=== PATIENT | male | born 1985 | race Caucasian/White ===

== ENCOUNTER → 2016-09-10 | Day surgery (SDC) | payer OTHER ==
[2016-09-06 10:55] VITALS: Ht 177.8 cm; Wt 72.5 kg
--- NOTE | 2016-09-06 11:32 | PAT Medication Instructions ---
Service Date Sep 06, 2016. Current Home Medication List Furosemide (Lasix), 20 MG PO DAILY PRN for EDEMA Insulin Lispro (Humalog), 0 SC AC PRN for SLIDING SCALE Insulin Nph (Humulin-N), 30 SC BID Lisinopril (Prinivil), 10 MG PO QAM Methadone Hcl (Dolophine), 55 MG PO DAILY Medication Instructions For Your Scheduled Surgery Methadone Hcl (Dolophine), 55 MG PO DAILY (check with prescribing physician for instructions) - Hold the following medications the morning of surgery: Furosemide (Lasix), 20 MG PO DAILY PRN for EDEMA Insulin Lispro (Humalog), 0 SC AC PRN for SLIDING SCALE Lisinopril (Prinivil), 10 MG PO QAM - Take the following medications as scheduled the night before surgery: Insulin Lispro (Humalog), 0 SC AC PRN for SLIDING SCALE - For Insulin Dependent Diabetic patients: Test blood sugar A.M. of surgery. - If Blood sugar greater than 150, take half of your regular dose of: Insulin Nph (Humulin-N), take 15 units - If Blood sugar less than 150, do not take any: Insulin Nph (Humulin-N) If you have any questions please call us at [phone] (Misa Grimm PA-C ) or [phone] or [phone]
[2016-09-06 12:12] LABS: MEAN CELL VOLUME 87.6 fL (80-100); MEAN CORPUSCULAR HEMOGLOBIN 29.7 pg (25-34); MEAN CORPUSCULAR HGB CONC 33.9 g/dl (32-36); MEAN PLATELET VOLUME 8.4 fL (7.4-10.4); PLATELET COUNT 236 K/uL (130-400); RED BLOOD COUNT 4.11 M/uL (4.7-6.1); WHITE BLOOD COUNT 6.77 K/uL (4.8-10.8)
[2016-09-06 12:35] LABS: ESTIMATED AVERAGE GLUCOSE 203 mg/dl; HA1C FLAG Normal (Normal)
[2016-09-06 12:42] LABS: BUN/CREATININE RATIO 12.5 (10-20); CALCIUM 9.2 mg/dl (8.5-10.1); CREATININE 1.9 mg/dl (0.60-1.40); POTASSIUM 4.7 mmol/L (3.5-5.1)
[~2016-09-10] VITALS: Ht 177.8 cm; Wt 72.5 kg
[~2016-09-10] MED LIST: 500ML BSSPLUS 0.5ML EPI1:1000 IRRIG ONE; ACET-1138 PO; ACETAMINOPHEN 325 MG TAB PO PRN; APR25 PO; ATROPINE SULFATE 0.1 MG/ML 5ML SYR IV PRN; ATROPINE SULFATE 1% OP OINT PER APPLICATION CHARGE ONE; BSS FLUSH ONE; BUPIVACAINE HCL 0.75% 10 ML AMP/VIAL ONE; CEFAZOLIN SOD 1 GM VIAL ONE; CRG625 PO; DEXAMETHASONE SOD INJ 4 MG/ML VIAL ONE; EpHEDrine SULFATE INJ 50 MG/ML AMP IV PRN; EpINEphrine INJ 1MG/ML AMP 1 MG/ML AMP ONE; FENTANYL CITRATE INJ 50 MCG/1 ML 2 ML VIAL IV PRN; FURO-85 PO; GLGKIT INJ; HMLI SC; HYALURONIDASE HUMAN 150 UNIT/ML INJ ONE; INDOCYANINE GREEN 25 MG/10 ML ONE; INSUINJ SC; LACTATED RINGER'S 1000ML 500 ML IV SCH; LIDOCAINE HCL 2% 2 ML VIAL (20MG/ML) ONE; LIDOCAINE MPF 4% INJ INJ ONE; LISI-461 PO; LISI5TAB PO; LSN40 PO; METH10TA2 PO; MIDAZOLAM HCL 1 MG/ML 2ML VIAL ONE; MRLP17 PO; NEOMYCIN/POLYMYX/DEXAMETH OP OINT PER APP CHARGE ONE; NRV/10 PO; OCUCOAT 1 ML SOLN IO ONE; ONDANSETRON INJ 2 MG/ML 2 ML VIAL IV PRN; ONDANSETRON INJ 2 MG/ML 2 ML VIAL ONE; PHENYLEPHRINE HCL INJ 10 MG/ML VIAL ONE; PROPARACAINE 0.5% OP SOLN PER DROP CHARGE OPL SCH; PROPARACAINE 0.5% OP SOLN PER DROP CHARGE OPR SCH; PROPOFOL IV EMULSION 10 MG/ML 20 ML VIAL IV ONE; TIMOLOL MALEATE 0.5% OP SOLN PER DROP CHARGE ONE; TRIAMCINOLONE ACETONIDE OPHTH 40 MG/ML VIAL STERILE IO ONE
[2016-09-10] MEDS: PHENYLEPHRINE HCL 2.5% OP SOLN PER DROP CHARGE OPL SCH ×2 (09:06→09:20)
[2016-09-10] MEDS: PHENYLEPHRINE HCL 2.5% OP SOLN PER DROP CHARGE OPR SCH ×2 (09:06→09:20)
[2016-09-10] MEDS: TROPICAMIDE 1% OP SOLN PER DROP CHARGE OPL SCH ×2 (09:09→09:22)
[2016-09-10] MEDS: TROPICAMIDE 1% OP SOLN PER DROP CHARGE OPR SCH ×2 (09:09→09:22)
--- NOTE | 2016-09-10 09:33 | History & Physical Bridge - SC ---
H&P Re-Evaluation Bridge Note: Pt has diabetic retinopathy in both eyes and is here for vitrectomy in left eye and laser in the right eye. I have examined the patient, reviewed the History & Physical and in the interval since the performance of the History & Physical I have noted the following changes of clinical significance: No changes noted
--- NOTE | 2016-09-10 11:32 | [facility] Operative Report ---
Operative Report Date of Service Sep 10, 2016. Operative Report PREOPERATIVE DIAGNOSIS: Diabetic retinopathy with vitreous hemorrhage, epiretinal membrane and diabetic macular edema, left eye. POSTOPERATIVE DIAGNOSIS: same. PROCEDURE: 1. Pars plana vitrectomy, 23 gauge. 2. Membrane peeling/ segmentation. 3. Endolaser. 4. Intravitreal Triescence. All to the left eye. CPT CODE: 00411 SURGEON: Burton Schroeder D.O. COMPLICATIONS: None. ESTIMATED BLOOD LOSS: None. SPECIMENS: None. ANESTHESIA: Retrobulbar block and LMA INDICATIONS FOR PROCEDURE: Surgery is indicated to decrease risk of vision loss and potentially improve vision. CONSENT: The risks, benefits and alternatives were discussed with the patient including but not limited to decreased visual acuity, failure to achieve desired results, loss of the eye, infection, pain, glaucoma, lens changes, retinal tears, retinal detachment, the need for more procedures, drooping of the eyelid, blindness, and double vision. The patient is aware of risks and consents to the surgery. Consent is signed and on the chart. OPERATION AND FINDINGS: The patient was brought to the operating room where the patient was identified by name, date, and medical record number. The surgical site was confirmed with the informed written consent. The patient was given general anesthesia by the anesthesiology team after which a 50:50 mixture of 4% lidocaine and 0.75% bupivacaine with hyaluronidase was administered in a standard retrobulbar fashion. A total of 4 ml was administered without difficulty.Attention was turned toward performing carr retinal photocoagulation to the right eye first with a laser indirect ophthalmoscope. See other dication for this. Next, attention was turned toward the left eye. The patient was then prepped and draped in the usual sterile manner for retinal surgery. A wire lid speculum was placed and an Stoney 23-gauge trocar cannula system was employed. The inferior temporal trocar cannula was first placed in an angled fashion 3.75mm posterior to the surgical limbus and the infusion cannula was inserted into this cannula after which the intravitreal position was verified prior to turning the infusion on. Two more trocar cannulas were then inserted in an angled fashion, one in the superior temporal, and one in the superior nasal quadrant both 3.75mm posterior to the surgical limbus. A light pipe and vitrector were then introduced into the eye and the BIOM wide angle viewing system was brought into place. Posterior inspection revealed severe proliferative diabetic retinopathy with fibrovascular membranes exerting traction on the macula. There was significant subhyaloid hemorrhage They were attached to the inferior temporal arcade and to the optic nerve. The vasculature was noted to be ischemic throughout most of the retina. Standard core vitrectomy was performed and all the vitreous attachments were peeled and segmented with the vitrector. The vitreous was insured to be totally detached from the posterior pole with the aid of the vitrector. Endocautery was used to stop bleeding on segmented fibrovascular stalks. Endolaser was used to perform fill-in carr retinal photocoagulation. At this point scleral depression was performed for 360 degrees and no retinal tears or detachments were noted. Intravitreal Triescence 2mg was injected into the eye and the trocar cannulas were then removed and a 8-0 vicryl suture was placed at the superior temporal site. All sclerotomy sites were noted to be watertight. The intraocular pressure was found to be within normal limits by palpation and subconjunctival injections of Kefzol and dexamethasone were administered inferiorly and superiorly. The wire lid speculum was removed. Maxitrol was applied to the surface of the eye. A light patch and shield were taped over the surface of the eye and the patient left the Operating Room in stable condition having tolerated the procedure well. DISPOSITION: The patient has an appointment the following morning in the Ophthalmology Clinic. The patient is to call immediately if there are any problems overnight. I attest to the content of the Intraoperative Record and any orders documented therein. Any exceptions are noted below.
--- NOTE | 2016-09-10 11:35 | [facility] Operative Report ---
Operative Report Date of Service Sep 10, 2016. Operative Report PREOPERATIVE DIAGNOSIS: Severe Diabetic retinopathy right eye. ICD10: E10.3411 POSTOPERATIVE DIAGNOSIS: same. PROCEDURE: 1. Carr retinal photocoagulation was performed with an indirect laser ophthalmoscope CPT 54663-32 SURGEON: Burton Schroeder D.O. COMPLICATIONS: None. ESTIMATED BLOOD LOSS: None. SPECIMENS: None. ANESTHESIA: Retrobulbar block and LMA INDICATIONS FOR PROCEDURE: Surgery is indicated to decrease risk of vision loss and potentially improve vision. CONSENT: The risks, benefits and alternatives were discussed with the patient including but not limited to decreased visual acuity, failure to achieve desired results, loss of the eye, infection, pain, glaucoma, lens changes, retinal tears, retinal detachment, the need for more procedures, drooping of the eyelid, blindness, and double vision. The patient is aware of risks and consents to the surgery. Consent is signed and on the chart. OPERATION AND FINDINGS: The patient was brought to the operating room where the patient was identified by name, date, and medical record number. The surgical site was confirmed with the informed written consent. The patient was given general anesthesia by the anesthesiology team. Attention was then turned toward performing carr retinal photocoagulation to the right eye with a laser indirect ophthalmoscope in the standard fashion. Next, attention was turned toward performing a vitrectomy on the left eye. See other dictation for details of this. The patient left the Operating Room in stable condition having tolerated the procedure well. DISPOSITION: The patient has an appointment the following morning in the Ophthalmology Clinic. The patient is to call immediately if there are any problems overnight. I attest to the content of the Intraoperative Record and any orders documented therein. Any exceptions are noted below.
--- NOTE | 2016-09-10 11:36 | Discharge Instructions-SurgCtr ---
Discharge Instructions Date of Service Sep 10, 2016. Visit Reason for Visit: Diabetic Retinopathy Discharge Discharge Diagnosis / Problem: diabetic retinopathy, both eyes Discharge Goals Goal(s): Improve function Activity Recommendations Activity Limitations: per Instructions/Follow-up section Anesthesia . Post Anesthesia Instructions: If you have had General Anesthesia or IV Sedation: * Do not drive today. * Resume driving when surgeon permits. * Do not make important decisions or sign legal documents today. * Call surgeon for: 1. Temperature elevations greater than 101 degrees F. 2. Uncontrollable pain. 3. Excessive bleeding. 4. Persistent nausea and vomiting. 5. Medication intolerance (nausea, vomiting or rash). * For nausea and vomiting use only clear liquids such as: tea, soda, bouillon until nausea subsides, then gradually increase diet as tolerated. * If you have any concerns or questions, call your surgeon's office. If physician is unavailable and it is an emergency, call 911 or go to the nearest emergency room. . Instructions / Follow-Up Instructions / Follow-Up * May take Tylenol if needed for discomfort. * Do NOT remove eye shield. * NO straining, heavy lifting (>15 pounds) or bending below waist. * Avoid getting water or soap directly into operative eye. * Do NOT rub eye. If you experience increasing eye pain not relieved by medication, please contact us immediately at [phone]. If you are unable to reach someone at the above number, call [phone] and ask to speak with the EYE DOCTOR TELEPHONE ENGINEER. Inform them that you are a Dr. Schroeder patient who had recent surgery. Diet Recommendations Home Diet: resume previous diet Procedures Procedures Performed: Left Eye Vitrectomy 23 Gauge; Right Eye Laser Pending Studies Studies pending at discharge: no Medical Emergencies . Who to Call and When: Medical Emergencies: If at any time you feel your situation is an emergency, please call 911 immediately. . Non-Emergent Contact Non-Emergency issues call your: Shaper Operator . . "Provider Documentation" section prepared by Burton Schroeder.
--- NOTE | 2016-09-10 12:18 | Anesthesia Progress Nt - [facility] ---
Anesthesia Post Op Note Date & Time Sep 10, 2016 at 12:17 Vital Signs Pain Intensity: 0 Vital Signs Past 12 Hours Date Time Temp Pulse Resp B/P Pulse Ox O2 Delivery O2 Flow Rate FiO2 09/10/16 11:37 36.3 84 20 156/107 100 Mask 6 09/10/16 08:51 36.8 93 20 163/108 98 Room Air Notes Mental Status: alert / awake / arousable, participated in evaluation Pt Amnestic to Procedure: Yes Nausea / Vomiting: adequately controlled Pain: adequately controlled Airway Patency, RR, SpO2: stable & adequate BP & HR: stable & adequate Hydration State: stable & adequate Anesthetic Complications: no major complications apparent please see attached anesthesia note
--- NOTE | 2016-09-10 12:26 | Anesthesiology Progress Note ---
Anesthesia Progress Note Date of Service Sep 10, 2016. Progress Notes Pt is s/p L eye vitrectomy and R eye laser. The pt had an uneventful rafaela- operative course. Upon emergence from anesthesia, the pt bit down on the LMA and soft bite block. This caused his tooth #9 to break. The tooth was saved. The pt had known poor dentition and a loose tooth. I spoke with the pt when he was more alert in PACU. He was aware of his poor dentition and stated that he had a dental consultation in a week to have his teeth pulled prior to receiving dentures. The pt was otherwise satisfied with his care today. Yoni Zhu was made aware of the situation and an event report was written up.
[2016-09-10 12:37] VITALS: TEMP 36.5
[2016-09-10 12:48] VITALS: BP 157/102; PULSE 74; O2SAT 100
== END | disposition home or self-care (01) ==
LOC: X.SURG 08:23
PROVIDERS: ATTEND Ophthalmology
DX: E10.3 Type 1 diabetes mellitus with ophthalmic complications (principal); I10 Essential (primary) hypertension; F17.210 Nicotine dependence, cigarettes, uncomplicated; Z82.49 Family history of ischemic heart disease and other diseases of the circulatory system; Z83.3 Family history of diabetes mellitus

== ENCOUNTER 2016-10-09 18:28 | Inpatient (IN) | payer OTHER ==
[~2016-10-09] VITALS: Ht 177.8 cm; Wt 70.6 kg
[~2016-10-09 18:28] MED LIST changes: -500ML BSSPLUS 0.5ML EPI1:1000 IRRIG ONE; -ACET-1138 PO; -ACETAMINOPHEN 325 MG TAB PO PRN; -APR25 PO; -ATROPINE SULFATE 0.1 MG/ML 5ML SYR IV PRN; -ATROPINE SULFATE 1% OP OINT PER APPLICATION CHARGE ONE; -BSS FLUSH ONE; -BUPIVACAINE HCL 0.75% 10 ML AMP/VIAL ONE; -CEFAZOLIN SOD 1 GM VIAL ONE; -CRG625 PO; -DEXAMETHASONE SOD INJ 4 MG/ML VIAL ONE; -EpHEDrine SULFATE INJ 50 MG/ML AMP IV PRN; -EpINEphrine INJ 1MG/ML AMP 1 MG/ML AMP ONE; -FENTANYL CITRATE INJ 50 MCG/1 ML 2 ML VIAL IV PRN; -GLGKIT INJ; -HYALURONIDASE HUMAN 150 UNIT/ML INJ ONE; -INDOCYANINE GREEN 25 MG/10 ML ONE; -LACTATED RINGER'S 1000ML 500 ML IV SCH; -LIDOCAINE HCL 2% 2 ML VIAL (20MG/ML) ONE; -LIDOCAINE MPF 4% INJ INJ ONE; -LISI-461 PO; -LSN40 PO; -MIDAZOLAM HCL 1 MG/ML 2ML VIAL ONE; -MRLP17 PO; -NEOMYCIN/POLYMYX/DEXAMETH OP OINT PER APP CHARGE ONE; -NRV/10 PO; -OCUCOAT 1 ML SOLN IO ONE; -ONDANSETRON INJ 2 MG/ML 2 ML VIAL IV PRN; -ONDANSETRON INJ 2 MG/ML 2 ML VIAL ONE; -PHENYLEPHRINE HCL INJ 10 MG/ML VIAL ONE; -PROPARACAINE 0.5% OP SOLN PER DROP CHARGE OPL SCH; -PROPARACAINE 0.5% OP SOLN PER DROP CHARGE OPR SCH; -PROPOFOL IV EMULSION 10 MG/ML 20 ML VIAL IV ONE; -TIMOLOL MALEATE 0.5% OP SOLN PER DROP CHARGE ONE; -TRIAMCINOLONE ACETONIDE OPHTH 40 MG/ML VIAL STERILE IO ONE
[2016-10-09] MEDS: DEXTROSE 50% 50 ML SYR ONE ×2 (18:50→19:00)
[2016-10-09] MEDS ORDERED: SODIUM CHLORIDE 0.9% 1000ML 1,000 ML IV STA ×2 (18:50)
[2016-10-09 19:00] LABS: HEMATOCRIT 34.8 % (42-52); MEAN CELL VOLUME 87.9 fL (80-100); MEAN CORPUSCULAR HEMOGLOBIN 30.6 pg (25-34); MEAN CORPUSCULAR HGB CONC 34.8 g/dl (32-36); MEAN PLATELET VOLUME 8.2 fL (7.4-10.4); PLATELET COUNT 264 K/uL (130-400); RED BLOOD COUNT 3.96 M/uL (4.7-6.1); WHITE BLOOD COUNT 11.88 K/uL (4.8-10.8)
--- NOTE | 2016-10-09 19:02 | EMERGENCY ROOM VISIT NOTE ---
History Report prepared by Judy: Ketan Brewer Under the Supervision of: Dr. Aspen Dillard M.D. First contact with patient: 18:45 Chief Complaint: URINARY SYMPTOMS Stated Complaint: FRONT/BACK PAIN, LEG BROWNING History of Present Illness The patient is a 31 year old male who presents to the Emergency Room with complaints of worsening urinary symptoms for the past month. The patient's girlfriend states that the patient has been complaining of back pain, abdominal pain, and urinary retention. She additionally states that the patient took his insulin prior to arrival, and he is diabetic. The patient states that he ate a sandwich for lunch earlier today. The girlfriend states that on arrival the patient became very sweaty, and he was not responding well. She states that the patient is not very good with his sugar medicine. The patient denies any recent sickness, urethral discharge, history of UTI, hematuria, and foot pain. The patient states that the skin over his stomach hurts to touch as well as the skin on his legs and shoulders. The patient states that he takes medication for opioid treatment. Source of History: patient, spouse/significant other Onset: past month Position: other (global) Quality: other (urinary symptoms) Timing: worsening Associated Symptoms: + abdominal pain, + back pain, + diaphoresis Review of Systems See HPI for pertinent positives & negatives. A total of 10 systems reviewed and were otherwise negative. Past Medical & Surgical Medical Problems: (1) ARF (acute renal failure) (2) Diabetes (3) HTN (hypertension) Family History Diabetes mellitus Hypertension Social History Smoking Status: Current Every Day Smoker Alcohol Use: none Drug Use: other Marital Status: in relationship Housing Status: lives with significant other Current/Historical Medications Scheduled Insulin Nph (Humulin-N), 30 SC BID Lisinopril (Prinivil), 10 MG PO QAM Methadone Hcl (Dolophine), 55 MG PO DAILY Scheduled PRN Furosemide (Lasix), 20 MG PO DAILY PRN for EDEMA Insulin Lispro (Humalog), 0 SC AC PRN for SLIDING SCALE Allergies Coded Allergies: No Known Allergies (Unverified , 10/09/16) Physical Exam Vital Signs Date Time Temp Pulse Resp B/P Pulse Ox O2 Delivery O2 Flow Rate FiO2 10/09/16 21:40 91 14 99 10/09/16 21:30 156/89 10/09/16 21:10 84 14 10/09/16 21:05 84 14 100 10/09/16 21:00 161/96 10/09/16 20:35 86 13 99 10/09/16 20:30 169/102 10/09/16 20:05 85 14 99 10/09/16 20:00 153/95 10/09/16 19:54 87 15 170/96 99 Room Air 10/09/16 19:52 170/96 10/09/16 19:07 86 10/09/16 19:05 85 13 100 10/09/16 19:00 170/99 10/09/16 18:58 86 15 100 10/09/16 18:57 84 20 153/98 99 Room Air 10/09/16 18:49 153/98 10/09/16 18:30 36.7 106 20 170/96 98 Room Air Physical Exam Vital signs reviewed. BG noted to be 21. General: Critically ill appearing, sweating, pale and altered. Noted to have a blood sugar of 23 on finger stick. HEENT: Moist mucous membranes. No scleral icterus, PERRLA, neck supple. Atraumatic. Cardiovascular: Regular rate and rhythm, no extra sounds. Pulmonary: Clear to auscultation bilaterally, normal work of breathing. Abdomen: Soft, nontender, nondistended, positive bowel sounds. Musculoskeletal: Atraumatic, no peripheral edema. Neurologic: Patient somnolent, minimally responsive. Answers some questions. Skin: Warm, dry, no rash Medical Decision & Procedures ER Provider Diagnostic Interpretation: Radiology results as stated below per my review and radiologist interpretation: CHEST ONE VIEW PORTABLE CLINICAL HISTORY: Back pain. Altered mental status. COMPARISON STUDY: Chest radiograph April 12, 2011. FINDINGS: Lung volumes are normal. Lungs are clear. There is no pneumothorax or pleural effusion. Cardiac size is normal. Mediastinal contours are normal. Pulmonary vascularity is normal. IMPRESSION: No acute cardiopulmonary findings. Electronically signed by: Yves Kilgore M.D. 10/09/2016 7:10 PM Dictated Date/Time: 10/09/2016 7:[address] OF THE ABDOMEN AND PELVIS WITHOUT CONTRAST CLINICAL HISTORY: Flank pain, urinary burning, IDDM. COMPARISON STUDY: No previous studies for comparison. TECHNIQUE: Axial images of the abdomen and pelvis were obtained without IV contrast. Images were reviewed in the axial, sagittal, and coronal planes. FINDINGS: Lung bases are clear. No renal, ureteral or bladder calculi are identified. There is no hydronephrosis or hydroureter. Evaluation the remainder of the abdomen and pelvis is suboptimal on this unenhanced exam. Unenhanced images of liver, spleen, adrenal glands and the pancreas are normal. There is no pneumatosis, free air or portal venous gas. There is a moderate amount of stool within the colon. There is no evidence for a bowel obstruction. The appendix is partially obscured but visualized portions are normal. There is no ascites. There is no lymphadenopathy or abscess. Skeletal structures are unremarkable. IMPRESSION: 1. No urinary calculi or hydronephrosis. 2. No acute process within the abdomen or pelvis although evaluation is suboptimal given the lack of contrast and paucity of intra-abdominal fat. 3. Moderate amount of stool within colon Electronically signed by: Yves Kilgore M.D. 10/09/2016 7:41 PM Laboratory Results Test 10/09/16 18:50 10/09/16 18:54 10/09/16 19:43 Magnesium Level 2.1 mg/dl (1.8-2.4) Total Bilirubin 0.2 mg/dl (0.2-1) Direct Bilirubin < 0.1 mg/dl (0-0.2) Aspartate Amino Transf (AST/SGOT) 28 U/L (15-37) Alanine Aminotransferase (ALT/SGPT) 43 U/L (12-78) Alkaline Phosphatase 90 U/L (45-117) Troponin I < 0.015 ng/ml (0-0.045) Total Protein 7.6 gm/dl (6.4-8.2) Albumin 3.8 gm/dl (3.4-5.0) Lipase 37 U/L (73-393) Bedside Hemoglobin 12.6 g/dl (14.0-18.0) Bedside Hematocrit 37 % (42-52) Bedside Sodium 143 mEq/L (135-144) Bedside Potassium 3.1 mEq/L (3.3-5.0) Bedside Chloride 105 mEq/L (101-112) Bedside Total CO2 25 mEq/l (24-31) Bedside Blood Urea Nitrogen 27 mg/dl (7-18) Bedside Creatinine 2.2 mg/dl (0.6-1.3) Bedside Glucose (other) < 20 mg/dl (70-99) Bedside Ionized Calcium (Liya) 1.20 mmol/l (1.12-1.32) Urine Color YELLOW Urine Appearance CLEAR (CLEAR) Urine pH 6.0 (4.5-7.5) Urine Specific [place] 1.014 (1.000-1.030) Urine Protein 3+ (NEG) Urine Glucose (UA) NEG (NEG) Urine Ketones NEG (NEG) Urine Occult Blood 1+ (NEG) Urine Nitrite NEG (NEG) Urine Bilirubin NEG (NEG) Urine Urobilinogen NEG (NEG) Urine Leukocyte Esterase NEG (NEG) Urine WBC (Auto) 0 /hpf (0-5) Urine RBC (Auto) 5-10 /hpf (0-4) Urine Hyaline Casts (Auto) 1-5 /lpf (0-5) Urine Epithelial Cells (Auto) 10-20 /lpf (0-5) Urine Bacteria (Auto) NEG (NEG) Laboratory results per my review. Medications Administered Medications (Trade) Dose Ordered Sig/Kody Route Start Time Stop Time Status Last Admin Dose Admin Dextrose 50 ml 50 ml STK-MED ONCE .ROUTE 10/09/16 18:46 10/09/16 18:47 DC 10/09/16 18:50 50 ML Sodium Chloride 1,000 ml @ 999 mls/hr Q1H1M STAT IV 10/09/16 18:50 10/09/16 19:50 DC 10/09/16 18:59 999 MLS/HR Sodium Chloride (Nss 1000ml) 1,000 ml @ 200 mls/hr Q5H STAT IV 10/09/16 18:50 10/09/16 21:16 DC 10/09/16 19:24 200 MLS/HR Potassium Chloride (Klor-Con M10) 40 meq STK-MED ONCE .ROUTE 10/09/16 21:30 10/09/16 21:31 DC 10/09/16 21:34 40 MEQ ECG Indication: other (urinary symptoms) Rate (beats per minute): 90 Findings: no acute ischemic change, no ectopy, other (Poor quality baseline for interpretation.) ED Course 1844: Past medical records reviewed. The patient was evaluated in room C2. A complete history and physical examination was performed. 1845: Dextrose 50% 50ml syringe IV 1850: Sodium Chloride 1000 ml @ 200 mls/hr IV, Sodium Chloride 1000 ml @ 999 mls /hr IV 2100: I reevaluated the patient, and he was resting. 2109: I discussed the patient's case with Dr. Holbrook. He is going to evaluate the patient for further treatment. Medical Decision Differential diagnosis: Etiologies such as metabolic, infection, hypoglycemia, electrolyte abnormalities , cardiac sources, intracerebral event, toxicologic, neurologic, UTI, pyelonephritis, appendicitis, as well as others were entertained. Pt was evaluated and appeared to be in no distress. IV access was obtained and lab work was drawn. Pt was given 1 amp of D50 with good results. He perked up and was able to respond appropriately. He is "good" at taking his insulin, but does not check his blood sugars. Pt is found to respond to IVF well. Pt creatinine is markedly elevated. CXR is clear. Abd pelvis CT is negative for acute inflammatory findings. He is noted to be slightly constipated, potentially accounting for his abd pain lately. Pt will be evaluated by the hospitalist service for admission and further management. Consults Time Called: 2107 Consulting Physician: Dr. Holbrook Returned Call: 2109 I discussed the patient's case with Dr. Holbrook. He is going to evaluate the patient for further treatment. Impression Primary Impression: Acute on chronic renal failure Additional Impressions: Poorly controlled diabetes mellitus Hypoglycemia Constipation Scribe Attestation The scribe's documentation has been prepared under my direction and personally reviewed by me in its entirety. I confirm that the note above accurately reflects all work, treatment, procedures, and medical decision making performed by me. Departure Information Dispostion Being Evaluated By Hospitalist Referrals No Doctor, Assigned (PCP) Patient Instructions My [facility] Problem Qualifiers
[2016-10-09 19:06] LABS: ISTAT CARBON DIOXIDE 25 mEq/l (24-31); ISTAT CHLORIDE 105 mEq/L (101-112); ISTAT CREATININE 2.2 mg/dl (0.6-1.3); ISTAT HEMATOCRIT 37 % (42-52); ISTAT HEMOGLOBIN 12.6 g/dl (14.0-18.0); ISTAT SODIUM 143 mEq/L (135-144)
--- NOTE | 2016-10-09 19:11 | DIAGNOSTIC IMAGING REPORT ---
CHEST ONE VIEW PORTABLE CLINICAL HISTORY: Back pain. Altered mental status. COMPARISON STUDY: Chest radiograph April 12, 2011. FINDINGS: Lung volumes are normal. Lungs are clear. There is no pneumothorax or pleural effusion. Cardiac size is normal. Mediastinal contours are normal. Pulmonary vascularity is normal. IMPRESSION: No acute cardiopulmonary findings. Electronically signed by: Yves Kilgore M.D. 10/09/2016 7:10 PM Dictated Date/Time: 10/09/2016 7:07 PM
[2016-10-09 19:21] LABS: BASO % 0.4 %; BASO ABS # 0.05 K/uL (0-0.2); COMPLETE YES; EOS % 3.1 %; IG% 0.2 %; LYMPH % 52.7 %; LYMPH ABS # 6.26 K/uL (1.2-3.4); MONO % 7.2 %; NEUT % 36.4 %
[2016-10-09 19:27] LABS: ALKALINE PHOSPHATASE 90 U/L (45-117); ALT/SGPT 43 U/L (12-78); AST/SGOT 28 U/L (15-37); BLOOD UREA NITROGEN 28 mg/dl (7-18); BUN/CREATININE RATIO 12.2 (10-20); CALCIUM 9.3 mg/dl (8.5-10.1); CARBON DIOXIDE 27 mmol/L (21-32); CHLORIDE 108 mmol/L (98-107); GLUCOSE 21 mg/dl (70-99); MAGNESIUM 2.1 mg/dl (1.8-2.4); POTASSIUM 3.2 mmol/L (3.5-5.1); SODIUM 144 mmol/L (136-145)
--- NOTE | 2016-10-09 19:42 | DIAGNOSTIC IMAGING REPORT ---
CT OF THE ABDOMEN AND PELVIS WITHOUT CONTRAST CLINICAL HISTORY: Flank pain, urinary burning, IDDM. COMPARISON STUDY: No previous studies for comparison. TECHNIQUE: Axial images of the abdomen and pelvis were obtained without IV contrast. Images were reviewed in the axial, sagittal, and coronal planes. FINDINGS: Lung bases are clear. No renal, ureteral or bladder calculi are identified. There is no hydronephrosis or hydroureter. Evaluation the remainder of the abdomen and pelvis is suboptimal on this unenhanced exam. Unenhanced images of liver, spleen, adrenal glands and the pancreas are normal. There is no pneumatosis, free air or portal venous gas. There is a moderate amount of stool within the colon. There is no evidence for a bowel obstruction. The appendix is partially obscured but visualized portions are normal. There is no ascites. There is no lymphadenopathy or abscess. Skeletal structures are unremarkable. IMPRESSION: 1. No urinary calculi or hydronephrosis. 2. No acute process within the abdomen or pelvis although evaluation is suboptimal given the lack of contrast and paucity of intra-abdominal fat. 3. Moderate amount of stool within colon Electronically signed by: Yves Kilgore M.D. 10/09/2016 7:41 PM Dictated Date/Time: 10/09/2016 7:35 PM
[2016-10-09 20:21] LABS: MANUAL MICROSCOPIC REQUIRED? NO; REVIEW REQ? NO; URINE APPEARANCE CLEAR (CLEAR); URINE BILIRUBIN NEG (NEG); URINE COLOR YELLOW; URINE NITRITE NEG (NEG); URINE SPECIFIC GRAVITY 1.014 (1.000-1.030); UROBILINOGEN NEG (NEG); ZZUR CULT IF INDIC CLEAN CATCH NO
[2016-10-09] MEDS ORDERED: POTASSIUM CHLORIDE 10 MEQ TABCR PO STA (21:14)
[2016-10-09] MEDS ORDERED: LACTATED RINGER'S 1000ML 1,000 ML IV SCH (21:15)
[2016-10-09] MEDS ORDERED: POTASSIUM CHLORIDE 10 MEQ TABCR ONE (21:30)
[2016-10-09] MEDS ORDERED: IV FLUIDS COMPLETED PRN (22:15)
[2016-10-09] MEDS ORDERED: GLUCOSE 40% GEL 15 GM TUBE PO PRN (22:30)
[2016-10-09] MEDS ORDERED: ACETAMINOPHEN 325 MG TAB PO PRN (22:30)
[2016-10-09] MEDS ORDERED: GLUCOSE 10 TABS/TUBE PO PRN (22:30)
[2016-10-09] MEDS ORDERED: LACTATED RINGER'S 1000ML 1,000 ML IV ONE (22:30)
[2016-10-09] MEDS ORDERED: ONDANSETRON INJ 2 MG/ML 2 ML VIAL IV PRN (22:30)
[2016-10-09] MEDS ORDERED: GLUCAGON FOR INJ 1 MG VIAL SQ PRN (22:30)
[2016-10-09] MEDS ORDERED: DEXTROSE 50% 50 ML SYR IV PRN (22:30)
[2016-10-09] MEDS ORDERED: AMLODIPINE BESYLATE 5 MG TAB PO STA (22:46)
[2016-10-09] MEDS ORDERED: DOCUSATE SODIUM 100 MG CAP PO STA (22:47)
[2016-10-09 23:23] VITALS: BP 198/112; PULSE 85
[2016-10-09 23:28] VITALS: BP 198/114; PULSE 88; TEMP 36.6; O2SAT 99; Ht 177.8 cm; Wt 70.6 kg
[2016-10-10] VITALS (7 sets, daily range): BP systolic 159–200; BP diastolic 89–118; PULSE 76–91; TEMP 36.5–36.8; O2SAT 96–99
[2016-10-10] MEDS: METHADONE HCL 10 MG TAB PO SCH (05:12)
[2016-10-10] MEDS ORDERED: AMLODIPINE BESYLATE 5 MG TAB PO ONE (05:20)
[2016-10-10 05:58] LABS: BASO % 0.6 %; BASO ABS # 0.04 K/uL (0-0.2); COMPLETE YES; EOS % 3.2 %; HEMATOCRIT 32.9 % (42-52); IG% 0.2 %; LYMPH ABS # 2.38 K/uL (1.2-3.4); MEAN CELL VOLUME 88.4 fL (80-100); MEAN CORPUSCULAR HEMOGLOBIN 30.1 pg (25-34); MEAN PLATELET VOLUME 8.4 fL (7.4-10.4); MONO % 10.2 %; NEUT % 47.8 %; PLATELET COUNT 202 K/uL (130-400); RED BLOOD COUNT 3.72 M/uL (4.7-6.1); WHITE BLOOD COUNT 6.27 K/uL (4.8-10.8)
[2016-10-10 06:48] LABS: BUN/CREATININE RATIO 12.6 (10-20); CALCIUM 8.7 mg/dl (8.5-10.1); CREATININE 1.9 mg/dl (0.60-1.40); FERRITIN 100.9 ng/ml (8.0-388.0); POTASSIUM 4.1 mmol/L (3.5-5.1)
--- NOTE | 2016-10-10 07:48 | HISTORY & PHYSICAL EXAMINATION ---
DATE OF ADMISSION: 10/09/2016 PRIMARY CARE DOCTOR: Dr. Dianelys Hu obtained from px and records. HISTORY OF PRESENT ILLNESS: Medical history is significant for DM type 1 , hypertension, ongoing tobacco abuse, chronic pain currently on methadone, chronic anemia (hemoglobin of 12 from August 2016). PX diagnosed to have DM1 at age 5. Home BSGs the last week 100-300s. Patient had retinal surgery in both eyes on same day surgery last month. Preop hemoglobin noted to be 12.2, hemoglobin A1c 8.7 and creatinine of 1.9. Patient claims he was never made aware of the abnormal results of testing. In last few days appetite has not been the best. In the last month, patient was complaining of vague generalized achy abdominal discomfort, irregular bowel movements, sometimes constipated and some low back pain. No radiation to the legs. Leg cramps noted. On the way to the Emergency Room, the patient noted he felt sweaty and weak, which he usually feels when his sugar is low. No cp, no sob. Compliant with home insulin. No recent changes with insulin regimen. Denies depression. At the Emergency Room, blood sugar was in 20s; the patient given glucose. MEDICAL HISTORY: As above. SURGERIES: Eye surgery. HOME MEDICATIONS: Include; furosemide, lisinopril, methadone, Humalog, insulin NPH. ALLERGIES: No known drug allergies. FAMILY HISTORY: Diabetes. PERSONAL AND SOCIAL HISTORY: half-pack daily. 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 REVIEW OF SYSTEMS: As per HPI, all other ROS negative. PHYSICAL EXAMINATION: VITAL SIGNS: Blood pressure was noted to be 169/102, pulse rate 86, RR 13, temperature 36.7 and sats 98 on room air. GENERAL: Slightly anxious, uncomfortable, in no respiratory distress, looks older for stated age. SKIN: Pallor. HEENT: Pale palpebral conjunctivae. Dry mucosa. NECK: No JVD. Supple. CHEST: Clear to auscultation. HEART: Regular rate and rhythm. ABDOMEN: Some distention, no overt tenderness. BACK : Some tenderness in low back. Negative straight leg raise test. EXTREMITIES : No edema, no tenderness NEUROLOGIC: No gross focality. LABORATORIES: Hemoglobin was noted to be 12.1, hematocrit 34.1, white cell count 11.88 and platelets 264. Sodium noted to be 140 potassium 3.2, chloride 108, CO2 was noted to be 27, BUN 20, creatinine 2.8, glucose 21 trop 0. N LFTs, low lipase Hemoglobin A1c from August [address] abdomen and pelvis; moderate amount of stool. Chest x-ray; no acute process UA; ketones negative, occult blood +1, WBC 0, hyaline casts 1-5. Protein +3 ASSESSMENT: 1. Acute renal failure on possible chronic renal insufficiency probable DM nephropathy. 2. DM1 suboptimal control as of recent HgA1c. Hypoglycemic upon arrival at the ER w/ px attributes to poor appetite the last few days 3. non-specific abdominal pain for one month possibly from opioid related hx chronic pain on methadone. 4. low back pain from strain 5. Hypertensive urgency 2 to pain, anxiety. 6. Anemia, possibly chronic from chronic kidney disease. 7. Ongoing tobacco abuse. 8. LE pain poss DM neuropathy ro DVT PLAN: Observation GMF Monitor creatinine response to IV fluids. Hold home BANDAR inhibitor and Lasix for until creatinine at baseline. Nephrology consult for ARF, possible CKD. initiate Norvasc for blood pressure control. Lower extremity venous Dopplers ro DVT Continue basal insulin at decreased dose until hypoglycemia is resolved. ISS BG goal 140-180 May need to recheck hemoglobin A1c if w/ persistent hypoglycemia. Nicotine patch. DVT prophylaxis, SCDs. Full code. PX interested in switching to a new PCP at [facility] upon discharge. TOBIND
[2016-10-10] MEDS ORDERED: INSULIN HUMAN NPH SC SCH ×4 (08:00→21:00)
[2016-10-10] MEDS: DOCUSATE SODIUM 100 MG CAP PO SCH (08:14)
[2016-10-10] MEDS: INSULIN ASPART 100 UNITS/ML 3 ML PEN SC SCH ×4 (08:14→21:15)
[2016-10-10] MEDS: NICOTINE 14 MG/24 HR TDSY TD SCH (08:14)
[2016-10-10] MEDS ORDERED: AMLODIPINE BESYLATE 5 MG TAB PO SCH (09:00)
[2016-10-10] MEDS ORDERED: METHADONE HCL 10 MG TAB PO SCH (09:00)
--- NOTE | 2016-10-10 12:14 | NEPHROLOGY CONSULTATION ---
DATE OF CONSULTATION: 10/10/2016 ATTENDING OF RECORD: Dr. Holbrook. REASON FOR CONSULTATION: Elevated creatinine. HISTORY OF PRESENT ILLNESS: This is a 31-year-old male with type 1 diabetes since age 5 with diabetic retinopathy as well as hypertension for the past year, which has not been well controlled and active tobacco use with a history of IV drug use in the past, currently on methadone, who has been dealing with back pain, radiating to the front, which he gets on a daily basis, intensity at dull ache that lasts for several hours. He has also been dealing with chronic constipation issues as well. The patient has not felt well for the past 6 weeks. He lives in [place] and comes in for pain management and found to have a hemoglobin level of 12.1. Creatinine 2.3, which has improved to 1.9 this morning. UA shows a pH of 6, protein of 3+, 1+ blood, and 5-[address] shows no hydronephrosis, no kidney stones, and moderate amount of stool within the colon. Blood pressures have been significantly elevated and it was 156/89 and went to 198/112, 200/118 and 164/100. Currently getting lactated Ringer's at 75 mL an hour and Norvasc 10 mg a day. REVIEW OF SYSTEMS: No fevers or chills. No headaches and no blurry vision. Did have some recent eye surgery though for diabetic retinopathy. No rash or itching. Chronic intermittent back pain, radiating to the front. No chest pain or shortness of breath. No swelling. Positive constipation. Good appetite. All other review of systems otherwise negative. CURRENT MEDICATIONS: Norvasc 10 mg a day, Colace 100 mg daily, Nicoderm patch daily, NPH 15 units subQ b.i.d., methadone 55 mg daily, and lactated Ringer's 75 mL an hour. PAST MEDICAL HISTORY: Hypertension, type 1 diabetes, active tobacco use, and chronic pain, on methadone. PAST SURGICAL HISTORY: Eye surgery. FAMILY HISTORY: Significant for diabetes. SOCIAL HISTORY: Half pack a day smoker. Social alcohol. No drugs. He did have a history of IV drug use in the past. Currently on methadone. 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 PHYSICAL EXAMINATION: VITAL SIGNS: Temperature 36.8, pulse 82, respiratory rate 16, blood pressure is 164/100, and satting 98% on room air. GENERAL: Awake, alert, and oriented x3. EYES: No scleral icterus. ENT: Moist mucous membranes. NECK: Supple. PULMONARY: Clear to auscultation. CARDIAC: Regular rate and rhythm. ABDOMEN: Bowel sounds positive. Soft, nontender, and nondistended. EXTREMITIES: No clubbing, cyanosis or edema. NEUROLOGICALLY: Nonfocal. BACK: Does complain of right-sided back pain, radiating to the front. LABORATORY DATA: Sodium level was 140, potassium 4.1, chloride is 107, bicarb is 29, BUN is 24, creatinine is 1.9, glucose 187, and calcium is 8.7. B12 is 379. White count 6, H\T\H 11 and 32, and platelet count is 202. UA with 5-10 RBCs with 1+ blood with a CT scan that shows no hydronephrosis or kidney stones. A chest x-ray that shows no acute cardiopulmonary findings. IMPRESSION AND PLAN: Elevated Creatinine with unclear baseline: Elevated creatinine of 2.3 that has improved to 1.9 with fluids with underlying diabetes and hypertension and active tobacco use. Question if the patient is having an element of chronic kidney disease or is this acute. There was a creatinine of 1.7 in August of this year prior to eye surgery and the patient states that his blood pressures have been elevated for the past two months. Hypertension: Lisinopril has been held. Currently working on trying to control blood pressures better on Norvasc 10 mg a day and we will add Coreg 6.25 mg p.o. b.i.d. and add lisinopril as an outpatient again once we have established baseline kidney function. Hematuria: The patient does have blood in the urine, so would like to check serologies, SPEP, SOCORRO, ANCA, C3, C4, and anti-double stranded DNA and will need a followup as an outpatient from this. May have a glomerulonephritis. Overall would recommend stopping tobacco use. We will work on trying to control blood pressure better and rule out other etiologies for elevated creatinine in the setting of high blood pressure, diabetes, and active tobacco use with blood in the urine. Appreciate consultation. HERNÁN
[2016-10-10 12:15] LABS: ESTIMATED AVERAGE GLUCOSE 163 mg/dl; HA1C FLAG Normal (Normal)
[2016-10-10] MEDS: CARVEDILOL 6.25 MG TAB PO SCH ×2 (12:43→21:08)
[2016-10-10 15:14] LABS: URINE PROTIEN/CREAT RATIO 6.9 (0-0.2); URINE TOTAL PROTEIN 249.3 mg/dl (0-11.9)
[2016-10-10] MEDS ORDERED: POLYETHYLENE (MIRALAX) 17 GM PACK PO ONE (18:45)
--- NOTE | 2016-10-10 19:53 | Progress Note ---
Medicine Progress Note Date & Time of Visit: October 10, 2016 at 13:30 . Subjective Admitted last night with abdominal pain, acute kidney injury, fluctuating blood sugars. Feels better today. No chest pain. No cough or SOB. No nausea or vomiting. No BM today. . Objective Last 8 Hrs Date Time Temp Pulse Resp B/P Pulse Ox O2 Delivery O2 Flow Rate FiO2 10/10/16 16:00 Room Air 10/10/16 15:33 36.5 76 16 162/102 99 Room Air Physical Exam: General- no distress Eyes- anicteric Lungs- clear Heart- RRR Abdomen- + BS, soft, nontender Extremities- no pretibial edema or calf tenderness Neuro- alert . Laboratory Results: Last 24 Hours Test 10/09/16 22:20 10/10/16 05:28 10/10/16 07:31 10/10/16 11:08 Bedside Glucose 73 mg/dl 193 mg/dl White Blood Count 6.27 K/uL Red Blood Count 3.72 M/uL Hemoglobin 11.2 g/dL Hematocrit 32.9 % Mean Corpuscular Volume 88.4 fL Mean Corpuscular Hemoglobin 30.1 pg Mean Corpuscular Hemoglobin Concent 34.0 g/dl Platelet Count 202 K/uL Mean Platelet Volume 8.4 fL Neutrophils (%) (Auto) 47.8 % Lymphocytes (%) (Auto) 38.0 % Monocytes (%) (Auto) 10.2 % Eosinophils (%) (Auto) 3.2 % Basophils (%) (Auto) 0.6 % Neutrophils # (Auto) 3.00 K/uL Lymphocytes # (Auto) 2.38 K/uL Monocytes # (Auto) 0.64 K/uL Eosinophils # (Auto) 0.20 K/uL Basophils # (Auto) 0.04 K/uL RDW Standard Deviation 39.8 fL RDW Coefficient of Variation 12.3 % Immature Granulocyte % (Auto) 0.2 % Immature Granulocyte # (Auto) 0.01 K/uL Absolute Reticulocyte Count 0.07 10^6/uL Percent Reticulocyte Count 1.8 % Sodium Level 140 mmol/L Potassium Level 4.1 mmol/L Chloride Level 107 mmol/L Carbon Dioxide Level 29 mmol/L Anion Gap 4.0 mmol/L Blood Urea Nitrogen 24 mg/dl Creatinine 1.90 mg/dl Est Creatinine Clear Calc Drug Dose 55.2 ml/min Estimated GFR () 52.5 Estimated GFR (Non- 45.3 BUN/Creatinine Ratio 12.6 Random Glucose 187 mg/dl Calcium Level 8.7 mg/dl Iron Level 61 mcg/dl Total Iron Binding Capacity 257 mcg/dl Transferrin 218 mg/dl Transferrin % Saturation 20 % Ferritin 100.9 ng/ml Vitamin B12 Level 379 pg/mL Folate 9.09 ng/mL Estimated Average Glucose 163 mg/dl Hemoglobin A1c 7.3 % 25-Hydroxy Vitamin D Total 10.0 ng/ml Parathyroid Hormone (Intact) 81.1 pg/mL Hepatitis B Surface Antigen NEG Hepatitis C Antibody PRELIM POS HIV (1&2) Ab and P24 Ag, 4th Gener NEG Test 10/10/16 11:34 10/10/16 14:17 10/10/16 16:30 Bedside Glucose 292 mg/dl 251 mg/dl Urine Random Creatinine 36.0 mg/dl Urine Random Total Protein 249.3 mg/dl Urine Protein/Creatinine Ratio 6.9 Assessment & Plan ACUTE KIDNEY INJURY Serum creatinine 2.3 at time of admission. Received IV fluids. Serum creatinine today = 1.9. No renal calculi or hydronephrosis per CT. DM and NSAID use may be contributing factors. Nephrology consulted. ABDOMINAL PAIN CT negative except for moderate amount of stool. Improved. DM TYPE 1 / HYPOGLYCEMIA Blood sugar in ED 21. Hgb A1C = 7.3. Titrate insulin. HYPOKALEMIA Serum K 3.2. Received replacement. K today = 4.1. Follow. CHRONIC PAIN Continue usual dose of methadone. VTE PROPHYLAXIS SCD's. Ambualate. DISPOSITION Expected discharge to home. . Current Inpatient Medications: Current Inpatient Medications Medications (Trade) Dose Ordered Sig/Kody Route Start Time Stop Time Status Last Admin Dose Admin Miscellaneous (Iv Fluids Completed) 1 ea PRN PRN N/A 10/09/16 22:15 10/09/17 22:14 10/10/16 13:22 1 EA Acetaminophen (Tylenol Tab) 650 mg Q6H PRN PO 10/09/16 22:30 11/08/16 22:29 Insulin Aspart (novoLOG ASPART) SLIDING SCALE If C... ACHS SC 10/10/16 06:30 11/09/16 06:59 10/10/16 18:13 2 UNITS Glucose (Glucose 40% Gel) 15-30 GRAMS 15 GRAMS... UD PRN PO 10/09/16 22:30 11/08/16 22:29 Glucose (Glucose Chew Tab) 4-8 Tablets 4 Tabl... UD PRN PO 10/09/16 22:30 11/08/16 22:29 Dextrose (Dextrose 50% 50ML Syringe) 25-50ML OF 50% DW IV FOR... UD PRN IV 10/09/16 22:30 11/08/16 22:29 Glucagon (Glucagon Inj) 1 mg UD PRN SQ 10/09/16 22:30 11/08/16 22:29 Docusate Sodium (coLACE CAP) 100 mg DAILY PO 10/10/16 09:00 11/09/16 08:59 10/10/16 08:14 100 MG Ondansetron HCl (Zofran Inj) 4 mg Q6H PRN IV 10/09/16 22:30 11/08/16 22:29 Nicotine (Nicoderm Cq 14MG Patch) 1 patch QAM TD 10/10/16 09:00 11/09/16 08:59 Miscellaneous (Remove Nicoderm Patch) 1 ea HS N/A 10/10/16 21:00 11/09/16 20:59 Methadone HCl (Dolophine Tab) 55 mg DAILY@0500 PO 10/10/16 05:00 10/24/16 04:59 10/10/16 05:12 55 MG Insulin Human NPH (novoLIN-N NPH) 15 units BID SC 10/10/16 09:00 11/09/16 08:59 10/10/16 08:12 15 UNITS Amlodipine Besylate (Norvasc Tab) 10 mg QAM PO 10/11/16 09:00 11/10/16 08:59 Carvedilol (Coreg Tab) 6.25 mg BID PO 10/10/16 11:30 11/09/16 11:29 10/10/16 12:43 6.25 MG Polyethylene (Miralax Powder Packet) 17 gm BID PRN PO 10/10/16 18:45 11/09/16 18:44
[2016-10-11] MEDS: METHADONE HCL 10 MG TAB PO SCH (04:47)
[2016-10-11 04:51] VITALS: BP 178/94; PULSE 79
--- NOTE | 2016-10-11 06:28 | DIAGNOSTIC IMAGING REPORT ---
ULTRASOUND VENOUS DOPPLER LWR EXT BILA CLINICAL HISTORY: Bilateral leg pain COMPARISON STUDY: No previous studies for comparison. FINDINGS: Real-time and color flow Doppler imaging were performed. Flow was seen within the femoral, popliteal and calf veins with no intraluminal thrombus demonstrated. The saphenous vein is patent. IMPRESSION: No evidence of lower extremity DVT. Electronically signed by: Vincenzo Israel M.D. 10/11/2016 6:27 AM Dictated Date/Time: 10/11/2016 6:27 AM
--- NOTE | 2016-10-11 06:48 | DIAGNOSTIC IMAGING REPORT ---
RENAL ARTERY DUPLEX ULTRASOUND CLINICAL HISTORY: Refractory hypertension COMPARISON STUDY: No previous studies for comparison. FINDINGS: The right kidney measures 9.6 cm in length. Left kidney measures 11 cm in length. The peak systolic velocity within the right renal artery is 76 cm/s. The peak systolic velocity within the aorta is 140 cm/s. Peak systolic velocity within the left renal artery is 55 cm/s. There are bilateral echogenic foci within the kidney suspicious for nephrolithiasis. There is a sludge-filled gallbladder. IMPRESSION: 1. No evidence of renal artery stenosis by velocity criteria 2. Suspected bilateral nephrolithiasis 3. Sludge-filled gallbladder Electronically signed by: Vincenzo Israel M.D. 10/11/2016 6:47 AM Dictated Date/Time: 10/11/2016 6:45 AM
[2016-10-11 07:07] VITALS: BP 160/102; PULSE 85; TEMP 36.7; O2SAT 99
[2016-10-11 07:44] LABS: BUN/CREATININE RATIO 13.7 (10-20); CALCIUM 9.3 mg/dl (8.5-10.1); CREATININE 1.8 mg/dl (0.60-1.40); POTASSIUM 4.5 mmol/L (3.5-5.1)
[2016-10-11] MEDS: NICOTINE 14 MG/24 HR TDSY TD SCH (09:00)
[2016-10-11] MEDS ORDERED: METHADONE HCL 10 MG TAB PO ONE (09:00)
[2016-10-11] MEDS: DOCUSATE SODIUM 100 MG CAP PO SCH (09:10)
[2016-10-11] MEDS: AMLODIPINE BESYLATE 5 MG TAB PO SCH (09:10)
[2016-10-11] MEDS: LISINOPRIL 40 MG TAB PO SCH (09:11)
[2016-10-11] MEDS: CARVEDILOL 6.25 MG TAB PO SCH ×2 (09:11→20:33)
[2016-10-11] MEDS: POLYETHYLENE (MIRALAX) 17 GM PACK PO PRN ×2 (09:15→18:44)
[2016-10-11] MEDS: INSULIN ASPART 100 UNITS/ML 3 ML PEN SC SCH ×4 (09:22→20:34)
[2016-10-11] MEDS: INSULIN HUMAN NPH SC SCH ×2 (09:23→17:31)
[2016-10-11 15:22] VITALS: BP 164/113; PULSE 78; TEMP 36.4; O2SAT 100
--- NOTE | 2016-10-11 15:34 | Nephrology Progress Note ---
Nephrology Progress Note Date of Service: October 11, 2016. Subjective 31 yo male with hypertensive urgency, TRESSA, hep c ab positive, nephrotic range proteinuria. pt feels good today. relatively asymptomatic. no headaches. pt has noticed bubbles in his urine for quite some time. erratic blood sugars. Objective Date Time Temp Pulse Resp B/P Pulse Ox O2 Delivery O2 Flow Rate FiO2 10/11/16 15:22 36.4 78 18 164/113 100 Room Air 10/11/16 10:14 Room Air 10/11/16 07:07 36.7 85 20 160/102 99 Room Air 10/11/16 04:51 79 178/94 10/11/16 00:00 Room Air 10/10/16 23:30 36.7 78 16 159/89 98 Room Air 10/10/16 21:26 80 185/113 184/113 10/10/16 16:00 Room Air 10/10/16 15:33 36.5 76 16 162/102 99 Room Air Physical Exam: General-aaox3 Eyes-no scleral icterus ENT-mmm Neck-supple Lungs-cta Heart-rrr Abdomen-bs+ s/nt/nd Extremities-no c/c/e Neuro-nonfocal Current Inpatient Medications Medications (Trade) Dose Ordered Sig/Kody Route Start Time Stop Time Status Last Admin Dose Admin Miscellaneous (Iv Fluids Completed) 1 ea PRN PRN N/A 10/09/16 22:15 10/09/17 22:14 10/10/16 13:22 1 EA Acetaminophen (Tylenol Tab) 650 mg Q6H PRN PO 10/09/16 22:30 11/08/16 22:29 10/10/16 21:21 650 MG Insulin Aspart (novoLOG ASPART) SLIDING SCALE If C... ACHS SC 10/10/16 06:30 11/10/16 06:29 10/11/16 12:49 4 UNITS Glucose (Glucose 40% Gel) 15-30 GRAMS 15 GRAMS... UD PRN PO 10/09/16 22:30 11/08/16 22:29 Glucose (Glucose Chew Tab) 4-8 Tablets 4 Tabl... UD PRN PO 10/09/16 22:30 11/08/16 22:29 Dextrose (Dextrose 50% 50ML Syringe) 25-50ML OF 50% DW IV FOR... UD PRN IV 10/09/16 22:30 11/08/16 22:29 Glucagon (Glucagon Inj) 1 mg UD PRN SQ 10/09/16 22:30 11/08/16 22:29 Docusate Sodium (coLACE CAP) 100 mg DAILY PO 10/10/16 09:00 11/09/16 08:59 10/11/16 09:10 100 MG Ondansetron HCl (Zofran Inj) 4 mg Q6H PRN IV 10/09/16 22:30 11/08/16 22:29 Nicotine (Nicoderm Cq 14MG Patch) 1 patch QAM TD 10/10/16 09:00 11/09/16 08:59 Miscellaneous (Remove Nicoderm Patch) 1 ea HS N/A 10/10/16 21:00 11/09/16 20:59 Methadone HCl (Dolophine Tab) 55 mg DAILY@0500 PO 10/10/16 05:00 10/24/16 04:59 10/11/16 04:47 55 MG Amlodipine Besylate (Norvasc Tab) 10 mg QAM PO 10/11/16 09:00 11/10/16 08:59 10/11/16 09:10 10 MG Carvedilol (Coreg Tab) 6.25 mg BID PO 10/10/16 11:30 11/09/16 11:29 10/11/16 09:11 6.25 MG Polyethylene (Miralax Powder Packet) 17 gm BID PRN PO 10/10/16 18:45 11/09/16 18:44 10/11/16 09:15 17 GM Lisinopril (Zestril Tab) 40 mg QAM PO 10/11/16 09:00 11/10/16 08:59 10/11/16 09:11 40 MG Insulin Human NPH (novoLIN-N NPH) 15 units BIDM SC 10/11/16 09:00 11/10/16 08:59 10/11/16 09:23 15 UNITS Last 24 Hours Test 10/10/16 16:30 10/10/16 19:59 10/11/16 06:44 10/11/16 07:26 Bedside Glucose 251 mg/dl 328 mg/dl 61 mg/dl Sodium Level 142 mmol/L Potassium Level 4.5 mmol/L Chloride Level 108 mmol/L Carbon Dioxide Level 28 mmol/L Anion Gap 6.0 mmol/L Blood Urea Nitrogen 25 mg/dl Creatinine 1.80 mg/dl Est Creatinine Clear Calc Drug Dose 58.3 ml/min Estimated GFR () 56.1 Estimated GFR (Non- 48.4 BUN/Creatinine Ratio 13.7 Random Glucose 43 mg/dl Calcium Level 9.3 mg/dl Test 10/11/16 07:35 10/11/16 08:24 10/11/16 11:23 Bedside Glucose 128 mg/dl 279 mg/dl Assessment & Plan TRESSA-nephrotic range proteinuria with underlying diabetes and hypertensive urgency. no renal artery stenosis. on iv fluids to millwright helper in renal recovery although likely with an element of ckd. does have rbcs in the urine which may be from the hypertensive urgency although checking serologies to be thorough. checking eddy, anca, complements, anti-ds dna. spep. hep c ab is positive, waiting for confirmatory testing. HTN: goal bp is under 130/80. pt is on lisinopril 40, norvasc 10, coreg 6.25mg po bid. will add hydralazine 25mg po bid. Would like to hold on renal biopsy for now till bp is under better control and then will see if he is still having blood in the urine and if nephrotic range proteinuria improves at all.
[2016-10-11] MEDS ORDERED: HydrALAZINE HCL 20 MG/ML VIAL IV. PRN (15:45)
[2016-10-11] MEDS ORDERED: NURSING VERBAL MED ORDER ONE (16:00)
[2016-10-11 18:13] VITALS: BP 133/81; PULSE 83
[2016-10-11 20:30] VITALS: BP 157/89; PULSE 81
--- NOTE | 2016-10-11 21:54 | Progress Note ---
Medicine Progress Note Date & Time of Visit: October 11, 2016 at ~ 18:50 . Subjective Hypoglycemic this morning. BP's as high as 164/113. No chest pain or SOB. No N/V. No BM. . Objective Last 8 Hrs Date Time Temp Pulse Resp B/P Pulse Ox O2 Delivery O2 Flow Rate FiO2 10/11/16 20:30 81 157/89 10/11/16 18:13 83 133/81 10/11/16 16:00 Room Air 10/11/16 15:22 36.4 78 18 164/113 100 Room Air Physical Exam: General- no distress Eyes- anicteric Lungs- clear Heart- RRR, S4 Abdomen- + BS, slightly distended, soft, nontender Extremities- no pretibial edema or calf tenderness Neuro- alert . Laboratory Results: Last 24 Hours Test 10/11/16 00:00 10/11/16 06:44 10/11/16 07:26 10/11/16 07:35 Stool Occult Blood NEGATIVE Sodium Level 142 mmol/L Potassium Level 4.5 mmol/L Chloride Level 108 mmol/L Carbon Dioxide Level 28 mmol/L Anion Gap 6.0 mmol/L Blood Urea Nitrogen 25 mg/dl Creatinine 1.80 mg/dl Est Creatinine Clear Calc Drug Dose 58.3 ml/min Estimated GFR () 56.1 Estimated GFR (Non- 48.4 BUN/Creatinine Ratio 13.7 Random Glucose 43 mg/dl Calcium Level 9.3 mg/dl Bedside Glucose 61 mg/dl Test 10/11/16 08:24 10/11/16 11:23 10/11/16 16:23 10/11/16 20:28 Bedside Glucose 128 mg/dl 279 mg/dl 92 mg/dl 151 mg/dl Assessment & Plan ACUTE KIDNEY INJURY Serum creatinine 2.3 at time of admission. Received IV fluids. Serum creatinine today = 1.8. No renal calculi or hydronephrosis per CT. DM and NSAID use may be contributing factors. Nephrology consulted. HYPERTENSIVE URGENCY BP as high as 164/113. Meds being adjusted. ABDOMINAL PAIN CT negative except for moderate amount of stool. Resolved. DM TYPE 1 / HYPOGLYCEMIA Blood sugar in ED 21. Hgb A1C = 7.3. Blood sugar 43 this morning. Titrate insulin. HYPOKALEMIA Serum K as low as 3.2. Received replacement. K today = 4.5. Follow. CHRONIC PAIN Continue usual dose of methadone (65 mg daily). VTE PROPHYLAXIS SCD's. Ambualate. DISPOSITION Expected discharge to home. Changed from OBS to inpatient status due to hypoglycemia and hypertensive urgency. . Current Inpatient Medications: Current Inpatient Medications Medications (Trade) Dose Ordered Sig/Kody Route Start Time Stop Time Status Last Admin Dose Admin Miscellaneous (Iv Fluids Completed) 1 ea PRN PRN N/A 10/09/16 22:15 10/09/17 22:14 10/10/16 13:22 1 EA Acetaminophen (Tylenol Tab) 650 mg Q6H PRN PO 10/09/16 22:30 11/08/16 22:29 10/10/16 21:21 650 MG Insulin Aspart (novoLOG ASPART) SLIDING SCALE If C... ACHS SC 10/10/16 06:30 11/10/16 06:29 10/11/16 17:29 1 UNITS Glucose (Glucose 40% Gel) 15-30 GRAMS 15 GRAMS... UD PRN PO 10/09/16 22:30 11/08/16 22:29 Glucose (Glucose Chew Tab) 4-8 Tablets 4 Tabl... UD PRN PO 10/09/16 22:30 11/08/16 22:29 Dextrose (Dextrose 50% 50ML Syringe) 25-50ML OF 50% DW IV FOR... UD PRN IV 10/09/16 22:30 11/08/16 22:29 Glucagon (Glucagon Inj) 1 mg UD PRN SQ 10/09/16 22:30 11/08/16 22:29 Docusate Sodium (coLACE CAP) 100 mg DAILY PO 10/10/16 09:00 11/09/16 08:59 10/11/16 09:10 100 MG Ondansetron HCl (Zofran Inj) 4 mg Q6H PRN IV 10/09/16 22:30 11/08/16 22:29 Nicotine (Nicoderm Cq 14MG Patch) 1 patch QAM TD 10/10/16 09:00 11/09/16 08:59 Miscellaneous (Remove Nicoderm Patch) 1 ea HS N/A 10/10/16 21:00 11/09/16 20:59 Methadone HCl (Dolophine Tab) 55 mg DAILY@0500 PO 10/10/16 05:00 10/24/16 04:59 10/11/16 04:47 55 MG Amlodipine Besylate (Norvasc Tab) 10 mg QAM PO 10/11/16 09:00 11/10/16 08:59 10/11/16 09:10 10 MG Carvedilol (Coreg Tab) 6.25 mg BID PO 10/10/16 11:30 11/09/16 11:29 10/11/16 20:33 6.25 MG Polyethylene (Miralax Powder Packet) 17 gm BID PRN PO 10/10/16 18:45 11/09/16 18:44 10/11/16 18:44 17 GM Lisinopril (Zestril Tab) 40 mg QAM PO 10/11/16 09:00 11/10/16 08:59 10/11/16 09:11 40 MG Insulin Human NPH (novoLIN-N NPH) 15 units BIDM SC 10/11/16 09:00 11/10/16 08:59 10/11/16 17:31 15 UNITS Hydralazine HCl (Apresoline Tab) 25 mg BID PO 10/11/16 21:00 11/10/16 20:59 10/11/16 20:33 25 MG Hydralazine HCl (HydrALAZINE INJ) 10 mg Q6 PRN IV. 10/11/16 15:45 11/10/16 15:44
[2016-10-11 23:19] VITALS: BP 125/79; PULSE 77; TEMP 36.7; O2SAT 99
[2016-10-12] MEDS: METHADONE HCL 10 MG TAB PO SCH (05:18)
[2016-10-12 06:29] LABS: BUN/CREATININE RATIO 15.3 (10-20); CALCIUM 9.4 mg/dl (8.5-10.1); CREATININE 2.1 mg/dl (0.60-1.40); POTASSIUM 4.6 mmol/L (3.5-5.1)
[2016-10-12 07:18] VITALS: BP_SYST 173; BP_SYST 179; BP_DIAS 112; BP_DIAS 77; PULSE 84; TEMP 36.6; O2SAT 99
[2016-10-12] MEDS ORDERED: METHADONE HCL 10 MG TAB PO ONE (07:30)
[2016-10-12] MEDS: LISINOPRIL 40 MG TAB PO SCH (07:49)
[2016-10-12] MEDS: DOCUSATE SODIUM 100 MG CAP PO SCH (07:49)
[2016-10-12] MEDS: CARVEDILOL 6.25 MG TAB PO SCH (07:49)
[2016-10-12] MEDS: AMLODIPINE BESYLATE 5 MG TAB PO SCH (07:49)
[2016-10-12] MEDS: NICOTINE 14 MG/24 HR TDSY TD SCH (07:50)
--- NOTE | 2016-10-12 07:53 | Nephrology Progress Note ---
Nephrology Progress Note Date of Service: October 12, 2016. Subjective 31 yo male with hypertensive urgency, ckd stage 3 with creatinine not improved with iv fluids, prelim hep c ab positive-confirmatory viral load pending, nephrotic range proteinuria/hematuria. has had low blood sugars in the hospital. pt says he only takes the nph at home. pt chews tobacco but is going to quit smoking altogether. Objective Date Time Temp Pulse Resp B/P Pulse Ox O2 Delivery O2 Flow Rate FiO2 10/12/16 07:18 36.6 84 18 179/112 99 Room Air 173/77 10/12/16 00:05 Room Air 10/11/16 23:19 36.7 77 20 125/79 99 Room Air 10/11/16 20:30 81 157/89 10/11/16 18:13 83 133/81 10/11/16 16:00 Room Air 10/11/16 15:22 36.4 78 18 164/113 100 Room Air 10/11/16 10:14 Room Air Physical Exam: General-aaox3 Eyes-no scleral icterus ENT-mmm Neck-supple Lungs-clear Heart-regular Abdomen-bs+ s/nt/nd Extremities-no c/c/e Neuro-nonfocal Current Inpatient Medications Medications (Trade) Dose Ordered Sig/Kody Route Start Time Stop Time Status Last Admin Dose Admin Miscellaneous (Iv Fluids Completed) 1 ea PRN PRN N/A 10/09/16 22:15 10/09/17 22:14 10/10/16 13:22 1 EA Acetaminophen (Tylenol Tab) 650 mg Q6H PRN PO 10/09/16 22:30 11/08/16 22:29 10/10/16 21:21 650 MG Insulin Aspart (novoLOG ASPART) SLIDING SCALE If C... ACHS SC 10/10/16 06:30 11/10/16 06:29 10/11/16 17:29 1 UNITS Glucose (Glucose 40% Gel) 15-30 GRAMS 15 GRAMS... UD PRN PO 10/09/16 22:30 11/08/16 22:29 Glucose (Glucose Chew Tab) 4-8 Tablets 4 Tabl... UD PRN PO 10/09/16 22:30 11/08/16 22:29 Dextrose (Dextrose 50% 50ML Syringe) 25-50ML OF 50% DW IV FOR... UD PRN IV 10/09/16 22:30 11/08/16 22:29 Glucagon (Glucagon Inj) 1 mg UD PRN SQ 10/09/16 22:30 11/08/16 22:29 Docusate Sodium (coLACE CAP) 100 mg DAILY PO 10/10/16 09:00 11/09/16 08:59 10/11/16 09:10 100 MG Ondansetron HCl (Zofran Inj) 4 mg Q6H PRN IV 10/09/16 22:30 11/08/16 22:29 Nicotine (Nicoderm Cq 14MG Patch) 1 patch QAM TD 10/10/16 09:00 11/09/16 08:59 Miscellaneous (Remove Nicoderm Patch) 1 ea HS N/A 10/10/16 21:00 11/09/16 20:59 Amlodipine Besylate (Norvasc Tab) 10 mg QAM PO 10/11/16 09:00 11/10/16 08:59 10/11/16 09:10 10 MG Carvedilol (Coreg Tab) 6.25 mg BID PO 10/10/16 11:30 11/09/16 11:29 10/11/16 20:33 6.25 MG Polyethylene (Miralax Powder Packet) 17 gm BID PRN PO 10/10/16 18:45 11/09/16 18:44 10/11/16 18:44 17 GM Lisinopril (Zestril Tab) 40 mg QAM PO 10/11/16 09:00 11/10/16 08:59 10/11/16 09:11 40 MG Insulin Human NPH (novoLIN-N NPH) 15 units BIDM SC 10/11/16 09:00 11/10/16 08:59 10/11/16 17:31 15 UNITS Hydralazine HCl (Apresoline Tab) 25 mg BID PO 10/11/16 21:00 11/10/16 20:59 10/11/16 20:33 25 MG Hydralazine HCl (HydrALAZINE INJ) 10 mg Q6 PRN IV. 10/11/16 15:45 11/10/16 15:44 Methadone HCl (Dolophine Tab) 65 mg DAILY@0500 PO 10/13/16 05:00 10/27/16 04:59 Last 24 Hours Test 10/11/16 08:24 10/11/16 11:23 10/11/16 16:23 10/11/16 20:28 Bedside Glucose 128 mg/dl 279 mg/dl 92 mg/dl 151 mg/dl Test 10/12/16 05:12 10/12/16 05:58 10/12/16 06:48 Sodium Level 140 mmol/L Potassium Level 4.6 mmol/L Chloride Level 104 mmol/L Carbon Dioxide Level 31 mmol/L Anion Gap 5.0 mmol/L Blood Urea Nitrogen 32 mg/dl Creatinine 2.10 mg/dl Est Creatinine Clear Calc Drug Dose 50.0 ml/min Estimated GFR () 46.5 Estimated GFR (Non- 40.1 BUN/Creatinine Ratio 15.3 Random Glucose 49 mg/dl Calcium Level 9.4 mg/dl Bedside Glucose 70 mg/dl 196 mg/dl Assessment & Plan TRESSA-nephrotic range proteinuria with underlying diabetes and hypertensive urgency. no renal artery stenosis. creatinine up to 2.1 today and likely has element of ckd now. focus in on diabetes and bp control. quit smoking. HTN: goal bp is under 130/80. pt is on lisinopril 40, norvasc 10, coreg 6.25mg po bid, hydralazine 25mg po bid. hesitant to increase bp meds further. would like to have the meds build up in his system and have close follow up with me in [place]. once bp is under better control, will see if proteinuria has improved. if still nephrotic, will discuss doing a renal biopsy to confirm this is from htn and diabetes and not fsgs. GI-hep c prelim is positive. awaiting confirmatory viral load testing and if positive, will need GI evaluation. lfts are normal. if positive, could have a GN from hep c. ok from renal perspective to go home today and pt to obtain home bp cuff and check it at home about two hours after morning meds while at rest. bring in home readings and bp cuff to the office.
[2016-10-12] MEDS: INSULIN ASPART 100 UNITS/ML 3 ML PEN SC SCH ×3 (08:22→17:33)
[2016-10-12] MEDS: INSULIN HUMAN NPH SC SCH ×2 (08:23→17:33)
[2016-10-12 11:42] VITALS: BP_SYST 149; BP_SYST 155; BP_DIAS 103; BP_DIAS 97; PULSE 65; TEMP 36.8; O2SAT 98
[2016-10-12] MEDS ORDERED: NURSING VERBAL MED ORDER ONE (13:45)
[2016-10-12] MEDS ORDERED: INSULIN ASPART 100 UNITS/ML 3 ML PEN SC ONE (13:45)
[2016-10-12 15:06] VITALS: BP 132/90; PULSE 85; TEMP 36.5; O2SAT 100
--- NOTE | 2016-10-12 17:55 | Progress Note ---
Medicine Progress Note Date & Time of Visit: October 12, 2016 at ~ 16;30 . Subjective Hypoglycemic early this morning, then hyperglycemic before lunch. Patient indicates that his routine is off schedule hear in the hospital; he is also much less active. Blood pressures under better control. He would like to go home. . Objective Last 8 Hrs Date Time Temp Pulse Resp B/P Pulse Ox O2 Delivery O2 Flow Rate FiO2 10/12/16 15:06 36.5 85 18 132/90 100 10/12/16 11:42 36.8 65 20 155/97 98 2.0 149/103 Physical Exam: General- no distress Neuro- alert . Laboratory Results: Last 24 Hours Test 10/11/16 20:28 10/12/16 05:12 10/12/16 05:20 10/12/16 05:58 Bedside Glucose 151 mg/dl 53 mg/dl 70 mg/dl Sodium Level 140 mmol/L Potassium Level 4.6 mmol/L Chloride Level 104 mmol/L Carbon Dioxide Level 31 mmol/L Anion Gap 5.0 mmol/L Blood Urea Nitrogen 32 mg/dl Creatinine 2.10 mg/dl Est Creatinine Clear Calc Drug Dose 50.0 ml/min Estimated GFR () 46.5 Estimated GFR (Non- 40.1 BUN/Creatinine Ratio 15.3 Random Glucose 49 mg/dl Calcium Level 9.4 mg/dl Test 10/12/16 06:48 10/12/16 11:11 10/12/16 12:56 10/12/16 15:39 Bedside Glucose 196 mg/dl 411 mg/dl 454 mg/dl 48 mg/dl Test 10/12/16 16:42 Bedside Glucose 111 mg/dl Assessment & Plan ACUTE KIDNEY INJURY Serum creatinine 2.3 at time of admission. Received IV fluids. No hydronephrosis per CT. Duplex renal arteries did not show any apparent renovascular disease. Serum creatinine today = 1.1. No renal calculi or hydronephrosis per CT. DM and NSAID use may be contributing factors. Nephrology consulted. HYPERTENSIVE URGENCY BP as high as 164/113. Meds adjusted. BP 132/90 day of discharge. Discharge on lisinopril 40 mg daily, amlodipine 10 mg daily, hydralazine 25 mg BID, carvedilol 6.25 mg BID. Patient to purchase BP cuff to monitor BP's at home. ABDOMINAL PAIN CT negative except for moderate amount of stool. Resolved. DM TYPE 1 / HYPOGLYCEMIA Blood sugar in ED 21. Hgb A1C = 7.3. Blood sugar fluctuating. Patient states that hypoglycemia in ED was unusual for him- he missed a meal and took his NovoLog. He feels that he will be able to control his blood sugars better at home with his usual routine. Given Rx for glucagon kit. HYPOKALEMIA Serum K as low as 3.2. Received replacement. K today = 4.6. Follow. CHRONIC PAIN [place] Prescription Drug Monitoring Program database queried- no concerns. Advised to avoid NSAID's. Continue usual dose of methadone (65 mg daily). HEPATITIS C SCREENING Hepatitis C screen positive. LFT's normal. PCR pending. Will need GI referral if PCR +. VTE PROPHYLAXIS SCD's. Ambulating. DISPOSITION Discharge to home. Medical follow-up with Dr. Ivory. Nephrology follow-up with Dr. Zamora. Endocrinology follow-up with Dr. Yarbrough. Pain management follow-up with [facility]. . Consultants: Nephrology with Dr. Zamora. . Procedures: IV fluids US kidneys CT abdomen + pelvis venous duplex lower extremities . Current Inpatient Medications: Current Inpatient Medications Medications (Trade) Dose Ordered Sig/Kody Route Start Time Stop Time Status Last Admin Dose Admin Miscellaneous (Iv Fluids Completed) 1 ea PRN PRN N/A 10/09/16 22:15 10/09/17 22:14 10/10/16 13:22 1 EA Acetaminophen (Tylenol Tab) 650 mg Q6H PRN PO 10/09/16 22:30 11/08/16 22:29 10/10/16 21:21 650 MG Insulin Aspart (novoLOG ASPART) SLIDING SCALE If C... ACHS SC 10/10/16 06:30 11/10/16 06:29 10/12/16 17:33 1 UNITS Glucose (Glucose 40% Gel) 15-30 GRAMS 15 GRAMS... UD PRN PO 10/09/16 22:30 11/08/16 22:29 Glucose (Glucose Chew Tab) 4-8 Tablets 4 Tabl... UD PRN PO 10/09/16 22:30 11/08/16 22:29 Dextrose (Dextrose 50% 50ML Syringe) 25-50ML OF 50% DW IV FOR... UD PRN IV 10/09/16 22:30 11/08/16 22:29 Glucagon (Glucagon Inj) 1 mg UD PRN SQ 10/09/16 22:30 11/08/16 22:29 Docusate Sodium (coLACE CAP) 100 mg DAILY PO 10/10/16 09:00 11/09/16 08:59 10/12/16 07:49 100 MG Ondansetron HCl (Zofran Inj) 4 mg Q6H PRN IV 10/09/16 22:30 11/08/16 22:29 Nicotine (Nicoderm Cq 14MG Patch) 1 patch QAM TD 10/10/16 09:00 11/09/16 08:59 Miscellaneous (Remove Nicoderm Patch) 1 ea HS N/A 10/10/16 21:00 11/09/16 20:59 Amlodipine Besylate (Norvasc Tab) 10 mg QAM PO 10/11/16 09:00 11/10/16 08:59 10/12/16 07:49 10 MG Carvedilol (Coreg Tab) 6.25 mg BID PO 10/10/16 11:30 11/09/16 11:29 10/12/16 07:49 6.25 MG Polyethylene (Miralax Powder Packet) 17 gm BID PRN PO 10/10/16 18:45 11/09/16 18:44 10/11/16 18:44 17 GM Lisinopril (Zestril Tab) 40 mg QAM PO 10/11/16 09:00 11/10/16 08:59 10/12/16 07:49 40 MG Insulin Human NPH (novoLIN-N NPH) 15 units BIDM SC 10/11/16 09:00 11/10/16 08:59 10/12/16 17:33 15 UNITS Hydralazine HCl (Apresoline Tab) 25 mg BID PO 10/11/16 21:00 11/10/16 20:59 10/12/16 07:50 25 MG Hydralazine HCl (HydrALAZINE INJ) 10 mg Q6 PRN IV. 10/11/16 15:45 11/10/16 15:44 Methadone HCl (Dolophine Tab) 65 mg DAILY@0500 PO 10/13/16 05:00 10/27/16 04:59
[2016-10-12] MEDS ORDERED: LISI-461 PO (17:58)
[2016-10-12] MEDS ORDERED: MRLP17 PO (18:06)
[2016-10-12] MEDS ORDERED: APR25 PO (18:06)
[2016-10-12] MEDS ORDERED: CRG625 PO (18:06)
[2016-10-12] MEDS ORDERED: LSN40 PO (18:06)
[2016-10-12] MEDS ORDERED: NRV/10 PO (18:06)
[2016-10-12] MEDS ORDERED: ACET-1138 PO (18:18)
[2016-10-12] MEDS ORDERED: GLGKIT INJ (18:18)
--- NOTE | 2016-10-12 18:18 | Discharge Instructions ---
Discharge Instructions Date of Service October 12, 2016. Admission Reason for Admission: abdominal pain, low blood sugar, worsening kidney function Discharge Discharge Diagnosis / Problem: abdominal pain, low blood sugar, worsening kidney function Discharge Goals Goal(s): Improve function, Improve disease control Activity Recommendations Activity Limitations: resume your previous activity . Instructions / Follow-Up Instructions / Follow-Up APPOINTMENTS NEPHROLOGY Dr. Noah Mitchell [place] Office 10/16/16 at 11:[address] Yarbrough PAIN MANAGEMENT [facility] PRIMARY CARE Dr. Ivory INSTRUCTIONS Anti-inflammatory medications like ibuprofen (Advil, Motrin) and naproxen (Aleve ) can be rough on the kidneys. Best to avoid them. Take Extra Strength Tylenol instead for pain- 1 or 2 pills, 3 times a day as needed, no more than 6 pills a day. Your blood pressure was running high. Please get a blood pressure cuff so that you can check you blood pressures at home. Check them every morning about 2 hours after you take your morning meds and keep a record for Dr. Zamora to review. New blood pressure medications: lisinopril (Prinivil) 40 mg daily amlodipine (Norvasc) 10 mg daily hydralazine (Apresoline) 25 mg twice a day carvedilol (Coreg) 6.25 mg twice a day. You are having problems with constipation. Try MiraLax twice a day to keep your bowels moving. Taper methadone as able. Seek medical attention if you have: * temperature above 101 * chest pain or trouble breathing * abdominal pain, nausea, vomiting * diarrhea, dark stools or bloody stools * any unanswered questions or concerns Call 911 if symptoms are severe. Call if you have any questions or problems. My cell # is [phone]. You can also reach a [facility] hospitalist on duty at [facility] 24 hours a day by calling [phone]. Please take good care of yourself. Beto Marcial . . Current Hospital Diet Patient's current hospital diet: Diabetes Type 1 Diet Discharge Diet Recommended Diet: AHA Diet (Heart Healthy), Diabetes Type 1 Diet Pending Studies Studies pending at discharge: yes List of pending studies: hepatitis C test call if you haven't been notified by 10/16 Laboratory Results Hemoglobin A1c Test 10/10/16 11:08 Range/Units Estimated Average Glucose 163 mg/dl Hemoglobin A1c 7.3 H 4.5-5.6 % Medical Emergencies . Who to Call and When: Medical Emergencies: If at any time you feel your situation is an emergency, please call 911 immediately. . Non-Emergent Contact Non-Emergency issues call your: Primary Care Provider, Child Development Consultant, Specialist (Marshmallow Runner) . . "Provider Documentation" section prepared by Beto Marcial. . VTE Core Measure Inpt VTE Proph given/why not?: SCD's
[2016-10-12 18:45] VITALS: BP 132/90; PULSE 85; TEMP 36.5; O2SAT 100
--- NOTE | 2016-10-12 20:45 | Discharge Summary ---
Discharge Summary Date of Service October 12, 2016. Discharge Summary Admission Date: October 11, 2016 at 15:40 Discharge Date: October 12, 2016 Discharge Disposition: Home Principal Diagnosis: acute kidney injury Other Acute Medical Problems: DM type 1 with severe hypoglycemia abdominal pain hypertensive urgency . Secondary Diagnoses/Problems: Chronic Medical Problems: (1) Chronic pain syndrome Status: Chronic (2) Diabetes mellitus type I Status: Chronic (3) Hypertension Status: Chronic . Procedures: IV fluids US kidneys CT abdomen + pelvis venous duplex lower extremities . Consultations: Nephrology with Dr. Carrero . Pending Studies/Follow-Up: hepatitis C PCR . Medication Reconciliation New Medications: Acetaminophen (Tylenol Extra Strength) 500 Mg Tab 1-2 TAB PO TID PRN for Pain, #60 TAB No prescription necessary. Do not take more than 6 pills as day. Amlodipine Besylate (Amlodipine Besylate) 10 Mg Tab 10 MG PO DAILY, #30 TAB 5 Refills Carvedilol (Carvedilol) 6.25 Mg Tab 6.25 MG PO BID, #60 TAB 5 Refills Glucagon (Glucagon Emergency Kit) 1 Mg Kit 1 DOSE INJ UD, #1 KIT 1 Refill Give as needed if blood sugars are very low and unable to take glucose or other carbs by mouth. Hydralazine Hcl (Apresoline) 25 Mg Tab 25 MG PO BID, #60 TAB 5 Refills Lisinopril (Lisinopril) 40 Mg Tab 40 MG PO DAILY, #30 TAB 5 Refills Polyethylene (Miralax) 17 Gm Pow 1 DOSE PO BID, #1 CAN For constipation. No prescription necessary. Follow instructions on container. Continued Medications: Furosemide (Lasix) 20 Mg Tab 20 MG PO DAILY PRN for EDEMA, TAB Insulin Lispro (Humalog) Inj 0 SC AC PRN for SLIDING SCALE, VIAL Insulin Nph (Humulin-N) Susp 30 SC BID, VIAL Methadone Hcl (Dolophine) 10 Mg Tab 65 MG PO DAILY, TAB Discontinued Medications: Lisinopril (Lisinopril) 10 Mg Tab 10 MG PO DAILY Admission Information HPI (per Admitting provider): Medical history is significant for DM type 1 , hypertension, ongoing tobacco abuse, chronic pain currently on methadone, chronic anemia (hemoglobin of 12 from August 2016). PX diagnosed to have DM1 at age 5. Home BSGs the last week 100-300s. Patient had retinal surgery in both eyes on same day surgery last month. Preop hemoglobin noted to be 12.2, hemoglobin A1c 8.7 and creatinine of 1.9. Patient claims he was never made aware of the abnormal results of testing. In last few days appetite has not been the best. In the last month, patient was complaining of vague generalized achy abdominal discomfort, irregular bowel movements, sometimes constipated and some low back pain. No radiation to the legs. Leg cramps noted. On the way to the Emergency Room, the patient noted he felt sweaty and weak, which he usually feels when his sugar is low. No cp, no sob. Compliant with home insulin. No recent changes with insulin regimen. Denies depression. At the Emergency Room, blood sugar was in 20s; the patient given glucose. . Physical Exam (per Admitting): VITAL SIGNS: Blood pressure was noted to be 169/102, pulse rate 86, RR 13, temperature 36.7 and sats 98 on room air. GENERAL: Slightly anxious, uncomfortable, in no respiratory distress, looks older for stated age. SKIN: Pallor. HEENT: Pale palpebral conjunctivae. Dry mucosa. NECK: No JVD. Supple. CHEST: Clear to auscultation. HEART: Regular rate and rhythm. ABDOMEN: Some distention, no overt tenderness. BACK : Some tenderness in low back. Negative straight leg raise test. EXTREMITIES : No edema, no tenderness NEUROLOGIC: No gross focality. . Hospital Course ACUTE KIDNEY INJURY Serum creatinine 2.3 at time of admission. Received IV fluids. No hydronephrosis per CT. Duplex renal arteries did not show any apparent renovascular disease. Serum creatinine today = 1.1. No renal calculi or hydronephrosis per CT. DM and NSAID use may be contributing factors. Nephrology consulted. HYPERTENSIVE URGENCY BP as high as 164/113. Meds adjusted. BP 132/90 day of discharge. Discharge on lisinopril 40 mg daily, amlodipine 10 mg daily, hydralazine 25 mg BID, carvedilol 6.25 mg BID. Patient to purchase BP cuff to monitor BP's at home. ABDOMINAL PAIN CT negative except for moderate amount of stool. Resolved. DM TYPE 1 / HYPOGLYCEMIA Blood sugar in ED 21. Hgb A1C = 7.3. Blood sugar fluctuating. Patient states that hypoglycemia in ED was unusual for him- he missed a meal and took his NovoLog. He feels that he will be able to control his blood sugars better at home with his usual routine. Given Rx for glucagon kit. HYPOKALEMIA Serum K as low as 3.2. Received replacement. K today = 4.6. Follow. CHRONIC PAIN [place] Prescription Drug Monitoring Program database queried- no concerns. Advised to avoid NSAID's. Continue usual dose of methadone (65 mg daily). HEPATITIS C SCREENING Hepatitis C screen positive. LFT's normal. PCR pending. Will need GI referral if PCR +. VTE PROPHYLAXIS SCD's. Ambulating. DISPOSITION Discharge to home. Medical follow-up with Dr. Ivory. Nephrology follow-up with Dr. Zamora. Endocrinology follow-up with Dr. Yarbrough. Pain management follow-up with [facility]. . Total time spent on discharge = 25 min. This includes examination of the patient, discharge planning, medication reconciliation, and communication with other providers. . Discharge Instructions Date of Service October 12, 2016. Admission Reason for Admission: abdominal pain, low blood sugar, worsening kidney function Discharge Discharge Diagnosis / Problem: abdominal pain, low blood sugar, worsening kidney function Discharge Goals Goal(s): Improve function, Improve disease control Activity Recommendations Activity Limitations: resume your previous activity . Instructions / Follow-Up Instructions / Follow-Up APPOINTMENTS NEPHROLOGY Dr. Zamora [facility] Office 10/16/16 at 11:[address] Yarbrough PAIN MANAGEMENT [facility] PRIMARY CARE Dr. Ivory INSTRUCTIONS Anti-inflammatory medications like ibuprofen (Advil, Motrin) and naproxen (Aleve ) can be rough on the kidneys. Best to avoid them. Take Extra Strength Tylenol instead for pain- 1 or 2 pills, 3 times a day as needed, no more than 6 pills a day. Your blood pressure was running high. Please get a blood pressure cuff so that you can check you blood pressures at home. Check them every morning about 2 hours after you take your morning meds and keep a record for Dr. Zamora to review. New blood pressure medications: lisinopril (Prinivil) 40 mg daily amlodipine (Norvasc) 10 mg daily hydralazine (Apresoline) 25 mg twice a day carvedilol (Coreg) 6.25 mg twice a day. You are having problems with constipation. Try MiraLax twice a day to keep your bowels moving. Taper methadone as able. Seek medical attention if you have: * temperature above 101 * chest pain or trouble breathing * abdominal pain, nausea, vomiting * diarrhea, dark stools or bloody stools * any unanswered questions or concerns Call 911 if symptoms are severe. Call if you have any questions or problems. My cell # is [phone]. You can also reach a [facility] hospitalist on duty at [facility] 24 hours a day by calling [phone]. Please take good care of yourself. Beto Marcial . . Current Hospital Diet Patient's current hospital diet: Diabetes Type 1 Diet Discharge Diet Recommended Diet: AHA Diet (Heart Healthy), Diabetes Type 1 Diet Pending Studies Studies pending at discharge: yes List of pending studies: hepatitis C test call if you haven't been notified by 10/16 Laboratory Results Hemoglobin A1c Test 10/10/16 11:08 Range/Units Estimated Average Glucose 163 mg/dl Hemoglobin A1c 7.3 H 4.5-5.6 % Medical Emergencies . Who to Call and When: Medical Emergencies: If at any time you feel your situation is an emergency, please call 911 immediately. . Non-Emergent Contact Non-Emergency issues call your: Primary Care Provider, Oncology Coordinator, Specialist (Right Of Way Agent) . . "Provider Documentation" section prepared by Beto Marcial. . VTE Core Measure Inpt VTE Proph given/why not?: SCD's . Additional Copies To Daly Ivory M.D.; Brandon Zamora I., DO; Eric Yarbrough M.D.
[2016-10-12 22:29] LABS: TOTAL PROTEIN 7.2 G/DL (6.2-8.3)
[2016-10-13] MEDS ORDERED: METHADONE HCL 10 MG TAB PO SCH (05:00)
[2016-10-14 08:33] LABS: HEPATITIS C RNA TMA QUAL Detected
[2016-10-15 19:30] LABS: CATECH EPINEPHRINE 62 pg/mL; CATECH NOREPINEPRHINE 616 pg/mL
--- NOTE | 2016-10-15 19:52 | Progress Note ---
Progress Note Date of Service October 15, 2016. Progress Note Hep C screen 10/10 was positive. PCR confirmation positive as well. Patient notified by phone. Arrangements will be made for outpatient GI follow-up. .
== END 2016-10-12 19:28 | disposition home or self-care (01) | DRG 684 ==
LOC: ENRESERVTM → ENRESERVDT → C.EDB 18:28 → C.MED 21:53 → OBSVTOIN 10-11 15:40
PROVIDERS: ADMIT Hospitalist; ATTEND Hospitalist
DX: N17.9 Acute kidney failure, unspecified (principal); E10.649 Type 1 diabetes mellitus with hypoglycemia without coma; I16.0 Hypertensive urgency; E10.22 Type 1 diabetes mellitus with diabetic chronic kidney disease; E10.40 Type 1 diabetes mellitus with diabetic neuropathy, unspecified; G89.29 Other chronic pain; R10.9 Unspecified abdominal pain; E87.6 Hypokalemia; R31.9 Hematuria, unspecified; R76.8 Other specified abnormal immunological findings in serum; F17.210 Nicotine dependence, cigarettes, uncomplicated; K59.00 Constipation, unspecified; N18.9 Chronic kidney disease, unspecified; E10.21 Type 1 diabetes mellitus with diabetic nephropathy; I10 Essential (primary) hypertension; M54.9 Dorsalgia, unspecified; T39.395A Adverse effect of other nonsteroidal anti-inflammatory drugs [NSAID], initial encounter; S39.012A Strain of muscle, fascia and tendon of lower back, initial encounter; X58.XXXA Exposure to other specified factors, initial encounter; D63.1 Anemia in chronic kidney disease; Z79.899 Other long term (current) drug therapy; Z79.891 Long term (current) use of opiate analgesic

== ENCOUNTER 2018-11-03 18:18 | Inpatient (IN) ==
--- OUTSIDE RECORDS SUMMARY | 2018-11-03 20:16 | External Medical Summary | Continuity of Care Document ---
:1985 Author Name Chang Cabrera, Provider Address Unavailable Unavailable , Care Team Providers Name Role Phone MarkG Rick, Provider Unavailable [email or web address] Zoe Joyce DO Unavailable [email or web address] Dion Vo Unavailable [email or web address] ZOE SANDERS M.D. 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) Essential hypertension (401.9) (I10) Type 1 diabetes mellitus with diabetic retinopathy (250.51) (E10.319) Current every day smoker (305.1) (F17.200) Nausea (787.02) (R11.0) Type 1 diabetes mellitus with hypoglycemia (250.81) (E10.649 ) End stage renal disease (585.6) (N18.6) Erectile dysfunction (607.84) (N52.9) Diabetes mellitus type 1, controlled, insulin dependent (250 .01) (E10.9) Diabetic nephropathy associated with type 1 diabetes m ellitus (250.41) (E10.21) Foot abscess, right (682.7) (L02.611) Allergies and Adverse Reactions No Known Drug Allergies (Allergy) Medications HumaLOG 100 UNIT/ML Subcutaneous Solutio n; 15 mins before meal below 150= no coverage, 150-199 1 unit, 200-249 2 units, 250-299 3 units, 300-349 5 units, 350-399 6 units,>399 8 units Start: 12-Aug-2018 Refills: 0 3 ML Vial Basaglar KwikPen 100 UNIT/ML Subcutaneou s Solution Pen-injector; INJECT SUBCUTANEOUSLY 36 UNITS ONCE DAILY Start: 12-Aug-2018 Refills: 0 3 ML Pen Metoprolol Succinate ER 50 MG Oral Table t Extended Release 24 Hour; TAKE 1 TABLET ONCE DAILY. Start: 12-Aug-2018 Refills: 0 100 Tablet Bottle Gentamicin Sulfate 0.1 % External Ointme nt; APPLY SPARINGLY TO AFFECTED AREA(S) 3 TIMES A DAY Start: 12-Aug-2018 Refills: 0 15 GM Tube Auryxia 1 GM 210 MG(Fe) Oral Tablet; TAKE 1 TABLET 3 TIMES A DAY WITH MEALS Start: 12-Aug-2018 Refills: 0 Lyrica 25 MG Oral Capsule; TAKE 1 CAPSULE 3 times daily Quantity: 90 Refills: 5 OneTouch Delica Lancets Fine; tests 4x daily DO Cortez Sanders Start: 12-Dec-2017 Quantity: 2 100 Unit Box Refills: 5 Tresiba FlexTouch 200 UNIT/ML Subcutaneo us Solution Pen-injector; Inject 36 units daily DO Zoe Sanders Start: 27-May-2018 Quantity: 3 3 x 3 ML Pen Refills: 1 Methadone HCl - 10 MG Oral Tablet; 80 mg per day Start: 30-Oct-2016 Refills: 0 amLODIPine Besylate 10 MG Oral Tablet; TAKE 1 TABLET D AILY DIRECTED. DO Zoe Sanders Start: 30-Oct-2016 Quantity: 30 Refills: 5 Glucagon Emergency 1 MG Injection Kit; USE DIRECTED . PIPER Shannon Start: 30-Oct-2016 Quantity: 1 Refills: 2 MiraLax Oral Powder; MIX 17 GRAMS IN 8 O UNCES OF LIQUID AND DRINK TWICE DAILY NEEDED. Start: 30-Oct-2016 Refills: 0 UltiCare Mini Pen [place] 31G X 6 MM; use with insulins DO Zoe Swanson Start: 19-Dec-2016 Quantity: 4 100 Unit Box Refills: 3 Tresiba FlexTouch 100 UNIT/ML Subcutaneo us Solution Pen-injector; Inject 36 units daily NisreenDO jose Zoe Start: 12-Feb-2018 Quantity: 1 5 x 3 ML Pen Refills: 3 BD Eclipse Syringe 30G X 1/2" 1 ML; USE DIRECTED. DO Marilyn Zoe Start: 26-Jun-2018 Quantity: 2 50 Unit Box Refills: 2 Tadalafil 20 MG Oral Tablet; Take 1/2-1 tab PO 1 hr pr ior to sexual activity Nisreenjose DO Viramontes Start: 26-Jun-2018 Quantity: 10 Refills: 0 Procedures History of eye surgery Status: Completed History of tonsillectomy Status: Complet ed Immunizations Tetanus IG On: 05-Dec-2011 Influenza On: May-2018 Family History Father Family history of hypertension (V17.49) (Z82.49) Status: Act chun Brother Family history of hypertension (V17.49) (Z82.49) Status: Act chun Grandmother Family history of diabetes mellitus (V18.0) (Z83.3) Status: Active Grandmother Family history of diabetes mellitus (V18.0) (Z83.3) Status: Active Grandfather Family history of diabetes mellitus (V18.0) (Z83.3) Status: Active Grandfather Family history of diabetes mellitus (V18.0) (Z83.3) Status: Active Social History - Smoking Status Current every day smoker Plan of Treatment Planned Observations Planned Goals not documented Results No Known Results Results not documented Encounters Appointment; Zoe Sanders DO 06-Aug-2018 10:20 Encounter Diagnosis: Problem not documented Appointment; Eric Yarbrough M.D. 04-Jul-2018 12:30 Encounter Diagnosis: Problem not documented Appointment; Zoe Sanders DO 26-Jun-2018 11:40 Encounter Diagnosis: Problem not documented Appointment; Nurse Mara 27-May-2018 9:45 Encounter Diagnosis: Problem not documented Appointment; Dion Shannon CRNP 24-Mar-2018 9:00 Encounter Diagnosis: Problem not documented Appointment; Dion Shannon CRNP 21-Feb-2018 8:00 Encounter Diagnosis: Problem not documented Appointment; Zoe Sanders DO 07-Feb-2018 7:00 Encounter Diagnosis: Problem not documented Appointment; Charisse Hancock PA-C 31-Dec-2017 16:00 Encounter Diagnosis: Problem not documented Appointment; Zoe Sanders DO 25-Dec-2017 9:20 Encounter Diagnosis: Problem not documented Appointment; Gerri Richards CRNP 13-Dec-2017 8:15 Encounter Diagnosis: Problem not documented Appointment; Zoe Sanders DO 05-Dec-2017 9:20 Encounter Diagnosis: Problem not documented Appointment; Charisse Hancock PA-C 26-Jun-2017 15:30 Encounter Diagnosis: Problem not documented Appointment; Charisse Hancock PA-C 29-May-2017 17:30 Encounter Diagnosis: Problem not documented Appointment; Ana Rizzo M.D. 19-Apr-2017 15:15 Encounter Diagnosis: Problem not documented Appointment; Ana Rizzo M.D. 10-Apr-2017 13:15 Encounter Diagnosis: Problem not documented Appointment; Charisse Hancock PA-C 02-Apr-2017 16:30 Encounter Diagnosis: Problem not documented Appointment; Charisse Hancock PA-C 18-Mar-2017 18:00 Encounter Diagnosis: Problem not documented Appointment; Charisse Hancock PA-C 06-Mar-2017 9:00 Encounter Diagnosis: Problem not documented Appointment; Gerri Richards CRNP 25-Dec-2016 15:30 Encounter Diagnosis: Problem not documented Appointment; Charisse Hancock PA-C 04-Dec-2016 9:00 Encounter Diagnosis: Problem not documented Appointment; Nurse Mara 04-Dec-2016 8:45 Encounter Diagnosis: Problem not documented Appointment; Gerri Richards CRNP 20-Nov-2016 11:30 Encounter Diagnosis: Problem not documented Appointment; Gerri Richards CRNP 06-Nov-2016 9:30 Encounter Diagnosis: Problem not documented Appointment; Shana Kathleen R.D. 06-Nov-2016 8:30 Encounter Diagnosis: Problem not documented
[2018-11-03] MEDS ORDERED: PHARMACY GLYCEMIC MGMT CONSULT STA (20:48)
[2018-11-03] MEDS ORDERED: PHARMACY GLYCEMIC MGMT CONSULT PRN (20:54)
[2018-11-03 21:11] LABS: Basophils # (auto) 0.05 K/uL (0-0.2); Basophils % (auto) 0.6 %; Eosinophils # (auto) 0.08 K/uL (0-0.5); Hematocrit (blood only) 36.4 % (42-52); Hemoglobin 12.8 g/dL (14.0-18.0); Immature Granulocytes # (auto) 0.02 K/uL (0.00-0.02); Immature Granulocytes % (auto) 0.2 %; Lymphocytes % (auto) 31.7 %; Mean Corpuscular Hgb Conc 35.2 g/dL (32-36); Mean Corpuscular Volume 84.3 fL (80-100); Mean Platelet Volume 8.3 fL (7.4-10.4); Monocytes # (auto) 0.78 K/uL (0.11-0.59); Monocytes % (auto) 9.5 %; Neutrophils # (auto) 4.66 K/uL (1.4-6.5); Platelet Count 202 K/uL (130-400); RDW Coefficient of Variation 14.1 % (11.5-14.5); RDW Standard Deviation 43.6 fL (36.4-46.3); Red Blood Count 4.32 M/uL (4.7-6.1); White Blood Count 8.19 K/uL (4.8-10.8)
[2018-11-03] MEDS ORDERED: ICU PROTOCOL FOR HYPERGLYCEMIA PRN (21:11)
[2018-11-03] MEDS ORDERED: DEXTROSE 50% 50 ML SYRINGE IV PRN (21:15)
[2018-11-03] MEDS ORDERED: GLUCOSE 40% GEL 15 GM TUBE PO PRN (21:15)
[2018-11-03] MEDS ORDERED: INSULIN REGULAR 250 UNITS in SODIUM CHLORIDE 0.9% 247.5 ML IV SCH (21:15)
[2018-11-03] MEDS ORDERED: CARBOHYDRATES FOR HYPOGLYCEMIA PO PRN (21:15)
[2018-11-03] MEDS ORDERED: GLUCAGON FOR INJ 1 MG VIAL IM PRN (21:15)
[2018-11-03] MEDS ORDERED: GLUCOSE 10 TABS/TUBE PO PRN (21:15)
[2018-11-03] MEDS ORDERED: NovoLIN-R BOLUS FROM BAG IV ONE ×2 (21:15→22:15)
[2018-11-03] MEDS ORDERED: NSS + 20MEQ KCL 20 MEQ/1,000 ML BAG IV SCH (21:30)
[2018-11-03 21:31] LABS: Partial Thromboplastin Time 25.8 Seconds (21.0-31.0); Prothrombin Time 10.1 Seconds (9.0-12.0)
[2018-11-03] MEDS ORDERED: METOPROLOL TARTRATE 1 MG/ML VIAL IV PRN (21:45)
[2018-11-03] MEDS ORDERED: METHADONE ORAL SOLN 2 MG/ML PO STA (21:51)
[2018-11-03 22:03] LABS: Albumin Globulin Ratio 0.6 (0.9-2); Albumin Level 2.2 gm/dl (3.4-5.0); BUN Creatinine Ratio 5.1 (10-20); Bilirubin,Total 0.3 mg/dl (0.2-1); Calcium 8.1 mg/dl (8.5-10.1); Creatinine Clr Calc Pharmacy 12.3 ml/min; Est GFR (African American) 8.6; Est GFR (Non-African American) 7.5; Globulin 3.9 gm/dl (2.5-4.0); Magnesium 1.9 mg/dl (1.8-2.4); Phosphorus 5.4 mg/dl (2.5-4.9); Potassium 4.1 mmol/L (3.5-5.1); Total Protein 6.1 gm/dl (6.4-8.2)
--- NOTE | 2018-11-03 22:14 | History & Physical Report ---
Date of Service November 03, 2018 Assessment & Plan (1) Withdrawal from opioids: 33-year-old male with past medical history of end-stage renal disease, type 1 diabetes, opioid abuse, hep C presents with acute opioid withdrawal. Acute opioid withdrawal Missed methadone appointment, holiday hours Giving methadone 25 mg tonight Methadone 85 mg daily Clonazepam 0.5 mg twice daily End-stage renal disease, on peritoneal dialysis Nephrology consult appreciate recommendations We will start PD tomorrow Hypertensive urgency Received IV labetalol [place], resolved Restart home medicines, PRN Lopressor for pressures greater than 170 Hyperglycemia in the setting of type 1 diabetes Likely secondary to withdrawal, electrolytes improving, glucose improving Glycemic consult Abdominal pain/gastroparesis? Patient endorses abdominal pain, vomiting over the past couple weeks Worked up for peritonitisnegative blood cultures and peritoneal fluid in the outpatient Follow CBC, fever curve, blood cultures History of hepatitis C Discovered on chart review, did not discuss treatment with the patient Recommend using standard precautions DVT prophylaxis SCDs CODE STATUS Full (2) Hypertensive urgency: (3) Hypertension: (4) ESRD (end stage renal disease): (5) Hyperglycemia due to type 1 diabetes mellitus: (6) Gastroparesis: History of Present Illness Primary Care Provider: Ana M Sanders DO 33-year-old male with past medical history of type 1 diabetes, end-stage renal disease on PD, opioid abuse on methadone, hepatitis C presents from [facility] in acute opioid withdrawal. Patient states that he receives his methadone daily and was unable to meet the holiday hours today. He stated that he had typical symptoms that he has had in the past with withdrawalpain in bilateral legs, nausea, diarrhea, shortness of breath and elevated blood pressure. He was found at [facility] to have hypertensive urgency and was started a labetalol drip. In addition, patient was found to have blood sugars greater than 700 and was subsequently started on the insulin drip. He did not show any signs of diabetic ketoacidosis. On admission to [facility], the patient denies any acute symptoms at this time. He states that he is been having abdominal pain with nausea, vomiting for the past couple weeks. He is been worked up for peritonitis at his outpatient dialysis clinic. He states that the peritoneal fluid and his blood cultures have been negative. His doctors are relating the abdominal pain and vomiting is secondary to gastroparesis. Allergies Allergy/AdvReac Type Severity Reaction Status Date / Time No Known Allergies Allergy Verified 05/26/18 08:28 Home Medications Home Medications Medication Instructions Recorded Confirmed Type Basaglluis KwikPen U-100 Insulin 36 unit SUBCUT QPM 05/23/18 11/03/18 History insulin lispro [Humalog U-100 1 sliding scale dose SUBCUT UD PRN 05/23/18 05/26/18 History Insulin] methadone 85 mg PO QAM 05/23/18 05/23/18 History bumetanide 1 mg PO QAM 11/03/18 11/03/18 History clonazepam 0.5 mg PO BID 11/03/18 11/03/18 History irbesartan 150 mg PO QPM 11/03/18 11/03/18 History metoprolol succinate 50 mg PO QPM 11/03/18 11/03/18 History Past Med/Surg History Medical History Diabetes Diabetic retinopathy of both eyes History of acute renal failure Hx of tooth extraction Hypertension Peritoneal dialysis catheter in place Peritoneal dialysis status does nightly - takes 8 hours Surgical History Hx of vitrectomy left Family History Grandfather (Maternal) Family history of diabetes mellitus Grandfather (Paternal) Family history of diabetes mellitus Grandmother (Paternal) Family history of diabetes mellitus Grandmother (Maternal) Family history of diabetes mellitus Aunt Family history of diabetes mellitus Uncle Family history of diabetes mellitus Social History Preferred Language: Swedish Communication Ability: Effective Beliefs That Will Affect Care: None Current Living Situation: Family Current Living Situation Comment: brother and Feels Safe at Home: Yes Safety Concerns: Feels Safe At This Time Smoking Status: Former smoker Tobacco Type: cigarettes Cigarettes Per Day: 5 Hx Alcohol Use: No Hx Substance Use: No Review of Systems Review of Systems: All systems reviewed & are unremarkable except as noted in HPI & below Physical Exam Constitutional: WD/WN, vitals as above Eyes: PERRL, conjunctivae normal, anicteric sclerae ENMT: external ear and nose normal, oropharynx normal Neck: trachea midline, no thyromegaly Respiratory: normal respiratory effort, lungs clear to auscultation Cardiovascular: RRR, no murmur, no edema Gastrointestinal (Abdomen): normal bowel sounds, soft, nontender, no hepatosplenomegaly Nondistended, clean, intact, dry bandage on left lower quadrant site of peritoneal dialysis catheter Musculoskeletal: no cyanosis or clubbing, extremities motor strength 5/5 Skin: no rashes, warm and dry Neurologic: PERRL, EOMI, accommodation nl, no face palsy, no dysarthria Psychiatric: A+Ox3, euthymic affect Results & Data Vital Signs (Past 12 Hours) Vital Signs Temp Pulse Resp BP Pulse Ox 11/03/18 20:37 36.6 C 82 18 135/88 98 Critical Care Time Critical Care Time: Yes Total Critical Care Time: 40 Prolonged Care Time Total Time: Total critical care time was 40 minutes Supervising Physician Co-Signing Physician Notes Attending addendum: I have physically seen this patient, have supervised the medical residents activities, and agree with the H&P unless as otherwise noted. Assessment and Plan: Patient was admitted to the intensive care unit with multiple active medical problems. Acute opioid withdrawal- Missed his methadone ER 85 mg dose this a.m. due to being on peritoneal dialysis at home. Likely had uncontrolled hypertension and tachycardia secondary to withdrawal. He will get a partial dose of 25 mg tonight, and monitor closely for seizure activity. Hypertensive urgency- Has been on labetalol drip from [facility]. Blood pressure significantly improved at this time. As noted above, uncontrolled blood pressure and heart rate were likely related to acute methadone withdrawal. Lopressor 5 mg IV every 4 hours as needed systolic blood pressure greater than 160. Hyperglycemia with diabetes mellitus type 1- Likely aggravated by acute opioid withdrawal. Will place on insulin drip overnight, and then convert to his usual dosings in the a.m. End-stage renal disease on peritoneal dialysis- Consulting nephrology. Stock Saw Operator has been notified and consulted. Remainder of orders notations as noted
[2018-11-03] MEDS: SODIUM CHLORIDE 0.9% 1000ML 1,000 ML IV SCH (22:16)
[2018-11-03] MEDS: clonazePAM 0.5 MG TAB PO SCH (22:21)
[2018-11-04] MEDS ORDERED: ACETAMINOPHEN 325 MG TAB PO PRN (04:17)
[2018-11-04 04:25] LABS: Appearance Urine Clear (Clear); Bacteria Urine Automated Negative (Negative); Bilirubin Urine Negative (Negative); Color Urine Yellow; Glucose Urine UA 3+ (Negative); Ketones Urine Negative (Negative); Leukocyte Esterase Urine Negative (Negative); Nitrite Urine Negative (Negative); Protein Urine 2+ (Negative); Specific Gravity Urine 1.014 (1.000-1.030); Urobilinogen Urine Negative (Negative); pH Urine 6.5 (4.5-7.5)
[2018-11-04 04:47] LABS: Amphetamines+Metham, Urine Neg (Neg); Barbiturates, Urine Neg (Neg); Benzodiazepine, Urine Pos (Neg); Cocaine, Urine Neg (Neg); MDMA (Ecstacy), Urine Neg (Neg); Methadone, Urine Pos (Neg); Opiate, Urine Neg (Neg); Phencyclidine, Urine Neg (Neg)
[2018-11-04 05:08] LABS: Basophils # (auto) 0.03 K/uL (0-0.2); Basophils % (auto) 0.4 %; Eosinophils # (auto) 0.11 K/uL (0-0.5); Eosinophils % (auto) 1.5 %; Hematocrit (blood only) 36.5 % (42-52); Hemoglobin 12.4 g/dL (14.0-18.0); Immature Granulocytes # (auto) 0.02 K/uL (0.00-0.02); Immature Granulocytes % (auto) 0.3 %; Lymphocytes # (auto) 2.25 K/uL (1.2-3.4); Lymphocytes % (auto) 29.7 %; Mean Corpuscular Volume 85.1 fL (80-100); Mean Platelet Volume 8.5 fL (7.4-10.4); Monocytes # (auto) 0.55 K/uL (0.11-0.59); Monocytes % (auto) 7.3 %; Neutrophils # (auto) 4.62 K/uL (1.4-6.5); Neutrophils % (auto) 60.8 %; Platelet Count 208 K/uL (130-400); RDW Coefficient of Variation 14.3 % (11.5-14.5); RDW Standard Deviation 44.3 fL (36.4-46.3); Red Blood Count 4.29 M/uL (4.7-6.1); White Blood Count 7.58 K/uL (4.8-10.8)
[2018-11-04 05:57] LABS: Albumin Globulin Ratio 0.6 (0.9-2); Albumin Level 2.1 gm/dl (3.4-5.0); BUN Creatinine Ratio 5.2 (10-20); Bilirubin,Total 0.2 mg/dl (0.2-1); Calcium 7.7 mg/dl (8.5-10.1); Creatinine Clr Calc Pharmacy 12.3 ml/min; Est GFR (African American) 8.7; Est GFR (Non-African American) 7.5; Globulin 3.6 gm/dl (2.5-4.0); Phosphorus 6.2 mg/dl (2.5-4.9); Potassium 4.1 mmol/L (3.5-5.1); Total Protein 5.7 gm/dl (6.4-8.2)
[2018-11-04] MEDS: SODIUM CHLORIDE 0.9% 1000ML 1,000 ML IV SCH (06:31)
--- NOTE | 2018-11-04 07:41 | Hospitalist Progress Note ---
Date of Service November 04, 2018 Assessment & Plan (1) Withdrawal from opioids: 33-year-old male with past medical history of end-stage renal disease, type 1 diabetes, opioid abuse, hep C presents with acute opioid withdrawal. Acute opioid withdrawal Missed methadone appointment, holiday hours Giving methadone 25 mg tonight Methadone 85 mg daily Clonazepam 0.5 mg twice daily DVT prophylaxis SCDs CODE STATUS Full (2) Hypertensive urgency: Hypertensive urgency Received IV labetalol [place], resolved Restart home medicines, PRN Lopressor for pressures greater than 170 (3) Hypertension: (4) ESRD (end stage renal disease): End-stage renal disease, on peritoneal dialysis Nephrology consult appreciate recommendations We will start PD tomorrow (5) Hyperglycemia due to type 1 diabetes mellitus: Hyperglycemia in the setting of type 1 diabetes Likely secondary to withdrawal, electrolytes improving, glucose improving Glycemic consult (6) Gastroparesis: Abdominal pain/gastroparesis? Patient endorses abdominal pain, vomiting over the past couple weeks Worked up for peritonitisnegative blood cultures and peritoneal fluid in the outpatient Follow CBC, fever curve, blood cultures (7) Hepatitis C: History of hepatitis C Discovered on chart review, did not discuss treatment with the patient Recommend using standard precautions Results & Data Vital Signs (Past 12 Hours) Vital Signs Temp Pulse Pulse Resp BP BP Pulse Ox 11/04/18 06:01 78 0 L 153/98 H 98 11/04/18 05:01 77 7 L 141/82 H 98 11/04/18 04:31 77 8 L 142/88 H 97 11/04/18 04:01 36.6 C 136/79 98 11/04/18 03:31 76 156/89 H 98 11/04/18 03:01 75 11 L 144/90 H 98 11/04/18 02:31 75 12 144/89 H 98 11/04/18 02:01 74 11 L 138/83 98 11/04/18 01:31 74 8 L 153/89 H 98 11/04/18 01:01 76 13 172/103 H 99 11/04/18 01:00 76 16 11/04/18 00:51 77 15 99 11/04/18 00:35 78 21 210/110 H 11/04/18 00:00 36.7 C 83 9 L 138/78 98 11/03/18 23:31 82 10 L 131/75 98 11/03/18 23:01 82 9 L 137/78 98 11/03/18 22:01 81 18 142/80 H 98 11/03/18 21:01 79 26 H 153/97 H 99 11/03/18 20:48 80 23 135/79 98 11/03/18 20:37 36.6 C 82 18 135/88 98 11/03/18 20:32 82 20 144/88 H 98 11/03/18 20:25 82 18 135/88 98 11/03/18 20:19 36.6 C 83 19 134/85
[2018-11-04] MEDS: clonazePAM 0.5 MG TAB PO SCH (08:27)
[2018-11-04] MEDS ORDERED: [UNRECOGNIZED DRUG - REMARK] PO SCH (09:00)
[2018-11-04] MEDS ORDERED: METHADONE ORAL SOLN 2 MG/ML PO SCH (09:00)
[2018-11-04] MEDS ORDERED: INSULIN ASPART 100 UNITS/ML 3 ML PEN SC SCH ×2 (09:00→11:30)
[2018-11-04] MEDS ORDERED: BUMETANIDE 1 MG TAB PO SCH (09:00)
--- NOTE | 2018-11-04 09:40 | Nephrology Consultation ---
Date of Consultation November 04, 2018 Assessment & Plan (1) ESRD (end stage renal disease): Patient with ESRD on cycler PD. He is now admitted with hypertensive urgency and hyperglycemia. He missed PD last night. We will do cycled PD tonight for 10 hours using 1.5% and 2.5% dwelling 2l. (2) Hypertensive urgency: Blood pressure is better this morning but still above target. Recommend amlodipine 10 mg daily. (3) Hyperglycemia due to type 1 diabetes mellitus: Patient is currently on insulin drip per ICU team. Will use 1.5% alternating with 2.5% dextrose to minimize hypoglycemia from PD. History of Present Illness Reason for Consultation: ESRD on peritoneal dialysis Requesting Physician: Melquiades Lee MD Attending Physician: Melquiades Lee MD History of Present Illness This is a 33-year-old male with type 1 diabetes and end-stage renal disease on cycled peritoneal dialysis for the past 1 year. He was on hemodialysis for 1 month prior to that. He is dialyzed at [facility] under the care of Dr. Perla. He uses 2 liter fills, 6 cycles using 2.5% dextrose over 10-hour. He has a dry abdomen during the day. No previous history of peritonitis. Other past medical history include drug abuse on methadone maintenance, hepatitis C, gastroparesis and hypertension. He was admitted on 11/03/2018 with hypertensive urgency, hyperglycemia and opiate withdrawal. He is now back on methadone maintenance. Blood pressure has improved with systolic between 150 at 170. He denies any shortness of breath or lower extremity swelling. He reports one episode of vomiting last night which he attributes to gastroparesis. No diarrhea. No urinary symptoms. Allergies Allergy/AdvReac Type Severity Reaction Status Date / Time No Known Allergies Allergy Verified 05/26/18 08:28 Home Medications Home Medications Medication Instructions Recorded Confirmed Type insulin glargine [Basaglar KwikPen 36 unit SUBCUT QPM 05/23/18 11/03/18 History U-100 Insulin] insulin lispro [Humalog U-100 1 sliding scale dose SUBCUT UD PRN 05/23/18 History Insulin] methadone 85 mg PO QAM 05/23/18 05/23/18 History bumetanide 1 mg PO QAM 11/03/18 11/03/18 History clonazepam 0.5 mg PO BID 11/03/18 11/03/18 History irbesartan 150 mg PO QPM 11/03/18 11/03/18 History metoprolol succinate 50 mg PO QPM 11/03/18 11/03/18 History Patient History Medical History Diabetes Diabetic retinopathy of both eyes History of acute renal failure Hx of tooth extraction Hypertension Peritoneal dialysis catheter in place Peritoneal dialysis status does nightly - takes 8 hours Surgical History Hx of vitrectomy left Family History Grandfather (Maternal) Family history of diabetes mellitus Grandfather (Paternal) Family history of diabetes mellitus Grandmother (Paternal) Family history of diabetes mellitus Grandmother (Maternal) Family history of diabetes mellitus Aunt Family history of diabetes mellitus Uncle Family history of diabetes mellitus Social History Preferred Language: Niuean Communication Ability: Effective Beliefs That Will Affect Care: None Current Living Situation: Family Current Living Situation Comment: brother and Feels Safe at Home: Yes Safety Concerns: Feels Safe At This Time Smoking Status: Former smoker Tobacco Type: cigarettes Cigarettes Per Day: 5 Hx Alcohol Use: No Hx Substance Use: No Review of Systems Review of Systems: All systems reviewed & are unremarkable except as noted in HPI & below Physical Exam Physical Exam: General exam: Appears comfortable, no acute distress HEENT: Pupils are equal and reactive to light Neck: No JVD, neck is supple trachea is midline Respiratory system: Clear breath sounds bilaterally. Gastrointestinal: Abdomen is soft, non distended, non tender, bowel sounds are present. PD catheter in good position. Exit site is clean CVS: Regular rate and rhythm. No murmurs, rubs or gallops Musculoskeletal: No joint or muscle tenderness Extremities: Non tender, no edema, peripheral pulses are present Neuro: Oriented, no tremors, no focal neurological deficits Skin: No rashes Results & Data Vital Signs (Past 12 Hours) Vital Signs Temp Pulse Resp BP Pulse Ox 11/04/18 09:00 81 16 174/89 H 98 11/04/18 08:00 36.7 C 81 12 157/87 H 98 11/04/18 07:00 81 15 155/95 H 97 11/04/18 06:01 78 0 L 153/98 H 98 11/04/18 05:01 77 7 L 141/82 H 98 11/04/18 04:31 77 8 L 142/88 H 97 11/04/18 04:01 36.6 C 136/79 98 11/04/18 03:31 76 156/89 H 98 11/04/18 03:01 75 11 L 144/90 H 98 11/04/18 02:31 75 12 144/89 H 98 11/04/18 02:01 74 11 L 138/83 98 11/04/18 01:31 74 8 L 153/89 H 98 11/04/18 01:01 76 13 172/103 H 99 11/04/18 01:00 76 16 11/04/18 00:51 77 15 99 11/04/18 00:35 78 21 210/110 H 11/04/18 00:00 36.7 C 83 9 L 138/78 98 11/03/18 23:31 82 10 L 131/75 98 11/03/18 23:01 82 9 L 137/78 98 11/03/18 22:01 81 18 142/80 H 98 Laboratory Results Laboratory Results - last 24 hr 11/03/18 11/03/18 11/03/18 20:20 20:28 20:56 WBC 8.19 RBC 4.32 L Hgb 12.8 L Hct 36.4 L MCV 84.3 MCH 29.6 MCHC 35.2 RDW Std Deviation 43.6 RDW Coeff of Rebecca 14.1 Plt Count 202 MPV 8.3 Immature Gran % (Auto) 0.2 Neut % (Auto) 57.0 Lymph % (Auto) 31.7 [place] % (Auto) 9.5 Eos % (Auto) 1.0 Baso % (Auto) 0.6 Immature Gran # (Auto) 0.02 Neut # (Auto) 4.66 Lymph # (Auto) 2.60 [place] # (Auto) 0.78 H Eos # (Auto) 0.08 Baso # (Auto) 0.05 PT INR APTT PTT Ratio Sodium Potassium Chloride Carbon Dioxide Anion Gap BUN Creatinine Est Cr Clr Drug Dosing Est GFR ( Amer) Est GFR (Non-Af Amer) BUN/Creatinine Ratio Glucose POC Glucose 464 H* Lactate Calcium Phosphorus Magnesium Total Bilirubin AST ALT Alkaline Phosphatase Total Protein Albumin Globulin Albumin/Globulin Ratio Beta-Hydroxybutyric Acd Procalcitonin Urine Color Urine Appearance Urine pH Ur Specific [place] Urine Protein Urine Glucose (UA) Urine Ketones Urine Blood Urine Nitrite Urine Bilirubin Urine Urobilinogen Ur Leukocyte Esterase Urine WBC (Auto) Urine RBC (Auto) U Hyaline Cast (Auto) U Epithel Cells (Auto) Urine Bacteria (Auto) Nasal Screen MRSA (PCR) Negative Urine Opiates Screen Ur Methadone, Qual U Methadone Metabolites Ur Methadone Confirm Urine Barbiturates Ur Phencyclidine (PCP) U Amphetamin/Meth Scrn MDMA (Ecstasy) Screen U OH-Alprazolam Confrm U Benzodiazepines Scrn 7-Amino Clonazepam Ur Nordiazepam Confirm U OH-ethylflurazepam U Lorazepam Cnf GC/MS U Oxazepam Confm GC/MS Ur Temazepam Confirm U OH-Triazolam Confirm U OH-Midazolam Confirm Ur Cocaine Metabolite U Marijuana (THC) Screen 11/03/18 11/03/18 11/03/18 20:56 20:56 20:56 WBC RBC Hgb Hct MCV MCH MCHC RDW Std Deviation RDW Coeff of Rebecca Plt Count MPV Immature Gran % (Auto) Neut % (Auto) Lymph % (Auto) [place] % (Auto) Eos % (Auto) Baso % (Auto) Immature Gran # (Auto) Neut # (Auto) Lymph # (Auto) [place] # (Auto) Eos # (Auto) Baso # (Auto) PT 10.1 INR 1.0 APTT 25.8 PTT Ratio 1.0 Sodium 130 L Potassium 4.1 Chloride 96 L Carbon Dioxide 20 L Anion Gap 14.0 H BUN 42 H Creatinine 8.35 H* Est Cr Clr Drug Dosing 12.3 Est GFR ( Amer) 8.6 Est GFR (Non-Af Amer) 7.5 BUN/Creatinine Ratio 5.1 L Glucose 428 H* POC Glucose Lactate Calcium 8.1 L Phosphorus 5.4 H Magnesium 1.9 Total Bilirubin 0.3 AST 21 ALT 28 Alkaline Phosphatase 115 Total Protein 6.1 L Albumin 2.2 L Globulin 3.9 Albumin/Globulin Ratio 0.6 L Beta-Hydroxybutyric Acd 0.65 Procalcitonin 0.29 Urine Color Urine Appearance Urine pH Ur Specific [place] Urine Protein Urine Glucose (UA) Urine Ketones Urine Blood Urine Nitrite Urine Bilirubin Urine Urobilinogen Ur Leukocyte Esterase Urine WBC (Auto) Urine RBC (Auto) U Hyaline Cast (Auto) U Epithel Cells (Auto) Urine Bacteria (Auto) Nasal Screen MRSA (PCR) Urine Opiates Screen Ur Methadone, Qual U Methadone Metabolites Ur Methadone Confirm Urine Barbiturates Ur Phencyclidine (PCP) U Amphetamin/Meth Scrn MDMA (Ecstasy) Screen U OH-Alprazolam Confrm U Benzodiazepines Scrn 7-Amino Clonazepam Ur Nordiazepam Confirm U OH-ethylflurazepam U Lorazepam Cnf GC/MS U Oxazepam Confm GC/MS Ur Temazepam Confirm U OH-Triazolam Confirm U OH-Midazolam Confirm Ur Cocaine Metabolite U Marijuana (THC) Screen 11/03/18 11/03/18 11/04/18 21:24 22:59 00:01 WBC RBC Hgb Hct MCV MCH MCHC RDW Std Deviation RDW Coeff of Rebecca Plt Count MPV Immature Gran % (Auto) Neut % (Auto) Lymph % (Auto) [place] % (Auto) Eos % (Auto) Baso % (Auto) Immature Gran # (Auto) Neut # (Auto) Lymph # (Auto) [place] # (Auto) Eos # (Auto) Baso # (Auto) PT INR APTT PTT Ratio Sodium Potassium Chloride Carbon Dioxide Anion Gap BUN Creatinine Est Cr Clr Drug Dosing Est GFR ( Amer) Est GFR (Non-Af Amer) BUN/Creatinine Ratio Glucose POC Glucose 282 H 215 H Lactate 2.4 H* Calcium Phosphorus Magnesium Total Bilirubin AST ALT Alkaline Phosphatase Total Protein Albumin Globulin Albumin/Globulin Ratio Beta-Hydroxybutyric Acd Procalcitonin Urine Color Urine Appearance Urine pH Ur Specific [place] Urine Protein Urine Glucose (UA) Urine Ketones Urine Blood Urine Nitrite Urine Bilirubin Urine Urobilinogen Ur Leukocyte Esterase Urine WBC (Auto) Urine RBC (Auto) U Hyaline Cast (Auto) U Epithel Cells (Auto) Urine Bacteria (Auto) Nasal Screen MRSA (PCR) Urine Opiates Screen Ur Methadone, Qual U Methadone Metabolites Ur Methadone Confirm Urine Barbiturates Ur Phencyclidine (PCP) U Amphetamin/Meth Scrn MDMA (Ecstasy) Screen U OH-Alprazolam Confrm U Benzodiazepines Scrn 7-Amino Clonazepam Ur Nordiazepam Confirm U OH-ethylflurazepam U Lorazepam Cnf GC/MS U Oxazepam Confm GC/MS Ur Temazepam Confirm U OH-Triazolam Confirm U OH-Midazolam Confirm Ur Cocaine Metabolite U Marijuana (THC) Screen 11/04/18 11/04/18 11/04/18 00:59 01:59 03:01 WBC RBC Hgb Hct MCV MCH MCHC RDW Std Deviation RDW Coeff of Rebecca Plt Count MPV Immature Gran % (Auto) Neut % (Auto) Lymph % (Auto) [place] % (Auto) Eos % (Auto) Baso % (Auto) Immature Gran # (Auto) Neut # (Auto) Lymph # (Auto) [place] # (Auto) Eos # (Auto) Baso # (Auto) PT INR APTT PTT Ratio Sodium Potassium Chloride Carbon Dioxide Anion Gap BUN Creatinine Est Cr Clr Drug Dosing Est GFR ( Amer) Est GFR (Non-Af Amer) BUN/Creatinine Ratio Glucose POC Glucose 166 H 127 H 118 H Lactate Calcium Phosphorus Magnesium Total Bilirubin AST ALT Alkaline Phosphatase Total Protein Albumin Globulin Albumin/Globulin Ratio Beta-Hydroxybutyric Acd Procalcitonin Urine Color Urine Appearance Urine pH Ur Specific [place] Urine Protein Urine Glucose (UA) Urine Ketones Urine Blood Urine Nitrite Urine Bilirubin Urine Urobilinogen Ur Leukocyte Esterase Urine WBC (Auto) Urine RBC (Auto) U Hyaline Cast (Auto) U Epithel Cells (Auto) Urine Bacteria (Auto) Nasal Screen MRSA (PCR) Urine Opiates Screen Ur Methadone, Qual U Methadone Metabolites Ur Methadone Confirm Urine Barbiturates Ur Phencyclidine (PCP) U Amphetamin/Meth Scrn MDMA (Ecstasy) Screen U OH-Alprazolam Confrm U Benzodiazepines Scrn 7-Amino Clonazepam Ur Nordiazepam Confirm U OH-ethylflurazepam U Lorazepam Cnf GC/MS U Oxazepam Confm GC/MS Ur Temazepam Confirm U OH-Triazolam Confirm U OH-Midazolam Confirm Ur Cocaine Metabolite U Marijuana (THC) Screen 11/04/18 11/04/18 11/04/18 04:05 04:09 04:09 WBC RBC Hgb Hct MCV MCH MCHC RDW Std Deviation RDW Coeff of Rebecca Plt Count MPV Immature Gran % (Auto) Neut % (Auto) Lymph % (Auto) [place] % (Auto) Eos % (Auto) Baso % (Auto) Immature Gran # (Auto) Neut # (Auto) Lymph # (Auto) [place] # (Auto) Eos # (Auto) Baso # (Auto) PT INR APTT PTT Ratio Sodium Potassium Chloride Carbon Dioxide Anion Gap BUN Creatinine Est Cr Clr Drug Dosing Est GFR ( Amer) Est GFR (Non-Af Amer) BUN/Creatinine Ratio Glucose POC Glucose 95 Lactate Calcium Phosphorus Magnesium Total Bilirubin AST ALT Alkaline Phosphatase Total Protein Albumin Globulin Albumin/Globulin Ratio Beta-Hydroxybutyric Acd Procalcitonin Urine Color Yellow Urine Appearance Clear Urine pH 6.5 Ur Specific [place] 1.014 Urine Protein 2+ H Urine Glucose (UA) 3+ H Urine Ketones Negative Urine Blood Trace H Urine Nitrite Negative Urine Bilirubin Negative Urine Urobilinogen Negative Ur Leukocyte Esterase Negative Urine WBC (Auto) 1-5 Urine RBC (Auto) 0-4 U Hyaline Cast (Auto) 1-5 U Epithel Cells (Auto) 5-10 H Urine Bacteria (Auto) Negative Nasal Screen MRSA (PCR) Urine Opiates Screen Neg Ur Methadone, Qual Pos H U Methadone Metabolites Ur Methadone Confirm Urine Barbiturates Neg Ur Phencyclidine (PCP) Neg U Amphetamin/Meth Scrn Neg MDMA (Ecstasy) Screen Neg U OH-Alprazolam Confrm U Benzodiazepines Scrn Pos H 7-Amino Clonazepam Ur Nordiazepam Confirm U OH-ethylflurazepam U Lorazepam Cnf GC/MS U Oxazepam Confm GC/MS Ur Temazepam Confirm U OH-Triazolam Confirm U OH-Midazolam Confirm Ur Cocaine Metabolite Neg U Marijuana (THC) Screen Neg 11/04/18 11/04/18 11/04/18 04:09 04:46 04:46 WBC 7.58 RBC 4.29 L Hgb 12.4 L Hct 36.5 L MCV 85.1 MCH 28.9 MCHC 34.0 RDW Std Deviation 44.3 RDW Coeff of Rebecca 14.3 Plt Count 208 MPV 8.5 Immature Gran % (Auto) 0.3 Neut % (Auto) 60.8 Lymph % (Auto) 29.7 [place] % (Auto) 7.3 Eos % (Auto) 1.5 Baso % (Auto) 0.4 Immature Gran # (Auto) 0.02 Neut # (Auto) 4.62 Lymph # (Auto) 2.25 [place] # (Auto) 0.55 Eos # (Auto) 0.11 Baso # (Auto) 0.03 PT INR APTT PTT Ratio Sodium 134 L Potassium 4.1 Chloride 101 Carbon Dioxide 24 Anion Gap 9.0 BUN 43 H Creatinine 8.33 H* Est Cr Clr Drug Dosing 12.3 Est GFR ( Amer) 8.7 Est GFR (Non-Af Amer) 7.5 BUN/Creatinine Ratio 5.2 L Glucose 90 POC Glucose Lactate Calcium 7.7 L Phosphorus 6.2 H Magnesium 2.0 Total Bilirubin 0.2 AST 18 ALT 25 Alkaline Phosphatase 112 Total Protein 5.7 L Albumin 2.1 L Globulin 3.6 Albumin/Globulin Ratio 0.6 L Beta-Hydroxybutyric Acd Procalcitonin Urine Color Urine Appearance Urine pH Ur Specific [place] Urine Protein Urine Glucose (UA) Urine Ketones Urine Blood Urine Nitrite Urine Bilirubin Urine Urobilinogen Ur Leukocyte Esterase Urine WBC (Auto) Urine RBC (Auto) U Hyaline Cast (Auto) U Epithel Cells (Auto) Urine Bacteria (Auto) Nasal Screen MRSA (PCR) Urine Opiates Screen Ur Methadone, Qual U Methadone Metabolites Pending Ur Methadone Confirm Pending Urine Barbiturates Ur Phencyclidine (PCP) U Amphetamin/Meth Scrn MDMA (Ecstasy) Screen U OH-Alprazolam Confrm Pending U Benzodiazepines Scrn 7-Amino Clonazepam Pending Ur Nordiazepam Confirm Pending U OH-ethylflurazepam Pending U Lorazepam Cnf GC/MS Pending U Oxazepam Confm GC/MS Pending Ur Temazepam Confirm Pending U OH-Triazolam Confirm Pending U OH-Midazolam Confirm Pending Ur Cocaine Metabolite U Marijuana (THC) Screen 11/04/18 11/04/18 11/04/18 04:49 05:59 07:07 WBC RBC Hgb Hct MCV MCH MCHC RDW Std Deviation RDW Coeff of Rebecca Plt Count MPV Immature Gran % (Auto) Neut % (Auto) Lymph % (Auto) [place] % (Auto) Eos % (Auto) Baso % (Auto) Immature Gran # (Auto) Neut # (Auto) Lymph # (Auto) [place] # (Auto) Eos # (Auto) Baso # (Auto) PT INR APTT PTT Ratio Sodium Potassium Chloride Carbon Dioxide Anion Gap BUN Creatinine Est Cr Clr Drug Dosing Est GFR ( Amer) Est GFR (Non-Af Amer) BUN/Creatinine Ratio Glucose POC Glucose 87 85 100 H Lactate Calcium Phosphorus Magnesium Total Bilirubin AST ALT Alkaline Phosphatase Total Protein Albumin Globulin Albumin/Globulin Ratio Beta-Hydroxybutyric Acd Procalcitonin Urine Color Urine Appearance Urine pH Ur Specific [place] Urine Protein Urine Glucose (UA) Urine Ketones Urine Blood Urine Nitrite Urine Bilirubin Urine Urobilinogen Ur Leukocyte Esterase Urine WBC (Auto) Urine RBC (Auto) U Hyaline Cast (Auto) U Epithel Cells (Auto) Urine Bacteria (Auto) Nasal Screen MRSA (PCR) Urine Opiates Screen Ur Methadone, Qual U Methadone Metabolites Ur Methadone Confirm Urine Barbiturates Ur Phencyclidine (PCP) U Amphetamin/Meth Scrn MDMA (Ecstasy) Screen U OH-Alprazolam Confrm U Benzodiazepines Scrn 7-Amino Clonazepam Ur Nordiazepam Confirm U OH-ethylflurazepam U Lorazepam Cnf GC/MS U Oxazepam Confm GC/MS Ur Temazepam Confirm U OH-Triazolam Confirm U OH-Midazolam Confirm Ur Cocaine Metabolite U Marijuana (THC) Screen
[2018-11-04] MEDS ORDERED: ONDANSETRON INJ 2 MG/ML 2 ML VIAL ONE (09:52)
[2018-11-04] MEDS ORDERED: AMLODIPINE BESYLATE 5 MG TAB PO SCH (10:00)
[2018-11-04] MEDS ORDERED: INSULIN GLARGINE SOLOSTAR 100 UNITS/ML 3 ML PEN SC ONE ×2 (10:00→10:15)
[2018-11-04] MEDS ORDERED: IRBESARTAN 150 MG TAB PO ONE (10:30)
[2018-11-04] MEDS ORDERED: METOPROLOL SUCC 50MG EXT REL TAB PO STA (10:31)
--- NOTE | 2018-11-04 10:47 | Pharmacy Report ---
Pharmacy Glycemic Short Note 2 - Date of Service November 04, 2018 - Glycemic Short BSG Results (Last 24 hours): 11/03/18 11/03/18 11/03/18 20:28 20:56 22:59 Glucose 428 H* POC Glucose 464 H* 282 H 11/04/18 11/04/18 11/04/18 00:01 00:59 01:59 Glucose POC Glucose 215 H 166 H 127 H 11/04/18 11/04/18 11/04/18 03:01 04:05 04:46 Glucose 90 POC Glucose 118 H 95 11/04/18 11/04/18 11/04/18 04:49 05:59 07:07 Glucose POC Glucose 87 85 100 H OUTPATIENT ANTIDIABETIC REGIMEN: * Basaglar 36 units Q PM * Humalog 10 units w/ meals * A1c = ? ASSESSMENT: * Type 1 diabetic admitted yesterday due to NVD, hypertensive urgency, probable acute opiate withdrawal * Patient was initially hyperglycemic, yet no ketoacidosis present. He has been controlled well with IV insulin drip. Rates down to 0.5-0.9 units/hr this morning * Patient continues to have NV this AM, however pt reports that he typically vomits once daily and this is not new for him * Will convert to basal/bolus SQ regimen at this time as he does not have ketoacidosis and he did receive his prescribed dose of methadone this AM. There is a question of how well he will tolerate the ordered diet. * Glycemic Control Service has followed this patient on multiple occasions in the past. He is quite "brittle" with BSGs dropping into the severe hypoglycemia range multiple times in the past. * Based upon prior admission data, I suspect his reported outpt dosage will be excessive if resumed at this time. There could be an element of non- compliance involved. Discussed past doses w/ Chief Investigator and agreed to place him on a reduced basal dose based upon prior admission data in light of NV. Novolog doses will be based upon prior admission data as well PLAN FOR INPATIENT GLYCEMIC CONTROL: * Basal insulin * Lantus 20 units SQ daily in the AM * Bolus insulin * NovoLog per scale ACHS and also at 0000 + 0400 tonight to screen for hyper- / hypo- glycemia * Goal Range: Low 110 mg/dL - High 150 mg/dL * Correction Factor: 35 mg/dL/unit * Nutritional / Prandial insulin per carb ratio of 1 unit per 12 grams CHO consumed PLAN FOR DISCHARGE: * to be determined
--- NOTE | 2018-11-04 10:56 | Critical Care Consultation ---
Date of Consultation November 04, 2018 Assessment & Plan (1) Hypertensive urgency: Resolved and we started his home meds clonidine metoprolol and losartan (2) Hyperglycemia due to type 1 diabetes mellitus: currently received 20 U lantus insulin. In the past he become hypoglycemic with his home dose when he was in the hospital (Likely diet related) Insulin drip will stop in 2 hours and will get FS at that point and proceed accordingly with coverage. [facility] (3) ESRD (end stage renal disease): To get PD today either by himself or from us if he stays here (4) Admitted to intensive care unit: 34 yo admitted with hypertensive urgency and hyperglycemic non ketotic hyperosmolar state now both controlled in the setting of type 1 DM complicated by ESRD on PD and retinopathy on Rx neuro Continue his methadone dose 85 mg daily Respiratory no complaints CV HTN start home doses of clonidine metoprolol and losartan GI diet clear liquids and advance as tolerated COmpasine for nasusea renal PD lytes acceptable normal ID no foci of infection DVT prophylaxis with SC heparin stable to transfer to [facility] after stopping drip or DC to [facility] Spent total CC time 40 minutes History of Present Illness Reason for Consultation: Hypertensive urgency and hyperglycemia Attending Physician: Melquiades Lee MD History of Present Illness 34 yo male who is known to be Type 1 DM takes 36 U lantus and 10 unites regular as needed who also is on methadone detox and ESRD on PD. The patient slept through his appointment at [facility] where he gets his methadone (slept past 8 am yesterday) and missed his dose. The then became jittery and BP was high. He was started on labetalol drip at an outside facility and transferred him here. The patient was having BS of 400+ on arrival but had no anion gap and he said he missed his fast acting insulin because of the BP and methadone issue. Overnight he required 0.9 U insulin and BP increased so his home BP meds were started and we tried oral diet today but he vomited. Compasine was given. Patient says he vomits regulary! He wants to go to eye clinic in [facility] as he gets treatment for his retina. Allergies Allergy/AdvReac Type Severity Reaction Status Date / Time No Known Allergies Allergy Verified 05/26/18 08:28 Home Medications Home Medications Medication Instructions Recorded Confirmed Type insulin glargine [Basaglar LeonelaikPen 36 unit SUBCUT QPM 05/23/18 11/03/18 History U-100 Insulin] insulin lispro [Humalog U-100 1 sliding scale dose SUBCUT UD PRN 05/23/18 05/26/18 History Insulin] methadone 85 mg PO QAM 05/23/18 05/23/18 History bumetanide 1 mg PO QAM 11/03/18 11/03/18 History clonazepam 0.5 mg PO BID 11/03/18 11/03/18 History irbesartan 150 mg PO QPM 11/03/18 11/03/18 History metoprolol succinate 50 mg PO QPM 11/03/18 11/03/18 History Patient History Medical History Diabetes Diabetic retinopathy of both eyes History of acute renal failure Hx of tooth extraction Hypertension Peritoneal dialysis catheter in place Peritoneal dialysis status does nightly - takes 8 hours Surgical History Hx of vitrectomy left Family History Grandfather (Maternal) Family history of diabetes mellitus Grandfather (Paternal) Family history of diabetes mellitus Grandmother (Paternal) Family history of diabetes mellitus Grandmother (Maternal) Family history of diabetes mellitus Aunt Family history of diabetes mellitus Uncle Family history of diabetes mellitus Social History Preferred Language: Latvian Communication Ability: Effective Beliefs That Will Affect Care: None Current Living Situation: Family Current Living Situation Comment: brother and Feels Safe at Home: Yes Safety Concerns: Feels Safe At This Time Smoking Status: Former smoker Tobacco Type: cigarettes Cigarettes Per Day: 5 Hx Alcohol Use: No Hx Substance Use: No Review of Systems Review of Systems: All systems reviewed & are unremarkable except as noted in HPI & below Physical Exam Constitutional: WD/WN, vitals as above Eyes: PERRL, conjunctivae normal, anicteric sclerae ENMT: external ear and nose normal, oropharynx normal Neck: supple Respiratory: normal respiratory effort, lungs clear to auscultation Cardiovascular: RRR, no murmur, no edema Gastrointestinal (Abdomen): normal bowel sounds, soft, nontender, no hepatosplenomegaly PD catheter in place and clean Musculoskeletal: no cyanosis or clubbing, extremities motor strength 5/5 some skin erosions on the chins of both LE Neurologic: no gross focal motor deficits Results & Data Vital Signs (Past 12 Hours) Vital Signs Temp Pulse Resp BP Pulse Ox 11/04/18 09:00 81 16 174/89 H 98 11/04/18 08:00 36.7 C 81 12 157/87 H 98 11/04/18 07:00 81 15 155/95 H 97 11/04/18 06:01 78 0 L 153/98 H 98 11/04/18 05:01 77 7 L 141/82 H 98 11/04/18 04:31 77 8 L 142/88 H 97 11/04/18 04:01 36.6 C 136/79 98 11/04/18 03:31 76 156/89 H 98 11/04/18 03:01 75 11 L 144/90 H 98 11/04/18 02:31 75 12 144/89 H 98 11/04/18 02:01 74 11 L 138/83 98 11/04/18 01:31 74 8 L 153/89 H 98 11/04/18 01:01 76 13 172/103 H 99 11/04/18 01:00 76 16 11/04/18 00:51 77 15 99 11/04/18 00:35 78 21 210/110 H 11/04/18 00:00 36.7 C 83 9 L 138/78 98 11/03/18 23:31 82 10 L 131/75 98 11/03/18 23:01 82 9 L 137/78 98
[2018-11-04] MEDS ORDERED: [UNRECOGNIZED DRUG - REMARK] ONE (12:00)
[2018-11-04] MEDS ORDERED: PROCHLORPERAZINE MALEATE 5 MG TAB PO PRN (12:16)
[2018-11-04] MEDS ORDERED: ONDANSETRON INJ 2 MG/ML 2 ML VIAL IV STA (13:00)
--- NOTE | 2018-11-04 15:50 | Discharge Summary ---
Date of Service November 04, 2018 Admission HPI Per Admitting Provider 33-year-old male with past medical history of type 1 diabetes, end-stage renal disease on PD, opioid abuse on methadone, hepatitis C presents from [facility] in acute opioid withdrawal. Patient states that he receives his methadone daily and was unable to meet the holiday hours today. He stated that he had typical symptoms that he has had in the past with withdrawalpain in bilateral legs, nausea, diarrhea, shortness of breath and elevated blood pressure. He was found at [facility] to have hypertensive urgency and was started a labetalol drip. In addition, patient was found to have blood sug ars greater than 700 and was subsequently started on the insulin drip. He did not show any signs of diabetic ketoacidosis. On admission to [facility], the patient denies any acute symptoms at this time. He states that he is been having abdominal pain with nausea, vomiting for the past couple weeks. He is been worked up for peritonitis at his outpatient dialysis clinic. He states that the peritoneal fluid and his blood cultures have been negative. His doctors are relating the abdominal pain and vomiting is secondary to gastroparesis. Principal Diagnosis hypertensive urgency esrd on peritoneal dialysis insulin requiring diabetes Discharge Exam Constitutional well developed and average body habitus Eyes no conjunctival abnormality and no scleral abnormality Neck normal visual inspection and trachea midline Respiratory normal respiratory effort; no respiratory distress Auscultation: lungs clear to auscultation bilaterally Cardiovascular RRR, no murmur, no edema Gastrointestinal (Abdomen) this pt has a PD catheder with site clean and dry, abdomen is non tender Musculoskeletal no cyanosis or clubbing, extremities motor strength 5/5 Discharge Data Allergies Allergy/AdvReac Type Severity Reaction Status Date / Time No Known Allergies Allergy Verified 05/26/18 08:28 Consultations 11/03/18 20:48 Consult Steel Division Supervisor Stat 11/03/18 21:11 Consult Case Management - Discharge Planning Routine 11/03/18 22:25 Consult Nephrology Routine Hospital Course (1) Withdrawal from opioids: 33-year-old male with past medical history of end-stage renal disease, type 1 diabetes, opioid abuse, hep C presents with acute opioid withdrawal. Acute opioid withdrawal Missed methadone appointment, holiday hours after additional methadone, the pt feels back to baseline Methadone 85 mg daily Clonazepam 0.5 mg twice daily DVT prophylaxis SCDs CODE STATUS Full (2) Hypertensive urgency: Hypertensive urgency Received IV labetalol Burke, resolved Restart home medicines, given pm doses on am of admission (3) Hypertension: (4) ESRD (end stage renal disease): End-stage renal disease, on peritoneal dialysis Nephrology consult recommendations start PD tonight (5) Hyperglycemia due to type 1 diabetes mellitus: Hyperglycemia in the setting of type 1 diabetes Likely secondary to withdrawal, electrolytes improved, glucose improved, did not have DKA, Glycemic consult has started lantus and stopped gtt, pt requested to leave early to have opthomology appt (6) Gastroparesis: Abdominal pain/gastroparesis? Patient endorses abdominal pain, vomiting over the past couple weeks Worked up for peritonitisnegative blood cultures and peritoneal fluid in the outpatient pt states he is followed for gastroparesis with his doctor chiropractic (7) Hepatitis C: History of hepatitis C Discovered on chart review, did not discuss treatment with the patient Recommend using standard precautions, pt was informed of this finding, recommend follow up with pcp for referral in his area Total Time Total Time Spent Total Time Spent (In Minutes): greater than 30 minutes were required to prepare discharge Discharge Plan Discharge Items Patient Disposition: Home - Self-Care Reason For Visit: UNCONTROLLED HYPERTENSION,DIABETES,END STAGE RENAL Discharge Diagnosis: hypertensive urgency medication withdrawal Discharge Goals: Decrease discomfort Activity: Resume your previous activity Non-emergency contact: Primary Care Provider and Urologist Call non-emergency contact if: you have any medication questions Follow-up/Referrals: Ana M Sanders DO [Physician] - Diet: Carb Consistent or DM2 and Dialysis Renal Addtl Provider Instructions: please follow up with the doctors caring for your blood pressure and your diabetes as early as you are able to please resume you usual home medication schedule this evening Prescriptions: Continued methadone 10 mg Tablet 85 mg PO QAM RF: 0 insulin lispro [Humalog U-100 Insulin] 100 unit/mL Cartridge 1 sliding scale dose SUBCUT UD PRN (Reason: blood sugar) RF: 0 Basaglar KwikPen U-100 Insulin 100 unit/mL (3 mL) Insulin Pen 36 unit subcut QPM RF: 0 metoprolol succinate 50 mg tablet extended release 24 hr 50 mg PO QPM RF: 0 clonazepam 0.5 mg tablet 0.5 mg PO BID RF: 0 bumetanide 1 mg tablet 1 mg PO QAM RF: 0 irbesartan 150 mg tablet 150 mg PO QPM RF: 0 Stand-Alone Forms: [facility] Discharge Orders: Discharge Order (Routine); Ordered 11/04/18 Ordered By: Melquiades Lee Admission Data Admit Date/Time: 11/03/18 20:13 Attending Provider: Melquiades Lee Admit Provider: Craig Ames Primary Care Provider: Douglas Dennison Other Providers: Marielena Escalante ; Masood Berry Rick D Service: Intensive Care Unit Other Interventions: Discharge Summary Assessment (RN) Last Done: 11/04/18 12:54 DC Date/Time DO NOT enter until pt leaves facility: 11/04/18 14:08
[2018-11-04] MEDS ORDERED: CHECK CLONIDINE PATCH PLACEMENT SCH (16:00)
[2018-11-04] MEDS ORDERED: METOPROLOL SUCC 50MG EXT REL TAB PO SCH (21:00)
[2018-11-04] MEDS ORDERED: IRBESARTAN 150 MG TAB PO SCH (21:00)
[2018-11-05] MEDS ORDERED: INSULIN ASPART 100 UNITS/ML 3 ML PEN SC SCH
[2018-11-05] MEDS ORDERED: INSULIN GLARGINE SOLOSTAR 100 UNITS/ML 3 ML PEN SC SCH (09:00)
[2018-11-06 12:03] LABS: 7-Aminoclonaz, Confirm 148 NG/ML (CUTOFF=25); Hydro-Alp Ur, GC/MS 79 NG/ML (CUTOFF=25); Hydroxyethylflurazepam, Conf NEGATIVE NG/ML (CUTOFF=50); Hydroxytriazolam NEGATIVE NG/ML (CUTOFF=50); Lorazepam, Ur GC/MS NEGATIVE NG/ML (CUTOFF=50); Methadone, Ur Metabolite 2370 NG/ML (CUTOFF=100); Nordiazepam, Confirm NEGATIVE NG/ML (CUTOFF=50); Oxazepam Ur, GC/MS NEGATIVE NG/ML (CUTOFF=50); Temazepam, Confirm NEGATIVE NG/ML (CUTOFF=50)
== END 2018-11-04 14:08 | disposition home or self-care (01) | DRG 896 ==
LOC: SUATTDRO 20:13 → 1E 20:13
DX: E11.65 Type 2 diabetes mellitus with hyperglycemia; E10.22 Type 1 diabetes mellitus with diabetic chronic kidney disease; F11.23 Opioid dependence with withdrawal; I16.0 Hypertensive urgency; E10.43 Type 1 diabetes mellitus with diabetic autonomic (poly)neuropathy; N18.6 End stage renal disease; Z99.2 Dependence on renal dialysis; R10.9 Unspecified abdominal pain

== ENCOUNTER 2019-05-20 16:59 | Inpatient (IN) ==
[2019-05-20] MEDS ORDERED: FUROSEMIDE 40 MG/4 ML VIAL IV STA (17:26)
[2019-05-20] MEDS ORDERED: ONDANSETRON INJ 2 MG/ML 2 ML VIAL IV STA (17:26)
[2019-05-20] MEDS ORDERED: METOPROLOL TARTRATE 1 MG/ML VIAL IV STA (17:26)
--- NOTE | 2019-05-20 17:49 | XRay Report ---
XR chest 1V portable HISTORY: weakness COMPARISON: Chest 03/25/2019. FINDINGS: The lungs are clear. Cardiac silhouette is normal in size. No pleural effusions. No pneumot horax. IMPRESSION: No acute process. Electronically signed by: Mookie Velazquez M.D. 05/20/2019 5:48 PM
[2019-05-20 17:59] LABS: Basophils # (auto) 0.03 K/uL (0-0.2); Basophils % (auto) 0.3 %; Eosinophils # (auto) 0.07 K/uL (0-0.5); Eosinophils % (auto) 0.7 %; Hematocrit (blood only) 39.8 % (42-52); Hemoglobin 13.6 g/dL (14.0-18.0); Immature Granulocytes # (auto) 0.02 K/uL (0.00-0.02); Immature Granulocytes % (auto) 0.2 %; Lymphocytes # (auto) 2.22 K/uL (1.2-3.4); Lymphocytes % (auto) 23.2 %; Mean Corpuscular Hemoglobin 29.5 pg (25-34); Mean Corpuscular Hgb Conc 34.2 g/dL (32-36); Mean Corpuscular Volume 86.3 fL (80-100); Mean Platelet Volume 8.8 fL (7.4-10.4); Monocytes # (auto) 0.65 K/uL (0.11-0.59); Monocytes % (auto) 6.8 %; Neutrophils # (auto) 6.57 K/uL (1.4-6.5); Neutrophils % (auto) 68.8 %; Platelet Count 150 K/uL (130-400); RDW Coefficient of Variation 14.8 % (11.5-14.5); RDW Standard Deviation 47.2 fL (36.4-46.3); Red Blood Count 4.61 M/uL (4.7-6.1); White Blood Count 9.56 K/uL (4.8-10.8)
[2019-05-20 18:09] LABS: Partial Thromboplastin Ratio 0.9; Partial Thromboplastin Time 23.3 Seconds (21.0-31.0); Prothrombin Time 9.8 Seconds (9.0-12.0)
--- NOTE | 2019-05-20 18:20 | CT Scan Report ---
CT head/brain wo con CT DOSE: 537.48 mGy.cm HISTORY: Headache PAYNE TECHNIQUE: Multiaxial CT images of the head were performed without the use of intravenous contrast. A dose lowering technique was utilized adhering to the principles of ALARA. Comparison: 04/10/2011 Findings: The paranasal sinuses and mastoid air cells are clear. The calvarium and skull base are int act. The ventricles and sulci are within normal limits. There is no mass, hematoma, midline shift, or acute infarct. Impression: No acute intracranial abnormality. The above report was generated using voice recognition software. It may contain grammatical, syntax or spelling errors. Electronically signed by: Zi Agarwal M.D. 05/20/2019 6:19 PM
[2019-05-20] MEDS ORDERED: LABETALOL HCL IV 5 MG/ML 20ML IV STA (18:28)
[2019-05-20 18:38] LABS: Albumin Globulin Ratio 0.6 (0.9-2); Albumin Level 2.5 gm/dl (3.4-5.0); BUN Creatinine Ratio 5.1 (10-20); Bilirubin,Total 0.4 mg/dl (0.2-1); C Reactive Protein 0.41 mg/dl (0-0.29); Calcium 7.8 mg/dl (8.5-10.1); Creatinine Clr Calc Pharmacy 12.4 ml/min; Est GFR (African American) 8.9; Est GFR (Non-African American) 7.7; Globulin 3.9 gm/dl (2.5-4.0); Potassium 3.8 mmol/L (3.5-5.1); Total Protein 6.4 gm/dl (6.4-8.2); Troponin I 0.034 ng/ml (0-0.045)
[2019-05-20 18:52] LABS: Beta-Hydroxybutyrate 2.23 mg/dl (0.2-2.81)
[2019-05-20] MEDS ORDERED: ACETAMINOPHEN 500 MG TAB ONE (19:16)
[2019-05-20] MEDS ORDERED: HydrALAZINE HCL 20 MG/ML VIAL IV STA (19:17)
[2019-05-20 20:04] LABS: Appearance Urine Clear (Clear); Bacteria Urine Automated Negative (Negative); Bilirubin Urine Negative (Negative); Blood Urine 2+ (Negative); Color Urine Yellow; Glucose Urine UA 3+ (Negative); Ketones Urine Negative (Negative); Leukocyte Esterase Urine Negative (Negative); Nitrite Urine Negative (Negative); Specific Gravity Urine 1.016 (1.000-1.030); Urobilinogen Urine Negative (Negative); pH Urine 7.5 (4.5-7.5)
[2019-05-20 20:06] LABS: Protein Urine 3+ (Negative)
[2019-05-20 20:08] LABS: Sulfosalicylic Acid Urine Positive (Negative)
[2019-05-20] MEDS ORDERED: LABETALOL HCL 300 MG in DEXTROSE 5% 240 ML IV SCH (20:15)
[2019-05-20] MEDS ORDERED: FAMOTIDINE 20MG IV PUSH 20 MG/5 ML SYR IV STA (20:20)
[2019-05-20] MEDS ORDERED: NovoLIN-R INSULIN PER UNIT CHARGE IV STA (20:21)
[2019-05-20 20:22] LABS: Sperm Urine Present (None Prsent)
[2019-05-20] MEDS ORDERED: cloNIDine HCL 0.1 MG TAB PO STA (21:01)
[2019-05-20] MEDS ORDERED: MoRPHine SULFATE 2 MG/ML CARP IV STA (21:14)
[2019-05-20] MEDS ORDERED: cloNIDine HCL 0.1 MG/24 HR TRANSDERM SYS TD SCH (21:15)
[2019-05-20] MEDS ORDERED: MAGNESIUM HYDROXIDE SUSP 30 ML UDC PO PRN (21:24)
[2019-05-20] MEDS ORDERED: ZOLPIDEM TARTRATE 5 MG TAB PO PRN (21:24)
[2019-05-20] MEDS ORDERED: ALUMINUM/MAGNESIUM SUSP 30 ML UDC PO PRN (21:24)
[2019-05-20] MEDS ORDERED: ONDANSETRON INJ 2 MG/ML 2 ML VIAL IV PRN (21:24)
[2019-05-20] MEDS ORDERED: ACETAMINOPHEN 325 MG TAB PO PRN (21:24)
[2019-05-20] MEDS ORDERED: POLYETHYLENE (MIRALAX) 17 GM PACK PO PRN (21:24)
[2019-05-20] MEDS ORDERED: MoRPHine SULFATE 2 MG/ML CARP IV PRN (21:24)
--- NOTE | 2019-05-20 21:43 | History & Physical Report ---
Date of Service May 20, 2019 Assessment & Plan (1) Hypertensive crisis: Likely secondary to clonidine rebound He was giving Zofran for nausea/vomiting, currently can tolerate 1 dose of clonidine p.o. Attach clonidine patch on him Hydralazine IV as needed systolic blood pressure more than 190 Restart blood pressure medications from tomorrow except Bumex due to underlying dehydration Pured diet Heparin subcu for DVT prophylaxis (2) Nausea & vomiting: Differential diagnoses include gastritis/diabetic gastropathy Currently received GI cocktail, Pepcid IV, Protonix p.o. Appears to be improved If relapsed will consider second level work-up, imaging gallbladder, gastric emptying study, etc. (3) Hyperglycemia: Anion gap is only 90 Received insulin IV/subcu Restart his Lantus 30 units daily Monitor blood sugar level Sliding scale insulin (4) End stage renal disease on dialysis due to type 1 diabetes mellitus: Consult dividing machine operator helper, for dialysis Obtain peritoneal fluid for culture, cell count to rule out peritonitis Empiric ceftriaxone Order procalcitonin (5) Peritoneal dialysis catheter in place: As above History of Present Illness Chief Complaint: Significant abdominal pain/vomiting Primary Care Provider: Douglas Dennison, 33 years old man with past medical history of type 1 diabetes mellitus, end- stage renal disease on peritoneal dialysis, opioid abuse currently on methadone, hepatitis C, essential hypertension among others who developed today acute onset abdominal pain and vomiting. Due to that he vomited his methadone, and was not able to take anything by mouth. Yesterday he was due to change his clonidine patch and he removed it but he never placed anyone. He said that he took his insulin yesterday but he did not take it today as he is supposed to take it at night. In the ED his systolic blood pressure was more than 230, he had significant abdominal pain and vomiting and body aches. Allergies Allergy/AdvReac Type Severity Reaction Status Date / Time No Known Allergies Allergy Verified 05/20/19 19:40 Home Medications Home Medications Medication Instructions Recorded Confirmed Type Humalog U-100 Insulin 1 sliding scale dose SUBCUT UD PRN 05/23/18 05/20/19 History methadone 85 mg PO QAM 05/23/18 05/20/19 History bumetanide 1 mg PO QAM 11/03/18 05/20/19 History clonazepam 0.5 mg PO BID 11/03/18 05/20/19 History irbesartan 150 mg PO QAM 11/03/18 05/20/19 History insulin glargine [Lantus U-100 30 unit SUBCUT HS 03/24/19 05/20/19 History Insulin] sucroferric oxyhydroxide [Velphoro] 1,000 mg PO TIDM 03/24/19 05/20/19 History B complex-vitamin C-folic acid 0.8 mg PO DAILY 05/20/19 05/20/19 History [Fransisca-Jj] calcium acetate 1,334 mg PO TIDM 05/20/19 05/20/19 History clonidine 1 patch TRANSDERMAL WK 05/20/19 05/20/19 History metoprolol tartrate 25 mg PO HS 05/20/19 05/20/19 History Past Med/Surg History Medical History Anxiety Diabetes mellitus type 1 Diabetic retinopathy of both eyes ESRD (end stage renal disease) on peritoneal dialysis HS (10 hour treatments) Gastroparesis Hepatitis C History of seizure seizure-like activity 02/14/2019 in setting of severe hyperglycemia (patient states he missed dialysis/insulin dose), DKA, confusion- lifeflighted to [place]/intubated/placed on ventilator. DKA managed with insulin drip on admission. EEG with no seizure activity noted. Neurology consulted and initially started patient on prophylactic Keppra but suspected seizure was complication of hyperglycemia and recommended weaning off anticonvulsants/advised no further neurology workup needed. Per patient, medication/dialysis compliance since discharge with glucoses in the range on 100's-200's on self-checks. Hypertension Peritonitis currently on intraperitoneal abx Surgical History Hx of tooth extraction Hx of vitrectomy B/L; right vitrectomy: 05/26/18[place] [facility] [place]itoneal dialysis catheter in place Family History Grandfather (Maternal) Family history of diabetes mellitus Grandfather (Paternal) Family history of diabetes mellitus Grandmother (Paternal) Family history of diabetes mellitus Grandmother (Maternal) Family history of diabetes mellitus Aunt Family history of diabetes mellitus Uncle Family history of diabetes mellitus Social History Preferred Language: Italian Communication Ability: Effective Visual C Developer Required: No Beliefs That Will Affect Care: None Current Living Situation: Family Current Living Situation Comment: brother and Feels Safe at Home: Yes Smoking Status: Never smoker Tobacco Type: cigarettes ; Second Hand Exposure: No ; Hx Alcohol Use: No Hx Substance Use: Yes substance use type: former substance user and painkillers Substance Use Type Other:: CURRENTLY ON METHADONE - HX OPIOID DEPENDENCE (10 YEARS AGO) Review of Systems Review of Systems: Review of system Constitutional: Generalized weakness and fatigue Eyes: no blurring of vision / no eye pain / no discharge / no redness ENT: no hearing loss / no epistaxis /no swallowing problems Respiratory: no cough / no wheezing / no SOB / no hemoptysis Cardiovascular: no Chest pain / no lower extremity edema / no palpitation Abdomen: Abdominal pain, especially around peritoneal catheter, nausea/vomiting no hematemesis Musculoskeletal: Generalized body ache and abdominal ache, joint ache muscle ache Genitourinary: no dysuria / no incontinence / no urinary retention Neurologic: no focal weakness / no numbness/tingling / no ataxia Psychiatric: no depression symptoms / no anxiety / no insomnia Endocrine: no excessive thirst / no excessive urination Hematologic: no abnormal bleeding / no bruising / no LN swelling Skin: No rash / no pallor Physical Exam Physical Exam: Physical examination General average built appears to be in moderate distress HEENT: Atraumatic , normocephalic /no jaundice /no pallor /anicteric /no dry mucous membrane /normal external ear inspection Neck: Supple /no swelling /central trach Heart: S1/S2 slight tachycardia/regular rhythm/no gallop /no rub /no murmur Lungs: Clear to auscultation bilaterally/normal chest with expansion/no rhonchi/no rales/no wheezing/no use of accessory muscles of respiration Abdomen: Soft but has generalized tenderness especially around peritoneal dialysis, peritoneal dialysis exit appears to be noninfected Musculoskeletal: No swelling/no edema/no tenderness/normal range of motion Neuro exam: Awake alert oriented 3/cranial nerves II through XII appear to be intact/sensation intact/moves all extremities/no abnormal movements Psychiatric evaluation: No depressed mood/normal affect Skin: No rash on exposed skin area/no erythema Extremity: Normal pulse/no pitting edema/no clubbing or cyanosis Endocrine/lymphatic: No obvious lymphadenopathy /no lymphedema Results & Data Vital Signs (Past 12 Hours) Vital Signs Temp Pulse Resp BP Pulse Ox 05/20/19 20:50 90 8 L 99 05/20/19 20:45 89 15 236/129 H 99 05/20/19 20:40 88 13 99 05/20/19 20:31 89 15 99 05/20/19 20:30 89 12 211/114 H 99 05/20/19 20:20 89 14 99 05/20/19 20:15 90 19 229/128 H 98 05/20/19 20:10 91 H 19 100 05/20/19 20:01 90 17 100 05/20/19 20:00 89 12 215/122 H 100 05/20/19 19:56 89 11 L 224/133 H 100 05/20/19 19:50 95 H 15 100 05/20/19 19:40 88 10 L 100 05/20/19 19:30 87 1 L 99 05/20/19 19:26 87 13 98 05/20/19 19:25 88 16 252/151 H 99 05/20/19 19:20 87 7 L 100 05/20/19 19:10 88 20 253/154 H 99 05/20/19 18:45 84 11 L 100 05/20/19 18:44 83 12 260/153 H 100 05/20/19 18:40 82 13 99 05/20/19 18:30 85 21 100 05/20/19 18:26 100 05/20/19 18:22 85 11 L 100 05/20/19 18:21 85 14 258/155 H 100 05/20/19 18:20 86 8 L 100 05/20/19 18:07 284/162 H 05/20/19 18:03 82 12 277/156 H 100 05/20/19 18:02 83 21 100 05/20/19 18:00 85 16 99 05/20/19 17:59 87 6 L 100 05/20/19 17:56 94 H 17 276/164 H 100 05/20/19 17:45 94 H 12 100 05/20/19 17:30 95 H 13 100 05/20/19 17:24 98 H 19 100 05/20/19 17:21 93 H 8 L 100 05/20/19 17:15 94 H 9 L 281/161 H 05/20/19 17:01 36.6 C 98 H 18 260/157 H 98 Code Status & VTE Plan VTE Prophylaxis Plan VTE Prophylaxis will be ordered: Yes PG Care Time/CCT Total # of Minutes Spent Total Time Spent with Patient: 35 minutes total time spent is greater than 50% in coordination of care (as documented) at patient's floor/unit and/or counseling patient/family discussion of care with nursing staff (1) Nausea & vomiting Vomiting Intractability: non-intractable Vomiting type: unspecified Qualified Code(s): R11.2 - Nausea with vomiting, unspecified
[2019-05-20 21:45] LABS: iSTAT Creatinine 8.3 mg/dl (0.6-1.3); iSTAT Hemoglobin 14.3 g/dl (14.0-18.0); iSTAT Ionized Calcium 1.01 mmol/l (1.12-1.32); iSTAT Potassium 3.9 mEq/L (3.3-5.0)
--- NOTE | 2019-05-20 22:09 | Emergency Department Note ---
Entered by Kristin Preciado acting as a scribe for Haseeb Ribeiro DO History of Present Illness General Chief complaint: Illness Stated complaint: FLU, CAN'T HOLD ANYTHING DOWN Time Seen by Provider: 05/20/19 17:18 Source: patient History of Present Illness Onset (ago): day(s) 1 Location: head (nausea) Severity: mild Pain Consistency: + other (persistent) Maximum Pain Intensity: 5 Quality: + other (nausea) Associated symptoms: + headaches and + nausea/vomiting; no other (lower extremity swelling, cloudy urine) Treatments prior to arrival: none The patient is a 33 year old male presenting to the Emergency Department complaining of persistent nausea starting 1 day ago. The patient reports that he is nauseous and has been vomiting for the past day. He explains that he has a mild headache. He states that he took his medications including methadone this morning but that he puked them up. He notes that he hasnt been able to take any medications [employer] [facility] for his symptoms. The patient reports that he was at dialysis [facility] and that he gets dialysis daily. He states that his dialysis nurse recommended that he come to ED. He notes that he produces his own urine. He adds that he chews tobacco. The patient denies lower extremity swelling, cloudy urine, alcohol use and drug use. Home Medications Home Medications Medication Instructions Recorded Confirmed Type Humalog U-100 Insulin 1 sliding scale dose SUBCUT UD PRN 05/23/18 05/20/19 History methadone 85 mg PO QAM 05/23/18 05/20/19 History bumetanide 1 mg PO QAM 11/03/18 05/20/19 History clonazepam 0.5 mg PO BID 11/03/18 05/20/19 History irbesartan 150 mg PO QAM 11/03/18 05/20/19 History insulin glargine [Lantus U-100 30 unit SUBCUT HS 03/24/19 05/20/19 History Insulin] sucroferric oxyhydroxide [Velphoro] 1,000 mg PO TIDM 03/24/19 05/20/19 History B complex-vitamin C-folic acid 0.8 mg PO DAILY 05/20/19 05/20/19 History [Fransisca-Jj] calcium acetate 1,334 mg PO TIDM 05/20/19 05/20/19 History clonidine 1 patch TRANSDERMAL WK 05/20/19 05/20/19 History metoprolol tartrate 25 mg PO HS 05/20/19 05/20/19 History Allergies Allergy/AdvReac Type Severity Reaction Status Date / Time No Known Allergies Allergy Verified 05/20/19 19:40 Past Med/Surg History Medical History Anxiety Diabetes mellitus type 1 Diabetic retinopathy of both eyes ESRD (end stage renal disease) on peritoneal dialysis HS (10 hour treatments) Gastroparesis Hepatitis C History of seizure seizure-like activity 02/14/2019 in setting of severe hyperglycemia (patient states he missed dialysis/insulin dose), DKA, confusion- lifeflighted to [place]/intubated/placed on ventilator. DKA managed with insulin drip on admission. EEG with no seizure activity noted. Neurology consulted and initially started patient on prophylactic Keppra but suspected seizure was complication of hyperglycemia and recommended weaning off anticonvulsants/advised no further neurology workup needed. Per patient, medication/dialysis compliance since discharge with glucoses in the range on 100's-200's on self-checks. Hypertension Peritonitis currently on intraperitoneal abx Surgical History Hx of tooth extraction Hx of vitrectomy B/L; right vitrectomy: 05/26/18: LMA#5 at [facility] [place] Peritoneal dialysis catheter in place Family History Grandfather (Maternal) Family history of diabetes mellitus Grandfather (Paternal) Family history of diabetes mellitus Grandmother (Paternal) Family history of diabetes mellitus Grandmother (Maternal) Family history of diabetes mellitus Aunt Family history of diabetes mellitus Uncle Family history of diabetes mellitus Social History Preferred Language: Pashto Communication Ability: Effective 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 and A total of 10 systems reviewed and were otherwise negative Physical Exam Vital Signs Vital Signs - 24 hr 05/20/19 17:01 05/20/19 17:15 05/20/19 17:21 Temperature 36.6 C Temperature Source Oral Pulse Rate 98 H 94 H 93 H Pulse Rate from SpO2 Sensor 94 H Respiratory Rate 18 9 L 8 L Blood Pressure 260/157 H 281/161 H Blood Pressure Mean 191 196 216 Pulse Oximetry 98 100 Oxygen Delivery Method Room Air Sepsis Recent Fever Within 48 Hours No Sepsis New/Unexplained Change in Mental Status No Sepsis Action Taken by Nursing No Action Required 05/20/19 17:24 05/20/19 17:30 05/20/19 17:45 Temperature Temperature Source Pulse Rate 98 H 95 H 94 H Pulse Rate from SpO2 Sensor 97 H 95 H 95 H Respiratory Rate 19 13 12 Blood Pressure Blood Pressure Mean 227 236 224 Pulse Oximetry 100 100 100 Oxygen Delivery Method Sepsis Recent Fever Within 48 Hours Sepsis New/Unexplained Change in Mental Status Sepsis Action Taken by Nursing 05/20/19 17:56 05/20/19 17:59 05/20/19 18:00 Temperature Temperature Source Pulse Rate 94 H 87 85 Pulse Rate from SpO2 Sensor 94 H 87 86 Respiratory Rate 17 6 L 16 Blood Pressure 276/164 H Blood Pressure Mean 216 206 206 Pulse Oximetry 100 100 99 Oxygen Delivery Method Sepsis Recent Fever Within 48 Hours Sepsis New/Unexplained Change in Mental Status Sepsis Action Taken by Nursing 05/20/19 18:02 05/20/19 18:03 05/20/19 18:07 Temperature Temperature Source Pulse Rate 83 82 Pulse Rate from SpO2 Sensor 83 82 Respiratory Rate 21 12 Blood Pressure 277/156 H 284/162 H Blood Pressure Mean 197 215 Pulse Oximetry 100 100 Oxygen Delivery Method Sepsis Recent Fever Within 48 Hours Sepsis New/Unexplained Change in Mental Status Sepsis Action Taken by Nursing 05/20/19 18:20 05/20/19 18:21 05/20/19 18:22 Temperature Temperature Source Pulse Rate 86 85 85 Pulse Rate from SpO2 Sensor 86 85 85 Respiratory Rate 8 L 14 11 L Blood Pressure 258/155 H Blood Pressure Mean 201 Pulse Oximetry 100 100 100 Oxygen Delivery Method Room Air Sepsis Recent Fever Within 48 Hours Sepsis New/Unexplained Change in Mental Status Sepsis Action Taken by Nursing 05/20/19 18:26 05/20/19 18:30 05/20/19 18:40 Temperature Temperature Source Pulse Rate 85 82 Pulse Rate from SpO2 Sensor 85 82 Respiratory Rate 21 13 Blood Pressure Blood Pressure Mean Pulse Oximetry 100 100 99 Oxygen Delivery Method Room Air Room Air Room Air Sepsis Recent Fever Within 48 Hours Sepsis New/Unexplained Change in Mental Status Sepsis Action Taken by Nursing 05/20/19 18:44 05/20/19 18:45 05/20/19 19:10 Temperature Temperature Source Pulse Rate 83 84 88 Pulse Rate from SpO2 Sensor 83 84 88 Respiratory Rate 12 11 L 20 Blood Pressure 260/153 H 253/154 H Blood Pressure Mean 199 181 Pulse Oximetry 100 100 99 Oxygen Delivery Method Room Air Room Air Room Air Sepsis Recent Fever Within 48 Hours Sepsis New/Unexplained Change in Mental Status Sepsis Action Taken by Nursing 05/20/19 19:20 05/20/19 19:25 05/20/19 19:26 Temperature Temperature Source Pulse Rate 87 88 87 Pulse Rate from SpO2 Sensor 87 88 87 Respiratory Rate 7 L 16 13 Blood Pressure 252/151 H Blood Pressure Mean 188 Pulse Oximetry 100 99 98 Oxygen Delivery Method Room Air Room Air Room Air Sepsis Recent Fever Within 48 Hours Sepsis New/Unexplained Change in Mental Status Sepsis Action Taken by Nursing 05/20/19 19:30 05/20/19 19:40 05/20/19 19:50 Temperature Temperature Source Pulse Rate 87 88 95 H Pulse Rate from SpO2 Sensor 87 88 95 H Respiratory Rate 1 L 10 L 15 Blood Pressure Blood Pressure Mean Pulse Oximetry 99 100 100 Oxygen Delivery Method Room Air Room Air Room Air Sepsis Recent Fever Within 48 Hours Sepsis New/Unexplained Change in Mental Status Sepsis Action Taken by Nursing 05/20/19 19:56 05/20/19 20:00 05/20/19 20:01 Temperature Temperature Source Pulse Rate 89 89 90 Pulse Rate from SpO2 Sensor 89 89 92 H Respiratory Rate 11 L 12 17 Blood Pressure 224/133 H 215/122 H Blood Pressure Mean 177 154 Pulse Oximetry 100 100 100 Oxygen Delivery Method Room Air Room Air Room Air Sepsis Recent Fever Within 48 Hours Sepsis New/Unexplained Change in Mental Status Sepsis Action Taken by Nursing 05/20/19 20:10 05/20/19 20:15 05/20/19 20:20 Temperature Temperature Source Pulse Rate 91 H 90 89 Pulse Rate from SpO2 Sensor 91 H 90 89 Respiratory Rate 19 19 14 Blood Pressure 229/128 H Blood Pressure Mean 170 Pulse Oximetry 100 98 99 Oxygen Delivery Method Room Air Room Air Room Air Sepsis Recent Fever Within 48 Hours Sepsis New/Unexplained Change in Mental Status Sepsis Action Taken by Nursing 05/20/19 20:30 05/20/19 20:31 05/20/19 20:40 Temperature Temperature Source Pulse Rate 89 89 88 Pulse Rate from SpO2 Sensor 89 89 88 Respiratory Rate 12 15 13 Blood Pressure 211/114 H Blood Pressure Mean 150 Pulse Oximetry 99 99 99 Oxygen Delivery Method Room Air Room Air Room Air Sepsis Recent Fever Within 48 Hours Sepsis New/Unexplained Change in Mental Status Sepsis Action Taken by Nursing 05/20/19 20:45 05/20/19 20:50 Temperature Temperature Source Pulse Rate 89 90 Pulse Rate from SpO2 Sensor 89 90 Respiratory Rate 15 8 L Blood Pressure 236/129 H Blood Pressure Mean 176 Pulse Oximetry 99 99 Oxygen Delivery Method Room Air Room Air Sepsis Recent Fever Within 48 Hours Sepsis New/Unexplained Change in Mental Status Sepsis Action Taken by Nursing GENERAL: Patient is awake, alert, and in no acute distress.Patient is resting comfortably and showing no signs of anxiety EYES: The conjunctivae are clear. The pupils are round and reactive. EARS, NOSE, MOUTH AND THROAT: The nose is without any evidence of any deformity. Mucous membranes are moist.Tongue is midline NECK: The neck is nontender and supple. RESPIRATORY: Normal respiratory effort is noted. There is no evidence of wheezing rhonchi or rales to auscultation. CARDIOVASCULAR: Regular rate and rhythm noted. There no murmurs rubs or gallops normal S1 normal S2 GASTROINTESTINAL: The abdomen is soft. Bowel sounds are present in all quadrants. Abdomen is nontender. MUSCULOSKELETAL/EXTREMITIES: There is no evidence of gross deformity. Full range of motion is noted in the hips and shoulders. SKIN: There is no obvious evidence of any rash. There are no petechiae, pallor or cyanosis noted. NEUROLOGIC: Patient is awake alert and oriented x3. Strength is symmetric. Course Course 1720: The patient was evaluated in room B1, and a complete history and physical examination were performed. 1855: I checked on the patient at this time. 2003: I reevaluated the patient at this time. 2019: I discussed the patient's case with [place] [facility] [place]. He will evaluate the patient for further management. Administered Medications Clonidine HCl ([id number] 0.2mg/24hr) 1 patch TD CQWK AYESHA Stop: 06/19/19 20:29 Last Admin: 05/20/19 20:53 Dose: 1 patch Documented by: [id number] Discontinued Medications Acetaminophen (Tylenol) Confirm Administered Dose 1,000 mg .ROUTE .STK-MED ONE Stop: 05/20/19 19:17 Last Admin: 05/20/19 19:22 Dose: 1,000 mg Documented by: [id number] Clonidine HCl (Catapres) 0.1 mg PO NOW STA Stop: 05/20/19 21:02 Last Admin: 05/20/19 21:12 Dose: 0.1 mg Documented by: [id number] Furosemide (Lasix) 40 mg IV NOW STA Stop: 05/20/19 17:27 Last Admin: 05/20/19 17:54 Dose: 40 mg Documented by: [id number] Hydralazine HCl (Hydralazine Hcl) 5 mg IV NOW STA Stop: 05/20/19 19:18 Last Admin: 05/20/19 19:25 Dose: 5 mg Documented by: [id number] Famotidine (Pepcid 20mg Iv Push) 20 mg in 5 mls @ 2.5 mls/min IV NOW STA Stop: 05/20/19 20:21 Last Admin: 05/20/19 20:39 Dose: 2.5 mls/min Documented by: [id number] Insulin Human Regular (Novolin R U-100 Per Unit) 4 units IV NOW STA Stop: 05/20/19 20:22 Last Admin: 05/20/19 20:39 Dose: 4 units Documented by: [id number] Cosigned by: [id number] Labetalol HCl (Normodyne) 10 mg IV NOW STA Stop: 05/20/19 18:29 Last Admin: 05/20/19 18:44 Dose: 10 mg Documented by: [id number] Cosigned by: [id number] Metoprolol Tartrate (Lopressor) 5 mg IV NOW STA Stop: 05/20/19 17:27 Last Admin: 05/20/19 17:54 Dose: 5 mg Documented by: [id number] Morphine Sulfate (Morphine Sulfate) 2 mg IV NOW STA Stop: 05/20/19 21:15 Last Admin: 05/20/19 21:28 Dose: 2 mg Documented by: [id number] Ondansetron HCl (Zofran) 4 mg IV NOW STA Stop: 05/20/19 17:27 Last Admin: 05/20/19 17:54 Dose: 4 mg Documented by: [id number] Critical Care Time Critical Care Time: Yes Total Critical Care Time: 60 I have personally spent 60 minutes of critical care time in the direct management of this patient. This includes bedside care, interpretation of diagnostic studies, and testing, discussion with consultants, patient, and family members, and other required patient management activities. This 60 minutes is in excess of all separately billable procedures. Medical Decision Making Differential Diagnosis Differential Diagnosis includes but is not limited to dehydration, stroke, anemia, hypoglycemia, hyponatremia, hypernatremia, urinary tract infection, pneumonia, bronchitis, sepsis, gastroenteritis, additional abdominal pathology, metabolic abnormalities and infections. Medical Records Attestation: I reviewed the patient's medical records. Home Medications Current Medication List: was personally reviewed by me Laboratory Data Attestation: I reviewed the patient's lab results. Result diagrams: 05/20/19 17:38 05/20/19 17:38 Lab Results 05/20/19 05/20/19 05/20/19 Range/Units 17:38 17:38 17:38 WBC 9.56 (4.8-10.8) K/uL RBC 4.61 L (4.7-6.1) M/uL Hgb 13.6 L (14.0-18.0) g/dL POC Hgb (14.0-18.0) g/dl Hct 39.8 L (42-52) % POC Hct (42-52) % MCV 86.3 (80-100) fL MCH 29.5 (25-34) pg MCHC 34.2 (32-36) g/dL RDW Std Deviation 47.2 H (36.4-46.3) fL RDW Coeff of Rebecca 14.8 H (11.5-14.5) % Plt Count 150 (130-400) K/uL MPV 8.8 (7.4-10.4) fL Immature Gran % (Auto) 0.2 % Neut % (Auto) 68.8 % Lymph % (Auto) 23.2 % Ross % (Auto) 6.8 % Eos % (Auto) 0.7 % Baso % (Auto) 0.3 % Immature Gran # (Auto) 0.02 (0.00-0.02) K/uL Neut # (Auto) 6.57 H (1.4-6.5) K/uL Lymph # (Auto) 2.22 (1.2-3.4) K/uL Ross # (Auto) 0.65 H (0.11-0.59) K/uL Eos # (Auto) 0.07 (0-0.5) K/uL Baso # (Auto) 0.03 (0-0.2) K/uL ESR 28 H (0-14) mm/hr PT 9.8 (9.0-12.0) Seconds INR 1.0 (0.9-1.1) APTT 23.3 (21.0-31.0) Seconds PTT Ratio 0.9 POC Sodium (135-144) mEq/L Sodium (136-145) mmol/L POC Potassium (3.3-5.0) mEq/L Potassium (3.5-5.1) mmol/L POC Chloride (101-112) mEq/L Chloride (98-107) mmol/L Carbon Dioxide (21-32) mmol/L POC Total CO2 (24-31) mEq/l Anion Gap (3-11) POC Anion Gap (16-25) mmol/L POC BUN (7-18) mg/dl BUN (7-18) mg/dl Creatinine (0.6-1.4) mg/dl POC Creatinine (0.6-1.3) mg/dl Est Cr Clr Drug Dosing ml/min Est GFR ( Amer) Est GFR (Non-Af Amer) BUN/Creatinine Ratio (10-20) Glucose (70-99) mg/dl POC Glucose (other) (70-99) mg/dl Calcium (8.5-10.1) mg/dl POC Ioniz Calcium Liya (1.12-1.32) mmol/l Total Bilirubin (0.2-1) mg/dl AST (15-37) U/L ALT (12-78) U/L Alkaline Phosphatase (45-117) U/L Troponin I (0-0.045) ng/ml C-Reactive Protein (0-0.29) mg/dl Total Protein (6.4-8.2) gm/dl Albumin (3.4-5.0) gm/dl Globulin (2.5-4.0) gm/dl Albumin/Globulin Ratio (0.9-2) Lipase (73-393) U/L Beta-Hydroxybutyric Acd (0.2-2.81) mg/dl Urine Color Urine Appearance (Clear) Urine pH (4.5-7.5) Ur Specific [place] (1.000-1.030) Urine Protein (Negative) Urine Glucose (UA) (Negative) Urine Ketones (Negative) Urine Blood (Negative) Urine Nitrite (Negative) Urine Bilirubin (Negative) Urine Urobilinogen (Negative) Ur Leukocyte Esterase (Negative) Urine WBC (Auto) (0-5) /hpf Urine RBC (Auto) (0-4) /hpf U Hyaline Cast (Auto) (0-5) /lpf U Epithel Cells (Auto) (0-5) /lpf Urine Bacteria (Auto) (Negative) Urine Sperm (None Prsent) 05/20/19 05/20/19 05/20/19 Range/Units 17:38 17:40 19:29 WBC (4.8-10.8) K/uL RBC (4.7-6.1) M/uL Hgb (14.0-18.0) g/dL POC Hgb 14.3 (14.0-18.0) g/dl Hct (42-52) % POC Hct 42 (42-52) % MCV (80-100) fL MCH (25-34) pg MCHC (32-36) g/dL RDW Std Deviation (36.4-46.3) fL RDW Coeff of Rebecca (11.5-14.5) % Plt Count (130-400) K/uL MPV (7.4-10.4) fL Immature Gran % (Auto) % Neut % (Auto) % Lymph % (Auto) % Ross % (Auto) % Eos % (Auto) % Baso % (Auto) % Immature Gran # (Auto) (0.00-0.02) K/uL Neut # (Auto) (1.4-6.5) K/uL Lymph # (Auto) (1.2-3.4) K/uL Ross # (Auto) (0.11-0.59) K/uL Eos # (Auto) (0-0.5) K/uL Baso # (Auto) (0-0.2) K/uL ESR (0-14) mm/hr PT (9.0-12.0) Seconds INR (0.9-1.1) APTT (21.0-31.0) Seconds PTT Ratio POC Sodium 133 L (135-144) mEq/L Sodium 132 L (136-145) mmol/L POC Potassium 3.9 (3.3-5.0) mEq/L Potassium 3.8 (3.5-5.1) mmol/L POC Chloride 96 L (101-112) mEq/L Chloride 97 L (98-107) mmol/L Carbon Dioxide 26 (21-32) mmol/L POC Total CO2 25 (24-31) mEq/l Anion Gap 9.0 (3-11) POC Anion Gap 16.0 (16-25) mmol/L POC BUN 38 H (7-18) mg/dl BUN 41 H (7-18) mg/dl Creatinine 8.12 H* (0.6-1.4) mg/dl POC Creatinine 8.3 H* (0.6-1.3) mg/dl Est Cr Clr Drug Dosing 12.4 ml/min Est GFR ( Amer) 8.9 Est GFR (Non-Af Amer) 7.7 BUN/Creatinine Ratio 5.1 L (10-20) Glucose 404 H* (70-99) mg/dl POC Glucose (other) 412 H* (70-99) mg/dl Calcium 7.8 L (8.5-10.1) mg/dl POC Ioniz Calcium Liya 1.01 L (1.12-1.32) mmol/l Total Bilirubin 0.4 (0.2-1) mg/dl AST 23 (15-37) U/L ALT 33 (12-78) U/L Alkaline Phosphatase 122 H (45-117) U/L Troponin I 0.034 (0-0.045) ng/ml C-Reactive Protein 0.41 H (0-0.29) mg/dl Total Protein 6.4 (6.4-8.2) gm/dl Albumin 2.5 L (3.4-5.0) gm/dl Globulin 3.9 (2.5-4.0) gm/dl Albumin/Globulin Ratio 0.6 L (0.9-2) Lipase 26 L (73-393) U/L Beta-Hydroxybutyric Acd 2.23 (0.2-2.81) mg/dl Urine Color Yellow Urine Appearance Clear (Clear) Urine pH 7.5 (4.5-7.5) Ur Specific [place] 1.016 (1.000-1.030) Urine Protein 3+ H (Negative) Urine Glucose (UA) 3+ H (Negative) Urine Ketones Negative (Negative) Urine Blood 2+ H (Negative) Urine Nitrite Negative (Negative) Urine Bilirubin Negative (Negative) Urine Urobilinogen Negative (Negative) Ur Leukocyte Esterase Negative (Negative) Urine WBC (Auto) 1-5 (0-5) /hpf Urine RBC (Auto) 5-10 H (0-4) /hpf U Hyaline Cast (Auto) 1-5 (0-5) /lpf U Epithel Cells (Auto) 10-20 H (0-5) /lpf Urine Bacteria (Auto) Negative (Negative) Urine Sperm Present A (None Prsent) Imaging Data Radiologist's Impression: Radiology results as stated below per my review and the radiologist's interpretation: CT head/brain wo con CT DOSE: 537.48 mGy.cm HISTORY: Headache PAYNE TECHNIQUE: Multiaxial CT images of the head were performed without the use of intravenous contrast. A dose lowering technique was utilized adhering to the principles of ALARA. Comparison: 04/10/2011 Findings: The paranasal sinuses and mastoid air cells are clear. The calvarium and skull base are intact. The ventricles and sulci are within normal limits. There is no mass, hematoma, midline shift, or acute infarct. Impression: No acute intracranial abnormality. The above report was generated using voice recognition software. It may contain grammatical, syntax or spelling errors. Electronically signed by: Zi Agarwal M.D. 05/20/2019 6:19 PM XR chest 1V portable HISTORY: weakness COMPARISON: Chest 03/25/2019. FINDINGS: The lungs are clear. Cardiac silhouette is normal in size. No pleural effusions. No pneumothorax. IMPRESSION: No acute process. Electronically signed by: Mookie Velazquez M.D. 05/20/2019 5:48 PM ECG Data Attestation: I personally reviewed and interpreted this ECG as follows: Indication: + nausea Rate (beats per minute): 94 Rhythm: + normal sinus ECG ST segments: no ST depression and no ST elevation ECG Findings: no PACs and no PVCs Comparison ECG Date: from (11/04/18) Change: no significant change Blood Pressure Blood Pressure Findings: Elevated blood pressure Blood Pressure Disposition: further management by hospitalist [facility] Narrative The patient is a 33-year-old male who presented to the emergency department for multiple complaints. The patient was found to have very elevated blood pressure. He states that he missed his methadone treatment today. He has been having nausea and vomiting. He also has not been compliant with his hy pertension medications including his clonidine. The patient was treated with multiple doses of IV antihypertensive. He was treated with IV antiemetics as well. I discussed the patient's laboratory and radiographic studies with him. Because of his symptoms he was treated with IV insulin. I also discussed his case with the on-call amount at [facility] hospitalist as well. I discussed his findings with the emergency department pharmacist. Further antihypertensive choices were made and the patient was still found to have very elevated blood pressure. This reason I do feel the patient may require further inpatient management and a slow management of his hypertension. He states that his dialysis fluid on his peritoneal dialysis has been clear. He did not have a physical exam consistent with an acute surgical abdomen. White blood cell count and inflammatory markers do not appear to be consistent with infection. Impression & Plan Hypertensive crisis, Nausea & vomiting, Hyperglycemia, Renal failure Discharge Plan Visit Data Chief Complaint: Illness Stated Complaint: FLU, CAN'T HOLD ANYTHING DOWN ED Provider: Haseeb Ribeiro Discharge Problem: Hypertensive crisis, Nausea & vomiting, Hyperglycemia, Renal failure Patient Disposition: Being Evaluated by Hospitalist Forms Stand Alone Forms: My [facility] Prescriptions Prescriptions: No Action methadone 10 mg Tablet 85 mg PO QAM RF: 0 Humalog U-100 Insulin 100 unit/mL Cartridge 1 sliding scale dose SUBCUT UD PRN (Reason: Blood sugar) RF: 0 clonazepam 0.5 mg tablet 0.5 mg PO BID RF: 0 bumetanide 1 mg tablet 1 mg PO QAM RF: 0 irbesartan 150 mg tablet 150 mg PO QAM RF: 0 Lantus U-100 Insulin 100 unit/mL Solution 30 unit SUBCUT HS RF: 0 Velphoro 500 mg Tablet,Chewable 1,000 mg PO TIDM RF: 0 clonidine 0.1 mg/24 hr patch weekly 1 patch transdermal WK RF: 0 Fransisca-Jj 0.8 mg tablet 0.8 mg PO DAILY RF: 0 metoprolol tartrate 25 mg tablet 25 mg PO HS RF: 0 calcium acetate 667 mg capsule 1,334 mg PO TIDM RF: 0 Referrals Referrals: Douglas Dennison DO [Primary Care Provider] - Discharge Problem: Nausea & vomiting Qualifiers: Vomiting type: unspecified Vomiting Intractability: non-intractable Qualified Code(s): R11.2 - Nausea with vomiting, unspecified Renal failure Qualifiers: Renal failure chronicity: unspecified chronicity Qualified Code(s): N19 - Unspecified kidney failure The scribe's documentation has been prepared under my direction and personally reviewed by me in its entirety. I confirm that the note above accurately reflects all work, treatment, procedures, and medical decision making performed by me.
[2019-05-20] MEDS ORDERED: GLUCAGON FOR INJ 1 MG VIAL SQ PRN (22:46)
[2019-05-20] MEDS ORDERED: GLUCOSE 10 TABS/TUBE PO PRN (22:46)
[2019-05-20] MEDS ORDERED: GLUCOSE 40% GEL 15 GM TUBE PO PRN (22:46)
[2019-05-20] MEDS ORDERED: DEXTROSE 50% 50 ML SYRINGE IV PRN (22:46)
[2019-05-20] MEDS ORDERED: PHARMACY GLYCEMIC MGMT CONSULT PRN (23:04)
[2019-05-20] MEDS ORDERED: INSULIN GLARGINE SOLOSTAR 100 UNITS/ML 3 ML PEN SC SCH (23:30)
[2019-05-20] MEDS: clonazePAM 0.5 MG TAB PO SCH (23:31)
[2019-05-20] MEDS: CHECK CLONIDINE PATCH PLACEMENT SCH (23:33)
[2019-05-20] MEDS ORDERED: INSULIN ASPART 100 UNITS/ML 3 ML PEN SC STA (23:53)
[2019-05-21] MEDS ORDERED: cefTRIAXone SODIUM 1,000 MG/50 ML BAG IV SCH
[2019-05-21] MEDS ORDERED: CHECK CLONIDINE PATCH PLACEMENT SCH
[2019-05-21] MEDS: VELPHORO~ORDER AWAITING ACTION SCH ×3 (00:23→17:05)
[2019-05-21] MEDS ORDERED: PREGABALIN 25 MG CAP PO ONE (00:35)
[2019-05-21] MEDS ORDERED: INSULIN ASPART 100 UNITS/ML 3 ML PEN SC SCH ×3 (04:00→20:58)
[2019-05-21] MEDS: CARBOHYDRATES FOR HYPOGLYCEMIA PO PRN ×2 (07:00→07:20)
[2019-05-21 07:10] LABS: Hematocrit (blood only) 36.9 % (42-52); Hemoglobin 12.6 g/dL (14.0-18.0); Mean Corpuscular Hemoglobin 29.5 pg (25-34); Mean Corpuscular Hgb Conc 34.1 g/dL (32-36); Mean Corpuscular Volume 86.4 fL (80-100); Mean Platelet Volume 8.3 fL (7.4-10.4); Platelet Count 159 K/uL (130-400); RDW Coefficient of Variation 14.7 % (11.5-14.5); RDW Standard Deviation 46.6 fL (36.4-46.3); Red Blood Count 4.27 M/uL (4.7-6.1); White Blood Count 13.59 K/uL (4.8-10.8)
[2019-05-21 07:34] LABS: Basophils # (auto) 0.02 K/uL (0-0.2); Basophils % (auto) 0.1 %; Eosinophils # (auto) 0.22 K/uL (0-0.5); Eosinophils % (auto) 1.6 %; Immature Granulocytes # (auto) 0.02 K/uL (0.00-0.02); Immature Granulocytes % (auto) 0.1 %; Lymphocytes # (auto) 5.53 K/uL (1.2-3.4); Lymphocytes % (auto) 40.7 %; Monocytes # (auto) 1.09 K/uL (0.11-0.59); Neutrophils # (auto) 6.71 K/uL (1.4-6.5); Neutrophils % (auto) 49.5 %
[2019-05-21] MEDS ORDERED: NON-FORMULARY MEDICATION (Sucroferric Oxyhydroxide [Velphoro] 1,000 MG) PO SCH (08:00)
[2019-05-21 08:12] LABS: BUN Creatinine Ratio 6.1 (10-20); Calcium 8.8 mg/dl (8.5-10.1); Creatinine Clr Calc Pharmacy 11.7 ml/min; Est GFR (African American) 8.6; Est GFR (Non-African American) 7.4; Magnesium 1.8 mg/dl (1.8-2.4); Potassium 3.1 mmol/L (3.5-5.1)
[2019-05-21] MEDS ORDERED: HydrALAZINE HCL 20 MG/ML VIAL IV PRN (08:25)
[2019-05-21] MEDS ORDERED: PATIENT'S OWN CONTROLLED MED PO SCH (09:00)
[2019-05-21] MEDS ORDERED: BUMETANIDE 1 MG TAB PO SCH (09:00)
[2019-05-21] MEDS ORDERED: METOPROLOL TARTRATE 25 MG TAB PO SCH ×2 (09:00→21:00)
[2019-05-21] MEDS: clonazePAM 0.5 MG TAB PO SCH ×2 (09:07→21:50)
[2019-05-21] MEDS: METHADONE HCL 10 MG TAB PO SCH (09:07)
[2019-05-21] MEDS: METHADONE HCL 5 MG TAB PO SCH (09:07)
[2019-05-21] MEDS: IRBESARTAN 150 MG TAB PO SCH (09:08)
[2019-05-21] MEDS: LACTOBACILLUS ACIDOPHILUS 1 GM PACK PO SCH ×3 (09:08→18:34)
[2019-05-21] MEDS: CALCIUM ACETATE 667 MG CAP PO SCH ×3 (09:08→18:33)
[2019-05-21] MEDS: HEPARIN SOD 5,000 UNIT/0.5 ML VIAL SQ SCH ×2 (09:15→21:51)
[2019-05-21] MEDS: CHECK CLONIDINE PATCH PLACEMENT SCH ×2 (09:15→17:04)
[2019-05-21] MEDS: INSULIN ASPART 100 UNITS/ML 3 ML PEN SC SCH ×3 (09:16→18:35)
[2019-05-21] MEDS: AMLODIPINE BESYLATE 5 MG TAB PO SCH (09:20)
[2019-05-21] MEDS ORDERED: ACETAMINOPHEN 500 MG TAB PO STA (09:50)
[2019-05-21] MEDS ORDERED: ACETAMINOPHEN 500 MG TAB ONE (09:53)
[2019-05-21] MEDS: HydrALAZINE HCL 20 MG/ML VIAL IV PRN ×2 (09:55→16:53)
[2019-05-21] MEDS ORDERED: KETOROLAC TROMETHAMINE 15 MG/ML VIAL IV ONE (11:45)
--- NOTE | 2019-05-21 13:56 | Pharmacy Report ---
Pharmacy Glycemic Short Note 2 - Date of Service May 21, 2019 - Glycemic Short BSG Results (Last 24 hours): 05/20/19 05/20/19 05/20/19 17:38 17:40 22:07 Glucose 404 H* POC Glucose 221 H POC Glucose (other) 412 H* 05/20/19 05/21/19 05/21/19 23:29 04:09 06:53 Glucose 46 L* POC Glucose 247 H 156 H POC Glucose (other) 05/21/19 05/21/19 05/21/19 06:58 07:16 07:17 Glucose POC Glucose 45 L* 50 L* 52 L* POC Glucose (other) 05/21/19 05/21/19 07:39 11:28 Glucose POC Glucose 71 172 H POC Glucose (other) OUTPATIENT ANTIDIABETIC REGIMEN: * Lantus 30 units HS * Humalog SSI ASSESSMENT: * Patient presenting with significant hyperglycemia likely due to stress of hypertensive crisis and nausea/vomiting with hypoglycemia this morning. * Patient is known to the glycemic service and past data indicates BSGs have been historically labile. * I will decrease tonight lantus dose by ~17% * I will also loosen novolog scale * Prior to hypoglycemic episode, patient received: * 30 units SQ of lantus ~2330 last evening * 4 unit IV bolus ~2100 last evening * Total of 5 units SQ of novolog overnight PLAN FOR INPATIENT GLYCEMIC CONTROL: * Hold outpatient oral diabetes medications * Basal insulin * Lantus 25 units SQ HS * Bolus insulin * NovoLog per scale ACHS or Q6hrs while NPO * Goal Range: Low 110 mg/dL - High 150 mg/dL * Correction Factor: 35 mg/dL/unit * Nutritional / Prandial insulin per carb ratio of 1 unit per 12 grams CHO consumed
--- NOTE | 2019-05-21 15:07 | Hospitalist Progress Note ---
Date of Service May 21, 2019 Assessment & Plan (1) Hypertensive crisis: Likely secondary to clonidine rebound vs. due to CKD. - Clonidine patch at 0.2mg / 24h - Continue irbesartan 150mg daily - Increased metoprolol to 25mg PO BID - Restarted amlodipine; he was on this previously, stopped for unknown reason, and reports he is willing to restart it. - Hydralazine PRN - Nicardipine gtt as a last resort. (2) Hyperglycemia: Blood sugar was 412 on admission. A1c was 11.6% in 03/2019. - Restarted his Lantus 30 units daily - Sliding scale insulin - Glycemic pharmacist covering (3) End stage renal disease on dialysis due to type 1 diabetes mellitus: Does peritoneal dialysis. Is working with Dr. Briones to have a left AVF as a backup. Procalcitonin was 0.4 on admission. - Consult executive relations specialist, Dr. Rose for dialysis - Obtain peritoneal fluid for culture, cell count to rule out peritonitis - Not collected yet. - Empiric ceftriaxone (4) Peritoneal dialysis catheter in place: As above (5) Substance abuse: On methadone. - Continue (6) DVT prophylaxis: Heparin BID Subjective Headache today. He was not really interested in talking much. Review of Systems Review of Systems: Other (Declined to answer) Physical Exam Constitutional: WD/WN, vitals as above Eyes: EOM intact bilaterally; no conjunctival abnormality ENMT: external ear and nose normal, oropharynx normal Neck: trachea midline, no thyromegaly normal visual inspection Respiratory: normal respiratory effort, lungs clear to auscultation no respiratory distress Cardiovascular: RRR, no murmur, no edema Gastrointestinal (Abdomen): Inspection/Auscultation: abdomen normal to inspection; abdomen not distended Musculoskeletal: no cyanosis or clubbing, extremities motor strength 5/5 Skin: no rashes, warm and dry Neurologic: moves all extremities and awake Psychiatric: Orientation: alert, oriented to person and cooperative Results & Data Vital Signs (Past 12 Hours) Vital Signs Temp Pulse Resp BP Pulse Ox 05/21/19 11:14 36.9 C 88 10 L 181/105 H 98 05/21/19 07:48 36.5 C 80 18 198/125 H 100 05/21/19 04:00 36.7 C 76 16 154/89 H 97 PG Care Time/CCT Total # of Minutes Spent Total Time Spent with Patient: Total time spent is greater than 50% in coordination of care (as documented) at patient's floor/unit and/or counseling patient:
--- NOTE | 2019-05-21 17:48 | Nephrology Consultation ---
Date of Consultation May 21, 2019 Assessment & Plan (1) Hypertensive urgency: bp trending up again this evening; goal sbp is in 160-170s consistently tomorrow. given normal head CT would not call this HTN crisis but urgency as no evidence of end organ damage, no acute sx attributable to HTN -currently getting clonidine patch 0.2, irbesartan 150 mg daily, amlodipine 5 mg daily, metoprolol 25 mg bid tartrate -I increased BB to 37.5 mg bid -room to titrate upward on CCB, on ARB; -cont prn BB -cont prn hydralazine -added standing enalaprilat 1.25 mg IV q6h w/ hold parameters for sbp <180 >>defer to primary service to control pain >> tricky w/ his hx of substance use; avoid nsaids in this patient d/t HTN/ renal disease Present on Admission?: Yes (2) Peritoneal dialysis catheter in place: presented w/ abd pain; for numerous reasons, cxs obtained 18 hrs after abtx and may well be negative. no abd pain on exam currently >KUB if abd pain recurs to check catheter placement -- if can't be portable would have to be in AM off of PD >>>>>will get cultures, cell count w/ diff, GS>>>> if abdominal pain recurs, if cell count more than 100, or if >50% neutrophils, generally needs IV abtx; here will give empiric abtx since we are getting cxs well after abtx >>>>ideally would give abtx in pd fluid but best timing of needed tx, will give 1 gm ceftazidime IV and 1250 mg IV vancomycin x 1 dose each this evening Present on Admission?: Yes (3) End stage renal disease on dialysis due to type 1 diabetes mellitus: PD rx: 10 hrs w/ 6 x 2L exchs all 2.5% -will extend tx overnight to 12 h and alternate 2.5%/4.5% for better uf / clearance -continue binders ac -pls start daily renal vitamin qAM Present on Admission?: Yes (4) Hypokalemia: challenging w/ his labile BG, ESRD >> recheck bmp now >>>ordered repeat bmp >> would replete tonight w/ 20 mEq po or IV ONLY if K 3.3 or less Present on Admission?: Yes History of Present Illness Reason for Consultation: ESRD on PD Requesting Physician: Dr Beltran Attending Physician: Wilbert Beltran MD History of Present Illness 33 y/o M whom I'm asked to see for dialysis care after he was admitted here yesterday w/ HTN emergency after presenting w/ N/V. PMH includes DM1, ESRD on PD, past opioid abuse on methadone, HCV, HTN. Pt reports he had emesis near daily this week, similar to gastroparesis type sx has had in past. THen 48 hrs ago had flu like sx w/ chills, body aches, and more/different emesis. Just prior to admission, he had removed his clonidine patch but not replaced it b/c could not find replacement. He had some epigastric pain, was worried and opted to come to ER eval. He presented w/ SBP > 230 in ER last evening. On presentation, clonidine patch restarted, prn hydralazine ordered as were other routine bp meds. N/V managed symptomatically. His SBP has been quite labile all day but still as high as 190-210s; on average 170-180s. Pt did endorse abd pain around PD catheter site on presentation, supported on PE. He had a dose of empiric ceftriaxone last evening to cover GI sx. His last PD was night of 05/19. He denies cloudy fluid, other abd pain apart from epigastric, issues w/ exchanges. He voids daily, moves bowels near daily. has had peritonitis in past > denies any sx resembling abd pain like peritonitis. Today he has had PAYNE all day but it just improved prior to my interview w/ him late this afternoon. Has had no acute MS changes, no chest pain, no sob, no sustained abdominal pain w/ elevated BP. Allergies Allergy/AdvReac Type Severity Reaction Status Date / Time No Known Allergies Allergy Verified 05/20/19 19:40 Home Medications Home Medications Medication Instructions Recorded Confirmed Type Humalog U-100 Insulin 1 sliding scale dose SUBCUT UD PRN 05/23/18 05/20/19 History methadone 85 mg PO QAM 05/23/18 05/20/19 History bumetanide 1 mg PO QAM 11/03/18 05/20/19 History clonazepam 0.5 mg PO BID 11/03/18 05/20/19 History irbesartan 150 mg PO QAM 11/03/18 05/20/19 History insulin glargine [Lantus U-100 30 unit SUBCUT HS 03/24/19 05/20/19 History Insulin] sucroferric oxyhydroxide [Velphoro] 1,000 mg PO TIDM 03/24/19 05/20/19 History B complex-vitamin C-folic acid 0.8 mg PO DAILY 05/20/19 05/20/19 History [Fransisca-Jj] calcium acetate 1,334 mg PO TIDM 05/20/19 05/20/19 History clonidine 1 patch TRANSDERMAL WK 05/20/19 05/20/19 History metoprolol tartrate 25 mg PO HS 05/20/19 05/20/19 History Patient History Medical History Anxiety Diabetes mellitus type 1 Diabetic retinopathy of both eyes ESRD (end stage renal disease) on peritoneal dialysis HS (10 hour treatments) Gastroparesis Hepatitis C History of seizure seizure-like activity 02/14/2019 in setting of severe hyperglycemia (patient states he missed dialysis/insulin dose), DKA, confusion- lifeflighted to [place]/intubated/placed on ventilator. DKA managed with insulin drip on admission. EEG with no seizure activity noted. Neurology consulted and initially started patient on prophylactic Keppra but suspected seizure was complication of hyperglycemia and recommended weaning off an ticonvulsants/advised no further neurology workup needed. Per patient, medication/dialysis compliance since discharge with glucoses in the range on 100's-200's on self-checks. Hypertension Peritonitis currently on intraperitoneal abx Surgical History Hx of tooth extraction Hx of vitrectomy B/L; right vitrectomy: 05/26/18: LMA#5 at [facility] [place] Peritoneal dialysis catheter in place Family History Grandfather (Maternal) Family history of diabetes mellitus Grandfather (Paternal) Family history of diabetes mellitus Grandmother (Paternal) Family history of diabetes mellitus Grandmother (Maternal) Family history of diabetes mellitus Aunt Family history of diabetes mellitus Uncle Family history of diabetes mellitus Social History Preferred Language: Ghanaian Communication Ability: Effective Email Marketing Intern Required: No Beliefs That Will Affect Care: None Current Living Situation: Alone Current Living Situation Comment: brother and Other Information That Helps Us Care for You: No Feels Safe at Home: Yes Safety Concerns: Feels Safe At This Time Smoking Status: Former smoker Tobacco Type: cigarettes ; Do You Dip or Chew Tobacco: Yes (SNUFF) ; Second Hand Exposure: No ; Tobacco Cessation Education Requested by Patient: No Hx Alcohol Use: No Hx Substance Use: No (PT DENIES) Review of Systems Review of Systems: All systems reviewed & are unremarkable except as noted in HPI & below Constitutional: as per Subjective / HPI, + chills (IN [employer]), + body aches (previous to admission) and + anorexia; no fever Eyes: blurry vision L eye w/ heaving/emesis else no acute vision changes Respiratory: as per Subjective / HPI Cardiovascular: as per Subjective / HPI Gastrointestinal: as per Subjective / HPI, + abdominal pain (epigastric present yesterday; none currently) and + vomiting; no change in bowel habits Genitourinary: + decreased urination (voids daily; no change in chronic voiding habits) Integumentary: no rash and no non-healing lesions Physical Exam Constitutional: well developed and well nourished; no acute distress and no altered mental status on RA, good historian Eyes: EOM intact bilaterally ENMT: Ears: no external ear abnormality Nose: no external nose abnormality Mouth: + dry oral mucous membranes Neck: no nuchal rigidity Respiratory: normal respiratory effort Auscultation: lungs clear to auscultation bilaterally Cardiovascular: RRR, no murmur, no edema Extremities: no AV fistula Gastrointestinal (Abdomen): Inspection/Auscultation: normal bowel sounds Percussion/Palpation: + guarding (hyperesthesia) and abdomen soft; abdomen nontender PD catheter present; exit site pristine; Musculoskeletal: no cyanosis or clubbing, extremities motor strength 5/5 Extremities: strength 5/5 throughout Skin: no rashes, warm and dry + lesion (0.5 cm ulcers on R hand) Neurologic: fitch, fluent speech, no tremor Psychiatric: A+Ox3, euthymic affect Speech: normal rate/rhythm/volume of speech Genitourinary: no brown Results & Data Vital Signs (Past 12 Hours) Vital Signs Temp Pulse Resp BP BP Pulse Ox 05/21/19 15:47 36.6 C 80 13 209/126 H 222/125 H 99 05/21/19 11:14 36.9 C 88 10 L 181/105 H 98 05/21/19 07:48 36.5 C 80 18 198/125 H 100 Laboratory Results 05/21/19 06:53 05/21/19 06:[address] > no acute i-c path cxr> no acute process ECG > prolonged QT, NSR, no change from 10/2018
[2019-05-21 18:38] LABS: BUN Creatinine Ratio 6.6 (10-20); Creatinine Clr Calc Pharmacy 11.3 ml/min; Est GFR (African American) 8.2; Est GFR (Non-African American) 7.1
[2019-05-21] MEDS ORDERED: VANCOMYCIN CONSULT ACTIVE PRN (19:18)
[2019-05-21 19:48] LABS: Potassium 5.2 mmol/L (3.5-5.1)
[2019-05-21] MEDS: ENALAPRILAT 1.25 MG in DEXTROSE 5% 25 ML IV SCH (19:51)
[2019-05-21] MEDS ORDERED: VANCOMYCIN HCL 1,250 MG in SODIUM CHLORIDE 0.9% 500 ML IV SCH (20:00)
[2019-05-21 20:29] LABS: Appearance Peritoneal Fluid CLEAR; Basophils, Fluid 1 %; Color Peritoneal Fluid COLORLESS; Eosinophils, Fluid 3 %; Lymphocytes, Fluid 4 %; Mono,Macrophage,Mesothelial 89 %; Neutrophils, Fluid 3 %; RBC Peritoneal Fluid (A) < 3000 /uL; WBC Peritoneal Fluid (A) 45 /ul (0-300)
[2019-05-21] MEDS ORDERED: INSULIN GLARGINE SOLOSTAR 100 UNITS/ML 3 ML PEN SC SCH (21:00)
[2019-05-21] MEDS: METOPROLOL TARTRATE 25 MG TAB PO SCH (21:52)
[2019-05-22] MEDS: CHECK CLONIDINE PATCH PLACEMENT SCH ×3 (00:12→15:29)
[2019-05-22] MEDS: VELPHORO~ORDER AWAITING ACTION SCH ×3 (00:13→14:30)
[2019-05-22] MEDS: ENALAPRILAT 1.25 MG in DEXTROSE 5% 25 ML IV SCH ×3 (01:29→12:14)
[2019-05-22] MEDS: CARBOHYDRATES FOR HYPOGLYCEMIA PO PRN (02:26)
[2019-05-22 07:14] LABS: Hematocrit (blood only) 32.5 % (42-52); Hemoglobin 11.1 g/dL (14.0-18.0); Mean Corpuscular Hemoglobin 29.9 pg (25-34); Mean Corpuscular Hgb Conc 34.2 g/dL (32-36); Mean Corpuscular Volume 87.6 fL (80-100); Platelet Count 144 K/uL (130-400); RDW Coefficient of Variation 15.4 % (11.5-14.5); RDW Standard Deviation 49.3 fL (36.4-46.3); Red Blood Count 3.71 M/uL (4.7-6.1); White Blood Count 7.65 K/uL (4.8-10.8)
[2019-05-22 07:51] LABS: BUN Creatinine Ratio 6.9 (10-20); Calcium 8.1 mg/dl (8.5-10.1); Creatinine Clr Calc Pharmacy 11.8 ml/min; Est GFR (African American) 8.5; Est GFR (Non-African American) 7.4; Magnesium 1.9 mg/dl (1.8-2.4); Phosphorus 6.1 mg/dl (2.5-4.9)
[2019-05-22] MEDS: HEPARIN SOD 5,000 UNIT/0.5 ML VIAL SQ SCH (07:58)
[2019-05-22] MEDS: CALCIUM ACETATE 667 MG CAP PO SCH ×3 (07:58→16:31)
[2019-05-22] MEDS: METHADONE HCL 10 MG TAB PO SCH (07:59)
[2019-05-22] MEDS: LACTOBACILLUS ACIDOPHILUS 1 GM PACK PO SCH ×3 (07:59→16:30)
[2019-05-22] MEDS: METHADONE HCL 5 MG TAB PO SCH (07:59)
[2019-05-22] MEDS: clonazePAM 0.5 MG TAB PO SCH (07:59)
[2019-05-22] MEDS: IRBESARTAN 150 MG TAB PO SCH (08:01)
[2019-05-22] MEDS: METOPROLOL TARTRATE 25 MG TAB PO SCH (08:02)
[2019-05-22] MEDS: AMLODIPINE BESYLATE 5 MG TAB PO SCH (08:03)
[2019-05-22] MEDS: INSULIN ASPART 100 UNITS/ML 3 ML PEN SC SCH ×2 (08:05→12:13)
[2019-05-22] MEDS ORDERED: DIALYSIS IP SCH (09:00)
[2019-05-22] MEDS ORDERED: CEFTAZIDIME IP SCH (09:00)
[2019-05-22] MEDS ORDERED: PERITONEAL 2.5% IP SCH (09:00)
--- NOTE | 2019-05-22 10:38 | Pharmacy Report ---
Pharmacy Glycemic Short Note 2 - Date of Service May 22, 2019 - Glycemic Short BSG Results (Last 24 hours): 05/21/19 05/21/19 05/21/19 11:28 16:28 18:00 Glucose 292 H POC Glucose 172 H 178 H 05/21/19 05/21/19 05/22/19 20:48 23:36 00:58 Glucose POC Glucose 408 H* 353 H* 188 H 05/22/19 05/22/19 05/22/19 02:23 02:41 02:59 Glucose POC Glucose 66 L* 59 L* 49 L* 05/22/19 05/22/19 05/22/19 03:23 04:22 06:30 Glucose 222 H POC Glucose 162 H 165 H 05/22/19 07:19 Glucose POC Glucose 220 H OUTPATIENT ANTIDIABETIC REGIMEN: * Lantus 30 units HS * Humalog SSI ASSESSMENT: 05/22 * Pt again experienced a hypoglycemic episode last night, likely due to Novolog correction * I did interview the patient today and he states that he does not correct BSGs at bedtime when elevated, rather he eats a meals at that time and usually gives himself no more than 5 units rapid acting insulin for HS meal. He then gives his Lantus 30 unit dose and begins his peritoneal dialysis treatment. He states he typically does not have lows by doing so. Will trial a similar regimen today (ie, very minimal correctional insulin at bedtime and modest carb coverage for HS meal). I suspect the dextrose content of his PD is leading to hyperglycemia HS, for which Novolog correction in addition to Lantus has led to lows. PLAN FOR INPATIENT GLYCEMIC CONTROL: * Basal insulin (small dose reduction) * Lantus 23 units SQ daily at 1900 as this his PD regimen runs 6119-4619 * Bolus insulin * NovoLog per scale ACHS or Q6hrs while NPO * Goal Range: Low 110 mg/dL - High 150 mg/dL * Correction Factor: 35 mg/dL/unit at all times of day except HS, at HS use CF of 150mg/dL/unit * Nutritional / Prandial insulin per carb ratio of 1 unit per 15 grams CHO consumed with all meals except 1 unit per 20 grams CHO at HS
[2019-05-22] MEDS ORDERED: METOPROLOL SUCC 50MG EXT REL TAB PO ONE (16:15)
--- NOTE | 2019-05-22 16:32 | Discharge Summary ---
Date of Service May 22, 2019 Admission HPI Per Admitting Provider 33 years old man with past medical history of type 1 diabetes mellitus, end- stage renal disease on peritoneal dialysis, opioid abuse currently on methadone, hepatitis C, essential hypertension among others who developed today acute onset abdominal pain and vomiting. Due to that he vomited his methadone, and was not able to take anything by mouth. Yesterday he was due to change his clonidine patch and he removed it but he never placed anyone. He said that he took his insulin yesterday but he did not take it today as he is supposed to take it at night. In the ED his systolic blood pressure was more than 230, he had significant abdominal pain and vomiting and body aches. Principal Diagnosis Hypertensive urgency Discharge Exam Constitutional WD/WN, vitals as above Eyes EOM intact bilaterally; no conjunctival abnormality ENMT external ear and nose normal, oropharynx normal Neck trachea midline, no thyromegaly normal visual inspection Respiratory normal respiratory effort, lungs clear to auscultation no respiratory distress Cardiovascular RRR, no murmur, no edema Gastrointestinal (Abdomen) Inspection/Auscultation: abdomen normal to inspection; abdomen not distended Musculoskeletal no cyanosis or clubbing, extremities motor strength 5/5 Skin no rashes, warm and dry Neurologic moves all extremities and awake Psychiatric Orientation: alert, oriented to person and cooperative Discharge Data Allergies Allergy/AdvReac Type Severity Reaction Status Date / Time No Known Allergies Allergy Verified 05/20/19 19:40 Consultations 05/20/19 20:21 ED Decision to Admit Stat 05/20/19 21:24 Consult Nephrology Routine Ordered Studies 05/20/19 17:26 CT head/brain wo con Stat Hospital Course (1) Hypertensive crisis: Likely secondary to clonidine rebound vs. due to CKD. Did well with this regimen: - Clonidine patch at 0.2mg / 24h - Irbesartan 150mg daily - Metoprolol XL 50 QHS - Using this regimen, his BP was 130/85 - 155/100. We discussed adding amlodipine; however, he has had leg swelling in the past with it and preferred not using it. Refills were sent to his pharmacy in [place] for all of the se. (2) Hyperglycemia: Blood sugar was 412 on admission. A1c was 11.6% in 03/2019. - Restarted his Lantus 30 units HS - Sliding scale insulin - He needed a lower dose of insulin on sliding scale. On discharge, we lowered his long-acting a bit and will need to follow up outpatient. (3) End stage renal disease on dialysis due to type 1 diabetes mellitus: Does peritoneal dialysis. Is working with Dr. Briones to have a left AVF as a backup. Procalcitonin was 0.4 on admission. - Consult electronic induction hardener, Dr. Rose for dialysis - Obtained peritoneal fluid for culture, cell count to rule out peritonitis on 05/21 - Was negative; however, Dr. Rose gave him one final dose of ceftazidime instilled in his peritoneal dialysis fluid on 05/22 and felt this was adequate to treat. (4) Peritoneal dialysis catheter in place: As above (5) Substance abuse: On methadone. - Continued daily 85mg dosing while admitted. He will follow up tomorrow (05/23/2019) with his [facility] which we confirmed is open from 6am - 8am. (6) DVT prophylaxis: Heparin BID Total Time Total Time Spent Total Time Spent (In Minutes): 35 Discharge Plan Discharge Items Patient Disposition: Home - Self-Care Reason For Visit: HTN CRISIS Discharge Diagnosis: Hypertensive crisis Activity: Resume your previous activity Non-emergency contact: Primary Care Provider and Manager Research And Development Call non-emergency contact if: your pain is not controlled and your temperature is above 101 Follow-up/Referrals: Ana M Sanders DO [Physician] - 05/26/19 5:45 pm (Please, follow up at [facility] [place] [facility] with Dr. Sanders's associate, Serenity Sanchez PA-C, on SaturdayMay 26 at 5:45 pm. *If you need to change this appointment, call their office at [phone].) Diet: Carb Count or DM1 and Dialysis Renal Addtl Attending Provider Instructions: You were admitted for high blood pressure. We also had to adjust your blood sugar regimen. Finally, Dr. Rose gave you a dose of antibiotics into your peritoneal catheter to help prevent/stop any infection. For your blood pressure, please take: 1) Irbesartan 150mg daily 2) Metoprolol succinate 50 mg every night 3) Clonidine patch - This was increased to 0.2 mg/Q24h from a 0.1 mg patch because it helped your blood pressure better. Pending Studies at Discharge: No Stand-Alone Forms: My [facility], Smoking Cessation Medications and DC Order Prescriptions: New clonidine 0.2 mg/24 hr Patch Weekly 1 patch transdermal CQWK Qty: 5 RF: 0 metoprolol succinate 50 mg tablet extended release 24 hr 50 mg PO HS Qty: 30 RF: 0 irbesartan 150 mg tablet 150 mg PO QAM Qty: 30 RF: 0 Continued methadone 10 mg Tablet 85 mg PO QAM RF: 0 clonazepam 0.5 mg tablet 0.5 mg PO BID RF: 0 bumetanide 1 mg tablet 1 mg PO QAM RF: 0 Velphoro 500 mg Tablet,Chewable 1,000 mg PO TIDM RF: 0 Fransisca-Jj 0.8 mg tablet 0.8 mg PO DAILY RF: 0 calcium acetate 667 mg capsule 1,334 mg PO TIDM RF: 0 Humalog U-100 Insulin 100 unit/mL Cartridge 1 sliding scale dose SUBCUT UD PRN (Reason: Blood sugar) Qty: 15 RF: 0 Changed Lantus U-100 Insulin 100 unit/mL Solution 25 unit SUBCUT HS Qty: 0 RF: 0 Discontinued clonidine 0.1 mg/24 hr patch weekly 1 patch transdermal WK RF: 0 metoprolol tartrate 25 mg tablet 25 mg PO HS RF: 0 Discharge Orders: Discharge Order (Routine); Ordered 05/22/19 Ordered By: Wilbert Beltran Admission Data Admit Date/Time: 05/20/19 22:42 Attending Provider: Wilbert Beltran Admit Provider: Reggie Goodson Primary Care Provider: Douglas Dennison Other Providers: Wilbert Beltran ; Eusebia Rose Other Interventions: Discharge Summary Assessment (RN) Last Done: 05/22/19 16:22
--- NOTE | 2019-05-22 17:39 | Nephrology Progress Note ---
Date of Service May 22, 2019 Assessment & Plan (1) Hypertensive urgency: bp trending up again this evening; goal sbp is in 150-160s; some lability given normal head CT would not call this HTN crisis but urgency as no evidence of end organ damage, no acute sx attributable to HTN -admitted on clonidine patch 0.2, irbesartan 150 mg daily, amlodipine 5 mg daily, metoprolol 25 mg bid tartrate -agree w/ changing to long acting metoprolol and taking 50 mg hs; also clonidine increased to 0.3 mg atch >>defer to primary service to control pain >> tricky w/ his hx of substance use; avoid nsaids in this patient d/t HTN/ renal disease (2) Peritoneal dialysis catheter in place: presented w/ abd pain; for numerous reasons, cxs obtained 18 hrs after abtx and may well be negative. no abd pain on exam since admission fluid studies negative for WBC or pmn peritonitis criteria; GS and cxs negative; he had ceftriaxone first night; vanco/ceftaz IV second night; ceftazidime IP today for 6h; no further antibiotics needed -no peritonitis (did have empiric coverage while fluid studies evaluated); no exit site or tunnel infection (3) End stage renal disease on dialysis due to type 1 diabetes mellitus: PD rx: 10 hrs w/ 6 x 2L exchs all 2.5%; resume OP regimen -explained to him I am happy to have him transfer to my PD clinic but have concerns about his transportation; he will work on that -continue binders ac -pls start daily renal vitamin qAM (4) Hypokalemia: resolved today Subjective seen on rounds this afternoon just prior to hospital d/c; care followed through day. bp improved for most of day; fluid studies w/ no evidence of peritonitis, cxs NGTD; he has had 3 doses/days of empiric abtx; no abdominal pain, no rec urrence of emesis; states he wishes to transfer to my clinic for PD after D/c Review of Systems Review of Systems: All systems reviewed & are unremarkable except as noted in HPI & below Constitutional: campos improved Respiratory: no cough and no dyspnea Cardiovascular: no chest pain, no orthopnea and no edema Gastrointestinal: no abdominal pain, no nausea, no vomiting, no change in bowel habits and no diarrhea/loose stools Physical Exam Constitutional: well developed and well nourished; no acute distress (sitting in bed eating supper on RA) and no altered mental status Eyes: EOM intact bilaterally ENMT: Ears: no external ear abnormality Nose: no external nose abnormality Mouth: + dry oral mucous membranes Neck: no nuchal rigidity Respiratory: normal respiratory effort Auscultation: lungs clear to a uscultation bilaterally Cardiovascular: RRR, no murmur, no edema Extremities: no AV fistula Gastrointestinal (Abdomen): Inspection/Auscultation: normal bowel sounds Percussion/Palpation: + guarding (hyperesthesia) and abdomen soft; abdomen nontender PD catheter in place; exit site pristine Musculoskeletal: no cyanosis or clubbing, extremities motor strength 5/5 Extremities: strength 5/5 throughout Skin: no rashes, warm and dry + lesion (0.5 cm ulcers on R hand) Psychiatric: A+Ox3, euthymic affect Speech: normal rate/rhythm/volume of speech Results & Data Vital Signs (Past 12 Hours) Vital Signs Temp Pulse Resp BP BP Pulse Ox 05/22/19 16:22 36.7 C 68 18 179/117 H 131/85 97 05/22/19 11:47 36.7 C 68 18 131/85 97 05/22/19 08:00 37.1 C 69 16 179/117 H 99 05/22/19 07:46 37.1 C 70 22 Laboratory Results 05/22/19 06:30 05/22/19 06:30
[2019-05-22] MEDS ORDERED: INSULIN GLARGINE SOLOSTAR 100 UNITS/ML 3 ML PEN SC SCH (19:00)
[2019-05-22] MEDS ORDERED: INSULIN ASPART 100 UNITS/ML 3 ML PEN SC SCH ×2 (21:00)
== END 2019-05-22 17:17 | disposition home health service (06) | DRG 304 ==
LOC: ED 16:59 → 2S 22:25 → SUATTDRO 22:42 → 2S 22:42 → 2E 23:17

== ENCOUNTER 2019-05-27 04:43 | Inpatient (IN) ==
[2019-05-27] MEDS ORDERED: HydrALAZINE HCL 20 MG/ML VIAL IV STA ×2 (04:53→05:12)
[2019-05-27 05:08] LABS: Basophils # (auto) 0.01 K/uL (0-0.2); Basophils % (auto) 0.1 %; Eosinophils # (auto) 0.21 K/uL (0-0.5); Eosinophils % (auto) 2.8 %; Hematocrit (blood only) 38.3 % (42-52); Hemoglobin 12.9 g/dL (14.0-18.0); Immature Granulocytes # (auto) 0.01 K/uL (0.00-0.02); Immature Granulocytes % (auto) 0.1 %; Lymphocytes # (auto) 2.45 K/uL (1.2-3.4); Lymphocytes % (auto) 32.2 %; Mean Corpuscular Hemoglobin 30.1 pg (25-34); Mean Corpuscular Hgb Conc 33.7 g/dL (32-36); Mean Corpuscular Volume 89.5 fL (80-100); Mean Platelet Volume 9.6 fL (7.4-10.4); Monocytes # (auto) 0.81 K/uL (0.11-0.59); Monocytes % (auto) 10.6 %; Neutrophils # (auto) 4.12 K/uL (1.4-6.5); Neutrophils % (auto) 54.2 %; Platelet Count 216 K/uL (130-400); RDW Coefficient of Variation 14.6 % (11.5-14.5); Red Blood Count 4.28 M/uL (4.7-6.1); White Blood Count 7.61 K/uL (4.8-10.8)
--- NOTE | 2019-05-27 05:21 | Emergency Department Note ---
History of Present Illness General Chief complaint: Seizure Stated complaint: SEIZURE Time Seen by Provider: 05/27/19 04:48 Source: family and EMS Mode of arrival: EMS Limitations: altered mental status History of Present Illness Provider complaint: Seizure and high blood sugar Onset (ago): unknown Maximum Pain Intensity: 0 Associated symptoms: + confusion and + weakness Treatments prior to arrival: other (5 mg IM midazolam by EMS) This is a 33-year-old male with a history of diabetes mellitus, dialysis, and recent hospitalization who presents after he was witnessed to be having a seizure at home by his 9-year-old son. The 9-year-old son states he was sleeping in the same bedroom and woke up and noticed the patient was shaking and would not answer him. He called his mother who works block making machine operator and the child's mother called 911. EMS states when they arrived the patient was able to answer questions. They checked his blood sugar which on the glucometer read high. Patient was still hooked up to dialysis and this was disconnected. Patient states this is happened before with dialysis. During transportation, patient had a recurrent seizure described by the service center technician as a grand mall lasting 45 seconds. Patient was given 5 IM midazolam as this happened prior to the establishment of IV access. Patient here still confused, will answer some yes/no questions. Patient denies any current pain. Patient denies feeling sick yesterday. Patient states he is taking his medications as prescribed. On review of EMR briefly, patient was noted to have just been admitted last week due to high blood pressure. Risk Management Analyst also noted the patient's blood pressure both on scene and in route remain persistently high as well. Family arrived and I discussed with the patient's significant other's condition and she states this has happened previously including seizures. She states he has had seizures before with both very high as well as very low blood sugar. She does not know if it is happened with elevated blood pressure before. She states that she works block making machine operator and does not know if he took his nighttime insulin prior to falling asleep. Home Medications Home Medications Medication Instructions Recorded Confirmed Type methadone 85 mg PO QAM 05/23/18 05/27/19 History bumetanide 1 mg PO QAM 11/03/18 05/27/19 History clonazepam 0.5 mg PO BID 11/03/18 05/27/19 History Velphoro 1,000 mg PO TIDM 03/24/19 05/27/19 History Fransisca-Jj 0.8 mg PO DAILY 05/20/19 05/27/19 History calcium acetate 1,334 mg PO TIDM 05/20/19 05/27/19 History Humalog U-100 Insulin 1 sliding scale dose SUBCUT UD PRN 05/22/19 05/27/19 Rx #15 ml Lantus U-100 Insulin 25 unit SUBCUT HS #0 ml 05/22/19 05/27/19 Rx clonidine 1 patch TRANSDERMAL CQWK #5 ea 05/22/19 05/27/19 Rx irbesartan 150 mg PO QAM #30 tab 05/22/19 05/27/19 Rx metoprolol succinate 50 mg PO HS #30 tab 05/22/19 05/27/19 Rx Allergies Allergy/AdvReac Type Severity Reaction Status Date / Time No Known Allergies Allergy Verified 05/27/19 04:52 Past Med/Surg History Medical History Anxiety Diabetes mellitus type 1 Diabetic retinopathy of both eyes ESRD (end stage renal disease) on peritoneal dialysis HS (10 hour treatments) Gastroparesis Hepatitis C History of seizure seizure-like activity 02/14/2019 in setting of severe hyperglycemia (patient states he missed dialysis/insulin dose), DKA, confusion- lifeflighted to [facility]/intubated/placed on ventilator. DKA managed with insulin drip on admission. EEG with no seizure activity noted. Neurology consulted and initially started patient on prophylactic Keppra but suspected seizure was complication of hyperglycemia and recommended weaning off anticonvulsants/advised no further neurology workup needed. Per patient, medication/dialysis compliance since discharge with glucoses in the range on 100's-200's on self-checks. Hypertension Peritonitis currently on intraperitoneal abx Seizure Surgical History Hx of tooth extraction Hx of vitrectomy B/L; [place] [facility] [place] catheter in place Family History Grandfather (Maternal) Family history of diabetes mellitus Grandfather (Paternal) Family history of diabetes mellitus Grandmother (Paternal) Family history of diabetes mellitus Grandmother (Maternal) Family history of diabetes mellitus Aunt Family history of diabetes mellitus Uncle Family history of diabetes mellitus Social History Preferred Language: Greenlandic Communication Ability: Effective First Front Ventilator Required: No Beliefs That Will Affect Care: None Current Living Situation: Alone and Family Current Living Situation Comment: son with patient Feels Safe at Home: Yes Smoking Status: Former smoker Tobacco Type: smokeless tobacco ; Second Hand Exposure: No ; Hx Alcohol Use: No Hx Substance Use: No Review of Systems Unobtainable due to cognitive status Physical Exam Vital Signs Vital Signs - 24 hr 05/27/19 05:00 05/27/19 05:07 05/27/19 05:33 Temperature 36.6 C Temperature Source Oral Pulse Rate 72 Pulse Rate [Bilateral Apical] 72 75 Respiratory Rate 20 20 16 Respiratory Effort / Characteristics Non-Labored Non-Labored Respiratory Depth Normal Normal Blood Pressure 238/132 H Blood Pressure [Left Arm] 221/126 H 215/111 H Blood Pressure Mean 167 Blood Pressure Mean [Left Arm] 157 145 Blood Pressure Position Lying Pulse Oximetry 97 100 99 Oxygen Delivery Method Room Air Nasal Cannula Room Air Oxygen Flow Rate 2 Sepsis Recent Fever Within 48 Hours No Sepsis Action Taken by Nursing No Action Required 05/27/19 05:36 05/27/19 05:42 05/27/19 05:57 Temperature Temperature Source Pulse Rate Pulse Rate [Bilateral Apical] 75 76 76 Respiratory Rate 16 16 16 Respiratory Effort / Characteristics Respiratory Depth Blood Pressure Blood Pressure [Left Arm] 203/113 H 203/113 H 187/102 H Blood Pressure Mean Blood Pressure Mean [Left Arm] 143 143 130 Blood Pressure Position Pulse Oximetry 99 98 98 Oxygen Delivery Method Room Air Room Air Room Air Oxygen Flow Rate Sepsis Recent Fever Within 48 Hours Sepsis Action Taken by Nursing GENERAL: Somnolent but arousable, ill appearing, well nourished, no distress, non-toxic EYE EXAM: normal conjunctiva, PERRL and EOM's grossly intact OROPHARYNX: no exudate, no erythema, lips, buccal mucosa, and tongue normal and mucous membranes are dry NECK: supple, no nuchal rigidity, no adenopathy, non-tender LUNGS: Clear to auscultation. Normal chest wall mechanics, no w/r/r HEART: no murmurs, S1 normal and S2 normal ABDOMEN: abdomen soft, non-tender, normo-active bowel sounds, no masses, no rebound or guarding. BACK: Back is symmetrical on inspection and there is no deformity, no midline tenderness, no CVA tenderness. SKIN: no rashes and no bruising UPPER EXTREMITIES: upper extremities are grossly normal. FROM, nml pulses b/l. LOWER EXTREMITIES: No pitting edema. FROM, nml pulses b/l. NEURO EXAM: Normal sensorium, cranial nerves II-XII grossly intact, normal speech, no gross weakness of arms, no gross weakness of legs. Gross sensation intact.] Course Course 0511: Patient still somnolent. Blood pressure mildly improved however still elevated. 0525: Patient is just returned from CT. Blood pressure still elevated but improved. 0545: Additional labs returning. Case discussed with Dr. Aiyana Multani, [facility] hospitalist for additional evaluation and management. Pharmacy notified of need for insulin drip. 0615: Dr. Multani is at bedside evaluating the patient. 0630: Patient now admits to not taking his insulin last night. Also states he did not check his blood sugar last night. Administered Medications Acetaminophen (Tylenol) 650 mg PO Q4H PRN PRN Reason: Pain or Fever Stop: 06/26/19 07:31 Last Admin: 05/27/19 16:52 Dose: 650 mg Documented by: [id number] Calcium Acetate (Phoslo) 1,334 mg PO TIDM [facility] Stop: 06/26/19 07:59 Last Admin: 05/27/19 16:55 Dose: Not Given Documented by: [id number] Admin: 05/27/19 14:32 Dose: Not Given Documented by: [id number] Admin: 05/27/19 10:07 Dose: Not Given Documented by: [id number] Clonazepam (Klonopin) 0.5 mg PO BID [facility] Stop: 06/26/19 08:59 Last Admin: 05/27/19 20:39 Dose: 0.5 mg Documented by: [id number] Admin: 05/27/19 10:13 Dose: Not Given Documented by: [id number] Clonidine HCl (Pvbxkjlp-Pjt-0 0.2mg/24hr) 1 patch TD We@0900 [facility] Stop: 06/26/19 08:59 Last Admin: 05/27/19 10:23 Dose: 1 patch Documented by: [id number] Hydralazine HCl (Hydralazine Hcl) 10 mg IV Q4H PRN PRN Reason: Hypertension Stop: 06/26/19 07:31 Last Admin: 05/27/19 17:25 Dose: 10 mg Documented by: [id number] Lorazepam (Ativan) 1 mg in 2 mls @ 0.5 mls/min IV Q30M PRN PRN Reason: seizure Stop: 06/26/19 07:31 Last Admin: 05/27/19 09:11 Dose: 0.5 mls/min Documented by: [id number] Lorazepam (Ativan) 0.5 mg in 1 mls @ 0.5 mls/min IV Q4 PRN PRN Reason: Nausea Stop: 06/26/19 09:05 Last Admin: 05/27/19 18:15 Dose: 0.5 mls/min Documented by: [id number] Parenteral Electrolytes (Normosol-R) 1,000 mls @ 50 mls/hr IV .Q20H [facility] Stop: 06/26/19 09:29 Last Admin: 05/27/19 10:12 Dose: 50 mls/hr Documented by: [id number] Nicardipine HCl 25 mg/ Sodium (Chloride) 250 mls @ 0 mls/hr IV .Q0M [facility]; Protocol Stop: 06/26/19 09:44 Last Titration: 05/27/19 11:17 Dose: 0 mg/hr, 0 mls/hr Documented by: [id number] Titration: 05/27/19 11:08 Dose: 2.5 mg/hr, 25 mls/hr Documented by: [id number] Admin: 05/27/19 10:51 Dose: 5 mg/hr, 50 mls/hr Documented by: [id number] Cosigned by: [id number] Insulin Aspart (Novolog Flexpen) 0 units SC ACHS [facility]; Protocol Stop: 06/26/19 16:29 Last Admin: 05/27/19 20:36 Dose: 4 units Documented by: [id number] Cosigned by: [id number] Admin: 05/27/19 16:54 Dose: 5 units Documented by: [id number] Cosigned by: [id number] Irbesartan (Avapro) 150 mg PO QAM [facility] Stop: 06/26/19 08:59 Last Admin: 05/27/19 10:14 Dose: Not Given Documented by: [id number] [facility]) [facility] [place] Stop: 06/10/19 08:59 Last Admin: 05/27/19 16:10 Dose: 80 mg Documented by: [id number] Admin: 05/27/19 10:14 Dose: Not Given Documented by: [id number] Methadone HCl (Dolophine) [facility] [place] Stop: 06/10/19 08:59 Last Admin: 05/27/19 16:00 Dose: 5 mg Documented by: [id number] Admin: 05/27/19 10:13 Dose: Not Given Documented by: [id number] Metoprolol Succinate (Toprol Xl) 50 mg PO [facility] Stop: 06/26/19 20:59 Last Admin: 05/27/19 20:32 Dose: 50 mg Documented by: [id number] Miscellaneous (Remove Clonidine Patch) 1 ea N/A We@0859 [facility] Stop: 06/26/19 08:58 Last Admin: 05/27/19 10:23 Dose: 1 ea Documented by: [id number] Brissacellaneous (Check Clonidine Patch) 1 ea N/A [facility] Stop: 06/26/19 15:59 Last Admin: 05/27/19 15:30 Dose: 1 ea Documented by: [id number] Miscellaneous (Order Awaiting Action) 1 ea N/A [facility] Stop: 06/26/19 08:59 Last Admin: 05/27/19 16:12 Dose: Not Given Documented by: [id number] Admin: 05/27/19 11:13 Dose: Not Given Documented by: [id number] Vitamin B Complex/Folic Acid (Nephrocaps) 1 cap PO DAILY [facility]; Protocol Stop: 06/26/19 08:59 Last Admin: 05/27/19 10:13 Dose: Not Given Documented by: [id number] Discontinued Medications Hydralazine HCl (Hydralazine Hcl) 10 mg IV NOW STA Stop: 05/27/19 04:54 Last Admin: 05/27/19 04:59 Dose: 10 mg Documented by: [id number] Hydralazine HCl (Hydralazine Hcl) 10 mg IV NOW STA Stop: 05/27/19 05:13 Last Admin: 05/27/19 05:27 Dose: 10 mg Documented by: [id number] Hydromorphone HCl (Dilaudid) Confirm Administered Dose 1 mg .ROUTE .STK-MED ONE Stop: 05/27/19 09:03 Last Increment: 05/27/19 09:09 Dose: 0.5 mg Documented by: [id number] Hydromorphone HCl (Dilaudid) 0.5 mg IV NOW STA Stop: 05/27/19 09:03 Last Admin: 05/27/19 10:13 Dose: Not Given Documented by: [id number] Hydromorphone HCl (Dilaudid) 0.2 mg IV NOW STA Stop: 05/27/19 18:13 Last Admin: 05/27/19 18:26 Dose: 0.2 mg Documented by: [id number] Insulin Human Regular 250 (units/ Sodium Chloride) 250 mls @ 3 mls/hr IV .Q24H [facility]; Protocol Stop: 06/26/19 05:59 Last Titration: 05/27/19 14:41 Dose: 0 units/hr, 0 mls/hr Documented by: [id number] Cosigned by: [id number] Titration: 05/27/19 12:45 Dose: 0 units/hr, 0 mls/hr Documented by: [id number] Cosigned by: [id number] Titration: 05/27/19 10:46 Dose: 3 units/hr, 3 mls/hr Documented by: [id number] Cosigned by: [id number] Titration: 05/27/19 09:37 Dose: 7.6 units/hr, 7.6 mls/hr Documented by: [id number] Cosigned by: [id number] Titration: 05/27/19 08:51 Dose: 6.3 units/hr, 6.3 mls/hr Documented by: [id number] Cosigned by: [id number] Titration: 05/27/19 08:50 Dose: 4.5 units/hr, 4.5 mls/hr Documented by: [id number] Cosigned by: [id number] Titration: 05/27/19 07:37 Dose: 0 units/hr, 0 mls/hr Documented by: [id number] Cosigned by: [id number] Admin: 05/27/19 06:27 Dose: 7.5 units/hr, 7.5 mls/hr Documented by: [id number] Cosigned by: [id number] Sodium Chloride (Nss) 500 mls @ 80 mls/hr IV .Q6H15M [facility] Stop: 06/26/19 05:59 Last Infusion: 05/27/19 08:26 Dose: 0 mls/hr Documented by: [id number] Admin: 05/27/19 06:16 Dose: 80 mls/hr Documented by: [id number] Sodium Chloride (Nss 1000ml) 1,000 mls @ 100 mls/hr IV .Q10H [facility] Stop: 05/28/19 03:31 Last Admin: 05/27/19 08:25 Dose: Not Given Documented by: [id number] Sodium Chloride (Nss 1000ml) 1,000 mls @ 50 mls/hr IV .Q20H [facility] Stop: 05/29/19 00:14 Last Infusion: 05/27/19 11:16 Dose: 0 mls/hr Documented by: [id number] Admin: 05/27/19 08:24 Dose: 100 mls/hr Documented by: [id number] Enalaprilat 2.5 mg/ Dextrose 27 mls @ 100 mls/hr IV ONE ONE Stop: 05/27/19 09:01 Last Admin: 05/27/19 11:13 Dose: Not Given Documented by: [id number] Insulin Human Regular 5 units/ (Syringe) 5 mls @ 30 mls/min IV NOW ONE Stop: 05/27/19 15:31 Last Admin: 05/27/19 15:30 Dose: 30 mls/min Documented by: [id number] Cosigned by: [id number] Insulin Human Regular 5 units/ (Syringe) 5 mls @ 30 mls/min IV NOW ONE Stop: 05/27/19 17:16 Last Admin: 05/27/19 17:37 Dose: 30 mls/min Documented by: [id number] Cosigned by: [id number] Insulin Aspart (Novolog Flexpen) 0 units SC ACHS [facility] Stop: 06/26/19 07:29 Last Admin: 05/27/19 08:25 Dose: Not Given Documented by: [id number] Cosigned by: [id number] Insulin Aspart (Novolog Flexpen) 0 units SC ACHS [facility] Stop: 06/26/19 07:59 Last Admin: 05/27/19 12:00 Dose: Not Given Documented by: [id number] Cosigned by: [id number] Admin: 05/27/19 08:23 Dose: Not Given Documented by: [id number] Cosigned by: [id number] Insulin Aspart (Novolog Flexpen) 5 units SC NOW ONE; Protocol Stop: 05/27/19 12:46 Last Admin: 05/27/19 12:44 Dose: 5 units Documented by: [id number] Cosigned by: [id number] Insulin Glargine (Lantus Solostar Pen) 15 units SC NOW ONE Stop: 05/27/19 10:46 Last Admin: 05/27/19 11:06 Dose: 15 units Documented by: [id number] Cosigned by: [id number] Insulin Glargine (Lantus Solostar Pen) 4 units SC NOW ONE; Protocol Stop: 05/27/19 12:46 Last Admin: 05/27/19 12:43 Dose: 4 units Documented by: [id number] Cosigned by: [id number] Insulin Human Regular (Novolin R Bolus From Bag) 7.5 units IV ONE ONE Stop: 05/27/19 06:16 Last Admin: 05/27/19 06:26 Dose: 7.5 units Documented by: [id number] Cosigned by: [id number] Labetalol HCl (Normodyne) 10 mg IV ONE ONE Stop: 05/27/19 08:46 Last Admin: 05/27/19 08:48 Dose: 10 mg Documented by: [id number] Cosigned by: [id number] Miscellaneous (Insulin Protocol Goal Range) 1 ea N/A ONE ONE Stop: 05/27/19 07:33 Last Admin: 05/27/19 08:23 Dose: Not Given Documented by: [id number] Ondansetron HCl (Zofran) 4 mg IV Q6H PRN PRN Reason: Nausea Stop: 06/26/19 07:31 Last Admin: 05/27/19 08:37 Dose: 4 mg Documented by: [id number] Critical Care Time Critical Care Time: Yes Total Critical Care Time: 45 Critical care of 45 min performed to assess and manage high likelihood of life- threatening seizures, hypertension, and hyperglycemia, involving labs and imaging performed with assessment to evaluation hypertensive emergency and DKA diagnosis with frequent reassessment. This time includes bedside time, treatment discussions with patient/family/consultants, documentation time and excludes procedure time. Medical Decision Making Medical Records Attestation: I reviewed the patient's medical records. Home Medications Current Medication List: was personally reviewed by me Laboratory Data Attestation: I reviewed the patient's lab results. Result diagrams: 05/27/19 04:23 05/27/19 20:22 Lab Results 05/27/19 05/27/19 05/27/19 Range/Units 04:23 04:23 04:23 WBC 7.61 (4.8-10.8) K/uL RBC 4.28 L (4.7-6.1) M/uL Hgb 12.9 L (14.0-18.0) g/dL Hct 38.3 L (42-52) % MCV 89.5 (80-100) fL MCH 30.1 (25-34) pg MCHC 33.7 (32-36) g/dL RDW Std Deviation 48.0 H (36.4-46.3) fL RDW Coeff of Rebecca 14.6 H (11.5-14.5) % Plt Count 216 (130-400) K/uL MPV 9.6 (7.4-10.4) fL Immature Gran % (Auto) 0.1 % Neut % (Auto) 54.2 % Lymph % (Auto) 32.2 % Gilliam % (Auto) 10.6 % Eos % (Auto) 2.8 % Baso % (Auto) 0.1 % Immature Gran # (Auto) 0.01 (0.00-0.02) K/uL Neut # (Auto) 4.12 (1.4-6.5) K/uL Lymph # (Auto) 2.45 (1.2-3.4) K/uL Gilliam # (Auto) 0.81 H (0.11-0.59) K/uL Eos # (Auto) 0.21 (0-0.5) K/uL Baso # (Auto) 0.01 (0-0.2) K/uL ABG pH (7.35-7.45) ABG pCO2 (35-46) mmHg ABG pO2 (80-95) mm/Hg ABG HCO3 (19-24) mmol/L ABG O2 Saturation (90-95) % ABG Base Excess (-9-1.8) mEq/L Nestor Test (Pos) Barometric Pressure mm/Hg Oxygen Given Sodium 123 L (136-145) mmol/L Potassium 3.7 (3.5-5.1) mmol/L Chloride 88 L (98-107) mmol/L Carbon Dioxide 16 L (21-32) mmol/L Anion Gap 19.0 H (3-11) BUN 59 H (7-18) mg/dl Creatinine 8.09 H* (0.6-1.4) mg/dl Est Cr Clr Drug Dosing 12.0 ml/min Est GFR ( Amer) 9.0 Est GFR (Non-Af Amer) 7.8 BUN/Creatinine Ratio 7.3 L (10-20) Glucose 901 H* (70-99) mg/dl POC Glucose (70-99) Estimat Average Glucose 260 mg/dl Hemoglobin A1c 10.7 H (4.5-5.6) % Calcium 8.2 L (8.5-10.1) mg/dl Phosphorus 5.2 H (2.5-4.9) mg/dl Magnesium 2.1 (1.8-2.4) mg/dl Total Bilirubin 0.4 (0.2-1) mg/dl AST 24 (15-37) U/L ALT 37 (12-78) U/L Alkaline Phosphatase 131 H (45-117) U/L Total Protein 7.2 (6.4-8.2) gm/dl Albumin 2.8 L (3.4-5.0) gm/dl Globulin 4.4 H (2.5-4.0) gm/dl Albumin/Globulin Ratio 0.6 L (0.9-2) Lipase 48 L (73-393) U/L Beta-Hydroxybutyric Acd 0.72 (0.2-2.81) mg/dl TSH 6.500 H (0.300-4.500) uIu/ml 05/27/19 05/27/19 Range/Units 04:52 05:09 WBC (4.8-10.8) K/uL RBC (4.7-6.1) M/uL Hgb (14.0-18.0) g/dL Hct (42-52) % MCV (80-100) fL MCH (25-34) pg MCHC (32-36) g/dL RDW Std Deviation (36.4-46.3) fL RDW Coeff of Rebecca (11.5-14.5) % Plt Count (130-400) K/uL MPV (7.4-10.4) fL Immature Gran % (Auto) % Neut % (Auto) % Lymph % (Auto) % Gilliam % (Auto) % Eos % (Auto) % Baso % (Auto) % Immature Gran # (Auto) (0.00-0.02) K/uL Neut # (Auto) (1.4-6.5) K/uL Lymph # (Auto) (1.2-3.4) K/uL Gilliam # (Auto) (0.11-0.59) K/uL Eos # (Auto) (0-0.5) K/uL Baso # (Auto) (0-0.2) K/uL ABG pH 7.32 L (7.35-7.45) ABG pCO2 32 L (35-46) mmHg ABG pO2 109 H (80-95) mm/Hg ABG HCO3 16 L (19-24) mmol/L ABG O2 Saturation 98.0 H (90-95) % ABG Base Excess -8.8 (-9-1.8) mEq/L Nestor Test Pos (Pos) Barometric Pressure 728.8 mm/Hg Oxygen Given 2L Sodium (136-145) mmol/L Potassium (3.5-5.1) mmol/L Chloride (98-107) mmol/L Carbon Dioxide (21-32) mmol/L Anion Gap (3-11) BUN (7-18) mg/dl Creatinine (0.6-1.4) mg/dl Est Cr Clr Drug Dosing ml/min Est GFR ( Amer) Est GFR (Non-Af Amer) BUN/Creatinine Ratio (10-20) Glucose (70-99) mg/dl POC Glucose > 600 H* (70-99) Estimat Average Glucose mg/dl Hemoglobin A1c (4.5-5.6) % Calcium (8.5-10.1) mg/dl Phosphorus (2.5-4.9) mg/dl Magnesium (1.8-2.4) mg/dl Total Bilirubin (0.2-1) mg/dl AST (15-37) U/L ALT (12-78) U/L Alkaline Phosphatase (45-117) U/L Total Protein (6.4-8.2) gm/dl Albumin (3.4-5.0) gm/dl Globulin (2.5-4.0) gm/dl Albumin/Globulin Ratio (0.9-2) Lipase (73-393) U/L Beta-Hydroxybutyric Acd (0.2-2.81) mg/dl TSH (0.300-4.500) uIu/ml Imaging Data Radiologist's Impression: CT head: Comparison: CT head 05/20/2019 Impression: No CT evidence of acute intracranial process. No depressed calvarial fracture. Incidental findings: Stable examination compared to prior CT. Radiologist: Sukhi Coe MD ECG Data Attestation: I personally reviewed and interpreted this ECG as follows: Indication: + altered mental status Rate (beats per minute): 72 Rhythm: + normal sinus ECG Intervals/blocks: + Normal QRS and + Normal QT ECG [place]: + Normal ECG ST segments: + Normal ST segments Blood Pressure Blood Pressure Findings: Elevated blood pressure Blood Pressure Disposition: further management by hospitalist MDM Narrative Pt here ill appearing after 2 seizures tonight likely due to uncontrolled hypertension and hyperglycemia. Pt with CKD on PD. Family states pt with a history of noncompliance. Pt given midazolam en route. No additional meds given in the ER. Pt slowly more and more alert and able to answer questions. BP slowly improving with IV hydralazine. Once labs resulted, insulin drip started for DKA. No evidence of ICH or CVA. Family reports prior hx of seizures due to similar findings. I do not suspect meningitis/encephalitis. Once pt more arousable, he admitted to nursing staff he didn't take his evening insulin or check his blood sugar yesterday. Case discussed with hospitalist and due to nature of symptoms, pt will likely be placed in ICU as a precaution. Impression & Plan DKA (diabetic ketoacidoses), Seizure, Hypertensive emergency, CKD (chronic kidney disease), Non-compliance Discharge Plan Visit Data *Final* Discharge Date/Time: 05/27/19 06:54 Chief Complaint: Seizure Stated Complaint: SEIZURE ED Provider: Rere Juares Discharge Problem: DKA (diabetic ketoacidoses), Seizure, Hypertensive emergency, CKD (chronic kidney disease), Non-compliance Patient Disposition: Admitted As Inpatient Discharge Instructions Interventions: ED Discharge Assessment Last Done: 05/27/19 06:54
[2019-05-27 05:31] LABS: Base Excess ABG -8.8 mEq/L (-9-1.8); HCO3 ABG 16 mmol/L (19-24); PCO2 ABG 32 mmHg (35-46); PO2 ABG 109 mm/Hg (80-95); pH ABG 7.32 (7.35-7.45)
[2019-05-27 05:35] LABS: Allen Test Pos (Pos)
[2019-05-27 05:48] LABS: Albumin Globulin Ratio 0.6 (0.9-2); Albumin Level 2.8 gm/dl (3.4-5.0); BUN Creatinine Ratio 7.3 (10-20); Bilirubin,Total 0.4 mg/dl (0.2-1); Calcium 8.2 mg/dl (8.5-10.1); Est GFR (Non-African American) 7.8; Globulin 4.4 gm/dl (2.5-4.0); Magnesium 2.1 mg/dl (1.8-2.4); Phosphorus 5.2 mg/dl (2.5-4.9); Potassium 3.7 mmol/L (3.5-5.1); Thyroid Stimulating Hormone 6.5 uIu/ml (0.300-4.500); Total Protein 7.2 gm/dl (6.4-8.2)
[2019-05-27 05:58] LABS: Beta-Hydroxybutyrate 0.72 mg/dl (0.2-2.81)
[2019-05-27] MEDS ORDERED: DKA GOAL RANGE 150-250 mg/dl ONE (05:59)
[2019-05-27] MEDS ORDERED: GLUCOSE 10 TABS/TUBE PO PRN (05:59)
[2019-05-27] MEDS ORDERED: DEXTROSE 50% 50 ML SYRINGE IV PRN (05:59)
[2019-05-27] MEDS ORDERED: GLUCAGON FOR INJ 1 MG VIAL SQ PRN (05:59)
[2019-05-27] MEDS ORDERED: ED DKA INSULIN DRIP ONE (05:59)
[2019-05-27] MEDS ORDERED: GLUCOSE 40% GEL 15 GM TUBE PO PRN (05:59)
[2019-05-27] MEDS ORDERED: CARBOHYDRATES FOR HYPOGLYCEMIA PO PRN (05:59)
[2019-05-27] MEDS ORDERED: SODIUM CHLORIDE 0.9% 500 ML IV SCH (06:00)
[2019-05-27] MEDS ORDERED: INSULIN REGULAR 250 UNITS in SODIUM CHLORIDE 0.9% 247.5 ML IV SCH ×2 (06:00→07:32)
[2019-05-27] MEDS ORDERED: NovoLIN-R BOLUS FROM BAG IV ONE (06:15)
--- NOTE | 2019-05-27 06:23 | History & Physical Report ---
Date of Service May 27, 2019 Assessment & Plan (1) Seizure: Patient with 2 witnessed seizures prior to arrival. Has history of seizures, currently not on any antiepileptic drugs. Suspect that seizures this evening were precipitated by markedly elevated blood pressure is brought was me tabolic derangements in setting of elevated glucose and mild acidemia. No focal deficits on neurological exam. CT head negative for acute intracranial pathology. Admit to PCU Seizure precautions Ativan 1 mg every 30 minutes as needed for seizure activity We will hold off on additional seizure medication at this time Consider neurology consult Present on Admission?: Yes (2) Hyperglycemia: Blood sugar over 900, patient with anion gap at metabolic acidosis. Beta hydroxybutyric acid level normal at 0.72. Possible HHS Admit to PCU Continue insulin drip per protocol -Normal saline at 100 mL/h x 2 L BMP and VBG every 4 hours Check serum osmolarity Present on Admission?: Yes (3) Hypertension: History of hypertension. Has become markedly elevated in the past thought to be secondary to medication nonadherence and clonidine rebound. Blood pressure arrival 238/132 which is improved now after receiving IV hydralazine. Continue home medication regimen Metoprolol 50 mg p.o. nightly Irbesartan 150 mg p.o. every morning Clonazepam 0.5 mg p.o. twice daily with a transdermal patch Hydralazine 10 mg IV every 4 hours as needed for blood pressure over 180 or symptomatic hypertension Continue to closely monitor BP Present on Admission?: Yes (4) End stage renal disease on dialysis due to type 1 diabetes mellitus: Patient receives peritoneal dialysis at home. Received a partial treatment this evening. Chemistry panel and acid-base tolerable this time Admit to PCU Consult nephrology for dialysis needs. Patient was seen by Dr. Rose in the past -Continue Sim Gooden Chemistry panel every 4 hours as above Present on Admission?: Yes (5) Diabetes mellitus type I: As above, patient with type 1 diabetes and hyperglycemia. Possible HHS. Overall poorly controlled with last hemoglobin A1c = 11.6 in March 2019 Insulin drip for now -Labs every 4 hours Continue to monitor blood sugars every hourly Present on Admission?: Yes (6) Anemia: Patient was stable normochromic/normocytic anemia. Most likely secondary to chronic disease as well as iron deficiency Continue Velphoro iron supplement Continue to monitor CBC Present on Admission?: Yes (7) Substance abuse: Remote history of substance abuse. Continue methadone 85 mg p.o. daily F/E/Nnormal saline at 100 mL/h x 2 L, monitor electrolytes replete as needed, type 1 diabetes/ESRD diet as tolerated ProphylaxisSCDs [place] Admit to PCU History of Present Illness Chief Complaint: Seizure, hypertension, hyperglycemia Primary Care Provider: Douglas Dennison, History predominantly obtained through chart review, discussion with patient's significant other at bedside and discussion with the ER attending. Bernard Jones is an unfortunate 33-year-old male with multiple medical problems to include type 1 diabetes, end-stage renal disease on peritoneal dialysis, seizure disorder, hypertension. Patient was at home this evening giving himself dialysis when he had a witnessed seizure. His son was at home with him at the time. He called his mother who then called 911. EMS reports that upon their arrival he was awake alert and oriented. He had a second witnessed seizure in route for which she was administered midazolam 5 mg IM. Patient hypertensive on arrival to the ER at 238/132, he was awake, alert and fo llowing some commands. He was administered 2 doses of hydralazine for hypertensive emergency and an insulin drip was initiated for blood sugar over 900. Patient does not provide much history. States that he "does not feel well". Denies chest pain, palpitations, shortness of breath. Denies abdominal pain, nausea, vomiting, diarrhea, constipation. Does report a slight headache. No additional complaints at this time ER course: Hydralazine 10 mg IV x2, regular insulin 7.5 units followed by insulin drip per protocol, normal saline 500 mL Allergies Allergy/AdvReac Type Severity Reaction Status Date / Time No Known Allergies Allergy Verified 05/27/19 04:52 Home Medications Home Medications Medication Instructions Recorded Confirmed Type methadone 85 mg PO QAM 05/23/18 05/27/19 History bumetanide 1 mg PO QAM 11/03/18 05/27/19 History clonazepam 0.5 mg PO BID 11/03/18 05/27/19 History Velphoro 1,000 mg PO TIDM 03/24/19 05/27/19 History Fransisca-Jj 0.8 mg PO DAILY 05/20/19 05/27/19 History calcium acetate 1,334 mg PO TIDM 05/20/19 05/27/19 History Humalog U-100 Insulin 1 sliding scale dose SUBCUT UD PRN 05/22/19 05/27/19 Rx #15 ml Lantus U-100 Insulin 25 unit SUBCUT HS #0 ml 05/22/19 05/27/19 Rx clonidine 1 patch TRANSDERMAL CQWK #5 ea 05/22/19 05/27/19 Rx irbesartan 150 mg PO QAM #30 tab 05/22/19 05/27/19 Rx metoprolol succinate 50 mg PO HS #30 tab 05/22/19 05/27/19 Rx Past Med/Surg History Social History Preferred Language: Slovak Communication Ability: Effective Dot Net Developer Required: No Beliefs That Will Affect Care: None Current Living Situation: Alone Current Living Situation Comment: brother and Feels Safe at Home: Yes Smoking Status: Never smoker Tobacco Type: cigarettes ; Second Hand Exposure: No ; Hx Alcohol Use: No Hx Substance Use: No (PT DENIES) Review of Systems Review of Systems: All systems reviewed & are unremarkable except as noted in HPI & below Physical Exam Physical Exam: General: patient resting comfortably, somnolent but arousable, answering questions and following commands, NAD, non-toxic in appearance Skin: warm, dry, intact, no rashes or lesions HEENT: NC/AT, PERRL, EOMI, anicteric sclera, conjunctiva without injection, external ear normal to inspection and nontender, nares patent, moist mucus membranes, edentulous, no oropharyngeal lesions, neck supple, trachea midline, no LAD, no thyromegaly, no JVD Heart: +S1/S2, regular, no m/r/g Lungs: equal air entry bilaterally, no rales/rhonchi/wheezes Abd: +BS, soft, NT/ND, no masses/organomegaly/ascites, peritoneal dialysis access site in place with no bleeding/drainage/erythema Ext: warm, 2+ pulses in UE/LE bilaterally, no clubbing/cyanosis, trace pitting edema bilaterally Neuro: nonfocal, patient AA&O x 4, speech intact, no facial droop, moving all extremities on command with equal strength 5/5 Results & Data Vital Signs (Past 12 Hours) Vital Signs Temp Pulse Pulse Resp BP BP Pulse Ox 05/27/19 05:57 76 16 187/102 H 98 05/27/19 05:42 76 16 203/113 H 98 05/27/19 05:36 75 16 203/113 H 99 05/27/19 05:33 75 16 215/111 H 99 05/27/19 05:07 72 20 221/126 H 100 05/27/19 05:00 36.6 C 72 20 238/132 H 97 Laboratory Results Lab Results 05/27/19 05/27/19 05/27/19 Range/Units 04:23 04:23 05:09 WBC 7.61 (4.8-10.8) K/uL RBC 4.28 L (4.7-6.1) M/uL Hgb 12.9 L (14.0-18.0) g/dL Hct 38.3 L (42-52) % MCV 89.5 (80-100) fL MCH 30.1 (25-34) pg MCHC 33.7 (32-36) g/dL RDW Std Deviation 48.0 H (36.4-46.3) fL RDW Coeff of Rebecca 14.6 H (11.5-14.5) % Plt Count 216 (130-400) K/uL MPV 9.6 (7.4-10.4) fL Immature Gran % (Auto) 0.1 % Neut % (Auto) 54.2 % Lymph % (Auto) 32.2 % Will % (Auto) 10.6 % Eos % (Auto) 2.8 % Baso % (Auto) 0.1 % Immature Gran # (Auto) 0.01 (0.00-0.02) K/uL Neut # (Auto) 4.12 (1.4-6.5) K/uL Lymph # (Auto) 2.45 (1.2-3.4) K/uL Will # (Auto) 0.81 H (0.11-0.59) K/uL Eos # (Auto) 0.21 (0-0.5) K/uL Baso # (Auto) 0.01 (0-0.2) K/uL ABG pH 7.32 L (7.35-7.45) ABG pCO2 32 L (35-46) mmHg ABG pO2 109 H (80-95) mm/Hg ABG HCO3 16 L (19-24) mmol/L ABG O2 Saturation 98.0 H (90-95) % ABG Base Excess -8.8 (-9-1.8) mEq/L Nestor Test Pos (Pos) Barometric Pressure 728.8 mm/Hg Oxygen Given 2L Sodium 123 L (136-145) mmol/L Potassium 3.7 (3.5-5.1) mmol/L Chloride 88 L (98-107) mmol/L Carbon Dioxide 16 L (21-32) mmol/L Anion Gap 19.0 H (3-11) BUN 59 H (7-18) mg/dl Creatinine 8.09 H* (0.6-1.4) mg/dl Est Cr Clr Drug Dosing 12.0 ml/min Est GFR ( Amer) 9.0 Est GFR (Non-Af Amer) 7.8 BUN/Creatinine Ratio 7.3 L (10-20) Glucose 901 H* (70-99) mg/dl Calcium 8.2 L (8.5-10.1) mg/dl Phosphorus 5.2 H (2.5-4.9) mg/dl Magnesium 2.1 (1.8-2.4) mg/dl Total Bilirubin 0.4 (0.2-1) mg/dl AST 24 (15-37) U/L ALT 37 (12-78) U/L Alkaline Phosphatase 131 H (45-117) U/L Total Protein 7.2 (6.4-8.2) gm/dl Albumin 2.8 L (3.4-5.0) gm/dl Globulin 4.4 H (2.5-4.0) gm/dl Albumin/Globulin Ratio 0.6 L (0.9-2) Lipase 48 L (73-393) U/L Beta-Hydroxybutyric Acd 0.72 (0.2-2.81) mg/dl TSH 6.500 H (0.300-4.500) uIu/ml Diagnostic Findings CT headPer stat rad: No evidence of acute intracranial process. No depressed calvarial fracture. Stable compared to prior CT from 05/20/2019 ECG Additional Comments: Study shows normal sinus rhythm at 72 bpm, normal axis, AL = 146, QRS = 98, QTc is prolonged at 499, no acute ischemic changes, no change from prior study Code Status & VTE Plan Code Status Full VTE Prophylaxis Plan VTE Prophylaxis will be ordered: Yes PG Care Time/CCT Total # of Minutes Spent Total Time Spent with Patient: Total time spent is greater than 50% in coordination of care (as documented) at patient's floor/unit and/or counseling patient: (1) Anemia Anemia type: iron deficiency (2) Diabetes mellitus type I Diabetes mellitus complication status: with kidney complications Diabetes mellitus complication detail: with chronic kidney disease Chronic kidney disease stage: on chronic dialysis Qualified Code(s): E10.22 - Type 1 diabetes mellitus with diabetic chronic kidney disease; N18.6 - End stage renal disease; Z99.2 - Dependence on renal dialysis (3) Hypertension Hypertension type: essential hypertension Qualified Code(s): I10 - Essential (primary) hypertension
--- NOTE | 2019-05-27 06:34 | CT Scan Report ---
CT head/brain wo con CLINICAL HISTORY: 33 years-old Male with seizure. Acute seizure TECHNIQUE: Multiple axial CT images of the head were obtained without contrast. A dose lowering tech nique was utilized adhering to the principles of ALARA. CT DOSE: 537.48 mGy.cm COMPARISON: Head CT 05/20/2019 FINDINGS: Mildly motion degraded exam. Unchanged ill-defined subcentimeter hypodensity of the coronal radiata l eft frontal lobe on image 13 series 2. No acute intracranial hemorrhage, midline shift, intracranial mass, hydrocephalus, territorial ischemia or abnormal extra-axial collection. The calvarium is intact. The paranasal sinuses, mastoid air cells, and middle ear cavities are clear . IMPRESSION: No acute intracranial abnormality. ACT 112: Negative or not required by law. The above report was generated using voice recognition software. It may contain grammatical, syntax o r spelling errors. Electronically signed by: Rambo Daniels M.D. 05/27/2019 6:32 AM
--- NOTE | 2019-05-27 06:58 | XRay Report ---
KUB HISTORY: Acutely altered mental status with seizure catheter COMPARISON: Chest radiograph of same day and also 05/20/2019 FINDINGS: The bowel gas pattern is non-obstructive. A catheter is noted, distal tip coiled projecting over the right midabdomen. Moderate fecal retention of the right hemicolon and distal sigmoid. There is no organomegaly. No renal calculi. No ureteral calculi. No pneumoperitoneum or pneumatosis. No f racture. IMPRESSION: 1. Nonobstructive bowel gas pattern. 2. Distal tip of a catheter is coiled over the right midabdomen. ACT 112: Negative or not required by law. The above report was generated using voice recognition software. It may contain grammatical, syntax o r spelling errors. Electronically signed by: Rambo Daniels M.D. 05/27/2019 6:56 AM
--- NOTE | 2019-05-27 07:01 | XRay Report ---
XR chest 1V portable HISTORY: 33 years-old Male ams acutely altered mental status with seizure COMPARISON: Chest radiograph 05/20/2019 TECHNIQUE: Portable AP view of the chest FINDINGS: Cardiomediastinal and hilar silhouettes are within normal limits. The patient is rotated towards the right and slightly side bent. No pneumothorax, pleural effusion, focal airspace consolidation or over t pulmonary edema. Mild right hemidiaphragmatic elevation. Bones of the chest are grossly intact. Con vex left curvature of the upper to mid thoracic spine is likely positional. IMPRESSION: No acute process. ACT 112: Negative or not required by law. The above report was generated using voice recognition software. It may contain grammatical, syntax o r spelling errors. Electronically signed by: Rambo Daniels M.D. 05/27/2019 7:00 AM
[2019-05-27 07:29] LABS: Estimated Average Glucose 260 mg/dl; Hemoglobin A1C 10.7 % (4.5-5.6)
[2019-05-27] MEDS ORDERED: INSULIN ASPART 100 UNITS/ML 3 ML PEN SC SCH (07:30)
[2019-05-27] MEDS ORDERED: LORazepam 1 MG/2 ML VIAL IV PRN (07:32)
[2019-05-27] MEDS ORDERED: ONDANSETRON INJ 2 MG/ML 2 ML VIAL IV PRN (07:32)
[2019-05-27] MEDS ORDERED: HydrALAZINE HCL 20 MG/ML VIAL IV PRN (07:32)
[2019-05-27] MEDS ORDERED: SODIUM CHLORIDE 0.9% 1000ML 1,000 ML IV SCH ×2 (07:32→08:15)
[2019-05-27] MEDS ORDERED: INSULIN PROTOCOL GOAL RANGE ONE (07:32)
[2019-05-27] MEDS ORDERED: MODERATE STRESS LEVEL SCH (07:45)
--- NOTE | 2019-05-27 08:08 | Nephrology Consultation ---
Date of Consultation May 27, 2019 Assessment & Plan (1) Hypertensive crisis: concern for this d/t seizures, N/V >> may be hypertensive encephalopathy. Head CT wnl; ECG unchanged from prior, CXR clear >>>goal lower SBP to 180-190s first hour or two and 150-160s subsequently -urgent dialysis -enalaprilat 2.5 mg now IV -got labetalol 10 mg IV x 1 also in addition to ER hydralazine -started labetalol gtt w/ hold parameters for HR; may need to transition to nicardipine gtt; avoid nitroprusside d/t ESRD -could also if needed use enalaprilat 1.25 mg IV prn SBP > 160 q4h Present on Admission?: Yes (2) End stage renal disease on dialysis due to type 1 diabetes mellitus: get on PD today on daylight >> start w/ drain then 8 hrs x 3 exchanges 2.5% -plan routine PD this evening -no indication for PD fluid cultures at this time Present on Admission?: Yes (3) Hyperglycemia: -d/w Dr Verde >> on HHS protocol w/ NS at 100 >> will lower rate of protocol fluids by 50 % Present on Admission?: Yes History of Present Illness Reason for Consultation: dialysis needs Requesting Physician: Dr Multani Attending Physician: Charisse Multani, DO History of Present Illness 33 y/o M whom I'm asked to see for dialysis needs after he was admitted for 2 witnessed seizures and concern for hyperosmolar hyperglycemic state as well as uncontrolled HTN. PMH includes DM 1, ESRD on PD, past opioid abuse on methadone, HCV, HTN. He had 2 witnessed seizures prior to presentation, the first one occurring while on PD overnight. EMS witnessed second seizure en route and pt received ativan for this. Presenting BP was 238/132. In ER he received IV hydralazine and was started on insulin gtt and NS. Of note, pt was recently admitted here 05/20-05/22 for uncontrolled vomiting and HTN urgency w/ inability to take his meds. His OP PD rx is 10 hrs w/ 6 x 2L exchs all 2.5%. he is having severe PAYNE and vomiting on evaluation. participation in ROS limited by these sx. Allergies Allergy/AdvReac Type Severity Reaction Status Date / Time No Known Allergies Allergy Verified 05/27/19 04:52 Home Medications Home Medications Medication Instructions Recorded Confirmed Type methadone 85 mg PO QAM 05/23/18 05/27/19 History bumetanide 1 mg PO QAM 11/03/18 05/27/19 History clonazepam 0.5 mg PO BID 11/03/18 05/27/19 History Velphoro 1,000 mg PO TIDM 03/24/19 05/27/19 History Fransisca-Jj 0.8 mg PO DAILY 05/20/19 05/27/19 History calcium acetate 1,334 mg PO TIDM 05/20/19 05/27/19 History Humalog U-100 Insulin 1 sliding scale dose SUBCUT UD PRN 05/22/19 05/27/19 Rx #15 ml Lantus U-100 Insulin 25 unit SUBCUT HS #0 ml 05/22/19 05/27/19 Rx clonidine 1 patch TRANSDERMAL CQWK #5 ea 05/22/19 05/27/19 Rx irbesartan 150 mg PO QAM #30 tab 05/22/19 05/27/19 Rx metoprolol succinate 50 mg PO HS #30 tab 05/22/19 05/27/19 Rx Patient History Medical History (Updated 05/27/19 @ 06:42 by Charisse Multani DO) Anxiety Diabetes mellitus type 1 Diabetic retinopathy of both eyes ESRD (end stage renal disease) on peritoneal dialysis HS (10 hour treatments) Gastroparesis Hepatitis C History of seizure seizure-like activity 02/14/2019 in setting of severe hyperglycemia (patient states he missed dialysis/insulin dose), DKA, confusion- lifeflighted to [place]/intubated/placed on ventilator. DKA managed with insulin drip on admission. EEG with no seizure activity noted. Neurology consulted and initially started patient on prophylactic Keppra but suspected seizure was complication of hyperglycemia and recommended weaning off anticonvulsants/advised no further neurology workup needed. Per patient, medication/dialysis compliance since discharge with glucoses in the range on 100's-200's on self-checks. Hypertension Peritonitis currently on intraperitoneal abx Seizure Surgical History Hx of tooth extraction Hx of vitrectomy B/L; right vitrectomy: 05/26/18: LMA#5 at [facility] [place] Peritoneal dialysis catheter in place Social History Preferred Language: Greek Communication Ability: Effective Unit Receptionist Required: No Beliefs That Will Affect Care: None Current Living Situation: Alone and Family Current Living Situation Comment: son with patient Feels Safe at Home: Yes Smoking Status: Former smoker Tobacco Type: smokeless tobacco ; Second Hand Exposure: No ; Hx Alcohol Use: No Hx Substance Use: No Review of Systems Review of Systems: All systems reviewed & are unremarkable except as noted in HPI & below Respiratory: no dyspnea Cardiovascular: no chest pain, no palpitations and no edema Physical Exam Constitutional: well developed, well nourished and + acute distress (in position c/o PAYNE, N; on RA) Eyes: EOM intact bilaterally ENMT: Ears: no external ear abnormality Nose: no external nose abnormality Mouth: + dry oral mucous membranes Neck: no nuchal rigidity Respiratory: normal respiratory effort Auscultation: lungs clear to auscultation bilaterally and + diminished lung sounds Cardiovascular: RRR, no murmur, no edema Gastrointestinal (Abdomen): Inspection/Auscultation: normal bowel sounds Percussion/Palpation: abdomen soft; abdomen nontender PD catheter present Musculoskeletal: Extremities: strength 5/5 throughout Skin: no rashes, warm and dry Neurologic: moves all extremities and awake; not confused and not obtunded Speech / Cognition: normal speech fitch, fluent speech, no tremor Psychiatric: Orientation: oriented x 3 (preoccupied) Results & Data Vital Signs (Past 12 Hours) Vital Signs Temp Pulse Pulse Resp BP BP Pulse Ox 05/27/19 06:29 77 16 203/109 H 98 05/27/19 05:57 76 16 187/102 H 98 05/27/19 05:42 76 16 203/113 H 98 05/27/19 05:36 75 16 203/113 H 99 05/27/19 05:33 75 16 215/111 H 99 05/27/19 05:07 72 20 221/126 H 100 05/27/19 05:00 36.6 C 72 20 238/132 H 97 Laboratory Results 05/27/19 04:23 05/27/19 04:23 ABG reviewed Diagnostic Findings KUB, CXR, head CT all w/o acute process
[2019-05-27 08:14] LABS: Base Excess VBG -2.4 mEq/L; Oxygen Saturation VBG 88.4 %; pH VBG 7.39 (7.36-7.41)
[2019-05-27] MEDS: INSULIN ASPART 100 UNITS/ML 3 ML PEN SC SCH ×4 (08:23→20:36)
[2019-05-27 08:42] LABS: BUN Creatinine Ratio 7.6 (10-20); Calcium 8.3 mg/dl (8.5-10.1); Creatinine Clr Calc Pharmacy 12.4 ml/min; Est GFR (African American) 9.3; Potassium 3.7 mmol/L (3.5-5.1)
[2019-05-27] MEDS ORDERED: LABETALOL HCL IV 5 MG/ML 20ML IV ONE (08:45)
[2019-05-27] MEDS ORDERED: ENALAPRILAT 2.5 MG in DEXTROSE 5% 25 ML IV ONE (08:45)
[2019-05-27 08:54] LABS: Beta-Hydroxybutyrate 0.7 mg/dl (0.2-2.81)
[2019-05-27] MEDS ORDERED: BUMETANIDE 1 MG TAB PO SCH (09:00)
[2019-05-27] MEDS ORDERED: HYDROmorphone INJ 1 MG/ML SYRINGE ONE (09:02)
[2019-05-27] MEDS ORDERED: HYDROmorphone INJ 0.5 MG/0.5 ML SYR IV STA ×2 (09:02→18:12)
[2019-05-27] MEDS ORDERED: LABETALOL HCL 300 MG in DEXTROSE 5% 240 ML IV SCH (09:15)
[2019-05-27] MEDS: CALCIUM ACETATE 667 MG CAP PO SCH ×3 (10:07→16:55)
[2019-05-27] MEDS: NORMOSOL-R 1,000 ML IV SCH (10:12)
[2019-05-27] MEDS: METHADONE HCL 5 MG TAB PO SCH ×2 (10:13→16:00)
[2019-05-27] MEDS: NEPHROCAPS PO SCH (10:13)
[2019-05-27] MEDS: clonazePAM 0.5 MG TAB PO SCH ×2 (10:13→20:39)
[2019-05-27] MEDS: METHADONE HCL 10 MG TAB PO SCH ×2 (10:14→16:10)
[2019-05-27] MEDS: IRBESARTAN 150 MG TAB PO SCH (10:14)
--- NOTE | 2019-05-27 10:40 | Critical Care Consultation ---
Date of Consultation May 27, 2019 Assessment & Plan (1) Admitted to intensive care unit: Reason Critically Ill: 33-year-old male here for siezure in the setting of chronic peritoneal dialysis secondary to poorly controlled diabetes type 1 with blood sugars greater than 900 concerning for DKA versus HHS. Past medical history significant for poorly controlled diabetes type 1, ESRD on peritoneal dialysis, seizure disorder, hypertension, hep C, history of substance abuse, chronic pain syndrome Neuro: -[facility] ICU: NEGATIVE -No acute concerns at present, continue to monitor mental status. Seizure 2 witnessed seizures prior to arrival, history of seizures not on medication. On arrival patient had markedly elevated blood pressures to the 230s systolic concern seizures are secondary to this. CT head obtained in the ED is negative for intracranial pathology. Has not had any seizures since admission to the ICU. -Seizure precautions -Lorazepam 1 mg every 30 minutes as needed for seizures -We will hold off on neuro consult for now, however to consider should patient experience any mental status changes Cardiac: Hypertensive crisis Concerned that this is the etiology of his seizures, nausea and vomiting may be secondary to hypertensive encephalopathy. Head CT was within normal limits, ECG unchanged from prior, chest x-ray was clear. Goal is to lower the systolic blood pressure to the 180s and 190s initially and then to the 150s -160 subsequently. Concerned that his hypertension may be secondary to opiate withdrawal -Started on nicardipine drip with goal blood pressure of 180-190 -Avoid needlesticks or anything else that would cause the patient pain or stimulate his sympathetic system -Continue home antihypertensives -Continue methadone and clonazepam to prevent withdrawal Respiratory: -No concerns at present GI: -DM1/ESRD diet RENAL/LYTES: Diabetes type 1 requiring frequent peritoneal dialysis -Nephrology consulted following the recommendations -Urgent dialysis -Received enalaprilat 2.5 mg -On nicardipine gtt. for goal systolic of 1 80-200 -Blood sugars on admission greater than 900 -Started on insulin drip -Glycemic consult placed pharmacy managing -BMP every 4 hours -BSG every 4 hours to limit the need for needle sticks -Replace lytes as needed. ESRD On presentation was 8.09 most recent 7.67 continue to trend : - No concerns at this time. ENDO: -See diabetes type 1 HEME: - Stable H&H. -Will monitor for any drops in the setting of Heparin gtt ID: - No concerns for infection at this point. -Monitor fever curve. INTEGUMENTARY: -No concerns at present LINES/IV ACCESS: -PIVs intact. DVT PROPHYLAXIS: -SCDs Dispo:ICU Thank you for allowing us to be part of this patient's care. Please refer to Dr. Barlow's documentation for any further recommendations. Supervising Physician Co-Signing Physician Notes Dr. Multani was resident physician during care of patient. I separately evaluated patient for adams portions of the history and the exam. I was present during the critical portion of medical decision making, and I discussed the case with the resident. I generally agree with the findings and plan. I suspect the patient had seizure-like activity secondary to hypertensive emergency. He was initially started on nicardipine which lowered his pressures by approximately 20%, I also administered narcotic medication for his severe h eadache which I believe is freight representative of his hypertensive emergency. This seems to have helped his pain cycle which I do believe was contributing to the hypertension in the setting of not being able to hold down his methadone. Of note he does have a prolonged QTC which I believe is secondary to medication effect most likely being the methadone. At this time the patient has completed his peritoneal dialysis. We have transitioned off the insulin infusion as he is not the most appropriate candidate for the hyperglycemic protocol, he does not warrant significant fluid administration and his bicarb is relatively high therefore I believe this is reflective more of hyperglycemia then significant DKA. We will continue to bridge with subcu Lantus and subcu insulin and allow the patient to eat if we are able to get his nausea under control. That appears to have been accomplished and I feel the nausea was also indicative of the pain response/possible early opiate withdrawal. I am concerned the severe headache could be freight representative of PRES, the patient's significant other does report that he is somewhat off however the neuro exam appears to be nonfocal. If this is indicative of PRES I would proceed with a rapid reduction in his systolic blood pressure, if this is not press I would continue with a slow gradual reduction in his blood pressure, current blood pressure goals is 180-200 systolic. Certainly the patient may have a rightward shift of his cerebral autoregulation and any altered mental status may be secondary to the reduction in his blood pressure. Patient is critically ill requiring IV antihypertensives. I have personally spent 40 minutes of critical care time in the direct management of this patient. This is a life/limb threatening event. This includes time spent evaluating patient, direct bedside care, chart review, placing orders, interpretation of diagnostic studies, discussion with consultants, patient, and/or family members regarding treatment decisions, as well as other required patient management activities. This time is exclusive of all separately billable procedures, and teaching time and separate from and in addition to any other critical care service time. History of Present Illness Attending Physician: Marisol Verde MD History of Present Illness Patient is not a great historian, minimally participate in the interview, states "he does not feel well ", majority of HPI obtained from chart review. Patient is 33-year-old male with a past medical history of poorly controlled diabetes type 1, ESRD on peritoneal dialysis, seizure disorder, hypertension, hep C, history of substance abuse, chronic pain syndrome, who presented to the emergency department after sustaining a seizure while giving himself peritoneal dialysis. His son was with him at the time and called his mother who then called 911. EMS reported that on arrival he was awake and alert when he had a second seizure in route to the hospital he was administered Versed 5 mg. On presentation to the ER his blood pressure was 238/132 he was given 2 doses of hydralazine for hypertension emergency and insulin drip was initiated for blood sugars greater than 900. The patient was admitted to the PCU for further evaluation and management. Shortly after arriving to the PCU due to his multiple medical problems the ICU team was called for further evaluation and management. On arrival to the ICU this morning the patient was sleeping. Acute concerns at present relates to his ultimate prognosis and disposition, all questions answered. Allergies Allergy/AdvReac Type Severity Reaction Status Date / Time No Known Allergies Allergy Verified 05/27/19 04:52 Home Medications Home Medications Medication Instructions Recorded Confirmed Type methadone 85 mg PO QAM 05/23/18 05/27/19 History bumetanide 1 mg PO QAM 11/03/18 05/27/19 History clonazepam 0.5 mg PO BID 11/03/18 05/27/19 History Velphoro 1,000 mg PO TIDM 03/24/19 05/27/19 History Fransisca-Jj 0.8 mg PO DAILY 05/20/19 05/27/19 History calcium acetate 1,334 mg PO TIDM 05/20/19 05/27/19 History Humalog U-100 Insulin 1 sliding scale dose SUBCUT UD PRN 05/22/19 05/27/19 Rx #15 ml Lantus U-100 Insulin 25 unit SUBCUT HS #0 ml 05/22/19 05/27/19 Rx clonidine 1 patch TRANSDERMAL CQWK #5 ea 05/22/19 05/27/19 Rx irbesartan 150 mg PO QAM #30 tab 05/22/19 05/27/19 Rx metoprolol succinate 50 mg PO HS #30 tab 05/22/19 05/27/19 Rx Patient History Medical History Anxiety Diabetes mellitus type 1 Diabetic retinopathy of both eyes ESRD (end stage renal disease) on peritoneal dialysis HS (10 hour treatments) Gastroparesis Hepatitis C History of seizure seizure-like activity 02/14/2019 in setting of severe hyperglycemia (patient states he missed dialysis/insulin dose), DKA, confusion- lifeflighted to [place]/intubated/placed on ventilator. DKA managed with insulin drip on admission. EEG with no seizure activity noted. Neurology consulted and initially started patient on prophylactic Keppra but suspected seizure was complication of hyperglycemia and recommended weaning off anticonvulsants/advised no further neurology workup needed. Per patient, medication/dialysis compliance since discharge with glucoses in the range on 100's-200's on self-checks. Hypertension Peritonitis currently on intraperitoneal abx Seizure Surgical History Hx of tooth extraction Hx of vitrectomy B/L; [place]18[place] [facility] [facility] [place] dialysis catheter in place Family History Grandfather (Maternal) Family history of diabetes mellitus Grandfather (Paternal) Family history of diabetes mellitus Grandmother (Paternal) Family history of diabetes mellitus Grandmother (Maternal) Family history of diabetes mellitus Aunt Family history of diabetes mellitus Uncle Family history of diabetes mellitus Social History Preferred Language: Tongan Communication Ability: Effective Alarm Technician Required: No Beliefs That Will Affect Care: None Current Living Situation: Alone and Family Current Living Situation Comment: son with patient Feels Safe at Home: Yes Smoking Status: Former smoker Tobacco Type: smokeless tobacco ; Second Hand Exposure: No ; Hx Alcohol Use: No Hx Substance Use: No Physical Exam Physical Exam: General: In no acute distress, resting comfortably in bed, responsive. HEENT: Normocephalic atraumatic Neck: Normal to visual inspection Cardiac: Regular rate and rhythm, I did not appreciate any significant murmurs, rubs, gallops, normal S1, normal S2. Respiratory: Clear to auscultation bilaterally with symmetrical chest rise, I did not appreciate significant wheezes, rales, rhonchi GI: Bowel sounds present, soft, nontender, nondistended, peritoneal dialysis access site in place MSK: Moves all extremities Skin: No acute concerns at present Neuro: Alert and oriented x4 Psych: Calm, cooperative, minimally engaging with healthcare providers Results & Data Vital Signs (Past 12 Hours) Vital Signs Temp Pulse Pulse Resp BP BP Pulse Ox 05/27/19 06:29 77 16 203/109 H 98 05/27/19 05:57 76 16 187/102 H 98 05/27/19 05:42 76 16 203/113 H 98 05/27/19 05:36 75 16 203/113 H 99 05/27/19 05:33 75 16 215/111 H 99 05/27/19 05:07 72 20 221/126 H 100 05/27/19 05:00 36.6 C 72 20 238/132 H 97 Laboratory Results 05/27/19 05/27/19 05/27/19 Range/Units 09:35 09:02 08:43 WBC (4.8-10.8) K/uL RBC (4.7-6.1) M/uL Hgb (14.0-18.0) g/dL Hct (42-52) % MCV (80-100) fL MCH (25-34) pg MCHC (32-36) g/dL RDW Std Deviation (36.4-46.3) fL RDW Coeff of Rebecca (11.5-14.5) % Plt Count (130-400) K/uL MPV (7.4-10.4) fL Immature Gran % (Auto) % Neut % (Auto) % Lymph % (Auto) % [place] % (Auto) % Eos % (Auto) % Baso % (Auto) % Immature Gran # (Auto) (0.00-0.02) K/uL Neut # (Auto) (1.4-6.5) K/uL Lymph # (Auto) (1.2-3.4) K/uL [place] # (Auto) (0.11-0.59) K/uL Eos # (Auto) (0-0.5) K/uL Baso # (Auto) (0-0.2) K/uL ABG pH (7.35-7.45) ABG pCO2 (35-46) mmHg ABG pO2 (80-95) mm/Hg ABG HCO3 (19-24) mmol/L ABG O2 Saturation (90-95) % ABG Base Excess (-9-1.8) mEq/L Nestor Test (Pos) VBG pH (7.36-7.41) VBG pCO2 (38-50) mmHg VBG pO2 mmHg VBG HCO3 mmol/L VBG O2 Saturation % VBG Base Excess mEq/L Barometric Pressure mm/Hg Oxygen Given Sodium (136-145) mmol/L Potassium (3.5-5.1) mmol/L Chloride (98-107) mmol/L Carbon Dioxide (21-32) mmol/L Anion Gap (3-11) BUN (7-18) mg/dl Creatinine (0.6-1.4) mg/dl Est Cr Clr Drug Dosing ml/min Est GFR ( Amer) Est GFR (Non-Af Amer) BUN/Creatinine Ratio (10-20) Glucose (70-99) mg/dl POC Glucose 460 H* 496 H* 510 H* (70-99) Estimat Average Glucose mg/dl Hemoglobin A1c (4.5-5.6) % Osmolality (280-300) mOsm/kg Calcium (8.5-10.1) mg/dl Phosphorus (2.5-4.9) mg/dl Magnesium (1.8-2.4) mg/dl Total Bilirubin (0.2-1) mg/dl AST (15-37) U/L ALT (12-78) U/L Alkaline Phosphatase (45-117) U/L Total Protein (6.4-8.2) gm/dl Albumin (3.4-5.0) gm/dl Globulin (2.5-4.0) gm/dl Albumin/Globulin Ratio (0.9-2) Lipase (73-393) U/L Beta-Hydroxybutyric Acd (0.2-2.81) mg/dl TSH (0.300-4.500) uIu/ml Free T4 (0.8-1.6) ng/dl 05/27/19 05/27/19 05/27/19 Range/Units 07:51 07:51 07:51 WBC (4.8-10.8) K/uL RBC (4.7-6.1) M/uL Hgb (14.0-18.0) g/dL Hct (42-52) % MCV (80-100) fL MCH (25-34) pg MCHC (32-36) g/dL RDW Std Deviation (36.4-46.3) fL RDW Coeff of Rebecca (11.5-14.5) % Plt Count (130-400) K/uL MPV (7.4-10.4) fL Immature Gran % (Auto) % Neut % (Auto) % Lymph % (Auto) % [place] % (Auto) % Eos % (Auto) % Baso % (Auto) % Immature Gran # (Auto) (0.00-0.02) K/uL Neut # (Auto) (1.4-6.5) K/uL Lymph # (Auto) (1.2-3.4) K/uL [place] # (Auto) (0.11-0.59) K/uL Eos # (Auto) (0-0.5) K/uL Baso # (Auto) (0-0.2) K/uL ABG pH (7.35-7.45) ABG pCO2 (35-46) mmHg ABG pO2 (80-95) mm/Hg ABG HCO3 (19-24) mmol/L ABG O2 Saturation (90-95) % ABG Base Excess (-9-1.8) mEq/L Nestor Test (Pos) VBG pH 7.39 (7.36-7.41) VBG pCO2 38 (38-50) mmHg VBG pO2 56 mmHg VBG HCO3 22 mmol/L VBG O2 Saturation 88.4 % VBG Base Excess -2.4 mEq/L Barometric Pressure 728.8 mm/Hg Oxygen Given Sodium (136-145) mmol/L Potassium (3.5-5.1) mmol/L Chloride (98-107) mmol/L Carbon Dioxide (21-32) mmol/L Anion Gap (3-11) BUN (7-18) mg/dl Creatinine (0.6-1.4) mg/dl Est Cr Clr Drug Dosing ml/min Est GFR ( Amer) Est GFR (Non-Af Amer) BUN/Creatinine Ratio (10-20) Glucose (70-99) mg/dl POC Glucose (70-99) Estimat Average Glucose mg/dl Hemoglobin A1c (4.5-5.6) % Osmolality 312 H (280-300) mOsm/kg Calcium (8.5-10.1) mg/dl Phosphorus (2.5-4.9) mg/dl Magnesium (1.8-2.4) mg/dl Total Bilirubin (0.2-1) mg/dl AST (15-37) U/L ALT (12-78) U/L Alkaline Phosphatase (45-117) U/L Total Protein (6.4-8.2) gm/dl Albumin (3.4-5.0) gm/dl Globulin (2.5-4.0) gm/dl Albumin/Globulin Ratio (0.9-2) Lipase (73-393) U/L Beta-Hydroxybutyric Acd (0.2-2.81) mg/dl TSH (0.300-4.500) uIu/ml Free T4 0.91 (0.8-1.6) ng/dl 05/27/19 05/27/19 05/27/19 Range/Units 07:51 07:36 06:25 WBC (4.8-10.8) K/uL RBC (4.7-6.1) M/uL Hgb (14.0-18.0) g/dL Hct (42-52) % MCV (80-100) fL MCH (25-34) pg MCHC (32-36) g/dL RDW Std Deviation (36.4-46.3) fL RDW Coeff of Rebecca (11.5-14.5) % Plt Count (130-400) K/uL MPV (7.4-10.4) fL Immature Gran % (Auto) % Neut % (Auto) % Lymph % (Auto) % [place] % (Auto) % Eos % (Auto) % Baso % (Auto) % Immature Gran # (Auto) (0.00-0.02) K/uL Neut # (Auto) (1.4-6.5) K/uL Lymph # (Auto) (1.2-3.4) K/uL [place] # (Auto) (0.11-0.59) K/uL Eos # (Auto) (0-0.5) K/uL Baso # (Auto) (0-0.2) K/uL ABG pH (7.35-7.45) ABG pCO2 (35-46) mmHg ABG pO2 (80-95) mm/Hg ABG HCO3 (19-24) mmol/L ABG O2 Saturation (90-95) % ABG Base Excess (-9-1.8) mEq/L Nestor Test (Pos) VBG pH (7.36-7.41) VBG pCO2 (38-50) mmHg VBG pO2 mmHg VBG HCO3 mmol/L VBG O2 Saturation % VBG Base Excess mEq/L Barometric Pressure mm/Hg Oxygen Given Sodium 128 L (136-145) mmol/L Potassium 3.7 (3.5-5.1) mmol/L Chloride 93 L (98-107) mmol/L Carbon Dioxide 22 (21-32) mmol/L Anion Gap 13.0 H (3-11) BUN 60 H (7-18) mg/dl Creatinine 7.86 H* (0.6-1.4) mg/dl Est Cr Clr Drug Dosing 12.4 ml/min Est GFR ( Amer) 9.3 Est GFR (Non-Af Amer) 8.0 BUN/Creatinine Ratio 7.6 L (10-20) Glucose 569 H* (70-99) mg/dl POC Glucose 509 H* (70-99) Estimat Average Glucose mg/dl Hemoglobin A1c (4.5-5.6) % Osmolality (280-300) mOsm/kg Calcium 8.3 L (8.5-10.1) mg/dl Phosphorus (2.5-4.9) mg/dl Magnesium (1.8-2.4) mg/dl Total Bilirubin (0.2-1) mg/dl AST (15-37) U/L ALT (12-78) U/L Alkaline Phosphatase (45-117) U/L Total Protein (6.4-8.2) gm/dl Albumin (3.4-5.0) gm/dl Globulin (2.5-4.0) gm/dl Albumin/Globulin Ratio (0.9-2) Lipase (73-393) U/L Beta-Hydroxybutyric Acd 0.70 3.64 H (0.2-2.81) mg/dl TSH (0.300-4.500) uIu/ml Free T4 (0.8-1.6) ng/dl 05/27/19 05/27/19 05/27/19 Range/Units 05:09 04:52 04:23 WBC (4.8-10.8) K/uL RBC (4.7-6.1) M/uL Hgb (14.0-18.0) g/dL Hct (42-52) % MCV (80-100) fL MCH (25-34) pg MCHC (32-36) g/dL RDW Std Deviation (36.4-46.3) fL RDW Coeff of Rebecca (11.5-14.5) % Plt Count (130-400) K/uL MPV (7.4-10.4) fL Immature Gran % (Auto) % Neut % (Auto) % Lymph % (Auto) % [place] % (Auto) % Eos % (Auto) % Baso % (Auto) % Immature Gran # (Auto) (0.00-0.02) K/uL Neut # (Auto) (1.4-6.5) K/uL Lymph # (Auto) (1.2-3.4) K/uL [place] # (Auto) (0.11-0.59) K/uL Eos # (Auto) (0-0.5) K/uL Baso # (Auto) (0-0.2) K/uL ABG pH 7.32 L (7.35-7.45) ABG pCO2 32 L (35-46) mmHg ABG pO2 109 H (80-95) mm/Hg ABG HCO3 16 L (19-24) mmol/L ABG O2 Saturation 98.0 H (90-95) % ABG Base Excess -8.8 (-9-1.8) mEq/L Nestor Test Pos (Pos) VBG pH (7.36-7.41) VBG pCO2 (38-50) mmHg VBG pO2 mmHg VBG HCO3 mmol/L VBG O2 Saturation % VBG Base Excess mEq/L Barometric Pressure 728.8 mm/Hg Oxygen Given 2L Sodium (136-145) mmol/L Potassium (3.5-5.1) mmol/L Chloride (98-107) mmol/L Carbon Dioxide (21-32) mmol/L Anion Gap (3-11) BUN (7-18) mg/dl Creatinine (0.6-1.4) mg/dl Est Cr Clr Drug Dosing ml/min Est GFR ( Amer) Est GFR (Non-Af Amer) BUN/Creatinine Ratio (10-20) Glucose (70-99) mg/dl POC Glucose > 600 H* (70-99) Estimat Average Glucose 260 mg/dl Hemoglobin A1c 10.7 H (4.5-5.6) % Osmolality (280-300) mOsm/kg Calcium (8.5-10.1) mg/dl Phosphorus (2.5-4.9) mg/dl Magnesium (1.8-2.4) mg/dl Total Bilirubin (0.2-1) mg/dl AST (15-37) U/L ALT (12-78) U/L Alkaline Phosphatase (45-117) U/L Total Protein (6.4-8.2) gm/dl Albumin (3.4-5.0) gm/dl Globulin (2.5-4.0) gm/dl Albumin/Globulin Ratio (0.9-2) Lipase (73-393) U/L Beta-Hydroxybutyric Acd (0.2-2.81) mg/dl TSH (0.300-4.500) uIu/ml Free T4 (0.8-1.6) ng/dl 05/27/19 05/27/19 Range/Units 04:23 04:23 WBC 7.61 (4.8-10.8) K/uL RBC 4.28 L (4.7-6.1) M/uL Hgb 12.9 L (14.0-18.0) g/dL Hct 38.3 L (42-52) % MCV 89.5 (80-100) fL MCH 30.1 (25-34) pg MCHC 33.7 (32-36) g/dL RDW Std Deviation 48.0 H (36.4-46.3) fL RDW Coeff of Rebecca 14.6 H (11.5-14.5) % Plt Count 216 (130-400) K/uL MPV 9.6 (7.4-10.4) fL Immature Gran % (Auto) 0.1 % Neut % (Auto) 54.2 % Lymph % (Auto) 32.2 % [place] % (Auto) 10.6 % Eos % (Auto) 2.8 % Baso % (Auto) 0.1 % Immature Gran # (Auto) 0.01 (0.00-0.02) K/uL Neut # (Auto) 4.12 (1.4-6.5) K/uL Lymph # (Auto) 2.45 (1.2-3.4) K/uL [place] # (Auto) 0.81 H (0.11-0.59) K/uL Eos # (Auto) 0.21 (0-0.5) K/uL Baso # (Auto) 0.01 (0-0.2) K/uL ABG pH (7.35-7.45) ABG pCO2 (35-46) mmHg ABG pO2 (80-95) mm/Hg ABG HCO3 (19-24) mmol/L ABG O2 Saturation (90-95) % ABG Base Excess (-9-1.8) mEq/L Nestor Test (Pos) VBG pH (7.36-7.41) VBG pCO2 (38-50) mmHg VBG pO2 mmHg VBG HCO3 mmol/L VBG O2 Saturation % VBG Base Excess mEq/L Barometric Pressure mm/Hg Oxygen Given Sodium 123 L (136-145) mmol/L Potassium 3.7 (3.5-5.1) mmol/L Chloride 88 L (98-107) mmol/L Carbon Dioxide 16 L (21-32) mmol/L Anion Gap 19.0 H (3-11) BUN 59 H (7-18) mg/dl Creatinine 8.09 H* (0.6-1.4) mg/dl Est Cr Clr Drug Dosing 12.0 ml/min Est GFR ( Amer) 9.0 Est GFR (Non-Af Amer) 7.8 BUN/Creatinine Ratio 7.3 L (10-20) Glucose 901 H* (70-99) mg/dl POC Glucose (70-99) Estimat Average Glucose mg/dl Hemoglobin A1c (4.5-5.6) % Osmolality (280-300) mOsm/kg Calcium 8.2 L (8.5-10.1) mg/dl Phosphorus 5.2 H (2.5-4.9) mg/dl Magnesium 2.1 (1.8-2.4) mg/dl Total Bilirubin 0.4 (0.2-1) mg/dl AST 24 (15-37) U/L ALT 37 (12-78) U/L Alkaline Phosphatase 131 H (45-117) U/L Total Protein 7.2 (6.4-8.2) gm/dl Albumin 2.8 L (3.4-5.0) gm/dl Globulin 4.4 H (2.5-4.0) gm/dl Albumin/Globulin Ratio 0.6 L (0.9-2) Lipase 48 L (73-393) U/L Beta-Hydroxybutyric Acd 0.72 (0.2-2.81) mg/dl TSH 6.500 H (0.300-4.500) uIu/ml Free T4 (0.8-1.6) ng/dl Medications Administered Current Inpatient Medications Acetaminophen (Tylenol) 650 mg PO Q4H PRN PRN Reason: Pain or Fever Stop: 06/26/19 07:31 Calcium Acetate (Phoslo) 1,334 mg PO TIDM [facility] Stop: 06/26/19 07:59 Last Admin: 05/27/19 10:07 Dose: Not Given Documented by: Clonazepam (Klonopin) 0.5 mg PO BID [facility] Stop: 06/26/19 08:59 Last Admin: 05/27/19 10:13 Dose: Not Given Documented by: Clonidine HCl ([id number] 0.2mg/24hr) 1 patch TD We@0900 [facility] Stop: 06/26/19 08:59 Last Admin: 05/27/19 10:23 Dose: 1 patch Documented by: Hydralazine HCl (Hydralazine Hcl) 10 mg IV Q4H PRN PRN Reason: Hypertension Stop: 06/26/19 07:31 Insulin Human Regular 250 (units/ Sodium Chloride) 250 mls @ 6.3 mls/hr IV .Q24H [facility]; Protocol Stop: 06/26/19 05:59 Last Titration: 05/27/19 09:37 Dose: 7.6 units/hr, 7.6 mls/hr Documented by: Lorazepam (Ativan) 1 mg in 2 mls @ 0.5 mls/min IV Q30M PRN PRN Reason: seizure Stop: 06/26/19 07:31 Last Admin: 05/27/19 09:11 Dose: 0.5 mls/min Documented by: Lorazepam (Ativan) 0.5 mg in 1 mls @ 0.5 mls/min IV Q4 PRN PRN Reason: Nausea Stop: 06/26/19 09:05 Parenteral Electrolytes (Normosol-R) 1,000 mls @ 50 mls/hr IV .Q20H [facility] Stop: 06/26/19 09:29 Last Admin: 05/27/19 10:12 Dose: 50 mls/hr Documented by: Nicardipine HCl 25 mg/ Sodium (Chloride) 250 mls @ 50 mls/hr IV .Q5H [facility]; Protocol Stop: 06/26/19 09:44 Insulin Aspart (Novolog Flexpen) 0 units SC ACHS [facility] Stop: 06/26/19 07:59 Last Admin: 05/27/19 08:23 Dose: Not Given Documented by: [facility] (Avapro) [facility] 06/26/19 08:59 Last Admin: 05/27/19 10:14 Dose: Not Given Documented by: Methadone HCl (Dolophine) 80 [facility] [place] Stop: 06/10/19 08:59 Last Admin: 05/27/19 10:14 Dose: Not Given Documented by: Methadone HCl (Dolophine) 5 mg PO QAM [facility] Stop: 06/10/19 08:59 Last Admin: 05/27/19 10:13 Dose: Not Given Documented by: Metoprolol Succinate (Toprol Xl) 50 mg PO HS [facility] Stop: 06/26/19 20:59 Miscellaneous (Remove Clonidine Patch) 1 ea N/A We@0859 [facility] Stop: 06/26/19 08:58 Last Admin: 05/27/19 10:23 Dose: 1 ea Documented by: Miscellaneous (Check Clonidine Patch) 1 ea N/A QS [facility] Stop: 06/26/19 15:59 Miscellaneous (Order Awaiting Action) 1 ea N/A QS [facility] Stop: 06/26/19 08:59 Vitamin B Complex/Folic Acid (Nephrocaps) 1 cap PO DAILY [facility]; Protocol Stop: 06/26/19 08:59 Last Admin: 05/27/19 10:13 Dose: Not Given Documented by: Resident Activity Tracking Resident Involvement: Resident Care Provided Care Provided: Adult Hospital Medicine (ICU)
[2019-05-27] MEDS ORDERED: PHARMACY GLYCEMIC MGMT CONSULT STA (10:44)
[2019-05-27] MEDS ORDERED: INSULIN GLARGINE SOLOSTAR 100 UNITS/ML 3 ML PEN SC ONE ×2 (10:45→12:45)
[2019-05-27] MEDS ORDERED: PHARMACY GLYCEMIC MGMT CONSULT PRN (10:48)
[2019-05-27 11:39] LABS: Base Excess VBG -1.4 mEq/L; Oxygen Saturation VBG 92.8 %; pH VBG 7.41 (7.36-7.41)
[2019-05-27 12:18] LABS: BUN Creatinine Ratio 7.8 (10-20); Creatinine Clr Calc Pharmacy 12.7 ml/min; Est GFR (African American) 9.6; Est GFR (Non-African American) 8.3; Potassium 3.5 mmol/L (3.5-5.1)
[2019-05-27 12:37] LABS: Beta-Hydroxybutyrate 0.57 mg/dl (0.2-2.81)
[2019-05-27] MEDS ORDERED: INSULIN ASPART 100 UNITS/ML 3 ML PEN SC ONE (12:45)
--- NOTE | 2019-05-27 15:21 | Pharmacy Report ---
Glycemic Control Consultation - Date of Service May 27, 2019 - Scope Scope: Glycemic Pharmacist consulted for glycemic control and to write orders per [facility] inpatient glycemic control protocol - Objective Weight: 74.7 kg Accuchecks BSG (last 24hrs): 05/27/19 05/27/19 05/27/19 04:23 04:52 07:36 Glucose 901 H* POC Glucose > 600 H* 509 H* 05/27/19 05/27/19 05/27/19 07:51 08:43 09:02 Glucose 569 H* POC Glucose 510 H* 496 H* 05/27/19 05/27/19 05/27/19 09:35 10:41 11:30 Glucose POC Glucose 460 H* 385 H* 405 H* 05/27/19 05/27/19 05/27/19 11:31 12:33 14:36 Glucose 380 H* POC Glucose 361 H* 370 H* Laboratory Data (last 24hrs): 05/27/19 05/27/19 05/27/19 04:23 06:25 07:51 Potassium 3.7 3.7 Carbon Dioxide 16 L 22 Anion Gap 19.0 H 13.0 H Creatinine 8.09 H* 7.86 H* Est Cr Clr Drug Dosing 12.0 12.4 Osmolality Beta-Hydroxybutyric Acd 0.72 3.64 H 0.70 05/27/19 05/27/19 07:51 11:31 Potassium 3.5 Carbon Dioxide 22 Anion Gap 10.0 Creatinine 7.67 H* Est Cr Clr Drug Dosing 12.7 Osmolality 312 H Beta-Hydroxybutyric Acd 0.57 HbA1c: Hemoglobin A1c 10.7 % (4.5-5.6) H 05/27/19 04:23 - Recent Pertinent Medications Outpatient Anti-diabetic Regimen: * Lantus 25 units SC HS * Humalog * A1c = % [date] The patient is currently receiving: * Insulin drip Risk Factors for Insulin Resistance: * Diet: T1DM - Assessment & Plan Assessment & Plan: ASSESSMENT: * 33 yo M with T1DM known to our glycemic service admitted with seizure associated with hyperglycemia and/or HTN. Unclear if PM dose of home Lantus was administered last night * Insulin drip was initiated in ED. Per ICU rounds discussion - expedite transition to basal/bolus * Not DKA (no acidosis) and not HHS (effective osmolality 296) * Will utilize regimen similar to previous admission PLAN FOR INPATIENT GLYCEMIC CONTROL: * Stop insulin drip. May require occasional IV bolus * Basal insulin * Lantus 19 units (15+4 units) SQ x1 * Bolus insulin * NovoLog per scale ACHS with two overnight checks * Goal Range: Low 120 mg/dL - High 160 mg/dL * Correction Factor: 35 mg/dL/unit * Nutritional / Prandial insulin per carb ratio of 1 unit per 15 grams CHO consumed * Please note that the plan above was derived based on current level of insulin resistance and hospital stress. These recommendations are appropriate for inpatient admission only. Plan of care upon discharge will need to be reassessed to avoid potential outpatient hypo/hyperglycemia. Thank you.
[2019-05-27] MEDS ORDERED: INSULIN HUMAN REGULAR PER UNIT 5 UNITS in SYRINGE 4.95 ML IV ONE ×2 (15:30→17:15)
[2019-05-27] MEDS: CHECK CLONIDINE PATCH PLACEMENT SCH ×2 (15:30→23:49)
[2019-05-27 15:33] LABS: Base Excess VBG 0.8 mEq/L; Oxygen Saturation VBG 92.8 %; pH VBG 7.46 (7.36-7.41)
[2019-05-27 16:06] LABS: BUN Creatinine Ratio 7.5 (10-20); Est GFR (African American) 9.9; Est GFR (Non-African American) 8.5; Potassium 3.9 mmol/L (3.5-5.1)
[2019-05-27 16:19] LABS: Beta-Hydroxybutyrate 1.77 mg/dl (0.2-2.81)
[2019-05-27] MEDS ORDERED: LORazepam 1 MG TAB PO PRN (16:23)
[2019-05-27] MEDS: ACETAMINOPHEN 325 MG TAB PO PRN (16:52)
--- NOTE | 2019-05-27 17:41 | Billing Data ---
Date of Service May 27, 2019 Coding Level of Care Code Critical Care 1st - mins
[2019-05-27 17:56] LABS: Appearance Urine Clear (Clear); Bacteria Urine Automated Negative (Negative); Bilirubin Urine Negative (Negative); Blood Urine Trace (Negative); Color Urine Yellow; Glucose Urine UA 3+ (Negative); Ketones Urine Negative (Negative); Leukocyte Esterase Urine Negative (Negative); Nitrite Urine Negative (Negative); Protein Urine 3+ (Negative); RBC Urine Automated 0-4 /hpf (0-4); Urobilinogen Urine Negative (Negative); pH Urine 6.5 (4.5-7.5)
[2019-05-27 18:13] LABS: Amphetamines+Metham, Urine Neg (Neg); Barbiturates, Urine Neg (Neg); Benzodiazepine, Urine Pos (Neg); Cocaine, Urine Neg (Neg); MDMA (Ecstacy), Urine Neg (Neg); Methadone, Urine Pos (Neg); Opiate, Urine Neg (Neg); Phencyclidine, Urine Neg (Neg)
[2019-05-27] MEDS: LORazepam 0.5 MG/1 ML VIAL IV PRN (18:15)
--- NOTE | 2019-05-27 19:35 | History & Physical Bridge Note ---
Date of Service May 27, 2019 History & Physical Bridge Note I have examined the patient, reviewed the History & Physical and in the interval since the performance of the History & Physical I have noted the following changes of clinical significance: Shortly after the patient arrived to the PCU, I was paged by the nurse as he was having severe headache and significantly elevated blood pressures, with an Accu- Chek in the 500s. I came to assess the patient and he was profusely vomiting onto the floor and complaining of a severe headache all over and felt like his head was going to pop off. Blood pressure at that time was approximately 226/110. I discussed the case with the gun barrel finisher and the agricultural produce sorter and decision was made to transfer him to the intensive care unit for nicardipine drip and intensive management of hypertensive emergency, need for urgent dialysis Vitals reviewed Gen: Alert, awake, agitated, actively vomiting, in mild distress HEENT: Anicteric sclerae, EOMI, PERRL CV: RRR no mgr nl S1S2 Pulm: CTAB no wcr Abd: +BS soft NT ND no masses or hernias Ext: No edema, 2+ DP pulses Skin: No rashes, warm/dry Neuro: Full strength throughout 33-year-old male with history of ESRD on peritoneal dialysis, type 1 diabetes, hypertension, hepatitis C, and methadone dependence, here with hypertensive emergency, severe headache with nausea and vomiting, HHS. -Transfer to ICU -Continue insulin drip for now and continue frequent BMPs every 4 hours with CBGs-gap is closed and beta hydroxybutyric acid is now normal, not so much a DKA picture -IV labetalol x1 was given prior to transfer and he will be placed on a nicardipine drip -With stable noted hypodensity in the left dixon radiata on head CT, significant other reports they have not heard this before-consider MRI of the brain when he is more stable -While not able to take home opioids or benzos, will treat with IV Dilaudid and IV Ativan -For the seizure, likely related to hypertensive emergency-treating blood pressure as above, consider MRI of the brain and neurology consultation -Appreciate nephrology consultation-we will have a urgent dialysis now
[2019-05-27] MEDS: METOPROLOL SUCC 50MG EXT REL TAB PO SCH (20:32)
[2019-05-27 20:36] LABS: Base Excess VBG 1.2 mEq/L; Oxygen Saturation VBG 94.7 %; pH VBG 7.46 (7.36-7.41)
[2019-05-27 21:05] LABS: BUN Creatinine Ratio 7.6 (10-20); Calcium 8.5 mg/dl (8.5-10.1); Creatinine Clr Calc Pharmacy 13.1 ml/min; Est GFR (African American) 9.9; Est GFR (Non-African American) 8.6; Potassium 3.8 mmol/L (3.5-5.1)
--- NOTE | 2019-05-27 21:26 | Magnetic Resonance Report ---
MRI OF THE BRAIN WITHOUT IV CONTRAST CLINICAL HISTORY: Seizure. COMPARISON STUDY: CT of the brain performed the same day 05/27/2019. TECHNIQUE: MRI of the brain was performed utilizing various T1 and T2-weighted sequences in the axial , sagittal, and coronal planes. IV contrast was not administered for this examination. The examinatio n is performed using the seizure protocol. FINDINGS: Brain parenchyma: The brain parenchyma is normal in appearance. There is no hemorrhage or mass effect . There is no restricted diffusion to suggest acute ischemia. Brannon-white matter differentiation is pr eserved. No extra-axial fluid collection is seen. The cerebellar tonsils are normal in configuration. The hippocampi are normal and symmetric. Ventricles, sulci, and cisterns: Normal in configuration. Pituitary and sella: Unremarkable. Intracranial vasculature: Normal flow voids are maintained at the skull base. Orbits: The bony orbits are grossly intact. Orbital contents are normal in appearance. Sinuses and mastoids: Clear. Calvarium: Unremarkable. Cervical cord: Partially visualized cervical spinal cord is normal in morphology and signal intensity . IMPRESSION: No acute intracranial abnormality. ACT 112: Negative or not required by law. Electronically signed by: Jorge Simms M.D. 05/27/2019 9:24 PM
[2019-05-28 00:01] LABS: Base Excess VBG 0.7 mEq/L; Oxygen Saturation VBG 88.3 %; pH VBG 7.43 (7.36-7.41)
[2019-05-28 00:21] LABS: Est GFR (African American) 9.8; Est GFR (Non-African American) 8.5; Potassium 3.6 mmol/L (3.5-5.1)
[2019-05-28 00:22] LABS: BUN Creatinine Ratio 6.8 (10-20); Creatinine Clr Calc Pharmacy 12.9 ml/min
[2019-05-28] MEDS: INSULIN ASPART 100 UNITS/ML 3 ML PEN SC SCH ×6 (00:27→20:55)
[2019-05-28 00:32] LABS: Beta-Hydroxybutyrate 0.85 mg/dl (0.2-2.81)
[2019-05-28 03:53] LABS: Basophils # (auto) 0.02 K/uL (0-0.2); Basophils % (auto) 0.2 %; Eosinophils # (auto) 0.03 K/uL (0-0.5); Eosinophils % (auto) 0.3 %; Hematocrit (blood only) 29.8 % (42-52); Hemoglobin 10.5 g/dL (14.0-18.0); Immature Granulocytes # (auto) 0.02 K/uL (0.00-0.02); Immature Granulocytes % (auto) 0.2 %; Lymphocytes # (auto) 2.75 K/uL (1.2-3.4); Lymphocytes % (auto) 26.6 %; Mean Corpuscular Hemoglobin 30.6 pg (25-34); Mean Corpuscular Hgb Conc 35.2 g/dL (32-36); Mean Corpuscular Volume 86.9 fL (80-100); Mean Platelet Volume 8.2 fL (7.4-10.4); Monocytes # (auto) 1.07 K/uL (0.11-0.59); Monocytes % (auto) 10.4 %; Neutrophils # (auto) 6.44 K/uL (1.4-6.5); Neutrophils % (auto) 62.3 %; Platelet Count 187 K/uL (130-400); RDW Coefficient of Variation 14.7 % (11.5-14.5); RDW Standard Deviation 46.3 fL (36.4-46.3); Red Blood Count 3.43 M/uL (4.7-6.1); White Blood Count 10.33 K/uL (4.8-10.8)
[2019-05-28 04:26] LABS: Alanine Aminotransferase 24 U/L (12-78); Alkaline Phosphatase 89 U/L (45-117); Aspartate Aminotransferase 13 U/L (15-37); BUN Creatinine Ratio 6.7 (10-20); Bilirubin Direct < 0.1 mg/dl (0-0.2); Bilirubin,Total 0.3 mg/dl (0.2-1); Blood Urea Nitrogen 49 mg/dl (7-18); Calcium 8.1 mg/dl (8.5-10.1); Carbon Dioxide 26 mmol/L (21-32); Chloride 97 mmol/L (98-107); Creatinine Clr Calc Pharmacy 13.1 ml/min; Est GFR (Non-African American) 8.6; Glucose 309 mg/dl (70-99); Magnesium 1.9 mg/dl (1.8-2.4); Phosphorus 5.4 mg/dl (2.5-4.9); Potassium 3.3 mmol/L (3.5-5.1); Sodium 132 mmol/L (136-145); Total Protein 5.4 gm/dl (6.4-8.2)
[2019-05-28 04:40] LABS: Beta-Hydroxybutyrate 0.55 mg/dl (0.2-2.81)
[2019-05-28] MEDS: NORMOSOL-R 1,000 ML IV SCH (06:22)
[2019-05-28] MEDS ORDERED: INSULIN GLARGINE SOLOSTAR 100 UNITS/ML 3 ML PEN SC ONE ×2 (07:15→08:45)
--- NOTE | 2019-05-28 07:28 | Critical Care Progress Note ---
Date of Service May 28, 2019 Assessment & Plan (1) Admitted to intensive care unit: Reason Critically Ill: 33-year-old male here for siezure in the setting of chronic peritoneal dialysis secondary to poorly controlled diabetes type 1 with blood sugars greater than 900 concerning for DKA versus HHS. Past medical history significant for poorly controlled diabetes type 1, ESRD on peritoneal dialysis, seizure disorder, hypertension, hep C, history of substance abuse, chronic pain syndrome Neuro: -[facility] ICU: NEGATIVE -No acute concerns at present, continue to monitor mental status. Seizure 2 witnessed seizures prior to arrival, history of seizures not on medication. On arrival patient had markedly elevated blood pressures to the 230s systolic concern seizures are secondary to this. CT head obtained in the ED is negative for intracranial pathology. Has not had any seizures since admission to the ICU. -Seizure precautions -Lorazepam 1 mg prn seizures -MRI last night was negative for paralysis or any other acute intracranial abnormalities Cardiac: Hypertensive crisis Concerned that this is the etiology of his seizures, nausea and vomiting may be secondary to hypertensive encephalopathy. Head CT was within normal limits, ECG unchanged from prior, chest x-ray was clear. Goal is to lower the systolic blood pressure to the 180s and 190s initially and then to the 150s -160 subsequently. Concerned that his hypertension may be secondary to opiate withdrawal. Initially pressures were maintained in the 180s to 190s with nicardipine. -Continue home antihypertensives -Continue methadone and clonazepam to prevent withdrawal -new blood pressure goal 150s to 160s -Holding ARB -prn hydralizine 10 mg q12h Respiratory: -No concerns at present GI: -DM1/ESRD diet RENAL/LYTES: Diabetes type 1 requiring frequent peritoneal dialysis -Nephrology consulted following the recommendations -Electrolytes per nephro -BP goal 150-160 -hold parameters on bp meds -Blood sugars on admission greater than 900 -Glycemic consult placed pharmacy managing ESRD On presentation was CR 8.09 most recent 7.67 continue to trend -CR:7.43 : - No concerns at this time. ENDO: -See diabetes type 1 HEME: - Stable H&H. -Will monitor for any drops in the setting of Heparin gtt ID: - No concerns for infection at this point. -Monitor fever curve. INTEGUMENTARY: -No concerns at present LINES/IV ACCESS: -PIVs intact. DVT PROPHYLAXIS: -SCDs Dispo:stable for downgrade Thank you for allowing us to be part of this patient's care. Please refer to Dr. Barlow's documentation for any further recommendations. Supervising Physician Co-Signing Physician Notes Dr. Multani was resident physician during care of patient. I separately evaluated patient for adams portions of the history and the exam. I was present during the critical portion of medical decision making, and I discussed the case with the resident. I generally agree with the findings and plan. No evidence of press on MRI, will proceed with gradual blood pressure reduction goal BP will be 1 60-1 80. If discontinued his Ativan, we will institute Reglan for nausea control which will be difficult in the setting of known g astroparesis. Patient related that some of the constellation of symptoms are similar to when he has had previous peritoneal infections, in discussion with the dialysis nurse we were able to obtain a specimen from his last peritoneal infusion, this is been sent for culture Gram stain cell count, the visual appearance though was clear. He was recently on antibiotics via the peritoneal fluid, this is not the case at this time. Patient is stable for downgrade out of the ICU Subjective Patient sitting upright in bed this morning in no acute distress. Had a bout of MS this morning. Had MRI last evening that was negative for process. Overall acute patient is clinically and hemodynamically stable. All questions answered, acute concerns related to disposition, blood sugar, and lowering blood pressure appropriately. Physical Exam Physical Exam: General: In no acute distress, resting comfortably in bed, responsive. HEENT: Normocephalic atraumatic Neck: Normal to visual inspection Cardiac: Regular rate and rhythm, I did not appreciate any significant murmurs, rubs, gallops, normal S1, normal S2. Respiratory: Clear to auscultation bilaterally with symmetrical chest rise, I did not appreciate significant wheezes, rales, rhonchi GI: Bowel sounds present, soft, nontender, nondistended, peritoneal dialysis access site in place MSK: Moves all extremities Skin: No acute concerns at present Neuro: Alert and oriented x4 Psych: Calm, cooperative, minimally engaging with healthcare providers Results & Data Vital Signs (Past 12 Hours) Vital Signs Temp Pulse Pulse Resp BP BP Pulse Ox 05/28/19 06:19 71 11 L 128/71 97 05/28/19 05:19 73 18 133/61 97 05/28/19 04:19 37.1 C 75 15 142/70 H 98 05/28/19 03:19 76 18 138/75 05/28/19 02:19 78 18 145/68 H 05/28/19 01:19 77 14 131/63 99 05/28/19 00:19 37 C 82 18 154/80 H 96 05/28/19 00:00 84 05/27/19 23:19 83 13 147/70 H 97 05/27/19 22:19 82 18 138/65 96 05/27/19 21:19 84 14 139/68 96 05/27/19 20:36 37.2 C 85 20 170/82 H 05/27/19 20:19 37.2 C 85 17 170/82 H 96 Laboratory Results 05/28/19 05/28/19 05/28/19 Range/Units 10:05 10:05 10:05 WBC (4.8-10.8) K/uL RBC (4.7-6.1) M/uL Hgb (14.0-18.0) g/dL Hct (42-52) % MCV (80-100) fL MCH (25-34) pg MCHC (32-36) g/dL RDW Std Deviation (36.4-46.3) fL RDW Coeff of Rebecca (11.5-14.5) % Plt Count (130-400) K/uL MPV (7.4-10.4) fL Immature Gran % (Auto) % Neut % (Auto) % Lymph % (Auto) % [place] % (Auto) % Eos % (Auto) % Baso % (Auto) % Immature Gran # (Auto) (0.00-0.02) K/uL Neut # (Auto) (1.4-6.5) K/uL Lymph # (Auto) (1.2-3.4) K/uL [place] # (Auto) (0.11-0.59) K/uL Eos # (Auto) (0-0.5) K/uL Baso # (Auto) (0-0.2) K/uL VBG pH (7.36-7.41) VBG pCO2 (38-50) mmHg VBG pO2 mmHg VBG HCO3 mmol/L VBG O2 Saturation % VBG Base Excess mEq/L Barometric Pressure mm/Hg Sodium (136-145) mmol/L Potassium (3.5-5.1) mmol/L Chloride (98-107) mmol/L Carbon Dioxide (21-32) mmol/L Anion Gap (3-11) BUN (7-18) mg/dl Creatinine (0.6-1.4) mg/dl Est Cr Clr Drug Dosing ml/min Est GFR ( Amer) Est GFR (Non-Af Amer) BUN/Creatinine Ratio (10-20) Glucose (70-99) mg/dl POC Glucose (70-99) Calcium (8.5-10.1) mg/dl Phosphorus (2.5-4.9) mg/dl Magnesium (1.8-2.4) mg/dl Total Bilirubin (0.2-1) mg/dl Direct Bilirubin (0-0.2) mg/dl AST (15-37) U/L ALT (12-78) U/L Alkaline Phosphatase (45-117) U/L Total Protein (6.4-8.2) gm/dl Albumin (3.4-5.0) gm/dl Beta-Hydroxybutyric Acd (0.2-2.81) mg/dl Urine Color Urine Appearance (Clear) Urine pH (4.5-7.5) Ur Specific Benld (1.000-1.030) Urine Protein (Negative) Urine Glucose (UA) (Negative) Urine Ketones (Negative) Urine Blood (Negative) Urine Nitrite (Negative) Urine Bilirubin (Negative) Urine Urobilinogen (Negative) Ur Leukocyte Esterase (Negative) Urine WBC (Auto) (0-5) /hpf Urine RBC (Auto) (0-4) /hpf U Hyaline Cast (Auto) (0-5) /lpf U Epithel Cells (Auto) (0-5) /lpf Urine Bacteria (Auto) (Negative) Fluid Neutrophils % Pending Fluid Lymphocytes % Pending Fluid Eosinophils % Pending Fluid Meso/Macro/[place] % Pending Peritoneal Color Pending Peritoneal Appearance Pending Peritoneal WBC Pending Peritoneal RBC Pending Peritoneal Tot Protein Pending Peritoneal Albumin Pending Nasal Screen MRSA (PCR) (Negative) Urine Opiates Screen (Neg) Ur Methadone, Qual (Neg) U Methadone Metabolites Ur Methadone Confirm Urine Barbiturates (Neg) Ur Phencyclidine (PCP) (Neg) U Amphetamin/Meth Scrn (Neg) MDMA (Ecstasy) Screen (Neg) U OH-Alprazolam Confrm U Benzodiazepines Scrn (Neg) 7-Amino Clonazepam Ur Nordiazepam Confirm U OH-ethylflurazepam U Lorazepam Cnf GC/MS U Oxazepam Confm GC/MS Ur Temazepam Confirm U OH-Triazolam Confirm U OH-Midazolam Confirm Ur Cocaine Metabolite (Neg) U Marijuana (THC) Screen (Neg) Drug Screen Comment Hep Bs Antigen (Neg) Hep Bs Antibody Hep Bs Antibody, Quant (>or=10mIU/mL Immune) mIU/mL 05/28/19 05/28/19 05/28/19 Range/Units 08:18 03:32 03:29 WBC (4.8-10.8) K/uL RBC (4.7-6.1) M/uL Hgb (14.0-18.0) g/dL Hct (42-52) % MCV (80-100) fL MCH (25-34) pg MCHC (32-36) g/dL RDW Std Deviation (36.4-46.3) fL RDW Coeff of Rebecca (11.5-14.5) % Plt Count (130-400) K/uL MPV (7.4-10.4) fL Immature Gran % (Auto) % Neut % (Auto) % Lymph % (Auto) % [place] % (Auto) % Eos % (Auto) % Baso % (Auto) % Immature Gran # (Auto) (0.00-0.02) K/uL Neut # (Auto) (1.4-6.5) K/uL Lymph # (Auto) (1.2-3.4) K/uL [place] # (Auto) (0.11-0.59) K/uL Eos # (Auto) (0-0.5) K/uL Baso # (Auto) (0-0.2) K/uL VBG pH (7.36-7.41) VBG pCO2 (38-50) mmHg VBG pO2 mmHg VBG HCO3 mmol/L VBG O2 Saturation % VBG Base Excess mEq/L Barometric Pressure mm/Hg Sodium (136-145) mmol/L Potassium (3.5-5.1) mmol/L Chloride (98-107) mmol/L Carbon Dioxide (21-32) mmol/L Anion Gap (3-11) BUN (7-18) mg/dl Creatinine (0.6-1.4) mg/dl Est Cr Clr Drug Dosing ml/min Est GFR ( Amer) Est GFR (Non-Af Amer) BUN/Creatinine Ratio (10-20) Glucose (70-99) mg/dl POC Glucose 156 H 307 H* (70-99) Calcium (8.5-10.1) mg/dl Phosphorus (2.5-4.9) mg/dl Magnesium (1.8-2.4) mg/dl Total Bilirubin (0.2-1) mg/dl Direct Bilirubin (0-0.2) mg/dl AST (15-37) U/L ALT (12-78) U/L Alkaline Phosphatase (45-117) U/L Total Protein (6.4-8.2) gm/dl Albumin (3.4-5.0) gm/dl Beta-Hydroxybutyric Acd (0.2-2.81) mg/dl Urine Color Urine Appearance (Clear) Urine pH (4.5-7.5) Ur Specific Ben[place] (1.000-1.030) Urine Protein (Negative) Urine Glucose (UA) (Negative) Urine Ketones (Negative) Urine Blood (Negative) Urine Nitrite (Negative) Urine Bilirubin (Negative) Urine Urobilinogen (Negative) Ur Leukocyte Esterase (Negative) Urine WBC (Auto) (0-5) /hpf Urine RBC (Auto) (0-4) /hpf U Hyaline Cast (Auto) (0-5) /lpf U Epithel Cells (Auto) (0-5) /lpf Urine Bacteria (Auto) (Negative) Fluid Neutrophils % Fluid Lymphocytes % Fluid Eosinophils % Fluid Meso/Macro/[place] % Peritoneal Color Peritoneal Appearance Peritoneal WBC Peritoneal RBC Peritoneal Tot Protein Peritoneal Albumin Nasal Screen MRSA (PCR) (Negative) Urine Opiates Screen (Neg) Ur Methadone, Qual (Neg) U Methadone Metabolites Ur Methadone Confirm Urine Barbiturates (Neg) Ur Phencyclidine (PCP) (Neg) U Amphetamin/Meth Scrn (Neg) MDMA (Ecstasy) Screen (Neg) U OH-Alprazolam Confrm U Benzodiazepines Scrn (Neg) 7-Amino Clonazepam Ur Nordiazepam Confirm U OH-ethylflurazepam U Lorazepam Cnf GC/MS U Oxazepam Confm GC/MS Ur Temazepam Confirm U OH-Triazolam Confirm U OH-Midazolam Confirm Ur Cocaine Metabolite (Neg) U Marijuana (THC) Screen (Neg) Drug Screen Comment Hep Bs Antigen Neg (Neg) Hep Bs Antibody Immune Hep Bs Antibody, Quant 18.27 (>or=10mIU/mL Immune) mIU/mL 05/28/19 05/28/19 05/27/19 Range/Units 03:29 03:29 23:43 WBC 10.33 (4.8-10.8) K/uL RBC 3.43 L (4.7-6.1) M/uL Hgb 10.5 L (14.0-18.0) g/dL Hct 29.8 L (42-52) % MCV 86.9 (80-100) fL MCH 30.6 (25-34) pg MCHC 35.2 (32-36) g/dL RDW Std Deviation 46.3 (36.4-46.3) fL RDW Coeff of Rebecca 14.7 H (11.5-14.5) % Plt Count 187 (130-400) K/uL MPV 8.2 (7.4-10.4) fL Immature Gran % (Auto) 0.2 % Neut % (Auto) 62.3 % Lymph % (Auto) 26.6 % [place] % (Auto) 10.4 % Eos % (Auto) 0.3 % Baso % (Auto) 0.2 % Immature Gran # (Auto) 0.02 (0.00-0.02) K/uL Neut # (Auto) 6.44 (1.4-6.5) K/uL Lymph # (Auto) 2.75 (1.2-3.4) K/uL [place] # (Auto) 1.07 H (0.11-0.59) K/uL Eos # (Auto) 0.03 (0-0.5) K/uL Baso # (Auto) 0.02 (0-0.2) K/uL VBG pH 7.43 H (7.36-7.41) VBG pCO2 39 (38-50) mmHg VBG pO2 55 mmHg VBG HCO3 25 mmol/L VBG O2 Saturation 88.3 % VBG Base Excess 0.7 mEq/L Barometric Pressure 737.1 mm/Hg Sodium 132 L (136-145) mmol/L Potassium 3.3 L (3.5-5.1) mmol/L Chloride 97 L (98-107) mmol/L Carbon Dioxide 26 (21-32) mmol/L Anion Gap 9.0 (3-11) BUN 49 H (7-18) mg/dl Creatinine 7.43 H* (0.6-1.4) mg/dl Est Cr Clr Drug Dosing 13.1 ml/min Est GFR ( Amer) 10.0 Est GFR (Non-Af Amer) 8.6 BUN/Creatinine Ratio 6.7 L (10-20) Glucose 309 H* (70-99) mg/dl POC Glucose (70-99) Calcium 8.1 L (8.5-10.1) mg/dl Phosphorus 5.4 H (2.5-4.9) mg/dl Magnesium 1.9 (1.8-2.4) mg/dl Total Bilirubin 0.3 (0.2-1) mg/dl Direct Bilirubin < 0.1 (0-0.2) mg/dl AST 13 L (15-37) U/L ALT 24 (12-78) U/L Alkaline Phosphatase 89 (45-117) U/L Total Protein 5.4 L D (6.4-8.2) gm/dl Albumin 2.0 L (3.4-5.0) gm/dl Beta-Hydroxybutyric Acd 0.55 (0.2-2.81) mg/dl Urine Color Urine Appearance (Clear) Urine pH (4.5-7.5) Ur Specific Ben[place] (1.000-1.030) Urine Protein (Negative) Urine Glucose (UA) (Negative) Urine Ketones (Negative) Urine Blood (Negative) Urine Nitrite (Negative) Urine Bilirubin (Negative) Urine Urobilinogen (Negative) Ur Leukocyte Esterase (Negative) Urine WBC (Auto) (0-5) /hpf Urine RBC (Auto) (0-4) /hpf U Hyaline Cast (Auto) (0-5) /lpf U Epithel Cells (Auto) (0-5) /lpf Urine Bacteria (Auto) (Negative) Fluid Neutrophils % Fluid Lymphocytes % Fluid Eosinophils % Fluid Meso/Macro/[place] % Peritoneal Color Peritoneal Appearance Peritoneal WBC Peritoneal RBC Peritoneal Tot Protein Peritoneal Albumin Nasal Screen MRSA (PCR) (Negative) Urine Opiates Screen (Neg) Ur Methadone, Qual (Neg) U Methadone Metabolites Ur Methadone Confirm Urine Barbiturates (Neg) Ur Phencyclidine (PCP) (Neg) U Amphetamin/Meth Scrn (Neg) MDMA (Ecstasy) Screen (Neg) U OH-Alprazolam Confrm U Benzodiazepines Scrn (Neg) 7-Amino Clonazepam Ur Nordiazepam Confirm U OH-ethylflurazepam U Lorazepam Cnf GC/MS U Oxazepam Confm GC/MS Ur Temazepam Confirm U OH-Triazolam Confirm U OH-Midazolam Confirm Ur Cocaine Metabolite (Neg) U Marijuana (THC) Screen (Neg) Drug Screen Comment Hep Bs Antigen (Neg) Hep Bs Antibody Hep Bs Antibody, Quant (>or=10mIU/mL Immune) mIU/mL 05/27/19 05/27/19 05/27/19 Range/Units 23:43 20:30 20:22 WBC (4.8-10.8) K/uL RBC (4.7-6.1) M/uL Hgb (14.0-18.0) g/dL Hct (42-52) % MCV (80-100) fL MCH (25-34) pg MCHC (32-36) g/dL RDW Std Deviation (36.4-46.3) fL RDW Coeff of Rebecca (11.5-14.5) % Plt Count (130-400) K/uL MPV (7.4-10.4) fL Immature Gran % (Auto) % Neut % (Auto) % Lymph % (Auto) % [place] % (Auto) % Eos % (Auto) % Baso % (Auto) % Immature Gran # (Auto) (0.00-0.02) K/uL Neut # (Auto) (1.4-6.5) K/uL Lymph # (Auto) (1.2-3.4) K/uL [place] # (Auto) (0.11-0.59) K/uL Eos # (Auto) (0-0.5) K/uL Baso # (Auto) (0-0.2) K/uL VBG pH 7.46 H (7.36-7.41) VBG pCO2 35 L (38-50) mmHg VBG pO2 71 mmHg VBG HCO3 25 mmol/L VBG O2 Saturation 94.7 % VBG Base Excess 1.2 mEq/L Barometric Pressure 735.1 mm/Hg Sodium 132 L (136-145) mmol/L Potassium 3.6 (3.5-5.1) mmol/L Chloride 96 L (98-107) mmol/L Carbon Dioxide 25 (21-32) mmol/L Anion Gap 11.0 (3-11) BUN 51 H (7-18) mg/dl Creatinine 7.53 H* (0.6-1.4) mg/dl Est Cr Clr Drug Dosing 12.9 ml/min Est GFR ( Amer) 9.8 Est GFR (Non-Af Amer) 8.5 BUN/Creatinine Ratio 6.8 L (10-20) Glucose 368 H* (70-99) mg/dl POC Glucose 280 H (70-99) Calcium 8.0 L (8.5-10.1) mg/dl Phosphorus (2.5-4.9) mg/dl Magnesium (1.8-2.4) mg/dl Total Bilirubin (0.2-1) mg/dl Direct Bilirubin (0-0.2) mg/dl AST (15-37) U/L ALT (12-78) U/L Alkaline Phosphatase (45-117) U/L Total Protein (6.4-8.2) gm/dl Albumin (3.4-5.0) gm/dl Beta-Hydroxybutyric Acd 0.85 (0.2-2.81) mg/dl Urine Color Urine Appearance (Clear) Urine pH (4.5-7.5) Ur Specific Ben[place] (1.000-1.030) Urine Protein (Negative) Urine Glucose (UA) (Negative) Urine Ketones (Negative) Urine Blood (Negative) Urine Nitrite (Negative) Urine Bilirubin (Negative) Urine Urobilinogen (Negative) Ur Leukocyte Esterase (Negative) Urine WBC (Auto) (0-5) /hpf Urine RBC (Auto) (0-4) /hpf U Hyaline Cast (Auto) (0-5) /lpf U Epithel Cells (Auto) (0-5) /lpf Urine Bacteria (Auto) (Negative) Fluid Neutrophils % Fluid Lymphocytes % Fluid Eosinophils % Fluid Meso/Macro/[place] % Peritoneal Color Peritoneal Appearance Peritoneal WBC Peritoneal RBC Peritoneal Tot Protein Peritoneal Albumin Nasal Screen MRSA (PCR) (Negative) Urine Opiates Screen (Neg) Ur Methadone, Qual (Neg) U Methadone Metabolites Ur Methadone Confirm Urine Barbiturates (Neg) Ur Phencyclidine (PCP) (Neg) U Amphetamin/Meth Scrn (Neg) MDMA (Ecstasy) Screen (Neg) U OH-Alprazolam Confrm U Benzodiazepines Scrn (Neg) 7-Amino Clonazepam Ur Nordiazepam Confirm U OH-ethylflurazepam U Lorazepam Cnf GC/MS U Oxazepam Confm GC/MS Ur Temazepam Confirm U OH-Triazolam Confirm U OH-Midazolam Confirm Ur Cocaine Metabolite (Neg) U Marijuana (THC) Screen (Neg) Drug Screen Comment Hep Bs Antigen (Neg) Hep Bs Antibody Hep Bs Antibody, Quant (>or=10mIU/mL Immune) mIU/mL 05/27/19 05/27/19 05/27/19 Range/Units 20:22 17:31 17:30 WBC (4.8-10.8) K/uL RBC (4.7-6.1) M/uL Hgb (14.0-18.0) g/dL Hct (42-52) % MCV (80-100) fL MCH (25-34) pg MCHC (32-36) g/dL RDW Std Deviation (36.4-46.3) fL RDW Coeff of Rebecca (11.5-14.5) % Plt Count (130-400) K/uL MPV (7.4-10.4) fL Immature Gran % (Auto) % Neut % (Auto) % Lymph % (Auto) % [place] % (Auto) % Eos % (Auto) % Baso % (Auto) % Immature Gran # (Auto) (0.00-0.02) K/uL Neut # (Auto) (1.4-6.5) K/uL Lymph # (Auto) (1.2-3.4) K/uL [place] # (Auto) (0.11-0.59) K/uL Eos # (Auto) (0-0.5) K/uL Baso # (Auto) (0-0.2) K/uL VBG pH (7.36-7.41) VBG pCO2 (38-50) mmHg VBG pO2 mmHg VBG HCO3 mmol/L VBG O2 Saturation % VBG Base Excess mEq/L Barometric Pressure mm/Hg Sodium 131 L (136-145) mmol/L Potassium 3.8 (3.5-5.1) mmol/L Chloride 96 L (98-107) mmol/L Carbon Dioxide 24 (21-32) mmol/L Anion Gap 11.0 (3-11) BUN 57 H (7-18) mg/dl Creatinine 7.44 H* (0.6-1.4) mg/dl Est Cr Clr Drug Dosing 13.1 ml/min Est GFR ( Amer) 9.9 Est GFR (Non-Af Amer) 8.6 BUN/Creatinine Ratio 7.6 L (10-20) Glucose 289 H (70-99) mg/dl POC Glucose 349 H* (70-99) Calcium 8.5 (8.5-10.1) mg/dl Phosphorus (2.5-4.9) mg/dl Magnesium (1.8-2.4) mg/dl Total Bilirubin (0.2-1) mg/dl Direct Bilirubin (0-0.2) mg/dl AST (15-37) U/L ALT (12-78) U/L Alkaline Phosphatase (45-117) U/L Total Protein (6.4-8.2) gm/dl Albumin (3.4-5.0) gm/dl Beta-Hydroxybutyric Acd (0.2-2.81) mg/dl Urine Color Urine Appearance (Clear) Urine pH (4.5-7.5) Ur Specific [place] (1.000-1.030) Urine Protein (Negative) Urine Glucose (UA) (Negative) Urine Ketones (Negative) Urine Blood (Negative) Urine Nitrite (Negative) Urine Bilirubin (Negative) Urine Urobilinogen (Negative) Ur Leukocyte Esterase (Negative) Urine WBC (Auto) (0-5) /hpf Urine RBC (Auto) (0-4) /hpf U Hyaline Cast (Auto) (0-5) /lpf U Epithel Cells (Auto) (0-5) /lpf Urine Bacteria (Auto) (Negative) Fluid Neutrophils % Fluid Lymphocytes % Fluid Eosinophils % Fluid Meso/Macro/[place] % Peritoneal Color Peritoneal Appearance Peritoneal WBC Peritoneal RBC Peritoneal Tot Protein Peritoneal Albumin Nasal Screen MRSA (PCR) (Negative) Urine Opiates Screen (Neg) Ur Methadone, Qual (Neg) U Methadone Metabolites Pending Ur Methadone Confirm Pending Urine Barbiturates (Neg) Ur Phencyclidine (PCP) (Neg) U Amphetamin/Meth Scrn (Neg) MDMA (Ecstasy) Screen (Neg) U OH-Alprazolam Confrm Pending U Benzodiazepines Scrn (Neg) 7-Amino Clonazepam Pending Ur Nordiazepam Confirm Pending U OH-ethylflurazepam Pending U Lorazepam Cnf GC/MS Pending U Oxazepam Confm GC/MS Pending Ur Temazepam Confirm Pending U OH-Triazolam Confirm Pending U OH-Midazolam Confirm Pending Ur Cocaine Metabolite (Neg) U Marijuana (THC) Screen (Neg) Drug Screen Comment Pending Hep Bs Antigen (Neg) Hep Bs Antibody Hep Bs Antibody, Quant (>or=10mIU/mL Immune) mIU/mL 05/27/19 05/27/19 05/27/19 Range/Units 17:30 17:30 16:26 WBC (4.8-10.8) K/uL RBC (4.7-6.1) M/uL Hgb (14.0-18.0) g/dL Hct (42-52) % MCV (80-100) fL MCH (25-34) pg MCHC (32-36) g/dL RDW Std Deviation (36.4-46.3) fL RDW Coeff of Rebecca (11.5-14.5) % Plt Count (130-400) K/uL MPV (7.4-10.4) fL Immature Gran % (Auto) % Neut % (Auto) % Lymph % (Auto) % [place] % (Auto) % Eos % (Auto) % Baso % (Auto) % Immature Gran # (Auto) (0.00-0.02) K/uL Neut # (Auto) (1.4-6.5) K/uL Lymph # (Auto) (1.2-3.4) K/uL [place] # (Auto) (0.11-0.59) K/uL Eos # (Auto) (0-0.5) K/uL Baso # (Auto) (0-0.2) K/uL VBG pH (7.36-7.41) VBG pCO2 (38-50) mmHg VBG pO2 mmHg VBG HCO3 mmol/L VBG O2 Saturation % VBG Base Excess mEq/L Barometric Pressure mm/Hg Sodium (136-145) mmol/L Potassium (3.5-5.1) mmol/L Chloride (98-107) mmol/L Carbon Dioxide (21-32) mmol/L Anion Gap (3-11) BUN (7-18) mg/dl Creatinine (0.6-1.4) mg/dl Est Cr Clr Drug Dosing ml/min Est GFR ( Amer) Est GFR (Non-Af Amer) BUN/Creatinine Ratio (10-20) Glucose (70-99) mg/dl POC Glucose 335 H* (70-99) Calcium (8.5-10.1) mg/dl Phosphorus (2.5-4.9) mg/dl Magnesium (1.8-2.4) mg/dl Total Bilirubin (0.2-1) mg/dl Direct Bilirubin (0-0.2) mg/dl AST (15-37) U/L ALT (12-78) U/L Alkaline Phosphatase (45-117) U/L Total Protein (6.4-8.2) gm/dl Albumin (3.4-5.0) gm/dl Beta-Hydroxybutyric Acd (0.2-2.81) mg/dl Urine Color Yellow Urine Appearance Clear (Clear) Urine pH 6.5 (4.5-7.5) Ur Specific Ben[place] 1.020 (1.000-1.030) Urine Protein 3+ H (Negative) Urine Glucose (UA) 3+ H (Negative) Urine Ketones Negative (Negative) Urine Blood Trace H (Negative) Urine Nitrite Negative (Negative) Urine Bilirubin Negative (Negative) Urine Urobilinogen Negative (Negative) Ur Leukocyte Esterase Negative (Negative) Urine WBC (Auto) 1-5 (0-5) /hpf Urine RBC (Auto) 0-4 (0-4) /hpf U Hyaline Cast (Auto) 1-5 (0-5) /lpf U Epithel Cells (Auto) 5-10 H (0-5) /lpf Urine Bacteria (Auto) Negative (Negative) Fluid Neutrophils % Fluid Lymphocytes % Fluid Eosinophils % Fluid Meso/Macro/[place] % Peritoneal Color Peritoneal Appearance Peritoneal WBC Peritoneal RBC Peritoneal Tot Protein Peritoneal Albumin Nasal Screen MRSA (PCR) (Negative) Urine Opiates Screen Neg (Neg) Ur Methadone, Qual Pos H (Neg) U Methadone Metabolites Ur Methadone Confirm Urine Barbiturates Neg (Neg) Ur Phencyclidine (PCP) Neg (Neg) U Amphetamin/Meth Scrn Neg (Neg) MDMA (Ecstasy) Screen Neg (Neg) U OH-Alprazolam Confrm U Benzodiazepines Scrn Pos H (Neg) 7-Amino Clonazepam Ur Nordiazepam Confirm U OH-ethylflurazepam U Lorazepam Cnf GC/MS U Oxazepam Confm GC/MS Ur Temazepam Confirm U OH-Triazolam Confirm U OH-Midazolam Confirm Ur Cocaine Metabolite Neg (Neg) U Marijuana (THC) Screen Neg (Neg) Drug Screen Comment Hep Bs Antigen (Neg) Hep Bs Antibody Hep Bs Antibody, Quant (>or=10mIU/mL Immune) mIU/mL 05/27/19 05/27/19 05/27/19 Range/Units 15:17 15:17 14:36 WBC (4.8-10.8) K/uL RBC (4.7-6.1) M/uL Hgb (14.0-18.0) g/dL Hct (42-52) % MCV (80-100) fL MCH (25-34) pg MCHC (32-36) g/dL RDW Std Deviation (36.4-46.3) fL RDW Coeff of Rebecca (11.5-14.5) % Plt Count (130-400) K/uL MPV (7.4-10.4) fL Immature Gran % (Auto) % Neut % (Auto) % Lymph % (Auto) % [place] % (Auto) % Eos % (Auto) % Baso % (Auto) % Immature Gran # (Auto) (0.00-0.02) K/uL Neut # (Auto) (1.4-6.5) K/uL Lymph # (Auto) (1.2-3.4) K/uL [place] # (Auto) (0.11-0.59) K/uL Eos # (Auto) (0-0.5) K/uL Baso # (Auto) (0-0.2) K/uL VBG pH 7.46 H (7.36-7.41) VBG pCO2 35 L (38-50) mmHg VBG pO2 65 mmHg VBG HCO3 24 mmol/L VBG O2 Saturation 92.8 % VBG Base Excess 0.8 mEq/L Barometric Pressure 730.1 mm/Hg Sodium 128 L (136-145) mmol/L Potassium 3.9 (3.5-5.1) mmol/L Chloride 95 L (98-107) mmol/L Carbon Dioxide 23 (21-32) mmol/L Anion Gap 10.0 (3-11) BUN 57 H (7-18) mg/dl Creatinine 7.49 H* (0.6-1.4) mg/dl Est Cr Clr Drug Dosing 13.0 ml/min Est GFR ( Amer) 9.9 Est GFR (Non-Af Amer) 8.5 BUN/Creatinine Ratio 7.5 L (10-20) Glucose 369 H* (70-99) mg/dl POC Glucose 370 H* (70-99) Calcium 8.0 L (8.5-10.1) mg/dl Phosphorus (2.5-4.9) mg/dl Magnesium (1.8-2.4) mg/dl Total Bilirubin (0.2-1) mg/dl Direct Bilirubin (0-0.2) mg/dl AST (15-37) U/L ALT (12-78) U/L Alkaline Phosphatase (45-117) U/L Total Protein (6.4-8.2) gm/dl Albumin (3.4-5.0) gm/dl Beta-Hydroxybutyric Acd 1.77 (0.2-2.81) mg/dl Urine Color Urine Appearance (Clear) Urine pH (4.5-7.5) Ur Specific [place] (1.000-1.030) Urine Protein (Negative) Urine Glucose (UA) (Negative) Urine Ketones (Negative) Urine Blood (Negative) Urine Nitrite (Negative) Urine Bilirubin (Negative) Urine Urobilinogen (Negative) Ur Leukocyte Esterase (Negative) Urine WBC (Auto) (0-5) /hpf Urine RBC (Auto) (0-4) /hpf U Hyaline Cast (Auto) (0-5) /lpf U Epithel Cells (Auto) (0-5) /lpf Urine Bacteria (Auto) (Negative) Fluid Neutrophils % Fluid Lymphocytes % Fluid Eosinophils % Fluid [place] % Peritoneal Color Peritoneal Appearance Peritoneal WBC Peritoneal RBC Peritoneal Tot Protein Peritoneal Albumin Nasal Screen MRSA (PCR) (Negative) Urine Opiates Screen (Neg) Ur Methadone, Qual (Neg) U Methadone Metabolites Ur Methadone Confirm Urine Barbiturates (Neg) Ur Phencyclidine (PCP) (Neg) U Amphetamin/Meth Scrn (Neg) MDMA (Ecstasy) Screen (Neg) U OH-Alprazolam Confrm U Benzodiazepines Scrn (Neg) 7-Amino Clonazepam Ur Nordiazepam Confirm U OH-ethylflurazepam U Lorazepam Cnf GC/MS U Oxazepam Confm GC/MS Ur Temazepam Confirm U OH-Triazolam Confirm U OH-Midazolam Confirm Ur Cocaine Metabolite (Neg) U Marijuana (THC) Screen (Neg) Drug Screen Comment Hep Bs Antigen (Neg) Hep Bs Antibody Hep Bs Antibody, Quant (>or=10mIU/mL Immune) mIU/mL 05/27/19 05/27/19 05/27/19 Range/Units 12:33 11:31 11:31 WBC (4.8-10.8) K/uL RBC (4.7-6.1) M/uL Hgb (14.0-18.0) g/dL Hct (42-52) % MCV (80-100) fL MCH (25-34) pg MCHC (32-36) g/dL RDW Std Deviation (36.4-46.3) fL RDW Coeff of Rebecca (11.5-14.5) % Plt Count (130-400) K/uL MPV (7.4-10.4) fL Immature Gran % (Auto) % Neut % (Auto) % Lymph % (Auto) % [place] % (Auto) % Eos % (Auto) % Baso % (Auto) % Immature Gran # (Auto) (0.00-0.02) K/uL Neut # (Auto) (1.4-6.5) K/uL Lymph # (Auto) (1.2-3.4) K/uL [place] # (Auto) (0.11-0.59) K/uL Eos # (Auto) (0-0.5) K/uL Baso # (Auto) (0-0.2) K/uL VBG pH 7.41 (7.36-7.41) VBG pCO2 37 L (38-50) mmHg VBG pO2 79 mmHg VBG HCO3 23 mmol/L VBG O2 Saturation 92.8 % VBG Base Excess -1.4 mEq/L Barometric Pressure 729.4 mm/Hg Sodium 127 L (136-145) mmol/L Potassium 3.5 (3.5-5.1) mmol/L Chloride 95 L (98-107) mmol/L Carbon Dioxide 22 (21-32) mmol/L Anion Gap 10.0 (3-11) BUN 60 H (7-18) mg/dl Creatinine 7.67 H* (0.6-1.4) mg/dl Est Cr Clr Drug Dosing 12.7 ml/min Est GFR ( Amer) 9.6 Est GFR (Non-Af Amer) 8.3 BUN/Creatinine Ratio 7.8 L (10-20) Glucose 380 H* (70-99) mg/dl POC Glucose 361 H* (70-99) Calcium 8.0 L (8.5-10.1) mg/dl Phosphorus (2.5-4.9) mg/dl Magnesium (1.8-2.4) mg/dl Total Bilirubin (0.2-1) mg/dl Direct Bilirubin (0-0.2) mg/dl AST (15-37) U/L ALT (12-78) U/L Alkaline Phosphatase (45-117) U/L Total Protein (6.4-8.2) gm/dl Albumin (3.4-5.0) gm/dl Beta-Hydroxybutyric Acd 0.57 (0.2-2.81) mg/dl Urine Color Urine Appearance (Clear) Urine pH (4.5-7.5) Ur Specific Benld (1.000-1.030) Urine Protein (Negative) Urine Glucose (UA) (Negative) Urine Ketones (Negative) Urine Blood (Negative) Urine Nitrite (Negative) Urine Bilirubin (Negative) Urine Urobilinogen (Negative) Ur Leukocyte Esterase (Negative) Urine WBC (Auto) (0-5) /hpf Urine RBC (Auto) (0-4) /hpf U Hyaline Cast (Auto) (0-5) /lpf U Epithel Cells (Auto) (0-5) /lpf Urine Bacteria (Auto) (Negative) Fluid Neutrophils % Fluid Lymphocytes % Fluid Eosinophils % Fluid [place] % Peritoneal Color Peritoneal Appearance Peritoneal WBC Peritoneal RBC Peritoneal Tot Protein Peritoneal Albumin Nasal Screen MRSA (PCR) (Negative) Urine Opiates Screen (Neg) Ur Methadone, Qual (Neg) U Methadone Metabolites Ur Methadone Confirm Urine Barbiturates (Neg) Ur Phencyclidine (PCP) (Neg) U Amphetamin/Meth Scrn (Neg) MDMA (Ecstasy) Screen (Neg) U OH-Alprazolam Confrm U Benzodiazepines Scrn (Neg) 7-Amino Clonazepam Ur Nordiazepam Confirm U OH-ethylflurazepam U Lorazepam Cnf GC/MS U Oxazepam Confm GC/MS Ur Temazepam Confirm U OH-Triazolam Confirm U OH-Midazolam Confirm Ur Cocaine Metabolite (Neg) U Marijuana (THC) Screen (Neg) Drug Screen Comment Hep Bs Antigen (Neg) Hep Bs Antibody Hep Bs Antibody, Quant (>or=10mIU/mL Immune) mIU/mL 05/27/19 05/27/19 05/27/19 Range/Units 11:30 10:41 10:05 WBC (4.8-10.8) K/uL RBC (4.7-6.1) M/uL Hgb (14.0-18.0) g/dL Hct (42-52) % MCV (80-100) fL MCH (25-34) pg MCHC (32-36) g/dL RDW Std Deviation (36.4-46.3) fL RDW Coeff of Rebecca (11.5-14.5) % Plt Count (130-400) K/uL MPV (7.4-10.4) fL Immature Gran % (Auto) % Neut % (Auto) % Lymph % (Auto) % [place] % (Auto) % Eos % (Auto) % Baso % (Auto) % Immature Gran # (Auto) (0.00-0.02) K/uL Neut # (Auto) (1.4-6.5) K/uL Lymph # (Auto) (1.2-3.4) K/uL [place] # (Auto) (0.11-0.59) K/uL Eos # (Auto) (0-0.5) K/uL Baso # (Auto) (0-0.2) K/uL VBG pH (7.36-7.41) VBG pCO2 (38-50) mmHg VBG pO2 mmHg VBG HCO3 mmol/L VBG O2 Saturation % VBG Base Excess mEq/L Barometric Pressure mm/Hg Sodium (136-145) mmol/L Potassium (3.5-5.1) mmol/L Chloride (98-107) mmol/L Carbon Dioxide (21-32) mmol/L Anion Gap (3-11) BUN (7-18) mg/dl Creatinine (0.6-1.4) mg/dl Est Cr Clr Drug Dosing ml/min Est GFR ( Amer) Est GFR (Non-Af Amer) BUN/Creatinine Ratio (10-20) Glucose (70-99) mg/dl POC Glucose 405 H* 385 H* (70-99) Calcium (8.5-10.1) mg/dl Phosphorus (2.5-4.9) mg/dl Magnesium (1.8-2.4) mg/dl Total Bilirubin (0.2-1) mg/dl Direct Bilirubin (0-0.2) mg/dl AST (15-37) U/L ALT (12-78) U/L Alkaline Phosphatase (45-117) U/L Total Protein (6.4-8.2) gm/dl Albumin (3.4-5.0) gm/dl Beta-Hydroxybutyric Acd (0.2-2.81) mg/dl Urine Color Urine Appearance (Clear) Urine pH (4.5-7.5) Ur Specific Ben[place] (1.000-1.030) Urine Protein (Negative) Urine Glucose (UA) (Negative) Urine Ketones (Negative) Urine Blood (Negative) Urine Nitrite (Negative) Urine Bilirubin (Negative) Urine Urobilinogen (Negative) Ur Leukocyte Esterase (Negative) Urine WBC (Auto) (0-5) /hpf Urine RBC (Auto) (0-4) /hpf U Hyaline Cast (Auto) (0-5) /lpf U Epithel Cells (Auto) (0-5) /lpf Urine Bacteria (Auto) (Negative) Fluid Neutrophils % Fluid Lymphocytes % Fluid Eosinophils % Fluid [place] % Peritoneal Color Peritoneal Appearance Peritoneal WBC Peritoneal RBC Peritoneal Tot Protein Peritoneal Albumin Nasal Screen MRSA (PCR) Negative (Negative) Urine Opiates Screen (Neg) Ur Methadone, Qual (Neg) U Methadone Metabolites Ur Methadone Confirm Urine Barbiturates (Neg) Ur Phencyclidine (PCP) (Neg) U Amphetamin/Meth Scrn (Neg) MDMA (Ecstasy) Screen (Neg) U OH-Alprazolam Confrm U Benzodiazepines Scrn (Neg) 7-Amino Clonazepam Ur Nordiazepam Confirm U OH-ethylflurazepam U Lorazepam Cnf GC/MS U Oxazepam Confm GC/MS Ur Temazepam Confirm U OH-Triazolam Confirm U OH-Midazolam Confirm Ur Cocaine Metabolite (Neg) U Marijuana (THC) Screen (Neg) Drug Screen Comment Hep Bs Antigen (Neg) Hep Bs Antibody Hep Bs Antibody, Quant (>or=10mIU/mL Immune) mIU/mL Medications Administered Current Inpatient Medications Acetaminophen (Tylenol) 650 mg PO Q4H PRN PRN Reason: Pain or Fever Stop: 06/26/19 07:31 Last Admin: 05/27/19 16:52 Dose: 650 mg Documented by: Calcium Acetate (Phoslo) 1,334 mg PO TIDM [facility] Stop: 06/26/19 07:59 Last Admin: 05/28/19 08:50 Dose: Not Given Documented by: Clonazepam (Klonopin) 0.5 mg PO BID [facility] Stop: 06/26/19 08:59 Last Admin: 05/27/19 20:39 Dose: 0.5 mg Documented by: Clonidine HCl ([id number] 0.2mg/24hr) 1 patch TD We@0900 [facility] Stop: 06/26/19 08:59 Last Admin: 05/27/19 10:23 Dose: 1 patch Documented by: Hydralazine HCl (Hydralazine Hcl) 10 mg IV Q4H PRN PRN Reason: Hypertension Stop: 06/26/19 07:31 Last Admin: 05/27/19 17:25 Dose: 10 mg Documented by: Insulin Aspart (Novolog Flexpen) 0 units SC [facility]; Protocol Stop: 06/26/19 16:29 Last Admin: 05/28/19 08:54 Dose: Not Given Documented by: Irbesartan (Avapro) 150 mg PO [facility] Stop: 06/26/19 08:59 Last Admin: 05/28/19 08:54 Dose: Not Given Documented by: Lorazepam (Ativan) 1 mg PO ONE PRN PRN Reason: Anxiety Stop: 06/26/19 16:22 Methadone HCl (Dolophine) 80 mg PO QAGREAT [facility] [place] [facility] Stop: 06/10/19 08:59 Last Admin: 05/28/19 08:44 Dose: 80 mg Documented by: Methadone HCl (Dolophine) 5 mg PO QAM [facility] Stop: 06/10/19 08:59 Last Admin: 05/28/19 08:44 Dose: 5 mg Documented by: Metoclopramide HCl (Reglan) 5 mg IV Q8H PRN PRN Reason: Nausea And Vomiting Stop: 06/27/19 09:47 Metoprolol Succinate (Toprol Xl) 50 mg PO HS [facility] Stop: 06/26/19 20:59 Last Admin: 05/27/19 20:32 Dose: 50 mg Documented by: Miscellaneous (Remove Clonidine Patch) 1 ea N/A We@0859 [facility] Stop: 06/26/19 08:58 Last Admin: 05/27/19 10:23 Dose: 1 ea Documented by: Miscellaneous (Check Clonidine Patch) 1 ea N/A QS [facility] Stop: 06/26/19 15:59 Last Admin: 05/28/19 08:53 Dose: 1 ea Documented by: Miscellaneous (Order Awaiting Action) 1 ea N/A QS [facility] Stop: 06/26/19 08:59 Last Admin: 05/28/19 08:50 Dose: Not Given Documented by: Miscellaneous Information (Consult Glycemic Management Pharmacy) 1 ea N/A UD PRN PRN Reason: Consult Stop: 06/26/19 10:47 Vitamin B Complex/Folic Acid (Nephrocaps) 1 cap PO DAILY [facility]; Protocol Stop: 06/26/19 08:59 Last Admin: 05/28/19 08:50 Dose: 1 cap Documented by: Resident Activity Tracking Resident Involvement: Resident Care Provided Care Provided: Adult Hospital Medicine (ICU)
[2019-05-28 08:09] LABS: Hepatitis B Surface Ab Quant 18.27 mIU/mL (>or=10mIU/mL Immune); Hepatitis B Surface Antibody Immune
[2019-05-28 08:20] LABS: Hepatitis B Surface Antigen Neg (Neg)
[2019-05-28] MEDS: LORazepam 0.5 MG/1 ML VIAL IV PRN (08:27)
[2019-05-28] MEDS: METHADONE HCL 5 MG TAB PO SCH (08:44)
[2019-05-28] MEDS: METHADONE HCL 10 MG TAB PO SCH (08:44)
[2019-05-28] MEDS: NEPHROCAPS PO SCH (08:50)
[2019-05-28] MEDS: CALCIUM ACETATE 667 MG CAP PO SCH ×3 (08:50→17:45)
[2019-05-28] MEDS: CHECK CLONIDINE PATCH PLACEMENT SCH ×2 (08:53→16:00)
[2019-05-28] MEDS: IRBESARTAN 150 MG TAB PO SCH (08:54)
[2019-05-28] MEDS ORDERED: METOCLOPRAMIDE HCL INJ 5 MG/ML 2 ML VIAL IV PRN (09:48)
[2019-05-28] MEDS: POTASSIUM CHLORIDE / WTR 10 MEQ/100 ML PLCT IV SCH ×2 (10:44→12:38)
[2019-05-28] MEDS: clonazePAM 0.5 MG TAB PO SCH ×2 (10:45→20:58)
--- NOTE | 2019-05-28 10:55 | Hospitalist Progress Note ---
Date of Service May 28, 2019 Assessment & Plan (1) Hypertensive crisis: Patient presented with hypertensive emergency and seizure, blood pressures were 238/122 on admission Required IV hydralazine, IV labetalol, Cardene drip, and home doses of metoprolol and continued clonidine patch Was in ICU and now transferred out today MRI of the brain without evidence of PRES -Continue clonidine patch, Toprol-XL 50 mg at bedtime -Continue holding irbesartan as per nephrology recommendation, can use Vasotec as needed for SBP greater than 160 -Do not want to bring blood pressure down too low today -We will give IV labetalol and IV hydralazine as needed (2) Seizure: Patient with 2 witnessed seizures prior to arrival-his 9-year-old son was lying next to him in bed and felt him shaking. Has history of seizures, currently not on any antiepileptic drugs. Suspect that seizures this admission and on a previous admission were precipitated by markedly elevated blood pressure and metabolic derangements in setting of elevated glucose and mild acid emia. No focal deficits on neurological exam. CT head negative for acute intracranial pathology. MRI of the brain negative for PRES or tumor or stroke -He had an EEG and was seen by neurology at [facility] on his recent admission there-patient thinks it was a similar episode in which he was not placed on antiepileptic drugs Seizure precautions Ativan 1 mg every 30 minutes as needed for seizure activity We will hold off on additional seizure medication at this time -No need for neurology consult at this point -No need for EEG (3) Hyperglycemia: With HHS, serum osmolality 312 on admission May have been precipitated by high dextrose content in diasylate fluid Blood sugar over 900 upon admission, patient with anion gap metabolic acidosis that closed quite quickly. Beta hydroxybutyric acid level normal at 0.72. pH only mildly acidotic on admission Treated initially with insulin drip and then transition to Lantus and NovoLog Sugars now much improved Pharmacy is managing glycemic control Continue insulin drip per protocol -DC IV fluids -Follow BMP -Follow Accu-Cheks Hemoglobin A1c uncontrolled at 10.7% (4) Hypertension: As above -Continue home metoprolol -Holding home Avapro -Continue home clonidine patch (5) End stage renal disease on dialysis due to type 1 diabetes mellitus: Patient receives peritoneal dialysis at home. -Appreciate nephrology management -will have daily peritoneal dialysis here -Continue PhosLo -Follow BMP daily (6) Diabetes mellitus type I: As above, patient with type 1 diabetes and hyperglycemia/HHS. Overall poorly controlled with ESRD, diabetic retinopathy, gastroparesis Lantus and NovoLog as per pharmacy (7) Anemia: Patient was stable normochromic/normocytic anemia. Most likely secondary to chronic disease as well as iron deficiency Continue Velphoro iron supplement Continue to monitor CBC (8) Substance abuse: Remote history of substance abuse. Continue methadone 85 mg p.o. daily (9) Prolonged Q-T interval on ECG: QTc 499 on admission -Avoid QT prolonging agents (10) Hypokalemia: Replaced with K riders today (11) Peritoneal dialysis catheter in place: Noted as above (12) Gastroparesis: -Reglan as needed (13) Hepatitis C: Has not been treated in the past (14) Headache: Now resolved, was secondary to hypertensive emergency (15) Anxiety: Continue clonazepam home dose twice daily (16) DVT prophylaxis: SCDs Disposition-stable for transfer out of the ICU to PCU Subjective Patient feeling much better today. No headache at all. He did throw up one time this morning when he sat up but he reports a long history of gastroparesis and throws up frequently in the morning. Blood pressures were much better controlled but then did become elevated again when I first came to see him. He denies any chest pain or shortness of breath. No abdominal pain. He makes some urine daily. He is moving his bowels regularly. I discussed the case with the construction management assistant Patient reports that he did have an EEG and was seen by neurologist just a few months ago during his admission at [facility] in [place]. He was not diagnosed with a seizure disorder Review of Systems Review of Systems: All systems reviewed & are unremarkable except as noted in HPI & below Physical Exam Constitutional: average body habitus (Appears older than given age); no acute distress Eyes: + anicteric sclerae ENMT: external ear and nose normal, oropharynx normal Neck: trachea midline, no thyromegaly Respiratory: normal respiratory effort, lungs clear to auscultation Cardiovascular: RRR, no murmur, no edema Chest (Breasts): Chest: normal inspection of chest Gastrointestinal (Abdomen): normal bowel sounds, soft, nontender, no hepatosplenomegaly Musculoskeletal: Extremities: extremities normal to inspection; no cyanosis and no clubbing Skin: no rashes, warm and dry Neurologic: moves all extremities and awake; no focal motor deficits Psychiatric: A+Ox3, euthymic affect Lymphatic: no lymphedema Results & Data Vital Signs (Past 12 Hours) Vital Signs Temp Pulse Pulse Resp BP Pulse Ox 05/28/19 09:50 37.1 C 72 14 05/28/19 06:19 71 11 L 128/71 97 05/28/19 05:19 73 18 133/61 97 05/28/19 04:19 37.1 C 75 15 142/70 H 98 05/28/19 03:19 76 18 138/75 05/28/19 02:19 78 18 145/68 H 05/28/19 01:19 77 14 131/63 99 05/28/19 00:19 37 C 82 18 154/80 H 96 05/28/19 00:00 84 05/27/19 23:19 83 13 147/70 H 97 Laboratory Results 05/28/19 05/28/19 05/28/19 Range/Units 16:22 11:48 11:23 WBC (4.8-10.8) K/uL RBC (4.7-6.1) M/uL Hgb (14.0-18.0) g/dL Hct (42-52) % MCV (80-100) fL MCH (25-34) pg MCHC (32-36) g/dL RDW Std Deviation (36.4-46.3) fL RDW Coeff of Rebecca (11.5-14.5) % Plt Count (130-400) K/uL MPV (7.4-10.4) fL Immature Gran % (Auto) % Neut % (Auto) % Lymph % (Auto) % [place] % (Auto) % Eos % (Auto) % Baso % (Auto) % Immature Gran # (Auto) (0.00-0.02) K/uL Neut # (Auto) (1.4-6.5) K/uL Lymph # (Auto) (1.2-3.4) K/uL [place] # (Auto) (0.11-0.59) K/uL Eos # (Auto) (0-0.5) K/uL Baso # (Auto) (0-0.2) K/uL VBG pH (7.36-7.41) VBG pCO2 (38-50) mmHg VBG pO2 mmHg VBG HCO3 mmol/L VBG O2 Saturation % VBG Base Excess mEq/L Barometric Pressure mm/Hg Sodium 135 L (136-145) mmol/L Potassium 3.6 (3.5-5.1) mmol/L Chloride 98 (98-107) mmol/L Carbon Dioxide 27 (21-32) mmol/L Anion Gap 10.0 (3-11) BUN 48 H (7-18) mg/dl Creatinine 7.52 H* (0.6-1.4) mg/dl Est Cr Clr Drug Dosing 11.9 ml/min Est GFR ( Amer) 9.8 Est GFR (Non-Af Amer) 8.5 BUN/Creatinine Ratio 6.4 L (10-20) Glucose 188 H (70-99) mg/dl POC Glucose 290 H 188 H (70-99) Calcium 8.6 (8.5-10.1) mg/dl Phosphorus (2.5-4.9) mg/dl Magnesium (1.8-2.4) mg/dl Total Bilirubin (0.2-1) mg/dl Direct Bilirubin (0-0.2) mg/dl AST (15-37) U/L ALT (12-78) U/L Alkaline Phosphatase (45-117) U/L Total Protein (6.4-8.2) gm/dl Albumin (3.4-5.0) gm/dl Beta-Hydroxybutyric Acd (0.2-2.81) mg/dl Fluid Neutrophils % % Fluid Lymphocytes % % Fluid Eosinophils % % Fluid Basophils % % Fluid Meso/Macro/[place] % % Peritoneal Color Peritoneal Appearance Peritoneal WBC (0-300) /ul Peritoneal RBC /uL Peritoneal Tot Protein g/dl Peritoneal Albumin g/dl Nasal Screen MRSA (PCR) (Negative) Hep Bs Antigen (Neg) Hep Bs Antibody Hep Bs Antibody, Quant (>or=10mIU/mL Immune) mIU/mL 05/28/19 05/28/19 05/28/19 Range/Units 10:05 10:05 10:05 WBC (4.8-10.8) K/uL RBC (4.7-6.1) M/uL Hgb (14.0-18.0) g/dL Hct (42-52) % MCV (80-100) fL MCH (25-34) pg MCHC (32-36) g/dL RDW Std Deviation (36.4-46.3) fL RDW Coeff of Rebecca (11.5-14.5) % Plt Count (130-400) K/uL MPV (7.4-10.4) fL Immature Gran % (Auto) % Neut % (Auto) % Lymph % (Auto) % [place] % (Auto) % Eos % (Auto) % Baso % (Auto) % Immature Gran # (Auto) (0.00-0.02) K/uL Neut # (Auto) (1.4-6.5) K/uL Lymph # (Auto) (1.2-3.4) K/uL [place] # (Auto) (0.11-0.59) K/uL Eos # (Auto) (0-0.5) K/uL Baso # (Auto) (0-0.2) K/uL VBG pH (7.36-7.41) VBG pCO2 (38-50) mmHg VBG pO2 mmHg VBG HCO3 mmol/L VBG O2 Saturation % VBG Base Excess mEq/L Barometric Pressure mm/Hg Sodium (136-145) mmol/L Potassium (3.5-5.1) mmol/L Chloride (98-107) mmol/L Carbon Dioxide (21-32) mmol/L Anion Gap (3-11) BUN (7-18) mg/dl Creatinine (0.6-1.4) mg/dl Est Cr Clr Drug Dosing ml/min Est GFR ( Amer) Est GFR (Non-Af Amer) BUN/Creatinine Ratio (10-20) Glucose (70-99) mg/dl POC Glucose (70-99) Calcium (8.5-10.1) mg/dl Phosphorus (2.5-4.9) mg/dl Magnesium (1.8-2.4) mg/dl Total Bilirubin (0.2-1) mg/dl Direct Bilirubin (0-0.2) mg/dl AST (15-37) U/L ALT (12-78) U/L Alkaline Phosphatase (45-117) U/L Total Protein (6.4-8.2) gm/dl Albumin (3.4-5.0) gm/dl Beta-Hydroxybutyric Acd (0.2-2.81) mg/dl Fluid Neutrophils % 4 % Fluid Lymphocytes % 16 % Fluid Eosinophils % 0 % Fluid Basophils % 0 % Fluid Meso/Macro/[place] % 80 % Peritoneal Color COLORLESS Peritoneal Appearance CLEAR Peritoneal WBC 13 (0-300) /ul Peritoneal RBC < 3000 /uL Peritoneal Tot Protein Cancelled 0.2 g/dl Peritoneal Albumin < 0.6 g/dl Nasal Screen MRSA (PCR) (Negative) Hep Bs Antigen (Neg) Hep Bs Antibody Hep Bs Antibody, Quant (>or=10mIU/mL Immune) mIU/mL 05/28/19 05/28/19 05/28/19 Range/Units 08:18 03:32 03:29 WBC (4.8-10.8) K/uL RBC (4.7-6.1) M/uL Hgb (14.0-18.0) g/dL Hct (42-52) % MCV (80-100) fL MCH (25-34) pg MCHC (32-36) g/dL RDW Std Deviation (36.4-46.3) fL RDW Coeff of Rebecca (11.5-14.5) % Plt Count (130-400) K/uL MPV (7.4-10.4) fL Immature Gran % (Auto) % Neut % (Auto) % Lymph % (Auto) % [place] % (Auto) % Eos % (Auto) % Baso % (Auto) % Immature Gran # (Auto) (0.00-0.02) K/uL Neut # (Auto) (1.4-6.5) K/uL Lymph # (Auto) (1.2-3.4) K/uL [place] # (Auto) (0.11-0.59) K/uL Eos # (Auto) (0-0.5) K/uL Baso # (Auto) (0-0.2) K/uL VBG pH (7.36-7.41) VBG pCO2 (38-50) mmHg VBG pO2 mmHg VBG HCO3 mmol/L VBG O2 Saturation % VBG Base Excess mEq/L Barometric Pressure mm/Hg Sodium (136-145) mmol/L Potassium (3.5-5.1) mmol/L Chloride (98-107) mmol/L Carbon Dioxide (21-32) mmol/L Anion Gap (3-11) BUN (7-18) mg/dl Creatinine (0.6-1.4) mg/dl Est Cr Clr Drug Dosing ml/min Est GFR ( Amer) Est GFR (Non-Af Amer) BUN/Creatinine Ratio (10-20) Glucose (70-99) mg/dl POC Glucose 156 H 307 H* (70-99) Calcium (8.5-10.1) mg/dl Phosphorus (2.5-4.9) mg/dl Magnesium (1.8-2.4) mg/dl Total Bilirubin (0.2-1) mg/dl Direct Bilirubin (0-0.2) mg/dl AST (15-37) U/L ALT (12-78) U/L Alkaline Phosphatase (45-117) U/L Total Protein (6.4-8.2) gm/dl Albumin (3.4-5.0) gm/dl Beta-Hydroxybutyric Acd (0.2-2.81) mg/dl Fluid Neutrophils % % Fluid Lymphocytes % % Fluid Eosinophils % % Fluid Basophils % % Fluid Meso/Macro/[place] % % Peritoneal Color Peritoneal Appearance Peritoneal WBC (0-300) /ul Peritoneal RBC /uL Peritoneal Tot Protein g/dl Peritoneal Albumin g/dl Nasal Screen MRSA (PCR) (Negative) Hep Bs Antigen Neg (Neg) Hep Bs Antibody Immune Hep Bs Antibody, Quant 18.27 (>or=10mIU/mL Immune) mIU/mL 05/28/19 05/28/19 05/27/19 Range/Units 03:29 03:29 23:43 WBC 10.33 (4.8-10.8) K/uL RBC 3.43 L (4.7-6.1) M/uL Hgb 10.5 L (14.0-18.0) g/dL Hct 29.8 L (42-52) % MCV 86.9 (80-100) fL MCH 30.6 (25-34) pg MCHC 35.2 (32-36) g/dL RDW Std Deviation 46.3 (36.4-46.3) fL RDW Coeff of Rebecca 14.7 H (11.5-14.5) % Plt Count 187 (130-400) K/uL MPV 8.2 (7.4-10.4) fL Immature Gran % (Auto) 0.2 % Neut % (Auto) 62.3 % Lymph % (Auto) 26.6 % [place] % (Auto) 10.4 % Eos % (Auto) 0.3 % Baso % (Auto) 0.2 % Immature Gran # (Auto) 0.02 (0.00-0.02) K/uL Neut # (Auto) 6.44 (1.4-6.5) K/uL Lymph # (Auto) 2.75 (1.2-3.4) K/uL [place] # (Auto) 1.07 H (0.11-0.59) K/uL Eos # (Auto) 0.03 (0-0.5) K/uL Baso # (Auto) 0.02 (0-0.2) K/uL VBG pH 7.43 H (7.36-7.41) VBG pCO2 39 (38-50) mmHg VBG pO2 55 mmHg VBG HCO3 25 mmol/L VBG O2 Saturation 88.3 % VBG Base Excess 0.7 mEq/L Barometric Pressure 737.1 mm/Hg Sodium 132 L (136-145) mmol/L Potassium 3.3 L (3.5-5.1) mmol/L Chloride 97 L (98-107) mmol/L Carbon Dioxide 26 (21-32) mmol/L Anion Gap 9.0 (3-11) BUN 49 H (7-18) mg/dl Creatinine 7.43 H* (0.6-1.4) mg/dl Est Cr Clr Drug Dosing 13.1 ml/min Est GFR ( Amer) 10.0 Est GFR (Non-Af Amer) 8.6 BUN/Creatinine Ratio 6.7 L (10-20) Glucose 309 H* (70-99) mg/dl POC Glucose (70-99) Calcium 8.1 L (8.5-10.1) mg/dl Phosphorus 5.4 H (2.5-4.9) mg/dl Magnesium 1.9 (1.8-2.4) mg/dl Total Bilirubin 0.3 (0.2-1) mg/dl Direct Bilirubin < 0.1 (0-0.2) mg/dl AST 13 L (15-37) U/L ALT 24 (12-78) U/L Alkaline Phosphatase 89 (45-117) U/L Total Protein 5.4 L D (6.4-8.2) gm/dl Albumin 2.0 L (3.4-5.0) gm/dl Beta-Hydroxybutyric Acd 0.55 (0.2-2.81) mg/dl Fluid Neutrophils % % Fluid Lymphocytes % % Fluid Eosinophils % % Fluid Basophils % % Fluid Meso/Macro/Lafayette % % Peritoneal Color Peritoneal Appearance Peritoneal WBC (0-300) /ul Peritoneal RBC /uL Peritoneal Tot Protein g/dl Peritoneal Albumin g/dl Nasal Screen MRSA (PCR) (Negative) Hep Bs Antigen (Neg) Hep Bs Antibody Hep Bs Antibody, Quant (>or=10mIU/mL Immune) mIU/mL 05/27/19 05/27/19 05/27/19 Range/Units 23:43 20:30 20:22 WBC (4.8-10.8) K/uL RBC (4.7-6.1) M/uL Hgb (14.0-18.0) g/dL Hct (42-52) % MCV (80-100) fL MCH (25-34) pg MCHC (32-36) g/dL RDW Std Deviation (36.4-46.3) fL RDW Coeff of Rebecca (11.5-14.5) % Plt Count (130-400) K/uL MPV (7.4-10.4) fL Immature Gran % (Auto) % Neut % (Auto) % Lymph % (Auto) % [place] % (Auto) % Eos % (Auto) % Baso % (Auto) % Immature Gran # (Auto) (0.00-0.02) K/uL Neut # (Auto) (1.4-6.5) K/uL Lymph # (Auto) (1.2-3.4) K/uL [place] # (Auto) (0.11-0.59) K/uL Eos # (Auto) (0-0.5) K/uL Baso # (Auto) (0-0.2) K/uL VBG pH 7.46 H (7.36-7.41) VBG pCO2 35 L (38-50) mmHg VBG pO2 71 mmHg VBG HCO3 25 mmol/L VBG O2 Saturation 94.7 % VBG Base Excess 1.2 mEq/L Barometric Pressure 735.1 mm/Hg Sodium 132 L (136-145) mmol/L Potassium 3.6 (3.5-5.1) mmol/L Chloride 96 L (98-107) mmol/L Carbon Dioxide 25 (21-32) mmol/L Anion Gap 11.0 (3-11) BUN 51 H (7-18) mg/dl Creatinine 7.53 H* (0.6-1.4) mg/dl Est Cr Clr Drug Dosing 12.9 ml/min Est GFR ( Amer) 9.8 Est GFR (Non-Af Amer) 8.5 BUN/Creatinine Ratio 6.8 L (10-20) Glucose 368 H* (70-99) mg/dl POC Glucose 280 H (70-99) Calcium 8.0 L (8.5-10.1) mg/dl Phosphorus (2.5-4.9) mg/dl Magnesium (1.8-2.4) mg/dl Total Bilirubin (0.2-1) mg/dl Direct Bilirubin (0-0.2) mg/dl AST (15-37) U/L ALT (12-78) U/L Alkaline Phosphatase (45-117) U/L Total Protein (6.4-8.2) gm/dl Albumin (3.4-5.0) gm/dl Beta-Hydroxybutyric Acd 0.85 (0.2-2.81) mg/dl Fluid Neutrophils % % Fluid Lymphocytes % % Fluid Eosinophils % % Fluid Basophils % % Fluid Meso/Macro/Lafayette % % Peritoneal Color Peritoneal Appearance Peritoneal WBC (0-300) /ul Peritoneal RBC /uL Peritoneal Tot Protein g/dl Peritoneal Albumin g/dl Nasal Screen MRSA (PCR) (Negative) Hep Bs Antigen (Neg) Hep Bs Antibody Hep Bs Antibody, Quant (>or=10mIU/mL Immune) mIU/mL 05/27/19 05/27/19 Range/Units 20:22 10:05 WBC (4.8-10.8) K/uL RBC (4.7-6.1) M/uL Hgb (14.0-18.0) g/dL Hct (42-52) % MCV (80-100) fL MCH (25-34) pg MCHC (32-36) g/dL RDW Std Deviation (36.4-46.3) fL RDW Coeff of Rebecca (11.5-14.5) % Plt Count (130-400) K/uL MPV (7.4-10.4) fL Immature Gran % (Auto) % Neut % (Auto) % Lymph % (Auto) % [place] % (Auto) % Eos % (Auto) % Baso % (Auto) % Immature Gran # (Auto) (0.00-0.02) K/uL Neut # (Auto) (1.4-6.5) K/uL Lymph # (Auto) (1.2-3.4) K/uL [place] # (Auto) (0.11-0.59) K/uL Eos # (Auto) (0-0.5) K/uL Baso # (Auto) (0-0.2) K/uL VBG pH (7.36-7.41) VBG pCO2 (38-50) mmHg VBG pO2 mmHg VBG HCO3 mmol/L VBG O2 Saturation % VBG Base Excess mEq/L Barometric Pressure mm/Hg Sodium 131 L (136-145) mmol/L Potassium 3.8 (3.5-5.1) mmol/L Chloride 96 L (98-107) mmol/L Carbon Dioxide 24 (21-32) mmol/L Anion Gap 11.0 (3-11) BUN 57 H (7-18) mg/dl Creatinine 7.44 H* (0.6-1.4) mg/dl Est Cr Clr Drug Dosing 13.1 ml/min Est GFR ( Amer) 9.9 Est GFR (Non-Af Amer) 8.6 BUN/Creatinine Ratio 7.6 L (10-20) Glucose 289 H (70-99) mg/dl POC Glucose (70-99) Calcium 8.5 (8.5-10.1) mg/dl Phosphorus (2.5-4.9) mg/dl Magnesium (1.8-2.4) mg/dl Total Bilirubin (0.2-1) mg/dl Direct Bilirubin (0-0.2) mg/dl AST (15-37) U/L ALT (12-78) U/L Alkaline Phosphatase (45-117) U/L Total Protein (6.4-8.2) gm/dl Albumin (3.4-5.0) gm/dl Beta-Hydroxybutyric Acd (0.2-2.81) mg/dl Fluid Neutrophils % % Fluid Lymphocytes % % Fluid Eosinophils % % Fluid Basophils % % Fluid Meso/Macro/[place] % % Peritoneal Color Peritoneal Appearance Peritoneal WBC (0-300) /ul Peritoneal RBC /uL Peritoneal Tot Protein g/dl Peritoneal Albumin g/dl Nasal Screen MRSA (PCR) Negative (Negative) Hep Bs Antigen (Neg) Hep Bs Antibody Hep Bs Antibody, Quant (>or=10mIU/mL Immune) mIU/mL Diagnostic Findings MRI brain: MRI OF THE BRAIN WITHOUT IV CONTRAST CLINICAL HISTORY: Seizure. COMPARISON STUDY: CT of the brain performed the same day 05/27/2019. TECHNIQUE: MRI of the brain was performed utilizing various T1 and T2-weighted sequences in the axial, sagittal, and coronal planes. IV contrast was not administered for this examination. The examination is performed using the seizure protocol. FINDINGS: Brain parenchyma: The brain parenchyma is normal in appearance. There is no hemorrhage or mass effect. There is no restricted diffusion to suggest acute ischemia. Brannon-white matter differentiation is preserved. No extra-axial fluid collection is seen. The cerebellar tonsils are normal in configuration. The hippocampi are normal and symmetric. Ventricles, sulci, and cisterns: Normal in configuration. Pituitary and sella: Unremarkable. Intracranial vasculature: Normal flow voids are maintained at the skull base. Orbits: The bony orbits are grossly intact. Orbital contents are normal in appearance. Sinuses and mastoids: Clear. Calvarium: Unremarkable. Cervical cord: Partially visualized cervical spinal cord is normal in morphology and signal intensity. IMPRESSION: No acute intracranial abnormality. PG Care Time/CCT Total # of Minutes Spent Total Time Spent with Patient: Total time spent is greater than 50% in coordination of care (as documented) at patient's floor/unit and/or counseling patient: (1) Diabetes mellitus type I Chronic kidney disease stage: on chronic dialysis Diabetes mellitus complication detail: with chronic kidney disease Diabetes mellitus complication status: with kidney complications Qualified Code(s): E10.22 - Type 1 diabetes mellitus with diabetic chronic kidney disease; N18.6 - End stage renal disease; Z99.2 - Dependence on renal dialysis (2) Anemia Anemia type: iron deficiency (3) Hypertension Hypertension type: essential hypertension Qualified Code(s): I10 - Essential (primary) hypertension
[2019-05-28] MEDS ORDERED: LABETALOL HCL IV 5 MG/ML 20ML IV STA (11:10)
[2019-05-28 11:21] LABS: Albumin Peritoneal Fluid < 0.6 g/dl; Total Protein Peritoneal Fluid 0.2 g/dl
[2019-05-28 11:42] LABS: Appearance Peritoneal Fluid CLEAR; Basophils, Fluid 0 %; Color Peritoneal Fluid COLORLESS; Eosinophils, Fluid 0 %; Lymphocytes, Fluid 16 %; Mono,Macrophage,Mesothelial 80 %; Neutrophils, Fluid 4 %; RBC Peritoneal Fluid (A) < 3000 /uL; WBC Peritoneal Fluid (A) 13 /ul (0-300)
[2019-05-28 12:15] LABS: BUN Creatinine Ratio 6.4 (10-20); Calcium 8.6 mg/dl (8.5-10.1); Creatinine Clr Calc Pharmacy 11.9 ml/min; Est GFR (African American) 9.8; Est GFR (Non-African American) 8.5; Potassium 3.6 mmol/L (3.5-5.1)
--- NOTE | 2019-05-28 13:05 | Billing Data ---
Date of Service May 28, 2019 Coding Level of Care Code 43134 Subseq Hosp Care Lvl 3
[2019-05-28] MEDS: HydrALAZINE HCL 20 MG/ML VIAL IV PRN (13:32)
--- NOTE | 2019-05-28 13:56 | Pharmacy Report ---
Pharmacy Glycemic Short Note 2 - Date of Service May 28, 2019 - Glycemic Short BSG Results (Last 24 hours): 05/27/19 05/27/19 05/27/19 14:36 15:17 16:26 Glucose 369 H* POC Glucose 370 H* 335 H* 05/27/19 05/27/19 05/27/19 17:31 20:22 20:30 Glucose 289 H POC Glucose 349 H* 280 H 05/27/19 05/28/19 05/28/19 23:43 03:29 03:32 Glucose 368 H* 309 H* POC Glucose 307 H* 05/28/19 05/28/19 05/28/19 08:18 11:23 11:48 Glucose 188 H POC Glucose 156 H 188 H Outpatient Anti-diabetic Regimen: * Lantus 25 units SC HS * Humalog * A1c = 10.7 % on 05/27/19 The patient is currently receiving: * Lantus 19 units yesterday * Bolus insulin * NovoLog per scale ACHS with two overnight checks * Goal Range: Low 120 mg/dL - High 160 mg/dL * Correction Factor: 35 mg/dL/unit * Nutritional / Prandial insulin per carb ratio of 1 unit per 15 grams CHO consumed Risk Factors for Insulin Resistance: * Diet: T1DM ASSESSMENT: * 33 yo M with T1DM known to our glycemic service admitted with seizure associated with hyperglycemia and/or HTN. Unclear if PM dose of home Lantus was administered prior to arrival * Persistently elevated BSG's yesterday, likely 2nd basal deficiency which has now likely been corrected * Will order Lantus at slightly lower dose for 0900 today and plan for admin at 0200 tomorrow to help facilitate transition back to HS dosing as an outpatient PLAN FOR INPATIENT GLYCEMIC CONTROL: * Basal insulin * Lantus 18 units SQ @ 0900 today. 15-22 units tomorrow @ 0200 depending on BSG. Anticipate HS dosing starting tomorrow night. * Bolus insulin * NovoLog per scale ACHS with one overnight check * Goal Range: Low 120 mg/dL - High 160 mg/dL * Correction Factor: 35 mg/dL/unit * Nutritional / Prandial insulin per carb ratio of 1 unit per 15 grams CHO consumed
--- NOTE | 2019-05-28 16:24 | Nephrology Progress Note ---
Date of Service May 28, 2019 Assessment & Plan (1) Hypertensive crisis: improving/resolved. d/t seizures, N/V may be hypertensive encephalopathy. Head CT wnl; ECG unchanged from prior, CXR clear; brain MRI ON wnl; on cardene gtt only about 1h >>>goal SBP 150-160s currently -put hold parameter on bp meds >> irbesartan on hold -could also if needed use enalaprilat 1.25 mg IV prn SBP > 160 q4h (2) End stage renal disease on dialysis due to type 1 diabetes mellitus: -plan routine PD this evening>13 hrs w/ 2L x 6 exchs all 2.5% -given ongoing n/v, obtained PD fluid studies >> these are negative for infection (3) Hyperglycemia: -better controlled today in 150-300s Subjective seen on rounds this am 0745; bp much better controlled; PD uneventful ON; when I saw him campos and n/v had resolved; latter resumed later in AM Review of Systems Review of Systems: All systems reviewed & are unremarkable except as noted in HPI & below Gastrointestinal: + early satiety, + nausea and + vomiting; no abdominal pain, no change in bowel habits and no diarrhea/loose stools Physical Exam 2 Constitutional: well developed and well nourished; no acute distress (resting comfortably flat on RA) Eyes: EOM intact bilaterally ENMT: Ears: no external ear abnormality Nose: no external nose abnormality Mouth: + dry oral mucous membranes Neck: no nuchal rigidity Respiratory: normal respiratory effort Auscultation: lungs clear to auscultation bilaterally and + diminished lung sounds Cardiovascular: RRR, no murmur, no edema Gastrointestinal (Abdomen): Inspection/Auscultation: normal bowel sounds Percussion/Palpation: abdomen soft; abdomen nontender Musculoskeletal: Extremities: strength 5/5 throughout Skin: no rashes, warm and dry Neurologic: moves all extremities and awake; not confused and not obtunded Speech / Cognition: normal speech Psychiatric: Orientation: oriented x 3 (tired but appropriate) Results & Data Vital Signs (Past 12 Hours) Vital Signs Temp Pulse Pulse Pulse Pulse Resp BP 05/28/19 15:42 36.8 C 79 20 05/28/19 13:31 102 H 05/28/19 11:50 36.9 C 77 18 05/28/19 11:24 75 14 182/111 H 05/28/19 11:09 76 5 L 206/126 H 05/28/19 10:54 76 18 177/115 H 05/28/19 10:34 77 9 L 204/113 H 05/28/19 10:26 76 14 205/117 H 05/28/19 10:23 77 16 204/125 H 05/28/19 10:19 76 9 L 191/115 H 05/28/19 09:50 37.1 C 72 14 05/28/19 09:19 71 16 160/98 H 05/28/19 08:19 36.8 C 68 14 145/89 H 05/28/19 07:19 67 12 129/75 05/28/19 06:19 71 11 L 128/71 05/28/19 05:19 73 18 133/61 05/28/19 04:19 37.1 C 75 15 142/70 H BP Pulse Ox 05/28/19 15:42 135/85 96 05/28/19 13:31 160/102 H 05/28/19 11:50 197/106 H 97 05/28/19 11:24 98 05/28/19 11:09 99 05/28/19 10:54 100 05/28/19 10:34 100 05/28/19 10:26 98 05/28/19 10:23 99 05/28/19 10:19 99 05/28/19 09:50 05/28/19 09:19 98 05/28/19 08:19 100 05/28/19 07:19 98 05/28/19 06:19 97 05/28/19 05:19 97 05/28/19 04:19 98 Laboratory Results 05/28/19 03:29 05/28/19 11:23
[2019-05-28] MEDS: METOPROLOL SUCC 50MG EXT REL TAB PO SCH (20:59)
[2019-05-29] MEDS ORDERED: INSULIN GLARGINE SOLOSTAR 100 UNITS/ML 3 ML PEN SC ONE ×4 (02:00→21:00)
[2019-05-29] MEDS ORDERED: INSULIN ASPART 100 UNITS/ML 3 ML PEN SC ONE (02:00)
[2019-05-29] MEDS: CHECK CLONIDINE PATCH PLACEMENT SCH ×3 (02:18→15:58)
[2019-05-29 07:46] LABS: Basophils # (auto) 0.02 K/uL (0-0.2); Basophils % (auto) 0.3 %; Eosinophils # (auto) 0.22 K/uL (0-0.5); Eosinophils % (auto) 3.3 %; Hematocrit (blood only) 30.2 % (42-52); Hemoglobin 10.2 g/dL (14.0-18.0); Immature Granulocytes # (auto) 0.02 K/uL (0.00-0.02); Immature Granulocytes % (auto) 0.3 %; Lymphocytes % (auto) 49.7 %; Mean Corpuscular Hgb Conc 33.8 g/dL (32-36); Mean Corpuscular Volume 88.8 fL (80-100); Mean Platelet Volume 9.3 fL (7.4-10.4); Monocytes # (auto) 0.63 K/uL (0.11-0.59); Monocytes % (auto) 9.5 %; Neutrophils # (auto) 2.45 K/uL (1.4-6.5); Neutrophils % (auto) 36.9 %; Platelet Count 212 K/uL (130-400); RDW Coefficient of Variation 15.1 % (11.5-14.5); RDW Standard Deviation 49.3 fL (36.4-46.3); White Blood Count 6.64 K/uL (4.8-10.8)
[2019-05-29] MEDS: CALCIUM ACETATE 667 MG CAP PO SCH ×3 (07:53→16:42)
[2019-05-29] MEDS: INSULIN ASPART 100 UNITS/ML 3 ML PEN SC SCH ×3 (07:55→17:23)
[2019-05-29] MEDS: LABETALOL HCL IV 5 MG/ML 20ML IV PRN (08:00)
[2019-05-29 08:41] LABS: Calcium 8.5 mg/dl (8.5-10.1); Creatinine Clr Calc Pharmacy 11.5 ml/min; Est GFR (African American) 9.3; Est GFR (Non-African American) 8.1; Potassium 3.7 mmol/L (3.5-5.1)
[2019-05-29 08:56] LABS: Beta-Hydroxybutyrate 0.54 mg/dl (0.2-2.81)
[2019-05-29] MEDS: METHADONE HCL 10 MG TAB PO SCH (09:06)
[2019-05-29] MEDS: clonazePAM 0.5 MG TAB PO SCH ×2 (09:06→21:55)
[2019-05-29] MEDS: METHADONE HCL 5 MG TAB PO SCH (09:06)
[2019-05-29] MEDS: NEPHROCAPS PO SCH (09:07)
[2019-05-29] MEDS: HydrALAZINE HCL 20 MG/ML VIAL IV PRN (09:07)
[2019-05-29] MEDS ORDERED: IRBESARTAN 150 MG TAB PO SCH (09:15)
[2019-05-29] MEDS ORDERED: METOPROLOL SUCC 25MG EXT REL TAB PO SCH (09:30)
--- NOTE | 2019-05-29 12:15 | Pharmacy Report ---
Pharmacy Glycemic Short Note 2 - Date of Service May 29, 2019 - Glycemic Short BSG Results (Last 24 hours): 05/28/19 05/28/19 05/28/19 11:23 16:22 20:36 Glucose 188 H POC Glucose 290 H 135 H 05/29/19 05/29/19 05/29/19 02:07 07:17 07:20 Glucose 367 H* POC Glucose 242 H 401 H* 05/29/19 05/29/19 07:21 11:33 Glucose POC Glucose 358 H* 173 H Outpatient Anti-diabetic Regimen: * Lantus 25 units SC HS * Humalog * A1c = 10.7 % on 05/27/19 The patient is currently receiving: * Lantus 19 units yesterday * Bolus insulin * NovoLog per scale ACHS with two overnight checks * Goal Range: Low 120 mg/dL - High 160 mg/dL * Correction Factor: 35 mg/dL/unit * Nutritional / Prandial insulin per carb ratio of 1 unit per 15 grams CHO consumed Risk Factors for Insulin Resistance: * Diet: T1DM ASSESSMENT: 05/29 * Patient received 38 units of insulin yesterday; 18 of basal, 20 of prandial/correctional * BSGs ranged 235-305 * Fasting this morning 358- gave an additional 3 units this AM in addition to 0200 lantus dose of 22 units. Working on moving lantus from AM to 1900 with start of PD cycle how patient would take at home. Patient has had hypoglycemic events overnight on previous admissions, therefore as we are moving lantus to HS, will loosen correctional/carb coverage at HS and add overnight check * Lunch BSG improved 173 today- will continue current correction/carb ratio with meals as this seems appropriate for now 05/28 * 33 yo M with T1DM known to our glycemic service admitted with seizure associated with hyperglycemia and/or HTN. Unclear if PM dose of home Lantus was administered prior to arrival * Persistently elevated BSG's yesterday, likely 2nd basal deficiency which has now likely been corrected * Will order Lantus at slightly lower dose for 0900 today and plan for admin at 0200 tomorrow to help facilitate transition back to HS dosing as an outpatient PLAN FOR INPATIENT GLYCEMIC CONTROL: * Basal insulin * Lantus 23 units tonight * Bolus insulin * NovoLog per scale ACHS with one overnight check * Goal Range: Low 120 mg/dL - High 160 mg/dL * Correction Factor: 35 mg/dL/unit AC; 70 mg/dL/unit HS * Nutritional / Prandial insulin per carb ratio of 1 unit per 15 grams CHO consumed AC; 1 unit per 20 grams CHO consumed HS
[2019-05-29] MEDS ORDERED: GLUCAGON FOR INJ 1 MG VIAL IM PRN (16:00)
[2019-05-29] MEDS ORDERED: GLUCOSE 10 TABS/TUBE PO PRN (16:00)
[2019-05-29] MEDS ORDERED: GLUCOSE 40% GEL 15 GM TUBE PO PRN (16:00)
[2019-05-29] MEDS ORDERED: DEXTROSE 50% 50 ML SYRINGE IV PRN (16:00)
[2019-05-29] MEDS ORDERED: CARBOHYDRATES FOR HYPOGLYCEMIA PO PRN (16:00)
--- NOTE | 2019-05-29 16:14 | Nephrology Progress Note ---
Date of Service May 29, 2019 Assessment & Plan (1) Hypertensive urgency: improved yesterday, worse today. at hospital presentation w/ seizures, N/V concerning for hypertensive encephalopathy. Head CT wnl; ECG unchanged from prior, CXR clear; brain MRI ON wnl; on cardene gtt only about 1h >>>goal SBP 140-150s -resume irbesartan but at higher dose 300 mg daily -increased metoprolol frequency (LA) to 50 mg hs, 25 mg AM -d/w Dr Verde > agree w/ her plan possibly to increase clonidine patch -could also if needed use enalaprilat 1.25 mg IV prn SBP > 160 q4h -did also place him on FR 1.5L/day and on dialysis diet in addition to diabetic one Present on Admission?: Yes (2) End stage renal disease on dialysis due to type 1 diabetes mellitus: spoke w/ pt's OP dialysis nurse Sandy High; pt has not been to PD clinic since March, has not been returning phone calls. clinic preparing second formal letter listing their concerns w/ his nonadherence. PD nurse will be in clinic on >> 8A-2PM >> he could be seen then; otherwise would need to report to PD clinic on 06/11/19 and would need to be in touch w/ covering social work at clinic about arrnaging transportation -had peritonitis tx'd as OP 03/17. -OP rx is 5 fills 2L w/ 90 min dwell and LBF 2 L -plan routine PD this evening>13 hrs w/ 2L x 6 exchs all 2.5% -given ongoing n/v, obtained PD fluid studies >> these are negative for infecti on Present on Admission?: Yes (3) Hyperglycemia: -per primary service; running today in 300s Present on Admission?: Yes (4) Anemia: as OP to get 200 mg venofer monthly and 16K units epo q 2wks; anemia stable -will give epo today -will check t stn in am to determine need if any for venofer Present on Admission?: Yes Subjective sbp up again this am to 180s; no sx. ate full breakfast when I saw him this am 0800; no sob, no PAYNE, no confusion, no n/v (though often has this in am) Review of Systems Review of Systems: All systems reviewed & are unremarkable except as noted in HPI & below Physical Exam Constitutional: well developed and well nourished; no acute distress (resting on RA) Eyes: EOM intact bilaterally ENMT: Ears: no external ear abnormality Nose: no external nose abnormality Mouth: + dry oral mucous membranes Neck: no nuchal rigidity Respiratory: normal respiratory effort Auscultation: lungs clear to auscultation bilaterally and + diminished lung sounds Cardiovascular: RRR, no murmur, no edema Gastrointestinal (Abdomen): Inspection/Auscultation: normal bowel sounds Percussion/Palpation: abdomen soft; abdomen nontender Musculoskeletal: Extremities: strength 5/5 throughout Skin: no rashes, warm and dry Neurologic: moves all extremities and awake; not confused and not obtunded Speech / Cognition: normal speech Psychiatric: Orientation: oriented x 3 (tired but appropriate) Results & Data Vital Signs (Past 12 Hours) Vital Signs Temp Pulse Pulse Resp BP BP Pulse Ox 05/29/19 15:35 37.0 C 74 20 160/89 H 99 05/29/19 13:03 134/68 05/29/19 12:00 37.0 C 75 18 166/105 H 98 05/29/19 09:35 177/103 H 05/29/19 09:10 36.7 C 79 18 174/101 H 05/29/19 08:22 178/100 H 05/29/19 08:00 70 05/29/19 07:49 36.7 C 69 18 187/116 H 98 05/29/19 04:46 36.9 C 72 18 141/108 H 92 Laboratory Results 05/29/19 07:17 05/29/19 07:17
[2019-05-29] MEDS ORDERED: IRBESARTAN 150 MG TAB PO ONE (16:15)
--- NOTE | 2019-05-29 18:25 | Hospitalist Progress Note ---
Date of Service May 29, 2019 Assessment & Plan (1) Hypertensive crisis: Patient presented with hypertensive emergency and seizure, blood pressures were 238/122 on admission Required IV hydralazine, IV labetalol, Cardene drip, and home doses of metoprolol and continued clonidine patch to bring blood pressure under better control Was in ICU and then transferred out after 1 day MRI of the brain without evidence of PRES Blood pressures continue to be elevated requiring IV labetalol and IV hydralazine today -Add on Toprol-XL 25 mg in the morning and continue 50 mg at bedtime -Continue clonidine patch 0.2 mg -Restart irbesartan and increase to 300 mg once daily --Can give Vasotec as needed for SBP greater than 160 -Will restart home Bumex in the morning -Continue IV labetalol and IV hydralazine as needed -Continued stay for blood pressure management (2) Seizure: Patient with 2 witnessed seizures prior to arrival-his 9-year-old son was lying next to him in bed and felt him shaking. Has history of a couple of seizures always related to hypertensive emergency and hyperglycemia, currently not on any antiepileptic drugs. Suspect that seizures this admission and on a previous admission were precipitated by markedly elevated blood pressure and metabolic derangements in setting of elevated glucose and mild acidemia. No focal deficits on neurological exam. CT head negative for acute intracranial pathology. MRI of the brain negative for PRES or tumor or stroke -He had an EEG and was seen by neurology at [facility] on his recent admission there-patient thinks it was a similar episode in which he was not placed on antiepileptic drugs Seizure precautions Ativan 1 mg every 30 minutes as needed for seizure activity We will hold off on additional seizure medication at this time -No need for neurology consult at this point -No need for EEG (3) Hyperglycemia: With [facility], serum osmolality 312 on admission May have been precipitated by high dextrose content in diasylate fluid Blood sugar over 900 upon admission, patient with anion gap metabolic acidosis that closed quite quickly. Beta hydroxybutyric acid level normal at 0.72. pH only mildly acidotic on admission Treated initially with insulin drip and then transition to Lantus and NovoLog Glucose was 400 this morning and then 47 this afternoon-very labile Pharmacy is managing glycemic control-discussed with them-he received 25 units last night of Lantus, unclear why he dropped so low-correction factor lowered for at nighttime given previous nocturnal hypoglycemia Hemoglobin A1c uncontrolled at 10.7% but may be misinterpreted in the setting of dialysis -Continue frequent Accu-Cheks (4) Hypertension: As above (5) End stage renal disease on dialysis due to type 1 diabetes mellitus: Patient receives peritoneal dialysis at home. -Appreciate nephrology management -will have daily peritoneal dialysis here -Continue PhosLo -Follow BMP daily -Nephrology has reached out to the patient's home dialysis clinic and they reported that patient has not shown up for PD clinic in the last 2 months. They advised that he come on Thursday 05/31 between the hours of 8 AM and 2 PM to see the PD nurse and get labs. Otherwise, he could come on June 11 but would need to call to schedule a time. Apparently transportation is not an issue for the patient and getting to PD clinic. (6) Diabetes mellitus type I: As above, patient with type 1 diabetes and hyperglycemia/HHS. Overall poorly controlled with ESRD, diabetic retinopathy, gastroparesis Lantus and NovoLog as per pharmacy -We have arranged an appointment with [facility] endocrinology for him for after discharge (7) Anemia: Patient was stable normochromic/normocytic anemia. Most likely secondary to chronic disease as well as iron deficiency Continue Velphoro iron supplement Continue to monitor CBC -Checking iron studies in the morning -Epogen given today and may need Venofer tomorrow based on iron studies (8) Substance abuse: Remote history of substance abuse. Continue methadone 85 mg p.o. daily (9) Prolonged Q-T interval on ECG: QTc 499 on admission, likely secondary to methadone use -Avoid QT prolonging agents (10) Hypokalemia: Replaced with K riders and now resolved -Follow BMP in the morning (11) Peritoneal dialysis catheter in place: Noted as above (12) Gastroparesis: -Reglan as needed (13) Hepatitis C: Has not been treated in the past. Patient reports he was advised by kidney transplant team to not treat his hepatitis C so that he could potentially receive an infected donor kidney with hep C as a way to get a faster transplant. He would then receive treatment for hep C afterwards. (14) Headache: Now resolved, was secondary to hypertensive emergency (15) Anxiety: Continue clonazepam home dose twice daily (16) DVT prophylaxis: SCDs Disposition-continued stay on PCU for improved blood pressure control and glucose control Hopeful for discharge to home tomorrow Subjective Patient feeling fairly well today but has not been out of bed and walked around. Denies headache, no nausea or vomiting or abdominal pain. No chest pain or shortness of breath. I discussed the case with nephrology as well as pharmacy for glycemic management Blood pressures were significantly elevated again this morning requiring IV labetalol and IV hydralazine, they were slightly improved throughout the day, however his blood sugar dropped quite low in the afternoon. He is agreeable to staying overnight again for improved blood pressure and glucose control. Telemetry with normal sinus rhythm with rates in the 70s to 80s Review of Systems Review of Systems: All systems reviewed & are unremarkable except as noted in HPI & below Physical Exam Constitutional: average body habitus (Appears older than given age); no acute distress Eyes: + anicteric sclerae Neck: trachea midline, no thyromegaly Respiratory: normal respiratory effort, lungs clear to auscultation Cardiovascular: RRR, no murmur, no edema Chest (Breasts): Chest: normal inspection of chest Gastrointestinal (Abdomen): normal bowel sounds, soft, nontender, no hepatosplenomegaly Musculoskeletal: Extremities: extremities normal to inspection; no cyanosis and no clubbing Skin: no rashes, warm and dry Neurologic: moves all extremities and awake; no focal motor deficits Psychiatric: A+Ox3, euthymic affect Lymphatic: no lymphedema Results & Data Vital Signs (Past 12 Hours) Vital Signs Temp Pulse Pulse Resp BP BP Pulse Ox 05/29/19 15:35 37.0 C 74 20 160/89 H 99 05/29/19 13:03 134/68 05/29/19 12:00 37.0 C 75 18 166/105 H 98 05/29/19 09:35 177/103 H 05/29/19 09:10 36.7 C 79 18 174/101 H 05/29/19 08:22 178/100 H 05/29/19 08:00 70 05/29/19 07:49 36.7 C 69 18 187/116 H 98 Laboratory Results 05/29/19 05/29/19 05/29/19 Range/Units 16:39 16:16 16:14 WBC (4.8-10.8) K/uL RBC (4.7-6.1) M/uL Hgb (14.0-18.0) g/dL Hct (42-52) % MCV (80-100) fL MCH (25-34) pg MCHC (32-36) g/dL RDW Std Deviation (36.4-46.3) fL RDW Coeff of Rebecca (11.5-14.5) % Plt Count (130-400) K/uL MPV (7.4-10.4) fL Immature Gran % (Auto) % Neut % (Auto) % Lymph % (Auto) % [place] % (Auto) % Eos % (Auto) % Baso % (Auto) % Immature Gran # (Auto) (0.00-0.02) K/uL Neut # (Auto) (1.4-6.5) K/uL Lymph # (Auto) (1.2-3.4) K/uL [place] # (Auto) (0.11-0.59) K/uL Eos # (Auto) (0-0.5) K/uL Baso # (Auto) (0-0.2) K/uL Sodium (136-145) mmol/L Potassium (3.5-5.1) mmol/L Chloride (98-107) mmol/L Carbon Dioxide (21-32) mmol/L Anion Gap (3-11) BUN (7-18) mg/dl Creatinine (0.6-1.4) mg/dl Est Cr Clr Drug Dosing ml/min Est GFR ( Amer) Est GFR (Non-Af Amer) BUN/Creatinine Ratio (10-20) Glucose (70-99) mg/dl POC Glucose 132 H 55 L* 55 L* (70-99) Calcium (8.5-10.1) mg/dl Magnesium (1.8-2.4) mg/dl Beta-Hydroxybutyric Acd (0.2-2.81) mg/dl 05/29/19 05/29/19 05/29/19 Range/Units 15:52 15:50 15:33 WBC (4.8-10.8) K/uL RBC (4.7-6.1) M/uL Hgb (14.0-18.0) g/dL Hct (42-52) % MCV (80-100) fL MCH (25-34) pg MCHC (32-36) g/dL RDW Std Deviation (36.4-46.3) fL RDW Coeff of Rebecca (11.5-14.5) % Plt Count (130-400) K/uL MPV (7.4-10.4) fL Immature Gran % (Auto) % Neut % (Auto) % Lymph % (Auto) % [place] % (Auto) % Eos % (Auto) % Baso % (Auto) % Immature Gran # (Auto) (0.00-0.02) K/uL Neut # (Auto) (1.4-6.5) K/uL Lymph # (Auto) (1.2-3.4) K/uL [place] # (Auto) (0.11-0.59) K/uL Eos # (Auto) (0-0.5) K/uL Baso # (Auto) (0-0.2) K/uL Sodium (136-145) mmol/L Potassium (3.5-5.1) mmol/L Chloride (98-107) mmol/L Carbon Dioxide (21-32) mmol/L Anion Gap (3-11) BUN (7-18) mg/dl Creatinine (0.6-1.4) mg/dl Est Cr Clr Drug Dosing ml/min Est GFR ( Amer) Est GFR (Non-Af Amer) BUN/Creatinine Ratio (10-20) Glucose (70-99) mg/dl POC Glucose 47 L* 49 L* 63 L* (70-99) Calcium (8.5-10.1) mg/dl Magnesium (1.8-2.4) mg/dl Beta-Hydroxybutyric Acd (0.2-2.81) mg/dl 05/29/19 05/29/19 05/29/19 Range/Units 15:32 12:55 11:33 WBC (4.8-10.8) K/uL RBC (4.7-6.1) M/uL Hgb (14.0-18.0) g/dL Hct (42-52) % MCV (80-100) fL MCH (25-34) pg MCHC (32-36) g/dL RDW Std Deviation (36.4-46.3) fL RDW Coeff of Rebecca (11.5-14.5) % Plt Count (130-400) K/uL MPV (7.4-10.4) fL Immature Gran % (Auto) % Neut % (Auto) % Lymph % (Auto) % [place] % (Auto) % Eos % (Auto) % Baso % (Auto) % Immature Gran # (Auto) (0.00-0.02) K/uL Neut # (Auto) (1.4-6.5) K/uL Lymph # (Auto) (1.2-3.4) K/uL [place] # (Auto) (0.11-0.59) K/uL Eos # (Auto) (0-0.5) K/uL Baso # (Auto) (0-0.2) K/uL Sodium (136-145) mmol/L Potassium (3.5-5.1) mmol/L Chloride (98-107) mmol/L Carbon Dioxide (21-32) mmol/L Anion Gap (3-11) BUN (7-18) mg/dl Creatinine (0.6-1.4) mg/dl Est Cr Clr Drug Dosing ml/min Est GFR ( Amer) Est GFR (Non-Af Amer) BUN/Creatinine Ratio (10-20) Glucose (70-99) mg/dl POC Glucose 68 L* 153 H 173 H (70-99) Calcium (8.5-10.1) mg/dl Magnesium (1.8-2.4) mg/dl Beta-Hydroxybutyric Acd (0.2-2.81) mg/dl 05/29/19 05/29/19 05/29/19 Range/Units 07:21 07:20 07:17 WBC (4.8-10.8) K/uL RBC (4.7-6.1) M/uL Hgb (14.0-18.0) g/dL Hct (42-52) % MCV (80-100) fL MCH (25-34) pg MCHC (32-36) g/dL RDW Std Deviation (36.4-46.3) fL RDW Coeff of Rebecca (11.5-14.5) % Plt Count (130-400) K/uL MPV (7.4-10.4) fL Immature Gran % (Auto) % Neut % (Auto) % Lymph % (Auto) % [place] % (Auto) % Eos % (Auto) % Baso % (Auto) % Immature Gran # (Auto) (0.00-0.02) K/uL Neut # (Auto) (1.4-6.5) K/uL Lymph # (Auto) (1.2-3.4) K/uL [place] # (Auto) (0.11-0.59) K/uL Eos # (Auto) (0-0.5) K/uL Baso # (Auto) (0-0.2) K/uL Sodium 134 L (136-145) mmol/L Potassium 3.7 (3.5-5.1) mmol/L Chloride 98 (98-107) mmol/L Carbon Dioxide 27 (21-32) mmol/L Anion Gap 9.0 (3-11) BUN 47 H (7-18) mg/dl Creatinine 7.83 H* D (0.6-1.4) mg/dl Est Cr Clr Drug Dosing 11.5 ml/min Est GFR ( Amer) 9.3 Est GFR (Non-Af Amer) 8.1 BUN/Creatinine Ratio 6.0 L (10-20) Glucose 367 H* (70-99) mg/dl POC Glucose 358 H* 401 H* (70-99) Calcium 8.5 (8.5-10.1) mg/dl Magnesium 2.0 (1.8-2.4) mg/dl Beta-Hydroxybutyric Acd 0.54 (0.2-2.81) mg/dl 05/29/19 05/29/19 05/28/19 Range/Units 07:17 02:07 20:36 WBC 6.64 (4.8-10.8) K/uL RBC 3.40 L (4.7-6.1) M/uL Hgb 10.2 L (14.0-18.0) g/dL Hct 30.2 L (42-52) % MCV 88.8 (80-100) fL MCH 30.0 (25-34) pg MCHC 33.8 (32-36) g/dL RDW Std Deviation 49.3 H (36.4-46.3) fL RDW Coeff of Rebecca 15.1 H (11.5-14.5) % Plt Count 212 (130-400) K/uL MPV 9.3 (7.4-10.4) fL Immature Gran % (Auto) 0.3 % Neut % (Auto) 36.9 % Lymph % (Auto) 49.7 % [place] % (Auto) 9.5 % Eos % (Auto) 3.3 % Baso % (Auto) 0.3 % Immature Gran # (Auto) 0.02 (0.00-0.02) K/uL Neut # (Auto) 2.45 (1.4-6.5) K/uL Lymph # (Auto) 3.30 (1.2-3.4) K/uL [place] # (Auto) 0.63 H (0.11-0.59) K/uL Eos # (Auto) 0.22 (0-0.5) K/uL Baso # (Auto) 0.02 (0-0.2) K/uL Sodium (136-145) mmol/L Potassium (3.5-5.1) mmol/L Chloride (98-107) mmol/L Carbon Dioxide (21-32) mmol/L Anion Gap (3-11) BUN (7-18) mg/dl Creatinine (0.6-1.4) mg/dl Est Cr Clr Drug Dosing ml/min Est GFR ( Amer) Est GFR (Non-Af Amer) BUN/Creatinine Ratio (10-20) Glucose (70-99) mg/dl POC Glucose 242 H 135 H (70-99) Calcium (8.5-10.1) mg/dl Magnesium (1.8-2.4) mg/dl Beta-Hydroxybutyric Acd (0.2-2.81) mg/dl PG Care Time/CCT Total # of Minutes Spent Total Time Spent with Patient: Total time spent is greater than 50% in coordination of care (as documented) at patient's floor/unit and/or counseling patient: (1) Hypertension Hypertension type: essential hypertension Qualified Code(s): I10 - Essential (primary) hypertension (2) Diabetes mellitus type I Diabetes mellitus complication status: with kidney complications Diabetes mellitus complication detail: with chronic kidney disease Chronic kidney disease stage: on chronic dialysis Qualified Code(s): E10.22 - Type 1 diabetes mellitus with diabetic chronic kidney disease; N18.6 - End stage renal disease; Z99.2 - Dependence on renal dialysis (3) Anemia Anemia type: iron deficiency
[2019-05-29] MEDS ORDERED: EPOETIN ALFA 20,000 UNITS/ML VIAL SQ ONE (20:00)
[2019-05-29] MEDS ORDERED: INSULIN ASPART 100 UNITS/ML 3 ML PEN SC SCH (21:00)
[2019-05-29] MEDS: METOPROLOL SUCC 50MG EXT REL TAB PO SCH (21:56)
[2019-05-30] MEDS ORDERED: INSULIN ASPART 100 UNITS/ML 3 ML PEN SC SCH (02:00)
[2019-05-30] MEDS: LABETALOL HCL IV 5 MG/ML 20ML IV PRN ×2 (03:13→20:42)
[2019-05-30 07:25] LABS: Basophils # (auto) 0.01 K/uL (0-0.2); Basophils % (auto) 0.1 %; Eosinophils # (auto) 0.25 K/uL (0-0.5); Eosinophils % (auto) 3.4 %; Hematocrit (blood only) 31.3 % (42-52); Hemoglobin 10.3 g/dL (14.0-18.0); Immature Granulocytes # (auto) 0.02 K/uL (0.00-0.02); Immature Granulocytes % (auto) 0.3 %; Lymphocytes # (auto) 3.39 K/uL (1.2-3.4); Lymphocytes % (auto) 45.5 %; Mean Corpuscular Hemoglobin 29.3 pg (25-34); Mean Corpuscular Hgb Conc 32.9 g/dL (32-36); Mean Corpuscular Volume 89.2 fL (80-100); Mean Platelet Volume 9.1 fL (7.4-10.4); Monocytes # (auto) 0.79 K/uL (0.11-0.59); Monocytes % (auto) 10.6 %; Neutrophils # (auto) 2.99 K/uL (1.4-6.5); Neutrophils % (auto) 40.1 %; Platelet Count 228 K/uL (130-400); RDW Coefficient of Variation 14.9 % (11.5-14.5); RDW Standard Deviation 48.5 fL (36.4-46.3); Red Blood Count 3.51 M/uL (4.7-6.1); White Blood Count 7.45 K/uL (4.8-10.8)
[2019-05-30 08:03] LABS: BUN Creatinine Ratio 6.4 (10-20); Calcium 8.1 mg/dl (8.5-10.1); Creatinine Clr Calc Pharmacy 12.3 ml/min; Est GFR (African American) 9.2; Potassium 3.6 mmol/L (3.5-5.1)
[2019-05-30] MEDS: NEPHROCAPS PO SCH (08:40)
[2019-05-30] MEDS: IRBESARTAN 150 MG TAB PO SCH (08:40)
[2019-05-30] MEDS: BUMETANIDE 1 MG TAB PO SCH (08:40)
[2019-05-30] MEDS: CALCIUM ACETATE 667 MG CAP PO SCH ×3 (08:41→17:18)
[2019-05-30] MEDS: CHECK CLONIDINE PATCH PLACEMENT SCH ×3 (08:43→15:28)
[2019-05-30] MEDS: METOPROLOL SUCC 50MG EXT REL TAB PO SCH ×2 (08:43→20:31)
[2019-05-30 08:46] LABS: Beta-Hydroxybutyrate 0.67 mg/dl (0.2-2.81)
[2019-05-30] MEDS: INSULIN ASPART 100 UNITS/ML 3 ML PEN SC SCH ×4 (08:47→21:00)
[2019-05-30] MEDS: METHADONE HCL 10 MG TAB PO SCH (09:02)
[2019-05-30] MEDS: METHADONE HCL 5 MG TAB PO SCH (09:02)
[2019-05-30] MEDS: clonazePAM 0.5 MG TAB PO SCH ×2 (09:02→20:31)
[2019-05-30] MEDS: HydrALAZINE HCL 20 MG/ML VIAL IV PRN (10:41)
[2019-05-30] MEDS: ACETAMINOPHEN 325 MG TAB PO PRN (11:43)
[2019-05-30] MEDS: HydrALAZINE TAB 50 MG TAB PO SCH ×2 (11:43→20:31)
--- NOTE | 2019-05-30 12:14 | Nephrology Progress Note ---
Date of Service May 30, 2019 Assessment & Plan (1) Hypertensive urgency: improved yesterday, worse today. at hospital presentation w/ seizures, N/V concerning for hypertensive encephalopathy. Head CT wnl; ECG unchanged from prior, CXR clear; brain MRI ON wnl; on cardene gtt only about 1h >>>goal SBP 150-170s today -resume irbesartan higher dose 300 mg daily -increased metoprolol frequency (LA) to 50 mg bid -d/w Dr Verde > agree w/ her plan possibly to increase clonidine patch -could also if needed use enalaprilat 1.25 mg IV prn SBP > 160 q4h -started hydralazine po -continue iv hydralazine as well prn >>>>will try PD 2 exchanges w/ 4.25% which should remove more fluid and help bp; monitor BG and bp q1hr on these exchs -cont FR 1.5L/day and on dialysis diet in addition to diabetic one Present on Admission?: Yes (2) End stage renal disease on dialysis due to type 1 diabetes mellitus: spoke w/ pt's OP dialysis nurse Sandy High; pt has not been to PD clinic since March, has not been returning phone calls. clinic preparing second formal letter listing their concerns w/ his nonadherence. PD nurse will be in clinic on >> 8A-2PM >> he could be seen then; otherwise would need to report to PD clinic on 06/11/19 and would need to be in touch w/ covering social work at clinic about arrnaging transportation -had peritonitis tx'd as OP 03/17. -OP rx is 5 fills 2L w/ 90 min dwell and LBF 2 L -plan routine PD this evening>13 hrs w/ 2L x 6 exchs all 2.5% but may include 4.25% dwells if tolerates ones today -averages 1.5-2L UF w/ PD; got 1.1 off ON -given ongoing n/v, obtained PD fluid studies >> these are negative for infection (3) Hyperglycemia: -per primary service; running today in 300s<>50s (4) Anemia: as OP to get 200 mg venofer monthly and 16K units epo q 2wks; anemia stable -on 05/30 had 23378 units epo - t stn = 41%; no venofer needed Subjective bp rebounded to 200s systolic again and bg w/ ongoing lability; over 2L negative on admission so far; has PAYNE today; no N/V so far; no chest pain, sob, confusion Review of Systems Review of Systems: All systems reviewed & are unremarkable except as noted in HPI & below Physical Exam Constitutional: well developed, well nourished and + acute distress (moderate distress; on RA, worried) Eyes: EOM intact bilaterally ENMT: Ears: no external ear abnormality Nose: no external nose abnormality Mouth: + dry oral mucous membranes Neck: no nuchal rigidity Respiratory: normal respiratory effort Auscultation: lungs clear to auscultation bilaterally and + diminished lung sounds Cardiovascular: RRR, no murmur, no edema Gastrointestinal (Abdomen): Inspection/Auscultation: normal bowel sounds Percussion/Palpation: abdomen soft; abdomen nontender PD cath in place Musculoskeletal: Extremities: strength 5/5 throughout Skin: no rashes, warm and dry Neurologic: moves all extremities and awake; not confused and not obtunded Speech / Cognition: normal speech Psychiatric: Orientation: oriented x 3 (tired but appropriate) Results & Data Vital Signs (Past 12 Hours) Vital Signs Temp Pulse Resp BP BP Pulse Ox 05/30/19 11:31 36.9 C 75 18 163/97 H 98 05/30/19 11:00 218/105 H 205/119 H 05/30/19 07:28 36.9 C 76 18 175/102 H 97 05/30/19 03:52 164/92 H 05/30/19 03:05 36.9 C 72 17 180/105 H 97 05/30/19 03:00 192/108 H 05/30/19 00:19 37.0 C 71 17 143/77 H 96 Laboratory Results 05/30/19 06:35 05/30/19 06:35
[2019-05-30 13:36] LABS: 7-Aminoclonaz, Confirm 77 ng/mL (<25); Hydro-Alp Ur, GC/MS NEGATIVE ng/mL (<25); Hydroxyethylflurazepam, Conf NEGATIVE ng/mL (<50); Hydroxytriazolam NEGATIVE ng/mL (<50); Lorazepam, Ur GC/MS NEGATIVE ng/mL (<50); Methadone, Ur Metabolite 2810 ng/mL (<100); Nordiazepam, Confirm NEGATIVE ng/mL (<50); Oxazepam Ur, GC/MS NEGATIVE ng/mL (<50); Temazepam, Confirm NEGATIVE ng/mL (<50)
--- NOTE | 2019-05-30 14:34 | Pharmacy Report ---
Glycemic Control Progress Note - Date of Service May 30, 2019 - Scope Glycemic Pharmacist consulted for glycemic control to write orders per [facility] inpatient glycemic control protocol. - Objective Accuchecks BSG(last 24 hours):: 05/29/19 05/29/19 05/29/19 15:32 15:33 15:50 Glucose POC Glucose 68 L* 63 L* 49 L* 05/29/19 05/29/19 05/29/19 15:52 16:14 16:16 Glucose POC Glucose 47 L* 55 L* 55 L* 05/29/19 05/29/19 05/30/19 16:39 19:58 02:04 Glucose POC Glucose 132 H 249 H 369 H* 05/30/19 05/30/19 05/30/19 06:35 07:25 07:27 Glucose 307 H* POC Glucose 320 H* 306 H* 05/30/19 05/30/19 05/30/19 11:29 11:30 11:48 Glucose POC Glucose 52 L* 56 L* 57 L* 05/30/19 05/30/19 05/30/19 12:05 13:04 13:28 Glucose POC Glucose 86 115 H 129 H 05/30/19 14:03 Glucose POC Glucose 178 H HbA1c:: Hemoglobin A1c 10.7 % (4.5-5.6) H 05/27/19 04:23 - Recent Pertinent Medications The patient is currently receiving: * Basal insulin: Lantus 22 UNITS AT 0200 THEN 3 UNITS AT 0900 THEN 27 UNITS AT 2100 (all on 05/29/19) * Correctional Insulin: Novolog Correction per scale ACHS Goal Range: Low 120 mg/dL - High 160 mg/dL Correction Factor: 35 mg/dL/unit * Prandial insulin: Per carb ratio of 1 unit per 15 grams CHO consumed - Outpatient Anti-Diabetic Meds Lantus 25 units HS plus Humalog - Assessment & Plan ASSESSMENT: * See progress note from 05/27/19 for more background info, in short: * Pt receiving SQ basal bolus insulin regimen for hyperglycemia secondary to baseline DM (outpatient regimen on hold). * Patient is currently receiving an average of 70 units of insulin per day * 52 units of basal insulin * 18 units of prandial/correctional insulin * BSGs ranging 49 - 358 mg/dl over the past 24hrs * Changes needed to insulin regimen: * AM Fasting BSG = 306 mg/dl. This is above goal range for patient based on inpatient targets and co-morbidities. The patient receives PD overnight. This explains the high fasting blood sugars. The patient's subsequent low blood sugars most likely result from combination of correction factor and carbohydrate ratio. Patient has fluctuating blood sugars. Originally, plan was to raise goal range to try to prevent "over" correcting hyperglycemia. This did not work as expected. Patient's lunch blood sugar was 52 mg/dL. * Pharmacy was notified that patient would receive additional PD session today with 4.25% dextrose. With fluctuating blood sugars and use of dextrose in PD fluids, it was thought that scheduled regular insulin, which would mimic an insulin pump, would be an appropriate option. With this option only CR would be provided. It appears that with basal and carbohydrate coverage correction factor may be too aggressive. This plan was discussed with the patient and he is in agreement. He was concerned about hyperglycemia with the extra dextrose in the dialysate, but I informed him that hourly blood checks would be done to catch this. PLAN FOR INPATIENT GLYCEMIC CONTROL: * Basal insulin * Regular insulin 4 units SQ [id number] (6 units if blood sugar over 180 mg/dL) * Bolus insulin * NovoLog per scale ACHS or Q6hrs while NPO * Goal Range: Low 140 mg/dL - High 180 mg/dL * Correction Factor: -- mg/dL/unit * Nutritional / Prandial insulin per carb ratio of 1 unit per 12 grams CHO consumed * Please note that the plan above was derived based on current level of insulin resistance and hospital stress. These recommendations are appropriate for inpatient admission only. Plan of care upon discharge will need to be reassessed to avoid potential outpatient hypo/hyperglycemia. Thank you.
[2019-05-30] MEDS: INSULIN HUMAN REGULAR SC SCH (17:23)
--- NOTE | 2019-05-30 19:16 | Hospitalist Progress Note ---
Date of Service May 30, 2019 Assessment & Plan (1) Hypertensive crisis: Patient presented with hypertensive emergency and seizure, blood pressures were 238/122 on admission Required IV hydralazine, IV labetalol, Cardene drip, and home doses of metoprolol and continued clonidine patch to bring blood pressure under better control Was in ICU and then transferred out after 1 day MRI of the brain without evidence of PRES Blood pressures continue to be elevated requiring IV hydralazine again today, although more of his pressures are under control been out of control -Increased Toprol-XL to 50 mg p.o. twice daily -Continue clonidine patch 0.2 mg -Continue increased dose of irbesartan 300 mg once daily -Nephrology added on hydralazine 50 mg p.o. twice daily --Can give Vasotec as needed for SBP greater than 160 -Continue Bumex 1 mg p.o. daily -Continue IV labetalol and IV hydralazine as needed -Continued stay for blood pressure management -Plan for extra daytime peritoneal dialysis today to remove more volume for better blood pressure control (2) Seizure: Patient with witnessed seizure prior to arrival-his 9-year-old son was lying next to him in bed and felt him shaking. Has history of a couple of seizures always related to hypertensive emergency and hyperglycemia, currently not on any antiepileptic drugs. Suspect that seizures this admission and on a previous admission were precipitated by markedly elevated blood pressure and metabolic derangements in setting of elevated glucose and mild acidemia. No focal deficits on neurological exam. CT head negative for acute intracranial pathology. MRI of the brain negative for PRES or tumor or stroke -He had an EEG and was seen by neurology at [facility] on his recent admission there-patient thinks it was a similar episode in which he was not placed on antiepileptic drugs Seizure precautions Ativan 1 mg every 30 minutes as needed for seizure activity We will hold off on additional seizure medication at this time -No need for neurology consult at this point -No need for EEG (3) Hyperglycemia: With HHS, serum osmolality 312 on admission May have been precipitated by high dextrose content in diasylate fluid Blood sugar over 900 upon admission, patient with anion gap metabolic acidosis that closed quite quickly. Beta hydroxybutyric acid level normal at 0.72. pH only mildly acidotic on admission Treated initially with insulin drip and then transition to Lantus and NovoLog Glucose readings continue to be quite labile-with hypoglycemia again today and hyperglycemia in the 300s Pharmacy is managing glycemic control-appreciate this complex management-now taking into consideration higher concentrate of dextrose and PD fluid during the daytime Hemoglobin A1c uncontrolled at 10.7% but may be misinterpreted in the setting of dialysis -Continue frequent Accu-Cheks (4) Hypertension: As above (5) End stage renal disease on dialysis due to type 1 diabetes mellitus: Patient receives peritoneal dialysis at home. -Appreciate nephrology management -will have daily peritoneal dialysis here -Continue PhosLo, Nephrocaps -Follow BMP daily -Nephrology has reached out to the patient's home dialysis clinic and they reported that patient has not shown up for PD clinic in the last 2 months. They advised that he come on Thursday 05/31 between the hours of 8 AM and 2 PM to see the PD nurse and get labs. Otherwise, he could come on June 11 but would need to call to schedule a time. Apparently transportation is not an issue for the patient and getting to PD clinic. (6) Diabetes mellitus type I: As above, patient with type 1 diabetes and hyperglycemia/HHS. Overall poorly controlled with ESRD, diabetic retinopathy, gastroparesis Lantus and NovoLog as per pharmacy -We have arranged an appointment with [facility] endocrinology for him for after discharge (7) Anemia: Patient was stable normochromic/normocytic anemia. Most likely secondary to chronic disease as well as iron deficiency Continue Velphoro iron supplement Continue to monitor CBC -Transferrin saturation here is high at 41%-no IV Venofer needed -Epogen given on 05/30 (8) Substance abuse: Remote history of substance abuse. Continue methadone 85 mg p.o. daily (9) Prolonged Q-T interval on ECG: QTc 499 on admission, likely secondary to methadone use -Avoid QT prolonging agents (10) Hypokalemia: Replaced with K riders and now resolved -Follow BMP in the morning (11) Peritoneal dialysis catheter in place: Noted as above (12) Gastroparesis: -Reglan as needed (13) Hepatitis C: Has not been treated in the past. Patient reports he was advised by kidney transplant team to not treat his hepatitis C so that he could potentially receive an infected donor kidney with hep C as a way to get a faster transplant. He would then receive treatment for hep C afterwards. (14) Headache: Was severe upon admission secondary to hypertensive emergency, then resolved Now with mild headache again likely due to continued elevated blood pressures -Tylenol as needed for pain -Controlling blood pressures as above (15) Anxiety: Continue clonazepam home dose twice daily (16) DVT prophylaxis: SCDs, add SQ heparin today given prolonged stay Disposition-continued stay on PCU for improved blood pressure control and glucose control Hopeful for discharge to home tomorrow if blood pressures and blood sugar under better control Subjective Patient had a mild headache this morning, no nausea or vomiting. Blood pressures remained quite elevated when I saw him at 205/115 checked both manually and with the machine in bilateral upper extremities. Discussed the case with nephrology today who is recommending extra daytime peritoneal dialysis to remove more volume. He also was hypoglycemic in the mid day and then hyperglycemic later in the day, thought to be related to higher dextrose solution dialysis fluid. He denies chest pain or shortness of breath, no abdominal pains. Telemetry with normal sinus rhythm with rates in 60s to 70s Review of Systems Review of Systems: All systems reviewed & are unremarkable except as noted in HPI & below Physical Exam Constitutional: average body habitus (Appears older than given age); no acute distress Eyes: + anicteric sclerae ENMT: external ear and nose normal, oropharynx normal (Edentulous) Neck: trachea midline, no thyromegaly Respiratory: normal respiratory effort, lungs clear to auscultation Cardiovascular: RRR, no murmur, no edema Chest (Breasts): Chest: normal inspection of chest Gastrointestinal (Abdomen): normal bowel sounds, soft, nontender, no hepat osplenomegaly Musculoskeletal: Extremities: extremities normal to inspection; no cyanosis and no clubbing Skin: no rashes, warm and dry Neurologic: moves all extremities and awake; no focal motor deficits Psychiatric: A+Ox3, euthymic affect Lymphatic: no lymphedema Results & Data Vital Signs (Past 12 Hours) Vital Signs Temp Pulse Pulse Pulse Resp BP BP 05/30/19 18:00 72 6 L 145/90 H 05/30/19 17:00 72 4 L 183/104 H 05/30/19 16:30 70 18 154/88 H 05/30/19 16:00 36.9 C 66 86 13 159/100 H 05/30/19 15:30 65 11 L 149/91 H 05/30/19 15:00 67 6 L 127/73 05/30/19 14:30 64 4 L 127/73 05/30/19 14:00 65 6 L 140/81 05/30/19 13:30 65 10 L 123/86 05/30/19 13:17 36.7 C 69 20 153/92 H 05/30/19 13:00 69 133/74 05/30/19 12:30 73 9 L 153/92 H 05/30/19 12:23 74 7 L 142/79 H 05/30/19 11:52 05/30/19 11:31 36.9 C 75 18 05/30/19 11:30 74 163/97 H 05/30/19 11:00 218/105 H 05/30/19 07:28 36.9 C 76 18 175/102 H BP Pulse Ox 05/30/19 18:00 05/30/19 17:00 05/30/19 16:30 05/30/19 16:00 149/61 H 96 05/30/19 15:30 05/30/19 15:00 05/30/19 14:30 05/30/19 14:00 05/30/19 13:30 05/30/19 13:17 05/30/19 13:00 05/30/19 12:30 05/30/19 12:23 05/30/19 11:52 187/112 H 05/30/19 11:31 163/97 H 98 05/30/19 11:30 05/30/19 11:00 205/119 H 05/30/19 07:28 97 Laboratory Results 05/30/19 05/30/19 05/30/19 Range/Units 18:38 18:37 17:07 WBC (4.8-10.8) K/uL RBC (4.7-6.1) M/uL Hgb (14.0-18.0) g/dL Hct (42-52) % MCV (80-100) fL MCH (25-34) pg MCHC (32-36) g/dL RDW Std Deviation (36.4-46.3) fL RDW Coeff of Rebecca (11.5-14.5) % Plt Count (130-400) K/uL MPV (7.4-10.4) fL Immature Gran % (Auto) % Neut % (Auto) % Lymph % (Auto) % Hodgeman % (Auto) % Eos % (Auto) % Baso % (Auto) % Immature Gran # (Auto) (0.00-0.02) K/uL Neut # (Auto) (1.4-6.5) K/uL Lymph # (Auto) (1.2-3.4) K/uL Hodgeman # (Auto) (0.11-0.59) K/uL Eos # (Auto) (0-0.5) K/uL Baso # (Auto) (0-0.2) K/uL Sodium (136-145) mmol/L Potassium (3.5-5.1) mmol/L Chloride (98-107) mmol/L Carbon Dioxide (21-32) mmol/L Anion Gap (3-11) BUN (7-18) mg/dl Creatinine (0.6-1.4) mg/dl Est Cr Clr Drug Dosing ml/min Est GFR ( Amer) Est GFR (Non-Af Amer) BUN/Creatinine Ratio (10-20) Glucose (70-99) mg/dl POC Glucose 363 H* 356 H* 339 H* (70-99) Calcium (8.5-10.1) mg/dl Magnesium (1.8-2.4) mg/dl Iron (35-175) mcg/dl Transferrin (200-360) mg/dl Transferrin % Sat (20-50) % Beta-Hydroxybutyric Acd (0.2-2.81) mg/dl U Methadone Metabolites (<100) ng/mL Ur Methadone Confirm (<100) ng/mL U OH-Alprazolam Confrm (<25) ng/mL 7-Amino Clonazepam (<25) ng/mL Ur Nordiazepam Confirm (<50) ng/mL U OH-ethylflurazepam (<50) ng/mL U Lorazepam Cnf GC/MS (<50) ng/mL U Oxazepam Confm GC/MS (<50) ng/mL Ur Temazepam Confirm (<50) ng/mL U OH-Triazolam Confirm (<50) ng/mL U OH-Midazolam Confirm (<50) ng/mL Drug Screen Comment 05/30/19 05/30/19 05/30/19 Range/Units 17:06 15:02 14:03 WBC (4.8-10.8) K/uL RBC (4.7-6.1) M/uL Hgb (14.0-18.0) g/dL Hct (42-52) % MCV (80-100) fL MCH (25-34) pg MCHC (32-36) g/dL RDW Std Deviation (36.4-46.3) fL RDW Coeff of Rebecca (11.5-14.5) % Plt Count (130-400) K/uL MPV (7.4-10.4) fL Immature Gran % (Auto) % Neut % (Auto) % Lymph % (Auto) % Hodgeman % (Auto) % Eos % (Auto) % Baso % (Auto) % Immature Gran # (Auto) (0.00-0.02) K/uL Neut # (Auto) (1.4-6.5) K/uL Lymph # (Auto) (1.2-3.4) K/uL Hodgeman # (Auto) (0.11-0.59) K/uL Eos # (Auto) (0-0.5) K/uL Baso # (Auto) (0-0.2) K/uL Sodium (136-145) mmol/L Potassium (3.5-5.1) mmol/L Chloride (98-107) mmol/L Carbon Dioxide (21-32) mmol/L Anion Gap (3-11) BUN (7-18) mg/dl Creatinine (0.6-1.4) mg/dl Est Cr Clr Drug Dosing ml/min Est GFR ( Amer) Est GFR (Non-Af Amer) BUN/Creatinine Ratio (10-20) Glucose (70-99) mg/dl POC Glucose 326 H* 223 H 178 H (70-99) Calcium (8.5-10.1) mg/dl Magnesium (1.8-2.4) mg/dl Iron (35-175) mcg/dl Transferrin (200-360) mg/dl Transferrin % Sat (20-50) % Beta-Hydroxybutyric Acd (0.2-2.81) mg/dl U Methadone Metabolites (<100) ng/mL Ur Methadone Confirm (<100) ng/mL U OH-Alprazolam Confrm (<25) ng/mL 7-Amino Clonazepam (<25) ng/mL Ur Nordiazepam Confirm (<50) ng/mL U OH-ethylflurazepam (<50) ng/mL U Lorazepam Cnf GC/MS (<50) ng/mL U Oxazepam Confm GC/MS (<50) ng/mL Ur Temazepam Confirm (<50) ng/mL U OH-Triazolam Confirm (<50) ng/mL U OH-Midazolam Confirm (<50) ng/mL Drug Screen Comment 05/30/19 05/30/19 05/30/19 Range/Units 13:28 13:04 12:05 WBC (4.8-10.8) K/uL RBC (4.7-6.1) M/uL Hgb (14.0-18.0) g/dL Hct (42-52) % MCV (80-100) fL MCH (25-34) pg MCHC (32-36) g/dL RDW Std Deviation (36.4-46.3) fL RDW Coeff of Rebecca (11.5-14.5) % Plt Count (130-400) K/uL MPV (7.4-10.4) fL Immature Gran % (Auto) % Neut % (Auto) % Lymph % (Auto) % Hodgeman % (Auto) % Eos % (Auto) % Baso % (Auto) % Immature Gran # (Auto) (0.00-0.02) K/uL Neut # (Auto) (1.4-6.5) K/uL Lymph # (Auto) (1.2-3.4) K/uL Hodgeman # (Auto) (0.11-0.59) K/uL Eos # (Auto) (0-0.5) K/uL Baso # (Auto) (0-0.2) K/uL Sodium (136-145) mmol/L Potassium (3.5-5.1) mmol/L Chloride (98-107) mmol/L Carbon Dioxide (21-32) mmol/L Anion Gap (3-11) BUN (7-18) mg/dl Creatinine (0.6-1.4) mg/dl Est Cr Clr Drug Dosing ml/min Est GFR ( Amer) Est GFR (Non-Af Amer) BUN/Creatinine Ratio (10-20) Glucose (70-99) mg/dl POC Glucose 129 H 115 H 86 (70-99) Calcium (8.5-10.1) mg/dl Magnesium (1.8-2.4) mg/dl Iron (35-175) mcg/dl Transferrin (200-360) mg/dl Transferrin % Sat (20-50) % Beta-Hydroxybutyric Acd (0.2-2.81) mg/dl U Methadone Metabolites (<100) ng/mL Ur Methadone Confirm (<100) ng/mL U OH-Alprazolam Confrm (<25) ng/mL 7-Amino Clonazepam (<25) ng/mL Ur Nordiazepam Confirm (<50) ng/mL U OH-ethylflurazepam (<50) ng/mL U Lorazepam Cnf GC/MS (<50) ng/mL U Oxazepam Confm GC/MS (<50) ng/mL Ur Temazepam Confirm (<50) ng/mL U OH-Triazolam Confirm (<50) ng/mL U OH-Midazolam Confirm (<50) ng/mL Drug Screen Comment 05/30/19 05/30/19 05/30/19 Range/Units 11:48 11:30 11:29 WBC (4.8-10.8) K/uL RBC (4.7-6.1) M/uL Hgb (14.0-18.0) g/dL Hct (42-52) % MCV (80-100) fL MCH (25-34) pg MCHC (32-36) g/dL RDW Std Deviation (36.4-46.3) fL RDW Coeff of Rebecca (11.5-14.5) % Plt Count (130-400) K/uL MPV (7.4-10.4) fL Immature Gran % (Auto) % Neut % (Auto) % Lymph % (Auto) % Hodgeman % (Auto) % Eos % (Auto) % Baso % (Auto) % Immature Gran # (Auto) (0.00-0.02) K/uL Neut # (Auto) (1.4-6.5) K/uL Lymph # (Auto) (1.2-3.4) K/uL Hodgeman # (Auto) (0.11-0.59) K/uL Eos # (Auto) (0-0.5) K/uL Baso # (Auto) (0-0.2) K/uL Sodium (136-145) mmol/L Potassium (3.5-5.1) mmol/L Chloride (98-107) mmol/L Carbon Dioxide (21-32) mmol/L Anion Gap (3-11) BUN (7-18) mg/dl Creatinine (0.6-1.4) mg/dl Est Cr Clr Drug Dosing ml/min Est GFR ( Amer) Est GFR (Non-Af Amer) BUN/Creatinine Ratio (10-20) Glucose (70-99) mg/dl POC Glucose 57 L* 56 L* 52 L* (70-99) Calcium (8.5-10.1) mg/dl Magnesium (1.8-2.4) mg/dl Iron (35-175) mcg/dl Transferrin (200-360) mg/dl Transferrin % Sat (20-50) % Beta-Hydroxybutyric Acd (0.2-2.81) mg/dl U Methadone Metabolites (<100) ng/mL Ur Methadone Confirm (<100) ng/mL U OH-Alprazolam Confrm (<25) ng/mL 7-Amino Clonazepam (<25) ng/mL Ur Nordiazepam Confirm (<50) ng/mL U OH-ethylflurazepam (<50) ng/mL U Lorazepam Cnf GC/MS (<50) ng/mL U Oxazepam Confm GC/MS (<50) ng/mL Ur Temazepam Confirm (<50) ng/mL U OH-Triazolam Confirm (<50) ng/mL U OH-Midazolam Confirm (<50) ng/mL Drug Screen Comment 05/30/19 05/30/19 05/30/19 Range/Units 07:27 07:25 06:35 WBC 7.45 (4.8-10.8) K/uL RBC 3.51 L (4.7-6.1) M/uL Hgb 10.3 L (14.0-18.0) g/dL Hct 31.3 L (42-52) % MCV 89.2 (80-100) fL MCH 29.3 (25-34) pg MCHC 32.9 (32-36) g/dL RDW Std Deviation 48.5 H (36.4-46.3) fL RDW Coeff of Rebecca 14.9 H (11.5-14.5) % Plt Count 228 (130-400) K/uL MPV 9.1 (7.4-10.4) fL Immature Gran % (Auto) 0.3 % Neut % (Auto) 40.1 % Lymph % (Auto) 45.5 % Hodgeman % (Auto) 10.6 % Eos % (Auto) 3.4 % Baso % (Auto) 0.1 % Immature Gran # (Auto) 0.02 (0.00-0.02) K/uL Neut # (Auto) 2.99 (1.4-6.5) K/uL Lymph # (Auto) 3.39 (1.2-3.4) K/uL Hodgeman # (Auto) 0.79 H (0.11-0.59) K/uL Eos # (Auto) 0.25 (0-0.5) K/uL Baso # (Auto) 0.01 (0-0.2) K/uL Sodium (136-145) mmol/L Potassium (3.5-5.1) mmol/L Chloride (98-107) mmol/L Carbon Dioxide (21-32) mmol/L Anion Gap (3-11) BUN (7-18) mg/dl Creatinine (0.6-1.4) mg/dl Est Cr Clr Drug Dosing ml/min Est GFR ( Amer) Est GFR (Non-Af Amer) BUN/Creatinine Ratio (10-20) Glucose (70-99) mg/dl POC Glucose 306 H* 320 H* (70-99) Calcium (8.5-10.1) mg/dl Magnesium (1.8-2.4) mg/dl Iron (35-175) mcg/dl Transferrin (200-360) mg/dl Transferrin % Sat (20-50) % Beta-Hydroxybutyric Acd (0.2-2.81) mg/dl U Methadone Metabolites (<100) ng/mL Ur Methadone Confirm (<100) ng/mL U OH-Alprazolam Confrm (<25) ng/mL 7-Amino Clonazepam (<25) ng/mL Ur Nordiazepam Confirm (<50) ng/mL U OH-ethylflurazepam (<50) ng/mL U Lorazepam Cnf GC/MS (<50) ng/mL U Oxazepam Confm GC/MS (<50) ng/mL Ur Temazepam Confirm (<50) ng/mL U OH-Triazolam Confirm (<50) ng/mL U OH-Midazolam Confirm (<50) ng/mL Drug Screen Comment 05/30/19 05/30/19 05/29/19 Range/Units 06:35 02:04 19:58 WBC (4.8-10.8) K/uL RBC (4.7-6.1) M/uL Hgb (14.0-18.0) g/dL Hct (42-52) % MCV (80-100) fL MCH (25-34) pg MCHC (32-36) g/dL RDW Std Deviation (36.4-46.3) fL RDW Coeff of Rebecca (11.5-14.5) % Plt Count (130-400) K/uL MPV (7.4-10.4) fL Immature Gran % (Auto) % Neut % (Auto) % Lymph % (Auto) % Hodgeman % (Auto) % Eos % (Auto) % Baso % (Auto) % Immature Gran # (Auto) (0.00-0.02) K/uL Neut # (Auto) (1.4-6.5) K/uL Lymph # (Auto) (1.2-3.4) K/uL Hodgeman # (Auto) (0.11-0.59) K/uL Eos # (Auto) (0-0.5) K/uL Baso # (Auto) (0-0.2) K/uL Sodium 132 L (136-145) mmol/L Potassium 3.6 (3.5-5.1) mmol/L Chloride 96 L (98-107) mmol/L Carbon Dioxide 28 (21-32) mmol/L Anion Gap 8.0 (3-11) BUN 51 H (7-18) mg/dl Creatinine 7.92 H* (0.6-1.4) mg/dl Est Cr Clr Drug Dosing 12.3 ml/min Est GFR ( Amer) 9.2 Est GFR (Non-Af Amer) 8.0 BUN/Creatinine Ratio 6.4 L (10-20) Glucose 307 H* (70-99) mg/dl POC Glucose 369 H* 249 H (70-99) Calcium 8.1 L (8.5-10.1) mg/dl Magnesium 2.0 (1.8-2.4) mg/dl Iron 96 (35-175) mcg/dl Transferrin 166 L (200-360) mg/dl Transferrin % Sat 41 (20-50) % Beta-Hydroxybutyric Acd 0.67 (0.2-2.81) mg/dl U Methadone Metabolites (<100) ng/mL Ur Methadone Confirm (<100) ng/mL U OH-Alprazolam Confrm (<25) ng/mL 7-Amino Clonazepam (<25) ng/mL Ur Nordiazepam Confirm (<50) ng/mL U OH-ethylflurazepam (<50) ng/mL U Lorazepam Cnf GC/MS (<50) ng/mL U Oxazepam Confm GC/MS (<50) ng/mL Ur Temazepam Confirm (<50) ng/mL U OH-Triazolam Confirm (<50) ng/mL U OH-Midazolam Confirm (<50) ng/mL Drug Screen Comment 05/27/19 Range/Units 17:30 WBC (4.8-10.8) K/uL RBC (4.7-6.1) M/uL Hgb (14.0-18.0) g/dL Hct (42-52) % MCV (80-100) fL MCH (25-34) pg MCHC (32-36) g/dL RDW Std Deviation (36.4-46.3) fL RDW Coeff of Rebecca (11.5-14.5) % Plt Count (130-400) K/uL MPV (7.4-10.4) fL Immature Gran % (Auto) % Neut % (Auto) % Lymph % (Auto) % Hodgeman % (Auto) % Eos % (Auto) % Baso % (Auto) % Immature Gran # (Auto) (0.00-0.02) K/uL Neut # (Auto) (1.4-6.5) K/uL Lymph # (Auto) (1.2-3.4) K/uL Hodgeman # (Auto) (0.11-0.59) K/uL Eos # (Auto) (0-0.5) K/uL Baso # (Auto) (0-0.2) K/uL Sodium (136-145) mmol/L Potassium (3.5-5.1) mmol/L Chloride (98-107) mmol/L Carbon Dioxide (21-32) mmol/L Anion Gap (3-11) BUN (7-18) mg/dl Creatinine (0.6-1.4) mg/dl Est Cr Clr Drug Dosing ml/min Est GFR ( Amer) Est GFR (Non-Af Amer) BUN/Creatinine Ratio (10-20) Glucose (70-99) mg/dl POC Glucose (70-99) Calcium (8.5-10.1) mg/dl Magnesium (1.8-2.4) mg/dl Iron (35-175) mcg/dl Transferrin (200-360) mg/dl Transferrin % Sat (20-50) % Beta-Hydroxybutyric Acd (0.2-2.81) mg/dl U Methadone Metabolites 2810 H (<100) ng/mL Ur Methadone Confirm 1650 H (<100) ng/mL U OH-Alprazolam Confrm NEGATIVE (<25) ng/mL 7-Amino Clonazepam 77 H (<25) ng/mL Ur Nordiazepam Confirm NEGATIVE (<50) ng/mL U OH-ethylflurazepam NEGATIVE (<50) ng/mL U Lorazepam Cnf GC/MS NEGATIVE (<50) ng/mL U Oxazepam Confm GC/MS NEGATIVE (<50) ng/mL Ur Temazepam Confirm NEGATIVE (<50) ng/mL U OH-Triazolam Confirm NEGATIVE (<50) ng/mL U OH-Midazolam Confirm 254 H (<50) ng/mL Drug Screen Comment SEE NOTE PG Care Time/CCT Total # of Minutes Spent Total Time Spent with Patient: Total time spent is greater than 50% in coordination of care (as documented) at patient's floor/unit and/or counseling patient: (1) Hypertension Hypertension type: essential hypertension Qualified Code(s): I10 - Essential (primary) hypertension (2) Diabetes mellitus type I Diabetes mellitus complication status: with kidney complications Diabetes mellitus complication detail: with chronic kidney disease Chronic kidney disease stage: on chronic dialysis Qualified Code(s): E10.22 - Type 1 diabetes mellitus with diabetic chronic kidney disease; N18.6 - End stage renal disease; Z99.2 - Dependence on renal dialysis (3) Anemia Anemia type: iron deficiency
[2019-05-30] MEDS: HEPARIN SOD 5,000 UNIT/0.5 ML VIAL SQ SCH (22:00)
[2019-05-31] MEDS: CHECK CLONIDINE PATCH PLACEMENT SCH ×3 (00:39→17:02)
[2019-05-31] MEDS: INSULIN HUMAN REGULAR SC SCH ×2 (00:40→06:15)
[2019-05-31 06:15] LABS: BUN Creatinine Ratio 6.2 (10-20); Calcium 8.3 mg/dl (8.5-10.1); Creatinine Clr Calc Pharmacy 11.4 ml/min; Est GFR (African American) 9.3; Est GFR (Non-African American) 8.1
[2019-05-31] MEDS: HEPARIN SOD 5,000 UNIT/0.5 ML VIAL SQ SCH ×3 (06:15→21:16)
[2019-05-31] MEDS: LABETALOL HCL IV 5 MG/ML 20ML IV PRN (06:16)
[2019-05-31 06:33] LABS: Beta-Hydroxybutyrate 0.34 mg/dl (0.2-2.81)
[2019-05-31] MEDS ORDERED: INSULIN ASPART 100 UNITS/ML 3 ML PEN SC ONE ×2 (07:30→12:15)
[2019-05-31] MEDS: INSULIN ASPART 100 UNITS/ML 3 ML PEN SC SCH ×3 (08:26→17:00)
[2019-05-31] MEDS: METOPROLOL SUCC 50MG EXT REL TAB PO SCH (08:29)
[2019-05-31] MEDS: CALCIUM ACETATE 667 MG CAP PO SCH ×3 (08:29→17:02)
[2019-05-31] MEDS: HydrALAZINE TAB 50 MG TAB PO SCH (08:29)
[2019-05-31] MEDS: BUMETANIDE 1 MG TAB PO SCH (08:30)
[2019-05-31] MEDS: IRBESARTAN 150 MG TAB PO SCH (08:30)
[2019-05-31] MEDS: NEPHROCAPS PO SCH (08:30)
[2019-05-31] MEDS: METHADONE HCL 10 MG TAB PO SCH (08:34)
[2019-05-31] MEDS: METHADONE HCL 5 MG TAB PO SCH (08:34)
[2019-05-31] MEDS: clonazePAM 0.5 MG TAB PO SCH ×2 (08:34→21:14)
[2019-05-31] MEDS ORDERED: METOPROLOL SUCC 25MG EXT REL TAB PO ONE (09:00)
--- NOTE | 2019-05-31 11:50 | Nephrology Progress Note ---
Date of Service May 31, 2019 Assessment & Plan (1) Hypertensive urgency: improved yesterday, worse today. at hospital presentation w/ seizures, N/V concerning for hypertensive encephalopathy. Head CT wnl; ECG unchanged from prior, CXR clear; brain MRI ON wnl; on cardene gtt only about 1h >>>goal SBP 150-170s today -resume irbesartan higher dose 300 mg daily -increased metoprolol frequency (LA) to 75 mg bid -could also if needed use enalaprilat 1.25 mg IV prn SBP > 160 q4h -cont hydralazine po and upped to 75 mg bid -continue iv hydralazine as well prn >>>>will do PD this evening 12 hrs all greens -cont FR 1.5L/day and on dialysis diet in addition to diabetic one (2) End stage renal disease on dialysis due to type 1 diabetes mellitus: spoke w/ pt's OP dialysis nurse Sandy High 05/29 ; pt has not been to PD clinic since March, has not been returning phone calls. clinic preparing second formal letter listing their concerns w/ his nonadherence. spoke to covering OP dredge master Forrest Self 05/31 >> he agrees pt not good PD candidate; agrees w/ my recommendation for chgne to HD >consult placed for TDC for 06/01 >Dr Del Valle aware to work w/ case mgt on in center HD at [facility] under care of Dr Mireles (transfer from Dr Mireles PD at [facility]) -after TDC will do 3.5 hr HD tx; depending on chair time that will determine when his next HD would be (3) Hyperglycemia: -per primary service; running today in 300s<>50s (4) Anemia: as OP to get 200 mg venofer monthly and 16K units epo q 2wks; anemia stable -on 05/30 had 69288 units epo - t stn = 41%; no venofer needed Subjective really frustrated about still being here - no sob, no campos, no pain; had uneventful PD ON >> 4L off; BG elevated again this am as is BP Review of Systems Review of Systems: All systems reviewed & are unremarkable except as noted in HPI & below Physical Exam Constitutional: well developed, well nourished and + acute distress (mild distress; on RA, frustrated) Eyes: EOM intact bilaterally ENMT: Ears: no external ear abnormality Nose: no external nose abnormality Mouth: + dry oral mucous membranes Neck: no nuchal rigidity Respiratory: normal respiratory effort Auscultation: lungs clear to auscultation bilaterally and + diminished lung sounds Cardiovascular: RRR, no murmur, no edema Gastrointestinal (Abdomen): Inspection/Auscultation: normal bowel sounds Percussion/Palpation: abdomen soft; abdomen nontender pd cath in abdomen Musculoskeletal: Extremities: strength 5/5 throughout Skin: no rashes, warm and dry Neurologic: moves all extremities and awake; not confused and not obtunded Speech / Cognition: normal speech Psychiatric: Orientation: oriented x 3 (tired but appropriate) Results & Data Vital Signs (Past 12 Hours) Vital Signs Temp Pulse Pulse Resp BP BP Pulse Ox 05/31/19 11:04 36.8 C 74 18 160/96 H 95 05/31/19 10:17 194/111 H 05/31/19 08:00 37.0 C 75 15 199/116 H 98 05/31/19 06:30 166/89 H 05/31/19 06:03 184/108 H 05/31/19 04:07 36.9 C 72 18 131/84 93 05/31/19 02:13 142/84 H 05/31/19 00:05 36.9 C 72 18 152/94 H 97 Laboratory Results 05/30/19 06:35 05/31/19 05:17
[2019-05-31] MEDS ORDERED: INSULIN GLARGINE SOLOSTAR 100 UNITS/ML 3 ML PEN SC SCH (12:00)
[2019-05-31] MEDS ORDERED: INSULIN HUMAN REGULAR PER UNIT 3 UNITS in SYRINGE 2.97 ML IV ONE (12:15)
--- NOTE | 2019-05-31 12:34 | Hospitalist Progress Note ---
Date of Service May 31, 2019 Assessment & Plan (1) Hypertensive crisis: Patient presented with hypertensive emergency and seizure, blood pressures were 238/122 on admission Required IV hydralazine, IV labetalol, Cardene drip, and home doses of metoprolol and continued clonidine patch to bring blood pressure under better control Was in ICU and then transferred out after 1 day MRI of the brain without evidence of PRES Blood pressures continued to be significantly elevated requiring frequent doses of IV hydralazine and labetalol Blood pressures are finally now somewhat improved with multiple changes of medications as below as well as extra volume removed with an extra session of p eritoneal dialysis with 4 L taken off in the last 24 hours However in discussion with nephrology, he has essentially failed peritoneal dialysis at this point and needs conversion to hemodialysis for improved blood pressure and volume management. -Increased Toprol-XL to 75 mg p.o. twice daily -Continue clonidine patch 0.2 mg -Continue increased dose of irbesartan 300 mg once daily -Nephrology added on hydralazine and now increased today to 75 mg p.o. twice daily --Can give Vasotec as needed for SBP greater than 160 -Continue Bumex 1 mg p.o. daily -Continue IV labetalol and IV hydralazine as needed -Continued stay for blood pressure management -Plan for tunneled hemodialysis catheter placement on Saturday with hemodialysis to follow (2) Seizure: Patient with witnessed seizure prior to arrival-his 9-year-old son was lying next to him in bed and felt him shaking. Has history of a couple of seizures always related to hypertensive emergency and hyperglycemia in the last 4 months. He is currently not on any antiepileptic drugs. Suspect that seizures this admission and on a previous admission were precipitated by markedly elevated blood pressure and metabolic derangements in setting of elevated glucose and mild acidemia. No focal deficits on neurological exam. CT head negative for acute intracranial pathology. MRI of the brain negative for PRES or tumor or stroke -He had an EEG and was seen by neurology at [facility] on his recent admission there-patient thinks it was a similar episode in which he was not placed on antiepileptic drugs Continued seizure precautions Ativan 1 mg every 30 minutes as needed for seizure activity We will hold off on additional seizure medication at this time -No need for neurology consult at this point -No need for EEG (3) Hyperglycemia: With [facility], serum osmolality 312 on admission May have been precipitated by high dextrose content in diasylate fluid Blood sugar over 900 upon admission, patient with anion gap metabolic acidosis that closed quite quickly. Beta hydroxybutyric acid level normal at 0.72. pH only mildly acidotic on admission Treated initially with insulin drip and then transitioned to Lantus and NovoLog He did not receive any Lantus on 05/30 and instead was attempted to be treated with regular insulin every 6 hours as he was on a high glucose level type of PD fluid for almost 24 hours straight. Since then, he has rebounded and had significant hyperglycemia He has a very brittle diabetic with readings sometimes in the 40s and others at 500 in the same 24-hour period. Hopefully, once he starts hemodialysis, his blood glucose will be easier to manage once off PD Had long discussion with pharmacy today-plan is to restart Lantus 25 units at noon today. He remained hyperglycemic and insulin drip was started again. Continue mealtime coverage as well. Pharmacy is managing glycemic control-appreciate this complex management Hemoglobin A1c uncontrolled at 10.7% but may be misinterpreted in the setting of dialysis -Continue frequent Accu-Cheks as per protocol with insulin drip (4) Hypertension: As above (5) End stage renal disease on dialysis due to type 1 diabetes mellitus: Patient receives peritoneal dialysis at home. Now decision has been made to transition to hemodialysis as per nephrology-Dr. English discussed this with the patient's primary line crew supervisor partner today on the phone -Appreciate nephrology management -N.p.o. after midnight for tunneled hemodialysis catheter tomorrow followed by hemodialysis on Saturday -Case management consulted to make referral to switch his dialysis unit to the [facility] in [place] to hopefully start on Saturday -Continue PhosLo, Nephrocaps -Follow BMP daily -Nephrology previously reached out to the patient's home dialysis clinic and they reported that patient has not shown up for PD clinic in the last 2 months. Patient adamant about leaving the hospital after dialysis on Saturday-hopeful case management can have a chair for him at the new dialysis unit for soon after discharge (6) Diabetes mellitus type I: As above, patient with type 1 diabetes and hyperglycemia/HHS. Overall poorly controlled with ESRD, diabetic retinopathy, gastroparesis Lantus and NovoLog as per pharmacy along with insulin drip -We have reached out for an appointment with [facility] endocrinology for him for after discharge-their office will be calling him (7) Anemia: Patient was stable normochromic/normocytic anemia. Most likely secondary to chronic disease as well as iron deficiency Continue Velphoro iron supplement Continue to monitor CBC -Transferrin saturation here is high at 41%-no IV Venofer needed -Epogen given on 05/30 (8) Substance abuse: Remote history of substance abuse. Continue methadone 85 mg p.o. daily (9) Prolonged Q-T interval on ECG: QTc 499 on admission, likely secondary to methadone use -Avoid QT prolonging agents (10) Hypokalemia: Replaced with K riders and now resolved -Follow BMP in the morning (11) Peritoneal dialysis catheter in place: Noted as above (12) Gastroparesis: -Reglan as needed -Not having much of an issue here anymore (13) Hepatitis C: Has not been treated in the past. Patient reports he was advised by kidney transplant team to not treat his hepatitis C so that he could potentially receive an infected donor kidney with hep C as a way to get a faster transplant. He would then receive treatment for hep C afterwards. (14) Headache: Was severe upon admission secondary to hypertensive emergency, then resolved -Tylenol as needed for pain -Controlling blood pressures as above (15) Anxiety: Continue clonazepam home dose twice daily (16) Blurry vision, bilateral: With worsening blurry vision left greater than right since his episode of profuse vomiting upon admission With history of bilateral vitrectomy and hemorrhage Currently receiving Avastin injections in both eyes with Dr. Schroeder who is a retinal specialist He missed his appointment this past Saturday because he was hospitalized Definitely has decreased visual acuity here, no diplopia, unclear how far off his baseline he is -I discussed his case with the on-call plate roller on the phone who did recommend calling the primary plate roller answering service, but did say that even if the patient is having an acute hemorrhage, there is nothing to be done in the hospital setting. We will have the patient follow-up with Dr. Schroeder soon as possible after discharge. I did leave a message with the [employer] answering service/Dr. Schroeder's service and still have not heard back by the end of the day. (17) DVT prophylaxis: SCDs, SQ heparin Disposition-continued stay on PCU for improved blood pressure control and glucose control Hopeful for discharge to home tomorrow if blood pressures and blood sugar under better control and after tunneled hemodialysis catheter placed and hemodialysis performed Subjective Patient very anxious for discharge, but understands that controlling his blood pressure, blood sugar, and now as per discussion with nephrology-converting peritoneal dialysis to hemodialysis. He is willing to stay overnight and get a tunneled hemodialysis catheter placed tomorrow with likely hemodialysis to follow that. I discussed his case in depth today with nephrology and glycemic management pharmacist. Patient denies headache, but is having blurry vision that he thinks is worse than prior to admission especially in the left eye. He is having floaters and black squiggly lines, but no flashes of light. He has a history of bilateral vitrectomy and hemorrhages. He has been receiving injections of a Avastin in each eye over the last year. No pain in the eye Denies chest pain or shortness of breath, no abdominal pain or nausea or vomiting. Not lightheaded. Review of Systems Review of Systems: All systems reviewed & are unremarkable except as noted in HPI & below Physical Exam Constitutional: average body habitus (Appears older than given age); no acute distress Eyes: PERRL, conjunctivae normal, anicteric sclerae EOM intact bilaterally and reactive pupils (But minimally reactive, 2 mm); + abnormal visual field confrontation (All healy of vision are diminished and he can see movement of the fingers but cannot always differentiate how many fingers I am holding OU), no eyelid abnormality, no anisocoria and no nystagmus ENMT: external ear and nose normal, oropharynx normal (Edentulous) Neck: trachea midline, no thyromegaly Respiratory: normal respiratory effort, lungs clear to auscultation Cardiovascular: RRR, no murmur, no edema Chest (Breasts): Chest: normal inspection of chest Gastrointestinal (Abdomen): normal bowel sounds, soft, nontender, no hepatosplenomegaly Inspection/Auscultation: + abdomen abnormal to inspection (Peritoneal dialysis catheter in place) Musculoskeletal: Extremities: extremities normal to inspection; no cyanosis and no clubbing Skin: no rashes, warm and dry Neurologic: moves all extremities and awake; no focal motor deficits Psychiatric: A+Ox3, euthymic affect Lymphatic: no lymphedema Results & Data Vital Signs (Past 12 Hours) Vital Signs Temp Pulse Pulse Resp BP BP Pulse Ox 05/31/19 11:04 36.8 C 74 18 160/96 H 95 05/31/19 10:17 194/111 H 05/31/19 08:00 37.0 C 75 15 199/116 H 98 05/31/19 06:30 166/89 H 05/31/19 06:03 184/108 H 05/31/19 04:07 36.9 C 72 18 131/84 93 05/31/19 02:13 142/84 H Laboratory Results 05/31/19 05/31/19 05/31/19 Range/Units 17:15 16:15 14:08 Sodium (136-145) mmol/L Potassium (3.5-5.1) mmol/L Chloride (98-107) mmol/L Carbon Dioxide (21-32) mmol/L Anion Gap (3-11) BUN (7-18) mg/dl Creatinine (0.6-1.4) mg/dl Est Cr Clr Drug Dosing ml/min Est GFR ( Amer) Est GFR (Non-Af Amer) BUN/Creatinine Ratio (10-20) Glucose (70-99) mg/dl POC Glucose 207 H 299 H 419 H* (70-99) Calcium (8.5-10.1) mg/dl Beta-Hydroxybutyric Acd (0.2-2.81) mg/dl 05/31/19 05/31/19 05/31/19 Range/Units 13:07 11:37 08:03 Sodium (136-145) mmol/L Potassium (3.5-5.1) mmol/L Chloride (98-107) mmol/L Carbon Dioxide (21-32) mmol/L Anion Gap (3-11) BUN (7-18) mg/dl Creatinine (0.6-1.4) mg/dl Est Cr Clr Drug Dosing ml/min Est GFR ( Amer) Est GFR (Non-Af Amer) BUN/Creatinine Ratio (10-20) Glucose (70-99) mg/dl POC Glucose 459 H* 442 H* 473 H* (70-99) Calcium (8.5-10.1) mg/dl Beta-Hydroxybutyric Acd (0.2-2.81) mg/dl 05/31/19 05/31/19 05/31/19 Range/Units 06:01 05:17 04:07 Sodium 129 L (136-145) mmol/L Potassium 4.0 (3.5-5.1) mmol/L Chloride 94 L (98-107) mmol/L Carbon Dioxide 28 (21-32) mmol/L Anion Gap 7.0 (3-11) BUN 47 H (7-18) mg/dl Creatinine 7.84 H* (0.6-1.4) mg/dl Est Cr Clr Drug Dosing 11.4 ml/min Est GFR ( Amer) 9.3 Est GFR (Non-Af Amer) 8.1 BUN/Creatinine Ratio 6.2 L (10-20) Glucose 481 H* (70-99) mg/dl POC Glucose 470 H* 467 H* (70-99) Calcium 8.3 L (8.5-10.1) mg/dl Beta-Hydroxybutyric Acd 0.34 (0.2-2.81) mg/dl 05/31/19 05/31/19 05/30/19 Range/Units 02:02 00:13 22:10 Sodium (136-145) mmol/L Potassium (3.5-5.1) mmol/L Chloride (98-107) mmol/L Carbon Dioxide (21-32) mmol/L Anion Gap (3-11) BUN (7-18) mg/dl Creatinine (0.6-1.4) mg/dl Est Cr Clr Drug Dosing ml/min Est GFR ( Amer) Est GFR (Non-Af Amer) BUN/Creatinine Ratio (10-20) Glucose (70-99) mg/dl POC Glucose 509 H* 430 H* 351 H* (70-99) Calcium (8.5-10.1) mg/dl Beta-Hydroxybutyric Acd (0.2-2.81) mg/dl 05/30/19 05/30/19 05/30/19 Range/Units 22:09 20:06 18:38 Sodium (136-145) mmol/L Potassium (3.5-5.1) mmol/L Chloride (98-107) mmol/L Carbon Dioxide (21-32) mmol/L Anion Gap (3-11) BUN (7-18) mg/dl Creatinine (0.6-1.4) mg/dl Est Cr Clr Drug Dosing ml/min Est GFR ( Amer) Est GFR (Non-Af Amer) BUN/Creatinine Ratio (10-20) Glucose (70-99) mg/dl POC Glucose 393 H* 300 H 363 H* (70-99) Calcium (8.5-10.1) mg/dl Beta-Hydroxybutyric Acd (0.2-2.81) mg/dl 05/30/19 Range/Units 18:37 Sodium (136-145) mmol/L Potassium (3.5-5.1) mmol/L Chloride (98-107) mmol/L Carbon Dioxide (21-32) mmol/L Anion Gap (3-11) BUN (7-18) mg/dl Creatinine (0.6-1.4) mg/dl Est Cr Clr Drug Dosing ml/min Est GFR ( Amer) Est GFR (Non-Af Amer) BUN/Creatinine Ratio (10-20) Glucose (70-99) mg/dl POC Glucose 356 H* (70-99) Calcium (8.5-10.1) mg/dl Beta-Hydroxybutyric Acd (0.2-2.81) mg/dl PG Care Time/CCT Total # of Minutes Spent Total Time Spent with Patient: Total time spent is greater than 50% in coordination of care (as documented) at patient's floor/unit and/or counseling patient: (1) Diabetes mellitus type I Chronic kidney disease stage: on chronic dialysis Diabetes mellitus complication detail: with chronic kidney disease Diabetes mellitus complication status: with kidney complications Qualified Code(s): E10.22 - Type 1 diabetes mellitus with diabetic chronic kidney disease; N18.6 - End stage renal disease; Z99.2 - Dependence on renal dialysis (2) Anemia Anemia type: iron deficiency (3) Hypertension Hypertension type: essential hypertension Qualified Code(s): I10 - Essential (primary) hypertension
--- NOTE | 2019-05-31 13:14 | Pharmacy Report ---
Glycemic Control Progress Note - Date of Service May 31, 2019 - Scope Glycemic Pharmacist consulted for glycemic control to write orders per [facility] inpatient glycemic control protocol. - Objective Accuchecks BSG(last 24 hours):: 05/30/19 05/30/19 05/30/19 13:04 13:28 14:03 Glucose POC Glucose 115 H 129 H 178 H 05/30/19 05/30/19 05/30/19 15:02 17:06 17:07 Glucose POC Glucose 223 H 326 H* 339 H* 05/30/19 05/30/19 05/30/19 18:37 18:38 20:06 Glucose POC Glucose 356 H* 363 H* 300 H 05/30/19 05/30/19 05/31/19 22:09 22:10 00:13 Glucose POC Glucose 393 H* 351 H* 430 H* 05/31/19 05/31/19 05/31/19 02:02 04:07 05:17 Glucose 481 H* POC Glucose 509 H* 467 H* 05/31/19 05/31/19 05/31/19 06:01 08:03 11:37 Glucose POC Glucose 470 H* 473 H* 442 H* HbA1c:: Hemoglobin A1c 10.7 % (4.5-5.6) H 05/27/19 04:23 - Recent Pertinent Medications The patient is currently receiving: * Basal insulin: Regular insulin 6 units every 6 hours * Correctional Insulin: Novolog Correction per scale ACHS Goal Range: Low 140 mg/dL - High 180 mg/dL Correction Factor: -- mg/dL/unit * Prandial insulin: Per carb ratio of 1 unit per 12 grams CHO consumed * Oral Agents: - Outpatient Anti-Diabetic Meds Lantus 25 units daily + Novolog - Assessment & Plan ASSESSMENT: * See progress note from 05/27/19 for more background info, in short: * Pt receiving SQ basal bolus insulin regimen for hyperglycemia secondary to baseline DM (outpatient regimen on hold). Patient received a different PD treatment last night (alternating high concentration dextrose with low concentration dextrose bags). Blood sugar was extremely elevated yesterday evening and throughout the night. Currently, blood sugar is still elevated. * Yesterday, the patient was transitioned to regular insulin scheduled q6 (to mimic insulin pump) PLUS Novolog carbohydrate ratio only * 12 units of basal insulin * 11 units of prandial/correctional insulin * BSGs ranging 56 - 393 mg/dl over the past 24hrs * Changes needed to insulin regimen: * AM Fasting BSG = 481 mg/dl. This was unexpected as the patient was receiving regular insulin at scheduled intervals in an attempt to minimize oscillating blood sugars. After discussion with patient, it appears that Lantus 25-30 units daily encompasses both basal needs, correction factor, and some carbohydrate intake. He takes basal insulin at 1800... some Novolog at breakfast and most of it in the evening prior to HD. He uses 7 units with "green bag" and 10 units with "red bag." I had an extensive conversation with patient about how this could be managed. He requested to return to Lantus which I agreed with. Will provide Lantus 25 units today at lunch and stop regular insulin. Will need redosed tomorrow. * Post-prandial BSGs are elevated. As discussed above, the patient appears to graze throughout the day and eat one solid meal at bedtime (~1800) prior to peritoneal dialysis session. Per discussion with Dr Verde patient will be changed to hemodialysis tomorrow. He is NPO for catheter placement tomorrow. Will check overnight with very loose correction factor to make sure patient's blood sugars do not remain in 300-400s. * Total daily dose = ? units. Will change dramatically with change from PD to HD. PLAN FOR INPATIENT GLYCEMIC CONTROL: * Lantus 25 units x 1 * Continuing correction factor of 50 mg/dl/unit overnight * Continuing carb ratio of 1 unit per 12 grams CHO consumed * Continuing / changing goal range to Low 140 mg/dL - High 180 mg/dL * Please note that the plan above was derived based on current level of insulin resistance and hospital stress. These recommendations are appropriate for in patient admission only. Plan of care upon discharge will need to be reassessed to avoid potential outpatient hypo/hyperglycemia. Thank you.
[2019-05-31] MEDS ORDERED: INSULIN PROTOCOL GOAL RANGE ONE (14:30)
[2019-05-31] MEDS ORDERED: INSULIN REGULAR 250 UNITS in SODIUM CHLORIDE 0.9% 247.5 ML IV SCH (15:00)
[2019-05-31] MEDS ORDERED: METOPROLOL SUCC 25MG EXT REL TAB PO SCH (21:00)
[2019-06-01] MEDS: INSULIN ASPART 100 UNITS/ML 3 ML PEN SC SCH ×5 (00:29→12:26)
[2019-06-01] MEDS: HEPARIN SOD 5,000 UNIT/0.5 ML VIAL SQ SCH ×2 (05:20→14:11)
[2019-06-01 06:26] LABS: BUN Creatinine Ratio 6.1 (10-20); Calcium 8.2 mg/dl (8.5-10.1); Creatinine Clr Calc Pharmacy 11.3 ml/min; Est GFR (African American) 9.2; Potassium 3.7 mmol/L (3.5-5.1)
[2019-06-01 06:36] LABS: Beta-Hydroxybutyrate 0.49 mg/dl (0.2-2.81)
[2019-06-01] MEDS ORDERED: SODIUM CHLORIDE 0.9% 1000ML 1,000 ML IV PRN (07:00)
[2019-06-01] MEDS ORDERED: CEFAZOLIN 1000MG 1,000 MG/7.5 ML SYR IV ONE (08:00)
--- NOTE | 2019-06-01 08:02 | Consultation ---
Date of Consultation June 01, 2019 Assessment & Plan (1) End stage renal disease on dialysis due to type 1 diabetes mellitus: Patient for insertion of a permcath today. I have discussed the risks options and benefits of the procedure with the patient. The patient understands the risks options and benefits and agrees to the procedure. Thank you very much for letting us participate in the care of this patient. History of Present Illness Reason for Consultation: Need for hemodialysis Attending Physician: Wilbert Beltran MD History of Present Illness Patient is a 33 year old male with a peritoneal dialysis catheter. He is not being adequately dialyzed via this route. Recommended to undergo hemodialysis. Would need permcath placement for this. Allergies Allergy/AdvReac Type Severity Reaction Status Date / Time No Known Allergies Allergy Verified 05/27/19 04:52 Home Medications Home Medications Medication Instructions Recorded Confirmed Type methadone 85 mg PO QAM 05/23/18 05/27/19 History bumetanide 1 mg PO QAM 11/03/18 05/27/19 History clonazepam 0.5 mg PO BID 11/03/18 05/27/19 History Velphoro 1,000 mg PO TIDM 03/24/19 05/27/19 History Fransisca-Jj 0.8 mg PO DAILY 05/20/19 05/27/19 History calcium acetate 1,334 mg PO TIDM 05/20/19 05/27/19 History Humalog U-100 Insulin 1 sliding scale dose SUBCUT UD PRN 05/22/19 05/27/19 Rx #15 ml Lantus U-100 Insulin 25 unit SUBCUT HS #0 ml 05/22/19 05/27/19 Rx clonidine 1 patch TRANSDERMAL CQWK #5 ea 05/22/19 05/27/19 Rx irbesartan 150 mg PO QAM #30 tab 05/22/19 05/27/19 Rx metoprolol succinate 50 mg PO HS #30 tab 05/22/19 05/27/19 Rx Patient History Medical History Anemia Anxiety Anxiety Diabetes mellitus type 1 Diabetic retinopathy of both eyes ESRD (end stage renal disease) on peritoneal dialysis HS (10 hour treatments) Gastroparesis Hepatitis C History of seizure seizure-like activity 02/14/2019 in setting of severe hyperglycemia (patient states he missed dialysis/insulin dose), DKA, confusion- lifeflighted to [facility]/intubated/placed on ventilator. DKA managed with insulin drip on admission. EEG with no seizure activity noted. Neurology consulted and initially started patient on prophylactic Keppra but suspected seizure was complication of hyperglycemia and recommended weaning off anticonvulsants/advised no further neurology workup needed. Per patient, medication/dialysis compliance since discharge with glucoses in the range on 100's-200's on self-checks. Hypertension Peritonitis currently on intraperitoneal abx Seizure Surgical History H/O eye surgery Hx of tonsillectomy Hx of tooth extraction Hx of vitrectomy B/L; right vitrectomy: 05/26/18: LMA#5 at [facility] Peritoneal dialysis catheter in place Family History Grandfather (Maternal) Diabetes Grandfather (Paternal) Diabetes Grandmother (Paternal) Diabetes Grandmother (Maternal) Diabetes Aunt Diabetes Uncle Diabetes Father Hypertension Brother Hypertension Social History Preferred Language: Irish Communication Ability: Effective Leverman Required: No Beliefs That Will Affect Care: None Current Living Situation: Alone and Family Current Living Situation Comment: son with patient Feels Safe at Home: Yes Smoking Status: Former smoker Tobacco Type: smokeless tobacco ; Second Hand Exposure: No ; Hx Alcohol Use: No Hx Substance Use: No Review of Systems Review of Systems: All systems reviewed & are unremarkable except as noted in HPI & below Physical Exam Constitutional: WD/WN, vitals as above Respiratory: normal respiratory effort, lungs clear to auscultation normal respiratory effort; no respiratory distress Cardiovascular: Rate/Rhythm: regular rate and regular rhythm Gastrointestinal (Abdomen): Percussion/Palpation: abdomen nontender Neurologic: CN's II-XI intact bilaterally Motor/Sensory: normal movement Psychiatric: Orientation: alert and oriented x 3 Results & Data Vital Signs (Past 12 Hours) Vital Signs Temp Pulse Resp BP BP Pulse Ox 06/01/19 07:47 36.8 C 71 16 184/103 H 99 06/01/19 03:49 37 C 75 16 142/89 H 97 06/01/19 00:02 36.7 C 70 18 132/80 97
[2019-06-01] MEDS ORDERED: HEPARIN SOD (PORCINE) 5,000 UNITS/ML VIAL ONE (08:15)
[2019-06-01] MEDS ORDERED: LIDOCAINE HCL 1% 20 ML VIAL ONE (08:15)
--- NOTE | 2019-06-01 08:25 | Pre Anesthesia Assessment ---
Date of Service June 01, 2019 Pre Sedation Assessment Vital Signs Temp Pulse Pulse Resp BP BP Pulse Ox 06/01/19 07:47 36.8 C 71 16 184/103 H 99 06/01/19 03:49 37 C 75 16 142/89 H 97 06/01/19 00:02 36.7 C 70 18 132/80 97 05/31/19 19:27 36.9 C 68 20 150/98 H 99 05/31/19 19:09 36.9 C 70 16 137/81 05/31/19 15:36 36.9 C 73 20 122/79 98 05/31/19 11:04 36.8 C 74 18 160/96 H 95 05/31/19 10:17 194/111 H Cardiovascular RRR, no murmur, no edema Respiratory + respiratory effort normal; no respiratory distress Pre-Sedation Airway Assessment Smoking Status: Former smoker Hx Sleep Apnea: No Short, Thick Neck: No Thyromental Distance: > or= 3.5 Finger Breadths Oral Cavity: + Loose Teeth Mallampati Class: II ASA: ASA3 NPO Status Date of Last Intake of Fluids: 05/31/19 Last Oral Intake of Fluids Comment: 2099 Date of Last Intake of Solid Food: 05/31/19 Time of Last Intake of Solid Foods: 21:00 Procedure Planning Contraindications for Sedation: none Current Medications Reviewed: Yes Notes The planned sedation has been discussed with the patient. Informed Consent was obtained. I have identified the patient, determined the appropriateness of sedation and have assessed the patient immediately prior to the procedure. All medicine(s) and interventions are by my order.
[2019-06-01] MEDS ORDERED: fentaNYL citrate 100 MCG/2 ML VIAL ONE ×2 (08:39→09:00)
[2019-06-01] MEDS ORDERED: MIDAZOLAM HCL 1 MG/ML 2ML VIAL ONE ×2 (08:39→08:46)
[2019-06-01] MEDS ORDERED: METOPROLOL SUCC 25MG EXT REL TAB PO SCH (09:00)
--- NOTE | 2019-06-01 09:12 | Operative Report ---
Post Operative Report Pre & Post Diagnosis Operation Date: 06/01/19 08:35 Pre-Op Diagnosis: End Stage Renal Disease Post-Op Diagnosis: End Stage Renal Disease I identified the patient and participated in the time-out.: Yes Procedure Operation Date: 06/01/19 08:35 Actual Procedures p Perm Catheter Insertion, Right Internal Jugular Approach, Ultrasound Localization of Right Jugular Vein, Fluorosocpy for Positioning, Moderate Sedation [id number](Right) - Laith Briones MD Surgeon Laith Briones MD Supervisor Of Research None Estimated Blood Loss 5 Findings Consistent with Post-Op Diagnosis Specimens None Anesthesia Type RN Sedation Complications none Disposition Accompanied Patient To Recovery: No Disposition: Recovery Room Indications This is a 33-year-old male who has peritoneal dialysis catheter in place. He is not able to get successful dialysis through his PD catheter. Hemodialysis was recommended and he needs a PermCath placement. I have discussed the risks options and benefits of the procedure with the patient. The patient understands the risks options and benefits and agrees to the procedure. Description of Procedure Patient was taken to the angio suite and placed in the supine position. The right side of the neck and chest wall were prepped and draped in a sterile manner. The patient was identified and a timeout performed. Local anesthesia was then administered to the appropriate areas of the neck and chest wall. Ultrasound was then used to locate the right internal jugular vein. The vein compressed easily, had no filing defects, and was patent. The vein was then punctured under direct ultrasound imaging. A guidewire was then passed centrally under fluoroscopic imaging. A stab wound was then made in the anterior chest wall and a 19 cm permcath was passed from the stab wound on the chest wall to the puncture site on the neck. The puncture site was then dilated till the 14Fr peel away sheath was inserted. The permcath was then inserted through the sheath to a central position in the distal superior vena cava. The peel away sheath was then removed. The catheter was then sutured in place using nylon sutures. The puncture was then closed using a 4-0 Vicryl subcuticular suture. Dermabond was used for a dressing on the puncture site. Both ports aspirated and flushed easily and were then packed with heparin. A sterile dressing was applied to the catheter. The patient left the operation room in satisfactory condition and tolerated the procedure well. All needle and sponge counts were correct at the end of the procedure. I attest to the content of the Intraoperative Record and any orders documented therein. Any exceptions are noted below.
--- NOTE | 2019-06-01 09:20 | Post Anesthesia Assessment ---
Date of Service June 01, 2019 Post Sedation Assessment Vital Signs Temp Pulse Pulse Pulse Resp BP BP 06/01/19 09:15 71 16 168/108 H 06/01/19 09:10 70 14 168/102 H 06/01/19 09:07 72 16 180/119 H 06/01/19 09:02 75 16 133/100 06/01/19 08:57 71 16 175/106 H 06/01/19 08:52 72 19 198/115 H 06/01/19 08:47 74 19 200/118 H 06/01/19 08:44 74 20 211/119 H 06/01/19 07:47 36.8 C 71 16 184/103 H 06/01/19 03:49 37 C 75 16 142/89 H 06/01/19 00:02 36.7 C 70 18 132/80 05/31/19 19:27 36.9 C 68 20 150/98 H 05/31/19 19:09 36.9 C 70 16 137/81 05/31/19 15:36 36.9 C 73 20 122/79 05/31/19 11:04 36.8 C 74 18 160/96 H 05/31/19 10:17 194/111 H Pulse Ox 06/01/19 09:15 98 06/01/19 09:10 100 06/01/19 09:07 99 06/01/19 09:02 100 06/01/19 08:57 100 06/01/19 08:52 100 06/01/19 08:47 100 06/01/19 08:44 100 06/01/19 07:47 99 06/01/19 03:49 97 06/01/19 00:02 97 05/31/19 19:27 99 05/31/19 19:09 05/31/19 15:36 98 05/31/19 11:04 95 05/31/19 10:17 Recovery Score Activity: Moves 4 extremities Respiration: Deep Breath/Cough Circulation: +/-20% PreAnes Value Consciousness: Fully Awake Oxygen Saturation: > 92% On Room Air Post Anesthesia Score: 10 Discharge Sedation Level of Care: Fast Track Phase II Post Sedation Plan On clinical assessment, the patient appears to have tolerated the sedation without complications. Patient is recovering as anticipated. Patient will continue to be monitored by nursing and may be discharged when sedation discharge criteria are met per below protocol. Upon Completions of procedure up to 15 minutes continue every 5 minute vital signs and the P.A.R. score; then discharge to a Phase I or Fast Track to Phase II per the following guidelines: * Discharge Patient to appropriate Phase II area if PAR is 8 or greater or return to pre- procedure baseline. The post - procedure orders will be as directed. * If PAR score is less than 8 or not return to pre-procedure baseline then patient will follow Phase I monitoring till PAR is reached for Phase II. The Phase I may be done in procedure room or may call to secure a Phase I area. * If naloxone or flumazenil are used for reversal, hold in Phase I for continued monitoring from when last reversal dose was given for a minimum of 60 minutes or longer pending the nurse and/or physician discretion of patient condition before discharge to Phase II. Please call the Sedation Physician to re-evaluate and complete post-note for discharge to Phase II area. Do NOT discharge from procedure sedation or Phase 1 until post- sedation evaluation note is complete by procedure /sedation MD Sedation Discharge Instructions to be given to the patient at discharge to home.
[2019-06-01] MEDS: clonazePAM 0.5 MG TAB PO SCH (10:09)
[2019-06-01] MEDS: METHADONE HCL 5 MG TAB PO SCH (10:09)
--- NOTE | 2019-06-01 10:09 | Nephrology Progress Note ---
Date of Service June 01, 2019 Assessment & Plan (1) Hypertensive urgency: labile BP continue. at hospital presentation w/ seizures, N/V concerning for hypertensive encephalopathy. Head CT wnl; ECG unchanged from prior, CXR clear; brain MRI ON wnl; on cardene gtt only about 1h >>>goal SBP 140-160s today -recommend at d/c >> irbesartan (higher dose than admission) 300 mg daily; metoprolol long acting (higher dose than admission) 75 mg bid; clonidine patch 0.2; increase hydralazine to 100 mg bid -would ideally avoid IV bp meds on day of possible d/c; if needed use enalaprilat 1.25 mg IV prn SBP > 160 q4h; also have orders fo yayo hydralazine as well prn -cont FR 1.5L/day and dialysis diet in addition to diabetic one (2) End stage renal disease on dialysis due to type 1 diabetes mellitus: spoke w/ pt's OP dialysis nurse Sandy High 05/29 ; pt has not been to PD clinic since March, has not been returning phone calls. clinic preparing second formal letter listing their concerns w/ his nonadherence. spoke to covering OP boilerhouse mechanic Dr Villa 05/31 >> he agrees pt not good PD candidate; agrees w/ my recommendation for change to HD >vascular assistance appreciated; got TDC 06/01 >f/u w/ case mgt on chair time -after TDC will do 3.5 hr HD tx; depending on chair time that will determine when his next HD would be; may need to lengthen today's tx (3) Hyperglycemia: -per primary service; running today in 400s; on ins gtt (4) Anemia: as OP to get 200 mg venofer monthly and 16K units epo q 2wks; anemia stable -on 05/30 had 63264 units epo - t stn = 41%; no venofer needed Subjective seen in preop holding before TDC today. nervous. no PAYNE, emesis, uncontrolled pain. no swelling. 1.8L off overnight w/ PD. on insulin gtt for BG 400+ Review of Systems Review of Systems: All systems reviewed & are unremarkable except as noted in HPI & below Physical Exam Constitutional: well developed and well nourished; no acute distress (lying flat on RA) Eyes: EOM intact bilaterally ENMT: Ears: no external ear abnormality Nose: no external nose abnormality Mouth: + dry oral mucous membranes Neck: no nuchal rigidity Respiratory: normal respiratory effort Auscultation: lungs clear to auscultation bilaterally and + diminished lung sounds Cardiovascular: RRR, no murmur, no edema Gastrointestinal (Abdomen): Inspection/Auscultation: normal bowel sounds Percussion/Palpation: abdomen soft; abdomen nontender PD cath in abdomen Musculoskeletal: Extremities: strength 5/5 throughout Skin: no rashes, warm and dry Neurologic: moves all extremities and awake; not confused and not obtunded Speech / Cognition: normal speech Psychiatric: Orientation: oriented x 3 (tired but appropriate) Results & Data Vital Signs (Past 12 Hours) Vital Signs Temp Pulse Pulse Pulse Resp BP BP 06/01/19 09:39 37.0 C 71 18 06/01/19 09:15 71 16 168/108 H 06/01/19 09:10 70 14 168/102 H 06/01/19 09:07 72 16 180/119 H 06/01/19 09:02 75 16 133/100 06/01/19 08:57 71 16 175/106 H 06/01/19 08:52 72 19 198/115 H 06/01/19 08:47 74 19 200/118 H 06/01/19 08:44 74 20 211/119 H 06/01/19 07:47 36.8 C 71 16 184/103 H 06/01/19 03:49 37 C 75 16 142/89 H 06/01/19 00:02 36.7 C 70 18 132/80 Pulse Ox 06/01/19 09:39 06/01/19 09:15 98 06/01/19 09:10 100 06/01/19 09:07 99 06/01/19 09:02 100 06/01/19 08:57 100 06/01/19 08:52 100 06/01/19 08:47 100 06/01/19 08:44 100 06/01/19 07:47 99 06/01/19 03:49 97 06/01/19 00:02 97 Laboratory Results 05/30/19 06:35 06/01/19 05:34
[2019-06-01] MEDS: METHADONE HCL 10 MG TAB PO SCH (10:10)
[2019-06-01] MEDS: ACETAMINOPHEN 325 MG TAB PO PRN (10:13)
[2019-06-01] MEDS: CALCIUM ACETATE 667 MG CAP PO SCH ×3 (10:13→16:42)
[2019-06-01] MEDS: NEPHROCAPS PO SCH (10:14)
[2019-06-01] MEDS: BUMETANIDE 1 MG TAB PO SCH (10:14)
[2019-06-01] MEDS: CHECK CLONIDINE PATCH PLACEMENT SCH ×3 (10:14→16:11)
--- NOTE | 2019-06-01 12:42 | Pharmacy Report ---
Glycemic Control Progress Note - Date of Service June 01, 2019 - Scope Glycemic Pharmacist consulted for glycemic control to write orders per [facility] inpatient glycemic control protocol. - Objective Accuchecks BSG(last 24 hours):: 05/31/19 05/31/19 05/31/19 13:07 14:08 16:15 Glucose POC Glucose 459 H* 419 H* 299 H 05/31/19 05/31/19 05/31/19 17:15 18:14 19:19 Glucose POC Glucose 207 H 161 H 92 05/31/19 05/31/19 05/31/19 19:50 20:27 22:00 Glucose POC Glucose 137 H 178 H 329 H* 05/31/19 06/01/19 06/01/19 23:59 03:46 03:47 Glucose POC Glucose 387 H* 527 H* 540 H* 06/01/19 06/01/19 06/01/19 05:04 05:08 05:34 Glucose 461 H* POC Glucose 460 H* 468 H* 06/01/19 06/01/19 06/01/19 06:24 07:16 08:43 Glucose POC Glucose 370 H* 348 H* 251 H 06/01/19 06/01/19 06/01/19 09:13 10:28 11:28 Glucose POC Glucose 203 H 137 H 143 H HbA1c:: Hemoglobin A1c 10.7 % (4.5-5.6) H 05/27/19 04:23 - Recent Pertinent Medications The patient is currently receiving: * Basal insulin: Lantus 25 units every 24 hours * Correctional Insulin: Novolog Correction per scale ACHS Goal Range: Low 140 mg/dL - High 180 mg/dL Correction Factor: -- mg/dL/unit * Prandial insulin: Per carb ratio of 1 unit per 12 grams CHO consumed * Insulin infusion: started around 1400 yesterday 05/31/19 and ran until 1830 on 05/31/19. Restarted in the morning of 06/01/19 around 0500 and ran until middle of the morning around 1000 on 06/01/19 - Outpatient Anti-Diabetic Meds Lantus 25 units plus Novolog - Assessment & Plan ASSESSMENT: * See progress note from 05/27/19 for more background info, in short: * Pt receiving SQ basal bolus insulin regimen for hyperglycemia secondary to DM regimen at home on hold. Patient received last dose of PD yesterday and is NPO this morning for catheter placement. * Patient is currently receiving an average of 35 units of insulin per day * 25 units of basal insulin * 15 units of prandial/correctional insulin * BSGs ranging 99 - 470 mg/dl over the past 24hrs * Changes needed to insulin regimen: * AM Fasting BSG = 461 mg/dl. This is above goal range for patient based on inpatient targets and co-morbidities. This was during peritoneal dialysis. This is ending today. Per note yesterday, the patient's Lantus covers a great deal more than simply basal needs. Had discussion with Dr Yarbrough due to the complex nature of the patient's case. Together decided on about 17 units of Lantus per day. Had discussion with Dr Beltran that patient will require close follow-up and titration with molding utility worker. * Post-prandial BSGs are not controlled. Will settle with loose correction factor of 50 and carbohydrate ratio of 12. * Total daily dose = ? units. This has and will change vastly with hemodialysis. PLAN FOR INPATIENT GLYCEMIC CONTROL: * Basal insulin * Lantus 17 units SQ daily * Bolus insulin * NovoLog per scale ACHS or Q6hrs while NPO * Goal Range: Low 140 mg/dL - High 180 mg/dL * Correction Factor: 50 mg/dL/unit * Nutritional / Prandial insulin per carb ratio of 1 unit per 12 grams CHO consumed RECOMMENDATIONS FOR DISCHARGE: * Lantus 17 units once daily * Novolog goal range 140-180 * CF of 1 units per 50 points above 180 mg/dL * CR of 1 unit per 12 grams of carbohydrates consumed * This has been discussed with discharging physician. Patient will require follow-up and close titration with molding utility worker. This dose has NOT been titrated inhouse and is an estimation of what patient will require on disch arge. Thank you.
[2019-06-01] MEDS ORDERED: INSULIN GLARGINE SOLOSTAR 100 UNITS/ML 3 ML PEN SC ONE (12:45)
[2019-06-01] MEDS: IRBESARTAN 150 MG TAB PO SCH (14:32)
--- NOTE | 2019-06-01 15:24 | Discharge Summary ---
Date of Service June 01, 2019 Admission HPI Per Admitting Provider History predominantly obtained through chart review, discussion with patient's significant other at bedside and discussion with the ER attending. Bernard Jones is an unfortunate 33-year-old male with multiple medical problems to include type 1 diabetes, end-stage renal disease on peritoneal dialysis, seizure disorder, hypertension. Patient was at home this evening giving himself dialysis when he had a witnessed seizure. His son was at home with him at the time. He called his mother who then called 911. EMS reports that upon their arrival he was awake alert and oriented. He had a second witnessed seizure in route for which she was administered midazolam 5 mg IM. Patient hypertensive on arrival to the ER at 238/132, he was awake, alert and following some commands. He was administered 2 doses of hydralazine for hypertensive emergency and an insulin drip was initiated for blood sugar over 900. Patient does not provide much history. States that he "does not feel well". Denies chest pain, palpitations, shortness of breath. Denies abdominal pain, nausea, vomiting, diarrhea, constipation. Does report a slight headache. No additional complaints at this time ER course: Hydralazine 10 mg IV x2, regular insulin 7.5 units followed by insulin drip per protocol, normal saline 500 mL Principal Diagnosis Seizure from high blood pressure and high blood sugars Discharge Exam Constitutional WD/WN, vitals as above Eyes EOM intact bilaterally; no conjunctival abnormality ENMT external ear and nose normal, oropharynx normal Neck trachea midline, no thyromegaly normal visual inspection Respiratory normal respiratory effort, lungs clear to auscultation no respiratory distress Cardiovascular RRR, no murmur, no edema Gastrointestinal (Abdomen) Inspection/Auscultation: abdomen normal to inspection; abdomen not distended Musculoskeletal no cyanosis or clubbing, extremities motor strength 5/5 Skin no rashes, warm and dry Neurologic moves all extremities and awake Psychiatric Orientation: alert, oriented to person and cooperative Discharge Data Allergies Allergy/AdvReac Type Severity Reaction Status Date / Time No Known Allergies Allergy Verified 05/27/19 04:52 Consultations 05/27/19 06:03 ED Decision to Admit Stat 05/27/19 07:32 Consult Nephrology Routine 05/27/19 08:55 Consult Warehouse Delivery Driver Stat 05/31/19 11:45 Consult Vascular Surgery Routine Procedures Performed Operation Date: 06/01/19 08:35 Actual Procedures p Perm Catheter Insertion, Right Internal Jugular Approach, Ultrasound Localization of Right Jugular Vein, Fluorosocpy for Positioning, Moderate Sedation [id number] [id number](Right) - Laith Briones MD Ordered Studies 05/27/19 04:49 CT head/brain wo con Stat 05/27/19 16:22 MR brain seizure wo con Urgent 06/01/19 07:18 EV cvc insrt tunnel wo prt/wind energy engineer Routine Hospital Course (1) Hypertensive crisis: Patient presented with hypertensive emergency and seizure, blood pressures were 238/122 on admission. Required IV hydralazine, IV labetalol, Cardene drip, and home doses of metoprolol and continued clonidine patch to bring blood pressure under better control. Discharge regimen confirmed with nephrology on the day of discharge. - Continue clonidine patch 0.2 mg per 24h - Increased dose of irbesartan 300 mg once daily - Increased Toprol-XL to 75 mg p.o. twice daily - Added Hydralazine 100mg PO BID - Continue Bumex 1 mg p.o. daily These were all sent to his pharmacy and discussed in-person with the patient. (2) Seizure: Patient with witnessed seizure prior to arrival - his 9-year-old son was lying next to him in bed and felt him shaking. Has history of a couple of seizures always related to hypertensive emergency and hyperglycemia in the last 4 months. - He is currently not on any antiepileptic drugs. Suspect that seizures this admission and on a previous admission were precipitated by markedly elevated blood pressure and metabolic derangements in setting of elevated glucose and mild acidemia. - MRI of the brain negative for PRES or tumor or stroke - He had an EEG and was seen by neurology at [facility] on his recent admission there - patient thinks it was a similar episode in which he was not placed on antiepileptic drugs. - No further seizure activity in the hospital. (3) Hyperglycemia: With HHS, serum osmolality 312 on admission. May have been precipitated by high dextrose content in diasylate fluid. - Was on/off insulin gtt while here. - Now that he is undergoing HD, hopefully his glucose levels will be better managed. Discharge recs were planned by the pharmacist and an formal service waiter. RECOMMENDATIONS FOR DISCHARGE: Lantus 17 units once daily Novolog goal range 140-180 CF of 1 units per 50 points above 180 mg/dL CR of 1 unit per 12 grams of carbohydrates consumed This has been discussed with discharging physician. Patient will require follow- up and close titration with formal service waiter. This dose has NOT been titrated inhouse and is an estimation of what patient will require on discharge. (4) Hypertension: As above (5) End stage renal disease on dialysis due to type 1 diabetes mellitus: Patient received peritoneal dialysis at home. Now decision has been made to transition to hemodialysis as per nephrology - Dr. English discussed this with the patient's primary metal model builder partner today on the phone. - Received tunneled line with Dr. Briones on 06/01 with successful HD run afterward. - Will need to go to [facility] on at 11AM. Case management arranged his ride. - Discussed with the patient and written in discharge instructions. (6) Diabetes mellitus type I: As above, patient with type 1 diabetes and hyperglycemia/HHS. Overall poorly controlled with ESRD, diabetic retinopathy, gastroparesis. - As above - We have reached out for an appointment with [facility] endocrinology for him for after discharge-their office will be calling him (7) Anemia: Patient was stable normochromic/normocytic anemia. Most likely secondary to chronic disease as well as iron deficiency. Continue Velphoro iron supplement - Transferrin saturation here is high at 41%-no IV Venofer needed - Epogen given on 05/30 (8) Substance abuse: Remote history of substance abuse. Continue methadone 85 mg p.o. daily - Attempted to call his outpatient methadone clinic, but no return to [facility]. Will need to follow up tomorrow. (9) Prolonged Q-T interval on ECG: QTc 499 on admission, likely secondary to methadone use. - Avoid QT prolonging agents (10) Peritoneal dialysis catheter in place: Noted as above - Will need follow up with Dr. Briones for removal. (11) Gastroparesis: -Reglan as needed -Not having much of an issue here anymore (12) Hepatitis C: Has not been treated in the past. Patient reports he was advised by kidney transplant team to not treat his hepatitis C so that he could potentially receive an infected donor kidney with hep C as a way to get a faster transplant. He would then receive treatment for hep C afterwards. (13) Anxiety: Continue clonazepam home dose twice daily (14) Blurry vision, bilateral: With worsening blurry vision left greater than right since his episode of profuse vomiting upon admission. With history of bilateral vitrectomy and hemorrhage. Currently receiving Avastin injections in both eyes with Dr. Schroeder who is a retinal specialist. He missed his appointment this past Saturday because he was hospitalized. - Prior provider discussed his case with the on-call adjunct mathematics instructor on the phone who did recommend calling the primary adjunct mathematics instructor answering service, but did say that even if the patient is having an acute hemorrhage, there is nothing to be done in the hospital setting. We will have the patient follow-up with Dr. Schroeder soon as possible after discharge. - Sulma Bella is getting an appointment as soon as able after discharge. (15) DVT prophylaxis: Heparin in the hospital Total Time Total Time Spent Total Time Spent (In Minutes): 45 Discharge Plan Discharge Items Patient Disposition: Home - Self-Care Reason For Visit: HYPERGLYCEMIA, HTN, SEIZURE Discharge Diagnosis: Seizures from high blood sugar and/or high blood pressure Activity: Resume your previous activity Non-emergency contact: Primary Care Provider, Specialist and Returned Telephone Equipment Appraiser Call non-emergency contact if: you have any medication questions, your symptoms worsen and your temperature is above 101 Follow-up/Referrals: [facility] [Provider Group] (Please, follow up at [facility]. *A nurse from this office will contact you regarding appointment information. If you have any questions, call the office at [phone].) Ana M Sanders DO [Primary Care Provider] - 06/05/19 1:45 pm (Please, follow up at Dr. Sanders's office with his associate, Serenity Sanchez PA-C, on SaturdayJune 05 at 1:45 pm. *If you need to change this appointment, call their office at [phone].) Palma Hurley PA-C [Physician Manager French] - 06/17/19 1:00 pm (Please, follow up at [facility] Endocrin[facility] Office with Palma Hurley PA-C, on SaturdayJune 17 at 1:00 pm. *If you need to change this appointment, call the office at [phone].) Diet: Carb Count or DM1 and Dialysis Renal Addtl Attending Provider Instructions: You were admitted for seizures that we believe were from your high blood p ressure and high blood sugars. We started you on hemodialysis, and you need to go to [facility] on at 11AM for your next hemodialysis. For your blood sugars, this is tricky because you are not going to have the high sugar loads from your peritoneal dialysis. The pharmacist discussed this with our formal service waiter and came up with these recommendations: RECOMMENDATIONS FOR DISCHARGE: Lantus 17 units once daily (This was given at 2pm on 06/01/2019.) Novolog goal range 140-180 CF of 1 units per 50 points above 180 mg/dL CR of 1 unit per 12 grams of carbohydrates consumed For your blood pressure, Dr. Rose made some changes to help keep it under control: 1) Increase irbesartan (Avapro) to 300 mg every morning 2) Increase metoprolol XL to 75 mg two times per day (morning and night) 3) Added hydralazine 100 mg two times per day (morning and night) 4) Continue, unchanged the clonidine patch These have all been sent to your pharmacy. Pending Studies at Discharge: No Stand-Alone Forms: My [facility], Smoking Cessation Medications and DC Order Prescriptions: New hydralazine 100 mg tablet 100 mg PO BID Qty: 60 RF: 0 metoprolol succinate 50 mg tablet extended release 24 hr 75 mg PO BID Qty: 90 RF: 0 irbesartan 300 mg tablet 300 mg PO DAILY Qty: 30 RF: 0 Continued methadone 10 mg Tablet 85 mg PO QAM RF: 0 clonazepam 0.5 mg tablet 0.5 mg PO BID RF: 0 bumetanide 1 mg tablet 1 mg PO QAM RF: 0 Velphoro 500 mg Tablet,Chewable 1,000 mg PO TIDM RF: 0 Fransisca-Jj 0.8 mg tablet 0.8 mg PO DAILY RF: 0 calcium acetate 667 mg capsule 1,334 mg PO TIDM RF: 0 clonidine 0.2 mg/24 hr Patch Weekly 1 patch transdermal CQWK Qty: 5 RF: 0 Humalog U-100 Insulin 100 unit/mL Cartridge 1 sliding scale dose SUBCUT UD PRN (Reason: Blood sugar) Qty: 15 RF: 0 Changed Lantus U-100 Insulin 100 unit/mL Solution 17 unit SUBCUT DAILY Qty: 0 RF: 0 Discharge Orders: Discharge Order (Routine); Ordered 06/01/19 Ordered By: Wilbert Beltran Admission Data Admit Date/Time: 05/27/19 06:23 Attending Provider: Wilbert Beltran Admit Provider: Charisse Multani Primary Care Provider: Ana M Sanders Other Providers: Wilbert Beltran ; Charisse Multani ; Eusebia Rose ; Hugo Barlow ; Laith Briones
[2019-06-01] MEDS ORDERED: INSULIN ASPART 100 UNITS/ML 3 ML PEN SC SCH (16:30)
== END 2019-06-01 17:56 | disposition home health service (06) | DRG 981 ==
LOC: ED 04:43 → 2E 06:23 → SUATTDRO 06:23 → 2E 06:54 → 1E 10:01 → 2E 05-28 12:12

== ENCOUNTER 2019-10-09 02:51 | Inpatient (IN) ==
[2019-10-09] MEDS ORDERED: ONDANSETRON 4 MG OD TAB ONE (03:16)
[2019-10-09] MEDS ORDERED: ONDANSETRON INJ 2 MG/ML 2 ML VIAL IV STA (03:26)
[2019-10-09 03:33] LABS: Basophils # (auto) 0.01 K/uL (0-0.2); Basophils % (auto) 0.1 %; Eosinophils # (auto) 0.01 K/uL (0-0.5); Eosinophils % (auto) 0.1 %; Hemoglobin 11.7 g/dL (14.0-18.0); Immature Granulocytes # (auto) 0.05 K/uL (0.00-0.02); Immature Granulocytes % (auto) 0.3 %; Lymphocytes # (auto) 1.08 K/uL (1.2-3.4); Lymphocytes % (auto) 7.1 %; Mean Corpuscular Hemoglobin 31.3 pg (25-34); Mean Corpuscular Hgb Conc 33.4 g/dL (32-36); Mean Corpuscular Volume 93.6 fL (80-100); Mean Platelet Volume 9.1 fL (7.4-10.4); Monocytes # (auto) 1.49 K/uL (0.11-0.59); Monocytes % (auto) 9.8 %; Neutrophils # (auto) 12.63 K/uL (1.4-6.5); Neutrophils % (auto) 82.6 %; Platelet Count 285 K/uL (130-400); RDW Coefficient of Variation 15.2 % (11.5-14.5); Red Blood Count 3.74 M/uL (4.7-6.1); White Blood Count 15.27 K/uL (4.8-10.8)
[2019-10-09 03:43] LABS: Partial Thromboplastin Time 26.8 Seconds (21.0-31.0); Prothrombin Time 10.4 Seconds (9.0-12.0)
[2019-10-09] MEDS ORDERED: SODIUM CHLORIDE 0.9% 500 ML IV ONE (03:44)
[2019-10-09 04:08] LABS: Alanine Aminotransferase 16 U/L (12-78); Albumin Globulin Ratio 0.8 (0.9-2); Albumin Level 3.8 gm/dl (3.4-5.0); Alkaline Phosphatase 98 U/L (45-117); Aspartate Aminotransferase 14 U/L (15-37); BUN Creatinine Ratio 6.4 (10-20); Bilirubin,Total 0.6 mg/dl (0.2-1); Blood Urea Nitrogen 57 mg/dl (7-18); Carbon Dioxide 20 mmol/L (21-32); Chloride 90 mmol/L (98-107); Est GFR (Non-African American) 6.9; Globulin 4.5 gm/dl (2.5-4.0); Glucose 453 mg/dl (70-99); Lipase 20 U/L (73-393); Sodium 127 mmol/L (136-145); Total Protein 8.3 gm/dl (6.4-8.2); Troponin I < 0.015 ng/ml (0-0.045)
[2019-10-09] MEDS ORDERED: OPTIRAY 320 125ml IV PRN (04:15)
[2019-10-09] MEDS ORDERED: CALCIUM GLUCONATE 10% 1,000 MG in SODIUM CHLORIDE 0.9% 50 ML IV STA (04:17)
[2019-10-09] MEDS ORDERED: NovoLIN-R INSULIN PER UNIT CHARGE IV STA (04:17)
[2019-10-09] MEDS ORDERED: ALBUTEROL 0.083% NEBU SOLN 3 ML VIAL NEB STA (04:17)
[2019-10-09] MEDS ORDERED: CALCIUM GLUCONATE 10% 10 ML VIAL IV ONE (04:35)
--- NOTE | 2019-10-09 04:50 | Emergency Department Note ---
Impression & Plan Acute hyperkalemia, Hyponatremia, Acute hyperglycemia, Substernal chest pain ED Provider Note NAME: PETR BULLARD AGE: 34 SEX: M ARRIVES VIA: Walk-In INFORMANT: Patient ED PROVIDER(S): Delmy Vallejo DO CHIEF COMPLAINT: Chest pain PLAN: [facility] for emergent dialysis Condition: Critical condition with hyperkalemia MEDICAL DECISION MAKING: This is a 34-year-old male patient who presents to the emergency department after awakening from sleep with diffuse burning chest pain. Patient explains that he was at [facility] throughout the day yesterday having a fistula in his left arm transposed. He states that he felt fine after being discharged from the hospital and was in his usual state of health last night. He went to sleep but then awoke with this burning sensation in his chest and abdomen. He presents to the emergency department here noted to have significant hyperglycemia, hyperkalemia, and hyponatremia. The patient has a potassium of 7 with some peaked T waves on EKG and will require emergent dialysis. He was treated with IV calcium gluconate, IV insulin, nebulized albuterol, IV normal saline solution. The case was discussed with the [facility] hospitalist group and will be admitted to the ICU for emergent dialysis. Triage Nursing notes reviewed and agree them. Prior medical records reviewed Vital Signs: reviewed and were unremarkable Differential diagnosis: GERD, aortic dissection, cardiac ischemia, PE, DKA, hyperkalemia ER treatment provided: IV normal saline hydration, IV insulin, IV IV calcium gluconate, nebulized albuterol IV Zofran Diagnostics interpreted by me: ECG: Normal sinus rhythm at 73. The patient has peaked T waves concerning for hyperkalemia. Cardiac Monitoring: Normal sinus rhythm at 72 with no obvious ectopy Imaging studies: As per stat rad CTA chest: No pulmonary embolism or acute aortic syndrome. Small groundglass opacity in the right upper lobe, likely infectious or inflammatory. Atelectasis within the lower lobes. No pleural effusion or pneumothorax. Subcutaneous emphysema and fat stranding adjacent to the left axillary or brachial artery in the proximal left upper extremity incompletely visualized correlate clinically Laboratory studies: See below HPI: 34/M arrives for evaluation of burning chest and abdomen pain. This is a 34-year-old male patient with a history of diabetes and end-stage renal disease who presents to the emergency department after awakening with severe burning chest and abdominal pain. He had his fistula transposed in his left arm today at [facility]. He felt fine after the procedure today but awoke from sle ep tonight with a burning sensation in his chest and abdomen. He presents here this morning for evaluation of this. The patient states that his blood sugar was a little bit elevated before bed last night and he took insulin. The patient had dialysis 2 days ago and was scheduled to have dialysis this morning at 11 AM. He has been receiving dialysis through the catheters in his chest since Matthew time. The patient denies ever having chest pain like this in the past. He denies any shortness of breath, cough, fevers or chills. ROS: See above HPI for pertinent positives & negatives. A total of 10 systems reviewed and were otherwise negative. PAST MEDICAL HISTORY:See Below PAST SURGICAL HISTORY:See Below FAMILY HISTORY:See Below SOCIAL HISTORY:See Below HOME MEDICATIONS:See list ALLERGIES:None VITALS:Stable PHYSICAL EXAMINATION: HEENT: Head - normocephalic and atraumatic Pupils are equal, round, and reactive to light. Extraocular eye muscles are intact, and sclera are anicteric. Nose - moist nasal mucosa without discharge. Mouth - moist buccal mucosa. Oropharynx is nonerythematous and there is no tonsillar exudate or edema noted. Neck: Supple; no JVD, nuchal rigidity, cervical lymphadenopathy. Heart: Regular rate and rhythm. There is a normal S1 and S2 with no murmurs, clicks, or gallops appreciated. Lungs: Clear to auscultation bilaterally with no wheezes, rales, or rhonchi. Abdomen: Soft, completely nontender, nondistended, with good bowel sounds. There are no palpable pulsatile masses or hepatosplenomegaly. There is no guarding, rigidity, or rebound noted. Extremities: Left upper extremity: Sutures in place and appear intact with no discharge and no erythema or signs of infection Skin: warm and dry with good turgor and no rashes. ED COURSE: Times/Reassessments: 0315: The patient was evaluated in room C 11. A complete history and physical was performed. An order was placed for continuous cardiac monitoring. The patient was in a normal sinus rhythm at a rate of 76. The patient was nauseated and dry heaving. The patient was given 4 mg of Zofran ODT. Unfortunately, the patient vomited. An IV lock was initiated and labs were drawn as above. A twelve-lead EKG was obtained as described above. The patient will go for CT scan of the chest to rule out PE. 0405: Vital signs are stable at this time. IV fluids have been ordered. The patient will be given IV calcium gluconate, IV insulin, nebulized albuterol. 0500: The patient was resting comfortably at this time. I reviewed the results of the CT scan with the patient as well as from the laboratory studies. He is feeling much better at this time. I have personally spent greater than 75 minutes of critical care time in the direct management of this patient. This includes bedside care, interpretation of diagnostic studies, and testing, discussion with consultants, patient, and family members, and other required patient management activities. This 75 minutes is in excess of all separately billable procedures. Delmy Vallejo, Past Med/Surg History Medical History Anemia Anxiety Anxiety Diabetes mellitus type 1 Diabetic retinopathy of both eyes ESRD (end stage renal disease) on peritoneal dialysis HS (10 hour treatments) Gastroparesis Hepatitis C History of seizure seizure-like activity 02/14/2019 in setting of severe hyperglycemia (patient states he missed dialysis/insulin dose), DKA, confusion- lifeflighted to [place]/intubated/placed on ventilator. DKA managed with insulin drip on admission. EEG with no seizure activity noted. Neurology consulted and initially started patient on prophylactic Keppra but suspected seizure was complication of hyperglycemia and recommended weaning off anticonvulsants/advised no further neurology workup needed. Per patient, medication/dialysis compliance since discharge with glucoses in the range on 100's-200's on self-checks. Hypertension Peritonitis currently on intraperitoneal abx Seizure Surgical History H/O eye surgery Hx of tonsillectomy Hx of tooth extraction Hx of vitrectomy B/L; right vitrectomy: 05/26/18: LMA#5 at [facility] [place] Peritoneal dialysis catheter in place Family History Grandfather (Maternal) Diabetes Grandfather (Paternal) Diabetes Grandmother (Paternal) Diabetes Grandmother (Maternal) Diabetes Aunt Diabetes Uncle Diabetes Father Hypertension Brother Hypertension Social History Preferred Language: Italian Communication Ability: Effective Visual Impairment: Severely Limited Hearing Ability: Normal [employer] Required: No Beliefs That Will Affect Care: None Current Living Situation: Alone Current Living Situation Comment: son with patient Feels Safe at Home: Yes Smoking Status: Former smoker Tobacco Type: smokeless tobacco ; Second Hand Exposure: No ; Hx Alcohol Use: No Hx Substance Use: No Childhood Exposure to Second-Hand Smoke: No Diet Comment: diabetic caffeine: Yes Dental Care, Regularly: Yes Seatbelt Use: always Sunscreen Use: Yes Allergies Allergies Allergy/AdvReac Type Severity Reaction Status Date / Time No Known Drug Allergies Allergy Verified 09/29/19 16:00 Home Meds Home Medications Medication Instructions Recorded Confirmed bumetanide 1 mg PO QAM 11/03/18 10/09/19 clonazepam 0.5 mg PO BID 11/03/18 10/09/19 Velphoro 1,000 mg PO TIDM 03/24/19 10/09/19 Fransisca-Jj 0.8 mg PO DAILY 05/20/19 10/09/19 methadone 10 mg tablet 90 mg PO QAM tab 06/05/19 10/09/19 amlodipine 10 mg PO DAILY 10/09/19 10/09/19 sofosbuvir-velpatasvir [Epclusa] 1 tab PO DAILY 10/09/19 10/09/19 tramadol 50 mg PO TID PRN 10/09/19 10/09/19 Previous Rx's Medication Instructions Recorded Humalog U-100 Insulin 1 sliding scale dose SUBCUT UD PRN 05/22/19 #15 ml clonidine 1 patch TRANSDERMAL CQWK #5 ea 05/22/19 hydralazine 100 mg PO BID #60 tab 06/01/19 irbesartan 300 mg PO DAILY #30 tab 06/01/19 metoprolol succinate 75 mg PO BID #90 tab 06/01/19 blood sugar diagnostic #100 ea 06/08/19 blood-glucose meter #1 ea 06/08/19 lancets 30 gauge #100 ea 06/08/19 pen needle, diabetic 31 gauge x #100 ea 07/03/1906/13" Results & Data (ED) Vital Signs Vital Signs - 24 hr 10/09/19 02:53 10/09/19 03:07 10/09/19 03:29 Temperature 36.4 C L Temperature Source Oral Pulse Rate 76 77 76 Pulse Rate [Right Finger] Pulse Rate from SpO2 Sensor 77 Respiratory Rate 20 12 Respiratory Effort / Characteristics Non-Labored Respiratory Depth Normal Blood Pressure 131/70 127/69 Blood Pressure Mean 90 85 Pulse Oximetry 99 100 100 Oxygen Delivery Method Room Air Room Air Room Air Sepsis Recent Fever Within 48 Hours No Sepsis New/Unexplained Change in Mental Status No Sepsis Action Taken by Nursing No Action Required 10/09/19 03:38 10/09/19 04:00 10/09/19 04:50 Temperature Temperature Source Pulse Rate 75 75 Pulse Rate [Right Finger] 74 Pulse Rate from SpO2 Sensor 76 75 Respiratory Rate 12 17 12 Respiratory Effort / Characteristics Spontaneous SOB on Exertion Respiratory Depth Blood Pressure 132/68 132/67 Blood Pressure Mean 89 92 Pulse Oximetry 100 97 97 Oxygen Delivery Method Room Air Room Air Room Air Sepsis Recent Fever Within 48 Hours Sepsis New/Unexplained Change in Mental Status Sepsis Action Taken by Nursing 10/09/19 05:00 10/09/19 05:30 Temperature Temperature Source Pulse Rate 76 78 Pulse Rate [Right Finger] Pulse Rate from SpO2 Sensor 77 Respiratory Rate 17 16 Respiratory Effort / Characteristics Respiratory Depth Blood Pressure 127/74 131/67 Blood Pressure Mean 88 79 Pulse Oximetry 96 96 Oxygen Delivery Method Room Air Room Air Sepsis Recent Fever Within 48 Hours Sepsis New/Unexplained Change in Mental Status Sepsis Action Taken by Nursing Laboratory Data Result diagrams: 10/09/19 03:24 10/09/19 10:07 Lab Results 10/09/19 10/09/19 10/09/19 Range/Units 03:24 03:24 03:24 WBC 15.27 H (4.8-10.8) K/uL RBC 3.74 L (4.7-6.1) M/uL Hgb 11.7 L (14.0-18.0) g/dL Hct 35.0 L (42-52) % MCV 93.6 (80-100) fL MCH 31.3 (25-34) pg MCHC 33.4 (32-36) g/dL RDW Std Deviation 52.0 H (36.4-46.3) fL RDW Coeff of Rebecca 15.2 H (11.5-14.5) % Plt Count 285 (130-400) K/uL MPV 9.1 (7.4-10.4) fL Immature Gran % (Auto) 0.3 % Neut % (Auto) 82.6 % Lymph % (Auto) 7.1 % Castro % (Auto) 9.8 % Eos % (Auto) 0.1 % Baso % (Auto) 0.1 % Immature Gran # (Auto) 0.05 H (0.00-0.02) K/uL Neut # (Auto) 12.63 H (1.4-6.5) K/uL Lymph # (Auto) 1.08 L (1.2-3.4) K/uL Castro # (Auto) 1.49 H (0.11-0.59) K/uL Eos # (Auto) 0.01 (0-0.5) K/uL Baso # (Auto) 0.01 (0-0.2) K/uL PT 10.4 (9.0-12.0) Seconds INR 1.0 (0.9-1.1) APTT 26.8 (21.0-31.0) Seconds PTT Ratio 1.0 Sodium 127 L (136-145) mmol/L Potassium 7.0 H* (3.5-5.1) mmol/L Chloride 90 L (98-107) mmol/L Carbon Dioxide 20 L (21-32) mmol/L Anion Gap 17.0 H (3-11) BUN 57 H (7-18) mg/dl Creatinine 8.87 H* (0.6-1.4) mg/dl Est Cr Clr Drug Dosing Not Reportable Est GFR ( Amer) 8.0 Est GFR (Non-Af Amer) 6.9 BUN/Creatinine Ratio 6.4 L (10-20) Glucose 453 H* (70-99) mg/dl POC Glucose (70-99) mg/dl Calcium 10.0 (8.5-10.1) mg/dl Total Bilirubin 0.6 (0.2-1) mg/dl AST 14 L (15-37) U/L ALT 16 (12-78) U/L Alkaline Phosphatase 98 (45-117) U/L Troponin I < 0.015 (0-0.045) ng/ml Total Protein 8.3 H (6.4-8.2) gm/dl Albumin 3.8 (3.4-5.0) gm/dl Globulin 4.5 H (2.5-4.0) gm/dl Albumin/Globulin Ratio 0.8 L (0.9-2) Lipase 20 L (73-393) U/L Beta-Hydroxybutyric Acd 32.60 H (0.2-2.81) mg/dl Procalcitonin (0-0.5) ng/ml 10/09/19 10/09/19 10/09/19 Range/Units 03:24 03:54 03:55 WBC (4.8-10.8) K/uL RBC (4.7-6.1) M/uL Hgb (14.0-18.0) g/dL Hct (42-52) % MCV (80-100) fL MCH (25-34) pg MCHC (32-36) g/dL RDW Std Deviation (36.4-46.3) fL RDW Coeff of Rebecca (11.5-14.5) % Plt Count (130-400) K/uL MPV (7.4-10.4) fL Immature Gran % (Auto) % Neut % (Auto) % Lymph % (Auto) % Castro % (Auto) % Eos % (Auto) % Baso % (Auto) % Immature Gran # (Auto) (0.00-0.02) K/uL Neut # (Auto) (1.4-6.5) K/uL Lymph # (Auto) (1.2-3.4) K/uL Castro # (Auto) (0.11-0.59) K/uL Eos # (Auto) (0-0.5) K/uL Baso # (Auto) (0-0.2) K/uL PT (9.0-12.0) Seconds INR (0.9-1.1) APTT (21.0-31.0) Seconds PTT Ratio Sodium (136-145) mmol/L Potassium (3.5-5.1) mmol/L Chloride (98-107) mmol/L Carbon Dioxide (21-32) mmol/L Anion Gap (3-11) BUN (7-18) mg/dl Creatinine (0.6-1.4) mg/dl Est Cr Clr Drug Dosing Est GFR ( Amer) Est GFR (Non-Af Amer) BUN/Creatinine Ratio (10-20) Glucose (70-99) mg/dl POC Glucose 479 H* 474 H* (70-99) mg/dl Calcium (8.5-10.1) mg/dl Total Bilirubin (0.2-1) mg/dl AST (15-37) U/L ALT (12-78) U/L Alkaline Phosphatase (45-117) U/L Troponin I (0-0.045) ng/ml Total Protein (6.4-8.2) gm/dl Albumin (3.4-5.0) gm/dl Globulin (2.5-4.0) gm/dl Albumin/Globulin Ratio (0.9-2) Lipase (73-393) U/L Beta-Hydroxybutyric Acd (0.2-2.81) mg/dl Procalcitonin 2.50 H (0-0.5) ng/ml 10/09/19 10/09/19 Range/Units 05:23 05:24 WBC (4.8-10.8) K/uL RBC (4.7-6.1) M/uL Hgb (14.0-18.0) g/dL Hct (42-52) % MCV (80-100) fL MCH (25-34) pg MCHC (32-36) g/dL RDW Std Deviation (36.4-46.3) fL RDW Coeff of Rebecca (11.5-14.5) % Plt Count (130-400) K/uL MPV (7.4-10.4) fL Immature Gran % (Auto) % Neut % (Auto) % Lymph % (Auto) % Castro % (Auto) % Eos % (Auto) % Baso % (Auto) % Immature Gran # (Auto) (0.00-0.02) K/uL Neut # (Auto) (1.4-6.5) K/uL Lymph # (Auto) (1.2-3.4) K/uL Castro # (Auto) (0.11-0.59) K/uL Eos # (Auto) (0-0.5) K/uL Baso # (Auto) (0-0.2) K/uL PT (9.0-12.0) Seconds INR (0.9-1.1) APTT (21.0-31.0) Seconds PTT Ratio Sodium (136-145) mmol/L Potassium (3.5-5.1) mmol/L Chloride (98-107) mmol/L Carbon Dioxide (21-32) mmol/L Anion Gap (3-11) BUN (7-18) mg/dl Creatinine (0.6-1.4) mg/dl Est Cr Clr Drug Dosing Est GFR ( Amer) Est GFR (Non-Af Amer) BUN/Creatinine Ratio (10-20) Glucose (70-99) mg/dl POC Glucose 431 H* 479 H* (70-99) mg/dl Calcium (8.5-10.1) mg/dl Total Bilirubin (0.2-1) mg/dl AST (15-37) U/L ALT (12-78) U/L Alkaline Phosphatase (45-117) U/L Troponin I (0-0.045) ng/ml Total Protein (6.4-8.2) gm/dl Albumin (3.4-5.0) gm/dl Globulin (2.5-4.0) gm/dl Albumin/Globulin Ratio (0.9-2) Lipase (73-393) U/L Beta-Hydroxybutyric Acd (0.2-2.81) mg/dl Procalcitonin (0-0.5) ng/ml Administered Medications Discontinued Medications Albuterol (Ventolin 0.083% 2.5mg/3ml) 2.5 mg NEB NOW STA Stop: 10/09/19 04:18 Last Admin: 10/09/19 04:49 Dose: 2.5 mg Documented by: [id number] Amlodipine Besylate (Norvasc) 10 mg PO DAILY AYESHA Stop: 11/08/19 08:59 Last Admin: 10/09/19 08:59 Dose: 10 mg Documented by: [id number] Bumetanide (Bumex) 1 mg PO QAM AYESHA Stop: 11/08/19 08:59 Last Admin: 10/09/19 08:59 Dose: 1 mg Documented by: [id number] Calcium Gluconate (Calcium Gluconate 10%) Confirm Administered Dose 1,000 mg IV .Sandbox-MED ONE Stop: 10/09/19 04:36 Last Admin: 10/09/19 04:42 Dose: Not Given Documented by: [id number] Clonazepam (Klonopin) 0.5 mg PO BID AYESHA Stop: 11/08/19 08:59 Last Admin: 10/09/19 08:59 Dose: 0.5 mg Documented by: [id number] Heparin Sodium (Porcine) (Heparin Iv Bolus) 1,000 units IV ONE ONE Stop: 10/09/19 07:34 Last Admin: 10/09/19 09:06 Dose: Not Given Documented by: [id number] Heparin Sodium (Porcine) (Heparin Iv Bolus) 400 units IV Q1H AYESHA Stop: 10/09/19 09:46 Last Admin: 10/09/19 13:00 Dose: Not Given Documented by: [id number] Admin: 10/09/19 12:05 Dose: Not Given Documented by: [id number] Admin: 10/09/19 10:05 Dose: Not Given Documented by: [id number] Sodium Chloride (Nss) 500 mls @ 999 mls/hr IV .Q31M ONE Stop: 10/09/19 04:14 Last Infusion: 10/09/19 05:12 Dose: 0 mls/hr Documented by: [id number] Admin: 10/09/19 04:40 Dose: 999 mls/hr Documented by: [id number] Calcium Gluconate 1,000 mg/ (Sodium Chloride) 60 mls @ 240 mls/hr IV NOW STA Stop: 10/09/19 04:31 Last Infusion: 10/09/19 05:12 Dose: 0 mls/hr Documented by: [id number] Admin: 10/09/19 04:42 Dose: 240 mls/hr Documented by: [id number] Insulin Human Regular 250 (units/ Sodium Chloride) 250 mls @ 0 mls/hr IV .Q0M AYESHA; Protocol Stop: 11/08/19 05:35 Last Titration: 10/09/19 11:54 Dose: 0 units/hr, 0 mls/hr Documented by: [id number] Cosigned by: [id number] Titration: 10/09/19 11:00 Dose: 3.5 units/hr, 3.5 mls/hr Documented by: [id number] Cosigned by: [id number] Titration: 10/09/19 10:09 Dose: 5.9 units/hr, 5.9 mls/hr Documented by: [id number] Cosigned by: [id number] Titration: 10/09/19 09:14 Dose: 5.9 units/hr, 5.9 mls/hr Documented by: [id number] Cosigned by: [id number] Titration: 10/09/19 08:07 Dose: 4.9 units/hr, 4.9 mls/hr Documented by: [id number] Cosigned by: [id number] Titration: 10/09/19 07:00 Dose: 4.1 units/hr, 4.1 mls/hr Documented by: [id number] Cosigned by: [id number] Admin: 10/09/19 06:04 Dose: 3.4 units/hr, 3.4 mls/hr Documented by: [id number] Cosigned by: [id number] Sodium Chloride (1/2 Nss) 1,000 mls @ 100 mls/hr IV .Q10H AYESHA Stop: 11/08/19 05:35 Last Infusion: 10/09/19 10:35 Dose: 0 mls/hr Documented by: [id number] Admin: 10/09/19 06:03 Dose: 100 mls/hr Documented by: [id number] Vancomycin HCl 1,250 mg/ (Sodium Chloride) 275 mls @ 125 mls/hr IV NOW ONE Stop: 10/09/19 09:26 Last Infusion: 10/09/19 10:36 Dose: 0 mls/hr Documented by: [id number] Infusion: 10/09/19 10:08 Dose: 0 mls/hr Documented by: [id number] Admin: 10/09/19 07:58 Dose: 125 mls/hr Documented by: [id number] Piperacillin Sod/Tazobactam (Sod 3.375 gm/ Dextrose) 100 ml in 115 mls @ 230 mls/hr IV TODAY@0700 AYESHA Stop: 10/09/19 07:29 Last Infusion: 10/09/19 10:36 Dose: 0 mls/hr Documented by: [id number] Admin: 10/09/19 09:11 Dose: 230 mls/hr Documented by: [id number] Insulin Aspart (Novolog Flexpen) 0 units SC ACHS AYESHA Stop: 11/08/19 07:29 Last Admin: 10/09/19 14:27 Dose: 3 units Documented by: [id number] Cosigned by: [id number] Admin: 10/09/19 12:00 Dose: Not Given Documented by: [id number] Cosigned by: [id number] Admin: 10/09/19 08:01 Dose: Not Given Documented by: [id number] Cosigned by: [id number] Insulin Glargine (Lantus Solostar Pen) 18 units SC NOW ONE Stop: 10/09/19 10:16 Last Admin: 10/09/19 10:38 Dose: 18 units Documented by: [id number] Cosigned by: [id number] Insulin Human Regular (Novolin R U-100 Per Unit) 10 units IV NOW STA Stop: 10/09/19 04:18 Last Admin: 10/09/19 04:40 Dose: 10 units Documented by: [id number] Cosigned by: [id number] Ioversol (Optiray 320 125ml) 118 ml IV ONCE PRN PRN Reason: Interaction Checking Stop: 10/13/19 04:14 Last Admin: 10/09/19 04:16 Dose: 1 ml Documented by: [id number] Methadone HCl (Dolophine) 90 mg PO QAM [facility] Stop: 10/23/19 08:59 Last Admin: 10/09/19 08:59 Dose: 90 mg Documented by: [id number] Metoprolol Succinate (Toprol Xl) 75 mg PO BID [facility] Stop: 11/08/19 08:59 Last Admin: 10/09/19 08:59 Dose: 75 mg Documented by: [id number] Miscellaneous (Insulin Protocol Dka Goal Range) 1 ea N/A ONE ONE Stop: 10/09/19 05:37 Last Admin: 10/09/19 05:39 Dose: 1 ea Documented by: [id number] Miscellaneous (Order Awaiting Action) 1 ea N/A QS [facility] Stop: 11/08/19 07:59 Last Admin: 10/09/19 09:01 Dose: 1 ea Documented by: [id number] Miscellaneous (Order Awaiting Action) 1 ea N/A QS [facility] Stop: 11/08/19 07:59 Last Admin: 10/09/19 09:01 Dose: 1 ea Documented by: [id number] Miscellaneous Information (Dc All Previously Ordered Diabetes Meds) 1 ea N/A ONE ONE Stop: 10/09/19 05:37 Last Admin: 10/09/19 05:39 Dose: 1 ea Documented by: [id number] Ondansetron HCl (Zofran Odt) Confirm Administered Dose 4 mg .ROUTE .STK-MED ONE Stop: 10/09/19 03:17 Last Admin: 10/09/19 03:33 Dose: Not Given Documented by: [id number] Ondansetron HCl (Zofran) 4 mg IV NOW STA Stop: 10/09/19 03:27 Last Admin: 10/09/19 03:33 Dose: 4 mg Documented by: [id number] Sevelamer HCl (Renagel) 1,600 mg PO TIDM AYESHA Stop: 11/08/19 11:59 Last Admin: 10/09/19 14:22 Dose: 1,600 mg Documented by: [id number] Vitamin B Complex/Folic Acid (Nephrocaps) 1 cap PO DAILY AYESHA Stop: 11/08/19 08:59 Last Admin: 10/09/19 09:00 Dose: Not Given Documented by: [id number] Discharge Plan Visit Data *Final* Discharge Date/Time: 10/09/19 06:10 Chief Complaint: Chest Pain Stated Complaint: CHEST PAIN,BURNING FEELING ED Provider: Delmy Vallejo Discharge Problem: Acute hyperkalemia, Hyponatremia, Acute hyperglycemia, Substernal chest pain Patient Disposition: Admitted As Inpatient Condition: Good Discharge Instructions Interventions: ED Discharge Assessment Last Done: 10/09/19 06:10
[2019-10-09] MEDS ORDERED: INSULIN REGULAR 250 UNITS in SODIUM CHLORIDE 0.9% 247.5 ML IV SCH (05:36)
[2019-10-09] MEDS ORDERED: SODIUM CHLORIDE 0.45 % 1,000 ML IV SCH (05:36)
[2019-10-09] MEDS ORDERED: ICU PROTOCOL FOR HYPERGLYCEMIA PRN (05:36)
[2019-10-09] MEDS ORDERED: DKA GOAL RANGE 150-250 mg/dl ONE (05:36)
[2019-10-09] MEDS ORDERED: DC ALL PREVIOUSLY ORDERED DIABETES MEDS ONE (05:36)
--- NOTE | 2019-10-09 05:44 | History & Physical Report ---
Date of Service October 09, 2019 Assessment & Plan (1) Anemia: Bernard Jones is a 34 year old man with a past medical history significant for DMI ESRD on hemodialysis TThSa, History of opiate abuse on methadone, Hepatitis C, HTN chronic pain and seizures who is here today with chest pain, DKA, and hyperkalemia with ECG changes Hyperkalemia with ECG changes Patient with potassium of 7 on admission with clear ECG changes of a widened QRS complex and peaked T waves This is likely secondary to combination of DKA plus being overdue for his dialysis Treated with 2 g of calcium gluconate in the emergency department as well as 1 albuterol nebulizer, Patient currently on insulin drip which should decrease potassium, patient also to have dialysis scheduled for this morning Dr. English consulted DKA Patient with sugars as high as 479, elevated anion gap of 17, and ketones present Given 10 units of IV insulin initially did not improve sugar now placed on insulin drip per protocol, BMPs electrolytes and VBG's every 4 hours Currently running half-normal saline at 100 mils per hour Based on past admissions for similar issues expect to correct quickly and can be transitioned back to his insulin pump May have been triggered by his surgery or current infection with elevated white count and signs of possible pneumonia on CT chest End-stage renal disease Patient due for dialysis, contacted clinical health care specialist to help schedule dialysis early this morning will call 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 Patient hyponatremic at 127, hyperkalemic at 7.0 bicarb 20, hyper uremic with a BUN 57 creatinine of 8.87 Continuing his renal vitamins and PHOS binder BMP every 4 hours Currently getting half normal saline at 100 mils per hour, may need to stop fluid if patient begins to look overloaded currently does not appear to be overloaded Chest pain Initial troponin negative, will continue to trend every 6 hours Pain is nonreproducible, could be secondary to his long procedure yesterday, his possible current pneumonia, or his chronic pain syndrome Possible infectious process Patient with elevated white count and evidence of consolidation in right upper lobe on CT as well as subcutaneous air and fat streaking near surgical site Unsure if infectious processes currently happening but will cover with Vanco and Zosyn while patient is currently ill will check procalcitonin and lactate Hypertension Currently well controlled at 137/75 Continuing home amlodipine, Bumex, irbesartan, hydralazine, metoprolol Hepatitis C Continuing current treatment with Epclusa History of Opiate Abuse Continuing home methadone 10 mg daily DVT PPx: Lovenox F/E/N: 1/2 NSS at 100 mls/hour Dispo: ICU for control of his DKA and urgent dialysis Full Code (2) Anxiety: (3) End stage renal disease on dialysis due to type 1 diabetes mellitus: (4) Renal failure: (5) Hypertension: (6) Chronic pain syndrome: (7) Hepatitis C: (8) DKA (diabetic ketoacidoses): (9) Hyperkalemia: (10) Prolongation of QRS complex on electrocardiography: History of Present Illness Chief Complaint: Chest Pain Primary Care Provider: PIPER Caldera Bernard Jones is a 34 year old man with a past medical history significant for DMI ESRD on hemodialysis TThSa, History of opiate abuse on methadone, Hepatitis C, HTN chronic pain and seizures who presents today with chest pain. Mr. Jones had an 8 hour procedure yesterday to place a fistula in his left upper extremity at outside facility. He skipped his usual dialysis day that to have it done. The procedure went well, he was feeling very weak after the procedure and went to bed. His blood sugar was slightly high but in the 100's when he went to sleep. When he woke up spontaneously at around 1:30 this morning he noticed a severe chest pain across his entire chest. This was followed by a second burning sensation that is present from his belly button to the top of his head. He also is feeling short of breath, has had nausea and vomiting and has felt chills. on admission to emergency department patient's vital signs were all wnl other than a slight tachypnea of 20 breaths per minute. Lab work was significant for an elevated white count of 15.27, Anemia of 11.7 which is about his baseline, hyponatremia of 127, a market hypokalemia of 7.0 bicarb 20, anion gap 17, BUN 57, creatinine of 8.87 a glucose of 453 which is since gone up to 479 after 10 units of IV insulin. Beta hydroxybutyric acid of 32.6. CT of the chest negative for PE, however does show a area of groundglass opacity in the right upper lobe and fat stranding and subcutaneous air in the left axilla near his surgery site. Patient was given 2 g of calcium gluconate 2.5 mg nebulizer of albuterol and 10 units of IV insulin in emergency department. Patient also received 500 mL of normal saline bolus. ECG obtained showing widened QRS complex and peaked T waves. Allergies Allergy/AdvReac Type Severity Reaction Status Date / Time No Known Drug Allergies Allergy Verified 09/29/19 16:00 Home Medications Home Medications Medication Instructions Recorded Confirmed Type bumetanide 1 mg PO QAM 11/03/18 10/09/19 History clonazepam 0.5 mg PO BID 11/03/18 10/09/19 History Velphoro 1,000 mg PO TIDM 03/24/19 10/09/19 History Fransisca-Jj 0.8 mg PO DAILY 05/20/19 10/09/19 History Humalog U-100 Insulin 1 sliding scale dose SUBCUT UD PRN 05/22/19 10/09/19 Rx #15 ml clonidine 1 patch TRANSDERMAL CQWK #5 ea 05/22/19 10/09/19 Rx hydralazine 100 mg PO BID #60 tab 06/01/19 10/09/19 Rx irbesartan 300 mg PO DAILY #30 tab 06/01/19 10/09/19 Rx metoprolol succinate 75 mg PO BID #90 tab 06/01/19 10/09/19 Rx methadone 10 mg tablet 90 mg PO QAM tab 06/05/19 10/09/19 History blood sugar diagnostic #100 ea 06/08/19 09/29/19 Rx blood-glucose meter #1 ea 06/08/19 09/29/19 Rx lancets 30 gauge #100 ea 06/08/19 09/29/19 Rx pen needle, diabetic 31 gauge x #100 ea 07/03/19 09/29/19 Rx 1/4" amlodipine 10 mg PO DAILY 10/09/19 10/09/19 History sofosbuvir-velpatasvir [Epclusa] 1 tab PO DAILY 10/09/19 10/09/19 History tramadol 50 mg PO TID PRN 10/09/19 10/09/19 History Past Med/Surg History Medical History Anemia Anxiety Anxiety Diabetes mellitus type 1 Diabetic retinopathy of both eyes ESRD (end stage renal disease) on peritoneal dialysis HS (10 hour treatments) Gastroparesis Hepatitis C History of seizure seizure-like activity 02/14/2019 in setting of severe hyperglycemia (patient states he missed dialysis/insulin dose), DKA, confusion- lifeflighted to [facility]/intubated/placed on ventilator. DKA managed with insulin drip on admission. EEG with no seizure activity noted. Neurology consulted and initially started patient on prophylactic Keppra but suspected seizure was complication of hyperglycemia and recommended weaning off anticonvulsant s/advised no further neurology workup needed. Per patient, medication/dialysis compliance since discharge with glucoses in the range on 100's-200's on self-checks. Hypertension Peritonitis currently on intraperitoneal abx Seizure Surgical History H/O eye surgery Hx of tonsillectomy Hx of tooth extraction Hx of vitrectomy B/L; right vitrectomy: 05/26/18: LMA#5 at [facility] [place] Peritoneal dialysis catheter in place Family History Grandfather (Maternal) Diabetes Grandfather (Paternal) Diabetes Grandmother (Paternal) Diabetes Grandmother (Maternal) Diabetes Aunt Diabetes Uncle Diabetes Father Hypertension Brother Hypertension Social History Preferred Language: Lithuanian Communication Ability: Effective Visual Impairment: Severely Limited Hearing Ability: Normal Broommaking Supervisor Required: No Beliefs That Will Affect Care: None Current Living Situation: Alone Current Living Situation Comment: son with patient Feels Safe at Home: Yes Smoking Status: Former smoker Tobacco Type: smokeless tobacco ; Second Hand Exposure: No ; Hx Alcohol Use: No Hx Substance Use: No Childhood Exposure to Second-Hand Smoke: No Diet Comment: diabetic caffeine: Yes Dental Care, Regularly: Yes Seatbelt Use: always Sunscreen Use: Yes Review of Systems Review of Systems: Review of systems somewhat limited due to patient's leth argic state Constitutional: Patient endorses chills, sweats, and general unwell feeling Eyes: No complaints ENMT: No complaints Respiratory: Patient feels short of breath difficulty breathing difficulty catching breath, and pain affecting inspiration Cardio: Patient with chest pain across entirety of chest as well as burning sensation from bellybutton to top of head, patient also feeling short of breath, very weak, not able to exert himself, not able to tell whether chest pain is linked to physical activity but it is present at rest, patient denies syncope patient denies any swelling or edema of the lower limbs patient denies orthopnea GI: Patient versus vomiting and nausea, going to the bathroom okay Physical Exam Constitutional: Constitutional: Weak appearing lethargic mildly obtunded gentleman lying in bed in moderate distress Eyes: Pupils equal round reactive to light accommodation extraocular muscle movements intact ENMT: No abnormality detected Respiratory: Lung sounds vesicular across all lung healy, mildly increased work of breathing noted, regular rate no tachypnea Cardiovascular: Heart sounds dual, regular rate regular rhythm, no murmurs rubs skips or gallops, no lower extremity edema Skin: Warm dry and well-perfused extremities Neurologic: Patient is slightly obtunded, very slow to answer questions, though he is oriented to person place time and situation Results & Data Results & Data ([facility]) Vital Signs (Past 12 Hours) Vital Signs Temp Pulse Pulse Resp BP Pulse Ox 10/09/19 05:00 76 17 127/74 96 10/09/19 04:50 74 12 97 10/09/19 04:00 75 17 132/67 97 10/09/19 03:38 75 12 132/68 100 10/09/19 03:29 76 100 10/09/19 03:07 77 12 127/69 100 10/09/19 02:53 36.4 C L 76 20 131/70 99 Critical Care Time Critical Care Time: Yes Total Critical Care Time: 45 Total critical care time was 45 minutes Supervising Physician Co-Signing Physician Notes Attending addendum: I have physically seen this patient, have supervised the medical residents activities, and agree with the H&P unless as otherwise noted. Assessment and Plan: Hyperkalemia/ESRD on HD/status post fistula repair left upper extremity- Admission to ICU. Usual dialysis days are Saturday, and Saturday, however, patient missed dialysis on due to being in surgery for 7 hours. Arrangements were made for dialysis first thing on Saturday morning. Management of elevated potassium with calcium gluconate, D50 with 10 of regular insulin IV, albuterol nebulizer, and frequent laboratory follow-up. DKA- Glucose 479 upon admission, given 10 units regular insulin IV, and place on insulin infusion, until improved, with plans to return to insulin pump. Gentle rehydration with IV fluids, as will be able to have fluid removed via dialysis in the a.m. Recent left upper extremity fistula surgery- Incision looks clean, but will need to be followed for potential secondary infection. Pneumonia- Treat as healthcare associated. Empiric vancomycin IV and Zosyn IV. Remaining orders and notations as noted. Consult [employer] professional sports team. Resident Activity Tracking Resident Involvement: Resident Care Provided Care Provided: Adult Hospital Medicine (1) Renal failure Renal failure chronicity: unspecified chronicity Qualified Code(s): N19 - Unspecified kidney failure (2) Hypertension Hypertension type: essential hypertension Qualified Code(s): I10 - Essential (primary) hypertension
[2019-10-09] MEDS ORDERED: DEXTROSE 50% 50 ML SYRINGE IV PRN ×2 (06:15→12:23)
[2019-10-09] MEDS ORDERED: CARBOHYDRATES FOR HYPOGLYCEMIA PO PRN (06:15)
[2019-10-09] MEDS ORDERED: GLUCOSE 10 TABS/TUBE PO PRN (06:15)
[2019-10-09] MEDS ORDERED: GLUCOSE 40% GEL 15 GM TUBE PO PRN (06:15)
[2019-10-09] MEDS ORDERED: GLUCAGON FOR INJ 1 MG VIAL SQ PRN (06:15)
--- NOTE | 2019-10-09 06:18 | Critical Care Consultation ---
Date of Consultation October 09, 2019 Assessment & Plan (1) Admitted to intensive care unit: Reason Critically Ill: 34-year-old male presenting with hyperkalemia in the setting of missed hemodialysis as well as hyperglycemia with concerns of DKA. NEURO - * CAM ICU: NEGATIVE * Chronic pain: Continue home medications. CARDIAC/VASCULAR - * EKG changes in the setting of hyperkalemia - Peaked T waves with widening QRS complex. * Patient would ultimately benefit from urgent hemodialysis as he did miss his scheduled dialysis yesterday. * Initially treated with calcium gluconate, insulin, dextrose, and albuterol nebulizer. * Repeat EKG upon arrival in the ICU. * Please see renal. * EKG: Wide QRS complex with peak T waves. * Monitor on telemetry. RESPIRATORY - * No acute respiratory symptoms. * Saturating well on room air. GI/NUTRITION - * Diabetic diet. RENAL/LYTES - * Hyperkalemia: * In the setting of skipped hemodialysis. * With concerning EKG changes including peaked T waves and widened QRS complex, patient will benefit from urgent/emergent hemodialysis. * Resident to reach out to nephrology to help facilitate early hemodialysis today. * Initially treated potassium with appropriate medications. * Consider addition of increasing doses of calcium gluconate and/or calcium chloride, particular in the setting of EKG changes. * Consider addition of bicarbonate pushes if patient with persistent concerning EKG changes. * Will add CPK in the setting of recent surgical intervention and abrupt elevation of potassium. * Appreciate nephrology guidance. * End-stage renal disease on hemodialysis: * Per nephrology recommendations. - * Uncertain if able to make urine. Monitor closely. ENDO - * High anion gap metabolic acidosis: * Likely 2/2 Hyperglycemia and elevated BUN. * No significant DKA per labs and symptoms. * Agree with initial bolus of insulin. Would be cautious with continued doses as the patient is likely to become hypoglycemic rapidly in the setting of kidney disease. * Received fluid bolus as well as appropriate dose of initial bolus of insulin. * Patient will likely not require persistent insulin drip. * Will reassess BSGs frequently. * BSGs per unit protocol. ISS --> gtt per unit policy. HEME - * Chronic anemia in the setting of renal dz. ID - * No concern of infectious sources or s/s at this time. LINES/IV ACCESS - * PIVs x1 * RIGHT sided chest Permcath. DVT PROPHYLAXIS - * Heparin * SCDs I have personally spent 35 minutes of critical care time in the direct management of this patient. This is a life/limb threatening event. This includes time spent evaluating patient, direct bedside care, chart review, placing orders, interpretation of diagnostic studies, discussion with consultants, patient, and family members, as well as other required patient management activities. This time is exclusive of all separately billable procedures, and teaching time and separate from and in addition to any other critical care service time. Thank you for allowing us to participate in the care of this patient. Please refer to my attending physician's documentation for any further recommendations. (2) Hyperkalemia: (3) End stage renal disease on dialysis due to type 1 diabetes mellitus: (4) Prolonged Q-T interval on ECG: (5) DKA (diabetic ketoacidoses): (6) Acute electrocardiogram changes: Supervising Physician Co-Signing Physician Notes I have seen and evaluated the patient. He is already on the dialysis circuit and tolerating it well, he feels back to his baseline. Patient underwent a surgical procedure to his fistula yesterday, he had 2 remove his insulin pump and reports he was unable to replace it after receiving sedation yesterday. He had a typical prodrome he experiences with elevated potassium levels, that immediately improved upon receiving treatment in the emergency department. He came for evaluation very late last night because of this prodrome; however, he did have dialysis arranged for today and tomorrow. Patient was advised his potassium may elevate after the surgical procedure, we are sending a records release to [facility]AY[facility] Bae/Duglas Roann for the op report and anesthesia record. Patient reports he did receive a breathing tube during the procedure, I anticipate he was given a depolarizing muscular blockade for intubation and procedure which may have elevated his potassium. This information should not preclude his treatment and/or discharge. He is knowledgeable in his disease process as well as management, his hyperglycemia is improving and I feel he would be able to manage this at home as well. The patient prefers to be discharged today if possible. We discussed his medications, he receives routine EKGs for management of his QTC while on methadone, the methadone dose has remained the same. He is receiving active treatment for hepatitis C. There is a remote (years) history of substance abuse however he reports that he was negative for hepatitis C and HIV after his last use for an extended period, in the interim he had received a blood transfusion prior to being informed of his sero-positivity for hepatitis C. We discussed goals of treatment in event of cardiac arrest, I agree with decision to remain full code however he does not want long-term life-sustaining intervention should he be significantly brain-damaged, he has not filled a formal healthcare power of estate planning attorney; he has no adult children, is not , his parents have both , he would like information regarding healthcare power of estate planning attorney designation as he has 2 stepbrothers and 1 biological brother and prefers to have that clearly designated. Not withstanding the patient is stable for downgrade out of the ICU after dialysis if not discharged home. History of Present Illness History of Present Illness Patient is a 34-year-old male with a significant past medical history of end- stage renal disease secondary to poorly controlled insulin-dependent diabetes who presented to the emergency department with complaints of pain extending from his suprapubic area to his chest. This awoke him from sleep. The patient previously was utilizing peritoneal dialysis which was discontinued in May. Permacath was placed in May and has been utilized for his hemodialysis on Tuesdays, , and Saturdays. The patient underwent transposition of his fistula to the LEFT upper extremity yesterday on 10/07 at [facility]. He was subsequently discharged home. Patient reports that he did provide himself with insulin last evening as his numbers were elevated, however he reports elevated blood glucose this evening as well. Other than the abdomen chest discomfort he denies any complaints of headaches, dizziness, lightheadedness, palpitations, shortness of breath, cough, nausea, or vomiting. Patient has been taking Ultram as of last week secondary to complaints of LEFT-sided leg pain. He had an outpatient ultrasound did not demonstrate DVT. CTA of the chest did not demonstrate PE. Patient was noted to be hyperkalemic in the emergency department. He was treated with calcium gluconate, insulin, and albuterol nebulizer as he did have peaked T waves and widening of the QRS complex. Upon evaluation in the emergency department, the patient is awake, alert, and oriented. He reports that the pain that brought him in has completely resolved at this point. He has not felt this pain previously. He denies any changes in diet recently. He did miss his hemodialysis yesterday for his surgery. Patient reports that with a PSG of greater than 400 he would have treated himself with the 10 units insulin provided in the emergency department. Patient offers no new complaints at this time. Specifically, the patient denies any recent upper respiratory infections, fevers, chills, cough, sore throat, or exposure to COVID individuals. Allergies Allergy/AdvReac Type Severity Reaction Status Date / Time No Known Drug Allergies Allergy Verified 09/29/19 16:00 Home Medications Home Medications Medication Instructions Recorded Confirmed Type bumetanide 1 mg PO QAM 11/03/18 10/09/19 History clonazepam 0.5 mg PO BID 11/03/18 10/09/19 History Velphoro 1,000 mg PO TIDM 03/24/19 10/09/19 History Fransisca-Jj 0.8 mg PO DAILY 05/20/19 10/09/19 History Humalog U-100 Insulin 1 sliding scale dose SUBCUT UD PRN 05/22/19 10/09/19 Rx #15 ml clonidine 1 patch TRANSDERMAL CQWK #5 ea 05/22/19 10/09/19 Rx hydralazine 100 mg PO BID #60 tab 06/01/19 10/09/19 Rx irbesartan 300 mg PO DAILY #30 tab 06/01/19 10/09/19 Rx metoprolol succinate 75 mg PO BID #90 tab 06/01/19 10/09/19 Rx methadone 10 mg tablet 90 mg PO QAM tab 06/05/19 10/09/19 History blood sugar diagnostic #100 ea 06/08/19 09/29/19 Rx blood-glucose meter #1 ea 06/08/19 09/29/19 Rx lancets 30 gauge #100 ea 06/08/19 09/29/19 Rx pen needle, diabetic 31 gauge x #100 ea 07/03/19 09/29/19 Rx 1/4" amlodipine 10 mg PO DAILY 10/09/19 10/09/19 History sofosbuvir-velpatasvir [Epclusa] 1 tab PO DAILY 10/09/19 10/09/19 History tramadol 50 mg PO TID PRN 10/09/19 10/09/19 History Patient History Medical History Anemia Anxiety Anxiety Diabetes mellitus type 1 Diabetic retinopathy of both eyes ESRD (end stage renal disease) on peritoneal dialysis HS (10 hour treatments) Gastroparesis Hepatitis C History of seizure seizure-like activity 02/14/2019 in setting of severe hyperglycemia (patient states he missed dialysis/insulin dose), DKA, confusion- lifeflighted to [place]/intubated/placed on ventilator. DKA managed with insulin drip on admission. EEG with no seizure activity noted. Neurology consulted and initially started patient on prophylactic Keppra but suspected seizure was complication of hyperglycemia and recommended weaning off anticonvulsants/advised no further neurology workup needed. Per patient, medication/dialysis compliance since discharge with glucoses in the range on 100's-200's on self-checks. Hypertension Peritonitis currently on intraperitoneal abx Seizure Surgical History H/O eye surgery Hx of tonsillectomy Hx of tooth extraction Hx of vitrectomy B/L; right vitrectomy: 05/26/18: LMA#5 at [facility] Peritoneal dialysis catheter in place Family History Grandfather (Maternal) Diabetes Grandfather (Paternal) Diabetes Grandmother (Paternal) Diabetes Grandmother (Maternal) Diabetes Aunt Diabetes Uncle Diabetes Father Hypertension Brother Hypertension Social History Preferred Language: Estonian Communication Ability: Effective Visual Impairment: Severely Limited Hearing Ability: Normal Fingernail Former Required: No Beliefs That Will Affect Care: None Current Living Situation: Alone Current Living Situation Comment: son with patient Feels Safe at Home: Yes Safety Concerns: Feels Safe At This Time Smoking Status: Former smoker Tobacco Type: smokeless tobacco ; Second Hand Exposure: No ; Hx Alcohol Use: No Hx Substance Use: No Childhood Exposure to Second-Hand Smoke: No Diet Comment: diabetic caffeine: Yes Dental Care, Regularly: Yes Seatbelt Use: always Sunscreen Use: Yes Review of Systems Review of Systems: A complete 10 point review of systems was reviewed with the patient with pertinent positives and negatives as per history of present illness. All else were negative. Physical Exam Physical Exam: VITAL SIGNS - Vital signs and nursing notes were reviewed. GENERAL - 34-year-old male appearing older than his stated age who is in no acute distress. Communicates well with provider and answers questions appropriately. SKIN - Without rashes. Dressing to the LEFT upper extremity clean, dry, and intact. HEAD - NC/AT. EYES - PERRL with EOMI bilaterally. Sclera anicteric. EARS - No deformities of external structures noted on gross examination bilaterally. NOSE - Midline and without cyanosis. No epistaxis or purulent drainage noted. MOUTH/OROPHARYNX - Without perioral cyanosis. NECK - Neck with FROM. No nuchal rigidity. LUNGS - Chest wall symmetric without accessory muscle use, intercostals retractions, or central cyanosis. Normal vesicular breath sounds CTA B/L. No wheezes, rales, or rhonchi appreciated. Permcath present in the LEFT sided chest. CARDIAC - RRR with S1/S2. No murmur, rubs, or gallops appreciated. ABDOMEN - Abdominal contour flat without pulsations or visible masses. BS normoactive all four quadrants. No tenderness, palpable masses, hepatospl enomegaly, or ascites noted. EXTREMITIES - No clubbing or peripheral cyanosis. No pretibial edema present. +3/5 radial and dorsalis pedis pulses palpated throughout. NEUROLOGIC - Cranial nerves II through XII grossly intact. No focal neurological deficits. PSYCH - A&Ox3 and cooperates fully with examiner. Pt is very pleasant and interacts well with examiner. Results & Data Results & Data ([facility]) Vital Signs (Past 12 Hours) Vital Signs Temp Pulse Pulse Resp BP Pulse Ox 10/09/19 06:00 76 18 137/75 98 10/09/19 05:30 78 16 131/67 96 10/09/19 05:00 76 17 127/74 96 10/09/19 04:50 74 12 97 10/09/19 04:00 75 17 132/67 97 10/09/19 03:38 75 12 132/68 100 10/09/19 03:29 76 100 10/09/19 03:07 77 12 127/69 100 10/09/19 02:53 36.4 C L 76 20 131/70 99 Coding Level of Care Code Critical Care 1st 30-74 mins Diagnoses Admitted to intensive care unit Z78.9 Hyperkalemia E87.5 End stage renal disease on dialysis due to type 1 diabetes mellitus E10.22; N18.6; Z99.2 Prolonged Q-T interval on ECG R94.31 DKA (diabetic ketoacidoses) E11.10 Acute electrocardiogram changes R94.31 Time Spent (min) 35
[2019-10-09] MEDS ORDERED: TRAMADOL HCL 50 MG TABLET PO PRN (06:32)
[2019-10-09] MEDS ORDERED: PENDING D5 1/2NS+20mEq KCL IVF SCH (06:32)
[2019-10-09] MEDS ORDERED: VANCOMYCIN CONSULT ACTIVE PRN ×2 (06:32)
[2019-10-09] MEDS ORDERED: PIPERACILL/TAZOBAC CONSULT ACTIVE PRN (06:32)
[2019-10-09] MEDS ORDERED: PENDING 1/2NSS+20mEq KCL IVF SCH (06:32)
[2019-10-09] MEDS ORDERED: PIPERACILLIN/TAZOBACTAM 3.375 GM in DEXTROSE 5% 100 ML/100 ML BAG IV SCH ×2 (07:00→16:00)
[2019-10-09] MEDS ORDERED: VANCOMYCIN HCL 1,250 MG in SODIUM CHLORIDE 0.9% 250 ML IV ONE (07:15)
[2019-10-09] MEDS ORDERED: HEPARIN SOD (PORCINE) 1000 UNIT/ML 10 ML VIAL IV ONE (07:33)
[2019-10-09] MEDS ORDERED: SODIUM CHLORIDE 0.9% 1000ML 1,000 ML IV PRN (07:33)
--- NOTE | 2019-10-09 07:55 | XRay Report ---
XR chest 1V portable HISTORY: Atypical Chest Pain COMPARISON: Chest 05/27/2019. FINDINGS: The heart is borderline enlarged. The lungs are clear. No pleural effusions. No pneumothora x. No evidence for pulmonary edema. Right jugular dual-lumen catheter terminates at the expected loca tion of the SVC. Distal resorption/resection of the left clavicle. IMPRESSION: No acute process. ACT 112: Negative or not required by law. Electronically signed by: Mookie Velazquez M.D. 10/09/2019 7:54 AM
[2019-10-09] MEDS: INSULIN ASPART 100 UNITS/ML 3 ML PEN SC SCH ×3 (08:01→14:27)
--- NOTE | 2019-10-09 08:01 | CT Scan Report ---
CT angio chest PE protocol CT DOSE: 466.40 mGy.cm HISTORY: 34 years-old Male with PE. Acute shortness of breath with chest pain TECHNIQUE: Multiple CTA images of the chest were obtained after the intravenous administration of 118 ml Optiray 320. Coronal and sagittal MIPS were obtained from the axial data set and were submitted for review. All measurements were obtained according to NASCET criteria. A dose lowering technique w as utilized adhering to the principles of ALARA. COMPARISON: Chest radiograph of same day FINDINGS: CTA: The heart is mildly enlarged. No pericardial effusion. Mild to moderate coronary artery calcification s. No thoracic aortic aneurysm or dissection. Patency of the imaged great vessels. The pulmonary hipolito rial tree is opacified to the level of the proximal subsegmental branches and demonstrates no filling defects to suggest pulmonary thromboembolic disease. Mild respiratory motion of the lung bases. CT CHEST: No thyroid nodule or adenopathy. Likely physiologic mildly prominent bilateral hilar lymph nodes. No pneumothorax, pleural effusion or overt pulmonary edema. Mild subsegmental bibasilar atelectasis. Pat juan jose groundglass and consolidative opacities of the posterior segment right upper lobe abutting the fi ssure. No suspicious pulmonary nodules or masses. Central airways appear patent. Mild nonspecific distal esophageal wall thickening. Nonspecific perinephric stranding adjacent to the superior pole right kidney. Hepatic steatosis. Subcutaneous stranding with subcutaneous emphysema in volves the left axilla and left upper arm, partially imaged. The bones appear intact. IMPRESSION: 1. Cardiomegaly. No evidence of pulmonary thromboembolic disease. 2. Subsegmental opacities of the right upper lobe are suggestive of an infectious or inflammatory pne umonitis. 3. Partially imaged subcutaneous edema and subcutaneous emphysema of the left axilla and left upper a rm may be on a postsurgical or infectious basis. Correlate with clinical history. ACT 112: Negative or not required by law. The above report was generated using voice recognition software. It may contain grammatical, syntax o r spelling errors. Electronically signed by: Rambo Daniels M.D. 10/09/2019 7:59 AM
[2019-10-09] MEDS ORDERED: IRBESARTAN 150 MG TAB PO SCH (09:00)
[2019-10-09] MEDS ORDERED: clonazePAM 0.5 MG TAB PO SCH (09:00)
[2019-10-09] MEDS ORDERED: NEPHROCAPS PO SCH (09:00)
[2019-10-09] MEDS ORDERED: AMLODIPINE BESYLATE 5 MG TAB PO SCH (09:00)
[2019-10-09] MEDS ORDERED: METHADONE HCL 10 MG TAB PO SCH (09:00)
[2019-10-09] MEDS ORDERED: METOPROLOL SUCC 25MG EXT REL TAB PO SCH (09:00)
[2019-10-09] MEDS ORDERED: BUMETANIDE 1 MG TAB PO SCH (09:00)
--- NOTE | 2019-10-09 09:17 | Nephrology Consultation ---
Date of Consultation October 09, 2019 Assessment & Plan (1) Hyperkalemia: With ECG changes in the setting of DKA and missed hemodialysis. Dialysis first treatment this morning on a 2K bath Stat repeat chemistry panel prior to start of treatment Present on Admission?: Yes (2) DKA (diabetic ketoacidoses): On an insulin drip; priMary service Present on Admission?: Yes (3) Acute electrocardiogram changes: Should improve with dialysis; serial ECGs; continue PRN calcium and ICU monitoring -Follow-up repeat heart tracings Present on Admission?: Yes (4) End stage renal disease on dialysis due to type 1 diabetes mellitus: Dialyzes under the care of Dr. Villa in [place] at [facility]. Formerly my clinic patient -Dialysis today Reassess for next treatment as clinically indicated daily but plan treatment tomorrow Daily basic metabolic panel -This hospital does not carry his outpatient phosphorus binder: We will arrange substitute Present on Admission?: Yes History of Present Illness Reason for Consultation: hyperkalemia, ESRD on dialysis Requesting Physician: Dr. Arnett Attending Physician: Greg Arnett, History of Present Illness 34-year-old male whom I am asked to evaluate for dialysis needs after he was admitted overnight for evaluation of chest pain and management of DKA. His medical history includes type 1 diabetes, ESRD on Saturday h emodialysis, past opioid abuse on methadone, hepatitis C, hypertension. Yesterday at [facility], he underwent revision of AV fistula. Was a complicated procedure and longer than expected and he ended up missing dialysis yesterday. He also removed his insulin pump he normally replaces every 3 days. He felt okay when he got home and blood sugars were then target last evening. However felt poorly and was unable to the dexterity to replace the insulin pump on his own. He woke up middle of the night feeling pain from his low anterior abdomen through his anterior chest and through the top of his head. on presentation, his potassium was 7 the blood sugar of 453, anion gap of 17, beta hydroxybutyrate 33. ECG remarkable for widening QRS complexes and peaked T waves. No blood gases or urinanalyses this admission so far. He received calcium, insulin, dextrose, albuterol. He was also started on an insulin drip and admitted to the ICU. I arranged for urgent dialysis. Once the treatment w as started, his temps immediately resolved. He currently denies shortness of breath, chest pain, altered mental status confusion concerns. Generalized weakness and lack of dexterity have resolved. No new or worrisome voiding symptoms: Voids small amount most days. Allergies Allergy/AdvReac Type Severity Reaction Status Date / Time No Known Drug Allergies Allergy Verified 09/29/19 16:00 Home Medications Home Medications Medication Instructions Recorded Confirmed Type bumetanide 1 mg PO QAM 11/03/18 10/09/19 History clonazepam 0.5 mg PO BID 11/03/18 10/09/19 History Velphoro 1,000 mg PO TIDM 03/24/19 10/09/19 History Franssica-Jj 0.8 mg PO DAILY 05/20/19 10/09/19 History Humalog U-100 Insulin 1 sliding scale dose SUBCUT UD PRN 05/22/19 10/09/19 Rx #15 ml clonidine 1 patch TRANSDERMAL CQWK #5 ea 05/22/19 10/09/19 Rx hydralazine 100 mg PO BID #60 tab 06/01/19 10/09/19 Rx irbesartan 300 mg PO DAILY #30 tab 06/01/19 10/09/19 Rx metoprolol succinate 75 mg PO BID #90 tab 06/01/19 10/09/19 Rx methadone 10 mg tablet 90 mg PO QAM tab 06/05/19 10/09/19 History blood sugar diagnostic #100 ea 06/08/19 09/29/19 Rx blood-glucose meter #1 ea 06/08/19 09/29/19 Rx lancets 30 gauge #100 ea 06/08/19 09/29/19 Rx pen needle, diabetic 31 gauge x #100 ea 07/03/19 09/29/19 Rx 1/4" amlodipine 10 mg PO DAILY 10/09/19 10/09/19 History sofosbuvir-velpatasvir [Epclusa] 1 tab PO DAILY 10/09/19 10/09/19 History tramadol 50 mg PO TID PRN 10/09/19 10/09/19 History Patient History Medical History Anemia Anxiety Anxiety Diabetes mellitus type 1 Diabetic retinopathy of both eyes ESRD (end stage renal disease) on peritoneal dialysis HS (10 hour treatments) Gastroparesis Hepatitis C History of seizure seizure-like activity 02/14/2019 in setting of severe hyperglycemia (patient states he missed dialysis/insulin dose), DKA, confusion- lifeflighted to [place]/intubated/placed on ventilator. DKA managed with insulin drip on admission. EEG with no seizure activity noted. Neurology consulted and initially started patient on prophylactic Keppra but suspected seizure was complication of hyperglycemia and recommended weaning off anticonvulsants/advised no further neurology workup needed. Per patient, medication/dialysis compliance since discharge with glucoses in the range on 100's-200's on self-checks. Hypertension Peritonitis currently on intraperitoneal abx Seizure Surgical History H/O eye surgery Hx of tonsillectomy Hx of tooth extraction Hx of vitrectomy B/L; right vitrectomy: 05/26/18: [place] [facility] [place] dialysis catheter in place Family History Grandfather (Maternal) Diabetes Grandfather (Paternal) Diabetes Grandmother (Paternal) Diabetes Grandmother (Maternal) Diabetes Aunt Diabetes Uncle Diabetes Father Hypertension Brother Hypertension Social History Preferred Language: Paraguayan Communication Ability: Effective Visual Impairment: Severely Limited Hearing Ability: Normal Wedding Planning Internship Required: No Beliefs That Will Affect Care: None Current Living Situation: Alone Current Living Situation Comment: son with patient Feels Safe at Home: Yes Safety Concerns: Feels Safe At This Time Smoking Status: Former smoker Tobacco Type: smokeless tobacco ; Second Hand Exposure: No ; Hx Alcohol Use: No Hx Substance Use: No Childhood Exposure to Second-Hand Smoke: No Diet Comment: diabetic caffeine: Yes Dental Care, Regularly: Yes Seatbelt Use: always Sunscreen Use: Yes Review of Systems Review of Systems: All systems reviewed & are unremarkable except as noted in HPI & below Physical Exam Constitutional: well developed, well nourished and cooperative Eyes: EOM intact bilaterally ENMT: Ears: no external ear abnormality Nose: no external nose abnormality Mouth: + dry oral mucous membranes Neck: no nuchal rigidity Respiratory: normal respiratory effort Auscultation: lungs clear to auscultation bilaterally and + diminished lung sounds Cardiovascular: RRR, no murmur, no edema Extremities: + AV fistula (Left proximal upper extremity) Gastrointestinal (Abdomen): Inspection/Auscultation: normal bowel sounds; abdomen not distended Percussion/Palpation: abdomen soft; abdomen nontender Musculoskeletal: Extremities: strength 5/5 throughout Skin: no rashes, warm and dry Neurologic: fitch, fluent speech, no tremor Psychiatric: A+Ox3, euthymic affect Results & Data Vital Signs (Past 12 Hours) Vital Signs Temp Pulse Pulse Pulse Resp BP BP 10/09/19 08:00 36.7 C 73 20 148/81 H 10/09/19 07:00 36.7 C 74 20 L 20 148/81 H 10/09/19 06:33 36.6 C 76 20 160/85 H 10/09/19 06:00 76 18 137/75 10/09/19 05:30 78 16 131/67 10/09/19 05:00 76 17 127/74 10/09/19 04:50 74 12 10/09/19 04:00 75 17 132/67 10/09/19 03:38 75 12 132/68 10/09/19 03:29 76 10/09/19 03:07 77 12 127/69 10/09/19 02:53 36.4 C L 76 20 131/70 Pulse Ox 10/09/19 08:00 93 10/09/19 07:00 93 10/09/19 06:33 99 10/09/19 06:00 98 10/09/19 05:30 96 10/09/19 05:00 96 10/09/19 04:50 97 10/09/19 04:00 97 10/09/19 03:38 100 10/09/19 03:29 100 10/09/19 03:07 100 10/09/19 02:53 99 (1) DKA (diabetic ketoacidoses) Diabetes mellitus complication detail: without coma Diabetes mellitus type: type 1 Qualified Code(s): E10.10 - Type 1 diabetes mellitus with ketoacidosis without coma
[2019-10-09] MEDS: HEPARIN SOD (PORCINE) 1000 UNIT/ML 10 ML VIAL IV SCH ×3 (10:05→13:00)
[2019-10-09] MEDS ORDERED: INSULIN GLARGINE SOLOSTAR 100 UNITS/ML 3 ML PEN SC ONE (10:15)
[2019-10-09 10:26] LABS: Estimated Average Glucose 186 mg/dl; Hemoglobin A1C 8.1 % (4.5-5.6)
[2019-10-09 10:49] LABS: BUN Creatinine Ratio 7.2 (10-20); Creatinine Clr Calc Pharmacy 11.3 ml/min; Est GFR (African American) 7.7; Est GFR (Non-African American) 6.6; Magnesium 2.9 mg/dl (1.8-2.4); Phosphorus 4.1 mg/dl (2.5-4.9); Potassium 5.8 mmol/L (3.5-5.1)
[2019-10-09 11:39] LABS: Hepatitis B Surface Ab Quant 24.42 mIU/mL (>or=10mIU/mL Immune); Hepatitis B Surface Antibody Immune
[2019-10-09] MEDS ORDERED: PHARMACY GLYCEMIC MGMT CONSULT PRN (11:48)
[2019-10-09 11:50] LABS: Hepatitis B Surface Antigen Neg (Neg)
[2019-10-09] MEDS ORDERED: SEVELAMER HCL 800 MG TABLET PO SCH (12:00)
--- NOTE | 2019-10-09 12:00 | Dialysis Progress Note ---
Date of Service October 09, 2019 Assessment & Plan (1) Hyperkalemia: With ECG changes in the setting of DKA and missed hemodialysis. Dialysis first treatment this morning on a 2K bath going well Stat repeat chemistry panel prior to start of treatment>> reviewed and potassium down to 5.8 Anticipate some lability in potassium levels given prior medical therapy earlier this morning was absolutely indicated as well as dialysis and DKA therapy (2) DKA (diabetic ketoacidoses): On an insulin drip; priMary service -Serum sodium/total body sodium is actually higher than it appears on above labs; serum potassium is actually lower than above labs: Typical with DKA -Recommend recheck basic metabolic panel least 2 hours or more after treatment today (3) Acute electrocardiogram changes: Should improve with dialysis; serial ECGs; continue PRN calcium and ICU monitoring -Follow-up repeat heart tracings (4) End stage renal disease on dialysis due to type 1 diabetes mellitus: Dialyzes under the care of Dr. Villa in [place] at [facility]. Formerly my clinic patient -Dialysis today Reassess for next treatment as clinically indicated daily but plan treatment tomorrow Daily basic metabolic panel -This hospital does not carry his outpatient phosphorus binder: We will arrange substitute with Is[facility] Ewing Seen on dialysis. Tolerating treatment well. Goal UF 3 L; patient reports he generally has 1 to 1.2 L UF most treatments. Weakness, abdominal pain, chest discomfort, headache all resolved Review of Systems Review of Systems: All systems reviewed & are unremarkable except as noted in HPI & below Physical Exam Constitutional: well developed, well nourished and cooperative Eyes: EOM intact bilaterally ENMT: Ears: no external ear abnormality Nose: no external nose abnormality Mouth: + dry oral mucous membranes Neck: no nuchal rigidity Respiratory: normal respiratory effort Auscultation: lungs clear to auscultation bilaterally and + diminished lung sounds Cardiovascular: RRR, no murmur, no edema Extremities: + AV fistula (Left proximal upper extremity) Gastrointestinal (Abdomen): Inspection/Auscultation: normal bowel sounds; abdomen not distended Percussion/Palpation: abdomen soft; abdomen nontender Musculoskeletal: Extremities: strength 5/5 throughout Skin: no rashes, warm and dry Psychiatric: A+Ox3, euthymic affect Results & Data Vital Signs (Past 12 Hours) Vital Signs Temp Pulse Pulse Pulse Pulse Resp BP 10/09/19 11:30 63 135/83 10/09/19 11:15 70 138/80 10/09/19 11:00 70 145/87 H 10/09/19 10:45 71 158/86 H 10/09/19 10:30 71 145/83 H 10/09/19 10:15 72 148/84 H 10/09/19 09:42 36.8 C 71 10/09/19 08:00 36.7 C 73 20 10/09/19 07:00 36.7 C 74 20 L 20 10/09/19 06:33 36.6 C 76 20 10/09/19 06:00 76 18 137/75 10/09/19 05:30 78 16 131/67 10/09/19 05:00 76 17 127/74 10/09/19 04:50 74 12 10/09/19 04:00 75 17 132/67 10/09/19 03:38 75 12 132/68 10/09/19 03:29 76 10/09/19 03:07 77 12 127/69 10/09/19 02:53 36.4 C L 76 20 131/70 BP Pulse Ox 10/09/19 11:30 10/09/19 11:15 10/09/19 11:00 10/09/19 10:45 10/09/19 10:30 10/09/19 10:15 10/09/19 09:42 10/09/19 08:00 148/81 H 93 10/09/19 07:00 148/81 H 93 10/09/19 06:33 160/85 H 99 10/09/19 06:00 98 10/09/19 05:30 96 10/09/19 05:00 96 10/09/19 04:50 97 10/09/19 04:00 97 10/09/19 03:38 100 10/09/19 03:29 100 10/09/19 03:07 100 10/09/19 02:53 99 Laboratory Results 10/09/19 03:24 10/09/19 10:07 Diagnostic Findings ECGs reviewed Chest x-ray no acute process Chest CT pulmonary embolus protocol: No PE; ? RUL pneumonitis or infection; some L axillary edema (1) DKA (diabetic ketoacidoses) Diabetes mellitus type: type 1 Diabetes mellitus complication detail: without coma Qualified Code(s): E10.10 - Type 1 diabetes mellitus with ketoacidosis without coma
--- NOTE | 2019-10-09 12:05 | Pharmacy Report ---
Pharmacy Glycemic Short Note 2 - Date of Service October 09, 2019 - Glycemic Short BSG Results (Last 24 hours): 10/09/19 10/09/19 10/09/19 03:24 03:54 03:55 Glucose 453 H* POC Glucose 479 H* 474 H* 10/09/19 10/09/19 10/09/19 05:23 05:24 07:16 Glucose POC Glucose 431 H* 479 H* 401 H* 10/09/19 10/09/19 10/09/19 08:04 09:08 10:04 Glucose POC Glucose 366 H* 313 H* 291 H 10/09/19 10/09/19 10:07 10:57 Glucose 295 H POC Glucose 179 H OUTPATIENT ANTIDIABETIC REGIMEN: * Novolog per pump, setting uncertain. Patient does not have pump or supplies with him * A1c = 8.1% 10/09/19 (but interpret with caution due to shortened RBC lifespan in ESRD) ASSESSMENT: * Type 1 diabetic admitted for suprapubic abdominal pain and chest pain, found to be hyperkalemic after missing HD. * AG acidosis present, ESRD likely contributing but does have elevated serum ketones. Bicarb slightly reduced (Bicarb 20), venous pH only slightly acidotic (vpH 4.35). Patient has been alert for RN. Mild DKA per these clinical and lab findings. * IV insulin infusing this AM. BSGs trending down nicely. * Patient expressing desires to go home today following HD session, providers m ay also be agreeable to his discharge. Will give a STAT dose of Lantus this AM, based upon doses that have performed well for him during prior hospitalizations. IV insulin drip will continue at this time, may be able to DC insulin drip soon if AG improved following HD session. Should he leave AMA, basal insulin will be on board to lessen risk of worsening DKA. PLAN FOR INPATIENT GLYCEMIC CONTROL: * Basal insulin * Lantus 18 units SQ QAM * Continue insulin drip at this time. * If pt not permitted to eat, would start IVF with dextrose to prevent hyp oglycemia while providing ongoing insulin therapy. * Discontinue insulin drip if AG acidosis improved following HD, Bicarb remains > 15, * Bolus insulin * NovoLog per scale * Goal Range: Low [] mg/dL - High [] mg/dL * Correction Factor: [] mg/dL/unit * Nutritional / Prandial insulin per carb ratio of 1 unit per [] grams CHO consumed PLAN FOR DISCHARGE: *
--- NOTE | 2019-10-09 12:11 | Pharmacy Report ---
Pharmacy Glycemic Short Note 2 - Date of Service October 09, 2019 - Glycemic Short BSG Results (Last 24 hours): 10/09/19 10/09/19 10/09/19 03:24 03:54 03:55 Glucose 453 H* POC Glucose 479 H* 474 H* 10/09/19 10/09/19 10/09/19 05:23 05:24 07:16 Glucose POC Glucose 431 H* 479 H* 401 H* 10/09/19 10/09/19 10/09/19 08:04 09:08 10:04 Glucose POC Glucose 366 H* 313 H* 291 H 10/09/19 10/09/19 10/09/19 10:07 10:57 11:52 Glucose 295 H POC Glucose 179 H 134 H OUTPATIENT ANTIDIABETIC REGIMEN: * Novolog per pump, setting uncertain. Patient does not have pump or supplies with him * A1c = 8.1% 10/09/19 (but interpret with caution due to shortened RBC lifespan in ESRD) ASSESSMENT: * Type 1 diabetic admitted for suprapubic abdominal pain and chest pain, found to be hyperkalemic after missing HD. * AG acidosis present, ESRD likely contributing but does have elevated serum ketones. Bicarb slightly reduced (Bicarb 20), venous pH only slightly acidotic (vpH 4.35). Patient has been alert for RN. Mild DKA per these clinical and lab findings. * IV insulin infusing this AM. BSGs trending down nicely. * Patient expressing desires to go home today following HD session, providers may also be agreeable to his discharge. Will give a STAT dose of Lantus this AM, based upon doses that have performed well for him during prior hospitalizations. IV insulin drip will continue at this time, may be able to DC insulin drip soon if AG improved following HD session. Should he leave AMA, basal insulin will be on board to lessen risk of worsening DKA. PLAN FOR INPATIENT GLYCEMIC CONTROL: * Basal insulin * Lantus 18 units SQ QAM * Continue insulin drip at this time, ideally would continue until AG 12 or less * If pt not permitted to eat, would start IVF with dextrose to prevent hypoglycemia while providing ongoing insulin therapy. * Bolus insulin: * Nutritional / Prandial insulin per carb ratio of 1 unit per 14 grams CHO consumed * IF INSULIN DRIP DISCONTINUED: GOAL RANGE: 110-160mg/dL; CORRECTION FACTOR: 35MG/DL/UNIT; CARB RATIO: 1 UNIT PER 14GM CHO PLAN FOR DISCHARGE: * Patient should resume his insulin pump, however decrease his basal insulin rate by 50% or more for the 1st 12-24 hrs due to administration of basal insulin this AM. He should monitor BSGs more frequently over the next 24 hrs. Would recommend he continue to cover his meals and elevated BSGs per his usual sensitivity factor and carb ratio. Tomorrow AM he should increase his basal rates back to his usual baseline if he has not already done so.
--- NOTE | 2019-10-09 15:28 | Electrocardiogram Report ---
Test Reason : Blood Pressure : / mmHG Vent. Rate : 076 BPM Atrial Rate : 076 BPM P-R Int : 238 ms QRS Dur : 140 ms QT Int : 470 ms P-R-T Axes : 045 202 043 degrees QTc Int : 528 ms Sinus rhythm with 1st degree A-V block Right superior axis deviation Non-specific intra-ventricular conduction block Septal infarct (cited on or before 09-OCT-2019) Abnormal ECG When compared with ECG of 09-OCT-2019 03:02, (unconfirmed) [place] interval has increased Questionable change in QRS axis Confirmed by Haseeb Torres ([id number]) on 10/09/2019 3:28:31 PM Referred By: REFERRED SELF Confirmed By:Haseeb Torres
--- NOTE | 2019-10-09 15:28 | Electrocardiogram Report ---
Test Reason : Blood Pressure : / mmHG Vent. Rate : 073 BPM Atrial Rate : 073 BPM P-R Int : 198 ms QRS Dur : 130 ms QT Int : 458 ms P-R-T Axes : 043 050 035 degrees QTc Int : 504 ms Normal sinus rhythm Non-specific intra-ventricular conduction block Cannot rule out Septal infarct , age undetermined Abnormal ECG When compared with ECG of 28-MAY-2019 10:22, QRS duration has increased Minimal criteria for Septal infarct are now Present Confirmed by Haseeb Torres ([id number]) on 10/09/2019 3:27:56 PM Referred By: REFERRED SELF Confirmed By:Haseeb Torres
--- NOTE | 2019-10-09 16:11 | Discharge Summary ---
Date of Service October 09, 2019 Admission HPI Per Admitting Provider Bernard Jones is a 34 year old man with a past medical history significant for DMI ESRD on hemodialysis TThSa, History of opiate abuse on methadone, Hepatitis C, HTN chronic pain and seizures who presents today with chest pain. Mr. Jones had an 8 hour procedure yesterday to place a fistula in his left upper extremity at outside facility. He skipped his usual dialysis day that to have it done. The procedure went well, he was feeling very weak after the procedure and went to bed. His blood sugar was slightly high but in the 100's when he went to sleep. When he woke up spontaneously at around 1:30 this morning he noticed a severe chest pain across his entire chest. This was followed by a second burning sensation that is present from his belly button to the top of his head. He also is feeling short of breath, has had nausea and vomiting and has felt chills. on admission to emergency department patient's vital signs were all wnl other than a slight tachypnea of 20 breaths per minute. Lab work was significant for an elevated white count of 15.27, Anemia of 11.7 which is about his baseline, hyponatremia of 127, a market hypokalemia of 7.0 bicarb 20, anion gap 17, BUN 57, creatinine of 8.87 a glucose of 453 which is since gone up to 479 after 10 units of IV insulin. Beta hydroxybutyric acid of 32.6. CT of the chest negative for PE, however does show a area of groundglass opacity in the right upper lobe and fat stranding and subcutaneous air in the left axilla near his surgery site. Patient was given 2 g of calcium gluconate 2.5 mg nebulizer of albuterol and 10 units of IV insulin in emergency department. Patient also received 500 mL of normal saline bolus. ECG obtained showing widened QRS complex and peaked T waves. Principal Diagnosis Hyperkalemia in setting of ESRD, missing HD session Discharge Exam Constitutional WD/WN, vitals as above Eyes PERRL, conjunctivae normal, anicteric sclerae ENMT external ear and nose normal, oropharynx normal Neck trachea midline, no thyromegaly Respiratory normal respiratory effort, lungs clear to auscultation Cardiovascular RRR, no murmur, no edema Gastrointestinal (Abdomen) normal bowel sounds, soft, nontender, no hepatosplenomegaly Musculoskeletal no cyanosis or clubbing, extremities motor strength 5/5 Skin no rashes, warm and dry Neurologic patellar DTR's 2+ bilat, sensation intact and PERRL, EOMI, accommodation nl, no face palsy, no dysarthria Psychiatric A+Ox3, euthymic affect Lymphatic no cervical or axillary lymphadenopathy Discharge Data Allergies Allergy/AdvReac Type Severity Reaction Status Date / Time No Known Drug Allergies Allergy Verified 09/29/19 16:00 Consultations 10/09/19 05:43 ED Decision to Admit Stat 10/09/19 06:32 Consult Case Management - Discharge Planning Routine Consult Streetcar Repairer Routine Consult Nephrology Routine 10/09/19 10:31 Consult Patient Services Routine Ordered Studies 10/09/19 03:26 CT angio chest PE protocol Urgent Hospital Course (1) Acute hyperkalemia: K was 7.0 on admission treated appropriately with insulin, Calcium gluconate down to 5.8 prior to emergent HD received full HD session on 10/08 he felt normal afterwards, no pain, no dyspnea he ate lunch d/c to home with plans for regularly scheduled outpatient HD on 10/09 appreciate assistance of ICU team and Dr. Rose with nephrology (2) Hyponatremia: due to renal failure and missed HD session improved/resolved after HD (3) Acute hyperglycemia: in setting of DM type I, pump malfunction very mild DKA treated with insulin infusion, managed by pharmacy team Lantus given this morning sugars down to 106 prior to discharge will resume pump on discharge (4) Acute electrocardiogram changes: peaked T waves and QRS widening on initial EKG treated hyperkalemia with Calcium gluconate and insulin EKG improved (5) DKA (diabetic ketoacidoses): very mild, anion gap closed due to insulin pump malfunction, now resolved treated with insulin infusion while here transitioned to Lantus in the morning and Novolog resume insulin pump on discharge instructions given to reduce basal rate to 25-50% for the first 12-24 hours keep close eye on sugars and give bolus insulin as needed (6) End stage renal disease on dialysis due to type 1 diabetes mellitus: follows with [facility] emergent HD done here in ICU, tolerated well plan for typical HD session tomorrow in [facility] (7) Hypertension: continue home regimen BP stable Total Time Total Time Spent Total Time Spent (In Minutes): 31 minutes Total Time Includes: Examination of the Patient, Discharge Planning, Medication Reconciliation and Communication With Other Providers (Dr. Barlow, Dr. Rose) Discharge Plan Discharge Items Patient Disposition: Home - Self-Care Reason For Visit: DKA AND RENAL FAILURE REQUIRING EMERGENT DIALYSIS Discharge Diagnosis: Hyperkalemia requiring emergent dialysis Hyperglycemia, type I Diabetes mellitus Hyponatremia ESRD Condition on Discharge: Good Goals: follow up tomorrow for scheduled outpatient HD resume insulin pump Activity: Resume your previous activity Non-emergency contact: Primary Care Provider and Surgical Aides Teacher Call non-emergency contact if: you have any medication questions and your symptoms worsen Follow-up/Referrals: Dion Shannon CRNP [Primary Care Provider] - Diet: Carb Count or DM1 and Dialysis Renal Addtl Attending Provider Instructions: Medications: no changes Insulin pump, pharmacy directions Patient should resume his insulin pump, however decrease his basal insulin rate by 50% or more for the 1st 12-24 hrs due to administration of basal insulin this AM. He should monitor BSGs more frequently over the next 24 hrs. Would recommend he continue to cover his meals and elevated BSGs per his usual sensitivity factor and carb ratio. Tomorrow AM he should increase his basal rates back to his usual baseline if he has not already done so. Please report to outpatient HD clinic for HD tomorrow elevated potassium and EKG changes resolved with emergent hemodialysis today continue all prior medications for renal failure, hypertension Pending Studies at Discharge: No Stand-Alone Forms: My [facility] [employer], Smoking Cessation Medications and DC Order Prescriptions: Continued (DME) OneTouch Ultra Blue Test Strip strip See Rx Instructions .ROUTE .MEDSUPPLY Qty: 100 RF: 3 (DME) blood-glucose meter [OneTouch Ultra2 Meter] misc See Rx Instructions .ROUTE .MEDSUPPLY Qty: 1 RF: 0 (DME) lancets [OneTouch Delica Lancets] 30 gauge misc See Rx Instructions .ROUTE .MEDSUPPLY Qty: 100 RF: 3 (DME) pen needle, diabetic [UltiCare Pen Needle] 31 gauge x 1/4" needle See Rx Instructions .ROUTE .MEDSUPPLY Qty: 100 RF: 3 methadone 10 mg tablet 90 mg PO QAM RF: 0 clonazepam 0.5 mg tablet 0.5 mg PO BID RF: 0 bumetanide 1 mg tablet 1 mg PO QAM RF: 0 Velphoro 500 mg Tablet,Chewable 1,000 mg PO TIDM RF: 0 tramadol 50 mg tablet 50 mg PO TID PRN (Reason: Pain) RF: 0 amlodipine 10 mg Tablet 10 mg PO DAILY RF: 0 sofosbuvir-velpatasvir [Epclusa] 400-100 mg Tablet 1 tab PO DAILY RF: 0 Fransisca-Jj 0.8 mg tablet 0.8 mg PO DAILY RF: 0 clonidine 0.2 mg/24 hr Patch Weekly 1 patch transdermal CQWK Qty: 5 RF: 0 Humalog U-100 Insulin 100 unit/mL Cartridge 1 sliding scale dose SUBCUT UD PRN (Reason: Blood sugar) Qty: 15 RF: 0 hydralazine 100 mg tablet 100 mg PO BID Qty: 60 RF: 0 metoprolol succinate 50 mg tablet extended release 24 hr 75 mg PO BID Qty: 90 RF: 0 irbesartan 300 mg tablet 300 mg PO DAILY Qty: 30 RF: 0 Discharge Orders: Discharge Order (Routine); Ordered 10/09/19 Ordered By: Greg Pandya/Other Patient Handouts: Hypoglycemia, Diabetic Ketoacidosis Admission Data Admit Date/Time: 10/09/19 05:45 Attending Provider: Greg Arnett Admit Provider: Sampson Grant Primary Care Provider: Dion Shannon Other Providers: Aris Howell ; Hugo Barlow ; Eusebia Rose Other Interventions: Discharge Summary Assessment (RN) Last Done: 10/09/19 14:55 DC Date/Time DO NOT enter until pt leaves facility: 10/09/19 16:02 Coding Level of Care Code D/C Day Management >30 mins Diagnoses Acute hyperkalemia E87.5 Hyponatremia E87.1 Acute hyperglycemia R73.9 Acute electrocardiogram changes R94.31 DKA (diabetic ketoacidoses) E10.10 Diabetes mellitus type: type 1 Diabetes mellitus complication detail: without coma End stage renal disease on dialysis due to type 1 diabetes mellitus E10.22; N18.6; Z99.2 Hypertension I10 Hypertension type: essential hypertension
[2019-10-10] MEDS ORDERED: INSULIN ASPART 100 UNITS/ML 3 ML PEN SC SCH (02:00)
[2019-10-10] MEDS ORDERED: INSULIN GLARGINE SOLOSTAR 100 UNITS/ML 3 ML PEN SC SCH (09:00)
--- NOTE | 2019-10-11 03:31 | Billing Data ---
Date of Service October 11, 2019 Coding Level of Care Code Critical Care 1st - mins
== END 2019-10-09 16:02 | disposition home or self-care (01) | DRG 682 ==
LOC: ED 02:51 → SUATTDRO 05:45 → 1E 05:45

== ENCOUNTER 2019-11-03 02:28 | Inpatient (IN) ==
[2019-11-03] MEDS ORDERED: HydrALAZINE HCL 20 MG/ML VIAL IV STA (02:52)
[2019-11-03 02:56] LABS: Basophils # (auto) 0.05 K/uL (0-0.2); Basophils % (auto) 0.6 %; Eosinophils # (auto) 0.02 K/uL (0-0.5); Eosinophils % (auto) 0.2 %; Hematocrit (blood only) 37.5 % (42-52); Hemoglobin 12.6 g/dL (14.0-18.0); Immature Granulocytes # (auto) 0.01 K/uL (0.00-0.02); Immature Granulocytes % (auto) 0.1 %; Lymphocytes # (auto) 1.33 K/uL (1.2-3.4); Lymphocytes % (auto) 16.2 %; Mean Corpuscular Hemoglobin 32.3 pg (25-34); Mean Corpuscular Hgb Conc 33.6 g/dL (32-36); Mean Corpuscular Volume 96.2 fL (80-100); Mean Platelet Volume 9.5 fL (7.4-10.4); Monocytes # (auto) 0.82 K/uL (0.11-0.59); Neutrophils # (auto) 5.98 K/uL (1.4-6.5); Neutrophils % (auto) 72.9 %; Platelet Count 173 K/uL (130-400); RDW Coefficient of Variation 16.7 % (11.5-14.5); RDW Standard Deviation 57.8 fL (36.4-46.3); White Blood Count 8.21 K/uL (4.8-10.8)
[2019-11-03 02:57] LABS: iSTAT Creatinine 9.2 mg/dl (0.6-1.3); iSTAT Hemoglobin 13.9 g/dl (14.0-18.0); iSTAT Ionized Calcium 1.16 mmol/l (1.12-1.32); iSTAT Potassium 3.9 mmol/L (3.3-5.0)
--- NOTE | 2019-11-03 02:57 | Emergency Department Note ---
History of Present Illness General Chief complaint: Shortness of Breath/Dyspnea Stated complaint: Breathing difficulty Time Seen by Provider: 11/03/19 02:32 History of Present Illness This is a 34-year-old male that presents to the emergency department via ambulance with complaints of "breathing difficulty". The patient has a complex and extensive past medical history. He is currently on dialysis last of which was Saturday. He states that he developed a fever yesterday T-max 102 F. He went to bed tonight and awoke with severe dyspnea. He states that he has severe trouble breathing which is new for him. He did have Tylenol this evening for the fever. Per EMS patient was 82% on room air when they arrived. He was placed on 4 L nasal cannula which that in addition to duo nebs and Solu-Medrol raised his oxygen to 92%. No alleviating or aggravating factors identified. Review of his previous visit indicate that he was admitted to the ICU here earlier this month for acute hyperkalemia. Home Medications Home Medications Medication Instructions Recorded Confirmed Type clonazepam 0.5 mg PO BID 11/03/18 11/03/19 History Velphoro 1,000 mg PO TIDM 03/24/19 11/03/19 History Fransisca-Jj 0.8 mg PO DAILY 05/20/19 11/03/19 History Humalog U-100 Insulin 1 sliding scale dose SUBCUT UD PRN 05/22/19 11/03/19 Rx #15 ml clonidine 1 patch TRANSDERMAL CQWK #5 ea 05/22/19 11/03/19 Rx metoprolol succinate 75 mg PO BID #90 tab 06/01/19 11/03/19 Rx blood sugar diagnostic #100 ea 06/08/19 10/12/19 Rx blood-glucose meter #1 ea 06/08/19 10/12/19 Rx lancets 30 gauge #100 ea 06/08/19 10/12/19 Rx pen needle, diabetic 31 gauge x #100 ea 07/03/19 10/12/19 Rx 1/4" sofosbuvir-velpatasvir [Epclusa] 1 tab PO DAILY 10/09/19 11/03/19 History tramadol 50 mg PO TID PRN 10/09/19 11/03/19 History amlodipine 10 mg tablet 10 mg PO DAILY #30 tab 10/12/19 11/03/19 Rx irbesartan 300 mg tablet 300 mg PO DAILY #30 tab 10/12/19 11/03/19 Rx gabapentin 100 mg capsule 100 mg PO HS #30 cap 10/14/19 11/03/19 Rx bumetanide 1 mg PO QAM 11/03/19 11/03/19 History ferric citrate [Auryxia] 210 mg PO TIDM 11/03/19 11/03/19 History hydralazine 50 mg PO TID 11/03/19 11/03/19 History insulin pump cartridge [Omnipod 11/03/19 11/03/19 History Dash 5 Pack Pod] methadone 90 mg PO DAILY 11/03/19 11/03/19 History sevelamer carbonate 800 mg PO TID 11/03/19 11/03/19 History Allergies Allergy/AdvReac Type Severity Reaction Status Date / Time No Known Drug Allergies Allergy Unknown Verified 11/03/19 03:43 Past Med/Surg History Medical History Anemia Anxiety Diabetes mellitus type I Diabetic retinopathy of both eyes End stage renal disease on dialysis due to type 1 diabetes mellitus Gastroparesis Hepatitis C History of seizure seizure-like activity 02/14/2019 in setting of severe hyperglycemia (patient states he missed dialysis/insulin dose), DKA, confusion- lifeflighted to [facility]/intubated/placed on ventilator. DKA managed with insulin drip on admission. EEG with no seizure activity noted. Neurology consulted and initially started patient on prophylactic Keppra but suspected seizure was complication of hyperglycemia and recommended weaning off anticonvulsants/advised no further neurology workup needed. Per patient, med ication/dialysis compliance since discharge with glucoses in the range on 100's-200's on self-checks. Hypertension Nephrotic syndrome Peritonitis currently on intraperitoneal abx Substance abuse Withdrawal from opioids Surgical History H/O eye surgery Hx of tonsillectomy Hx of tooth extraction Hx of vitrectomy B/L; [place]26[place] [facility] [place] catheter in place Family History Grandfather (Maternal) Diabetes Grandfather (Paternal) Diabetes Grandmother (Paternal) Diabetes Grandmother (Maternal) Diabetes Aunt Diabetes Uncle Diabetes Father Hypertension Brother Hypertension Social History Preferred Language: Malawian Communication Ability: Effective Visual Impairment: Severely Limited Hearing Ability: Normal 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 Beliefs That Will Affect Care: None Current Living Situation: Alone Current Living Situation Comment: son with patient Other Information That Helps Us Care for You: No Feels Safe at Home: Yes Safety Concerns: Feels Safe At This Time Smoking Status: Former smoker Tobacco Type: smokeless tobacco ; Do You Dip or Chew Tobacco: Yes ; Second Hand Exposure: No ; Tobacco Cessation Education Re quested by Patient: No Hx Alcohol Use: No Hx Substance Use: No Childhood Exposure to Second-Hand Smoke: No Diet Comment: diabetic caffeine: Yes Dental Care, Regularly: Yes Seatbelt Use: always Sunscreen Use: Yes Review of Systems A total of 10 systems reviewed and were otherwise negative Physical Exam Vital Signs Vital Signs - 24 hr 11/03/19 02:44 11/03/19 02:45 11/03/19 03:00 Temperature 38.4 C H Temperature Source Oral Pulse Rate 109 H 109 H 107 H Pulse Rate from SpO2 Sensor 109 H Respiratory Rate 30 H 29 H 29 H Respiratory Effort / Characteristics Spontaneous Grunting Labored Short of Breath Respiratory Depth Deep Respiratory Pattern Grunting Blood Pressure 225/107 H 230/111 H 225/107 H Blood Pressure Mean 146 127 151 Blood Pressure Position Lying Pulse Oximetry 82 L 93 Oxygen Delivery Method Nasal Cannula Oxygen Flow Rate 4 Fraction of Inspired Oxygen Sepsis Recent Fever Within 48 Hours Yes Sepsis New/Unexplained Change in Mental Status No Sepsis Action Taken by Nursing Physician Notified Oxygen Flow Rate - Titration 15 Pulse Oximetry Post Tiitration 94 11/03/19 03:30 11/03/19 03:32 11/03/19 04:00 Temperature Temperature Source Pulse Rate 106 H 110 H 101 H Pulse Rate from SpO2 Sensor 106 H Respiratory Rate 34 H 24 26 H Respiratory Effort / Characteristics Respiratory Depth Respiratory Pattern Blood Pressure 217/100 H 196/89 H Blood Pressure Mean 139 130 Blood Pressure Position Pulse Oximetry 90 94 91 Oxygen Delivery Method Non-rebreather Oxygen Flow Rate 15 Fraction of Inspired Oxygen Sepsis Recent Fever Within 48 Hours Sepsis New/Unexplained Change in Mental Status Sepsis Action Taken by Nursing Oxygen Flow Rate - Titration Pulse Oximetry Post Tiitration 11/03/19 04:30 11/03/19 05:09 11/03/19 05:30 Temperature 39.6 C H Temperature Source Pulse Rate 96 H 93 H 90 Pulse Rate from SpO2 Sensor Respiratory Rate 32 H 19 20 Respiratory Effort / Characteristics Non-Labored Spontaneous Respiratory Depth Normal Respiratory Pattern Regular Blood Pressure 190/85 H 178/89 H Blood Pressure Mean 109 118 Blood Pressure Position Pulse Oximetry 92 95 97 Oxygen Delivery Method BiPAP Oxygen Flow Rate Fraction of Inspired Oxygen 60 Sepsis Recent Fever Within 48 Hours Sepsis New/Unexplained Change in Mental Status Sepsis Action Taken by Nursing Oxygen Flow Rate - Titration Pulse Oximetry Post Tiitration 11/03/19 06:00 Temperature Temperature Source Pulse Rate 89 Pulse Rate from SpO2 Sensor Respiratory Rate 24 Respiratory Effort / Characteristics Respiratory Depth Respiratory Pattern Blood Pressure 141/82 H Blood Pressure Mean 98 Blood Pressure Position Pulse Oximetry 99 Oxygen Delivery Method Oxygen Flow Rate Fraction of Inspired Oxygen Sepsis Recent Fever Within 48 Hours Sepsis New/Unexplained Change in Mental Status Sepsis Action Taken by Nursing Oxygen Flow Rate - Titration Pulse Oximetry Post Tiitration VITAL SIGNS - Vital signs and nursing notes were reviewed. Febrile, tachycardi c, hypoxia, hypertensive, increased respiratory rate noted. GENERAL - 34-year-old male appearing his stated age who has an increased work of breathing on examination and is speaking in partial sentences. Communicates well with provider and answers questions appropriately. SKIN - Without rashes. HEAD - NC/AT. EYES - PERRL with EOMI bilaterally. Sclera anicteric. EARS - No deformities of external structures noted on gross examination bilaterally. NOSE - Midline and without cyanosis. No epistaxis or purulent drainage noted. MOUTH/OROPHARYNX - Without perioral cyanosis. NECK - Neck with FROM. No nuchal rigidity. LUNGS -chest wall rises symmetric with decreased breath sounds noted bilaterall y. No wheezing. CARDIAC -tachycardic without murmur. ABDOMEN - Abdominal contour normal without pulsations or visible masses. BS normoactive all four quadrants. No tenderness, palpable masses, hepato splenomegaly, or ascites noted. EXTREMITIES - No clubbing or peripheral cyanosis. +5/5 strength noted in UE/LE bilaterally. NEUROLOGIC - Cranial nerves II through XII grossly intact. Sensory intact to light touch throughout. PSYCH - A&Ox3 and cooperates fully with examiner. Pt is very pleasant and interacts well with examiner. Course Administered Medications Amlodipine Besylate (Norvasc) 10 mg PO DAILY AYESHA Stop: 12/03/19 08:59 Last Admin: 11/03/19 09:33 Dose: 10 mg Documented by: [id number] Clonazepam (Klonopin) 0.5 mg PO BID AYESHA Stop: 12/03/19 08:59 Last Admin: 11/03/19 09:37 Dose: 0.5 mg Documented by: [id number] Heparin Sodium (Porcine) (Heparin Sodium (Porcine)) 5,000 units SQ Q12 AYESHA Stop: 12/03/19 08:59 Last Admin: 11/03/19 09:38 Dose: Not Given Documented by: [id number] Insulin Aspart (Novolog Flexpen) 0 units SC ACHS AYESHA Stop: 12/03/19 07:32 Last Admin: 11/03/19 09:35 Dose: 2 units Documented by: [id number] Cosigned by: [id number] Insulin Glargine (Lantus Solostar Pen) 9 units SC BID AYESHA Stop: 12/03/19 08:59 Last Admin: 11/03/19 09:34 Dose: 9 units Documented by: [id number] Cosigned by: [id number] Irbesartan (Avapro) 300 mg PO DAILY AYESHA Stop: 12/03/19 08:59 Last Admin: 11/03/19 09:32 Dose: 300 mg Documented by: [id number] Methadone HCl (Dolophine) 90 mg PO DAILY AYESHA Stop: 11/17/19 08:59 Last Admin: 11/03/19 09:37 Dose: 90 mg Documented by: [id number] Metoprolol Succinate (Toprol Xl) 75 mg PO BID AYESHA Stop: 12/03/19 08:59 Last Admin: 11/03/19 09:33 Dose: 75 mg Documented by: [id number] Miscellaneous (Check Clonidine Patch) 1 ea N/A QS AYESHA Stop: 12/03/19 07:59 Last Admin: 11/03/19 08:52 Dose: 1 ea Documented by: [id number] Sevelamer HCl (Renagel) 800 mg PO TIDM AYESHA Stop: 12/03/19 07:59 Last Admin: 11/03/19 09:32 Dose: 800 mg Documented by: [id number] Vitamin B Complex/Folic Acid (Nephrocaps) 1 cap PO DAILY AYESHA Stop: 12/03/19 08:59 Last Admin: 11/03/19 09:33 Dose: 1 cap Documented by: [id number] Discontinued Medications Hydralazine HCl (Hydralazine Hcl) 10 mg IV NOW STA Stop: 11/03/19 02:53 Last Admin: 11/03/19 02:58 Dose: 10 mg Documented by: [id number] Vancomycin HCl 1,500 mg/ (Sodium Chloride) 530 mls @ 200 mls/hr IV NOW ONE Stop: 11/03/19 06:18 Last Infusion: 11/03/19 07:09 Dose: 0 mls/hr Documented by: [id number] Admin: 11/03/19 04:29 Dose: 200 mls/hr Documented by: [id number] Piperacillin Sod/Tazobactam Sod (Zosyn) 4.5 gm in 120 mls @ 240 mls/hr IV NOW ONE Stop: 11/03/19 04:09 Last Infusion: 11/03/19 04:57 Dose: 0 mls/hr Documented by: [id number] Admin: 11/03/19 04:27 Dose: 240 mls/hr Documented by: [id number] Sodium Chloride (Nss 1000ml) 1,000 mls @ 200 mls/hr IV .Q5H AYESHA Stop: 11/03/19 09:44 Last Infusion: 11/03/19 08:03 Dose: 0 mls/hr Documented by: [id number] Admin: 11/03/19 05:36 Dose: 200 mls/hr Documented by: [id number] Critical Care Time I have personally spent 40 minutes of critical care time in the direct management of this patient. Indication is febrile state, increased respiratory rate, hypertension, hypoxia. Requiring BiPAP. This includes bedside care, interpretation of diagnostic studies, and testing, discussion with consultants, patient, and family members, and other required patient management activities. This 40 minutes is in excess of all separately billable procedures. Medical Decision Making Laboratory Data Result diagrams: 11/03/19 02:15 11/03/19 02:15 Lab Results 11/03/19 11/03/19 11/03/19 Range/Units 02:15 02:15 02:15 WBC 8.21 (4.8-10.8) K/uL RBC 3.90 L (4.7-6.1) M/uL Hgb 12.6 L (14.0-18.0) g/dL POC Hgb (14.0-18.0) g/dl Hct 37.5 L (42-52) % POC Hct (42-52) % MCV 96.2 (80-100) fL MCH 32.3 (25-34) pg MCHC 33.6 (32-36) g/dL RDW Std Deviation 57.8 H (36.4-46.3) fL RDW Coeff of Rebecca 16.7 H (11.5-14.5) % Plt Count 173 (130-400) K/uL MPV 9.5 (7.4-10.4) fL Immature Gran % (Auto) 0.1 % Neut % (Auto) 72.9 % Lymph % (Auto) 16.2 % Lipscomb % (Auto) 10.0 % Eos % (Auto) 0.2 % Baso % (Auto) 0.6 % Immature Gran # (Auto) 0.01 (0.00-0.02) K/uL Neut # (Auto) 5.98 (1.4-6.5) K/uL Lymph # (Auto) 1.33 (1.2-3.4) K/uL Lipscomb # (Auto) 0.82 H (0.11-0.59) K/uL Eos # (Auto) 0.02 (0-0.5) K/uL Baso # (Auto) 0.05 (0-0.2) K/uL PT (9.0-12.0) Seconds INR (0.9-1.1) APTT (21.0-31.0) Seconds PTT Ratio POC D-Dimer (0-450) ng/mlFEU ABG pH ABG pCO2 ABG pO2 ABG HCO3 ABG O2 Saturation ABG Base Excess Nestor Test Barometric Pressure Oxygen Given POC Sodium (135-144) mmol/L Sodium 130 L (136-145) mmol/L POC Potassium (3.3-5.0) mmol/L Potassium 3.9 (3.5-5.1) mmol/L POC Chloride (101-112) mmol/L Chloride 95 L (98-107) mmol/L Carbon Dioxide 25 (21-32) mmol/L POC Total CO2 (24-31) mmol/L Anion Gap 10.0 (3-11) POC Anion Gap (16-25) mmol/L POC BUN (7-18) mg/dl BUN 32 H (7-18) mg/dl Creatinine 8.36 H* (0.6-1.4) mg/dl POC Creatinine (0.6-1.3) mg/dl Est Cr Clr Drug Dosing 12.6 ml/min Est GFR ( Amer) 8.6 Est GFR (Non-Af Amer) 7.4 BUN/Creatinine Ratio 3.8 L (10-20) Glucose 144 H (70-99) mg/dl POC Glucose (other) (70-99) mg/dl Calcium 9.3 (8.5-10.1) mg/dl POC Ioniz Calcium Liya (1.12-1.32) mmol/l Magnesium 2.4 (1.8-2.4) mg/dl Total Bilirubin 0.8 (0.2-1) mg/dl AST 57 H (15-37) U/L ALT 38 (12-78) U/L Alkaline Phosphatase 176 H (45-117) U/L POC Troponin I (0-0.045) ng/ml Troponin I < 0.015 (0-0.045) ng/ml Total Protein 8.2 (6.4-8.2) gm/dl Albumin 3.7 (3.4-5.0) gm/dl Globulin 4.5 H (2.5-4.0) gm/dl Albumin/Globulin Ratio 0.8 L (0.9-2) Lipase 19 L (73-393) U/L Procalcitonin 3.15 H (0-0.5) ng/ml TSH 1.280 (0.300-4.500) uIu/ml Adenovirus (PCR) (NotDetected) B. pertussis DNA (PCR) (NotDetected) B.parapertussis DNA PCR (NotDetected) C. pneumoniae DNA (PCR) (NotDetected) Coronavirus OC43 (PCR) (NotDetected) Coronavirus HKU1 (PCR) (NotDetected) Coronavirus 229E (PCR) (NotDetected) COVID-19 PCR (Negative) Coronavirus NL63 (PCR) (NotDetected) Human Metapneumovir PCR (NotDetected) Influenza Type A (PCR) (NotDetected) Influenza Type B (PCR) (NotDetected) M. pneumoniae (PCR) (NotDetected) Parainfluenza 1 (PCR) (NotDetected) Parainfluenza 2 (PCR) (NotDetected) Parainfluenza 3 (PCR) (NotDetected) Parainfluenza 4 (PCR) (NotDetected) RSV (PCR) (NotDetected) Entero/Rhino (PCR) (NotDetected) 11/03/19 11/03/19 11/03/19 Range/Units 02:15 02:44 02:44 WBC (4.8-10.8) K/uL RBC (4.7-6.1) M/uL Hgb (14.0-18.0) g/dL POC Hgb 13.9 L (14.0-18.0) g/dl Hct (42-52) % POC Hct 41 L (42-52) % MCV (80-100) fL MCH (25-34) pg MCHC (32-36) g/dL RDW Std Deviation (36.4-46.3) fL RDW Coeff of Rebecca (11.5-14.5) % Plt Count (130-400) K/uL MPV (7.4-10.4) fL Immature Gran % (Auto) % Neut % (Auto) % Lymph % (Auto) % Lipscomb % (Auto) % Eos % (Auto) % Baso % (Auto) % Immature Gran # (Auto) (0.00-0.02) K/uL Neut # (Auto) (1.4-6.5) K/uL Lymph # (Auto) (1.2-3.4) K/uL Lipscomb # (Auto) (0.11-0.59) K/uL Eos # (Auto) (0-0.5) K/uL Baso # (Auto) (0-0.2) K/uL PT 11.4 (9.0-12.0) Seconds INR 1.1 (0.9-1.1) APTT 29.3 (21.0-31.0) Seconds PTT Ratio 1.1 POC D-Dimer > 450 H* (0-450) ng/mlFEU ABG pH ABG pCO2 ABG pO2 ABG HCO3 ABG O2 Saturation ABG Base Excess Nestor Test Barometric Pressure Oxygen Given POC Sodium 130 L (135-144) mmol/L Sodium (136-145) mmol/L POC Potassium 3.9 (3.3-5.0) mmol/L Potassium (3.5-5.1) mmol/L POC Chloride 93 L (101-112) mmol/L Chloride (98-107) mmol/L Carbon Dioxide (21-32) mmol/L POC Total CO2 26 (24-31) mmol/L Anion Gap (3-11) POC Anion Gap 16.0 (16-25) mmol/L POC BUN 32 H (7-18) mg/dl BUN (7-18) mg/dl Creatinine (0.6-1.4) mg/dl POC Creatinine 9.2 H* (0.6-1.3) mg/dl Est Cr Clr Drug Dosing ml/min Est GFR ( Amer) Est GFR (Non-Af Amer) BUN/Creatinine Ratio (10-20) Glucose (70-99) mg/dl POC Glucose (other) 144 H (70-99) mg/dl Calcium (8.5-10.1) mg/dl POC Ioniz Calcium Liya 1.16 (1.12-1.32) mmol/l Magnesium (1.8-2.4) mg/dl Total Bilirubin (0.2-1) mg/dl AST (15-37) U/L ALT (12-78) U/L Alkaline Phosphatase (45-117) U/L POC Troponin I 0.04 (0-0.045) ng/ml Troponin I (0-0.045) ng/ml Total Protein (6.4-8.2) gm/dl Albumin (3.4-5.0) gm/dl Globulin (2.5-4.0) gm/dl Albumin/Globulin Ratio (0.9-2) Lipase (73-393) U/L Procalcitonin (0-0.5) ng/ml TSH (0.300-4.500) uIu/ml Adenovirus (PCR) (NotDetected) B. pertussis DNA (PCR) (NotDetected) B.parapertussis DNA PCR (NotDetected) C. pneumoniae DNA (PCR) (NotDetected) Coronavirus OC43 (PCR) (NotDetected) Coronavirus HKU1 (PCR) (NotDetected) Coronavirus 229E (PCR) (NotDetected) COVID-19 PCR (Negative) Coronavirus NL63 (PCR) (NotDetected) Human Metapneumovir PCR (NotDetected) Influenza Type A (PCR) (NotDetected) Influenza Type B (PCR) (NotDetected) M. pneumoniae (PCR) (NotDetected) Parainfluenza 1 (PCR) (NotDetected) Parainfluenza 2 (PCR) (NotDetected) Parainfluenza 3 (PCR) (NotDetected) Parainfluenza 4 (PCR) (NotDetected) RSV (PCR) (NotDetected) Entero/Rhino (PCR) (NotDetected) 11/03/19 11/03/19 11/03/19 Range/Units 03:00 03:00 03:52 WBC (4.8-10.8) K/uL RBC (4.7-6.1) M/uL Hgb (14.0-18.0) g/dL POC Hgb (14.0-18.0) g/dl Hct (42-52) % POC Hct (42-52) % MCV (80-100) fL MCH (25-34) pg MCHC (32-36) g/dL RDW Std Deviation (36.4-46.3) fL RDW Coeff of Rebecca (11.5-14.5) % Plt Count (130-400) K/uL MPV (7.4-10.4) fL Immature Gran % (Auto) % Neut % (Auto) % Lymph % (Auto) % Lipscomb % (Auto) % Eos % (Auto) % Baso % (Auto) % Immature Gran # (Auto) (0.00-0.02) K/uL Neut # (Auto) (1.4-6.5) K/uL Lymph # (Auto) (1.2-3.4) K/uL Lipscomb # (Auto) (0.11-0.59) K/uL Eos # (Auto) (0-0.5) K/uL Baso # (Auto) (0-0.2) K/uL PT (9.0-12.0) Seconds INR (0.9-1.1) APTT (21.0-31.0) Seconds PTT Ratio POC D-Dimer (0-450) ng/mlFEU ABG pH Cancelled ABG pCO2 Cancelled ABG pO2 Cancelled ABG HCO3 Cancelled ABG O2 Saturation Cancelled ABG Base Excess Cancelled Nestor Test Cancelled Barometric Pressure Cancelled Oxygen Given Cancelled POC Sodium (135-144) mmol/L Sodium (136-145) mmol/L POC Potassium (3.3-5.0) mmol/L Potassium (3.5-5.1) mmol/L POC Chloride (101-112) mmol/L Chloride (98-107) mmol/L Carbon Dioxide (21-32) mmol/L POC Total CO2 (24-31) mmol/L Anion Gap (3-11) POC Anion Gap (16-25) mmol/L POC BUN (7-18) mg/dl BUN (7-18) mg/dl Creatinine (0.6-1.4) mg/dl POC Creatinine (0.6-1.3) mg/dl Est Cr Clr Drug Dosing ml/min Est GFR ( Amer) Est GFR (Non-Af Amer) BUN/Creatinine Ratio (10-20) Glucose (70-99) mg/dl POC Glucose (other) (70-99) mg/dl Calcium (8.5-10.1) mg/dl POC Ioniz Calcium Liya (1.12-1.32) mmol/l Magnesium (1.8-2.4) mg/dl Total Bilirubin (0.2-1) mg/dl AST (15-37) U/L ALT (12-78) U/L Alkaline Phosphatase (45-117) U/L POC Troponin I (0-0.045) ng/ml Troponin I (0-0.045) ng/ml Total Protein (6.4-8.2) gm/dl Albumin (3.4-5.0) gm/dl Globulin (2.5-4.0) gm/dl Albumin/Globulin Ratio (0.9-2) Lipase (73-393) U/L Procalcitonin (0-0.5) ng/ml TSH (0.300-4.500) uIu/ml Adenovirus (PCR) Not Detected (NotDetected) B. pertussis DNA (PCR) Not Detected (NotDetected) B.parapertussis DNA PCR Not Detected (NotDetected) C. pneumoniae DNA (PCR) Not Detected (NotDetected) Coronavirus OC43 (PCR) Not Detected (NotDetected) Coronavirus HKU1 (PCR) Not Detected (NotDetected) Coronavirus 229E (PCR) Not Detected (NotDetected) COVID-19 PCR NEGATIVE (Negative) Coronavirus NL63 (PCR) Not Detected (NotDetected) Human Metapneumovir PCR Not Detected (NotDetected) Influenza Type A (PCR) Not Detected (NotDetected) Influenza Type B (PCR) Not Detected (NotDetected) M. pneumoniae (PCR) Not Detected (NotDetected) Parainfluenza 1 (PCR) Not Detected (NotDetected) Parainfluenza 2 (PCR) Not Detected (NotDetected) Parainfluenza 3 (PCR) Not Detected (NotDetected) Parainfluenza 4 (PCR) Not Detected (NotDetected) RSV (PCR) Not Detected (NotDetected) Entero/Rhino (PCR) Not Detected (NotDetected) 11/03/19 Range/Units 05:50 WBC (4.8-10.8) K/uL RBC (4.7-6.1) M/uL Hgb (14.0-18.0) g/dL POC Hgb (14.0-18.0) g/dl Hct (42-52) % POC Hct (42-52) % MCV (80-100) fL MCH (25-34) pg MCHC (32-36) g/dL RDW Std Deviation (36.4-46.3) fL RDW Coeff of Rebecca (11.5-14.5) % Plt Count (130-400) K/uL MPV (7.4-10.4) fL Immature Gran % (Auto) % Neut % (Auto) % Lymph % (Auto) % Lipscomb % (Auto) % Eos % (Auto) % Baso % (Auto) % Immature Gran # (Auto) (0.00-0.02) K/uL Neut # (Auto) (1.4-6.5) K/uL Lymph # (Auto) (1.2-3.4) K/uL Lipscomb # (Auto) (0.11-0.59) K/uL Eos # (Auto) (0-0.5) K/uL Baso # (Auto) (0-0.2) K/uL PT (9.0-12.0) Seconds INR (0.9-1.1) APTT (21.0-31.0) Seconds PTT Ratio POC D-Dimer (0-450) ng/mlFEU ABG pH 7.45 ABG pCO2 33 L ABG pO2 79 L ABG HCO3 23 ABG O2 Saturation 96.0 H ABG Base Excess -1.0 Nestor Test Pos Barometric Pressure 736.7 Oxygen Given 60% FiO2 POC Sodium (135-144) mmol/L Sodium (136-145) mmol/L POC Potassium (3.3-5.0) mmol/L Potassium (3.5-5.1) mmol/L POC Chloride (101-112) mmol/L Chloride (98-107) mmol/L Carbon Dioxide (21-32) mmol/L POC Total CO2 (24-31) mmol/L Anion Gap (3-11) POC Anion Gap (16-25) mmol/L POC BUN (7-18) mg/dl BUN (7-18) mg/dl Creatinine (0.6-1.4) mg/dl POC Creatinine (0.6-1.3) mg/dl Est Cr Clr Drug Dosing ml/min Est GFR ( Amer) Est GFR (Non-Af Amer) BUN/Creatinine Ratio (10-20) Glucose (70-99) mg/dl POC Glucose (other) (70-99) mg/dl Calcium (8.5-10.1) mg/dl POC Ioniz Calcium Liya (1.12-1.32) mmol/l Magnesium (1.8-2.4) mg/dl Total Bilirubin (0.2-1) mg/dl AST (15-37) U/L ALT (12-78) U/L Alkaline Phosphatase (45-117) U/L POC Troponin I (0-0.045) ng/ml Troponin I (0-0.045) ng/ml Total Protein (6.4-8.2) gm/dl Albumin (3.4-5.0) gm/dl Globulin (2.5-4.0) gm/dl Albumin/Globulin Ratio (0.9-2) Lipase (73-393) U/L Procalcitonin (0-0.5) ng/ml TSH (0.300-4.500) uIu/ml Adenovirus (PCR) (NotDetected) B. pertussis DNA (PCR) (NotDetected) B.parapertussis DNA PCR (NotDetected) C. pneumoniae DNA (PCR) (NotDetected) Coronavirus OC43 (PCR) (NotDetected) Coronavirus HKU1 (PCR) (NotDetected) Coronavirus 229E (PCR) (NotDetected) COVID-19 PCR (Negative) Coronavirus NL63 (PCR) (NotDetected) Human Metapneumovir PCR (NotDetected) Influenza Type A (PCR) (NotDetected) Influenza Type B (PCR) (NotDetected) M. pneumoniae (PCR) (NotDetected) Parainfluenza 1 (PCR) (NotDetected) Parainfluenza 2 (PCR) (NotDetected) Parainfluenza 3 (PCR) (NotDetected) Parainfluenza 4 (PCR) (NotDetected) RSV (PCR) (NotDetected) Entero/Rhino (PCR) (NotDetected) Imaging Data My Impression: Probable right lower lobe infiltrate, edema. MDM Narrative Patient was seen and evaluated as above in room C 10. Review was performed of nursing notes and vital signs. I did review pertinent previous visits and patient history. After obtaining a thorough history and physical examination the above work up was performed. The patient has a very complex past medical history. He presents to us today and is quite ill. He is febrile with an inc reased respiratory rate, hypoxia, hypertensive. He was started on 15 L nonrebreather of oxygen. EKG was obtained. This revealed sinus tachycardia rate of [address] elevation. QTc 452. Chest x-ray is concerning for right lower lobe infiltrate/edema. White blood cell count within normal limits. Hemoglobin 12.6. On arrival POC blood work was obtained and included with that was a d-dimer but I will note that in the setting believe that PE is less likely and will also note that he had a CTA of the chest that was negative for PE less than 1 month ago. Although the patient initially seemed to be improving with the nonrebreather he then began to desat to the high 80s and is felt the BiPAP at this point was warranted. COVID testing was negative. Broad-spectrum antibiotics were ordered. I started gentle fluid hydration as he was febrile but will note with the chest x-ray and his past medical history do not believe that he requires a bolus as I believe this would worsen his condition. He certainly will require inpatient management for further treatment. Case discussed with the hospitalist. Please refer to further documentation regarding his stay. Case was discussed with the attending physician. In the evaluation and treatment of this patient, the following differential diagnoses were considered: MA, ASC, Dysrhythmia, Angina, Mediastinitis, GERD, Esophagitis, PE, Pneumonia, Bronchitis, Costochondritis, Rib Fracture, Zoster, sepsis, fluid overload, among others. Impression & Plan Fever, Hypertension, Acute dyspnea, Pneumonia Discharge Plan Visit Data *Final* Discharge Date/Time: 11/03/19 07:10 Chief Complaint: Shortness of Breath/Dyspnea Stated Complaint: Breathing difficulty ED Provider: Rere Juares ED Midlevel Provider: Sarath Valverde Discharge Problem: Fever, Hypertension, Acute dyspnea, Pneumonia Patient Disposition: Admitted As Inpatient Condition: Fair Discharge Instructions Interventions: ED Discharge Assessment Last Done: 11/03/19 07:10
[2019-11-03 03:13] LABS: INR 1.1 (0.9-1.1); Partial Thromboplastin Ratio 1.1; Partial Thromboplastin Time 29.3 Seconds (21.0-31.0); Prothrombin Time 11.4 Seconds (9.0-12.0)
[2019-11-03 03:32] LABS: Alanine Aminotransferase 38 U/L (12-78); Albumin Globulin Ratio 0.8 (0.9-2); Albumin Level 3.7 gm/dl (3.4-5.0); Alkaline Phosphatase 176 U/L (45-117); Aspartate Aminotransferase 57 U/L (15-37); BUN Creatinine Ratio 3.8 (10-20); Bilirubin,Total 0.8 mg/dl (0.2-1); Blood Urea Nitrogen 32 mg/dl (7-18); Calcium 9.3 mg/dl (8.5-10.1); Carbon Dioxide 25 mmol/L (21-32); Chloride 95 mmol/L (98-107); Creatinine Clr Calc Pharmacy 12.6 ml/min; Est GFR (African American) 8.6; Est GFR (Non-African American) 7.4; Globulin 4.5 gm/dl (2.5-4.0); Glucose 144 mg/dl (70-99); Lipase 19 U/L (73-393); Magnesium 2.4 mg/dl (1.8-2.4); Potassium 3.9 mmol/L (3.5-5.1); Sodium 130 mmol/L (136-145); Total Protein 8.2 gm/dl (6.4-8.2); Troponin I < 0.015 ng/ml (0-0.045)
[2019-11-03] MEDS ORDERED: VANCOMYCIN CONSULT ACTIVE PRN (03:40)
[2019-11-03] MEDS ORDERED: VANCOMYCIN HCL 1,500 MG in SODIUM CHLORIDE 0.9% 500 ML IV ONE (03:40)
[2019-11-03] MEDS ORDERED: PIPERACILLIN/TAZOBACTAM 4.5 GM/120 ML BAG IV ONE (03:40)
[2019-11-03] MEDS ORDERED: PIPERACILL/TAZOBAC CONSULT ACTIVE PRN (03:40)
[2019-11-03] MEDS ORDERED: SODIUM CHLORIDE 0.9% 1000ML 1,000 ML IV SCH (04:45)
[2019-11-03 05:31] LABS: Adenovirus PCR Not Detected (NotDetected); Bordetella parapertussis PCR Not Detected (NotDetected); Bordetella pertussis PCR Not Detected (NotDetected); Chlamydia pneumoniae PCR Not Detected (NotDetected); Coronavirus 229E PCR Not Detected (NotDetected); Coronavirus HKU1 PCR Not Detected (NotDetected); Coronavirus NL63 PCR Not Detected (NotDetected); Coronavirus OC43PCR Not Detected (NotDetected); Human Metapneumovirus PCR Not Detected (NotDetected); Influenza A PCR Not Detected (NotDetected); Influenza B PCR Not Detected (NotDetected); Mycoplasma pneumoniae PCR Not Detected (NotDetected); Parainfluenza Virus 1 PCR Not Detected (NotDetected); Parainfluenza Virus 2 PCR Not Detected (NotDetected); Parainfluenza Virus 3 PCR Not Detected (NotDetected); Parainfluenza Virus 4 PCR Not Detected (NotDetected); Respiratory Syncytial VirusPCR Not Detected (NotDetected); Rhinovirus/Enterovirus PCR Not Detected (NotDetected)
[2019-11-03 06:01] LABS: HCO3 ABG 23 mmol/L (19-24); PCO2 ABG 33 mmHg (35-46); PO2 ABG 79 mmHg (80-95); pH ABG 7.45 (7.35-7.45)
[2019-11-03 06:03] LABS: Allen Test Pos (Pos)
--- NOTE | 2019-11-03 06:20 | History & Physical Report ---
Date of Service November 03, 2019 Assessment & Plan (1) Hypertension: Bernard Jones is a 34 year old man with a past medical history significant for DMI ESRD on hemodialysis TThSa, History of opiate abuse on methadone, Hepatitis C, HTN chronic pain and seizures who is here today for bialteral bact erial pneumonia Bacterial pneumonia CXR showing what appears to be bilateral basilar consolidation elevated white With recent admission and severity of illness we will cover broadly with vanc and Pip Tazo Patient on Bipap at 10-5 on 40% FiO2 and tolerating well Admitting to PCU for close monitoring End-stage renal disease Patient due for dialysis tomorrow Consulted Dr. English his grinder operator Continuing his renal vitamins and PHOS binder Hypertension Initially hypertensive to the 220's Continuing home amlodipine, Bumex, irbesartan, hydralazine, metoprolol Hepatitis C Continuing current treatment with Epclusa History of Opiate Abuse Continuing home methadone 10 mg daily DVT PPx: heparin F/E/N: Dialysis diet received 1 L NSS in ED Dispo: PCU for continued close monitoring IV vanc and zosyn. Hope to wean off bipap and patient should be due for dialysis today. Full Code (2) Hepatitis C: (3) Gastroparesis: (4) End stage renal disease on dialysis due to type 1 diabetes mellitus: (5) Diabetic retinopathy of both eyes: (6) Diabetes mellitus type I: (7) Anxiety: (8) Anemia: (9) Bacterial pneumonia: History of Present Illness Chief Complaint: Shortness of Breath Primary Care Provider: PIPER Caldera Bernard Jones is a 34 year old man with a past medical history significant for DMI ESRD on hemodialysis TThSa, History of opiate abuse on methadone, Hepatitis C, HTN chronic pain and seizures who presents today with fever chills and shortness of breath. He last felt well on Saturday and yesterday noticed some fevers as high as 101 associated with chills and sweating and slight shortness of breath. This morning at 1 am he awoke and felt like he couldn't breathe. ON presentation to ED he was found to be laboring quite a lot to breathe. His BP has remained elevated throughout. tachycardic to about 110, tachypneic to 32 respirations per minute, febrile at 39.6. Labwork was signficant for hemoglobin of 12.6, Elevated D dimer to >450, hyponatremia to 130, creatinine of 9.2 BUN of 32. Elevated Procalcitonin of 3.15 Patient placed on Bipap which improved his vital signs, given zosyn vancomycin 1 L of NSS and admitted to hospitalist service. ABG checked after patient on bipap showing no respiratory acidosis and adequate oxygenation. Patient is a former tobacco abuser former alcohol abuser and former IV drug abuser currently receiving treatment for hepatitis C. He denies any recent substance or alcohol use history. Patient is full code. Allergies Allergy/AdvReac Type Severity Reaction Status Date / Time No Known Drug Allergies Allergy Unknown Verified 11/03/19 03:43 Home Medications Home Medications Medication Instructions Recorded Confirmed Type clonazepam 0.5 mg PO BID 11/03/18 11/03/19 History Velphoro 1,000 mg PO TIDM 03/24/19 11/03/19 History Fransisca-Jj 0.8 mg PO DAILY 05/20/19 11/03/19 History Humalog U-100 Insulin 1 sliding scale dose SUBCUT UD PRN 05/22/19 11/03/19 Rx #15 ml clonidine 1 patch TRANSDERMAL CQWK #5 ea 05/22/19 11/03/19 Rx metoprolol succinate 75 mg PO BID #90 tab 06/01/19 11/03/19 Rx blood sugar diagnostic #100 ea 06/08/19 10/12/19 Rx blood-glucose meter #1 ea 06/08/19 10/12/19 Rx lancets 30 gauge #100 ea 06/08/19 10/12/19 Rx pen needle, diabetic 31 gauge x #100 ea 07/03/19 10/12/19 Rx 1/4" sofosbuvir-velpatasvir [Epclusa] 1 tab PO DAILY 10/09/19 11/03/19 History tramadol 50 mg PO TID PRN 10/09/19 11/03/19 History amlodipine 10 mg tablet 10 mg PO DAILY #30 tab 10/12/19 11/03/19 Rx irbesartan 300 mg tablet 300 mg PO DAILY #30 tab 10/12/19 11/03/19 Rx gabapentin 100 mg capsule 100 mg PO HS #30 cap 10/14/19 11/03/19 Rx bumetanide 1 mg PO QAM 11/03/19 11/03/19 History ferric citrate [Auryxia] 210 mg PO TIDM 11/03/19 11/03/19 History hydralazine 50 mg PO TID 11/03/19 11/03/19 History insulin pump cartridge [Omnipod 11/03/19 11/03/19 History Dash 5 Pack Pod] methadone 90 mg PO DAILY 11/03/19 11/03/19 History sevelamer carbonate 800 mg PO TID 11/03/19 11/03/19 History Past Med/Surg History Medical History Anemia Anxiety Diabetes mellitus type I Diabetic retinopathy of both eyes End stage renal disease on dialysis due to type 1 diabetes mellitus Gastroparesis Hepatitis C History of seizure seizure-like activity 02/14/2019 in setting of severe hyperglycemia (patient states he missed dialysis/insulin dose), DKA, confusion- lifeflighted to [place]/intubated/placed on ventilator. DKA managed with insulin drip on admission. EEG with no seizure activity noted. Neurology consulted and initially started patient on prophylactic Keppra but suspected seizure was complication of hyperglycemia and recommended weaning off anticonvulsants/advised no further neurology workup needed. Per patient, medication/dialysis compliance since discharge with glucoses in the range on 100's-200's on self-checks. Hypertension Nephrotic syndrome Peritonitis currently on intraperitoneal abx Substance abuse Withdrawal from opioids Surgical History H/O eye surgery Hx of tonsillectomy Hx of tooth extraction Hx of vitrectomy B/L; right vitrectomy: 05/26/18: LMA#5 at [facility] Peritoneal dialysis catheter in place Family History Grandfather (Maternal) Diabetes Grandfather (Paternal) Diabetes Grandmother (Paternal) Diabetes Grandmother (Maternal) Diabetes Aunt Diabetes Uncle Diabetes Father Hypertension Brother Hypertension Social History Preferred Language: Wolof Communication Ability: Effective Visual Impairment: Severely Limited Hearing Ability: Normal Lathe Set Up Person Required: No Beliefs That Will Affect Care: None Current Living Situation: Alone Current Living Situation Comment: son with patient Other Information That Helps Us Care for You: No Feels Safe at Home: Yes Safety Concerns: Feels Safe At This Time Smoking Status: Former smoker Tobacco Type: smokeless tobacco ; Do You Dip or Chew Tobacco: Yes ; Second Hand Exposure: No ; Tobacco Cessation Education Requested by Patient: No Hx Alcohol Use: No Hx Substance Use: No Childhood Exposure to Second-Hand Smoke: No Diet Comment: diabetic caffeine: Yes Dental Care, Regularly: Yes Seatbelt Use: always Sunscreen Use: Yes Review of Systems Constitutional: + fever, + chills, + fatigue and + weakness; no increased appetite Eyes: no problem reported Ear, Nose, Mouth, Throat: no problem reported Respiratory: + cough, + dyspnea and + dyspnea on exertion; no wheezing Cardiovascular: + dyspnea, + dyspnea at rest and + dyspnea on exertion; no chest pain, no palpitations, no lightheadedness, no syncope and no calf pain Gastrointestinal: no abdominal pain, no nausea and no vomiting Neurologic: no headache(s) and no confusion Physical Exam Constitutional: well developed, well nourished and + acute distress; no altered mental status Patient with dialysis line in place subclavian has been there for some time. Eyes: PERRL, conjunctivae normal, anicteric sclerae ENMT: external ear and nose normal, oropharynx normal Respiratory: + respiratory distress, + labored breathing and + uses accessory muscles; + abnormal respiratory effort Auscultation: + diminished lung sounds (bilateral bases) and + crackles Cardiovascular: Rate/Rhythm: regular rhythm and + tachycardic Heart Sounds: normal S1 and normal S2 Vessels: normal peripheral pulses Gastrointestinal (Abdomen): normal bowel sounds, soft, nontender, no hepatosplenomegaly Results & Data Results & Data ([facility]) Vital Signs (Past 12 Hours) Vital Signs Temp Pulse Resp BP Pulse Ox 11/03/19 05:30 39.6 C H 90 20 178/89 H 97 11/03/19 05:09 93 H 19 95 11/03/19 04:30 96 H 32 H 190/85 H 92 11/03/19 04:00 101 H 26 H 196/89 H 91 11/03/19 03:32 110 H 24 94 11/03/19 03:30 106 H 34 H 217/100 H 90 11/03/19 03:00 107 H 29 H 225/107 H 11/03/19 02:45 109 H 29 H 230/111 H 93 11/03/19 02:44 38.4 C H 109 H 30 H 225/107 H 82 L Code Status & VTE Plan VTE Prophylaxis Plan VTE Prophylaxis will be ordered: Yes Supervising Physician Co-Signing Physician Notes Attending addendum: I have physically seen this patient, have supervised the medical residents activities, and agree with the H&P unless as otherwise noted. Assessment and Plan: Acute respiratory failure with hypoxia and hypercapnia/severe bacterial pneumonia, right greater than left- Continue BiPAP with current settings, and check ABG in 30 minutes. Vancomycin IV and Zosyn IV with renal dosing. Duonebs every 4 hours while awake and every 2 hours when necessary.. COVID-19 negative while in the ED. ESRD on HD/hypertension- Consult his grinder operator Dr. English. Continue repeat routine support medications. Continue amlodipine, Bumex, irbesartan, hydralazine and metoprolol. Hepatitis C- Continue Epclusa. Remainder of orders and notations as noted. (1) Diabetes mellitus type I Chronic kidney disease stage: on chronic dialysis Diabetes mellitus complication detail: with chronic kidney disease Diabetes mellitus complication status: with kidney complications Qualified Code(s): E10.22 - Type 1 diabetes mellitus with diabetic chronic kidney disease; N18.6 - End stage renal disease; Z99.2 - Dependence on renal dialysis (2) Hypertension Hypertension type: essential hypertension Qualified Code(s): I10 - Essential (primary) hypertension
[2019-11-03] MEDS ORDERED: GLUCAGON FOR INJ 1 MG VIAL SQ PRN (07:33)
[2019-11-03] MEDS ORDERED: GLUCOSE 40% GEL 15 GM TUBE PO PRN (07:33)
[2019-11-03] MEDS ORDERED: ONDANSETRON INJ 2 MG/ML 2 ML VIAL IV PRN (07:33)
[2019-11-03] MEDS ORDERED: ACETAMINOPHEN 325 MG TAB PO PRN (07:33)
[2019-11-03] MEDS ORDERED: GLUCOSE 10 TABS/TUBE PO PRN (07:33)
[2019-11-03] MEDS ORDERED: DEXTROSE 50% 50 ML SYRINGE IV PRN (07:33)
--- NOTE | 2019-11-03 07:55 | XRay Report ---
XR chest 1V portable CLINICAL HISTORY: fever, dyspnea COMPARISON STUDY: 10/09/2019 FINDINGS: Moderate increase in cardiac size. Permacath remains in superior vena cava. Interval development of pulmonary edema. Diaphragms are smooth. IMPRESSION: Pulmonary edema ACT 112: Negative or not required by law. The above report was generated using voice recognition software. It may contain grammatical, syntax or spelling errors. Electronically signed by: Zi Agarwal M.D. 11/03/2019 7:54 AM
[2019-11-03] MEDS: CHECK CLONIDINE PATCH PLACEMENT SCH ×2 (08:52→16:17)
[2019-11-03] MEDS ORDERED: INSULIN GLARGINE SOLOSTAR 100 UNITS/ML 3 ML PEN SC SCH (09:00)
[2019-11-03] MEDS: IRBESARTAN 150 MG TAB PO SCH (09:32)
[2019-11-03] MEDS: SEVELAMER HCL 800 MG TABLET PO SCH ×3 (09:32→16:36)
[2019-11-03] MEDS: AMLODIPINE BESYLATE 5 MG TAB PO SCH (09:33)
[2019-11-03] MEDS: METOPROLOL SUCC 25MG EXT REL TAB PO SCH ×2 (09:33→20:41)
[2019-11-03] MEDS: NEPHROCAPS PO SCH (09:33)
[2019-11-03] MEDS: INSULIN ASPART 100 UNITS/ML 3 ML PEN SC SCH ×4 (09:35→20:39)
[2019-11-03] MEDS: clonazePAM 0.5 MG TAB PO SCH ×2 (09:37→20:41)
[2019-11-03] MEDS: METHADONE HCL 10 MG TAB PO SCH (09:37)
[2019-11-03] MEDS: HEPARIN SOD 5,000 UNIT/0.5 ML VIAL SQ SCH ×2 (09:38→20:38)
[2019-11-03] MEDS ORDERED: PHARMACY GLYCEMIC MGMT CONSULT SCH (10:38)
--- NOTE | 2019-11-03 10:51 | Pharmacy Report ---
Pharmacy Glycemic Short Note 2 - Date of Service November 03, 2019 - Glycemic Short BSG Results (Last 24 hours): 11/03/19 11/03/19 11/03/19 02:15 02:44 07:30 Glucose 144 H POC Glucose 244 H POC Glucose (other) 144 H OUTPATIENT ANTIDIABETIC REGIMEN: * Novolog per pump * A1c = 8.1% 10/09/19 (but interpret with caution due to shortened RBC lifespan in ESRD) ASSESSMENT: * Type 1 diabetic known to the Glycemic Control Service from prior admissions, admitted to [facility] overnight for pneumonia * Patient has his insulin pump in place this AM, delivering his basal rate however he does not have the remote with him to use the bolus feature. Will convert patient to basal/bolus regimen based upon experience from prior admissions. His insulin pump will be discontinued this AM. PLAN FOR INPATIENT GLYCEMIC CONTROL: * Hold outpatient oral diabetes medications * Basal insulin * Lantus 18 units SQ QAM * Bolus insulin * NovoLog per scale ACHS or Q6hrs while NPO * Goal Range: Low 110 mg/dL - High 140 mg/dL * Correction Factor: 35 mg/dL/unit * Nutritional / Prandial insulin per carb ratio of 1 unit per 14 grams CHO consumed PLAN FOR DISCHARGE: * To be determined. Would plan to transition patient back to his insulin pump prior to discharge if he can provide supplies and remote for operation. He may need to suspend his basal rates on the pump upon discharge depending upon the timing of his last Lantus dose.
--- NOTE | 2019-11-03 11:03 | Pharmacy Report ---
Pharmacy Abx Dose Short Note - Date of Service November 03, 2019 - Assessment & Plan Assessment * 34 year old M receiving VANCOMYCIN + ZOSYN for treatment of CAP * + risk factors for MRSA colonization (ESRD on HD); MRSA nasal swab pending * Was admitted to [facility] once in last 90 days however was hospitalized for less than 48 hrs but did receive both Vancomycin + Zosyn * CXR read as: Interval development of pulmonary edema * Biofire testing negative (influenza, c pneumoniae, m. pneumoniae, etc...) * Negative COVID19 testing * BLCX's pending * Procal 3.15 (however ESRD can lead to elevations) Plan Vancomycin * 1500mg x 1 (~19mg/kg) x 1 given this AM * No HD planned today * Will check random level w/ AM labs tomorrow * Plan to redose when level b/w 15-20mcg/mL or anticipated to be so following HD session * Goal trough level for pulm infxn : 15 to 20 mcg/mL Zosyn * 4.5gm x 1 given in ED, will begin 3.375gm ext-infusion (over 4 hrs) Q 12 hrs for eCrCl < 20 and BMI < 35 Pharmacy will continue to follow and will adjust dose/frequency as necessary. Eligio clements.
[2019-11-03] MEDS ORDERED: INSULIN GLARGINE SOLOSTAR 100 UNITS/ML 3 ML PEN SC ONE (11:30)
[2019-11-03] MEDS: PIPERACILLIN/TAZOBACTAM 3.375 GM in DEXTROSE 5% 100 ML IV SCH (11:43)
--- NOTE | 2019-11-03 16:02 | Electrocardiogram Report ---
Test Reason : Blood Pressure : / mmHG Vent. Rate : 110 BPM Atrial Rate : 110 BPM P-R Int : 146 ms QRS Dur : 090 ms QT Int : 334 ms P-R-T Axes : 045 012 065 degrees QTc Int : 452 ms Poor data quality, interpretation may be adversely affected Sinus tachycardia Otherwise normal ECG When compared with ECG of 09-OCT-2019 04:07, DE interval has decreased QRS duration has decreased Criteria for Septal infarct are no longer Present T wave amplitude has decreased in Lateral leads Confirmed by Haseeb Torres ([id number]) on 11/03/2019 4:01:46 PM Referred By: REFERRED SELF Confirmed By:Haseeb Torres
--- NOTE | 2019-11-03 16:49 | Consultation Report ---
DATE OF CONSULTATION: 11/03/2019 NEPHROLOGY CONSULTATION REASON FOR CONSULT: Dialysis patient admitted with pneumonia/sepsis. HISTORY OF PRESENT ILLNESS: The patient is a 34-year-old male with type 1 diabetes with ESRD, on hemodialysis [id number], history of opiate abuse, hepatitis C, hypertension, chronic pain as well as history of seizure, presented to the hospital earlier today with fever, chills and shortness of breath, which started very abruptly. Workup so far has revealed pneumonia with sepsis. He is starting to get better as his most recent vital signs are normal. His last dialysis was on Saturday. Earlier today, he was felt to be in septic and was in lot sicker condition, but seemed to have recovered fairly fast. ALLERGIES: No known drug allergies. HOME MEDICATIONS: Extensive and was reviewed in detail. PAST MEDICAL AND SURGICAL HISTORY: Type 1 diabetes, ESRD, on chronic hemodialysis TTS, history of seizure, hepatitis C, gastroparesis, anemia, anxiety, substance abuse, hypertension, history of peritonitis, eye surgery, tonsillectomy, tooth extraction, PD catheter still in place. REVIEW OF SYSTEMS: Detailed in HPI; unless stated otherwise, 12-point system reviewed and negative. PHYSICAL EXAMINATION: GENERAL: Well developed, well nourished, in no respiratory distress at this time. Normal mental status. HEENT: Mucous membranes moist. NECK: Supple. No jugular venous distention. CHEST: Bilaterally clear to auscultation. CARDIOVASCULAR: S1, S2 regular. ABDOMEN: Soft, nontender. EXTREMITIES: Show no edema. CHEST X-RAY: Shows pulmonary edema. LABORATORY TEST: This morning shows hemoglobin 12.6, WBC count 8.21, platelet count 173. ASSESSMENT AND PLAN: A 34-year-old male with type 1 diabetes with end-stage renal disease, on hemodialysis [id number], admitted with fever and shortness of breath. Shortness of breath: Given that this was related with fever of 101 degree Fahrenheit, he was felt to be in sepsis related with pneumonia, for which he is being treated. However, given the chest x-ray finding, there is obviously some component of fluid, but I do not think this is the predominant cause. Because of the limited dialysis schedule, we will not be able to do him today, but we will do him tomorrow. Earlier today, he was also much sicker with sepsis. He does not have any major electrolyte imbalance; slight hyponatremia is related with end-stage renal disease and not dangerously low. It is encouraging to see that the patient is significantly better than at the time of admission. MTDD
[2019-11-03 17:14] LABS: Appearance Urine Clear (Clear); Bacteria Urine Automated Negative (Negative); Bilirubin Urine Negative (Negative); Blood Urine Negative (Negative); Cast Urine Automated 0 /lpf (0-5); Color Urine Yellow; Glucose Urine UA 2+ (Negative); Ketones Urine Negative (Negative); Leukocyte Esterase Urine Negative (Negative); Nitrite Urine Negative (Negative); RBC Urine Automated 0-4 /hpf (0-4); Specific Gravity Urine 1.014 (1.000-1.030); Urobilinogen Urine Negative (Negative); pH Urine 7.5 (4.5-7.5)
[2019-11-03 17:18] LABS: Protein Urine 2+ (Negative); Sulfosalicylic Acid Urine Positive (Negative)
[2019-11-03 17:41] LABS: Amphetamines+Metham, Urine Neg (Neg); Barbiturates, Urine Neg (Neg); Benzodiazepine, Urine Neg (Neg); Cocaine, Urine Neg (Neg); MDMA (Ecstacy), Urine Neg (Neg); Methadone, Urine Pos (Neg); Opiate, Urine Neg (Neg); Phencyclidine, Urine Neg (Neg)
[2019-11-03] MEDS: GABAPENTIN 100 MG CAP PO SCH (20:39)
[2019-11-04] MEDS: CHECK CLONIDINE PATCH PLACEMENT SCH ×4 (00:42→23:43)
[2019-11-04] MEDS: PIPERACILLIN/TAZOBACTAM 3.375 GM in DEXTROSE 5% 100 ML IV SCH ×3 (01:29→23:44)
[2019-11-04] MEDS: INSULIN ASPART 100 UNITS/ML 3 ML PEN SC SCH ×5 (01:30→22:16)
--- NOTE | 2019-11-04 06:06 | Billing Data ---
Date of Service November 04, 2019 Coding Level of Care Code 63216 Initial Inpt Care Lvl 3
[2019-11-04] MEDS: METHADONE HCL 10 MG TAB PO SCH ×2 (07:50→14:20)
[2019-11-04] MEDS: clonazePAM 0.5 MG TAB PO SCH ×3 (07:50→22:02)
[2019-11-04] MEDS: NEPHROCAPS PO SCH ×2 (07:50→14:21)
[2019-11-04] MEDS: AMLODIPINE BESYLATE 5 MG TAB PO SCH ×2 (07:51→14:21)
[2019-11-04] MEDS: METOPROLOL SUCC 25MG EXT REL TAB PO SCH ×3 (07:51→21:57)
[2019-11-04] MEDS: VELPATASVIR PO SCH ×2 (07:51→14:22)
[2019-11-04] MEDS: SOFOSBUVIR PO SCH ×2 (07:51→14:22)
[2019-11-04] MEDS: IRBESARTAN 150 MG TAB PO SCH ×2 (07:52→14:21)
[2019-11-04] MEDS: SEVELAMER HCL 800 MG TABLET PO SCH ×3 (07:52→16:34)
[2019-11-04] MEDS ORDERED: LORazepam 0.5 MG/1 ML VIAL IV STA (08:49)
[2019-11-04] MEDS ORDERED: HydrALAZINE HCL 20 MG/ML VIAL IV STA (08:49)
[2019-11-04] MEDS ORDERED: LORazepam 2 MG/4 ML VIAL ONE (08:57)
[2019-11-04] MEDS ORDERED: BUMETANIDE 1 MG in SYRINGE 0 ML IV ONE (09:00)
[2019-11-04] MEDS ORDERED: INSULIN GLARGINE SOLOSTAR 100 UNITS/ML 3 ML PEN SC SCH (09:00)
--- NOTE | 2019-11-04 09:10 | XRay Report ---
XR chest 1V portable CLINICAL HISTORY: hypoxia COMPARISON STUDY: 11/03/2019 FINDINGS: The cardiac and mediastinal contours remain stable. There is a right-sided double lumen joseline tral venous catheter. Superimposed on the previously identified pulmonary edema, the patient has deve loped multifocal nodular opacities. A superimposed infectious process must be considered. There are n o significant pleural effusions.[ IMPRESSION: 1. Interval development of multifocal nodular airspace opacities superimposed on the previously descr ibed pulmonary edema. A superimposed infectious process must be considered. ACT 112: Negative or not required by law. Electronically signed by: Vincenzo Israel M.D. 11/04/2019 9:09 AM
--- NOTE | 2019-11-04 11:47 | Pharmacy Report ---
Pharmacy Glycemic Short Note 2 - Date of Service November 04, 2019 - Glycemic Short BSG Results (Last 24 hours): 11/03/19 11/03/19 11/04/19 16:07 20:33 01:21 POC Glucose 245 H 226 H 167 H 11/04/19 11/04/19 07:23 10:59 POC Glucose 185 H 127 H OUTPATIENT ANTIDIABETIC REGIMEN: * Novolog per pump * A1c = 8.1% 10/09/19 (but interpret with caution due to shortened RBC lifespan in ESRD) ASSESSMENT: 11/03 * BSGs did trend up initially following transition from insulin pump to SQ basal/bolus regimen, however BSGs now near goal today * Fasting BSG 167-185 this AM with 18 units basal on board and after receiving 1 unit Novolog correction overnight - will continue same * Post-prandial BSGs elevated yesterday however pt did start the day with what appeared to be basal insulin deficiency and BSGs did not climb following meals. Will continue same Novolog doses at this time as they have performed well in the past. 11/02 * Type 1 diabetic known to the Glycemic Control Service from prior admissions, admitted to [facility] overnight for pneumonia * Patient has his insulin pump in place this AM, delivering his basal rate however he does not have the remote with him to use the bolus feature. Will convert patient to basal/bolus regimen based upon experience from prior admissions. His insulin pump will be discontinued this AM. PLAN FOR INPATIENT GLYCEMIC CONTROL: * Hold insulin pump * Basal insulin * Lantus 18 units SQ QAM * Bolus insulin * NovoLog per scale ACHS or Q6hrs while NPO * Goal Range: Low 110 mg/dL - High 140 mg/dL * Correction Factor: 35 mg/dL/unit * Nutritional / Prandial insulin per carb ratio of 1 unit per 14 grams CHO consumed PLAN FOR DISCHARGE: * To be determined. Would plan to transition patient back to his insulin pump prior to discharge if he can provide supplies and remote for operation. He may need to suspend his basal rates on the pump upon discharge depending upon the timing of his last Lantus dose.
--- NOTE | 2019-11-04 11:57 | Pharmacy Report ---
Pharmacy Abx Dose Short Note - Date of Service November 04, 2019 - Assessment & Plan Assessment * 34 year old M receiving VANCOMYCIN + ZOSYN for treatment of CAP * + risk factors for MRSA colonization (ESRD on HD); MRSA nasal swab negative decreasing likelihood of MRSA pneumonia * Was admitted to [facility] once in last 90 days however was hospitalized for less than 48 hrs but did receive both Vancomycin + Zosyn * CXR read as: "Interval development of multifocal nodular airspace opacities beck perimposed on the previously described pulmonary edema. A superimposed infectious process must be considered" * Biofire testing negative (influenza, c pneumoniae, m. pneumoniae, etc...) * Negative COVID19 testing * BLCX's: prelim report showing GPC in clusters in both aerobic and anaerobic bottle of 1 set. PCR testing negative for staph aureus. Likely CoN Staph. * Procal 3.15 (however ESRD can lead to elevations) Plan Vancomycin * Random vanco level this AM = 20.4 * HD planned today * Will give 500mg x 1 after HD complete today * Will check random level w/ AM labs tomorrow * Plan to redose when level b/w 15-20mcg/mL or anticipated to be so following HD session * Goal trough level for bacteremia, possible pulm infxn : 15 to 20 mcg/mL Zosyn * cont 3.375gm ext-infusion (over 4 hrs) Q 12 hrs for eCrCl < 20 / HD and BMI < 35 Pharmacy will continue to follow and will adjust dose/frequency as necessary. Thank you.
[2019-11-04] MEDS ORDERED: VANCOMYCIN HCL 500 MG in 0.9 % SODIUM CHLORIDE 100 ML IV ONE (14:00)
--- NOTE | 2019-11-04 14:20 | Hospitalist Progress Note ---
Date of Service November 04, 2019 Assessment & Plan (1) End stage renal disease on dialysis due to type 1 diabetes mellitus: tolerated HD today with 3L UF plan for another session tomorrow missed two sessions due to feeling ill, he understands that he cannot miss (2) Bacterial pneumonia: continue Vanco and Zosyn no fever, less cough dyspnea today more related to volume overload (3) Acute dyspnea: acute hypoxic respiratory failure, due to volume overload this morning treated with BIPAP, Ativan, Bumex 1mg IV emergent HD performed with 3L removed titrated off of BIPAP to nasal canula, breathing much better (4) Gram-positive cocci bacteremia: continue Vanco follow up final cultures no fever today (5) Hypertension: BP quite elevated this morning, refused to take medications BP improved with HD and mild sedation with Ativan continue home regimen with Clonidine, Norvasc, Irbesartan (6) Hepatitis C: continue home medications Sofosbuvir and Vepatasvir (7) Gastroparesis: (8) Diabetic retinopathy of both eyes: (9) Diabetes mellitus type I: (10) Anxiety: Klonopin PRN Ativan PRN (11) Anemia: Admission and Anticipated Discharge Date Admission Date: November 03, 2019 Subjective patient seen early this morning, RN paged me for respiratory distress, desaturations with sats in the 80's on NRB patient screaming, saying he could not breathe, very anxious lungs with rales bilaterally, clearly volume overloaded asked respiratory care to place him on BIPAP, gave him Bumex 1mg IV, Hydralazine, Zofran and Ativan he calmed down significantly, saturations up to 95% on BIPAP tolerated several hours of HD, UF goal was 3 liters revisited after HD, resting comfortably, BIPAP down to 10/5 on 50% FiO2 with plans to wean off this evening reviewed micro, one set of cultures with gram positive cocci in clusters, suggesting staph infection discussed with nephrology, plan for HD again tomorrow Review of Systems Review of Systems: All systems reviewed & are unremarkable except as noted in HPI & below Constitutional: + fatigue and + weakness; no fever Respiratory: + cough and + dyspnea; no wheezing Cardiovascular: + edema; no chest pain Gastrointestinal: + nausea; no abdominal pain, no vomiting, no constipation and no diarrhea/loose stools Psychiatric: + anxiety Physical Exam Constitutional: well developed, well nourished and + acute distress (extreme, respiratory) Eyes: PERRL, conjunctivae normal, anicteric sclerae ENMT: external ear and nose normal, oropharynx normal Neck: trachea midline, no thyromegaly Respiratory: + respiratory distress, + labored breathing, + retractions, + uses accessory muscles and + cough Auscultation: + rales (bilaterally, all lung healy); no rhonchi and no wheezes Cardiovascular: Rate/Rhythm: regular rhythm and + tachycardic Heart Sounds: normal S1 and normal S2; no murmur Vessels: + JVD Extremities: normal capillary refill and + edema Gastrointestinal (Abdomen): normal bowel sounds, soft, nontender, no hepatosplenomegaly Musculoskeletal: no cyanosis or clubbing, extremities motor strength 5/5 Skin: no rashes, warm and dry Neurologic: patellar DTR's 2+ bilat, sensation intact and PERRL, EOMI, accommodation nl, no face palsy, no dysarthria Psychiatric: Orientation: alert and oriented x 3 Affect: + anxious affect Mood: + anxious mood Lymphatic: no cervical or axillary lymphadenopathy Results & Data Results & Data ([facility]) Vital Signs (Past 12 Hours) Vital Signs Temp Pulse Pulse Resp BP BP Pulse Ox 11/04/19 14:00 77 21 96 11/04/19 13:49 77 19 170/93 H 93 11/04/19 13:46 76 21 166/93 H 89 L 11/04/19 13:45 75 19 90 11/04/19 13:41 74 17 93 11/04/19 13:40 75 19 163/89 H 91 11/04/19 13:30 74 12 162/90 H 97 11/04/19 13:25 73 16 162/90 H 99 11/04/19 13:15 72 13 158/86 H 98 11/04/19 13:10 72 14 158/86 H 99 11/04/19 13:00 72 3 L 150/85 H 98 11/04/19 12:55 71 15 150/85 H 99 11/04/19 12:45 71 15 154/81 H 99 11/04/19 12:40 36.8 C 71 16 154/81 H 99 11/04/19 12:30 71 16 145/81 H 98 11/04/19 12:25 71 13 145/81 H 98 11/04/19 12:15 71 21 148/78 H 98 11/04/19 12:10 71 19 148/78 H 98 11/04/19 12:00 36.6 C 72 19 147/82 H 97 11/04/19 11:57 95 11/04/19 11:55 72 22 147/82 H 96 11/04/19 11:45 71 32 H 151/80 H 96 11/04/19 11:40 71 22 151/80 H 91 11/04/19 11:30 72 22 143/85 H 88 L 11/04/19 11:25 72 25 H 143/85 H 91 11/04/19 11:15 72 22 140/81 89 L 11/04/19 11:10 36.6 C 72 14 140/81 92 11/04/19 11:00 73 13 138/78 90 11/04/19 10:56 72 18 90 11/04/19 10:55 72 18 138/78 90 11/04/19 10:45 73 141/86 H 11/04/19 10:40 74 13 141/86 H 89 L 11/04/19 10:30 74 28 H 145/85 H 91 11/04/19 10:25 75 25 H 145/85 H 94 11/04/19 10:15 76 31 H 161/80 H 96 11/04/19 10:10 76 27 H 161/86 H 11/04/19 10:08 37.1 C 76 11/04/19 10:00 77 24 97 11/04/19 09:55 78 30 H 169/95 H 94 11/04/19 09:40 82 28 H 193/93 H 93 11/04/19 09:30 84 31 H 93 11/04/19 09:25 85 31 H 194/100 H 95 11/04/19 09:10 84 32 H 201/107 H 94 11/04/19 09:06 85 34 H 203/103 H 95 11/04/19 09:00 95 H 34 H 93 11/04/19 08:31 81 35 H 90 11/04/19 08:30 81 29 H 200/108 H 90 11/04/19 08:19 80 18 196/104 H 87 L 11/04/19 08:00 36.8 C 78 74 22 184/123 H 87 L 05/27/20 07:31 75 20 90 11/04/19 07:30 75 19 195/136 H 90 11/04/19 07:22 73 22 184/123 H 11/04/19 07:00 71 20 82 L 11/04/19 04:00 36.9 C 66 20 190/95 H 94 Laboratory Results Laboratory Results - last 24 hr 11/03/19 11/03/19 11/03/19 03:00 16:07 16:27 POC Glucose 245 H Urine Color Urine Appearance Urine pH Ur Specific [place] Urine Protein Urine Glucose (UA) Urine Ketones Urine Blood Urine Nitrite Urine Bilirubin Urine Urobilinogen Ur Leukocyte Esterase Urine WBC (Auto) Urine RBC (Auto) U Hyaline Cast (Auto) U Epithel Cells (Auto) Urine Bacteria (Auto) Nasal Screen MRSA (PCR) Negative Random Vancomycin Urine Opiates Screen Ur Methadone, Qual U Methadone Metabolites Ur Methadone Confirm Urine Barbiturates Ur Phencyclidine (PCP) U Amphetamin/Meth Scrn MDMA (Ecstasy) Screen U Benzodiazepines Scrn Ur Cocaine Metabolite U Marijuana (THC) Screen Drug Screen Comment Bld Cult Staph aureus PCR Negative Blood Culture MRSA PCR Negative 11/03/19 11/03/19 11/03/19 17:00 17:00 17:00 POC Glucose Urine Color Yellow Urine Appearance Clear Urine pH 7.5 Ur Specific [place] 1.014 Urine Protein 2+ H Urine Glucose (UA) 2+ H Urine Ketones Negative Urine Blood Negative Urine Nitrite Negative Urine Bilirubin Negative Urine Urobilinogen Negative Ur Leukocyte Esterase Negative Urine WBC (Auto) 1-5 Urine RBC (Auto) 0-4 U Hyaline Cast (Auto) 0 U Epithel Cells (Auto) 5-10 H Urine Bacteria (Auto) Negative Nasal Screen MRSA (PCR) Random Vancomycin Urine Opiates Screen Neg Ur Methadone, Qual Pos H U Methadone Metabolites Pending Ur Methadone Confirm Pending Urine Barbiturates Neg Ur Phencyclidine (PCP) Neg U Amphetamin/Meth Scrn Neg MDMA (Ecstasy) Screen Neg U Benzodiazepines Scrn Neg Ur Cocaine Metabolite Neg U Marijuana (THC) Screen Neg Drug Screen Comment Pending Bld Cult Staph aureus PCR Blood Culture MRSA PCR 11/03/19 11/04/19 11/04/19 20:33 01:21 04:12 POC Glucose 226 H 167 H Urine Color Urine Appearance Urine pH Ur Specific [place] Urine Protein Urine Glucose (UA) Urine Ketones Urine Blood Urine Nitrite Urine Bilirubin Urine Urobilinogen Ur Leukocyte Esterase Urine WBC (Auto) Urine RBC (Auto) U Hyaline Cast (Auto) U Epithel Cells (Auto) Urine Bacteria (Auto) Nasal Screen MRSA (PCR) Random Vancomycin 20.4 Urine Opiates Screen Ur Methadone, Qual U Methadone Metabolites Ur Methadone Confirm Urine Barbiturates Ur Phencyclidine (PCP) U Amphetamin/Meth Scrn MDMA (Ecstasy) Screen U Benzodiazepines Scrn Ur Cocaine Metabolite U Marijuana (THC) Screen Drug Screen Comment Bld Cult Staph aureus PCR Blood Culture MRSA PCR 11/04/19 11/04/19 07:23 10:59 POC Glucose 185 H 127 H Urine Color Urine Appearance Urine pH Ur Specific [place] Urine Protein Urine Glucose (UA) Urine Ketones Urine Blood Urine Nitrite Urine Bilirubin Urine Urobilinogen Ur Leukocyte Esterase Urine WBC (Auto) Urine RBC (Auto) U Hyaline Cast (Auto) U Epithel Cells (Auto) Urine Bacteria (Auto) Nasal Screen MRSA (PCR) Random Vancomycin Urine Opiates Screen Ur Methadone, Qual U Methadone Metabolites Ur Methadone Confirm Urine Barbiturates Ur Phencyclidine (PCP) U Amphetamin/Meth Scrn MDMA (Ecstasy) Screen U Benzodiazepines Scrn Ur Cocaine Metabolite U Marijuana (THC) Screen Drug Screen Comment Bld Cult Staph aureus PCR Blood Culture MRSA PCR Medications Administered Current Inpatient Medications Acetaminophen (Tylenol) 650 mg PO Q4H PRN PRN Reason: Pain or Fever Stop: 12/03/19 07:32 Amlodipine Besylate (Norvasc) 10 mg PO DAILY AYESHA Stop: 12/03/19 08:59 Last Admin: 11/04/19 07:51 Dose: 10 mg Documented by: Clonazepam (Klonopin) 0.5 mg PO BID AYESHA Stop: 12/03/19 08:59 Last Admin: 11/04/19 09:56 Dose: 0.5 mg Documented by: Clonidine HCl ([id number] 0.2mg/24hr) 1 patch TD Sanches@0900 [facility] Stop: 12/08/19 08:59 Dextrose (Dextrose 50%) 25 - 50 ml IV UD PRN; Protocol PRN Reason: Hypoglycemia Protocol Stop: 12/03/19 07:32 Gabapentin (Neurontin) 100 mg PO HS AYESHA Stop: 12/03/19 20:59 Last Admin: 11/03/19 20:39 Dose: 100 mg Documented by: Glucagon (Glucagen) 1 mg SQ UD PRN; Protocol PRN Reason: Hypoglycemia Protocol Stop: 12/03/19 07:32 Glucose (Dex4 Glucose) 4 - 8 tabs PO UD PRN; Protocol PRN Reason: Hypoglycemia Protocol Stop: 12/03/19 07:32 Glucose (Glucose 40%) 15 - 30 gm PO UD PRN; Protocol PRN Reason: Hypoglycemia Protocol Stop: 12/03/19 07:32 Heparin Sodium (Porcine) (Heparin Sodium (Porcine)) 5,000 units SQ Q12 AYESHA Stop: 12/03/19 08:59 Last Admin: 11/03/19 20:38 Dose: 5,000 units Documented by: Piperacillin Sod/Tazobactam (Sod 3.375 gm/ Dextrose) 115 mls @ 28.75 mls/hr IV Q12H [facility]; Protocol Stop: 11/10/19 11:59 Last Infusion: 11/04/19 05:29 Dose: Infused Documented by: Vancomycin HCl 500 mg/ Sodium (Chloride) 110 mls @ 55 mls/hr IV .AFTER DIALYSIS ONE; Protocol Stop: 11/04/19 15:59 Insulin Aspart (Novolog Flexpen) 0 units SC ACHS [facility] Stop: 12/03/19 07:32 Last Admin: 11/04/19 11:47 Dose: Not Given Documented by: Insulin Aspart (Novolog Flexpen) 0 units SC TODAY@0200 [facility] Stop: 12/04/19 01:59 Last Admin: 11/04/19 01:30 Dose: 1 units Documented by: Insulin Glargine (Lantus Solostar Pen) 18 units SC QAM [facility]; Protocol Stop: 12/04/19 08:59 Last Admin: 11/04/19 07:54 Dose: 18 units Documented by: Irbesartan (Avapro) 300 mg PO DAILY [facility] Stop: 12/03/19 08:59 Last Admin: 11/03/19 09:32 Dose: 300 mg Documented by: Methadone HCl (Dolophine) 90 mg PO DAILY [facility] Stop: 11/17/19 08:59 Last Admin: 11/03/19 09:37 Dose: 90 mg Documented by: Metoprolol Succinate (Toprol Xl) 75 mg PO BID [facility] Stop: 12/03/19 08:59 Last Admin: 11/03/19 20:41 Dose: 75 mg Documented by: Miscellaneous (Check Clonidine Patch) 1 ea N/A QS [facility] Stop: 12/03/19 07:59 Last Admin: 11/04/19 07:55 Dose: 1 ea Documented by: Miscellaneous (Carbohydrates For Hypoglycemia) 15 - 30 gm PO UD PRN PRN Reason: Hypoglycemia Protocol Stop: 12/03/19 07:32 Miscellaneous (Order Awaiting Action) 1 ea N/A QS [facility] Stop: 12/03/19 15:59 Last Admin: 11/04/19 01:31 Dose: Not Given Documented by: Miscellaneous (Order Awaiting Action) 1 ea N/A QS [facility] Stop: 12/03/19 15:59 Last Admin: 11/04/19 01:31 Dose: Not Given Documented by: Miscellaneous (Remove Clonidine Patch) 1 ea N/A Sanches@0859 [facility] Stop: 12/08/19 08:58 Miscellaneous Information (Consult) 1 ea N/A UD PRN PRN Reason: Consult Stop: 12/03/19 03:39 Miscellaneous Information (Consult) 1 ea N/A UD PRN PRN Reason: Consult Stop: 12/03/19 03:39 Miscellaneous Information (Consult Glycemic Management Pharmacy) 1 ea N/A UD [facility] Stop: 12/03/19 10:37 Sofosbuvir & Velpatasvir Patients Own Med 1 ea PO DAILY [facility] Stop: 12/04/19 08:59 Ondansetron HCl (Zofran) 4 mg IV Q6H PRN PRN Reason: Nausea Stop: 12/03/19 07:32 Last Admin: 11/04/19 09:01 Dose: 4 mg Documented by: Sevelamer HCl (Renagel) 800 mg PO TIDM [facility] Stop: 12/03/19 07:59 Last Admin: 11/04/19 07:52 Dose: Not Given Documented by: Vitamin B Complex/Folic Acid (Nephrocaps) 1 cap PO DAILY [facility]YES[facility] Stop: 12/03/19 08:59 Last Admin: 11/03/19 09:33 Dose: 1 cap Documented by: PG Care Time/CCT Total # of Minutes Spent Total Time Spent: 45 Total Time Spent with Patient: Total time spent is greater than 50% in coordination of care (as documented) at patient's floor/unit and/or counseling patient: Coding Level of Care Code 21578 Subseq Hosp Care Lvl 3 Diagnoses End stage renal disease on dialysis due to type 1 diabetes mellitus E10.22; N18.6; Z99.2 Bacterial pneumonia J15.9 Acute dyspnea R06.00 Gram-positive cocci bacteremia R78.81 Hypertension I10 Hypertension type: essential hypertension Hepatitis C B19.20 Gastroparesis K31.84 Diabetic retinopathy of both eyes E11.319 Diabetes mellitus type I E10.22; N18.6; Z99.2 Chronic kidney disease stage: on chronic dialysis Diabetes mellitus complication detail: with chronic kidney disease Diabetes mellitus complication status: with kidney complications Anxiety F41.9 Anemia D64.9 (1) Diabetes mellitus type I Chronic kidney disease stage: on chronic dialysis Diabetes mellitus complication detail: with chronic kidney disease Diabetes mellitus complication status: with kidney complications Qualified Code(s): E10.22 - Type 1 diabetes mellitus with diabetic chronic kidney disease; N18.6 - End stage renal disease; Z99.2 - Dependence on renal dialysis (2) Hypertension Hypertension type: essential hypertension Qualified Code(s): I10 - Essential (primary) hypertension
[2019-11-04] MEDS: HEPARIN SOD 5,000 UNIT/0.5 ML VIAL SQ SCH ×2 (14:23→21:59)
--- NOTE | 2019-11-04 14:40 | Progress Notes ---
DATE: 11/04/2019 NEPHROLOGY PROGRESS NOTE SUBJECTIVE: The patient just finished dialysis and 3 kilos of fluid was removed. The patient actually went into respiratory distress related with pulmonary edema prior to doing dialysis and is somewhat better after dialysis. Blood pressure continues to be high. No other symptoms as such. OBJECTIVE: HEENT: Mucous membranes moist. NECK: Supple. No jugular venous distention. CHEST: Decreased breath sounds. CARDIOVASCULAR: S1, S2 regular. ABDOMEN: Soft, nontender. EXTREMITIES: Show trace edema. LABORATORY TEST: From this morning was reviewed. ASSESSMENT AND PLAN: A 34-year-old male with type 1 diabetes with end-stage renal disease, on hemodialysis [id number], admitted with fever and shortness of breath. Shortness of breath was attributed mostly to pneumonia, but I think there is some component of fluid also. We will do dialysis again tomorrow for 3 hours 30 minutes and try to take 3-4 kilos of fluid off as tolerated. In any case, tomorrow is his regular schedule. MTDD
[2019-11-04] MEDS: GABAPENTIN 100 MG CAP PO SCH (21:59)
[2019-11-04] MEDS: CARBOHYDRATES FOR HYPOGLYCEMIA PO PRN (22:15)
[2019-11-05] MEDS: INSULIN ASPART 100 UNITS/ML 3 ML PEN SC SCH ×6 (01:47→23:56)
[2019-11-05] MEDS: SOFOSBUVIR PO SCH ×2 (07:10→07:41)
[2019-11-05] MEDS: VELPATASVIR PO SCH ×2 (07:10→07:41)
[2019-11-05] MEDS: CARBOHYDRATES FOR HYPOGLYCEMIA PO PRN ×2 (07:26→07:37)
[2019-11-05] MEDS: CHECK CLONIDINE PATCH PLACEMENT SCH ×3 (07:27→23:53)
[2019-11-05] MEDS: METOPROLOL SUCC 25MG EXT REL TAB PO SCH ×2 (07:42→21:57)
[2019-11-05] MEDS: AMLODIPINE BESYLATE 5 MG TAB PO SCH (07:43)
[2019-11-05] MEDS: SEVELAMER HCL 800 MG TABLET PO SCH ×3 (07:43→18:53)
[2019-11-05] MEDS: IRBESARTAN 150 MG TAB PO SCH (07:43)
[2019-11-05] MEDS: NEPHROCAPS PO SCH (07:44)
[2019-11-05] MEDS: HEPARIN SOD 5,000 UNIT/0.5 ML VIAL SQ SCH ×2 (07:44→23:52)
[2019-11-05] MEDS: METHADONE HCL 10 MG TAB PO SCH (07:46)
[2019-11-05] MEDS: clonazePAM 0.5 MG TAB PO SCH ×2 (07:47→21:57)
[2019-11-05 08:01] LABS: Basophils # (auto) 0.02 K/uL (0-0.2); Basophils % (auto) 0.2 %; Eosinophils # (auto) 0.05 K/uL (0-0.5); Eosinophils % (auto) 0.6 %; Hematocrit (blood only) 36.9 % (42-52); Hemoglobin 12.1 g/dL (14.0-18.0); Immature Granulocytes # (auto) 0.01 K/uL (0.00-0.02); Immature Granulocytes % (auto) 0.1 %; Lymphocytes # (auto) 1.82 K/uL (1.2-3.4); Lymphocytes % (auto) 22.4 %; Mean Corpuscular Hemoglobin 31.7 pg (25-34); Mean Corpuscular Hgb Conc 32.8 g/dL (32-36); Mean Corpuscular Volume 96.6 fL (80-100); Mean Platelet Volume 9.8 fL (7.4-10.4); Monocytes # (auto) 1.14 K/uL (0.11-0.59); Neutrophils # (auto) 5.08 K/uL (1.4-6.5); Neutrophils % (auto) 62.7 %; Platelet Count 151 K/uL (130-400); RDW Coefficient of Variation 17.4 % (11.5-14.5); RDW Standard Deviation 61.3 fL (36.4-46.3); Red Blood Count 3.82 M/uL (4.7-6.1); White Blood Count 8.12 K/uL (4.8-10.8)
[2019-11-05 08:45] LABS: Albumin Globulin Ratio 0.6 (0.9-2); Albumin Level 2.8 gm/dl (3.4-5.0); BUN Creatinine Ratio 5.7 (10-20); Bilirubin,Total 0.8 mg/dl (0.2-1); Calcium 9.1 mg/dl (8.5-10.1); Creatinine Clr Calc Pharmacy 14.1 ml/min; Est GFR (African American) 9.8; Est GFR (Non-African American) 8.5; Globulin 4.5 gm/dl (2.5-4.0); Potassium 4.2 mmol/L (3.5-5.1); Total Protein 7.3 gm/dl (6.4-8.2)
[2019-11-05] MEDS ORDERED: INSULIN GLARGINE SOLOSTAR 100 UNITS/ML 3 ML PEN SC SCH (09:00)
--- NOTE | 2019-11-05 09:19 | Pharmacy Report ---
Pharmacy Abx Dose Short Note - Date of Service November 05, 2019 - Assessment & Plan Assessment * 34 year old M receiving VANCOMYCIN + ZOSYN for treatment of CAP * + risk factors for MRSA colonization (ESRD on HD); MRSA nasal swab negative decreasing likelihood of MRSA pneumonia * Was admitted to [facility] once in last 90 days however was hospitalized for less than 48 hrs but did receive both Vancomycin + Zosyn * CXR read as: "Interval development of multifocal nodular airspace opacities superimposed on the previously described pulmonary edema. A superimposed infectious process must be considered" * Biofire testing negative (influenza, c pneumoniae, m. pneumoniae, etc...) * BLCX's: prelim report showing GPC in clusters in both aerobic and anaerobic bottle of 1 set. PCR testing negative for staph aureus. Likely CoN Staph. Plan Vancomycin * Random vanco level this AM = 20.5. Did receive 500mg IV x 1 following completion of HD yesterday * HD planned again today * Will give 250mg x 1 after HD complete today * Will check random level w/ AM labs tomorrow * Plan to redose when level b/w 15-20mcg/mL or anticipated to be so following HD session * Goal trough level for bacteremia, possible pulm infxn : 15 to 20 mcg/mL Zosyn * cont 3.375gm ext-infusion (over 4 hrs) Q 12 hrs for eCrCl < 20 / HD and BMI < 35 Pharmacy will continue to follow and will adjust dose/frequency as necessary. Thank you.
--- NOTE | 2019-11-05 09:25 | Pharmacy Report ---
Pharmacy Glycemic Short Note 2 - Date of Service November 05, 2019 - Glycemic Short BSG Results (Last 24 hours): 11/04/19 11/04/19 11/04/19 10:59 16:02 22:07 Glucose POC Glucose 127 H 76 44 L* 11/04/19 11/04/19 11/04/19 22:09 22:30 22:45 Glucose POC Glucose 45 L* 51 L* 54 L* 11/04/19 11/05/19 11/05/19 23:14 01:44 07:21 Glucose POC Glucose 145 H 130 H 69 L* 11/05/19 11/05/19 11/05/19 07:34 07:49 07:53 Glucose 77 POC Glucose 65 L* 70 OUTPATIENT ANTIDIABETIC REGIMEN: * Novolog per pump * A1c = 8.1% 10/09/19 (but interpret with caution due to shortened RBC lifespan in ESRD) ASSESSMENT: 11/04 * Patient did become hypoglycemic at bedtime last evening with BSGs dropping into the 40's. This was due to inadequate PO intake throughout the day while having usual basal needs on board. Pt was treated for hypoglycemia last evening with BSG recovery. This AM mild hypoglycemia also present (FBS 65- 69). Will hold basal insulin this AM, with intention to resume at lunchtime following repeat BSG check. Pt did eat all of his breakfast this AM (~45gm CHO). * Will scale back basal insulin dose 20% today. * If patient's appetite poor today, would recommend addition of dextrose containing maint IVFs (D10W). He will need CHO provision in PO or IV form in order to receive adequate basal insulin to suppress ketosis. 11/03 * BSGs did trend up initially following transition from insulin pump to SQ basal/bolus regimen, however BSGs now near goal today * Fasting BSG 167-185 this AM with 18 units basal on board and after receiving 1 unit Novolog correction overnight - will continue same * Post-prandial BSGs elevated yesterday however pt did start the day with what appeared to be basal insulin deficiency and BSGs did not climb following meals. Will continue same Novolog doses at this time as they have performed well in the past. 11/02 * Type 1 diabetic known to the Glycemic Control Service from prior admissions, admitted to [facility] overnight for pneumonia * Patient has his insulin pump in place this AM, delivering his basal rate however he does not have the remote with him to use the bolus feature. Will convert patient to basal/bolus regimen based upon experience from prior admissions. His insulin pump will be discontinued this AM. PLAN FOR INPATIENT GLYCEMIC CONTROL: * Hold insulin pump * Basal insulin - decrease * Lantus 15 units SQ QAM * Bolus insulin - no change * NovoLog per scale ACHS or Q6hrs while NPO * Goal Range: Low 110 mg/dL - High 140 mg/dL * Correction Factor: 35 mg/dL/unit * Nutritional / Prandial insulin per carb ratio of 1 unit per 14 grams CHO consumed * If eating poorly, consider addition of D10W maint IVFs at low rates 15-30cc/hr to prophylax again hypoglycemia but permit continued insulin admin. PLAN FOR DISCHARGE: * To be determined. Would plan to transition patient back to his insulin pump prior to discharge if he can provide supplies and remote for operation. He may need to suspend his basal rates on the pump upon discharge depending upon the timing of his last Lantus dose.
--- NOTE | 2019-11-05 12:38 | Progress Notes ---
DATE: 11/05/2019 DIALYSIS NOTE SUBJECTIVE: The patient is requiring a lot of oxygen and was even on BiPAP overnight. Blood pressure remains high. The patient was seen during dialysis and so far, he has not had any issues with hypotension or cramp. Dialysis catheter is working fine. OBJECTIVE: VITAL SIGNS: Blood pressure is 167/84, pulse rate 70 per minute, 88% on oxygen mask 15 liters per minute. HEENT: Mucous membranes moist. NECK: Supple. CHEST: Decreased breath sounds. CARDIOVASCULAR: S1 and S2, regular. ABDOMEN: Soft, nontender. EXTREMITIES: Show no edema. LABORATORY TESTS: Reviewed in detail. ASSESSMENT AND PLAN: A 34-year-old male with type 1 diabetes with end-stage renal disease, on chronic hemodialysis [id number], admitted with shortness of breath related with pneumonia as well as pulmonary edema. End-stage renal disease: We will increase the time of dialysis by 1 hour to 4 hours 30 minutes and take 4 kilo off. We will do on a 2K bath. At this point, we are tentatively planning to do dialysis on , but that may change depending on his status of pulmonary edema. I would like to do another chest x-ray after dialysis today. HERNÁN
[2019-11-05] MEDS: INSULIN GLARGINE SOLOSTAR 100 UNITS/ML 3 ML PEN SC SCH (13:45)
[2019-11-05] MEDS: PIPERACILLIN/TAZOBACTAM 3.375 GM in DEXTROSE 5% 100 ML IV SCH ×2 (13:48→23:54)
--- NOTE | 2019-11-05 13:59 | XRay Report ---
XR chest 1V portable CLINICAL HISTORY: f/u Pulm edema. Do after dialysis so after 2 PM. COMPARISON STUDY: 11/04/2019 FINDINGS: Findings of diffuse pulmonary edema is again noted. Its appearance overall is similar. Perh aps slight improvement in perihilar aeration. Permacath remains in superior vena cava. IMPRESSION: Pulmonary edema essentially unchanged to perhaps slightly improved from the prior exam. ACT 112: Negative or not required by law. The above report was generated using voice recognition software. It may contain grammatical, syntax or spelling errors. Electronically signed by: Zi Agarwal M.D. 11/05/2019 1:58 PM
[2019-11-05] MEDS ORDERED: VANCOMYCIN HCL 250 MG in 0.9 % SODIUM CHLORIDE 100 ML IV ONE (14:00)
--- NOTE | 2019-11-05 14:39 | Pulmonary Consultation ---
Date of Consultation November 05, 2019 Assessment & Plan (1) Acute hypoxemic respiratory failure: 34-year-old male with a past medical history of IV drug abuse, hepatitis C, ESRD on dialysis and insulin-dependent diabetes mellitus currently presented to the hospital with hypoxemic respiratory failure and fever. Differential for the patient's presenting illness is quite broad. Patient has a history of significant parrot exposure in his home and vaping tobacco. He denies any marijuana vaping. He is certainly at risk for e-cigarette/vaping associated lung injury (EVALI) and hypersensitivity pneumonitis. He is also at risk for chlamydia pneumonia and psittacosis. I will send off sputum PCR for chlamydia. I am also going to check labs for autoimmune disorders to evaluate for potential idiopathic interstitial pneumonias. Sending HSP panel as well. I will switch his antibiotics from vancomycin/Zosyn to ceftriaxone and doxycycline. His MRSA screen was negative. His procalcitonin is elevated, but unreliable given his end-stage renal disease. The doxycycline will cover for chlamydia pneumonias. We will have to monitor his QTC closely as he is on methadone. He has received dialysis and does appear fairly euvolemic. He is undergoing an echocardiogram currently. Recommend obtaining a CT of his chest. I am going to start him on 40 mg of IV Solu-Medrol twice daily as this can help hypersensitivity pneumonitis and EVALI. He is at risk for hyperglycemia given his underlying insulin-dependent diabetes. Other differential diagnoses include acute eosinophilic pneumonia, acute interstitial pneumonia, noncardiogenic pulmonary edema related to opiate abuse and other less likely diagnoses. I will hold off on bronchoscopy at this time given the degree of his hypoxemic respiratory failure. I would prefer avoiding intubation unless absolutely necessary. We will try him on high flow nasal cannula at this point. If he does not improve in the next day or so, we will likely proceed with b ronchoscopy. I did communicate this with the patient's hospitalist Dr. Arnett. I did claims counsel the patient regarding his diagnosis and treatment plan and he expressed understanding. Greater than 50% of the time was spent [id number] with the patient counseling them on their diagnosis and treatment plan. This note was dictated using voice recognition software and may include gramma tical errors, extra words, word substitutions and other inaccuracies due to errors in the voice recognition software and differences in speech patterns. (2) Current vaping on some days: (3) Long-term exposure involving bird droppings: (4) Gram-positive cocci bacteremia: (5) Fever: History of Present Illness Reason for Consultation: Acute hypoxemic respiratory failure with patchy infiltrates on chest x-ray Requesting Physician: Dr. Greg Arnett Attending Physician: Greg Arnett DO History of Present Illness 34-year-old male with a past medical history of insulin-dependent diabetes mellitus, ESRD on dialysis, hypertension, anemia chronic disease and continuous opiate dependence who presented to the hospital due to fever and shortness of breath. Patient notes that prior to hospitalization he had subjective fever for 2 days with minimal cough. He noted worsening shortness of breath. He denies any significant chest pain. He had a fever of 103 on the while in the hospital. He has been on Vanco Zosyn during this hospitalization. He has received 2 days of dialysis with approximately 7 L of fluid removed. He continues to require BiPAP with 50% FiO2. He notices some improvement in his breathing, but still feels quite short of breath. He describes that he has been vaping for the past 2 months and he vapes tobacco in the past week. He moved in with his family approximately 6 months ago for them to "keep an eye on him". There are 5 parents that live upstairs with his family and he lives mostly downstairs. There is carpeting throughout the house. He denies smoking cigarettes but did smoke cigarettes several years ago. He denies any current IV drug use, snorting of drugs or significant alcohol use. He says that he gets "tested weekly". He denies any sick contacts. He notes that no one in his home has been sick. He was tested for COVID 19 during his hospitalization and that test was negative. Bio fire panel was also negative. Procalcitonin is elevated. No significant peripheral eosinophilia seen. Urine drug screen is positive for methadone which he is currently taking. Of note, he was hospitalized earlier in October when shortness of breath and was found to have subsegmental opacities in the right upper lobe suggestive of an infection or inflammatory pneumonitis on 10/09/2019 based on the CTA of his chest. Allergies Allergy/AdvReac Type Severity Reaction Status Date / Time No Known Drug Allergies Allergy Unknown Verified 11/03/19 03:43 Home Medications Home Medications Medication Instructions Recorded Confirmed Type clonazepam 0.5 mg PO BID 11/03/18 11/03/19 History Velphoro 1,000 mg PO TIDM 03/24/19 11/03/19 History Fransisca-Jj 0.8 mg PO DAILY 05/20/19 11/03/19 History Humalog U-100 Insulin 1 sliding scale dose SUBCUT UD PRN 05/22/19 11/03/19 Rx #15 ml clonidine 1 patch TRANSDERMAL CQWK #5 ea 05/22/19 11/03/19 Rx metoprolol succinate 75 mg PO BID #90 tab 06/01/19 11/03/19 Rx blood sugar diagnostic #100 ea 06/08/19 10/12/19 Rx blood-glucose meter #1 ea 06/08/19 10/12/19 Rx lancets 30 gauge #100 ea 06/08/19 10/12/19 Rx pen needle, diabetic 31 gauge x #100 ea 07/03/19 10/12/19 Rx 1/" sofosbuvir-velpatasvir [Epclusa] 1 tab PO DAILY 10/09/19 11/03/19 History tramadol 50 mg PO TID PRN 10/09/19 11/03/19 History amlodipine 10 mg tablet 10 mg PO DAILY #30 tab 10/12/19 11/03/19 Rx irbesartan 300 mg tablet 300 mg PO DAILY #30 tab 10/12/19 11/03/19 Rx gabapentin 100 mg capsule 100 mg PO HS #30 cap 10/14/19 11/03/19 Rx bumetanide 1 mg PO QAM 11/03/19 11/03/19 History ferric citrate [Auryxia] 210 mg PO TIDM 11/03/19 11/03/19 History hydralazine 50 mg PO TID 11/03/19 11/03/19 History insulin pump cartridge [Omnipod 11/03/19 11/03/19 History Dash 5 Pack Pod] methadone 90 mg PO DAILY 11/03/19 11/03/19 History sevelamer carbonate 800 mg PO TID 11/03/19 11/03/19 History Patient History Medical History Anemia Anxiety Current vaping on some days Diabetes mellitus type I Diabetic retinopathy of both eyes End stage renal disease on dialysis due to type 1 diabetes mellitus Gastroparesis Hepatitis C History of seizure seizure-like activity 02/14/2019 in setting of severe hyperglycemia (patient states he missed dialysis/insulin dose), DKA, confusion- lifeflighted to [place]/intubated/placed on ventilator. DKA managed with insulin drip on admission. EEG with no seizure activity noted. Neurology consulted and initially started patient on prophylactic Keppra but suspected seizure was complication of hyperglycemia and recommended weaning off anticonvulsants/advised no further neurology workup needed. Per patient, medication/dialysis compliance since discharge with glucoses in the range on 100's-200's on self-checks. Hypertension Nephrotic syndrome Peritonitis currently on intraperitoneal abx Substance abuse Withdrawal from opioids Surgical History H/O eye surgery Hx of tonsillectomy Hx of tooth extraction Hx of vitrectomy B/L; right [place] 05/26/18[place] [facility] [place] catheter in place Family History Grandfather (Maternal) Diabetes Grandfather (Paternal) Diabetes Grandmother (Paternal) Diabetes Grandmother (Maternal) Diabetes Aunt Diabetes Uncle Diabetes Father Hypertension Brother Hypertension Social History Preferred Language: [place] Communication Ability: Effective Visual Impairment: Severely Limited Hearing Ability: Normal Tallow Pumper Required: No Beliefs That Will Affect Care: None Current Living Situation: Alone Current Living Situation Comment: son with patient Other Information That Helps Us Care for You: No Feels Safe at Home: Yes Safety Concerns: Feels Safe At This Time Smoking Status: Former smoker Tobacco Type: smokeless tobacco ; Do You Dip or Chew Tobacco: Yes ; Second Hand Exposure: No ; Tobacco Cessation Education Requested by Patient: No Hx Alcohol Use: No Hx Substance Use: No Childhood Exposure to Second-Hand Smoke: No Diet Comment: diabetic caffeine: Yes Dental Care, Regularly: Yes Seatbelt Use: always Sunscreen Use: Yes Review of Systems Review of Systems: All systems reviewed & are unremarkable except as noted in HPI & below Physical Exam Constitutional: WD/WN, vitals as above Patient is on BiPAP. Mildly ta chypneic. Eyes: PERRL, conjunctivae normal, anicteric sclerae ENMT: external ear and nose normal, oropharynx normal Neck: trachea midline, no thyromegaly Respiratory: Bilateral rhonchi noted predominantly at the bases. Cardiovascular: RRR, no murmur, no edema Gastrointestinal (Abdomen): normal bowel sounds, soft, nontender, no hepatosplenomegaly Musculoskeletal: no cyanosis or clubbing, extremities motor strength 5/5 Skin: no rashes, warm and dry Neurologic: PERRL, EOMI, accommodation nl, no face palsy, no dysarthria Psychiatric: A+Ox3, euthymic affect Results & Data Results & Data ([facility]) Vital Signs (Past 12 Hours) Vital Signs Temp Pulse Pulse Resp BP BP Pulse Ox 11/05/19 13:21 98.4 F 71 71 160/84 H 160/84 H 11/05/19 13:00 71 172/91 H 11/05/19 12:40 70 158/82 H 11/05/19 12:29 72 18 172/91 H 92 11/05/19 12:23 98.6 F 70 14 167/84 H 88 L 11/05/19 12:20 70 167/84 H 11/05/19 12:00 69 135/94 11/05/19 11:40 68 157/94 H 11/05/19 11:20 68 143/72 H 11/05/19 11:00 67 138/73 11/05/19 10:40 68 130/71 11/05/19 10:20 68 134/68 11/05/19 10:00 67 133/72 11/05/19 09:40 67 131/73 11/05/19 09:20 68 135/72 11/05/19 09:00 69 152/86 H 11/05/19 08:58 69 18 152/86 H 87 L 11/05/19 08:49 98.6 F 68 68 145/82 H 11/05/19 08:43 68 25 H 145/75 H 86 L 11/05/19 08:00 65 11/05/19 07:48 99.0 F 67 17 145/82 H 87 L 11/05/19 07:16 65 18 91 11/05/19 05:05 97.9 F 66 15 149/79 H 91 11/05/19 03:25 72 15 90 I personally reviewed prior laboratory data, chest imaging and previous notes. PG Care Time/CCT Total # of Minutes Spent Total Time Spent with Patient: Total time spent is greater than 50% in coordination of care (as documented) at patient's floor/unit and/or counseling patient: Coding Level of Care Code 02495 Inpt Consult Level 5 Diagnoses Acute hypoxemic respiratory failure J96.01 Current vaping on some days Z72.89 Long-term exposure involving bird droppings Z77.29 Gram-positive cocci bacteremia R78.81 Fever R50.9 Time Spent (min) 70
[2019-11-05] MEDS ORDERED: DEXTROSE 10% 1,000 ML IV SCH (15:00)
[2019-11-05] MEDS: cefTRIAXone SODIUM 1,000 MG in DEXTROSE 5% 50 ML IV SCH (15:49)
[2019-11-05] MEDS: DOXYCYCLINE HYCLATE 100 MG in DEXTROSE 5% 100 ML IV SCH (15:50)
[2019-11-05 15:52] LABS: C Reactive Protein 18.4 mg/dl (0-0.29)
[2019-11-05] MEDS ORDERED: methylPREDNISolone 40 MG in SYRINGE 0 ML IV SCH (16:00)
--- NOTE | 2019-11-05 16:31 | XCELERA ---
[id number]
--- NOTE | 2019-11-05 16:49 | Hospitalist Progress Note ---
Date of Service November 05, 2019 Assessment & Plan (1) Bacterial pneumonia: multifocal pneumonia, suspected to be bacterial as COVID and other viral tests negative change antibiotics to Rocephin, Doxycycline to cover for Chlamydia, atypical infections plan for bronchoscopy tomorrow for diagnostic purposes reports getting fever and dyspnea after cleaning bird cage, parrots (2) Acute dyspnea: acute hypoxic respiratory failure initially thought to be volume overload superimposed on pneumonia however, still requiring BIPAP despite 7 liters removed the past 48 hours likely bilateral pneumonia, possible ALI from vaping hold on further steroids until bronchoscopy tomorrow continue Rocephin, Doxycycline full code, would want intubated if he deteriorates further no distress at all, just hypoxia (3) End stage renal disease on dialysis due to type 1 diabetes mellitus: tolerated HD on 11/03 with 3L of UF tolerated HD on 11/04 with 4L of UF plan for HD again when nephrology feels it is necessary, check BMP tomorrow (4) Gram-positive cocci bacteremia: one of two sets with coag negative staph likely contaminant do not feel he has gram positive pneumonia repeat blood cultures in the AM (5) Long-term exposure involving bird droppings: lives around 5 parrots, now with new parrotSena just cleaned the new cage out Saturday, fevers started Saturday plan for bronchoscopy tomorrow (6) Hypertension: BP quite elevated this morning, refused to take medications BP improved with HD and mild sedation with Ativan continue home regimen with Clonidine, Norvasc, Irbesartan (7) Hepatitis C: continue home medications Sofosbuvir and Vepatasvir (8) Gastroparesis: (9) Diabetic retinopathy of both eyes: (10) Diabetes mellitus type I: some hypoglycemia due to not eating well lower Lantus dosing, place on D10W at 30cc/hr (11) Anxiety: Klonopin PRN Ativan PRN (12) Anemia: Hb stable (13) Acute hypoxemic respiratory failure: see above (14) Current vaping on some days: will hold on Solu Medrol until after bronchoscopy could have vaping acute lung injury Admission and Anticipated Discharge Date Admission Date: November 03, 2019 Subjective patient feeling better today but still requiring a lot of oxygen, had to be placed back on BIPAP UF of 4 liters with HD today to try to improve oxygenation, follow up CXR better but still with bilateral infiltrates discussed with Dr. Cardona, requested pulmonary consultation upon further questioning, the patient admits to vaping and also having close contact with parrots called his friend, medical contact, and she told me that she recently got a new Brannon parrot and the patient cleaned out the cage on Saturday, then developed fevers/dyspnea on Saturday d/w Dr. Cardona, considering ALI from vaping, possible Chlamydia pneumonia from parrots, HIV, etc plan to make NPO after midnight for bronchoscopy tomorrow reviewed cultures, one set of blood cultures with coag negative staph, likely contaminant, do not suspect bacteremia at this point WBC normal, Hb 12 Review of Systems Review of Systems: All systems reviewed & are unremarkable except as noted in HPI & below Constitutional: + fatigue and + weakness; no fever, no chills and no sweats Respiratory: + cough, + dyspnea and + dyspnea on exertion; no wheezing Cardiovascular: no chest pain, no palpitations and no edema Gastrointestinal: no abdominal pain, no nausea, no vomiting, no constipation and no diarrhea/loose stools Physical Exam Constitutional: well developed and well nourished; no acute distress Eyes: PERRL, conjunctivae normal, anicteric sclerae ENMT: external ear and nose normal, oropharynx normal Neck: trachea midline, no thyromegaly Respiratory: + cough; no respiratory distress and no labored breathing Auscultation: + crackles Cardiovascular: Rate/Rhythm: regular rate and regular rhythm Heart Sounds: normal S1 and normal S2; no murmur Vessels: no JVD Extremities: normal capillary refill; no edema Gastrointestinal (Abdomen): normal bowel sounds, soft, nontender, no hepatosplenomegaly Musculoskeletal: no cyanosis or clubbing, extremities motor strength 5/5 Skin: no rashes, warm and dry Neurologic: patellar DTR's 2+ bilat, sensation intact and PERRL, EOMI, accommodation nl, no face palsy, no dysarthria Psychiatric: Orientation: alert and oriented x 3 Affect: + anxious affect Mood: + anxious mood Lymphatic: no cervical or axillary lymphadenopathy Results & Data Results & Data ([facility]) Vital Signs (Past 12 Hours) Vital Signs Temp Pulse Pulse Resp BP BP Pulse Ox 11/05/19 14:46 73 19 94 11/05/19 13:21 36.9 C 71 71 160/84 H 160/84 H 11/05/19 13:00 71 172/91 H 11/05/19 12:40 70 158/82 H 11/05/19 12:29 72 18 172/91 H 92 11/05/19 12:23 37.0 C 70 14 167/84 H 88 L 11/05/19 12:20 70 167/84 H 11/05/19 12:00 69 135/94 11/05/19 11:40 68 157/94 H 11/05/19 11:20 68 143/72 H 11/05/19 11:00 67 138/73 11/05/19 10:40 68 130/71 11/05/19 10:20 68 134/68 11/05/19 10:00 67 133/72 11/05/19 09:40 67 131/73 11/05/19 09:20 68 135/72 11/05/19 09:00 69 152/86 H 11/05/19 08:58 69 18 152/86 H 87 L 11/05/19 08:49 37.0 C 68 68 145/82 H 11/05/19 08:43 68 25 H 145/75 H 86 L 11/05/19 08:00 65 11/05/19 07:48 37.2 C 67 17 145/82 H 87 L 11/05/19 07:16 65 18 91 11/05/19 05:05 36.6 C 66 15 149/79 H 91 Laboratory Results Laboratory Results - last 24 hr 11/04/19 11/04/19 11/04/19 22:07 22:09 22:30 WBC RBC Hgb Hct MCV MCH MCHC RDW Std Deviation RDW Coeff of Rebecca Plt Count MPV Immature Gran % (Auto) Neut % (Auto) Lymph % (Auto) [place] % (Auto) Eos % (Auto) Baso % (Auto) Immature Gran # (Auto) Neut # (Auto) Lymph # (Auto) [place] # (Auto) Eos # (Auto) Baso # (Auto) ESR Sodium Potassium Chloride Carbon Dioxide Anion Gap BUN Creatinine Est Cr Clr Drug Dosing Est GFR ( Amer) Est GFR (Non-Af Amer) BUN/Creatinine Ratio Glucose POC Glucose 44 L* 45 L* 51 L* Calcium Total Bilirubin AST ALT Alkaline Phosphatase Total Creatine Kinase C-Reactive Protein Total Protein Albumin Globulin Albumin/Globulin Ratio Random Vancomycin Rheumatoid Factor Cycl Citrul Peptide IgG Proteinase 3 (PR3) Anti-Neutrophil (Flow) CAREN-1 Antibody SS-A/Ro Antibody SS-B/La Antibody Sm ([place]) Antibody VIROLOGY TEACHER Antibody Scl-70 Scleroderma Ab Double Strand DNA Ab Anti-Centromere Ab Glomerular Base Memb Ab C. psittaci IgG Titer C. psittaci IgA Titer C. psittaci IgM Titer C. psittaci Ab Interp Saccharo. viridis Ab T. candidus Antibody T. sacchari Antibody T. vulgaris Antibody A. alternata IgG Ab Aspergill fumigatus Ab Aureobasidium pullulans Cladosporium herbar IgG Penicillium notatum IgG Micropolyspora faeni Ab Phoma species IgG Ab Trichoderma viride IgG [place] Serum Precipitin S. rectivirgula 11/04/19 11/04/19 11/05/19 22:45 23:14 01:44 WBC RBC Hgb Hct MCV MCH MCHC RDW Std Deviation RDW Coeff of Rebecca Plt Count MPV Immature Gran % (Auto) Neut % (Auto) Lymph % (Auto) [place] % (Auto) Eos % (Auto) Baso % (Auto) Immature Gran # (Auto) Neut # (Auto) Lymph # (Auto) [place] # (Auto) Eos # (Auto) Baso # (Auto) ESR Sodium Potassium Chloride Carbon Dioxide Anion Gap BUN Creatinine Est Cr Clr Drug Dosing Est GFR ( Amer) Est GFR (Non-Af Amer) BUN/Creatinine Ratio Glucose POC Glucose 54 L* 145 H 130 H Calcium Total Bilirubin AST ALT Alkaline Phosphatase Total Creatine Kinase C-Reactive Protein Total Protein Albumin Globulin Albumin/Globulin Ratio Random Vancomycin Rheumatoid Factor Cycl Citrul Peptide IgG Proteinase 3 (PR3) Anti-Neutrophil (Flow) CAREN-1 Antibody SS-A/Ro Antibody SS-B/La Antibody Sm ([place]) Antibody VIROLOGY TEACHER Antibody Scl-70 Scleroderma Ab Double Strand DNA Ab Anti-Centromere Ab Glomerular Base Memb Ab C. psittaci IgG Titer C. psittaci IgA Titer C. psittaci IgM Titer C. psittaci Ab Interp Saccharo. viridis Ab T. candidus Antibody T. sacchari Antibody T. vulgaris Antibody A. alternata IgG Ab Aspergill fumigatus Ab Aureobasidium pullulans Cladosporium herbar IgG Penicillium notatum IgG Micropolyspora faeni Ab Phoma species IgG Ab Trichoderma viride IgG [place] Serum Precipitin S. mendoza 11/05/19 11/05/19 11/05/19 04:08 07:21 07:34 WBC RBC Hgb Hct MCV MCH MCHC RDW Std Deviation RDW Coeff of Rebecca Plt Count MPV Immature Gran % (Auto) Neut % (Auto) Lymph % (Auto) [place] % (Auto) Eos % (Auto) Baso % (Auto) Immature Gran # (Auto) Neut # (Auto) Lymph # (Auto) [place] # (Auto) Eos # (Auto) Baso # (Auto) ESR Sodium Potassium Chloride Carbon Dioxide Anion Gap BUN Creatinine Est Cr Clr Drug Dosing Est GFR ( Amer) Est GFR (Non-Af Amer) BUN/Creatinine Ratio Glucose POC Glucose 69 L* 65 L* Calcium Total Bilirubin AST ALT Alkaline Phosphatase Total Creatine Kinase C-Reactive Protein Total Protein Albumin Globulin Albumin/Globulin Ratio Random Vancomycin 20.5 Rheumatoid Factor Cycl Citrul Peptide IgG Proteinase 3 (PR3) Anti-Neutrophil (Flow) CAREN-1 Antibody SS-A/Ro Antibody SS-B/La Antibody Sm ([place]) Antibody VIROLOGY TEACHER Antibody Scl-70 Scleroderma Ab Double Strand DNA Ab Anti-Centromere Ab Glomerular Base Memb Ab C. psittaci IgG Titer C. psittaci IgA Titer C. psittaci IgM Titer C. psittaci Ab Interp Saccharo. viridis Ab T. candidus Antibody T. sacchari Antibody T. vulgaris Antibody A. alternata IgG Ab Aspergill fumigatus Ab Aureobasidium pullulans Cladosporium herbar IgG Penicillium notatum IgG Micropolyspora faeni Ab Phoma species IgG Ab Trichoderma viride IgG [place] Serum Precipitin S. mendoza 11/05/19 11/05/19 11/05/19 07:49 07:49 07:53 WBC 8.12 RBC 3.82 L Hgb 12.1 L Hct 36.9 L MCV 96.6 MCH 31.7 MCHC 32.8 RDW Std Deviation 61.3 H RDW Coeff of Rebecca 17.4 H Plt Count 151 MPV 9.8 Immature Gran % (Auto) 0.1 Neut % (Auto) 62.7 Lymph % (Auto) 22.4 [place] % (Auto) 14.0 Eos % (Auto) 0.6 Baso % (Auto) 0.2 Immature Gran # (Auto) 0.01 Neut # (Auto) 5.08 Lymph # (Auto) 1.82 [place] # (Auto) 1.14 H Eos # (Auto) 0.05 Baso # (Auto) 0.02 ESR Sodium 132 L Potassium 4.2 Chloride 97 L Carbon Dioxide 26 Anion Gap 9.0 BUN 43 H Creatinine 7.46 H* Est Cr Clr Drug Dosing 14.1 Est GFR ( Amer) 9.8 Est GFR (Non-Af Amer) 8.5 BUN/Creatinine Ratio 5.7 L Glucose 77 POC Glucose 70 Calcium 9.1 Total Bilirubin 0.8 AST 31 ALT 29 Alkaline Phosphatase 116 Total Creatine Kinase C-Reactive Protein Total Protein 7.3 Albumin 2.8 L Globulin 4.5 H Albumin/Globulin Ratio 0.6 L Random Vancomycin Rheumatoid Factor Cycl Citrul Peptide IgG Proteinase 3 (PR3) Anti-Neutrophil (Flow) CAREN-1 Antibody SS-A/Ro Antibody SS-B/La Antibody Sm ([place]) Antibody VIROLOGY TEACHER Antibody Scl-70 Scleroderma Ab Double Strand DNA Ab Anti-Centromere Ab Glomerular Base Memb Ab C. psittaci IgG Titer C. psittaci IgA Titer C. psittaci IgM Titer C. psittaci Ab Interp Saccharo. viridis Ab T. candidus Antibody T. sacchari Antibody T. vulgaris Antibody A. alternata IgG Ab Aspergill fumigatus Ab Aureobasidium pullulans Cladosporium herbar IgG Penicillium notatum IgG Micropolyspora faeni Ab Phoma species IgG Ab Trichoderma viride IgG [place] Serum Precipitin S. rectivirgula 11/05/19 11/05/19 11/05/19 12:11 15:22 15:22 WBC RBC Hgb Hct MCV MCH MCHC RDW Std Deviation RDW Coeff of Rebecca Plt Count MPV Immature Gran % (Auto) Neut % (Auto) Lymph % (Auto) [place] % (Auto) Eos % (Auto) Baso % (Auto) Immature Gran # (Auto) Neut # (Auto) Lymph # (Auto) [place] # (Auto) Eos # (Auto) Baso # (Auto) ESR 53 H Sodium Potassium Chloride Carbon Dioxide Anion Gap BUN Creatinine Est Cr Clr Drug Dosing Est GFR ( Amer) Est GFR (Non-Af Amer) BUN/Creatinine Ratio Glucose POC Glucose 126 H Calcium Total Bilirubin AST ALT Alkaline Phosphatase Total Creatine Kinase 47 C-Reactive Protein 18.40 H Total Protein Albumin Globulin Albumin/Globulin Ratio Random Vancomycin Rheumatoid Factor Cycl Citrul Peptide IgG Proteinase 3 (PR3) Anti-Neutrophil (Flow) CAREN-1 Antibody SS-A/Ro Antibody SS-B/La Antibody Sm ([place]) Antibody VIROLOGY TEACHER Antibody Scl-70 Scleroderma Ab Double Strand DNA Ab Anti-Centromere Ab Glomerular Base Memb Ab C. psittaci IgG Titer C. psittaci IgA Titer C. psittaci IgM Titer C. psittaci Ab Interp Saccharo. viridis Ab T. candidus Antibody T. sacchari Antibody T. vulgaris Antibody A. alternata IgG Ab Aspergill fumigatus Ab Aureobasidium pullulans Cladosporium herbar IgG Penicillium notatum IgG Micropolyspora faeni Ab Phoma species IgG Ab Trichoderma viride IgG [place] Serum Precipitin S. rectivirgula 11/05/19 11/05/19 11/05/19 15:22 15:22 15:22 WBC RBC Hgb Hct MCV MCH MCHC RDW Std Deviation RDW Coeff of Rebecca Plt Count MPV Immature Gran % (Auto) Neut % (Auto) Lymph % (Auto) [place] % (Auto) Eos % (Auto) Baso % (Auto) Immature Gran # (Auto) Neut # (Auto) Lymph # (Auto) [place] # (Auto) Eos # (Auto) Baso # (Auto) ESR Sodium Potassium Chloride Carbon Dioxide Anion Gap BUN Creatinine Est Cr Clr Drug Dosing Est GFR ( Amer) Est GFR (Non-Af Amer) BUN/Creatinine Ratio Glucose POC Glucose Calcium Total Bilirubin AST ALT Alkaline Phosphatase Total Creatine Kinase C-Reactive Protein Total Protein Albumin Globulin Albumin/Globulin Ratio Random Vancomycin Rheumatoid Factor Pending Cycl Citrul Peptide IgG < 0.40 Proteinase 3 (PR3) Pending Anti-Neutrophil (Flow) Pending CAREN-1 Antibody Pending SS-A/Ro Antibody Pending SS-B/La Antibody Pending Sm ([place]) Antibody Pending VIROLOGY TEACHER Antibody Pending Scl-70 Scleroderma Ab Pending Double Strand DNA Ab Anti-Centromere Ab Pending Glomerular Base Memb Ab Pending C. psittaci IgG Titer Pending C. psittaci IgA Titer Pending C. psittaci IgM Titer Pending C. psittaci Ab Interp Pending Saccharo. viridis Ab Pending Pending T. candidus Antibody Pending Pending T. sacchari Antibody Pending T. vulgaris Antibody Pending Pending A. alternata IgG Ab Pending Aspergill fumigatus Ab Pending Pending Aureobasidium pullulans Pending Cladosporium herbar IgG Pending Penicillium notatum IgG Pending Micropolyspora faeni Ab Pending Phoma species IgG Ab Pending Trichoderma viride IgG Pending [place] Serum Precipitin Pending S. rectivirgula Pending 11/05/19 11/05/19 15:22 15:48 WBC RBC Hgb Hct MCV MCH MCHC RDW Std Deviation RDW Coeff of Rebecca Plt Count MPV Immature Gran % (Auto) Neut % (Auto) Lymph % (Auto) [place] % (Auto) Eos % (Auto) Baso % (Auto) Immature Gran # (Auto) Neut # (Auto) Lymph # (Auto) [place] # (Auto) Eos # (Auto) Baso # (Auto) ESR Sodium Potassium Chloride Carbon Dioxide Anion Gap BUN Creatinine Est Cr Clr Drug Dosing Est GFR ( Amer) Est GFR (Non-Af Amer) BUN/Creatinine Ratio Glucose POC Glucose 138 H Calcium Total Bilirubin AST ALT Alkaline Phosphatase Total Creatine Kinase C-Reactive Protein Total Protein Albumin Globulin Albumin/Globulin Ratio Random Vancomycin Rheumatoid Factor Cycl Citrul Peptide IgG Proteinase 3 (PR3) Anti-Neutrophil (Flow) CAREN-1 Antibody SS-A/Ro Antibody SS-B/La Antibody Sm ([place]) Antibody VIROLOGY TEACHER Antibody Scl-70 Scleroderma Ab Double Strand DNA Ab Pending Anti-Centromere Ab Glomerular Base Memb Ab C. psittaci IgG Titer C. psittaci IgA Titer C. psittaci IgM Titer C. psittaci Ab Interp Saccharo. viridis Ab T. candidus Antibody T. sacchari Antibody T. vulgaris Antibody A. alternata IgG Ab Aspergill fumigatus Ab Aureobasidium pullulans Cladosporium herbar IgG Penicillium notatum IgG Micropolyspora faeni Ab Phoma species IgG Ab Trichoderma viride IgG [place] Serum Precipitin S. rectivirgula Microbiology 11/03/19 03:00 Blood Aerobic Blood Culture - Final Coag neg staph not lugdunensis 11/03/19 03:00 Blood Anaerobic Blood Culture - Final Coag neg staph not lugdunensis 11/03/19 03:52 Blood Aerobic Blood Culture - Preliminary No growth in Aerobic bottle after 48 hours. 11/03/19 03:52 Blood Anaerobic Blood Culture - Preliminary No growth in Anaerobic bottle after 48 hours. Diagnostic Findings XR chest 1V portable CLINICAL HISTORY: f/u Pulm edema. Do after dialysis so after 2 PM. COMPARISON STUDY: 11/04/2019 FINDINGS: Findings of diffuse pulmonary edema is again noted. Its appearance overall is similar. Perhaps slight improvement in perihilar aeration. Permacath remains in superior vena cava. IMPRESSION: Pulmonary edema essentially unchanged to perhaps slightly improved from the prior exam. Medications Administered Current Inpatient Medications Acetaminophen (Tylenol) 650 mg PO Q4H PRN PRN Reason: Pain or Fever Stop: 12/03/19 07:32 Amlodipine Besylate (Norvasc) 10 mg PO DAILY [facility] Stop: 12/03/19 08:59 Last Admin: 11/05/19 07:43 Dose: 10 mg Documented by: Clonazepam (Klonopin) 0.5 mg PO BID AYESHA Stop: 12/03/19 08:59 Last Admin: 11/05/19 07:47 Dose: 0.5 mg Documented by: Clonidine HCl (Hejllhdy-Oju-9 0.2mg/24hr) 1 patch TD Sanches@0900 [facility] Stop: 12/08/19 08:59 Dextrose (Dextrose 50%) 25 - 50 ml IV UD PRN; Protocol PRN Reason: Hypoglycemia Protocol Stop: 12/03/19 07:32 Last Admin: 11/04/19 22:48 Dose: 25 ml Documented by: Gabapentin (Neurontin) 100 mg PO HS AYESHA Stop: 12/03/19 20:59 Last Admin: 11/04/19 21:59 Dose: 100 mg Documented by: Glucagon (Glucagen) 1 mg SQ UD PRN; Protocol PRN Reason: Hypoglycemia Protocol Stop: 12/03/19 07:32 Glucose (Dex4 Glucose) 4 - 8 tabs PO UD PRN; Protocol PRN Reason: Hypoglycemia Protocol Stop: 12/03/19 07:32 Glucose (Glucose 40%) 15 - 30 gm PO UD PRN; Protocol PRN Reason: Hypoglycemia Protocol Stop: 12/03/19 07:32 Heparin Sodium (Porcine) (Heparin Sodium (Porcine)) 5,000 units SQ Q12 [facility] Stop: 12/03/19 08:59 Last Admin: 11/05/19 07:44 Dose: 5,000 units Documented by: Piperacillin Sod/Tazobactam (Sod 3.375 gm/ Dextrose) 115 mls @ 28.75 mls/hr IV Q12H [facility]; Protocol Stop: 11/10/19 11:59 Last Infusion: 11/05/19 15:34 Dose: Infused Documented by: Doxycycline Hyclate 100 mg/ (Dextrose) 110 mls @ 50 mls/hr IV Q12H [facility] Stop: 11/12/19 15:59 Last Admin: 11/05/19 15:50 Dose: 50 mls/hr Documented by: Ceftriaxone Sodium 1,000 mg/ (Dextrose) 50 mls @ 100 mls/hr IV Q24H [facility]; Protocol Stop: 11/12/19 14:59 Last Admin: 11/05/19 15:49 Dose: 100 mls/hr Documented by: Dextrose (D10w) 1,000 mls @ 30 mls/hr IV .Q24H [facility] Stop: 12/05/19 14:59 Insulin Aspart (Novolog Flexpen) 0 units SC ACHS [facility] Stop: 12/03/19 07:32 Last Admin: 11/05/19 15:50 Dose: Not Given Documented by: Insulin Aspart (Novolog Flexpen) 0 units SC TODAY@0200 [facility] Stop: 12/04/19 01:59 Last Admin: 11/05/19 01:47 Dose: Not Given Documented by: Insulin Glargine (Lantus Solostar Pen) [facility] [place] Protocol Stop: 12/05/19 11:29 Last Admin: 11/05/19 13:45 Dose: 15 units Documented by: Irbesartan (Avapro) 300 mg PO DAILY [facility] Stop: 12/03/19 08:59 Last Admin: 11/05/19 07:43 Dose: 300 mg Documented by: Methadone HCl (Dolophine) 90 mg PO DAILY [facility] Stop: 11/17/19 08:59 Last Admin: 11/05/19 07:46 Dose: 90 mg Documented by: Metoprolol Succinate (Toprol Xl) 75 mg PO BID [facility] Stop: 12/03/19 08:59 Last Admin: 11/05/19 07:42 Dose: 75 mg Documented by: Miscellaneous (Check Clonidine Patch) 1 ea N/A QS [facility] Stop: 12/03/19 07:59 Last Admin: 11/05/19 15:50 Dose: 1 ea Documented by: Miscellaneous (Carbohydrates For Hypoglycemia) 15 - 30 gm PO UD PRN PRN Reason: Hypoglycemia Protocol Stop: 12/03/19 07:32 Last Admin: 11/05/19 07:37 Dose: 15 gm Documented by: Tameka (Order Awaiting Action) 1 ea N/A QS [facility] Stop: 12/03/19 15:59 Last Admin: 11/05/19 16:35 Dose: Not Given Documented by: Amaliaaneous (Order Awaiting Action) 1 ea N/A QS [facility] Stop: 12/03/19 15:59 Last Admin: 11/05/19 16:35 Dose: Not Given Documented by: Brissacellaneous (Remove Clonidine Patch) 1 ea N/A Sanches@[id number] [facility] Stop: 12/08/19 08:58 Miscellaneous Information (Consult Glycemic Management Pharmacy) 1 ea N/A UD [facility] Stop: 12/03/19 10:37 Sofosbuvir & Velpatasvir Patients Own Med 1 ea PO DAILY [facility]YES[facility] Stop: 12/04/19 08:59 Last Admin: 11/05/19 07:41 Dose: 1 tabs Documented by: Ondansetron HCl (Zofran) 4 mg IV Q6H PRN PRN Reason: Nausea Stop: 12/03/19 07:32 Last Admin: 11/04/19 09:01 Dose: 4 mg Documented by: Sevelamer HCl (Renagel) 800 mg PO TIDM [facility] Stop: 12/03/19 07:59 Last Admin: 11/05/19 13:47 Dose: Not Given Documented by: Vitamin B Complex/Folic Acid (Nephrocaps) 1 cap PO DAILY [facility] Stop: 12/03/19 08:59 Last Admin: 11/05/19 07:44 Dose: 1 cap Documented by: PG Care Time/CCT Total # of Minutes Spent Total Time Spent with Patient: Total time spent is greater than 50% in coordination of care (as documented) at patient's floor/unit and/or counseling patient: Coding Level of Care Code 52793 Subseq Hosp Care Lvl 3 Diagnoses Bacterial pneumonia J15.9 Acute dyspnea R06.00 End stage renal disease on dialysis due to type 1 diabetes mellitus E10.22; N18.6; Z99.2 Gram-positive cocci bacteremia R78.81 Long-term exposure involving bird droppings Z77.29 Hypertension I10 Hypertension type: essential hypertension Hepatitis C B19.20 Gastroparesis K31.84 Diabetic retinopathy of both eyes E11.319 Diabetes mellitus type I E10.22; N18.6; Z99.2 Diabetes mellitus complication status: with kidney complications Diabetes mellitus complication detail: with chronic kidney disease Chronic kidney disease stage: on chronic dialysis Anxiety F41.9 Anemia D64.9 Acute hypoxemic respiratory failure J96.01 Current vaping on some days Z72.89 (1) Hypertension Hypertension type: essential hypertension Qualified Code(s): I10 - Essential (primary) hypertension (2) Diabetes mellitus type I Diabetes mellitus complication status: with kidney complications Diabetes mellitus complication detail: with chronic kidney disease Chronic kidney disease stage: on chronic dialysis Qualified Code(s): E10.22 - Type 1 diabetes mellitus with diabetic chronic kidney disease; N18.6 - End stage renal disease; Z99.2 - Dependence on renal dialysis
--- NOTE | 2019-11-05 17:10 | CT Scan Report ---
CT chest wo con CLINICAL HISTORY: Hypoxia, bilateral infiltrates COMPARISON STUDY: 10/09/2019 CT DOSE: 220.58 mGy.cm TECHNIQUE: CT of the thorax was performed from the thoracic inlet to the lung bases. Images are revi ewed in the axial, sagittal, and coronal planes. IV contrast was not administered for this examinatio n. A dose lowering technique was utilized adhering to the principles of ALARA. FINDINGS: Thyroid: There is a stable exophytic right lobe thyroid nodule versus lobulation. Thoracic aorta: The thoracic aorta is normal in course and caliber, noting standard 3 vessel arch eddy yeyo. Heart: The heart is normal in size. There is no significant pericardial effusion. There are mild coleen nary artery calcifications. Lungs and pleural spaces: There are small bilateral pleural effusions. There are extensive bilateral areas of groundglass and parenchymal consolidation. This involves all lobes. The densest consolidatio n is within the left lower lobe. Correlate clinically in regards to an atypical or viral infectious p rocess. Mediastinum: There are borderline enlarged mediastinal lymph node statistically reactive. Milly: There is no evidence for significant hilar adenopathy given the limitations of a noncontrast st udy Axilla: There is no evidence of pathologic axillary lymphadenopathy Upper abdomen: Partially visualized upper abdominal viscera is within normal limits. Skeletal structures: There are no lytic or blastic osseous lesions. IMPRESSION: 1. Extensive bilateral areas of groundglass and parenchymal consolidation involving all lobes. 2. Small bilateral pleural effusions ACT 112: Negative or not required by law. Electronically signed by: Vincenzo Israel M.D. 11/05/2019 5:09 PM
[2019-11-05] MEDS: GABAPENTIN 100 MG CAP PO SCH (21:57)
[2019-11-05 23:55] LABS: Methadone, Ur Metabolite 3830 ng/mL (<100)
[2019-11-06] MEDS: DOXYCYCLINE HYCLATE 100 MG in DEXTROSE 5% 100 ML IV SCH ×2 (04:05→17:08)
[2019-11-06] MEDS: INSULIN ASPART 100 UNITS/ML 3 ML PEN SC SCH ×5 (04:06→21:31)
[2019-11-06] MEDS: CHECK CLONIDINE PATCH PLACEMENT SCH ×2 (07:25→15:28)
[2019-11-06] MEDS: SEVELAMER HCL 800 MG TABLET PO SCH ×3 (07:26→17:08)
[2019-11-06] MEDS: VELPATASVIR PO SCH (07:27)
[2019-11-06] MEDS: SOFOSBUVIR PO SCH (07:27)
[2019-11-06] MEDS: INSULIN GLARGINE SOLOSTAR 100 UNITS/ML 3 ML PEN SC SCH (07:30)
[2019-11-06 07:49] LABS: Hematocrit (blood only) 34.1 % (42-52); Hemoglobin 11.2 g/dL (14.0-18.0); Immature Granulocytes # (auto) 0.02 K/uL (0.00-0.02); Immature Granulocytes % (auto) 0.3 %; Lymphocytes # (auto) 1.01 K/uL (1.2-3.4); Lymphocytes % (auto) 15.8 %; Mean Corpuscular Hemoglobin 31.5 pg (25-34); Mean Corpuscular Hgb Conc 32.8 g/dL (32-36); Mean Corpuscular Volume 95.8 fL (80-100); Mean Platelet Volume 9.1 fL (7.4-10.4); Monocytes # (auto) 0.74 K/uL (0.11-0.59); Monocytes % (auto) 11.6 %; Neutrophils # (auto) 4.63 K/uL (1.4-6.5); Neutrophils % (auto) 72.3 %; Platelet Count 170 K/uL (130-400); RDW Coefficient of Variation 16.7 % (11.5-14.5); Red Blood Count 3.56 M/uL (4.7-6.1)
[2019-11-06 08:42] LABS: BUN Creatinine Ratio 7.2 (10-20); Calcium 8.9 mg/dl (8.5-10.1); Creatinine Clr Calc Pharmacy 17.9 ml/min; Est GFR (African American) 13.4; Est GFR (Non-African American) 11.5; Potassium 4.2 mmol/L (3.5-5.1)
[2019-11-06] MEDS ORDERED: INSULIN GLARGINE SOLOSTAR 100 UNITS/ML 3 ML PEN SC SCH (09:00)
--- NOTE | 2019-11-06 09:17 | History & Physical Bridge Note ---
Date of Service November 06, 2019 History & Physical Bridge Note I have examined the patient, reviewed the History & Physical and in the interval since the performance of the History & Physical I have noted the following changes of clinical significance: no changes noted
--- NOTE | 2019-11-06 09:54 | Pre Anesthesia Assessment ---
Date of Service November 06, 2019 Pre Sedation Assessment Vital Signs Temp Pulse Pulse Pulse Resp BP BP 11/06/19 08:00 98.1 F 64 64 18 148/83 H 11/06/19 07:39 65 18 11/06/19 05:08 67 15 11/06/19 03:41 98.2 F 65 16 156/87 H 11/06/19 02:06 65 13 11/06/19 00:00 69 11/05/19 23:41 98.2 F 67 15 161/94 H 11/05/19 22:26 68 19 11/05/19 22:00 72 2 L 11/05/19 21:44 71 23 11/05/19 21:41 72 12 158/90 H 11/05/19 20:51 73 15 149/86 H 11/05/19 20:00 73 8 L 11/05/19 19:34 73 18 11/05/19 18:00 74 21 11/05/19 17:19 73 16 11/05/19 16:00 72 16 11/05/19 15:41 71 16 158/96 H 11/05/19 14:46 73 19 11/05/19 14:00 72 18 11/05/19 13:28 71 18 162/84 H 11/05/19 13:21 98.4 F 71 71 160/84 H 160/84 H 11/05/19 13:13 71 12 160/84 H 11/05/19 13:00 71 172/91 H 11/05/19 12:58 71 19 169/91 H 11/05/19 12:43 70 19 172/91 H 11/05/19 12:40 70 158/82 H 11/05/19 12:29 72 18 172/91 H 11/05/19 12:28 70 13 158/82 H 11/05/19 12:23 98.6 F 70 14 167/84 H 11/05/19 12:20 70 167/84 H 11/05/19 12:13 69 17 167/84 H 11/05/19 12:00 69 13 135/94 11/05/19 11:58 68 18 135/94 11/05/19 11:43 68 25 H 152/80 H 11/05/19 11:40 68 157/94 H 11/05/19 11:28 68 18 157/94 H 11/05/19 11:20 68 143/72 H 11/05/19 11:13 67 15 143/72 H 11/05/19 11:00 67 138/73 11/05/19 10:58 67 15 138/73 11/05/19 10:43 68 19 140/90 11/05/19 10:40 68 130/71 11/05/19 10:28 68 16 130/71 11/05/19 10:20 68 134/68 11/05/19 10:13 68 18 134/68 11/05/19 10:00 67 12 133/72 11/05/19 09:58 67 21 133/71 Pulse Ox 11/06/19 08:00 97 11/06/19 07:39 96 11/06/19 05:08 96 11/06/19 03:41 100 11/06/19 02:06 95 11/06/19 00:00 11/05/19 23:41 96 11/05/19 22:26 100 11/05/19 22:00 100 11/05/19 21:44 98 11/05/19 21:41 95 11/05/19 20:51 91 11/05/19 20:00 94 11/05/19 19:34 92 11/05/19 18:00 11/05/19 17:19 93 11/05/19 16:00 94 11/05/19 15:41 95 11/05/19 14:46 94 11/05/19 14:00 90 11/05/19 13:28 91 11/05/19 13:21 11/05/19 13:13 93 11/05/19 13:00 11/05/19 12:58 89 L 11/05/19 12:43 95 11/05/19 12:40 11/05/19 12:29 92 11/05/19 12:28 84 L 11/05/19 12:23 88 L 11/05/19 12:20 11/05/19 12:13 90 11/05/19 12:00 85 L 11/05/19 11:58 86 L 11/05/19 11:43 85 L 11/05/19 11:40 11/05/19 11:28 86 L 11/05/19 11:20 11/05/19 11:13 87 L 11/05/19 11:00 11/05/19 10:58 85 L 11/05/19 10:43 83 L 11/05/19 10:40 11/05/19 10:28 87 L 11/05/19 10:20 11/05/19 10:13 85 L 11/05/19 10:00 87 L 11/05/19 09:58 86 L Pre-Sedation Airway Assessment Smoking Status: Former smoker Hx Sleep Apnea: No Short, Thick Neck: No Thyromental Distance: > or= 3.5 Finger Breadths Oral Cavity: + WNL Mallampati Class: II ASA: ASA3 NPO Status Date of Last Intake of Fluids: 11/05/19 Time of Last Intake of Fluids: 19:30 Date of Last Intake of Solid Food: 11/05/19 Time of Last Intake of Solid Foods: 12:00 Notes The planned sedation has been discussed with the patient. Informed Consent was obtained. I have identified the patient, determined the appropriateness of sedation and have assessed the patient immediately prior to the procedure. All medicine(s) and interventions are by my order.
[2019-11-06] MEDS ORDERED: LIDOCAINE 4% INH SOLN 4 ML BTL NAE ONE (10:54)
[2019-11-06] MEDS ORDERED: fentaNYL citrate 100 MCG/2 ML VIAL IV ONE (10:54)
[2019-11-06] MEDS ORDERED: HydrALAZINE HCL 20 MG/ML VIAL IV STA (10:54)
[2019-11-06] MEDS ORDERED: MIDAZOLAM HCL 1 MG/ML 2ML VIAL IV STA (10:54)
[2019-11-06] MEDS ORDERED: LIDOCAINE HCL 2% (LOCAL) INJ 50 ML VIAL INFIL STA (10:54)
[2019-11-06] MEDS ORDERED: LIDOCAINE HCL VISCOUS SOLN 2% 15 ML UDC TOP ONE (10:54)
--- NOTE | 2019-11-06 10:59 | Procedure Note ---
Procedure Note Date of Service November 06, 2019 Note The procedure began at 10:16 AM and ended at 10:51 AM. Patient was given 6 mg of Versed and 225 mcg of fentanyl. Patient was also found to be hypertensive with systolics in the high 190s. He was given 10 mg of hydralazine with improvement of his systolic blood pressure to the 160s. PREOPERATIVE DIAGNOSIS: Acute hypoxemic respiratory failure with bilateral groundglass opacities POSTOPERATIVE DIAGNOSIS: Same as above PROCEDURE PERFORMED: Flexible fiberoptic bronchoscopy with bronchial alveolar lavage from the left upper lobe anterior segment COMPLICATIONS: None. INDICATION: Rule out infectious etiology and acute eosinophilic pneumonia PROCEDURE: After obtaining an informed consent, the patient was brought to the Bronchoscopy Suite. The patient had appropriate oxygen, blood pressure, heart rate, and respiratory rate monitoring applied and monitored continuously throughout the procedure. Supplemental oxygen via nasal cannula as per nursing records was applied to the nasopharynx with adequate saturations achieved. Topic al anesthesia with nebulized 1% lidocaine was achieved. Subsequent to this, the patient was premedicated with 6 mg mg of midazolam and 225 Mcg of fentanyl. The oropharynx and larynx were well visualized and showed no significant findings. Vocal cords moving normally.. There was normal vocal cord motion without masses or lesions. Additional topical anesthesia with 1% lidocaine was applied to the trachea and maddy. The trachea appeared sharp.The bronchoscope was then advanced through the maddy, which was sharp. The scope was then advanced into the right main stem and each segment, subsegement in the right upper lobe, right middle lobe and right lower lobe was visualized. There was scant amounts of thin/clear secretions noted. There were no other findings. The bronchoscope was subsequently withdrawn and advanced into the left mainstem. Again, each segment and subsegment was well visualized. No specific masses or other lesions were identified throughout the tracheobronchial tree on the left. There was scant amounts of thin secretions noted. The bronchoscope was then wedged in the left upper lobe anterior segment and bronchoalveolar lavage samples were obtained. Bronchial alveolar lavage was performed in sequential aliquots. 180 ml of saline was instilled and 110 ml of fluid was aspirated back.The bronchoscope was withdrawn and the area was suctioned clear. The bronchoscope was then withdrawn. The patient tolerated the procedure well without evidence of desaturation or complications. Bronchoalveolar lavage samples were sent for cell count, Gram stain and bacterial culture, AFB culture and smear, fungal culture and smear, PCP PCR, chlamydia PCR and cytology. Recommendations: Follow cultures and testing. Will likely initiate IV Solu-Medrol 40 mg twice daily. Possible vaping associated lung injury versus hypersensitivity pneumonitis versus psittacosis. Continue doxycycline and ceftriaxone. Follow- up cell counts to evaluate for eosinophilic pneumonia. Coding CPT Codes Pulmonary/Thoracic - Pulmonary and Thoracic: 17305 Dx bronchoscopy/BAL ([id number]) Sedation/Anesthesia - Sedation/Anesthesia: 26686 Mod Sedation by the same physician; Ea [id number] Minutes ([id number]) [facility] [place] [facility] [place] Procedure Codes (Charges) Pulmonary/Thoracic Procedure 1: Pulmonary and Thoracic: 71662 Dx bronchoscopy/BAL Sedation/Anesthesia Procedure 1: Sedation/Anesthesia: 96522 Mod Sedation by the same physician; Ea [id number] Minutes Total Sedation Time (minutes): 35
[2019-11-06] MEDS ORDERED: INSULIN GLARGINE SOLOSTAR 100 UNITS/ML 3 ML PEN SC ONE (11:30)
--- NOTE | 2019-11-06 11:34 | Pharmacy Report ---
Pharmacy Glycemic Short Note 2 - Date of Service November 06, 2019 - Glycemic Short BSG Results (Last 24 hours): 11/05/19 11/05/19 11/05/19 12:11 15:48 18:47 Glucose POC Glucose 126 H 138 H 180 H 11/05/19 11/05/19 11/06/19 20:49 23:46 01:54 Glucose POC Glucose 221 H 216 H 213 H 11/06/19 11/06/19 11/06/19 04:00 07:22 07:35 Glucose 280 H POC Glucose 262 H 265 H 11/06/19 11:19 Glucose POC Glucose 238 H OUTPATIENT ANTIDIABETIC REGIMEN: * Novolog per pump * A1c = 8.1% 10/09/19 (but interpret with caution due to shortened RBC lifespan in ESRD) ASSESSMENT: 11/05 * BSGs have ranged 126-265 over last 24 hrs. BSGs did trend upwards yesterday following solu-medrol 40mg IV x 1. Uncertain if pt will restart steroid therapy for possible EVALI or not. * Of note, pt again had poor PO intake most of the day yesterday. Other than consuming 45gm for breakfast yesterday, he had nil intake the remainder of the day. Plans were made to begin D10W @30cc/hr to provide low level of CHO provision to allow for ongoing basal insulin provision to suppress ketosis in type 1 diabetic. However D10W was not started as pt received steroids and hyperglycemia developed. * BSGs are running in the mid-200s this AM, will cautiously increase his basal insulin dose at this time. * Will again plan to add D10W @30cc/hr if PO intake nil today (intake of 1 more or less) 11/04 * Patient did become hypoglycemic at bedtime last evening with BSGs dropping into the 40's. This was due to inadequate PO intake throughout the day while having usual basal needs on board. Pt was treated for hypoglycemia last evening with BSG recovery. This AM mild hypoglycemia also present (FBS 65- 69). Will hold basal insulin this AM, with intention to resume at lunchtime following repeat BSG check. Pt did eat all of his breakfast this AM (~45gm CHO). * Will scale back basal insulin dose 20% today. * If patient's appetite poor today, would recommend addition of dextrose containing maint IVFs (D10W). He will need CHO provision in PO or IV form in order to receive adequate basal insulin to suppress ketosis. 11/03 * BSGs did trend up initially following transition from insulin pump to SQ basal/bolus regimen, however BSGs now near goal today * Fasting BSG 167-185 this AM with 18 units basal on board and after receiving 1 unit Novolog correction overnight - will continue same * Post-prandial BSGs elevated yesterday however pt did start the day with what appeared to be basal insulin deficiency and BSGs did not climb following meals. Will continue same Novolog doses at this time as they have performed well in the past. 11/02 * Type 1 diabetic known to the Glycemic Control Service from prior admissions, admitted to [facility] overnight for pneumonia * Patient has his insulin pump in place this AM, delivering his basal rate however he does not have the remote with him to use the bolus feature. Will convert patient to basal/bolus regimen based upon experience from prior admissions. His insulin pump will be discontinued this AM. PLAN FOR INPATIENT GLYCEMIC CONTROL: * Hold insulin pump * Basal insulin - decrease * Lantus 15 units SQ QAM but give additional 2 units w/ lunch * begin 17 units SQ Q AM tomorrow * Bolus insulin - no change * NovoLog per scale ACHS or Q6hrs while NPO * Goal Range: Low 110 mg/dL - High 140 mg/dL * Correction Factor: 35 mg/dL/unit * Nutritional / Prandial insulin per carb ratio of 1 unit per 14 grams CHO consumed * If eating poorly, (ie eating less than 1 full meal per day) begin D10W maint IVFs at 30cc/hr to prophylax again hypoglycemia but permit continued insulin admin. PLAN FOR DISCHARGE: * To be determined. Would plan to transition patient back to his insulin pump prior to discharge if he can provide supplies and remote for operation. He may need to suspend his basal rates on the pump upon discharge depending upon the timing of his last Lantus dose.
--- NOTE | 2019-11-06 11:58 | Progress Notes ---
DATE: 11/06/2019 SUBJECTIVE: The patient is still requiring a lot of oxygen. He did have dialysis yesterday for 4 hours 30 minutes and we took about 4 to 4.5 kilo off with that. His breathing seems slightly better. After dialysis, he had a CT scan of the chest as well as a chest x-ray which shows bilateral ground-glass appearance. Dialysis catheter working fine. OBJECTIVE: VITAL SIGNS: Most recent vital signs shows blood pressure 140/71, pulse rate 66, temperature 36.7 degrees Celsius. He is on 15-liter of oxygen with an oxygen saturation of 93%. CHEST: Bilateral crackles at the bases. CARDIOVASCULAR: S1 and S2, regular. ABDOMEN: Soft, nontender. EXTREMITIES: Shows no edema. GENITOURINARY: Dialysis catheter working fine. LABORATORY TESTS: From this morning reviewed in detail. Hemoglobin 11.2. Sodium 132, potassium 4.2, BUN 42, creatinine 5.79. ASSESSMENT AND PLAN: A 34-year-old male with type 1 diabetes with ESRD, on chronic hemodialysis; TTS; admitted with shortness of breath, related with pneumonia/ARDS as well as pulmonary edema. ESRD: His next dialysis will be tomorrow and will do for 4 hours and take 4 kilo off. Based on the finding of the chest x-ray and the CT scan done yesterday after dialysis, it appears he likely has ARDS rather than primary pulmonary edema. Although, we will still try to take as much fluid as we can after dialysis tomorrow, we are aiming for 4-5 kilo. MTDD
[2019-11-06 13:10] LABS: Eosinophil Body Fluid Man 1 %; Fluid Mono/Macrophage 27 %; Lymphocyte Body Fluid Man 8 %; Neutrophil Body Fluid Man 64 %
[2019-11-06] MEDS ORDERED: methylPREDNISolone 40 MG in SYRINGE 0 ML IV STA (13:25)
[2019-11-06] MEDS: IRBESARTAN 150 MG TAB PO SCH (13:37)
[2019-11-06] MEDS: METOPROLOL SUCC 25MG EXT REL TAB PO SCH ×2 (13:38→20:18)
[2019-11-06] MEDS: AMLODIPINE BESYLATE 5 MG TAB PO SCH (13:38)
[2019-11-06] MEDS: NEPHROCAPS PO SCH (13:38)
[2019-11-06] MEDS: METHADONE HCL 10 MG TAB PO SCH (13:41)
[2019-11-06] MEDS: clonazePAM 0.5 MG TAB PO SCH ×2 (13:41→20:18)
[2019-11-06] MEDS: cefTRIAXone SODIUM 1,000 MG in DEXTROSE 5% 50 ML IV SCH (14:50)
--- NOTE | 2019-11-06 15:09 | Hospitalist Progress Note ---
Date of Service November 06, 2019 Assessment & Plan (1) Bacterial pneumonia: multifocal pneumonia, suspected to be bacterial as COVID and other viral tests negative bronchoscopy on 11/05 with no major findings Bronchoalveolar lavage samples were sent for cell count, Gram stain and bacterial culture, AFB culture and smear, fungal culture and smear, PCP PCR, chlamydia PCR and cytology. favorable response to Solu Medrol and antibiotics, quickly titrated from HFNC yesterday to 3L NC today, saturations 95% continue Solu Medrol 40mg IV q12, Doxycycline, Rocephin follow up results of lavage reports getting fever and dyspnea after cleaning bird cage, parrots also admits to vaping differential remains vaping associated lung injury, eosinophilic/hypersensitivity pneumonitis, psittacosis (2) Acute dyspnea: acute hypoxic respiratory failure initially thought to be volume overload superimposed on pneumonia however, still requiring BIPAP on 11/04 despite 7 liters removed the past 48 hours oxygen requirements vastly improved today, titrated down to 3L NC after bronchoscopy continue treatment, see differential above (3) End stage renal disease on dialysis due to type 1 diabetes mellitus: tolerated HD on 11/03 with 3L of UF tolerated HD on 11/04 with 4L of UF plan for HD tomorrow which is his normally scheduled day (4) Gram-positive cocci bacteremia: one of two sets with coag negative staph likely contaminant do not feel he has gram positive pneumonia repeat blood cultures today (5) Long-term exposure involving bird droppings: lives around 5 parrots, now with new parrot, Sena Brannon just cleaned the new cage out Saturday, fevers started Saturday treating for possible Psittacosis with Doxycycline (6) Hypertension: BP quite elevated at times continue home regimen with Clonidine, Norvasc, Irbesartan (7) Hepatitis C: continue home medications Sofosbuvir and Vepatasvir (8) Gastroparesis: (9) Diabetic retinopathy of both eyes: (10) Diabetes mellitus type I: back on diet, appetite much improved pharmacy is consulted to help with management monitor for hypoglycemia (11) Anxiety: Klonopin PRN Ativan PRN (12) Anemia: Hb stable (13) Acute hypoxemic respiratory failure: see above (14) Current vaping on some days: possible vaping associated lung injury Solu Medrol 40mg IV q12 Admission and Anticipated Discharge Date Admission Date: November 03, 2019 Subjective patient breathing much better this morning, comfortable on HFNC reviewed labs this morning, CBC stable, BMP with normal electrolytes underwent bronchoscopy with Dr. Cardona, tolerated well, no major findings, had bronchial lavage of both lobes after bronchoscopy he was breathing well, oxygen titrated down to 3L NC visited him again, eating lunch, no distress denies cough, chest pain/pressure, fever/chills, nausea/vomiting, abdominal pain discussed with nephrology, plan for HD tomorrow Review of Systems Review of Systems: All systems reviewed & are unremarkable except as noted in HPI & below Constitutional: no fever, no chills and no sweats Respiratory: + dyspnea and + dyspnea on exertion; no cough and no wheezing Cardiovascular: no chest pain and no edema Gastrointestinal: no abdominal pain, no nausea, no vomiting, no constipation and no diarrhea/loose stools Physical Exam Constitutional: well developed and well nourished; no acute distress Eyes: PERRL, conjunctivae normal, anicteric sclerae ENMT: external ear and nose normal, oropharynx normal Neck: trachea midline, no thyromegaly Respiratory: normal respiratory effort; no respiratory distress, no labored breathing and no cough Auscultation: + crackles Cardiovascular: Rate/Rhythm: regular rate and regular rhythm Heart Sounds: normal S1 and normal S2; no murmur Vessels: no JVD Extremities: normal capillary refill; no edema Gastrointestinal (Abdomen): normal bowel sounds, soft, nontender, no hepatosplenomegaly Musculoskeletal: no cyanosis or clubbing, extremities motor strength 5/5 Skin: no rashes, warm and dry Neurologic: patellar DTR's 2+ bilat, sensation intact and PERRL, EOMI, accommodation nl, no face palsy, no dysarthria Psychiatric: A+Ox3, euthymic affect Lymphatic: no cervical or axillary lymphadenopathy Results & Data Results & Data ([facility]) Vital Signs (Past 12 Hours) Vital Signs Temp Pulse Pulse Resp BP BP Pulse Ox 11/06/19 11:02 66 16 140/71 100 11/06/19 10:57 66 16 134/74 98 11/06/19 10:52 68 16 147/76 H 100 11/06/19 10:47 71 16 160/87 H 100 11/06/19 10:45 71 16 162/86 H 100 11/06/19 10:40 71 16 171/88 H 100 11/06/19 10:35 69 16 177/91 H 100 11/06/19 10:30 69 16 170/93 H 100 11/06/19 10:25 69 16 194/93 H 100 11/06/19 10:20 70 16 174/94 H 11/06/19 10:15 72 16 182/91 H 11/06/19 08:00 36.7 C 64 64 18 148/83 H 97 11/06/19 07:39 65 18 96 11/06/19 05:08 67 15 96 11/06/19 03:41 36.8 C 65 16 156/87 H 100 Laboratory Results Laboratory Results - last 24 hr 11/03/19 11/05/19 11/05/19 17:00 15:22 15:22 WBC RBC Hgb Hct MCV MCH MCHC RDW Std Deviation RDW Coeff of Rebecca Plt Count MPV Immature Gran % (Auto) Neut % (Auto) Lymph % (Auto) [place] % (Auto) Eos % (Auto) Baso % (Auto) Immature Gran # (Auto) Neut # (Auto) Lymph # (Auto) [place] # (Auto) Eos # (Auto) Baso # (Auto) ESR 53 H Sodium Potassium Chloride Carbon Dioxide Anion Gap BUN Creatinine Est Cr Clr Drug Dosing Est GFR ( Amer) Est GFR (Non-Af Amer) BUN/Creatinine Ratio Glucose POC Glucose Calcium Total Creatine Kinase 47 C-Reactive Protein 18.40 H Fluid Neutrophils % Fluid Lymphocytes % Fluid Eosinophils % Fl Monocyt/Macrophag % Random Vancomycin U Methadone Metabolites 3830 H Ur Methadone Confirm 1580 H Drug Screen Comment SEE NOTE Rheumatoid Factor Cycl Citrul Peptide IgG Proteinase 3 (PR3) Anti-Neutrophil (Flow) CAREN-1 Antibody SS-A/Ro Antibody SS-B/La Antibody Sm ([place]) Antibody CVIR TECH Antibody Scl-70 Scleroderma Ab Double Strand DNA Ab Anti-Centromere Ab Glomerular Base Memb Ab Chlamydia Source C. pneumoniae DNA (PCR) C. psittaci IgG Titer C. psittaci IgA Titer C. psittaci IgM Titer C. psittaci Ab Interp Saccharo. viridis Ab T. candidus Antibody T. sacchari Antibody T. vulgaris Antibody A. alternata IgG Ab Aspergill fumigatus Ab Aureobasidium pullulans Cladosporium herbar IgG Penicillium notatum IgG Micropolyspora faeni Ab Phoma species IgG Ab Trichoderma viride IgG [place] Serum Precipitin S. rectivirgula [facility] [place] Genetic Test 11/05/19 11/05/19 11/05/19 15:22 15:22 15:22 WBC RBC Hgb Hct MCV MCH MCHC RDW Std Deviation RDW Coeff of Rebecca Plt Count MPV Immature Gran % (Auto) Neut % (Auto) Lymph % (Auto) [place] % (Auto) Eos % (Auto) Baso % (Auto) Immature Gran # (Auto) Neut # (Auto) Lymph # (Auto) [place] # (Auto) Eos # (Auto) Baso # (Auto) ESR Sodium Potassium Chloride Carbon Dioxide Anion Gap BUN Creatinine Est Cr Clr Drug Dosing Est GFR ( Amer) Est GFR (Non-Af Amer) BUN/Creatinine Ratio Glucose POC Glucose Calcium Total Creatine Kinase C-Reactive Protein Fluid Neutrophils % Fluid Lymphocytes % Fluid Eosinophils % Fl Monocyt/Macrophag % Random Vancomycin U Methadone Metabolites Ur Methadone Confirm Drug Screen Comment Rheumatoid Factor Pending Cycl Citrul Peptide IgG < 0.40 Proteinase 3 (PR3) Pending Anti-Neutrophil (Flow) Pending CAREN-1 Antibody Pending SS-A/Ro Antibody Pending SS-B/La Antibody Pending Sm ([place]) Antibody Pending CVIR TECH Antibody Pending Scl-70 Scleroderma Ab Pending Double Strand DNA Ab Anti-Centromere Ab Pending Glomerular Base Memb Ab Pending Chlamydia Source C. pneumoniae DNA (PCR) C. psittaci IgG Titer Pending C. psittaci IgA Titer Pending C. psittaci IgM Titer Pending C. psittaci Ab Interp Pending Saccharo. viridis Ab Pending Pending T. candidus Antibody Pending Pending T. sacchari Antibody Pending T. vulgaris Antibody Pending Pending A. alternata IgG Ab Pending Aspergill fumigatus Ab Pending Pending Aureobasidium pullulans Pending Cladosporium herbar IgG Pending Penicillium notatum IgG Pending Micropolyspora faeni Ab Pending Phoma species IgG Ab Pending Trichoderma viride IgG Pending [place] Serum Precipitin Pending S. rectivirgula Pending [facility] [place] Genetic Test 11/05/19 11/05/19 11/05/19 15:22 15:48 18:47 WBC RBC Hgb Hct MCV MCH MCHC RDW Std Deviation RDW Coeff of Rebecca Plt Count MPV Immature Gran % (Auto) Neut % (Auto) Lymph % (Auto) [place] % (Auto) Eos % (Auto) Baso % (Auto) Immature Gran # (Auto) Neut # (Auto) Lymph # (Auto) [place] # (Auto) Eos # (Auto) Baso # (Auto) ESR Sodium Potassium Chloride Carbon Dioxide Anion Gap BUN Creatinine Est Cr Clr Drug Dosing Est GFR ( Amer) Est GFR (Non-Af Amer) BUN/Creatinine Ratio Glucose POC Glucose 138 H 180 H Calcium Total Creatine Kinase C-Reactive Protein Fluid Neutrophils % Fluid Lymphocytes % Fluid Eosinophils % Fl Monocyt/Macrophag % Random Vancomycin U Methadone Metabolites Ur Methadone Confirm Drug Screen Comment Rheumatoid Factor Cycl Citrul Peptide IgG Proteinase 3 (PR3) Anti-Neutrophil (Flow) CAREN-1 Antibody SS-A/Ro Antibody SS-B/La Antibody Sm ([place]) Antibody CVIR TECH Antibody Scl-70 Scleroderma Ab Double Strand DNA Ab Pending Anti-Centromere Ab Glomerular Base Memb Ab Chlamydia Source C. pneumoniae DNA (PCR) C. psittaci IgG Titer C. psittaci IgA Titer C. psittaci IgM Titer C. psittaci Ab Interp Saccharo. viridis Ab T. candidus Antibody T. sacchari Antibody T. vulgaris Antibody A. alternata IgG Ab Aspergill fumigatus Ab Aureobasidium pullulans Cladosporium herbar IgG Penicillium notatum IgG Micropolyspora faeni Ab Phoma species IgG Ab Trichoderma viride IgG [place] Serum Precipitin S. rectivirgula Misc Genetic Test 11/05/19 11/05/19 11/06/19 20:49 23:46 01:54 WBC RBC Hgb Hct MCV MCH MCHC RDW Std Deviation RDW Coeff of Rebecca Plt Count MPV Immature Gran % (Auto) Neut % (Auto) Lymph % (Auto) [place] % (Auto) Eos % (Auto) Baso % (Auto) Immature Gran # (Auto) Neut # (Auto) Lymph # (Auto) [place] # (Auto) Eos # (Auto) Baso # (Auto) ESR Sodium Potassium Chloride Carbon Dioxide Anion Gap BUN Creatinine Est Cr Clr Drug Dosing Est GFR ( Amer) Est GFR (Non-Af Amer) BUN/Creatinine Ratio Glucose POC Glucose 221 H 216 H 213 H Calcium Total Creatine Kinase C-Reactive Protein Fluid Neutrophils % Fluid Lymphocytes % Fluid Eosinophils % Fl Monocyt/Macrophag % Random Vancomycin U Methadone Metabolites Ur Methadone Confirm Drug Screen Comment Rheumatoid Factor Cycl Citrul Peptide IgG Proteinase 3 (PR3) Anti-Neutrophil (Flow) CAREN-1 Antibody SS-A/Ro Antibody SS-B/La Antibody Sm ([place]) Antibody CVIR TECH Antibody Scl-70 Scleroderma Ab Double Strand DNA Ab Anti-Centromere Ab Glomerular Base Memb Ab Chlamydia Source C. pneumoniae DNA (PCR) C. psittaci IgG Titer C. psittaci IgA Titer C. psittaci IgM Titer C. psittaci Ab Interp Saccharo. viridis Ab T. candidus Antibody T. sacchari Antibody T. vulgaris Antibody A. alternata IgG Ab Aspergill fumigatus Ab Aureobasidium pullulans Cladosporium herbar IgG Penicillium notatum IgG Micropolyspora faeni Ab Phoma species IgG Ab Trichoderma viride IgG [place] Serum Precipitin S. rectivirgula Misc Genetic Test 11/06/19 11/06/19 11/06/19 04:00 04:54 07:22 WBC RBC Hgb Hct MCV MCH MCHC RDW Std Deviation RDW Coeff of Rebecca Plt Count MPV Immature Gran % (Auto) Neut % (Auto) Lymph % (Auto) [place] % (Auto) Eos % (Auto) Baso % (Auto) Immature Gran # (Auto) Neut # (Auto) Lymph # (Auto) [place] # (Auto) Eos # (Auto) Baso # (Auto) ESR Sodium Potassium Chloride Carbon Dioxide Anion Gap BUN Creatinine Est Cr Clr Drug Dosing Est GFR ( Amer) Est GFR (Non-Af Amer) BUN/Creatinine Ratio Glucose POC Glucose 262 H 265 H Calcium Total Creatine Kinase C-Reactive Protein Fluid Neutrophils % Fluid Lymphocytes % Fluid Eosinophils % Fl Monocyt/Macrophag % Random Vancomycin 14.8 U Methadone Metabolites Ur Methadone Confirm Drug Screen Comment Rheumatoid Factor Cycl Citrul Peptide IgG Proteinase 3 (PR3) Anti-Neutrophil (Flow) CAREN-1 Antibody SS-A/Ro Antibody SS-B/La Antibody Sm ([place]) Antibody CVIR TECH Antibody Scl-70 Scleroderma Ab Double Strand DNA Ab Anti-Centromere Ab Glomerular Base Memb Ab Chlamydia Source C. pneumoniae DNA (PCR) C. psittaci IgG Titer C. psittaci IgA Titer C. psittaci IgM Titer C. psittaci Ab Interp Saccharo. viridis Ab T. candidus Antibody T. sacchari Antibody T. vulgaris Antibody A. alternata IgG Ab Aspergill fumigatus Ab Aureobasidium pullulans Cladosporium herbar IgG Penicillium notatum IgG Micropolyspora faeni Ab Phoma species IgG Ab Trichoderma viride IgG [place] Serum Precipitin S. rectivirgula Misc Genetic Test 11/06/19 11/06/19 11/06/19 07:35 07:35 10:44 WBC 6.40 RBC 3.56 L Hgb 11.2 L Hct 34.1 L MCV 95.8 MCH 31.5 MCHC 32.8 RDW Std Deviation 59.0 H RDW Coeff of Rebecca 16.7 H Plt Count 170 MPV 9.1 Immature Gran % (Auto) 0.3 Neut % (Auto) 72.3 Lymph % (Auto) 15.8 [place] % (Auto) 11.6 Eos % (Auto) 0.0 Baso % (Auto) 0.0 Immature Gran # (Auto) 0.02 Neut # (Auto) 4.63 Lymph # (Auto) 1.01 L [place] # (Auto) 0.74 H Eos # (Auto) 0.00 Baso # (Auto) 0.00 ESR Sodium 132 L Potassium 4.2 Chloride 97 L Carbon Dioxide 25 Anion Gap 10.0 BUN 42 H Creatinine 5.79 H* D Est Cr Clr Drug Dosing 17.9 Est GFR ( Amer) 13.4 Est GFR (Non-Af Amer) 11.5 BUN/Creatinine Ratio 7.2 L Glucose 280 H POC Glucose Calcium 8.9 Total Creatine Kinase C-Reactive Protein Fluid Neutrophils % 64 Fluid Lymphocytes % 8 Fluid Eosinophils % 1 Fl Monocyt/Macrophag % 27 Random Vancomycin U Methadone Metabolites Ur Methadone Confirm Drug Screen Comment Rheumatoid Factor Cycl Citrul Peptide IgG Proteinase 3 (PR3) Anti-Neutrophil (Flow) CAREN-1 Antibody SS-A/Ro Antibody SS-B/La Antibody Sm ([place]) Antibody CVIR TECH Antibody Scl-70 Scleroderma Ab Double Strand DNA Ab Anti-Centromere Ab Glomerular Base Memb Ab Chlamydia Source C. pneumoniae DNA (PCR) C. psittaci IgG Titer C. psittaci IgA Titer C. psittaci IgM Titer C. psittaci Ab Interp Saccharo. viridis Ab T. candidus Antibody T. sacchari Antibody T. vulgaris Antibody A. alternata IgG Ab Aspergill fumigatus Ab Aureobasidium pullulans Cladosporium herbar IgG Penicillium notatum IgG Micropolyspora faeni Ab Phoma species IgG Ab Trichoderma viride IgG [place] Serum Precipitin S. rectivirgula Misc Genetic Test 11/06/19 11/06/19 11/06/19 10:44 10:44 11:19 WBC RBC Hgb Hct MCV MCH MCHC RDW Std Deviation RDW Coeff of Rebecca Plt Count MPV Immature Gran % (Auto) Neut % (Auto) Lymph % (Auto) [place] % (Auto) Eos % (Auto) Baso % (Auto) Immature Gran # (Auto) Neut # (Auto) Lymph # (Auto) [place] # (Auto) Eos # (Auto) Baso # (Auto) ESR Sodium Potassium Chloride Carbon Dioxide Anion Gap BUN Creatinine Est Cr Clr Drug Dosing Est GFR ( Amer) Est GFR (Non-Af Amer) BUN/Creatinine Ratio Glucose POC Glucose 238 H Calcium Total Creatine Kinase C-Reactive Protein Fluid Neutrophils % Fluid Lymphocytes % Fluid Eosinophils % Fl Monocyt/Macrophag % Random Vancomycin U Methadone Metabolites Ur Methadone Confirm Drug Screen Comment Rheumatoid Factor Cycl Citrul Peptide IgG Proteinase 3 (PR3) Anti-Neutrophil (Flow) CAREN-1 Antibody SS-A/Ro Antibody SS-B/La Antibody Sm ([place]) Antibody CVIR TECH Antibody Scl-70 Scleroderma Ab Double Strand DNA Ab Anti-Centromere Ab Glomerular Base Memb Ab Chlamydia Source Pending C. pneumoniae DNA (PCR) Pending C. psittaci IgG Titer C. psittaci IgA Titer C. psittaci IgM Titer C. psittaci Ab Interp Saccharo. viridis Ab T. candidus Antibody T. sacchari Antibody T. vulgaris Antibody A. alternata IgG Ab Aspergill fumigatus Ab Aureobasidium pullulans Cladosporium herbar IgG Penicillium notatum IgG Micropolyspora faeni Ab Phoma species IgG Ab Trichoderma viride IgG [place] Serum Precipitin S. rectivirgula Misc Genetic Test Pending Medications Administered Current Inpatient Medications Acetaminophen (Tylenol) 650 mg PO Q4H PRN PRN Reason: Pain or Fever Stop: 12/03/19 07:32 Amlodipine Besylate (Norvasc) 10 mg PO DAILY AYESHA Stop: 12/03/19 08:59 Last Admin: 11/06/19 13:38 Dose: 10 mg Documented by: Clonazepam (Klonopin) 0.5 mg PO BID AYESHA Stop: 12/03/19 08:59 Last Admin: 11/06/19 13:41 Dose: 0.5 mg Documented by: Clonidine HCl (Adwazvce-Rlt-1 0.2mg/24hr) 1 patch TD Sanches@0900 [facility] Stop: 12/08/19 08:59 Dextrose (Dextrose 50%) 25 - 50 ml IV UD PRN; Protocol PRN Reason: Hypoglycemia Protocol Stop: 12/03/19 07:32 Last Admin: 11/04/19 22:48 Dose: 25 ml Documented by: Gabapentin (Neurontin) 100 mg PO HS AYESHA Stop: 12/03/19 20:59 Last Admin: 11/05/19 21:57 Dose: 100 mg Documented by: Glucagon (Glucagen) 1 mg SQ UD PRN; Protocol PRN Reason: Hypoglycemia Protocol Stop: 12/03/19 07:32 Glucose (Dex4 Glucose) 4 - 8 tabs PO UD PRN; Protocol PRN Reason: Hypoglycemia Protocol Stop: 12/03/19 07:32 Glucose (Glucose 40%) 15 - 30 gm PO UD PRN; Protocol PRN Reason: Hypoglycemia Protocol Stop: 12/03/19 07:32 Heparin Sodium (Porcine) (Heparin Sodium (Porcine)) 5,000 units SQ Q12 AYESHA Stop: 12/03/19 08:59 Last Admin: 11/05/19 23:52 Dose: Not Given Documented by: Doxycycline Hyclate 100 mg/ (Dextrose) 110 mls @ 50 mls/hr IV Q12H [facility] Stop: 11/12/19 15:59 Last Infusion: 11/06/19 06:17 Dose: Infused Documented by: Ceftriaxone Sodium 1,000 mg/ (Dextrose) 50 mls @ 100 mls/hr IV Q24H [facility]; Protocol Stop: 11/12/19 14:59 Last Admin: 11/06/19 14:50 Dose: 100 mls/hr Documented by: Insulin Aspart (Novolog Flexpen) 0 units SC ACHS [facility] Stop: 12/03/19 07:32 Last Admin: 11/06/19 12:01 Dose: 3 units Documented by: Insulin Glargine (Lantus Solostar Pen) 17 units SC QAM [facility]; Protocol Stop: 12/07/19 08:59 Irbesartan (Avapro) 300 mg PO DAILY [facility] Stop: 12/03/19 08:59 Last Admin: 11/06/19 13:37 Dose: 300 mg Documented by: Methadone HCl (Dolophine) 90 mg PO DAILY AYESHA Stop: 11/17/19 08:59 Last Admin: 11/06/19 13:41 Dose: 90 mg Documented by: Metoprolol Succinate (Toprol Xl) 75 mg PO BID AYESHA Stop: 12/03/19 08:59 Last Admin: 11/06/19 13:38 Dose: 75 mg Documented by: Miscellaneous (Check Clonidine Patch) 1 ea N/A QS [facility] Stop: 12/03/19 07:59 Last Admin: 11/06/19 07:25 Dose: 1 ea Documented by: Miscellaneous (Carbohydrates For Hypoglycemia) 15 - 30 gm PO UD PRN PRN Reason: Hypoglycemia Protocol Stop: 12/03/19 07:32 Last Admin: 11/05/19 07:37 Dose: 15 gm Documented by: Brissacellaneous (Order Awaiting Action) 1 ea N/A QS [facility] Stop: 12/03/19 15:59 Last Admin: 11/06/19 07:26 Dose: Not Given Documented by: Brissacellaneous (Order Awaiting Action) 1 ea N/A QS [facility] Stop: 12/03/19 15:59 Last Admin: 11/06/19 07:26 Dose: Not Given Documented by: Miscellaneous (Remove Clonidine Patch) 1 ea N/A Sanches@0859 [facility] Stop: 12/08/19 08:58 Miscellaneous (Pending Order) 1 ea N/A TODAY@1800 ONE Stop: 11/06/19 18:01 Miscellaneous Information (Consult Glycemic Management Pharmacy) 1 ea N/A UD [facility] Stop: 12/03/19 10:37 Sofosbuvir & Velpatasvir Patients Own Med 1 ea PO DAILY AYESHA Stop: 12/04/19 08:59 Last Admin: 11/06/19 07:27 Dose: Not Given Documented by: Ondansetron HCl (Zofran) 4 mg IV Q6H PRN PRN Reason: Nausea Stop: 12/03/19 07:32 Last Admin: 11/04/19 09:01 Dose: 4 mg Documented by: Prednisone (Prednisone) 40 mg PO DAILY [facility] Stop: 11/12/19 08:59 Sevelamer HCl (Renagel) 800 mg PO TIDM AYESHA Stop: 12/03/19 07:59 Last Admin: 11/06/19 12:02 Dose: Not Given Documented by: Vitamin B Complex/Folic Acid (Nephrocaps) 1 cap PO DAILY AYESHA Stop: 12/03/19 08:59 Last Admin: 11/06/19 13:38 Dose: 1 cap Documented by: PG Care Time/CCT Total # of Minutes Spent Total Time Spent with Patient: Total time spent is greater than 50% in coordination of care (as documented) at patient's floor/unit and/or counseling patient: Coding Level of Care Code 15643 Subseq Hosp Care Lvl 3 Diagnoses Bacterial pneumonia J15.9 Acute dyspnea R06.00 End stage renal disease on dialysis due to type 1 diabetes mellitus E10.22; N18.6; Z99.2 Gram-positive cocci bacteremia R78.81 Long-term exposure involving bird droppings Z77.29 Hypertension I10 Hypertension type: essential hypertension Hepatitis C B19.20 Gastroparesis K31.84 Diabetic retinopathy of both eyes E11.319 Diabetes mellitus type I E10.22; N18.6; Z99.2 Diabetes mellitus complication status: with kidney complications Diabetes mellitus complication detail: with chronic kidney disease Chronic kidney disease stage: on chronic dialysis Anxiety F41.9 Anemia D64.9 Acute hypoxemic respiratory failure J96.01 Current vaping on some days Z72.89 (1) Hypertension Hypertension type: essential hypertension Qualified Code(s): I10 - Essential (primary) hypertension (2) Diabetes mellitus type I Diabetes mellitus complication status: with kidney complications Diabetes mellitus complication detail: with chronic kidney disease Chronic kidney disease stage: on chronic dialysis Qualified Code(s): E10.22 - Type 1 diabetes mellitus with diabetic chronic kidney disease; N18.6 - End stage renal disease; Z99.2 - Dependence on renal dialysis
[2019-11-06] MEDS: GABAPENTIN 100 MG CAP PO SCH (20:17)
[2019-11-06] MEDS ORDERED: INSULIN HUMAN REGULAR PER UNIT 5 UNITS in SYRINGE 4.95 ML IV ONE (21:15)
[2019-11-06] MEDS: HEPARIN SOD 5,000 UNIT/0.5 ML VIAL SQ SCH (21:31)
[2019-11-07] MEDS: CHECK CLONIDINE PATCH PLACEMENT SCH ×3 (00:29→17:22)
[2019-11-07] MEDS: INSULIN ASPART 100 UNITS/ML 3 ML PEN SC SCH ×6 (00:30→21:00)
[2019-11-07] MEDS ORDERED: INSULIN HUMAN REGULAR PER UNIT 6 UNITS in SYRINGE 5.94 ML IV ONE (00:45)
[2019-11-07] MEDS: DOXYCYCLINE HYCLATE 100 MG in DEXTROSE 5% 100 ML IV SCH ×2 (04:36→18:16)
[2019-11-07] MEDS: SEVELAMER HCL 800 MG TABLET PO SCH ×3 (08:27→18:18)
[2019-11-07] MEDS: IRBESARTAN 150 MG TAB PO SCH (08:27)
[2019-11-07] MEDS: METHADONE HCL 10 MG TAB PO SCH (08:27)
[2019-11-07] MEDS: HEPARIN SOD 5,000 UNIT/0.5 ML VIAL SQ SCH ×2 (08:28→21:02)
[2019-11-07] MEDS: SOFOSBUVIR PO SCH (08:29)
[2019-11-07] MEDS: VELPATASVIR PO SCH (08:29)
[2019-11-07] MEDS: predniSONE 20 MG TAB PO SCH (08:30)
[2019-11-07] MEDS: AMLODIPINE BESYLATE 5 MG TAB PO SCH (08:30)
[2019-11-07] MEDS: METOPROLOL SUCC 25MG EXT REL TAB PO SCH ×2 (08:31→21:02)
[2019-11-07] MEDS: clonazePAM 0.5 MG TAB PO SCH ×2 (08:32→20:59)
[2019-11-07 08:38] LABS: Immature Granulocytes # (auto) 0.03 K/uL (0.00-0.02); Immature Granulocytes % (auto) 0.3 %; Lymphocytes # (auto) 1.33 K/uL (1.2-3.4); Lymphocytes % (auto) 13.2 %; Mean Corpuscular Hemoglobin 31.3 pg (25-34); Mean Corpuscular Hgb Conc 33.3 g/dL (32-36); Mean Platelet Volume 9.4 fL (7.4-10.4); Monocytes # (auto) 0.69 K/uL (0.11-0.59); Monocytes % (auto) 6.9 %; Neutrophils # (auto) 8.01 K/uL (1.4-6.5); Neutrophils % (auto) 79.6 %; Platelet Count 196 K/uL (130-400); RDW Coefficient of Variation 16.5 % (11.5-14.5); RDW Standard Deviation 56.7 fL (36.4-46.3); Red Blood Count 3.83 M/uL (4.7-6.1); White Blood Count 10.06 K/uL (4.8-10.8)
[2019-11-07] MEDS ORDERED: INSULIN GLARGINE SOLOSTAR 100 UNITS/ML 3 ML PEN SC SCH ×2 (09:00)
[2019-11-07 09:37] LABS: Calcium 9.5 mg/dl (8.5-10.1); Creatinine Clr Calc Pharmacy 13.2 ml/min; Est GFR (African American) 9.3; Potassium 4.6 mmol/L (3.5-5.1)
--- NOTE | 2019-11-07 09:38 | XRay Report ---
XR chest 2V PA/lateral CLINICAL HISTORY: follow up infiltrates COMPARISON STUDY: 11/05/2019 FINDINGS: The cardiac and mediastinal contours remain stable. There is been marked interval improveme nt in the bilateral pulmonary airspace opacities. The findings are indicative of resolving pulmonary edema. There is a right-sided central venous catheter. No large pleural effusions are visualized.[ IMPRESSION: Marked improvement in the previously identified pulmonary edema pattern ACT 112: Negative or not required by law. Electronically signed by: Vincenoz Israel M.D. 11/07/2019 9:37 AM
[2019-11-07] MEDS: NEPHROCAPS PO SCH (09:46)
[2019-11-07 10:25] LABS: Beta-Hydroxybutyrate 4.67 mg/dl (0.2-2.81)
[2019-11-07] MEDS ORDERED: LANTUS PER UNIT CHARGE SQ STA (10:43)
--- NOTE | 2019-11-07 10:59 | Pulmonology Progress Note ---
Date of Service November 07, 2019 Assessment & Plan (1) Acute hypoxemic respiratory failure: 34-year-old male with a past medical history of IV drug abuse, hepatitis C, ESRD on dialysis and insulin-dependent diabetes mellitus currently presented to the hospital with hypoxemic respiratory failure and fever. Patient is markedly improved today. Bronchoscopy yesterday with no evidence of significant inflammation within the airways. No evidence of diffuse alveolar hemorrhage seen. Cell counts do not suggest any significant eosinophilia, although, he did receive 1 dose of IV Solu-Medrol the day prior to the bronchoscopy. Differential diagnosis continues to be broad including card iogenic edema, noncardiogenic edema, EVALI, HSP, psittacosis versus other. Continue prednisone for total 7 days including steroids he received in the ICU. Continue doxycycline for 7 days total. I discussed completely abstaining from all forms of E cigarettes, vaping and cigarette smoking. I also discussed the need to avoid all feathers and birds. He does own an apartment and he knows that he can live in his apartment rather than living with his family and has 5 parents. We are still pending autoimmune serologies, psittacosis antibodies and hypersensitivity panel. CCP antibodies were negative. I think the patient will be stable for discharge in the next day or so as long as his glucose remains under control while on prednisone and he is able to be weaned off successfully from the oxygen. I discussed the case with the patient's bedside RN and the patient's hospitalist. Again, he is at risk for going into diabetic ketoacidosis as his blood sugars creeping up. Recommend an extra dose of Lantus and short-acting insulin. (2) Current vaping on some days: (3) Long-term exposure involving bird droppings: (4) Gram-positive cocci bacteremia: (5) Fever: (6) Hyperglycemia: (7) Pulmonary edema: Admission and Anticipated Discharge Date Admission Date: November 03, 2019 Subjective Patient is doing much better today. He is on 5 L of nasal cannula. Able to ambulate around the room with minimal shortness of breath. He denies any coughing, fevers, chills, night sweats or chest pain. Physical Exam Constitutional: WD/WN, vitals as above Eyes: PERRL, conjunctivae normal, anicteric sclerae ENMT: external ear and nose normal, oropharynx normal Neck: trachea midline, no thyromegaly Respiratory: normal respiratory effort, lungs clear to auscultation Cardiovascular: RRR, no murmur, no edema Chest (Breasts): Additional Comments: Permacath in place Gastrointestinal (Abdomen): normal bowel sounds, soft, nontender, no hepatosplenomegaly Musculoskeletal: no cyanosis or clubbing, extremities motor strength 5/5 Skin: no rashes, warm and dry Neurologic: PERRL, EOMI, accommodation nl, no face palsy, no dysarthria Psychiatric: A+Ox3, euthymic affect Results & Data Results & Data ([facility]) Vital Signs (Past 12 Hours) Vital Signs Temp Pulse Resp BP Pulse Ox 11/07/19 07:35 97.5 F L 58 L 18 161/63 H 99 11/06/19 23:22 97.7 F 61 18 146/80 H 98 I personally reviewed the patient's laboratory data, chest imaging and recent notes. PG Care Time/CCT Total # of Minutes Spent Total Time Spent with Patient: Total time spent is greater than 50% in coordination of care (as documented) at patient's floor/unit and/or counseling patient: Coding Level of Care Code 58769 Subseq Hosp Care Lvl 3 Diagnoses Acute hypoxemic respiratory failure J96.01 Current vaping on some days Z72.89 Long-term exposure involving bird droppings Z77.29 Gram-positive cocci bacteremia R78.81 Fever R50.9 Hyperglycemia R73.9 Pulmonary edema J81.1
[2019-11-07] MEDS ORDERED: INSULIN HUMAN REGULAR PER UNIT 5 UNITS in SYRINGE 4.95 ML IV ONE (12:00)
[2019-11-07] MEDS ORDERED: INSULIN REGULAR 250 UNITS in SODIUM CHLORIDE 0.9% 247.5 ML IV SCH (12:30)
--- NOTE | 2019-11-07 14:03 | Pharmacy Report ---
Glycemic Control Progress Note - Date of Service November 07, 2019 - Scope Glycemic Pharmacist consulted for glycemic control to write orders per [facility] inpatient glycemic control protocol. - Objective Accuchecks BSG(last 24 hours):: 11/06/19 11/06/19 11/06/19 16:43 16:44 18:27 Glucose POC Glucose 340 H* 340 H* 295 H 11/06/19 11/07/19 11/07/19 20:50 00:24 02:13 Glucose POC Glucose 310 H* 330 H* 371 H* 11/07/19 11/07/19 11/07/19 04:16 07:56 07:57 Glucose POC Glucose 298 H 343 H* 331 H* 11/07/19 11/07/19 11/07/19 08:24 10:39 11:30 Glucose 369 H* POC Glucose 294 H 313 H* 11/07/19 11/07/19 11/07/19 11:31 12:31 13:40 Glucose POC Glucose 312 H* 251 H 203 H - Recent Pertinent Medications The patient is currently receiving: * Basal insulin: Lantus 17 units every 24 hours * Correctional Insulin: Novolog Correction per scale ACHS Goal Range: Low 110 mg/dL - High 140 mg/dL Correction Factor: 35 mg/dL/unit * Prandial insulin: Per carb ratio of 1 unit per 14 grams CHO consumed - Outpatient Anti-Diabetic Meds Humalog pump - Assessment & Plan ASSESSMENT: * See progress note from 11/03/2019 for more background info, in short: * Pt receiving SQ basal bolus insulin regimen for hyperglycemia secondary to baseline DM (outpatient regimen on hold) and steroids (received Solu-Medrol 40 mg IV x1 yesterday and now prednisone 40 mg PO daily) * Patient is currently receiving an average of 48 units of insulin per day * 17 units of basal insulin * 31 units of prandial/correctional insulin * BSGs ranging 238 - 340 mg/dl over the past 24hrs * Changes needed to insulin regimen: * AM Fasting BSG = 343 mg/dl. This is above goal range for patient based on inpatient targets and co-morbidities. The patient's basal rate is difficult to determine right now. Earlier in his hospitalization, the patient had hypoglycemia because he was not eating. Now, the patient is having severe hyperglycemia due to steroids. He is eating. After discussing with Dr Arnett, it was agreed to start an insulin infusion for a short time today to achieve lower BSGs. Expect that this should end either tonight or overnight (when steroid effects wear off). Gave a slightly higher basal dose today. * Post-prandial BSGs are elevated. Tightened breakfast and lunch. After insulin infusion is done, will go back to previous regimens. Plan to cover steroid hyperglycemia with a dose of NPH. * Total daily dose = ? units. Changing rapidly due to steroids. PLAN FOR INPATIENT GLYCEMIC CONTROL: * Lantus 20 units SQ x 1 the resume Lantus 18 units daily * Continuing correction factor of 35 mg/dl/unit once insulin infusion ends * Continuing carb ratio of 1 unit per 10 grams CHO consumed once insulin infusion ends. * Continuing goal range of Low 110 mg/dL - High 140 mg/dL * Please note that the plan above was derived based on current level of insulin resistance and hospital stress. These recommendations are appropriate for inpatient admission only. Plan of care upon discharge will need to be reassessed to avoid potential outpatient hypo/hyperglycemia. Thank you.
--- NOTE | 2019-11-07 14:32 | Progress Notes ---
DATE: 11/07/2019 SUBJECTIVE: The patient was seen during dialysis. He feels significantly better today. Denies any shortness of breath and he is no longer on oxygen. OBJECTIVE: VITAL SIGNS: Blood pressure 161/63, pulse rate 58, temperature afebrile. He is on room air with normal oxygen saturation. CHEST: Bilaterally clear to auscultation. CARDIOVASCULAR: S1, S2 regular. ABDOMEN: Soft, nontender. EXTREMITIES: Shows no edema. AV fistula has good bruit and thrill and is ready to be used. Catheter worked fine. LABORATORY TESTS: From this morning was reviewed in detail. ASSESSMENT AND PLAN: A 34-year-old male admitted with shortness of breath related with pneumonia/pulmonary edema. Type 1 diabetic with ESRD on hemodialysis, TTS schedule. RECOMMENDATIONS: We will do dialysis for 3 hours 30 minutes and take about 4 kilo off. No major electrolyte problem and his fluid status seems to be significantly better and he has made remarkable improvement in his oxygenation.
--- NOTE | 2019-11-07 16:04 | Hospitalist Progress Note ---
Date of Service November 07, 2019 Assessment & Plan (1) Bacterial pneumonia: multifocal pneumonia, suspected to be bacterial as COVID and other viral tests negative bronchoscopy on 11/05 with no major findings Bronchoalveolar lavage samples were sent for cell count, Gram stain and bacterial culture, AFB culture and smear, fungal culture and smear, PCP PCR, chlamydia PCR and cytology. favorable response to Solu Medrol and antibiotics, quickly titrated from HFNC to 3L NC and now room air, saturating 99% continue Prednisone 40mg reshma x 7 days total (including what he received in hospital) continue Doxycycline x 7 days (including what he received in hospital) follow up results of lavage reports getting fever and dyspnea after cleaning bird cage, parrots also admits to vaping differential remains vaping associated lung injury, eosinophilic/hypersensitivity pneumonitis, psittacosis (2) Acute dyspnea: acute hypoxic respiratory failure initially thought to be volume overload superimposed on pneumonia however, still requiring BIPAP on 11/04 despite 7 liters removed the past 48 hours oxygen requirements vastly improved the past two days, down to room air today, no distress at all continue treatment, see differential above (3) End stage renal disease on dialysis due to type 1 diabetes mellitus: tolerated HD on 11/03 with 3L of UF tolerated HD on 11/04 with 4L of UF tolerated HD today normally on Sat schedule (4) Gram-positive cocci bacteremia: one of two sets with coag negative staph likely contaminant do not feel he has gram positive pneumonia repeat blood cultures with same result thus far, gram positive cocci in only one set no clinical signs of bacteremia MRSA PCR negative on current sample follow up final results, consider PO treatment on discharge (5) Long-term exposure involving bird droppings: lives around 5 parrots, now with new parSena cardona just cleaned the new cage out Saturday, fevers started Saturday treating for possible Psittacosis with Doxycycline recommend that he live away from the birds (6) Hypertension: BP quite elevated at times continue home regimen with Clonidine, Norvasc, Irbesartan (7) Hepatitis C: continue home medications Sofosbuvir and Vepatasvir (8) Gastroparesis: (9) Diabetic retinopathy of both eyes: (10) Diabetes mellitus type I: back on diet, appetite much improved pharmacy is consulted to help with management now with hyperglycemia d/w pharmacist today, will place on insulin drip while on the Prednisone plan to transition to insulin pump on discharge, pharmacy will assist with d/c recommendations (11) Anxiety: Klonopin PRN Ativan PRN (12) Anemia: Hb stable (13) Acute hypoxemic respiratory failure: see above resolved (14) Current vaping on some days: possible vaping associated lung injury Prednisone x 7 days Admission and Anticipated Discharge Date Admission Date: November 03, 2019 Subjective patient breathing really well this morning, no oxygen required, 99% on room air he feels great, no cough he says he is done vaping, says he can live in his own apartment if need be to avoid the parrots reviewed labs, glucose going up despite Lantus 20 and Novolog this AM called pharmacy to discuss, they will put him on insulin drip to determine total insulin requirements while on Prednisone plans to be on steroids for 7 days, so this will help develop plan for discharge insulin pump regimen plan for HD today, talked with nephrology talked with Dr. Cardona about differential for hypoxia, certainly several thi ngs could have caused acute failure he recommends taking Prednisone for 7 days total (including what he got in hospital) and taking Doxycycline for total of 7 days bronchial lavage testing still pending Review of Systems Review of Systems: All systems reviewed & are unremarkable except as noted in HPI & below Constitutional: + fatigue and + weakness; no fever Respiratory: no cough, no dyspnea, no dyspnea on exertion and no wheezing Cardiovascular: no chest pain and no edema Gastrointestinal: no abdominal pain, no nausea, no vomiting, no constipation and no diarrhea/loose stools Physical Exam Constitutional: well developed and well nourished; no acute distress Eyes: PERRL, conjunctivae normal, anicteric sclerae ENMT: external ear and nose normal, oropharynx normal Neck: trachea midline, no thyromegaly Respiratory: normal respiratory effort; no respiratory distress, no labored breathing and no cough Auscultation: + crackles Cardiovascular: Rate/Rhythm: regular rate and regular rhythm Heart Sounds: normal S1 and normal S2; no murmur Vessels: no JVD Extremities: normal capillary refill; no edema Gastrointestinal (Abdomen): normal bowel sounds, soft, nontender, no hepatosplenomegaly Musculoskeletal: no cyanosis or clubbing, extremities motor strength 5/5 Skin: no rashes, warm and dry Neurologic: patellar DTR's 2+ bilat, sensation intact and PERRL, EOMI, accommodation nl, no face palsy, no dysarthria Psychiatric: A+Ox3, euthymic affect Lymphatic: no cervical or axillary lymphadenopathy Results & Data Results & Data ([facility]) Vital Signs (Past 12 Hours) Vital Signs Temp Pulse Pulse Pulse Resp BP BP 11/07/19 15:20 61 131/77 11/07/19 15:00 61 136/80 11/07/19 14:40 62 126/81 11/07/19 14:20 60 139/79 11/07/19 14:00 61 146/81 H 11/07/19 13:40 60 143/85 H 11/07/19 13:24 58 L 149/90 H 11/07/19 13:14 36.5 C 57 L 11/07/19 12:05 11/07/19 12:00 11/07/19 07:35 36.4 C L 58 L 18 161/63 H Pulse Ox 11/07/19 15:20 11/07/19 15:00 11/07/19 14:40 11/07/19 14:20 11/07/19 14:00 11/07/19 13:40 11/07/19 13:24 11/07/19 13:14 11/07/19 12:05 100 11/07/19 12:00 100 11/07/19 07:35 99 Laboratory Results Laboratory Results - last 24 hr 11/06/19 11/06/19 11/06/19 16:43 16:44 18:27 WBC RBC Hgb Hct MCV MCH MCHC RDW Std Deviation RDW Coeff of Rebecca Plt Count MPV Immature Gran % (Auto) Neut % (Auto) Lymph % (Auto) Motley % (Auto) Eos % (Auto) Baso % (Auto) Immature Gran # (Auto) Neut # (Auto) Lymph # (Auto) Motley # (Auto) Eos # (Auto) Baso # (Auto) Sodium Potassium Chloride Carbon Dioxide Anion Gap BUN Creatinine Est Cr Clr Drug Dosing Est GFR ( Amer) Est GFR (Non-Af Amer) BUN/Creatinine Ratio Glucose POC Glucose 340 H* 340 H* 295 H Calcium Beta-Hydroxybutyric Acd 11/06/19 11/07/19 11/07/19 20:50 00:24 02:13 WBC RBC Hgb Hct MCV MCH MCHC RDW Std Deviation RDW Coeff of Rebecca Plt Count MPV Immature Gran % (Auto) Neut % (Auto) Lymph % (Auto) Motley % (Auto) Eos % (Auto) Baso % (Auto) Immature Gran # (Auto) Neut # (Auto) Lymph # (Auto) Motley # (Auto) Eos # (Auto) Baso # (Auto) Sodium Potassium Chloride Carbon Dioxide Anion Gap BUN Creatinine Est Cr Clr Drug Dosing Est GFR ( Amer) Est GFR (Non-Af Amer) BUN/Creatinine Ratio Glucose POC Glucose 310 H* 330 H* 371 H* Calcium Beta-Hydroxybutyric Acd 11/07/19 11/07/19 11/07/19 04:16 07:56 07:57 WBC RBC Hgb Hct MCV MCH MCHC RDW Std Deviation RDW Coeff of Rebecca Plt Count MPV Immature Gran % (Auto) Neut % (Auto) Lymph % (Auto) Motley % (Auto) Eos % (Auto) Baso % (Auto) Immature Gran # (Auto) Neut # (Auto) Lymph # (Auto) Motley # (Auto) Eos # (Auto) Baso # (Auto) Sodium Potassium Chloride Carbon Dioxide Anion Gap BUN Creatinine Est Cr Clr Drug Dosing Est GFR ( Amer) Est GFR (Non-Af Amer) BUN/Creatinine Ratio Glucose POC Glucose 298 H 343 H* 331 H* Calcium Beta-Hydroxybutyric Acd 11/07/19 11/07/19 11/07/19 08:24 08:24 10:39 WBC 10.06 RBC 3.83 L Hgb 12.0 L Hct 36.0 L MCV 94.0 MCH 31.3 MCHC 33.3 RDW Std Deviation 56.7 H RDW Coeff of Rebecca 16.5 H Plt Count 196 MPV 9.4 Immature Gran % (Auto) 0.3 Neut % (Auto) 79.6 Lymph % (Auto) 13.2 Motley % (Auto) 6.9 Eos % (Auto) 0.0 Baso % (Auto) 0.0 Immature Gran # (Auto) 0.03 H Neut # (Auto) 8.01 H Lymph # (Auto) 1.33 Motley # (Auto) 0.69 H Eos # (Auto) 0.00 Baso # (Auto) 0.00 Sodium 129 L Potassium 4.6 Chloride 93 L Carbon Dioxide 25 Anion Gap 12.0 H BUN 79 H D Creatinine 7.84 H* D Est Cr Clr Drug Dosing 13.2 Est GFR ( Amer) 9.3 Est GFR (Non-Af Amer) 8.0 BUN/Creatinine Ratio 10.0 Glucose 369 H* POC Glucose 294 H Calcium 9.5 Beta-Hydroxybutyric Acd 4.67 H 11/07/19 11/07/19 11/07/19 11:30 11:31 12:31 WBC RBC Hgb Hct MCV MCH MCHC RDW Std Deviation RDW Coeff of Rebecca Plt Count MPV Immature Gran % (Auto) Neut % (Auto) Lymph % (Auto) Motley % (Auto) Eos % (Auto) Baso % (Auto) Immature Gran # (Auto) Neut # (Auto) Lymph # (Auto) Motley # (Auto) Eos # (Auto) Baso # (Auto) Sodium Potassium Chloride Carbon Dioxide Anion Gap BUN Creatinine Est Cr Clr Drug Dosing Est GFR ( Amer) Est GFR (Non-Af Amer) BUN/Creatinine Ratio Glucose POC Glucose 313 H* 312 H* 251 H Calcium Beta-Hydroxybutyric Acd 11/07/19 11/07/19 11/07/19 13:40 14:35 15:42 WBC RBC Hgb Hct MCV MCH MCHC RDW Std Deviation RDW Coeff of Rebecca Plt Count MPV Immature Gran % (Auto) Neut % (Auto) Lymph % (Auto) Motley % (Auto) Eos % (Auto) Baso % (Auto) Immature Gran # (Auto) Neut # (Auto) Lymph # (Auto) Motley # (Auto) Eos # (Auto) Baso # (Auto) Sodium Potassium Chloride Carbon Dioxide Anion Gap BUN Creatinine Est Cr Clr Drug Dosing Est GFR ( Amer) Est GFR (Non-Af Amer) BUN/Creatinine Ratio Glucose POC Glucose 203 H 157 H 150 H Calcium Beta-Hydroxybutyric Acd Diagnostic Findings XR chest 2V PA/lateral CLINICAL HISTORY: follow up infiltrates COMPARISON STUDY: 11/05/2019 FINDINGS: The cardiac and mediastinal contours remain stable. There is been marked interval improvement in the bilateral pulmonary airspace opacities. The findings are indicative of resolving pulmonary edema. There is a right-sided central venous catheter. No large pleural effusions are visualized.[ IMPRESSION: Marked improvement in the previously identified pulmonary edema pattern Medications Administered Current Inpatient Medications Acetaminophen (Tylenol) 650 mg PO Q4H PRN PRN Reason: Pain or Fever Stop: 12/03/19 07:32 Amlodipine Besylate (Norvasc) 10 mg PO DAILY AYESHA Stop: 12/03/19 08:59 Last Admin: 11/07/19 08:30 Dose: 10 mg Documented by: Clonazepam (Klonopin) 0.5 mg PO BID AYESHA Stop: 12/03/19 08:59 Last Admin: 11/07/19 08:32 Dose: 0.5 mg Documented by: Clonidine HCl (Krgiwqij-Ape-3 0.2mg/24hr) 1 patch TD Sanches@0900 AYESHA Stop: 12/08/19 08:59 Dextrose (Dextrose 50%) 25 - 50 ml IV UD PRN; Protocol PRN Reason: Hypoglycemia Protocol Stop: 12/03/19 07:32 Last Admin: 11/04/19 22:48 Dose: 25 ml Documented by: Gabapentin (Neurontin) 100 mg PO HS AYESHA Stop: 12/03/19 20:59 Last Admin: 11/06/19 20:17 Dose: 100 mg Documented by: Glucagon (Glucagen) 1 mg SQ UD PRN; Protocol PRN Reason: Hypoglycemia Protocol Stop: 12/03/19 07:32 Glucose (Dex4 Glucose) 4 - 8 tabs PO UD PRN; Protocol PRN Reason: Hypoglycemia Protocol Stop: 12/03/19 07:32 Glucose (Glucose 40%) 15 - 30 gm PO UD PRN; Protocol PRN Reason: Hypoglycemia Protocol Stop: 12/03/19 07:32 Heparin Sodium (Porcine) (Heparin Sodium (Porcine)) 5,000 units SQ Q12 AYESHA Stop: 12/03/19 08:59 Last Admin: 11/07/19 08:28 Dose: 5,000 units Documented by: Doxycycline Hyclate 100 mg/ (Dextrose) 110 mls @ 50 mls/hr IV Q12H AYESHA Stop: 11/12/19 15:59 Last Infusion: 11/07/19 07:28 Dose: Infused Documented by: Ceftriaxone Sodium 1,000 mg/ (Dextrose) 50 mls @ 100 mls/hr IV Q24H AYESHA; Protocol Stop: 11/12/19 14:59 Last Infusion: 11/06/19 15:26 Dose: Infused Documented by: Insulin Human Regular 250 (units/ Sodium Chloride) 250 mls @ 1.6 mls/hr IV .Q24H AYESHA; Protocol Stop: 12/07/19 12:29 Last Titration: 11/07/19 15:54 Dose: 1.6 units/hr, 1.6 mls/hr Documented by: Insulin Aspart (Novolog Flexpen) 0 units SC ACHS [facility] Stop: 12/07/19 16:29 Irbesartan (Avapro) 300 mg PO DAILY AYESHA Stop: 12/03/19 08:59 Last Admin: 11/07/19 08:27 Dose: 300 mg Documented by: Methadone HCl (Dolophine) 90 mg PO DAILY AYESHA Stop: 11/17/19 08:59 Last Admin: 11/07/19 08:27 Dose: 90 mg Documented by: Metoprolol Succinate (Toprol Xl) 75 mg PO BID [facility] Stop: 12/03/19 08:59 Last Admin: 11/07/19 08:31 Dose: 75 mg Documented by: Miscellaneous (Check Clonidine Patch) 1 ea N/A QS [facility] Stop: 12/03/19 07:59 Last Admin: 11/07/19 08:39 Dose: 1 ea Documented by: Miscellaneous (Carbohydrates For Hypoglycemia) 15 - 30 gm PO UD PRN PRN Reason: Hypoglycemia Protocol Stop: 12/03/19 07:32 Last Admin: 11/05/19 07:37 Dose: 15 gm Documented by: Miscellaneous (Order Awaiting Action) 1 ea N/A QS [facility] Stop: 12/03/19 15:59 Last Admin: 11/07/19 07:29 Dose: Not Given Documented by: Miscellaneous (Order Awaiting Action) 1 ea N/A QS [facility] Stop: 12/03/19 15:59 Last Admin: 11/07/19 07:29 Dose: Not Given Documented by: Miscellaneous (Remove Clonidine Patch) 1 ea N/A Sanches@0859 [facility] Stop: 12/08/19 08:58 Miscellaneous (Pending Order) 1 ea N/A Q1H [facility] Stop: 12/07/19 14:59 Miscellaneous Information (Consult Glycemic Management Pharmacy) 1 ea N/A UD [facility] Stop: 12/03/19 10:37 Sofosbuvir & Velpatasvir Patients Own Med 1 ea PO DAILY [facility] Stop: 12/04/19 08:59 Last Admin: 11/07/19 08:29 Dose: 1 tabs Documented by: Ondansetron HCl (Zofran) 4 mg IV Q6H PRN PRN Reason: Nausea Stop: 12/03/19 07:32 Last Admin: 11/04/19 09:01 Dose: 4 mg Documented by: Prednisone (Prednisone) 40 mg PO DAILY AYESHA Stop: 11/12/19 08:59 Last Admin: 11/07/19 08:30 Dose: 40 mg Documented by: Sevelamer HCl (Renagel) 800 mg PO TIDM [facility] Stop: 12/03/19 07:59 Last Admin: 11/07/19 12:02 Dose: 800 mg Documented by: Vitamin B Complex/Folic Acid (Nephrocaps) 1 cap PO DAILY [facility] Stop: 12/03/19 08:59 Last Admin: 11/07/19 09:46 Dose: 1 cap Documented by: PG Care Time/CCT Total # of Minutes Spent Total Time Spent with Patient: Total time spent is greater than 50% in coordination of care (as documented) at patient's floor/unit and/or counseling patient: Coding Level of Care Code 34737 Subseq Hosp Care Lvl 3 Diagnoses Bacterial pneumonia J15.9 Acute dyspnea R06.00 End stage renal disease on dialysis due to type 1 diabetes mellitus E10.22; N18.6; Z99.2 Gram-positive cocci bacteremia R78.81 Long-term exposure involving bird droppings Z77.29 Hypertension I10 Hypertension type: essential hypertension Hepatitis C B19.20 Gastroparesis K31.84 Diabetic retinopathy of both eyes E11.319 Diabetes mellitus type I E10.22; N18.6; Z99.2 Chronic kidney disease stage: on chronic dialysis Diabetes mellitus complication detail: with chronic kidney disease Diabetes mellitus complication status: with kidney complications Anxiety F41.9 Anemia D64.9 Acute hypoxemic respiratory failure J96.01 Current vaping on some days Z72.89 (1) Diabetes mellitus type I Chronic kidney disease stage: on chronic dialysis Diabetes mellitus complication detail: with chronic kidney disease Diabetes mellitus complication status: with kidney complications Qualified Code(s): E10.22 - Type 1 diabetes mellitus with diabetic chronic kidney disease; N18.6 - End stage renal disease; Z99.2 - Dependence on renal dialysis (2) Hypertension Hypertension type: essential hypertension Qualified Code(s): I10 - Essential (primary) hypertension
[2019-11-07] MEDS: cefTRIAXone SODIUM 1,000 MG in DEXTROSE 5% 50 ML IV SCH (17:20)
[2019-11-07] MEDS: GABAPENTIN 100 MG CAP PO SCH (21:02)
[2019-11-08] MEDS: CHECK CLONIDINE PATCH PLACEMENT SCH ×2 (00:12→09:18)
[2019-11-08] MEDS: DOXYCYCLINE HYCLATE 100 MG in DEXTROSE 5% 100 ML IV SCH (04:21)
[2019-11-08 06:45] LABS: Basophils # (auto) 0.01 K/uL (0-0.2); Basophils % (auto) 0.1 %; Eosinophils # (auto) 0.02 K/uL (0-0.5); Eosinophils % (auto) 0.2 %; Hematocrit (blood only) 37.8 % (42-52); Hemoglobin 12.8 g/dL (14.0-18.0); Immature Granulocytes # (auto) 0.03 K/uL (0.00-0.02); Immature Granulocytes % (auto) 0.3 %; Lymphocytes # (auto) 2.97 K/uL (1.2-3.4); Lymphocytes % (auto) 26.3 %; Mean Corpuscular Hemoglobin 31.8 pg (25-34); Mean Corpuscular Hgb Conc 33.9 g/dL (32-36); Mean Corpuscular Volume 93.8 fL (80-100); Mean Platelet Volume 8.6 fL (7.4-10.4); Monocytes # (auto) 1.33 K/uL (0.11-0.59); Monocytes % (auto) 11.8 %; Neutrophils # (auto) 6.93 K/uL (1.4-6.5); Neutrophils % (auto) 61.3 %; Platelet Count 197 K/uL (130-400); RDW Coefficient of Variation 16.4 % (11.5-14.5); RDW Standard Deviation 56.7 fL (36.4-46.3); Red Blood Count 4.03 M/uL (4.7-6.1); White Blood Count 11.29 K/uL (4.8-10.8)
[2019-11-08 07:29] LABS: BUN Creatinine Ratio 8.6 (10-20); Creatinine Clr Calc Pharmacy 17.7 ml/min; Est GFR (African American) 13.8; Est GFR (Non-African American) 11.9; Potassium 3.5 mmol/L (3.5-5.1)
--- NOTE | 2019-11-08 08:35 | Pharmacy Report ---
Glycemic Control Progress Note - Date of Service November 08, 2019 - Scope Glycemic Pharmacist consulted for glycemic control to write orders per [facility] inpatient glycemic control protocol. - Objective Accuchecks BSG(last 24 hours):: 11/07/19 11/07/19 11/07/19 08:24 10:39 11:30 Glucose 369 H* POC Glucose 294 H 313 H* 11/07/19 11/07/19 11/07/19 11:31 12:31 13:40 Glucose POC Glucose 312 H* 251 H 203 H 11/07/19 11/07/19 11/07/19 14:35 15:42 16:48 Glucose POC Glucose 157 H 150 H 145 H 11/07/19 11/07/19 11/07/19 18:21 19:07 19:57 Glucose POC Glucose 190 H 240 H 266 H 11/07/19 11/07/19 11/07/19 21:01 22:19 23:02 Glucose POC Glucose 222 H 203 H 181 H 11/08/19 11/08/19 11/08/19 00:01 01:03 02:02 Glucose POC Glucose 190 H 164 H 142 H 11/08/19 11/08/19 11/08/19 03:18 04:02 04:59 Glucose POC Glucose 118 H 97 101 H 11/08/19 11/08/19 11/08/19 06:07 06:32 07:32 Glucose 90 POC Glucose 82 111 H - Recent Pertinent Medications The patient is currently receiving: * Basal insulin: Lantus 20 units x 1 yesterday * Correctional Insulin: Novolog Correction per scale ACHS Goal Range: Low 120 mg/dL - High 180 mg/dL Correction Factor: -- mg/dL/unit * Prandial insulin: Per carb ratio of 1 unit per --- grams CHO consumed * Insulin infusion which ran above 2 units/hr for much of the evening (started around noon 11/07/2019 and ran until 0600 on 11/08/2019) - Outpatient Anti-Diabetic Meds Humalog pump with rates of 0.85 units/hr all day except 8950-5931 0.75 units/hr (~19.25 units/day) - Assessment & Plan ASSESSMENT: * See progress note from 11/03/2019 for more background info, in short: * Pt receiving SQ basal bolus insulin regimen for hyperglycemia secondary to baseline DM (outpatient regimen on hold), infection (on Rocephin and do xycycline), and steroids (on prednisone 40 mg PO daily). * Patient is currently receiving an average of 57 units of SQ insulin per day + IV infusion of insulin * 20 units of basal insulin * 37 units of prandial/correctional insulin * BSGs ranging 145 - 343 mg/dl over the past 24hrs * Changes needed to insulin regimen: * AM Fasting BSG = 111 mg/dl. This is in goal range for patient based on inpatient targets and co-morbidities. Insulin infusion was held around 0600 (rate was 2.2 units/hr) but blood sugar was lower (around 82 mg/dL). Reasonable to stop now as will give Lantus (18 units or patient's home dose) plus NPH for steroid hyperglycemia (0.4 units/kg or 28 units). Since a higher Lantus dose was given yesterday this should hold on a little longer. * Post-prandial BSGs are not okay after starting insulin infusion. Plan to restart home CF and CR. * Total daily dose = ? units. Will change with changing steroids. PLAN FOR INPATIENT GLYCEMIC CONTROL: * Decreasing Lantus to 18 units SQ qAM + STARTING NPH 28 units in the morning * Continuing correction factor of 35 mg/dl/unit * Continuing carb ratio of 1 unit per 14 grams CHO consumed * Continuing goal range of Low 120 mg/dL - High 160 mg/dL * Please note that the plan above was derived based on current level of insulin resistance and hospital stress. These recommendations are appropriate for inpatient admission only. Plan of care upon discharge will need to be reassessed to avoid potential outpatient hypo/hyperglycemia. Thank you.
[2019-11-08] MEDS ORDERED: INSULIN GLARGINE SOLOSTAR 100 UNITS/ML 3 ML PEN SC SCH (09:00)
[2019-11-08] MEDS: SEVELAMER HCL 800 MG TABLET PO SCH ×2 (09:00→12:33)
[2019-11-08] MEDS ORDERED: INSULIN HUMAN NPH SC SCH (09:00)
[2019-11-08] MEDS: IRBESARTAN 150 MG TAB PO SCH (09:01)
[2019-11-08] MEDS: AMLODIPINE BESYLATE 5 MG TAB PO SCH (09:02)
[2019-11-08] MEDS: NEPHROCAPS PO SCH (09:02)
[2019-11-08] MEDS: predniSONE 20 MG TAB PO SCH (09:02)
[2019-11-08] MEDS: VELPATASVIR PO SCH (09:03)
[2019-11-08] MEDS: SOFOSBUVIR PO SCH (09:03)
[2019-11-08] MEDS: METOPROLOL SUCC 25MG EXT REL TAB PO SCH (09:04)
[2019-11-08] MEDS: HEPARIN SOD 5,000 UNIT/0.5 ML VIAL SQ SCH (09:04)
[2019-11-08] MEDS: INSULIN ASPART 100 UNITS/ML 3 ML PEN SC SCH ×2 (09:06→12:38)
[2019-11-08] MEDS: clonazePAM 0.5 MG TAB PO SCH (09:16)
[2019-11-08] MEDS: METHADONE HCL 10 MG TAB PO SCH (09:16)
--- NOTE | 2019-11-08 10:44 | Pulmonology Progress Note ---
Date of Service November 08, 2019 Assessment & Plan (1) Acute hypoxemic respiratory failure: 34-year-old male with a past medical history of IV drug abuse, hepatitis C, ESRD on dialysis and insulin-dependent diabetes mellitus currently presented to the hospital with hypoxemic respiratory failure and fever. He continues to improve daily and is currently on room air. Bronchoscopy with no evidence of significant inflammation within the airways. No evidence of diffuse alveolar hemorrhage seen. Cell counts do not suggest any significant eosinophilia, although, he did receive 1 dose of IV Solu-Medrol the day prior to the bronchoscopy. Differential diagnosis continues to be broad including cardiogenic edema, noncardiogenic edema, EVALI, HSP, psittacosis versus other. Continue prednisone for total 7 days including steroids he received in the ICU. Continue doxycycline for 7 days total. I discussed completely abstaining from all forms of E cigarettes, vaping and cigarette smoking. I also discussed the need to avoid all feathers and birds. He does own an apartment and he knows that he can live in his apartment rather than living with his family that has 5 parrots. Autoimmune serologies, psittacosis antibodies and hypersensitivity panel pending. CCP antibodies were negative. Patient's blood cultures from 11/06/2019 growing gram-positive cocci. Will defer to hospitalist team for management. Okay to discharge from pulmonary perspective. We will follow-up with him in the clinic in 2 to 3 weeks. (2) Current vaping on some days: (3) Long-term exposure involving bird droppings: (4) Gram-positive cocci bacteremia: (5) Fever: (6) Hyperglycemia: (7) Pulmonary edema: Admission and Anticipated Discharge Date Admission Date: November 03, 2019 Subjective Patient continues to do quite well. He is saturating 97% on room air. Denies any cough, fevers or chills. No night sweats. No chest pain. Underwent dialysis session yesterday with no issues. Review of Systems Constitutional: as per Subjective / HPI Physical Exam Constitutional: WD/WN, vitals as above Eyes: PERRL, conjunctivae normal, anicteric sclerae ENMT: external ear and nose normal, oropharynx normal Neck: trachea midline, no thyromegaly Respiratory: normal respiratory effort, lungs clear to auscultation Cardiovascular: RRR, no murmur, no edema Chest (Breasts): Additional Comments: Permacath in place Gastrointestinal (Abdomen): normal bowel sounds, soft, nontender, no hepatosplenomegaly Musculoskeletal: no cyanosis or clubbing, extremities motor strength 5/5 Skin: no rashes, warm and dry Neurologic: PERRL, EOMI, accommodation nl, no face palsy, no dysarthria Psychiatric: A+Ox3, euthymic affect Results & Data Results & Data ([facility]) Vital Signs (Past 12 Hours) Vital Signs Temp Pulse Resp BP Pulse Ox 11/08/19 06:59 98.1 F 58 L 20 164/86 H 97 11/07/19 23:00 98.1 F 61 18 152/71 H 95 I personally reviewed the patient's laboratory data and chest imaging. PG Care Time/CCT Total # of Minutes Spent Total Time Spent with Patient: Total time spent is greater than 50% in coordination of care (as documented) at patient's floor/unit and/or counseling patient: Coding Level of Care Code 03055 Subseq Hosp Care Lvl 2 Diagnoses Acute hypoxemic respiratory failure J96.01 Current vaping on some days Z72.89 Long-term exposure involving bird droppings Z77.29 Gram-positive cocci bacteremia R78.81 Fever R50.9 Hyperglycemia R73.9 Pulmonary edema J81.1
[2019-11-08] MEDS ORDERED: HEPARIN IV BOLUS 2,000 UNITS in SYRINGE 0 ML IR SCH (13:45)
[2019-11-08] MEDS ORDERED: HEPARIN SODIUM IV ONE (14:00)
--- NOTE | 2019-11-08 16:08 | Discharge Summary ---
Date of Service November 08, 2019 Admission HPI Per Admitting Provider Bernard Jones is a 34 year old man with a past medical history significant for DMI ESRD on hemodialysis TThSa, History of opiate abuse on methadone, Hepatitis C, HTN chronic pain and seizures who presents today with fever chills and shortness of breath. He last felt well on Saturday and yesterday noticed some fevers as high as 101 associated with chills and sweating and slight shortness of breath. This morning at 1 am he awoke and felt like he couldn't breathe. ON presentation to ED he was found to be laboring quite a lot to breathe. His BP has remained elevated throughout. tachycardic to about 110, tachypneic to 32 respirations per minute, febrile at 39.6. Labwork was signficant for hemoglobin of 12.6, Elevated D dimer to >450, hyponatremia to 130, creatinine of 9.2 BUN of 32. Elevated Procalcitonin of 3.15 Patient placed on Bipap which improved his vital signs, given zosyn vancomycin 1 L of NSS and admitted to hospitalist service. ABG checked after patient on bipap showing no respiratory acidosis and adequate oxygenation. Patient is a former tobacco abuser former alcohol abuser and former IV drug abuser currently receiving treatment for hepatitis C. He denies any recent substance or alcohol use history. Patient is full code. Principal Diagnosis Pneumonia Discharge Exam Constitutional WD/WN, vitals as above Respiratory normal respiratory effort, lungs clear to auscultation Cardiovascular Rate/Rhythm: regular rate and regular rhythm Heart Sounds: + murmur Gastrointestinal (Abdomen) Inspection/Auscultation: abdomen normal to inspection and normal bowel sounds; abdomen not distended Percussion/Palpation: abdomen soft; abdomen nontender Musculoskeletal no cyanosis or clubbing, extremities motor strength 5/5 Skin no rashes, warm and dry Neurologic moves all extremities and awake Psychiatric A+Ox3, euthymic affect Discharge Data Allergies Allergy/AdvReac Type Severity Reaction Status Date / Time No Known Drug Allergies Allergy Unknown Verified 11/03/19 03:43 Consultations 11/03/19 04:36 ED Decision to Admit Stat 11/03/19 07:33 Consult Nephrology Routine 11/05/19 14:03 Consult Pulmonology Routine Procedures Performed Operation Date: 11/06/19 10:00 Actual Procedures p Bronchoscopy Radiology - Gordo Cardona MD Ordered Studies 11/05/19 14:40 CT chest wo con Urgent Hospital Course (1) Bacterial pneumonia: multifocal pneumonia, suspected to be bacterial as COVID and other viral tests negative bronchoscopy on 11/05 with no major findings Bronchoalveolar lavage samples were sent for cell count, Gram stain and bacterial culture, AFB culture and smear, fungal culture and smear, PCP PCR, chlamydia PCR and cytology. favorable response to Solu Medrol and antibiotics, quickly titrated from HFNC to 3L NC and now room air, saturating 99% continue Prednisone 40mg reshma x 7 days total (including what he received in hosp [place]) continue Doxycycline x 7 days (including what he received in hospital) follow up results of lavage reports getting fever and dyspnea after cleaning bird cage, parrots also admits to vaping differential remains vaping associated lung injury, eosinophilic/hypersensitivity pneumonitis, psittacosis (2) Acute dyspnea: acute hypoxic respiratory failure initially thought to be volume overload superimposed on pneumonia however, still requiring BIPAP on 11/04 despite 7 liters removed the past 48 hours oxygen requirements vastly improved the past two days, down to room air today, no distress at all continue treatment, see differential above (3) End stage renal disease on dialysis due to type 1 diabetes mellitus: tolerated HD on 11/03 with 3L of UF tolerated HD on 11/04 with 4L of UF tolerated HD today normally on Sat schedule (4) Gram-positive cocci bacteremia: one of two sets with coag negative staph repeat blood cultures with same result thus far, gram positive cocci in only one set no clinical signs of bacteremia MRSA PCR negative on current sample follow up final results Repeated with one culture taken from dialysis cath. Educated patient on warning s/s (5) Long-term exposure involving bird droppings: lives around 5 parrots, now with new parrotSena just cleaned the new cage out Saturday, fevers started Saturday treating for possible Psittacosis with Doxycycline recommend that he live away from the birds (6) Hypertension: BP quite elevated at times continue home regimen with Clonidine, Norvasc, Irbesartan (7) Hepatitis C: continue home medications Sofosbuvir and Vepatasvir (8) Gastroparesis: (9) Diabetic retinopathy of both eyes: (10) Diabetes mellitus type I: back on diet, appetite much improved pharmacy is consulted to help with management Insulin gtt discontinued this morning. Discussed a regimen for home while on steroids with pharmacist (11) Anxiety: Klonopin PRN Ativan PRN (12) Anemia: Hb stable (13) Acute hypoxemic respiratory failure: see above resolved (14) Current vaping on some days: possible vaping associated lung injury Prednisone x 7 days Patient left against medical advice as we felt he should stay for better bsg management and results of repeat blood cultures. He refused as he has appointments the next two days that he is concerned he will not be able to get to otherwise. Did go over home instructions including insulin regimen and warning signs for bacteremia/endocarditis. Patient verbalized instructions. Will follow up with patient when cultures result Total Time Total Time Spent Total Time Spent (In Minutes): greater than 30 minutes Discharge Plan Discharge Items Patient Disposition: Against Medical Advice Reason For Visit: PNEUMONIA SETTING OF CKD ON DIALYSIS Discharge Diagnosis: Pneumonia Condition on Discharge: Fair Activity: Resume your previous activity Non-emergency contact: Primary Care Provider Call non-emergency contact if: you have any medication questions Follow-up/Referrals: Dion Shannon CRNP [Nurse Practitioner] - (please see your primary care provider within a week ) Diet: Carb Count or DM1 Addtl Attending Provider Instructions: (1) Bacterial pneumonia: Your COVID test was negative You had a bronchoscopy on 11/05 with no major findings, further studies from this procedure are still pending. You will need to follow up with Dr. Cardona in his pulmonology clinic in 2-3 weeks You will continue with prednisone 40mg reshma x 3 more days. Please pay very close attention to your blood sugars with at least 4 checks a day while taking the steroids and the day after they are finished as your blood sugar normalizes continue Doxycycline for 3 and a half more days Please continue to refrain from vaping (2) End Stage Renal Disease normally on Sat schedule - continue your normal dialysis schedule (3) Gram-positive cocci bacteremia: You had two separate blood cultures grow a bacteria that may represent skin veronica contamination but it is unclear if it represents a true infection. If you begin to run a fever or feels aches or chills or become acutely short of breath, you should report to primary care provider right away or return to the emergency department to rule out a bacterial infection in your blood or heart. We obtain repeat blood cultures today and will call you if they are positive for bacterial growth (4) Long-term exposure involving bird droppings: You were treating for possible Psittacosis with Doxycycline It is recommended that you live away from the birds (5) Hypertension: Blood pressure quite elevated at times continue home regimen with Clonidine, Norvasc, Irbesartan - discuss with your primary care provider (6) Hepatitis C: continue home medications Sofosbuvir and Vepatasvir (7) Diabetes mellitus type I: Here are your instructions for the next few days while you are taking the steroids: You should turn your insulin pump on now but only for bolus dosing. As we discussed, if you prefer, you can bolus dose with your insulin pen for today and leave your pump off until tomorrow morning when you will resume basal bolus dosing. You should maintain your home carb ratio today of 1:12. For tomorrow and until you finish your steroids, you should change your carb ratio to 1:10 instead of your home 1:12. Please call your wet end operator if you are having sugars greater than 250 so that you do not end up going in to DKA. (8) Anxiety: Klonopin PRN Ativan PRN (9) Anemia: Hb stable (10) Acute hypoxemic respiratory failure: see above resolved (11) Current vaping on some days: possible vaping associated lung injury Prednisone x 7 days total Continue to refrain from vaping Pending Studies at Discharge: Yes Studies:: follow up with Dr. Cardona for pending labwork Stand-Alone Forms: My [facility] stickapps, Smoking Cessation Medications and DC Order Prescriptions: New prednisone 20 mg Tablet 40 mg PO DAILY Qty: 3 RF: 0 doxycycline hyclate 100 mg tablet 100 mg PO BID 3 Days Qty: 7 RF: 0 Continued (DME) OneTouch Ultra Blue Test Strip strip See Rx Instructions .ROUTE .MEDSUPPLY Qty: 100 RF: 3 (DME) blood-glucose meter [OneTouch Ultra2 Meter] misc See Rx Instructions .ROUTE .MEDSUPPLY Qty: 1 RF: 0 (DME) lancets [OneTouch Delica Lancets] 30 gauge misc See Rx Instructions .ROUTE .MEDSUPPLY Qty: 100 RF: 3 (DME) pen needle, diabetic [UltiCare Pen Needle] 31 gauge x 1/4" needle See Rx Instructions .ROUTE .MEDSUPPLY Qty: 100 RF: 3 amlodipine 10 mg tablet 10 mg PO DAILY Qty: 30 RF: 2 irbesartan 300 mg tablet 300 mg PO DAILY Qty: 30 RF: 2 gabapentin 100 mg capsule 100 mg PO HS Qty: 30 RF: 2 clonazepam 0.5 mg tablet 0.5 mg PO BID RF: 0 Velphoro 500 mg Tablet,Chewable 1,000 mg PO TIDM RF: 0 tramadol 50 mg tablet 50 mg PO TID PRN (Reason: Pain) RF: 0 sofosbuvir-velpatasvir [Epclusa] 400-100 mg Tablet 1 tab PO DAILY RF: 0 sevelamer carbonate 800 mg tablet 800 mg PO TID RF: 0 Auryxia 210 mg iron tablet 210 mg PO TIDM RF: 0 (DME) Omnipod Dash 5 Pack Pod Cartridge SUBCUT RF: 0 methadone 10 mg tablet 90 mg PO DAILY RF: 0 bumetanide 1 mg tablet 1 mg PO QAM RF: 0 hydralazine 50 mg tablet 50 mg PO TID RF: 0 Fransisca-Jj 0.8 mg tablet 0.8 mg PO DAILY RF: 0 clonidine 0.2 mg/24 hr Patch Weekly 1 patch transdermal CQWK Qty: 5 RF: 0 Humalog U-100 Insulin 100 unit/mL Cartridge 1 sliding scale dose SUBCUT UD PRN (Reason: Blood sugar) Qty: 15 RF: 0 metoprolol succinate 50 mg tablet extended release 24 hr 75 mg PO BID Qty: 90 RF: 0 Discharge Orders: Left Against Medical Advice (Routine); Ordered 11/08/19 Ordered By: Wilbert Beltran Admission Data Admit Date/Time: 11/03/19 06:10 Attending Provider: Wilbert Beltran Admit Provider: Sampson Grant Primary Care Provider: Ana M Sanders Other Providers: Eusebia Rose ; Gordo Cardona ; Wilbert Beltran Other Interventions: Discharge Summary Assessment (RN) Last Done: 11/08/19 11:31 DC Date/Time DO NOT enter until pt leaves facility: 11/08/19 15:02 Supervising Physician Co-Signing Physician Notes I supervised Sharon Guillard, SOLDERING MACHINE OPERATOR HELPER on this patient's care. I examined the patient today independently of her. I discussed the plan of care with her with the plan being as written in her note except for any following changes/exceptions: None. Mr. Jones unfortunately wanted to be discharged today and was insistent on it as he had to get to a methadone clinic visit tomorrow. He has two separate sets of blood cultures with coag(-) Staph. These are really difficult because one set is aerobic and anaerobic from the same blood and the second 2 days later was only 1/4. So, these could both conceivably both be contaminants; however, with the tunneled-line, I still have great concern this is a true bacteremia. He reports the tunneled line should be coming out in the next 1-2 days. His vascu lar surgeon in [place] will do it if his fistula is ready for use. I did ask him to stay with us in the hospital and explained my concerns. He felt he needed to leave despite the risks that we discussed. He was willing to get two additional sets of blood cultures before goin from the dialysis catheter and 1 from a peripheral stick. I did tell him that he needed to present to his doctor or the hospital if he started to have fevers, chills, sweats, nausea, or any other concerning symptoms. He was in agreement with this. Coding Level of Care Code D/C Day Management >30 mins Diagnoses Bacterial pneumonia J15.9 Acute dyspnea R06.00 End stage renal disease on dialysis due to type 1 diabetes mellitus E10.22; N18.6; Z99.2 Gram-positive cocci bacteremia R78.81 Long-term exposure involving bird droppings Z77.29 Hypertension I10 Hypertension type: essential hypertension Hepatitis C B19.20 Gastroparesis K31.84 Diabetic retinopathy of both eyes E11.319 Diabetes mellitus type I E10.22; N18.6; Z99.2 Chronic kidney disease stage: on chronic dialysis Diabetes mellitus complication detail: with chronic kidney disease Diabetes mellitus complication status: with kidney complications Anxiety F41.9 Anemia D64.9 Acute hypoxemic respiratory failure J96.01 Current vaping on some days Z72.89
[2019-11-09 10:54] LABS: Anti-dsDNA Recombinant 2 IU/mL
[2019-11-12 12:59] LABS: Aspergillus fumigatus NEGATIVE (NEGATIVE)
[2019-11-12 21:29] LABS: Alternaria Alternata IgG 6.4 mcg/mL (<13.6); Anti-Centromere Ab <1.0 NEG AI (<1.0 NEG); Anti-Glom Basement Antibody <1.0 AI (<1.0); Anti-Neutrophil Antibody NONE DETECTED (NONE DETECTED); Anti-SS-A <1.0 NEG AI (<1.0 NEG); Anti-SS-B <1.0 NEG AI (<1.0 NEG); Aureobasidium pullulans IgG 3.1 mcg/mL (<13.6); JO 1 Antibody <1.0 NEG AI (<1.0 NEG); Proteinase-3 Ab <1.0 AI; RNP Antibody <1.0 NEG AI (<1.0 NEG); Rheumatoid Factor 19 IU/mL (<14); Saccharopolyspora rectivir Ab NOT DETECTED (NOT DETECTED); Scleroderma Anti Scl-70 Ab <1.0 NEG AI (<1.0 NEG); Sm Antibody <1.0 NEG AI (<1.0 NEG); Thermoactinomyces candidus Ab NOT DETECTED (NOT DETECTED); Thermoactinomyces sacchari Ab NOT DETECTED (NOT DETECTED)
== END 2019-11-08 15:02 | disposition left against medical advice (07) | DRG 177 ==
LOC: ED 02:28 → 1E 06:10 → SUATTDRO 06:10 → 1E 07:10 → 2W 11-06 15:56

== ENCOUNTER 2022-10-19 20:42 | Observation (INO) ==
[2022-10-19] MEDS ORDERED: ACETAMINOPHEN 1,000 MG/100 ML VIAL IV STA (21:42)
--- NOTE | 2022-10-19 22:10 | Emergency Department Note ---
History of Present Illness General Chief complaint: Arm Pain Stated complaint: PATRICE ARM BROKE IN 2 PLACES,LEG PAIN Time Seen by Provider: 10/19/22 21:24 History of Present Illness Maximum Pain Intensity: 10 37-year-old male presents to the ER complaining of right forearm pain and bilate ral feet pain after he fell down 10 steps. He was seen at [facility] and had advanced imaging. He then came here as he was still having pain. Patient states they gave him morphine which did not help. Patient states they scanned his head C-spine chest and abdomen and pelvis. They did not do any spinal imaging. Patient states he also has a tick bite to his lower abdomen. This occurred 2 weeks ago. He has a low-grade fever. Patient denies chest pain, dyspnea, cough, congestion, abdominal pain, vomiting, diarrhea. I did obtain the records from [facility] and did review the imaging. Home Medications Medication Instructions Recorded Confirmed Type clonazepam 0.5 mg tablet 0.5 mg PO BID 11/03/18 11/30/21 History clonidine 0.2 mg/24 hr weekly 1 patch transdermal CQWK #5 ea 05/22/19 11/30/21 Rx transdermal patch blood sugar diagnostic (OneTouch #100 ea 06/08/19 11/30/21 Rx Ultra Blue Test Strip) blood-glucose meter (OneTouch #1 ea 06/08/19 11/30/21 Rx Ultra2 Meter) duloxetine 20 mg capsule,delayed 20 mg PO DAILY #30 caps 12/26/20 11/30/21 Rx release (Cymbalta) methadone 10 mg tablet 100 mg PO DAILY 01/04/21 11/30/21 History pregabalin 50 mg capsule (Lyrica) 50 mg PO TID #90 caps 03/14/21 11/30/21 Rx bumetanide 1 mg tablet 1 mg PO QAM PRN 11/30/21 11/30/21 History sevelamer carbonate 800 mg tablet 800 mg PO .COMPLEX 11/30/21 11/30/21 History tacrolimus 1 mg capsule,extended 1 mg PO QAM 11/30/21 11/30/21 History release 24 hr Allergies Allergy/AdvReac Type Severity Reaction Status Date / Time No Known Drug Allergies Allergy Unknown Verified 11/30/21 11:19 Past Med/Surg History Medical History Acute hypoxemic respiratory failure Anemia Anxiety Critical illness polyneuropathy Current vaping on some days Diabetes mellitus type I Diabetic retinopathy of both eyes End stage renal disease on dialysis due to type 1 diabetes mellitus Fever Gastroparesis Hepatitis C History of seizure seizure-like activity 02/14/2019 in setting of severe hyperglycemia (patient states he missed dialysis/insulin dose), DKA, confusion- lifeflighted to [place]/intubated/placed on ventilator. DKA managed with insulin drip on admission. EEG with no seizure activity noted. Neurology consulted and initially started patient on prophylactic Keppra but suspected seizure was complication of hyperglycemia and recommended weaning off anticonvulsants/advised no further neurology workup needed. Per patient, medication/dialysis compliance since discharge with glucoses in the range on 100's-200's on self-checks. Hyperglycemia Hypertension Long-term exposure involving bird droppings Nephrotic syndrome Peritonitis currently on intraperitoneal abx Pulmonary edema Substance abuse Withdrawal from opioids Surgical History H/O eye surgery Hx of tonsillectomy Hx of tooth extraction Hx of vitrectomy B/L; right vitrectomy: 05/26/18[place] [facility] [place] Pancreas transplant status Peritoneal dialysis catheter in place Renal transplant recipient Family History Grandfather (Maternal) Diabetes Grandfather (Paternal) Diabetes Grandmother (Paternal) Diabetes Grandmother (Maternal) Diabetes Aunt Diabetes Uncle Diabetes Father Hypertension Brother Hypertension Social History Smoking Status: Former smoker Tobacco Type: Cigarettes Second Hand Exposure: No; Do You Dip or Chew Tobacco: Yes; Hx Alcohol Use: No Hx Substance Use: Yes (vaping) Substance Use Type Other:: CURRENTLY ON METHADONE - HX OPIOID DEPENDENCE (10 YEARS AGO) Preferred Language: Malagasy Communication Ability: Effective Communication Ability Comment: sedated, arouses easily Visual Impairment: Severely Limited Hearing Ability: Normal Crnp Required: No Beliefs That Will Affect Care: None Current Living Situation: Alone Current Living Situation Comment: son with patient current occupational status: employed and unemployed Feels Safe at Home: Yes Childhood Exposure to Second-Hand Smoke: No Diet: regular Diet Comment: diabetic caffeine: Yes during the past year weight has: other Dental Care, Regularly: Yes Physical Activity Frequency: Daily Seatbelt Use: always Sunscreen Use: Yes Assistive Devices: Glasses and Special Shoe Review of Systems A total of 10 systems reviewed and were otherwise negative Physical Exam Vital Signs Vital Signs - 24 hr 10/19/22 20:44 10/19/22 22:45 10/19/22 22:55 Temperature 38 C H Temperature Source Temporal Artery Scan Pulse Rate 91 H 77 Pulse Rate [Finger] Respiratory Rate 20 Respiratory Effort / Characteristics Non-Labored Spontaneous Respiratory Depth Normal Blood Pressure 167/85 H Blood Pressure [Right Calf] Blood Pressure Mean 112 Blood Pressure Mean [Right Calf] Pulse Oximetry 100 98 Oxygen Delivery Method Room Air Room Air Sepsis Recent Fever Within 48 Hours No Sepsis New/Unexplained Change in Mental Status N/A Sepsis Action Taken by Nursing No Action Required 10/20/22 00:08 10/20/22 03:13 Temperature 36.4 C L Temperature Source Oral Pulse Rate Pulse Rate [Finger] 79 89 Respiratory Rate 18 20 Respiratory Effort / Characteristics Respiratory Depth Blood Pressure Blood Pressure [Right Calf] 157/98 H Blood Pressure Mean Blood Pressure Mean [Right Calf] 117 Pulse Oximetry 96 96 Oxygen Delivery Method Room Air Room Air Sepsis Recent Fever Within 48 Hours Sepsis New/Unexplained Change in Mental Status Sepsis Action Taken by Nursing PHYSICAL EXAM: VITALS: Vitals are noted on the nurse's note and reviewed by myself. Vital signs stable. GENERAL: White male, in no acute distress, nondiaphoretic, well-developed well- nourished. SKIN: Hematoma to right forearm with abrasion present, left lower abdomen with healing wound with surrounding erythema, the rest of the skin was without obvious lacerations or abrasions. Capillary reflex less than 2 seconds. HEAD: Normocephalic atraumatic. EARS: External auditory canals clear, tympanic membranes pearly canales without er ythema or effusion bilaterally. No hemotympanums. No adams sign. No mastoid tenderness. EYES: Pupils equal round and reactive to light and accommodation. Conjunctivae without injection, sclerae without icterus. Extraocular movements intact. NOSE: Patent, turbinates without inflammation or discharge. No sinus tenderness. No septal hematoma or bleeding. MOUTH: Mucous membranes moist. Pharynx without erythema or exudate. Uvula midline. Airway patent. Tongue does not deviate. NECK: Supple without nuchal rigidity. Cervical spine is nontender. Full range of motion of the neck without tenderness. No JVD. HEART: Regular rate and rhythm without murmurs gallops or rubs. LUNGS: Clear to auscultation bilaterally without wheezes, rales or rhonchi. No dullness to percussion. No retractions or accessory muscle use. No chest wall tenderness. ABDOMEN: Positive bowel sounds x 4. Normal tympanic percussion. Soft, nontender, without masses or organomegaly. No guarding or rebound tenderness. MUSCULOSKELETAL: No tenderness of the thoracic spine. Lumbar spinal tenderness. No step-offs. No bruising. No tenderness with pelvic rocking. Right wrist tender to palpation easily reproducing symptoms. Bilateral feet tender to palpation with no obvious deformity. Full range of motion without tenderness to palpation in all other extremities. Normal gait. Peripheral pulses 2+. NEURO: Patient was alert and oriented to person place and time. Normal Mini- Mental status exam. No focal neurological deficits. Course Administered Medications Magnesium Sulfate/Dextrose (Magnesium Sulfate / D5w) 1 gm in 100 mls @ 100 mls/hr IV Q1H AYESHA Stop: 10/20/22 05:13 Last Admin: 10/20/22 03:25 Dose: 100 mls/hr Documented By: LULA Discontinued Medications Doxycycline Hyclate (Doxycycline Home Pack 100 Mg) 1 each PO ONE ONE Stop: 10/19/22 23:55 Last Admin: 10/20/22 00:52 Dose: 1 each Documented By: KEISHA Doxycycline Hyclate (Doxycycline Hyclate 100 Mg Cap) 100 mg PO NOW STA Stop: 10/19/22 23:55 Last Admin: 10/20/22 00:52 Dose: 100 mg Documented By: KEISHA Acetaminophen (Ofirmev) 1,000 mg in 100 mls @ 400 mls/hr IV NOW STA Stop: 10/19/22 21:56 Last Infusion: 10/19/22 22:29 Dose: 0 mls/hr Documented By: Admin: 10/19/22 22:08 Dose: 400 mls/hr Documented By: Ceftriaxone Sodium (Rocephin) 2,000 mg in 70 mls @ 140 mls/hr IV NOW STA Stop: 10/20/22 03:46 Last Admin: 10/20/22 03:25 Dose: 140 mls/hr Documented By: LULA Oxycodone HCl (Oxycodone Ir Home Pack) 1 each PO UD ONE Stop: 10/19/22 23:55 Last Admin: 10/20/22 00:52 Dose: 1 each Documented By: KEISHA Medical Decision Making Medical Records Attestation: I reviewed the patient's medical records. Home Medications Current Medication List: was personally reviewed by me Laboratory Data Attestation: I reviewed the patient's lab results. 10/19/22 22:10 10/19/22 22:10 Lab Results 10/19/22 10/19/22 10/19/22 Range/Units 21:45 22:10 22:10 WBC 7.41 (4.8-10.8) K/ul RBC 6.01 (4.70-6.10) M/uL Hgb 14.2 (14.0-18.0) g/dl Hct 46.6 (42.0-52.0) % MCV 77.5 L (80.0-100.0) fL MCH 23.6 L (25.0-34.0) pg MCHC 30.5 L (32.0-36.0) g/dL RDW Std Deviation 58.3 H (36.4-46.3) fL RDW Coeff of Rebecca 21.8 H (11.5-14.5) % Plt Count 144 (130-400) K/uL MPV 8.7 L (9.4-12.4) fL Immature Gran % (Auto) 0.1 % Neut % (Auto) 62.2 % Lymph % (Auto) 13.0 % Collin % (Auto) 22.4 % Eos % (Auto) 2.0 % Baso % (Auto) 0.3 % Neut # (Auto) 4.61 (1.40-6.50) K/uL Lymph # (Auto) 0.96 L (1.2-3.4) K/uL Collin # (Auto) 1.66 H (0.11-0.59) K/uL Eos # (Auto) 0.15 (0-0.50) K/uL Baso # (Auto) 0.02 (0-0.2) K/uL Immature Gran # (Auto) 0.01 (0.01-0.20) K/uL Polychromasia 2+ Anisocytosis Present Tear Drop Cells 1+ Sodium 136 (136-145) mmol/L Potassium 4.5 (3.5-5.1) mmol/L Chloride 108 H (98-107) mmol/L Carbon Dioxide 21 (21-32) mmol/L Anion Gap 7 (3-11) BUN 10 (6-23) mg/dl Creatinine 0.96 (0.6-1.4) mg/dl Est Cr Clr Drug Dosing 117.4 ml/min Est GFR ( Amer) 114.9 ml/min Est GFR (Non-Af Amer) 99.2 ml/min BUN/Creatinine Ratio 10.4 (10-20) Glucose 96 (70-99(Fasting)) mg/dl Lactate (0.4-2.0) mmol/L Calcium 8.7 (8.6-10.3) mg/dl Magnesium 1.3 L (1.7-2.4) mg/dl Total Bilirubin 0.6 (0.2-1.0) mg/dl Direct Bilirubin 0.1 (0-0.2) mg/dl AST 23 (13-39) U/L ALT 13 (7-52) U/L Alkaline Phosphatase 71 (34-104) U/L Troponin I High Sens 20.7 H (0-20) pg/ml Total Protein 6.3 (6.0-8.3) gm/dl Albumin 3.6 (3.4-5.0) gm/dl Procalcitonin (0-0.5) ng/ml Urine Color Urine Appearance (Clear) Urine pH (4.5-7.5) Ur Specific [place] (1.000-1.030) Urine Protein (Negative) Urine Glucose (UA) (Negative) Urine Ketones (Negative) Urine Blood (Negative) Urine Nitrite (Negative) Urine Bilirubin (Negative) Urine Urobilinogen (Negative) Ur Leukocyte Esterase (Negative) Lyme Disease IgG Ab (Negative) Lyme Disease IgM Ab (Negative) SARS-CoV-2 (PCR) NEGATIVE (Negative) Influenza Type A (PCR) Negative (Neg) Influenza Type B (PCR) Negative (Neg) RSV (RT-PCR) Negative (Neg) 10/19/22 10/19/22 10/20/22 Range/Units 22:10 22:27 00:01 WBC (4.8-10.8) K/ul RBC (4.70-6.10) M/uL Hgb (14.0-18.0) g/dl Hct (42.0-52.0) % MCV (80.0-100.0) fL MCH (25.0-34.0) pg MCHC (32.0-36.0) g/dL RDW Std Deviation (36.4-46.3) fL RDW Coeff of Rebecca (11.5-14.5) % Plt Count (130-400) K/uL MPV (9.4-12.4) fL Immature Gran % (Auto) % Neut % (Auto) % Lymph % (Auto) % Collin % (Auto) % Eos % (Auto) % Baso % (Auto) % Neut # (Auto) (1.40-6.50) K/uL Lymph # (Auto) (1.2-3.4) K/uL Collin # (Auto) (0.11-0.59) K/uL Eos # (Auto) (0-0.50) K/uL Baso # (Auto) (0-0.2) K/uL Immature Gran # (Auto) (0.01-0.20) K/uL Polychromasia Anisocytosis Tear Drop Cells Sodium (136-145) mmol/L Potassium (3.5-5.1) mmol/L Chloride (98-107) mmol/L Carbon Dioxide (21-32) mmol/L Anion Gap (3-11) BUN (6-23) mg/dl Creatinine (0.6-1.4) mg/dl Est Cr Clr Drug Dosing ml/min Est GFR ( Amer) ml/min Est GFR (Non-Af Amer) ml/min BUN/Creatinine Ratio (10-20) Glucose (70-99(Fasting)) mg/dl Lactate 1.4 (0.4-2.0) mmol/L Calcium (8.6-10.3) mg/dl Magnesium (1.7-2.4) mg/dl Total Bilirubin (0.2-1.0) mg/dl Direct Bilirubin (0-0.2) mg/dl AST (13-39) U/L ALT (7-52) U/L Alkaline Phosphatase (34-104) U/L Troponin I High Sens (0-20) pg/ml Total Protein (6.0-8.3) gm/dl Albumin (3.4-5.0) gm/dl Procalcitonin 0.09 (0-0.5) ng/ml Urine Color Yellow Urine Appearance Clear (Clear) Urine pH 5.5 (4.5-7.5) Ur Specific [place] 1.010 (1.000-1.030) Urine Protein Negative (Negative) Urine Glucose (UA) Negative (Negative) Urine Ketones Negative (Negative) Urine Blood Negative (Negative) Urine Nitrite Negative (Negative) Urine Bilirubin Negative (Negative) Urine Urobilinogen Negative (Negative) Ur Leukocyte Esterase Negative (Negative) Lyme Disease IgG Ab Negative (Negative) Lyme Disease IgM Ab Negative (Negative) SARS-CoV-2 (PCR) (Negative) Influenza Type A (PCR) (Neg) Influenza Type B (PCR) (Neg) RSV (RT-PCR) (Neg) Imaging Data Attestation: I personally reviewed and interpreted this imaging study as follows: Radiologist's Impression: Lumbar Spine CT 10/19/22 22:00 Exam(s): CT L SPINE EXAM: CT Lumbar Spine Without Intravenous Contrast CLINICAL HISTORY: Reason for exam: fall, pain. TECHNIQUE: Axial computed tomography images of the lumbar spine without intravenous contrast. CTDI is 28.14 mGy and DLP is 768.18 mGy-cm. Automated exposure control was utilized for the study. A dose lowering technique was utilized adhering to the principles of ALARA. COMPARISON: CT abdomen and pelvis 10/09/16 FINDINGS: Vertebrae: Unremarkable. No acute fracture. Discs/spinal canal/neural foramina: No acute findings. No spinal canal stenosis. Soft tissues: Unremarkable. Vasculature: Mild aortoiliac atherosclerosis. No aneurysm. Kidneys and ureters: Severe right-sided hydroureteronephrosis, new when compared to 10/09/16. IMPRESSION: 1. No acute osseous findings. 2. Severe right-sided hydroureteronephrosis, new when compared to 10/09/16. This finding, however, is of unknown chronicity. There is no significant perinephric stranding to suggest acute hydronephrosis. Electronically signed by: Greg Varela M.D. 10/19/22 23:[address] 10/19/22 22:00 Exam(s): CT T SPINE EXAM: CT Thoracic Spine Without Intravenous Contrast CLINICAL HISTORY: Reason for exam: fall, pain. TECHNIQUE: Axial computed tomography images of the thoracic spine without intravenous contrast. CTDI is 32.8 mGy and DLP is 1157.36 mGy-cm. Automated exposure control was utilized for the study. A dose lowering technique was utilized adhering to the principles of ALARA. COMPARISON: No relevant prior studies available. FINDINGS: Vertebrae: Unremarkable. No acute fracture. Discs/spinal canal/neural foramina: No acute findings. No spinal canal stenosis. Soft tissues: Unremarkable. IMPRESSION: Normal thoracic spine CT. Electronically signed by: Greg Varela M.D. 10/19/22 23:46 PM Abdomen/Pelvis CT 10/20/22 01:15 Exam(s): CT ABDOMEN + PELVIS Without Contrast EXAM: CT Abdomen and Pelvis Without Intravenous Contrast CLINICAL HISTORY: Reason for exam: fall. TECHNIQUE: Axial computed tomography images of the abdomen and pelvis without intravenous contrast. CTDI is 20.37 mGy and DLP is 1075.31 mGy-cm. Automated exposure control was utilized for the study. A dose lowering technique was utilized adhering to the principles of ALARA. COMPARISON: CT abdomen and pelvis 10/09/16 FINDINGS: Lung bases are clear. Gallbladder is distended and there are numerous small layering gallstones. There is no evidence of cholecystitis or biliary dilatation. Liver, spleen, and adrenal glands are unremarkable. There is poor visualization of the pancreas, presumably reflecting fatty infiltration. There is atrophy of the [place] kidneys bilaterally. There is no left- sided hydronephrosis. There is severe right-sided hydroureteronephrosis with thinning of the right renal parenchyma, new from prior exam; however, this is chronic in appearance, with absence of perinephric stranding. No obstructing ureteral stone is visible. There is a normal-appearing transplant kidney in the pelvis. Urinary bladder and prostate are unremarkable. Appendix is not visualized. There is no bowel obstruction. Colonic stool retention and small bowel feces sign distally suggests ileus/constipation. There are no acute osseous findings. IMPRESSION: 1. No acute traumatic findings. 2. Atrophic [place] kidneys. 3. Severe right-sided hydroureteronephrosis, new from 10/09/16, but long- standing in appearance. 4. Normal-appearing transplant kidney in the pelvis. 5. Constipation/ileus. Electronically signed by: Greg Varela M.D. 10/20/22 02:08 AM MDM Narrative Prior records/ancillary studies reviewed. Triage Nursing notes reviewed. Additional history obtained from family. The patient's history was concerning for traumatic injury Differential diagnosis: Etiologies such as fracture, dislocation, intra-abdominal, pneumothorax, intrathoracic , intracranial, neurologic, as well as other traumatic pathologies were entertained. Physical examination findings: As above. The patients vitals were stable. ER treatment provided: IV Normal Saline hydration, wound care by nursing Tylenol IV was ordered Rocephin was ordered for abdominal wall cellulitis Splinting Indication: Right wrist fracture Location: Right wrist Type of fx: Closed comminuted Verbal consent obtained. Risks and benefits were explained with the usual customary discussion. The injured extremity was identified. The patient was prepped and measured for the placement of a stirrup/volar ortho-glass splint. Splint applied in the standard fashion over a layer of webril and secured using an elastic bandage. Set into a position of function. Normal neurovascular status after placement verified by me. The patient tolerated the procedure well and the care of the splint was discussed with the patient/family. No complications. DO NOT drive, drink alcohol, operate machinery, or perform dangerous activities today. You were given medications in the ER that can affect your ability to safely function or operate a vehicle. Oxycodone (OxyIR) 5mg: Take 1-2 pills every four hours for breakthrough pain. Avoid alcohol, operating machinery or dangerous equipment, working on ladders or roofs, DRIVING, or situations where being under the influence may be dangerous. It is recommended to use an inix-vuj-ftyjijy stool softener such as Colace, 100mg twice daily while taking this medication to avoid constipation. Acetaminophen(Tylenol) may be used for fever or pain. Use 1000mg every six hours as needed. Avoid using more than 3000mg in a 24 hour period. This medication can be taken if you need to drive, work, or perform activities which may be dangerous when taking narcotic pain medication. Ice compresses for 20 minutes at a time four times daily for 2-3 days. Rest and elevate your injury. Do not get the splint wet. If your splint feels excessively tight, you have worsening pain, develop numbness or tingling, or your digits appear blue, loosen the dimas wrap. Then reapply the dimas wrap gently without removing the splint. If your symptoms are not quickly relieved return to the ER for re-evaluation. Continue current medications. Return to the ER immediately for any numbness, tingling, severe pain, extreme swelling in the extremity or as needed. Call Orthopedics tomorrow to arrange follow up for your injury within 3 to 5 days. An order was placed for continuous cardiac monitoring. The monitor shows a rate of 60-100 with a sinus rhythm per my interpretation. On reassessment the patient felt better. Vital signs were stable. Diagnostic interpretation by me: I did obtain the records from [facility] and did review the CAT scan reports and x-ray findings. Patient had a negative scan of the head C-spine chest abdomen pelvis. Patient's wrist x-ray was concerning for comminuted distal radius and ulnar fractures. Patient was wrapped in an Dimas wrap and a small splint was placed. This was taken off and he was splinted as above for better stability of the fracture. A 12 lead ECG revealed no emergent pathology. Ordered for trauma EKG: Normal sinus, normal vitals, no acute ST-T wave changes. Impression normal sinus rhythm independent abdomen soft I think arrhythmia is unlikely. EKG shows normal sinus rhythm with no interval abnormalities such as QT prolongation or WPW. There are no findings to suggest Brugada syndrome. Cardiac monitoring in the emergency department reveals no tachycardic or bradycardic dysrhythmia. Hypertrophic cardiomyopathy was considered but there are no clear historical elements pointing toward this. EKG is not suggestive. The QRS voltage is not extremely large and there are no suggestive Q waves. The labs Independently Interpreted by myself revealed no worrisome leukocytosis, negative lactic Slightly elevated troponin and repeat was ordered. Low magnesium. Patient was given magnesium Imaging studies: Chest x-ray with no acute consolidation, pneumothorax or free air per my independent interpretation Imaging was reviewed and read by radiology as above Bilateral foot x-rays negative for fracture dislocation or effusion per my independent interpretation Consultation: A consultation was placed with hospitalist. The case was discussed and diagnostics were reviewed. The patient was admitted to the medical service. This appears to be consistent with fall with right wrist fracture his troponin is elevated and magnesium is low. Patient had advanced imaging done at outside facility. These reports were reviewed. He did complain of back pain and feet pain so those were ordered. These were reviewed. EKG is nonischemic. He was resplinted as above as patient splint was pretty much fallen off from the other facility. Medicine was consulted and patient be admitted to the medical service. By the evaluation outlined above emergent etiologies such as dislocation, intra-abdominal, pneumothorax, pulmonary contusion, hemothorax, intracranial, neurologic,as well as others were deemed relatively unlikely. The pt informed about the findings as listed above. All questions were answered and pleased with the treatment. The chart was completed utilizing [employer] Speech voice recognition software. Grammatical errors, random word insertions, pronoun errors, and incomplete sentences are an occassional consequence of this system due to software limitations, ambient noise, and hardware issues. Any formal questions or concerns about the content, text, or information contained within the body of this dictation should be directly addressed to the physician assistant plant manager for clarification. Impression & Plan Closed fracture of right wrist, Fall, Low back pain, Bilateral pain of leg and foot, Cellulitis, Elevated troponin, Hypomagnesemia Discharge Plan Visit Data Chief Complaint: Arm Pain Stated Complaint: RIIGHT ARM BROKE IN 2 PLACES,LEG PAIN ED Provider: Beto Yen ED Midlevel Provider: Bria Hancock Discharge Problem: Closed fracture of right wrist, Fall, Low back pain, Bilateral pain of leg and foot, Cellulitis, Elevated troponin, Hypomagnesemia Patient Disposition: Admitted As Inpatient Condition: Good Discharge Instructions Activity Restrictions/Additional Instructions: Forms Stand Alone Forms: Virtual Emergency Department, Important Visit Information Prescriptions Prescriptions: No Action tacrolimus 1 mg capsule,extended release 24hr 1 mg PO QAM Rx Instructions: must administer in the morning on an empty stomach, 1 hour before or 2 hours after a meal (DME) OneTouch Ultra Blue Test Strip strip See Rx Instructions .ROUTE .MEDSUPPLY Qty: 100 3RF Rx Instructions: Testing three - four times per day. DX: E10.9 (DME) blood-glucose meter [OneTouch Ultra2 Meter] [facility] [place] See Rx Instructions .ROUTE .MEDSUPPLY Qty: 1 0RF Rx Instructions: Testing three to four times per day. DX: E10.9 duloxetine [Cymbalta] 20 mg capsule,delayed release(DR/EC) 20 mg PO DAILY Qty: 30 1RF pregabalin [Lyrica] 50 mg capsule 50 mg PO TID Qty: 90 2RF clonazepam 0.5 mg tablet 0.5 mg PO BID methadone 10 mg tablet 100 mg PO DAILY Rx Instructions: 9.5 tablets total of 95mg bumetanide 1 mg tablet 1 mg PO QAM PRN sevelamer carbonate 800 mg tablet 800 mg PO .COMPLEX Rx Instructions: 800 mg PO M//; clonidine 0.2 mg/24 hr Patch Weekly 1 patch transdermal CQWK Qty: 5 0RF Referrals Referrals: Ryan Leyva MD [Primary Care Provider] - Closed fracture of right wrist Qualifiers: Encounter type: initial encounter Qualified Code(s): S62.101A - Fracture of unspecified carpal bone, right wrist, initial encounter for closed fracture
[2022-10-19 22:36] LABS: Basophils # (auto) 0.02 K/uL (0-0.2); Basophils % (auto) 0.3 %; Eosinophils # (auto) 0.15 K/uL (0-0.50); Hematocrit (blood only) 46.6 % (42.0-52.0); Hemoglobin 14.2 g/dl (14.0-18.0); Immature Granulocytes # (auto) 0.01 K/uL (0.01-0.20); Immature Granulocytes % (auto) 0.1 %; Lymphocytes # (auto) 0.96 K/uL (1.2-3.4); Mean Corpuscular Hemoglobin 23.6 pg (25.0-34.0); Mean Corpuscular Hgb Conc 30.5 g/dL (32.0-36.0); Mean Corpuscular Volume 77.5 fL (80.0-100.0); Mean Platelet Volume 8.7 fL (9.4-12.4); Monocytes # (auto) 1.66 K/uL (0.11-0.59); Monocytes % (auto) 22.4 %; Neutrophils # (auto) 4.61 K/uL (1.40-6.50); Neutrophils % (auto) 62.2 %; Platelet Count 144 K/uL (130-400); RDW Coefficient of Variation 21.8 % (11.5-14.5); RDW Standard Deviation 58.3 fL (36.4-46.3); Red Blood Count 6.01 M/uL (4.70-6.10); White Blood Count 7.41 K/ul (4.8-10.8)
[2022-10-19 22:50] LABS: Influenza A virus by PCR Negative (Neg); Influenza B virus by PCR Negative (Neg); RSV by PCR Negative (Neg); SARS CoV2 RNA(COVID-19) Ceph NEGATIVE (Negative)
[2022-10-19 22:51] LABS: Albumin Level 3.6 gm/dl (3.4-5.0); BUN Creatinine Ratio 10.4 (10-20); Bilirubin Direct 0.1 mg/dl (0-0.2); Bilirubin,Total 0.6 mg/dl (0.2-1.0); Calcium 8.7 mg/dl (8.6-10.3); Creatinine Clr Calc Pharmacy 117.4 ml/min; Est GFR (African American) 114.9 ml/min; Est GFR (Non-African American) 99.2 ml/min; Magnesium 1.3 mg/dl (1.7-2.4); Potassium 4.5 mmol/L (3.5-5.1); Total Protein 6.3 gm/dl (6.0-8.3)
[2022-10-19 22:55] LABS: Troponin I High Sensitivity 20.7 pg/ml (0-20)
[2022-10-19 22:56] LABS: Anisocytosis Present; Polychromasia 2+; Tear Drop Cells 1+
[2022-10-19 23:22] LABS: Procalcitonin 0.09 ng/ml (0-0.5)
[2022-10-19 23:28] LABS: Lyme Ab IgG w/WB Rflx Negative (Negative); Lyme Ab IgM w/WB Rflx Negative (Negative)
--- NOTE | 2022-10-19 23:47 | CT Scan Report ---
Exam(s): CT T SPINE EXAM: CT Thoracic Spine Without Intravenous Contrast CLINICAL HISTORY: Reason for exam: fall, pain. TECHNIQUE: Axial computed tomography images of the thoracic spine without intravenous contrast. CTDI is 32.8 mGy and DLP is 1157.36 mGy-cm. Automated exposure control was utilized for the study. A dose lowering technique was utilized adhering to the principles of ALARA. COMPARISON: No relevant prior studies available. FINDINGS: Vertebrae: Unremarkable. No acute fracture. Discs/spinal canal/neural foramina: No acute findings. No spinal canal stenosis. Soft tissues: Unremarkable. IMPRESSION: Normal thoracic spine CT. Electronically signed by: Greg Varela M.D. 10/19/22 23:46 PM
--- NOTE | 2022-10-19 23:51 | CT Scan Report ---
Exam(s): CT L SPINE EXAM: CT Lumbar Spine Without Intravenous Contrast CLINICAL HISTORY: Reason for exam: fall, pain. TECHNIQUE: Axial computed tomography images of the lumbar spine without intravenous contrast. CTDI is 28.14 mGy and DLP is 768.18 mGy-cm. Automated exposure control was utilized for the study. A dose lowering technique was utilized adhering to the principles of ALARA. COMPARISON: CT abdomen and pelvis 10/09/16 FINDINGS: Vertebrae: Unremarkable. No acute fracture. Discs/spinal canal/neural foramina: No acute findings. No spinal canal stenosis. Soft tissues: Unremarkable. Vasculature: Mild aortoiliac atherosclerosis. No aneurysm. Kidneys and ureters: Severe right-sided hydroureteronephrosis, new when compared to 10/09/16. IMPRESSION: 1. No acute osseous findings. 2. Severe right-sided hydroureteronephrosis, new when compared to 10/09/16. This finding, however, is of unknown chronicity. There is no significant perinephric stranding to suggest acute hydronephrosis. Electronically signed by: Greg Varela M.D. 10/19/22 23:50 PM
[2022-10-19] MEDS ORDERED: oxyCODONE IR HOME PACK PO ONE (23:54)
[2022-10-19] MEDS ORDERED: DOXYCYCLINE HYCLATE 100 MG CAP PO STA (23:54)
[2022-10-19] MEDS ORDERED: DOXYCYCLINE HOME PACK 100 MG PO ONE (23:54)
[2022-10-20 00:22] LABS: Appearance Urine Clear (Clear); Bilirubin Urine Negative (Negative); Blood Urine Negative (Negative); Color Urine Yellow; Glucose Urine UA Negative (Negative); Ketones Urine Negative (Negative); Leukocyte Esterase Urine Negative (Negative); Nitrite Urine Negative (Negative); Protein Urine Negative (Negative); Urobilinogen Urine Negative (Negative); pH Urine 5.5 (4.5-7.5)
--- NOTE | 2022-10-20 02:09 | CT Scan Report ---
Exam(s): CT ABDOMEN + PELVIS Without Contrast EXAM: CT Abdomen and Pelvis Without Intravenous Contrast CLINICAL HISTORY: Reason for exam: fall. TECHNIQUE: Axial computed tomography images of the abdomen and pelvis without intravenous contrast. CTDI is 20.37 mGy and DLP is 1075.31 mGy-cm. Automated exposure control was utilized for the study. A dose lowering technique was utilized adhering to the principles of ALARA. COMPARISON: CT abdomen and pelvis 10/09/16 FINDINGS: Lung bases are clear. Gallbladder is distended and there are numerous small layering gallstones. There is no evidence of cholecystitis or biliary dilatation. Liver, spleen, and adrenal glands are unremarkable. There is poor visualization of the pancreas, presumably reflecting fatty infiltration. There is atrophy of the [place] kidneys bilaterally. There is no left- sided hydronephrosis. There is severe right-sided hydroureteronephrosis with thinning of the right renal parenchyma, new from prior exam; however, this is chronic in appearance, with absence of perinephric stranding. No obstructing ureteral stone is visible. There is a normal-appearing transplant kidney in the pelvis. Urinary bladder and prostate are unremarkable. Appendix is not visualized. There is no bowel obstruction. Colonic stool retention and small bowel feces sign distally suggests ileus/constipation. There are no acute osseous findings. IMPRESSION: 1. No acute traumatic findings. 2. Atrophic [place] kidneys. 3. Severe right-sided hydroureteronephrosis, new from 10/09/16, but long- standing in appearance. 4. Normal-appearing transplant kidney in the pelvis. 5. Constipation/ileus. Electronically signed by: Greg Varela M.D. 10/20/22 02:08 AM
[2022-10-20] MEDS ORDERED: cefTRIAXone SODIUM 2,000 MG/70 ML BAG IV STA (03:17)
[2022-10-20] MEDS: MAGNESIUM SULFATE / D5W 1 GM/100 ML BAG IV SCH ×2 (03:25→05:53)
[2022-10-20] MEDS ORDERED: MAGNESIUM SULFATE / D5W 1 GM/100 ML BAG IV ONE (03:43)
[2022-10-20 04:18] LABS: Troponin I High Sensitivity 16.3 pg/ml (0-20)
[2022-10-20] MEDS ORDERED: KETOROLAC TROMETHAMINE 15 MG/ML VIAL IV ONE (04:18)
[2022-10-20] MEDS ORDERED: CIPROFLOXACIN / D5W 400 MG/200 ML BAG IV STA (04:18)
[2022-10-20] MEDS ORDERED: DOXYCYCLINE HYCLATE 100 MG in DEXTROSE 5% 100 ML IV STA (04:18)
--- NOTE | 2022-10-20 04:29 | History & Physical Report ---
Date of Service October 20, 2022 Assessment & Plan (1) Uncontrolled hypertension: Plan: Secondary to traumatic right radial/ulnar fracture Troponin elevation secondary to above Left abdominal wall cellulitis/wound, no sepsis for now Immunocompromised patient given CellCept and tacrolimus Rx pulmonary hypertension hyperlipidemia, not on statin Rx DM1/ESRD status post pancreas/kidney transplant (2020) on immunosuppression and Bactrim prophylaxis, well-controlled as of recent hemoglobin A1c of 5.3 last year hx PVD HCV status post Rx seizure disorder, stable chronic neuropathy past history IVDU/tobacco abuse OBS Medical telemetry Analgesia Facilitate home BP meds and titrate as needed Orthopedics consult Re: Right radial/ulnar fracture Follow troponin, TTE if with progression Doxycycline and ciprofloxacin, wound care nurse consult for left abdominal cellu litis Update hemoglobin A1c DVT prophylaxis. Teds for now, SCDs contraindicated with history PAD, hold pharmacologic prophylaxis given bleeding wounds from fall Full code Text document was generated using [employer] voice recognition software. It may contain grammatical or spelling errors. Kindly contact undersigned for clarification of any documentation item in question. History of Present Illness Chief Complaint: Uncontrolled left forearm pain, L wrist fracture as per patient Primary Care Provider: Ryan Leyva MD History obtained from patient, family, and records. Medical history significant for HTN, MR, pulmonary hypertension hyperlipidemia, DM1/ESRD status post pancreas/kidney transplant (2020) on immunosuppression and Bactrim prophylaxis, PVD, HCV status post Rx, seizure disorder, chronic pain/ neuropathy, past history IVDU/tobacco abuse. Last [facility] confinement November 2019 for multifocal pneumonia. 2 weeks ago, patient noted a tick on his left abdomen which he pulled out. Wound with surrounding redness. No fever, no chills. Patient was reaching for an object at the stairway of his home yesterday when he miscalculated a step causing him to fall down a flight of stairs. Some head trauma without LOC. Patient denies chest pain, SOB. Patient experienced achy right forearm pain with bleeding abrasions noted. Patient brought to [facility] ER by family yesterday. CT head and C-spine negative for acute processes. CT abdomen pelvis showed gallbladder distention and sludge cholelithiasis. Right [place] kidney hydronephrosis. Renal transplants. Postop changes. Right hand/forearm x-ray showed comminuted mildly displaced fracture right distal radius. Nondisplaced fracture right ulnar styloid. No dislocation. Volar splint applied and patient discharged home with instructions to follow-up with orthopedic doctor of choice outpatient for right radial/ulnar fractures. Intractable right forearm pain at home. IV ceftriaxone administered at the ER for left abdominal cellulitis. Initial BP upon arrival at the ER 160s. Medical History as above Surgical History : Peritoneal dialysis catheter placement, laser trabeculoplasty, pancreatic transplant, kidney transplant, tonsillectomy, dental surgery Family History : DM, heart disease, stroke, lung cancer Personal/Social history : Past tobacco abuse, no EtOH intake, disabled Allergies Allergy/AdvReac Type Severity Reaction Status Date / Time No Known Drug Allergies Allergy Unknown Verified 11/30/21 11:19 Home Medications Medication Instructions Recorded Confirmed Type clonazepam 0.5 mg tablet 0.5 mg PO BID PRN Anxiety 11/03/18 11/30/21 History pregabalin 50 mg capsule (Lyrica) 50 mg PO TID #90 caps 03/14/21 11/30/21 Rx tacrolimus 1 mg capsule,extended 1 mg PO BID 11/30/21 11/30/21 History release 24 hr aspirin 325 mg PO DAILY 10/20/22 10/20/22 History clonidine HCl 0.1 mg tablet 0.1 mg PO BID 10/20/22 10/20/22 History mycophenolate mofetil 250 mg 750 mg PO BID 10/20/22 10/20/22 History capsule rosuvastatin 10 mg tablet 10 mg PO DAILY 10/20/22 10/20/22 History sulfamethoxazole 400 1 tab PO UD 10/20/22 10/20/22 History mg-trimethoprim 80 mg tablet Past Med/Surg History Medical History Acute hypoxemic respiratory failure Anemia Anxiety Critical illness polyneuropathy Current vaping on some days Diabetes mellitus type I Diabetic retinopathy of both eyes End stage renal disease on dialysis due to type 1 diabetes mellitus Fever Gastroparesis Hepatitis C History of seizure seizure-like activity 02/14/2019 in setting of severe hyperglycemia (patient states he missed dialysis/insulin dose), DKA, confusion- lifeflighted to [facility]/intubated/placed on ventilator. DKA managed with insulin drip on admission. EEG with no seizure activity noted. Neurology consulted and initially started patient on prophylactic Keppra but suspected seizure was complication of hyperglycemia and recommended weaning off anticonvulsants/advised no further neurology workup needed. Per patient, medication/dialysis compliance since discharge with glucoses in the range on 100's-200's on self-checks. Hyperglycemia Hypertension Long-term exposure involving bird droppings Nephrotic syndrome Peritonitis currently on intraperitoneal abx Pulmonary edema Substance abuse Withdrawal from opioids Surgical History H/O eye surgery Hx of tonsillectomy Hx of tooth extraction Hx of vitrectomy B/L; right vitrectomy: 05/26/18: LMA#5 at [facility] Pancreas transplant status Peritoneal dialysis catheter in place Renal transplant recipient Family History Grandfather (Maternal) Diabetes Grandfather (Paternal) Diabetes Grandmother (Paternal) Diabetes Grandmother (Maternal) Diabetes Aunt Diabetes Uncle Diabetes Father Hypertension Brother Hypertension Social History Smoking Status: Former smoker Tobacco Type: Cigarettes Second Hand Exposure: No; Do You Dip or Chew Tobacco: Yes; Hx Alcohol Use: No Hx Substance Use: Yes (vaping) Last Used Substance: Days (ago) Substance Use Type Other:: On Methadone Preferred Language: Luxembourgish Communication Ability: Effective Communication Ability Comment: sedated, arouses easily Visual Impairment: Severely Limited Hearing Ability: Normal Engine Lathe Set Up Operator Tool Required: No Beliefs That Will Affect Care: None Current Living Situation: Alone Current Living Situation Comment: son with patient current occupational status: employed and unemployed Feels Safe at Home: Yes Safety Concerns: Feels Safe At This Time Childhood Exposure to Second-Hand Smoke: No Diet: regular Diet Comment: diabetic caffeine: Yes during the past year weight has: other Dental Care, Regularly: Yes Physical Activity Frequency: Daily Seatbelt Use: always Sunscreen Use: Yes Assistive Devices: None Review of Systems Review of Systems: As per HPI, all other systems reviewed and negative Physical Exam Physical Exam: GENERAL: Slightly uncomfortable, looks older than stated age, no respiratory distress SKIN: Normal color, warm HEENT: [place] palpebral conjunctivae, L ptosis (chronic as per patient), dry buccal mucosa NECK : Supple, no tenderness CHEST : Decreased breath sounds, no tenderness HEART : RRR, no obvious murmurs ABDOMEN: Some distention, crusty ulcerated wound with surrounding erythema left abdomen with minimal tenderness EXTREMITIES : No LE swelling/tenderness, dressing over splint right forearm NEUROLOGIC : Coherent, chronic left ptosis, no facial asymmetry, gait and stance not assessed Results & Data Results & Data Vital Signs (Past 12 Hours) Vital Signs Temp Pulse Pulse Resp BP BP Pulse Ox 10/20/22 03:13 36.4 C L 89 20 157/98 H 96 10/20/22 00:08 79 18 96 10/19/22 22:55 77 10/19/22 22:45 98 10/19/22 20:44 38 C H 91 H 20 167/85 H 100 O2 Del Method 10/20/22 03:13 Room Air 10/20/22 00:08 Room Air 10/19/22 22:55 10/19/22 22:45 Room Air 10/19/22 20:44 Room Air Laboratory Results Laboratory Results WBC 7.41 K/ul (4.8-10.8) 10/19/22 22:10 RBC 6.01 M/uL (4.70-6.10) 10/19/22 22:10 Hgb 14.2 g/dl (14.0-18.0) 10/19/22 22:10 Hct 46.6 % (42.0-52.0) 10/19/22 22:10 MCV 77.5 fL (80.0-100.0) L 10/19/22 22:10 MCH 23.6 pg (25.0-34.0) L 10/19/22 22:10 MCHC 30.5 g/dL (32.0-36.0) L 10/19/22 22:10 RDW Std Deviation 58.3 fL (36.4-46.3) H 10/19/22 22:10 RDW Coeff of Rebecca 21.8 % (11.5-14.5) H 10/19/22 22:10 Plt Count 144 K/uL (130-400) 10/19/22 22:10 MPV 8.7 fL (9.4-12.4) L 10/19/22 22:10 Immature Gran % (Auto) 0.1 % 10/19/22 22:10 Neut % (Auto) 62.2 % 10/19/22 22:10 Lymph % (Auto) 13.0 % 10/19/22 22:10 Garvin % (Auto) 22.4 % 10/19/22 22:10 Eos % (Auto) 2.0 % 10/19/22 22:10 Baso % (Auto) 0.3 % 10/19/22 22:10 Neut # (Auto) 4.61 K/uL (1.40-6.50) 10/19/22 22:10 Lymph # (Auto) 0.96 K/uL (1.2-3.4) L 10/19/22 22:10 Garvin # (Auto) 1.66 K/uL (0.11-0.59) H 10/19/22 22:10 Eos # (Auto) 0.15 K/uL (0-0.50) 10/19/22 22:10 Baso # (Auto) 0.02 K/uL (0-0.2) 10/19/22 22:10 Immature Gran # (Auto) 0.01 K/uL (0.01-0.20) 10/19/22 22:10 Polychromasia 2+ 10/19/22 22:10 Anisocytosis Present 10/19/22 22:10 Tear Drop Cells 1+ 10/19/22 22:10 Sodium 136 mmol/L (136-145) 10/19/22 22:10 Potassium 4.5 mmol/L (3.5-5.1) 10/19/22 22:10 Chloride 108 mmol/L (98-107) H 10/19/22 22:10 Carbon Dioxide 21 mmol/L (21-32) 10/19/22 22:10 Anion Gap 7 (3-11) 10/19/22 22:10 BUN 10 mg/dl (6-23) 10/19/22 22:10 Creatinine 0.96 mg/dl (0.6-1.4) 10/19/22 22:10 Est Cr Clr Drug Dosing 117.4 ml/min 10/19/22 22:10 Est GFR ( Amer) 114.9 ml/min 10/19/22 22:10 Est GFR (Non-Af Amer) 99.2 ml/min 10/19/22 22:10 BUN/Creatinine Ratio 10.4 (10-20) 10/19/22 22:10 Glucose 96 mg/dl (70-99(Fasting)) 10/19/22 22:10 Lactate 1.4 mmol/L (0.4-2.0) 10/19/22 22:27 Calcium 8.7 mg/dl (8.6-10.3) 10/19/22 22:10 Magnesium 1.3 mg/dl (1.7-2.4) L 10/19/22 22:10 Total Bilirubin 0.6 mg/dl (0.2-1.0) 10/19/22 22:10 Direct Bilirubin 0.1 mg/dl (0-0.2) 10/19/22 22:10 AST 23 U/L (13-39) 10/19/22 22:10 ALT 13 U/L (7-52) 10/19/22 22:10 Alkaline Phosphatase 71 U/L (34-104) 10/19/22 22:10 Troponin I High Sens 16.3 pg/ml (0-20) D 10/20/22 03:11 Total Protein 6.3 gm/dl (6.0-8.3) 10/19/22 22:10 Albumin 3.6 gm/dl (3.4-5.0) 10/19/22 22:10 Procalcitonin 0.09 ng/ml (0-0.5) 10/19/22 22:10 Urine Color Yellow 10/20/22 00:01 Urine Appearance Clear (Clear) 10/20/22 00:01 Urine pH 5.5 (4.5-7.5) 10/20/22 00:01 Ur Specific Henriette 1.010 (1.000-1.030) 10/20/22 00:01 Urine Protein Negative (Negative) 10/20/22 00:01 Urine Glucose (UA) Negative (Negative) 10/20/22 00:01 Urine Ketones Negative (Negative) 10/20/22 00:01 Urine Blood Negative (Negative) 10/20/22 00:01 Urine Nitrite Negative (Negative) 10/20/22 00:01 Urine Bilirubin Negative (Negative) 10/20/22 00:01 Urine Urobilinogen Negative (Negative) 10/20/22 00:01 Ur Leukocyte Esterase Negative (Negative) 10/20/22 00:01 Lyme Disease IgG Ab Negative (Negative) 10/19/22 22:10 Lyme Disease IgM Ab Negative (Negative) 10/19/22 22:10 SARS-CoV-2 (PCR) NEGATIVE (Negative) 10/19/22 21:45 Influenza Type A (PCR) Negative (Neg) 10/19/22 21:45 Influenza Type B (PCR) Negative (Neg) 10/19/22 21:45 RSV (RT-PCR) Negative (Neg) 10/19/22 21:[address] 10/19/22 22:00 Exam(s): CT L SPINE EXAM: CT Lumbar Spine Without Intravenous Contrast CLINICAL HISTORY: Reason for exam: fall, pain. TECHNIQUE: Axial computed tomography images of the lumbar spine without intravenous contrast. CTDI is 28.14 mGy and DLP is 768.18 mGy-cm. Automated exposure control was utilized for the study. A dose lowering technique was utilized adhering to the principles of ALARA. COMPARISON: CT abdomen and pelvis 10/09/16 FINDINGS: Vertebrae: Unremarkable. No acute fracture. Discs/spinal canal/neural foramina: No acute findings. No spinal canal stenosis. Soft tissues: Unremarkable. Vasculature: Mild aortoiliac atherosclerosis. No aneurysm. Kidneys and ureters: Severe right-sided hydroureteronephrosis, new when compared to 10/09/16. IMPRESSION: 1. No acute osseous findings. 2. Severe right-sided hydroureteronephrosis, new when compared to 10/09/16. This finding, however, is of unknown chronicity. There is no significant perinephric stranding to suggest acute hydronephrosis. Electronically signed by: Greg Varela M.D. 10/19/22 23:[address] 10/19/22 22:00 Exam(s): CT T SPINE EXAM: CT Thoracic Spine Without Intravenous Contrast CLINICAL HISTORY: Reason for exam: fall, pain. TECHNIQUE: Axial computed tomography images of the thoracic spine without intravenous contrast. CTDI is 32.8 mGy and DLP is 1157.36 mGy-cm. Automated exposure control was utilized for the study. A dose lowering technique was utilized adhering to the principles of ALARA. COMPARISON: No relevant prior studies available. FINDINGS: Vertebrae: Unremarkable. No acute fracture. Discs/spinal canal/neural foramina: No acute findings. No spinal canal stenosis. Soft tissues: Unremarkable. IMPRESSION: Normal thoracic spine CT. Electronically signed by: Greg Varela M.D. 10/19/22 23:46 PM Abdomen/Pelvis CT 10/20/22 01:15 Exam(s): CT ABDOMEN + PELVIS Without Contrast EXAM: CT Abdomen and Pelvis Without Intravenous Contrast CLINICAL HISTORY: Reason for exam: fall. TECHNIQUE: Axial computed tomography images of the abdomen and pelvis without intravenous contrast. CTDI is 20.37 mGy and DLP is 1075.31 mGy-cm. Automated exposure control was utilized for the study. A dose lowering technique was utilized adhering to the principles of ALARA. COMPARISON: CT abdomen and pelvis 10/09/16 FINDINGS: Lung bases are clear. Gallbladder is distended and there are numerous small layering gallstones. There is no evidence of cholecystitis or biliary dilatation. Liver, spleen, and adrenal glands are unremarkable. There is poor visualization of the pancreas, presumably reflecting fatty infiltration. There is atrophy of the [place] kidneys bilaterally. There is no left- sided hydronephrosis. There is severe right-sided hydroureteronephrosis with thinning of the right renal parenchyma, new from prior exam; however, this is chronic in appearance, with absence of perinephric stranding. No obstructing ureteral stone is visible. There is a normal-appearing transplant kidney in the pelvis. Urinary bladder and prostate are unremarkable. Appendix is not visualized. There is no bowel obstruction. Colonic stool retention and small bowel feces sign distally suggests ileus/constipation. There are no acute osseous findings. IMPRESSION: 1. No acute traumatic findings. 2. Atrophic [place] kidneys. 3. Severe right-sided hydroureteronephrosis, new from 10/09/16, but long- standing in appearance. 4. Normal-appearing transplant kidney in the pelvis. 5. Constipation/ileus. Electronically signed by: Greg Varela M.D. 10/20/22 02:08 AM Diagnostic Findings EKG as per my interpretation : Rate 80, NSR, LAD, LAFB, no ischemia, low voltage
[2022-10-20] MEDS ORDERED: oxyCODONE HCL IR 5 MG TAB (IMMEDIATE RELEASE) PO PRN ×2 (04:35→06:33)
[2022-10-20] MEDS ORDERED: SODIUM CHLORIDE 0.9% 1000ML 1,000 ML IV ONE (04:35)
[2022-10-20] MEDS ORDERED: PROMETHAZINE HCL 6.25 MG in SODIUM CHLORIDE 0.9% 50 ML IV PRN (04:35)
[2022-10-20] MEDS ORDERED: LORazepam 0.5 MG TAB PO PRN ×2 (04:35→06:33)
[2022-10-20] MEDS ORDERED: HYDROmorphone INJ 0.5 MG/0.5 ML SYR IV PRN ×2 (04:35→06:33)
[2022-10-20] MEDS ORDERED: GLUCOSE 10 TAB/TUBE PO PRN (05:51)
[2022-10-20] MEDS ORDERED: GLUCOSE 40% GEL 15 GM TUBE PO PRN (05:51)
[2022-10-20] MEDS ORDERED: GLUCAGON FOR INJ 1 MG VIAL SQ PRN (05:51)
[2022-10-20] MEDS ORDERED: CARBOHYDRATES FOR HYPOGLYCEMIA PO PRN (05:51)
[2022-10-20] MEDS ORDERED: ACETAMINOPHEN 325 MG TAB PO PRN (05:51)
[2022-10-20] MEDS ORDERED: DEXTROSE 50% 50 ML SYRINGE IV PRN (05:51)
[2022-10-20] MEDS ORDERED: cloNIDine HCL 0.1 MG TAB PO ONE (06:25)
[2022-10-20] MEDS ORDERED: hydrALAZINE HCL 20 MG/ML VIAL IV ONE (06:43)
[2022-10-20] MEDS ORDERED: clonazePAM 0.5 MG TAB PO PRN (07:39)
[2022-10-20 08:14] LABS: Estimated Average Glucose 105 mg/dl; Hemoglobin A1C 5.3 % (4.5-5.6)
[2022-10-20] MEDS: MYCOPHENOLATE MOFETIL 250 MG CAP PO SCH ×2 (08:22→21:13)
[2022-10-20] MEDS: ROSUVASTATIN CALCIUM 10 MG TAB PO SCH (08:23)
[2022-10-20] MEDS: ASPIRIN 325 MG ECTAB PO SCH (08:23)
[2022-10-20] MEDS: TACROLIMUS 1 MG CAP PO SCH ×2 (08:23→21:13)
[2022-10-20] MEDS: INSULIN ASPART PER UNIT CHARGE SC SCH ×4 (08:30→21:22)
[2022-10-20] MEDS: PREGABALIN 50 MG CAP PO SCH ×3 (08:34→21:14)
--- NOTE | 2022-10-20 08:56 | XRay Report ---
XR foot RT min 3V routine CLINICAL HISTORY: fall, pain TECHNIQUE: 3 views of the bilateral feet were obtained. Comparison: None available at the time of this dictation. FINDINGS: No fractures are present. Degenerative changes are seen with particular erosions most prominent in th e left first digit interphalangeal joint. Vascular calcifications are noted. IMPRESSION: Degenerative changes without evidence of acute fracture. ACT 112: Negative or not required by law. Electronically signed by: Greg Barrera M.D. 10/20/2022 8:54 AM
--- NOTE | 2022-10-20 09:01 | XRay Report ---
XR chest 1V portable CLINICAL HISTORY: Sepsis TECHNIQUE: Single frontal radiograph of the chest was obtained. Comparison: Comparison is made to chest radiograph 11/07/2019 FINDINGS: No lines and tubes are seen. The cardiomediastinal silhouette is normal. Prominence and cephalization of the vasculature is seen. No evidence of pleural effusion or pneumothorax. IMPRESSION: Mild pulmonary edema. No pneumonia is seen. ACT 112: Negative or not required by law. Electronically signed by: Greg Barrera M.D. 10/20/2022 9:00 AM
--- NOTE | 2022-10-20 09:03 | XRay Report ---
XR foot LT min 3V routine CLINICAL HISTORY: fall, pain TECHNIQUE: 3 views of the left foot were obtained. Comparison: None available at the time of this dictation. FINDINGS: No fractures are present. Minimal degenerative changes are seen. Vascular calcifications are noted. IMPRESSION: No evidence of acute bony injury. ACT 112: Negative or not required by law. Electronically signed by: Greg Barrera M.D. 10/20/2022 9:02 AM
--- NOTE | 2022-10-20 09:28 | Communication Note ---
Date of Service: October 20, 2022 Patient seen and examined Reports right wrist pain is controlled Denied headache, nausea, vomiting Right forearm and wrist bandaged Discussed with Ortho. Recommends getting wrist XR here for better assessment Optimize BP control Pharm confirmed that patient gets methadone at [facility] in [place] and is on methadone 100mg daily This was ordered Other plans as detailed in H&P this morning
--- NOTE | 2022-10-20 12:00 | XRay Report ---
XR wrist RT min 3V routine CLINICAL HISTORY: Fall. Distal radioulnar fracture TECHNIQUE: 4 views of the right wrist were obtained. Comparison: None available at the time of this dictation. FINDINGS: Evaluation is limited by overlying splint. There is a minimally displaced fracture of the distal radi al metaphysis. Intra-articular extension is seen. Soft tissue swelling is seen about the wrist. IMPRESSION: Intra-articular distal radial fracture is partially visualized. ACT 112: Negative or not required by law. Electronically signed by: Greg Barrera M.D. 10/20/2022 11:57 AM
[2022-10-20] MEDS: METHADONE ORAL SOLN 2 MG/ML PO SCH (12:10)
--- NOTE | 2022-10-20 12:57 | Consultation Report ---
DATE OF SERVICE: 10/20/2022. REFERRING PHYSICIAN: Ariana Pugh MD PERTINENT HISTORY: This is a right-hand dominant 37-year-old gentleman who was in his normal state o f health at his home. He missed a step on landing and fell on his outstretched right upper extremity causing immediate pain, swelling and limitation in range of motion. He was seen at [facility] where he was evaluated. He had x-rays, noted to have a fracture of the radius and ulna, place d in a splint and he was discharged home. The patient continued to have severe pain in the wrist, in tractable pain, which then led him to have a private car transport to [facility] ere he was evaluated by the staff, placed into a new splint. Radiographs were reviewed and he was ad mitted to the hospitalist service for treatment of his intractable pain and other multiple medical co morbidities. The patient was admitted to the hospitalist service. PAST MEDICAL HISTORY: Acute hypoxemic respiratory failure, anemia, anxiety, critical illness, polyne uropathy, diabetes mellitus type 1, diabetic retinopathy, both eyes; end-stage renal disease on dialy sis, multiple fevers, gastroparesis, hepatitis C, history of seizure, hyperglycemia, hypertension, lo ng-term exposure involving bird droppings, nephrotic syndrome, peritonitis, pulmonary edema, history of IVDA, history of withdrawal. PAST SURGICAL HISTORY: Bilateral eye surgery, T and A, tooth extractions, history of bilateral vitre ctomy, pancreas transplant, peritoneal dialysis catheter, renal transplant recipient. ALLERGIES: No known drug allergies. MEDICATIONS: Clonazepam, pregabalin, tacrolimus, aspirin, clonidine, mycophenolate mofetil, rosuvast atin, sulfamethoxazole, trimethoprim sulfate. SOCIAL HISTORY: Former smoker of cigarettes. He does use smokeless tobacco. History of alcohol use . He does vape. Currently on methadone treatment. He is unemployed and on disability. Lives with his son. PHYSICAL EXAMINATION: This is a 37-year-old gentleman sitting in his bedside. He is alert and orien rohan x3. Speech clear and fluent. Affect is appropriate. He has a well-padded splint on his right u pper extremity. Examination of the right upper extremity demonstrates skin, which is warm, dry and i ntact. Cap refill less than 2 seconds. Radial pulse 2/4 with palpation through the splint material. Cap refill is brisk. Sensation is limited due to chronic polyneuropathy, bilateral hands and feet. Limitation in range of motion and strength due to the well-padded splint, which was put in place in right upper extremity. Radiographs reviewed were obtained today noting an intra-articular minimally displaced right distal r adius fracture with some dorsal comminution. Well aligned with an ulnar styloid fracture, which was also minimally displaced. IMPRESSION: 1. Right minimally displaced intraarticular distal radius fracture. 2. Ulnar styloid fracture with minimal displacement, status post fall. 3. Multiple medical comorbidities. 4. ICD-10 code, S52.501A. 5. E/M code 76542. 6. CPT code 36055. RECOMMENDATION: This will be treated nonoperatively initially in his splint. Continue to ice and el evate in well-padded splint. Keep it clean and dry. Kory-jry-hchztuv pain relievers as approved by pa s primary physician and his brine tank operator and transplant surgeon. Follow up with Dr. Cardona at [facility], , for reassessment within the next 10 to 14 days, for removal of splint and then transition to a short-arm cast. The patient states that he will be traveling to the beach at some point soon, so he may be unable to get to the clinic. Therefore, he should return to t he clinic after he returns from his beach vacation for casting and further management. Sling for com fort right upper extremity. Thank you for the opportunity to consult in the care of this patient. Job ID: [id number]
[2022-10-20] MEDS: PATIENT'S OWN CONTROLLED MED 1 SCH (12:59)
[2022-10-20] MEDS: cloNIDine HCL 0.1 MG TAB PO SCH ×2 (13:32→19:52)
[2022-10-20] MEDS: ACETAMINOPHEN 325 MG TAB PO SCH ×2 (17:54→21:21)
[2022-10-20] MEDS: oxyCODONE HCL IR 5 MG TAB (IMMEDIATE RELEASE) PO PRN (17:54)
[2022-10-20] MEDS ORDERED: lisinopril 5 MG TAB PO SCH (19:35)
--- NOTE | 2022-10-20 19:36 | Communication Note ---
Date of Service: October 20, 2022 Made aware by RN of uncontrolled blood pressure. SBP 160-220s the last 24 hours. AP Hypertensive urgency [facility] transplant spray gun repairer helper director of food and nutrition services (Dr. Landis) contacted for recommendations. He recommends adding Coreg 6.25 mg PO BID to Clonidine. Consider adding nifedipine if BP still uncontrolled as per spray gun repairer helper. Will relay to AM provider.
[2022-10-20] MEDS: hydrALAZINE HCL 20 MG/ML VIAL IV PRN (19:56)
[2022-10-20] MEDS ORDERED: cloNIDine HCL 0.1 MG TAB PO SCH (21:00)
[2022-10-20] MEDS ORDERED: CIPROFLOXACIN 500 MG TAB PO SCH (21:00)
[2022-10-20] MEDS: DOXYCYCLINE HYCLATE 100 MG CAP PO SCH (21:13)
[2022-10-20] MEDS ORDERED: carvediloL 3.125 MG TAB PO SCH (22:00)
[2022-10-21] MEDS ORDERED: carvediloL 3.125 MG TAB PO STA (01:33)
[2022-10-21] MEDS: oxyCODONE HCL IR 5 MG TAB (IMMEDIATE RELEASE) PO PRN (06:41)
[2022-10-21 07:13] LABS: Basophils # (auto) 0.03 K/uL (0-0.2); Basophils % (auto) 0.5 %; Eosinophils # (auto) 0.22 K/uL (0-0.50); Eosinophils % (auto) 3.5 %; Hematocrit (blood only) 49.2 % (42.0-52.0); Hemoglobin 14.6 g/dl (14.0-18.0); Immature Granulocytes # (auto) 0.02 K/uL (0.01-0.20); Immature Granulocytes % (auto) 0.3 %; Lymphocytes # (auto) 1.14 K/uL (1.2-3.4); Mean Corpuscular Hemoglobin 23.4 pg (25.0-34.0); Mean Corpuscular Hgb Conc 29.7 g/dL (32.0-36.0); Mean Platelet Volume 9.1 fL (9.4-12.4); Monocytes # (auto) 1.33 K/uL (0.11-0.59); Neutrophils # (auto) 3.59 K/uL (1.40-6.50); Neutrophils % (auto) 56.7 %; Platelet Count 149 K/uL (130-400); RDW Coefficient of Variation 22.6 % (11.5-14.5); Red Blood Count 6.23 M/uL (4.70-6.10); White Blood Count 6.33 K/ul (4.8-10.8)
[2022-10-21 07:23] LABS: BUN Creatinine Ratio 18.1 (10-20); Calcium 9.1 mg/dl (8.6-10.3); Creatinine Clr Calc Pharmacy 107.5 ml/min; Est GFR (African American) 103.1 ml/min; Magnesium 1.6 mg/dl (1.7-2.4); Potassium 4.4 mmol/L (3.5-5.1)
[2022-10-21 08:02] LABS: Hypochromasia Present; Polychromasia 1+; Tear Drop Cells 1+
[2022-10-21] MEDS: METHADONE ORAL SOLN 2 MG/ML PO SCH (08:11)
[2022-10-21] MEDS: PREGABALIN 50 MG CAP PO SCH (08:11)
[2022-10-21] MEDS: ACETAMINOPHEN 325 MG TAB PO SCH (08:11)
[2022-10-21] MEDS: MYCOPHENOLATE MOFETIL 250 MG CAP PO SCH (08:16)
[2022-10-21] MEDS: DOXYCYCLINE HYCLATE 100 MG CAP PO SCH (08:16)
[2022-10-21] MEDS: TACROLIMUS 1 MG CAP PO SCH (08:16)
[2022-10-21] MEDS: ASPIRIN 325 MG ECTAB PO SCH (08:16)
[2022-10-21] MEDS: hydrALAZINE HCL 20 MG/ML VIAL IV PRN (08:18)
[2022-10-21] MEDS: INSULIN ASPART PER UNIT CHARGE SC SCH ×2 (08:21→12:58)
[2022-10-21] MEDS: ROSUVASTATIN CALCIUM 10 MG TAB PO SCH (08:25)
[2022-10-21] MEDS: cloNIDine HCL 0.1 MG TAB PO SCH (08:25)
[2022-10-21] MEDS: PATIENT'S OWN CONTROLLED MED 1 SCH (08:26)
[2022-10-21] MEDS: MAGNESIUM SULFATE / D5W 1 GM/100 ML BAG IV SCH ×2 (08:51→11:03)
[2022-10-21] MEDS ORDERED: carvediloL 6.25 MG TAB PO SCH ×2 (09:00→21:00)
[2022-10-21] MEDS ORDERED: NIFEdipine 10 MG CAP PO SCH (09:00)
[2022-10-21] MEDS ORDERED: amLODIPine BESYLATE 5 MG TAB PO SCH (09:00)
--- NOTE | 2022-10-21 12:22 | Discharge Summary ---
Date of Service October 21, 2022 Admission HPI Per Admitting Provider History obtained from patient, family, and records. Medical history significant for HTN, MR, pulmonary hypertension hyperlipidemia, DM1/ESRD status post pancreas/kidney transplant (2020) on immunosuppression and Bactrim prophylaxis, PVD, HCV status post Rx, seizure disorder, chronic pain/neuropathy, past history IVDU/tobacco abuse. Last [facility] confinement November 2019 for multifocal pneumonia. 2 weeks ago, patient noted a tick on his left abdomen which he pulled out. Wound with surrounding redness. No fever, no chills. Patient was reaching for an object at the stairway of his home yesterday when he miscalculated a step causing him to fall down a flight of stairs. Some head trauma without LOC. Patient denies chest pain, SOB. Patient experienced achy right forearm pain with bleeding abrasions noted. Patient brought to [facility] ER by family yesterday. CT head and C-spine negative for acute processes. CT abdomen pelvis showed gallbladder distention and sludge cholelithiasis. Right [place] kidney hydronephrosis. Renal transplants. Postop changes. Right hand/forearm x-ray showed comminuted mildly displaced fracture right distal radius. Nondisplaced fracture right ulnar styloid. No dislocation. Volar splint applied and patient discharged home with instructions to follow-up with orthopedic doctor of choice outpatient for right radial/ulnar fractures. Intractable right forearm pain at home. IV ceftriaxone administered at the ER for left abdominal cellulitis. Initial BP upon arrival at the ER 160s. Medical History as above Surgical History : Peritoneal dialysis catheter placement, laser trabeculoplasty, pancreatic transplant, kidney transplant, tonsillectomy, dental surgery Family History : DM, heart disease, stroke, lung cancer Personal/Social history : Past tobacco abuse, no EtOH intake, disabled Admission Exam Per Admitting Provider GENERAL: Slightly uncomfortable, looks older than stated age, no respiratory distress SKIN: Normal color, warm HEENT: [place] palpebral conjunctivae, L ptosis (chronic as per patient), dry buccal mucosa NECK : Supple, no tenderness CHEST : Decreased breath sounds, no tenderness HEART : RRR, no obvious murmurs ABDOMEN: Some distention, crusty ulcerated wound with surrounding erythema left abdomen with minimal tenderness EXTREMITIES : No LE swelling/tenderness, dressing over splint right forearm NEUROLOGIC : Coherent, chronic left ptosis, no facial asymmetry, gait and stance not assessed Principal Diagnosis Right wrist fracture Fall Hypertension Cellulitis Discharge Exam Constitutional + well hydrated; no acute distress Eyes PERRL, conjunctivae normal, anicteric sclerae ENMT external ear and nose normal, oropharynx normal Respiratory normal respiratory effort, lungs clear to auscultation Cardiovascular Rate/Rhythm: regular rate and regular rhythm S1 S2 Gastrointestinal (Abdomen) normal bowel sounds, soft, nontender, no hepatosplenomegaly Musculoskeletal Right forearm bandaged Neurologic PERRL, EOMI, accommodation nl, no face palsy, no dysarthria Psychiatric A+Ox3, euthymic affect Discharge Data Allergies Allergy/AdvReac Type Severity Reaction Status Date / Time No Known Drug Allergies Allergy Unknown Verified 11/30/21 11:19 Consultations 10/20/22 03:30 ED Decision to Admit Stat 10/20/22 04:38 Consult Orthopedic Surgery Routine Ordered Studies 10/19/22 22:00 CT lumbar spine wo con Stat CT thoracic spine wo con Stat 10/20/22 01:15 CT abd pelvis wo con Stat Hospital Course (1) Fall: (2) Closed fracture of right wrist: (3) Uncontrolled hypertension: (4) Cellulitis: Plan Patient had a mechanical fall at home and developed right wrist/forearm pain He was seen at [facility] and had imaging and reported to have wrist fracture Imaging showed intraarticular distal radial fracture Mildly elevated troponin HS at 20.6 on presentation due to trauma Patient was evaluated by Ortho. No surgery indicated Patient forearm and wrist splinted Advised to use arm sling. NWB. He is to follow up with Ortho surgeon outpatient. Patient is on chronic methadone therapy Discharged on scheduled tylenol and oxycodone 5mg prn for severe pain. Patient was provided extensive education on need for appropriate use of oxycodone, effects of misuse and side effects Patient's blood pressure was significantly elevated even on his home meds He reported his BP was mildly elevated the morning before his fall Started on nifedipine. Advised to monitor BP at home and contact PCP if not controlled. Reports recent tick bite to the abd Has Left abdominal wall cellulitis/wound Treated with antibiotics. Discharged on doxycycline for 3 more days to complete treatmetn Continue home CellCept and tacrolimus Rx Total Time Total Time Spent Total Time Spent (In Minutes): 40 Total Time Includes: Examination of the Patient, Discharge Planning and Medication Reconciliation Discharge Plan Discharge Items Patient Disposition: Home - Self-Care Reason For Visit: Fall and wrist fracture Discharge Diagnosis: Distal radial fracture (right) Ulnar styloid fracture (right) Fall Hypertension Cellulitis Condition on Discharge: Good Activity: As commented below Activity Comment: Non weight bearing Right upper extremity Non-emergency contact: Primary Care Provider and Surgeon Call non-emergency contact if: you have any medication questions and your symptoms worsen Follow-up/Referrals: Chris Cardona DO [Surgeon] - (Call Surgeon's office for follow up appointment) Ryan Leyva MD [Primary Care Provider] - Diet: Heart Healthy Addtl Attending Provider Instructions: Mr Jones. You presented to the hospital after a fall and found to have right wrist fracture. You were evaluated by Surgeon who did not recommend any surgical treatment at this time. Please continue to use splint and sling. Please [facility] Dr [phone] within 10-14 days. Please use the scheduled tylenol. Only use the oxycodone as needed for severe pain not controlled by the tylenol. Your blood pressure was significantly elevated and you were started on nifedip ine 10mg daily. Please take the doxycycline for 3 more days for the cellulitis Please monitor your blood pressure closely at home and follow up with your doctors who will make adjustments as needed. It was a pleasure taking care of you. Pending Studies at Discharge: No Stand-Alone Forms: My [facility] ybuy, Smoking Cessation Medications and DC Order Prescriptions: New doxycycline hyclate 100 mg Capsule 100 mg PO BID 3 Days Qty: 6 0RF nifedipine 10 mg capsule 10 mg PO DAILY Qty: 30 0RF acetaminophen 325 mg Tablet 975 mg PO TID Qty: 60 0RF oxycodone 5 mg Tablet 5 mg PO QID PRN (Reason: Severe pain) Qty: 20 0RF Continued tacrolimus 1 mg capsule,extended release 24hr 1 mg PO BID pregabalin [Lyrica] 50 mg capsule 50 mg PO TID Qty: 90 2RF clonazepam 0.5 mg tablet 0.5 mg PO BID PRN (Reason: Anxiety) clonidine HCl 0.1 mg tablet 0.1 mg PO BID sulfamethoxazole-trimethoprim 400-80 mg tablet 1 tab PO UD Rx Instructions: 3x/wk mycophenolate mofetil 250 mg capsule 750 mg PO BID Rx Instructions: 3 caps (250 each cap) BID rosuvastatin 10 mg tablet 10 mg PO DAILY aspirin 325 mg PO DAILY methadone 10 mg Tablet 100 mg PO DAILY Discharge Orders: Discharge Order (Routine); Ordered 10/21/22 Ordered By: Ariana Pugh Admission Data Admit Date/Time: 10/20/22 04:31 Attending Provider: Ariana Pugh I. Admit Provider: Jae Holbrook Primary Care Provider: Ryan Leyva Other Providers: Jae Holbrook ; Chris Cardona Other Interventions: Discharge Summary Assessment (RN) Last Done: 10/21/22 15:12
--- NOTE | 2022-10-21 20:18 | Electrocardiogram Report ---
Test Reason : Blood Pressure : / mmHG Vent. Rate : 080 BPM Atrial Rate : 080 BPM P-R Int : 140 ms QRS Dur : 088 ms QT Int : 372 ms P-R-T Axes : 023 000 044 degrees QTc Int : 429 ms Normal sinus rhythm Low voltage QRS Septal infarct , age undetermined Abnormal ECG When compared with ECG of 03-NOV-2019 02:42, No significant change was found Confirmed by Antoine Brannon ([id number]) on 10/21/2022 8:18:38 PM Referred By: REFERRED SELF Confirmed By:Antoine Brannon
== END 2022-10-21 14:15 | disposition home or self-care (01) ==
LOC: 2N 20:42 → ED 20:42 → 2N 10-20 05:25

== ENCOUNTER 2023-06-04 14:38 | Inpatient (IN) ==
--- NOTE | 2023-06-04 15:01 | ED Triage Note ---
Date of Service June 04, 2023 Provider in Triage Author: Kathi Smyth History of Present Illness This patient was briefly evaluated while in triage. An abbreviated physical exam was performed. This patient is a 37-year-old Male who presents to the ED for evaluation of left leg pain. He has had swelling and pain for 1 week which worsened today. He has been on Bactrim but states his doctors believe that this is causing a rash on his arms and legs. He states they called him today and told him to change to Cipro. He has a history of a kidney transplant. Physical Exam VITALS: Vitals are noted on the nurse's note and reviewed by myself. GENERAL: This is a 37-year-old male, chronically unwell appearing. SKIN: Erythematous rash noted to bilateral upper extremities and lower extremities. Diffuse erythema noted of the left lower extremity. MUSCULOSKELETAL: Diffuse erythema and edema noted of the left lower extremity with anterior ulceration. NEURO: Patient was alert and oriented to person place and time. Initial orders for labs and / or imaging were placed and patient was placed in the waiting area until a bed is available. Please see further documentation for the full ED course. MDM / Impression Impression Impression: Cellulitis of left leg, Elevated procalcitonin
--- OUTSIDE RECORDS SUMMARY | 2023-06-04 16:38 | External Medical Summary | Summary of Care ---
Author Name Unknown Organization [facility] Address [address] [place] [address] Phone [phone] Care Team Providers Care Denitrator Name Role Phone Ryan Leyva MD Primary Care Provider [phone] Reason for Visit * Reason Comments Outpatient Testing Encounter Details Date Type Department Care Team (Late st Contact Info) Description 05/31/2023 1:20 PM EST Laboratory Laboratory [facility] [address] [place] [phone] [facility] [address] [place] [address] Type 1 diabetes mellitus with hemoglobin A1c goal of less than 7.0% ([facility]); Rash and nonspecific skin eruption Allergies No known active allergiesdocumented as of this encounter (statuses as of 05/31/2023) Medications Medication Sig Dispensed Refills Start Date End Date Status Mycophenolate Mofetil 250 MG Oral Capsule (Cellcept) Take 3 Capsules by mouth in the morning and 3 Capsules before bedtime. 0 07/05/2021 Active Tacrolimus 1 MG Oral Capsule (Prograf) 1 Capsule in the morning and 1 Capsule before bedtime. 0 09/14/2021 Active Aspirin 325 MG Oral Tablet Take 1 Tablet by mouth in the morning. 0 Active cloNIDine HCl 0.1 MG Oral Tablet (Catapres) Take 1 Tablet by mouth in the morning and 1 Tablet in the evening. 180 Tablet 3 10/08/2022 Active Methadone HCl 10 MG/5ML Oral Solution Take 50 mL by mouth daily. 0 Active Carvedilol 6.25 MG Oral Tablet (Coreg) Take 1 Tablet by mouth in the morning and 1 Tablet before bedtime. 180 Tablet 3 01/14/2023 Active Rosuvastatin Calcium 10 MG Oral Tablet (Crestor)Indication s:Type 1 diabetes mellitus with hemoglobin A1c goal of less than 7.0% (HCC) TAKE 1 TABLET BY MOUTH EVERY MORNING 90 Tablet 0 01/26/2023 Active Pregabalin 50 MG Oral Capsule (Lyrica)Indications :History of drug abuse ([facility]) take 1 capsule by mouth in the morning, 1 capsule at noon and 1 capsule before bedtime. 90 Capsule 0 04/22/2023 Active clonazePAM 0.5 MG Oral Tablet (KlonoPIN)Indicatio ns:JOB (generalized anxiety disorder) Take 1 Tablet by mouth 2 times a day as needed for Anxiety. 60 Tablet 1 05/22/2023 Active Santyl 250 UNIT/GM External Ointment Apply to each wound edge to edge nickel thickness once daily 0 05/17/2023 Active Cyclobenzaprine HCl 10 MG Oral Tablet (Flexeril) 0 Active Ketoconazole 2 % External Cream Apply topically to affected area. 0 05/14/2023 06/03/2023 Active Triamcinolone Acetonide 0.1 % External Cream (Aristocort)Indicat ions:Rash and nonspecific skin eruption,Scald burn Apply topically to affected area 2 times a day. On left forearm and Rt thigh till better 45 g 1 05/21/2023 Active Clotrimazole-Betame thasone 1-0.05 % External Cream (Lotrisone) 0 05/25/2023 Active Hospital, Clinic, or Other Facility Administered Medication Ordered Dose Route Frequency Start Date End Date Status bevaCIZumab (Avastin) inj 1.25 mgIndications:Stable proliferative diabetic retinopathy of both eyes associated with type 1 diabetes mellitus (HCC),Vitreous hemorrhage of left eye (HCC) 1.25 mg IZ PRN 06/29/2022 06/29/2023 Active ROPivacaine (Naropin) inj 1.5 mgIndications:Stable proliferative diabetic retinopathy of both eyes associated with type 1 diabetes mellitus (HCC),Vitreous hemorrhage of left eye (HCC) 1.5 mg PERINEURAL PRN 06/29/2022 06/29/2023 Active documented as of this encounter (statuses as of 05/31/2023) Active Problems Problem Noted Date Diagnosed Date Diabetic Charcot foot 04/19/2023 Venous stasis of both lower extremities 01/15/20 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 History of type 1 diabetes mellitus 01/14/2023 Overview: 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 Overweight (BMI 25.0-29.9) 01/12/2023 History of drug abuse 10/30/2022 Overview: IVDA JOB (generalized anxiety disorder) 10/28/2022 Kidney replaced by transplant 07/16/2022 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 07/16/2022 Hepatitis C virus infection cured after antiviral drug therapy 04/26/2020 Overview: HCV treated; SVR confirmed 04/18/2020 Seizure disorder 02/14/2019 HTN, goal below 130/80 10/18/2016 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 07/24/2016 documented as of this encounter (statuses as of 05/31/2023) Resolved Problems Problem Noted Date Diagnosed Date Resolved Date DKA (diabetic ketoacidoses) 02/20/2019 07/16/2022 Acute respiratory failure with hypoxia 02/20/2019 07/16/2022 Aspiration pneumonia 02/20/2019 023 Type 1 diabetes mellitus wit h ketoacidosis without coma 02/16/2019 07/16/2022 Hypertensive emergency witho ut congestive heart failure 02/16/2019 07/16/2022 Encephalopathy acute 02/16/2019 023 ESRD on peritoneal dialysis 10/18/2016 07/16/2022 Type 1 diabetes mellitus wit h hemoglobin A1c goal of less than 7.0% 10/18/2016 01/14/2023 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 07/24/2016 07/17/2022 Overview: ICD-10 update of inactive term Hepatitis C 06/10/2016 04/26/2020 Overview: HCV treated; SVR confirmed 04/18/2020 documented as of this encounter (statuses as of 05/31/2023) Immunizations Name Administration Dates Next Due COVID-19 mRNA, LNP-s, No Pre serve, 2-Dose Series (Moderna) 08/09/2020,07/12/2020 Seasonal Influenza Virus Vac cine, Unspecified Formulation 05/10/2018,07/15/2017 Seasonal Influenza, PF, 6 M & above, IM , (FluLaval or Fluzone) 03/07/2020,03/18/2019 Seasonal Influenza, Quadriva lent,with Preserve, 3 yr & above, IM 07/15/2017 Seasonal Influenza, Split, I IV3, With Preserve, Inj 03/07/2020,03/18/2019,05/10/2018,2017 TDAP (age 11 and older)(Adacel) 06/21/2018,12/04 documented as of this encounter Social History Tobacco Use Types Packs/Day Years Used Date Smoking Tobacco: Former Vaporizer Smokeless Tobacco: Current Snuff Comments:12/07/19-quit 2 yrs ago Alcohol Use Standard Drinks/Week Comments No 0 (1 standard drink = 0.6 oz pur e alcohol) Sex and Gender Information Value Date Recorded Sex Assigned at Not on file Gender Identity Not on file Sexual Orientation Not on file Job Start Date Occupation Industry Not on file Not on file Not on file documented as of this encounter Functional Status Functional Status Response Date of Assess ment Does this person have seriou s difficulty walking or climbing stairs? Yes 10/28/2018 documented as of this encounter Plan of Treatment Upcoming Encounters Date Type Department Care Team (Late st Contact Info) Description 05/31/2023 1:45 PM EST Office Visit Dermatology [facility] [address] [place] [address] Jason Bautista MD [address] [place] [address] Rash and nonspecific skin eruption* 06/17/2023 10:20 AM EST Office Visit Podiatry [facility] [address] [facility] [place] [address] Suzanne Person, NEENA [address] [place] [address] [place] [phone] 07/02/2023 7:45 AM EST Office Visit Ophthalmology, [facility] [address] [place] [address] Burton Schroeder DO [address] [place] [address] Scheduled Orders Name Type Priority Associated Diagnoses Orde r Schedule ANTINUCLEAR ANTIBODY (SOCORRO) SCREEN, CHINEDU Lab Routine Rash and nonspecific skin eruption Ordered: 05/31/2023 ANCA, IFA Lab Routine Rash and nonspecific skin eruption Ordered: 05/31/2023 CBC Lab Routine Rash and nonspecific skin eruption Ordered: 05/31/2023 DIFFERENTIAL, AUTOMATED Lab Routine Rash and nonspecific skin eruption Ordered: 05/31/2023 Health Maintenance Due Date Last Done Comments Hepatitis B (1 of 3 - 3-dose series) 1983 Pneumococcal Vaccine: Pediatrics (0 to 5 Years) and At-Risk Patients (6 to 64 Years) (1 - PCV) 09/30/1989 Depression Screening 1995 Albumin/Creatinine Ratio 09/30/2001 Diabetic Foot Exam 09/30/2001 COVID-19 Vaccine (3 - Moderna risk series) 09/06/2020 08/09/2020, 07/12/2020 Influenza Vaccine (FLU shot) (#1) 2023 03/07/2020, 03/07/2020, 03/18/2019, Additional history exists HbA1c 10/04/2023 04/04/2023, 11/09, 11/01/2021, Additional history exists Diabetic Eye Exam 12/18/2023 12/17/2022, , 09/15/2021, Additional history exists GFR 04/04/2024 04/04/2023, 11/09, 10/19/2022, Additional history exists DTaP,Tdap,and Td Vaccines (3 - Td or Tdap) 06/21/2028 06/21/2018, 12/05/2011 GARDASIL-HPV IMMUNIZATION SERIES Aged Out No longer eligible based on patient's age to complete this topic MENINGOCOCCAL (MENACTRA/MENVEO) Aged Out No longer eligible based on patient's age to complete this topic documented as of this encounter Medical Devices Not on filedocumented as of this encounter Visit Diagnoses Diagnosis Rash and nonspecific skin eruption- Primary Rash and other nonspecific skin eruption Type 1 diabetes mellitus with hemoglobin A1c goal of less than 7.0% (HCC) Rash and nonspecific skin eruption Rash and other nonspecific skin eruption documented in this encounter Advance Directives Latest Code Status on File Code Status Date Activated Date Inactivated Comments Full Code 02/14/2019 10:34 PM 02/20/2019 3:48 PM This order reflects the patients wishes and were consensually agreed upon. Question Answer Comments Discussion of Advance Directives occurred with: Not Discussed Care Teams Denitrator Relationship Specialty Start Date End Date Ryan Leyva MD [address] [facility] [place] [address] PCP - General Family Medicine 07/17/22 documented as of this encounter
--- OUTSIDE RECORDS SUMMARY | 2023-06-04 16:38 | External Medical Summary ---
Author Name Unknown Address Unknown Organization [id number]:LABORATORY [facility] - [address] [facility] [address] Laboratory Report Ordering Provider Test Date Status VICENTE KENNEY 05/31/2023 15:25:04 Final Observation Date Value Abnormality Reference (Units ) Status Bacteria identified in Specimen by Culture 05/31/2023 15:25:04 [id number]^ENTEROB ACTER CLOACAE COMPLEX Abnormal Final Few Enterobacter cloacae com plex
This bacterial species is known to produce a chromosomal AmpC inducible beta lactamase. Penicillin or cephalosporin use, with the exception of cefepime, may result in resistance. Performing Location LABOR[facility] - [address] [facility] [address] Ordering Provider Test Date Status VICENTE KENNEY 05/31/2023 15:25:04 Final Observation Date Value Abnormality Reference (Units) Status Cefepime susceptibility 05/31/2023 15:25:04 <=1 Susceptible Final cefOXitin [Susceptibility] 05/31/2023 15:25:04 >=64 Resistant Final Ciprofloxacin 05/31/2023 15:25:04 <=0.25 Susceptible Final Gentamicin susceptibility 05/31/2023 15:25:04 >=16 Resistant Final Levofloxacin susceptibility 05/31/2023 15:25:04 1 Intermediate Final Piperacillin + Tazobactamsusceptibility 05/31/2023 15:25:04 <=4 Susceptible Final Tobramycinsusceptibility 05/31/2023 15:25:04 >=16 Resistant Final TMP-SMZ susceptibility 05/31/2023 15:25:04 >=320 Resistant Final Test: Culture, Wound, Super ficial, Aerobic
Specimen Source: Knee, Left
Specimen Type: Swab
Specimen Date: 05/31/2023 3:25 PM
Result Date: 06/02/2023 8:10 AM
Result Status: Final result
Abnormal: Yes
Resulting Lab: LABORATORY [facility]
[address]
[facility] [address]

CULTURE

Few Enterobacter cloacae complex (Abnormal)

This bacterial species is known to produce a chromosomal AmpC inducible
beta lactamase. Penicillin or cephalosporin use, with the exception of
cefepime, may result in resistance.

SUSCEPTIBILITY

Enterobacter cloacae
complex
METHOD MICROBROTH DILUTIONS

CEFEPIME <=1 Susceptible
CEFOXITIN >=64 Resistant
CIPROFLOXACIN <=0.25 Susceptible
GENTAMICIN >=16 Resistant
LEVOFLOXACIN 1 Intermediate
PIPERACILLIN TAZOBACTAM <=4 Susceptible
TOBRAMYCIN >=16 Resistant
TRIMETH/SULFAMETHOXAZOLE >=320 Resistant

null Performing Location LABOR[facility]ORY [facility] - [address] [facility] [address]
--- OUTSIDE RECORDS SUMMARY | 2023-06-04 16:38 | External Medical Summary | Summary of Care ---
Author Name Unknown Organization [facility] Address [address] [place] [address] Phone [phone] Care Team Providers Care Advertising Campaign Manager Name Role Phone Ryan Leyva MD Primary Care Provider [phone] Reason for Visit * Reason Onset Date Comments Referral 05/21/2023 Encounter Details Date Type Department Care Team ([facility] st Contact Info) Description 05/21/2023 Telephone Access Center, [facility] [address] [facility] *DO NOT REMOVE THIS DEPARTMENT* [place] [address] Services, Scheduling [address] [place] [address] Referral Allergies No known active allergiesdocumented as of this encounter (statuses as of 05/22/2023) Medications Medication Sig Dispensed Refills Start Date [...] by mouth in the morning. 0 Active Sulfamethoxazole-Tr imethoprim 400-80 MG Oral Tablet (Bactrim) Take 1 Tablet by mouth in the morning. Take three times a week. 0 07/17/2022 Active cloNIDine HCl 0.1 MG Oral Tablet [...] hemoglobin A1c goal of less than 7.0% ([facility]) TAKE 1 TABLET BY MOUTH EVERY MORNING 90 Tablet 0 01/26/2023 Active Pregabalin 50 MG Oral Capsule (Lyrica)Indications :History of drug abuse ([facility]) take 1 capsule by mouth in the morning, 1 capsule at noon and 1 capsule before bedtime. 90 Capsule 0 04/22/2023 Active Amoxicillin-Pot Clavulanate 875-125 MG Oral Tablet (Augmentin) Take 1 Tablet by mouth in the morning and 1 Tablet before bedtime. 20 Tablet 0 05/17/2023 Active Santyl 250 UNIT/GM External Ointment Apply to each wound edge to edge nickel thickness once daily 0 05/17/2023 Active Cyclobenzaprine HCl 10 MG Oral Tablet (Flexeril) 0 Active Ketoconazole 2 % External Cream Apply topically to affected area. 0 05/14/2023 06/03/2023 Active Silvadene 1 % External Cream Apply topically to affected area. 0 05/14/2023 05/24/2023 Active Triamcinolone Acetonide 0.1 % External Cream (Aristocort)Indicat ions:Rash and nonspecific skin eruption,Scald burn Apply topically to affected area 2 times a day. On left forearm and Rt thigh till better 45 g 1 05/21/2023 Active Hospital, Clinic, or Other Facility Administered [...] as of this encounter (statuses as of 05/22/2023) Active Problems Problem Noted Date Diagnosed Date [...] as of this encounter (statuses as of 05/22/2023) Resolved Problems Problem Noted Date Diagnosed Date [...] as of this encounter (statuses as of 05/22/2023) Immunizations Name Administration Dates Next Due COVID-19 [...] Yes 10/28/2018 documented as of this encounter Miscellaneous Notes * Telephone Encounter - Marine Bellamy OSA - 05/22/2023 8:20 AM EST Called patient and scheduled appointment. * Telephone Encounter - Fransisca Reyes OSA - 05/21/2023 3:29 PM EST Pt has a 3 day referral for Rash and nonspecific skin eruption / Scald burn. Can you please assist. Keven campbell documented in this encounter Plan of Treatment Upcoming Encounters Date Type Department Care Team (Late st Contact Info) Description 05/22/2023 1:45 PM EST Office Visit Orthopaedics [facility] [place] [address] [place] [address] Pollo Valdez MD [address] [place], [place] [id number] 05/28/2023 11:15 AM EST Office Visit Ophthalmology, [facility] [address] [place] [address] Burton Schroeder, [address] [place] [address] 05/31/2023 1:45 PM EST Office Visit Dermatology [facility] [address] [facility] [place] [address] Jason Bautista MD [address] [place] [address] 06/17/2023 10:20 AM EST Office Visit Podiatry [facility] [address] [place] [address] Suzanne Person, DPCaitie [address] [place] [address] Health Maintenance Due Date Last Done Comments [...] 03/18/2019, Additional history exists HbA1c 10/04/2023 04/04/2023, 06/2 11/2022, 11/01/2021, Additional history exists Diabetic Eye Exam [...] Not on filedocumented as of this encounter Advance Directives Latest Code Status on File Code Status Date Activated Date Inactivated Comments Full Code 02/14/2019 10:34 PM 02/20/2019 3:48 PM This order reflects the patients wishes and were consensually agreed upon. Question Answer Comments Discussion of Advance Directives occurred with: Not Discussed Care Teams Advertising Campaign Manager Relationship Specialty Start Date End Date Ryan Leyva MD [address] [place] [address] PCP - General Family Medicine 07/17/22 documented as of this encounter
--- OUTSIDE RECORDS SUMMARY | 2023-06-04 16:38 | External Medical Summary | Summary of Care ---
Author Name Unknown Organization [facility] Address [address] [place] [address] Phone [phone] Care Team Providers Care Slate Splitter Name Role Phone Ryan Leyva MD Primary Care Provider [phone] Reason for Referral * Evaluate & Treat - Unlimited Visits (Within 3 days (urgent)) - Pending Review Specialty Diagnoses / Procedures Referred By Stefanie arango Referred To Contact Dermatology Diagnoses Rash and nonspecific skin eruption Scald burn Valery Scott MD [address] [facility] [place] [address] Referral ID Status Reason Start Date Expiration Date Visits Requested Visits Authorized [id number] Pending Review Specialty Services Required 3 [phone] Question Answer Referral Priority Within 3 days (urgent) Where should this appointment be scheduled? [facility] Are you referring the patient for Mohs Surgery and have a current positive skin cancer biopsy result? No What is the reason for the patient referral? Rash/Skin Check/Eval of Lesion or Mole Reason for Visit * Reason Comments Acute The pt stated he has had a deep red rash on his L arm for approx 1 week and it is starting to spread. Pt stated it is spreading and now it is also on his R knee and groin area. The pt stated that the rash has blisters as well. Encounter Details Date Type Department Care Team ([facility] st Contact Info) Description 05/21/2023 1:20 PM EST Telemedicine General Internal Medicine [facility] [address] [facility] [place] [address] Valery Scott MD [address] [place] [id number] Rash and nonspecific skin eruption*; Scald burn; 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 (HCC); Kidney replaced by transplant Allergies No known active allergiesdocumented as of this encounter (statuses as of 05/21/2023) Medications Medication Sig Dispensed Refills Start Date [...] by mouth in the morning. 0 Active Sulfamethoxazole- Trimethoprim 400-80 MG Oral Tablet (Bactrim) Take 1 [...] Active Rosuvastatin Calcium 10 MG Oral Tablet (Crestor)Indicati ons:Type 1 diabetes mellitus with hemoglobin A1c goal of less than 7.0% ([facility]) TAKE 1 TABLET BY MOUTH EVERY MORNING 90 Tablet 0 01/26/2023 Active clonazePAM 0.5 MG Oral Tablet (KlonoPIN)Indicat ions:JOB (generalized anxiety disorder) Take 1 Tablet by mouth 2 times a day as needed for Anxiety. 60 Tablet 1 03/29/2023 Active Pregabalin 50 MG Oral Capsule (Lyrica)Indicatio ns:History of drug abuse ([facility]) take 1 capsule by mouth in the [...] Apply topically to affected area. 0 05/14/2023 3 Active Silvadene 1 % External Cream Apply topically to affected area. 0 05/14/2023 3 Active Triamcinolone Acetonide 0.1 % External Cream (Aristocort)Indic ations:Rash and nonspecific skin eruption,Scald burn Apply topically to affected area 2 times a day. 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 Chief Complaint Patient presents with Acute The pt stated he has had a deep red rash on his L arm for approx 1 week and it is starting to spread. Pt stated it is spreading and now it is also on his R knee and groin area. The pt stated that alexash has blisters as well. I was in a hospital or clinic location. After connecting through televideo, patient was verified with two unique identifiers. Patient (or authorized legal key account representative) was then informed that this was a Telemedicine visit and being conducted confidentially over secure lines. Methods to assure confidentiality were taken. Patient acknowledged consent and understanding of privacy and security of the Telemedicine visit. The patient agreed to participate. HPI: This clinic encounter was completed utilizing remote or virtual means secondary to the COVID-19 outbreak. Patient presents today for acute appointment with symptoms of a rash on his left forearm for the past week as well as on the right thigh. States he was seen at urgent care in [facility] in [place] and was given a burn cream- Silvadene as well as antifungal cream, symptoms persist. He was also on prednisone tapering course April 04, April 19 and May 07 for Charcot's foot, currently on Augmentin for infection in his foot per Podiatry. He thinks he may have had a scalding injury from a steam when he was cooking about a week ago, denies having any blister in the area except had thick peeling skin which was dry and had some blister at the edges. Now it is mostly red, no bleeding, no purulent discharge. No fever or chills. Also complains of a rash on his right thigh, had a small scab which he had been putting a dressing on. Also complains of a jock itch with a rash, is applying the antifungal cream- Patient currently in a car at a gas station Immunization History Administered Date(s) Administered COVID-19 mRNA, LNP-s, No Preserve, 2-Dose Series (Moderna) 07/12/2020, 08/09/2020 Seasonal Influenza Virus Vaccine, Unspecified Formulation 07/15/2017, 05/10/2018 Seasonal Influenza, PF, 6 M & above, IM , (FluLaval or Fluzone) 03/18/2019, 03/07/2020 Seasonal Influenza, Quadrivalent,with Preserve, 3 yr & above, IM 07/15/2017 Seasonal Influenza, Split, IIV3, With Preserve, Inj 07/15/2017, 05/10/2018, 03/18/2019, 03/07/2020 TDAP (age 11 and older)(Adacel) 12/05/2011, 06/21/2018 Patient Active Problem List Diagnosis Code Stable proliferative diabetic retinopathy of both eyes associated with type 1 diabetes mellitus ([facility]) E10.3553 HTN, goal below 130/80 I10 Seizure disorder ([facility]) G40.909 Hepatitis C virus infection cured after antiviral drug therapy Z86.19 Kidney replaced by transplant Z94.0 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 ([facility]) Z94.83 JOB (generalized anxiety disorder) F41.1 History of drug abuse ([facility]) F19.11 Overweight (BMI 25.0-29.9) E66.3 Venous stasis of both lower extremities I87.8 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 Tacrolimus 1 MG Oral Capsule (Prograf) 1 Capsule in the morning and 1 Capsule before bedtime. Aspirin 325 MG Oral Tablet Take 1 Tablet by mouth in the morning. Sulfamethoxazole-Trimethoprim 400-80 MG Oral Tablet (Bactrim) Take 1 Tablet by mouth in the morning. Take three times a week. cloNIDine HCl 0.1 MG Oral Tablet (Catapres) Take 1 Tablet by mouth in the morning and 1 Tablet in the evening. 180 Tablet 3 Methadone HCl 10 MG/5ML Oral Solution Take 50 mL by mouth daily. Carvedilol 6.25 MG Oral Tablet (Coreg) Take 1 Tablet by mouth in the morning and 1 Tablet before bedtime. 180 Tablet 3 Rosuvastatin Calcium 10 MG Oral Tablet (Crestor) TAKE 1 TABLET BY MOUTH EVERY MORNING 90 Tablet 0 clonazePAM 0.5 MG Oral Tablet (KlonoPIN) Take 1 Tablet by mouth 2 times a day as needed for Anxiety. 60 Tablet 1 Pregabalin 50 MG Oral Capsule (Lyrica) take 1 capsule by mouth in the morning, 1 capsule at noon and 1 capsule before bedtime. 90 Capsule 0 Amoxicillin-Pot Clavulanate 875-125 MG Oral Tablet (Augmentin) Take 1 Tablet by mouth in the morning and 1 Tablet before bedtime. 20 Tablet 0 Cyclobenzaprine HCl 10 MG Oral Tablet (Flexeril) Santyl 250 UNIT/GM External Ointment Apply to each wound edge to edge nickel thickness once daily (Patient not taking: Reported on 05/21/2023) Ketoconazole 2 % External Cream Apply topically to affected area. (Patient not taking: Reported on 05/21/2023) Silvadene 1 % External Cream Apply topically to affected area. (Patient not taking: Reported on 05/21/2023) Current Facility-Administered Medications Medication Dose Route Frequency Provider Last Rate Last Admin bevaCIZumab (Avastin) inj 1.25 mg 1.25 mg Intravitreal PRN Burton Schroeder, DO 1.25 mg at 04/09/23 1040 ROPivacaine (Naropin) inj 1.5 mg 1.5 mg Perineural PRN Burton Schroeder, DO 1.5 mg at 045 Review of patient's allergies indicates: No Known Allergies OBJECTIVE: No vitals were obtained for this appointment PHYSICAL EXAM: General: alert, healthy, no distress Head-normocephalic Skin-left forearm with a large area of scaling of the skin both dorsal and ventral aspect, no oozing noted. Right thigh-patchy areas of erythema adjacent to a dry scab ASSESSMENT/PLAN: Rash and nonspecific skin eruption (Primary) - DERMATOLOGY REFERRAL OP - Triamcinolone Acetonide 0.1 % External Cream (Aristocort); Apply topically to affected area 2 times a day. On left forearm and Rt thigh till better Scald burn - DERMATOLOGY REFERRAL OP - Triamcinolone Acetonide 0.1 % External Cream (Aristocort); Apply topically to affected area 2 times a day. On left forearm and Rt thigh till better Was recently on multiple doses of oral steroids. Continue with topical Silvadene cream to the affected areas twice a day ; use triamcinolone cream only to non open areas of the skin or where there is a lot of dryness 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 (HCC) Kidney replaced by transplant Follow-up: Return if symptoms worsen or fail to improve. | Check-out note: Kody in person appt PCP office eval genital rash (This note was completed using the dictation program Fluency Direct. As such, there may be misspellings, word substitutions, or other variations that should not change the essence of the clinical content of this encounter note. If there is need for further clarification, please direct questions to the provider listed above.) Patient and / caregiver verbalizes understanding of above instructions and agrees with plan of care. Valery Scott MD 05/21/2023 documented in this encounter Nursing Notes * Maxi Leong LPN - 05/21/2023 1:22 PM EST Chief Complaint Patient presents with Acute The pt stated he has had a deep red rash on his L arm for approx 1 week and it is starting to spread. Pt stated it is spreading and now it is also on his R knee and groin area. The pt stated that therash has blisters as well. documented in this encounter Plan of Treatment Upcoming Encounters Date Type Department Care Team (Late st Contact Info) Description 05/22/2023 1:45 PM EST Office Visit Orthopaedics [facility] [address] [place] [address] Pollo Valdez MD [address] [place], [place] [id number] 05/28/2023 11:15 AM EST Office Visit Ophthalmology, [facility] [address] [place] [address] Burton Schroeder, [address] [place] [address] 06/17/2023 10:20 AM EST Office Visit Podiatry [facility] [address] [place] [address] Suzanne Person, NEENA [address] [place] [address] Scheduled Referrals Name Type Priority Associated Diagnoses Orde r Schedule DERMATOLOGY REFERRAL OP Referral Within 3 days (urgent) Rash and nonspecific skin eruption Scald burn Ordered: 05/21/2023 Health Maintenance Due Date Last Done Comments [...] 03/18/2019, Additional history exists HbA1c 10/04/2023 04/04/2023, 0611/2022, 11/01/2021, Additional history exists Diabetic Eye Exam [...] Primary Rash and other nonspecific skin eruption Scald burn 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 (HCC) 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 Kidney replaced by transplant documented in this encounter Advance Directives Latest Code Status on File Code Status Date Activated Date Inactivated Comments Full Code 02/14/2019 10:34 PM 02/20/2019 3:48 PM This order reflects the patients wishes and were consensually agreed upon. Question Answer Comments Discussion of Advance Directives occurred with: Not Discussed Care Teams Slate Splitter Relationship Specialty Start Date End Date Ryan Leyva MD [address] [facility] [place] [address] PCP - General Family Medicine 07/17/22 documented as of this encounter"
--- OUTSIDE RECORDS SUMMARY | 2023-06-04 16:38 | External Medical Summary | Summary of Care ---
Author Name Unknown Organization [facility] Address [address] [place] [address] Phone [phone] Care Team Providers Care Cell Efficiency Supervisor Name Role Phone Ryan Leyva MD Primary Care Provider [phone] Encounter Details Date Type Department Care Team (Late st Contact Info) Description 05/31/2023 Refill Dermatology [facility] 200 [facility] [place] [address] Jason Bautista MD [address] [place] [address] Allergies No known active allergiesdocumented as of [...] hemoglobin A1c goal of less than 7.0% ([facility]) TAKE 1 TABLET BY MOUTH EVERY MORNING 90 Tablet 0 01/26/2023 Active Pregabalin 50 MG Oral Capsule (Lyrica)Indicatio ns:History of drug abuse ([facility]) take 1 capsule by mouth in the morning, 1 capsule at noon and 1 capsule before bedtime. 90 Capsule 0 04/22/2023 Active clonazePAM 0.5 MG Oral Tablet (KlonoPIN)Indicat [...] till better 45 g 1 05/21/2023 Active Clotrimazole-Beta methasone 1-0.05 % External Cream (Lotrisone) 0 05/25/2023 Active Silvadene 1 % External Cream Apply topically to affected area daily. 50 g 2 05/31/2023 Active Silvadene 1 % External Cream Apply topically to affected area. 0 05/14/2023 05/31/2023 Discontinue d(Refill) Hospital, Clinic, or Other Facility Administered Medication [...] encounter Miscellaneous Notes * Telephone Encounter - Jason Bautista MD - 05/31/2023 2:09 PM EST Signed Prescriptions: Disp Refills Silvadene 1 % External Cream 50 g 2 Sig: Apply topically to affected area daily.Authorizing Provider: JASON BAUTISTA * Telephone Encounter - Lilliana Orozco LPN - 05/31/2023 1:50 PM EST Pending Prescriptions: Disp Refills Silvadene 1 % External Cream 50 g 2 Sig: Apply topically to affected area daily. 05/31/2023 (in office), Visit date not found (telemedicine) Visit date not found If no future appointments scheduled, and last appointment is greater than a year ago, please schedule patient for a follow-up appointment Last date the medication was ordered: 05/14/23 Patient Phone Numbers Labs: Lab Results Component Value Date/Time CREAT 0.89 04/04/2023 12:00 AM CREAT 1.07 11/01/2021 10:22 AM CREAT 7.4 (H) 12/07/2019 12:02 PM POTASSIUM 4.2 04/04/2023 12:00 AM POTASSIUM 4.6 11/01/2021 10:22 AM POTASSIUM 4.4 12/07/2019 12:02 PM TSH 1.53 07/01/1998 12:34 PM LDLCALC 126 12/07/2019 12:02 PM ALT 20 12/07/2019 12:02 PM HGBA1C 5.1 04/04/2023 12:00 AM HGBA1C 5.2 11/01/2021 10:22 AM HGBA1C 8.0 (H) 12/07/2019 12:02 PM documented in this encounter Plan of Treatment Upcoming Encounters Date Type Department Care Team (Late st Contact Info) Description 06/17/2023 10:20 AM EST Office Visit Podiatry [facility] [address] [facility] [place] [address] Suzanne Person DPM [address] [place] [address] [place] [address] 07/02/2023 7:45 AM EST Office Visit Ophthalmology, [facility] [address] [facility] [place] [address] Burton Schroeder DO [address] [place] [address] Health Maintenance Due Date Last Done Comments [...] Directives occurred with: Not Discussed Care Teams Cell Efficiency Supervisor Relationship Specialty Start Date End Date Ryan Leyva MD [address] [place] [address] PCP - General Family Medicine 07/17/22 documented as of this encounter
--- OUTSIDE RECORDS SUMMARY | 2023-06-04 16:38 | External Medical Summary | Summary of Care ---
Author Name Unknown Organization [facility] Address [address] [place] [address] Phone [phone] Care Team Providers Care Geothermal Operations Engineer Name Role Phone Ryan Leyva MD Primary Care Provider [phone] Reason for Visit * Reason Onset Date Comments Advice 04/16/2023 Encounter Details Date Type Department Care Team ([facility] st Contact Info) Description 04/16/2023 Telephone Family Practice [facility] [address] [facility] [address] Ryan Leyva MD [address] [place] [address] Advice Allergies No known active allergiesdocumented as of [...] by mouth in the morning. 0 Active Sulfamethoxazole-Tri methoprim 400-80 MG Oral Tablet (Bactrim) Take 1 [...] Active Rosuvastatin Calcium 10 MG Oral Tablet (Crestor)Indications :Type 1 diabetes mellitus with hemoglobin A1c goal of less than 7.0% (HCC) TAKE 1 TABLET BY MOUTH EVERY MORNING 90 Tablet 0 01/26/2023 Active Hospital, Clinic, or Other Facility Administered [...] encounter Miscellaneous Notes * Telephone Encounter - Ryan Leyva MD - 04/16/2023 3:55 PM EST I'll discuss at appt * Telephone Encounter - Amy Ramirez LPN - 04/16/2023 3:31 PM EST Pt has been seeing podiatry for feet - should this go to podiatry or will you discuss with pt at upcoming appt? * Telephone Encounter - Charlotte Leblanc OSA - 04/16/2023 3:08 PM EST Pt calling to request for PCP to help getting an order for a wheel chair. Pt does live in apartments so needs something small. documented in this encounter Plan of Treatment Upcoming Encounters Date Type Department Care Team (Late st Contact Info) Description 05/28/2023 11:15 AM EST Office Visit Ophthalmology, [facility] [address] [place] [address] Burton Schroeder, [address] [place] [address] 05/31/2023 1:45 PM EST Office Visit Dermatology [facility] [address] [place] [address] Jason Bautista MD [address] [facility] [place] [address] 06/17/2023 10:20 AM EST Office Visit Podiatry [facility] 132 [facility] [place] [address] Suzanne Person, DPM [address] [facility] [place] [address] Health Maintenance Due Date Last Done Comments [...] Directives occurred with: Not Discussed Care Teams Geothermal Operations Engineer Relationship Specialty Start Date End Date Ryan Leyva MD [address] [place] [address] PCP - General Family Medicine 07/17/22 documented as of this encounter
--- OUTSIDE RECORDS SUMMARY | 2023-06-04 16:38 | External Medical Summary | Summary of Care ---
Author Name Unknown Organization [facility] Address [address] [place] [address] Phone [phone] Care Team Providers Care Childcare Teacher Name Role Phone Ryan Leyva MD Primary Care Provider [phone] Reason for Referral * Evaluate & Treat - Unlimited Visits (Within 10 days (routine)) - Pending Review Specialty Diagnoses / Procedures Referred By Stefanie arango Referred To Contact Orthopaedic Surgery / Orthopedics Diagnoses Charcot's arthropathy Pain in both feet Open wound of right lower leg, subsequent encounter Pain of left lower leg Cellulitis of left leg Suzanne Person DPM [address] [place] [address] Pollo Valdez MD [address] [place] [address] Referral ID Status Reason Start Date Expiration Date Visits Requested Visits Authorized [id number] Pending Review Specialty Services Required 05/17/[phone] Question Answer Referral Priority Within 10 days (routine) Where should this appointment be scheduled? [facility] What body part is the patient being seen for? Foot/Ankle/Calf What condition is the patient being seen for? Arthritis including related infection - Charcot arthropathy Comments Ranjana Gore/Raza patient. Would like opinion on surgery option even though I feel he is not an ideal candidate. Bilateral charcot arthropathy, left painful > right. Reason for Visit * Reason Comments Follow Up Bilateral feet Encounter Details Date Type Department Care Team ([facility] Contact Info) Description 05/17/2023 10:00 AM EST Office Visit Podiatry [facility] [address] [place] [address] Suznane Person, DPM [address] [place] [id number] Charcot's arthropathy*; Pain in both feet; Open wound of right lower leg, subsequent encounter; Pain of left lower leg; Cellulitis of left leg Allergies No known active allergiesdocumented as of this encounter (statuses as of 05/17/2023) Medications Medication Sig Dispensed Refills Start Date [...] 01/26/2023 Active clonazePAM 0.5 MG Oral Tablet (KlonoPIN)Indication s:JOB (generalized anxiety disorder) Take 1 Tablet by mouth 2 times a day as needed for Anxiety. 60 Tablet 1 03/29/2023 Active Pregabalin 50 MG Oral Capsule (Lyrica)Indications: History of drug abuse (HCC) take 1 capsule by mouth in the morning, 1 capsule at noon and 1 capsule before bedtime. 90 Capsule 0 04/22/2023 Active predniSONE 20 MG Oral Tablet (Deltasone) Take 4 tabs by mouth daily for 2 days, 3 tabs daily for 2 days, 2 tabs daily for 2 days, 1 tab daily for 2 days 20 Tablet 0 05/07/2023 Active Amoxicillin-Pot Clavulanate 875-125 MG Oral Tablet (Augmentin) Take 1 Tablet by mouth in the morning and 1 Tablet before bedtime. 20 Tablet 0 05/17/2023 Active Hospital, Clinic, or Other Facility Administered [...] as of this encounter (statuses as of 05/17/2023) Active Problems Problem Noted Date Diagnosed Date [...] as of this encounter (statuses as of 05/17/2023) Resolved Problems Problem Noted Date Diagnosed Date [...] as of this encounter (statuses as of 05/17/2023) Immunizations Name Administration Dates Next Due COVID-19 mRNA, LNP-s, No Pre serve, 2-Dose Series (Moderna) 08/09/2020,07/12/2020 SEASONAL INFLUENZA, PF, 6 M & Above, IM , (FLULAVAL or FLUZONE) 03/07/2020,03/18/2019 Seasonal Influenza Virus Vac cine, Unspecified Formulation 05/10/2018,07/15/2017 Seasonal Influenza, Quadriva lent,with Preserve, 3 yr & Above, IM 07/15/2017 Seasonal Influenza, Split, I IV3, With Preserve, Inj 03/07/2020,03/18/2019,05/10/2018,2017 TDAP (age 11 and older)(Adacel) 06/21/2018,12/04 documented as of this encounter Social History Tobacco Use Types Packs/Day Years Used Date Smoking Tobacco: Former Vaporizer Smokeless Tobacco: Current Snuff Comments:6/29/20-quit 2 yrs ago Alcohol Use Standard Drinks/Week [...] as of this encounter Progress Notes * Suzanne Person, DPM - 05/17/2023 10:07 AM EST Podiatry Established Note [facility] Name: Bernard Jones : 1985 Date: 05/17/2023 REASON FOR VISIT: follow up of bilateral foot charcot SUBJECTIVE: This patient is a 37 year old male who presents today for follow up of 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 He presents today partial weight bearing with bilateral camwalkers and crutches. We had tried a total contact cast at some point of which he came in to have cut off sooner. He has had some open wounds to the legs of which he is seeing Wound Care in [facility]. He is using bandages to the wounds with tubi direct mail clerk for compression. I had prescribed a knee scooter and motorized scooter. They had requested this order comefrom so PCP did order it. Bernard reports having an assessment coming up for this. His PCP has also talked to him about medical marijuana as he knows I have advised him NOT to take the prednisone. He reports the right is doing ok but the left is very painful with any pressure. He reports having a hard time getting around without putting pressure on this though. 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 Capillary refill time is within normal limits to all toes. Significant edema of the left lower leg and foot although improved from last visit. Minimal swelling on the right. No warmth. Neurologic: Sensation (light touch) intact to the bilateral lower extremities. Musculoskeletal: Slight midfoot pronunciation of both sides. He reports pain with palpation of the medial midfoot and hindfoot bilaterally, left worse than right. Dermatological: Multiple small open wounds to the left lower leg appear to be healed over with exception of a smallopening to the posterior medial aspect. Open wound to the right cagle which has no odor, drainage, or erythema. There is slight redness to the left lower leg. DIAGNOSTIC STUDIES: X-ray, bilateral foot, 05/17/2023 This includes three weight bearing x-rays AP MO and Lateral. The left foot shows changes to the cuboid region and medial navicular bone. There is displacement of the T-N joint noted on lateral view. Fracture and fragmentation of the navicular bone with likely CC joint fracture involvement consistent with charcot. There is slight declination of the talar bone seem on lateral view. Minimal change from previous x-ray views. ASSESSMENT: ICD-10-CM 1. Charcot's arthropathy M14.60 2. Pain in both feet M79.671 M79.672 3. Open wound of right lower leg, subsequent encounter S81.801D 4. Pain of left lower leg M79.662 5. Cellulitis of left leg L03.116 PLAN: I reviewed today's x-rays as above. Given slight redness and persistent pain, I recommended we try additional antibiotic. Augmentin was prescribed. He is to continue with wound care and has tubi gripcompression sleeves which have helped. Nurse to assist him with dressings today. I have spoke with Bernard regarding the need to not weight bear. I have given him prescriptions for devices of which he has yet to obtain. We will continue to work on this though. He would like to consider a surgery referral although I do not feel he is an ideal surgical candidate and I have discussed this case with F&A ortho Dr. Valdez at [facility] in the past. I did place referral to him for Bernard to get his opinion though. I also recommended a 3 week follow up with me for reassessment unless plan changes. Orders Placed This Encounter Medications Amoxicillin-Pot Clavulanate 875-125 MG Oral Tablet (Augmentin) Sig: Take 1 Tablet by mouth in the morning and 1 Tablet before bedtime. Dispense: 20 Tablet Refill: 0 Suzanne Person DPM 05/17/2023 10:35 AM [address] [place] [address] documented in this encounter Nursing Notes * Gracie Bergman MED ASSIST - 05/17/2023 10:01 AM EST Pt presents today for bilateral feet pain. Pt states he feels like his feet are getting worse. Leftfoot 5/10, right foot 2/10 documented in this encounter Plan of Treatment Upcoming Encounters Date Type Department Care Team (Late st Contact Info) Description 05/22/2023 1:45 PM EST Office Visit Orthopaedics Nirav Chu [address] [place] [address] Pollo Valdez MD [address] [facility] [place] [address] 05/28/2023 11:15 AM EST Office Visit Ophthalmology, [address] [place] [address] Burton Schroeder, DO [address] [place] [address] 06/17/2023 10:20 AM EST Office Visit Podiatry [facility] [address] [place] [address] Suzanne Person, DPCaitie 400 [facility] [place] [address] Pending Results Name Type Priority Associated Diagnoses Date /Time XR FOOT 3 OR MORE VIEWS Medical Imaging Routine Charcot's arthropathy 05/17/2023 10:18 AM EST Scheduled Referrals Name Type Priority Associated Diagnoses Order Schedule ORTHOPAEDICS REFERRAL OP Referral Within 10 days (routine) Charcot's arthropathy Pain in both feet Open wound of right lower leg, subsequent encounter Pain of left lower leg Cellulitis of left leg Ordered: 05/17/2023 Health Maintenance Due Date Last Done Comments [...] as of this encounter Visit Diagnoses Diagnosis Charcot's arthropathy- Primary Tabes dorsalis Pain in both feet Pain in limb Open wound of right lower leg, subsequent encounter Pain of left lower leg Pain in limb Cellulitis of left leg Cellulitis and abscess of leg, except foot documented in this encounter Advance Directives Latest Code Status on File Code Status Date Activated Date Inactivated Comments Full Code 02/14/2019 10:34 PM 02/20/2019 3:48 PM This order reflects the patients wishes and were consensually agreed upon. Question Answer Comments Discussion of Advance Directives occurred with: Not Discussed Care Teams Childcare Teacher Relationship Specialty Start Date End Date Ryan Leyva MD [address] [facility] [place] [address] PCP - General Family Medicine 07/17/22 documented as of this encounter
--- OUTSIDE RECORDS SUMMARY | 2023-06-04 16:38 | External Medical Summary | Summary of Care ---
Author Name Unknown Organization [facility] Address [address] [place] [address] Phone [phone] Care Team Providers Care Patient Information Coordinator Name Role Phone Ryan Leyva MD Primary Care Provider [phone] Reason for Visit * Reason Comments eRx-Medication Refill Encounter Details Date Type Department Care Team (Late st Contact Info) Description 05/21/2023 Refill Family Practice [facility] [address] [place] [address] Ryan Leyva MD [address] [place] [address] JOB (generalized anxiety disorder) Allergies No known active allergiesdocumented as of [...] 01/26/2023 Active clonazePAM 0.5 MG Oral Tablet (KlonoPIN)Indicatio ns:JOB (generalized anxiety disorder) Take 1 Tablet by mouth 2 times a day as needed for Anxiety. 60 Tablet 1 03/29/2023 Active Pregabalin 50 MG Oral Capsule (Lyrica)Indications :History of drug abuse ([facility]) take 1 capsule by mouth in the [...] EST Office Visit Orthopaedics Nirav Chu [address] [facility] [place] [address] Pollo Valdez MD [address] [place] [facility] [place] [address] 05/28/2023 11:15 AM EST Office Visit Ophthalmology, [facility] [address] [place] [address] Burton Schroeder DO [address] [place] [address] 06/17/2023 10:20 AM EST Office Visit Podiatry [facility] [address] [place] [address] Suzanne Person, DPCaitie [address] [facility] [place] [address] Health Maintenance Due Date Last Done Comments [...] as of this encounter Visit Diagnoses Diagnosis JOB (generalized anxiety disorder) Generalized anxiety disorder documented in this encounter Advance Directives Latest Code Status on File Code Status Date Activated Date Inactivated Comments Full Code 02/14/2019 10:34 PM 02/20/2019 3:48 PM This order reflects the patients wishes and were consensually agreed upon. Question Answer Comments Discussion of Advance Directives occurred with: Not Discussed Care Teams Patient Information Coordinator Relationship Specialty Start Date End Date Ryan Leyva MD [address] [place] [address] PCP - General Family Medicine 07/17/22 documented as of this encounter
--- OUTSIDE RECORDS SUMMARY | 2023-06-04 16:38 | External Medical Summary | Summary of Care ---
Author Name Unknown Organization [facility] Address [address] [place] [address] Phone [phone] Care Team Providers Care Territory Sales Consultant Name Role Phone Farida Leyva MD Primary Care Provider [phone] Reason for Visit * Reason Comments NEW PATIENT Patient presents wit h concerns with a a rash on his left forearm. He states that it started out in a round resighini that has now blistered and spread all the way up his forearm. He also has it on both knees. All areas are tender and sore. This all began 2 weeks ago. He has used triamcinolone and silver sulfadiazine cream without success. He states that he also has jock itch that occurred at the same time. He states he now has no skin left there and it is blistering * Evaluate & Treat - Unlimited Visits (Within 3 days (urgent)) - Pending Review Specialty Diagnoses / Procedures Referred By Stefanie arango Referred To Contact Dermatology Diagnoses Rash and nonspecific skin eruption Scald burn Sher Scott MD 200 [facility] [place] [address] Referral ID Status Reason Start Date Expiration Date Visits Requested Visits Authorized [id number] Pending Review Specialty Services Required [phone] Encounter Details Date Type Department Care Team (Late st Contact Info) Description 05/31/2023 1:45 PM EST Office Visit Dermatology [place] [facility] [place] [address] Jason Bautista MD 200 [facility] [place] [address] Rash and nonspecific skin eruption* Allergies No known active allergiesdocumented as of this encounter (statuses as of 06/01/2023) Medications Medication Sig Dispensed Refills Start Date [...] Oral Capsule (Lyrica)Indicatio ns:History of drug abuse (HCC) take 1 capsule [...] % External Cream (Lotrisone) 0 05/25/2023 Active Sulfamethoxazole- Trimethoprim 400-80 MG Oral Tablet (Bactrim) Take 1 Tablet by mouth in the morning. Take three times a week. 0 07/17/2022 05/31/2023 Discontinue d(End of Procedure) Amoxicillin-Pot Clavulanate 875-125 MG Oral Tablet (Augmentin) Take 1 Tablet by mouth in the morning and 1 Tablet before bedtime. 20 Tablet 0 05/17/2023 05/31/2023 Discontinue d(End of Procedure) Silvadene 1 % External Cream Apply topically [...] as of this encounter (statuses as of 06/01/2023) Active Problems Problem Noted Date Diagnosed Date [...] as of this encounter (statuses as of 06/01/2023) Resolved Problems Problem Noted Date Diagnosed Date [...] as of this encounter (statuses as of 06/01/2023) Immunizations Name Administration Dates Next Due COVID-19 [...] as of this encounter Progress Notes * Jason Bautista MD - 05/31/2023 12:40 PM EST SUBJECTIVE: Chief Complaint: Chief Complaint Patient presents with NEW PATIENT Patient presents with concerns with a a rash on his left forearm. He states that it started out in a round resighini that has now blistered and spread all the way up his forearm. He also has it on both knees. All areas are tender and sore. This all began 2 weeks ago. He has used triamcinolone and silver sulfadiazine cream without success. He states that he also has jock itch that occurred at the same time. He states he now has no skin left there and it is blistering HPI: Bernard Jones is a 37 year old male seen for rash. Going on about 2 weeks. Started on left dionicio a small spot. Getting bigger and blistering. Moving up the arm and now getting it on legs as well. Painful. Using silvadene on it which seems to be healing. May have gotten steam burn on left forearm but denies involvement elsewhere. Complicated medical history. Kidney transplant, on immunosuppressants, and Bactrim which he takes three times per week. Receives methadone History of diabetes Denies ulcers in mouth Otherwise denies any recent change in his health OBJECTIVE: GEN: Alert and cooperative. Feet are wrapped and in braces. SKIN: Problem focused exam reveals: Desquamated pink/red plaques with scattered focal erosions/ulcerations on left forearm, knees, and scrotum. More purpuric on knees with hemorrhagic bullae. Almost psoriasiform plaque on left elbow ASSESSMENT/PLAN: Rash, ddx: Ecthyma, ACD, drug induced (FDE vs doubt SJS), doubt tinea, antiphospholipid ab, doubt calciphylaxis, immunobullous? - will get initial workup labs for retiform purpura including SOCORRO, ANCA, ESR, CRP, CBC, CMP, and cryoglobulins - Recommend biopsy to establish diagnosis - Will wait on further treatment until pathology report is reviewed - Culture today, but patient denies fevers and feels otherwise well so will not add any empiric antibiotics at this time - With consideration of evolving SJS, discussed with patient that he should urgently discuss with his transplant team d/c lasha. Patient tells me he will talk with them today - Concern for immunbullous, will get DIF as well - can continue silvadene for now Procedure - Tangential biopsy of skin x2 (H&E, DIF) Biopsy by shave was recommended for the rash noted above to establish and confirm diagnosis. The procedure, risks, benefits, alternatives and expected outcomes were discussed with the patient and consent was obtained. Time out called. Patient identified, procedure verified, site(s) identified and verified. Patient and staff present in agreement. Area prepped with alcohol and anesthetized using 0.5% lidocaine with epinephrine at 1:200,000 concentration. Biopsy of rash(s) performed. 20% AlCl and bandaging applied. Specimen(s) sent to pathology. Patient instructed in routine post-op care. Location: Left forearm x2 Jason Bautista MD Ref: SHER SCOTT[[id number]] [facility] [address] (office) [phone] (fax) PCP: FARIDA LEYVA 132 [facility] [place] [address] [phone] documented in this encounter Plan of Treatment Upcoming Encounters Date Type Department Care Team (Late st Contact Info) Description 06/11/2023 10:30 AM EST Office Visit Dermatology [facility] 200 [facility] [place] [address] Jason Bautista MD 200 [facility] [place] [address] 06/17/2023 10:20 AM EST Office Visit Podiatry [facility] 132 [facility] [place] [address] Suzanne Person, DPCaitie [address] [place] [address] 07/02/2023 7:45 AM EST Office Visit Ophthalmology, [facility] [place] [address] Burton Schroeder DO 132 [facility] [place] [address] Pending Results Name Type Priority Associated Diagnoses Date /Time SURGICAL PATHOLOGY Pathology Routine Rash and nonspecific skin eruption 05/31/2023 2:20 PM EST CULTURE, WOUND, SUPERFICIAL, AEROBIC Lab Routine Rash and nonspecific skin eruption 05/31/2023 3:25 PM EST Scheduled Orders Name Type Priority Associated Diagnoses Orde r Schedule CRYOGLOBULIN REFLEX PROFILE Lab Routine Rash and nonspecific skin eruption Expected: 05/31/2023, Expires: 05/31/2024 ANTINUCLEAR ANTIBODY (SOCORRO) EIA SCREEN WITH REFLEX AB QUANT Lab Routine Rash and nonspecific skin eruption Expected: 05/31/2023, Expires: 05/31/2024 ANCA REFLEX PANEL Lab Routine Rash and nonspecific skin eruption Expected: 05/31/2023, Expires: 05/31/2024 CBC WITH WBC DIFFERENTIAL Lab Routine Rash and nonspecific skin eruption Expected: 05/31/2023, Expires: 05/31/2024 COMPREHENSIVE METABOLIC PANEL Lab Routine Rash and nonspecific skin eruption Expected: 05/31/2023, Expires: 05/31/2024 ERYTHROCYTE SEDIMENTATION RATE (ESR) Lab Routine Rash and nonspecific skin eruption Expected: 05/31/2023, Expires: 05/31/2024 CRP (INFLAMMATORY MARKER) Lab Routine Rash and nonspecific skin eruption Expected: 05/31/2023, Expires: 05/31/2024 Health Maintenance Due Date Last Done Comments [...] Not on filedocumented as of this encounter Procedures Procedure Name Priority Date/Time Associated Diagnosis Comments CULTURE, WOUND, SUPERFICIAL, AEROBIC Routine 05/31/2023 3:25 PM EST Rash and nonspecific skin eruption documented in this encounter Visit Diagnoses Diagnosis Rash and nonspecific skin eruption- Primary Rash and other nonspecific skin eruption documented in this encounter Advance Directives Latest Code Status on File Code Status Date Activated Date Inactivated Comments Full Code 02/14/2019 10:34 PM 02/20/2019 3:48 PM This order reflects the patients wishes and were consensually agreed upon. Question Answer Comments Discussion of Advance Directives occurred with: Not Discussed Care Teams Territory Sales Consultant Relationship Specialty Start Date End Date Farida Leyva MD 132 [facility] [place] [address] PCP - General Family Medicine 07/17/22 documented as of this encounter
--- OUTSIDE RECORDS SUMMARY | 2023-06-04 16:38 | External Medical Summary | Summary of Care ---
Author Name Unknown Organization [facility] Address [address] [place] [address] Phone [phone] Care Team Providers Care Clinical Trial Assistant Name Role Phone Ryan Leyva MD Primary Care Provider [phone] Reason for Visit * Reason Comments Outpatient Testing Encounter Details Date Type Department Care Team (Late st Contact Info) Description 05/31/2023 1:20 PM EST Laboratory Laboratory [facility] [address] [place] [id number] [facility] Lab Scenery [address] [place] [address] Type 1 diabetes mellitus with hemoglobin A1c goal of less than 7.0% ([facility]); Rash and nonspecific skin eruption Allergies No [...] Oral Capsule (Lyrica)Indications :History of drug abuse ([facility]) take 1 capsule by mouth in the [...] 05/31/2023 1:45 PM EST Office Visit Dermatology [facility] [address] [place] [place] [address] Jason Bautista MD [address] [place] [address] Rash and nonspecific skin eruption* 06/17/2023 10:20 AM EST Office Visit Podiatry [facility] 132 [facility] [place] [address] Suzanne Person, NEENA [address] [place] [address] [place] [id number] 07/02/2023 7:45 AM EST Office Visit Ophthalmology, [facility] [address] [place] [address] Burton Schroeder DO [address] [place] [address] Scheduled Orders Name Type Priority Associated Diagnoses [...] Directives occurred with: Not Discussed Care Teams Clinical Trial Assistant Relationship Specialty Start Date End Date Ryan Leyva MD 132 [facility] [place] [address] PCP - General Family Medicine 07/17/22 documented as of this encounter
--- OUTSIDE RECORDS SUMMARY | 2023-06-04 16:38 | External Medical Summary | Summary of Care ---
Author Name Unknown Organization [facility] Address [address] [place] [address] Phone [phone] Care Team Providers Care Avionics Installer Name Role Phone Farida Do MD Primary Care Provider [phone] Reason for Visit * Reason Onset Date Comments Medication Refill 05/20/2023 Encounter Details Date Type Department Care Team (Late st Contact Info) Description 05/20/2023 Refill Family Practice [facility] [address] [facility] [place] [address] Farida Do MD [address] [place] [id number] JOB (generalized anxiety disorder) Allergies No known [...] by mouth in the morning. 0 Active Sulfamethoxazole -Trimethoprim 400-80 MG Oral Tablet (Bactrim) Take 1 [...] Active Rosuvastatin Calcium 10 MG Oral Tablet (Crestor)Indicat ions:Type 1 diabetes mellitus with hemoglobin A1c goal of less than 7.0% ([facility]) TAKE 1 TABLET BY MOUTH EVERY MORNING 90 Tablet 0 01/26/2023 Active Pregabalin 50 MG Oral Capsule (Lyrica)Indicati ons:History of drug abuse ([facility]) take 1 capsule by mouth in the morning, 1 capsule at noon and 1 capsule before bedtime. 90 Capsule 0 04/22/2023 Active Amoxicillin-Pot Clavulanate 875-125 MG Oral Tablet (Augmentin) Take 1 Tablet by mouth in the morning and 1 Tablet before bedtime. 20 Tablet 0 05/17/2023 Active clonazePAM 0.5 MG Oral Tablet (KlonoPIN)Indica tions:JOB (generalized anxiety disorder) Take 1 Tablet by mouth 2 times a day as needed for Anxiety. 60 Tablet 1 05/22/2023 Active clonazePAM 0.5 MG Oral Tablet (KlonoPIN)Indica tions:JOB (generalized anxiety disorder) Take 1 Tablet by mouth 2 times a day as needed for Anxiety. 60 Tablet 1 03/29/2023 3 Discontinued(Ref ill) predniSONE 20 MG Oral Tablet (Deltasone) Take [...] encounter Miscellaneous Notes * Telephone Encounter - Farida Do MD - 05/22/2023 7:52 AM ESTSigned Prescriptions: Disp Refills clonazePAM 0.5 MG Oral Tablet (KlonoPIN) 60 Tab*1 Sig: Take 1 Tablet by mouth 2 times a day as needed for Anxiety. Authorizing Provider: FARIDA DO * Telephone Encounter - Cathryn Stringer [facility] - 05/22/2023 4:42 AM ESTPending Prescriptions: Disp Refills clonazePAM 0.5 MG Oral Tablet (KlonoPIN) 60 Tab*1 Sig: Take 1 Tablet by mouth 2 times a day as needed for Anxiety. * Telephone Encounter - Cathryn Stringer [facility] - 05/22/2023 4:41 AM EST I have reviewed the patients controlled substance dispensing history in the Prescription Drug Monitoring Program in compliance with the [facility] regulations before prescribing a controlled substance. PDMP checked on 05/22/2023. Pending Prescriptions: Disp Refills clonazePAM 0.5 MG Oral Tablet (KlonoPIN) 60 Tab*1 Sig: Take 1 Tablet by mouth 2 times a day as needed for Anxiety. Last Visit: 04/19/2023 (in office), 01/14/2023 (telemedicine) Next Visit: Visit date not found Date medication was last filled: 04/26/23 Date medication is due for refill: 05/25/23 Pharmacy: [id number] [address] [facility] Is this request for a controlled substance? Yes and Urine Drug Screen Not completed Toxicology results: Results for orders placed or performed during the hospital encounter of 02/14/19 TOX SCREEN, URINE, W/O CONFIRMATION Result Value Amphetamine NEGATIVE Benzodiazepines POSITIVE (A) Cannabinoids NEGATIVE Cocaine Metabolite NEGATIVE HYDROCODONE NEGATIVE Morphine / Codeine NEGATIVE OXYCODONE NEGATIVE METHADONE METABOLITE POSITIVE (A) NOTE: THE ABOVE SCREENING RESULTS ARE PRESUMPTIVE AND CAN ONLY BE USED FOR MEDICAL PURPOSES. CONFIRMATORY TESTING IS AVAILABLE UPON REQUEST. Cutoff Concentration Please approve if appropriate. Thank You, Cathryn Stringer [facility] Clinical Pharmacist [facility] ([facility]) (formerly [facility]) [phone] 05/22/2023, 4:41 AM * Telephone Encounter - Rosa Singleton [facility] - 05/21/2023 9:43 AM EST Confirmed with pharmacy 0 refills remaining from 03/29 Rx. Postponing request to 05/22. Rx was initially filled 03/29 #12 tabs + #48 tab (different mfr). This separate 48 tab fill is not showing up on PDMP. Thank you, Rosa Singleton, PharmD Clinical Pharmacist [facility] ([facility]) ([facility]) 05/21/23 9:48 AM [phone] documented in this encounter Plan of Treatment Upcoming Encounters Date Type Department Care Team (Late st Contact Info) Description 05/22/2023 1:45 PM EST Office Visit Orthopaedics [facility] [address] [place] [phone] Pollo Valdez MD [address] [place] [address] 05/28/2023 11:15 AM EST Office Visit Ophthalmology, [facility] 132 [facility] [place] [address] Burton Schroeder, 132 [facility] [place] [address] 06/17/2023 10:20 AM EST Office Visit Podiatry [facility] 132 [facility] [place] [address] Suzanne Person DPM [address] [facility] [place] [address] Health Maintenance Due Date Last Done Comments [...] Directives occurred with: Not Discussed Care Teams Avionics Installer Relationship Specialty Start Date End Date Farida Do MD 132 [place] [address] PCP - General Family Medicine 07/17/22 documented as of this encounter
--- OUTSIDE RECORDS SUMMARY | 2023-06-04 16:39 | External Medical Summary | Summary of Care ---
Author Name Unknown Organization [facility] Address [address] [place] [address] Phone [phone] Care Team Providers Care Non Garment Sewing Machine Operator Name Role Phone Ryan Leyva MD Primary Care Provider [phone] Encounter Details Date Type Department Care Team (Late st Contact Info) Description 04/29/2023 10:30 AM EST Nurse Only [facility]opaedics [facility] 132 [place] [address] [facility], Nurse Ortho [facility] [address] [place] [address] Allergies No known active allergiesdocumented as of this encounter (statuses as of 04/29/2023) Medications Medication Sig Dispensed Refills Start Date [...] for Anxiety. 60 Tablet 1 03/29/2023 Active Amoxicillin-Pot Clavulanate 875-125 MG Oral Tablet (Augmentin) Take 1 Tablet by mouth in the morning and 1 Tablet before bedtime. 20 Tablet 0 04/19/2023 Active predniSONE 20 MG Oral Tablet (Deltasone) Take 4 tabs by mouth daily for 2 days, 3 tabs daily for 2 days, 2 tabs daily for 2 days, 1 tab daily for 2 days 20 Tablet 0 04/19/2023 Active Pregabalin 50 MG Oral Capsule (Lyrica)Indications: History of drug abuse ([facility]) take 1 capsule by mouth in the morning, 1 capsule at noon and 1 capsule before bedtime. 90 Capsule 0 04/22/2023 Active Hospital, Clinic, or Other Facility Administered [...] eyes associated with type 1 diabetes mellitus ([facility]),Vitreous hemorrhage of left eye (HCC) 1.5 mg PERINEURAL PRN 06/29/2022 06/29/2023 Active documented as of this encounter (statuses as of 04/29/2023) Active Problems Problem Noted Date Diagnosed Date [...] as of this encounter (statuses as of 04/29/2023) Resolved Problems Problem Noted Date Diagnosed Date [...] as of this encounter (statuses as of 04/29/2023) Immunizations Name Administration Dates Next Due COVID-19 [...] Yes 10/28/2018 documented as of this encounter Nursing Notes * Jaymie Meyer LPN - 04/29/2023 11:20 AM EST Per previous phone encounter, pt is requesting removal of TCC LLE; states he is having a lot of LLEswelling and pain; states he often has L leg/foot swelling, feels is r/t BP med, plans to call his prescribing DrMoraima documented in this encounter Plan of Treatment Upcoming Encounters Date Type Department Care Team (Late st Contact Info) Description 05/03/2023 10:40 AM EST Office Visit Podiatry [facility] 132 [facility] [place] [address] Suzanne Person, DPCaitie 400 [facility] [place] [address] 05/28/2023 11:15 AM EST Office Visit Ophthalmology, [facility] [address] [place] [address] Burton Schroeder DO [address] [place] [address] Health Maintenance Due Date Last Done Comments [...] Directives occurred with: Not Discussed Care Teams Non Garment Sewing Machine Operator Relationship Specialty Start Date End Date Ryan Leyva MD [address] [place] [address] PCP - General Family Medicine 07/17/22 documented as of this encounter
--- OUTSIDE RECORDS SUMMARY | 2023-06-04 16:39 | External Medical Summary | Summary of Care ---
Author Name Unknown Organization [facility] Address [address] [place] [address] Phone [phone] Care Team Providers Care German Instructor Name Role Phone Ryan Leyva MD Primary Care Provider [phone] Reason for Visit * Reason Onset Date Comments Brace 04/30/2023 Encounter Details Date Type Department Care Team ([facility] st Contact Info) Description 04/30/2023 Telephone Podiatry, [address] [address] Suzanne Person DPM [address] [place] [address] Brace Allergies No known active allergiesdocumented as of this encounter (statuses as of 05/01/2023) Medications Medication Sig Dispensed Refills Start Date [...] Oral Capsule (Lyrica)Indications: History of drug abuse ([facility]) take 1 capsule by mouth [...] as of this encounter (statuses as of 05/01/2023) Active Problems Problem Noted Date Diagnosed Date [...] as of this encounter (statuses as of 05/01/2023) Resolved Problems Problem Noted Date Diagnosed Date [...] as of this encounter (statuses as of 05/01/2023) Immunizations Name Administration Dates Next Due COVID-19 [...] encounter Miscellaneous Notes * Telephone Encounter - Shannon Mensah - 05/01/2023 9:21 AM EST Spoke with Bernard and rescheduled to 05/08 at 10:20 per Raza * Telephone Encounter - Linda North OSA - 04/30/2023 1:20 PM EST Pt called to see if he can be seen a different day since his transportation is closed Saturday. If not, pt said he will figure something out. Please advise. documented in this encounter Plan of Treatment Upcoming Encounters Date Type Department Care Team (Late st Contact Info) Description 05/06/2023 12:00 PM EST Imaging Vascular Lab, [facility] II 2nd Floor, [place] 132 [facility] [place] [address] 05/08/2023 10:20 AM EST Office Visit Podiatry [facility] 132 [facility] [place] [address] Suzanne Person, DPM 400 [facility] [place] [address] 05/28/2023 11:15 AM EST Office Visit Ophthalmology, [facility] 132 [facility] [place] [address] Burton Schroeder, DO 132 [facility] [place] [address] Health Maintenance Due Date Last Done Comments [...] Directives occurred with: Not Discussed Care Teams German Instructor Relationship Specialty Start Date End Date Ryan Leyva MD 132 [facility] [place] [address] PCP - General Family Medicine 07/17/22 documented as of this encounter
--- OUTSIDE RECORDS SUMMARY | 2023-06-04 16:39 | External Medical Summary | Summary of Care ---
Author Name Unknown Organization [facility] Address [address] [place] [address] Phone [phone] Care Team Providers Care Tufter Operator Name Role Phone Ryan Leyva MD Primary Care Provider [phone] [phone] Encounter Details Date Type Department Care Team (Late st Contact Info) Description 04/29/2023 10:30 AM EST Nurse Only [facility] [address] [place] [address] [facility], Nurse Ortho [facility] [address] [place] [address] Allergies No known active allergiesdocumented as of [...] Oral Capsule (Lyrica)Indications: History of drug abuse ([facility]) take 1 capsule by mouth in [...] eyes associated with type 1 diabetes mellitus ([facility]),Vitreous hemorrhage of left eye (HCC) 1.5 mg [...] as of this encounter Nursing Notes * Rashmi Toledo LPN - 04/29/2023 11:20 AM EST Per previous phone encounter, pt is requesting removal of TCC LLE; states he is having a lot of LLEswelling and pain; states he often has L leg/foot swelling, feels is r/t BP med, plans to call his prescribing Dr. documented in this encounter Miscellaneous Notes * Addendum Note - Rashmi Toledo LPN - 04/29/2023 2:10 PM ESTAddended by: RASHMI TOLEDO on: 04/29/2023 02:10 PM Modules accepted: Orders documented in this encounter Plan of Treatment Upcoming Encounters Date Type Department Care Team (Late st Contact Info) Description 05/03/2023 10:40 AM EST Office Visit Podiatry [facility] [address] [place] [address] Suzanne Person, NEENA [address] [facility] [place] [address] 05/28/2023 11:15 AM EST Office Visit Ophthalmology, [facility] [address] [place] [address] Burton Schroeder, [address] [place] [address] Health Maintenance Due Date Last Done Comments [...] Diagnoses Diagnosis Charcot's arthropathy- Primary Tabes dorsalis documented in this encounter Advance Directives Latest Code Status on File Code Status Date Activated Date Inactivated Comments Full Code 02/14/2019 10:34 PM 02/20/2019 3:48 PM This order reflects the patients wishes and were consensually agreed upon. Question Answer Comments Discussion of Advance Directives occurred with: Not Discussed Care Teams Tufter Operator Relationship Specialty Start Date End Date Ryan Leyva MD [address] [place] [address] PCP - General Family Medicine 07/17/22 documented as of this encounter
--- OUTSIDE RECORDS SUMMARY | 2023-06-04 16:39 | External Medical Summary | Summary of Care ---
Author Name Unknown Organization [facility] Address [address] [place] [address] Phone [phone] Care Team Providers Care Western Tack Assembly Line Worker Name Role Phone Ryan Leyva MD Primary Care Provider [phone] [phone] Reason for Visit * Reason Comments Follow Up Bilateral feet Encounter Details Date Type Department Care Team (Late st Contact Info) Description 04/26/2023 10:40 AM EST Office Visit Podiatry [facility] [address] [place] [address] Suzanne Person, DPCaitie [address] [place] [address] Charcot's arthropathy*; Pain in both feet; Multiple open wounds of left lower leg; Cellulitis of left lower leg Allergies No known active allergiesdocumented as of this encounter (statuses as of 04/26/2023) Medications Medication Sig Dispensed Refills Start Date [...] Oral Capsule (Lyrica)Indications: History of drug abuse ([facility]) take 1 capsule by mouth [...] as of this encounter (statuses as of 04/26/2023) Active Problems Problem Noted Date Diagnosed Date [...] as of this encounter (statuses as of 04/26/2023) Resolved Problems Problem Noted Date Diagnosed Date [...] as of this encounter (statuses as of 04/26/2023) Immunizations Name Administration Dates Next Due COVID-19 [...] Progress Notes * Suzanne Person, DPM - 04/26/2023 12:35 PM EST Podiatry Established Note [facility] Name: Bernard Jones : 1985 Date: 04/26/2023 REASON FOR VISIT: sooner follow up - bilateral foot pain SUBJECTIVE: This patient is a 37 year old male who presents today for follow up of bilateral acute charcot arthropathy of feet centered around the [place] CC joints. Given bilateral nature, I suggested hecontinue ASA daily. He did well with the TCC on the right. He reports left is worse than the right.This side he has been using a camwalker due to leg wounds and edema. He continues the oral antibiotic that I prescribed. He feels this helped. He has a right lower leg wound of which he has been using a telfa dressing. He denies much pain on the right side today but notes medial hindfoot pain on the left. He inquires about a motorized scooter. He reports trying to use a wheelchair or crutches hits is arm fistula site. He continues to use tobacco products and is using chew at today's visit. 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 Musculoskeletal: Slight midfoot pronunciation of both sides, more evident on right. He reports pain with palpation of the medial midfoot and hindfoot left only. Dermatological: Multiple small open wounds to the left lower leg appear resolving. Erythema also improved. Open wound to the right cagle. DIAGNOSTIC STUDIES: X-ray, bilateral foot, 04/26/2023 This includes three weight bearing x-rays AP [...] seem on lateral view. Minimal change from 04/19/23 views. ASSESSMENT: 1. Charcot's arthropathy 2. Pain in both feet 3. Multiple open wounds of left lower leg 4. Cellulitis of left lower leg PLAN: I personally reviewed today's bilateral foot x-rays as above. We once again reviewed charcot and treatment plan. I recommended we cast the left today. Nurse applied total contact cast. On the right, she is to apply adaptic, DSD, and camwalker. He may change his dressing daily. We will plan on a oneweek follow up and as long as doing ok, we will avoid x-rays at that appointment. I did provide himtwo prescriptions today. One for a knee scooter and one for a motorized scooter. The knee scooter is if he cannot obtain a motorized scooter right away. He ideally should be non weight bearing bilaterally. He cannot use standard devices due to pressure on his UE fistula/surgery site. He is to continue ASA which is a baseline medication for him, but is to serve as DVT prophylaxis as well. Will plan on a 1 week recheck. Suzanne Person DPM documented in this encounter Nursing Notes * Jaymie Meyer LPN - 04/26/2023 10:35 AM EST Pt presents for 1 week follow up bilateral feet. Wearing TCC R LE, CAM boot L foot. Using crutches for partial weight bearing. documented in this encounter Plan of Treatment Upcoming Encounters Date Type Department Care Team (Late st Contact Info) Description 05/03/2023 10:40 AM EST Office Visit Podiatry [facility] [address] [facility] [place] [address] Suzanne Person DPM [address] [place] [address] [place] [id number] 05/28/2023 11:15 AM EST Office Visit Ophthalmology, [facility] [address] [place] [address] Burton Schroeder DO [address] [place] [address] Pending Results Name Type Priority Associated Diagnoses Date /Time XR FOOT 3 OR MORE VIEWS Medical Imaging Routine Charcot's arthropathy 04/26/2023 10:52 AM EST Health Maintenance Due Date Last Done Comments [...] Pain in both feet Pain in limb Multiple open wounds of left lower leg Cellulitis of left lower leg Cellulitis and abscess of leg, except foot documented in this encounter Advance Directives Latest Code Status on File Code Status Date Activated Date Inactivated Comments Full Code 02/14/2019 10:34 PM 02/20/2019 3:48 PM This order reflects the patients wishes and were consensually agreed upon. Question Answer Comments Discussion of Advance Directives occurred with: Not Discussed Care Teams Western Tack Assembly Line Worker Relationship Specialty Start Date End Date Ryan Leyva MD [address] [facility] [place] [address] PCP - General Family Medicine 07/17/22 documented as of this encounter
--- OUTSIDE RECORDS SUMMARY | 2023-06-04 16:39 | External Medical Summary | Summary of Care ---
Author Name Unknown Organization [facility] Address [address] [place] [address] Phone [phone] Care Team Providers Care Transformer Tester Name Role Phone Ryan Leyva MD Primary Care Provider [phone] [phone] Encounter Details Date Type Department Care Team (Late st Contact Info) Description 04/29/2023 10:30 AM EST [facility] 132 [place] [address] [facility], Nurse Ortho [facility] [address] [place] [address] Allergies No known active allergiesdocumented as of [...] Oral Capsule (Lyrica)Indications: History of drug abuse ([facility]) take 1 capsule by mouth in the [...] eyes associated with type 1 diabetes mellitus ([facility]),Vitreous hemorrhage of left eye (HCC) 1.5 mg [...] med, plans to call his prescribing Dr. Total contact cast removed without difficulty, pt's skin is purple - red in appearance, same as before total contact cast was applied. Asked pt to go to ER if swelling continues, or increases. documented in this encounter Miscellaneous Notes * Addendum Note - Rashmi Toledo LPN - 04/29/2023 2:10 PM ESTAddended by: RASHMI TOLEDO on: 04/29/2023 02:10 PM Modules accepted: Orders documented in this encounter Plan of Treatment Upcoming Encounters Date Type Department Care Team (Late st Contact Info) Description 05/03/2023 10:40 AM EST Office Visit Podiatry [facility] [address] [place] [address] Suzanne Person, DPM [address] [facility] [place] [address] 05/28/2023 11:15 AM EST Office Visit Ophthalmology, [facility] [address] [place] [address] Burton Schroeder, [address] [place] [address] Health Maintenance Due Date Last Done Comments [...] Directives occurred with: Not Discussed Care Teams Transformer Tester Relationship Specialty Start Date End Date Ryan Leyva MD [address] [place] [address] PCP - General Family Medicine 07/17/22 documented as of this encounter
--- OUTSIDE RECORDS SUMMARY | 2023-06-04 16:39 | External Medical Summary | Summary of Care ---
Author Name Unknown Organization [facility] Address [address] [place] [address] Phone [phone] Care Team Providers Care Manager Math Name Role Phone Ryan Leyva MD Primary Care Provider [phone] [phone] Reason for Visit * Reason Comments Follow Up Bilateral feet Encounter Details Date Type Department Care Team (Late st Contact Info) Description 05/08/2023 10:20 AM EST Office Visit Podiatry [facility] [address] [place] [address] Suzanne Person, DPCaitie [address] [place] [address] Charcot's arthropathy*; Pain in both feet; Open wound of right lower leg, subsequent encounter; Numbness in feet Allergies No known active allergiesdocumented as of this encounter (statuses as of 05/08/2023) Medications Medication Sig Dispensed Refills Start Date [...] hemoglobin A1c goal of less than 7.0% ([facility]) TAKE 1 TABLET BY MOUTH EVERY MORNING 90 Tablet 0 01/26/2023 Active clonazePAM 0.5 MG Oral Tablet (KlonoPIN)Indicat ions:JOB (generalized anxiety disorder) Take 1 Tablet by mouth 2 times a day as needed for Anxiety. 60 Tablet 1 03/29/2023 Active Pregabalin 50 MG Oral Capsule (Lyrica)Indicatio ns:History of drug abuse ([facility]) take 1 capsule by mouth in [...] Tablet before bedtime. 20 Tablet 0 04/19/2023 05/08/2023 Discontinued (Medication List Clean Up) Hospital, Clinic, or Other Facility Administered Medication [...] as of this encounter (statuses as of 05/08/2023) Active Problems Problem Noted Date Diagnosed Date [...] as of this encounter (statuses as of 05/08/2023) Resolved Problems Problem Noted Date Diagnosed Date [...] as of this encounter (statuses as of 05/08/2023) Immunizations Name Administration Dates Next Due COVID-19 [...] this encounter Progress Notes * Suzanne Person, NEENA - 05/08/2023 9:55 AM EST Podiatry Established Note [facility] Name: Bernard Jones : 1985 Date: 05/08/2023 REASON FOR VISIT: sooner follow up - bilateral foot pain SUBJECTIVE: This patient is a 37 year old male who presents today for follow up of bilateral acute charcot arthropathy of feet centered around the [place] CC joints. He presents today partial weight bearing with bilateral camwalkers and crutches. I had prescribed a motorized scooter. He was told this would have to be ordered by a MD or DO. He has a phone call out to his PCP. He continues to complain of pain. This is centralized to the medial foot and ankle. He notes pain to both sides but the left is worse. He does seem less tender on the left when I reflect back to past appointment and he agrees.He did come in on 04/29 and had a total contact cast cut off. I had ordered a venous duplex US which was negative for a blood clot. He is taking aspirin. He admits, he feels he is doing too much. He o ften has to take his dog out and walks a little. His left leg wounds have healed, but right anterior cagle wound is open. He is using aquacel or similar product with improvement. Past Medical History: Diagnosis Date Diabetic Charcot foot ([facility]) 04/19/2023 ESRD (end stage renal disease) ([facility]) 12/16/2017 JOB (generalized anxiety disorder) 10/28/2022 Hepatitis C 2016 unknown if treated History of drug abuse (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) 09/05/2016 Dr Schroeder Overweight (BMI 25.0-29.9) 01/12/2023 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 ([facility]) 07/16/2022 Type 1 diabetes mellitus ([facility]) 1990 Venous stasis of both lower extremities [...] left lower leg appear to be healed over. Open wound to the right cagle which has no odor, drainage, or erythema.. DIAGNOSTIC STUDIES: X-ray, bilateral foot, 04/26/2023, reviewed at previous encounter This includes three weight bearing x-rays AP [...] view. Minimal change from 04/19/23 views. ASSESSMENT: ICD-10-CM 1. Charcot's arthropathy M14.60 2. Pain in both feet M79.671 M79.672 3. Open wound of right lower leg, subsequent encounter S81.801D 4. Numbness in feet R20.0 PLAN: Bernard has remained stable although unable to limit weight bearing or be fully non weightbearing. I will CC this chart with a message to PCP regarding motorized scooter. He is to continue aquacel or similar dressing to the right leg wound. Nurse applied dry gauze today with bilateral tubi fisher for light compression. He is to continue to limit weight bearing in the camwalkers. I will plan on 1 week recheck with x-rays. Suzanne Person DPM 05/08/2023 10:52 AM Podiatry [facility] documented in this encounter Nursing Notes * Jaymie Meyer LPN - 05/08/2023 9:45 AM EST Pt presents for 1 week follow up bilateral feet. Wearing CAM boots, using crutches. documented in this encounter Plan of Treatment Upcoming Encounters Date Type Department Care Team (Late st Contact Info) Description 05/17/2023 10:00 AM EST Office Visit Podiatry [facility] [address] [facility] [place] [address] Suzanne Person DPM [address] [place] [address] [place] [address] 05/28/2023 11:15 AM EST Office Visit Ophthalmology, [facility] [address] [place] [address] Burton Schroeder DO [address] [place] [address] Health Maintenance Due Date Last Done Comments [...] wound of right lower leg, subsequent encounter Numbness in feet Disturbance of skin sensation documented in this encounter Advance Directives Latest Code Status on File Code Status Date Activated Date Inactivated Comments Full Code 02/14/2019 10:34 PM 02/20/2019 3:48 PM This order reflects the patients wishes and were consensually agreed upon. Question Answer Comments Discussion of Advance Directives occurred with: Not Discussed Care Teams Manager Math Relationship Specialty Start Date End Date Ryan Leyva MD [address] [place] [address] PCP - General Family Medicine 07/17/22 documented as of this encounter
--- OUTSIDE RECORDS SUMMARY | 2023-06-04 16:39 | External Medical Summary | Summary of Care ---
Author Name Unknown Organization [facility] Address [address] [place] [address] Phone [phone] Care Team Providers Care Hand Clipper Name Role Phone Farida Do MD Primary Care Provider [phone] Reason for Visit * Reason Onset Date Comments Medication Refill 05/06/2023 Encounter Details Date Type Department Care Team (Late st Contact Info) Description 05/06/[address] [facility] [address] [place] [address] Farida Do MD [address] [place], [place] [id number] Allergies No known active allergiesdocumented as of this encounter (statuses as of 05/07/2023) Medications Medication Sig Dispensed Refills Start Date [...] hemoglobin A1c goal of less than 7.0% ([facility]) TAKE 1 TABLET BY MOUTH EVERY MORNING [...] before bedtime. 20 Tablet 0 04/19/2023 Active Pregabalin 50 MG Oral Capsule (Lyrica)Indicatio ns:History of drug abuse ([facility]) take 1 capsule by mouth in the morning, 1 capsule at noon and 1 capsule before bedtime. 90 Capsule 0 04/22/2023 Active predniSONE 20 MG Oral Tablet (Deltasone) Take 4 tabs by mouth daily for 2 days, 3 tabs daily for 2 days, 2 tabs daily for 2 days, 1 tab daily for 2 days 20 Tablet 0 05/07/2023 Active predniSONE 20 MG Oral Tablet (Deltasone) Take 4 tabs by mouth daily for 2 days, 3 tabs daily for 2 days, 2 tabs daily for 2 days, 1 tab daily for 2 days 20 Tablet 0 04/19/2023 05/06/2023 Discontinued (Refill) Hospital, Clinic, or Other Facility Administered Medication [...] as of this encounter (statuses as of 05/07/2023) Active Problems Problem Noted Date Diagnosed Date [...] as of this encounter (statuses as of 05/07/2023) Resolved Problems Problem Noted Date Diagnosed Date [...] as of this encounter (statuses as of 05/07/2023) Immunizations Name Administration Dates Next Due COVID-19 [...] Telephone Encounter - Farida Do MD - 05/07/2023 12:59 PM ESTSigned Prescriptions: Disp Refills predniSONE 20 MG Oral Tablet (Deltasone) 20 Tab*0 Sig: Take 4 tabs by mouth daily for 2 days, 3 tabs daily for 2 days, 2 tabs daily for 2 days, 1 tab daily for 2 days Authorizing Provider: FARIDA DO * Telephone Encounter - Jacquie Santos LPN - 05/07/2023 12:40 PM ESTPending Prescriptions: Disp Refills predniSONE 20 MG Oral Tablet (Deltasone) 20 Tab*0 Sig: Take 4 tabs by mouth daily for 2 days, 3 tabs daily for 2 days, 2 tabs daily for 2 days, 1 tab daily for 2 days * Telephone Encounter - Jacquie Santos LPN - 05/07/2023 12:40 PM EST Pending Prescriptions: Disp Refills predniSONE 20 MG Oral Tablet (Deltasone) 20 Tab*0 Sig: Take 4 tabs by mouth daily for 2 days, 3 tabs daily for 2 days, 2 tabs daily for 2 days, 1 tab daily for 2 days Last Visit: 04/19/2023 (in office), 01/14/2023 (telemedicine) Next Visit: Visit date not found Last date the medication was ordered: 04/19/2023 Patient Active Problem List Diagnosis Code Stable proliferative diabetic retinopathy of both eyes associated with type 1 diabetes mellitus ([facility]) E10.3553 HTN, goal below 130/80 I10 Seizure disorder ([facility]) G40.909 Hepatitis C virus infection cured after antiviral drug therapy Z86.19 Kidney replaced by transplant Z94.0 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 ([facility]) Z94.83 JOB (generalized anxiety disorder) F41.1 History of drug abuse ([facility]) F19.11 Overweight (BMI 25.0-29.9) E66.3 Venous stasis of both lower extremities I87.8 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[facility]) F11.20 History of type 1 diabetes mellitus Z86.39 Diabetic Charcot foot (HCC) E11.610 Labs: Lab Results Component Value Date/Time CREATININE - [facility] 6.8 (H) 11/09/2020 07:42 AM CREATININE - [facility] 7.4 (H) 12/07/2019 12:02 PM CREATININE, RANDOM URINE - [facility] 41 12/07/2019 11:47 AM CREATININE-[facility] 0.89 04/04/2023 12:00 AM CREATININE-[facility] LAB 1.07 11/01/2021 10:22 AM Lab Results Component Value Date/Time POTASSIUM - [facility] 4.0 11/09/2020 07:42 AM POTASSIUM - [facility] 4.4 12/07/2019 12:02 PM POTASSIUM-OUTSIDE LAB 4.2 04/04/2023 12:00 AM POTASSIUM-OUTSIDE LAB 4.6 11/01/2021 10:22 AM Lab Results Component Value Date/Time TSH - [facility] 1.53 07/01/1998 12:34 PM Lab Results Component Value Date/Time LDL CHOLESTEROL (CALCULATED) - [facility] 126 12/07/2019 12:02 PM LDL CHOLESTEROL (CALCULATED) - [facility] 172 (H) 10/28/2018 02:56 PM Lab Results Component Value Date/Time ALT - [facility] 20 12/07/2019 12:02 PM Hemoglobin AIC Results: Lab Results Component Value Date/Time HEMOGLOBIN A1C - [facility] 7.1 (H) 11/09/2020 07:43 AM HEMOGLOBIN A1C - [facility] 8.0 (H) 12/07/2019 12:02 PM HEMOGLOBIN A1C - [facility] 13.8 (H) 02/14/2019 02:56 PM HEMOGLOBIN A1C - [facility] 14.0 (H) 10/28/2018 02:56 PM * Telephone Encounter - Angelica Coffey - 05/07/2023 9:15 AM ESTPending Prescriptions: Disp Refills predniSONE 20 MG Oral Tablet (Deltasone) 20 Tab*0 Sig: Take 4 tabs by mouth daily for 2 days, 3 tabs daily for 2 days, 2 tabs daily for 2 days, 1 tab daily for 2 da ys documented in this encounter Plan of Treatment Upcoming Encounters Date Type Department Care Team (Late st Contact Info) Description 05/08/2023 10:20 AM EST Office Visit Podiatry [facility] [address] [place] [address] Suzanne Person, DPM [address] [facility] [place] [address] 05/28/2023 11:15 AM EST Office Visit Ophthalmology, [facility] [address] [place] [address] Burton Schroeder, [address] [place] [address] Health Maintenance Due Date Last Done Comments [...] Directives occurred with: Not Discussed Care Teams Hand Clipper Relationship Specialty Start Date End Date Farida Do MD [address] [address] PCP - General Family Medicine 07/17/22 documented as of this encounter
--- OUTSIDE RECORDS SUMMARY | 2023-06-04 16:39 | External Medical Summary | Summary of Care ---
Author Name Unknown Organization [facility] Address [address] [place] [address] Phone [phone] Care Team Providers Care Insulating Machine Operator Name Role Phone Ryan Leyva MD Primary Care Provider [phone] Encounter Details Date Type Department Care Team (Late st Contact Info) Description 04/29/2023 Telephone Podiatry [facility] 132 [facility] [place] [address] Suzanne Person, DPCaitie [address] [place] [address] Allergies No known active allergiesdocumented as of [...] Oral Capsule (Lyrica)Indications: History of drug abuse ([facility]) take 1 capsule by mouth in [...] encounter Miscellaneous Notes * Telephone Encounter - Jaymie Meyer LPN - 04/29/2023 8:42 AM EST Wearing total contact cast on LLE since Saturday04/26/2023, began to have swelliing of LLE and pain last evening. Has been elevating the leg. Asking if it can be removed today. States has swelling problems with L leg. [phone] documented in this encounter Plan of Treatment Upcoming Encounters Date Type Department Care Team (Late st Contact Info) Description 05/03/2023 10:40 AM EST Office Visit Podiatry [address] [place] [address] Suzanne Person, DPCaitie [address] [place] [address] [place] [address] 05/28/2023 11:15 AM EST Office Visit Ophthalmology, [facility] [address] [place] [address] Burton Schroeder DO [address] [place] [address] Scheduled Orders Name Type Priority Associated Diagnoses Orde r Schedule VASC DUPLEX VENOUS LE UNILAT Medical Imaging STAT Pain of left lower leg Expected: 04/29/2023, Expires: 05/29/2024 Health Maintenance Due Date Last Done Comments [...] as of this encounter Visit Diagnoses Diagnosis Pain of left lower leg- Primary Pain in limb documented in this encounter Advance Directives Latest Code Status on File Code Status Date Activated Date Inactivated Comments Full Code 02/14/2019 10:34 PM 02/20/2019 3:48 PM This order reflects the patients wishes and were consensually agreed upon. Question Answer Comments Discussion of Advance Directives occurred with: Not Discussed Care Teams Insulating Machine Operator Relationship Specialty Start Date End Date Ryan Leyva MD 132 [facility] [place] [address] PCP - General Family Medicine 07/17/22 documented as of this encounter
--- OUTSIDE RECORDS SUMMARY | 2023-06-04 16:39 | External Medical Summary | Summary of Care ---
Author Name Unknown Organization [facility] Address [address] [place] [address] Phone [phone] Care Team Providers Care Laboratory Worker Name Role Phone Ryan Leyva MD Primary Care Provider [phone] Reason for Visit * Reason Onset Date Comments Brace 04/30/2023 Encounter Details Date Type Department Care Team ([facility] st Contact Info) Description 04/30/2023 Telephone Podiatry, [address] [address] Suzanne Person DPM [address] [place] [address] Brace Allergies No known active allergiesdocumented as of this encounter (statuses as of 04/30/2023) Medications Medication Sig Dispensed Refills Start Date [...] Oral Capsule (Lyrica)Indications: History of drug abuse ([facility]) take 1 capsule by mouth in [...] as of this encounter (statuses as of 04/30/2023) Active Problems Problem Noted Date Diagnosed Date [...] as of this encounter (statuses as of 04/30/2023) Resolved Problems Problem Noted Date Diagnosed Date [...] as of this encounter (statuses as of 04/30/2023) Immunizations Name Administration Dates Next Due COVID-19 [...] encounter Miscellaneous Notes * Telephone Encounter - Linda North OSA [...] 05/03/2023 10:40 AM EST Office Visit Podiatry [facility] [address] [facility] [place] [address] Suzanne Person, NEENA [address] [place] [address] [place] [address] 05/06/2023 12:00 PM EST Imaging Vascular Lab, [facility] 2nd Floor, [place] [address] [place] [address] 05/28/2023 11:15 AM EST Office Visit Ophthalmology, [facility] [address] [place] [address] Burton Schroeder, DO [address] [place] [address] Health Maintenance Due Date Last Done Comments [...] Directives occurred with: Not Discussed Care Teams Laboratory Worker Relationship Specialty Start Date End Date Ryan Leyva MD [address] [place] [address] PCP - General Family Medicine 07/17/22 documented as of this encounter
--- OUTSIDE RECORDS SUMMARY | 2023-06-04 16:40 | External Medical Summary | Summary of Care ---
Author Name Unknown Organization [facility] Address [address] [place] [address] Phone [phone] Care Team Providers Care Can Top Setter Name Role Phone Ryan Leyva MD Primary Care Provider [phone] Reason for Visit * Reason Comments Follow Up Pt here for Dilation . Pt states "I only want my OS dilated. 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 [place] [address] Referral ID Status Reason Start Date Expiration Date V isits Requested Visits Authorized [id number] Authorized Precert 05/31/2022 06/09/[phone] Encounter Details Date Type Department Care Team (Late st Contact Info) Description 04/09/2023 9:45 AM EDT Office Visit Ophthalmology, [facility] [address] [place] [address] Burton Schroeder DO [address] [place] [address] Vitreous hemorrhage of left eye (HCC)*; Proliferative diabetic retinopathy of both eyes associated with type 1 diabetes mellitus, unspecified proliferative retinopathy type (HCC) Allergies No known active allergiesdocumented as of this encounter (statuses as of 04/09/2023) Medications Medication Sig Dispensed Refills Start Date [...] EVERY MORNING 90 Tablet 0 01/26/2023 Active methylPREDNISolone 4 MG Oral Tablet Therapy Pack (Medrol Dosepack) follow package directions 21 Tablet 0 03/18/2023 Active Pregabalin 50 MG Oral Capsule (Lyrica)Indications :History of drug abuse (HCC) TAKE 1 CAPSULE BY MOUTH IN THE MORNING, 1 CAPSULE AT NOON AND 1 CAPSULE BEFORE BEDTIME. 90 Capsule 0 03/20/2023 Active clonazePAM 0.5 MG Oral Tablet (KlonoPIN)Indicatio ns:JOB (generalized anxiety disorder) Take 1 Tablet by mouth 2 times a day as needed for Anxiety. 60 Tablet 1 03/29/2023 Active predniSONE 20 MG Oral Tablet (Deltasone) Take 4 tabs daily for 2 days, 3 tabs daily for 2 days, 2 tabs daily for 2 days, 1 tab daily for 2 days 20 Tablet 0 04/04/2023 Active Hospital, Clinic, or Other Facility Administered [...] as of this encounter (statuses as of 04/09/2023) Active Problems Problem Noted Date Diagnosed Date Venous stasis of both lower extremities 01/15/20 [...] as of this encounter (statuses as of 04/09/2023) Resolved Problems Problem Noted Date Diagnosed Date [...] as of this encounter (statuses as of 04/09/2023) Immunizations Name Administration Dates Next Due COVID-19 [...] as of this encounter Progress Notes * Burton Schroeder DO - 04/09/2023 9:45 AM EDT [facility] [place] Nursing notes reviewed. Mood and affect: normal HPI: Bernard Jones is a 37 year old male who presents for PDR OU. Base Eye Exam Visual Acuity (Snellen - Linear) Right Left Dist sc 20/30 -1 Dist ph sc NI Visual Rowe (Counting fingers) Right Left Full Extraocular Movement Right Left Full Full Neuro/Psych Oriented x3: Yes Mood/Affect: Normal EXTERNAL: The ocular adnexae are unremarkable. SLE: Lids/Lashes: wnl OU Conjunctiva/Sclera: quiet OU Cornea: clear OU Anterior Chamber: deep and quiet OU Iris: normal OU; no NVI OU Lens: +nsc OU Dilated fundus exam OD: pt refused dilation prior dfe 12/17/22: vitreous: trace old VH optic nerve: 0.3, regressed NVD; no edema/pallor macula: +peanut sheller vessels: ischemic midperiphery: +PRP, segmented membranes periphery: +peanut sheller, +PRP, no RT/RD Dilated fundus exam OS: vitreous: +VH-worse optic nerve: 0.3, +segmented fibrovascular tuft, no edema/pallor/NVD macula: +peanut sheller vessels: ischemic midperiphery: +PRP, segmented membranes periphery: +peanut sheller, +PRP, segmented fibrovascular membranes, no RT/RD OCT Interpretation: OD: 04/09/2023:thinning, +ERM - stable OS: 12/17/22: thinning, resolved trace mild DME - stable Fundus Photo Interpretation - 07/24/16: OD: +DR w/ ischemic vasculature OS: +PDR w/ ischemic vasculature and pre-retinal heme A/P: 1. Proliferative diabetic retinopathy OU -DM1, since age 5 -ischemic maculopathy OD<OS OD: -S/P 23G PPV/MP/seg/EL for PDR/TRD/VH/ERM OD -surgery date: 05/26/2018 -s/p PRP/MEHNAZ (09-10-16) while under anesthesia for PPV OS -s/p Avastin (12/17/22, 08/23/22, 07-01-20-Dr. Dorsey, 12-15-19, 03-31-19 for VH, 10-09-18, 05-22-18, 12-05-17, 08-08-2017, 04-19-17, 11-22-16, 08-17-16) -16 weeks OS: -PDR w/ dme on presentation -s/p 23G PPV/EL/segmentation OS for PDR OS -surgery date: 09/10/2016 -s/p Avastin OS (08/10/22, 06/29/22--VH, 03-16-20, 08-07-19-Sunita, 06-02-20, 03-18-19, 07-08-18, 02-21-17, 09/05/16, 07/24/16) -VH 04/09/2023 -Avastin OS today -had pancreas/kidney transplant 04/30 [facility] 2. Dry eye -recommend OTC preservative-free artificial tears 4-6/day and prn. F/u 6-8 wks - dilate and OCT OU Burton Schroeder, DO 1021 CC: Aris Ram, OD PCP: Douglas Dennison, TIMEOUT PROCEDURE: correct patient identity-YES correct procedure and consent-YES verified side and site-YES correct patient position-YES all necessary equipment/prior studies present-YES reviewed special requirements of this patient-YES PROCEDURE: Intravitreal injection of Avastin 1.25mg OS INFORMED CONSENT: Patient is aware that this is an off-label use of Avastin and that Avastin is not FDA approved for this use. Risks, benefits and alternatives have been discussed with the patient. Risks include, but are not limited to: retinal tears, detachments, hemorrhage, glaucoma, infection, cataracts, need formore procedures and the potential risk of arterial thromboembolic events following use of intravitreal VEGF inhibitors defined as nonfatal stroke, nonfatal myocardial infarction or vascular . Patient is aware of these risks and consents to the procedure. DESCRIPTION OF PROCEDURE: The procedure site was confirmed. Topical proparacaine was applied to the surface of the eye after which subconjunctival anesthetic was administered. The area was prepped in the standard aseptic manner with 5% Betadine solution. An eyelid speculum was placed and 0.05 ml of a 25mg/ml solution of Avastin was injected 3.75 mm posterior to the limbus into the midvitreous cavity with a 30 gauge short needle. The Betadine was flushed from the eye, the eye speculum was removed and optic nerve perfusion was insured. The patient tolerated the procedure without difficulty and was given followup instructions and instructed to use ophthalmic ointment 3x/day as needed. Burton Schroeder DO, performed the procedure in its entirety. documented in this encounter Nursing Notes * Lucille Loo RN - 04/09/2023 10:42 AM EDT Bernard Jones to receive 10 Avastin 1.25mg Injection of the Left eye. Correct eye confirmed with patient and marked by Burton Schroeder DO Avastin 1.25mg lot # [id number] Exp. Date: 04/16/2023 * Edin Luna COA - 04/09/2023 10:07 AM EDT Bernard Jones is a 37 year old year old male who presents for Dilation. Last Office Visit: 12/17/2022 (in office), Visit date not found (telemedicine) Patient currently states "I only want my OS dilated. OS went blurry again" Pt denied to have OD dilated only wants OS Are you diabetic? Yes. Do you check your blood sugars daily? YES. Did not measure this morning. Last Hemoglobin A1C: Lab Results Component Value Date/Time HGBA1C 5.1 04/04/2023 12:00 AM HGBA1C 4.9 12/03/2022 12:00 AM HGBA1C 5.2 11/01/2021 10:22 AM HGBA1C 5.3 09/14/2021 09:15 AM HGBA1C 5.2 09/08/2021 09:12 AM HGBA1C 8.0 (H) 12/07/2019 12:02 PM HGBA1C 13.8 (H) 02/14/2019 02:56 PM HGBA1C 14.0 (H) 10/28/2018 02:[address]? no OCT image(s) of left eye acquired and filed/scanned into chart. documented in this encounter Plan of Treatment Upcoming Encounters Date Type Department Care Team (Late st Contact Info) Description 04/19/2023 10:20 AM EST Office Visit [facility] [address] [place] [address] Ryan Leyav MD [address] [place] [address] 04/26/2023 10:40 AM EST Office Visit Podiatry [facility] [address] [place] [address] Suzanne Person, DPM [address] [facility] [place] [address] Health Maintenance Due Date Last Done Comments [...] as of this encounter Visit Diagnoses Diagnosis Vitreous hemorrhage of left eye (HCC)- Primary Vitreous hemorrhage Proliferative diabetic retinopathy of both eyes associated with type 1 diabetes mellitus, unspecified proliferative retinopathy type (HCC) documented in this encounter Administered Medications Active Administered Medications - up to 3 most recent administrations Medication Order MAR Action Action Date Dose Rate Site bevaCIZumab (Avastin) inj 1.25 mg 1.25 mg, Intravitreal, PRN Other, Starting on Sat06/29/22 at 1339, Until 06/29/23 at 1338, For 365 days Given 04/09/2023 10:45 AM EDT 1.25 mg Eye Left Given 12/17/2022 1:27 PM EDT 1.25 mg Ey e Right Given 08/23/2022 10:31 AM EDT 1.25 mg E ye Right ROPivacaine (Naropin) inj 1.5 mg 1.5 mg, Perineural, PRN Other, Starting on Sat06/29/22 at 1339, Until 06/29/23 at 1338, For 365 days Given 04/09/2023 10:45 AM EDT 1.5 mg Eye Left Given 12/17/2022 1:26 PM EDT 1.5 mg Ey e Right Given 08/23/2022 10:30 AM EDT 1.5 mg E ye Right documented in this encounter Advance Directives Latest Code Status on File Code Status Date Activated Date Inactivated Comments Full Code 02/14/2019 10:34 PM 02/20/2019 3:48 PM This order reflects the patients wishes and were consensually agreed upon. Question Answer Comments Discussion of Advance Directives occurred with: Not Discussed Care Teams Can Top Setter Relationship Specialty Start Date End Date Ryan Leyva MD [address] [place] [address] PCP - General Family Medicine 07/17/22 documented as of this encounter
--- OUTSIDE RECORDS SUMMARY | 2023-06-04 16:40 | External Medical Summary | Summary of Care ---
Author Name Unknown Organization [facility] Address [address] [place] [address] Phone [phone] Care Team Providers Care Cup Trimming Machine Operator Name Role Phone Ryan Leyva MD Primary Care Provider [phone] [phone] Reason for Visit * Reason Comments Follow Up Total contact cast- EZ Encounter Details Date Type Department Care Team (Late st Contact Info) Description 04/19/2023 8:45 AM EST Office Visit Podiatry [facility] [address] [place] [address] Suzanne Preson, DPCaitie [address] [place] [address] Charcot's arthropathy*; Numbness in feet; Pain in both feet; Cellulitis of left lower leg; Multiple open wounds of left lower leg Allergies No known active allergiesdocumented as of this encounter (statuses as of 04/22/2023) Medications Medication Sig Dispensed Refills Start Date [...] hemoglobin A1c goal of less than 7.0% ([facility]) TAKE 1 TABLET BY MOUTH EVERY MORNING 90 Tablet 0 01/26/2023 Active Pregabalin 50 MG Oral Capsule (Lyrica)Zeniatio ns:History of drug abuse ([facility]) TAKE 1 CAPSULE BY MOUTH IN THE MORNING, 1 CAPSULE AT NOON AND 1 CAPSULE BEFORE BEDTIME. 90 Capsule 0 03/20/2023 Active clonazePAM 0.5 MG Oral Tablet (KlonoPIN)Indicat ions:JOB (generalized anxiety disorder) Take 1 Tablet by mouth 2 times a day as needed for Anxiety. 60 Tablet 1 03/29/2023 Active Amoxicillin-Pot Clavulanate 875-125 MG Oral Tablet (Augmentin) Take 1 Tablet by mouth in the morning and 1 Tablet before bedtime. 20 Tablet 0 04/19/2023 Active methylPREDNISolon e 4 MG Oral Tablet Therapy Pack (Medrol Dosepack) follow package directions 21 Tablet 0 03/18/2023 3 Discontinued predniSONE 20 MG Oral Tablet (Deltasone) Take 4 tabs daily for 2 days, 3 tabs daily for 2 days, 2 tabs daily for 2 days, 1 tab daily for 2 days 20 Tablet 0 04/04/2023 3 Discontinued Hospital, Clinic, or Other Facility Administered Medication Ordered Dose Route Frequency Start Date End Date Status bevaCIZumab (Avastin) inj 1.25 mgIndications:Stable proliferative diabetic retinopathy of both eyes associated with type 1 diabetes mellitus (HCC),Vitreous hemorrhage of left eye ([facility]) 1.25 mg IZ PRN 06/29/2022 06/29/2023 Active ROPivacaine (Naropin) inj 1.5 mgIndications:Stable proliferative diabetic retinopathy of both eyes associated with type 1 diabetes mellitus ([facility]),Vitreous hemorrhage of left eye (HCC) 1.5 mg PERINEURAL PRN 06/29/2022 06/29/2023 Active documented as of this encounter (statuses as of 04/22/2023) Active Problems Problem Noted Date Diagnosed Date [...] as of this encounter (statuses as of 04/22/2023) Resolved Problems Problem Noted Date Diagnosed Date [...] as of this encounter (statuses as of 04/22/2023) Immunizations Name Administration Dates Next Due COVID-19 [...] Progress Notes * Suzanne Person, NEENA - 04/19/2023 8:32 AM EST Podiatry Established Note [facility] Name: Bernard Jones : 1985 Date: 04/19/2023 REASON FOR VISIT: sooner follow up - bilateral foot pain SUBJECTIVE: This patient is a 37 year old male who presents today with complaints of bilateral footpain. I had seen him in February for suspected plantar fasciitis. He had then called with concernsof increased pain. I had seen him again in March. Repeat x-rays showed concerns of fracture/fragmentation. I ordered a CT of the right side which was more consistent with charcot arthropathy. He had been in a camwalker which seemed to help but then contacted with concerns of worsening pain on theleft side. I had reached out to [facility] foot and ankle orthopaedics and recommended a return for re-examination, re-xray, and possible casting. Today, he notes increased pain to the left foot and wounds to the left lower leg. He has considered contacting wound care. He notes pain to both feet although the left is worse than the right now. He takes Lyrica and does not think his PCP will prescribe painmedications. He does take ASA 325mg PO daily. 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 Capillary refill time is within normal limits to all toes. Significant edema of the left lower leg and foot. Minimal swelling on the right. No warmth. Neurologic: Sensation (light touch) intact to the bilateral lower extremities. Musculoskeletal: Slight midfoot pronunciation of both sides, more evident on right. He reports pain with palpation of the medial midfoot and hindfoot bilaterally. Dermatological: Multiple small open wounds to the left lower leg with erythema. Superficial wound to the right anterior cagle. DIAGNOSTIC STUDIES: X-ray, bilateral foot, 04/19/2023 This includes three weight bearing x-rays AP MO and Lateral. The left foot shows changes to the cuboid region and medial navicular bone. There is displacement of the T-N joint noted on lateral view. These are new when compared to the 04/05 x- rays. The right foot shows similar changes as seen in 04/05 views. Fracture and fragmentation of the navicular bone with likely CC joint fracture involvement consistent with charcot. There is slight declination of the talar bone seem on lateral view. CT right LE, 04/10/2023 This study was performed at an outside facility. Images and report are in EPIC. There is tarso navicular changes consistent with fracture, fragmentation/charcot deformity. This also includes similar changes to the cuboid and calcaneal cuboid joints. Vascular calcifications noted. Arthrosis evident at TMT joints but no fracture. ASSESSMENT: 1. Charcot's arthropathy 2. Numbness in feet 3. Pain in both feet 4. Cellulitis of left lower leg 5. Multiple open wounds of left lower leg PLAN: I personally reviewed today's bilateral foot x-rays as above. I spoke with Bernard regarding acute charcot arthropathy. This will be a challenge for him. This leads to altered foot shape, pressure points. He is at risk for wounds, edema, and infection. I discussed treatment with Dr. Valdez earlier this week who agreed Bernard is not a strong surgical candidate. I recommended conservative treatment with immobilization and serial x-rays/visits. Eventually, he may require custom shoes/inserts/boots/braces. For the left side, I prescribed oral Augmentin which he recalls tolerating before. Nurse to apply xeroform, DSD, tubi test fixture designer and we will use his camwalker on this side. For the right, nurses are to apply cushion to wound side with EZ total contact cast. He may do limited weight bearing to both sides with use of crutches or walker. He is to contact this office with any questions or concerns. He reports he may contact wound care. If he does this, I asked he let me know as I will update provider he is seeing regarding condition. I also spoke with Bernard regarding risk of DVT. I discusses signs/symptoms. He is to consider ER if he has these. He does take ASA 325mg PO daily. He inquired about pain medications. Given history, I do not feel comfortable prescribing narcotics.Lyrica is prescribed by PCP. I recommended he discuss with him. He states he likely will not prescribe narcotics. I will CC PCP on this note today. Will plan on a 1 week recheck. Suzanne Person DPM documented in this encounter Nursing Notes * Gracie Bergman MED ASSIST - 04/19/2023 8:11 AM EST Pt presents today for TCC-EZ. States his left is worse than his right. documented in this encounter Miscellaneous Notes * Addendum Note - Norma Boudreaux LPN - 04/22/2023 9:12 AM ESTAddended by: NORMA BOUDREAUX on: 04/22/2023 09:12 AM Modules accepted: Orders documented in this encounter Plan of Treatment Upcoming Encounters Date Type Department Care Team (Late st Contact Info) Description 04/26/2023 10:40 AM EST Office Visit Podiatry [facility] [address] [facility] [place] [address] Suzanne Person DPM [address] [facility] [place] [address] 05/28/2023 11:15 AM EST Office Visit Ophthalmology, [facility] [address] [facility] [place] [address] Burton Schroeder DO 132 [facility] [place] [address] Pending Results Name Type Priority Associated Diagnoses Date /Time XR FOOT 3 OR MORE VIEWS Medical Imaging Routine Numbness in feet 04/19/2023 8:35 AM EST Scheduled Orders Name Type Priority Associated Diagnoses Orde r Schedule APPLY RIGID TOTAL CONTACT LEG CAST Procedures Routine Numbness in feet Charcot's arthropathy Pain in both feet Cellulitis of left lower leg Multiple open wounds of left lower leg Ordered: 04/22/2023 SHORT LEG CAST SUPPLY,ADULT,FBGLS Procedures Routine Numbness in feet Charcot's arthropathy Pain in both feet Cellulitis of left lower leg Multiple open wounds of left lower leg Ordered: 04/22/2023 Health Maintenance Due Date Last Done Comments [...] Diagnoses Diagnosis Charcot's arthropathy- Primary Tabes dorsalis Numbness in feet Disturbance of skin sensation Pain in both feet Pain in limb Cellulitis of left lower leg Cellulitis and abscess of leg, except foot Multiple open wounds of left lower leg documented in this encounter Advance Directives Latest Code Status on File Code Status Date Activated Date Inactivated Comments Full Code 02/14/2019 10:34 PM 02/20/2019 3:48 PM This order reflects the patients wishes and were consensually agreed upon. Question Answer Comments Discussion of Advance Directives occurred with: Not Discussed Care Teams Cup Trimming Machine Operator Relationship Specialty Start Date End Date Ryan Leyva MD [address] [place] [address] PCP - General Family Medicine 07/17/22 documented as of this encounter
--- OUTSIDE RECORDS SUMMARY | 2023-06-04 16:40 | External Medical Summary | Summary of Care ---
Author Name Unknown Organization [facility] Address [address] [place] [address] Phone [phone] Care Team Providers Care Manager Biologics Name Role Phone Ryan Leyva MD Primary Care Provider [phone] Reason for Visit * Reason Onset Date Comments Test Results 04/12/2023 Advice 04/12/2023 Encounter Details Date Type Department Care Team ([facility] Contact Info) Description 04/12/2023 Telephone Podiatry, [address] [address] Suzanne Person DPM [address] [place] [address] Test Results; Advice Allergies No known active allergiesdocumented as of this encounter (statuses as of 04/15/2023) Medications Medication Sig Dispensed Refills Start Date [...] hemoglobin A1c goal of less than 7.0% ([facility]) TAKE 1 TABLET BY MOUTH EVERY MORNING 90 Tablet 0 01/26/2023 Active methylPREDNISolone 4 MG Oral Tablet Therapy Pack (Medrol Dosepack) follow package directions 21 Tablet 0 03/18/2023 Active Pregabalin 50 MG Oral Capsule (Lyrica)Indications :History of drug abuse ([facility]) TAKE 1 CAPSULE BY MOUTH IN THE [...] as of this encounter (statuses as of 04/15/2023) Active Problems Problem Noted Date Diagnosed Date [...] as of this encounter (statuses as of 04/15/2023) Resolved Problems Problem Noted Date Diagnosed Date [...] as of this encounter (statuses as of 04/15/2023) Immunizations Name Administration Dates Next Due COVID-19 [...] Telephone Encounter - Linda North OSA - 04/15/2023 2:00 PM EST Pt called asking medical questions; transferred to nurse station. * Telephone Encounter - Shannon Mensah - 04/15/2023 9:36 AM EST Bernard called in today stating his treatment plan is not clear to him. He stated he did talk with someone but it is not clear to him what he is to do. Hew also stated that his left foot hurts worse than his RT foot, He would like call back. # in file verified * Telephone Encounter - Celestina Busch TECH - 04/12/2023 3:40 PM EDT Called and spoke with pt he states he is having symptoms in both feet Relayed to pt he has charcot which is causing the fractures and severe pain R was more severe before and now the left is just as severe Pt has boot for the right and I advised he wear that and NWB until follow up, although given his symptoms are just as severe on the left advised to be NWB as much as possible through the weekend Advised Dr. Person would call him when she is back in the office to go over diagnosis and treatment more definitively and go over any other imaging that could need ordered Pt voiced understanding NOE Jackson * Telephone Encounter - Sarahi Calabrese OSA - 04/12/2023 3:13 PM EDT Pt is calling, he would like call with the results of his CT scan. His pain in his foot is getting worse, he can bearly walk. He feels when he walks his foot is going to break. The best number to call back is [phone] documented in this encounter Plan of Treatment Upcoming Encounters Date Type Department Care Team (Late st Contact Info) Description 04/19/2023 10:20 AM EST Office Visit Family Practice [facility] [address] [facility] [place] [address] Ryan Leyva MD 132 [facility] [place] [address] 04/26/2023 10:40 AM EST Office Visit Podiatry [facility] [address] [facility] [place] [address] Suzanne Person DPM 400 [facility] [place] [address] 05/28/2023 11:15 AM EST Office Visit Ophthalmology, [facility] [address] [place] [address] Burton Schroeder DO [address] [place] [address] Health Maintenance Due Date Last Done Comments [...] occurred with: Not Discussed Care Teams Manager Biologics Relationship Specialty Start Date End Date Ryan Leyva MD [address] [place] [address] PCP - General Family Medicine 07/17/22 documented as of this encounter
--- OUTSIDE RECORDS SUMMARY | 2023-06-04 16:40 | External Medical Summary | Summary of Care ---
Author Name Unknown Organization [facility] Address [address] [place] [address] Phone [phone] Care Team Providers Care Coding Clerks Supervisor Name Role Phone Ryan Leyva MD Primary Care Provider [phone] Encounter Details Date Type Department Care Team (Late st Contact Info) Description 04/09/2023 9:30 AM EDT Nurse Only [facility] [address] [place] [address] [facility], Nurse Ortho [facility] [address] [place] [address] Arrived Allergies No known active allergiesdocumented as of [...] Oral Capsule (Lyrica)Indications :History of drug abuse ([facility]) TAKE 1 CAPSULE BY MOUTH IN THE [...] Nursing Notes * Jaymie Meyer LPN - 04/09/2023 10:25 AM EDT Pt presents for post op shoe per telephone encounter, shoe fit and dispensed. documented in this encounter Plan of Treatment Upcoming Encounters Date Type Department Care Team (Late st Contact Info) Description 04/26/2023 10:40 AM EST Office Visit Podiatry [facility] 132 [facility] [place] [address] Suzanne Person DPM [address] [place] [address] [place] [address] Health Maintenance Due Date Last Done Comments [...] Directives occurred with: Not Discussed Care Teams Coding Clerks Supervisor Relationship Specialty Start Date End Date Ryan Leyva MD 132 [facility] [place] [address] PCP - General Family Medicine 07/17/22 documented as of this encounter
--- OUTSIDE RECORDS SUMMARY | 2023-06-04 16:40 | External Medical Summary | Summary of Care ---
Author Name Unknown Organization [facility] Address [address] [place] [address] Phone [phone] Care Team Providers Care Drag Seiner Name Role Phone Ryan Leyva MD Primary Care Provider [phone] Reason for Visit * Reason Comments Follow Up Total contact cast- EZ Encounter Details Date Type Department Care Team (Late st Contact Info) Description 04/19/2023 8:45 AM EST Office Visit Podiatry [facility] [address] [place] [address] Szuanne Person, DPCaitie [address] [place] [address] Charcot's arthropathy*; Numbness in feet; Pain in both feet; Cellulitis of left lower leg; Multiple open wounds of left lower leg Allergies No known active allergiesdocumented as of this encounter (statuses as of 04/19/2023) Medications Medication Sig Dispensed Refills Start Date [...] goal of less than 7.0% ([facility]) TAKE 1 TABLET BY MOUTH EVERY MORNING 90 Tablet 0 01/26/2023 Active methylPREDNISolone 4 MG Oral Tablet Therapy Pack (Medrol Dosepack) follow package directions 21 Tablet 0 03/18/2023 Active Pregabalin 50 MG Oral Capsule (Lyrica)Indications :History of drug abuse ([facility]) TAKE 1 CAPSULE BY MOUTH IN [...] 2 days 20 Tablet 0 04/04/2023 Active Amoxicillin-Pot Clavulanate 875-125 MG Oral Tablet (Augmentin) Take 1 Tablet by mouth in the morning and 1 Tablet before bedtime. 20 Tablet 0 04/19/2023 Active Hospital, Clinic, or Other Facility Administered [...] as of this encounter (statuses as of 04/19/2023) Active Problems Problem Noted Date Diagnosed Date [...] as of this encounter (statuses as of 04/19/2023) Resolved Problems Problem Noted Date Diagnosed Date [...] as of this encounter (statuses as of 04/19/2023) Immunizations Name Administration Dates Next Due COVID-19 [...] of this encounter Progress Notes * Suzanne Person DPM - 04/19/2023 8:32 AM EST Podiatry Established Note [facility] Name: Bernard Jones : 1985 Date: 04/19/2023 [...] theleft side. 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 Nurse to apply xeroform, DSD, tubi leather case finisher and we will use his camwalker on [...] than his right. documented in this encounter Plan of Treatment Upcoming Encounters Date Type Department Care Team (Late st Contact Info) Description 04/19/2023 10:20 AM EST Office Visit Family Practice [facility] 132 [facility] [place] [address] Ryan Leyva MD 132 [facility] [place] [address] 04/26/2023 10:40 AM EST Office Visit Podiatry [facility] [address] [facility] [place] [address] Suzanne Person DPM [address] [place], [place] [address] [address] 05/28/2023 11:15 AM EST Office Visit Ophthalmology, [facility] 132 [facility] [place] [address] Burton Schroeder DO 132 [facility] [place] [address] Pending Results Name Type Priority Associated Diagnoses Date /Time XR FOOT 3 OR MORE VIEWS Medical Imaging Routine Numbness in feet 04/19/2023 8:35 AM EST Health Maintenance Due Date Last [...] Directives occurred with: Not Discussed Care Teams Drag Seiner Relationship Specialty Start Date End Date Ryan Leyva MD [address] [place] [address] PCP - General Family Medicine 07/17/22 documented as of this encounter
--- OUTSIDE RECORDS SUMMARY | 2023-06-04 16:40 | External Medical Summary | Summary of Care ---
Author Name Unknown Organization [facility] Address [address] [place] [address] Phone [phone] Care Team Providers Care Prosthetic Aides Teacher Name Role Phone Ryan Leyva MD Primary Care Provider [phone] Reason for Visit * Reason Onset Date Comments Test Results 04/12/2023 Advice 04/12/2023 Encounter Details Date Type Department Care Team ([facility] Contact Info) Description 04/12/2023 Telephone Podiatry, [address] [address] Suzanne Person DPM [address] [place] [address] Test Results; Advice Allergies No [...] hemoglobin A1c goal of less than 7.0% ([facility]) TAKE 1 TABLET BY MOUTH EVERY MORNING 90 Tablet 0 01/26/2023 Active methylPREDNISolone 4 MG Oral Tablet Therapy Pack (Medrol Dosepack) follow package directions 21 Tablet 0 03/18/2023 Active Pregabalin 50 MG Oral Capsule (Lyrica)Indications :History of drug abuse ([facility]) TAKE 1 CAPSULE BY MOUTH IN [...] History of drug abuse 10/30/2022 Overview: IVDA OJB (generalized anxiety disorder) 10/28/2022 Kidney replaced by [...] The best number to call back is [phone] documented in this encounter Plan of Treatment Upcoming Encounters Date Type Department Care Team (Late st Contact Info) Description 04/19/2023 10:20 AM EST Office Visit Family Practice [facility] [address] [place] [address] Ryan Leyva MD [address] [place] [address] 04/26/2023 10:40 AM EST Office Visit Podiatry [facility] [address] [place] [address] Suzanne Person, NEENA [address] [facility] [place] [address] 05/28/2023 11:15 AM EST Office Visit Ophthalmology, [facility] [address] [place] [address] Burton Schroeder DO [address] [place] [address] Health Maintenance Due Date Last Done Comments [...] Directives occurred with: Not Discussed Care Teams Prosthetic Aides Teacher Relationship Specialty Start Date End Date Ryan Leyva MD [address] [place] [address] PCP - General Family Medicine 07/17/22 documented as of this encounter
--- OUTSIDE RECORDS SUMMARY | 2023-06-04 16:40 | External Medical Summary | Summary of Care ---
Author Name Unknown Organization [facility] Address [address] [place] [address] Phone [phone] Care Team Providers Care Cancer Registry Manager Name Role Phone Ryan Leyva MD Primary Care Provider [phone] [phone] Reason for Visit * Reason Comments Follow Up Pt here for follow u p on steriods, in addition to discussion on pain management. Pt states podiatry was going to send a message over Encounter Details Date Type Department Care Team ([facility] st Contact Info) Description 04/19/2023 10:20 AM EST Office Visit Family [facility] [address] 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 (HCC); History of drug abuse (HCC); 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HCC); Kidney replaced by transplant; History of type 1 diabetes mellitus; JOB (generalized anxiety disorder) Allergies No known [...] Capsule (Lyrica)Indicatio ns:History of drug abuse (HCC) TAKE 1 CAPSULE [...] 2 days 20 Tablet 0 04/19/2023 Active methylPREDNISolon e [...] on file documented as of this encounter Last Filed Vital Signs Vital Sign Reading Time Taken Comments Blood Pressure 120/80 04/19/2023 10:31 AM EST Pulse 64 04/19/2023 10:31 AM EST Temperature 36.6 C (97.8 F) 04/19/2023 10:[address] Respiratory Rate - - Oxygen Saturation - - Inhaled Oxygen Concentration - - Weight - - Height - - Body Mass Index - - documented in this encounter Functional Status Functional Status Response Date of Assess ment Does this person have seriou s difficulty walking or climbing stairs? Yes 10/28/2018 documented as of this encounter Progress Notes * Ryan Leyva MD - 04/19/2023 12:19 PM EST SUBJECTIVE: Bernard Jones is a 37 year old male. Chief Complaint Patient presents with Follow Up Pt here for follow up on steriods, in addition to discussion on pain management. Pt states podiatrywas going to send a message over HPI: Bernard is here today to ask about opiate medication for his foot pain. I declined because of his history of drug abuse and maintenance methadone prescription. I clearly explained to him why I will not, and cannot, prescribe him opiates for his Charcot foot. He does follow with podiatry. He is thinking about medical marijuana. 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) E10.3553 HTN, goal below 130/80 I10 Seizure disorder ([facility]) G40.909 Hepatitis C virus infection cured after antiviral drug therapy Z86.19 Kidney replaced by transplant Z94.0 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 ([facility]) Z94.83 JOB (generalized anxiety disorder) F41.1 History of drug abuse (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) E11.610 Current Outpatient Medications Medication Sig Dispense [...] BY MOUTH EVERY MORNING 90 Tablet 0 Pregabalin 50 MG Oral Capsule (Lyrica) TAKE 1 CAPSULE BY MOUTH IN THE MORNING, 1 CAPSULE AT NOON AND 1 CAPSULE BEFORE BEDTIME. 90 Capsule 0 clonazePAM 0.5 MG Oral Tablet (KlonoPIN) Take 1 Tablet by mouth 2 times a day as needed for Anxiety. 60 Tablet 1 predniSONE 20 MG Oral Tablet (Deltasone) Take 4 tabs by mouth daily for 2 days, 3 tabs daily for 2 days, 2 tabs daily for 2 days, 1 tab daily for 2 days 20 Tablet 0 Amoxicillin-Pot Clavulanate 875-125 MG Oral Tablet (Augmentin) Take 1 Tablet by mouth in the morning and 1 Tablet before bedtime. 20 Tablet 0 Current Facility-Administered Medications Medication Dose Route Frequency Provider Last Rate Last Admin bevaCIZumab (Avastin) inj 1.25 mg 1.25 mg Intravitreal PRN Burton Schroeder, DO 1.25 mg at 04/09/23 1045 ROPivacaine (Naropin) inj 1.5 mg 1.5 mg Perineural PRN Burton Schroeder, DO 1.5 mg at 045 Allergy: Review of patient's allergies indicates: No Known Allergies OBJECTIVE: BP 120/80 | Pulse 64 | Temp 36.6 C (97.8 F) (Tympanic) Gen: nad Ext: bilateral CAM walkers ASSESSMENT AND PLAN: (E11.610) Diabetic Charcot foot (HCC) (primary encounter diagnosis) Plan: declined his request for opiates for the several reasons outlined in the note -continue mgmt per podiatry (G40.909) Seizure disorder (HCC) Plan: quiescent (Z94.83) 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 (HCC) Plan: noted (F19.11) History of drug abuse (HCC) Plan: noted (F11.20) 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) Plan: noted (Z94.0) Kidney replaced by transplant Plan: noted (Z86.39) History of type 1 diabetes mellitus Plan: noted (F41.1) JOB (generalized anxiety disorder) Plan: stable Follow up as needed. No other complaints were offered at this time. Ryan Leyva MD documented in this encounter Nursing Notes * Tonie Rodriguez LPN - 04/19/2023 10:31 AM EST The patient has been properly identified by confirmation of name and date of . Chief Complaint Patient presents with Follow Up Pt here for follow up on steriods, in addition to discussion on pain management. Pt states podiatrywas going to send a message over documented in this encounter Plan of Treatment Upcoming Encounters Date Type Department Care Team (Late st Contact Info) Description 04/26/2023 10:40 AM EST Office Visit Pod[facility] [place] [address] Suzanne Person, NEENA [address] [facility] [place] [address] 05/28/2023 11:15 AM EST Office Visit Ophthalmology, [facility] [address] [facility] [place] [address] Burton Schroeder, 132 [facility] [place] [address] Health Maintenance Due Date Last Done Comments [...] as of this encounter Visit Diagnoses Diagnosis Diabetic Charcot foot (HCC)- Primary Type II or unspecified type diabetes mellitus with neurological manifestations, not stated as uncontrolled Seizure disorder (HCC) Unspecified epilepsy without mention of intractable epilepsy 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 (HCC) 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 History of drug abuse (HCC) Other, mixed, or unspecified nondependent drug abuse, in remission 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HCC) Opioid type dependence, unspecified Kidney replaced by transplant History of type 1 diabetes mellitus Personal history of other endocrine, metabolic, and immunity disorders JOB (generalized anxiety disorder) Generalized anxiety disorder documented in this encounter Advance Directives Latest Code Status on File Code Status Date Activated Date Inactivated Comments Full Code 02/14/2019 10:34 PM 02/20/2019 3:48 PM This order reflects the patients wishes and were consensually agreed upon. Question Answer Comments Discussion of Advance Directives occurred with: Not Discussed Care Teams Cancer Registry Manager Relationship Specialty Start Date End Date Ryan Leyva MD [address] [place] [address] PCP - General Family Medicine 07/17/22 documented as of this encounter"
--- OUTSIDE RECORDS SUMMARY | 2023-06-04 16:40 | External Medical Summary | Summary of Care ---
Author Name Unknown Organization [facility] Address [address] [place] [address] Phone [phone] Care Team Providers Care Label Rewinder Name Role Phone Farida Do MD Primary Care Provider [phone] Reason for Referral * Medication Prior Authorization - Closed Specialty Diagnoses / Procedures Referred By Contac t Referred To Contact Diagnoses History of drug abuse (HCC) Farida Do MD [address] [place] [address] Referral ID Status Reason Start Date Expiration Date Visits Re quested Visits Authorized [id number] Closed [phone] Reason for Visit * Reason Comments eRx-Medication Refill Encounter Details Date Type Department Care Team (Late st Contact Info) Description 04/20/2023 Refill Family Practice [facility] [address] [facility] [place] [address] Farida Do MD [address] [place] [address] History of drug abuse (HCC) Allergies No known active allergiesdocumented as [...] before bedtime. 90 Capsule 0 04/22/2023 Active Pregabalin 50 MG Oral Capsule (Lyrica)Indicatio ns:History of drug abuse (HCC) TAKE 1 CAPSULE BY MOUTH IN THE MORNING, 1 CAPSULE AT NOON AND 1 CAPSULE BEFORE BEDTIME. 90 Capsule 0 03/20/2023 3 Discontinued Hospital, Clinic, or Other Facility [...] Telephone Encounter - Farida Do MD - 04/22/2023 9:34 AM ESTSigned Prescriptions: Disp Refills Pregabalin 50 MG Oral Capsule (Lyrica) 90 Cap*0 Sig: take 1 capsule by mouth in the morning, 1 capsule at noon and 1 capsule before bedtime. Authorizing Provider: FARIDA DO * [facility]22/[facility] 9:13 AM ESTPending Prescriptions: Disp Refills Pregabalin 50 MG Oral Capsule [Pharmacy Me*90 Cap*0 Sig: TAKE 1 CAPSULE BY MOUTH IN THE MORNING, 1 CAPSULE AT NOON AND 1 CAPSULE BEFORE BEDTIME. * Telephone Encounter - Ashley Almanza [facility] - 04/22/2023 9:13 AM EST I have reviewed the patients controlled substance dispensing history in the Prescription Drug Monitoring Program in compliance with the [facility] regulations before prescribing a controlled substance. PDMP checked on 04/22/2023. Pending Prescriptions: Disp Refills Pregabalin 50 MG Oral Capsule (Lyrica) [P*90 Cap*0 Sig: take 1 capsule by mouth in the morning, 1 capsule at noon and 1 capsule before bedtime. Last Visit: 04/19/2023 (in office), 01/14/2023 (telemedicine) Next Visit: Visit date not found Date medication was last filled: 03/20 Date medication is due for refill: 04/18 Pharmacy: [facility] [id number] Is this request for a controlled substance? Yes and Urine Drug Screen was completed Toxicology results: Results for orders placed [...] REQUEST. Cutoff Concentration Please approve if appropriate. Thanks, Ashley Almanza, PharmD Clinical Pharmacist [facility] (formerly [facility]) [phone] 04/22/2023 9:13 AM documented in this encounter Plan of Treatment Upcoming Encounters Date Type Department Care Team (Late st Contact Info) Description 04/26/2023 10:40 AM EST Office Visit Podiatry [facility] 132 [facility] [place] [address] Suzanne Person, NENEA [address] [place] [address] 05/28/2023 11:15 AM EST Office Visit Ophthalmology, [facility] 132 [facility] [place] [address] Burton Schroeder DO 132 [facility] [place] [address] Health Maintenance Due Date Last Done Comments [...] as of this encounter Visit Diagnoses Diagnosis History of drug abuse (HCC) Other, mixed, or unspecified nondependent drug abuse, in remission documented in this encounter Advance Directives Latest Code Status on File Code Status Date Activated Date Inactivated Comments Full Code 02/14/2019 10:34 PM 02/20/2019 3:48 PM This order reflects the patients wishes and were consensually agreed upon. Question Answer Comments Discussion of Advance Directives occurred with: Not Discussed Care Teams Label Rewinder Relationship Specialty Start Date End Date Farida Do MD [address] [place] [address] PCP - General Family Medicine 07/17/22 documented as of this encounter
--- OUTSIDE RECORDS SUMMARY | 2023-06-04 16:40 | External Medical Summary | Summary of Care ---
Author Name Unknown Organization [facility] Address [address] [place] [address] Phone [phone] Care Team Providers Care Pinsetter Mechanic Automatic Name Role Phone Ryan Leyva MD Primary Care Provider [phone] Encounter Details Date Type Department Care Team (Latest Contact Info) Description 04/10/2023 1:00 PM EDT - 04/10/2023 11:59 PM EDT Hospital Encounter Radiology Film File [address] [place] [address] Arrived Discharge Disposition: Home - Self Care Allergies No known active allergiesdocumented as of this encounter (statuses as of 04/13/2023) Medications Medication Sig Dispensed Refills Start Date [...] Oral Capsule (Lyrica)Indications :History of drug abuse ([facility]) TAKE 1 CAPSULE BY MOUTH IN THE [...] as of this encounter (statuses as of 04/13/2023) Active Problems Problem Noted Date Diagnosed Date [...] as of this encounter (statuses as of 04/13/2023) Resolved Problems Problem Noted Date Diagnosed Date [...] as of this encounter (statuses as of 04/13/2023) Immunizations Name Administration Dates Next Due COVID-19 [...] 10:20 AM EST Office Visit Family Practice [facility] [address] [place] [address] Ryan Leyva MD [address] [place] [address] 04/26/2023 10:40 AM EST Office Visit Podiatry [facility] [address] [place] [address] Suzanne Person, DPCaitie 400 [facility] [place] [address] 05/28/2023 11:15 AM EST Office Visit Ophthalmology, [facility] [address] [place] [address] Burton Schroeder DO [address] [place] [address] Health Maintenance Due Date Last Done Comments [...] Procedure Name Priority Date/Time Associated Diagnosis Comments RADIOLOGY EXAM - CT (IMAGES ONLY, NO REPORT) Routine 04/10/2023 1:00 PM EDT documented in this encounter Results * RADIOLOGY EXAM - CT (IMAGES ONLY, NO REPORT) (04/10/2023 1:00 PM EDT) 04/10/2023 12:5 6 PM EDT Narrative Scheduling, Silent - 04/12/2023 10:17 AM EDT This is an imaging study not interpreted or resulted by a [facility] or [facility] contracted radiologist. Suzanne Person DPM RAD CT documented in this encounter Advance Directives Latest Code Status on File Code Status Date Activated Date Inactivated Comments Full Code 02/14/2019 10:34 PM 02/20/2019 3:48 PM This order reflects the patients wishes and were consensually agreed upon. Question Answer Comments Discussion of Advance Directives occurred with: Not Discussed Care Teams Pinsetter Mechanic Automatic Relationship Specialty Start Date End Date Ryan Leyva MD [address] [place] [address] PCP - General Family Medicine 07/17/22 documented as of this encounter
--- OUTSIDE RECORDS SUMMARY | 2023-06-04 16:40 | External Medical Summary | Summary of Care ---
Author Name Unknown Organization [facility] Address [address] [place] [address] Phone [phone] Care Team Providers Care Osd Clerk Name Role Phone Ryan Leyva MD Primary Care Provider [phone] Reason for Visit * Reason Onset Date Comments Advice 04/15/2023 Encounter Details Date Type Department Care Team ([facility] st Contact Info) Description 04/15/2023 Telephone Orthopaedics [facility] 132 [facility] [place] [address] Suzanne Person, DPCaitie [address] [place] [address] Advice Allergies No known active allergiesdocumented as of this encounter (statuses as of 04/17/2023) Medications Medication Sig Dispensed Refills Start Date [...] Oral Capsule (Lyrica)Indications :History of drug abuse ([facility]) TAKE 1 CAPSULE BY MOUTH IN THE [...] as of this encounter (statuses as of 04/17/2023) Active Problems Problem Noted Date Diagnosed Date [...] as of this encounter (statuses as of 04/17/2023) Resolved Problems Problem Noted Date Diagnosed Date [...] as of this encounter (statuses as of 04/17/2023) Immunizations Name Administration Dates Next Due COVID-19 [...] * Telephone Encounter - Shannon Mensah - 04/17/2023 4:30 PM EST Attempted to add to schedule on 04/19 due to limited scheduling access I cannot add appointment. Sent email to Lilliana Moya to add * Telephone Encounter - Suzanne Person DPM - 04/17/2023 4:04 PM EST I spoke with Bernard regarding CT scan. I spoke with him about charcot. I reviewed this including risks. I did discuss case with Martir Valdez MD. We reviewed option of TCC and traditional cast. He is coming Saturday and has been wearing his camwalker and staying off his feet. He now reports left foot pain which is worse and swelling. I recommended we obtain new x-rays and see if we want to cast one side and boot one side if possible. We can also provide Rx for assistive devices if needed and review blood clot risk due to immobilization. * Telephone Encounter - Norma Boudreaux LPN - 04/15/2023 10:00 AM EST Telephone message from pt requesting guidance on weight bearing status. States he had CT done 04/10/23. Follow up appt is 04/26/23. Norma MACE documented in this encounter Plan of Treatment Upcoming Encounters Date Type Department Care Team (Late st Contact Info) Description 04/19/2023 10:20 AM EST Office Visit Family Practice [facility] [address] [place] [address] Ryan Leyva MD [address] [place] [address] 04/26/2023 10:40 AM EST Office Visit Podiatry [facility] 132 [facility] [place] [address] Suzanne Person DPM [address] [place], [place] [address] [address] 05/28/2023 11:15 AM EST Office Visit Ophthalmology, [facility] [address] [place] [address] Burton Schroeder DO [address] [place] [address] Health Maintenance Due Date Last Done Comments [...] Directives occurred with: Not Discussed Care Teams Osd Clerk Relationship Specialty Start Date End Date Ryan Leyva MD [address] [place] [address] PCP - General Family Medicine 07/17/22 documented as of this encounter
--- OUTSIDE RECORDS SUMMARY | 2023-06-04 16:40 | External Medical Summary | Summary of Care ---
Author Name Unknown Organization [facility] Address [address] [place] [address] Phone [phone] Care Team Providers Care Cloth Measurer Name Role Phone Ryan Leyva MD Primary Care Provider [phone] Encounter Details Date Type Department Care Team (Late st Contact Info) Description 04/10/2023 Orders Only Podiatry, [facility] [address] [place] [address] Suzanne Person DPM [address] [place], [place] [id number] Allergies No known active allergiesdocumented as of this encounter (statuses as of 04/12/2023) Medications Medication Sig Dispensed Refills Start Date [...] Capsule (Lyrica)Indications :History of drug abuse ([facility]) TAKE 1 CAPSULE BY MOUTH [...] as of this encounter (statuses as of 04/12/2023) Active Problems Problem Noted Date Diagnosed Date [...] as of this encounter (statuses as of 04/12/2023) Resolved Problems Problem Noted Date Diagnosed Date [...] as of this encounter (statuses as of 04/12/2023) Immunizations Name Administration Dates Next Due COVID-19 [...] 10:20 AM EST Office Visit Family Practice [facility] [address] [place] [address] Ryan Leyva MD [address] [place] [address] 04/26/2023 10:40 AM EST Office Visit Podiatry [facility] 132 [facility] [place] [address] Suzanne Person, NEENA [address] [place] [address] [place] [address] 05/28/2023 11:15 AM EST Office Visit Ophthalmology, [facility] [address] [place] [address] Burton Schroeder DO [address] [place] [address] Health Maintenance Due Date Last Done Comments [...] interpreted or resulted by a [facility] or [facility] contracted radiologist. Suzanne Person DPM RAD CT documented in this encounter Advance Directives Latest Code Status on File Code Status Date Activated Date Inactivated Comments Full Code 02/14/2019 10:34 PM 02/20/2019 3:48 PM This order reflects the patients wishes and were consensually agreed upon. Question Answer Comments Discussion of Advance Directives occurred with: Not Discussed Care Teams Cloth Measurer Relationship Specialty Start Date End Date Ryan Leyva MD [address] [place] [address] PCP - General Family Medicine 07/17/22 documented as of this encounter
--- OUTSIDE RECORDS SUMMARY | 2023-06-04 16:40 | External Medical Summary | Summary of Care ---
Author Name Unknown Organization [facility] Address [address] [place] [address] Phone [phone] Care Team Providers Care High Court Justice Name Role Phone Ryan Leyva MD Primary Care Provider [phone] Encounter Details Date Type Department Care Team (Late st Contact Info) Description 04/15/2023 Telephone Orthopaedics [facility] [address] [facility] [place] [address] Suzanne Person, DPCaitie [address] [place] [address] Allergies No known active allergiesdocumented [...] Capsule (Lyrica)Indications :History of drug abuse ([facility]) TAKE 1 CAPSULE BY MOUTH IN [...] encounter Miscellaneous Notes * Telephone Encounter - Norma Boudreaux LPN - 04/15/2023 10:00 AM EST Telephone message from pt requesting guidance on weight bearing status. States he had CT done 04/10/23. Follow up appt is 04/26/23. Norma MACE documented in this encounter Plan of Treatment Upcoming Encounters Date Type Department Care Team (Late st Contact Info) Description 04/19/2023 10:20 AM EST Office Visit Family Practice [facility] [address] [place] [address] Ryan Leyva MD [address] [place] [address] 04/26/2023 10:40 AM EST Office Visit Podiatry [facility] [address] [place] [address] Suzanne Person, DPM [address] [place] [address] 05/28/2023 11:15 AM EST Office Visit Ophthalmology, [facility] [address] [place] [address] Burton Schroeder, [address] [place] [address] Health Maintenance Due Date Last Done Comments [...] Directives occurred with: Not Discussed Care Teams High [address] Justice Relationship Specialty Start Date End Date Ryan Leyva MD [address] [place] [address] PCP - General Family Medicine 07/17/22 documented as of this encounter
--- OUTSIDE RECORDS SUMMARY | 2023-06-04 16:40 | External Medical Summary | Summary of Care ---
Author Name Unknown Organization [facility] Address [address] [place] [address] Phone [phone] Care Team Providers Care Lead Care Manager Name Role Phone Ryan Leyva MD Primary Care Provider [phone] [phone] Reason for Visit * Reason Onset Date Comments Letter Requests 04/09/2023 Encounter Details Date Type Department Care Team ([facility] st Contact Info) Description 04/09/2023 Telephone Family Practice [facility] [address] [place] [address] Ryan Leyva MD [address] [facility] [place] [id number] Letter Requests Allergies No known active allergiesdocumented as of this encounter (statuses as of 04/10/2023) Medications Medication Sig Dispensed Refills Start Date [...] Oral Capsule (Lyrica)Indications :History of drug abuse ([facility]) TAKE 1 CAPSULE BY MOUTH IN THE [...] as of this encounter (statuses as of 04/10/2023) Active Problems Problem Noted Date Diagnosed Date [...] as of this encounter (statuses as of 04/10/2023) Resolved Problems Problem Noted Date Diagnosed Date [...] as of this encounter (statuses as of 04/10/2023) Immunizations Name Administration Dates Next Due COVID-19 [...] encounter Miscellaneous Notes * Telephone Encounter - Tonie Rodriguez LPN - 04/10/2023 2:41 PM EDT Faxed letter as requested, pt aware * Telephone Encounter - Ryan Leyva MD - 04/09/2023 12:50 PM EDT Letter written. * Telephone Encounter - Tonie Rodriguez LPN - 04/09/2023 11:57 AM EDT Pt scheduled for next Saturday for OV, showed up here today after appt with podiatry sternly asking for something for pain, states podiatry says he is having nerve pain. Pt also asking if we can send aletter in for medical marijuana. Please advise documented in this encounter Plan of Treatment Upcoming Encounters Date Type Department Care Team (Late st Contact Info) Description 04/19/2023 10:20 AM EST Office Visit Family Practice [facility] [place] [address] Ryan Leyva MD [address] [place] [address] 04/26/2023 10:40 AM EST Office Visit Podiatry [facility] [address] [facility] [place] [address] Suzanne ePrson DPM [address] [facility] [place] [address] Health Maintenance Due Date Last Done Comments [...] as of this encounter Visit Diagnoses Diagnosis 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HCC)- Primary Opioid type dependence, unspecified documented in this encounter Advance Directives Latest Code Status on File Code Status Date Activated Date Inactivated Comments Full Code 02/14/2019 10:34 PM 02/20/2019 3:48 PM This order reflects the patients wishes and were consensually agreed upon. Question Answer Comments Discussion of Advance Directives occurred with: Not Discussed Care Teams Lead Care Manager Relationship Specialty Start Date End Date Ryan Leyva MD [address] [place] [address] PCP - General Family Medicine 07/17/22 documented as of this encounter
--- OUTSIDE RECORDS SUMMARY | 2023-06-04 16:40 | External Medical Summary | Summary of Care ---
Author Name Unknown Organization [facility] Address [address] [place] [address] Phone [phone] Care Team Providers Care Real Estate Subagent Name Role Phone Ryan Leyva MD Primary Care Provider [phone] Reason for Visit * Reason Onset Date Comments Test Results 04/12/2023 Advice 04/12/2023 Encounter Details Date Type Department Care Team ([facility] Contact Info) Description 04/12/2023 Telephone Podiatry, [address] [address] Suzanne Person DPM [address] [place] [address] Test Results; Advice Allergies No [...] goal of less than 7.0% ([facility]) TAKE 1 TABLET BY MOUTH EVERY MORNING 90 Tablet 0 01/26/2023 Active methylPREDNISolone 4 MG Oral Tablet Therapy Pack (Medrol Dosepack) follow package directions 21 Tablet 0 03/18/2023 Active Pregabalin 50 MG Oral Capsule (Lyrica)Indications :History of drug abuse ([facility]) TAKE 1 CAPSULE BY MOUTH IN [...] Telephone Encounter - Shannon Mensah - 04/17/2023 11:10 AM EST LVM for patient to call Per dr. Person message below offer 8:40 or 11:40 on 04/19 fup * Telephone Encounter - Linda North OSA [...] The best number to call back is [phone] documented in this encounter Plan of Treatment Upcoming Encounters Date Type Department Care Team (Late st Contact Info) Description 04/19/2023 10:20 AM EST Office Visit Family Practice [facility] [address] [place] [address] Ryan Leyva MD [address] [place] [address] 04/26/2023 10:40 AM EST Office Visit Podiatry [facility] [address] [place] [address] Suzanne Person, NEENA 400 [facility] [place] [address] 05/28/2023 11:15 AM EST Office Visit Ophthalmology, [facility] [address] [place] [address] Burton Schroeder, DO [address] [place] [address] Health Maintenance Due Date Last Done Comments [...] Directives occurred with: Not Discussed Care Teams Real Estate Subagent Relationship Specialty Start Date End Date Ryan Leyva MD [address] [place] [address] PCP - General Family Medicine 07/17/22 documented as of this encounter
--- OUTSIDE RECORDS SUMMARY | 2023-06-04 16:40 | External Medical Summary | Summary of Care ---
Author Name Unknown Organization [facility] Address [address] [place] [address] Phone [phone] Care Team Providers Care Chicken Cleaner Name Role Phone Ryan Leyva MD Primary Care Provider [phone] [phone] Encounter Details Date Type Department Care Team (Late st Contact Info) Description 04/15/2023 Telephone Orthopaedics [facility] [address] [facility] [place] [address] Suzanne Person, DPCaitie [address] [place] [address] Allergies No known active allergiesdocumented [...] encounter Miscellaneous Notes * Telephone Encounter - Suzanne Person DPM [...] 10:20 AM EST Office Visit Family Practice [facility] [address] [place] [address] Ryan Leyva MD [address] [facility] [place] [address] 04/26/2023 10:40 AM EST Office Visit Podiatry [facility] 132 [facility] [place] [address] Suzanne Person DPM [address] [place] [address] 05/28/2023 11:15 AM EST Office Visit Ophthalmology, [facility] 132 [facility] [place] [address] Burton Schroeder DO [address] [place] [address] Health Maintenance Due Date Last Done Comments [...] 03/18/2019, Additional history exists HbA1c 10/04/2023 04/04/2023, 06/11/2022, 11/01/2021, Additional history exists Diabetic Eye Exam [...] Directives occurred with: Not Discussed Care Teams Chicken Cleaner Relationship Specialty Start Date End Date Ryan Leyva MD [address] [place] [address] PCP - General Family Medicine 07/17/22 documented as of this encounter
--- OUTSIDE RECORDS SUMMARY | 2023-06-04 16:40 | External Medical Summary | Summary of Care ---
Author Name Unknown Organization [facility] Address [address] [place] [address] Phone [phone] Care Team Providers Care Lodging Manager Name Role Phone Ryan Leyva MD Primary Care Provider [phone] [phone] Encounter Details Date Type Department Care Team (Late st Contact Info) Description 04/09/2023 Orders Only Family [facility] [address] [place] [address] Ryan Leyva MD [address] [place] [address] Allergies No known active allergiesdocumented as of [...] :History of drug abuse ([facility]) TAKE 1 CAPSULE BY MOUTH [...] 04/26/2023 10:40 AM EST Office Visit Podiatry [facility] 132 [facility] [place] [address] Suzanne Person, DPCaitie 400 [facility] [place] [address] Pending Results Name Type Priority Associated Diagnoses Date /Time HEPATITIS C ANTIBODY Lab Routine 03/11 Health Maintenance Due Date Last Done Comments [...] Directives occurred with: Not Discussed Care Teams Lodging Manager Relationship Specialty Start Date End Date Ryan Leyva MD [address] [place] [address] PCP - General Family Medicine 07/17/22 documented as of this encounter
--- OUTSIDE RECORDS SUMMARY | 2023-06-04 16:41 | External Medical Summary | Summary of Care ---
Author Name Unknown Organization [facility] Address [address] [place] [address] Phone [phone] Care Team Providers Care House Painter Name Role Phone Ryan Leyva MD Primary Care Provider [phone] Reason for Referral * Evaluate & Treat - Unlimited Visits (Within 10 days (routine)) - Pending Review Specialty Diagnoses / Procedures Referred By Stefanie del valle Referred To Contact Podiatry Diagnoses Plantar fasciitis Ryan Leyva MD [address] [place] [address] Referral ID Status Reason Start Date Expiration Date Visits Requested Visits Authorized [id number] Pending Review Specialty Services Required 02/15/[phone] Question Answer Referral Priority Within 10 days (routine) Which condition are you referring this patient for? Hammer Toes Reason for Visit * Reason Comments Sore Foot Pt c/o R foot pain, pt requesting ortho referral Encounter Details Date Type Department Care Team Description 02/15/2023 Office Visit Family Practice [facility] [address] [place] [address] Ryan Leyva MD [address] [place] [address] Plantar fasciitis*; History of type 1 diabetes mellitus Allergies No known active allergiesdocumented as of this encounter (statuses as of 02/15/2023) Medications Medication Sig Dispensed Refills Start Date [...] 50 mL by mouth daily. 0 Active clonazePAM 0.5 MG Oral Tablet (KlonoPIN)Indica tions:JOB (generalized anxiety disorder) Take 1 Tablet by mouth 2 times a day as needed for Anxiety. 60 Tablet 1 12/04/2022 Active Carvedilol 6.25 MG Oral Tablet (Coreg) Take 1 Tablet by mouth in the morning and 1 Tablet before bedtime. 180 Tablet 3 01/14/2023 Active Pregabalin 50 MG Oral Capsule (Lyrica)Indicati ons:History of drug abuse (HCC) Take 1 Capsule by mouth in the morning and 1 Capsule at noon and 1 Capsule before bedtime. 90 Capsule 0 01/14/2023 Active Rosuvastatin Calcium 10 MG Oral Tablet (Crestor)Indicat ions:Type 1 diabetes mellitus with hemoglobin A1c goal of less than 7.0% ([facility]) TAKE 1 TABLET BY MOUTH EVERY MORNING 90 Tablet 0 01/26/2023 Active Acetaminophen 325 MG Oral Tablet (Tylenol) Take 3 Tablets by mouth in the morning and 3 Tablets at noon and 3 Tablets before bedtime. 0 10/21/2022 02/15/2023 Discontinued Hospital, Clinic, or Other Facility Administered [...] 1.5 mg PERINEURAL PRN 06/29/2022 06/29/2023 Active lidocaine 1 % inj 10 mgIndications:Plantar fasciitis 10 mg IX ONCE 02/15/2023 02/15/2023 Active Triamcinolone Acetonide (Kenalog) 40 MG/ML inj 40 mgIndications:Plantar fasciitis 40 mg IX ONCE 02/15/2023 02/15/2023 Active documented as of this encounter (statuses as of 02/15/2023) Active Problems Problem Noted Date Venous stasis of both lower extremities 01/14/2023 Methadone maintenance therapy patient History of type 1 diabetes mellitus 12/2022 Overview: 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 Overweight (BMI 25.0-29.9) 01/12/2023 History of drug abuse 10/30/2022 Overview: IVDA JOB (generalized anxiety disorder) 10/28 Kidney replaced by transplant 07/16/2022 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 07/16/19 Hepatitis C virus infection cured after antiviral drug therapy 04/26/2020 Overview: HCV treated; SVR confirmed 04/18/2020 Seizure disorder 02/14/2019 HTN, goal below 130/80 10/18/2016 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 07/24/2016 documented as of this encounter (statuses as of 02/15/2023) Resolved Problems Problem Noted Date Resolved Date DKA (diabetic ketoacidoses) 02/20/2019/0 11/2022 Acute respiratory failure with hypoxia 9 07/16/2022 Aspiration pneumonia 02/20/2019 07/16/2022 Type 1 diabetes mellitus with ketoacidosis witho ut coma 02/16/2019 07/16/2022 Hypertensive emergency without congestive heart failure 02/16/2019 07/16/2022 Encephalopathy acute 02/16/2019 07/16/2022 ESRD on peritoneal dialysis 10/18/[address] 11/2022 Type 1 diabetes mellitus wit h hemoglobin A1c goal of less than 7.0% 10/18/2016 01/14/2023 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 07/24/2016 07/17/2022 Overview: ICD-10 update of inactive term Hepatitis C 06/10/2016 04/26/2020 Overview: HCV treated; SVR confirmed 04/18/2020 documented as of this encounter (statuses as of 02/15/2023) Immunizations Name Administration Dates Next Due COVID-19 mRNA, LNP-s, No Pre serve, 2-Dose Series (Moderna) 08/09/2020,07/12/2020 Seasonal Influenza Virus Vac cine, Unspecified Formulation 05/10/2018,07/15/2017 Seasonal Influenza, PF, 6 mo ns & Above, IM , (Flulaval) 03/07/2020,03/18/2019 Seasonal Influenza, Quadriva lent,with Preserve, 3 [...] = 0.6 oz pur e alcohol) Sex Assigned at Date Recorded Not on file Job Start Date Occupation Industry Not on file Not on file Not on file documented as of this encounter Last Filed Vital Signs Vital Sign Reading Time Taken Comments Blood Pressure 118/68 02/15/2023 8:02 AM EDT Pulse 60 02/15/2023 8:02 AM EDT Temperature 36.2 C (97.2 F) 02/15/2023 8:02 AM ED T Respiratory Rate - - Oxygen Saturation - - Inhaled Oxygen Concentration - - Weight - - Height - - Body Mass Index - - documented in this encounter Functional Status Functional Status Response Date of Assess ment Does this person have seriou s difficulty walking or climbing stairs? Yes 10/28/2018 documented as of this encounter Progress Notes * Ryan Leyva MD - 02/15/2023 10:24 AM EDT SUBJECTIVE: Bernard Jones is a 37 year old male. Chief Complaint Patient presents with Sore Foot Pt c/o R foot pain, pt requesting ortho referral HPI: Bernard is pleasant and medically complex, but stable 37 year old male who has been struggling with severely symptomatic plantar fasciitis of the right heel. He saw a supervisor phosphorus processing for this who did not feel comfortable injecting his heel due to his history of diabetes and his overall medical complexity.Bernard called his transplant team who told him it would be fine for him to have a steroid injection for plantar fasciitis. I told him that I perform these, and thus he scheduled to see me today. He would also like a referral to podiatry to address his hammer toe. 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 clonazePAM 0.5 MG Oral Tablet (KlonoPIN) Take 1 Tablet by mouth 2 times a day as needed for Anxiety. 60 Tablet 1 Carvedilol 6.25 MG Oral Tablet (Coreg) Take 1 Tablet by mouth in the morning and 1 Tablet before bedtime. 180 Tablet 3 Pregabalin 50 MG Oral Capsule (Lyrica) Take 1 Capsule by mouth in the morning and 1 Capsule at noonand 1 Capsule before bedtime. 90 Capsule 0 Rosuvastatin Calcium 10 MG Oral Tablet (Crestor) TAKE 1 TABLET BY MOUTH EVERY MORNING 90 Tablet 0 Current Facility-Administered Medications Medication Dose Route Frequency Provider Last Rate Last Admin bevaCIZumab (Avastin) inj 1.25 mg 1.25 mg Intravitreal PRN Deepakopher Eligio Cessna, DO 1.25 mg at 12/17/22 1327 ROPivacaine (Naropin) inj 1.5 mg 1.5 mg Perineural PRN Burton Del [place]le Cessna, DO 1.5 mg at 12/17/22 1326 lidocaine 1 % inj 10 mg 1 mL Intra-Articular Once Ryan Leyva MD Triamcinolone Acetonide (Kenalog) 40 MG/ML inj 40 mg 40 mg Intra-Articular Once Ryan Leyva MD Allergy: Review of patient's allergies indicates: No Known Allergies OBJECTIVE: BP 118/68 (BP Site: Right Arm, BP Position: Sitting, BP Cuff Size: Regular) | Pulse 60 | Temp 36.2 C (97.2 F) (Tympanic) Gen: aao x 3, nad Ext: b/l stasis dermatitis of both legs PROCEDURE - Injection of Heel for Plantar Fasciitis Discussed with the patient the indications for procedure, other treatment options, possible risks and complications of the procedure (including bleeding, infection, skin atrophy, and foot injury). right Foot prepped with betadine. 1 cc(40mg/ml)kenalog and 1 cc 1% lidocaine without epi injected with a 1 1/2 cc 25 guage needle via a medial approach. Patient tolerated injection well. Discussed need for follow up if not improved in 1 week or if symptoms change or worsen. ASSESSMENT AND PLAN: (M72.2) Plantar fasciitis (primary encounter diagnosis) Plan: PODIATRY REFERRAL OP, lidocaine 1 % inj 10 mg, Triamcinolone Acetonide (Kenalog) 40 MG/ML inj 40 mg, ARTHROCENT ASP AND/OR INJ SMALL JX /BURSA W/O US (Z86.39) History of type 1 diabetes mellitus Plan: resolved after transplant Follow up as needed. No other complaints were offered at this time. Ryan Leyva MD documented in this encounter Nursing Notes * Tonie Rodriguez LPN - 02/15/2023 8:02 AM EDT The patient has been properly identified by confirmation of name and date of . Chief Complaint Patient presents with Sore Foot Pt c/o R foot pain, pt requesting ortho referral documented in this encounter Plan of Treatment Upcoming Encounters Date Type Specialty Care Team Description 02/21/2023 Office Visit Podiatry Suzanne Person, NEENA [address] [place] [address] [place] [address] Scheduled Orders Name Type Priority Associated Diagnoses Orde r Schedule ARTHROCENT ASP AND/OR INJ SMALL JX /BURSA W/O US Procedures Routine Plantar fasciitis Ordered: 02/15/2023 Scheduled Referrals Name Type Priority Associated Diagnoses Orde r Schedule PODIATRY REFERRAL OP Referral Within 10 days (routine) Plantar fasciitis Ordered: 02/15/2023 Health Maintenance Due Date Last Done Comments [...] 03/07/2020, 03/07/2020, 03/18/2019, Additional history exists HbA1c 06/04/2023 12/03/2022, 10/09, 09/14/2021, Additional history exists GFR 12/04/2023 12/03/2022, 10/08, 04/18/2022, Additional history exists DTaP,Tdap,and Td Vaccines (3 - Td or Tdap) 06/21/2028 06/21/2018, 12/05/2011 Hepatitis C Screening Completed 11/09/2020 , 11/09/2020, 04/18/2020, Additional history exists GARDASIL-HPV IMMUNIZATION SERIES Aged Out No longer eligible based on patient's age to complete this topic MENINGOCOCCAL (MENACTRA/MENVEO) Aged Out No longer eligible based on patient's age to complete this topic documented as of this encounter Medical Devices Not on filedocumented as of this encounter Visit Diagnoses Diagnosis Plantar fasciitis- Primary Plantar fascial fibromatosis History of type 1 diabetes mellitus Personal history of other endocrine, metabolic, and immunity disorders documented in this encounter Advance Directives Latest Code Status on File Code Status Date Activated Date Inactivated Comments Full Code 02/14/2019 10:34 PM 02/20/2019 3:48 PM This order reflects the patients wishes and were consensually agreed upon. Question Answer Comments Discussion of Advance Directives occurred with: Not Discussed Care Teams House Painter Relationship Specialty Start Date End Date Ryan Leyva MD [address] [place] [address] PCP - General Family Medicine 07/17/22 documented as of this encounter"
--- OUTSIDE RECORDS SUMMARY | 2023-06-04 16:41 | External Medical Summary | Summary of Care ---
Author Name Unknown Organization [facility] Address [address] [place] [address] Phone [phone] Care Team Providers Care Bowl Turner Name Role Phone Farida Do MD Primary Care Provider [phone] Reason for Visit * Reason Comments eRx-Medication Refill Encounter Details Date Type Department Care Team Description 03/02/2023 Refill Family Practice [facility] [address] [place] [address] Farida Do MD [address] [place] [address] JOB (generalized anxiety disorder) Allergies No known active allergiesdocumented as of this encounter (statuses as of 03/04/2023) Medications Medication Sig Dispensed Refills Start Date [...] 01/26/2023 Active clonazePAM 0.5 MG Oral Tablet (KlonoPIN)Indica tions:JOB (generalized anxiety disorder) TAKE 1 TABLET BY MOUTH 2 TIMES A DAY NEEDED FOR ANXIETY 60 Tablet 1 03/04/2023 Active clonazePAM 0.5 MG Oral Tablet (KlonoPIN)Indica tions:JOB (generalized anxiety disorder) Take 1 Tablet by mouth 2 times a day as needed for Anxiety. 60 Tablet 1 12/04/2022 03/04/2023 Discontinued Hospital, Clinic, or Other Facility Administered [...] as of this encounter (statuses as of 03/04/2023) Active Problems Problem Noted Date Venous stasis [...] as of this encounter (statuses as of 03/04/2023) Resolved Problems Problem Noted Date Resolved Date DKA (diabetic ketoacidoses) 02/20/201911/2022 Acute respiratory failure with hypoxia 9 07/16/2022 Aspiration pneumonia 02/20/2019 07/16/2022 Type 1 diabetes mellitus with ketoacidosis witho ut coma 02/16/2019 07/16/2022 Hypertensive emergency without congestive heart failure 02/16/2019 07/16/2022 Encephalopathy acute 02/16/2019 07/16/2022 ESRD on peritoneal dialysis 10/18/201611/2022 Type 1 diabetes mellitus wit h hemoglobin A1c goal of less than 7.0% 10/18/2016 01/14/2023 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 07/24/2016 07/17/2022 Overview: ICD-10 update of inactive term Hepatitis C 06/10/2016 04/26/2020 Overview: HCV treated; SVR confirmed 04/18/2020 documented as of this encounter (statuses as of 03/04/2023) Immunizations Name Administration Dates Next Due COVID-19 [...] Telephone Encounter - Farida Do MD - 03/04/2023 7:54 AM EDTSigned Prescriptions: Disp Refills clonazePAM 0.5 MG Oral Tablet (KlonoPIN) 60 Tab*1 Sig: TAKE 1 TABLET BY MOUTH 2 TIMES A DAY NEEDED FOR ANXIETY Authorizing Provider: FARIDA DO * Telephone Encounter - Dipika Desir, [facility] - 03/04/2023 5:10 AM EDTPending Prescriptions: Disp Refills clonazePAM 0.5 MG Oral Tablet (KlonoPIN) 60 Tab*1 Sig: TAKE 1 TABLET BY MOUTH 2 TIMES A DAY NEEDED FOR ANXIETY * Telephone Encounter - Dipika Desir RPh - 03/04/2023 5:09 AM EDT I have reviewed the patients controlled substance dispensing history in the Prescription Drug Monitoring Program in compliance with the [facility] regulations before prescribing a controlled substance. PDMP checked on 03/04/2023. Pending Prescriptions: Disp Refills clonazePAM 0.5 MG Oral Tablet (KlonoPIN) *60 Tab*1 Sig: TAKE 1 TABLET BY MOUTH 2 TIMES A DAY NEEDED FOR ANXIETY Last Visit: 02/15/2023 (in office), 01/14/2023 (telemedicine) Next Visit: Visit date not found Date medication was last filled: 02/02 Date medication is due for refill: 03/04 Pharmacy: [id number] [facility] Is this request for a controlled substance? [...] Cutoff Concentration Please approve if appropriate. Thank you, Dipika Desir, PharmD. Clinical Pharmacist [facility] ([facility]) (formerly Telepharmacy) 03/04/2023, 5:09 AM documented in this encounter Plan of Treatment Upcoming Encounters Date Type Specialty Care Team Description 04/05/2023 Office Visit Podiatry Suzanne Person DPM [address] [facility] [place] [id number] Health Maintenance Due Date Last Done Comments [...] Directives occurred with: Not Discussed Care Teams Bowl Turner Relationship Specialty Start Date End Date Farida Do MD [address] [place] [address] PCP - General Family Medicine 07/17/22 documented as of this encounter
--- OUTSIDE RECORDS SUMMARY | 2023-06-04 16:41 | External Medical Summary | Summary of Care ---
Author Name Unknown Organization [facility] Address [address] [place] [address] Phone [phone] Care Team Providers Care Telephone Sex Worker Name Role Phone Ryan Leyva MD Primary Care Provider [phone] Reason for Referral * Evaluate & Treat - Unlimited Visits (Within 10 days (routine)) - Pending Review Specialty Diagnoses / Procedures Referred By Stefanie arango Referred To Contact Physical Therapy / Physical Medicine And Rehab Diagnoses Pain in both feet Plantar fasciitis, bilateral Hammertoe of right foot Numbness in feet Suzanne Person DPM [address] [place] [address] Referral ID Status Reason Start Date Expiration Date Visits Requested Visits Authorized [id number] Pending Review Specialty Services Required 02/21/[phone] Question Answer Referral Priority Within 10 days (routine) Comments Please evaluate and treat. Plantar fasciitis bilaterally with weakness and tightness. Consider range of motion, stretching, strengthening, and gait training. Reason for Visit * Reason Comments NEW PATIENT R heel * Evaluate & Treat - Unlimited Visits (Within 10 days (routine)) - Authorized Specialty Diagnoses / Procedures Referred By Stefanie arango Referred To Contact Podiatry Diagnoses Plantar fasciitis Ryan Leyva MD [address] [place] [address] Referral ID Status Reason Start Date Expiration Date Visits Requested Visits Authorized [id number] Authorized Specialty Services Required 02/15/2023 08/20/[phone] Encounter Details Date Type Department Care Team Description 02/21/2023 Office Visit Podiatry [facility] [address] [place] [address] Suzanne Person DPM [address] [facility] [place] [id number] Pain in both feet*; Plantar fasciitis, bilateral; Hammertoe of right foot; Numbness in feet; Plantar fasciitis [M72.2 (ICD-10-CM)] Allergies No known active allergiesdocumented as of this encounter (statuses as of 02/21/2023) Medications Medication Sig Dispensed Refills Start Date [...] 0 Active clonazePAM 0.5 MG Oral Tablet (KlonoPIN)Indication s:JOB (generalized anxiety disorder) Take 1 Tablet by mouth 2 times a day as needed for Anxiety. 60 Tablet 1 12/04/2022 Active Carvedilol 6.25 MG Oral Tablet (Coreg) Take 1 Tablet by mouth in the morning and 1 Tablet before bedtime. 180 Tablet 3 01/14/2023 Active Pregabalin 50 MG Oral Capsule (Lyrica)Indications: History of drug abuse (HCC) Take 1 Capsule by mouth in the morning and 1 Capsule at noon and 1 Capsule before bedtime. 90 Capsule 0 01/14/2023 Active Rosuvastatin Calcium 10 MG Oral Tablet (Crestor)Indications :Type 1 diabetes mellitus with hemoglobin A1c goal of less than 7.0% (FORMERLY [facility]) TAKE 1 TABLET BY MOUTH EVERY MORNING [...] 1.5 mg PERINEURAL PRN 06/29/2022 06/29/2023 Active bupivacaine (Sensorcaine) 0.5 % inj 2.5 mgIndications:Pain in both feet,Plantar fasciitis, bilateral 2.5 mg IJ ONCE 02/21/2023 02/22/2023 Acti ve dexamethasone sodium phosphate 20 MG/5ML inj 2 mgIndications:Pain in both feet,Plantar fasciitis, bilateral 2 mg IJ ONCE 02/21/2023 02/22/2023 Acti ve methylPREDNISolone acetate (Depo-Medrol) 20 MG/ML inj 10 mgIndications:Pain in both feet,Plantar fasciitis, bilateral 10 mg INTRABURSAL ONCE 02/21/2023 02/22/2023 Act chun documented as of this encounter (statuses as of 02/21/2023) Active Problems Problem Noted Date Venous stasis [...] as of this encounter (statuses as of 02/21/2023) Resolved Problems Problem Noted Date Resolved Date [...] as of this encounter (statuses as of 02/21/2023) Immunizations Name Administration Dates Next Due COVID-19 [...] Progress Notes * Suzanne Person, DPM - 02/21/2023 1:15 PM EDT Podiatry New Patient Note [facility] Name: Bernard Jones : 1985 Date: 02/21/2023 CHIEF COMPLAINT: heel pain, toe contracture HISTORY OF PRESENT ILLNESS: This patient is a 37 year old male who presents today with complaints of bilateral heel pain. He reports this started about 1.5 months ago. He recently had a steroid injection to the right and this did help. He did go to one session of PT but they did not have orders forboth sides so he paused this for the time being. He notes pain to both heels with the left being much worse than the right. He has a hard time walking because of this pain. He also notes being told he is weak. He questions his right toes. Toe 2 was painful about 3 weeks ago. He tried gauze underneath with his compression stockings which seemed to help but he only did this once. Bernard also has venous insufficiency. He has bandages to the legs and reports following up with someone for this issue. He has a complicated medical history. 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 He also had a kidney transplant. This was done at [facility]. He reports getting permission for steroid injections from this transplant team. He also reports some numbness type sensations to the feet. 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 NPDR (nonproliferative diabetic retinopathy) (HCC) 09/05/2016 Dr Schroeder Overweight (BMI 25.0-29.9) 01/12/2023 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 ([facility]LY [facility]) 07/16/2022 Type 1 diabetes mellitus ([facility]) 1990 Venous stasis of both lower extremities 01/14/2023 Past Surgical History: Procedure Laterality Date HC REPOSITION PERITONEAL DIALYSIS CATH INJECTION OF EYE DRUG Left 07/24/2016 # 1 Avastin OS, INJECTION OF EYE DRUG Right 08/17/2016 # 1 Avastin OD, INJECTION OF EYE DRUG Left 09/05/2016 # 2 Avastin OS, Dr Schroeder INJECTION OF EYE DRUG Right 11/22/2016 # 2 Avastin OD, Dr Schroeder INJECTION OF EYE DRUG Left 02/21/2017 # 3 Avastin OS, INJECTION OF EYE DRUG Right 04/19/2017 # 3 Avastin OD, INJECTION OF EYE DRUG Right 08/08/2017 # 4 Avastin OD, Dr. Schroeder INJECTION OF EYE DRUG Right 12/05/2017 # 5 Avastin OD, INJECTION OF EYE DRUG Right 05/22/2018 # 6 Avastin OD, Dr. Schroeder INJECTION OF EYE DRUG Left 07/08/2018 # 4 Avastin OS, Dr. Schroeder INJECTION OF EYE DRUG Right 10/09/2018 # 7 Avastin OD, INJECTION OF EYE DRUG Left 03/18/2019 # 5 Avastin OS, INJECTION OF EYE DRUG Right 03/31/2019 # 8 Avastin OD, Dr. Schroeder INJECTION OF EYE DRUG Left 06/02/2019 # 6 Avastin OS, Dr. Schroeder INJECTION OF EYE DRUG Left 08/07/2019 # 7 Avastin OS, Dr. Blunt INJECTION OF EYE DRUG Right 12/15/2019 # 9 Avastin OD, Dr. Schroeder INJECTION OF EYE DRUG Left 03/16/2020 # 8 Avastin OS, Dr. Schroeder INJECTION OF EYE DRUG Right 07/01/2020 # 10 Avastin OD, Dr. Blunt INJECTION OF EYE DRUG Left 06/29/2022 #9 Avatin OS Cessna INJECTION OF EYE DRUG Left 08/10/2022 # 10 Avastin OS, Dr. Schroeder INJECTION OF EYE DRUG Right 08/23/2022 # 11 Avastin OD; Dr Schroeder INJECTION OF EYE DRUG Right 12/17/2022 # 12 Avastin OD, Dr. Schroeder LASER TRABECULOPLASTY Right 09/10/2016 PRP of the RIGHT eye; Dr. Elda PEÑA ([facility] ONLY) Left 07/24/2016 Avastin OS Consent signed, Dr.Cessna CHOWDARY ORDER ([facility] ONLY) Right 08/17/2016 Avastin OD Consent signed, Dr.Cessna CHOWDARY ORDER ([facility] ONLY) Left 09/10/2016 23G PPV/EL/segmentation OS for PDR OS / MEHNAZ PRP OD; Dr. Elda CHOWDARY ORDER ([facility] ONLY) Bilateral 08/08/2017-08/08/2018 AVASTIN CONSENT OU SIGNED; DR ELDA CHOWDARY ORDER ([facility] ONLY) 08/06/2018-08/06/2019 AVASTIN OU CONSENT SIGNED, DR. ELDA CHOWDARY ORDER ([facility] ONLY) ACT 112 SIGNED 08/06/18 DR. ELDA CHOWDARY ORDER ([facility] ONLY) Shunt placement neck for hemodyalisis MISCELLANEOUS ORDER ([facility] ONLY) Bilateral 08/07/2019-08/07/2020 AVASTIN OU CONSENT SIGNED, DR. BLUNT MISCELLANEOUS ORDER ([facility] ONLY) ACT 112 SIGNED 08/07/2019, DR. JOSE RAUL CASTROCELLANEOUS ORDER ([facility] ONLY) Bilateral 12/15/2019-12/14/2020 AVASTIN OU CONSENT SIGNED, DR. SCHROEDER OTHER (INFORMATION) Bilateral AVASTIN OU CONSENT DR. NUÑEZ EXP. 02/02/22 OTHER (INFORMATION) AVASTIN OU CONSENT SIGNED Dr. Schroeder/Jose Raul (exp 06-29-23) PANCREAS SURGERY PROCEDURE NEC 2020 Pancreatic Transplant PARTIAL REMOVAL OF EYE FLUID Right 05/26/2018 S/P 23G PPV/MP/seg/EL for PDR/TRD/VH/ERM OD REMOVAL OF TONSILS, UNDER AGE 10 SURGICAL REMOVAL, ERUPTED TOOTH AND BONE SURGICAL REMOVAL, ERUPTED TOOTH AND BONE 01/2017 Family History Problem Relation Age of Onset Hypertension Father Lung cancer Father Hypertension Brother Diabetes Grandmother (Maternal) Diabetes Grandfather (Maternal) Diabetes Grandmother (Paternal) Diabetes Grandfather (Paternal) Cancer None Eye Problems None Denies family fx of AMD, RD, glaucoma, or blindness Heart Disorder None Stroke None Thyroid Disorder None Other (Other- from urosepsis) Mother No Known Problems Sister No Known Problems Brother Social History Socioeconomic History Marital status: Single Number of children: 1 Occupational History Occupation: disability Tobacco Use Smoking status: Former Types: Vaporizer Smokeless tobacco: Current Types: Snuff Tobacco comments: 12/07/19-quit 2 yrs ago Vaping Use Vaping Use: Never used Substance and Sexual Activity Alcohol use: No Drug use: No Sexual activity: Not Currently Partners: Female Current Outpatient Medications Medication Sig Dispense Refill [...] 1.25 mg 1.25 mg Intravitreal PRN Burton Arango Cessna, DO 1.25 mg at 12/17/22 1327 ROPivacaine (Naropin) inj 1.5 mg 1.5 mg Perineural PRN Burton Arango Cessna, DO 1.5 mg at 12/17/22 1326 ALLERGIES: Review of patient's allergies indicates: No Known Allergies REVIEW OF SYSTEMS: CONSTITUTIONAL: No fevers, sweats, or chills FOCUSED PODIATRIC EXAM: Vascular: Pedal pulses palpable including dorsalis pedis and posterior tibial artery at 2/4 bilaterally. Capillary refill time is within normal limits to all toes. Non pitting edema to the lower legs with chronic appearing discoloration. Neurologic: Sensation (light touch) intact to the bilateral lower extremities. No hypersensitivity. Mild diffuse weakness to both ankles. Musculoskeletal: Pain is reported with palpation of the left plantar medial heel and lesser pain is noted to the same location on the right. Limited ankle dorsiflexion noted on both sides. Flexible hammertoe of the right toes 2-3. Dermatological: Skin to legs and feet appears thin, mildly discolored as above. Open wounds reported, dressings to legs left intact. DIAGNOSTIC STUDIES: X-rays, bilateral foot, 02/21/2023 3 WB radiographs of both feet were obtained. This includes AP MO and Lateral. No significant soft tissue findings. No acute process such as fracture or bone changes. ASSESSMENT: 1. Pain in both feet 2. Plantar fasciitis, bilateral 3. Hammertoe of right foot 4. Numbness in feet 5. Plantar fasciitis [M72.2 (ICD-10-CM)] PLAN: I personally reviewed foot x-rays as above. I discussed likely neuropathy with plantar fasciitis asa result of weakness and tightness. Since recent right heel injection helped, I recommended he consider this on the left today which he was agreeable to. Nurse is to provide CREST pads and at home exercises. PT referral placed as well. He inquired about shoes. He is wearing decent [place] today. Uriel britt recommended he get diabetic shoes. I am not sure these would be covered by insurance as he isno longer treated for this, but he does have neuropathy. We will see how he does with treatment andalter after if still having symptoms. I recommended a steroid injection of the left heel at the plantar fascia today. I reviewed all risks, benefits, alternatives, and complications to this procedure with the patient. Risks include but are not limited to: pain, bleeding, bruising, infection, atrophy or thinning of the soft tissue, an in crease in blood glucose, allergic reaction, steroid flare, recurrence of condition, and possibilityof no improvement in condition. Non OR time Out: Time out was initiated under direction and supervision of provider Suzanne Person DPM. Correct patient identity - Yes Correct side and site - Yes Procedure matches verbalized consent -Yes Correct patient position - Yes Availability of correct implants and any special equipment or special requirements - Yes Time out occurred prior to procedure start - Yes Prophylactic antibiotic timing confirmed - N/A Witness present & agrees with the time out process. The left plantar was prepped with alcohol and chloroprep. Injection was performed using a 25 gauge needle. Injection consisted of: 0.5mL 20mg/ml Depomedrol 0.5mL of 4mg/ml dexamethasone sodium phosphate 0.5mL of 0.5% sensorcaine plain Injection was administered into the left heel near the insertion of the medial band of the plantar fascia near the calcaneus. The patient tolerated the injection well. A dry dressing was applied over injection site. The patient was instructed to rest and limit very strenuous activity for 24 hours. Follow up: 6 weeks Suzanne Person DPM documented in this encounter Nursing Notes * Jaymie Meyer LPN - 02/21/2023 1:16 PM EDT Pt presents for new visit, referred by PCP. Pain in R heel x 1 1/2 months. Received injection from PCP 02/15/2023, feels it is helping. States all of his R toes are hammertoes and causing R foot pain. Pt tried OTC insoles for plantar fasciitis, began to have pain in L foot after wearing them; pt stopped wearing insoles. Went to PT for feet, ankles; was advised to wait until after this visit to go back to PT. They suggested custom diabetic shoes. documented in this encounter Plan of Treatment Upcoming Encounters Date Type Specialty Care Team Description 04/05/2023 Office Visit Podiatry Suzanne Person DPM [address] [place] [address] [place] [phone] Pending Results Name Type Priority Associated Diagnoses Date /Time XR FOOT 3 OR MORE VIEWS Medical Imaging Routine Pain in both feet 02/21/2023 1:37 PM EDT Scheduled Referrals Name Type Priority Associated Diagnoses Orde r Schedule PHYSICAL THERAPY REFERRAL OP Referral Within 10 days (routine) Pain in both feet Plantar fasciitis, bilateral Hammertoe of right foot Numbness in feet Ordered: 02/21/2023 Health Maintenance Due Date Last Done Comments [...] of this encounter Visit Diagnoses Diagnosis Pain in both feet- Primary Pain in limb Plantar fasciitis, bilateral Plantar fascial fibromatosis Hammertoe of right foot Numbness in feet Disturbance of skin sensation Plantar fasciitis [M72.2 (ICD-10-CM)] Plantar fascial fibromatosis documented in this encounter Advance Directives Latest Code Status on File Code Status Date Activated Date Inactivated Comments Full Code 02/14/2019 10:34 PM 02/20/2019 3:48 PM This order reflects the patients wishes and were consensually agreed upon. Question Answer Comments Discussion of Advance Directives occurred with: Not Discussed Care Teams Telephone Sex Worker Relationship Specialty Start Date End Date Ryan Leyva MD [address] [place] [address] PCP - General Family Medicine 07/17/22 documented as of this encounter
--- OUTSIDE RECORDS SUMMARY | 2023-06-04 16:41 | External Medical Summary | Summary of Care ---
Author Name Unknown Organization [facility] Address [address] [place] [address] Phone [phone] Care Team Providers Care Web Coordinator Name Role Phone Ryan Leyva MD Primary Care Provider [phone] Encounter Details Date Type Department Care Team (Late st Contact Info) Description 04/04/2023 Result Scan Unspecified Department <No scans attached> Allergies No known active allergiesdocumented as of this encounter (statuses as of 04/08/2023) Medications Medication Sig Dispensed Refills Start Date [...] than 7.0% ([facility]) TAKE 1 TABLET BY MOUTH EVERY MORNING 90 Tablet 0 01/26/2023 Active methylPREDNISolone 4 MG Oral Tablet Therapy Pack (Medrol Dosepack) follow package directions 21 Tablet 0 03/18/2023 Active Pregabalin 50 MG Oral Capsule (Lyrica)Indications :History of drug abuse ([facility]) TAKE 1 CAPSULE BY MOUTH IN THE [...] as of this encounter (statuses as of 04/08/2023) Active Problems Problem Noted Date Diagnosed Date [...] as of this encounter (statuses as of 04/08/2023) Resolved Problems Problem Noted Date Diagnosed Date [...] as of this encounter (statuses as of 04/08/2023) Immunizations Name Administration Dates Next Due COVID-19 [...] 04/09/2023 9:45 AM EDT Office Visit Ophthalmology, [facility] [address] [facility] [place] [address] Burton Schroeder, [address] [facility] [place] [address] 04/11/2023 9:15 AM EDT Imaging Radiology [facility] [address] [facility] [place] [address] 04/26/2023 10:40 AM EST Office Visit Podiatry [address] [place] [address] Suzanne Person, NEENA [address] [facility] [place] [address] Health Maintenance Due Date Last Done Comments [...] 10/04/2023 04/04/2023, 11/09, 11/01/2021, Additional history exists GFR 04/04/2024 04/04/2023, 11/09, [...] Procedure Name Priority Date/Time Associated Diagnosis Comments OUTSIDE LAB RESULTS 04/04/2023 documented in this encounter Results * OUTSIDE LAB RESULTS (04/04/2023) 04/04/2023 No Physician Data Unknown LABORATORY documented in this encounter Advance Directives Latest Code Status on File Code Status Date Activated Date Inactivated Comments Full Code 02/14/2019 10:34 PM 02/20/2019 3:48 PM This order reflects the patients wishes and were consensually agreed upon. Question Answer Comments Discussion of Advance Directives occurred with: Not Discussed Care Teams Web Coordinator Relationship Specialty Start Date End Date Ryan Leyva MD [address] [place] [address] PCP - General Family Medicine 07/17/22 documented as of this encounter
--- OUTSIDE RECORDS SUMMARY | 2023-06-04 16:41 | External Medical Summary | Summary of Care ---
Author Name Unknown Organization [facility] Address [address] [place] [address] Phone [phone] Care Team Providers Care Risk Management Analyst Name Role Phone Ryan Leyva MD Primary Care Provider [phone] Reason for Visit * Reason Onset Date Comments Test Results 04/08/2023 Encounter Details Date Type Department Care Team ([facility] st Contact Info) Description 04/08/2023 Telephone Podiatry, [address] [address] Suzanne Person DPM [address] [place] [address] Test Results Allergies No known active allergiesdocumented as of [...] Oral Capsule (Lyrica)Indications :History of drug abuse ([facility]) TAKE 1 CAPSULE BY MOUTH [...] Telephone Encounter - Suzanne Person DPM - 04/08/2023 10:55 AM EDT Would you be able to call Bernard today. I had spoke with him on Saturday regarding x-ray findings. Theradiologist called today with concerns of the left midfoot. These are not as obvious. Just wanted to make sure he is feeling better overall. We can consider a post-op shoe to the left if he feels this would help. I had booted the right as this is the worse side. Suzanne Wilde documented in this encounter Plan of Treatment Upcoming Encounters Date Type Department Care Team (Late st Contact Info) Description 04/09/2023 9:45 AM EDT [facility] [place] [address] Burton Schroeder, DO [address] [place] [address] 04/26/2023 10:40 AM EST Office Visit Podiatry [facility] [address] [place] [address] Suzanne Person, DPM [address] [facility] [place] [address] Health Maintenance Due Date Last Done Comments [...] Directives occurred with: Not Discussed Care Teams Risk Management Analyst Relationship Specialty Start Date End Date Ryan Leyva MD [address] [place] [address] PCP - General Family Medicine 07/17/22 documented as of this encounter
--- OUTSIDE RECORDS SUMMARY | 2023-06-04 16:41 | External Medical Summary | Summary of Care ---
Author Name Unknown Organization [facility] Address [address] [place] [address] Phone [phone] Care Team Providers Care Claim Manager Name Role Phone Ryan Leyva MD Primary Care Provider [phone] Reason for Visit * Reason Onset Date Comments Referral 02/19/2023 Encounter Details Date Type Department Care Team Description 02/19/2023 Telephone Family Practice [facility] [address] [employer] [address] [place] [address] Ryan Leyva MD [address] [employer] [place] [address] Referral Allergies No known active allergiesdocumented as of this encounter (statuses as of 02/20/2023) Medications Medication Sig Dispensed Refills Start Date [...] as of this encounter (statuses as of 02/20/2023) Active Problems Problem Noted Date Venous stasis [...] as of this encounter (statuses as of 02/20/2023) Resolved Problems Problem Noted Date Resolved Date [...] as of this encounter (statuses as of 02/20/2023) Immunizations Name Administration Dates Next Due COVID-19 [...] encounter Miscellaneous Notes * Telephone Encounter - Marsha Reynoso LPN - 02/19/2023 4:59 PM EDT Referral is in chart * Telephone Encounter - ZEINA Mendoza - 02/19/2023 4:01 PM EDT Pt has an appt 02/21 w/ Dr. Person @ [facility] for R foot hammer toe. Since Dr. Leyva referred him to podiatry, he developed L foot plantar fasciitis, and is needing that added to his referral. Pls resend referral w/ new dx listed. Pt would like a call to confirm once this has been done. documented in this encounter Plan of Treatment Upcoming Encounters Date Type Specialty Care Team Description 02/21/2023 Office Visit Podiatry Suzanne Person, NEENA [address] [place] [address] Health Maintenance Due Date Last Done [...] Directives occurred with: Not Discussed Care Teams Claim Manager Relationship Specialty Start Date End Date Ryan Leyva MD [address] [place] [address] PCP - General Family Medicine 07/17/22 documented as of this encounter
--- OUTSIDE RECORDS SUMMARY | 2023-06-04 16:41 | External Medical Summary | Summary of Care ---
Author Name Unknown Organization [facility] Address [address] [place] [address] Phone [phone] Care Team Providers Care Metal Patternmaker Apprentice Name Role Phone Ryan Leyva MD Primary Care Provider [phone] Reason for Referral * Evaluate & Treat - Unlimited Visits (Within 10 days (routine)) - Pending Review Specialty Diagnoses / Procedures Referred By Stefanie del valle Referred To Contact Podiatry Diagnoses Plantar fasciitis Ryan Leyva MD [address] [place] [address] Referral ID Status Reason Start Date Expiration Date Visits Requested Visits Authorized [id number] Pending Review Specialty Services Required 02/15/2023 999 999 Question Answer Referral Priority Within 10 days (routine) Which condition are you referring this patient for? Hammer Toes Reason for Visit * Reason Comments Sore Foot Pt c/o R foot pain, pt requesting ortho referral Encounter Details Date Type Department Care Team Description 02/15/2023 Office Visit Family Practice [facility] [address] [place] [address] Ryan Leyva MD [address] [place] [address] Plantar fasciitis*; History of [...] A1c goal of less than 7.0% ([facility]) TAKE 1 TABLET BY MOUTH EVERY [...] fasciitis 10 mg IX ONCE 02/15/2023 02/15/2023 Ended Triamcinolone Acetonide (Kenalog) 40 MG/ML inj 40 mgIndications:Plantar fasciitis 40 mg IX ONCE 02/15/2023 02/15/2023 Ended documented as of this encounter (statuses as [...] of the right heel. He saw a button machine operator for this who did not feel comfortable [...] 02/21/2023 Office Visit Podiatry Suzanne Person, NEENA [address] [place] [address] [place] [address] Scheduled Orders Name Type Priority Associated Diagnoses [...] and immunity disorders documented in this encounter Administered Medications Inactive Administered Medications - up to 3 most recent administrations Medication Order MAR Action Action Date Dose Rate Site lidocaine 1 % inj 10 mg 10 mg (1 mL), Intra-Articular, ONCE, On Sat02/15/23 at 1100, For 1 dose Given 02/15/2023 11:26 AM EDT 10 mg Other-Specify Triamcinolone Acetonide (Kenalog) 40 MG/ML inj 40 mg 40 mg, Intra-Articular, ONCE, On Sat02/15/23 at 1100, For 1 dose Given 02/15/2023 11:25 AM EDT 40 mg Other-Specify documented in this encounter Advance Directives Latest Code Status on File Code Status Date Activated Date Inactivated Comments Full Code 02/14/2019 10:34 PM 02/20/2019 3:48 PM This order reflects the patients wishes and were consensually agreed upon. Question Answer Comments Discussion of Advance Directives occurred with: Not Discussed Care Teams Metal Patternmaker Apprentice Relationship Specialty Start Date End Date Ryan Leyva MD [address] [place] [address] PCP - General Family Medicine 07/17/22 documented as of this encounter"
--- OUTSIDE RECORDS SUMMARY | 2023-06-04 16:41 | External Medical Summary | Summary of Care ---
Author Name Unknown Organization [facility] Address [address] [place] [address] Phone [phone] Care Team Providers Care Tank Car Cleaner Name Role Phone Ryan Leyva MD Primary Care Provider [phone] Encounter Details Date Type Department Care Team (Late st Contact Info) Description 04/08/2023 Orders Only Family [facility] [address] [place] [id number] Ryan Leyva MD [address] [place] [address] Allergies No known active allergiesdocumented as of [...] Oral Capsule (Lyrica)Indications :History of drug abuse ([facility]) TAKE 1 CAPSULE BY MOUTH IN THE [...] 04/09/2023 9:45 AM EDT Office Visit Ophthalmology, [facility] [address] [facility] [place] [address] Burton Schroeder DO 132 [facility] [place] [address] 04/11/2023 9:15 AM EDT Imaging [facility] [address] [facility] [place] [address] 04/26/2023 10:40 AM EST Office Visit Podiatry [facility] [address] [facility] [place] [address] Suzanne Person, DPM [address] [facility] [place] [address] Health Maintenance Due Date Last Done Comments [...] Procedure Name Priority Date/Time Associated Diagnosis Comments HEPATITIS C ANTIBODY Routine 04/04/2023 documented in this encounter Results * HEPATITIS C ANTIBODY (04/04/2023) Blood Venous blood specimen / Unknown 04/04/2023 Star Schmidt MD LAB BLOOD ORDERABLE S OUTSIDE LAB (SEE SCANNED REPORT) documented in this encounter Advance Directives Latest Code Status on File Code Status Date Activated Date Inactivated Comments Full Code 02/14/2019 10:34 PM 02/20/2019 3:48 PM This order reflects the patients wishes and were consensually agreed upon. Question Answer Comments Discussion of Advance Directives occurred with: Not Discussed Care Teams Tank Car Cleaner Relationship Specialty Start Date End Date Ryan Leyva MD [address] [place] [address] PCP - General Family Medicine 07/17/22 documented as of this encounter
--- OUTSIDE RECORDS SUMMARY | 2023-06-04 16:41 | External Medical Summary | Summary of Care ---
Author Name Unknown Organization [facility] Address [address] [place] [address] Phone [phone] Care Team Providers Care Children'S Ministries Director Name Role Phone Ryan Leyva MD Primary Care Provider [phone] Encounter Details Date Type Department Care Team Description 03/13/2023 Telephone Podiatry [facility] [address] [place] [address] Suzanne Person, DPM [address] [place], [place] [id number] Allergies No known active allergiesdocumented as of this encounter (statuses as of 03/18/2023) Medications Medication Sig Dispensed Refills Start Date [...] 01/14/2023 Active Pregabalin 50 MG Oral Capsule (Lyrica)Indications :History of drug abuse (HCC) Take 1 Capsule [...] Oral Tablet (KlonoPIN)Indicatio ns:JOB (generalized anxiety disorder) TAKE 1 TABLET BY MOUTH 2 TIMES A DAY NEEDED FOR ANXIETY 60 Tablet 1 03/04/2023 Active methylPREDNISolone 4 MG Oral Tablet Therapy Pack (Medrol Dosepack) follow package directions 21 Tablet 0 03/18/2023 Active Hospital, Clinic, or Other Facility Administered [...] as of this encounter (statuses as of 03/18/2023) Active Problems Problem Noted Date Venous stasis of both lower extremities 01/14/2023 Methadone maintenance therapy patient History of type 1 diabetes mellitus 12/2022 Overview: 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 Overweight (BMI 25.0-29.9) 01/12/2023 History of drug abuse 10/30/2022 Overview: IVDA JOB (generalized anxiety disorder) 05/21 /2023 Kidney replaced by transplant 07/16/2022 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 07/16/19 23 Hepatitis C virus infection cured after antiviral drug therapy 04/26/2020 Overview: HCV treated; SVR confirmed 04/18/2020 Seizure disorder 02/14/2019 HTN, goal below 130/80 10/18/2016 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 07/24/2016 documented as of this encounter (statuses as of 03/18/2023) Resolved Problems Problem Noted Date Resolved Date DKA (diabetic ketoacidoses) 02/20/[address] 11/2022 Acute respiratory failure with hypoxia 9 [...] as of this encounter (statuses as of 03/18/2023) Immunizations Name Administration Dates Next Due COVID-19 [...] encounter Miscellaneous Notes * Telephone Encounter - NOE Jackson - 03/18/2023 11:15 AM EDT Called and relayed message He is concerned about the amount of swelling and pain Denies any new injury Advised he start the steroids and if this does not improve to call and let us know and we can try to get him a sooner appointment NOE Jackson * Telephone Encounter - Suzanne Person DPM - 03/18/2023 7:44 AM EDT Steroid pack sent. I was off last , just let him know that's why it was not prescribed right away. Thanks. * Telephone Encounter - Jaymie Meyer LPN - 03/13/2023 3:56 PM EDT Pt calling to let us know he continues to have foot pain, 02/21 injection was not helpful. Asking ifhe may have PO steroids sent to [facility] in [place] as discussed; he called transplant Dr, he said pt is ok to take PO steroids. documented in this encounter Plan of Treatment Upcoming Encounters Date Type Specialty Care Team Description 04/05/2023 Office Visit [facility] Suzanne Person, [facility]PCaitie [address] [facility] [place] [address] Health Maintenance Due Date Last Done [...] Directives occurred with: Not Discussed Care Teams Children'S Ministries Director Relationship Specialty Start Date End Date Ryan Leyva MD [address] [place] [address] PCP - General Family Medicine 07/17/22 documented as of this encounter
--- OUTSIDE RECORDS SUMMARY | 2023-06-04 16:41 | External Medical Summary | Summary of Care ---
Author Name Unknown Organization [facility] Address [address] [place] [address] Phone [phone] Care Team Providers Care Manager Emergency Department Name Role Phone Farida Do MD Primary Care Provider [phone] Reason for Visit * Reason Onset Date Comments Medication Refill 03/28/2023 Encounter Details Date Type Department Care Team Description 03/28/2023 Refill Family Practice [facility] [address] [place] [address] Farida Do MD [address] [place] [address] JOB (generalized anxiety disorder) Allergies No known active allergiesdocumented as of this encounter (statuses as of 03/29/2023) Medications Medication Sig Dispensed Refills Start Date [...] hemoglobin A1c goal of less than 7.0% ([facility]) TAKE 1 TABLET BY MOUTH EVERY MORNING 90 Tablet 0 01/26/2023 Active methylPREDNISolo ne 4 MG Oral Tablet Therapy Pack (Medrol Dosepack) follow package directions 21 Tablet 0 03/18/2023 Active Pregabalin 50 MG Oral Capsule (Lyrica)Indicati ons:History of drug abuse ([facility]) TAKE 1 CAPSULE BY MOUTH IN THE MORNING, 1 CAPSULE AT NOON AND 1 CAPSULE BEFORE BEDTIME. 90 Capsule 0 03/20/2023 Active clonazePAM 0.5 MG Oral Tablet (KlonoPIN)Indica tions:JOB (generalized anxiety disorder) Take 1 Tablet by mouth 2 times a day as needed for Anxiety. 60 Tablet 1 03/29/2023 Active clonazePAM 0.5 MG Oral Tablet (KlonoPIN)Indica tions:JOB (generalized anxiety disorder) TAKE 1 TABLET BY MOUTH 2 TIMES A DAY NEEDED FOR ANXIETY 60 Tablet 1 03/04/2023 03/28/2023 Discontinue d(Refill) Hospital, Clinic, or Other Facility [...] as of this encounter (statuses as of 03/29/2023) Active Problems Problem Noted Date Venous stasis [...] as of this encounter (statuses as of 03/29/2023) Resolved Problems Problem Noted Date Resolved Date [...] as of this encounter (statuses as of 03/29/2023) Immunizations Name Administration Dates Next Due COVID-19 [...] Telephone Encounter - Farida Do MD - 03/29/2023 11:10 AM EDTSigned Prescriptions: Disp Refills clonazePAM 0.5 MG Oral Tablet (KlonoPIN) 60 Tab*1 Sig: Take 1 Tablet by mouth 2 times a day as needed for Anxiety. Authorizing Provider: FARIDA DO * Telephone Encounter - Cathryn Stringer [facility] - 03/29/2023 5:25 AM EDTPending Prescriptions: Disp Refills clonazePAM 0.5 MG Oral Tablet (KlonoPIN) 60 Tab*1 Sig: Take 1 Tablet by mouth 2 times a day as needed for Anxiety. * Telephone Encounter - Cathryn Stringer RP - 03/29/2023 5:25 AM EDT I have reviewed the patients controlled substance dispensing history in the Prescription Drug Monitoring Program in compliance with the [facility] regulations before prescribing a controlled substance. PDMP checked on 03/29/2023. Pending Prescriptions: Disp Refills clonazePAM 0.5 MG Oral Tablet (KlonoPIN) 60 Tab*1 Sig: Take 1 Tablet by mouth 2 times a day as needed for Anxiety. Last Visit: 02/15/2023 (in office), 01/14/2023 (telemedicine) Next Visit: Visit date not found Date medication was last filled: 03/04/23 Date medication is due for refill: 04/02/23 Pharmacy: [id number] [facility] Is this request for a controlled substance? [...] approve if appropriate. Thank You, Cathryn Stringer [facility] Clinical Pharmacist [facility] ([facility]) (formerly Telepharmacy) [phone] 03/29/2023, 5:25 AM documented in this encounter Plan of Treatment Upcoming Encounters Date Type Specialty Care Team Description 03/30/2023 Office Visit Family Medicine Matt Nance MD [address] [place] [address] 04/05/2023 Office Visit Podiatry Suzanne Person, DPM [address] [place] [address] Health Maintenance Due Date [...] occurred with: Not Discussed Care Teams Manager Emergency Department Relationship Specialty Start Date End Date Farida Do MD [address] [place] [address] PCP - General Family Medicine 07/17/22 documented as of this encounter
--- OUTSIDE RECORDS SUMMARY | 2023-06-04 16:41 | External Medical Summary | Summary of Care ---
Author Name Unknown Organization [facility] Address [address] [place] [address] Phone [phone] Care Team Providers Care Vp Analytics Name Role Phone Ryan Leyva MD Primary Care Provider [phone] Reason for Referral * Evaluate & Treat - Unlimited Visits (Within 10 days (routine)) - Pending Review Specialty Diagnoses / Procedures Referred By Stefanie arango Referred To Contact Physical Therapy / Physical Medicine And Rehab Diagnoses Pain in both feet Plantar fasciitis, bilateral Hammertoe of right foot Numbness in feet Suzanne Person DPM [address] [place] [address] Referral ID Status Reason Start Date Expiration Date Visits Requested Visits Authorized [id number] Pending Review Specialty Services Required 02/21/2023 999 [...] fasciitis Ryan Leyva MD [address] [place] [address] Referral ID Status Reason Start Date Expiration Date Visits Requested Visits Authorized [id number] Authorized Specialty Services Required 02/15/2023 08/20/2024 999 999 Encounter Details Date Type Department Care Team Description 02/21/2023 Office Visit Podiatry [facility] [address] [place] [address] Suzanne Person DPM [address] [facility] [place] [phone] Pain in both feet*; Plantar fasciitis, bilateral; [...] hemoglobin A1c goal of less than 7.0% ([facility]) TAKE 1 TABLET BY MOUTH [...] fasciitis, bilateral 2.5 mg IJ ONCE 02/21/2023 02/21/2023 Ende d dexamethasone sodium phosphate 20 MG/5ML inj 2 mgIndications:Pain in both feet,Plantar fasciitis, bilateral 2 mg IJ ONCE 02/21/2023 02/21/2023 Ende d methylPREDNISolone acetate (Depo-Medrol) 20 MG/ML inj 10 mgIndications:Pain in both feet,Plantar fasciitis, bilateral 10 mg INTRABURSAL ONCE 02/21/2023 02/21/2023 End ed documented as of this encounter (statuses as [...] 1:15 PM EDT Podiatry New Patient Note [facility] Name: Bernard Jones : 1985 Date: 02/21/2023 [...] a kidney transplant. This was done at [facility]. He reports getting permission for steroid injections [...] patient (HCC) 01/14/2023 NPDR (nonproliferative diabetic retinopathy) ([facility]) 09/05/2016 Dr Schroeder Overweight (BMI 25.0-29.9) 01/12/2023 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 ([facility]) 07/16/2022 Type 1 diabetes mellitus ([facility]) 1990 Venous stasis of both [...] EYE DRUG Left 06/29/2022 #9 Avatin OS Elda INJECTION OF EYE DRUG Left 08/10/2022 # [...] 04/05/2023 Office Visit Podiatry Suzanne Person DPM [address] [place] [address] [place] [phone] Pending Results Name Type Priority Associated Diagnoses [...] Plantar fascial fibromatosis documented in this encounter Administered Medications Inactive Administered Medications - up to 3 most recent administrations Medication Order MAR Action Action Date Dose Rate Site bupivacaine (Sensorcaine) 0.5 % inj 2.5 mg 2.5 mg, Injection, ONCE, On Rosa Isela 02/21/23 at 1545, For 1 dose Given 02/21/2023 3:53 PM EDT 2.5 mg Foot Left dexamethasone sodium phosphate 20 MG/5ML inj 2 mg 2 mg, Injection, ONCE, On Rosa Isela 02/21/23 at 1545, For 1 dose, Protect from Light Given 02/21/2023 3:53 PM EDT 2 mg Foot Left methylPREDNISolone acetate (Depo-Medrol) 20 MG/ML inj 10 mg 10 mg, Intrabursal, ONCE, On Rosa Isela 02/21/23 at 1545, For 1 dose Given 02/21/2023 3:54 PM EDT 10 mg Foot Left documented in this encounter Advance Directives Latest Code Status on File Code Status Date Activated Date Inactivated Comments Full Code 02/14/2019 10:34 PM 02/20/2019 3:48 PM This order reflects the patients wishes and were consensually agreed upon. Question Answer Comments Discussion of Advance Directives occurred with: Not Discussed Care Teams Vp Analytics Relationship Specialty Start Date End Date Ryan Leyva MD [address] [place] [address] PCP - General Family Medicine 07/17/22 documented as of this encounter
--- OUTSIDE RECORDS SUMMARY | 2023-06-04 16:41 | External Medical Summary | Summary of Care ---
Author Name Unknown Organization [facility] Address [address] [place] [address] Phone [phone] Care Team Providers Care Take Away Man Name Role Phone Rayn Leyva MD Primary Care Provider [phone] Reason for Visit * Reason Onset Date Comments Appointment 03/08/2023 Encounter Details Date Type Department Care Team Description 03/08/2023 Telephone Podiatry, [facility] [address] [place] [address] Suzanne Person DPM [address] [place], [place] [phone] Appointment Allergies No known active allergiesdocumented as of this encounter (statuses as of 03/08/2023) Medications Medication Sig Dispensed Refills Start Date [...] Oral Tablet (KlonoPIN)Indication s:JOB (generalized anxiety disorder) TAKE 1 TABLET BY MOUTH 2 TIMES A DAY NEEDED FOR ANXIETY 60 Tablet 1 03/04/2023 Active Hospital, Clinic, or Other Facility Administered [...] as of this encounter (statuses as of 03/08/2023) Active Problems Problem Noted Date Venous stasis of both lower extremities 01/14/2023 Methadone maintenance therapy patient History of type 1 diabetes mellitus 12/2022 Overview: 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 Overweight (BMI 25.0-29.9) 01/12/2023 History of drug abuse 10/30/2022 Overview: IVDA JOB (generalized anxiety disorder) 10/28 Kidney replaced by transplant 07/16/2022 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 02/06/20 23 Hepatitis C virus infection cured after antiviral drug therapy 04/26/2020 Overview: HCV treated; SVR confirmed 04/18/2020 Seizure disorder 02/14/2019 HTN, goal below 130/80 10/18/2016 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 I did reach out to patient to let him know Added to the wait list, He stated that the injection only helped for about 2 wks, has more pain now than he had before injection. Has burning in feet. He said when he stands his toes are off the ground. * Telephone Encounter - ZEINA Kemp - 03/08/2023 2:19 PM EDT Pt is experiencing a lot of pain in both feet. Pt states he had an injection in his R heel that didhelp but not for nearly as long as he was hoping. Pt is scheduled to see Dr. Person on 03/26, howeverif any appts may be available sooner, pt would like to be seen as soon as possible. Pt is requesting a call back either way, best contact number is [phone]. Thank you, Tressa Wise documented in this encounter Plan of Treatment Upcoming Encounters Date Type Specialty Care Team Description 04/05/2023 Office Visit Podiatry Suzanne Person, DPM [address] [facility] [place] [address] Health Maintenance Due Date Last Done Comments [...] Directives occurred with: Not Discussed Care Teams Take Away Man Relationship Specialty Start Date End Date Ryan Leyva MD [address] [place] [address] PCP - General Family Medicine 07/17/22 documented as of this encounter
--- OUTSIDE RECORDS SUMMARY | 2023-06-04 16:41 | External Medical Summary | Summary of Care ---
Author Name Unknown Organization [facility] Address [address] [place] [address] Phone [phone] Care Team Providers Care Fire Official Name Role Phone Ryan Leyva MD Primary Care Provider [phone] Reason for Referral * Precert (Within 10 days (routine)) - Pending Review Specialty Diagnoses / Procedures Referred By Contac t Referred To Contact Radiology Diagnoses Pain in both feet Strain of right foot, initial encounter Closed displaced fracture of navicular bone of right foot, initial encounter Procedures CT LOWER EXTREMITY RIGHT WO CONTRAST Suzanne Person DPM [address] [place] [address] Referral ID Status Reason Start Date Expiration Date V isits Requested Visits Authorized [id number] Pending Review 04/06/2023 999 999 Reason for Visit * Reason Comments Follow Up L foot Encounter Details Date Type Department Care Team (Late st Contact Info) Description 04/05/2023 10:40 AM EDT Office Visit Podiatry [facility] [address] [facility] [place] [address] [facility] [address] Pain in both feet*; Numbness in feet; Foot arch pain, unspecified laterality; Strain of right foot, initial encounter; Closed displaced fracture of navicular bone of right foot, initial encounter Allergies No known active allergiesdocumented as of this encounter (statuses as of 04/05/2023) Medications Medication Sig Dispensed Refills Start Date [...] as of this encounter (statuses as of 04/05/2023) Active Problems Problem Noted Date Diagnosed Date [...] as of this encounter (statuses as of 04/05/2023) Resolved Problems Problem Noted Date Diagnosed Date [...] as of this encounter (statuses as of 04/05/2023) Immunizations Name Administration Dates Next Due COVID-19 [...] Progress Notes * Suzanne Person DPM - 04/05/2023 10:57 AM EDT Podiatry Established Note [facility] Name: Bernard Jones : 1985 Date: 04/05/2023 REASON FOR VISIT: follow up - worsening foot pain SUBJECTIVE: This patient is a 37 year old male who presents today for follow up of worsening bilateral foot pain. I had seen Bernard in February. He reported improvement of right heel pain after an injection, so I recommended we do this on the left. He was given information on shoes and a PT referral. He called in after and noted worsening pain. I had prescribed a steroid taper as he stated he wasok to take this. He reports having this filled by primary care after and most recently yesterday. He feels this helps a little. Today, his symptom report seems different than when we met in February. He reports going to PT and stopping as he states his therapist felt they could not do more. He reports a variety of things - he has known venous stasis which appears stable today. He feels his left 2nd toe has hammered more one week after he saw me. He questions if surgery and cutting tendons would be helpful. He notices pain throughout both feet which seems relatively constant. He feels his arches are most pronounced though. His right feels worse than the left. He feels as if he broke something. He is having a harder time tolerating walking and standing. He inquires about arch surgery. He inquires about longer term refills for his prednisone. I did ask if he ever had EMG studies as he reports nerve damage. He states he has but is not sure of date/doctor. 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 NPDR (nonproliferative diabetic retinopathy) ([facility]) 09/05/2016 Dr Schroeder Overweight (BMI 25.0-29.9) 01/12/2023 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 ([facility]) 07/16/2022 Type 1 diabetes mellitus ([facility]) 1990 Venous stasis of both lower extremities 01/14/2023 ALLERGIES: Review of patient's allergies indicates: No Known Allergies REVIEW OF SYSTEMS: CONSTITUTIONAL: No fevers, sweats, or chills FOCUSED PODIATRIC EXAM: Vascular: Pedal pulses palpable including dorsalis pedis and posterior tibial artery at 2/4 bilaterally. Capillary refill time is within normal limits to all toes. Chronic appearing non pitting edema to both lower legs with chronic appearing discoloration. No warmth or excessive coolness with palpation. Pedal hair growth is diminished. Neurologic: Sensation (light touch) intact to the bilateral lower extremities. No hypersensitivity. Generalizedweakness noted. Musculoskeletal: There is a hammertoe to the left 2nd toe. Pain is reported with palpation of both plantar feet - diffuse. Some generalized muscle weakness noted. Dermatological: Skin temperature, texture, and turgor are within normal limits. No open lesions. There is no erythema or ecchymosis noted. DIAGNOSTIC STUDIES: X-ray, bilateral foot, 04/05/2023 3 WB radiographs of both feet were obtained. This includes AP MO and Lateral. Left foot appears relatively changed. There is a fracture with some displacement of the right navicular. This is seen on all three views. TN joint is disrupted and there is some increased talar declination noted. This is a new finding since his previous x-rays. ASSESSMENT: 1. Pain in both feet 2. Numbness in feet 3. Foot arch pain, unspecified laterality 4. Strain of right foot, initial encounter 5. Closed displaced fracture of navicular bone of right foot, initial encounter PLAN: I spoke with Bernard. At our visit, I suspected his pain is in part due to worsening nerve damage andneuropathy. I could not find EMG reports in his chart. He does take Lyrica. He inquired about prednisone. I prefer primary care to manage this as this seems to becoming a common refill request and I am only comfortable prescribing an occasional taper. He inquired about surgery. I do not think this is a good idea as far as toes/heel pain given pain level. I feel he is at risk for CRPS and complications. I did recommend further work up though. I had ordered bilateral foot x-rays today which he had after our formal visit. I also recommended we try a camwalker on the right given level of pain. After our visit, I did review these x-rays as above. There is a finding of a displaced navicular fracture. I called Bernard at about 2:30PM to relay. I explained left seemed unchanged. I would update him with radiology report if different from my take. I recommended he have a CT scan. Our office is to contact to set up. I will plan on reviewed with my surgical colleagues once complete. Will keep the camwalker and follow up in 3 weeks for now until study is done. I recommended he stop prednisone for now. Suzanne Person DPM documented in this encounter Nursing Notes * Jaymie Meyer LPN - 04/05/2023 10:55 AM EDT Pt presents for follow up bilateral feet, L > R.. states the first 2 doses of prednisone were helpful; PCP prescribed 20 mg prednisone yesterday. documented in this encounter Plan of Treatment Upcoming Encounters Date Type Department Care Team (Late st Contact Info) Description 04/09/2023 9:45 AM EDT Office Visit Ophthalmology, [facility] [address] [facility] [place] [address] Burton Schroeder DO 132 [facility] [place] [address] 04/26/2023 10:40 AM EST Office Visit Podiatry [facility] [address] [facility] [place] [address] Suzanne Person DPM [address] [facility] [place] [id number] Pending Results Name Type Priority Associated Diagnoses Date /Time XR FOOT 3 OR MORE VIEWS Medical Imaging Routine Pain in both feet Numbness in feet Foot arch pain, unspecified laterality 04/05/2023 11:19 AM EDT Scheduled Orders Name Type Priority Associated Diagnoses Orde r Schedule CT LOWER EXTREMITY RIGHT WO CONTRAST Medical Imaging Routine Pain in both feet Strain of right foot, initial encounter Closed displaced fracture of navicular bone of right foot, initial encounter Expected: 04/06/2023, Expires: 05/06/2024 Health Maintenance Due Date Last Done Comments [...] in both feet- Primary Pain in limb Numbness in feet Disturbance of skin sensation Foot arch pain, unspecified laterality Strain of right foot, initial encounter Closed displaced fracture of navicular bone of right foot, initial encounter documented in this encounter Advance Directives Latest Code Status on File Code Status Date Activated Date Inactivated Comments Full Code 02/14/2019 10:34 PM 02/20/2019 3:48 PM This order reflects the patients wishes and were consensually agreed upon. Question Answer Comments Discussion of Advance Directives occurred with: Not Discussed Care Teams Fire Official Relationship Specialty Start Date End Date Ryan Leyva MD [address] [facility] [place] [address] PCP - General Family Medicine 07/17/22 documented as of this encounter
--- OUTSIDE RECORDS SUMMARY | 2023-06-04 16:41 | External Medical Summary | Summary of Care ---
Author Name Unknown Organization [facility] Address [address] [place] [address] Phone [phone] Care Team Providers Care Piece Dyeing Machine Tender Name Role Phone Ryan Leyva MD Primary Care Provider [phone] Encounter Details Date Type Department Care Team (Late st Contact Info) Description 04/08/2023 Orders Only Family [facility] [address] [place] [phone] Ryan Leyva MD [address] [place] [address] Allergies No known active allergiesdocumented as of [...] Oral Capsule (Lyrica)Indications :History of drug abuse ([facility]) TAKE 1 CAPSULE BY MOUTH [...] History of drug abuse 10/30/2022 Overview: IVDA JBO (generalized anxiety disorder) 10/28/2022 Kidney replaced by [...] EDT Office Visit Ophthalmology, [facility] [address] [facility] [place] [address] Burton Schroeder DO 132 [facility] [place] [address] 04/11/2023 9:15 AM EDT [facility] [address] [facility] [place] [address] 04/26/2023 10:40 AM EST Office Visit Podiatry [facility] [address] [facility] [place] [address] Suzanne Person, DPM [address] [facility] [place] [address] Health Maintenance Due Date Last Done Comments [...] 03/07/2020, 03/18/2019, Additional history exists HbA1c 06/04/2023 04/04/2023, 11/09, 11/01/2021, Additional history exists GFR 12/04/2023 04/04/2023, 11/09, 10/19/2022, Additional history exists DTaP,Tdap,and [...] Procedure Name Priority Date/Time Associated Diagnosis Comments CHEMISTRY-OUTSIDE Routine 04/04/2023 documented in this encounter Results * (ABNORMAL) CHEMISTRY-OUTSIDE (04/04/2023) Not all results display below - see scan for full detail OUTSIDE LAB (SEE SCANNED REPORT) Comment:SEE SCAN CBCD, CMP, HA1C, LIPASE, MAG, PHOS, URIC ACID CREATININE-OUTSID E LAB 0.89 0.70 - 1.30 MG/DL OUTSIDE LAB (SEE SCANNED REPORT) EGFR-OUTSIDE LAB >90 ML/MIN OUT SIDE LAB (SEE SCANNED REPORT) POTASSIUM-OUTSIDE LAB 4.2 3.5 - 5.1 MMOL/L OUTSIDE LAB (SEE SCANNED REPORT) GLUCOSE-OUTSIDE LAB 128(A) 70 - 110 MG/DL OUTSIDE LAB (SEE SCANNED REPORT) HOURS FASTING OUTSID E LAB (SEE SCANNED REPORT) TRIGLYCERIDES-OUT SIDE LAB OUTSIDE LAB (SEE SCANNED REPORT) CHOLESTEROL-OUTSI DE LAB OUTSIDE LAB (SEE SCANNED REPORT) HDL-OUTSIDE LAB OUTS ANÍBAL LAB (SEE SCANNED REPORT) CHOL/HDL RATIO-OUTSIDE LAB OUTSIDE LA B (SEE SCANNED REPORT) LDL (CALCULATED)-OUTS ANÍBAL LAB OUTSIDE LAB (SEE SCANNED REPORT) LDL (DIRECT MEASURE)-OUTSIDE LAB OUTSIDE LAB (SEE SCANNED REPORT) HEMOGLOBIN, R5L-GODPFQA LAB 5.1 3.8 - 5.6 % OUTSIDE LAB (SEE SCANNED REPORT) PHOSPHORUS-OUTSID E LAB 3.2 2.5 - 4.9 MG/DL OUTSIDE LAB (SEE SCANNED REPORT) PTH-OUTSIDE LAB OUTS ANÍBAL LAB (SEE SCANNED REPORT) MICROALBUMIN RATIO-OUTSIDE LAB OUTSIDE LA B (SEE SCANNED REPORT) PROTEIN, UA-OUTSIDE LAB OUTSIDE LAB (SEE SCANNED REPORT) HEMOGLOBIN-OUTSID E LAB 17.6 13.5 - 18.0 G/DL OUTSIDE LAB (SEE SCANNED REPORT) 04/04/2023 Star Schmidt MD LABORATORY OUTSIDE LAB (SEE SCANNED REPORT) documented in this encounter Advance Directives Latest Code Status on File Code Status Date Activated Date Inactivated Comments Full Code 02/14/2019 10:34 PM 02/20/2019 3:48 PM This order reflects the patients wishes and were consensually agreed upon. Question Answer Comments Discussion of Advance Directives occurred with: Not Discussed Care Teams Piece Dyeing Machine Tender Relationship Specialty Start Date End Date Ryan Leyva MD [address] [place] [address] PCP - General Family Medicine 07/17/22 documented as of this encounter
--- OUTSIDE RECORDS SUMMARY | 2023-06-04 16:42 | External Medical Summary | Summary of Care ---
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, bilateral (HCC) Procedures [place] BEVACIZUMAB INJECTION INJECTION OF EYE DRUG Burton Schroeder DO [address] [place] [address] Ophthalmology [facility] [address] [facility] [place] [address] Referral ID Status Reason Start Date Expiration Date V isits Requested Visits Authorized [id number] Authorized Precert 05/31/2022 06/09/2099 [id number] Encounter Details Date Type Department Care Team Description 12/17/2022 Office Visit Ophthalmology, [facility] [address] [place] [address] Burton Schroeder DO [address] [place] [address] Stable proliferative diabetic retinopathy of both eyes associated with type 1 diabetes mellitus (HCC)*; Encounter for diabetes type 1 eye exam (HCC) Allergies No known active allergiesdocumented as of this encounter (statuses as of 12/17/2022) Medications Medication Sig Dispensed Refills Start Date [...] by mouth in the morning. 0 Active Rosuvastatin Calcium 10 MG Oral Tablet (Crestor) Take 1 Tablet by mouth in the morning. 90 Tablet 3 07/17/2022 Active Sulfamethoxazole- Trimethoprim 400-80 MG Oral Tablet (Bactrim) Take 1 Tablet by mouth in the morning. Take three times a week. 0 07/17/2022 Active Pregabalin 50 MG Oral Capsule (Lyrica) Take 1 Capsule by mouth in the morning and 1 Capsule at noon and 1 Capsule before bedtime. 90 Capsule 0 10/08/2022 Active cloNIDine HCl 0.1 MG Oral Tablet (Catapres) Take 1 Tablet by mouth in the morning and 1 Tablet in the evening. 180 Tablet 3 10/08/2022 Active Acetaminophen 325 MG Oral Tablet (Tylenol) Take 3 Tablets by mouth in the morning and 3 Tablets at noon and 3 Tablets before bedtime. 0 10/21/2022 Active Methadone HCl 10 MG/5ML Oral Solution Take 50 mL by mouth daily. 0 Active clonazePAM 0.5 MG Oral Tablet (KlonoPIN)Indicat ions:JOB (generalized anxiety disorder) Take 1 Tablet by mouth 2 times a day as needed for Anxiety. 60 Tablet 1 12/04/2022 Active Carvedilol 6.25 MG Oral Tablet (Coreg) Take 1 Tablet by mouth in the morning and 1 Tablet before bedtime. 0 12/08/2022 Active Pregabalin 50 MG Oral Capsule (Lyrica) Take 1 Capsule by mouth in the morning and 1 Capsule at noon and 1 Capsule before bedtime. 90 Capsule 0 10/09/2022 12/17/2022 Discontinued (Medication List Clean Up) NIFEdipine ER Osmotic Release 30 MG Oral Tablet Extended Release 24 Hour (Procardia XL) Take 1 Tablet by mouth daily. 0 10/26/2022 12/17/2022 Discontinued (Medication List Clean Up) oxyCODONE HCl 5 MG Oral Tablet (Oxy IR) Take 1 Tablet by mouth 4 times a day as needed for Pain. 0 10/21/2022 12/17/2022 Discontinued (Medication List Clean Up) Hospital, Clinic, [...] as of this encounter (statuses as of 12/17/2022) Active Problems Problem Noted Date History of drug abuse 10/30/2022 Overview: IVDA JOB (generalized anxiety disorder) 10/28 Kidney replaced by transplant 07/16/2022 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 07/16/19 Hepatitis C virus infection cured after antiviral drug therapy 04/26/2020 Overview: HCV treated; SVR confirmed 04/18/2020 Seizure disorder 02/14/2019 HTN, goal below 130/80 10/18/2016 Type 1 diabetes mellitus with hemoglobin A1c goal of less than 7.0% 10/18/2016 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 07/24/2016 documented as of this encounter (statuses as of 12/17/2022) Resolved Problems Problem Noted Date Resolved Date DKA (diabetic ketoacidoses) 02/20/2019 02/0 11/2022 Acute respiratory failure with hypoxia 9 07/16/2022 Aspiration pneumonia 02/20/2019 07/16/2022 Type 1 diabetes mellitus with ketoacidosis witho ut coma 02/16/2019 07/16/2022 Hypertensive emergency without congestive heart failure 02/16/2019 07/16/2022 Encephalopathy acute 02/16/2019 07/16/2022 ESRD on peritoneal dialysis 10/18/2016 02/11/2022 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 07/24/2016 07/17/2022 Overview: ICD-10 update of inactive term Hepatitis C 06/10/2016 04/26/2020 Overview: HCV treated; SVR confirmed 04/18/2020 documented as of this encounter (statuses as of 12/17/2022) Immunizations Name Administration Dates Next Due COVID-19 mRNA, LNP-s, No Pre serve, 2-Dose Series (Moderna) 08/09/2020,07/12/2020 Seasonal Influenza Virus Vac cine, Unspecified Formulation 05/10/2018,07/15/2017 Seasonal Influenza, Quadriva lent, No Preserve, 6 Mons & Above, IM 03/07/2020,03/18/2019 Seasonal Influenza, Quadriva lent,with Preserve, 3 [...] Progress Notes * Burton Schroeder DO - 12/17/2022 1:00 PM EDT [facility] [place] Nursing notes reviewed. Mood and affect: normal HPI: Bernard Jones is a 37 year old male who presents for PDR OU. Base Eye Exam Visual Acuity (Snellen - Linear) Right Left Dist sc 20/200 20/40 Dist ph sc NI NI Tonometry (Tonopen, 1:08 PM) Right Left Pressure 12 13 Pupils Pupils APD Right PERRL None Left PERRL None Visual Rowe (Counting fingers) Right Left Restrictions Total inferior temporal deficiency; Partial outer superior temporal deficiency Partialouter superior nasal, inferior nasal deficiencies Extraocular Movement Right Left Full, Ortho Full, Ortho Neuro/Psych Oriented x3: Yes Mood/Affect: Normal Dilation Both eyes: 0.5% Proparacaine @ 1:08 PM Dilation #2 Right eye: 1.0% Mydriacyl, 2.5% Phenylephrine @ 1:08 PM Dilation #3 Right eye: 1.0% Mydriacyl, 2.5% Phenylephrine @ 1:14 PM Dilation Comments Patient cautioned that effects of dilation may last 2-7 hours dependant upon individual reaction. It was discussed that driving while dilated is not recommended. Strabismus Exam Correction: ut Observations: Ortho Distance Near Near +3DS N Bifocals cover/uncover, and alternate cover EXTERNAL: The ocular adnexae are unremarkable. SLE: Lids/Lashes: wnl OU Conjunctiva/Sclera: quiet OU Cornea: clear OU Anterior Chamber: deep and quiet OU Iris: normal OU; no NVI OU Lens: +nsc OU Dilated fundus exam OD: vitreous: trace old VH optic nerve: 0.3, regressed NVD; no edema/pallor macula: +machinist first class vessels: ischemic midperiphery: +PRP, segmented membranes periphery: +machinist first class, +PRP, no RT/RD Dilated fundus exam OS: vitreous: +VH-worse optic nerve: 0.3, +segmented fibrovascular tuft, no edema/pallor/NVD macula: +machinist first class vessels: ischemic midperiphery: +PRP, segmented membranes periphery: +machinist first class, +PRP, segmented fibrovascular membranes, no RT/RD OCT Interpretation: 09/15/21 OD: thinning, +ERM - stable OS: thinning, resolved trace mild DME - stable Fundus Photo Interpretation - 07/24/16: OD: +DR w/ ischemic vasculature OS: +PDR w/ ischemic vasculature and pre-retinal heme A/P: 1. 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 Dorsey, 12-15-19, 03-31-19 for VH, 10-09-18, 05-22-18, 12-05-17, 08-08-2017, 04-19-17, 11-22-16, 08-17-16) -VH over past week -Avastin today OS: -PDR w/ dme on presentation -s/p 23G PPV/EL/segmentation OS for PDR OS -surgery date: 09/10/2016 -s/p Avastin OS (08/10/22, 06/29/22--[facility], 03-16-20, 08-07-19-[facility], 06-02-20, 03-18-19, 07-08-18, 02-21-17, 09/05/16, 07/24/16) -pt w/ poor f/u and compliance -had pancreas/kidney transplant 04/30 [facility] 2. Dry eye -recommend OTC preservative-free artificial tears 4-6/day and prn. F/u 6-8 wks - dilate and OCT OU Burton Schroeder, DO 1021 CC: Aris Ram, OD PCP: Douglas Dennison, DO TIMEOUT PROCEDURE: correct patient identity-YES correct procedure and consent-YES verified side and site-YES correct patient position-YES all necessary equipment/prior studies present-YES reviewed special requirements of this patient-YES PROCEDURE: Intravitreal injection of Avastin 1.25mg OD INFORMED CONSENT: Patient is aware that this [...] documented in this encounter Nursing Notes * Pool Hoyos RN - 12/17/2022 1:26 PM EDT Bernard Jones to receive # 12 Avastin 1.25mg Injection of the Right eye. Correct eye confirmed with patient and marked by Burton Schroeder DO Avastin 1.25mg lot # [id number] Exp. Date: 02/06/23 * Lucille Loo RN - 12/17/2022 12:57 PM EDT Bernard Jones is a 37 year old year old male who presents for PDR OU. Last Office Visit: 08/23/2022 (in office), Visit date not found (telemedicine) Patient currently states "started last week-right eye black lines down through it and was blacked out the next" Are you diabetic? Yes. Do you check your blood sugars daily? YES. Did not measure this morning. Last Hemoglobin A1C: Lab Results Component Value Date/Time HGBA1C 4.9 12/03/2022 12:00 AM HGBA1C 5.2 11/01/2021 10:22 AM HGBA1C 5.3 09/14/2021 09:15 AM HGBA1C 5.2 09/08/2021 09:12 AM HGBA1C 8.0 (H) 12/07/2019 12:02 PM HGBA1C 13.8 (H) 02/14/2019 02:56 PM HGBA1C 14.0 (H) 10/28/2018 02:[address] no OCT image(s) of right eyes acquired and filed/scanned into chart. documented in this encounter Plan of Treatment Upcoming Encounters Date Type Specialty Care Team Description 12/18/2022 Office Visit Orthopedics Sharer, Lesley aMrley PA-C [address] [place] [address] 01/14/2023 Office Visit Family Medicine Autumn, Ryan Henson MD [address] [place] [address] Health Maintenance Due Date Last Done Comments Hepatitis B (1 of 3 - 3-dose series) 1983 Pneumococcal Vaccine: Pediatrics (0 to 5 Years) and At-Risk Patients (6 to 64 Years) (1 - PCV) 09/30/1989 Depression Screening, Annual for Pts 12 and Over 1995 Albumin/Creatinine Ratio 09/30/2001 DIABETES-FOOT EXAM 09/30/2001 COVID-19 Vaccine (3 - Moderna risk series) 09/06/2020 08/09/2020, 07/12/2020 Influenza Vaccine (FLU shot) (#1) 2023 03/07/2020, 03/07/2020, 03/18/2019, Additional history exists HbA1c 06/04/2023 12/03/2022, 10/09, 09/14/2021, Additional history exists GFR 12/04/2023 12/03/2022, 10/08, 04/18/2022, Additional history exists DIABETES-EYE EXAM 12/18/2023 12/17/2022, , 03/27/2021, Additional history exists DTaP,Tdap,and Td Vaccines (3 [...] as of this encounter Visit Diagnoses Diagnosis Stable proliferative diabetic retinopathy of both eyes associated with type 1 diabetes mellitus (HCC)- Primary Encounter for diabetes type 1 eye exam (HCC) Type I (juvenile type) diabetes mellitus without mention of complication, not stated as uncontrolled documented in this encounter Administered Medications Active Administered Medications - up to 3 most recent administrations Medication Order MAR Action Action Date Dose Rate Site bevaCIZumab (Avastin) inj 1.25 mg 1.25 mg, Intravitreal, PRN Other, Starting on Sat06/29/22 at 1339, Until 06/29/23 at 1338, For 365 days Given 12/17/2022 1:27 PM EDT 1.25 mg Eye R ight Given 08/23/2022 10:31 AM EDT 1.25 mg E ye Right Given 08/10/2022 9:53 AM EST 1.25 mg Ey e Left ROPivacaine (Naropin) inj 1.5 mg 1.5 mg, Perineural, PRN Other, Starting on Sat06/29/22 at 1339, Until 06/29/23 at 1338, For 365 days Given 12/17/2022 1:26 PM EDT 1.5 mg Eye R ight Given 08/23/2022 10:30 AM EDT 1.5 mg E ye Right Given 08/10/2022 9:52 AM EST 1.5 mg Ey e Left documented in this encounter Advance Directives Latest Code Status on File Code Status Date Activated Date Inactivated Comments Full Code 02/14/2019 10:34 PM 02/20/2019 3:48 PM This order reflects the patients wishes and were consensually agreed upon. Question Answer Comments Discussion of Advance Directives occurred with: Not Discussed Care Teams Cake Maker Relationship Specialty Start Date End Date Ryan Leyva MD [address] [place] [address] PCP - General Family Medicine 07/17/22 documented as of this encounter
--- OUTSIDE RECORDS SUMMARY | 2023-06-04 16:42 | External Medical Summary | Summary of Care ---
Author Name Unknown Organization [facility] Address [address] [place] [address] Phone [phone] Care Team Providers Care Wheel Of Fortune Dealer Name Role Phone Ryan Leyva MD Primary Care Provider [phone] Reason for Visit * Reason Onset Date Comments Advice 01/30/2023 Foot needs treat ment Encounter Details Date Type Department Care Team Description 01/30/2023 Telephone Family Practice [facility] [address] [place] [address] Ryan Leyva MD [address] [facility] [place] [address] Advice (Foot needs treatment) Allergies No known active allergiesdocumented as of this encounter (statuses as of 01/31/2023) Medications Medication Sig Dispensed Refills Start Date [...] as of this encounter (statuses as of 01/31/2023) Active Problems Problem Noted Date Venous stasis [...] as of this encounter (statuses as of 01/31/2023) Resolved Problems Problem Noted Date Resolved Date [...] as of this encounter (statuses as of 01/31/2023) Immunizations Name Administration Dates Next Due COVID-19 [...] Miscellaneous Notes * Telephone Encounter - Jaymie Calabrese - 01/31/2023 12:38 PM EDT Appt scheduled with pt * Telephone Encounter - Samra Jin LPN - 01/31/2023 12:04 PM EDT Offer pt appt with Dr. Leyva. * Telephone Encounter - Ryan Leyva MD - 01/30/2023 8:01 PM EDT I had talked about an injection maybe. It wasn't "definite" that I was going to do it, and it's notan emergency by any means. He can wait to see me when I'm available or see someone else to talk about what is going on. * Telephone Encounter - ZEINA Treviño - 01/30/2023 4:[address] PM [address]T Patient says Dr Leyva stated that if his foot did not improve, Dr Leyva would give him a treatment.The foot has not improved, in fact gotten worse. Dr. Leyva has no appts, could another provider handle the treatment? documented in this encounter Plan of Treatment Upcoming Encounters Date Type Specialty Care Team Description 02/05/2023 Office Visit Ophthalmology Burton Schroeder DO [address] [place] [address] 02/15/2023 Office Visit Family Medicine Ryan Leyva MD [address] [place] [address] Health Maintenance Due Date Last Done Comments Hepatitis B (1 of 3 - 3-dose series) 1983 Pneumococcal Vaccine: Pediatrics (0 to 5 Years) and At-Risk Patients (6 to 64 Years) (1 - PCV) 09/30/1989 Depression Screening, Annual for Pts 12 and Over 1995 Albumin/Creatinine Ratio 09/30/2001 COVID-19 Vaccine (3 - Moderna risk [...] Directives occurred with: Not Discussed Care Teams Wheel Of Fortune Dealer Relationship Specialty Start Date End Date Ryan Leyva MD [address] [place] [address] PCP - General Family Medicine 07/17/22 documented as of this encounter
--- OUTSIDE RECORDS SUMMARY | 2023-06-04 16:42 | External Medical Summary | Summary of Care ---
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 [address] [place] [address] Burton Schroeder DO [address] [place] [address] Stable proliferative diabetic retinopathy of both eyes [...] - 12/17/2022 1:00 PM EDT [facility] [place] Nursing [...] dilated is not recommended. Strabismus Exam Correction: vt Observations: Ortho Distance Near Near +3DS N Bifocals cover/uncover, and alternate cover EXTERNAL: The ocular adnexae are unremarkable. SLE: Lids/Lashes: wnl OU Conjunctiva/Sclera: quiet OU Cornea: clear OU Anterior Chamber: deep and quiet OU Iris: normal OU; no NVI OU Lens: +nsc OU Dilated fundus exam OD: vitreous: trace old VH optic nerve: 0.3, regressed NVD; no edema/pallor macula: +video games mechanic vessels: ischemic midperiphery: +PRP, segmented membranes periphery: +video games mechanic, +PRP, no RT/RD Dilated fundus exam OS: vitreous: +VH-worse optic nerve: 0.3, +segmented fibrovascular tuft, no edema/pallor/NVD macula: +video games mechanic vessels: ischemic midperiphery: +PRP, segmented membranes periphery: +video games mechanic, +PRP, segmented fibrovascular membranes, no RT/RD OCT [...] Burton Schroeder DO Avastin 1.25mg lot # [id number] Exp. Date: 02/06/23 * Lucille Loo RN [...] Description 12/18/2022 Office Visit Orthopedics Sharer, Lesley Marley PA-C [address] [place] [address] 01/14/2023 Office Visit Family Medicine Autumn, Ryan Henson MD [address] [place] [address] Health Maintenance Due Date Last Done Comments [...] Directives occurred with: Not Discussed Care Teams Waste Elimination Relationship Specialty Start Date End Date Ryan Leyva MD [address] [place] [address] PCP - General Family Medicine 07/17/22 documented as of this encounter
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
--- OUTSIDE RECORDS SUMMARY | 2023-06-04 16:42 | External Medical Summary | Summary of Care ---
Author Name Unknown Organization [facility] Address [address] [place] [address] Phone [phone] Care Team Providers Care Lamination Builder Name Role Phone Ryan Leyva MD Primary Care Provider [phone] Reason for Visit * Reason Onset Date Comments Medication Refill 01/31/2023 Encounter Details Date Type Department Care Team Description 01/31/2023 Refill Family Practice [facility] [address] [place] [address] Ryan Leyva MD [address] [place] [address] JOB (generalized anxiety disorder) Allergies No known [...] encounter Miscellaneous Notes * Telephone Encounter - James Palomino [facility] - 01/31/2023 1:24 PM EDTRefused Prescriptions: Disp Refills clonazePAM 0.5 MG Oral Tablet (KlonoPIN) 60 Tab*1 Sig: Take 1 Tablet by mouth 2 times a day as needed for Anxiety.Refused By: JAMES PALOMINO for Refusal: Too soon documented in this encounter Plan of Treatment Upcoming Encounters Date Type Specialty Care Team Description 02/05/2023 Office Visit Ophthalmology Burton Schroeder DO [address] [place] [address] 02/15/2023 Office Visit Family Medicine Ryan Leyva MD [address] [place] [address] Health Maintenance Due Date Last Done Comments [...] Directives occurred with: Not Discussed Care Teams Lamination Builder Relationship Specialty Start Date End Date Ryan Leyva MD [address] [place] [address] PCP - General Family Medicine 07/17/22 documented as of this encounter
--- OUTSIDE RECORDS SUMMARY | 2023-06-04 16:42 | External Medical Summary | Summary of Care ---
Author Name Unknown Organization [facility] Address [address] [place] [address] Phone [phone] Care Team Providers Care Box Person Name Role Phone Ryan Leyva MD Primary Care Provider [phone] Reason for Visit * Reason Comments Follow Up Right wrist fracture Encounter Details Date Type Department Care Team Description 12/04/2022 Office Visit Orthopaedics [facility] [address] [place] [address] SharerLesley PA-C [address] [place] [address] Closed fracture of distal end of right radius with routine healing, unspecified fracture morphology, subsequent encounter*; Closed nondisplaced fracture of styloid process of right ulna with routine healing, subsequent encounter Allergies No known active allergiesdocumented as of this encounter (statuses as of 12/07/2022) Medications Medication Sig Dispensed Refills Start Date [...] the morning. 90 Tablet 3 07/17/2022 Active Sulfamethoxazole-T rimethoprim 400-80 MG Oral Tablet (Bactrim) Take 1 [...] the evening. 180 Tablet 3 10/08/2022 Active Pregabalin 50 MG Oral Capsule (Lyrica) Take 1 Capsule by mouth in the morning and 1 Capsule at noon and 1 Capsule before bedtime. 90 Capsule 0 10/09/2022 Active Additional Information Patient not taking.Informant: Patient, Reported on 10/30/2022 NIFEdipine ER Osmotic Release 30 MG Oral Tablet Extended Release 24 Hour (Procardia XL) Take 1 Tablet by mouth daily. 0 10/26/2022 Active Acetaminophen 325 MG Oral Tablet (Tylenol) Take 3 Tablets by mouth in the morning and 3 Tablets at noon and 3 Tablets before bedtime. 0 10/21/2022 Active oxyCODONE HCl 5 MG Oral Tablet (Oxy IR) Take 1 Tablet by mouth 4 times a day as needed for Pain. 0 10/21/2022 Active Methadone HCl 10 MG/5ML Oral Solution Take 50 mL by mouth daily. 0 Active clonazePAM 0.5 MG Oral Tablet (KlonoPIN)Indicati ons:JOB (generalized anxiety disorder) Take 1 Tablet by mouth 2 times a day as needed for Anxiety. 60 Tablet 1 12/04/2022 Active Hospital, Clinic, or Other Facility Administered [...] as of this encounter (statuses as of 12/07/2022) Active Problems Problem Noted Date History of [...] as of this encounter (statuses as of 12/07/2022) Resolved Problems Problem Noted Date Resolved Date DKA (diabetic ketoacidoses) 02/20/20190 11/2022 Acute respiratory failure with hypoxia 9 07/16/2022 Aspiration pneumonia 02/20/2019 07/16/2022 Type 1 diabetes mellitus with ketoacidosis witho ut coma 02/16/2019 07/16/2022 Hypertensive emergency without congestive heart failure 02/16/2019 07/16/2022 Encephalopathy acute 02/16/2019 07/16/2022 ESRD on peritoneal dialysis 10/18/2016 020 11/2022 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 Consult requested by Self. Bernard Jones is here unaccompanied History: Patient presents for 6 week follow up with intraarticular distal radius and ulnar styloid fracture.Patient has been immobilized in short arm EXOS which he has been wearing consistently. Patient has been compliant with weight-bearing restrictions. Patient denies any numbness or tingling. Review of systems: All others negative except those noted above in HPI. Past Medical History: Diagnosis Date ESRD (end stage renal disease) ([facility]) 12/16/2017 JOB (generalized anxiety disorder) 10/28/2022 Hepatitis C 2017 unknown if treated History of drug abuse ([facility]) 10/30/2022 IVDA Hypertension Kidney replaced by transplant 07/16/2022 NPDR (nonproliferative diabetic retinopathy) ([facility]) 09/05/2016 Dr Schroeder 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 ([facility]) 07/16/2022 Type 1 diabetes mellitus ([facility]) 1990 Family History Problem Relation Age of Onset [...] Social History Socioeconomic History Marital status: Single Spouse name: Not on file Number of children: 1 Years of education: Not on file Highest education level: Not on file Occupational History Occupation: disability Tobacco Use Smoking status: Former Types: Vaporizer Smokeless tobacco: Current Types: Snuff Tobacco comments: 12/07/19-quit 2 yrs ago Vaping Use Vaping Use: Never used Substance and Sexual Activity Alcohol use: No Drug use: No Sexual activity: Not Currently Partners: Female Other Topics Concern Not on file Social History Narrative Not on file Social Determinants of Health Financial Resource Strain: Not on file Food Insecurity: Not on file Transportation Needs: Not on file Physical Activity: Not on file Stress: Not on file Social Connections: Not on file Intimate Partner Violence: Not on file Housing Stability: Not on file Past Surgical History: Procedure Laterality Date HC [...] 08/23/2022 # 11 Avastin OD; Dr Schroeder LASER TRABECULOPLASTY Right 09/10/2016 PRP of the RIGHT eye; Dr. Elda CHOWDARY ORDER ([facility] ONLY) Left 07/24/2016 Avastin OS Consent [...] OU CONSENT SIGNED Dr. Schroeder/Jose Raul (exp 1-20-24) PANCREAS SURGERY PROCEDURE NEC 2020 Pancreatic Transplant PARTIAL REMOVAL OF EYE FLUID Right 05/26/2018 S/P 23G PPV/MP/seg/EL for PDR/TRD/VH/ERM OD REMOVAL OF TONSILS, UNDER AGE 10 SURGICAL REMOVAL, ERUPTED TOOTH AND BONE SURGICAL REMOVAL, ERUPTED TOOTH AND BONE 01/2017 Physical Exam There were no vitals filed for this visit. Estimated body mass index is 28.94 kg/m as calculated from the following: Height as of 10/30/22: 1.778 m (5' 10"). Weight as of 10/30/22: 91.5 kg (201 lb 11.2 oz). General: generally well-nourished and in no acute distress HEENT: normocephalic, atraumatic, sclera anicteric. Psych: mood and affect normal , cooperative Card: Peripheral pulses: normal in affected extremity (s) Resp: equal chest rise, non-tachypneic, non-labored breathing Skin: no rash, normal Neuro: Coordination: normal; Sensation: normal on affected extremity (s) MSK: Wrist Exam, Bilateral Inspection: No swelling of the forearm, wrist or hand. Palpation: No tenderness to palpation along distal radius and ulna. No snuffbox tenderness Numbness/Tingling: None Bilateral Radiology (I have personally reviewed the following films): X-ray of the right wrist reveals healing intra-articular comminuted distal radius fracture and ulnar styloid fracture - per my interpretation. Awaiting formal radiology interpretation. Assessment and Plan: Closed fracture of distal end of right radius with routine healing, unspecified fracture morphology, subsequent encounter (Primary) - XR WRIST 3 OR MORE VIEWS Closed nondisplaced fracture of styloid process of right ulna with routine healing, subsequent encounter Recommend transitioning to cock-up wrist splint. Patient may remove brace for light activities only. Recommend patient wear the wrist splint when active. Follow-up in 2 weeks and may consider physical therapy referral. Lesley Ham PA-C Primary Care Sports Medicine Orthopaedics [address] [place] [address] documented in this encounter Nursing Notes * KUNAL Delgado - 12/04/2022 2:56 PM EDT Patient presents today for 3 week follow up on right wrist fracture, doing well. documented in this encounter Miscellaneous Notes * Addendum Note - Rashmi Toledo LPN - 12/07/2022 3:44 PM EDTAddended by: RASHMI TOLEDO on: 12/07/2022 03:44 PM Modules accepted: Orders documented in this encounter Plan of Treatment Upcoming Encounters Date Type Specialty Care Team Description 12/18/2022 Office Visit Orthopedics Sharer, Lesley Marley PA-C [address] [place] [address] 01/14/2023 Office Visit Family Medicine Ryan Leyva MD [address] [place] [address] Pending Results Name Type Priority Associated Diagnoses Date /Time XR WRIST 3 OR MORE VIEWS Medical Imaging Routine Closed fracture of distal end of right radius with routine healing, unspecified fracture morphology, subsequent encounter 12/04/2022 3:03 PM EDT Health Maintenance Due Date Last Done Comments Hepatitis B (1 of 3 - 3-dose series) 1983 Pneumococcal Vaccine: Pediatrics (0 to 5 Years) and At-Risk Patients (6 to 64 Years) (1 - PCV) 09/30/1989 Depression Screening, Annual for Pts 12 and Over 1995 Albumin/Creatinine Ratio 09/30/2001 DIABETES-FOOT EXAM 09/30/2001 COVID-19 Vaccine (3 - Moderna risk series) 09/06/2020 08/09/2020, 07/12/2020 DIABETES-EYE EXAM 09/15/2022 09/15/2021, , 02/02/2021, Additional history exists Influenza Vaccine (FLU shot) (Season Ended) 2023 03/07/2020, 03/07/2020, 03/18/2019, Additional history exists [...] as of this encounter Visit Diagnoses Diagnosis Closed fracture of distal end of right radius with routine healing, unspecified fracture morphology, subsequent encounter- Primary Closed nondisplaced fracture of styloid process of right ulna with routine healing, subsequent encounter documented in this encounter Advance Directives Latest Code Status on File Code Status Date Activated Date Inactivated Comments Full Code 02/14/2019 10:34 PM 02/20/2019 3:48 PM This order reflects the patients wishes and were consensually agreed upon. Question Answer Comments Discussion of Advance Directives occurred with: Not Discussed Care Teams Box Person Relationship Specialty Start Date End Date Ryan Leyva MD [address] [place] [address] PCP - General Family Medicine 07/17/22 documented as of this encounter
--- OUTSIDE RECORDS SUMMARY | 2023-06-04 16:42 | External Medical Summary | Summary of Care ---
Author Name Unknown Organization [facility] Address [address] [place] [address] Phone [phone] Care Team Providers Care Trapper Bird Name Role Phone Farida Do MD Primary Care Provider [phone] Reason for Visit * Reason Comments eRx-Medication Refill Encounter Details Date Type Department Care Team Description 01/25/2023 Refill Family Practice [facility] [address] [place] [id number] Farida Do MD [address] [place] [address] Type 1 diabetes mellitus with hemoglobin A1c goal of less than 7.0% ([facility])* Allergies No known active allergiesdocumented as of this encounter (statuses as of 01/26/2023) Medications Medication Sig Dispensed Refills Start Date [...] Oral Capsule (Lyrica)Indicati ons:History of drug abuse ([facility]) Take 1 Capsule by mouth in the morning and 1 Capsule at noon and 1 Capsule before bedtime. 90 Capsule 0 01/14/2023 Active Rosuvastatin Calcium 10 MG Oral Tablet (Crestor)Indicat ions:Type 1 diabetes mellitus with hemoglobin A1c goal of less than 7.0% ([facility]) TAKE 1 TABLET BY MOUTH EVERY MORNING 90 Tablet 0 01/26/2023 Active Rosuvastatin Calcium 10 MG Oral Tablet (Crestor) Take 1 Tablet by mouth in the morning. 90 Tablet 3 07/17/2022 01/26/2023 Discontinued Hospital, Clinic, or Other Facility Administered [...] with type 1 diabetes mellitus ([facility]),Vitreous hemorrhage of left eye ([facility]) 1.5 mg PERINEURAL PRN 06/29/2022 06/29/2023 Active documented as of this encounter (statuses as of 01/26/2023) Active Problems Problem Noted Date Venous stasis [...] as of this encounter (statuses as of 01/26/2023) Resolved Problems Problem Noted Date Resolved Date [...] as of this encounter (statuses as of 01/26/2023) Immunizations Name Administration Dates Next Due COVID-19 [...] encounter Miscellaneous Notes * Telephone Encounter - Austin [facility] - 01/26/2023 3:32 PM EDT Signed Prescriptions: Disp Refills Rosuvastatin Calcium 10 MG Oral Tablet (Cr*90 Tab*0 Sig: TAKE 1 TABLET BY MOUTH EVERY MORNINGAuthorizing Provider: FARIDA DO User: AUSTIN FISCHER documented in this encounter Plan of Treatment Upcoming Encounters Date Type Specialty Care Team Description 01/30/2023 Office Visit Ophthalmology Burton Schroeder, DO [address] [place] [address] Scheduled Orders Name Type Priority Associated Diagnoses Orde r Schedule LIPID PANEL WITH DIRECT LDL IF TG IS HIGH Lab Routine Type 1 diabetes mellitus with hemoglobin A1c goal of less than 7.0% (HCC) Expected: 02/02/2023 (Approximate), Expires: 02/02/2024 Health Maintenance Due Date Last Done Comments [...] as of this encounter Visit Diagnoses Diagnosis Type 1 diabetes mellitus with hemoglobin A1c goal of less than 7.0% (HCC)- Primary documented in this encounter Advance Directives Latest Code Status on File Code Status Date Activated Date Inactivated Comments Full Code 02/14/2019 10:34 PM 02/20/2019 3:48 PM This order reflects the patients wishes and were consensually agreed upon. Question Answer Comments Discussion of Advance Directives occurred with: Not Discussed Care Teams Trapper Bird Relationship Specialty Start Date End Date Farida Do MD [address] [place] [address] PCP - General Family Medicine 07/17/22 documented as of this encounter
--- OUTSIDE RECORDS SUMMARY | 2023-06-04 16:42 | External Medical Summary | Summary of Care ---
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, bilateral (HCC) Procedures RI BEVACIZUMAB INJECTION INJECTION OF EYE DRUG Burton Schroeder DO [address] [place] [address] Ophthalmology [facility] [address] [facility] [place] [address] Referral ID Status Reason Start Date Expiration Date V isits Requested Visits Authorized [id number] Authorized Precert 05/31/2022 06/09/[phone] Encounter Details Date Type Department Care Team Description 12/17/2022 Office Visit Ophthalmology, [facility] [address] [place] [address] Burton Schroeder DO [address] [place] [address] Stable proliferative diabetic retinopathy of both eyes [...] - 12/17/2022 1:00 PM EDT [facility] [place] Nursing [...] dilated is not recommended. Strabismus Exam Correction: sd Observations: Ortho Distance Near Near +3DS N Bifocals cover/uncover, and alternate cover EXTERNAL: The ocular adnexae are unremarkable. SLE: Lids/Lashes: wnl OU Conjunctiva/Sclera: quiet OU Cornea: clear OU Anterior Chamber: deep and quiet OU Iris: normal OU; no NVI OU Lens: +nsc OU Dilated fundus exam OD: vitreous: trace old VH optic nerve: 0.3, regressed NVD; no edema/pallor macula: +engineering test specialist vessels: ischemic midperiphery: +PRP, segmented membranes periphery: +engineering test specialist, +PRP, no RT/RD Dilated fundus exam OS: vitreous: +VH-worse optic nerve: 0.3, +segmented fibrovascular tuft, no edema/pallor/NVD macula: +engineering test specialist vessels: ischemic midperiphery: +PRP, segmented membranes periphery: +engineering test specialist, +PRP, segmented fibrovascular membranes, no RT/RD OCT [...] f/u and compliance -had pancreas/kidney transplant 04/30 [facility] 2. Dry eye -recommend OTC preservative-free artificial [...] Burton Schroeder DO Avastin 1.25mg lot # [id number] Exp. Date: 02/06/23 * Lucille Loo RN [...] Marley PA-C [address] [place] [address] 01/14/2023 Office Visit Family Medicine Ryan Leyva MD [address] [place] [address] 01/30/2023 Office Visit Ophthalmology Burton Schroeder DO [address] [place] [address] Health Maintenance Due Date Last Done Comments [...] Directives occurred with: Not Discussed Care Teams Draw Operator Relationship Specialty Start Date End Date Ryan Leyva MD [address] [place] [address] PCP - General Family Medicine 07/17/22 documented as of this encounter
--- OUTSIDE RECORDS SUMMARY | 2023-06-04 16:42 | External Medical Summary | Summary of Care ---
Author Name Unknown Organization [facility] Address [address] [place] [address] Phone [phone] Care Team Providers Care Crop Pest Control Specialist Name Role Phone Ryan Leyva MD Primary Care Provider [phone] Reason for Visit * Reason Onset Date Comments Medication Refill 01/03/2023 Encounter Details Date Type Department Care Team Description 01/03/2023 Refill Family Practice [facility] [address] [place] [address] Ryan Leyva MD [address] [place] [address] JOB (generalized anxiety disorder) Allergies No known active allergiesdocumented as of this encounter (statuses as of 01/04/2023) Medications Medication Sig Dispensed Refills Start Date [...] the morning. 90 Tablet 3 07/17/2022 Active Sulfamethoxazole-Tri methoprim 400-80 MG Oral Tablet [...] 1 Tablet before bedtime. 0 12/08/2022 Active Hospital, Clinic, or Other Facility Administered [...] as of this encounter (statuses as of 01/04/2023) Active Problems Problem Noted Date History of [...] as of this encounter (statuses as of 01/04/2023) Resolved Problems Problem Noted Date Resolved Date DKA (diabetic ketoacidoses) 02/20/20190 11/2022 Acute respiratory failure with hypoxia 9 07/16/2022 Aspiration pneumonia 02/20/2019 07/16/2022 Type 1 diabetes mellitus with ketoacidosis witho ut coma 02/16/2019 07/16/2022 Hypertensive emergency without congestive heart failure 02/16/2019 07/16/2022 Encephalopathy acute 02/16/2019 07/16/2022 ESRD on peritoneal dialysis 10/18/201611/2022 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 07/24/2016 07/17/2022 Overview: ICD-10 update of inactive term Hepatitis C 06/10/2016 04/26/2020 Overview: HCV treated; SVR confirmed 04/18/2020 documented as of this encounter (statuses as of 01/04/2023) Immunizations Name Administration Dates Next Due COVID-19 [...] encounter Miscellaneous Notes * Telephone Encounter - Letty Desir RPh - 01/04/2023 8:09 AM EDTRefused Prescriptions: Disp Refills clonazePAM 0.5 MG Oral Tablet (KlonoPIN) 60 Tab*1 Sig: Take 1 Tablet by mouth 2 times a day as needed for Anxiety.Refused By: LETTY DESIR for Refusal: Too soon documented in this encounter Plan of Treatment Upcoming Encounters Date Type Specialty Care Team Description 01/14/2023 Office Visit Family Medicine Ryan Leyva MD [address] [place] [address] 01/30/2023 Office Visit Ophthalmology Burton Schroeder DO [address] [place] [address] Health Maintenance Due Date Last Done Comments [...] Directives occurred with: Not Discussed Care Teams Crop Pest Control Specialist Relationship Specialty Start Date End Date Ryan Leyva MD [address] [place] [address] PCP - General Family Medicine 07/17/22 documented as of this encounter
--- NOTE | 2023-06-04 17:00 | Ultrasound Report ---
ULTRASOUND LEFT LOWER EXTREMITY VENOUS CLINICAL HISTORY: Left leg pain and swelling. COMPARISON STUDY: Bilateral lower extremity venous ultrasound dated 12/08/2022. TECHNIQUE: Real-time, grayscale, and color Doppler sonography of the deep veins of the left lower ext remity was performed from the inguinal crease to the calf. Compression and augmentation were utilized . FINDINGS: There is no sonographic evidence of deep venous thrombosis identified in the left lower ext remity. The common femoral, superficial femoral, and popliteal veins are patent and normally compress ible. The greater saphenous vein and the profunda femoris vein at the junction with the common femora l vein are clear. The visualized calf veins are patent. IMPRESSION: There is no sonographic evidence of deep venous thrombosis identified in the left lower e xtremity. ACT 112: Negative or not required by law. Electronically signed by: Jorge Simms M.D. 06/04/2023 4:59 PM
[2023-06-04 18:06] LABS: Basophils # (auto) 0.04 K/uL (0.00-0.20); Basophils % (auto) 0.5 %; Eosinophils # (auto) 0.05 K/uL (0.00-0.50); Eosinophils % (auto) 0.6 %; Hematocrit (blood only) 55.8 % (42.0-52.0); Hemoglobin 17.1 g/dl (14.0-18.0); Immature Granulocytes # (auto) 0.13 K/uL (0.01-0.20); Immature Granulocytes % (auto) 1.6 %; Lymphocytes # (auto) 1.24 K/uL (1.20-3.40); Lymphocytes % (auto) 15.3 %; Mean Corpuscular Hemoglobin 26.6 pg (25.0-34.0); Mean Corpuscular Hgb Conc 30.6 g/dL (32.0-36.0); Mean Corpuscular Volume 86.6 fL (80.0-100.0); Mean Platelet Volume 8.8 fL (9.4-12.4); Monocytes # (auto) 0.97 K/uL (0.11-0.59); Neutrophils # (auto) 5.66 K/uL (1.40-6.50); Platelet Count 156 K/uL (130-400); RDW Coefficient of Variation 20.4 % (11.5-14.5); RDW Standard Deviation 59.9 fL (36.4-46.3); Red Blood Count 6.44 M/uL (4.70-6.10); White Blood Count 8.09 K/ul (4.8-10.8)
[2023-06-04 18:17] LABS: Albumin Globulin Ratio 1.1 (0.9-2); Albumin Level 3.2 gm/dl (3.4-5.0); BUN Creatinine Ratio 20.9 (10-20); Bilirubin,Total 1.4 mg/dl (0.2-1.0); Calcium 10.1 mg/dl (8.6-10.3); Creatinine Clr Calc Pharmacy 112.5 ml/min; Est GFR (African American) 122.6 ml/min; Est GFR (Non-African American) 105.8 ml/min; Potassium 3.6 mmol/L (3.5-5.1); Total Protein 6.2 gm/dl (6.0-8.3)
[2023-06-04 18:32] LABS: INR 1.2 (0.9-1.1); Partial Thromboplastin Ratio 1.2; Partial Thromboplastin Time 33 Seconds (21-31); Prothrombin Time 12.6 Seconds (9.0-12.0)
[2023-06-04 18:45] LABS: Anisocytosis Present; Echinocytes 1+; Polychromasia 1+; Tear Drop Cells 1+
[2023-06-04] MEDS ORDERED: cefTRIAXone SODIUM 2,000 MG/50 ML BAG IV STA (21:54)
--- NOTE | 2023-06-04 22:03 | Emergency Department Note ---
Impression & Plan Cellulitis of left leg, Elevated procalcitonin ED Provider Note HISTORY OF PRESENT ILLNESS: Patient is a 37-year-old male presenting with left lower extremity erythema and swelling. Patient reports that he has had significant increase in swelling to his left lower extremity in the last 7 days. He notes that it was initially swollen just to his mid cagle on the left lower extremity but in the last 24 hours, the swelling has gone all the way up to his groin. He denies any fevers. He states he is short of breath. Denies any chest pain. He states that he has had previous rashes on his left forearm and right knee that was being treated with Bactrim. However, he saw accounts payables clerk who did a biopsy and he was told to hold his Bactrim as the bacteria on the biopsy was resistant to Bactrim. He has a history of a renal transplant and is on CellCept. He denies any recent travel or recent sick contact exposures. He is not currently on any antibiotics. ROS: as above PHYSICAL EXAM: Constitutional: Patient appears in no acute distress. HENT: Head: Normocephalic and atraumatic. Eyes: EOMI, PERRL Mouth/Throat: Mucous membranes moist. Neck: Trachea midline. Neck supple. Cardiovascular: RRR, No murmurs, rubs or gallops. Intact distal pulses. Pulmonary/Chest: No respiratory distress. Breath sounds clear and equal bilaterally. No wheezes or rales. Abdominal: Abdomen soft, no tenderness, rebound or guarding. Musculoskeletal: - LLE: Patient has significant erythema and waxy like appearance to his skin of his lower extremity from the knee down. Area is warm to the touch. Also notable pitting edema extending past the knee. Skin: Warm and dry. No rash, erythema, pallor or cyanosis Psychiatric: Appropriate mood and affect for situation. Neurological: Alert and keenly responsive. CN II-XII grossly intact, moving all extremities equally and fully. MDM: - Vitals signs showed hypertension - History obtained via patient. Patient presents with left lower extremity swelling and erythema. Reports that swelling has worsened in the last week and his leg is now erythematous. Denies any fevers. He is immunocompromised from a renal transplant is on CellCept. - Chronic conditions affecting care: DM-1; HTN; HLD; hepatitic C; ESRD (s/p renal transplant) - Differential diagnoses include, but are not limited to: DVT; cellulitis; contact dermatitis - Order placed for continuous cardiac monitoring. At this time, monitor showed rate of 86 bpm with normal sinus rhythm, per my interpretation. - External medical records reviewed. Wound care visit note dated 01/18/2023 was reviewed. Patient follows in wound care clinic for venous stasis ulcers, chronic venous insufficiency and abnormal brachial index levels. He is being treated for applications of Apligraf and was scheduled to follow-up in a week at their clinic but no further documentation is noted. - Laboratory workup interpreted by myself showed normal WBC; stable electrolytes; normal lactate; elevated procalcitonin (0.91) - Blood cultures obtained - US of LLE negative for DVT. - Patient's physical examination is concerning for cellulitis. Given immunocompromise state, will treat with IV antibiotics and admission. - IV rocephin ordered. - Discussion was had with spiritual care coordinator about patient's case and need for admission - Hospitalist, Dr. Lees, consulted for admission - [facility] ASSESSMENT AND PLAN: Diagnosis: cellulitis; elevated procalcitonin Plan: admit Past Med/Surg History Medical History Acute hypoxemic respiratory failure Anemia Anxiety Critical illness polyneuropathy Current vaping on some days Diabetes mellitus type I Diabetic retinopathy of both eyes End stage renal disease on dialysis due to type 1 diabetes mellitus Fever Gastroparesis Hepatitis C History of seizure seizure-like activity 02/14/2019 in setting of severe hyperglycemia (patient states he missed dialysis/insulin dose), DKA, confusion- lifeflighted to [place]/intubated/placed on ventilator. DKA managed with insulin drip on admission. EEG with no seizure activity noted. Neurology consulted and initially started patient on prophylactic Keppra but suspected seizure was complication of hyperglycemia and recommended weaning off anticonvulsants/advised no further neurology workup needed. Per patient, medication/dialysis compliance since discharge with glucoses in the range on 100's-200's on self-checks. Hyperglycemia Hypertension Long-term exposure involving bird droppings Nephrotic syndrome Peritonitis currently on intraperitoneal abx Pulmonary edema Substance abuse Withdrawal from opioids Surgical History H/O eye surgery Hx of tonsillectomy Hx of tooth extraction Hx of vitrectomy B/L; right vitrectomy: 05/26/18: LMA#5 at [facility] [place] Pancreas transplant status Peritoneal dialysis catheter in place Renal transplant recipient Family History Grandfather (Maternal) Diabetes Grandfather (Paternal) Diabetes Grandmother (Paternal) Diabetes Grandmother (Maternal) Diabetes Aunt Diabetes Uncle Diabetes Father Hypertension Brother Hypertension Social History Smoking Status: Never smoker Tobacco Type: Cigarettes Second Hand Exposure: No; Do You Dip or Chew Tobacco: Yes; Hx Alcohol Use: No Hx Substance Use: Yes (vaping) Last Used Substance: Days (ago) Substance Use Type Other:: On Methadone Preferred Language: [place] Communication Ability: Effective Communication Ability Comment: sedated, arouses easily Visual Impairment: Severely Limited Hearing Ability: Normal Cementer Hand Required: No Beliefs That Will Affect Care: None Current Living Situation: Alone Current Living Situation Comment: son with patient current occupational status: employed and unemployed Feels Safe at Home: Yes Childhood Exposure to Second-Hand Smoke: No Diet: regular Diet Comment: diabetic caffeine: Yes during the past year weight has: other Dental Care, Regularly: Yes Physical Activity Frequency: Daily Seatbelt Use: always Sunscreen Use: Yes Assistive Devices: None Allergies Allergies Allergy/AdvReac Type Severity Reaction Status Date / Time No Known Drug Allergies Allergy Unknown Verified 01/18/23 11:20 Home Meds Home Medications Medication Instructions Recorded Confirmed clonazepam 0.5 mg tablet 0.5 mg PO BID PRN Anxiety 11/03/18 06/04/23 tacrolimus 1 mg capsule,extended 1 mg PO BID 11/30/21 06/04/23 release 24 hr methadone 10 mg tablet 105 mg PO DAILY 10/20/22 06/04/23 mycophenolate mofetil 250 mg 750 mg PO BID 10/20/22 06/04/23 capsule rosuvastatin 10 mg tablet 10 mg PO DAILY 10/20/22 06/04/23 sulfamethoxazole 400 1 tab PO .HOLD 10/20/22 06/04/23 mg-trimethoprim 80 mg tablet aspirin 325 mg tablet 325 mg PO DAILY 12/19/22 06/04/23 acetaminophen 500 mg tablet 1,000 mg PO Q6H PRN Pain 06/04/23 06/04/23 (Tylenol Extra Strength) Previous Rx's Medication Instructions Recorded pregabalin 50 mg capsule (Lyrica) 50 mg PO TID #90 caps 03/14/21 carvedilol 6.25 mg tablet (Coreg) 6.25 mg PO BID #20 tabs 12/08/22 Results & Data (ED) Vital Signs Vital Signs - 24 hr 06/04/23 14:59 06/04/23 20:48 Temperature 36.5 C Temperature Source Temporal Artery Scan Pulse Rate 84 Pulse Rate [Finger] 86 Pulse Rhythm [Finger] Regular Pulse Strength [Finger] Normal Respiratory Rate 19 18 Respiratory Effort / Characteristics Non-Labored Spontaneous Respiratory Depth Normal Blood Pressure 127/69 Blood Pressure [Right Arm] 167/85 H Blood Pressure Mean 88 Blood Pressure Mean [Right Arm] 112 Blood Pressure Position [Right Arm] Sitting Pulse Oximetry 99 98 Oxygen Delivery Method Room Air Room Air Sepsis Recent Fever Within 48 Hours No Sepsis New/Unexplained Change in Mental Status N/A Sepsis Action Taken by Nursing No Action Required Laboratory Data 06/04/23 17:30 06/04/23 17:30 Lab Results 06/04/23 Range/Units 17:30 WBC 8.09 (4.8-10.8) K/ul RBC 6.44 H (4.70-6.10) M/uL Hgb 17.1 (14.0-18.0) g/dl Hct 55.8 H (42.0-52.0) % MCV 86.6 (80.0-100.0) fL MCH 26.6 (25.0-34.0) pg MCHC 30.6 L (32.0-36.0) g/dL RDW Std Deviation 59.9 H (36.4-46.3) fL RDW Coeff of Rebecca 20.4 H (11.5-14.5) % Plt Count 156 (130-400) K/uL MPV 8.8 L (9.4-12.4) fL Immature Gran % (Auto) 1.6 % Neut % (Auto) 70.0 % Lymph % (Auto) 15.3 % Ralls % (Auto) 12.0 % Eos % (Auto) 0.6 % Baso % (Auto) 0.5 % Neut # (Auto) 5.66 (1.40-6.50) K/uL Lymph # (Auto) 1.24 (1.20-3.40) K/uL Ralls # (Auto) 0.97 H (0.11-0.59) K/uL Eos # (Auto) 0.05 (0.00-0.50) K/uL Baso # (Auto) 0.04 (0.00-0.20) K/uL Immature Gran # (Auto) 0.13 (0.01-0.20) K/uL Polychromasia 1+ Anisocytosis Present Tear Drop Cells 1+ Echinocytes 1+ PT 12.6 H (9.0-12.0) Seconds INR 1.2 H (0.9-1.1) APTT 33 H (21-31) Seconds PTT Ratio 1.2 Sodium 137 (136-145) mmol/L Potassium 3.6 (3.5-5.1) mmol/L Chloride 100 (98-107) mmol/L Carbon Dioxide 28 (21-32) mmol/L Anion Gap 9 (3-11) BUN 19 (6-23) mg/dl Creatinine 0.91 (0.6-1.4) mg/dl Est Cr Clr Drug Dosing 112.5 ml/min Est GFR ( Amer) 122.6 ml/min Est GFR (Non-Af Amer) 105.8 ml/min BUN/Creatinine Ratio 20.9 H (10-20) Glucose 72 (70-99(Fasting)) mg/dl Lactate 1.0 (0.4-2.0) mmol/L Calcium 10.1 (8.6-10.3) mg/dl Total Bilirubin 1.4 H (0.2-1.0) mg/dl AST 25 (13-39) U/L ALT 27 (7-52) U/L Alkaline Phosphatase 112 H (34-104) U/L Total Protein 6.2 (6.0-8.3) gm/dl Albumin 3.2 L (3.4-5.0) gm/dl Globulin 3.0 (2.5-4.0) gm/dl Albumin/Globulin Ratio 1.1 (0.9-2) Procalcitonin 0.91 H (0-0.5) ng/ml Administered Medications Discontinued Medications Ceftriaxone Sodium (Rocephin) 2,000 mg in 50 mls @ 100 mls/hr IV NOW STA Stop: 06/04/23 22:23 Last Admin: 06/04/23 22:29 Dose: 100 mls/hr Documented By: AB Imaging Data Radiologist's Impression: Venous Doppler Study 06/04/23 15:04 ULTRASOUND LEFT LOWER EXTREMITY VENOUS CLINICAL HISTORY: Left leg pain and swelling. COMPARISON STUDY: Bilateral lower extremity venous ultrasound dated 12/08/2022. TECHNIQUE: Real-time, grayscale, and color Doppler sonography of the deep veins of the left lower extremity was performed from the inguinal crease to the calf. Compression and augmentation were utilized. FINDINGS: There is no sonographic evidence of deep venous thrombosis identified in the left lower extremity. The common femoral, superficial femoral, and popliteal veins are patent and normally compressible. The greater saphenous vein and the profunda femoris vein at the junction with the common femoral vein are clear. The visualized calf veins are patent. IMPRESSION: There is no sonographic evidence of deep venous thrombosis identified in the left lower extremity. ACT 112: Negative or not required by law. Electronically signed by: Jorge Simms M.D. 06/04/2023 4:59 PM Discharge Plan Visit Data Chief Complaint: Swelling/Edema to Extremity Stated Complaint: SWOLLEN LEFT LEG ED Provider: Suzanne Sexton Discharge Problem: Cellulitis of left leg, Elevated procalcitonin Forms Stand Alone Forms: My [facility] [place] Prescriptions Prescriptions: No Action tacrolimus 1 mg capsule,extended release 24hr 1 mg PO BID aspirin 325 mg tablet 325 mg PO DAILY pregabalin [Lyrica] 50 mg capsule 50 mg PO TID Qty: 90 2RF clonazepam 0.5 mg tablet 0.5 mg PO BID PRN (Reason: Anxiety) sulfamethoxazole-trimethoprim 400-80 mg tablet 1 tab PO .HOLD Rx Instructions: 3x/wk mycophenolate mofetil 250 mg capsule 750 mg PO BID Rx Instructions: 3 caps (250 each cap) BID rosuvastatin 10 mg tablet 10 mg PO DAILY methadone 10 mg Tablet 105 mg PO DAILY carvedilol [Coreg] 6.25 mg tablet 6.25 mg PO BID Qty: 20 2RF Rx Instructions: must administer with a meal/food acetaminophen [Tylenol Extra Strength] 500 mg Tablet 1,000 mg PO Q6H PRN (Reason: Pain) Referrals Referrals: Ryan Leyva MD [Primary Care Provider] -
--- NOTE | 2023-06-04 23:49 | History & Physical Report ---
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 Patient states he noticed swelling in left leg last Saturday but got progressively worse and having a lot of pain. States might of fever yesterday. Not able to put any weight on the leg. He is also having rash started on left arm 3 weeks ago and progressive getting bigger with blistering and skin peeling on the extremities and in the groin region. He saw dermatology on May 31 advised to stop Bactrim which he takes for his transplant after checking with his transplant team. Patient states his transplant team is okay to hold Bactrim for now until cause of his rash is figured out. Biopsy of the rash was done results are pending but cultures are growing Enterobacter cloacae complex resistant to cefoxitin but susceptible to cefepime and Zosyn, intermediate to Levaquin but sensitive to ciprofloxacin. Dermatology gave him ciprofloxacin and advised to check with transplant team if they are okay with his Cipro. Currently hemodynamically stable. Denies any headache. No cough. No runny nose. No chest pain or shortness of breath. No nausea. No abdominal pain. Bowels and bladder are moving okay.. Cellulitis of left leg Doppler is negative Received Rocephin in the ER Will continue with IV cefepime We will also get CT of left lower extremity for any underlying abscess or worsening of infection can check with the transplant Team for antibiotic choice Monitor the response Skin rash Affecting extremities and lower abdomen and groin With some skin peeling Recently saw dermatology Holding Bactrim Cultures growing Enterobacter cloacae complex which is resistant to cefoxitin, gentamicin, tobramycin and Bactrim. Intermediate to Levaquin. Sensitive to ciprofloxacin, cefepime and Zosyn Placed on on cefepime. Will consult ID. We also need to check with transplant team for antibiotic choice Follow pathology . 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 Patient states he noticed swelling in left leg last Saturday but got progressively worse and having a lot of pain. States might of fever yesterday. Not able to put any weight on the leg. He is also having rash started on left arm 3 weeks ago and progressive getting bigger with blistering and skin peeling on the extremities and in the groin region. He saw dermatology on May 31 advised to stop Bactrim which he takes for his transplant after checking with his transplant team. Patient states his transplant team is okay to hold Bactrim for now until cause of his rash is figured out. Biopsy of the rash was done results are pending but cultures are growing Enterobacter cloacae complex resistant to cefoxitin but susceptible to cefepime and Zosyn, intermediate to Levaquin but sensitive to ciprofloxacin. Dermatology gave him ciprofloxacin and advised to check with transplant team if they are okay with his Cipro. Currently hemodynamically stable. Denies any headache. No cough. No runny nose. No chest pain or shortness of breath. No nausea. No abdominal pain. Bowels and bladder are moving okay.. Past medical history. As mentioned above. Past surgical history. Will. Return dialysis. S/p pancreas transplant. S/p kidney transplant. Partial removal of right eye fluid. Tonsillectomy. Surgical removal of erupted tooth. Social history. Snuff tobacco. No alcohol use. No drug use. Family history. Brother has hypertension. Father has hypertension. Lung cancer. Mother from urosepsis. Diabetes in the family. Allergies Allergy/AdvReac Type Severity Reaction Status Date / Time No Known Drug Allergies Allergy Unknown Verified 01/18/23 11:20 Home Medications Medication Instructions Recorded Confirmed Type clonazepam 0.5 mg tablet 0.5 mg PO BID PRN Anxiety 11/03/18 06/04/23 History pregabalin 50 mg capsule (Lyrica) 50 mg PO TID #90 caps 03/14/21 06/04/23 Rx methadone 10 mg tablet 105 mg PO DAILY 10/20/22 06/04/23 History mycophenolate mofetil 250 mg 750 mg PO BID 10/20/22 06/04/23 History capsule rosuvastatin 10 mg tablet 10 mg PO DAILY 10/20/22 06/04/23 History sulfamethoxazole 400 1 tab PO .HOLD 10/20/22 06/04/23 History mg-trimethoprim 80 mg tablet carvedilol 6.25 mg tablet (Coreg) 6.25 mg PO BID #20 tabs 12/08/22 06/04/23 Rx aspirin 325 mg tablet 325 mg PO DAILY 12/19/22 06/04/23 History acetaminophen 500 mg tablet 1,000 mg PO Q6H PRN Pain 06/04/23 06/04/23 History (Tylenol Extra Strength) tacrolimus 1 mg capsule, 1 mg PO Q12H 06/05/23 06/05/23 History immediate-release Past Med/Surg History Medical History Acute hypoxemic respiratory failure Anemia Anxiety Critical illness polyneuropathy Current vaping on some days Diabetes mellitus type I Diabetic retinopathy of both eyes End stage renal disease on dialysis due to type 1 diabetes mellitus Fever Gastroparesis Hepatitis C History of seizure seizure-like activity 02/14/2019 in setting of severe hyperglycemia (patient states he missed dialysis/insulin dose), DKA, confusion- lifeflighted to [facility]/intubated/placed on ventilator. DKA managed with insulin drip on admission. EEG with no seizure activity noted. Neurology consulted and initially started patient on prophylactic Keppra but suspected seizure was complication of hyperglycemia and recommended weaning off anticonvulsants/advised no further neurology workup needed. Per patient, me dication/dialysis compliance since discharge with glucoses in the range on 100's-200's on self-checks. Hyperglycemia Hypertension Long-term exposure involving bird droppings Nephrotic syndrome Peritonitis currently on intraperitoneal abx Pulmonary edema Substance abuse Withdrawal from opioids Surgical History H/O eye surgery Hx of tonsillectomy Hx of tooth extraction Hx of vitrectomy B/L; right vitrectomy: 05/26/18: LMA#5 at [facility] Pancreas transplant status Peritoneal dialysis catheter in place Renal transplant recipient Family History Grandfather (Maternal) Diabetes Grandfather (Paternal) Diabetes Grandmother (Paternal) Diabetes Grandmother (Maternal) Diabetes Aunt Diabetes Uncle Diabetes Father Hypertension Brother Hypertension Social History Smoking Status: Never smoker Tobacco Type: Cigarettes Second Hand Exposure: No; Do You Dip or Chew Tobacco: Yes; Hx Alcohol Use: Yes Hx Substance Use: No Preferred Language: B[place] Communication Ability: Effective Communication Ability Comment: sedated, arouses easily Visual Impairment: Severely Limited Hearing Ability: Normal Room Service Food Server Required: No Beliefs That Will Affect Care: None Current Living Situation: Alone Current Living Situation Comment: aide help throughout the week current occupational status: employed and unemployed Feels Safe at Home: Yes Childhood Exposure to Second-Hand Smoke: No Diet: regular Diet Comment: diabetic caffeine: Yes during the past year weight has: other Dental Care, Regularly: Yes Physical Activity Frequency: Daily Seatbelt Use: always Sunscreen Use: Yes Assistive Devices: Crutches Review of Systems Review of Systems: All systems reviewed & are unremarkable except as noted in HPI & below Physical Exam Physical Exam: General- Not in distress Head- atraumatic Eyes- PERRL, EOMI. ENT- oropharynx clear Neck- supple, no JVD. Lungs- clear to auscultation no wheezing or crackles. Heart- regular rhythm; no murmur, no gallop. Abdomen- normal bowel sounds, soft, nontender, no distension. Extremities- left lower extremity swollen and erythematous. Neuro- alert, oriented x 3; , EOMI; no facial palsy; no dysarthria; moves extremities. Skin- erythematous rash involving extremities with skin peeling and in lower abdomen and groin region Results & Data Results & Data Vital Signs (Past 12 Hours) Vital Signs Temp Pulse Pulse Resp BP BP Pulse Ox 06/04/23 20:48 86 18 167/85 H 98 06/04/23 14:59 36.5 C 84 19 127/69 99 O2 Del Method 06/04/23 20:48 Room Air 06/04/23 14:59 Room Air Diagnostic Findings Laboratory Results WBC 8.09 K/ul (4.8-10.8) 06/04/23 17:30 RBC 6.44 M/uL (4.70-6.10) H 06/04/23 17:30 Hgb 17.1 g/dl (14.0-18.0) 06/04/23 17:30 Hct 55.8 % (42.0-52.0) H 06/04/23 17:30 MCV 86.6 fL (80.0-100.0) 06/04/23 17:30 MCH 26.6 pg (25.0-34.0) 06/04/23 17:30 MCHC 30.6 g/dL (32.0-36.0) L 06/04/23 17:30 RDW Std Deviation 59.9 fL (36.4-46.3) H 06/04/23 17:30 RDW Coeff of Rebecca 20.4 % (11.5-14.5) H 06/04/23 17:30 Plt Count 156 K/uL (130-400) 06/04/23 17:30 MPV 8.8 fL (9.4-12.4) L 06/04/23 17:30 Immature Gran % (Auto) 1.6 % 06/04/23 17:30 Neut % (Auto) 70.0 % 06/04/23 17:30 Lymph % (Auto) 15.3 % 06/04/23 17:30 [place] % (Auto) 12.0 % 06/04/23 17:30 Eos % (Auto) 0.6 % 06/04/23 17:30 Baso % (Auto) 0.5 % 06/04/23 17:30 Neut # (Auto) 5.66 K/uL (1.40-6.50) 06/04/23 17:30 Lymph # (Auto) 1.24 K/uL (1.20-3.40) 06/04/23 17:30 [place] # (Auto) 0.97 K/uL (0.11-0.59) H 06/04/23 17:30 Eos # (Auto) 0.05 K/uL (0.00-0.50) 06/04/23 17:30 Baso # (Auto) 0.04 K/uL (0.00-0.20) 06/04/23 17:30 Immature Gran # (Auto) 0.13 K/uL (0.01-0.20) 06/04/23 17:30 Polychromasia 1+ 06/04/23 17:30 Anisocytosis Present 06/04/23 17:30 Tear Drop Cells 1+ 06/04/23 17:30 Echinocytes 1+ 06/04/23 17:30 PT 12.6 Seconds (9.0-12.0) H 06/04/23 17:30 INR 1.2 (0.9-1.1) H 06/04/23 17:30 APTT 33 Seconds (21-31) H 06/04/23 17:30 PTT Ratio 1.2 06/04/23 17:30 Sodium 137 mmol/L (136-145) 06/04/23 17:30 Potassium 3.6 mmol/L (3.5-5.1) 06/04/23 17:30 Chloride 100 mmol/L (98-107) 06/04/23 17:30 Carbon Dioxide 28 mmol/L (21-32) 06/04/23 17:30 Anion Gap 9 (3-11) 06/04/23 17:30 BUN 19 mg/dl (6-23) 06/04/23 17:30 Creatinine 0.91 mg/dl (0.6-1.4) 06/04/23 17:30 Est Cr Clr Drug Dosing 112.5 ml/min 06/04/23 17:30 Est GFR ( Amer) 122.6 ml/min 06/04/23 17:30 Est GFR (Non-Af Amer) 105.8 ml/min 06/04/23 17:30 BUN/Creatinine Ratio 20.9 (10-20) H 06/04/23 17:30 Glucose 72 mg/dl (70-99(Fasting)) 06/04/23 17:30 Lactate 1.0 mmol/L (0.4-2.0) 06/04/23 17:30 Calcium 10.1 mg/dl (8.6-10.3) 06/04/23 17:30 Total Bilirubin 1.4 mg/dl (0.2-1.0) H 06/04/23 17:30 AST 25 U/L (13-39) 06/04/23 17:30 ALT 27 U/L (7-52) 06/04/23 17:30 Alkaline Phosphatase 112 U/L (34-104) H 06/04/23 17:30 Total Protein 6.2 gm/dl (6.0-8.3) 06/04/23 17:30 Albumin 3.2 gm/dl (3.4-5.0) L 06/04/23 17:30 Globulin 3.0 gm/dl (2.5-4.0) 06/04/23 17:30 Albumin/Globulin Ratio 1.1 (0.9-2) 06/04/23 17:30 Procalcitonin 0.91 ng/ml (0-0.5) H 06/04/23 17:30 Impressions Venous Doppler Study 06/04/23 15:04 ULTRASOUND LEFT LOWER EXTREMITY VENOUS CLINICAL HISTORY: Left leg pain and swelling. COMPARISON STUDY: Bilateral lower extremity venous ultrasound dated 12/08/2022. TECHNIQUE: Real-time, grayscale, and color Doppler sonography of the deep veins of the left lower extremity was performed from the inguinal crease to the calf. Compression and augmentation were utilized. FINDINGS: There is no sonographic evidence of deep venous thrombosis identified in the left lower extremity. The common femoral, superficial femoral, and popliteal veins are patent and normally compressible. The greater saphenous vein and the profunda femoris vein at the junction with the common femoral vein are clear. The visualized calf veins are patent. IMPRESSION: There is no sonographic evidence of deep venous thrombosis identified in the left lower extremity. ACT 112: Negative or not required by law. Electronically signed by: Jorge Simms M.D. 06/04/2023 4:59 PM Code Status & VTE Plan VTE Prophylaxis Plan VTE Prophylaxis will be ordered: Yes
[2023-06-05 00:29] LABS: Appearance Urine Clear (Clear); Bacteria Urine Automated Negative (Negative); Blood Urine Negative (Negative); Cast Urine Automated 0 /lpf (0-5); Color Urine Dark Yellow; Glucose Urine UA Negative (Negative); Ketones Urine 1+ (Negative); Leukocyte Esterase Urine 1+ (Negative); Nitrite Urine Negative (Negative); Protein Urine Negative (Negative); RBC Urine Automated 0-4 /hpf (0-4); Specific Gravity Urine 1.026 (1.000-1.030); Urobilinogen Urine Negative (Negative); pH Urine 5.5 (4.5-7.5)
[2023-06-05 00:32] LABS: Bilirubin Urine 1+ (Negative)
[2023-06-05] MEDS ORDERED: ACETAMINOPHEN 325 MG TAB PO PRN (02:08)
--- OUTSIDE RECORDS SUMMARY | 2023-06-05 02:13 | External Medical Summary | Summary of Care ---
Author Name Unknown Organization [facility] Address [address] [place] [address] Phone [phone] Care Team Providers Care Addictions Counselor Name Role Phone Ryan Leyva MD Primary Care Provider [phone] Reason for Visit * Reason Onset Date Comments Test Results 06/04/2023 pt is calling to get biopsy results (says the rash worsened) Encounter Details Date Type Department Care Team ([facility] Contact Info) Description 06/04/2023 Telephone Dermatology [facility] [address] [place] [address] Services, Scheduling [address] [place] [address] Test Results (pt is calling to get biopsy ... Allergies No known active allergiesdocumented as of this encounter (statuses as of 06/04/2023) Medications Medication Sig Dispensed Refills Start Date [...] goal of less than 7.0% ([facility]) TAKE 1 TABLET BY MOUTH EVERY MORNING 90 Tablet 0 01/26/2023 Active Pregabalin 50 MG Oral Capsule (Lyrica)Indications :History of drug abuse ([facility]) take 1 capsule by mouth in the [...] 10 MG Oral Tablet (Flexeril) 0 Active Triamcinolone Acetonide 0.1 % External Cream (Aristocort)Indicat ions:Rash and nonspecific skin eruption,Scald burn Apply topically to affected area 2 times a day. On left forearm and Rt thigh till better 45 g 1 05/21/2023 Active Clotrimazole-Betame thasone 1-0.05 % External Cream (Lotrisone) 0 05/25/2023 Active Silvadene 1 % External Cream Apply topically to affected area daily. 50 g 2 05/31/2023 Active Ciprofloxacin HCl 750 MG Oral Tablet (Cipro) Take 1 Tablet by mouth in the morning and 1 Tablet before bedtime. Do all this for 7 days. 14 Tablet 0 06/04/2023 06/11/2023 Active Hospital, Clinic, or Other Facility Administered [...] as of this encounter (statuses as of 06/04/2023) Active Problems Problem Noted Date Diagnosed Date [...] as of this encounter (statuses as of 06/04/2023) Resolved Problems Problem Noted Date Diagnosed Date [...] as of this encounter (statuses as of 06/04/2023) Immunizations Name Administration Dates Next Due COVID-19 [...] encounter Miscellaneous Notes * Telephone Encounter - Sandra Glass OSA - 06/04/2023 1:27 PM EST Delfina pt is calling to get biopsy results (he also says the rash worsened but he is calling for results) Please call pt at [phone] when results are ready. Thank you, ZEINA Venegas documented in this encounter Plan of Treatment Upcoming Encounters Date Type Department Care Team (Late st Contact Info) Description 06/11/2023 10:30 AM EST Office Visit Dermatology [place] [place] [address] [facility] [place] [address] Jason Bautista MD [address] [facility] [place] [address] 06/17/2023 10:20 AM EST Office Visit Podiatry [facility] [address] [place] [address] Suzanne Person, DPM [address] [place] [address] 07/02/2023 7:45 AM EST Office Visit Ophthalmology, [facility] [address] [facility] [place] [address] Burton Schroeder, DO [address] [place] [address] Health Maintenance Due Date Last Done Comments [...] Directives occurred with: Not Discussed Care Teams Addictions Counselor Relationship Specialty Start Date End Date Ryan eLyva MD [address] [place] [address] PCP - General Family Medicine 07/17/22 documented as of this encounter
--- OUTSIDE RECORDS SUMMARY | 2023-06-05 02:13 | External Medical Summary | Summary of Care ---
Author Name Unknown Organization [facility] Address [address] [place] [address] Phone [phone] Care Team Providers Care Incident Response Specialist Name Role Phone Ryan Leyva MD Primary Care Provider [phone] Reason for Visit * Reason Onset Date Comments Test Results 06/04/2023 pt is calling to get biopsy results (says the rash worsened) Encounter Details Date Type Department Care Team ([facility] Contact Info) Description 06/04/2023 Telephone Dermatology [facility] [address] [place] [address] Services, Scheduling [address] [place] [address] Test Results (pt is calling to get [...] A1c goal of less than 7.0% ([facility]) TAKE 1 TABLET BY MOUTH EVERY MORNING 90 Tablet 0 01/26/2023 Active Pregabalin 50 MG Oral Capsule (Lyrica)Indications :History of drug abuse ([facility]) take 1 capsule by mouth in the [...] encounter Miscellaneous Notes * Telephone Encounter - Heaven Sánchez LPN - 06/04/2023 2:37 PM EST Called patient to make him aware of change in antibiotic. Says he is at the hospital now, his left leg is so swollen he can hardly bend it, it's also very painful. He will update us on condition via phone or portal message. * Telephone Encounter - Sandra Glass OSA - 06/04/2023 1:27 PM EST sarabjit Mathis is calling to get biopsy results (he also says the rash worsened but he is calling for results) Please call pt at [phone] when results are ready. Thank you, ZEINA Venegas documented in this encounter Plan of Treatment Upcoming Encounters Date Type Department Care Team (Late st Contact Info) Description 06/11/2023 10:30 AM EST Office Visit Dermatology [facility] [address] [facility] [place] [address] Jason Bautista MD [address] [facility] [place] [address] 06/17/2023 10:20 AM EST Office Visit Podiatry [facility] [address] [facility] [place] [address] Suzanne Person, DPM [address] [facility] [place] [address] 07/02/2023 7:45 AM EST Office Visit Ophthalmology, [facility] [address] [facility] [place] [address] Burton Schroeder DO [address] [facility] [place] [address] Health Maintenance Due Date Last Done Comments [...] Directives occurred with: Not Discussed Care Teams Incident Response Specialist Relationship Specialty Start Date End Date Ryan Leyva MD [address] [place] [address] PCP - General Family Medicine 07/17/22 documented as of this encounter
[2023-06-05] MEDS: SODIUM CHLORIDE 0.9% 1,000 ML IV SCH ×2 (03:04→16:33)
[2023-06-05 04:08] LABS: Basophils # (auto) 0.03 K/uL (0.00-0.20); Basophils % (auto) 0.5 %; Eosinophils # (auto) 0.06 K/uL (0.00-0.50); Eosinophils % (auto) 0.9 %; Hematocrit (blood only) 53.8 % (42.0-52.0); Hemoglobin 16.2 g/dl (14.0-18.0); Immature Granulocytes # (auto) 0.11 K/uL (0.01-0.20); Immature Granulocytes % (auto) 1.7 %; Lymphocytes # (auto) 1.13 K/uL (1.20-3.40); Lymphocytes % (auto) 17.4 %; Mean Corpuscular Hemoglobin 26.3 pg (25.0-34.0); Mean Corpuscular Hgb Conc 30.1 g/dL (32.0-36.0); Mean Corpuscular Volume 87.3 fL (80.0-100.0); Mean Platelet Volume 8.7 fL (9.4-12.4); Monocytes # (auto) 1.01 K/uL (0.11-0.59); Monocytes % (auto) 15.6 %; Neutrophils # (auto) 4.15 K/uL (1.40-6.50); Neutrophils % (auto) 63.9 %; Platelet Count 136 K/uL (130-400); RDW Coefficient of Variation 20.1 % (11.5-14.5); RDW Standard Deviation 59.8 fL (36.4-46.3); Red Blood Count 6.16 M/uL (4.70-6.10); White Blood Count 6.49 K/ul (4.8-10.8)
[2023-06-05 04:19] LABS: BUN Creatinine Ratio 23.5 (10-20); Calcium 9.4 mg/dl (8.6-10.3); Creatinine Clr Calc Pharmacy 126.4 ml/min; Est GFR (African American) 129.8 ml/min; Magnesium 1.2 mg/dl (1.7-2.4)
[2023-06-05 04:38] LABS: Anisocytosis Present; Polychromasia 1+
[2023-06-05] MEDS ORDERED: CEFEPIME 2,000 MG/20 ML VIAL ONE ×2 (05:03→16:31)
[2023-06-05] MEDS: CEFEPIME 2,000 MG in SYRINGE 0 ML IV SCH ×2 (05:05→16:44)
[2023-06-05] MEDS: oxyCODONE HCL IR 5 MG TAB (IMMEDIATE RELEASE) PO PRN (05:28)
[2023-06-05] MEDS ORDERED: TACROLIMUS 1 MG CAP PO SCH (05:30)
[2023-06-05] MEDS: ENOXAPARIN INJ 40 MG/0.4 ML SYR SQ SCH (05:39)
--- NOTE | 2023-06-05 07:40 | CT Scan Report ---
CT tib/fib LT wo con HISTORY: 37 years-old Male LEFT LEG EDEMA. CELLULITIS. ANY ABSCESS. Acute pain and swelling of the l eft lower extremity COMPARISON: Duplex venous Doppler study 06/04/2023, left foot radiographs 10/19/2022. TECHNIQUE: Multiple axial CT images of the left tibia and fibula were obtained without the use of IV contrast. A dose lowering technique was used consistent with the principals of ALARA. FINDINGS: There is moderate diffuse subcutaneous edema with skin thickening. A few small cutaneous defects are noted within the lower leg. No discrete fluid collections. There is mild to moderate fatty atrophy of the musculature with intramuscular edema and arterial calcifications. Partially imaged bony fragment ation/erosions within the midfoot and hindfoot with periarticular debris. No acute fracture, dislocat ion or osseous erosion identified within the tibia or fibula. IMPRESSION: 1. Partially imaged finding suggestive of Charcot neuropathy within the hindfoot and midfoot. 2. Skin thickening with subcutaneous and deep tissue edema. Differential considerations would include cellulitis, venous stasis or lymphedema. 3. No fluid collections. 4. Age advanced arterial calcifications. ACT 112: Negative or not required by law. The above report was generated using voice recognition software. It may contain grammatical, syntax o r spelling errors. Electronically signed by: Luis Daniels M.D. 06/05/2023 7:38 AM
[2023-06-05] MEDS ORDERED: DEXTROSE 50% 50 ML SYRINGE IV PRN (07:47)
[2023-06-05] MEDS ORDERED: GLUCOSE 40% GEL 15 GM TUBE PO PRN (07:47)
[2023-06-05] MEDS ORDERED: GLUCAGON FOR INJ 1 MG VIAL SQ PRN (07:47)
[2023-06-05] MEDS ORDERED: CARBOHYDRATES FOR HYPOGLYCEMIA PO PRN (07:47)
[2023-06-05] MEDS ORDERED: GLUCOSE 10 TAB/TUBE PO PRN (07:47)
[2023-06-05] MEDS: ASPIRIN 325 MG ECTAB PO SCH (08:00)
[2023-06-05] MEDS: carvediloL 6.25 MG TAB PO SCH ×2 (08:01→20:16)
[2023-06-05] MEDS: MYCOPHENOLATE MOFETIL 250 MG CAP PO SCH ×2 (08:01→20:17)
[2023-06-05] MEDS: TACROLIMUS 1 MG CAP PO SCH ×2 (08:02→20:17)
[2023-06-05] MEDS: ROSUVASTATIN CALCIUM 10 MG TAB PO SCH (08:02)
[2023-06-05] MEDS: PREGABALIN 50 MG CAP PO SCH ×3 (08:04→20:16)
[2023-06-05] MEDS ORDERED: TACROLIMUS 1 MG PO SCH (09:00)
[2023-06-05] MEDS ORDERED: METHADONE ORAL SOLN 2 MG/ML PO SCH (09:00)
[2023-06-05] MEDS: METHADONE ORAL SOLN 2 MG/ML PO SCH (09:20)
[2023-06-05] MEDS ORDERED: MAGNESIUM OXIDE 400 MG TAB PO SCH (10:45)
[2023-06-05] MEDS: MAGNESIUM SULFATE / D5W 1 GM/100 ML BAG IV SCH ×2 (11:25→13:38)
--- NOTE | 2023-06-05 12:44 | Infectious Disease Consult ---
Date of Service June 05, 2023 Telehealth Information I performed this visit using a real-time telehealth connection between my location and the patients location ([facility]). After connecting through interactive tele-video, patient was identified by name and date of and/or wristband check.Patient (or authorized healthcare field marketing representative) was informed that this was a telemedicine visit and it was being conducted confidentially over secure lines. My office door was closed and no one else was present in the room with me.Patient (or authorized healthcare field marketing representative) provided consent to proceed with the visit, expressed an understanding of privacy and security of the telemedicine visit, and gave permission to have a hospital field marketing representative in the room in order to assist with the visit and to conduct portions of the visit, as needed. I informed the patient (or authorized healthcare field marketing representative) that I reviewed their record and presented the opportunity for them to ask any questions regarding the visit today. The patient agreed to participate. Assessment & Plan (1) Cellulitis of left leg: (2) Open leg wound: (3) Chronic venous insufficiency: (4) Skin rash: (5) Renal transplant recipient: (6) Pancreas transplant status: Plan - Enterobacter from a Lt knee swab (obtained by [facility] dermatology team) is not reliable and cellulitis is usually due strep/staph; therefore, I would recommend vancomycin along with cefepime for now. - I would really appreciate if the primary team would check with the radiologist whether there is any suspicion about Lt knee infection. The patient mentioned pain in his Lt knee, but the radiologist never commented on the Lt knee in the CT. - Given the depth of the venous stasis wound on the Rt leg (reaching down to the bone per patient report), I would recommend obtaining MRI of the RT leg. - Thank you for consulting ID. We will continue to follow. History of Present Illness History of Present Illness Mr. Jones is a 37-year-old man with medical history of type 1 diabetes (status post pancreas transplant 2 years ago), HTN, diabetic Charcot foot (ambulates wi th crutches), history of kidney transplant (at the same time of pancreas transplant), history of chronic hep C (treated), history of IV drug use (currently on methadone) and generalized anxiety disorder who was admitted to [facility] on 06/04 because of concerns for left lower extremity cellulitis. Per patient report, he started noticing swelling in his left leg around 1 day PTP which got progressively worse with a lot of pain. He did also report subjective fevers. He further added that he recently developed a rash (around 3 weeks ago). The rash was mainly involving his left arm but also elbows and knees with some blistering and skin peeling. He was seen by dermatology and a biopsy of the rash was performed outpatient with pending pathology. Culture, however, came back positive for Enterobacter cloacae. He have had bilateral chronic leg wounds (likely venous stasis ulcers) for months especially the one on the Rt leg and per patient, it's deep down to the bone. On presentation, he was afebrile, not tachycardic, normotensive and saturating 99% at room air. Doppler left lower extremity was negative for DVT and CT of the left lower extremity showed the chart could within the hind and midfoot along with skin thickening and subcutaneous and deep tissue edema. But no fluid collections. Initial blood workup showed no leukocytosis, blood hypoglycemia of around 59, elevated alk phos at 112 and elevated total bilirubin at 1.4. His UA showed 1-5 pyuria. ID team was consulted for further recommendations and to help with the management of possible Enterobacter cellulitis. Allergies Allergy/AdvReac Type Severity Reaction Status Date / Time No Known Drug Allergies Allergy Unknown Verified 01/18/23 11:20 Home Medications Medication Instructions Recorded Confirmed Type clonazepam 0.5 mg tablet 0.5 mg PO BID PRN Anxiety 11/03/18 06/04/23 History pregabalin 50 mg capsule (Lyrica) 50 mg PO TID #90 caps 03/14/21 06/04/23 Rx methadone 10 mg tablet 105 mg PO DAILY 10/20/22 06/04/23 History mycophenolate mofetil 250 mg 750 mg PO BID 10/20/22 06/04/23 History capsule rosuvastatin 10 mg tablet 10 mg PO DAILY 10/20/22 06/04/23 History sulfamethoxazole 400 1 tab PO .HOLD 10/20/22 06/04/23 History mg-trimethoprim 80 mg tablet carvedilol 6.25 mg tablet (Coreg) 6.25 mg PO BID #20 tabs 12/08/22 06/04/23 Rx aspirin 325 mg tablet 325 mg PO DAILY 12/19/22 06/04/23 History acetaminophen 500 mg tablet 1,000 mg PO Q6H PRN Pain 06/04/23 06/04/23 History (Tylenol Extra Strength) tacrolimus 1 mg capsule, 1 mg PO Q12H 06/05/23 06/05/23 History immediate-release Patient History Medical History (Updated 06/05/23 @ 13:55 by Naeem Lou MD) Critical illness polyneuropathy Pulmonary edema Hyperglycemia Fever Long-term exposure involving bird droppings Acute hypoxemic respiratory failure Current vaping on some days Anxiety Anemia Substance abuse End stage renal disease on dialysis due to type 1 diabetes mellitus History of seizure seizure-like activity 02/14/2019 in setting of severe hyperglycemia (patient states he missed dialysis/insulin dose), DKA, confusion- lifeflighted to [facility]/intubated/placed on ventilator. DKA managed with insulin drip on admission. EEG with no seizure activity noted. Neurology consulted and initially started patient on prophylactic Keppra but suspected seizure was complication of hyperglycemia and recommended weaning off anticonvulsants/advised no further neurology workup needed. Per patient, medication/dialysis compliance since discharge with glucoses in the range on 100's-200's on self-checks. Peritonitis currently on intraperitoneal abx Hepatitis C Gastroparesis Withdrawal from opioids Diabetic retinopathy of both eyes Nephrotic syndrome Diabetes mellitus type I Hypertension Surgical History (Updated 06/05/23 @ 13:54 by Naeem Lou MD) Pancreas transplant status Renal transplant recipient H/O eye surgery Hx of tonsillectomy Hx of tooth extraction Hx of vitrectomy B/L; right vitrectomy: 05/26/18: LMA#5 [place] [facility] [place]itoneal dialysis catheter in place Family History Grandfather (Maternal) Diabetes Grandfather (Paternal) Diabetes Grandmother (Paternal) Diabetes Grandmother (Maternal) Diabetes Aunt Diabetes Uncle Diabetes Father Hypertension Brother Hypertension Social History Smoking Status: Never smoker Tobacco Type: Cigarettes Second Hand Exposure: No; Do You Dip or Chew Tobacco: Yes; Hx Alcohol Use: Yes Hx Substance Use: No Preferred Language: Moldovan Communication Ability: Effective Communication Ability Comment: sedated, arouses easily Visual Impairment: Severely Limited Hearing Ability: Normal Metallurgist Process Required: No Beliefs That Will Affect Care: None Current Living Situation: Alone Current Living Situation Comment: aide help throughout the week current occupational status: employed and unemployed Feels Safe at Home: Yes Childhood Exposure to Second-Hand Smoke: No Diet: regular Diet Comment: diabetic caffeine: Yes during the past year weight has: other Dental Care, Regularly: Yes Physical Activity Frequency: Daily Seatbelt Use: always Sunscreen Use: Yes Assistive Devices: Crutches Review of Systems Constitutional: No fever or chills HEENT: no sore throat, no nasal discharge Cardiovascular: no chest pain, or palpitations Respiratory: no shortness of breath, no cough Gastrointestinal: No nausea, vomiting, diarrhea or abdominal pain : No dysuria or hesitancy, no urinary discharge Musculoskeletal/Skin: Left leg pain and swelling from the foot to above the knee. Chronic bilateral legs wounds (mainly on the Rt) Neurologic: no dizziness, headache or neck stiffness Physical Exam Couldn't be obtained as the consult was performed via telemed. Results & Data Vital Signs (Past 12 Hours) Vital Signs Pulse Pulse Resp BP Pulse Ox O2 Del Method O2 Flow Rate 06/05/23 08:00 84 19 176/88 H 94 Room Air 06/05/23 07:27 85 06/05/23 07:00 85 23 137/73 96 Room Air 06/05/23 06:05 88 14 134/81 93 Room Air 06/05/23 05:15 84 06/05/23 04:18 86 18 181/116 H 98 Nasal Cannula 4 06/05/23 02:31 85 16 149/90 H 96 Nasal Cannula 2 06/05/23 02:00 81 15 135/67 95 Nasal Cannula 2 06/05/23 01:41 83 14 138/81 92 Room Air Laboratory Results 05/31: swab Left knee wound growing Enterobacter 06/04: 2 sets of blood Cx negative to date Diagnostic Findings CT LLE on 06/04: 1. Partially imaged finding suggestive of Charcot neuropathy within the hindfoot and midfoot. 2. Skin thickening with subcutaneous and deep tissue edema. Differential considerations would include cellulitis, venous stasis or lymphedema. 3. No fluid collections. 4. Age advanced arterial calcifications. (2) Open leg wound Encounter type: initial encounter Laterality: bilateral Qualified Code(s): S81.801A - Unspecified open wound, right lower leg, initial encounter; S81.712A - Unspecified open wound, left lower leg, initial encounter
--- NOTE | 2023-06-05 14:19 | Hospitalist Progress Note ---
Date of Service June 05, 2023 Assessment & Plan (1) Cellulitis of left leg: Plan: 37-year-old male with past med significant for diabetic Charcot foot, patient is supposed to be on wheelchair but currently using crutches to walk short distances, hypertension history of type 1 diabetes status post pancreas transplant, s/p kidney transplant, hepatitis C virus infection cured after antibiotic viral drug therapy, generalized anxiety disorder, history of drug abuse, on methadone lives alone comes because of left lower extremity cellulitis. Cellulitis of left leg Doppler is negative Received Rocephin in the ER Will continue with IV cefepime CT of left lower extremity-concern for cellulitis, venous stasis or lymphedema. Per radiology, no concern for osteo of the knee ID consult- appreciate recs -Vanc added to Cefepime -MRI RLE ordered Skin rash Affecting extremities and lower abdomen and groin With some skin peeling Recently saw dermatology Holding Bactrim Cultures growing Enterobacter cloacae complex which is resistant to cefoxitin, gentamicin, tobramycin and Bactrim. Intermediate to Levaquin. Sensitive to ciprofloxacin, cefepime and Zosyn Placed on on cefepime. ID consult- appreciate recs -Vanc added to Cefepime -MRI RLE ordered S/p renal transplant S/p pancreas transplant Continue transplant medications Bactrim currently held Chronic pain Continues home methadone Hyperlipidemia On statin Hypertension on Coreg DVT prophylaxis: Lovenox Disposition:Medical floor Full code Admission and Anticipated Discharge Date Admission Date: June 05, 2023 Subjective Pt seen with sister at bedside. States that lesions were painful. Otherwise denied acute concerns. Review of Systems Review of Systems: All systems reviewed & are unremarkable except as noted in Subjective Physical Exam Physical Exam: General: Alert, oriented. No acute distress Skin: erythematous lesion on LLE and LUE Psych: Appropriate mood and affect Neuro: difficulty with movements HEENT: NC/AT Chest: Nontender to palpation. CV: RRR Resp: no increased effort of breathing Abdomen:. Soft, nontender, nondistended.. Extremities: erythematous lesion on LLE and LUE Results & Data Results & Data Vital Signs (Past 12 Hours) Vital Signs Pulse Pulse Resp BP Pulse Ox O2 Del Method O2 Flow Rate 06/05/23 08:00 84 19 176/88 H 94 Room Air 06/05/23 07:27 85 06/05/23 07:00 85 23 137/73 96 Room Air 06/05/23 06:05 88 14 134/81 93 Room Air 06/05/23 05:15 84 06/05/23 04:18 86 18 181/116 H 98 Nasal Cannula 4 06/05/23 02:31 85 16 149/90 H 96 Nasal Cannula 2
[2023-06-05] MEDS ORDERED: VANCOMYCIN CONSULT ACTIVE PRN ×2 (15:31→15:32)
[2023-06-05] MEDS ORDERED: VANCOMYCIN HCL 2,000 MG in SODIUM CHLORIDE 0.9% 500 ML IV ONE (16:00)
[2023-06-05 16:18] LABS: A calco-baum cmplx NotReported Not Detected (NotDetected); Bact fragilis Not Reported Not Detected (NotDetected); Blood Culture Id Panel See PCR Comment (NotDetected); C auris Not Reported Not Detected (NotDetected); Calbicans Not Reported Not Detected (NotDetected); Candida glabrata Not Reported Not Detected (NotDetected); Candida krusei Not Reported Not Detected (NotDetected); Cneoformans/gatti Not Reported Not Detected (NotDetected); Cparapsilosis Not Reported Not Detected (NotDetected); E cloacae compx Not Reported Not Detected (NotDetected); Efaecalis Not Reported Not Detected (NotDetected); Efaecium Not Reported Not Detected (NotDetected); Enterobacterales Not Reported Not Detected (NotDetected); Escherichia coli Not Reported Not Detected (NotDetected); H influenzae Not Reported Not Detected (NotDetected); K aerogenes Not Reported Not Detected (NotDetected); Koxytoca Not Reported Not Detected (NotDetected); Kpneumoniae grp Not Reported Not Detected (NotDetected); Lmonocyt Not Reported Not Detected (NotDetected); N meningitidis Not Reported Not Detected (NotDetected); P aeruginosa Not Reported Not Detected (NotDetected); Proteus spp Not Reported Not Detected (NotDetected); Salmonella spp Not Reported Not Detected (NotDetected); Smarcescens Not Reported Not Detected (NotDetected); Staph lugdunensis Not Reported Not Detected (NotDetected); Staph spp. Not Reported DETECTED (NotDetected); Staphaureus Not Reported Not Detected (NotDetected); Staphepi Not Reported DETECTED (NotDetected); Stenmaltophilia Not Reported Not Detected (NotDetected); Strep agal(GrpB) Not Reported Not Detected (NotDetected); Strep pneum Not Reported Not Detected (NotDetected); Strep pyog (GrpA) Not Reported Not Detected (NotDetected); Strep spp Not Reported Not Detected (NotDetected)
[2023-06-05 16:34] LABS: mecAC Resistant Gene DETECTED (NotDetected)
[2023-06-05 16:35] LABS: Staphylococcus epidermidis DETECTED (NotDetected); Staphylococcus spp. DETECTED (NotDetected)
[2023-06-05] MEDS: clonazePAM 0.5 MG TAB PO PRN (20:24)
[2023-06-06] MEDS ORDERED: VANCOMYCIN HCL 1,250 MG in SODIUM CHLORIDE 0.9% 250 ML IV SCH
[2023-06-06] MEDS: oxyCODONE HCL IR 5 MG TAB (IMMEDIATE RELEASE) PO PRN ×2 (00:09→23:46)
--- NOTE | 2023-06-06 00:41 | Magnetic Resonance Report ---
Exam(s): MRI EXTREMITY Without Contrast EXAM: MR Left Lower Extremity Without Intravenous Contrast, Tibia and Fibula CLINICAL HISTORY: Reason for exam: r/o osteomyelitis. TECHNIQUE: Multiplanar magnetic resonance images of the left tibia and fibula without intravenous contrast. COMPARISON: CT left tibia-fibula, 06/05/23 FINDINGS: There is circumferential subcutaneous edema of the leg suggesting cellulitis. There is no evidence of deep fascial edema. There are no fluid collections. There is mild fatty atrophy of the calf musculature. There are no bone marrow signal abnormalities to suggest osteomyelitis. There are no acute fractures. IMPRESSION: Cellulitis. No evidence of osteomyelitis. Electronically signed by: Greg Varela M.D. 06/06/23 00:40 AM
[2023-06-06] MEDS: CEFEPIME 2,000 MG in SYRINGE 0 ML IV SCH ×2 (05:07→15:45)
[2023-06-06] MEDS: ENOXAPARIN INJ 40 MG/0.4 ML SYR SQ SCH (05:08)
[2023-06-06 07:04] LABS: Basophils # (auto) 0.02 K/uL (0.00-0.20); Basophils % (auto) 0.4 %; Eosinophils # (auto) 0.04 K/uL (0.00-0.50); Eosinophils % (auto) 0.7 %; Hematocrit (blood only) 57.5 % (42.0-52.0); Hemoglobin 16.8 g/dl (14.0-18.0); Immature Granulocytes % (auto) 1.9 %; Lymphocytes # (auto) 1.27 K/uL (1.20-3.40); Lymphocytes % (auto) 23.7 %; Mean Corpuscular Hgb Conc 29.2 g/dL (32.0-36.0); Mean Platelet Volume 8.2 fL (9.4-12.4); Monocytes # (auto) 0.95 K/uL (0.11-0.59); Monocytes % (auto) 17.7 %; Neutrophils # (auto) 2.98 K/uL (1.40-6.50); Neutrophils % (auto) 55.6 %; Platelet Count 150 K/uL (130-400); RDW Standard Deviation 61.1 fL (36.4-46.3); Red Blood Count 6.46 M/uL (4.70-6.10); White Blood Count 5.36 K/ul (4.8-10.8)
[2023-06-06 07:26] LABS: Albumin Globulin Ratio 1.1 (0.9-2); Calcium 8.9 mg/dl (8.6-10.3); Est GFR (African American) 130.4 ml/min; Est GFR (Non-African American) 112.5 ml/min; Globulin 2.8 gm/dl (2.5-4.0); Magnesium 1.5 mg/dl (1.7-2.4); Phosphorus 2.7 mg/dl (2.5-4.9); Potassium 4.5 mmol/L (3.5-5.1); Total Protein 5.8 gm/dl (6.0-8.3)
[2023-06-06] MEDS: ROSUVASTATIN CALCIUM 10 MG TAB PO SCH (08:43)
[2023-06-06] MEDS: ASPIRIN 325 MG ECTAB PO SCH (08:43)
[2023-06-06] MEDS: TACROLIMUS 1 MG CAP PO SCH ×2 (08:43→21:12)
[2023-06-06] MEDS: carvediloL 6.25 MG TAB PO SCH ×2 (08:43→21:12)
[2023-06-06] MEDS: MYCOPHENOLATE MOFETIL 250 MG CAP PO SCH ×2 (08:44→21:13)
[2023-06-06] MEDS: VANCOMYCIN HCL 1,000 MG in SODIUM CHLORIDE 0.9% 250 ML IV SCH ×3 (08:46→23:43)
[2023-06-06] MEDS: PREGABALIN 50 MG CAP PO SCH ×3 (08:50→21:15)
[2023-06-06] MEDS: METHADONE ORAL SOLN 2 MG/ML PO SCH (09:17)
[2023-06-06] MEDS: PATIENT'S OWN CONTROLLED MED 2 PO SCH (09:17)
--- NOTE | 2023-06-06 09:41 | Pharmacy Report ---
Pharmacy PK ABX Note - Date of Service June 06, 2023 - Assessment and Plan Assessment 37 year old M receiving empiric vancomycin and cefepime for treatment of LLE cellulitis. Pertinent PMH includes T1DM due to pancreas transplant, s/p kidney transplant, hx of IV drug abuse. Patient on immunosuppressive therapy w/ mycophenolate and tacrolimus. Infectious diseases consulted and recommending vancomycin/cefepime at this time. Pertinent microbiologic data includes: 1 of 2 blood cultures growing gram- positive cocci clusters. Biofire reveals Staphylococcus epidermidis (methicillin-resistant), possible contaminant? Lower extremity MRI shows no ev idence of osteomyelitis. Per ID note, left knee culture obtained by [facility] dermatology team and is growing Enterobacter. However, this is not believed to be reliable. Day # 2 of antimicrobial therapy. Plan Vancomycin * Loading dose: 2000 mg IV x 1 * Maintenance dose: 1000 mg IV every 8 hours * Regimen is predicted to achieve target AUC/TU of 400-600 mg/L.hr * Trough level ordered for: 06/07/23 Cefepime * 2 g IV q12h - appropriately dosed for indication Pharmacy will continue to follow and will adjust dose/frequency as necessary. Thank you. Pharmacy has transitioned to AUC monitoring for vancomycin. AUC/TU is the preferred PK/PD target and is associated with decreased risk of nephrotoxicity compared to traditional trough targets.
[2023-06-06] MEDS: MAGNESIUM SULFATE / D5W 1 GM/100 ML BAG IV SCH ×2 (10:02→11:54)
[2023-06-06] MEDS: MAGNESIUM OXIDE 400 MG TAB PO SCH ×2 (13:36→17:23)
--- NOTE | 2023-06-06 16:55 | Hospitalist Progress Note ---
Date of Service June 06, 2023 Assessment & Plan (1) Cellulitis of left leg: Plan: 37-year-old male with past med significant for diabetic Charcot foot, patient is supposed to be on wheelchair but currently using crutches to walk short distances, hypertension history of type 1 diabetes status post pancreas transplant, s/p kidney transplant, hepatitis C virus infection cured after antibiotic viral drug therapy, generalized anxiety disorder, history of drug abuse, on methadone lives alone comes because of left lower extremity cellulitis. Cellulitis of left leg Doppler is negative for DVT CT of left lower extremity-concern for cellulitis, venous stasis or lymphedema MRI RLE ordered consistent with cellulitis, no evidence of osteomyelitis Will continue with IV cefepime and added vanco per ID recommendation Routine urology consult given scrotal swelling and pain in setting of cellulitis Skin rash Affecting extremities and lower abdomen and groin Recently saw dermatology - discussed outpatient skin biopsy/path resulting today from 05/[address] 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 However the history and clinical images have been reviewed and in this case suggests neck or lytic acral erythema associated with hepatitis C" Per patient, ? underwent Hep C treatment in 2019 but difficulty finding in records, clarifying with patient Per discussion with Dr. Bautista as well as Dr. Lou from ID - ordered Hep C RNA with quant, viral hepatitis panel, zinc and cryoglobulin Renal function, hemoglobin remain at baseline. LFTs normal Holding Bactrim (outpatient culture resistant to Bactrim) No additional dermatologic treatment, per Dr. Bautista. Continue wound care as is Cultures growing Enterobacter cloacae complex which is resistant to cefoxitin, gentamicin, tobramycin and Bactrim. Intermediate to Levaquin. Sensitive to ciprofloxacin, cefepime and Zosyn Placed on on cefepime, added vanco per ID rec Prelim blood culture growing 1/2 coag neg staph not lugdunensis S/p renal transplant S/p pancreas transplant Continue transplant medications Bactrim currently held Chronic pain Continues home methadone Hyperlipidemia On statin Hypertension on Coreg DVT prophylaxis: Lovenox Disposition:Medical floor Full code Patient seen in collaboration with Dr. Brewer. Please see addendum. Prolonged care: 15 min spent coordinating care with multiple specialists and obtaining additional PMH with patient. Admission and Anticipated Discharge Date Admission Date: June 05, 2023 Supervising Physician Co-Signing Physician Notes Pt seen and examined by myself, Nena Brewer MD on the day of service. Care was coordinated with Cherie Multani PA-C 37yoM admitted with cellulitis of both lower extremities L>R. Also scrotal swelling. Cellulitis improving as well as scrotal erythema with IV Cefepime and vanc. Concern for Hep C related dermal changes vs. nutritional deficiencies per discussion with Derm. ID followup for further recommendations, consider reaching out to pt's transplant team. Otherwise as above. Subjective Seen and examined in 381-1 with sister at bedside. Endorsing discomfort of LLE and L forearm similar to yesterday. Also experiencing LLE and scrotal swelling that makes movement painful. No acute complaints overnight. No F/C, lightheadedness, CP, SOB, N/V, abd pain, dysuria, diarrhea or constipation. Review of Systems Review of Systems: At least ten systems reviewed and negative except as noted in the HPI. Physical Exam Physical Exam: Gen: WD/WN, NAD, laying in bed, A&Ox3 HEENT: Normocephalic, atraumatic, conjunctivae moist, sclerae anicteric, mucous membranes moist Lung: Clear to Auscultation bilaterally, no wheezes/rales/rhonchi Heart: Regular rate, regular rhythm, no murmurs, rubs, or gallops Abdomen: Soft, NT, ND +BS x 4 Extremities: LLE edema in setting of cellulitis extending to scrotum Skin: Warm, + pink/red plaques with ulcerations and hemorrhagic bullae on L forearm, knees, LLE with extension to scrotum Results & Data Results & Data Vital Signs (Past 12 Hours) Vital Signs Temp Pulse Resp BP Pulse Ox O2 Del Method 06/06/23 15:33 36.5 C 79 16 159/96 H 95 Room Air 06/06/23 09:00 Room Air 06/06/23 08:56 36.7 C 82 16 148/83 H 95 Room Air Laboratory Results Short CBC 06/06/23 Range/Units 06:31 WBC 5.36 (4.8-10.8) K/ul Hgb 16.8 (14.0-18.0) g/dl Hct 57.5 H (42.0-52.0) % Plt Count 150 (130-400) K/uL BMP 06/06/23 06:31 Sodium 137 Potassium 4.5 Chloride 106 Carbon Dioxide 25 BUN 16 Creatinine 0.80 Glucose 67 L Calcium 8.9 Liver Function 06/06/23 Range/Units 06:31 Total Bilirubin 1.0 (0.2-1.0) mg/dl AST 26 (13-39) U/L ALT 18 (7-52) U/L Alkaline Phosphatase 90 (34-104) U/L Albumin 3.0 L (3.4-5.0) gm/dl Diagnostic Findings Venous Doppler Study 06/04/23 15:04 ULTRASOUND LEFT LOWER EXTREMITY VENOUS CLINICAL HISTORY: Left leg pain and swelling. COMPARISON STUDY: Bilateral lower extremity venous ultrasound dated 12/08/2022. TECHNIQUE: Real-time, grayscale, and color Doppler sonography of the deep veins of the left lower extremity was performed from the inguinal crease to the calf. Compression and augmentation were utilized. FINDINGS: There is no sonographic evidence of deep venous thrombosis identified in the left lower extremity. The common femoral, superficial femoral, and popliteal veins are patent and normally compressible. The greater saphenous vein and the profunda femoris vein at the junction with the common femoral vein are clear. The visualized calf veins are patent. IMPRESSION: There is no sonographic evidence of deep venous thrombosis claudette ntified in the left lower extremity. ACT 112: Negative or not required by law. Electronically signed by: Jorge Simms M.D. 06/04/2023 4:[address] 06/05/23 05:47 CT tib/fib LT wo con HISTORY: 37 years-old Male LEFT LEG EDEMA. CELLULITIS. ANY ABSCESS. Acute pain and swelling of the left lower extremity COMPARISON: Duplex venous Doppler study 06/04/2023, left foot radiographs 10/19/2022. TECHNIQUE: Multiple axial CT images of the left tibia and fibula were obtained without the use of IV contrast. A dose lowering technique was used consistent with the principals of RENETTA. FINDINGS: There is moderate diffuse subcutaneous edema with skin thickening. A few small cutaneous defects are noted within the lower leg. No discrete fluid collections. There is mild to moderate fatty atrophy of the musculature with intramuscular edema and arterial calcifications. Partially imaged bony fragmentation/erosions within the midfoot and hindfoot with periarticular debris. No acute fracture, dislocation or osseous erosion identified within the tibia or fibula. IMPRESSION: 1. Partially imaged finding suggestive of Charcot neuropathy within the hindfoot and midfoot. 2. Skin thickening with subcutaneous and deep tissue edema. Differential considerations would include cellulitis, venous stasis or lymphedema. 3. No fluid collections. 4. Age advanced arterial calcifications. ACT 112: Negative or not required by law. The above report was generated using voice recognition software. It may contain grammatical, syntax or spelling errors. Electronically signed by: Luis Daniels M.D. 06/05/2023 7:38 AM Lower Extremity MRI 06/05/23 15:27 Exam(s): MRI EXTREMITY Without Contrast EXAM: MR Left Lower Extremity Without Intravenous Contrast, Tibia and Fibula CLINICAL HISTORY: Reason for exam: r/o osteomyelitis. TECHNIQUE: Multiplanar magnetic resonance images of the left tibia and fibula without intravenous contrast. COMPARISON: CT left tibia-fibula, 06/05/23 FINDINGS: There is circumferential subcutaneous edema of the leg suggesting cellulitis. There is no evidence of deep fascial edema. There are no fluid collections. There is mild fatty atrophy of the calf musculature. There are no bone marrow signal abnormalities to suggest osteomyelitis. There are no acute fractures. IMPRESSION: Cellulitis. No evidence of osteomyelitis. Electronically signed by: Greg Varela M.D. 06/06/23 00:40 AM
[2023-06-06] MEDS: clonazePAM 0.5 MG TAB PO PRN (21:15)
[2023-06-07] MEDS: ENOXAPARIN INJ 40 MG/0.4 ML SYR SQ SCH (04:29)
[2023-06-07] MEDS: CEFEPIME 2,000 MG in SYRINGE 0 ML IV SCH ×2 (04:29→16:35)
[2023-06-07] MEDS ORDERED: VANCOMYCIN LEVEL ONE (07:30)
[2023-06-07] MEDS: clonazePAM 0.5 MG TAB PO PRN ×2 (08:47→20:17)
[2023-06-07] MEDS: PREGABALIN 50 MG CAP PO SCH ×3 (08:47→20:17)
[2023-06-07] MEDS: VANCOMYCIN HCL 1,000 MG in SODIUM CHLORIDE 0.9% 250 ML IV SCH (08:47)
[2023-06-07] MEDS: carvediloL 6.25 MG TAB PO SCH ×2 (08:48→20:18)
[2023-06-07] MEDS: MYCOPHENOLATE MOFETIL 250 MG CAP PO SCH ×2 (08:48→20:18)
[2023-06-07] MEDS: TACROLIMUS 1 MG CAP PO SCH ×2 (08:48→20:17)
[2023-06-07] MEDS: ASPIRIN 325 MG ECTAB PO SCH (08:49)
[2023-06-07] MEDS: ROSUVASTATIN CALCIUM 10 MG TAB PO SCH (08:49)
[2023-06-07] MEDS: PATIENT'S OWN CONTROLLED MED 2 PO SCH (08:54)
[2023-06-07] MEDS: METHADONE ORAL SOLN 2 MG/ML PO SCH (08:54)
[2023-06-07 09:03] LABS: Basophils # (auto) 0.02 K/uL (0.00-0.20); Basophils % (auto) 0.4 %; Eosinophils # (auto) 0.05 K/uL (0.00-0.50); Eosinophils % (auto) 0.9 %; Hematocrit (blood only) 56.3 % (42.0-52.0); Hemoglobin 16.8 g/dl (14.0-18.0); Immature Granulocytes # (auto) 0.08 K/uL (0.01-0.20); Immature Granulocytes % (auto) 1.4 %; Lymphocytes # (auto) 1.19 K/uL (1.20-3.40); Lymphocytes % (auto) 20.9 %; Mean Corpuscular Hemoglobin 26.1 pg (25.0-34.0); Mean Corpuscular Hgb Conc 29.8 g/dL (32.0-36.0); Mean Corpuscular Volume 87.4 fL (80.0-100.0); Mean Platelet Volume 8.1 fL (9.4-12.4); Monocytes # (auto) 0.96 K/uL (0.11-0.59); Monocytes % (auto) 16.8 %; Neutrophils % (auto) 59.6 %; Platelet Count 164 K/uL (130-400); RDW Coefficient of Variation 19.8 % (11.5-14.5); RDW Standard Deviation 58.6 fL (36.4-46.3); Red Blood Count 6.44 M/uL (4.70-6.10)
[2023-06-07 09:16] LABS: Albumin Globulin Ratio 1.1 (0.9-2); BUN Creatinine Ratio 15.7 (10-20); Creatinine Clr Calc Pharmacy 123.4 ml/min; Est GFR (African American) 128.5 ml/min; Est GFR (Non-African American) 110.8 ml/min; Globulin 2.8 gm/dl (2.5-4.0); Magnesium 1.4 mg/dl (1.7-2.4); Phosphorus 2.6 mg/dl (2.5-4.9); Total Protein 5.8 gm/dl (6.0-8.3)
--- NOTE | 2023-06-07 10:22 | Pharmacy Report ---
Pharmacy PK ABX Note - Date of Service June 07, 2023 - Assessment and Plan Assessment 37 year old M receiving empiric vancomycin and cefepime for treatment of LLE cellulitis. Pertinent PMH includes T1DM due to pancreas transplant, s/p kidney transplant, hx of IV drug abuse. Patient on immunosuppressive therapy w/ mycophenolate and tacrolimus. Infectious diseases consulted and recommending vancomycin/cefepime at this time. Pertinent microbiologic data includes: 1 of 2 blood cultures growing gram- positive cocci clusters. Biofire reveals Staphylococcus epidermidis (methicillin-resistant), possible contaminant? Lower extremity MRI shows no ev idence of osteomyelitis. Per ID note, left knee culture obtained by [facility] dermatology team and is growing Enterobacter. However, this is not believed to be reliable. Day # 3 of antimicrobial therapy. Continuing Vanc + Cefepime from cellulitis standpoint, no concern for bacteremia at this time. Plan Vancomycin * Current regimen: 1000 mg IV every 8 hours * Trough level obtained 06/07/23 resulted as 16.3 mcg/mL. This is predicted to achieve target AUC/TU of GREATER THAN 400-600 mg/L.hr * Change to 1250 mg IV every 12 hours * Repeat trough level ordered for: 06/09/23 Cefepime * 2 g IV q12h - appropriately dosed for indication Pharmacy will continue to follow and will adjust dose/frequency as necessary. Thank you. Pharmacy has transitioned to AUC monitoring for vancomycin. AUC/TU is the preferred PK/PD target and is associated with decreased risk of nephrotoxicity compared to traditional trough targets.
[2023-06-07] MEDS: MAGNESIUM SULFATE / D5W 1 GM/100 ML BAG IV SCH ×2 (10:31→12:31)
--- NOTE | 2023-06-07 14:24 | Urology Consultation ---
Date of Consultation June 07, 2023 Assessment & Plan (1) Scrotal edema: (2) Skin rash: Plan 37-year-old male admitted with lower extremity cellulitis and skin rash. Urology asked to evaluate patient due to scrotal edema and pain in the setting of lower extremity cellulitis. He is afebrile and hemodynamically stable. Labs show no leukocytosis and normal renal function. Prelim blood culture growing 1/2 coag neg staph not lugdunensis, On cefepime and vanco. Infectious disease consulted. Pt reports an improvement in scrotal edema since admission. Mild scrotal erythema noted without significant edema on exam today. Continue to monitor. Can consider scrotal ultrasound with any worsening edema/pain. Also recommend conservative management with scrotal elevation and ice as needed. Pt with known skin rash affecting extremities, lower abdomen and groin/scrotum. Has been evaluated by Dermatology. Was utilizing topical antifungal and Vaseline to scrotum as outpatient per his report. Recommend continue with wound care management and follow-up with Dermatology. Continue supportive care and antibiotic therapy. No acute urological intervention necessary. will sign-off. Please call with any questions, concerns, or changes in patient status. Plan of care reviewed Dr. Iraheta, on-call urologist. Supervising Physician Co-Signing Physician Notes Discussed patient with TIERNEY. Agree with plan. It appears that his issues with his scrotum are in relation to his cellulitis of the leg. No acute urologic intervention necessary. Reach out to our service if scrotum acutely worsens History of Present Illness Attending Physician: Nena Brewer MD History of Present Illness 37-year-old man with medical history of type 1 diabetes (status post pancreas transplant 2 years ago), HTN, diabetic Charcot foot (ambulates with crutches), history of kidney transplant, history of hep C, history of IV drug use (currently on methadone) and generalized anxiety disorder who was admitted to [facility] on 06/04/23 for left lower extremity cellulitis and skin rash. Per chart review, patient with known skin rash recently seen by dermatology and had skin biopsy. Urology asked to evaluate patient due to scrotal edema and pain in the setting of cellulitis. Patient was seen and examined at bedside this afternoon. Awake, resting in bed on arrival. No acute distress. Patient reports scrotal edema and pain. States the swelling has significantly improved since his arrival to the hospital. He also reports a rash/dry skin on his scrotum, had been applying a topical antifungal and Vaseline at home. Has rash to extremities and lower abdomen/groin area as well. He has been following with dermatology and had recent skin biopsy. Denies fevers, chills, nausea, vomiting. Voiding without issue. Denies hematuria or dysuria. History of renal transplant, follows with transplant team in [place]. Allergies Allergy/AdvReac Type Severity Reaction Status Date / Time No Known Drug Allergies Allergy Unknown Verified 01/18/23 11:20 sulfamethoxazole Allergy Rash Verified 06/05/23 22:50 [From Bactrim] trimethoprim [From Bactrim] Allergy Rash Verified 06/05/23 22:50 Home Medications Medication Instructions Recorded Confirmed Type clonazepam 0.5 mg tablet 0.5 mg PO BID PRN Anxiety 11/03/18 06/04/23 History pregabalin 50 mg capsule (Lyrica) 50 mg PO TID #90 caps 03/14/21 06/04/23 Rx methadone 10 mg tablet 105 mg PO DAILY 10/20/22 06/04/23 History mycophenolate mofetil 250 mg 750 mg PO BID 10/20/22 06/04/23 History capsule rosuvastatin 10 mg tablet 10 mg PO DAILY 10/20/22 06/04/23 History sulfamethoxazole 400 1 tab PO .HOLD 10/20/22 06/04/23 History mg-trimethoprim 80 mg tablet carvedilol 6.25 mg tablet (Coreg) 6.25 mg PO BID #20 tabs 12/08/22 06/04/23 Rx aspirin 325 mg tablet 325 mg PO DAILY 12/19/22 06/04/23 History acetaminophen 500 mg tablet 1,000 mg PO Q6H PRN Pain 06/04/23 06/04/23 History (Tylenol Extra Strength) tacrolimus 1 mg capsule, 1 mg PO Q12H 06/05/23 06/05/23 History immediate-release Patient History Medical History (Updated 06/07/23 @ 16:00 by PIPER Godinez) Critical illness polyneuropathy Pulmonary edema Hyperglycemia Fever Long-term exposure involving bird droppings Acute hypoxemic respiratory failure Current vaping on some days Anxiety Anemia Substance abuse End stage renal disease on dialysis due to type 1 diabetes mellitus History of seizure seizure-like activity 02/14/2019 in setting of severe hyperglycemia (patient states he missed dialysis/insulin dose), DKA, confusion- lifeflighted to [place]/intubated/placed on ventilator. DKA managed with insulin drip on admission. EEG with no seizure activity noted. Neurology consulted and initially started patient on prophylactic Keppra but suspected seizure was complication of hyperglycemia and recommended weaning off anticonvulsants/advised no further neurology workup needed. Per patient, medication/dialysis compliance since discharge with glucoses in the range on 100's-200's on self-checks. Peritonitis currently on intraperitoneal abx Hepatitis C Gastroparesis Withdrawal from opioids Diabetic retinopathy of both eyes Nephrotic syndrome Diabetes mellitus type I Hypertension Surgical History (Updated 06/05/23 @ 13:54 by Naeem Lou MD) Pancreas transplant status Renal transplant recipient H/O eye surgery Hx of tonsillectomy Hx of tooth extraction Hx of vitrectomy B/L; right vitrectomy: 05/26/18: LMA#5 at [facility] [place] Peritoneal dialysis catheter in place Family History Grandfather (Maternal) Diabetes Grandfather (Paternal) Diabetes Grandmother (Paternal) Diabetes Grandmother (Maternal) Diabetes Aunt Diabetes Uncle Diabetes Father Hypertension Brother Hypertension Social History Smoking Status: Never smoker Tobacco Type: Cigarettes Second Hand Exposure: No; Do You Dip or Chew Tobacco: Yes; Hx Alcohol Use: Yes Hx Substance Use: No Preferred Language: Kyrgyz Communication Ability: Effective Communication Ability Comment: sedated, arouses easily Visual Impairment: Severely Limited Hearing Ability: Normal Janitor Required: No Beliefs That Will Affect Care: None Current Living Situation: Alone Current Living Situation Comment: aide help throughout the week current occupational status: employed and unemployed Feels Safe at Home: Yes Childhood Exposure to Second-Hand Smoke: No Diet: regular Diet Comment: diabetic caffeine: Yes during the past year weight has: other Dental Care, Regularly: Yes Physical Activity Frequency: Daily Seatbelt Use: always Sunscreen Use: Yes Assistive Devices: Crutches Physical Exam Constitutional: no acute distress Respiratory: no respiratory distress and no labored breathing Musculoskeletal: Head/Neck/Chest: normocephalic Skin: + pink/red plaques with ulcerations and appearance of hemorrhagic bullae and scabbed areas on L forearm, LLE and extension to groin/scrotum Neurologic: awake Psychiatric: A+Ox3, euthymic affect Genitourinary: Circumcised male, orthotopic meatus. Mild scrotal erythema noted. No significant scrotal edema. No fluctuance or crepitus. No drainage. Results & Data Vital Signs (Past 12 Hours) Vital Signs Temp Pulse Resp BP Pulse Ox O2 Del Method 06/07/23 09:30 Room Air 06/07/23 08:11 36.8 C 85 16 167/78 H 95 Room Air PG Care Time/CCT Total # of Minutes Spent Total Time Spent with Patient: Total time spent is greater than 50% in coordination of care (as documented) at patient's floor/unit and/or counseling patient: Coding Level of Care Code 69229 IN/OBS CONSULT LVL 3,45M Diagnoses Scrotal edema N50.89 Skin rash R21
[2023-06-07] MEDS: MAGNESIUM OXIDE 400 MG TAB PO SCH ×2 (15:20→16:40)
--- NOTE | 2023-06-07 17:03 | Hospitalist Progress Note ---
Date of Service June 07, 2023 Assessment & Plan (1) Cellulitis of left leg: Plan: This is a 37-year-old male with past med significant for diabetic Charcot foot, patient is supposed to be on wheelchair but currently using crutches to walk short distances, hypertension history of type 1 diabetes status post pancreas transplant, s/p kidney transplant, hepatitis C virus infection cured after antibiotic viral drug therapy, generalized anxiety disorder, history of drug abuse, on methadone lives alone comes because of left lower extremity cellulitis. Cellulitis of left leg Doppler is negative for DVT CT of left lower extremity-concern for cellulitis, venous stasis or lymphedema MRI RLE ordered consistent with cellulitis, no evidence of osteomyelitis Outpatient wound culture from L knee growing Enterobacter cloacae complex which is resistant to cefoxitin, gentamicin, tobramycin and Bactrim. Intermediate to Levaquin. Sensitive to ciprofloxacin, cefepime and Zosyn Will continue with IV cefepime vanco per recommendation of Dr. Lou of ID 06/11 Prelim blood culture growing coag neg staph not lugdunensis Skin rash Affecting extremities and lower abdomen and groin Recently saw dermatology - discussed outpatient skin biopsy/path resulting today from 05/[address] Bautista of derm today "Histologic findings are that of a necrolytic erythema, as can be seen with nutritional deficiencies. However the history and clinical images have been reviewed and in this case suggests neck or lytic acral erythema associated with hepatitis C" Patient states he underwent Hep C treatment in 2019 and had difficulty findings in records. Per patient, completed through [facility] with Dr. Villa - records requested per HIM Per discussion with Dr. Bautista (derm) as well as Dr. Lou (ID)- ordered Hep C RNA with quant, viral hepatitis panel, zinc and cryoglobulin Renal function, hemoglobin remain at baseline. LFTs normal Holding Bactrim (outpatient culture resistant to Bactrim) No additional dermatologic treatment, per Dr. Bautista. 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 Landis (patient with h/o kidney and pancreas transplant in 2020, Dr. Hennessy) -Feels work up is appropriate and would not add anything additionally besides pending tacro trough as above -Available by cell this weekend for any further discussion or if patient develops evidence of organ dysfunction that may prompt discussion for transfer (Dr. Landis cell : [phone]) Scrotal edema 2/2 rash and LLE cellulitis as above Appreciate urological eval - no intervention needed. Recommend conservative management with scrotal elevation and ice as needed for scrotal edema S/p renal transplant S/p pancreas transplant Continue transplant medications Bactrim currently held Chronic pain Continues home methadone Hyperlipidemia On statin Hypertension On Coreg DVT prophylaxis: Lovenox Disposition:Medical floor Full code Patient seen in collaboration with Dr. Brewer. Please see addendum. Admission and Anticipated Discharge Date Admission Date: June 05, 2023 Supervising Physician Co-Signing Physician Notes Pt seen and examined by myself, Nena Brewer MD on the day of service. Care was coordinated with Cherie Multani PA-C 37yoM admitted with cellulitis of both lower extremities L>R. Also scrotal swelling, urology consulted. Cellulitis improving as well as scrotal erythema with IV Cefepime and vanc. Concern for Hep C related dermal changes vs. nutritional deficiencies per discussion with Derm. ID followup for further recommendations, reached out to pt's transplant team, recs as above. Otherwise as above. Subjective Seen and examined in 381-1 with sister at bedside. Endorsing discomfort of LLE and L forearm that feels slightly improved compared to yesterday. Still with pain 2/2 scrotal swelling that makes movement painful. LLE pain improved. No new issues overnight. No F/C, lightheadedness, CP, SOB, N/V, abd pain, dysuria, diarrhea or constipation. Review of Systems Review of Systems: At least ten systems reviewed and negative except as noted in the HPI. Physical Exam Physical Exam: Gen: WD/WN, NAD, laying in bed, A&Ox3 HEENT: Normocephalic, atraumatic, conjunctivae moist, sclerae anicteric, mucous membranes moist Lung: Clear to Auscultation bilaterally, no wheezes/rales/rhonchi Heart: Regular rate, regular rhythm, no murmurs, rubs, or gallops Abdomen: Soft, NT, ND +BS x 4 Extremities: LLE edema in setting of cellulitis extending to scrotum Skin: Warm, + pink/red plaques with ulcerations and hemorrhagic bullae on L forearm, knees, LLE with extension to scrotum Results & Data Results & Data Vital Signs (Past 12 Hours) Vital Signs Temp Pulse Resp BP Pulse Ox O2 Del Method 06/07/23 16:19 36.6 C 75 16 136/78 95 Room Air 06/07/23 09:30 Room Air 06/07/23 08:11 36.8 C 85 16 167/78 H 95 Room Air Laboratory Results Short CBC 06/07/23 Range/Units 08:24 WBC 5.70 (4.8-10.8) K/ul Hgb 16.8 (14.0-18.0) g/dl Hct 56.3 H (42.0-52.0) % Plt Count 164 (130-400) K/uL BMP 06/07/23 08:24 Sodium 137 Potassium 4.0 Chloride 107 Carbon Dioxide 24 BUN 13 Creatinine 0.83 Glucose 93 Calcium 9.0 Liver Function 06/07/23 Range/Units 08:24 Total Bilirubin 1.0 (0.2-1.0) mg/dl AST 19 (13-39) U/L ALT 17 (7-52) U/L Alkaline Phosphatase 83 (34-104) U/L Albumin 3.0 L (3.4-5.0) gm/dl Diagnostic Findings Venous Doppler Study 06/04/23 15:04 ULTRASOUND LEFT LOWER EXTREMITY VENOUS CLINICAL HISTORY: Left leg pain and swelling. COMPARISON STUDY: Bilateral lower extremity venous ultrasound dated 12/08/2022. TECHNIQUE: Real-time, grayscale, and color Doppler sonography of the deep veins of the left lower extremity was performed from the inguinal crease to the calf. Compression and augmentation were utilized. FINDINGS: There is no sonographic evidence of deep venous thrombosis identified in the left lower extremity. The common femoral, superficial femoral, and popliteal veins are patent and normally compressible. The greater saphenous vein and the profunda femoris vein at the junction with the common femoral vein are clear. The visualized calf veins are patent. IMPRESSION: There is no sonographic evidence of deep venous thrombosis identified in the left lower extremity. ACT 112: Negative or not required by law. Electronically signed by: Jorge Simms M.D. 06/04/2023 4:[address] 06/05/23 05:47 CT tib/fib LT wo con HISTORY: 37 years-old Male LEFT LEG EDEMA. CELLULITIS. ANY ABSCESS. Acute pain and swelling of the left lower extremity COMPARISON: Duplex venous Doppler study 06/04/2023, left foot radiographs 10/19/2022. TECHNIQUE: Multiple axial CT images of the left tibia and fibula were obtained without the use of IV contrast. A dose lowering technique was used consistent with the principals of RENETTA. FINDINGS: There is moderate diffuse subcutaneous edema with skin thickening. A few small cutaneous defects are noted within the lower leg. No discrete fluid collections. There is mild to moderate fatty atrophy of the musculature with intramuscular edema and arterial calcifications. Partially imaged bony fragmentation/erosions within the midfoot and hindfoot with periarticular debris. No acute fracture, dislocation or osseous erosion identified within the tibia or fibula. IMPRESSION: 1. Partially imaged finding suggestive of Charcot neuropathy within the hindfoot and midfoot. 2. Skin thickening with subcutaneous and deep tissue edema. Differential considerations would include cellulitis, venous stasis or lymphedema. 3. No fluid collections. 4. Age advanced arterial calcifications. ACT 112: Negative or not required by law. The above report was generated using voice recognition software. It may contain grammatical, syntax or spelling errors. Electronically signed by: Luis Daniels M.D. 06/05/2023 7:38 AM Lower Extremity MRI 06/05/23 15:27 Exam(s): MRI EXTREMITY Without Contrast EXAM: MR Left Lower Extremity Without Intravenous Contrast, Tibia and Fibula CLINICAL HISTORY: Reason for exam: r/o osteomyelitis. TECHNIQUE: Multiplanar magnetic resonance images of the left tibia and fibula without intravenous contrast. COMPARISON: CT left tibia-fibula, 06/05/23 FINDINGS: There is circumferential subcutaneous edema of the leg suggesting cellulitis. There is no evidence of deep fascial edema. There are no fluid collections. There is mild fatty atrophy of the calf musculature. There are no bone marrow signal abnormalities to suggest osteomyelitis. There are no acute fractures. IMPRESSION: Cellulitis. No evidence of osteomyelitis. Electronically signed by: Greg Varela M.D. 06/06/23 00:40 AM
[2023-06-07] MEDS: VANCOMYCIN HCL 1,250 MG in SODIUM CHLORIDE 0.9% 250 ML IV SCH (20:22)
[2023-06-08] MEDS: CEFEPIME 2,000 MG in SYRINGE 0 ML IV SCH ×2 (04:10→15:49)
[2023-06-08] MEDS: ENOXAPARIN INJ 40 MG/0.4 ML SYR SQ SCH (06:37)
[2023-06-08] MEDS: MYCOPHENOLATE MOFETIL 250 MG CAP PO SCH ×2 (08:00→20:01)
[2023-06-08] MEDS: ROSUVASTATIN CALCIUM 10 MG TAB PO SCH (08:00)
[2023-06-08] MEDS: ASPIRIN 325 MG ECTAB PO SCH (08:00)
[2023-06-08] MEDS: METHADONE ORAL SOLN 2 MG/ML PO SCH (08:00)
[2023-06-08] MEDS: TACROLIMUS 1 MG CAP PO SCH ×2 (08:00→20:01)
[2023-06-08] MEDS: PREGABALIN 50 MG CAP PO SCH ×3 (08:00→20:11)
[2023-06-08] MEDS: carvediloL 6.25 MG TAB PO SCH ×2 (08:00→20:01)
[2023-06-08] MEDS: VANCOMYCIN HCL 1,250 MG in SODIUM CHLORIDE 0.9% 250 ML IV SCH ×2 (08:00→19:58)
[2023-06-08] MEDS: PATIENT'S OWN CONTROLLED MED 2 PO SCH (08:01)
[2023-06-08 09:48] LABS: Basophils # (auto) 0.03 K/uL (0.00-0.20); Basophils % (auto) 0.6 %; Eosinophils # (auto) 0.04 K/uL (0.00-0.50); Eosinophils % (auto) 0.8 %; Hematocrit (blood only) 53.4 % (42.0-52.0); Hemoglobin 16.3 g/dl (14.0-18.0); Immature Granulocytes # (auto) 0.07 K/uL (0.01-0.20); Immature Granulocytes % (auto) 1.3 %; Lymphocytes % (auto) 26.8 %; Mean Corpuscular Hemoglobin 26.2 pg (25.0-34.0); Mean Corpuscular Hgb Conc 30.5 g/dL (32.0-36.0); Mean Platelet Volume 8.5 fL (9.4-12.4); Monocytes # (auto) 0.76 K/uL (0.11-0.59); Monocytes % (auto) 14.6 %; Neutrophils # (auto) 2.92 K/uL (1.40-6.50); Neutrophils % (auto) 55.9 %; Platelet Count 175 K/uL (130-400); RDW Coefficient of Variation 19.5 % (11.5-14.5); RDW Standard Deviation 57.3 fL (36.4-46.3); Red Blood Count 6.21 M/uL (4.70-6.10); White Blood Count 5.22 K/ul (4.8-10.8)
[2023-06-08 10:05] LABS: Albumin Globulin Ratio 1.1 (0.9-2); Albumin Level 2.9 gm/dl (3.4-5.0); BUN Creatinine Ratio 14.7 (10-20); Bilirubin,Total 0.8 mg/dl (0.2-1.0); Creatinine Clr Calc Pharmacy 136.5 ml/min; Est GFR (African American) 133.9 ml/min; Est GFR (Non-African American) 115.6 ml/min; Globulin 2.7 gm/dl (2.5-4.0); Magnesium 1.4 mg/dl (1.7-2.4); Phosphorus 2.6 mg/dl (2.5-4.9); Potassium 4.2 mmol/L (3.5-5.1); Total Protein 5.6 gm/dl (6.0-8.3)
[2023-06-08] MEDS: MAGNESIUM CHLORIDE W/CALCIUM 64MG DELAYED REL TAB PO SCH ×2 (14:49→20:00)
[2023-06-08] MEDS: MAGNESIUM SULFATE / D5W 1 GM/100 ML BAG IV SCH ×2 (15:49→17:55)
--- NOTE | 2023-06-08 18:06 | Hospitalist Progress Note ---
Date of Service June 08, 2023 Assessment & Plan (1) Cellulitis of left leg: Plan: This is a 37-year-old male with past med significant for diabetic Charcot foot, patient is supposed to be on wheelchair but currently using crutches to walk short distances, hypertension history of type 1 diabetes status post pancreas transplant, s/p kidney transplant, hepatitis C virus infection cured after antibiotic viral drug therapy, generalized anxiety disorder, history of drug abuse, on methadone lives alone comes because of left lower extremity cellulitis. Cellulitis of left leg Doppler is negative for DVT CT of left lower extremity-concern for cellulitis, venous stasis or lymphedema MRI RLE ordered consistent with cellulitis, no evidence of osteomyelitis Outpatient wound culture from L knee growing Enterobacter cloacae complex which is resistant to cefoxitin, gentamicin, tobramycin and Bactrim. Intermediate to Levaquin. Sensitive to ciprofloxacin, cefepime and Zosyn Will continue with IV cefepime vanco per recommendation of Dr. Lou of ID 06/11 Prelim blood culture growing coag neg staph not lugdunensis Awaiting ID recs for discharge Skin rash Affecting extremities and lower abdomen and groin Recently saw dermatology - discussed outpatient skin biopsy/path resulting today from 05/[address] Bautista of derm today "Histologic findings are that of a necrolytic erythema, as can be seen with nutritional deficiencies. However the history and clinical images have been reviewed and in this case suggests neck or lytic acral erythema associated with hepatitis C" Patient states he underwent Hep C treatment in 2019 and had difficulty findings in records. Per patient, completed through [facility] with Dr. Villa - records requested per HIM Per discussion with Dr. Bautista (derm) as well as Dr. Lou (ID)- ordered Hep C RNA with quant, viral hepatitis panel, zinc and cryoglobulin Renal function, hemoglobin remain at baseline. LFTs normal Holding Bactrim (outpatient culture resistant to Bactrim) No additional dermatologic treatment, per Dr. Bautista. 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 Landis (patient with h/o kidney and pancreas transplant in 2020, Dr. Hennessy) -Feels work up is appropriate and would not add anything additionally besides pending tacro trough as above -Available by cell this weekend for any further discussion or if patient develops evidence of organ dysfunction that may prompt discussion for transfer (Dr. Landis cell : [phone]) Scrotal edema 2/2 rash and LLE cellulitis as above Appreciate urological eval - no intervention needed. Recommend conservative management with scrotal elevation and ice as needed for scrotal edema Improving S/p renal transplant S/p pancreas transplant Continue transplant medications Bactrim currently held Chronic pain Continues home methadone Hyperlipidemia On statin Hypertension On Coreg DVT prophylaxis: Lovenox Disposition:Awaiting ID recs for dc Full code Admission and Anticipated Discharge Date Admission Date: June 05, 2023 Subjective Pt requesting to shower- was not done the day before. States that legs are much improved symptomatically. Wants off the heart healthy diet as he only gets turkey sandwiches Review of Systems Review of Systems: All systems reviewed & are unremarkable except as noted in Subjective Physical Exam Physical Exam: General: Alert, oriented. No acute distress Skin: improved erythema on extremities Psych: Appropriate mood and affect Neuro: difficulty with movements HEENT: NC/AT Chest: Nontender to palpation. CV: RRR Resp: no increased effort of breathing Abdomen:. Soft, nontender, nondistended : noted erythema and swelling to scrotum, improving Extremities: improved erythema on extremities Results & Data Results & Data Vital Signs (Past 12 Hours) Vital Signs Temp Pulse Resp BP Pulse Ox O2 Del Method 06/08/23 07:02 36.7 C 80 16 148/82 H 95 Room Air
[2023-06-08] MEDS: clonazePAM 0.5 MG TAB PO PRN (20:11)
[2023-06-09] MEDS: CEFEPIME 2,000 MG in SYRINGE 0 ML IV SCH ×2 (03:50→15:02)
[2023-06-09] MEDS: oxyCODONE HCL IR 5 MG TAB (IMMEDIATE RELEASE) PO PRN ×2 (03:59→21:05)
[2023-06-09] MEDS: ENOXAPARIN INJ 40 MG/0.4 ML SYR SQ SCH (05:03)
[2023-06-09] MEDS ORDERED: VANCOMYCIN LEVEL ONE (07:30)
[2023-06-09] MEDS: TACROLIMUS 1 MG CAP PO SCH ×2 (07:57→20:58)
[2023-06-09] MEDS: carvediloL 6.25 MG TAB PO SCH ×2 (07:57→20:57)
[2023-06-09] MEDS: METHADONE ORAL SOLN 2 MG/ML PO SCH (07:57)
[2023-06-09] MEDS: PATIENT'S OWN CONTROLLED MED 2 PO SCH (07:57)
[2023-06-09] MEDS: ROSUVASTATIN CALCIUM 10 MG TAB PO SCH (07:57)
[2023-06-09] MEDS: MYCOPHENOLATE MOFETIL 250 MG CAP PO SCH ×2 (07:58→20:58)
[2023-06-09] MEDS: PREGABALIN 50 MG CAP PO SCH ×3 (07:58→20:57)
[2023-06-09] MEDS: ASPIRIN 325 MG ECTAB PO SCH (07:58)
[2023-06-09] MEDS: MAGNESIUM CHLORIDE W/CALCIUM 64MG DELAYED REL TAB PO SCH ×2 (07:58→20:58)
[2023-06-09 08:35] LABS: Hematocrit (blood only) 53.1 % (42.0-52.0); Hemoglobin 15.9 g/dl (14.0-18.0); Mean Corpuscular Hemoglobin 26.3 pg (25.0-34.0); Mean Corpuscular Hgb Conc 29.9 g/dL (32.0-36.0); Mean Corpuscular Volume 87.8 fL (80.0-100.0); Mean Platelet Volume 8.1 fL (9.4-12.4); Platelet Count 177 K/uL (130-400); RDW Coefficient of Variation 19.5 % (11.5-14.5); RDW Standard Deviation 58.6 fL (36.4-46.3); Red Blood Count 6.05 M/uL (4.70-6.10); White Blood Count 6.26 K/ul (4.8-10.8)
[2023-06-09 08:47] LABS: BUN Creatinine Ratio 18.9 (10-20); Calcium 9.1 mg/dl (8.6-10.3); Creatinine Clr Calc Pharmacy 138.4 ml/min; Est GFR (African American) 134.7 ml/min; Est GFR (Non-African American) 116.2 ml/min; Potassium 4.3 mmol/L (3.5-5.1)
[2023-06-09] MEDS: VANCOMYCIN HCL 1,250 MG in SODIUM CHLORIDE 0.9% 250 ML IV SCH (09:19)
[2023-06-09] MEDS: ZINC SULFATE 220 MG CAPSULE PO SCH (12:08)
--- NOTE | 2023-06-09 12:10 | Pharmacy Report ---
Pharmacy PK ABX Note - Date of Service June 09, 2023 - Assessment and Plan Assessment 06/09: Continues on vancomycin/cefepime. Renal function stable. 06/04 blood cultures (+) MRSE in 2/. Repeat cultures pending. Day # 5 vancomycin. 37 year old M receiving empiric vancomycin and cefepime for treatment of LLE cellulitis. Pertinent PMH includes T1DM due to pancreas transplant, s/p kidney transplant, hx of IV drug abuse. Patient on immunosuppressive therapy w/ mycophenolate and tacrolimus. Infectious diseases consulted and recommending vancomycin/cefepime at this time. Pertinent microbiologic data includes: 1 of 2 blood cultures growing gram- positive cocci clusters. Biofire reveals Staphylococcus epidermidis (methicillin-resistant), possible contaminant? Lower extremity MRI shows no evidence of osteomyelitis. Per ID note, left knee culture obtained by [facility] dermatology team and is growing Enterobacter. However, this is not believed to be reliable. Day # 3 of antimicrobial therapy. Continuing Vanc + Cefepime from cellulitis standpoint, no concern for bacteremia at this time. Plan Vancomycin * Current regimen: 1250mg IV q12h * Random level this AM, 13.5mcg/mL (~12 hr. level). Predicted to achieve ssAUC 471mg/L.hr with 78% probability. Will optimize to 1500mg IV q12h. * Change to 1500 mg IV every 12 hours * Repeat level in 48-72h if vancomycin continued. Pharmacy will continue to follow and will adjust dose/frequency as necessary. Thank you. Pharmacy has transitioned to AUC monitoring for vancomycin. AUC/TU is the preferred PK/PD target and is associated with decreased risk of nephrotoxicity compared to traditional trough targets.
--- NOTE | 2023-06-09 18:11 | Hospitalist Progress Note ---
Date of Service June 09, 2023 Assessment & Plan (1) Cellulitis of left leg: Plan: This is a 37-year-old male with past med significant for diabetic Charcot foot, patient is supposed to be on wheelchair but currently using crutches to walk short distances, hypertension history of type 1 diabetes status post pancreas transplant, s/p kidney transplant, hepatitis C virus infection cured after antibiotic viral drug therapy, generalized anxiety disorder, history of drug abuse, on methadone lives alone comes because of left lower extremity cellulitis. Cellulitis of left leg Doppler is negative for DVT CT of left lower extremity-concern for cellulitis, venous stasis or lymphedema MRI RLE ordered consistent with cellulitis, no evidence of osteomyelitis Outpatient wound culture from L knee growing Enterobacter cloacae complex which is resistant to cefoxitin, gentamicin, tobramycin and Bactrim. Intermediate to Levaquin. Sensitive to ciprofloxacin, cefepime and Zosyn Will continue with IV cefepime vanco per recommendation of Dr. Lou of ID 07/14 Prelim blood culture growing coag neg staph not lugdunensis Awaiting ID recs for discharge Skin rash Affecting extremities and lower abdomen and groin Recently saw dermatology - discussed outpatient skin biopsy/path resulting today from 05/[address] Bautista of derm today "Histologic findings are that of a necrolytic erythema, as can be seen with nutritional deficiencies. (added empiric zinc 06/09) However the history and clinical images have been reviewed and in this case suggests neck or lytic acral erythema associated with hepatitis C" Patient states he underwent Hep C treatment in 2019 and had difficulty findings in records. Per patient, completed through [facility] with Dr. Villa - records requested per HIM Per discussion with Dr. Bautista (derm) as well as Dr. Lou (ID)- ordered Hep C RNA with quant, viral hepatitis panel, zinc and cryoglobulin Renal function, hemoglobin remain at baseline. LFTs normal Holding Bactrim (outpatient culture resistant to Bactrim) No additional dermatologic treatment, per Dr. Bautista. Continue wound care as is Discussed case with [facility] nephro transplant provider movement education specialist Dr. Landis (patient with h/o kidney and pancreas transplant in 2020, Dr. Hennessy) -Feels work up is appropriate and would not add anything additionally besides pending tacro trough as above -Available by cell this weekend for any further discussion or if patient develops evidence of organ dysfunction that may prompt discussion for transfer (Dr. Landis cell : [phone]) Bacteremia 2/4 bottles +PROTEIN SCIENTIST not lugdenensis with PCR showing oxacillin resistance. Improving on vancomycin. Awaiting repeat blood cultures to ensure this is cleared. Definitive recs per ID. Diabetic peripheral neuropathy with Charcot deformity no osteo on MRI LLE XR left foot reveals increasing bony fragmentation in the midfoot, greatest in volving the navicular. This has significantly progressed as compared to 10/19/2022. Podiatry consult placed. Cont pain control efforts but hold off on steroids pending podiatry recs, payton with ongoing infection. Scrotal edema 2/2 rash and LLE cellulitis as above Appreciate urological eval - no intervention needed. Recommend conservative management with scrotal elevation and ice as needed for scrotal edema Improving S/p renal transplant S/p pancreas transplant Continue transplant medications Bactrim currently held Chronic pain Continues home methadone Hyperlipidemia On statin Hypertension On Coreg DVT prophylaxis: Lovenox Disposition:Awaiting ID recs for dc Full code Mamie Castellanos DO [facility] Hospitalist Admission and Anticipated Discharge Date Admission Date: June 05, 2023 Subjective 37 yo M with immunosuppressed state s/p pancreas and renal transplant presents wtih cellulitis of left arm and leg. Today cheyanne reports acute worsening of swelling in his left ankle area compared to the right he reports not being able to walk on this and has a known h/o charcot arthropathy. he reports that steroids have worked for him in the past He reports his skin infection is improving with abx. Physical Exam Physical Exam: CONSTITUTIONAL: WNWD, vitals as above, generally well-appearing, NAD EYES: normal conjunctivae, no scleral icterus ENT: external ear and nose normal, MMM NECK: trachea midline RESPIRATORY: clear to auscultation bilaterally, no crackles, rales or wheezes, normal respiratory effort CARDIOVASCULAR: regular rate and rhythm, S1 and 2 heard without murmurs, gallops or rubs, no JVD, no peripheral edema CHEST: inspection of chest was normal GASTROINTESTINAL: soft, nontender, ND, no guarding MUSCULOSKELETAL: strength 5/5 throughout, head is normocephalic and atraumatic. Left ankle swelling and warmth to touch compared with the right. SKIN: warm and dry, pink rash on left arm, scabbed over areas that are dark brown on bilateral knees with surrounding pink rash. NEUROLOGIC: CN 2-12 grossly intact, no sensory deficit, normal cognition, normal speech, no tremor PSYCHIATRIC: alert cooperative and oriented to person, place and time. Euthymic mood, makes good eye contact, language grossly intact, recent and remote memory grossly intact. Results & Data Results & Data Vital Signs (Past 12 Hours) Vital Signs Temp Pulse Resp BP Pulse Ox O2 Del Method 06/09/23 15:52 36.7 C 80 18 143/83 H 94 Room Air 06/09/23 07:21 36.7 C 84 18 168/84 H 94 Room Air Laboratory Results Short CBC 06/09/23 Range/Units 07:43 WBC 6.26 (4.8-10.8) K/ul Hgb 15.9 (14.0-18.0) g/dl Hct 53.1 H (42.0-52.0) % Plt Count 177 (130-400) K/uL BMP 06/09/23 07:43 Sodium 137 Potassium 4.3 Chloride 106 Carbon Dioxide 25 BUN 14 Creatinine 0.74 Glucose 74 Calcium 9.1 Medications Administered Current Inpatient Medications Acetaminophen (Acetaminophen 325 Mg Tab) 650 mg PO Q4H PRN PRN Reason: pain/fever Stop: 07/05/23 02:07 Aspirin (Aspirin 325 Mg Ectab) 325 mg PO DAILY [facility] Stop: 07/05/23 08:59 Last Admin: 06/09/23 07:58 Dose: 325 mg Carvedilol (Carvedilol 6.25 Mg Tab) 6.25 mg PO BID [facility] Stop: 07/05/23 08:59 Last Admin: 06/09/23 07:57 Dose: 6.25 mg Clonazepam (Clonazepam 0.5 Mg Tab) 0.5 mg PO BID PRN PRN Reason: Anxiety Stop: 07/05/23 02:07 Last Admin: 06/08/23 20:11 Dose: 0.5 mg Dextrose (Dextrose 50% 50 Ml Syringe) 25 - 50 ml IV UD PRN; Protocol PRN Reason: Hypoglycemia Protocol Stop: 07/05/23 07:46 Enoxaparin Sodium (Enoxaparin Inj 40 Mg/0.4 Ml Syr) 40 mg SQ Q24H [facility] Stop: 07/05/23 05:59 Last Admin: 06/09/23 05:03 Dose: Not Given Glucagon (Glucagon For Inj 1 Mg Vial) 1 mg SQ UD PRN; Protocol PRN Reason: Hypoglycemia Protocol Stop: 07/05/23 07:46 Glucose (Glucose 10 Tab/Tube) 4 - 8 tab PO UD PRN; Protocol PRN Reason: Hypoglycemia Treatment Stop: 07/05/23 07:46 Glucose (Glucose 40% Gel 15 Gm Tube) 15 - 30 gm PO UD PRN; Protocol PRN Reason: Hypoglycemia Protocol Stop: 07/05/23 07:46 Cefepime HCl 2,000 mg/ Syringe 20 mls @ 5 mls/min IV Q12H AYESHA; Protocol Stop: 06/12/23 03:59 Last Admin: 06/09/23 15:02 Dose: 5 mls/min Vancomycin HCl 1,500 mg/ (Sodium Chloride) 530 mls @ 200 mls/hr IV Q12H [facility] Stop: 06/11/23 19:59 Magnesium Chloride (Magnesium Chloride W/Calcium 64mg Delayed Rel Tab) 64 mg PO BID [facility] Stop: 07/08/23 11:29 Last Admin: 06/09/23 07:58 Dose: 64 mg Methadone HCl (Methadone Oral Soln 2 Mg/Ml) 105 mg PO DAILY [facility] Stop: 06/19/23 08:59 Last Admin: 06/09/23 07:57 Dose: 105 mg Miscellaneous (Carbohydrates For Hypoglycemia ) 15 - 30 gm PO UD PRN PRN Reason: Hypoglycemia Protocol Stop: 07/05/23 07:46 Miscellaneous Information (Vancomycin Consult Active) 1 each N/A UD PRN PRN Reason: Consult Stop: 07/05/23 15:31 Mycophenolate Mofetil (Mycophenolate Mofetil 250 Mg Cap) 750 mg PO BID [facility] Stop: 07/05/23 08:59 Last Admin: 06/09/23 07:58 Dose: 750 mg Non-Formulary Medication (Patient's Own Controlled Med 2) 1 each PO DAILY [facility] Stop: 06/20/23 08:59 Last Admin: 06/09/23 07:57 Dose: 1 each Oxycodone HCl (Oxycodone Hcl Ir 5 Mg Tab (Immediate Release)) 5 mg PO Q6H PRN PRN Reason: Mod-Sev Pain (Scale 4-10) Stop: 06/19/23 02:07 Last Admin: 06/09/23 03:59 Dose: 5 mg Pregabalin (Pregabalin 50 Mg Cap) 50 mg PO TID [facility] Stop: 07/05/23 08:59 Last Admin: 06/09/23 15:02 Dose: 50 mg Rosuvastatin Calcium (Rosuvastatin Calcium 10 Mg Tab) 10 mg PO DAILY [facility] Stop: 07/05/23 08:59 Last Admin: 06/09/23 07:57 Dose: 10 mg Tacrolimus (Tacrolimus 1 Mg Cap) 1 mg PO Q12H [facility] Stop: 07/05/23 08:59 Last Admin: 06/09/23 07:57 Dose: 1 mg Zinc Sulfate (Zinc Sulfate 220 Mg Capsule) 220 mg PO QAM [facility] Stop: 07/09/23 11:29 Last Admin: 06/09/23 12:08 Dose: 220 mg
--- NOTE | 2023-06-09 20:00 | XRay Report ---
LEFT FOOT 3 VIEWS CLINICAL HISTORY: Left foot pain and swelling. Charcot foot. FINDINGS: 3 views of the left foot are compared to study dated 10/19/2022. The skeletal structures are osteopenic. No fracture is clearly identify. Degenerative change and sclerosis is seen throughout th e midfoot consistent with the reported history of a Charcot foot. There is increasing bony fragmentat ion in the midfoot, greatest involving the navicular. This has significantly progressed as compared t o 10/19/2022. Pes planus is observed. No erosive disease is seen to suggest osteomyelitis. Diffuse sof t tissue edema is noted in the foot. There is atherosclerotic calcification of the regional arteries. IMPRESSION: 1. Soft tissue swelling with no acute fracture clearly identified. 2. Osteopenia and degenerative change as above consistent with the reported history of a Charcot foot . 3. There is increasing bony fragmentation in the midfoot, greatest involving the navicular. This has significantly progressed as compared to 10/19/2022. Electronically signed by: Jorge Simms M.D. 06/09/2023 7:57 PM
--- NOTE | 2023-06-09 20:01 | XRay Report ---
LEFT ANKLE 2 VIEWS CLINICAL HISTORY: Left ankle pain and swelling FINDINGS: AP and lateral views of the left ankle are correlated with CT scan of the left tibia and fi bula dated 06/05/2023. The skeletal structures are osteopenic. No acute fracture is seen at the ankle joint. Ankle mortise is intact. There is no ankle joint effusion. Bony fragmentation is seen in the visualized midfoot, greatest involving the navicular. This is consistent with the reported history of a Charcot foot. Diffuse soft tissue edema is noted. There is atherosclerotic calcification of the re gional arteries. IMPRESSION: 1. Soft tissue swelling with no acute fracture seen at the ankle joint. 2. Osteopenia and degenerative change as above. This is similar to the 06/05/2023 CT examination. Electronically signed by: Jorge Simms M.D. 06/09/2023 8:00 PM
[2023-06-09] MEDS: VANCOMYCIN HCL 1,500 MG in SODIUM CHLORIDE 0.9% 500 ML IV SCH (20:55)
[2023-06-10] MEDS: CEFEPIME 2,000 MG in SYRINGE 0 ML IV SCH ×2 (04:56→16:26)
[2023-06-10] MEDS: ENOXAPARIN INJ 40 MG/0.4 ML SYR SQ SCH (05:09)
[2023-06-10] MEDS: oxyCODONE HCL IR 5 MG TAB (IMMEDIATE RELEASE) PO PRN (05:14)
[2023-06-10 06:58] LABS: C Reactive Protein 4.41 mg/dl (0-0.5); Creatinine Clr Calc Pharmacy 115.1 ml/min; Est GFR (African American) 124.8 ml/min; Est GFR (Non-African American) 107.7 ml/min
[2023-06-10] MEDS: ROSUVASTATIN CALCIUM 10 MG TAB PO SCH (08:02)
[2023-06-10] MEDS: VANCOMYCIN HCL 1,500 MG in SODIUM CHLORIDE 0.9% 500 ML IV SCH ×2 (08:02→19:47)
[2023-06-10] MEDS: PREGABALIN 50 MG CAP PO SCH ×3 (08:02→19:53)
[2023-06-10] MEDS: ASPIRIN 325 MG ECTAB PO SCH (08:02)
[2023-06-10] MEDS: PATIENT'S OWN CONTROLLED MED 2 PO SCH (08:02)
[2023-06-10] MEDS: METHADONE ORAL SOLN 2 MG/ML PO SCH (08:02)
[2023-06-10] MEDS: MAGNESIUM CHLORIDE W/CALCIUM 64MG DELAYED REL TAB PO SCH ×2 (08:02→19:48)
[2023-06-10] MEDS: ZINC SULFATE 220 MG CAPSULE PO SCH (08:03)
[2023-06-10] MEDS: MYCOPHENOLATE MOFETIL 250 MG CAP PO SCH ×2 (08:03→19:47)
[2023-06-10] MEDS: carvediloL 6.25 MG TAB PO SCH ×2 (08:03→19:47)
[2023-06-10] MEDS: TACROLIMUS 1 MG CAP PO SCH ×2 (08:03→19:47)
--- NOTE | 2023-06-10 14:55 | Hospitalist Progress Note ---
Date of Service June 10, 2023 Assessment & Plan (1) Cellulitis of left leg: Plan: This is a 37-year-old male with past med significant for diabetic Charcot foot, patient is supposed to be on wheelchair but currently using crutches to walk short distances, hypertension history of type 1 diabetes status post pancreas transplant, s/p kidney transplant, hepatitis C virus infection cured after antibiotic viral drug therapy, generalized anxiety disorder, history of drug abuse, on methadone lives alone comes because of left lower extremity cellulitis. Cellulitis of left leg/left arm Doppler is negative for DVT CT of left lower extremity-concern for cellulitis, venous stasis or lymphedema MRI RLE ordered consistent with cellulitis, no evidence of osteomyelitis Outpatient wound culture from L knee growing Enterobacter cloacae complex which is resistant to cefoxitin, gentamicin, tobramycin and Bactrim. Intermediate to Levaquin. Sensitive to ciprofloxacin, cefepime and Zosyn 2/ blood culture growing coag neg staph not lugdunensis with resistance to methicillin on biofire Will continue with IV cefepime vanco per recommendation of Dr. Lou of ID Awaiting ID recs for discharge Skin rash Affecting extremities and lower abdomen and groin Recently saw dermatology - discussed outpatient skin biopsy/path resulting today from 05/[address] Bautista of derm today "Histologic findings are that of a necrolytic erythema, as can be seen with nutritional deficiencies. (added empiric zinc 06/09) However the history and clinical images have been reviewed and in this case suggests neck or lytic acral erythema associated with hepatitis C" Patient states he underwent Hep C treatment in 2019 and had difficulty findings in records. Per patient, completed through [facility] with Dr. Villa - records requested per HIM Per discussion with Dr. Bautista (derm) as well as Dr. Lou (ID)- ordered Hep C RNA with quant, viral hepatitis panel, zinc and cryoglobulin Renal function, hemoglobin remain at baseline. LFTs normal Holding Bactrim (outpatient culture resistant to Bactrim) No additional dermatologic treatment, per Dr. Bautista. Continue wound care as is Discussed case with [facility] nephro transplant provider donor relations manager Dr. Landis (patient with h/o kidney and pancreas transplant in 2020, Dr. Hennessy) -Feels work up is appropriate and would not add anything additionally besides pending tacro trough as above -Available by cell this weekend for any further discussion or if patient develops evidence of organ dysfunction that may prompt discussion for transfer (Dr. Landis cell : [phone]) Bacteremia 2/4 bottles +BALL POINT SPLITTER not lugdenensis with PCR showing oxacillin resistance. Improving on vancomycin. Awaiting repeat blood cultures to ensure this is cleared. Definitive recs per ID. Diabetic peripheral neuropathy with Charcot deformity MRI was performed on right lower extremity, but the swelling and pain is in the left lower extremity. XR left foot reveals increasing bony fragmentation in the midfoot, greatest involving the navicular. This has significantly progressed as compared to 2022. Podiatry consult placed-recommends conservative measures. Cont pain control efforts but hold off on steroids pending podiatry recs, payton with ongoing infection. Pt is NWB on the left foot and uses crutches to get around. He cannot use a regular wheelchair and is waiting for approval for a motorized wheelchair. Scrotal edema 2/2 rash and LLE cellulitis as above Appreciate urological eval - no intervention needed. Recommend conservative management with scrotal elevation and ice as needed for scrotal edema Improving S/p renal transplant S/p pancreas transplant Continue transplant medications Bactrim currently held Chronic pain Continues home methadone Hyperlipidemia On statin Hypertension On Coreg DVT prophylaxis: Lovenox Disposition:Awaiting ID recs for dc Full code I spent a total [id number] coordinating, documenting, and providing care for this patient excluding time spent in the performance of separately billed services Mamie Castellanos DO [facility] Hospitalist Admission and Anticipated Discharge Date Admission Date: June 05, 2023 Subjective 37 yo M with immunosuppressed state s/p pancreas and renal transplant presents wtih cellulitis of left arm and leg. Today he reports acute worsening of swelling in his left ankle area compared to the right--improved on oxycodone which he is only requiring at night. We agreed on increasing the dose slightly to see if this is more effective he reports not being able to walk on this and has a known h/o charcot arthropathy. Seen by podiatry today who discussed conservative measures for this he reports that steroids have worked for him in the past -not ideal given infection He reports his skin infection is improving with abx. Discussed the care plan with Dr. Mendez from podiatry. Physical Exam Physical Exam: CONSTITUTIONAL: WNWD, vitals as above, generally well-appearing, NAD EYES: normal conjunctivae, no scleral icterus ENT: external ear and nose normal, MMM NECK: trachea midline RESPIRATORY: clear to auscultation bilaterally, no crackles, rales or wheezes, normal respiratory effort CARDIOVASCULAR: regular rate and rhythm, S1 and 2 heard without murmurs, gallops or rubs, no JVD, no peripheral edema CHEST: inspection of chest was normal GASTROINTESTINAL: soft, nontender, ND, no guarding scrotal scabbing similar to the brown scattered scabbing on his knees bilaterally and his left forearm. MUSCULOSKELETAL: strength 5/5 throughout, head is normocephalic and atraumatic. Left ankle swelling and warmth to touch compared with the right. Appears inflamed but not infected. SKIN: warm and dry, pink rash on left arm, scabbed over areas that are dark brown on bilateral knees with surrounding pink rash-continues to improve. NEUROLOGIC: CN 2-12 grossly intact, no sensory deficit, normal cognition, normal speech, no tremor PSYCHIATRIC: alert cooperative and oriented to person, place and time. Euthymic mood, makes good eye contact, language grossly intact, recent and remote memory grossly intact. Results & Data Results & Data Vital Signs (Past 12 Hours) Vital Signs Temp Pulse Resp BP Pulse Ox O2 Del Method 06/10/23 06:30 36.7 C 87 18 152/87 H 94 Room Air Laboratory Results [facility] 06/10/23 05:46 Creatinine 0.89 Medications Administered Current Inpatient Medications Acetaminophen (Acetaminophen 325 Mg Tab) 650 mg PO Q4H PRN PRN Reason: pain/fever Stop: 07/05/23 02:07 Aspirin (Aspirin 325 Mg Ectab) 325 mg PO DAILY [facility] Stop: 07/05/23 08:59 Last Admin: 06/10/23 08:02 Dose: 325 mg Carvedilol (Carvedilol 6.25 Mg Tab) 6.25 mg PO BID [facility] Stop: 07/05/23 08:59 Last Admin: 06/10/23 08:03 Dose: 6.25 mg Clonazepam (Clonazepam 0.5 Mg Tab) 0.5 mg PO BID PRN PRN Reason: Anxiety Stop: 07/05/23 02:07 Last Admin: 06/08/23 20:11 Dose: 0.5 mg Dextrose (Dextrose 50% 50 Ml Syringe) 25 - 50 ml IV UD PRN; Protocol PRN Reason: Hypoglycemia Protocol Stop: 07/05/23 07:46 Enoxaparin Sodium (Enoxaparin Inj 40 Mg/0.4 Ml Syr) 40 mg SQ Q24H [facility] Stop: 07/05/23 05:59 Last Admin: 06/10/23 05:09 Dose: 40 mg Glucagon (Glucagon For Inj 1 Mg Vial) 1 mg SQ UD PRN; Protocol PRN Reason: Hypoglycemia Protocol Stop: 07/05/23 07:46 Glucose (Glucose 10 Tab/Tube) 4 - 8 tab PO UD PRN; Protocol PRN Reason: Hypoglycemia Treatment Stop: 07/05/23 07:46 Glucose (Glucose 40% Gel 15 Gm Tube) 15 - 30 gm PO UD PRN; Protocol PRN Reason: Hypoglycemia Protocol Stop: 07/05/23 07:46 Cefepime HCl 2,000 mg/ Syringe 20 mls @ 5 mls/min IV Q12H [facility]; Protocol Stop: 06/12/23 03:59 Last Admin: 06/10/23 04:56 Dose: 5 mls/min Vancomycin HCl 1,500 mg/ (Sodium Chloride) 530 mls @ 200 mls/hr IV Q12H [facility] Stop: 06/11/23 19:59 Last Infusion: 06/10/23 10:42 Dose: Infused Magnesium Chloride (Magnesium Chloride W/Calcium 64mg Delayed Rel Tab) 64 mg PO BID [facility] Stop: 07/08/23 11:29 Last Admin: 06/10/23 08:02 Dose: 64 mg Methadone HCl (Methadone Oral Soln 2 Mg/Ml) 105 mg PO DAILY [facility] Stop: 06/19/23 08:59 Last Admin: 06/10/23 08:02 Dose: 105 mg Miscellaneous (Carbohydrates For Hypoglycemia ) 15 - 30 gm PO UD PRN PRN Reason: Hypoglycemia Protocol Stop: 07/05/23 07:46 Miscellaneous Information (Vancomycin Consult Active) 1 each N/A UD PRN PRN Reason: Consult Stop: 07/05/23 15:31 Mycophenolate Mofetil (Mycophenolate Mofetil 250 Mg Cap) 750 mg PO BID [facility] Stop: 07/05/23 08:59 Last Admin: 06/10/23 08:03 Dose: 750 mg Non-Formulary Medication (Patient's Own Controlled Med 2) 1 each PO DAILY [facility] Stop: 06/20/23 08:59 Last Admin: 06/10/23 08:02 Dose: Not Given Oxycodone HCl (Oxycodone Hcl Ir 5 Mg Tab (Immediate Release)) 5 mg PO Q6H PRN PRN Reason: Mod-Sev Pain (Scale 4-10) Stop: 06/19/23 02:07 Last Admin: 06/10/23 05:14 Dose: 5 mg Pregabalin (Pregabalin 50 Mg Cap) 50 mg PO TID [facility] Stop: 07/05/23 08:59 Last Admin: 06/10/23 14:02 Dose: 50 mg Rosuvastatin Calcium (Rosuvastatin Calcium 10 Mg Tab) 10 mg PO DAILY [facility] Stop: 07/05/23 08:59 Last Admin: 06/10/23 08:02 Dose: 10 mg Tacrolimus (Tacrolimus 1 Mg Cap) 1 mg PO Q12H [facility] Stop: 07/05/23 08:59 Last Admin: 06/10/23 08:03 Dose: 1 mg Zinc Sulfate (Zinc Sulfate 220 Mg Capsule) 220 mg PO QAM [facility] Stop: 07/09/23 11:29 Last Admin: 06/10/23 08:03 Dose: 220 mg
--- NOTE | 2023-06-10 19:14 | Orthopedic Consultation ---
Date of Consultation June 10, 2023 Assessment & Plan (1) Charcot arthropathy of midfoot: Patient seen, evaluated, and treated. Reviewed Charcot arthropathy disease and active disease stages. I discussed and recommended out patient care and use of controlled ankle motion boot. I reviewed use of Charcot Restraint Orthopedic Walker ([place] Boot) Recommended use of mutli layer lower extremity compression as out Patient. No inpatient intervention planned. Will continue to follow while in house. Thank you for involving me in this Patient's care. (2) Charcot's joint of left foot: (3) Open leg wound: History of Present Illness Attending Physician: Mamie Castellanos, History of Present Illness Patient is a 37-year-old male seen for left foot charcot arthropathy disorder. History obtained from Patient and prior documentation. 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 Patient follows with [facility] who recommends use of controlled ankle motion boot for Charcot Arthropathy. He was referred for surgical consult in [place] for left foot reconstruction. He noted swelling to left lower extremity Saturday06/04/23 and presented to [facility] ED where Duplex US ruled out DVT. Patient was admitted for swelling and lower extremity non healing wounds. He is also having rash on extremities starting 3 weeks ago and progressive getting bigger with blistering and skin peeling on the extremities and in the groin region. He saw dermatology on May 31 advised to stop Bactrim which he takes for his transplant after checking with his transplant team. Patient states his transplant team is okay to hold Bactrim for now until cause of his rash is figured out. Biopsy of the rash was done results are pending but cultures are growing Enterobacter cloacae complex resistant to cefoxitin but susceptible to cefepime and Zosyn, intermediate to Levaquin but sensitive to ciprofloxacin. Dermatology gave him ciprofloxacin and advised to check with transplant team if they are okay with his Cipro. Allergies Allergy/AdvReac Type Severity Reaction Status Date / Time No Known Drug Allergies Allergy Unknown Verified 01/18/23 11:20 sulfamethoxazole Allergy Rash Verified 06/05/23 22:50 [From Bactrim] trimethoprim [From Bactrim] Allergy Rash Verified 06/05/23 22:50 Home Medications Medication Instructions Recorded Confirmed Type clonazepam 0.5 mg tablet 0.5 mg PO BID PRN Anxiety 11/03/18 06/04/23 History pregabalin 50 mg capsule (Lyrica) 50 mg PO TID #90 caps 03/14/21 06/04/23 Rx methadone 10 mg tablet 105 mg PO DAILY 10/20/22 06/04/23 History mycophenolate mofetil 250 mg 750 mg PO BID 10/20/22 06/04/23 History capsule rosuvastatin 10 mg tablet 10 mg PO DAILY 10/20/22 06/04/23 History sulfamethoxazole 400 1 tab PO .HOLD 10/20/22 06/04/23 History mg-trimethoprim 80 mg tablet carvedilol 6.25 mg tablet (Coreg) 6.25 mg PO BID #20 tabs 12/08/22 06/04/23 Rx aspirin 325 mg tablet 325 mg PO DAILY 12/19/22 06/04/23 History acetaminophen 500 mg tablet 1,000 mg PO Q6H PRN Pain 06/04/23 06/04/23 History (Tylenol Extra Strength) tacrolimus 1 mg capsule, 1 mg PO Q12H 06/05/23 06/05/23 History immediate-release Patient History Medical History Critical illness polyneuropathy Pulmonary edema Hyperglycemia Fever Long-term exposure involving bird droppings Acute hypoxemic respiratory failure Current vaping on some days Anxiety Anemia Substance abuse End stage renal disease on dialysis due to type 1 diabetes mellitus History of seizure seizure-like activity 02/14/2019 in setting of severe hyperglycemia (patient states he missed dialysis/insulin dose), DKA, confusion- lifeflighted to [place]/intubated/placed on ventilator. DKA managed with insulin drip on admission. EEG with no seizure activity noted. Neurology consulted and initially started patient on prophylactic Keppra but suspected seizure was complication of hyperglycemia and recommended weaning off anticonvulsants/advised no further neurology workup needed. Per patient, m edication/dialysis compliance since discharge with glucoses in the range on 100's-200's on self-checks. Peritonitis currently on intraperitoneal abx Hepatitis C Gastroparesis Withdrawal from opioids Diabetic retinopathy of both eyes Nephrotic syndrome Diabetes mellitus type I Hypertension Surgical History (Updated 06/05/23 @ 13:54 by Naeem Lou MD) Pancreas transplant status Renal transplant recipient H/O eye surgery Hx of tonsillectomy Hx of tooth extraction Hx of vitrectomy B/L; right vit[place] 05/26/18[place] [facility] dialysis catheter in place Family History Grandfather (Maternal) Diabetes Grandfather (Paternal) Diabetes Grandmother (Paternal) Diabetes Grandmother (Maternal) Diabetes Aunt Diabetes Uncle Diabetes Father Hypertension Brother Hypertension Social History Smoking Status: Never smoker Tobacco Type: Cigarettes Second Hand Exposure: No; Do You Dip or Chew Tobacco: Yes; Hx Alcohol Use: Yes Hx Substance Use: No Preferred Language: Greenlandic Communication Ability: Effective Communication Ability Comment: sedated, arouses easily Visual Impairment: Severely Limited Hearing Ability: Normal Embossed Or Impressed Lettering Painter Required: No Beliefs That Will Affect Care: None Current Living Situation: Alone Current Living Situation Comment: aide help throughout the week current occupational status: employed and unemployed Feels Safe at Home: Yes Childhood Exposure to Second-Hand Smoke: No Diet: regular Diet Comment: diabetic caffeine: Yes during the past year weight has: other Dental Care, Regularly: Yes Physical Activity Frequency: Daily Seatbelt Use: always Sunscreen Use: Yes Assistive Devices: Crutches Review of Systems Review of Systems: All systems reviewed & are unremarkable except as noted in HPI & below Physical Exam Constitutional: cooperative and comfortable Eyes: normal visual healy by confrontation Neck: normal visual inspection Respiratory: normal respiratory effort Cardiovascular: Rate/Rhythm: regular rate and regular rhythm Vessels: posterior tibial pulses present and dorsalis pedis pulses present Musculoskeletal: Extremities: + foot abnormality (Rocker bottom deformity) Left Skin: warm and dry, pink rash on left arm, scabbed over areas that are dark brown on bilateral knees with surrounding pink rash. Results & Data Vital Signs (Past 12 Hours) Vital Signs Temp Pulse Resp BP Pulse Ox O2 Del Method 06/10/23 15:04 36.9 C 76 16 117/79 92 Room Air Diagnostic Findings [place], [place] [phone] XRay Report Patient: PETR BULLARD Admit Date: 06/05/23 MR#: [id number] Address1: [address] Acct ID:[id number] Address2: Date: 1985 [facility] Zip: [place] [address] Age: 37 Location: 3N Sex: M Room/Bed: [facility] Att Phy: Mamie Castellanos DO Diagnosis: LEFT LOWER EXTREMITY CELLULITIS Shelley Phy: Ryan Leyva MD Service Date: 06/09/23 Fam Phy: Interpreting Phy: Jorge Simms MDAdmit Phy: Ruslan Lees MD Ordering Phy: Mamie Castellanos DO cc: ~ LEFT FOOT 3 VIEWS CLINICAL HISTORY: Left foot pain and swelling. Charcot foot. FINDINGS: 3 views of the left foot are compared to study dated 10/19/2022. The skeletal structures are osteopenic. No fracture is clearly identify. Degenerative change and sclerosis is seen throughout the midfoot consistent with the reported history of a Charcot foot. There is increasing bony fragmentation in the midfoot, greatest involving the navicular. This has significantly progressed as compared to 10/19/2022. Pes planus is observed. No erosive disease is seen to suggest osteomyelitis. Diffuse soft tissue edema is noted in the foot. There is atherosclerotic calcification of the regional arteries. IMPRESSION: 1. Soft tissue swelling with no acute fracture clearly identified. 2. Osteopenia and degenerative change as above consistent with the reported history of a Charcot foot. 3. There is increasing bony fragmentation in the midfoot, greatest involving the navicular. This has significantly progressed as compared to 10/19/2022. Electronically signed by: Jorge Simms M.D. 06/09/2023 7:57 PM Dictated: 06/09/231952 Transcribed: 06/09/231952 (3) Open leg wound Encounter type: initial encounter Laterality: bilateral Qualified Code(s): S81.801A - Unspecified open wound, right lower leg, initial encounter; S81.802A - Unspecified open wound, left lower leg, initial encounter
[2023-06-10] MEDS ORDERED: oxyCODONE HCL IR 5 MG TAB (IMMEDIATE RELEASE) PO PRN (19:49)
[2023-06-11] MEDS: ENOXAPARIN INJ 40 MG/0.4 ML SYR SQ SCH (05:04)
[2023-06-11] MEDS: CEFEPIME 2,000 MG in SYRINGE 0 ML IV SCH (05:04)
[2023-06-11 06:52] LABS: Hematocrit (blood only) 50.4 % (42.0-52.0); Hemoglobin 15.7 g/dl (14.0-18.0); Mean Corpuscular Hemoglobin 26.7 pg (25.0-34.0); Mean Corpuscular Hgb Conc 31.2 g/dL (32.0-36.0); Mean Corpuscular Volume 85.9 fL (80.0-100.0); Mean Platelet Volume 8.1 fL (9.4-12.4); Platelet Count 174 K/uL (130-400); RDW Coefficient of Variation 18.7 % (11.5-14.5); RDW Standard Deviation 55.8 fL (36.4-46.3); Red Blood Count 5.87 M/uL (4.70-6.10); White Blood Count 5.52 K/ul (4.8-10.8)
[2023-06-11 07:22] LABS: BUN Creatinine Ratio 20.9 (10-20); C Reactive Protein 3.21 mg/dl (0-0.5); Creatinine Clr Calc Pharmacy 119.1 ml/min; Est GFR (African American) 126.6 ml/min; Est GFR (Non-African American) 109.2 ml/min; Magnesium 1.3 mg/dl (1.7-2.4); Potassium 4.4 mmol/L (3.5-5.1)
[2023-06-11] MEDS ORDERED: VANCOMYCIN LEVEL ONE (07:30)
[2023-06-11] MEDS: VANCOMYCIN HCL 1,500 MG in SODIUM CHLORIDE 0.9% 500 ML IV SCH (08:14)
[2023-06-11] MEDS: carvediloL 6.25 MG TAB PO SCH ×2 (08:17→21:03)
[2023-06-11] MEDS: ZINC SULFATE 220 MG CAPSULE PO SCH (08:18)
[2023-06-11] MEDS: TACROLIMUS 1 MG CAP PO SCH (08:18)
[2023-06-11] MEDS: ASPIRIN 325 MG ECTAB PO SCH (08:18)
[2023-06-11] MEDS: MYCOPHENOLATE MOFETIL 250 MG CAP PO SCH ×2 (08:19→21:03)
[2023-06-11] MEDS: MAGNESIUM CHLORIDE W/CALCIUM 64MG DELAYED REL TAB PO SCH ×2 (08:19→21:03)
[2023-06-11] MEDS: ROSUVASTATIN CALCIUM 10 MG TAB PO SCH (08:20)
[2023-06-11] MEDS: PATIENT'S OWN CONTROLLED MED 2 PO SCH (08:20)
[2023-06-11] MEDS: PREGABALIN 50 MG CAP PO SCH ×3 (08:29→21:03)
[2023-06-11] MEDS: METHADONE ORAL SOLN 2 MG/ML PO SCH (08:29)
[2023-06-11] MEDS: cloNIDine HCL 0.1 MG TAB PO SCH ×2 (10:05→21:03)
--- NOTE | 2023-06-11 11:30 | Hospitalist Progress Note ---
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 Cellulitis of left leg/left arm Bacteremia Doppler is negative for DVT CT of left lower extremity-concern for cellulitis, venous stasis or lymphedema MRI RLE ordered consistent with cellulitis, no evidence of osteomyelitis Outpatient wound culture from L knee growing Enterobacter cloacae complex which is resistant to cefoxitin, gentamicin, tobramycin and Bactrim. Intermediate to Levaquin. Sensitive to ciprofloxacin, cefepime and Zosyn / blood culture growing coag neg staph not lugdunensis with resistance to methicillin on biofire Per ID ok to stop cefepime, recommend 2 weeks of total antibiotic therapy with IV Vanco - for ease of d/c planning will switch to daily Daptomycin repeat blood cultures negative after 48hrs, also recommends obtain echocardiogram which will be ordered CBC, CMP, mag in a.m. ESR/CRP 42 and 3.21 today Hypomagnesemia mag 1.3 replete 1g x 4 today repeat in a.m. Skin rash Affecting extremities and lower abdomen and groin Recently saw dermatology - discussed outpatient skin biopsy/path resulting today from 05/[address] Bautista of derm "Histologic findings are that of a necrolytic erythema, as can be seen with nutritional deficiencies. (added empiric zinc 06/09) However the history and clinical images have been reviewed and in this case suggests neck or lytic acral erythema associated with hepatitis C" Patient states he underwent Hep C treatment in 2019 and had difficulty findings in records. Per patient, completed through [facility] with Dr. Villa - records requested per HIM Per discussion with Dr. Bautista (derm) as well as Dr. Luo (ID)- ordered Hep C RNA with quant, viral hepatitis panel, zinc and cryoglobulin Renal function, hemoglobin remain at baseline. LFTs normal Holding Bactrim (outpatient culture resistant to Bactrim) No additional dermatologic treatment, per Dr. Bautista. Continue wound care as is Discussed case with [facility] nephro transplant provider construction laborer Dr. Landis (patient with h/o kidney and pancreas transplant in 2020, Dr. Hennessy) -Feels work up is appropriate and would not add anything additionally besides pending tacro trough as above -Available by cell this weekend for any further discussion or if patient develops evidence of organ dysfunction that may prompt discussion for transfer (Dr. Landis cell : [phone]) - pt will elevated tacro trough 21, have a call to [facility] contract administration coordinator will need derm f/u at D/C Bacteremia 2/4 bottles +[employer]BER not lugdenensis with PCR showing oxacillin resistance. Improving on vancomycin. Repeat blood cultures negative recommend 2 week course of antibiotic therapy will have US Guided IV placed Diabetic peripheral neuropathy with Charcot deformity MRI was performed on right lower extremity, but the swelling and pain is in the left lower extremity. XR left foot reveals increasing bony fragmentation in the midfoot, greatest involving the navicular. This has significantly progressed as compared to 10/19/2022. Podiatry consult placed-recommends conservative measures. Cont pain control efforts but hold off on steroids pending podiatry recs, [place] with ongoing infection. Pt is NWB on the left foot and uses crutches to get around. He cannot use a regular wheelchair and is waiting for approval for a motorized wheelchair. Scrotal edema 2/2 rash and LLE cellulitis as above Appreciate urological eval - no intervention needed. Recommend conservative management with scrotal elevation and ice as needed for scrotal edema Improving S/p renal transplant S/p pancreas transplant Continue transplant medications Bactrim currently held Tacro level high - 21.5 discussed with transplant pharmacist who states goal range is 4-6 or 6-8; recs are to hold tacrolimus until its less than 8. When less than 8 recs are to restart at 0.5mg bid and also call back to clinical transplant pharmacist at [phone] Chronic pain Continues home methadone Hyperlipidemia On statin will hold while on daptomycin Hypertension On Coreg, BP elevated today he states that he is also on clonidine 0.1mg bid but has not been taking in 2 weeks due to swelling and wanted to see if made a difference but it has not we will restart clonidine DVT prophylaxis: Lovenox Disposition: Will need IV antibiotics through 06/19/23, discussed with CM to determine if can be arranged as OP. will obtain PT/OT recs to see if pt would qualify for [facility] Full code A total of 75 was spent coordinating, documenting, and providing care for this patient excluding time spent in the performance of separately billed services. This included personally viewing all current laboratories and imaging studies, medication reconciliation, outpatient chart review, and discussion with specialists. Admission and Anticipated Discharge Date Admission Date: June 05, 2023 Supervising Physician Co-Signing Physician Notes I have seen and examined the patient and have discussed the case with the provider above. I agree with the assessment and plan as stated. Patient reports persistent pain in his left lower extremity despite oxycodone. We discussed adding Tylenol to his pain regimen to see if this helps. He is planning to see Dr. Mendez as outpatient for an Unna boot therapy. Continue to avoid weightbearing activity on this leg. He is currently awaiting drivable scooter as prescribed by his PCP. Staph epidermidis with resistance found in the blood improved/cleared by vancomycin. Per ID recommendations we will gregg nue on vancomycin as noted above. For ease of use will likely switch to daptomycin as this is given once daily. Agree with plan for placement of line and echo to rule out any vegetations given gram-positive organism in the blood. Likely DC to home once home health is able to be set up for IV antibiotic infusions. DO Gildardo Castellanos Pt was seen and examined in room 381-1. Follow up cellulitis. He feels well and is asking about discharge plans. He is also asking if his hepatitis labs returned yet. He has a good appetite and is moving bowels. Continues to have L foot/leg pain. He denies f/c/s, chest pain, sob, n/v/d. Review of Systems Review of Systems: All systems reviewed & are unremarkable except as noted in HPI & below Physical Exam Physical Exam: Gen: WD/WN, NAD, A&O x3 HEENT: Normocephalic, atraumatic, conjunctivae moist, sclerae anicteric, mucous membranes moist. Lung: Clear to Auscultation bilaterally, no wheezes/rales/rhonchi Heart: Regular rate, regular rhythm, no murmurs, rubs, or gallops Abdomen: Soft, NT, ND +BS x 4 Extremities: b/l venous stasis changes, LUE volar surface and b/l lower ext anterior surfaces with multiple plaques/scabs, erythema Skin: Warm, no rash, negative turgor. Results & Data Results & Data Vital Signs (Past 12 Hours) Vital Signs Temp Pulse Resp BP Pulse Ox O2 Del Method 06/11/23 08:30 Room Air 06/11/23 07:49 36.7 C 86 18 145/87 H 94 Room Air Diagnostic Findings Short CBC 06/11/23 Range/Units 06:33 WBC 5.52 (4.8-10.8) K/ul Hgb 15.7 (14.0-18.0) g/dl Hct 50.4 (42.0-52.0) % Plt Count 174 (130-400) K/uL BMP 06/11/23 06:33 Sodium 138 Potassium 4.4 Chloride 107 Carbon Dioxide 24 BUN 18 Creatinine 0.86 Glucose 77 Calcium 9.0 I have independently reviewed and interpreted patient's labs including CBC, BMP, CRP, ESR, Mag, random vanc. Medications Administered Current Inpatient Medications Acetaminophen (Acetaminophen 325 Mg Tab) 650 mg PO Q4H PRN PRN Reason: pain/fever Stop: 07/05/23 02:07 Aspirin (Aspirin 325 Mg Ectab) 325 mg PO DAILY AYESHA Stop: 07/05/23 08:59 Last Admin: 06/11/23 08:18 Dose: 325 mg Carvedilol (Carvedilol 6.25 Mg Tab) 6.25 mg PO BID AYESHA Stop: 07/05/23 08:59 Last Admin: 06/11/23 08:17 Dose: 6.25 mg Clonazepam (Clonazepam 0.5 Mg Tab) 0.5 mg PO BID PRN PRN Reason: Anxiety Stop: 07/05/23 02:07 Last Admin: 06/08/23 20:11 Dose: 0.5 mg Clonidine HCl (Clonidine Hcl 0.1 Mg Tab) 0.1 mg PO BID AYESHA Stop: 07/11/23 09:29 Last Admin: 06/11/23 10:05 Dose: 0.1 mg Dextrose (Dextrose 50% 50 Ml Syringe) 25 - 50 ml IV UD PRN; Protocol PRN Reason: Hypoglycemia Protocol Stop: 07/05/23 07:46 Enoxaparin Sodium (Enoxaparin Inj 40 Mg/0.4 Ml Syr) 40 mg SQ Q24H AYESHA Stop: 07/05/23 05:59 Last Admin: 06/11/23 05:04 Dose: 40 mg Glucagon (Glucagon For Inj 1 Mg Vial) 1 mg SQ UD PRN; Protocol PRN Reason: Hypoglycemia Protocol Stop: 07/05/23 07:46 Glucose (Glucose 10 Tab/Tube) 4 - 8 tab PO UD PRN; Protocol PRN Reason: Hypoglycemia Treatment Stop: 07/05/23 07:46 Glucose (Glucose 40% Gel 15 Gm Tube) 15 - 30 gm PO UD PRN; Protocol PRN Reason: Hypoglycemia Protocol Stop: 07/05/23 07:46 Cefepime HCl 2,000 mg/ Syringe 20 mls @ 5 mls/min IV Q12H AYESHA; Protocol Stop: 06/12/23 03:59 Last Admin: 06/11/23 05:04 Dose: 5 mls/min Vancomycin HCl 1,500 mg/ (Sodium Chloride) 530 mls @ 200 mls/hr IV Q12H AYESHA Stop: 06/11/23 19:59 Last Admin: 06/11/23 08:14 Dose: 200 mls/hr Magnesium Sulfate/Dextrose (Magnesium Sulfate / D5w) 1 gm in 100 mls @ 50 mls/hr IV Q2H AYESHA Stop: 06/11/23 17:29 Magnesium Chloride (Magnesium Chloride W/Calcium 64mg Delayed Rel Tab) 64 mg PO BID AYESHA Stop: 07/08/23 11:29 Last Admin: 06/11/23 08:19 Dose: 64 mg Methadone HCl (Methadone Oral Soln 2 Mg/Ml) 105 mg PO DAILY AYESHA Stop: 06/19/23 08:59 Last Admin: 06/11/23 08:29 Dose: 105 mg Miscellaneous (Carbohydrates For Hypoglycemia ) 15 - 30 gm PO UD PRN PRN Reason: Hypoglycemia Protocol Stop: 07/05/23 07:46 Miscellaneous Information (Vancomycin Consult Active) 1 each N/A UD PRN PRN Reason: Consult Stop: 07/05/23 15:31 Mycophenolate Mofetil (Mycophenolate Mofetil 250 Mg Cap) 750 mg PO BID AYESHA Stop: 07/05/23 08:59 Last Admin: 06/11/23 08:19 Dose: 750 mg Non-Formulary Medication (Patient's Own Controlled Med 2) 1 each PO DAILY [facility] Stop: 06/20/23 08:59 Last Admin: 06/11/23 08:20 Dose: Not Given Oxycodone HCl (Oxycodone Hcl Ir 5 Mg Tab (Immediate Release)) 7.5 mg PO Q12 PRN PRN Reason: Mod-Sev Pain (Scale 4-10) Stop: 06/19/23 02:07 Last Admin: 06/11/23 02:29 Dose: 7.5 mg Pregabalin (Pregabalin 50 Mg Cap) 50 mg PO TID [facility] Stop: 07/05/23 08:59 Last Admin: 06/11/23 08:29 Dose: 50 mg Rosuvastatin Calcium (Rosuvastatin Calcium 10 Mg Tab) 10 mg PO DAILY [facility] Stop: 07/05/23 08:59 Last Admin: 06/11/23 08:20 Dose: 10 mg Tacrolimus (Tacrolimus 1 Mg Cap) 1 mg PO Q12H [facility] Stop: 07/05/23 08:59 Last Admin: 06/11/23 08:18 Dose: 1 mg Zinc Sulfate (Zinc Sulfate 220 Mg Capsule) 220 mg PO QAM [facility] Stop: 07/09/23 11:29 Last Admin: 06/11/23 08:18 Dose: 220 mg
[2023-06-11 11:52] LABS: % Cryocrit DNR
[2023-06-11] MEDS: MAGNESIUM SULFATE / D5W 1 GM/100 ML BAG IV SCH ×4 (12:20→17:27)
[2023-06-11] MEDS ORDERED: DAPTOmycin 450 MG in SYRINGE 0 ML IV SCH (18:00)
[2023-06-11] MEDS: ACETAMINOPHEN 500 MG TAB PO SCH (19:16)
[2023-06-12] MEDS: ACETAMINOPHEN 500 MG TAB PO SCH ×2 (05:40→13:45)
[2023-06-12] MEDS: ENOXAPARIN INJ 40 MG/0.4 ML SYR SQ SCH (05:41)
[2023-06-12] MEDS: MYCOPHENOLATE MOFETIL 250 MG CAP PO SCH (08:00)
[2023-06-12] MEDS: cloNIDine HCL 0.1 MG TAB PO SCH (08:01)
[2023-06-12] MEDS: MAGNESIUM CHLORIDE W/CALCIUM 64MG DELAYED REL TAB PO SCH (08:01)
[2023-06-12] MEDS: ASPIRIN 325 MG ECTAB PO SCH (08:01)
[2023-06-12] MEDS: carvediloL 6.25 MG TAB PO SCH (08:01)
[2023-06-12] MEDS: ZINC SULFATE 220 MG CAPSULE PO SCH (08:02)
[2023-06-12 08:06] LABS: Hematocrit (blood only) 48.7 % (42.0-52.0); Hemoglobin 15.1 g/dl (14.0-18.0); Mean Corpuscular Hemoglobin 26.6 pg (25.0-34.0); Mean Corpuscular Volume 85.9 fL (80.0-100.0); Mean Platelet Volume 8.4 fL (9.4-12.4); Platelet Count 179 K/uL (130-400); RDW Coefficient of Variation 18.6 % (11.5-14.5); RDW Standard Deviation 56.2 fL (36.4-46.3); Red Blood Count 5.67 M/uL (4.70-6.10); White Blood Count 4.25 K/ul (4.8-10.8)
[2023-06-12] MEDS: PREGABALIN 50 MG CAP PO SCH ×2 (08:08→13:46)
[2023-06-12] MEDS: PATIENT'S OWN CONTROLLED MED 2 PO SCH (08:09)
[2023-06-12] MEDS: METHADONE ORAL SOLN 2 MG/ML PO SCH (08:09)
[2023-06-12 08:22] LABS: Albumin Globulin Ratio 1.1 (0.9-2); BUN Creatinine Ratio 21.7 (10-20); Bilirubin,Total 0.6 mg/dl (0.2-1.0); Calcium 9.1 mg/dl (8.6-10.3); Creatinine Clr Calc Pharmacy 123.4 ml/min; Est GFR (African American) 128.5 ml/min; Est GFR (Non-African American) 110.8 ml/min; Globulin 2.7 gm/dl (2.5-4.0); Magnesium 1.7 mg/dl (1.7-2.4); Potassium 4.1 mmol/L (3.5-5.1); Total Protein 5.7 gm/dl (6.0-8.3)
[2023-06-12] MEDS: clonazePAM 0.5 MG TAB PO PRN (10:25)
--- NOTE | 2023-06-12 11:06 | Discharge Summary ---
Discharge Summary Date of Service June 12, 2023 Notes For Next Care Provider Pt admitted for cellulitis of LLE and L forearm. Blood cultures positive for coag negative staph with biofire showing methicillin resistance. Infectious disease recommends 2 weeks of IV antibiotics. He will complete IV Daptomycin on 06/19/23. Pending labs need followed up on including: Hepatitis panel, zinc level, cryoglobulins and tacrolimus level. We did reach out to transplant team and they are going to be following his tacrolimus level as an outpatient. It was noted to be elevated while in the hospital and has been on hold. He continues to resume his CellCept. He has been following with dermatology regarding rash. On 05/31 prior to hospitalization he did have biopsy which showed Necrolytic erythema. Cellulitis has improved but rash has not. He will need close dermatology follow up. He will need weekly labs CBC, CMP, CK while on Daptomycin. Medication Changes From Visit HOLD Tacrolimus - please continue to hold this medication until your transplant team instructs you otherwise based on your tacrolimus levels Bactrim - please continue to hold this and discuss with your transplant team regarding resuming Rosuvastatin - please hold this medication until 06/20/23. You may resume when you are off your IV antibiotics. NEW Daptomycin 450mg IV daily through 06/19/23. Zinc 220mg once daily Recommend utilizing tylenol 650mg every 6 hrs as needed for pain Continue all other medications as prescribed. Admission HPI Per Admitting Provider 37-year-old male with past med significant for diabetic Charcot foot, patient is supposed to be on wheelchair but currently using crutches to walk short dis tances, hypertension history of type 1 diabetes status post pancreas transplant, s/p kidney transplant, hepatitis C virus infection cured after antibiotic viral drug therapy, generalized anxiety disorder, history of drug abuse, on methadone lives alone comes because of left lower extremity cellulitis. Patient states he noticed swelling in left leg last Saturday but got progressively worse and campos ving a lot of pain. States might of fever yesterday. Not able to put any weight on the leg. He is also having rash started on left arm 3 weeks ago and progressive getting bigger with blistering and skin peeling on the extremities and in the groin region. He saw dermatology on May 31 advised to stop Bactrim which he takes for his transplant after checking with his transplant team. Patient states his transplant team is okay to hold Bactrim for now until cause of his rash is figured out. Biopsy of the rash was done results are pending but cultures are growing Enterobacter cloacae complex resistant to cefoxitin but susceptible to cefepime and Zosyn, intermediate to Levaquin but sensitive to ciprofloxacin. Dermatology gave him ciprofloxacin and advised to check with transplant team if they are okay with his Cipro. Currently hemodynamically stable. Denies any headache. No cough. No runny nose. No chest pain or shortness of breath. No nausea. No abdominal pain. Bowels and bladder are moving okay.. Past medical history. As mentioned above. Past surgical history. Will. Return dialysis. S/p pancreas transplant. S/p kidney transplant. Partial removal of right eye fluid. Tonsillectomy. Surgical removal of erupted tooth. Social history. Snuff tobacco. No alcohol use. No drug use. Family history. Brother has hypertension. Father has hypertension. Lung c ancer. Mother from urosepsis. Diabetes in the family. Admission Exam Per Admitting Provider General- Not in distress Head- atraumatic Eyes- PERRL, EOMI. ENT- oropharynx clear Neck- supple, no JVD. Lungs- clear to auscultation no wheezing or crackles. Heart- regular rhythm; no murmur, no gallop. Abdomen- normal bowel sounds, soft, nontender, no distension. Extremities- left lower extremity swollen and erythematous. Neuro- alert, oriented x 3; , EOMI; no facial palsy; no dysarthria; moves extremities. 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 Cellulitis of left leg/left arm Bacteremia Doppler is negative for DVT CT of left lower extremity-concern for cellulitis, venous stasis or lymphedema MRI RLE ordered consistent with cellulitis, no evidence of osteomyelitis 2/4 blood culture growing coag neg staph not lugdunensis with resistance to methicillin on biofire started on IV Vanco and cefepime on admission Per ID ok to stop cefepime, recommend 2 weeks of total antibiotic therapy with IV Vanco - for ease of d/c planning will switch to daily Daptomycin through 06/19/23 via US guided midline CK on 06/11/23 was normal, will do weekly labs while on antibiotics repeat blood cultures negative after 48hrs Echo negative for valvular disease, preserved EF Hypomagnesemia repleted, 1.7 day of discharge Skin rash Affecting extremities and lower abdomen and groin Recently saw dermatology - discussed outpatient skin biopsy/path resulting today from 05/[address] Bautista of derm "Histologic findings are that of a necrolytic erythema, as can be seen with nutritional deficiencies. (added empiric zinc 06/09) However the history and clinical images have been reviewed and in this case suggests neck or lytic acral erythema associated with hepatitis C" Patient states he underwent Hep C treatment in 2019 and had difficulty findings in records. Per patient, completed through [facility] with Dr. Villa - records requested per HIM Per discussion with Dr. Bautista (derm) as well as Dr. Lou (ID)- ordered Hep C RNA with quant, viral hepatitis panel, zinc and cryoglobulin Renal function, hemoglobin remain at baseline. LFTs normal Holding Bactrim (outpatient culture resistant to Bactrim) - defer to transplant team regarding resumption of med No additional dermatologic treatment, per Dr. Bautista. Continue wound care as is Discussed case with [facility] nephro transplant provider director of extension work Dr. Landis (patient with h/o kidney and pancreas transplant in 2020, Dr. Hennessy) -Feels work up is appropriate and would not add anything additionally besides pending tacro trough as above -Available by cell this weekend for any further discussion or if patient develops evidence of organ dysfunction that may prompt discussion for transfer (Dr. 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 Improving on vancomycin. Repeat blood cultures negative will continue IV daptomycin 450mg daily through 06/19/23 Diabetic peripheral neuropathy with Charcot deformity MRI was performed on right lower extremity, but the swelling and pain is in the left lower extremity. XR left foot reveals increasing bony fragmentation in the midfoot, greatest involving the navicular. This has significantly progressed as compared to . Podiatry consult placed-recommends conservative measures. Cont pain control efforts but hold off on steroids pending podiatry recs, payton with ongoing infection. Pt is NWB on the left foot and uses crutches to get around. He cannot use a regular wheelchair and is waiting for approval for a motorized wheelchair. recommend outpatient podiatry follow up Scrotal edema 2/2 rash and LLE cellulitis as above Appreciate urological eval - no intervention needed. Recommend conservative management with scrotal elevation and ice as needed for scrotal edema Improving S/p renal transplant S/p pancreas transplant Continue transplant medications Bactrim currently held Tacro level high - 21.5 discussed with transplant pharmacist who states goal range is 4-6 or 6-8; recs are to hold tacrolimus until its less than 8. When less than 8 recs are to restart at 0.5mg bid and also call back to clinical transplant pharmacist at [phone] Patient discussed with his logistics coordinator and he is going to have tacrolimus levels 06/13 and 06/15 as outpatient. They will follow up on this and in meant time he will continue to hold tacrolimus Chronic pain Continues home methadone Hyperlipidemia On statin will hold while on daptomycin Hypertension chronic, stable continue coreg, clonidine Pt medically stable for discharge. Appropriate scripts written. He will d/c to home with HH and IV antibiotics through 06/19/23. He will f/u with PCP, DERM and close follow up with transplant team regarding tacrolimus levels. CBC, CMP, mag reviewed on day of discharge and stable. Discharge Exam Gen: WD/WN, NAD, A&O x3 HEENT: Normocephalic, atraumatic, conjunctivae moist, sclerae anicteric, mucous membranes moist. Lung: Clear to Auscultation bilaterally, no wheezes/rales/rhonchi Heart: Regular rate, regular rhythm, no murmurs, rubs, or gallops Abdomen: Soft, NT, ND +BS x 4 Extremities: b/l venous stasis changes, LUE volar surface and b/l lower ext ant erior surfaces with multiple plaques/scabs, erythema Skin: Warm, no rash, negative turgor. Updated Medication List Medication Instructions Recorded Confirmed Type clonazepam 0.5 mg tablet 0.5 mg PO BID PRN Anxiety 11/03/18 06/04/23 History pregabalin 50 mg capsule (Lyrica) 50 mg PO TID #90 caps 03/14/21 06/04/23 Rx methadone 10 mg tablet 105 mg PO DAILY 10/20/22 06/04/23 History mycophenolate mofetil 250 mg 750 mg PO BID 10/20/22 06/04/23 History capsule rosuvastatin 10 mg tablet 10 mg PO DAILY 10/20/22 06/04/23 History sulfamethoxazole 400 1 tab PO .HOLD 10/20/22 06/04/23 History mg-trimethoprim 80 mg tablet carvedilol 6.25 mg tablet (Coreg) 6.25 mg PO BID #20 tabs 12/08/22 06/04/23 Rx aspirin 325 mg tablet 325 mg PO DAILY 12/19/22 06/04/23 History acetaminophen 500 mg tablet 1,000 mg PO Q6H PRN Pain 06/04/23 06/04/23 History (Tylenol Extra Strength) tacrolimus 1 mg capsule, 1 mg PO Q12H 06/05/23 06/05/23 History immediate-release clonidine HCl 0.1 mg tablet 0.1 mg PO BID 06/11/23 06/11/23 History zinc sulfate 50 mg zinc (220 mg) 220 mg (4.4 x 50 mg zinc (220 mg)) 06/12/23 Rx capsule (Orazinc) PO QAM #30 caps Hospital Stay Data Consultations 06/04/23 22:46 ED Decision to Admit Stat 06/05/23 08:53 Consult Infectious Diseases Routine 06/06/23 18:19 Consult Urology Routine 06/07/23 17:20 HIM [Consult Health Information Management] Stat 06/09/23 18:45 Consult Podiatry Routine Diagnostic Imagining Performed Venous Doppler Study 06/04/23 15:04 ULTRASOUND LEFT LOWER EXTREMITY VENOUS CLINICAL HISTORY: Left leg pain and swelling. COMPARISON STUDY: Bilateral lower extremity venous ultrasound dated 12/08/2022. TECHNIQUE: Real-time, grayscale, and color Doppler sonography of the deep veins of the left lower extremity was performed from the inguinal crease to the calf. Compression and augmentation were utilized. FINDINGS: There is no sonographic evidence of deep venous thrombosis identified in the left lower extremity. The common femoral, superficial femoral, and popliteal veins are patent and normally compressible. The greater saphenous vein and the profunda femoris vein at the junction with the common femoral vein are clear. The visualized calf veins are patent. IMPRESSION: There is no sonographic evidence of deep venous thrombosis identified in the left lower extremity. ACT 112: Negative or not required by law. Electronically signed by: Jorge Simms M.D. 06/04/2023 4:[address] 06/05/23 05:47 CT tib/fib LT wo con HISTORY: 37 years-old Male LEFT LEG EDEMA. CELLULITIS. ANY ABSCESS. Acute pain and swelling of the left lower extremity COMPARISON: Duplex venous Doppler study 06/04/2023, left foot radiographs 10/19/2022. TECHNIQUE: Multiple axial CT images of the left tibia and fibula were obtained without the use of IV contrast. A dose lowering technique was used consistent with the principals of ALARA. FINDINGS: There is moderate diffuse subcutaneous edema with skin thickening. A few small cutaneous defects are noted within the lower leg. No discrete fluid collections. There is mild to moderate fatty atrophy of the musculature with intramuscular edema and arterial calcifications. Partially imaged bony fragmentation/erosions within the midfoot and hindfoot with periarticular debris. No acute fracture, dislocation or osseous erosion identified within the tibia or fibula. IMPRESSION: 1. Partially imaged finding suggestive of Charcot neuropathy within the hindfoot and midfoot. 2. Skin thickening with subcutaneous and deep tissue edema. Differential considerations would include cellulitis, venous stasis or lymphedema. 3. No fluid collections. 4. Age advanced arterial calcifications. ACT 112: Negative or not required by law. The above report was generated using voice recognition software. It may contain grammatical, syntax or spelling errors. Electronically signed by: Luis Daniels M.D. 06/05/2023 7:38 AM Lower Extremity MRI 06/05/23 15:27 Exam(s): MRI EXTREMITY Without Contrast EXAM: MR Left Lower Extremity Without Intravenous Contrast, Tibia and Fibula CLINICAL HISTORY: Reason for exam: r/o osteomyelitis. TECHNIQUE: Multiplanar magnetic resonance images of the left tibia and fibula without intravenous contrast. COMPARISON: CT left tibia-fibula, 06/05/23 FINDINGS: There is circumferential subcutaneous edema of the leg suggesting cellulitis. There is no evidence of deep fascial edema. There are no fluid collections. There is mild fatty atrophy of the calf musculature. There are no bone marrow signal abnormalities to suggest osteomyelitis. There are no acute fractures. IMPRESSION: Cellulitis. No evidence of osteomyelitis. Electronically signed by: Greg Varela M.D. 06/06/23 00:40 AM Foot X-Ray 06/09/23 18:45 LEFT FOOT 3 VIEWS CLINICAL HISTORY: Left foot pain and swelling. Charcot foot. FINDINGS: 3 views of the left foot are compared to study dated 10/19/2022. The skeletal structures are osteopenic. No fracture is clearly identify. Degenerative change and sclerosis is seen throughout the midfoot consistent with the reported history of a Charcot foot. There is increasing bony fragmentation in the midfoot, greatest involving the navicular. This has significantly progressed as compared to 10/19/2022. Pes planus is observed. No erosive disease is seen to suggest osteomyelitis. Diffuse soft tissue edema is noted in the foot. There is atherosclerotic calcification of the regional arteries. IMPRESSION: 1. Soft tissue swelling with no acute fracture clearly identified. 2. Osteopenia and degenerative change as above consistent with the reported history of a Charcot foot. 3. There is increasing bony fragmentation in the midfoot, greatest involving the navicular. This has significantly progressed as compared to 10/19/2022. Electronically signed by: Jorge Simms M.D. 06/09/2023 7:57 PM Ankle X-Ray 06/09/23 18:46 LEFT ANKLE 2 VIEWS CLINICAL HISTORY: Left ankle pain and swelling FINDINGS: AP and lateral views of the left ankle are correlated with CT scan of the left tibia and fibula dated 06/05/2023. The skeletal structures are osteopenic. No acute fracture is seen at the ankle joint. Ankle mortise is intact. There is no ankle joint effusion. Bony fragmentation is seen in the visualized midfoot, greatest involving the navicular. This is consistent with the reported history of a Charcot foot. Diffuse soft tissue edema is noted. There is atherosclerotic calcification of the regional arteries. IMPRESSION: 1. Soft tissue swelling with no acute fracture seen at the ankle joint. 2. Osteopenia and degenerative change as above. This is similar to the 06/05/2023 CT examination. Electronically signed by: Jorge Simms M.D. 06/09/2023 8:00 PM Pending Results Patient Have Any Pending Studies at Discharge: Yes Discharge Instructions Given to Patient (Per Discharging Provider) MEDICATION CHANGES: HOLD Tacrolimus - please continue to hold this medication until your transplant team instructs you otherwise based on your tacrolimus levels Bactrim - please continue to hold this and discuss with your transplant team regarding resuming Rosuvastatin - please hold this medication until 06/20/23. You may resume when you are off your IV antibiotics. NEW Daptomycin 450mg IV daily through 06/19/23. Zinc 220mg once daily Recommend utilizing tylenol 650mg every 6 hrs as needed for pain Continue all other medications as prescribed. PENDING TEST RESULTS: Hepatitis Panel Zinc Level Tacrolimus Level Cryoglobulin Please follow up with your primary care provider for these results RECOMMENDATIONS FOR FOLLOW-UP: Please follow-up with your primary care provider as scheduled. Please follow-up with dermatology as scheduled for continued care regarding your rash. Recommend utilizing topical Vaseline or Neosporin to open areas of your rash and limit itching. Itching will increase your risk for infection. Recommend utilizing [id number] Benadryl cream for itching. Please follow up with your transplant team and continue to get tacrolimus levels until it comes down. They will instruct your regarding dosing of your tacrolimus and when it is safe to resume. Continue to be non weight bearing to L foot. Please follow up with Podatiary regarding your foot. Your Primary care provider can arrange this. OTHER INSTRUCTIONS: Seek medical attention if you have: * temperature above 101 * chest pain or trouble breathing * abdominal pain, nausea, vomiting * diarrhea, dark stools or bloody stools * any unanswered questions or concerns Call 911 if symptoms are severe. Please take good care of yourself. It has been a pleasure taking care of you. Please take care of yourself. If you have any questions regarding your recent hospitalization please contact [facility] and request Stephen Rosinaist @ [phone]. Renetta Burnett PA-C Total Time Total Time Spent Total Time Spent (In Minutes): 50 minutes Supervising Physician Co-Signing Physician Notes I have seen and examined the patient and have discussed the case with the provider above. I agree with the assessment and plan as stated. Patient will need to finish IV antibiotics as prescribed and follow up with his outpt provid ers - primary care physician, transplant center team dermatology, podiatry. MD [facility] Home Health Attestation I certify that this patient is under my care and that I, or a physicians assistant press operator working with me, had a face to-face encounter that meets the home health [id number] encounter requirements with this patient. The encounter with the patient was in whole, or in part, for the following medical condition, which is the primary reason for home health care (list medical condition): LLE cellulitis , bactermia I certify that, based on my findings, the following services are medically necessary home health services: My clinical findings support the need for the above services because: Skilled Nsg Assessment Further, I certify that my clinical findings support that this patient is homebound (i.e. absences from home require considerable and taxing effort and are for medical reasons or orthodox services or infrequently or of short duration when for other reasons) because: Supportive Aid - Crutches Transportation Assistance/Unable to Leave Home Unassisted Certification for Home Health Services: Based on the above findings, I certify that this patient is confined to the home and needs intermittent longterm care, physical therapy and/or speech therapy or continues to need occupational therapy. The patient is under my care, and I have initiated the establishment of the plan of care. This patient will be followed by a physician who will periodically review the plan of care.
[2023-06-12] MEDS ORDERED: DAPTOmycin 450 MG in SYRINGE 0 ML IV ONE (14:00)
[2023-06-12 20:07] LABS: HBSAG NON-REACTIVE (NON-REACTIVE); Hepatitis A Antibody IgM NON-REACTIVE (NON-REACTIVE); Hepatitis B Core Antibody IgM NON-REACTIVE (NON-REACTIVE)
[2023-06-13 06:02] LABS: Hepatitis C Vira RNA (Log) PCR <1.18 NOT DETECTED Log IU/mL (NOT DETECTED); Hepatitis C Viral RNA by PCR <15 NOT DETECTED IU/mL (NOT DETECTED); Zinc 46 mcg/dL (60-130)
[2023-06-13] MEDS ORDERED: DAPTOmycin 450 MG in SYRINGE 0 ML IV SCH ×2 (07:30→11:00)
[2023-06-13 12:53] LABS: Hepatitis C Vira RNA (Log) PCR <1.18 NOT DETECTED Log IU/mL (NOT DETECTED); Hepatitis C Viral RNA by PCR <15 NOT DETECTED IU/mL (NOT DETECTED)
== END 2023-06-12 15:33 | disposition home health service (06) | DRG 602 ==
LOC: ED 14:38 → EDINP 06-05 02:00 → SUATTDRO 06-05 02:00 → 3N 06-05 02:08

== ENCOUNTER 2023-09-18 14:22 | Inpatient (IN) ==
--- NOTE | 2023-09-18 14:41 | ED Triage Note ---
Date of Service September 18, 2023 Provider in Triage Author: Kathi Smyth History of Present Illness This patient was briefly evaluated while in triage. An abbreviated physical exam was performed. This patient is a 37-year-old Male who presents to the ED for evaluation of a left foot infection. He reports he has Charcot disease. He started developing some swelling and a fever a few days ago. He was seen at [facility] and states they were going to admit him but sent him home. He states the swelling is worsening. Physical Exam GENERAL: Chronically unwell appearing HEENT: Pupils equal. No obvious scleral icterus. NEURO: Alert and oriented. No obvious neurological deficits on quick neuro exam. EXTREMITIES: Left foot is edematous and erythematous. Initial orders for labs and / or imaging were placed and patient was placed in the waiting area until a bed is available. Please see further documentation for the full ED course.
[2023-09-18 15:44] LABS: Base Excess VBG -3.7 mEq/L; Basophils # (auto) 0.02 K/uL (0.00-0.20); Basophils % (auto) 0.2 %; Eosinophils # (auto) 0.14 K/uL (0.00-0.50); Eosinophils % (auto) 1.1 %; HCO3 VBG 22 mmol/L; Hematocrit (blood only) 42.8 % (42.0-52.0); Hemoglobin 13.7 g/dl (14.0-18.0); Immature Granulocytes # (auto) 0.08 K/uL (0.01-0.20); Immature Granulocytes % (auto) 0.6 %; Lymphocytes # (auto) 1.16 K/uL (1.20-3.40); Lymphocytes % (auto) 9.1 %; Mean Corpuscular Hemoglobin 24.2 pg (25.0-34.0); Mean Corpuscular Volume 75.6 fL (80.0-100.0); Mean Platelet Volume 8.4 fL (9.4-12.4); Monocytes # (auto) 1.65 K/uL (0.11-0.59); Monocytes % (auto) 12.9 %; Neutrophils # (auto) 9.72 K/uL (1.40-6.50); Neutrophils % (auto) 76.1 %; PCO2 VBG 42 mmHg (38-50); PO2 VBG 61 mmHg; Platelet Count 264 K/uL (130-400); RDW Coefficient of Variation 16.3 % (11.5-14.5); RDW Standard Deviation 43.7 fL (36.4-46.3); Red Blood Count 5.66 M/uL (4.70-6.10); White Blood Count 12.77 K/ul (4.8-10.8); pH VBG 7.33 (7.36-7.41)
--- NOTE | 2023-09-18 15:59 | XRay Report ---
XR chest 1V portable HISTORY: Sepsis COMPARISON: Chest 10/19/2022. FINDINGS: No pneumothorax. No pleural effusions. The cardiac silhouette remains mildly enlarged. Ther e is mild central pulmonary vascular congestion without overt edema. No new focal lung consolidations to suggest a pneumonia. No acute fractures. There is a vascular stent seen within the left upper ext remity. IMPRESSION: Cardiomegaly and mild congestive change. This is similar to the prior study. ACT 112: Negative or not required by law. Electronically signed by: Mookie Velazquez M.D. 09/18/2023 3:58 PM
[2023-09-18 16:04] LABS: Albumin Level 3.2 gm/dl (3.4-5.0); BUN Creatinine Ratio 25.7 (10-20); Bilirubin Direct 0.7 mg/dl (0-0.2); Bilirubin,Total 1.2 mg/dl (0.2-1.0); Calcium 9.7 mg/dl (8.6-10.3); Creatinine Clr Calc Pharmacy 83.4 ml/min; Est GFR (African American) 75.4 ml/min; Est GFR (Non-African American) 65.1 ml/min; Magnesium 1.7 mg/dl (1.7-2.4); Total Protein 6.4 gm/dl (6.0-8.3)
[2023-09-18 16:09] LABS: Troponin I High Sensitivity 12.8 pg/ml (0-20)
[2023-09-18 16:13] LABS: Partial Thromboplastin Ratio 1.2; Partial Thromboplastin Time 35 Seconds (21-31)
[2023-09-18] MEDS: PIPERACILLIN/TAZOBACTAM 4.5 GM/100 ML BAG IV ONE (16:16)
--- NOTE | 2023-09-18 16:32 | XRay Report ---
XR foot LT 2V CLINICAL HISTORY: erythema and swelling; r/o free air COMPARISON: Left foot radiographs June 09, 2023. FINDINGS: Exam is compromised given difficulty positioning. Diffuse soft tissue swelling of the left foot is present. No radiographic evidence for soft tissue gas. Markedly abnormal appearance of the m idfoot has mildly progressed since prior exam with bony fragmentation and collapse, including disrupt ion of the talonavicular articulation. Moderate vascular calcification is present. No definite acute bony erosions are identified. IMPRESSION: 1. No radiographic evidence for soft tissue gas within the left foot. Diffuse soft tissue swelling, i ncreased since prior exam. 2. Progressive bony fragmentation and collapse of the left midfoot when compared to radiographs of [facility] 2022. The findings suggest neuropathic arthropathy. 3. Exam compromised given difficulty positioning. ACT 112: Negative or not required by law. Electronically signed by: Yves Kilgore M.D. 09/18/2023 4:31 PM
--- NOTE | 2023-09-18 17:51 | Ultrasound Report ---
LEFT LOWER EXTREMITY VENOUS DOPPLER HISTORY: discolored, painful foot COMPARISON STUDY: None. FINDINGS: The left common femoral, superficial femoral, popliteal, posterior tibial, peroneal veins a re patent. There is thrombus identified within one of 2 peroneal veins. Mild left inguinal lymphadeno jose guadalupe is noted. This may be reactive. IMPRESSION: 1. Thrombus within one of 2 left peroneal veins consistent with a DVT. 2. Mild left inguinal lymphadenopathy. This may be reactive. ACT 112: Negative or not required by law. Electronically signed by: Mookie Velazquez M.D. 09/18/2023 5:49 PM
--- NOTE | 2023-09-18 18:31 | Emergency Department Note ---
Impression & Plan Sepsis, Cellulitis of left lower extremity, Elevated procalcitonin, Acute deep vein thrombosis (DVT) of left lower extremity, Leukocytosis ED Provider Note HISTORY OF PRESENT ILLNESS: Patient is a 37-year-old male presenting with left foot pain. Patient reports that he has been having subjective fevers, left foot pain and swelling over the last few days. He states that he presented to [facility] yesterday and was given IV vancomycin for any infection and was discharged home. Patient states that he was discharged on doxycycline and he took a dose earlier today. He reports that this morning he woke up and his foot has become discolored and significantly more swollen. He had a low-grade fever at home. He has a history of [id number]. He reports he has had a chronic pressure ulcer on the plantar surface of his left foot. However, in the last few hours he developed a blood blister on the left lateral part of the foot. He denies any numbness or tingling in the foot. He does have a history of diabetes. Denies any drainage from the wounds of the foot. He denies any chest pain or shortness of breath. He is not on any anticoagulation other than a baby aspirin. Patient denies any DVT or PE history. ROS: as above PHYSICAL EXAM: Constitutional: Patient appears in no acute distress. HENT: Head: Normocephalic and atraumatic. Eyes: EOMI, PERRL Mouth/Throat: Mucous membranes moist. Neck: Trachea midline. Neck supple. Cardiovascular: RRR, No murmurs, rubs or gallops. Intact distal pulses. Pulmonary/Chest: No respiratory distress. Breath sounds clear and equal bilaterally. No wheezes or rales Abdominal: Abdomen soft, no tenderness, rebound or guarding. Musculoskeletal: - LLE: Patient has significant swelling and diffuse erythema to the left foot extending to the mid tibial region. Swelling is nonpitting. He has a large blood blister on the left lateral portion of the foot. A small, circumferential pressure ulcer is noted in the mid plantar surface of the foot. Good cap refill in all 5 toes. Patient has intact sensation to light touch to the toes. He is able to dorsiflex and plantarflex the ankle and wiggle the toes. He has no palpable crepitus on palpation of the skin. Intact DP pulse. Skin: Warm and dry. Psychiatric: Appropriate mood and affect for situation. Neurological: Alert and keenly responsive. CN II-XII grossly intact, moving all extremities equally and fully. MDM: - Vitals signs showed hypotension - History obtained via patient. History as above. - Chronic conditions affecting care: HTN; DM-1; ESRD (on HD) - Differential diagnoses include, but are not limited to: DVT; arterial clot; cellulitis; necrotizing fasciitis; diabetic foot ulcer - Order placed for continuous cardiac monitoring. At this time, monitor showed rate of 70 bpm with normal sinus rhythm, per my interpretation. - External medical records reviewed. Discharge summary dated 06/12/2023 was reviewed. Patient was admitted at that time for cellulitis of the left leg. - EKG interpreted by myself showed normal sinus rhythm. Rate 71 bpm. QT 414. No acute ischemic changes. - Laboratory workup interpreted by myself showed leukocytosis (WBC 12.77) with left shift; hyponatremia (Na 130); elevated procalcitonin (11.40); elevated BUN (35); transaminitis (AST 104; ALT 78); normal troponin - VBG shows slight acidosis - CXR showed mild pulmonary vascular congestion, per my interpretation - Xray left foot negative for free air, per radiology - US LLE was positive for thrombus within one of the 2 left peroneal veins consistent with a DVT. - US of arterial system of LLE also obtained. - Blood cultures obtained. - Patient given IV zosyn and IV daptomycin for sepsis coverage. Given 2.5L NS for fluid resuscitation - patient's sepsis fluid resuscitation based on ideal body weight is 2263.5 mL - Given heparin bolus and started on heparin drip for DVT. - Discussion was had with case investigator about patient's case and need for admission - Hospitalist consulted for admission. - [facility] ASSESSMENT AND PLAN: Diagnosis: sepsis; cellulitis of left lower extremity; acute DVT in left lower extremity; elevated procalcitonin; leukocytosis Plan: Admit Past Med/Surg History Medical History Critical illness polyneuropathy Pulmonary edema Hyperglycemia Fever Long-term exposure involving bird droppings Acute hypoxemic respiratory failure Current vaping on some days Anxiety Anemia Substance abuse End stage renal disease on dialysis due to type 1 diabetes mellitus History of seizure seizure-like activity 02/14/2019 in setting of severe hyperglycemia (patient states he missed dialysis/insulin dose), DKA, confusion- lifeflighted to [place]/intubated/placed on ventilator. DKA managed with insulin drip on admission. EEG with no seizure activity noted. Neurology consulted and initially started patient on prophylactic Keppra but suspected seizure was complication of hyperglycemia and recommended weaning off anticonvulsants/advised no further neurology workup needed. Per patient, medication/dialysis compliance since discharge with glucoses in the range on 100's-200's on self-checks. Peritonitis currently on intraperitoneal abx Hepatitis C Gastroparesis Withdrawal from opioids Diabetic retinopathy of both eyes Nephrotic syndrome Diabetes mellitus type I Hypertension Surgical History Pancreas transplant status Renal transplant recipient H/O eye surgery Hx of tonsillectomy Hx of tooth extraction Hx of vitrectomy B/L; right vitrectomy: 05/26/18: LMA#5 at [facility] Peritoneal dialysis catheter in place Family History Grandfather (Maternal) Diabetes Grandfather (Paternal) Diabetes Grandmother (Paternal) Diabetes Grandmother (Maternal) Diabetes Aunt Diabetes Uncle Diabetes Father Hypertension Brother Hypertension Social History Smoking Status: Former smoker Tobacco Type: Cigarettes Second Hand Exposure: No; Do You Dip or Chew Tobacco: Yes; Hx Alcohol Use: Yes Hx Substance Use: No Preferred Language: Singaporean Communication Ability: Effective Communication Ability Comment: sedated, arouses easily Visual Impairment: Severely Limited Hearing Ability: Normal Industrial 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 Required: No Beliefs That Will Affect Care: None Current Living Situation: Alone Current Living Situation Comment: aide help throughout the week current occupational status: employed and unemployed Feels Safe at Home: Yes Childhood Exposure to Second-Hand Smoke: No Diet: regular Diet Comment: diabetic caffeine: Yes during the past year weight has: other Dental Care, Regularly: Yes Physical Activity Frequency: Daily Seatbelt Use: always Sunscreen Use: Yes Assistive Devices: Crutches Allergies Allergies Allergy/AdvReac Type Severity Reaction Status Date / Time sulfamethoxazole Allergy Intermediate Rash Verified 09/18/23 15:57 [From Bactrim] trimethoprim [From Bactrim] Allergy Intermediate Rash Verified 09/18/23 15:57 Home Meds Home Medications Medication Instructions Recorded Confirmed clonazepam 0.5 mg tablet 0.5 mg PO BID PRN Anxiety 11/03/18 09/18/23 mycophenolate mofetil 250 mg 750 mg PO BID 10/20/22 09/18/23 capsule rosuvastatin 10 mg tablet 10 mg PO DAILY 10/20/22 09/18/23 aspirin 325 mg tablet 325 mg PO DAILY 12/19/22 09/18/23 tacrolimus 1 mg capsule, 1 mg PO Q12H 06/05/23 09/18/23 immediate-release clonidine HCl 0.1 mg tablet 0.1 mg PO BID 06/11/23 09/18/23 clotrimazole-betamethasone 1 1 applic topical DIRECTED PRN 09/18/23 09/18/23 %-0.05 % topical cream Skin Irritation collagenase clostridium histo. 250 1 applic topical DAILY PRN 09/18/23 09/18/23 unit/gram topical ointment (Santyl) NEEDED PER PT doxycycline hyclate 100 mg capsule 100 mg PO BID 09/18/23 09/18/23 furosemide 20 mg tablet 20 mg PO QAM PRN NEEDED PER 09/18/23 09/18/23 [facility] methadone 10 mg/5 mL oral solution 100 mg PO DAILY 09/18/23 09/18/23 pregabalin 75 mg capsule 75 mg PO TID 09/18/23 09/18/23 silver sulfadiazine 1 % topical 1 applic topical DAILY 09/18/23 09/18/23 cream (Silvadene) Previous Rx's Medication Instructions Recorded carvedilol 6.25 mg tablet (Coreg) 6.25 mg PO BID #20 tabs 12/08/22 zinc sulfate 50 mg zinc (220 mg) 220 mg (4.4 x 50 mg zinc (220 mg)) 06/12/23 capsule (Orazinc) PO QAM #30 caps Results & Data (ED) Vital Signs Vital Signs - 24 hr 09/18/23 14:36 09/18/23 16:00 09/18/23 16:09 Temperature 36.5 C Temperature Source Temporal Artery Scan Pulse Rate 74 Pulse Rate [Left Finger] 70 Pulse Rhythm Regular Respiratory Rate 20 16 Respiratory Effort / Characteristics Non-Labored Spontaneous Non-Labored Spontaneous Respiratory Depth Normal Normal Respiratory Pattern Regular Blood Pressure 99/64 L Blood Pressure [Right Arm] 111/72 Blood Pressure Mean 75 Blood Pressure Mean [Right Arm] 85 Blood Pressure Position [Right Arm] Semi-fowlers Pulse Oximetry 97 95 95 Oxygen Delivery Method Room Air Room Air Room Air Sepsis Recent Fever Within 48 Hours No Sepsis New/Unexplained Change in Mental Status No Sepsis Action Taken by Nursing No Action Required 09/18/23 16:09 09/18/23 17:40 Temperature Temperature Source Pulse Rate Pulse Rate [Left Finger] 70 68 Pulse Rhythm Respiratory Rate 16 18 Respiratory Effort / Characteristics Non-Labored Spontaneous Non-Labored Spontaneous Respiratory Depth Normal Normal Respiratory Pattern Regular Regular Blood Pressure Blood Pressure [Right Arm] 111/72 119/69 Blood Pressure Mean Blood Pressure Mean [Right Arm] 85 85 Blood Pressure Position [Right Arm] Semi-fowlers Lying Pulse Oximetry 95 96 Oxygen Delivery Method Room Air Room Air Sepsis Recent Fever Within 48 Hours Sepsis New/Unexplained Change in Mental Status Sepsis Action Taken by Nursing Laboratory Data 09/18/23 15:24 09/18/23 15:24 Lab Results 09/18/23 09/18/23 Range/Units 15:24 16:16 WBC 12.77 H (4.8-10.8) K/ul RBC 5.66 (4.70-6.10) M/uL Hgb 13.7 L (14.0-18.0) g/dl Hct 42.8 (42.0-52.0) % MCV 75.6 L (80.0-100.0) fL MCH 24.2 L (25.0-34.0) pg MCHC 32.0 (32.0-36.0) g/dL RDW Std Deviation 43.7 (36.4-46.3) fL RDW Coeff of Rebecca 16.3 H (11.5-14.5) % Plt Count 264 (130-400) K/uL MPV 8.4 L (9.4-12.4) fL Immature Gran % (Auto) 0.6 % Neut % (Auto) 76.1 % Lymph % (Auto) 9.1 % [place] % (Auto) 12.9 % Eos % (Auto) 1.1 % Baso % (Auto) 0.2 % Neut # (Auto) 9.72 H (1.40-6.50) K/uL Lymph # (Auto) 1.16 L (1.20-3.40) K/uL [place] # (Auto) 1.65 H (0.11-0.59) K/uL Eos # (Auto) 0.14 (0.00-0.50) K/uL Baso # (Auto) 0.02 (0.00-0.20) K/uL Immature Gran # (Auto) 0.08 (0.01-0.20) K/uL APTT 35 H (21-31) Seconds PTT Ratio 1.2 VBG pH 7.33 L (7.36-7.41) VBG pCO2 42 (38-50) mmHg VBG pO2 61 mmHg VBG HCO3 22 mmol/L VBG O2 Saturation 89.0 % VBG Base Excess -3.7 mEq/L Sodium 130 L (136-145) mmol/L Potassium 4.0 (3.5-5.1) mmol/L Chloride 100 (98-107) mmol/L Carbon Dioxide 21 (21-32) mmol/L Anion Gap 9 (3-11) BUN 35 H (6-23) mg/dl Creatinine 1.36 (0.6-1.4) mg/dl Est Cr Clr Drug Dosing 83.4 ml/min Est GFR ( Amer) 75.4 ml/min Est GFR (Non-Af Amer) 65.1 ml/min BUN/Creatinine Ratio 25.7 H (10-20) Glucose 100 H (70-99(Fasting)) mg/dl Lactate 0.9 (0.4-2.0) mmol/L Calcium 9.7 (8.6-10.3) mg/dl Magnesium 1.7 (1.7-2.4) mg/dl Total Bilirubin 1.2 H (0.2-1.0) mg/dl Direct Bilirubin 0.7 H (0-0.2) mg/dl AST 104 H (13-39) U/L ALT 78 H (7-52) U/L Alkaline Phosphatase 532 H (34-104) U/L Troponin I High Sens 12.8 (0-20) pg/ml Total Protein 6.4 (6.0-8.3) gm/dl Albumin 3.2 L (3.4-5.0) gm/dl Procalcitonin Cancelled 11.40 H Administered Medications Daptomycin 475 mg/ Syringe 9.5 mls @ 4.75 mls/min IV Q24H [facility]; Protocol Stop: 09/20/23 18:29 Last Admin: 09/18/23 18:42 Dose: 4.75 mls/min Documented By: LMM Discontinued Medications Piperacillin Sod/Tazobactam Sod (Zosyn) 4.5 gm in 100 mls @ 200 mls/hr IV NOW ONE Stop: 09/18/23 16:13 Last Infusion: 09/18/23 16:48 Dose: Infused Documented By: Admin: 09/18/23 16:16 Dose: 200 mls/hr Documented By: LMM Imaging Data Radiologist's Impression: Chest X-Ray 09/18/23 14:55 XR chest 1V portable HISTORY: Sepsis COMPARISON: Chest 10/19/2022. FINDINGS: No pneumothorax. No pleural effusions. The cardiac silhouette remains mildly enlarged. There is mild central pulmonary vascular congestion without overt edema. No new focal lung consolidations to suggest a pneumonia. No acute fractures. There is a vascular stent seen within the left upper extremity. IMPRESSION: Cardiomegaly and mild congestive change. This is similar to the prior study. ACT 112: Negative or not required by law. Electronically signed by: Mookie Velazquez M.D. 09/18/2023 3:58 PM Venous Doppler Study 09/18/23 15:14 LEFT LOWER EXTREMITY VENOUS DOPPLER HISTORY: discolored, painful foot COMPARISON STUDY: None. FINDINGS: The left common femoral, superficial femoral, popliteal, posterior tibial, peroneal veins are patent. There is thrombus identified within one of 2 peroneal veins. Mild left inguinal lymphadenopathy is noted. This may be reactive. IMPRESSION: 1. Thrombus within one of 2 left peroneal veins consistent with a DVT. 2. Mild left inguinal lymphadenopathy. This may be reactive. ACT 112: Negative or not required by law. Electronically signed by: Mookie Velazquez M.D. 09/18/2023 5:49 PM Foot X-Ray 09/18/23 15:44 XR foot LT 2V CLINICAL HISTORY: erythema and swelling; r/o free air COMPARISON: Left foot radiographs June 09, 2023. FINDINGS: Exam is compromised given difficulty positioning. Diffuse soft tissue swelling of the left foot is present. No radiographic evidence for soft tissue gas. Markedly abnormal appearance of the midfoot has mildly progressed since prior exam with bony fragmentation and collapse, including disruption of the talonavicular articulation. Moderate vascular calcification is present. No definite acute bony erosions are identified. IMPRESSION: 1. No radiographic evidence for soft tissue gas within the left foot. Diffuse soft tissue swelling, increased since prior exam. 2. Progressive bony fragmentation and collapse of the left midfoot when compared to radiographs of June 09, 2023. The findings suggest neuropathic arthropathy. 3. Exam compromised given difficulty positioning. ACT 112: Negative or not required by law. Electronically signed by: Yves Kilgore M.D. 09/18/2023 4:31 PM Discharge Plan Visit Data Chief Complaint: Infection Stated Complaint: CELLULITIS LEFT FOOT ED Provider: Suzanne Sexton Discharge Problem: Sepsis, Cellulitis of left lower extremity, Elevated procalcitonin, Acute deep vein thrombosis (DVT) of left lower extremity, Leukocytosis Forms Stand Alone Forms: My [facility] [employer] Prescriptions Prescriptions: No Action aspirin 325 mg tablet 325 mg PO DAILY clonazepam 0.5 mg tablet 0.5 mg PO BID PRN (Reason: Anxiety) mycophenolate mofetil 250 mg capsule 750 mg PO BID Rx Instructions: 3 caps (250 each cap) BID rosuvastatin 10 mg tablet 10 mg PO DAILY Hold Instructions: Resume on 06/20/23. Hold until you are completed with your IV antibiotic therapy carvedilol [Coreg] 6.25 mg tablet 6.25 mg PO BID Qty: 20 2RF Rx Instructions: must administer with a meal/food tacrolimus 1 mg Capsule 1 mg PO Q12H Hold Instructions: Resume on 07/10/23. Hold until directed by your transplant team clonidine HCl 0.1 mg tablet 0.1 mg PO BID zinc sulfate [Orazinc] 50 mg zinc (220 mg) Capsule 220 mg PO QAM Qty: 30 0RF silver sulfadiazine [Silvadene] 1 % Cream 1 applic TOPICAL DAILY Rx Instructions: apply a 1.5 mm thickness doxycycline hyclate 100 mg capsule 100 mg PO BID Rx Instructions: STARTED 09/16/23 FOR 10 DAYS methadone 10 mg/5 mL Solution 100 mg PO DAILY clotrimazole-betamethasone 1-0.05 % cream 1 applic TOPICAL DIRECTED PRN (Reason: Skin Irritation) furosemide 20 mg tablet 20 mg PO QAM PRN (Reason: NEEDED PER [facility]) Santyl 250 unit/gram Ointment 1 applic TOPICAL DAILY PRN (Reason: NEEDED PER PT) pregabalin 75 mg capsule 75 mg PO TID Referrals Referrals: Ryan Leyva MD [Primary Care Provider] -
[2023-09-18] MEDS: DAPTOmycin 475 MG in SYRINGE 0 ML IV SCH (18:42)
--- NOTE | 2023-09-18 18:54 | Ultrasound Report ---
US arterial duplex LE LT CLINICAL HISTORY: discolored, painful foot COMPARISON STUDY: None. FINDINGS: Monophasic waveforms and scattered calcified plaque seen throughout the left lower extremit y arterial system. No evidence for arterial occlusion. Focal areas of elevated peak systolic velociti es within the distal left anterior tibial artery, distal left posterior tibial artery, and dorsalis p imani artery consistent with areas of hemodynamically significant stenosis. Additional areas of border line elevated velocities within the proximal and distal left superficial femoral artery as well as th e distal left peroneal artery consistent with areas of borderline stenosis. IMPRESSION: 1. No areas of arterial occlusion within the left lower extremity. 2. Multifocal areas of hemodynamically significant stenosis as described above. 3. Monophasic waveforms seen throughout the left lower extremity arterial system suggestive of proxim al stenosis. ACT 112: Negative or not required by law. Electronically signed by: Mookie Velazquez M.D. 09/18/2023 6:52 PM
[2023-09-18] MEDS ORDERED: HEPARIN SOD (PORCINE) 1000 UNIT/ML IV ONE (19:00)
[2023-09-18] MEDS: SODIUM CHLORIDE 0.9% 2,000 ML IV ONE (19:02)
[2023-09-18 19:50] LABS: INR 1.2 (0.9-1.1); Prothrombin Time 12.6 Seconds (9.0-12.0)
[2023-09-18] MEDS: Heparin IV Adult Wt-Based Standard w/ INITIAL Bolus Protocol IV SCH (20:18)
[2023-09-18] MEDS: HEPARIN SODIUM/DEXTROSE 25,000 UNITS/500 ML BAG IV SCH (20:24)
[2023-09-18] MEDS: HEPARIN SOD (PORCINE) 1000 UNIT/ML IV ONE (20:25)
[2023-09-18] MEDS: SODIUM CHLORIDE 0.9% 500 ML IV ONE (20:27)
[2023-09-18] MEDS ORDERED: POLYETHYLENE (MIRALAX) 17 GM PACK PO PRN (21:51)
[2023-09-18] MEDS ORDERED: COLLAGENASE OINT 30 GM TUBE TOP PRN (21:51)
[2023-09-18] MEDS ORDERED: VANCOMYCIN CONSULT ACTIVE PRN (21:51)
[2023-09-18] MEDS ORDERED: CLOTRIMAZOLE/BETAMETHASONE CR 15 GM TUBE EXT PRN (21:51)
[2023-09-18] MEDS: carvediloL 6.25 MG TAB PO SCH (23:20)
[2023-09-18] MEDS: CEFEPIME 2,000 MG in SYRINGE 0 ML IV SCH (23:20)
[2023-09-18] MEDS: MYCOPHENOLATE MOFETIL 250 MG CAP PO SCH (23:21)
[2023-09-18] MEDS: cloNIDine HCL 0.1 MG TAB PO SCH (23:21)
[2023-09-18] MEDS: TACROLIMUS 1 MG CAP PO SCH (23:22)
[2023-09-18] MEDS: ACETAMINOPHEN 325 MG TAB PO PRN (23:28)
[2023-09-18] MEDS: SODIUM CHLORIDE 0.9% 1,000 ML IV SCH (23:29)
[2023-09-18] MEDS: PREGABALIN 75 MG CAP PO SCH (23:29)
--- NOTE | 2023-09-18 23:40 | History & Physical Report ---
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 Patient states since last 3 days he developed lower extremity redness and pain. He had an episode of fever for 1 day. He went to [facility] yesterday and was given IV vancomycin and was discharged home on doxycycline. And today morning the feet become more discolored and significantly more swollen which prompted him to come to the ER here today. Denies any chest pain or shortness of breath. No cough. No nausea. No abdominal pain. Normal bowel and bladder movements. No headache. No dizziness. Vision is okay. No runny nose or sore throat. Appetite is okay. No difficulty swallowing. Currently resting comfortably and hemodynamically stable. Patient was admitted to [facility] on June 04, 2023 and was discharged on June 12, 2023. At the time he was admitted for left lower extremity cellulitis and also left forearm. And blood cultures were positive for coag negative staph with [employer] showing methicillin resistance. ID recommended 2 weeks of IV antibiotics. He was on IV daptomycin. At the time he also had skin rash and follow-up with dermatology. Thought to be from Bactrim and Bactrim is currently on hold. Patient states supposed to see his transplant team soon and will discuss about restarting Bactrim or any other antibiotic. Left lower extremity cellulitis Recurrent IV Vanco and cefepime ID consult Follow cultures Follow response Left lower extremity DVT Start on IV heparin Peripheral vascular disease Consult vascular surgery in a.m. 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 Patient states since last 3 days he developed lower extremity redness and pain. He had an episode of fever for 1 day. He went to [facility] yesterday and was given IV vancomycin and was discharged home on doxycycline. And today morning the feet become more discolored and significantly more swollen which prompted him to come to the ER here today. Denies any chest pain or shortness of breath. No cough. No nausea. No abdominal pain. Normal bowel and bladder movements. No headache. No dizziness. Vision is okay. No runny nose or sore throat. Appetite is okay. No difficulty swallowing. Currently resting comfortably and hemodynamically stable. Patient was admitted to [facility] on June 04, 2023 and was discharged on June 12, 2023. At the time he was admitted for left lower extremity cellulitis and also left forearm. And blood cultures were positive for coag negative staph with [employer] showing methicillin resistance. ID recommended 2 weeks of IV antibiotics. He was on IV daptomycin. At the time he also had skin rash and follow-up with dermatology. Thought to be from Bactrim and Bactrim is currently on hold. Patient states supposed to see his transplant team soon and will discuss about restarting Bactrim or any other antibiotic. Past medical history. As mentioned above Past surgical history. Will. Return dialysis. S/p pancreas transplant. S/p kidney transplant. Partial removal of right eye fluid. Tonsillectomy. Surgical removal of erupted tooth. Social history. Snuff tobacco. No alcohol use. No drug use. Family history. Brother has hypertension. Father has hypertension. Lung cancer. Mother from urosepsis. Diabetes in the family. Allergies Allergy/AdvReac Type Severity Reaction Status Date / Time sulfamethoxazole Allergy Intermediate Rash Verified 09/18/23 15:57 [From Bactrim] trimethoprim [From Bactrim] Allergy Intermediate Rash Verified 09/18/23 15:57 Home Medications Medication Instructions Recorded Confirmed Type clonazepam 0.5 mg tablet 0.5 mg PO BID PRN Anxiety 11/03/18 09/18/23 History mycophenolate mofetil 250 mg 750 mg PO BID 10/20/22 09/18/23 History capsule rosuvastatin 10 mg tablet 10 mg PO DAILY 10/20/22 09/18/23 History carvedilol 6.25 mg tablet (Coreg) 6.25 mg PO BID #20 tabs 12/08/22 09/18/23 Rx aspirin 325 mg tablet 325 mg PO DAILY 12/19/22 09/18/23 History tacrolimus 1 mg capsule, 1 mg PO Q12H 06/05/23 09/18/23 History immediate-release clonidine HCl 0.1 mg tablet 0.1 mg PO BID 06/11/23 09/18/23 History zinc sulfate 50 mg zinc (220 mg) 220 mg (4.4 x 50 mg zinc (220 mg)) 06/12/23 09/18/23 Rx capsule (Orazinc) PO QAM #30 caps clotrimazole-betamethasone 1 1 applic topical DIRECTED PRN 09/18/23 09/18/23 History %-0.05 % topical cream Skin Irritation collagenase clostridium histo. 250 1 applic topical DAILY PRN 09/18/23 0 09/18/23 History unit/gram topical ointment (Santyl) NEEDED PER PT doxycycline hyclate 100 mg capsule 100 mg PO BID 09/18/23 09/18/23 History furosemide 20 mg tablet 20 mg PO QAM PRN NEEDED PER 09/18/23 09/18/23 History [facility] methadone 10 mg/5 mL oral solution 100 mg PO DAILY 09/18/23 09/18/23 History pregabalin 75 mg capsule 75 mg PO TID 09/18/23 09/18/23 History silver sulfadiazine 1 % topical 1 applic topical DAILY 09/18/23 09/18/23 History cream (Silvadene) Past Med/Surg History Medical History Critical illness polyneuropathy Pulmonary edema Hyperglycemia Fever Long-term exposure involving bird droppings Acute hypoxemic respiratory failure Current vaping on some days Anxiety Anemia Substance abuse End stage renal disease on dialysis due to type 1 diabetes mellitus History of seizure seizure-like activity 02/14/2019 in setting of severe hyperglycemia (patient states he missed dialysis/insulin dose), DKA, confusion- lifeflighted to [place]/intubated/placed on ventilator. DKA managed with insulin drip on admission. EEG with no seizure activity noted. Neurology consulted and initially started patient on prophylactic Keppra but suspected seizure was complication of hyperglycemia and recommended weaning off anticonvulsants/advised no further neurology workup needed. Per patient, medication/dialysis compliance since discharge with glucoses in the range on 100's-200's on self-checks. Peritonitis currently on intraperitoneal abx Hepatitis C Gastroparesis Withdrawal from opioids Diabetic retinopathy of both eyes Nephrotic syndrome Diabetes mellitus type I Hypertension Surgical History Pancreas transplant status Renal transplant recipient H/O eye surgery Hx of tonsillectomy Hx of tooth extraction Hx of vitrectomy B/L; right vitrectomy: 05/26/18: [place] [facility] [place]itoneal dialysis catheter in place Family History Grandfather (Maternal) Diabetes Grandfather (Paternal) Diabetes Grandmother (Paternal) Diabetes Grandmother (Maternal) Diabetes Aunt Diabetes Uncle Diabetes Father Hypertension Brother Hypertension Social History Smoking Status: Former smoker Tobacco Type: Cigarettes Second Hand Exposure: No; Do You Dip or Chew Tobacco: Yes; Hx Alcohol Use: No Hx Substance Use: No Preferred Language: Upper Sorbian Communication Ability: Effective Communication Ability Comment: sedated, arouses easily Visual Impairment: Severely Limited Hearing Ability: Normal Teacher Theater Arts Required: No Beliefs That Will Affect Care: None Current Living Situation: Alone Current Living Situation Comment: aide help throughout the week current occupational status: employed and unemployed Feels Safe at Home: Yes Childhood Exposure to Second-Hand Smoke: No Diet: regular Diet Comment: diabetic caffeine: Yes during the past year weight has: other Dental Care, Regularly: Yes Physical Activity Frequency: Daily Seatbelt Use: always Sunscreen Use: Yes Assistive Devices: Crutches, Denture - Upper, Denture - Lower, Glasses and Wheelchair Review of Systems Review of Systems: All systems reviewed & are unremarkable except as noted in HPI & below Physical Exam Physical Exam: General- Not in distress Head- atraumatic Eyes- PERRL. ENT- oropharynx clear Neck- supple, no JVD. Lungs- clear to auscultation no wheezing or crackles. Heart- regular rhythm; no murmur, no gallop. Abdomen- normal bowel sounds, soft, nontender, no distension. Extremities- Left lower extremity is erythematosus and swollen.superficial wound on right cagle Neuro- alert, oriented PERRL, no facial palsy; no dysarthria; moves extremities. Results & Data Results & Data Vital Signs (Past 12 Hours) Vital Signs Temp Pulse Pulse Resp BP BP Pulse Ox 09/18/23 19:30 84 16 116/86 98 09/18/23 17:40 68 18 119/69 96 09/18/23 16:09 70 16 111/72 95 09/18/23 16:09 95 09/18/23 16:00 70 16 111/72 95 09/18/23 14:36 36.5 C 74 20 99/64 L 97 O2 Del Method 09/18/23 19:30 09/18/23 17:40 Room Air 09/18/23 16:09 Room Air 09/18/23 16:09 Room Air 09/18/23 16:00 Room Air 09/18/23 14:36 Room Air Diagnostic Findings Laboratory Results WBC 12.77 K/ul (4.8-10.8) H 09/18/23 15: RBC 5.66 M/uL (4.70-6.10) 09/18/23 15:24 Hgb 13.7 g/dl (14.0-18.0) L 09/18/23 15:24 Hct 42.8 % (42.0-52.0) 09/18/23 15: MCV 75.6 fL (80.0-100.0) L 09/18/23 15:24 MCH 24.2 pg (25.0-34.0) L 09/18/23 15:24 MCHC 32.0 g/dL (32.0-36.0) 09/18/23: RDW Std Deviation 43.7 fL (36.4-46.3) 09/18/23 15: RDW Coeff of Rebecca 16.3 % (11.5-14.5) H 09/18/23 15:24 Plt Count 264 K/uL (130-400) 09/18/23 15:24 MPV 8.4 fL (9.4-12.4) L 09/18/23 15:24 Immature Gran % (Auto) 0.6 % 09/18/23 15:24 Neut % (Auto) 76.1 % 09/18/23 15: Lymph % (Auto) 9.1 % 09/18/23 15:24 [place] % (Auto) 12.9 % 09/18/23 15:24 Eos % (Auto) 1.1 % 09/18/23 15:24 Baso % (Auto) 0.2 % 09/18/23 15:24 Neut # (Auto) 9.72 K/uL (1.40-6.50) H 09/18/23 15: Lymph # (Auto) 1.16 K/uL (1.20-3.40) L 09/18/23 15: [place] # (Auto) 1.65 K/uL (0.11-0.59) H 09/18/23 15:24 Eos # (Auto) 0.14 K/uL (0.00-0.50) 09/18/23 15: Baso # (Auto) 0.02 K/uL (0.00-0.20) 09/18/23 15:24 Immature Gran # (Auto) 0.08 K/uL (0.01-0.20) 09/18/23: PT 12.6 Seconds (9.0-12.0) H 09/18/23 15:24 INR 1.2 (0.9-1.1) H 09/18/23 15:24 APTT 35 Seconds (21-31) H 09/18/23: PTT Ratio 1.2 09/18/23:24 VBG pH 7.33 (7.36-7.41) L 09/18/23 15:24 VBG pCO2 42 mmHg (38-50) 09/18/23: VBG pO2 61 mmHg 09/18/23: VBG HCO3 22 mmol/L 09/18/23: VBG O2 Saturation 89.0 % 09/18/23 15: VBG Base Excess -3.7 mEq/L 09/18/23 15: Sodium 130 mmol/L (136-145) L 09/18/23: Potassium 4.0 mmol/L (3.5-5.1) 09/18/23 15:24 Chloride 100 mmol/L (98-107) 09/18/23 15:24 Carbon Dioxide 21 mmol/L (21-32) 09/18/23 15:24 Anion Gap 9 (3-11) 09/18/23 15:24 BUN 35 mg/dl (6-23) H 09/18/23 15:24 Creatinine 1.36 mg/dl (0.6-1.4) 09/18/23 15:24 Est Cr Clr Drug Dosing 83.4 ml/min 09/18/23 15:24 Est GFR ( Amer) 75.4 ml/min 09/18/23 15:24 Est GFR (Non-Af Amer) 65.1 ml/min 09/18/23 15:24 BUN/Creatinine Ratio 25.7 (10-20) H 09/18/23 15:24 Glucose 100 mg/dl (70-99(Fasting)) H 09/18/23 15:24 POC Glucose 86 mg/dl (70-99) 09/18/23 21:51 Lactate 0.9 mmol/L (0.4-2.0) 09/18/23 15:24 Calcium 9.7 mg/dl (8.6-10.3) 09/18/23 15:24 Magnesium 1.7 mg/dl (1.7-2.4) 09/18/23 15:24 Total Bilirubin 1.2 mg/dl (0.2-1.0) H 09/18/23 15:24 Direct Bilirubin 0.7 mg/dl (0-0.2) H 09/18/23 15:24 AST 104 U/L (13-39) H 09/18/23 15:24 ALT 78 U/L (7-52) H 09/18/23 15:24 Alkaline Phosphatase 532 U/L (34-104) H 09/18/23 15:24 Troponin I High Sens 12.8 pg/ml (0-20) 09/18/23 15:24 Total Protein 6.4 gm/dl (6.0-8.3) 09/18/23 15:24 Albumin 3.2 gm/dl (3.4-5.0) L 09/18/23 15:24 Procalcitonin 11.40 ng/ml (0-0.5) H 09/18/23 16:16 Impressions Chest X-Ray 09/18/23 14:55 XR chest 1V portable HISTORY: Sepsis COMPARISON: Chest 10/19/2022. FINDINGS: No pneumothorax. No pleural effusions. The cardiac silhouette remains mildly enlarged. There is mild central pulmonary vascular congestion without overt edema. No new focal lung consolidations to suggest a pneumonia. No acute fractures. There is a vascular stent seen within the left upper extremity. IMPRESSION: Cardiomegaly and mild congestive change. This is similar to the prior study. ACT 112: Negative or not required by law. Electronically signed by: Mookie Velazquez M.D. 09/18/2023 3:58 PM Duplex Scan Lower Extremity Artery 09/18/23 15:14 US arterial duplex LE LT CLINICAL HISTORY: discolored, painful foot COMPARISON STUDY: None. FINDINGS: Monophasic waveforms and scattered calcified plaque seen throughout the left lower extremity arterial system. No evidence for arterial occlusion. Focal areas of elevated peak systolic velocities within the distal left anterior tibial artery, distal left posterior tibial artery, and dorsalis pedis artery consistent with areas of hemodynamically significant stenosis. Additional areas of borderline elevated velocities within the proximal and distal left superficial femoral artery as well as the distal left peroneal artery consistent with areas of borderline stenosis. IMPRESSION: 1. No areas of arterial occlusion within the left lower extremity. 2. Multifocal areas of hemodynamically significant stenosis as described above. 3. Monophasic waveforms seen throughout the left lower extremity arterial system suggestive of proximal stenosis. ACT 112: Negative or not required by law. Electronically signed by: Mookie Velazquez M.D. 09/18/2023 6:52 PM Venous Doppler Study 09/18/23 15:14 LEFT LOWER EXTREMITY VENOUS DOPPLER HISTORY: discolored, painful foot COMPARISON STUDY: None. FINDINGS: The left common femoral, superficial femoral, popliteal, posterior tibial, peroneal veins are patent. There is thrombus identified within one of 2 peroneal veins. Mild left inguinal lymphadenopathy is noted. This may be reactive. IMPRESSION: 1. Thrombus within one of 2 left peroneal veins consistent with a DVT. 2. Mild left inguinal lymphadenopathy. This may be reactive. ACT 112: Negative or not required by law. Electronically signed by: Mookie Velazquez M.D. 09/18/2023 5:49 PM Foot X-Ray 09/18/23 15:44 XR foot LT 2V CLINICAL HISTORY: erythema and swelling; r/o free air COMPARISON: Left foot radiographs June 09, 2023. FINDINGS: Exam is compromised given difficulty positioning. Diffuse soft tissue swelling of the left foot is present. No radiographic evidence for soft tissue gas. Markedly abnormal appearance of the midfoot has mildly progressed since prior exam with bony fragmentation and collapse, including disruption of the talonavicular articulation. Moderate vascular calcification is present. No definite acute bony erosions are identified. IMPRESSION: 1. No radiographic evidence for soft tissue gas within the left foot. Diffuse soft tissue swelling, increased since prior exam. 2. Progressive bony fragmentation and collapse of the left midfoot when compared to radiographs of June 09, 2023. The findings suggest neuropathic arthropathy. 3. Exam compromised given difficulty positioning. ACT 112: Negative or not required by law. Electronically signed by: Yves Kilgore M.D. 09/18/2023 4:31 PM ECG Additional Comments: ECG. Normal sinus rhythm rate of 71. No significant change was found. Code Status & VTE Plan VTE Prophylaxis Plan VTE Prophylaxis will be ordered: Yes
[2023-09-19 03:20] LABS: ANTI-Xa, UFH(UnfractionatedHep 0.14 IU/ml (0.3-0.7)
[2023-09-19] MEDS: HEPARIN SOD (PORCINE) 1000 UNIT/ML IV ONE ×2 (04:14→12:48)
[2023-09-19] MEDS: VANCOMYCIN HCL 1,750 MG in SODIUM CHLORIDE 0.9% 500 ML IV SCH (05:51)
[2023-09-19] MEDS ORDERED: PATIENT'S OWN CONTROLLED MED 1 PO PRN (06:26)
[2023-09-19] MEDS: Heparin IV Adult Wt-Based Standard w/ INITIAL Bolus Protocol IV STA (08:04)
[2023-09-19] MEDS: OPTIRAY 320 100ml IV ONE (09:54)
[2023-09-19] MEDS: ZINC SULFATE 220 MG CAPSULE PO SCH (10:16)
[2023-09-19] MEDS: ROSUVASTATIN CALCIUM 10 MG TAB PO SCH (10:16)
[2023-09-19] MEDS: ASPIRIN 325 MG ECTAB PO SCH (10:16)
[2023-09-19] MEDS: SILVER SULFADIAZINE 1% CR 50 GM JAR TOP SCH (10:18)
[2023-09-19] MEDS: METHADONE ORAL SOLN 2 MG/ML PO SCH (10:43)
[2023-09-19] MEDS: clonazePAM 0.5 MG TAB PO PRN (10:43)
--- OUTSIDE RECORDS SUMMARY | 2023-09-19 10:43 | External Medical Summary | Summary of Care ---
Author Name Unknown Organization [facility] Address [address] [place] [address] Phone [phone] Care Team Providers Care Hospitality Director Name Role Phone Ryan Leyva MD Primary Care Provider [phone] Encounter Details Date Type Department Care Team (Late st Contact Info) Description 09/17/2023 Orders Only Family [facility] [address] [place] [address] Ryan Leyva MD [address] [place] [address] Allergies Active Allergy Reactions Criticality Noted Date Comments Sulfamethoxazole Rash 06/05/2023 Trimethoprim Rash 06/05/2023 documented as of this encounter (statuses as of 09/17/2023) Medications Medication Sig Dispensed Refills Start Date [...] before bedtime. 180 Tablet 3 01/14/2023 Active Santyl 250 UNIT/GM External Ointment 0 05/17/2023 Active Cyclobenzaprine HCl 10 MG Oral Tablet (Flexeril) 0 Active Triamcinolone Acetonide 0.1 % External Cream (Aristocort)Indicati ons:Rash and nonspecific skin eruption,Scald burn Apply topically to affected area 2 times a day. On left forearm and Rt thigh till better 45 g 1 05/21/2023 Active Clotrimazole-Betamet hasone 1-0.05 % External Cream (Lotrisone) 0 05/25/2023 Active Silvadene 1 % External Cream Apply topically to affected area daily. 50 g 2 05/31/2023 Active Zinc 220 (50 Zn) MG Oral Capsule Take 220 mg by mouth every morning. 0 06/13/2023 Active Rosuvastatin Calcium 10 MG Oral Tablet (Crestor)Indications :Type 1 diabetes mellitus with hemoglobin A1c goal of less than 7.0% (HCC) TAKE ONE TABLET BY MOUTH IN THE MORNING 90 Tablet 0 07/23/2023 Active clonazePAM 0.5 MG Oral Tablet (KlonoPIN)Indication s:JOB (generalized anxiety disorder) Take 1 Tablet by mouth 2 times a day as needed for Anxiety. 60 Tablet 1 07/22/2023 Active Pregabalin 75 MG Oral Capsule (Lyrica)Indications: Venous stasis of both lower extremities Take 1 Capsule by mouth in the morning and 1 Capsule at noon and 1 Capsule in the evening. 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 Diabetic Charcot foot 04/19/2023 Venous stasis of [...] as of this encounter (statuses as of 09/17/2023) Resolved Problems Problem Noted Date Diagnosed Date [...] as of this encounter (statuses as of 09/17/2023) Immunizations Name Administration Dates Next Due COVID-19 [...] as of this encounter Plan of Treatment Health Maintenance Due Date Last Done Comments Pneumococcal Vaccine: Pediatrics (0 to 5 Years) and At-Risk Patients (6 to 64 Years) (1 of 2 - PCV) 09/30/1989 Depression Screening 1995 Albumin/Creatinine Ratio 09/30/2001 Diabetic Foot Exam 09/30/2001 Hepatitis B (1 of 3 - 19+ 3-dose series) 09/30/2002 COVID-19 Vaccine (3 - Moderna risk series) 09/06/2020 08/09/2020, 07/12/2020 HbA1c 12/13/2023 06/14/2023, 03/11, 12/03/2022, Additional history exists Diabetic Eye Exam 12/18/2023 12/17/2022, , 09/15/2021, Additional history exists Influenza Vaccine (FLU shot) (Season Ended) 2024 03/07/2020, 03/07/2020, 03/18/2019, Additional history exists GFR 06/17/2024 09/16/2023, 01/2024, 06/14/2023, Additional history exists DTaP,Tdap,and Td Vaccines (3 [...] Priority Date/Time Associated Diagnosis Comments CHEMISTRY-OUTSIDE Routine 09/16/2023 documented in this encounter Results * (ABNORMAL) CHEMISTRY-OUTSIDE (09/16/2023) Not all results display below - see scan for full detail SCAN INCLUDES ER [facility] [place]: CMP, LACTIC ACID, CBCD OUTSIDE LAB (SEE SCANNED REPORT) CREATININE-OUTSI DE LAB 1.45(A) 0.70 - 1.30 MG/DL OUTSIDE LAB (SEE SCANNED REPORT) EGFR-OUTSIDE LAB 63 >60 ML/MIN OUTSIDE LAB (SEE SCANNED REPORT) POTASSIUM-OUTSID E LAB 4.3 3.5 - 5.1 MMOL/L OUTSIDE LAB (SEE SCANNED REPORT) GLUCOSE-OUTSIDE LAB 88 70 - 110 MG/DL OUTSIDE LAB (SEE SCANNED REPORT) HOURS FASTING OUTSID E LAB (SEE SCANNED REPORT) TRIGLYCERIDES-OU TSIDE LAB OUTSIDE LAB (SEE SCANNED REPORT) CHOLESTEROL-OUTS ANÍBAL LAB OUTSIDE LAB (SEE SCANNED REPORT) HDL-OUTSIDE LAB OUTS ANÍBAL LAB (SEE SCANNED REPORT) CHOL/HDL RATIO-OUTSIDE LAB OUTSIDE LAB (SEE SCANNED REPORT) LDL (CALCULATED)-OUT SIDE LAB OUTSIDE LAB (SEE SCANNED REPORT) LDL (DIRECT MEASURE)-OUTSIDE LAB OUTSIDE LAB (SEE SCANNED REPORT) HEMOGLOBIN, P4C-RGLUSSQ LAB OUTSIDE LAB (SEE SCANNED REPORT) PHOSPHORUS-OUTSI DE LAB OUTSIDE LAB (SEE SCANNED REPORT) PTH-OUTSIDE LAB OUTS ANÍBAL LAB (SEE SCANNED REPORT) MICROALBUMIN RATIO-OUTSIDE LAB OUTSIDE LAB (SEE SCANNED REPORT) PROTEIN, UA-OUTSIDE LAB OUTSIDE LAB (SEE SCANNED REPORT) HGB 13.8 13.5 - 18.0 GM/DL OUTSIDE LAB (SEE SCANNED REPORT) 09/16/2023 Adrian Almaraz MD LABORATORY OUTSIDE LAB (SEE SCANNED REPORT) documented in this encounter Advance Directives Latest Code Status on File Code Status Date Activated Date Inactivated Comments Full Code 02/14/2019 10:34 PM 02/20/2019 3:48 PM This order reflects the patients wishes and were consensually agreed upon. Question Answer Comments Discussion of Advance Directives occurred with: Not Discussed Care Teams Hospitality Director Relationship Specialty Start Date End Date Ryan Leyva MD [address] [facility] [place] [address] PCP - General Family Medicine 07/17/22 documented as of this encounter
--- OUTSIDE RECORDS SUMMARY | 2023-09-19 10:43 | External Medical Summary | Summary of Care ---
Author Name Unknown Organization [facility] Address [address] [place] [address] Phone [phone] Care Team Providers Care Cabin Supervisor Name Role Phone Ryan Leyva MD Primary Care Provider [phone] Encounter Details Date Type Department Care Team ([facility] st Contact Info) Description 09/16/2023 Result Scan Unspecified Department <No scans attached> Allergies Active Allergy Reactions Criticality Noted Date Comments Sulfamethoxazole Rash 06/05/2023 Trimethoprim Rash 06/05/2023 documented as of this encounter (statuses as of 09/18/2023) Medications Medication Sig Dispensed Refills Start Date [...] as of this encounter (statuses as of 09/18/2023) Active Problems Problem Noted Date Diagnosed Date [...] as of this encounter (statuses as of 09/18/2023) Resolved Problems Problem Noted Date Diagnosed Date [...] as of this encounter (statuses as of 09/18/2023) Immunizations Name Administration Dates Next Due COVID-19 [...] Care Team (Late st Contact Info) Description 09/18/2023 12:00 PM EDT Office Visit Family Practice [facility] [address] [place] [address] Su Liu DO [address] [place] [id number] Health Maintenance Due Date Last Done Comments [...] 03/07/2020, 03/07/2020, 03/18/2019, Additional history exists GFR 09/15/2024 09/16/2023, 01/2024, 06/14/2023, Additional history exists DTaP,Tdap,and [...] Name Priority Date/Time Associated Diagnosis Comments RADIOLOGY SCANNED RESULT 09/16/2023 RADIOLOGY SCANNED RESULT 09/16/2023 documented in this encounter Results * RADIOLOGY SCANNED RESULT (09/16/2023) 09/16/2023 No Physician Data Unknown DIAGNOSTIC RAD IOLOGY SERVICES * RADIOLOGY SCANNED RESULT (09/16/2023) 09/16/2023 No Physician Data Unknown DIAGNOSTIC RAD IOLOGY SERVICES documented in this encounter Advance Directives Latest Code Status on File Code Status Date Activated Date Inactivated Comments Full Code 02/14/2019 10:34 PM 02/20/2019 3:48 PM This order reflects the patients wishes and were consensually agreed upon. Question Answer Comments Discussion of Advance Directives occurred with: Not Discussed Care Teams Cabin Supervisor Relationship Specialty Start Date End Date Ryan Leyva MD [address] [place] [address] PCP - General Family Medicine 07/17/22 documented as of this encounter
--- OUTSIDE RECORDS SUMMARY | 2023-09-19 10:43 | External Medical Summary | Summary of Care ---
Author Name Unknown Organization [facility] Address [address] [place] [address] Phone [phone] Care Team Providers Care Purchasing And Claims Supervisor Name Role Phone Ryan Leyva MD Primary Care Provider [phone] Reason for Visit * Reason Comments eRx-Medication Refill Encounter Details Date Type Department Care Team (Late st Contact Info) Description 09/14/2023 Refill Family Practice [facility] [address] [employer] [address] [place] [address] Ryan Leyva MD [address] [facility] [place] [address] Allergies Active Allergy Reactions Criticality Noted Date Comments Sulfamethoxazole Rash 06/05/2023 Trimethoprim Rash 06/05/2023 documented as of this encounter (statuses as of 09/16/2023) Medications Medication Sig Dispensed Refills Start Date [...] as of this encounter (statuses as of 09/16/2023) Active Problems Problem Noted Date Diagnosed Date [...] as of this encounter (statuses as of 09/16/2023) Resolved Problems Problem Noted Date Diagnosed Date [...] as of this encounter (statuses as of 09/16/2023) Immunizations Name Administration Dates Next Due COVID-19 [...] encounter Miscellaneous Notes * Telephone Encounter - Patricia Andrade DO - 09/16/2023 2:44 PM EDTSigned Prescriptions: Disp Refills Furosemide 20 MG Oral Tablet (Lasix) 30 Tab*0 Sig: take 1 tab by mouth daily as needed Authorizing Provider: PATRICIA ANDRADE * Telephone Encounter - Luis Amaro [facility] - 09/16/2023 12:30 PM EDT Pending Prescriptions: Disp Refills Furosemide 20 MG Oral Tablet [Pharmacy Med*30 Tab*0 Sig: take 1 tab by mouth daily as needed * Telephone Encounter - Luis Amaro [facility] - 09/16/2023 12:28 PM EDT Pharmacists cannot authorize refills for meds listed as "historical" in chart. Please approve if appropriate. Pending Prescriptions: Disp Refills Furosemide 20 MG Oral Tablet (Lasix) [Pha*30 Tab*0 Sig: take 1 tab by mouth daily as needed Thank you, Luis Amaro, PharmD Clinical Pharmacist [facility] 09/16/23 12:29 PM [phone] documented in this encounter Plan of Treatment Health Maintenance [...] 03/07/2020, 03/18/2019, Additional history exists GFR 06/17/2024 06/17/2023, 10/2023, 04/04/2023, Additional history exists DTaP,Tdap,and Td Vaccines (3 [...] Directives occurred with: Not Discussed Care Teams Purchasing And Claims Supervisor Relationship Specialty Start Date End Date Ryan Leyva MD [address] [place] [address] PCP - General Family Medicine 07/17/22 documented as of this encounter
--- OUTSIDE RECORDS SUMMARY | 2023-09-19 10:44 | External Medical Summary | Summary of Care ---
Author Name Unknown Organization [facility] Address [address] [place] [address] Phone [phone] Care Team Providers Care Testing Coordinator Name Role Phone Ryan Leyva MD Primary Care Provider [phone] Reason for Visit * Reason Onset Date Comments FYI 06/13/2023 Admitted to At [facility] Health Encounter Details Date Type Department Care Team (Late st Contact Info) Description 06/13/2023 Telephone Family Practice [facility] [address] [facility] [place] [address] Ryan Leyva MD [address] [employer] [address] [employer] [place] [phone] FYI (Admitted to At [facility]) Allergies Active Allergy Reactions Criticality Noted Date Comments Sulfamethoxazole Rash 06/05/2023 Trimethoprim Rash 06/05/2023 documented as of this encounter (statuses as of 09/12/2023) Medications Medication Sig Dispensed Refills Start Date [...] by mouth every morning. 0 06/13/2023 Active documented as of this encounter (statuses as of 09/12/2023) Active Problems Problem Noted Date Diagnosed Date [...] as of this encounter (statuses as of 09/12/2023) Resolved Problems Problem Noted Date Diagnosed Date [...] as of this encounter (statuses as of 09/12/2023) Immunizations Name Administration Dates Next Due COVID-19 [...] encounter Miscellaneous Notes * Telephone Encounter - Samra Jin LPN - 06/13/2023 4:32 PM EST fyi * Telephone Encounter - Brayan Almaraz OSA - 06/13/2023 4:02 PM EST Shara with [facility] is calling to state that the patient Bernard is being admitted for care starting today 06/13/23 with [facility] and wanted to make Dr. Leyva Aware that a start of care was completed. He was giving antibiotics. Wanted to report one open wound on his right leg that he can treat on his own. He is ok with administering his injections by himself. documented in this encounter Plan of Treatment [...] 03/07/2020, 03/07/2020, 03/18/2019, Additional history exists HbA1c 12/13/2023 06/14/2023, 03/11, 12/03/2022, Additional history exists Diabetic Eye Exam 12/18/2023 12/17/2022, , 09/15/2021, Additional history exists GFR 06/17/2024 06/17/2023, 10/2023, [...] Directives occurred with: Not Discussed Care Teams Testing Coordinator Relationship Specialty Start Date End Date Ryan Leyva MD [address] [facility] [place] [address] PCP - General Family Medicine 07/17/22 documented as of this encounter
--- OUTSIDE RECORDS SUMMARY | 2023-09-19 10:44 | External Medical Summary | Summary of Care ---
Author Name Unknown Organization [facility] Address [address] [place] [address] Phone [phone] Care Team Providers Care Bath Mix Operator Name Role Phone Ryan Leyva MD Primary Care Provider [phone] Reason for Visit * Reason Onset Date Comments Appointment 08/27/2023 Encounter Details Date Type Department Care Team ([facility] st Contact Info) Description 08/27/[address] [facility] [address] [employer] [facility] [place] [address] Ryan Leyva MD [address] [facility] [place] [address] Appointment Allergies Active Allergy Reactions Criticality Noted Date Comments Sulfamethoxazole Rash 06/05/2023 Trimethoprim Rash 06/05/2023 documented as of this encounter (statuses as of 08/27/2023) Medications Medication Sig Dispensed Refills Start Date [...] Anxiety. 60 Tablet 1 07/22/2023 Active Pregabalin 50 MG Oral Capsule (Lyrica)Indications: History of drug abuse (HCC) Take 1 Capsule by mouth in the morning and 1 Capsule at noon and 1 Capsule before bedtime. 90 Capsule 0 07/30/2023 Active documented as of this encounter (statuses as of 08/27/2023) Active Problems Problem Noted Date Diagnosed Date [...] as of this encounter (statuses as of 08/27/2023) Resolved Problems Problem Noted Date Diagnosed Date [...] as of this encounter (statuses as of 08/27/2023) Immunizations Name Administration Dates Next Due COVID-19 [...] Notes * Telephone Encounter - Jaymie Calabrese OSA - 08/27/2023 10:16 AM EDT Appt switched and pt aware * Telephone Encounter - Delmar Monroy OSA - 08/27/2023 8:58 AM EDT Pt would like to make today's in-person visit (08/26 at 4:[address] Leyva) a video visit. Epic would not let me convert it over. Please call pt when this is done to confirm. [phone]. documented in this encounter Plan of Treatment Upcoming Encounters Date Type Department Care Team (Late st Contact Info) Description 08/27/2023 4:00 PM EDT Telemedicine Family Practice [facility] [address] [place] [address] Ryan Leyva MD [address] [place] [address] Health Maintenance Due Date Last Done Comments [...] Directives occurred with: Not Discussed Care Teams Bath Mix Operator Relationship Specialty Start Date End Date Ryan Leyva MD [address] [place] [address] PCP - General Family Medicine 07/17/22 documented as of this encounter
--- OUTSIDE RECORDS SUMMARY | 2023-09-19 10:44 | External Medical Summary | Summary of Care ---
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, bilateral (HCC) Procedures NC BEVACIZUMAB INJECTION INJECTION OF EYE DRUG Burotn Schroeder DO [address] [place] [address] Ophthalmology [facility] [address] [place] [address] Referral ID Status Reason Start Date Expiration Date V isits Requested Visits Authorized [id number] Authorized Precert 05/31/2022 06/09/2099 [id number] Encounter Details Date Type Department Care Team (Late st Contact Info) Description 08/22/2023 11:15 AM EDT Office Visit Ophthalmology, [facility] [address] [place] [address] Burton Schroeder DO [address] [place] [address] Proliferative diabetic retinopathy of both eyes associated with type 1 diabetes mellitus, unspecified proliferative retinopathy type (HCC)* Allergies Active Allergy Reactions Criticality Noted Date Comments Sulfamethoxazole Rash 06/05/2023 Trimethoprim Rash 06/05/2023 documented as of this encounter (statuses as of 08/22/2023) Medications Medication Sig Dispensed Refills Start Date [...] as of this encounter (statuses as of 08/22/2023) Active Problems Problem Noted Date Diagnosed Date [...] as of this encounter (statuses as of 08/22/2023) Resolved Problems Problem Noted Date Diagnosed Date [...] as of this encounter (statuses as of 08/22/2023) Immunizations Name Administration Dates Next Due COVID-19 [...] as of this encounter Progress Notes * Bruton Schroeder DO - 08/22/2023 11:15 AM EDT [facility] [place] Nursing notes reviewed. Mood and affect: normal HPI: Bernard Jones is a 37 year old male who presents for PDR OU. Base Eye Exam Visual Acuity (Snellen - Linear) Right Left Dist sc 20/30 20/50 Dist ph sc NI Tonometry (Tonopen, 11:24 AM) Right Left Pressure 15 16 Pupils Pupils APD Right PERRL None Left PERRL None Visual Rowe Right Left Full Restrictions Partial outer inferior nasal deficiency Extraocular Movement Right Left Full, Ortho Full, Ortho Neuro/Psych Oriented x3: Yes Mood/Affect: Normal Dilation Both eyes: 0.5% Proparacaine @ 11:24 AM Dilation #2 Both eyes: 1.0% Mydriacyl, 2.5% Phenylephrine @ 11:24 AM Dilation Comments Patient cautioned that effects of dilation may last 2-7 hours dependant upon individual reaction. It was discussed that driving while dilated is not recommended. Strabismus Exam Correction: ks Observations: Ortho Distance Near Near +3DS N Bifocals cover/uncover, and alternate cover EXTERNAL: The ocular adnexae are unremarkable. SLE: Lids/Lashes: wnl OU Conjunctiva/Sclera: quiet OU Cornea: clear OU Anterior Chamber: deep and quiet OU Iris: normal OU; no NVI OU Lens: +nsc OU Dilated fundus exam OD: pt refused dilation vitreous: VH--worse optic nerve: 0.3, regressed NVD; no edema/pallor macula: +roustabout crew leader vessels: ischemic midperiphery: +PRP, segmented membranes periphery: +roustabout crew leader, +PRP, no RT/RD Dilated fundus exam OS: vitreous: VH-resolved optic nerve: 0.3, +segmented fibrovascular tuft, no edema/pallor/NVD macula: +roustabout crew leader vessels: ischemic midperiphery: +PRP, segmented membranes periphery: +roustabout crew leader, +PRP, segmented fibrovascular membranes, no RT/RD OCT [...] under anesthesia for PPV OS -s/p Avastin (06/21/23, 12/17/22, 08/23/22, 07-01-20-Dr. 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 Dry eye -recommend OTC preservative-free artificial tears 4-6/day and prn. F/u 6-8 wks - dilate and OCT OU Burton Schroeder DO CC: Aris Ram, LEILA PCP: Douglas Huckestein, DO documented in this encounter Nursing Notes * Lucille Loo RN - 08/22/2023 11:16 AM EDT Bernard Jones is a 37 year old year old male who presents for pdr ou. Last Office Visit: 06/21/2023 (in office), Visit date not found (telemedicine) Patient currently states no change in vision. Are you diabetic? Yes. Do you check your blood sugars daily? YES. Did not measure this morning. Last Hemoglobin A1C: Lab Results Component Value Date/Time HGBA1C 5.2 06/14/2023 12:00 AM HGBA1C 5.1 04/04/2023 12:00 AM HGBA1C 4.9 12/03/2022 12:00 AM HGBA1C 5.2 11/01/2021 10:22 AM HGBA1C 5.3 09/14/2021 09:15 AM HGBA1C 5.2 09/08/2021 09:12 AM HGBA1C 8.0 (H) 12/07/2019 12:02 PM HGBA1C 13.8 (H) 02/14/2019 02:56 PM HGBA1C 14.0 (H) 10/28/2018 02:[address]? NO OCT image(s) of both eyes acquired and filed/scanned into chart. documented in this encounter Plan of Treatment Upcoming Encounters Date Type Department Care Team (Late st Contact Info) Description 08/27/2023 4:00 PM EDT Office Visit [facility] [address] [place] [address] Ryan Leyva MD [address] [place] [address] Scheduled Orders Name Type Priority Associated Diagnoses Orde r Schedule RETINA SCAN DIAGNOSTIC IMAGE, POSTERIOR Procedures Routine Proliferative diabetic retinopathy of both eyes associated with type 1 diabetes mellitus, unspecified proliferative retinopathy type (HCC) Ordered: 08/22/2023 Health Maintenance Due Date Last Done Comments [...] as of this encounter Visit Diagnoses Diagnosis Proliferative diabetic retinopathy of both eyes associated with type 1 diabetes mellitus, unspecified proliferative retinopathy type (HCC)- Primary documented in this encounter Advance Directives Latest Code Status on File Code Status Date Activated Date Inactivated Comments Full Code 02/14/2019 10:34 PM 02/20/2019 3:48 PM This order reflects the patients wishes and were consensually agreed upon. Question Answer Comments Discussion of Advance Directives occurred with: Not Discussed Care Teams Housekeeping Manager Relationship Specialty Start Date End Date Ryan Leyva MD [address] [place] [address] PCP - General Family Medicine 07/17/22 documented as of this encounter
--- OUTSIDE RECORDS SUMMARY | 2023-09-19 10:44 | External Medical Summary | Summary of Care ---
Author Name Unknown Organization [facility] Address [address] [place] [address] Phone [phone] Care Team Providers Care Press Hand Supervisor Name Role Phone Ryan Leyva MD Primary Care Provider [phone] Encounter Details Date Type Department Care Team (Latest Contact Info) Description 08/27/2023 4:00 PM EDT Telemedicine [facility] [address] [facility] [place] [address] Ryan Leyva MD [address] [facility] [place] [address] Stable proliferative diabetic retinopathy of both eyes associated with type 1 diabetes mellitus (HCC)*; Diabetic Charcot foot (HCC); Venous stasis of both lower extremities; HTN, goal below 130/80; Seizure disorder (HCC); 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 60 Tablet 1 07/22/2023 Active Pregabalin 75 MG Oral Capsule (Lyrica)Indicatio ns:Venous stasis of both lower extremities Take 1 Capsule by mouth in the morning and 1 Capsule at noon and 1 Capsule in the evening. 90 Capsule 1 08/27/2023 Active Pregabalin 50 MG Oral Capsule (Lyrica)Indicatio ns:History of drug abuse (HCC) Take 1 Capsule by mouth in the morning and 1 Capsule at noon and 1 Capsule before bedtime. 90 Capsule 0 07/30/2023 08/27/2023 Discontinue d(Medicatio n/Dose Changed) documented as of this encounter (statuses as [...] Progress Notes * Ryan Leyva MD - 08/27/2023 4:12 PM EDT Patient location: HOME. I was in a hospital or clinic location. After connecting through televideo,patient was verified with two unique identifiers. Patient (or authorized legal strategic partnership representative) was then informed that this was a Telemedicine visit and being conducted confidentially over secure lines. Methods to assure confidentiality were taken. Patient acknowledged consent and understanding of pr ivacy and security of the Telemedicine visit. The patient agreed to participate. SUBJECTIVE: Bernard Jones is a 37 year old male. No chief complaint on file. HPI: Routine visit via video. Chronic medical problems stable. Medications reviewed. Still needs me to sign form for his electric wheelchair. Patient Active Problem List Diagnosis Code Stable proliferative diabetic retinopathy of both eyes associated with type 1 diabetes mellitus ([facility]) E10.3553 HTN, goal below 130/80 I10 Seizure disorder ([facility]) G40.909 Hepatitis C virus infection cured after antiviral drug therapy Z86.19 Kidney replaced by transplant Z94.0 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 ([facility]) Z94.83 JOB (generalized anxiety disorder) F41.1 History of drug abuse ([facility]) F19.11 Overweight (BMI 25.0-29.9) E66.3 Venous stasis of both lower extremities I87.8 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 Tacrolimus 1 MG Oral Capsule (Prograf) 1 Capsule in the morning and 1 Capsule before bedtime. Aspirin 325 MG Oral Tablet Take 1 Tablet by mouth in the morning. cloNIDine HCl 0.1 MG Oral Tablet (Catapres) Take 1 Tablet by mouth in the morning and 1 Tablet in the evening. 180 Tablet 3 Methadone HCl 10 MG/5ML Oral Solution Take 50 mL by mouth daily. Carvedilol 6.25 MG Oral Tablet (Coreg) Take 1 Tablet by mouth in the morning and 1 Tablet before bedtime. 180 Tablet 3 Santyl 250 UNIT/GM External Ointment Cyclobenzaprine HCl 10 MG Oral Tablet (Flexeril) Triamcinolone Acetonide 0.1 % External Cream (Aristocort) Apply topically to affected area 2 times a day. On left forearm and Rt thigh till better 45 g 1 Clotrimazole-Betamethasone 1-0.05 % External Cream (Lotrisone) Silvadene 1 % External Cream Apply topically to affected area daily. 50 g 2 Zinc 220 (50 Zn) MG Oral Capsule Take 220 mg by mouth every morning. Rosuvastatin Calcium 10 MG Oral Tablet (Crestor) TAKE ONE TABLET BY MOUTH IN THE MORNING 90 Tablet 0 clonazePAM 0.5 MG Oral Tablet (KlonoPIN) Take 1 Tablet by mouth 2 times a day as needed for Anxiety. 60 Tablet 1 Pregabalin 50 MG Oral Capsule (Lyrica) Take 1 Capsule by mouth in the morning and 1 Capsule at noonand 1 Capsule before bedtime. 90 Capsule 0 No current facility-administered medications for this visit. Allergy: Review of patient's allergies indicates: Allergen Reactions Sulfamethoxazole Rash Trimethoprim Rash OBJECTIVE: There were no vitals taken for this visit. Gen: nad ASSESSMENT AND PLAN: (E10.9933) Stable proliferative diabetic retinopathy of both eyes associated with type 1 diabetes mellitus (HCC) (primary encounter diagnosis) Plan: stable follows with Dr. 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) 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 Overweight (BMI 25.0-29.9) Overweight 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HCC) Opioid type dependence, unspecified History of type 1 diabetes mellitus Personal history of other endocrine, metabolic, and immunity disorders History of drug abuse (HCC) Other, mixed, or unspecified nondependent drug abuse, in remission Hepatitis C virus infection cured after antiviral [...] Directives occurred with: Not Discussed Care Teams Press Hand Supervisor Relationship Specialty Start Date End Date Ryan Leyva MD [address] [place] [address] PCP - General Family Medicine 07/17/22 documented as of this encounter
--- OUTSIDE RECORDS SUMMARY | 2023-09-19 10:44 | External Medical Summary | Summary of Care ---
Author Name Unknown Organization [facility] Address [address] [place] [address] Phone [phone] Care Team Providers Care Legal Billing Clerk Name Role Phone Ryan Leyva MD Primary Care Provider [phone] Reason for Visit * Reason Onset Date Comments Order Request 05/06/2023 Encounter Details Date Type Department Care Team ([facility] st Contact Info) Description 05/06/2023 Telephone Family Practice [facility] [address] [place] [address] Ryan Leyva MD [address] [facility] [place] [id number] Order Request Allergies Active Allergy Reactions Criticality Noted Date Comments Sulfamethoxazole Rash 06/05/2023 Trimethoprim Rash 06/05/2023 documented as of this encounter (statuses as of 08/05/2023) Medications Medication Sig Dispensed Refills Start Date [...] before bedtime. 180 Tablet 3 01/14/2023 Active Sulfamethoxazole -Trimethoprim 400-80 MG Oral Tablet (Bactrim) Take 1 Tablet by mouth in the morning. Take three times a week. 0 07/17/2022 3 Discontinued(End of Procedure) Rosuvastatin Calcium 10 MG Oral Tablet (Crestor)Indicat ions:Type 1 diabetes mellitus with hemoglobin A1c goal of less than 7.0% (HCC) TAKE 1 TABLET BY MOUTH EVERY MORNING 90 Tablet 0 01/26/2023 4 Discontinued clonazePAM 0.5 MG Oral Tablet (KlonoPIN)Indica tions:JOB (generalized anxiety disorder) Take 1 Tablet by mouth 2 times a day as needed for Anxiety. 60 Tablet 1 03/29/2023 3 Discontinued(Ref ill) Amoxicillin-Pot Clavulanate 875-125 MG Oral Tablet (Augmentin) Take 1 Tablet by mouth in the morning and 1 Tablet before bedtime. 20 Tablet 0 04/19/2023 3 Discontinued(Med ication List Clean Up) Pregabalin 50 MG Oral Capsule (Lyrica)Indicati ons:History of drug abuse (HCC) take 1 capsule by mouth in the morning, 1 capsule at noon and 1 capsule before bedtime. 90 Capsule 0 04/22/2023 4 Discontinued(Ref ill) Hospital, Clinic, or Other Facility Administered Medication Ordered Dose Route Frequency Start Date End Date Status bevaCIZumab (Avastin) inj 1.25 mgIndications:Stable proliferative diabetic retinopathy of both eyes associated with type 1 diabetes mellitus (HCC),Vitreous hemorrhage of left eye (HCC) 1.25 mg IZ PRN 06/29/2022 06/29/2023 Ended ROPivacaine (Naropin) inj 1.5 mgIndications:Stable proliferative diabetic retinopathy of both eyes associated with type 1 diabetes mellitus (HCC),Vitreous hemorrhage of left eye (HCC) 1.5 mg PERINEURAL PRN 06/29/2022 06/29/2023 Ended documented as of this encounter (statuses as of 08/05/2023) Active Problems Problem Noted Date Diagnosed Date [...] as of this encounter (statuses as of 08/05/2023) Resolved Problems Problem Noted Date Diagnosed Date [...] as of this encounter (statuses as of 08/05/2023) Immunizations Name Administration Dates Next Due COVID-19 [...] Telephone Encounter - Tonie Rodriguez LPN - 05/07/2023 6:32 PM EST Prednisone was sent in * Telephone Encounter - Timur-Rikki Acharya OSA - 05/06/2023 3:13 PM EST An order was requested for this patient. Name of Requesting Provider: pt Order Requested: power chair script to [facility] Diagnosis/Reason for Request: DME says that the script has to come from PCP and not the Circulation Manager and needs to say: PT/OT eval for power wheelchair PLEASE FAX to If order request is for Mammogram: Is the patient having any breast symptoms? N/A Is there a chance of ? N/A Has the patient had any breast problems in the past? NA What location AND department does the patient wish to have their order completed at? [facility] Fax Number, if applicable: [phone] Call Back Number: [phone] If the caller is not a current patient, please advise the patient to call their current PCP to havethe order's prior to being seen in our office. The patient was informed that our providers would not order anything (medication, labs, etc.) prior to being seen. An order was requested for this patient. Name of Requesting Provider: pt Order Requested: prednisone refill Diagnosis/Reason for Request: If order request is for Mammogram: Is the patient having any breast symptoms? N/A Is there a chance of ? N/A Has the patient had any breast problems in the past? NA What location AND department does the patient wish to have their order completed at? Fax Number, if applicable: Call Back Number: [phone] If the caller is not a current patient, please advise the patient to call their current PCP to havethe order's prior to being seen in our office. The patient was informed that our providers would not order anything (medication, labs, etc.) prior to being seen. documented in this encounter Plan of Treatment Upcoming Encounters Date Type Department Care Team (Late st Contact Info) Description 08/22/2023 11:15 AM EDT Office Visit Ophthalmology, [facility] [address] [place] [address] Burton Schroeder DO [address] [place] [address] 08/27/2023 4:00 PM EDT Office Visit Family Practice [facility] [address] [place] [address] Ryan Leyva MD [address] [place] [address] Health Maintenance Due Date Last Done Comments [...] Directives occurred with: Not Discussed Care Teams Legal Billing Clerk Relationship Specialty Start Date End Date Ryan Leyva MD [address] [place] [address] PCP - General Family Medicine 07/17/22 documented as of this encounter
--- OUTSIDE RECORDS SUMMARY | 2023-09-19 10:44 | External Medical Summary | Summary of Care ---
Author Name Unknown Organization [facility] Address [address] [place] [address] Phone [phone] Care Team Providers Care Supervisor Instrument Repair Name Role Phone Farida Do MD Primary Care Provider [phone] Reason for Visit * Reason Onset Date Comments eRx-Medication Refill Left Message 07/21/2023 Encounter Details Date Type Department Care Team (Late st Contact Info) Description 07/21/[address] [facility] [address] [facility] [place] [address] Farida Do MD [address] [facility] [place] [id number] JOB (generalized anxiety disorder); Type 1 diabetes mellitus with hemoglobin A1c goal of less than 7.0% ([facility]) Allergies Active Allergy Reactions Criticality Noted Date Comments Sulfamethoxazole Rash 06/05/2023 Trimethoprim Rash 06/05/2023 documented as of this encounter (statuses as of 07/23/2023) Medications Medication Sig Dispensed Refills Start Date [...] Active Triamcinolone Acetonide 0.1 % External Cream (Aristocort)Aida cations:Rash and nonspecific skin eruption,Scald burn Apply topically to affected area 2 times a day. On left forearm and Rt thigh till better 45 g 1 05/21/2023 Active Clotrimazole-Bet amethasone 1-0.05 % External Cream (Lotrisone) 0 05/25/2023 Active Silvadene 1 % External Cream Apply topically to affected area daily. 50 g 2 05/31/2023 Active Zinc 220 (50 Zn) MG Oral Capsule Take 220 mg by mouth every morning. 0 06/13/2023 Active Pregabalin 50 MG Oral Capsule (Lyrica)Indicati ons:History of drug abuse (HCC) Take 1 Capsule by mouth in the morning and 1 Capsule before bedtime. 90 Capsule 0 06/25/2023 Active Rosuvastatin Calcium 10 MG Oral Tablet (Crestor)Indicat ions:Type 1 diabetes mellitus with hemoglobin A1c goal of less than 7.0% (HCC) TAKE ONE TABLET BY MOUTH IN THE MORNING 90 Tablet 0 07/23/2023 Active Rosuvastatin Calcium 10 MG Oral Tablet (Crestor)Indicat ions:Type 1 diabetes mellitus with hemoglobin A1c goal of less than 7.0% (HCC) TAKE 1 TABLET BY MOUTH EVERY MORNING 90 Tablet 0 01/26/2023 07/23/19 24 Discontinued clonazePAM 0.5 MG Oral Tablet (KlonoPIN)Indica tions:JOB (generalized anxiety disorder) Take 1 Tablet by mouth 2 times a day as needed for Anxiety. 60 Tablet 1 05/22/2023 07/21/19 24 Discontinued(Ref ill) documented as of this encounter (statuses as of 07/23/2023) Active Problems Problem Noted Date Diagnosed Date [...] as of this encounter (statuses as of 07/23/2023) Resolved Problems Problem Noted Date Diagnosed Date [...] as of this encounter (statuses as of 07/23/2023) Immunizations Name Administration Dates Next Due COVID-19 [...] Telephone Encounter - Farida Do MD - 07/23/2023 2:17 PM ESTSigned Prescriptions: Disp Refills Rosuvastatin Calcium 10 MG Oral Tablet (Cr*90 Tab*0 Sig: TAKE ONE TABLET BY MOUTH IN THE MORNING Authorizing Provider: FARIDA DO Refused Prescriptions: Disp Refills clonazePAM 0.5 MG Oral Tablet (KlonoPIN) 60 Tab*0 Sig: Take 1 Tablet by mouth 2 times a day as needed for Anxiety. Refused By : JELLY ROSE Reason for Refusal: Duplicate Request * Telephone Encounter - Rossi Pope CPhT - 07/23/2023 1:45 PM ESTPending Prescriptions: Disp Refills Rosuvastatin Calcium 10 MG Oral Tablet (Cr*90 Tab*0 Sig: TAKE ONE TABLET BY MOUTH IN THE MORNING Refused Prescriptions: Disp Refills clonazePAM 0.5 MG Oral Tablet (KlonoPIN) 60 Tab*0 Sig: Take 1 Tablet by mouth 2 times a day as needed for Anxiety. Refused By: JELLY ROSE Reason for Refusal: Duplicate Re quest * Telephone Encounter - Rossi Pope CPhT - 07/23/2023 1:43 PM EST Received message from [facility] regarding patient needing labs. Placed call to patient to advise. Left message on voicemail to call back and schedule appointment. Thank you, Rossi Pope CPhT Automatic Lehr Operator II [facility] ( [facility]) 07/23/2023,1:43 PM * Telephone Encounter - Interface, [facility] Inbound - 07/23/2023 6:02 AM EST Pending Prescriptions: Disp Refills Rosuvastatin Calcium 10 MG Oral Tablet (Cr*90 Tab*0 Sig: TAKE ONE TABLET BY MOUTH IN THE MORNING Refused Prescriptions: Disp Refills clonazePAM 0.5 MG Oral Tablet (KlonoPIN) 60 Tab*0 Sig: Take 1 Tablet by mouth 2 times a day as needed for Anxiety. Refused By: JELLY ROSE Reason for Refusal: Duplicate Re quest * Telephone Encounter - Jelly Rose RP - 07/22/2023 12:11 PM ESTPending Prescriptions: Disp Refills Rosuvastatin Calcium 10 MG Oral Tablet (Cr*90 Tab*0 Sig: TAKE ONE TABLET BY MOUTH IN THE MORNING Refused Prescriptions: Disp Refills clonazePAM 0.5 MG Oral Tablet (KlonoPIN) 60 Tab*0 Sig: Take 1 Tablet by mouth 2 times a day as needed for Anxiety. Refused By: JELLY ROSE Reason for Refusal: Duplicate Re quest * Telephone Encounter - Jelly Rose RP - 07/22/2023 12:07 PM EST Unable to authorize medication refills for pended medication(s) at this time. Per refill protocol patient should have Lipid panel on file within past year. Reviewed AMP report, Care Gaps/Health Maintenance, medications list, and for any routine labs typically ordered for this patient. Lab orders placed. Please contact patient to advise of labs ordered for blood draw. Recommend patient to fast if able for labs. Patient may still have water and regular medications. Advise to obtain labs before requesting the next refill. After contacting patient, please forward request to Farida Do MD. Thanks, Jelly Rose PharmD Clinical Pharmacist [facility] ([facility]) [phone] 07/22/2023, 12:11 PM documented in this encounter Plan of Treatment Upcoming Encounters Date Type Department Care Team (Late st Contact Info) Description 08/22/2023 11:15 AM EDT Office Visit Ophthalmology, [facility] [address] [place] [address] Burton Schroeder DO [address] [place] [address] Health Maintenance Due Date Last Done Comments [...] JOB (generalized anxiety disorder) Generalized anxiety disorder Type 1 diabetes mellitus with hemoglobin A1c goal of less than 7.0% (HCC) documented in this encounter Advance Directives Latest Code Status on File Code Status Date Activated Date Inactivated Comments Full Code 02/14/2019 10:34 PM 02/20/2019 3:48 PM This order reflects the patients wishes and were consensually agreed upon. Question Answer Comments Discussion of Advance Directives occurred with: Not Discussed Care Teams Supervisor Instrument Repair Relationship Specialty Start Date End Date Farida Do MD [address] [place] [address] PCP - General Family Medicine 07/17/22 documented as of this encounter
--- OUTSIDE RECORDS SUMMARY | 2023-09-19 10:44 | External Medical Summary | Summary of Care ---
Author Name Unknown Organization [facility] Address [address] [place] [address] Phone [phone] Care Team Providers Care Movie Projectionist Name Role Phone Ryan Leyva MD Primary Care Provider [phone] Reason for Visit * Reason Comments eRx-Medication Refill Encounter Details Date Type Department Care Team (Late st Contact Info) Description 07/24/2023 Refill Family Practice [facility] [address] [place] [address] Ryan Leyva MD [address] [facility] [place] [address] History of drug abuse (HCC); Diabetic Charcot foot (HCC) Allergies Active Allergy Reactions Criticality Noted Date Comments Sulfamethoxazole Rash 06/05/2023 Trimethoprim Rash 06/05/2023 documented as of this encounter (statuses as of 07/25/2023) Medications Medication Sig Dispensed Refills Start Date [...] 06/13/2023 Active Pregabalin 50 MG Oral Capsule (Lyrica)Indications: [...] for Anxiety. 60 Tablet 1 07/22/2023 Active documented as of this encounter (statuses as of 07/25/2023) Active Problems Problem Noted Date Diagnosed Date [...] as of this encounter (statuses as of 07/25/2023) Resolved Problems Problem Noted Date Diagnosed Date [...] as of this encounter (statuses as of 07/25/2023) Immunizations Name Administration Dates Next Due COVID-19 [...] encounter Miscellaneous Notes * Telephone Encounter - Cody Wylie RPh - 07/25/2023 9:35 AM EST Refused Prescriptions: Disp Refills Pregabalin 50 MG Oral Capsule (Lyrica) 90 Cap*0 Sig: Take 1 Capsule by mouth in the morning and 1 Capsule before bedtime.Refused By: CODY WYLIE for Refusal: Too soon documented in this encounter Plan of Treatment Upcoming Encounters Date Type Department Care Team (Late st Contact Info) Description 08/22/2023 11:15 AM EDT Office Visit Ophthalmology, [facility] [address] [place] [address] Burton Schroeder, [address] [place] [address] Scheduled Orders Name Type Priority Associated Diagnoses Orde r Schedule ALBUMIN / CREATININE RATIO, URINE Lab Routine Diabetic Charcot foot (HCC) Expected: 07/25/2023, Expires: 07/25/2024 Health Maintenance Due Date Last Done Comments [...] or unspecified nondependent drug abuse, in remission Diabetic Charcot foot (HCC) Type II or unspecified type diabetes mellitus with neurological manifestations, not stated as uncontrolled documented in this encounter Advance Directives Latest Code Status on File Code Status Date Activated Date Inactivated Comments Full Code 02/14/2019 10:34 PM 02/20/2019 3:48 PM This order reflects the patients wishes and were consensually agreed upon. Question Answer Comments Discussion of Advance Directives occurred with: Not Discussed Care Teams Movie Projectionist Relationship Specialty Start Date End Date Ryan Leyva MD [address] [place] [address] PCP - General Family Medicine 07/17/22 documented as of this encounter
--- OUTSIDE RECORDS SUMMARY | 2023-09-19 10:45 | External Medical Summary | Summary of Care ---
Author Name Unknown Organization [facility] Address [address] [place] [address] Phone [phone] Care Team Providers Care Planetarium Sky Show Technician Name Role Phone Ryan Leyva MD Primary Care Provider [phone] [phone] Encounter Details Date Type Department Care Team ([facility] st Contact Info) Description 07/03/2023 Orders Only PATIENT PORTAL DO NOT DELETE THIS DEPT USED BY [place] [id number] Allergies Active Allergy Reactions Criticality Noted Date Comments Sulfamethoxazole Rash 06/05/2023 Trimethoprim Rash 06/05/2023 documented as of this encounter (statuses as of 07/03/2023) Medications Medication Sig Dispensed Refills Start Date [...] 05/22/2023 Active Santyl 250 UNIT/GM External Ointment 0 [...] before bedtime. 90 Capsule 0 06/25/2023 Active documented as of this encounter (statuses as of 07/03/2023) Active Problems Problem Noted Date Diagnosed Date [...] as of this encounter (statuses as of 07/03/2023) Resolved Problems Problem Noted Date Diagnosed Date [...] as of this encounter (statuses as of 07/03/2023) Immunizations Name Administration Dates Next Due COVID-19 [...] Care Team (Late st Contact Info) Description 07/11/2023 8:30 AM EST Office Visit Dermatology [facility] [address] [facility] [place] [address] Jason Bautista MD [address] [facility] [place] [address] 08/22/2023 11:15 AM EDT Office Visit Ophthalmology, [facility] [address] [place] [address] Burton Schroeder DO [address] [place] [address] Health Maintenance Due Date Last Done Comments [...] Directives occurred with: Not Discussed Care Teams Planetarium Sky Show Technician Relationship Specialty Start Date End Date Ryan Leyva MD [address] [facility] [place] [address] PCP - General Family Medicine 07/17/22 documented as of this encounter
--- OUTSIDE RECORDS SUMMARY | 2023-09-19 10:45 | External Medical Summary | Summary of Care ---
Author Name Unknown Organization [facility] Address [address] [place] [address] Phone [phone] Care Team Providers Care Reforestation Worker Name Role Phone Ryan Leyva MD Primary Care Provider [phone] [phone] Reason for Visit * Reason Onset Date Comments Hospital Follow-Up Hospital Follow-Up 07/01/2023 Encounter Details Date Type Department Care Team ([facility] st Contact Info) Description 07/01/2023 3:20 PM EST Office Visit [facility] [address] [place] [address] Ryan Leyva MD [address] [place] [address] Hospital discharge follow-up*; History of drug abuse (HCC); Necrolytic acral erythema; JOB (generalized anxiety disorder); Hepatitis C virus infection cured after antiviral drug therapy; HTN, goal below 130/80 Allergies Active Allergy Reactions Criticality Noted Date Comments Sulfamethoxazole Rash 06/05/2023 Trimethoprim Rash 06/05/2023 documented as of this encounter (statuses as of 07/01/2023) Medications Medication Sig Dispensed Refills Start Date [...] as of this encounter (statuses as of 07/01/2023) Active Problems Problem Noted Date Diagnosed Date [...] as of this encounter (statuses as of 07/01/2023) Resolved Problems Problem Noted Date Diagnosed Date [...] as of this encounter (statuses as of 07/01/2023) Immunizations Name Administration Dates Next Due COVID-19 [...] Sign Reading Time Taken Comments Blood Pressure 124/80 07/01/2023 3:16 PM EST Pulse 72 07/01/2023 3:16 PM EST Temperature 36.6 C (97.8 F) 07/01/2023 3:16 PM ES T Respiratory Rate - - Oxygen Saturation - - Inhaled Oxygen Concentration - - Weight - - Height - - Body Mass Index - - documented in this encounter Functional Status Functional Status Response Date of Assess ment Does this person have seriou s difficulty walking or climbing stairs? Yes 10/28/2018 documented as of this encounter Progress Notes * Ryan Leyva MD - 07/01/2023 11:11 PM EST SUBJECTIVE: Bernard Jones is a 37 year old male. Chief Complaint Patient presents with Hospital Follow-Up Hospital Follow-Up HPI: Medically complex male here for hospital follow up for left leg cellulitis s/p abx and removal of PICC line. Chronic issues are stable. He has lots of pain complaints. He's very confused about all ofhis hospital results. I spent about a half hour getting him squared away in terms of his medications and results. Explained everything. He seems to understand. He says "derm said my rash if from hep c or a vitamin deficiency." Lots of confusion about what was told to him. I reviewed all of the specialty notes in detail with him. For now he seems to understand. Wants an electric wheelchair. 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 60 Tablet 1 Cyclobenzaprine HCl 10 MG Oral Tablet (Flexeril) Clotrimazole-Betamethasone 1-0.05 % External Cream (Lotrisone) Zinc 220 (50 Zn) MG Oral Capsule Take 220 mg by mouth every morning. Pregabalin 50 MG Oral Capsule (Lyrica) Take 1 Capsule by mouth in the morning and 1 Capsule before bedtime. 90 Capsule 0 Santyl 250 UNIT/GM External Ointment Triamcinolone Acetonide 0.1 % External Cream (Aristocort) Apply topically to affected area 2 times a day. On left forearm and Rt thigh till better 45 g 1 Silvadene 1 % External Cream Apply topically to affected area daily. 50 g 2 No current facility-administered medications for this visit. Allergy: Review of patient's allergies indicates: Allergen Reactions Sulfamethoxazole Rash Trimethoprim Rash OBJECTIVE: BP 124/80 | Pulse 72 | Temp 36.6 C (97.8 F) (Tympanic) Gen: nad Mouth: chewing tobacco during exam; edentulous Lungs: ctab Skin: multiple scabs and rashes all over his body; no active infection seen Heart: rrr, no mrg ASSESSMENT AND PLAN: (Z09) Hospital discharge follow-up (primary encounter diagnosis) Plan: DISCH MED RECON CUR MED LIS (F19.11) History of drug abuse (HCC) Plan: VITAMIN B12, 25-HYDROXY VITAMIN D, VITAMIN C (L53.8) Necrolytic acral erythema Plan: follow with derm; I'm not sure what derm told him but I doubt the rash is from a vitamin deficiency (F41.1) JOB (generalized anxiety disorder) Plan: stable (Z86.19) Hepatitis C virus infection cured after antiviral drug therapy Plan: noted (I10) HTN, goal below 130/80 Plan: stable Follow up as needed. No other complaints were offered at this time. Ryan Leyva MD documented in this encounter Nursing Notes * Tonie Rodriguez LPN - 07/01/2023 3:16 PM EST The patient has been properly identified by confirmation of name and date of . Chief Complaint Patient presents with Hospital Follow-Up documented in this encounter Plan of Treatment Upcoming Encounters Date Type Department Care Team (Late st Contact Info) Description 08/22/2023 11:15 AM EDT Office Visit Ophthalmology, [address] [place] [address] Burton Schroeder, DO [address] [place] [address] Scheduled Orders Name Type Priority Associated Diagnoses Orde r Schedule VITAMIN B12 Lab Routine History of drug abuse (HCC) Expected: 07/01/2023 (Approximate), Expires: 06/30/2024 25-HYDROXY VITAMIN D Lab Routine History of drug abuse (HCC) Expected: 07/01/2023 (Approximate), Expires: 06/30/2024 VITAMIN C Lab Routine History of drug abuse (HCC) Expected: 07/01/2023, Expires: 07/01/2024 Health Maintenance Due Date Last Done Comments [...] as of this encounter Visit Diagnoses Diagnosis Hospital discharge follow-up- Primary Other follow-up examination History of drug abuse (HCC) Other, mixed, or unspecified nondependent drug abuse, in remission Necrolytic acral erythema JOB (generalized anxiety disorder) Generalized anxiety disorder Hepatitis C virus infection cured after antiviral drug therapy HTN, goal below 130/80 Unspecified essential hypertension documented in this encounter Advance Directives Latest Code Status on File Code Status Date Activated Date Inactivated Comments Full Code 02/14/2019 10:34 PM 02/20/2019 3:48 PM This order reflects the patients wishes and were consensually agreed upon. Question Answer Comments Discussion of Advance Directives occurred with: Not Discussed Care Teams Reforestation Worker Relationship Specialty Start Date End Date Ryan Leyva MD [address] [place] [address] PCP - General Family Medicine 07/17/22 documented as of this encounter
--- OUTSIDE RECORDS SUMMARY | 2023-09-19 10:45 | External Medical Summary | Summary of Care ---
Author Name Unknown Organization [facility] Address [address] [place] [address] Phone [phone] Care Team Providers Care Power Tong Operator Name Role Phone Farida Do MD Primary Care Provider [phone] Reason for Referral * Medication Prior Authorization - Closed Specialty Diagnoses / Procedures Referred By Contac t Referred To Contact Diagnoses History of drug abuse (HCC) Farida Do MD [address] [facility] [place] [address] Referral ID Status Reason Start Date Expiration Date Visits Re quested Visits Authorized [id number] Closed [phone] Reason for Visit * Reason Onset Date Comments Medication Refill 06/24/2023 Encounter Details Date Type Department Care Team (Late st Contact Info) Description 06/24/2023 Refill Family Practice [facility] [address] [place] [address] Farida Do MD [address] [facility] [place] [address] History of drug abuse (HCC) Allergies Active Allergy Reactions Criticality Noted Date Comments Sulfamethoxazole Rash 06/05/2023 Trimethoprim Rash 06/05/2023 documented as of this encounter (statuses as of 06/25/2023) Medications Medication Sig Dispensed Refills Start Date [...] 06/13/2023 Active Pregabalin 50 MG Oral Capsule (Lyrica)Toñoo ns:History of drug abuse (HCC) Take 1 Capsule by mouth in the morning and 1 Capsule before bedtime. 90 Capsule 0 06/25/2023 Active Pregabalin 50 MG Oral Capsule (Lyrica)Indicatio ns:History of drug abuse (HCC) take 1 capsule by mouth in the morning, 1 capsule at noon and 1 capsule before bedtime. 90 Capsule 0 04/22/2023 06/24/2023 Discontinue d(Refill) Hospital, Clinic, or Other Facility [...] as of this encounter (statuses as of 06/25/2023) Active Problems Problem Noted Date Diagnosed Date [...] as of this encounter (statuses as of 06/25/2023) Resolved Problems Problem Noted Date Diagnosed Date [...] as of this encounter (statuses as of 06/25/2023) Immunizations Name Administration Dates Next Due COVID-19 [...] encounter Miscellaneous Notes * Telephone Encounter - Francia Vargas LPN - 06/25/2023 1:05 PM ESTSigned Prescriptions: Disp Refills Pregabalin 50 MG Oral Capsule (Lyrica) 90 Cap*0 Sig: Take 1 Capsule by mouth in the morning and 1 Capsule before bedtime.Authorizing Provider: FARIDA DO-- * Telephone Encounter - Francia Vargas LPN - 06/25/2023 1:05 PM EST Sent my g * Telephone Encounter - Farida Do MD - 06/25/2023 1:01 PM ESTSigned Prescriptions: Disp Refills Pregabalin 50 MG Oral Capsule (Lyrica) 90 Cap*0 Sig: Take 1 Capsule by mouth in the morning and 1 Capsule before bedtime. Authorizing Provider: FARIDA DO * Telephone Encounter - Milly Acosta OSA - 06/25/2023 12:52 PM EST Patient calling in to check on the status of previous message. Patient Called within 48 hour timeframe. Reminded patient of 48 hour turn-around time. Pt is completely out of medication and will need to pick it up before 3pm today, asking if this could be expedited. * Telephone Encounter - Burton Elizondo [facility] - 06/25/2023 12:34 PM EST I have reviewed the patients controlled substance dispensing history in the Prescription Drug Monitoring Program in compliance with the [facility] regulations before prescribing a controlled substance. PDMP checked on 06/25/2023. Pending Prescriptions: Disp Refills Pregabalin 50 MG Oral Capsule (Lyrica) 90 Cap*0 Last Visit: 04/19/2023 (in office), 01/14/2023 (telemedicine) Next Visit: 07/01/2023 Date medication was last filled: 05/26/2023 Date medication is due for refill: 06/24/2023 Pharmacy: [id number] [address] [facility] Is this request for a [...] Concentration Please approve if appropriate. Thank you, Shaw Elizondo, PharmD Clinical Pharmacist Centralized Clinical Pharmacy Services (CCPS) 06/25/23 12:34 PM [phone] documented in this encounter Plan of Treatment Upcoming Encounters Date Type Department Care Team (Late st Contact Info) Description 07/01/2023 3:20 PM EST Office Visit [facility] [address] [place] [address] Farida Do MD [address] [place] [address] 08/22/2023 11:15 AM EDT Office Visit Ophthalmology, [facility] [address] [place] [address] uBrton Schroeder DO [address] [place] [address] Health Maintenance Due Date Last Done Comments [...] Directives occurred with: Not Discussed Care Teams Power Tong Operator Relationship Specialty Start Date End Date Farida Do MD [address] [place] [address] PCP - General Family Medicine 07/17/22 documented as of this encounter
--- OUTSIDE RECORDS SUMMARY | 2023-09-19 10:45 | External Medical Summary | Summary of Care ---
Author Name Unknown Organization [facility] Address [address] [place] [address] Phone [phone] Care Team Providers Care Independent Insurance Adjuster Name Role Phone Farida Do MD Primary Care Provider [phone] Reason for Visit * Reason Onset Date Comments Medication Refill 07/21/2023 Encounter Details Date Type Department Care Team (Late st Contact Info) Description 07/21/2023 Refill Family Practice [facility] [address] [place] [address] Farida Do MD [address] [place] [id number] JOB (generalized anxiety disorder) Allergies Active Allergy Reactions Criticality Noted Date Comments Sulfamethoxazole Rash 06/05/2023 Trimethoprim Rash 06/05/2023 documented as of this encounter (statuses as of 07/22/2023) Medications Medication Sig Dispensed Refills Start Date [...] EVERY MORNING 90 Tablet 0 01/26/2023 Active Santyl 250 UNIT/GM External Ointment 0 [...] Oral Capsule (Lyrica)Toñoo ns:History of drug abuse ([facility]) Take 1 Capsule by mouth in the morning and 1 Capsule before bedtime. 90 Capsule 0 06/25/2023 Active clonazePAM 0.5 MG Oral Tablet (KlonoPIN)Indicat ions:JOB (generalized anxiety disorder) Take 1 Tablet by mouth 2 times a day as needed for Anxiety. 60 Tablet 1 07/22/2023 Active clonazePAM 0.5 MG Oral Tablet (KlonoPIN)Indicat ions:JOB (generalized anxiety disorder) Take 1 Tablet by mouth 2 times a day as needed for Anxiety. 60 Tablet 1 05/22/2023 07/21/2023 Discontinue d(Refill) documented as of this encounter (statuses as of 07/22/2023) Active Problems Problem Noted Date Diagnosed Date [...] as of this encounter (statuses as of 07/22/2023) Resolved Problems Problem Noted Date Diagnosed Date [...] as of this encounter (statuses as of 07/22/2023) Immunizations Name Administration Dates Next Due COVID-19 [...] Telephone Encounter - Farida Do MD - 07/22/2023 3:39 PM ESTSigned Prescriptions: Disp Refills clonazePAM 0.5 MG Oral Tablet (KlonoPIN) 60 Tab*1 Sig: Take 1 Tablet by mouth 2 times a day as needed for Anxiety. Authorizing Provider: FARIDA DO * Telephone Encounter - [place] [facility] - 07/22/2023 3:10 PM EST Pending Prescriptions: Disp Refills clonazePAM 0.5 MG Oral Tablet (KlonoPIN) 60 Tab*1 Sig: Take 1 Tablet by mouth 2 times a day as needed for Anxiety. * Telephone Encounter - Jelly Bailey RPh - 07/22/2023 12:05 PM EST I have reviewed the patients controlled substance dispensing history in the Prescription Drug Monitoring Program in compliance with the [facility] regulations before prescribing a controlled substance. PDMP checked on 07/22/2023. Pending Prescriptions: Disp Refills clonazePAM 0.5 MG Oral Tablet (KlonoPIN) 60 Tab*1 Sig: Take 1 Tablet by mouth 2 times a day as needed for Anxiety. Last Visit: 07/01/2023 (in office), 01/14/2023 (telemedicine) Next Visit: Visit date not found Date medication was last filled: 06/25/23 Date medication is due for refill: 07/24/23 Pharmacy: [id number] Is this request for a controlled [...] Cutoff Concentration Please approve if appropriate. Thanks, Jelly Bailey, PharmD Clinical Pharmacist Centralized Clinical Pharmacy Services (CCPS) [phone] 07/22/2023, 12:05 PM documented in this encounter Plan of Treatment Upcoming Encounters Date Type Department Care Team (Late st [facility] Info) Description 08/22/2023 11:15 AM EDT Office Visit Ophthalmology, [facility] [address] [place] [address] Burton Schroeder DO [address] [place] [address] Health Maintenance Due Date Last Done Comments [...] Directives occurred with: Not Discussed Care Teams Independent Insurance Adjuster Relationship Specialty Start Date End Date Farida Do MD [address] [place] [address] PCP - General Family Medicine 07/17/22 documented as of this encounter
--- OUTSIDE RECORDS SUMMARY | 2023-09-19 10:45 | External Medical Summary | Summary of Care ---
Author Name Unknown Organization [facility] Address [address] [place] [address] Phone [phone] Care Team Providers Care Multimedia Producer Name Role Phone Ryan Leyva MD Primary Care Provider [phone] Reason for Visit * Reason Onset Date Comments Advice 06/17/2023 Encounter Details Date Type Department Care Team ([facility] st Contact Info) Description 06/17/2023 Telephone Family Practice [facility] [address] [facility] [place] [address] Ryan Leyva MD [address] [facility] [place] [address] Advice Allergies No known active allergiesdocumented as of this encounter (statuses as of 06/20/2023) Medications Medication Sig Dispensed Refills Start Date [...] hemoglobin A1c goal of less than 7.0% ([facility]) TAKE 1 TABLET BY MOUTH EVERY MORNING 90 Tablet 0 01/26/2023 Active Pregabalin 50 MG Oral Capsule (Lyrica)Indicatio ns:History of drug abuse ([facility]) [...] by mouth every morning. 0 06/13/2023 Active DAPTOmycin-Sodium Chloride 700-0.9 MG/100ML-% Intravenous Solution Administer 450 mg intravenously daily at noon. 0 06/13/2023 Hospital, Clinic, or Other Facility Administered Medication [...] as of this encounter (statuses as of 06/20/2023) Active Problems Problem Noted Date Diagnosed Date [...] as of this encounter (statuses as of 06/20/2023) Resolved Problems Problem Noted Date Diagnosed Date [...] as of this encounter (statuses as of 06/20/2023) Immunizations Name Administration Dates Next Due COVID-19 [...] as of this encounter Miscellaneous Notes * Addendum Note - Fer Barclay MD - 06/20/2023 11:43 AM ESTAddended by: FER BARCLAY on: 06/20/2023 11:43 AM Modules accepted: Orders * Telephone Encounter - Fer Barclay MD - 06/20/2023 11:42 AM EST Signed d/c order under DME -please fax. Per hosp d/c notes, is to be done on 06/19/23. Has missed OV notes--rec reschedule with PCP hospital visit if patient is willing/able * Addendum Note - Samra Jin LPN - 06/20/2023 11:09 AM ESTAddended by: SAMRA JIN on: 06/20/2023 11:09 AM Modules accepted: Orders * Telephone Encounter - Samra Jin LPN - 06/20/2023 11:06 AM EST Helio is still needed order to d/c IV and abx. Have requested it for a couple of days. * Telephone Encounter - Sarahi Álvarez OSA - 06/19/2023 1:10 PM EST Kaylee returning call from [facility] called asking for an update. She stated that the patients last infusion with them in suppose to be on 06/19/23. She is asking for orders from the provider to d/c treatment after the last infusion and to remove the ultrasound guided peripheral line.Please call her to follow up. * Telephone Encounter - Sharon Patterson LPN - 06/18/2023 3:05 PM EST Shara from [facility] calling to give update on. He did got to ER yesterday to have IV replaced but theydidn't given him an extension so he was not able to do his ABx treatment yesterday. Shara saw pt today to give him the extension so he could run the ABX. He originally would have been done with IV ABX tomorrow, 06/19 but now will need to continue until 06/20. After ABX is compete and IV d/c she will continue to make visit for wound care to wound on right cagle. This is FYI * Telephone Encounter - Tonie Rodriguez LPN - 06/18/2023 10:51 AM EST Pt has appt to address this today * Telephone Encounter - Andie Sawyer OSA - 06/18/2023 10:33 AM EST Salina from [facility] called asking for an update. She stated that the patients las infusion with them in suppose to be on 06/19/23. She is asking for orders from the provider to d/c treatment after the last one and to remove the line. If someone can call her to follow up. * Telephone Encounter - Francia Vargas LPN - 06/17/2023 5:52 PM EST Roseanne FINN nurse from [facility]-- States pt is at the ER now pt went as directed has been there since 1430. Pt called her and was asking for us to send in a order for d/c of his IV and replace IV so he did not have to wait at the ER any longer. I advised to Roseanne his PCP is not in office and that is not something we could do. Advised she tell pt he needs to stay at ER to be evaluated and have this IV taken care of, removed,and replaced so he can finish his abx. She said she will tell him. * Telephone Encounter - Sharon Patterson LPN - 06/17/2023 2:19 PM EST HUMA Concerns Shara TAYLOR, Calling from: [facility] Report/Concerns of: IV infiltrate Symptoms: red warm painful to flush Vitals: T98 P74 RR18 BP 122/70 SP O297 Ra Narrative: pt has US guided iv for ABX. At the end of line it is swollen warm and painful to flush.He has a ride to ER at 4 today it this ok to wait or should he go now? He is getting ABX q 24 he would have been done saturday. Called office spoke with Tenisha who was advised it is ok today wait until 4 pm to go to ER. Shara verbalized understanding. * Telephone Encounter - Diana Mendiola OSA - 06/17/2023 2:16 PM EST Reason for patient's call: IV is infiltrated. Shara (home health nurse) would like to know if pt should go to ER to get another IV. He has 3 days left of antibiotic that she knows of. Caller was transferred to Sharon at the nurse line. documented in this encounter Plan of Treatment Upcoming Encounters Date Type Department Care Team (Late st Contact Info) Description 06/21/2023 11:15 AM EST Office Visit Ophthalmology, [facility] [address] [place] [address] Burton Schroeder, [address] [place] [address] Health Maintenance Due Date Last Done Comments [...] as of this encounter Visit Diagnoses Diagnosis Cellulitis, unspecified cellulitis site- Primary documented in this encounter Advance Directives Latest Code Status on File Code Status Date Activated Date Inactivated Comments Full Code 02/14/2019 10:34 PM 02/20/2019 3:48 PM This order reflects the patients wishes and were consensually agreed upon. Question Answer Comments Discussion of Advance Directives occurred with: Not Discussed Care Teams Multimedia Producer Relationship Specialty Start Date End Date Ryan Leyva MD [address] [facility] [place] [address] PCP - General Family Medicine 07/17/22 documented as of this encounter
--- OUTSIDE RECORDS SUMMARY | 2023-09-19 10:45 | External Medical Summary | Summary of Care ---
Author Name Unknown Organization [facility] Address [address] [place] [address] Phone [phone] Care Team Providers Care Water Taxi Boat Mate Name Role Phone Farida Do MD Primary Care Provider [phone] Reason for Referral * Medication Prior Authorization - Closed Specialty Diagnoses / Procedures Referred By Contac t Referred To Contact Diagnoses History of drug abuse (HCC) Farida Do MD [address] [facility] [place] [address] Referral ID Status Reason Start Date Expiration Date Visits Re quested Visits Authorized [id number] Closed [phone] Reason for Visit * Reason Onset Date Comments Medication Refill 06/24/2023 Encounter Details Date Type Department Care Team (Late st Contact Info) Description 06/24/2023 Refill Family Practice [facility] [address] [place] [address] [place] [address] Farida Do MD [address] [facility] [place] [address] History of drug abuse (HCC) Allergies Active [...] expedited. * Telephone Encounter - Burton Elizondo [facility] - 06/25/2023 12:34 PM EST I have reviewed the patients controlled substance dispensing history in the Prescription Drug Monitoring Program in compliance with the [facility] regulations before prescribing a controlled substance. PDMP checked on 06/25/2023. Pending Prescriptions: Disp Refills Pregabalin 50 MG Oral Capsule (Lyrica) 90 Cap*0 Last Visit: 04/19/2023 (in office), 01/14/2023 (telemedicine) Next Visit: 07/01/2023 Date medication was last filled: 05/26/2023 Date medication is due for refill: 06/24/2023 Pharmacy: [id number] [facility] Is this request for a controlled [...] Clinical Pharmacy Services (CCPS) 06/25/23 12:34 PM [phone] documented in this encounter Plan of Treatment Upcoming Encounters Date Type Department Care Team (Late st Contact Info) Description 07/01/2023 3:20 PM EST Office Visit [facility] [address] [place] [address] Farida Do MD [address] [address] 08/22/2023 11:15 AM EDT Office Visit Ophthalmology, [facility] [address] [place] [address] Burton Schroeder DO [address] [place] [address] Health Maintenance Due Date Last Done Comments [...] Directives occurred with: Not Discussed Care Teams Water Taxi Boat Mate Relationship Specialty Start Date End Date Farida Do MD [address] [place] [address] PCP - General Family Medicine 07/17/22 documented as of this encounter
--- OUTSIDE RECORDS SUMMARY | 2023-09-19 10:45 | External Medical Summary | Summary of Care ---
Author Name Unknown Organization [facility] Address [address] [place] [address] Phone [phone] Care Team Providers Care Transition Mgr Rn Name Role Phone Ryan Leyva MD Primary Care Provider [phone] Encounter Details Date Type Department Care Team (Late st Contact Info) Description 07/12/2023 Result Scan Unspecified Department <No scans attached> Allergies Active Allergy Reactions Criticality Noted Date Comments Sulfamethoxazole Rash 06/05/2023 Trimethoprim Rash 06/05/2023 documented as of this encounter (statuses as of 07/16/2023) Medications Medication Sig Dispensed Refills Start Date [...] as of this encounter (statuses as of 07/16/2023) Active Problems Problem Noted Date Diagnosed Date [...] as of this encounter (statuses as of 07/16/2023) Resolved Problems Problem Noted Date Diagnosed Date [...] as of this encounter (statuses as of 07/16/2023) Immunizations Name Administration Dates Next Due COVID-19 [...] 08/22/2023 11:15 AM EDT Office Visit Ophthalmology, [facility] [address] [place] [address] Burton Schroeder, [address] [place] [address] Health Maintenance Due Date Last Done Comments [...] Date/Time Associated Diagnosis Comments OUTSIDE LAB RESULTS 07/12/2023 documented in this encounter Results * OUTSIDE LAB RESULTS (07/12/2023) 07/12/2023 No Physician Data Unknown LABORATORY documented in this encounter Advance Directives Latest Code Status on File Code Status Date Activated Date Inactivated Comments Full Code 02/14/2019 10:34 PM 02/20/2019 3:48 PM This order reflects the patients wishes and were consensually agreed upon. Question Answer Comments Discussion of Advance Directives occurred with: Not Discussed Care Teams Transition Mgr Rn Relationship Specialty Start Date End Date Ryan Leyva MD [address] [facility] [place] [address] PCP - General Family Medicine 07/17/22 documented as of this encounter
--- OUTSIDE RECORDS SUMMARY | 2023-09-19 10:45 | External Medical Summary | Summary of Care ---
Author Name Unknown Organization [facility] Address [address] [place] [address] Phone [phone] Care Team Providers Care Cloth Desizing Range Operator Chief Name Role Phone Ryan Leyva MD Primary Care Provider [phone] Reason for Visit * Reason Onset Date Comments Advice 03/28/2023 Encounter Details Date Type Department Care Team ([facility] st Contact Info) Description 03/28/2023 Telephone Podiatry [facility] [address] [place] [address] Services, Scheduling [address] [place] [address] Advice Allergies Active Allergy Reactions Criticality Noted Date Comments Sulfamethoxazole Rash 06/05/2023 Trimethoprim Rash 06/05/2023 documented as of this encounter (statuses as of 06/27/2023) Medications Medication Sig Dispensed Refills Start Date [...] Active Rosuvastatin Calcium 10 MG Oral Tablet (Crestor)Indica tions:Type 1 diabetes mellitus with hemoglobin A1c goal of less than 7.0% (HCC) TAKE 1 TABLET BY MOUTH EVERY MORNING 90 Tablet 0 01/26/2023 Active Sulfamethoxazol e-Trimethoprim 400-80 MG Oral Tablet (Bactrim) Take 1 Tablet by mouth in the morning. Take three times a week. 0 07/17/2022 05/31/20 23 Discontinued(End of Procedure) methylPREDNISol one 4 MG Oral Tablet Therapy Pack (Medrol Dosepack) follow package directions 21 Tablet 0 03/18/2023 04/19/20 23 Discontinued Pregabalin 50 MG Oral Capsule (Lyrica)Indicat ions:History of drug abuse (HCC) TAKE 1 CAPSULE BY MOUTH IN THE MORNING, 1 CAPSULE AT NOON AND 1 CAPSULE BEFORE BEDTIME. 90 Capsule 0 03/20/2023 04/22/20 23 Discontinued Hospital, Clinic, or Other Facility Administered [...] as of this encounter (statuses as of 06/27/2023) Active Problems Problem Noted Date Diagnosed Date [...] as of this encounter (statuses as of 06/27/2023) Resolved Problems Problem Noted Date Diagnosed Date [...] as of this encounter (statuses as of 06/27/2023) Immunizations Name Administration Dates Next Due COVID-19 [...] Telephone Encounter - Norma Boudreaux LPN - 03/28/2023 10:40 AM EDT Spoke to pt, states the cortisone injection in left foot only helped reduce pain for a few days. States his lower legs and feet are very swollen, painful to walk to bathroom in the morning. Pads Dr Person advised for in shoes are making foot pain worse. Pt asking what else can he do? Pt has appt scheduled 04.05.[address] Person[address] Norma MACE * Telephone Encounter - Lucille Noel OSA - 03/28/2023 8:43 AM EDT Delfina, Mr. Jones called stating that the Steroid medication that was prescribed to him is not working. He's requesting for a Nurse to contact him regarding the medication as well some concerns he has with his legs. Call back phone # [phone] Thank you documented in this encounter Plan of Treatment Upcoming Encounters Date Type Department Care Team (Late st Contact Info) Description 07/01/2023 3:20 PM EST Office Visit Family Practice [facility] [address] [place] [address] Ryan Leyva MD [address] [place] [address] 08/22/2023 11:15 AM EDT Office Visit Ophthalmology, [facility] [address] [place] [address] Burton Schroeder, [address] [place] [address] Health Maintenance Due Date Last Done Comments [...] occurred with: Not Discussed Care Teams Cloth Desizing Range Operator Chief Relationship Specialty Start Date End Date Ryan Leyva MD [address] [place] [address] PCP - General Family Medicine 07/17/22 documented as of this encounter
--- OUTSIDE RECORDS SUMMARY | 2023-09-19 10:45 | External Medical Summary | Summary of Care ---
Author Name Unknown Organization [facility] Address [address] [place] [address] Phone [phone] Care Team Providers Care Orthodontist Name Role Phone Ryan Leyva MD Primary Care Provider [phone] [phone] Reason for Visit * Reason Comments eRx-Medication Refill Encounter Details Date Type Department Care Team (Late st Contact Info) Description 06/24/2023 Refill Family Practice [facility] [address] [place] [address] Ryan Leyva MD [address] [place] [address] History of drug abuse (HCC) Allergies Active [...] 01/26/2023 Active Pregabalin 50 MG Oral Capsule (Lyrica)Indications: History of drug abuse ([facility]) take 1 capsule by mouth in the morning, 1 capsule at noon and 1 capsule before bedtime. 90 Capsule 0 04/22/2023 Active clonazePAM 0.5 MG Oral Tablet (KlonoPIN)Indication [...] by mouth every morning. 0 06/13/2023 Active Hospital, Clinic, or Other Facility Administered [...] encounter Miscellaneous Notes * Telephone Encounter - Burton Elizondo [facility] - 06/25/2023 12:35 PM EST Refused Prescriptions: Disp Refills Pregabalin 50 MG Oral Capsule (Lyrica) 90 Cap*0 Sig: take 1 capsule by mouth in the morning, 1 capsule at noon and 1 capsule before bedtime.Refused By: BURTON ELIZONDO [facility] for Refusal: Duplicate Request documented in this encounter Plan of Treatment Upcoming Encounters Date Type Department Care Team (Late st Contact Info) Description 07/01/2023 3:20 PM EST Office Visit Family Practice [facility] [address] [place] [address] Ryan Leyva MD [address] [place] [address] 08/22/2023 11:15 AM EDT Office Visit Ophthalmology, [facility] [address] [place] [address] Burton Schroeder DO [address] [place] [address] Health Maintenance Due Date Last Done Comments [...] Directives occurred with: Not Discussed Care Teams Orthodontist Relationship Specialty Start Date End Date Ryan Leyva MD [address] [place] [address] PCP - General Family Medicine 07/17/22 documented as of this encounter
--- OUTSIDE RECORDS SUMMARY | 2023-09-19 10:45 | External Medical Summary | Summary of Care ---
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, bilateral (HCC) Procedures CT BEVACIZUMAB INJECTION INJECTION OF EYE DRUG Burton Schroeder DO [address] [place] [address] Ophthalmology [facility] [address] [facility] [address] Referral ID Status Reason Start Date Expiration Date V isits Requested Visits Authorized [id number] Authorized Precert 05/31/2022 06/09/2099 [id number] Encounter Details Date Type Department Care Team (Late st Contact Info) Description 06/21/2023 11:15 AM EST Office Visit Ophthalmology, [facility] [address] [facility] [place] [address] Burton Schroeder DO [address] [place] [address] Proliferative diabetic retinopathy of both eyes associated with type 1 diabetes mellitus, unspecified proliferative retinopathy type (HCC)* Allergies Active Allergy Reactions Criticality Noted Date Comments Sulfamethoxazole Rash 06/05/2023 Trimethoprim Rash 06/05/2023 documented as of this encounter (statuses as of 06/21/2023) Medications Medication Sig Dispensed Refills Start Date [...] as of this encounter (statuses as of 06/21/2023) Active Problems Problem Noted Date Diagnosed Date [...] as of this encounter (statuses as of 06/21/2023) Resolved Problems Problem Noted Date Diagnosed Date [...] as of this encounter (statuses as of 06/21/2023) Immunizations Name Administration Dates Next Due COVID-19 [...] Progress Notes * Burton Schroeder DO - 06/21/2023 11:15 AM EST [facility] [place] Nursing notes reviewed. Mood and affect: normal HPI: Bernard Jones is a 37 year old male who presents for PDR OU. Base Eye Exam Visual Acuity (Snellen - Linear) Right Left Dist sc 20/80 -2 20/70 Dist ph sc NI NI Tonometry (Tonopen, 11:39 AM) Right Left Pressure 11 11 Pupils Pupils APD Right PERRL None Left PERRL None Visual Rowe (Counting fingers) Right Left Restrictions Total inferior temporal deficiency Total superior nasal, inferior nasal deficiencies Extraocular Movement Right Left Full, Ortho Full, Ortho Neuro/Psych Oriented x3: Yes Mood/Affect: Normal Dilation Both eyes: 0.5% Proparacaine @ 11:39 AM Dilation #2 Both eyes: 1.0% Mydriacyl, 2.5% Phenylephrine @ 11:39 AM Dilation Comments Patient cautioned that effects of dilation may last 2-7 hours dependant upon individual reaction. It was discussed that driving while dilated is not recommended. Strabismus Exam Correction: pr Observations: Ortho Distance Near Near +3DS N Bifocals cover/uncover, and alternate cover EXTERNAL: The ocular adnexae are unremarkable. SLE: Lids/Lashes: wnl OU Conjunctiva/Sclera: quiet OU Cornea: clear OU Anterior Chamber: deep and quiet OU Iris: normal OU; no NVI OU Lens: +nsc OU Dilated fundus exam OD: pt refused dilation vitreous: VH--worse optic nerve: 0.3, regressed NVD; no edema/pallor macula: +zipper trimmer vessels: ischemic midperiphery: +PRP, segmented membranes periphery: +zipper trimmer, +PRP, no RT/RD Dilated fundus exam OS: vitreous: +VH-improved optic nerve: 0.3, +segmented fibrovascular tuft, no edema/pallor/NVD macula: +zipper trimmer vessels: ischemic midperiphery: +PRP, segmented membranes periphery: +zipper trimmer, +PRP, segmented fibrovascular membranes, no RT/RD OCT [...] 10-09-18, 05-22-18, 12-05-17, 08-08-2017, 04-19-17, 11-22-16, 08-17-16) -6 months OS: -PDR w/ dme on presentation -s/p 23G PPV/EL/segmentation OS for PDR OS -surgery date: 09/10/2016 -s/p Avastin OS (08/10/22, 06/29/22--[facility], 03-16-20, 08-07-19-Sunita, 06-02-20, 03-18-19, 07-08-18, 02-21-17, 09/05/16, 07/24/16) -VH 04/09/2023 -Avastin OS 04/09/23 -had pancreas/kidney transplant 04/30 [facility] 2. Dry eye -recommend OTC preservative-free [...] Nursing Notes * Pool Hoyos RN - 06/21/2023 11:58 AM EST Bernard Jones to receive #13 Avastin 1.25mg Injection of the Right eye. Correct eye confirmed with patient and marked by Burton Schroeder DO Avastin 1.25mg lot # [id number] Exp. Date: 07/11/23 * Lucille Loo RN - 06/21/2023 11:26 AM EST Bernard Jones is a 37 year old year old male who presents for pdr ou. Last Office Visit: 04/09/2023 (in office), Visit date not found (telemedicine) Patient currently states "FLOATERS AND BLURRY RIGHT EYE" Are you diabetic? Yes. Do you check your blood sugars daily? YES. Fasting BS this mornin mg/dl. Last Hemoglobin A1C: Lab Results Component Value Date/Time HGBA1C 5.2 06/14/2023 12:00 AM HGBA1C 5.1 04/04/2023 12:00 AM HGBA1C 4.9 12/03/2022 12:00 AM HGBA1C 5.2 11/01/2021 10:22 AM HGBA1C 5.3 09/14/2021 09:15 AM HGBA1C 5.2 09/08/2021 09:12 AM HGBA1C 8.0 (H) 12/07/2019 12:02 PM HGBA1C 13.8 (H) 02/14/2019 02:56 PM HGBA1C 14.0 (H) 10/28/2018 02:[address]? no OCT image(s) of both eyes acquired and filed/scanned into chart. documented in this encounter Plan of Treatment Upcoming Encounters Date Type Department Care Team (Late st Contact Info) Description 07/01/2023 3:20 PM EST Office Visit Family Practice [facility] [address] [place] [address] Ryan Leyva MD [address] [place] [address] 08/22/2023 11:15 AM EDT Office Visit Ophthalmology, [facility] [address] [place] [address] Burton Schroeder DO [address] [place] [address] Scheduled Orders Name Type Priority Associated Diagnoses Orde r Schedule RETINA SCAN DIAGNOSTIC IMAGE, POSTERIOR Procedures Routine Proliferative diabetic retinopathy of both eyes associated with type 1 diabetes mellitus, unspecified proliferative retinopathy type (HCC) Ordered: 06/21/2023 Health Maintenance Due Date Last Done Comments [...] type (HCC)- Primary documented in this encounter Administered Medications Active Administered Medications - up to 3 most recent administrations Medication Order MAR Action Action Date Dose Rate Site bevaCIZumab (Avastin) inj 1.25 mg 1.25 mg, Intravitreal, PRN Other, Starting on Sat06/29/22 at 1339, Until 06/29/23 at 1338, For 365 days Given 06/21/2023 11:59 AM EST 1.25 mg Eye Right Given 04/09/2023 10:45 AM EDT 1.25 mg E ye Left Given 12/17/2022 1:27 PM EDT 1.25 mg Ey e Right ROPivacaine (Naropin) inj 1.5 mg 1.5 mg, Perineural, PRN Other, Starting on Sat06/29/22 at 1339, Until 06/29/23 at 1338, For 365 days Given 06/21/2023 12:00 PM EST 1.5 mg Eye Right Given 04/09/2023 10:45 AM EDT 1.5 mg E ye Left Given 12/17/2022 1:26 PM EDT 1.5 mg Ey e Right documented in this encounter Advance Directives Latest Code Status on File Code Status Date Activated Date Inactivated Comments Full Code 02/14/2019 10:34 PM 02/20/2019 3:48 PM This order reflects the patients wishes and were consensually agreed upon. Question Answer Comments Discussion of Advance Directives occurred with: Not Discussed Care Teams Qa Analyst Relationship Specialty Start Date End Date Ryan Leyva MD [address] [place] [address] PCP - General Family Medicine 07/17/22 documented as of this encounter
--- OUTSIDE RECORDS SUMMARY | 2023-09-19 10:45 | External Medical Summary | Summary of Care ---
Author Name Unknown Organization [facility] Address [address] [place] [address] Phone [phone] Care Team Providers Care Hardware Manager Name Role Phone Ryan Leyva MD Primary Care Provider [phone] Encounter Details Date Type Department Care Team (Late st Contact Info) Description 06/05/2023 Result Scan Unspecified Department <No scans attached> Allergies Active Allergy Reactions Criticality Noted Date Comments Sulfamethoxazole Rash 06/05/2023 Trimethoprim Rash 06/05/2023 documented as of this encounter (statuses as of 07/04/2023) Medications Medication Sig Dispensed Refills Start Date [...] area daily. 50 g 2 05/31/2023 Active documented as of this encounter (statuses as of 07/04/2023) Active Problems Problem Noted Date Diagnosed Date [...] as of this encounter (statuses as of 07/04/2023) Resolved Problems Problem Noted Date Diagnosed Date [...] as of this encounter (statuses as of 07/04/2023) Immunizations Name Administration Dates Next Due COVID-19 [...] 07/11/2023 8:30 AM EST Office Visit Dermatology [facility] [address] [facility] [place] [address] Jason Bautista MD [address] [facility] [place] [address] 08/22/2023 11:15 AM EDT Office Visit Ophthalmology, [facility] [address] [place] [address] Burton Schroeder DO [address] [place] [address] Health Maintenance Due Date Last Done Comments [...] Date/Time Associated Diagnosis Comments OUTSIDE LAB RESULTS 06/12/2023 ECHOCARDIOLOGY SCANNED RESULT 06/11/2023 RADIOLOGY SCANNED RESULT 06/09/2023 RADIOLOGY SCANNED RESULT 06/09/2023 RADIOLOGY SCANNED RESULT 06/05/2023 RADIOLOGY SCANNED RESULT 06/05/2023 RADIOLOGY SCANNED RESULT 06/04/2023 documented in this encounter Results * OUTSIDE LAB RESULTS (06/12/2023) 06/12/2023 No Physician Data Unknown LABORATORY * ECHOCARDIOLOGY SCANNED RESULT (06/11/2023) 06/11/2023 No Physician Data Unknown ECHOCARDIOLOGY * RADIOLOGY SCANNED RESULT (06/09/2023) 06/09/2023 No Physician Data Unknown DIAGNOSTIC RAD IOLOGY SERVICES * RADIOLOGY SCANNED RESULT (06/09/2023) 06/09/2023 No Physician Data Unknown DIAGNOSTIC RAD IOLOGY SERVICES * RADIOLOGY SCANNED RESULT (06/05/2023) 06/05/2023 No Physician Data Unknown DIAGNOSTIC RAD IOLOGY SERVICES * RADIOLOGY SCANNED RESULT (06/05/2023) 06/05/2023 No Physician Data Unknown DIAGNOSTIC RAD IOLOGY SERVICES * RADIOLOGY SCANNED RESULT (06/04/2023) 06/04/2023 No Physician Data Unknown DIAGNOSTIC RAD IOLOGY SERVICES documented in this encounter Advance Directives Latest Code Status on File Code Status Date Activated Date Inactivated Comments Full Code 02/14/2019 10:34 PM 02/20/2019 3:48 PM This order reflects the patients wishes and were consensually agreed upon. Question Answer Comments Discussion of Advance Directives occurred with: Not Discussed Care Teams Hardware Manager Relationship Specialty Start Date End Date Ryan Leyva MD [address] [place] [address] PCP - General Family Medicine 07/17/22 documented as of this encounter
--- OUTSIDE RECORDS SUMMARY | 2023-09-19 10:45 | External Medical Summary | Summary of Care ---
Author Name Unknown Organization [facility] Address [address] [place] [address] Phone [phone] Care Team Providers Care Slasher Tender Name Role Phone Ryan Leyva MD Primary Care Provider [phone] Reason for Visit * Reason Onset Date Comments Advice 06/17/2023 Encounter Details Date Type Department Care Team ([facility] st Contact Info) Description 06/17/2023 Telephone Family Practice [facility] [address] [facility] [place] [address] Ryan Leyva MD [address] [facility] [place] [address] Advice Allergies No known active allergiesdocumented as [...] hemoglobin A1c goal of less than 7.0% ([facility]) TAKE 1 TABLET BY MOUTH EVERY MORNING 90 Tablet 0 01/26/2023 Active Pregabalin 50 MG Oral Capsule (Lyrica)Indicatio ns:History of drug abuse ([facility]) take 1 capsule by mouth in [...] Encounter - Samra Jin LPN - 06/20/2023 12:03 PM EST Faxed order to [employer]. and [phone] * Addendum Note - Fer Barclay MD [...] 1:10 PM EST Kaylee returning call from [facility] called asking for an update. [...] - 06/18/2023 3:05 PM EST Shara from HH calling to give update on. He did [...] - 06/18/2023 10:33 AM EST Salina from [facility] called asking for an update. She stated that the patients las infusion with them in suppose to be on 06/19/23. She is asking for orders from the provider to d/c treatment after the last one and to remove the line. If someone can call her to follow up. * Telephone Encounter - Francia Vargas LPN - 06/17/2023 5:52 PM EST Roseanne nurse from [facility]-- States pt is at the ER now pt went as directed has been there since 0. Pt called her and was asking for [...] Patterson LPN - 06/17/2023 2:19 PM EST Concerns Shara RN, Calling from: [facility] Report/Concerns of: IV infiltrate Symptoms: red warm [...] she knows of. Caller was transferred to [place] at the nurse line. documented in this encounter Plan of Treatment Upcoming Encounters Date Type Department Care Team (Late st Contact Info) Description 06/21/2023 11:15 AM EST Office Visit Ophthalmology, [facility] [address] [place] [address] Burton Schroeder, [address] [place] [address] Health Maintenance Due Date Last Done Comments [...] 09/15/2021, Additional history exists GFR 06/17/2024 06/17/2023, 0 10/2023, 04/04/2023, Additional history exists DTaP,Tdap,and Td [...] Directives occurred with: Not Discussed Care Teams Slasher Tender Relationship Specialty Start Date End Date Ryan Leyva MD [address] [place] [address] PCP - General Family Medicine 07/17/22 documented as of this encounter
--- OUTSIDE RECORDS SUMMARY | 2023-09-19 10:45 | External Medical Summary | Summary of Care ---
Author Name Unknown Organization [facility] Address [address] [place] [address] Phone [phone] Care Team Providers Care Pie Icer Machine Name Role Phone Ryan Leyva MD Primary Care Provider [phone] Encounter Details Date Type Department Care Team (Late st Contact Info) Description 07/04/2023 Orders Only Family [facility] [address] [place] [address] Ryan Leyva MD [address] [place] [address] Allergies Active Allergy Reactions Criticality Noted Date [...] 07/11/2023 8:30 AM EST Office Visit Dermatology [facility] [address] [facility] [place] [address] Jason Bautista MD [address] [facility] [place] [address] 08/22/2023 11:15 AM EDT Office Visit Ophthalmology, [facility] [address] [place] [address] Burton Schroeder DO [address] [place] [address] Health Maintenance Due Date Last Done Comments [...] Associated Diagnosis Comments HEPATITIS C ANTIBODY Routine 06/07/2023 documented in this encounter Results * HEPATITIS C ANTIBODY (06/07/2023) Blood Venous blood specimen / Unknown 06/07/2023 History Per Patient LAB BLOOD ORDERABLES OUTSIDE LAB (SEE SCANNED REPORT) documented in this encounter Advance Directives Latest Code Status on File Code Status Date Activated Date Inactivated Comments Full Code 02/14/2019 10:34 PM 02/20/2019 3:48 PM This order reflects the patients wishes and were consensually agreed upon. Question Answer Comments Discussion of Advance Directives occurred with: Not Discussed Care Teams Pie Icer Machine Relationship Specialty Start Date End Date Ryan Leyva MD [address] [place] [address] PCP - General Family Medicine 07/17/22 documented as of this encounter
--- OUTSIDE RECORDS SUMMARY | 2023-09-19 10:46 | External Medical Summary | Summary of Care ---
Author Name Unknown Organization [facility] Address [address] [place] [address] Phone [phone] Care Team Providers Care Stone Dresser Name Role Phone Ryan Leyva MD Primary Care Provider [phone] [phone] Reason for Visit * Reason Onset Date Comments Advice 06/17/2023 Encounter Details Date Type Department Care Team ([facility] st Contact Info) Description 06/17/[address] [facility] [address] [facility] [place] [address] Ryan Leyva MD [address] [facility] [place] [address] Advice Allergies No known active allergiesdocumented as of this encounter (statuses as of 06/19/2023) Medications Medication Sig Dispensed Refills Start Date [...] goal of less than 7.0% ([facility]) TAKE 1 TABLET BY MOUTH EVERY MORNING 90 Tablet 0 01/26/2023 Active Pregabalin 50 MG Oral Capsule (Lyrica)Indicatio ns:History of drug abuse ([facility]) take [...] area daily. 50 g 2 05/31/2023 Active DAPTOmycin-Sodium Chloride 700-0.9 MG/100ML-% Intravenous Solution Administer 450 mg intravenously daily at noon. 0 06/13/2023 06/19/2023 Active Zinc 220 (50 Zn) MG Oral [...] as of this encounter (statuses as of 06/19/2023) Active Problems Problem Noted Date Diagnosed Date [...] as of this encounter (statuses as of 06/19/2023) Resolved Problems Problem Noted Date Diagnosed Date [...] as of this encounter (statuses as of 06/19/2023) Immunizations Name Administration Dates Next Due COVID-19 [...] encounter Miscellaneous Notes * Telephone Encounter - Sarahi Álvarez OSA - 06/19/2023 1:10 PM EST Kaylee returning call from [facility] called asking for an update. [...] - 06/18/2023 10:33 AM EST Salina from [facility] called asking for an update. [...] 06/17/2023 5:52 PM EST Roseanne nurse from [facility]-- States pt is at the ER now [...] PM EST Concerns Shara RN, Calling from: [facility] Report/Concerns of: IV infiltrate Symptoms: red warm painful to flush Vitals: T98 P74 RR18 BP 122/70 SP O297 Ra Narrative: pt has US guided iv for ABX. At the end of line it is swollen warm and painful to flush.He has a ride to ER at 4 today it this ok to wait or should he go now? He is getting ABX q he would have been done saturday. Called [...] 06/21/2023 11:15 AM EST Office Visit Ophthalmology, [facility] [address] [place] [address] Burton Schroeder, DO [address] [place] [address] Health Maintenance Due Date Last Done Comments [...] Directives occurred with: Not Discussed Care Teams Stone Dresser Relationship Specialty Start Date End Date Ryan Leyva MD [address] [place] [address] PCP - General Family Medicine 07/17/22 documented as of this encounter
--- OUTSIDE RECORDS SUMMARY | 2023-09-19 10:46 | External Medical Summary | Summary of Care ---
Author Name Unknown Organization [facility] Address [address] [place] [address] Phone [phone] Care Team Providers Care Bleaching Machine Operator Name Role Phone Ryan Leyva MD Primary Care Provider [phone] [phone] Encounter Details Date Type Department Care Team (Late st Contact Info) Description 06/17/2023 Orders Only Family [facility] [address] [place] [address] Ryan Leyva MD [address] [place] [address] Allergies No known active allergiesdocumented as of [...] A1c goal of less than 7.0% ([facility]) TAKE 1 TABLET BY MOUTH EVERY MORNING 90 Tablet 0 01/26/2023 Active Pregabalin 50 MG Oral Capsule (Lyrica)Indicatio ns:History of drug abuse ([facility]) take 1 capsule by mouth in [...] mg intravenously daily at noon. 0 06/13/2023 4 Hospital, Clinic, or Other Facility Administered Medication [...] 06/21/2023 11:15 AM EST Office Visit Ophthalmology, [facility] [address] [place] [address] Burton Schroeder DO [address] [place] [address] Health Maintenance Due Date Last Done Comments [...] Priority Date/Time Associated Diagnosis Comments CHEMISTRY-OUTSIDE Routine 06/14/2023 documented in this encounter Results * CHEMISTRY-OUTSIDE (06/14/2023) Not all results display below - see scan for full detail OUTSIDE LAB (SEE SCANNED REPORT) Comment:SCAN INCLUDES: CBCD, A1C, MPG CREATININE-OUTSID E LAB OUTSIDE LAB (SEE SCANNED REPORT) EGFR-OUTSIDE LAB OUT SIDE LAB (SEE SCANNED REPORT) POTASSIUM-OUTSIDE LAB OUTSIDE LAB (SEE SCANNED REPORT) GLUCOSE-OUTSIDE LAB OUTSIDE LAB (SEE SCANNED REPORT) HOURS FASTING [...] LAB OUTSIDE LAB (SEE SCANNED REPORT) HEMOGLOBIN, H1I-SPPCERE LAB 5.2 3.8 - 5.6 % OUTSIDE LAB (SEE SCANNED REPORT) PHOSPHORUS-OUTSID E LAB OUTSIDE LAB (SEE SCANNED REPORT) PTH-OUTSIDE LAB OUTS ANÍBAL LAB (SEE SCANNED REPORT) MICROALBUMIN RATIO-OUTSIDE LAB OUTSIDE LA B (SEE SCANNED REPORT) PROTEIN, UA-OUTSIDE LAB OUTSIDE LAB (SEE SCANNED REPORT) HEMOGLOBIN-OUTSID E LAB 15.9 13.5 - 18.0 GM/DL OUTSIDE LAB (SEE SCANNED REPORT) 06/14/2023 Star Schmidt MD LABORATORY OUTSIDE LAB (SEE SCANNED REPORT) documented in this encounter Advance Directives Latest Code Status on File Code Status Date Activated Date Inactivated Comments Full Code 02/14/2019 10:34 PM 02/20/2019 3:48 PM This order reflects the patients wishes and were consensually agreed upon. Question Answer Comments Discussion of Advance Directives occurred with: Not Discussed Care Teams Bleaching Machine Operator Relationship Specialty Start Date End Date Ryan Leyva MD [address] [place] [address] PCP - General Family Medicine 07/17/22 documented as of this encounter
--- OUTSIDE RECORDS SUMMARY | 2023-09-19 10:46 | External Medical Summary | Summary of Care ---
Author Name Unknown Organization [facility] Address [address] [place] [address] Phone [phone] Care Team Providers Care Equine Manager Name Role Phone Ryan Leyva MD Primary Care Provider +1 -[phone] Reason for Visit * Reason Onset Date Comments Advice 06/17/2023 Encounter Details Date Type Department Care Team ([facility] st Contact Info) Description 06/17/2023 Telephone Family Practice [facility] [address] [facility] [place] [address] Ryan Leyva MD [address] [facility] [place] [address] Advice Allergies No known active allergiesdocumented as of this encounter (statuses as of 06/18/2023) Medications Medication Sig Dispensed Refills Start Date [...] Oral Capsule (Lyrica)Indicatio ns:History of drug abuse ([facility]) [...] as of this encounter (statuses as of 06/18/2023) Active Problems Problem Noted Date Diagnosed Date [...] as of this encounter (statuses as of 06/18/2023) Resolved Problems Problem Noted Date Diagnosed Date [...] as of this encounter (statuses as of 06/18/2023) Immunizations Name Administration Dates Next Due COVID-19 [...] encounter Miscellaneous Notes * Telephone Encounter - Andie Sawyer OSA - 06/18/2023 10:33 AM EST Salina from [facility] infusion called asking for an update. [...] 5:52 PM EST Roseanne FINN nurse from [facility]-- States pt is at the ER now [...] Patterson LPN - 06/17/2023 2:19 PM EST HH Concerns Shara RN, Calling from: [facility] Report/Concerns of: IV infiltrate Symptoms: red warm [...] she knows of. Caller was transferred to [place] at the nurse line. documented in this encounter Plan of Treatment Upcoming Encounters Date Type Department Care Team (Late st Contact Info) Description 06/18/2023 3:20 PM EST Office Visit Family Practice [facility] [address] [place] [address] Ryan Leyva MD [address] [place] [address] 07/02/2023 7:45 AM EST Office Visit Ophthalmology, [facility] [address] [place] [address] Burton Schroeder DO [address] [place] [address] Health Maintenance Due Date Last Done Comments [...] 12/17/2022, , 09/15/2021, Additional history exists GFR 06/14/2024 06/14/2023, 03/11, 12/03/2022, Additional history exists DTaP,Tdap,and Td Vaccines (3 [...] Directives occurred with: Not Discussed Care Teams Equine Manager Relationship Specialty Start Date End Date Ryan Leyva MD [address] [facility] [place] [address] PCP - General Family Medicine 07/17/22 documented as of this encounter
--- OUTSIDE RECORDS SUMMARY | 2023-09-19 10:46 | External Medical Summary | Summary of Care ---
Author Name Unknown Organization [facility] Address [address] [place] [address] Phone [phone] Care Team Providers Care Stock Analyst Name Role Phone Ryan Leyva MD Primary Care Provider +1 [phone] Encounter Details Date Type Department Care Team (Late st Contact Info) Description 06/14/2023 Result Scan Unspecified Department <No scans attached> [...] 3:20 PM EST Office Visit Family Practice [facility] [address] [place] [address] Ryan Leyva MD [address] [place] [address] 07/02/2023 7:45 AM EST Office Visit Ophthalmology, [facility] [address] [place] [place] [address] Burton Schroeder DO [address] [place] [address] Health Maintenance Due Date Last Done Comments [...] Date/Time Associated Diagnosis Comments OUTSIDE LAB RESULTS 06/14/2023 documented in this encounter Results * OUTSIDE LAB RESULTS (06/14/2023) 06/14/2023 No Physician Data Unknown LABORATORY documented in this encounter Advance Directives Latest Code Status on File Code Status Date Activated Date Inactivated Comments Full Code 02/14/2019 10:34 PM 02/20/2019 3:48 PM This order reflects the patients wishes and were consensually agreed upon. Question Answer Comments Discussion of Advance Directives occurred with: Not Discussed Care Teams Stock Analyst Relationship Specialty Start Date End Date Ryan Leyva MD [address] [place] [address] PCP - General Family Medicine 07/17/22 documented as of this encounter
--- OUTSIDE RECORDS SUMMARY | 2023-09-19 10:46 | External Medical Summary | Summary of Care ---
Author Name Unknown Organization [facility] Address [address] [place] [address] Phone [phone] Care Team Providers Care Outside Sales Executive Name Role Phone Ryan Leyva MD Primary Care Provider +1 [phone] Reason for Visit * Reason Onset Date Comments Advice 06/17/2023 Encounter Details Date Type Department Care Team ([facility] st Contact Info) Description 06/17/2023 Telephone Family Practice [facility] [address] [facility] [place] [address] Ryan Leyva MD [address] [facility] [place] [address] Advice Allergies No known active allergiesdocumented as of this encounter (statuses as of 06/17/2023) Medications Medication Sig Dispensed Refills Start Date [...] than 7.0% ([facility]) TAKE 1 TABLET BY MOUTH EVERY MORNING 90 Tablet 0 01/26/2023 Active Pregabalin 50 MG Oral Capsule (Lyrica)Indicatio ns:History of drug abuse ([facility]) take 1 capsule by mouth in the [...] as of this encounter (statuses as of 06/17/2023) Active Problems Problem Noted Date Diagnosed Date [...] as of this encounter (statuses as of 06/17/2023) Resolved Problems Problem Noted Date Diagnosed Date [...] as of this encounter (statuses as of 06/17/2023) Immunizations Name Administration Dates Next Due COVID-19 [...] Miscellaneous Notes * Telephone Encounter - Francia VargasNAKITA - 06/17/2023 5:52 PM EST Roseanne FINN nurse from [facility]-- States pt is at the ER now [...] LPN - 06/17/2023 2:19 PM EST Concerns Shaar RN, Calling from: [facility] Report/Concerns of: IV infiltrate Symptoms: red warm [...] she knows of. Caller was transferred to [place] at the nurse line. documented in this encounter Plan of Treatment Upcoming Encounters Date Type Department Care Team (Late st Contact Info) Description 06/18/2023 3:20 PM EST Office Visit [facility] [address] [place] [address] Ryan Leyva MD [address] [place] [address] 07/02/2023 7:45 AM EST Office Visit Ophthalmology, [facility] [address] [place] [address] Burton Schroeder DO [address] [place] [address] Health Maintenance Due Date Last Done Comments [...] Directives occurred with: Not Discussed Care Teams Outside Sales Executive Relationship Specialty Start Date End Date Ryan Leyva MD [address] [place] [address] PCP - General Family Medicine 07/17/22 documented as of this encounter
--- OUTSIDE RECORDS SUMMARY | 2023-09-19 10:46 | External Medical Summary | Summary of Care ---
Author Name Unknown Organization [facility] Address [address] [place] [address] Phone [phone] Care Team Providers Care After School Tutor Name Role Phone Ryan Leyva MD Primary Care Provider +1 [phone] Encounter Details Date Type Department Care Team (Late st Contact Info) Description 06/19/2023 Orders Only Family [facility] [address] [place] [address] Ryan Leyva MD [address] [place] [address] Allergies No known active allergiesdocumented as of [...] goal of less than 7.0% ([facility]) TAKE 1 TABLET BY MOUTH EVERY MORNING 90 Tablet 0 01/26/2023 Active Pregabalin 50 MG Oral Capsule (Lyrica)Indicatio ns:History of drug abuse ([facility]) take 1 capsule by mouth in [...] Care Team (Late st Contact Info) Description 07/02/2023 7:45 AM EST Office Visit Ophthalmology, [facility] [address] [place] [address] Burton Schroeder DO [address] [place] [address] Health Maintenance Due Date Last Done Comments [...] Priority Date/Time Associated Diagnosis Comments CHEMISTRY-OUTSIDE Routine 06/17/2023 documented in this encounter Results * (ABNORMAL) CHEMISTRY-OUTSIDE (06/17/2023) Not all results display below - see scan for full detail OUTSIDE LAB (SEE SCANNED REPORT) Comment:SCAN INCL: BMP, CK, CBC CREATININE-OUTSID E LAB 0.79 0.70 - 1.30 MG/DL OUTSIDE LAB (SEE SCANNED REPORT) EGFR-OUTSIDE LAB >90 OUT SIDE LAB (SEE SCANNED REPORT) POTASSIUM-OUTSIDE LAB 3.3(A) 3.5 - 5.1 MMOL/L OUTSIDE LAB (SEE SCANNED REPORT) GLUCOSE-OUTSIDE LAB 85 70 - 110 MG/DL OUTSIDE LAB (SEE [...] LAB OUTSIDE LAB (SEE SCANNED REPORT) HEMOGLOBIN, B1O-DCNSLAN LAB OUTSIDE LAB (SEE SCANNED REPORT) PHOSPHORUS-OUTSID E LAB OUTSIDE LAB (SEE SCANNED REPORT) PTH-OUTSIDE LAB OUTS ANÍBAL LAB (SEE SCANNED REPORT) MICROALBUMIN RATIO-OUTSIDE LAB OUTSIDE LA B (SEE SCANNED REPORT) PROTEIN, UA-OUTSIDE LAB OUTSIDE LAB (SEE SCANNED REPORT) HEMOGLOBIN-OUTSID E LAB 15.6 13.5 - 18.0 GM/DL OUTSIDE LAB (SEE SCANNED REPORT) 06/17/2023 Ryan Leyva MD LABORATORY OUTSIDE LAB (SEE SCANNED REPORT) documented in this encounter Advance Directives Latest Code Status on File Code Status Date Activated Date Inactivated Comments Full Code 02/14/2019 10:34 PM 02/20/2019 3:48 PM This order reflects the patients wishes and were consensually agreed upon. Question Answer Comments Discussion of Advance Directives occurred with: Not Discussed Care Teams After School Tutor Relationship Specialty Start Date End Date Ryan Leyva MD 132 [facility] [place] [address] PCP - General Family Medicine 07/17/22 documented as of this encounter
--- OUTSIDE RECORDS SUMMARY | 2023-09-19 10:46 | External Medical Summary | Summary of Care ---
Author Name Unknown Organization [facility] Address [address] [place] [address] Phone [phone] Care Team Providers Care Cross Country Coach Name Role Phone Ryan Leyva MD Primary Care Provider [phone] [phone] Reason for Visit * Reason Onset Date Comments Advice 06/17/2023 Encounter Details Date Type Department Care Team ([facility] st Contact Info) Description 06/17/2023 Telephone Family Practice [facility] [address] [facility] [place] [address] Ryan Leyva MD [address] [facility] [place] [address] Advice Allergies No known active allergiesdocumented as [...] less than 7.0% ([facility]) TAKE 1 TABLET BY MOUTH EVERY MORNING 90 Tablet 0 01/26/2023 Active Pregabalin 50 MG Oral Capsule (Lyrica)Indicatio ns:History of drug abuse ([facility]) take 1 capsule by mouth in the [...] - 06/18/2023 10:33 AM EST Salina from [facility] called asking for an update. [...] 5:52 PM EST Roseanne FINN nurse from [facility]-- States pt is at the ER [...] 06/17/2023 2:19 PM EST HH Concerns Shara TAYLOR, Calling from: [facility] Report/Concerns of: IV infiltrate Symptoms: red warm [...] she knows of. Caller was transferred to [place] at the nurse line. documented in this encounter Plan of Treatment Upcoming Encounters Date Type Department Care Team (Late st Contact Info) Description 06/18/2023 3:20 PM EST Office Visit Family Practice [facility] [address] [place] [address] Ryan Leyva MD [address] [place] [address] 07/02/2023 7:45 AM EST Office Visit Ophthalmology, [facility] [address] [place] [address] Burton Schroeder DO [address] [place] [address] Health Maintenance Due Date Last Done Comments [...] 09/15/2021, Additional history exists GFR 06/14/2024 06/14/2023, 1011/2022, 12/03/2022, Additional history exists DTaP,Tdap,and Td Vaccines [...] Directives occurred with: Not Discussed Care Teams Cross Country Coach Relationship Specialty Start Date End Date Ryan Leyva MD [address] [facility] [place] [address] PCP - General Family Medicine 07/17/22 documented as of this encounter
--- OUTSIDE RECORDS SUMMARY | 2023-09-19 10:46 | External Medical Summary | Summary of Care ---
Author Name Unknown Organization [facility] Address [address] [place] [address] Phone [phone] Care Team Providers Care Hand Grinder Name Role Phone Ryan Leyva MD Primary Care Provider +1 -[phone] Reason for Visit * Reason Onset Date Comments Advice 06/17/2023 Encounter Details Date Type Department Care Team ([facility] st Contact Info) Description 06/17/2023 Telephone Family Practice [facility] [address] [facility] [place] [address] Ryan Leyva MD [address] [facility] [place] [address] Advice Allergies No known active allergiesdocumented as [...] encounter Miscellaneous Notes * Telephone Encounter - Sharon Patterson, NAKITA - 06/18/2023 3:05 PM EST Shara from [facility] calling to give update on. He did [...] - 06/18/2023 10:33 AM EST Salina from [facility] infusion called asking for [...] 5:52 PM EST Roseanne FINN nurse from [facility]-- States pt is at the ER [...] EST HH Concerns Shara RN, Calling from: [facility] Report/Concerns of: IV infiltrate Symptoms: red [...] 3:20 PM EST Office Visit Family Practice [facility] [address] [place] [address] Ryan Leyva MD [address] [place] [address] 07/02/2023 7:45 AM EST Office Visit Ophthalmology, [facility] [address] [place] [address] Burton Schroeder DO [address] [place] [address] Health Maintenance Due Date Last Done Comments [...] occurred with: Not Discussed Care Teams Hand Grinder Relationship Specialty Start Date End Date Ryan Leyva MD [address] [place] [address] PCP - General Family Medicine 07/17/22 documented as of this encounter
--- OUTSIDE RECORDS SUMMARY | 2023-09-19 10:46 | External Medical Summary | Summary of Care ---
Author Name Unknown Organization [facility] Address [address] [place] [address] Phone [phone] Care Team Providers Care Director Of Testing Name Role Phone Ryan Leyva MD Primary Care Provider [phone] [phone] Reason for Visit * Reason Onset Date Comments Appointment 06/19/2023 Encounter Details Date Type Department Care Team ([facility] st Contact Info) Description 06/19/2023 Telephone Access Center, [facility] [address] [facility] *DO NOT REMOVE THIS DEPARTMENT* [place] [address] Services, Scheduling [address] [place] [address] Appointment Allergies No known active allergiesdocumented as [...] encounter Miscellaneous Notes * Telephone Encounter - Lucille Loo RN - 06/19/2023 11:32 AM EST Spoke to pt.; rescheduled for 06/21/23-acknowledged. Lucille Loo RN 06/19/2023 11:33 AM * Telephone Encounter - Joaquina Rogers OSA - 06/19/2023 10:02 AM EST Pt calling states that he was in hospital and just got out, he is able to come to appointments starting tomorrow. He is scheduled with [facility] on 07/02 but states that he needs sooner because he can barely see out of both eyes. Asking to speak with Nadja- Dr. Schroeder's nurse- please advise, thanks. documented in this encounter Plan of Treatment Upcoming Encounters Date Type Department Care Team (Late st Contact Info) Description 06/21/2023 11:15 AM EST Office Visit Ophthalmology, [facility] [address] [place] [address] Burton Schroeder, [address] [place] [address] Health Maintenance Due Date Last Done Comments [...] Directives occurred with: Not Discussed Care Teams Director Of Testing Relationship Specialty Start Date End Date Ryan Leyva MD [address] [place] [address] PCP - General Family Medicine 07/17/22 documented as of this encounter
--- OUTSIDE RECORDS SUMMARY | 2023-09-19 10:46 | External Medical Summary | Summary of Care ---
Author Name Unknown Organization [facility] Address [address] [place] [address] Phone [phone] Care Team Providers Care Beef Cattle Farm Manager Name Role Phone Ryan Leyva MD Primary Care Provider +1 -[phone] Encounter Details Date Type Department Care Team (Late st Contact Info) Description 06/19/2023 Orders Only Family [facility] [address] [place] [address] Ryan Leyva MD [address] [place] [address] Allergies No known active allergiesdocumented as of [...] goal of less than 7.0% ([facility]) TAKE 1 TABLET BY MOUTH EVERY MORNING 90 Tablet 0 01/26/2023 Active Pregabalin 50 MG Oral Capsule (Lyrica)Indicatio ns:History of drug abuse ([facility]) take 1 capsule by mouth [...] 07/02/2023 7:45 AM EST Office Visit Ophthalmology, [facility] [address] [place] [address] Burton Schroeder DO [address] [place] [address] Health Maintenance Due Date Last Done Comments [...] Associated Diagnosis Comments HEPATITIS C ANTIBODY Routine 06/14/2023 documented in this encounter Results * HEPATITIS C ANTIBODY (06/14/2023) Blood Venous blood specimen / Unknown 06/14/2023 Star Schmidt MD LAB BLOOD ORDERABLE S OUTSIDE LAB (SEE SCANNED REPORT) documented in this encounter Advance Directives Latest Code Status on File Code Status Date Activated Date Inactivated Comments Full Code 02/14/2019 10:34 PM 02/20/2019 3:48 PM This order reflects the patients wishes and were consensually agreed upon. Question Answer Comments Discussion of Advance Directives occurred with: Not Discussed Care Teams Beef Cattle Farm Manager Relationship Specialty Start Date End Date Ryan Leyva MD [address] [place] [address] PCP - General Family Medicine 07/17/22 documented as of this encounter
--- OUTSIDE RECORDS SUMMARY | 2023-09-19 10:46 | External Medical Summary | Summary of Care ---
Author Name Unknown Organization [facility] Address [address] [place] [address] Phone [phone] Care Team Providers Care Drafter Cartographic Name Role Phone Ryan Leyva MD Primary Care Provider +1 -[phone] Reason for Visit * Reason Onset Date Comments Test Results 06/14/2023 Advice 06/14/2023 Pt will finish i v antibiotics on June 19.. Pharmacy @ [phone] [facility] pharmacy please call and advise if this will be continued. Encounter Details Date Type Department Care Team (Late st Contact Info) Description 06/14/2023 Telephone Dermatology [facility] [place] [address] [facility] [place] [address] Jason Bautista MD [address] [place] [address] Test Results; Advice (Pt will finish iv an... Allergies No known active allergiesdocumented as of [...] Oral Capsule (Lyrica)Indicatio ns:History of drug abuse ([facility]) take [...] encounter Miscellaneous Notes * Telephone Encounter - Lilliana Orozco LPN - 06/18/2023 12:29 PM EST Derm does not order IV meds, can you call him and [facility] home infusion for questions * Telephone Encounter - Lilliana Orozco LPN - 06/18/2023 11:09 AM EST Pharmacy has questions and patient looking for results. * Telephone Encounter - Susanna Paige OSA - 06/17/2023 10:35 AM EST Pt will finish iv antibiotics on June 19.. Pharmacy @ [phone] [facility] pharmacy please call and advise if this will be continued. * Telephone Encounter - Dee Montemayor OSA - 06/14/2023 3:49 PM EST Patient called for biopsy results.. please call patient Thanks documented in this encounter Plan of Treatment Upcoming Encounters Date Type Department Care Team (Late st Contact Info) Description 06/21/2023 11:15 AM EST Office Visit Ophthalmology, [facility] [address] [place] [address] Burton Schroeder DO [address] [place] [address] Health Maintenance Due Date Last Done Comments [...] Directives occurred with: Not Discussed Care Teams Drafter Cartographic Relationship Specialty Start Date End Date Ryan Leyva MD [address] [place] [address] PCP - General Family Medicine 07/17/22 documented as of this encounter
--- OUTSIDE RECORDS SUMMARY | 2023-09-19 10:46 | External Medical Summary | Summary of Care ---
Author Name Unknown Organization [facility] Address [address] [place] [address] Phone [phone] Care Team Providers Care Route Delivery Manager Name Role Phone Ryan Leyva MD Primary Care Provider +1 -[phone] Reason for Visit * Reason Onset Date Comments Advice 06/17/2023 Encounter Details Date Type Department Care Team ([facility] st Contact Info) Description 06/17/2023 Telephone Family Practice [facility] [address] [facility] [place] [address] Ryan Leyva MD [address] [place] [address] Advice Allergies No known active allergiesdocumented as [...] (Lyrica)Indicatio ns:History of drug abuse ([facility]) take 1 capsule by mouth [...] encounter Miscellaneous Notes * Addendum Note - Samra Jin LPN [...] 1:10 PM EST Kaylee returning call from [facility] infusion called asking for an update. [...] - 06/18/2023 10:33 AM EST [place] from [facility] infusion called asking for an update. [...] 5:52 PM EST Roseanne FINN nurse from [facility]-- States pt is at the ER now [...] EST HH Concerns Shara RN, Calling from: [facility] Report/Concerns of: IV infiltrate Symptoms: red warm [...] she knows of. Caller was transferred to [place] at the nurse line. documented in this encounter Plan of Treatment Upcoming Encounters Date Type Department Care Team (Late st Contact Info) Description 06/21/2023 11:15 AM EST Office Visit Ophthalmology, [facility] [address] [place] [address] Burton Schroeder, [address] [place] [address] Health Maintenance Due Date Last Done Comments [...] Directives occurred with: Not Discussed Care Teams Route Delivery Manager Relationship Specialty Start Date End Date Ryan Leyva MD [address] [place] [address] PCP - General Family Medicine 07/17/22 documented as of this encounter
--- NOTE | 2023-09-19 10:47 | Ultrasound Report ---
ABDOMINAL ULTRASOUND, RIGHT UPPER QUADRANT HISTORY: Elevated liver enzymes. COMPARISON: Abdomen and pelvis CT 10/20/2022. FINDINGS: Pancreas: The visualized pancreas demonstrates a normal echotexture. Liver: Normal echotexture. No hepatic masses or intrahepatic bile duct dilatation. The liver measures 14 cm in length. Gallbladder: The gallbladder is distended and contains multiple small stones. No gallbladder wall thi ckening. Negative sonographic Palomino sign. There is a 19 x 14 mm echogenic nodule within the gallblad david which may represent a sludge ball. A polyp could also have a similar appearance. However, no defi nite color flow to confirm a polyp. CBD: 5 mm. Right kidney: Atrophic right kidney with moderate hydronephrosis. This remains unchanged. IMPRESSION: 1. Normal liver. 2. Distended gallbladder containing multiple small stones. This is similar to the prior study. 3. There is also a 19 x 4 mm echogenic nodule within the gallbladder which may represent a sludge bal l or polyp. Follow-up recommended to ensure stability. 4. Atrophic right kidney with moderate hydronephrosis, unchanged ACT 112: Negative or not required by law. Electronically signed by: Mookie Velazqeuz M.D. 09/19/2023 10:46 AM
[2023-09-19 11:00] LABS: BUN Creatinine Ratio 23.9 (10-20); Calcium 9.3 mg/dl (8.6-10.3); Creatinine Clr Calc Pharmacy 90.6 ml/min; Est GFR (African American) 94.4 ml/min; Est GFR (Non-African American) 81.4 ml/min; Potassium 4.2 mmol/L (3.5-5.1)
--- NOTE | 2023-09-19 11:05 | Infectious Disease Consult ---
Date of Service September 19, 2023 Telehealth Information I performed this visit using a real-time telehealth connection between my location and the patients location ([facility]). After connecting through interactive tele-video, patient was identified by name and date of and/or wristband check.Patient (or authorized healthcare termite control representative) was informed that this was a telemedicine visit and it was being conducted confidentially over secure lines. My office door was closed and no on e else was present in the room with me.Patient (or authorized healthcare termite control representative) provided consent to proceed with the visit, expressed an understanding of privacy and security of the telemedicine visit, and gave permission to have a hospital termite control representative in the room in order to assist with the visit and to conduct portions of the visit, as needed. I informed the patient (or authorized healthcare termite control representative) that I reviewed their record and presented the opportunity for them to ask any questions regarding the visit today. The patient agreed to participate. Assessment & Plan Plan 37-year-old male with a past medical history Charcot foot, wheelchair bound, s/p pancreas/ kidney transplant on mycophenolate/tacrolimus presenting for bilateral lower extremity swelling/ erythema with right foot chronic plantar leisure and lateral blood blister. Left lower extremity cellulitis with 25 x 11 mm abscess Right foot chronic plantar ulcer and lateral blood blister Left peroneal acute DVT History of MRSA bacteremia plan: - pending 09/17 blood cultures - recommend surgical consultation for I/D, if possible please send aerobic/anaerobic/fungal cultures - continue vancomycin and cefepime IV therapy - recommend Wound Care consultation Eliazar Manriquez MD Infectious Disease PGY-4 [facility] History of Present Illness History of Present Illness 37-year-old male with a past medical history of Charcot foot, wheelchair bound, hypertension, type 1 diabetes mellitus s/p pancreas transplant, s/p kidney transplant ( On pro graft/CellCept), hepatitis-C s/p treatment, history of drug abuse on methadone presenting to the hospital on 09/17 with concerns for left lower extremity cellulitis. patient went to [facility] yesterday for evaluation was given 1 dose of IV vancomycin sent home on oral doxycycline. He returns today due to continued symptoms for left lower extremity discomfort erythema/swelling. He reports he has had a chronic pressure ulcer on the plantar surface of his left foot and prior to admission he developed a blood blister on the left lateral part of the foot. upon presentation BP 136/72 pulse 73 respiratory rate 17 T 36.6 C 94% room air WBC 12.77, Procalcitonin 0.4. Currently pending blood cultures from 09/17. CT left foot from 09/17 showing dorsal lateral fluid collection which may represent an abscess approximately 11 x 25 mm, no osteomyelitis appreciated. Patient currently on vancomycin cefepime. Patient currently continued on mycophenolate 750 mg twice daily and tacrolimus 1 mg q.12 hours, p.o. Bactrim has been held Due to dermatology concerns that patient has an allergy to sulfa and may have caused a portion of his dermatitis as described below. Admission on June 04, 2003 patient admitted for lower extremity and left forearm cellulitis, blood cultures positive for MRSA, discharged on IV daptomycin for 2 weeks with a follow up with Dermatology. Allergies Allergy/AdvReac Type Severity Reaction Status Date / Time sulfamethoxazole Allergy Intermediate Rash Verified 09/18/23 15:57 [From Bactrim] trimethoprim [From Bactrim] Allergy Intermediate Rash Verified 09/18/23 15:57 Home Medications Medication Instructions Recorded Confirmed Type clonazepam 0.5 mg tablet 0.5 mg PO BID PRN Anxiety 11/03/18 09/18/23 History mycophenolate mofetil 250 mg 750 mg PO BID 10/20/22 09/18/23 History capsule rosuvastatin 10 mg tablet 10 mg PO DAILY 10/20/22 09/18/23 History carvedilol 6.25 mg tablet (Coreg) 6.25 mg PO BID #20 tabs 12/08/22 09/18/23 Rx aspirin 325 mg tablet 325 mg PO DAILY 12/19/22 09/18/23 History tacrolimus 1 mg capsule, 1 mg PO Q12H 06/05/23 09/18/23 History immediate-release clonidine HCl 0.1 mg tablet 0.1 mg PO BID 06/11/23 09/18/23 History zinc sulfate 50 mg zinc (220 mg) 220 mg (4.4 x 50 mg zinc (220 mg)) 06/12/23 09/18/23 Rx capsule (Orazinc) PO QAM #30 caps clotrimazole-betamethasone 1 1 applic topical DIRECTED PRN 09/18/23 09/18/23 History %-0.05 % topical cream Skin Irritation collagenase clostridium histo. 250 1 applic topical DAILY PRN 09/18/23 09/18/23 History unit/gram topical ointment (Santyl) NEEDED PER PT doxycycline hyclate 100 mg capsule 100 mg PO BID 09/18/23 09/18/23 History furosemide 20 mg tablet 20 mg PO QAM PRN NEEDED PER 09/18/23 09/18/23 History [facility] methadone 10 mg/5 mL oral solution 100 mg PO DAILY 09/18/23 09/18/23 History pregabalin 75 mg capsule 75 mg PO TID 09/18/23 09/18/23 History silver sulfadiazine 1 % topical 1 applic topical DAILY 09/18/23 09/18/23 History cream (Silvadene) Patient History Medical History Critical illness polyneuropathy Pulmonary edema Hyperglycemia Fever Long-term exposure involving bird droppings Acute hypoxemic respiratory failure Current vaping on some days Anxiety Anemia Substance abuse End stage renal disease on dialysis due to type 1 diabetes mellitus History of seizure seizure-like activity 02/14/2019 in setting of severe hyperglycemia (patient states he missed dialysis/insulin dose), DKA, confusion- lifeflighted to [place]/intubated/placed on ventilator. DKA managed with insulin drip on admission. EEG with no seizure activity noted. Neurology consulted and initially started patient on prophylactic Keppra but suspected seizure was complication of hyperglycemia and recommended weaning off anticonvuls ants/advised no further neurology workup needed. Per patient, medication/dialysis compliance since discharge with glucoses in the range on 100's-200's on self-checks. Peritonitis currently on intraperitoneal abx Hepatitis C Gastroparesis Withdrawal from opioids Diabetic retinopathy of both eyes Nephrotic syndrome Diabetes mellitus type I Hypertension Surgical History Pancreas transplant status Renal transplant recipient H/O eye surgery Hx of tonsillectomy Hx of tooth extraction Hx of vitrectomy B/L; right vitrectomy: 05/26/18[place] [facility] [place] catheter in place Family History Grandfather (Maternal) Diabetes Grandfather (Paternal) Diabetes Grandmother (Paternal) Diabetes Grandmother (Maternal) Diabetes Aunt Diabetes Uncle Diabetes Father Hypertension Brother Hypertension Social History Smoking Status: Former smoker Tobacco Type: Cigarettes Second Hand Exposure: No; Do You Dip or Chew Tobacco: Yes; Hx Alcohol Use: No Hx Substance Use: No Preferred Language: Faroese Communication Ability: Effective Communication Ability Comment: sedated, arouses easily Visual Impairment: Severely Limited Hearing Ability: Normal Lighter Captain Required: No Beliefs That Will Affect Care: None Current Living Situation: Alone Current Living Situation Comment: aide help throughout the week current occupational status: employed and unemployed Feels Safe at Home: Yes Childhood Exposure to Second-Hand Smoke: No Diet: regular Diet Comment: diabetic caffeine: Yes during the past year weight has: other Dental Care, Regularly: Yes Physical Activity Frequency: Daily Seatbelt Use: always Sunscreen Use: Yes Assistive Devices: Crutches, Denture - Upper, Denture - Lower, Glasses and Wheelchair Results & Data Vital Signs (Past 12 Hours) Vital Signs Temp Pulse Resp BP Pulse Ox O2 Del Method 09/19/23 07:00 36.6 C 73 17 136/72 94 Room Air 09/19/23 03:01 36.9 C 75 16 124/72 93 Room Air 09/18/23 23:19 75 131/81 Diagnostic Findings Duplex Scan Lower Extremity Artery 09/18/23 15:14 US arterial duplex LE LT CLINICAL HISTORY: discolored, painful foot COMPARISON STUDY: None. FINDINGS: Monophasic waveforms and scattered calcified plaque seen throughout the left lower extremity arterial system. No evidence for arterial occlusion. Focal areas of elevated peak systolic velocities within the distal left anterior tibial artery, distal left posterior tibial artery, and dorsalis pedis artery co nsistent with areas of hemodynamically significant stenosis. Additional areas of borderline elevated velocities within the proximal and distal left superficial femoral artery as well as the distal left peroneal artery consistent with areas of borderline stenosis. IMPRESSION: 1. No areas of arterial occlusion within the left lower extremity. 2. Multifocal areas of hemodynamically significant stenosis as described above. 3. Monophasic waveforms seen throughout the left lower extremity arterial system suggestive of proximal stenosis. Venous Doppler Study 09/18/23 15:14 LEFT LOWER EXTREMITY VENOUS DOPPLER HISTORY: discolored, painful foot COMPARISON STUDY: None. FINDINGS: The left common femoral, superficial femoral, popliteal, posterior tibial, peroneal veins are patent. There is thrombus identified within one of 2 peroneal veins. Mild left inguinal lymphadenopathy is noted. This may be reactive. IMPRESSION: 1. Thrombus within one of 2 left peroneal veins consistent with a DVT. 2. Mild left inguinal lymphadenopathy. This may be reactive. Foot X-Ray 09/18/23 15:44 XR foot LT 2V CLINICAL HISTORY: erythema and swelling; r/o free air COMPARISON: Left foot radiographs June 09, 2023. FINDINGS: Exam is compromised given difficulty positioning. Diffuse soft tissue swelling of the left foot is present. No radiographic evidence for soft tissue gas. Markedly abnormal appearance of the midfoot has mildly progressed since prior exam with bony fragmentation and collapse, including disruption of the talonavicular articulation. Moderate vascular calcification is present. No definite acute bony erosions are identified. IMPRESSION: 1. No radiographic evidence for soft tissue gas within the left foot. Diffuse soft tissue swelling, increased since prior exam. 2. Progressive bony fragmentation and collapse of the left midfoot when compared to radiographs of June 09, 2023. The findings suggest neuropathic arthropathy. 3. Exam compromised given difficulty positioning.
[2023-09-19 11:07] LABS: ANTI-Xa, UFH(UnfractionatedHep 0.18 IU/ml (0.3-0.7)
--- NOTE | 2023-09-19 11:19 | CT Scan Report ---
CT foot LT wo con CLINICAL HISTORY: Rule out abscess TECHNIQUE: Multidetector row helical CT of the left foot was performed without intravenous contrast. Coronal and sagittal reformations were obtained. Automated dose lowering techniques and/or adjustment according to patient size were utilized for this examination. CT DOSE: 363.84 mGy.cm Comparison: Comparison is made to left foot radiograph 09/18/2023 FINDINGS: Chronic fragmentation and degenerative changes of the midfoot. The joint spaces are maintained. Soft tissue edema is seen. There is a fluid collection in the dorsal lateral foot measuring 11 x 25 mm. Li chelo plantar ulcer is seen in the midfoot region. IMPRESSION: 1. Dorsal lateral fluid collection is seen which may represent an abscess. No underlying osteomyelit is is seen. Soft tissue stranding is seen compatible with cellulitis. 2. Fragmentation in the mid foot compatible with a Charcot joint. ACT 112: Negative or not required by law. Electronically signed by: Greg Barrera M.D. 09/19/2023 11:17 AM
[2023-09-19 12:43] LABS: Appearance Urine Cloudy (Clear); Bacteria Urine Automated None Seen (None Seen); Bilirubin Urine 1+ (Negative); Blood Urine Negative (Negative); Cast Urine Automated 0-2 /lpf (0-2); Color Urine Dark Yellow; Glucose Urine UA Negative (Negative); Ketones Urine Trace (Negative); Leukocyte Esterase Urine Trace (Negative); Nitrite Urine Negative (Negative); Protein Urine Trace (Negative); RBC Urine Automated 0-2 /hpf (0-2); Specific Gravity Urine 1.026 (1.000-1.030); Urobilinogen Urine Negative (Negative); WBC Urine Automated 0-5 /hpf (0-5); pH Urine 5.5 (4.5-7.5)
[2023-09-19 13:14] LABS: Amphetamines+Metham, Urine Neg (Neg); Barbiturates, Urine Neg (Neg); Benzodiazepine, Urine Neg (Neg); Cocaine, Urine Neg (Neg); MDMA (Ecstacy), Urine Neg (Neg); Marijuana, Urine Neg (Neg); Methadone, Urine Pos (Neg); Opiate, Urine Neg (Neg); Phencyclidine, Urine Neg (Neg)
--- NOTE | 2023-09-19 13:57 | Pharmacy Report ---
Pharmacy PK ABX Note - Date of Service September 19, 2023 - Assessment and Plan Assessment 37 year old M receiving vancomycin and cefepime - for potential wound infection. Foot CT with possible abscess. PMHx significant for s/p pancreas/kidney transplant on immunosuppression, wheelchair bound, bilateral lower extremity swelling/erythema. Blood cultures are pending. ID is consulted. Plan Vancomycin * Loading dose: 1750 mg IV x 1 * Maintenance dose: 1000 mg IV every 12 hours * Regimen is predicted to achieve target AUC/TU of 400-600 mg/L.hr * Random vancomycin level will be ordered to ensure dosing appropriate Pharmacy will continue to follow and will adjust dose/frequency as necessary. Thank you. Pharmacy has transitioned to AUC monitoring for vancomycin. AUC/TU is the preferred PK/PD target and is associated with decreased risk of nephrotoxicity compared to traditional trough targets.
--- NOTE | 2023-09-19 15:00 | Hospitalist Progress Note ---
Date of Service September 19, 2023 Assessment & Plan (1) Cellulitis of left lower extremity: Plan: 37-year-old male diabetic Charcot foot, patient is supposed to be on wheelchair but currently using crutches to walk short distances, hypertension history 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 Sepsis, POA Left lower extremity cellulitis Left lower extremity dorsal abscess status post drainage Acute left lower extremity DVT Patient presents with increased fatigue, lethargy, increasing swelling on his left foot. Left footulcer on plantar aspect with blister on his dorsal aspect filled with pus WBC count elevated to 12,000 Podiatry was consulted; blister was drained at bedside; 50 cc of purulence removed. Sent for culture Left foot CT did not reveal any underlying osteomyelitis or any other underlying abscess. Venous duplex showed thrombus within 1 of 2 left peroneal vein consistent with DVT On vancomycin and Zosyn. Vancomycin to cover for cellulitis, Zosyn added on given distended gallbladder on liver ultrasound and elevated liver enzymes Will follow-up on blood culture and culture from the abscess Continue to monitor response with antibiotics Continue heparin drip for acute DVT. Will transition to oral DOAC's if patient is not undergoing any procedure/surgery Acute kidney injury History of renal/pancreas transplant for diabetic nephropathy in 2020 Currently on immunosuppression Baseline creatinine of 0.8 in June 2023 Presented with creatinine of 1.36 Slight improvement noted with IV hydration to 1.13 today a.m. Discussed with transplant nephrology at [facility]; recommended to continue tacrolimus and mycophenolate for the time being. Continue gentle IV hydration with normal saline at 80 cc/h Bactrim is currently on held Elevated liver enzymes Liver enzymes elevated; AST/ALT/LVM630/78/532 Total bilirubin1.2 with direct of 0.7 Patient denies any right upper quadrant pain or discomfort Right upper quadrant ultrasound shows distended gallbladder containing multiple small stone; 19 x 4 mm echogenic nodule within the gallbladder which may represent a sludge ball or polyp. Follow-up recommended to ensure stability Continue on Zosyn for the time being Will consult general surgery . for further recommendation Chronic pain Continues home methadone Hyperlipidemia On statin Hypertension on Coreg and clonidine Will monitor DVT prophylaxis IV heparin Discussion was done with [facility] transfer center. Patient has history of renal/pancreas transplant currently on immunosuppressive treatment. Currently, he has multiple medical issues as outlined above. Given the complexity of the medical case; he will benefit from close monitoring from transplant team which is not available in this facility. Patient was accepted for transfer.. Awaiting bed. Time spent evaluating patient, direct bedside care, chart review, placing orders, interpretation of diagnostic studies, discussion with consultants, patient, and family members, as well as other required patient management activities is 90 minutes Please note the above document was generated using voice recognition software. It may contain grammatical, syntax or spelling errors. Any formal questions or concerns about the content, text or information contained within the body of this dictation should be directly addressed to the provider for clarification Admission and Anticipated Discharge Date Admission Date: September 18, 2023 Subjective Patient seen and examined at bedside. He reports pain on his bilateral lower extremity; more specifically on left leg. Physical Exam Physical Exam: Constitutional: Alert oriented x 3; not in distress. Respiratory: Bilateral vesicular breath sound Cardiovascular: RRR, no murmur, no edema Vessels: no JVD or carotid bruit Chest: normal inspection of chest Abdomen: normal bowel sounds, soft, nontender, no hepatosplenomegaly Musculoskeletal: Left leg swollen compared to right with increased redness. Blister present on dorsal aspect filled with pus, plantar wound with clean base. Skin: no rashes, warm and dry normal turgor Neurologic: PERRL, EOMI, accommodation nl, no face palsy, no dysarthria CN's II- XI intact bilaterally and moves all extremities Psychiatric: A+Ox3, euthymic affect Results & Data Results & Data Vital Signs (Past 12 Hours) Vital Signs Temp Pulse Resp BP Pulse Ox O2 Del Method 09/19/23 14:10 36.6 C 76 20 121/74 91 Room Air 09/19/23 12:00 36.6 C 75 19 143/77 H 94 Room Air 09/19/23 07:00 36.6 C 73 17 136/72 94 Room Air 09/19/23 03:01 36.9 C 75 16 124/72 93 Room Air
[2023-09-19] MEDS: VANCOMYCIN HCL 1,000 MG in SODIUM CHLORIDE 0.9% 250 ML IV SCH (15:05)
--- NOTE | 2023-09-19 15:45 | Discharge Summary ---
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 Patient states since last 3 days he developed lower extremity redness and pain. He had an episode of fever for 1 day. He went to [facility] yesterday and was given IV vancomycin and was discharged home on doxycycline. And today morning the feet become more discolored and significantly more swollen which prompted him to come to the ER here today. Denies any chest pain or shortness of breath. No cough. No nausea. No abdominal pain. Normal bowel and bladder movements. No headache. No dizziness. Vision is okay. No runny nose or sore throat. Appetite is okay. No difficulty swallowing. Currently resting comfortably and hemodynamically stable. Patient was admitted to [facility] on June 04, 2023 and was discharged on June 12, 2023. At the time he was admitted for left lower extremity cellulitis and also left forearm. And blood cultures were positive for coag negative staph with bio Fixya showing methicillin resistance. ID recommended 2 weeks of IV antibiotics. He was on IV daptomycin. At the time he also had skin rash and follow-up with dermatology. Thought to be from Bactrim and Bactrim is currently on hold. Patient states supposed to see his transplant team soon and will discuss about restarting Bactrim or any other antibiotic. Past medical history. As mentioned above Past surgical history. Will. Return dialysis. S/p pancreas transplant. S/p kidney transplant. Partial removal of right eye fluid. Tonsillectomy. Surgical removal of erupted tooth. Social history. Snuff tobacco. No alcohol use. No drug use. Family history. Brother has hypertension. Father has hypertension. Lung cancer. Mother from urosepsis. Diabetes in the family. Admission Exam Per Admitting Provider General- Not in distress Head- atraumatic Eyes- PERRL. ENT- oropharynx clear Neck- supple, no JVD. Lungs- clear to auscultation no wheezing or crackles. Heart- regular rhythm; no murmur, no gallop. Abdomen- normal bowel sounds, soft, nontender, no distension. Extremities- Left lower extremity is erythematosus and swollen.superficial wound on right cagle Neuro- alert, oriented PERRL, no facial palsy; no dysarthria; moves extremities. Principal Diagnosis Sepsis, POA Left lower extremity cellulitis Left lower extremity dorsal abscess status post drainage Acute left lower extremity DVT Acute kidney injury History of renal/pancreas transplant for diabetic nephropathy in 2020 Currently on immunosuppression Discharge Exam Constitutional: Alert oriented x 3; not in distress. Respiratory: Bilateral vesicular breath sound Cardiovascular: RRR, no murmur, no edema Vessels: no JVD or carotid bruit Chest: normal inspection of chest Abdomen: normal bowel sounds, soft, nontender, no hepatosplenomegaly Musculoskeletal: Left leg swollen compared to right with increased redness. Blister present on dorsal aspect filled with pus, plantar wound with clean base. Skin: no rashes, warm and dry normal turgor Neurologic: PERRL, EOMI, accommodation nl, no face palsy, no dysarthria CN's II- XI intact bilaterally and moves all extremities Psychiatric: A+Ox3, euthymic affect Discharge Data Allergies Allergy/AdvReac Type Severity Reaction Status Date / Time sulfamethoxazole Allergy Intermediate Rash Verified 09/18/23 15:57 [From Bactrim] trimethoprim [From Bactrim] Allergy Intermediate Rash Verified 09/18/23 15:57 Consultations 09/18/23 18:45 ED Decision to Admit Stat 09/19/23 08:00 Consult Infectious Diseases Routine Consult Vascular Surgery Routine 09/19/23 13:15 Consult Podiatry Routine Ordered Studies 09/18/23 15:14 US leg [US arterial duplex LE LT] Stat US leg [US venous doppler LE LT] Stat 09/19/23 08:00 US liver Routine 09/19/23 09:09 CT foot LT wo con Routine Hospital Course (1) Cellulitis of left lower extremity: 37-year-old male diabetic Charcot foot, patient is supposed to be on wheelchair but currently using crutches to walk short distances, hypertension history 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 Sepsis, POA Left lower extremity cellulitis Left lower extremity dorsal abscess status post drainage Acute left lower extremity DVT Patient presents with increased fatigue, lethargy, increasing swelling on his left foot. Left footulcer on plantar aspect with blister on his dorsal aspect filled with pus WBC count elevated to 12,000 Podiatry was consulted; blister was drained at bedside; 50 cc of purulence removed. Sent for culture Left foot CT did not reveal any underlying osteomyelitis or any other underlying abscess. Venous duplex showed thrombus within 1 of 2 left peroneal vein consistent with DVT On vancomycin and Zosyn. Vancomycin to cover for cellulitis, Zosyn added on given distended gallbladder on liver ultrasound and elevated liver enzymes Will follow-up on blood culture and culture from the abscess Continue to monitor response with antibiotics Continue heparin drip for acute DVT. Will transition to oral DOAC's if patient is not undergoing any procedure/surgery Acute kidney injury History of renal/pancreas transplant for diabetic nephropathy in 2020 Immunocompromised Baseline creatinine of 0.8 in June 2023 Presented with creatinine of 1.36 Slight improvement noted with IV hydration to 1.13 today a.m. Discussed with transplant nephrology at [facility]; recommended to continue tacrolimus and mycophenolate for the time being. Continue gentle IV hydration with normal saline at 80 cc/h Bactrim is currently on held Elevated liver enzymes Liver enzymes elevated; AST/ALT/FBF170/78/532 Total bilirubin1.2 with direct of 0.7 Patient denies any right upper quadrant pain or discomfort Right upper quadrant ultrasound shows distended gallbladder containing multiple small stone; 19 x 4 mm echogenic nodule within the gallbladder which may represent a sludge ball or polyp. Follow-up recommended to ensure stability Continue on Zosyn for the time being Will consult general surgery . for further recommendation Chronic pain Continues home methadone Hyperlipidemia On statin Hypertension on Coreg and clonidine Will monitor DVT prophylaxis IV heparin Discussion was done with [facility] transfer center. Patient has history of renal/pancreas transplant currently on immunosuppressive treatment. Currently, he has multiple medical issues as outlined above. Given the complexity of the medical case; he will benefit from close monitoring from transplant team which is not available in this facility. Patient was accepted for transfer.. Awaiting bed. Time spent evaluating patient, direct bedside care, chart review, placing orders, interpretation of diagnostic studies, discussion with consultants, patient, and family members, as well as other required patient management activities is 90 minutes Please note the above document was generated using voice recognition software. It may contain grammatical, syntax or spelling errors. Any formal questions or concerns about the content, text or information contained within the body of this dictation should be directly addressed to the provider for clarification Total Time Total Time Spent Total Time Spent (In Minutes): 56 Total Time Includes: Examination of the Patient, Discharge Planning, Medication Reconciliation, Communication With Other Providers and Other Discharge Plan Discharge Items Patient Disposition: Transfer Acute Care Hospital Reason For Visit: LEFT LEG CELLULITIS AND DVT Discharge Diagnosis: Sepsis, POA Left lower extremity cellulitis Left lower extremity dorsal abscess status post drainage Acute left lower extremity DVT Activity: Resume your previous activity Non-emergency contact: Primary Care Provider Call non-emergency contact if: you have any medication questions and your symptoms worsen Follow-up/Referrals: Ryan Leyva MD [Primary Care Provider] - Diet: Regular Addtl Attending Provider Instructions: please follow-up with your primary care doctor after discharge from the hospital 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 Instructions: Date of Service: September 19, 2023 Current Inpatient Medications Acetaminophen (Acetaminophen 325 Mg Tab) 650 mg PO Q4H PRN PRN Reason: Pain or Fever Stop: 10/18/23 21:50 Last Admin: 09/18/23 23:28 Dose: 650 mg Aspirin (Aspirin 325 Mg Ectab) 325 mg PO DAILY AYEHSA Stop: 10/19/23 08:59 Last Admin: 09/19/23 10:16 Dose: 325 mg Betamethasone/Clotrimazole (Clotrimazole/Betamethasone Cr 15 Gm Tube) 1 appln EXT DAILY PRN PRN Reason: Skin Irritation Stop: 10/18/23 21:50 Carvedilol (Carvedilol 6.25 Mg Tab) 6.25 mg PO BID AYESHA Stop: 10/18/23 21:50 Last Admin: 09/19/23 10:17 Dose: 6.25 mg Clonazepam (Clonazepam 0.5 Mg Tab) 0.5 mg PO BID PRN PRN Reason: Anxiety Stop: 10/18/23 21:50 Last Admin: 09/19/23 10:43 Dose: 0.5 mg Clonidine HCl (Clonidine Hcl 0.1 Mg Tab) 0.1 mg PO BID AYESHA Stop: 10/18/23 21:50 Last Admin: 09/19/23 10:17 Dose: 0.1 mg Collagenase (Collagenase Oint 30 Gm Tube) 1 appln TOP DAILY PRN PRN Reason: NEEDED PER PT Stop: 10/18/23 21:50 Heparin Sodium/Dextrose (Heparin Sodium/Dextrose) 25,000 units in 500 mls @ 35 mls/hr IV .[id number] [facility]; Protocol Stop: 10/18/23 18:59 Last Admin: 09/19/23 11:27 Dose: 1,750 units/hr, 35 mls/hr Vancomycin HCl 1,000 mg/ (Sodium Chloride) 270 mls @ 200 mls/hr IV Q12H [facility]; Protocol Stop: 09/26/23 13:59 Last Admin: 09/19/23 15:05 Dose: 200 mls/hr Piperacillin Sod/Tazobactam (Sod 4.5 gm/ Dextrose) 100 mls @ 25 mls/hr IV Q8H [facility]; Protocol Stop: 09/29/23 14:59 Piperacillin Sod/Tazobactam (Sod 4.5 gm/ Dextrose) 100 mls @ 200 mls/hr IV NOW ONE; Protocol Stop: 09/19/23 15:59 Sodium Chloride (Nss) 500 mls @ 80 mls/hr IV .Q6H15M [facility] Stop: 09/19/23 16:44 Methadone HCl (Methadone Oral Soln 2 Mg/Ml) 105 mg PO DAILY [facility] Stop: 10/03/23 08:59 Last Admin: 09/19/23 10:43 Dose: 105 mg Miscellaneous Information (Vancomycin Consult Active) 1 each N/A UD PRN PRN Reason: Consult Stop: 10/18/23 21:50 Mycophenolate Mofetil (Mycophenolate Mofetil 250 Mg Cap) 750 mg PO BID [facility] Stop: 10/18/23 21:50 Last Admin: 09/19/23 10:17 Dose: 750 mg Non-Formulary Medication (Patient's Own Controlled Med 1) 1 each PO DAILY PRN PRN Reason: PULL MED FROM [facility] Stop: 10/03/23 06:25 Polyethylene Glycol (Polyethylene (Miralax) 17 Gm Pack) 17 gm PO DAILY PRN PRN Reason: Constipation Stop: 10/18/23 21:50 Pregabalin (Pregabalin 75 Mg Cap) 75 mg PO TID [facility] Stop: 10/18/23 21:50 Last Admin: 09/19/23 15:05 Dose: 75 mg Rosuvastatin Calcium (Rosuvastatin Calcium 10 Mg Tab) 10 mg PO DAILY [facility] Stop: 10/19/23 08:59 Last Admin: 09/19/23 10:16 Dose: 10 mg Silver Sulfadiazine (Silver Sulfadiazine 1% Cr 50 Gm Jar) 1 appln TOP DAILY AYESHA Stop: 10/19/23 08:59 Last Admin: 09/19/23 10:18 Dose: 1 appln Tacrolimus (Tacrolimus 1 Mg Cap) 1 mg PO BID [facility] Stop: 10/18/23 21:50 Last Admin: 09/19/23 10:16 Dose: 1 mg Zinc Sulfate (Zinc Sulfate 220 Mg Capsule) 220 mg PO QAM [facility] Stop: 10/19/23 08:59 Last Admin: 09/19/23 10:16 Dose: 220 mg Pending Studies at Discharge: No Stand-Alone Forms: [facility] Skilled Items Patient informed of condition?: No DNR: No Discharge Level of Care: Skilled Communicable Disease: No Discharge Prognosis: Stable Lines: Peripheral IV Urinary Catheter: No Medications and DC Order Prescriptions: Continued aspirin 325 mg tablet 325 mg PO DAILY clonazepam 0.5 mg tablet 0.5 mg PO BID PRN (Reason: Anxiety) mycophenolate mofetil 250 mg capsule 750 mg PO BID Rx Instructions: 3 caps (250 each cap) BID rosuvastatin 10 mg tablet 10 mg PO DAILY Hold Instructions: Resume on 06/20/23. Hold until you are completed with your IV antibiotic therapy carvedilol [Coreg] 6.25 mg tablet 6.25 mg PO BID Qty: 20 2RF Rx Instructions: must administer with a meal/food tacrolimus 1 mg Capsule 1 mg PO Q12H Hold Instructions: Resume on 07/10/23. Hold until directed by your transplant team clonidine HCl 0.1 mg tablet 0.1 mg PO BID zinc sulfate [Orazinc] 50 mg zinc (220 mg) Capsule 220 mg PO QAM Qty: 30 0RF silver sulfadiazine [Silvadene] 1 % Cream 1 applic TOPICAL DAILY Rx Instructions: apply a 1.5 mm thickness doxycycline hyclate 100 mg capsule 100 mg PO BID Rx Instructions: STARTED 09/16/23 FOR 10 DAYS methadone 10 mg/5 mL Solution 100 mg PO DAILY clotrimazole-betamethasone 1-0.05 % cream 1 applic TOPICAL DIRECTED PRN (Reason: Skin Irritation) furosemide 20 mg tablet 20 mg PO QAM PRN (Reason: NEEDED PER [facility]) Santyl 250 unit/gram Ointment 1 applic TOPICAL DAILY PRN (Reason: NEEDED PER PT) pregabalin 75 mg capsule 75 mg PO TID Discharge Orders: Discharge Order (Routine); Ordered 09/19/23 Ordered By: Bryant Almendarez Admission Data Admit Date/Time: 09/18/23 20:35 Attending Provider: Bryant Almendarez Admit Provider: Ruslan Lees Primary Care Provider: Ryan Leyva Other Providers: Silvestre Zhang; Johnny Alicea; Skye Samson; Gio Multani I.; Palomo Mccoy II; Radha Boyd; Zi Elias; Craig Jenkins; Naeem Lou; Johnathan Fitzpatrick; Eliazar Manriquez; Laith Briones; Angel Martino Other Interventions: Discharge Summary Assessment (RN) Last Done: 09/19/23 18:38
[2023-09-19] MEDS: PIPER/TAZO 4.5g in D5W MINI-B 100 ML IV ONE (16:38)
[2023-09-19] MEDS: SODIUM CHLORIDE 0.9% 500 ML IV SCH (16:38)
[2023-09-19 18:39] LABS: ANTI-Xa, UFH(UnfractionatedHep 0.27 IU/ml (0.3-0.7)
[2023-09-19] MEDS ORDERED: PIPERACILLIN/TAZOBACTAM 4.5 GM in DEXTROSE 5% MINI-B 100 ML IV SCH (20:00)
--- NOTE | 2023-09-20 21:36 | Electrocardiogram Report ---
Test Reason : Blood Pressure : / mmHG Vent. Rate : 071 BPM Atrial Rate : 071 BPM P-R Int : 144 ms QRS Dur : 098 ms QT Int : 414 ms P-R-T Axes : 016 009 035 degrees QTc Int : 449 ms Normal sinus rhythm Possible Anterior infarct (cited on or before 09-OCT-2019) Abnormal ECG When compared with ECG of 19-OCT-2022 22:35, No significant change was found Confirmed by Jame Beavers ([id number]) on 09/20/2023 9:36:03 PM Referred By: Confirmed By:Jame Beavers
--- NOTE | 2023-09-20 21:57 | Podiatry Consultation ---
Date of Consultation September 19, 2023 Assessment & Plan (1) Cellulitis of left lower extremity: (2) Sepsis: (3) Charcot's joint of left foot: (4) Cellulitis of left leg: (5) Foot abscess, left: Plan patient was examined and evaluated. We discussed at length etiology and treatment of his bilateral foot concerns. I do agree that a transfer would benefit him as he is suffering from multiple complications with severe comorbidities. He is at a drastically elevated risk of bilateral limb loss given his Charcot neuroarthropathy and now with cellulitis. Because of the extreme turgor of the large abscess of the dorsal lateral midfoot, a bedside I&D was performed. Which should help decrease infectious burden on his pending transfer. We will plan on seeing him as needed if fever returns to [facility] for further care. Otherwise, he may end up with excellent care while in [place]. Thanks for the consult. we are always happy to help when possible. History of Present Illness Reason for Consultation: Left foot abscess/cellulitis; B/L Charcot Attending Physician: Bryant Almendarez MD History of Present Illness patient seen at bedside. He was admitted recently for worsening left lower extremity cellulitis and a large abscess formation. He does have a long history of bilateral lower extremity concerns. This mostly started a few months ago when he noticed changes in the shape of his left foot. He was fitted for potential infection and Charcot deformity around the first of this year. Since that time, his right foot has also begun to collapse, though the left foot is still much more collapsed. He does admit to pain to the foot overall as well. Specifically, the pain is significant under the lateral aspect of the foot where he has a pre-ulcerative callus. Further, he also has a new onset of a large abscess overlying the dorsal aspect of this foot. He states that he is currentl y pending transfer to [place], most likely, because of his significant comorbidities. He does admit to feeling better since being admitted with the usage of IV antibiotics. Allergies Allergy/AdvReac Type Severity Reaction Status Date / Time sulfamethoxazole Allergy Intermediate Rash Verified 09/18/23 15:57 [From Bactrim] trimethoprim [From Bactrim] Allergy Intermediate Rash Verified 09/18/23 15:57 Home Medications Medication Instructions Recorded Confirmed Type clonazepam 0.5 mg tablet 0.5 mg PO BID PRN Anxiety 11/03/18 09/18/23 History mycophenolate mofetil 250 mg 750 mg PO BID 10/20/22 09/18/23 History capsule rosuvastatin 10 mg tablet 10 mg PO DAILY 10/20/22 09/18/23 History carvedilol 6.25 mg tablet (Coreg) 6.25 mg PO BID #20 tabs 12/08/22 09/18/23 Rx aspirin 325 mg tablet 325 mg PO DAILY 12/19/22 09/18/23 History tacrolimus 1 mg capsule, 1 mg PO Q12H 06/05/23 09/18/23 History immediate-release clonidine HCl 0.1 mg tablet 0.1 mg PO BID 06/11/23 09/18/23 History zinc sulfate 50 mg zinc (220 mg) 220 mg (4.4 x 50 mg zinc (220 mg)) 06/12/23 09/18/23 Rx capsule (Orazinc) PO QAM #30 caps clotrimazole-betamethasone 1 1 applic topical DIRECTED PRN 09/18/23 09/18/23 History %-0.05 % topical cream Skin Irritation collagenase clostridium histo. 250 1 applic topical DAILY PRN 09/18/23 09/18/23 History unit/gram topical ointment (Santyl) NEEDED PER PT doxycycline hyclate 100 mg capsule 100 mg PO BID 09/18/23 09/18/23 History furosemide 20 mg tablet 20 mg PO QAM PRN NEEDED PER 09/18/23 09/18/23 History [facility] methadone 10 mg/5 mL oral solution 100 mg PO DAILY 09/18/23 09/18/23 History pregabalin 75 mg capsule 75 mg PO TID 09/18/23 09/18/23 History silver sulfadiazine 1 % topical 1 applic topical DAILY 09/18/23 09/18/23 History cream (Silvadene) Patient History Medical History Critical illness polyneuropathy Pulmonary edema Hyperglycemia Fever Long-term exposure involving bird droppings Acute hypoxemic respiratory failure Current vaping on some days Anxiety Anemia Substance abuse End stage renal disease on dialysis due to type 1 diabetes mellitus History of seizure seizure-like activity 02/14/2019 in setting of severe hyperglycemia (patient states he missed dialysis/insulin dose), DKA, confusion- lifeflighted to [place]/intubated/placed on ventilator. DKA managed with insulin drip on admission. EEG with no seizure activity noted. Neurology consulted and initially started patient on prophylactic Keppra but suspected seizure was c omplication of hyperglycemia and recommended weaning off anticonvulsants/advised no further neurology workup needed. Per patient, medication/dialysis compliance since discharge with glucoses in the range on 100's-200's on self-checks. Peritonitis currently on intraperitoneal abx Hepatitis C Gastroparesis Withdrawal from opioids Diabetic retinopathy of both eyes Nephrotic syndrome Diabetes mellitus type I Hypertension Surgical History Pancreas transplant status Renal transplant recipient H/O eye surgery Hx of tonsillectomy Hx of tooth extraction Hx of vitrectomy B/L; right vitrectomy: 05/26/18: LMA#5 at [facility] Peritoneal dialysis catheter in place Family History Grandfather (Maternal) Diabetes Grandfather (Paternal) Diabetes Grandmother (Paternal) Diabetes Grandmother (Maternal) Diabetes Aunt Diabetes Uncle Diabetes Father Hypertension Brother Hypertension Social History Smoking Status: Former smoker Tobacco Type: Cigarettes Second Hand Exposure: No; Do You Dip or Chew Tobacco: Yes; Hx Alcohol Use: No Hx Substance Use: No Preferred Language: Guyanese Communication Ability: Effective Communication Ability Comment: sedated, arouses easily Visual Impairment: Severely Limited Hearing Ability: Normal Miner Assistant Required: No Beliefs That Will Affect Care: None Current Living Situation: Alone Current Living Situation Comment: aide help throughout the week current occupational status: employed and unemployed Feels Safe at Home: Yes Childhood Exposure to Second-Hand Smoke: No Diet: regular Diet Comment: diabetic caffeine: Yes during the past year weight has: other Dental Care, Regularly: Yes Physical Activity Frequency: Daily Seatbelt Use: always Sunscreen Use: Yes Assistive Devices: Crutches, Scooter/Electric Scooter, Walker and Wheelchair Review of Systems Review of Systems: All systems reviewed & are unremarkable except as noted in HPI & below Constitutional: + fever and + weakness; no chills Eyes: no problem reported Ear, Nose, Mouth, Throat: no problem reported Respiratory: no problem reported Cardiovascular: + edema Gastrointestinal: no problem reported Genitourinary: no problem reported Musculoskeletal: + deformity and + limited range of motio n Integumentary: + new lesions and + erythema; no skin ul cer Neurologic: + loss of sensation, + numbness, + pares thesia and + radiating pain Psychiatric: no problem reported Physical Exam Physical Exam: bilateral lower extremity focused exam: DP/PT pulses 2/4 bilaterally. CFT is brisk to the digits. Atrophic changes are noted to the skin overall with absent hair growth noted. There is no distal cooling noted, however. There is a large abscess noted overlying the dorsal aspect of the fifth tarsometatarsal joint. There is a superficial scant amount of serous drainage immediately on exam, though after draining this with a 18-gauge needle at bedside, 50 cc of dark malodorous purulent exudate was able to be expressed. Pain relief was noted with this expression. Otherwise, sensation is absent to the foot. There is diffuse numbness noted to the bilateral lower extremity with no pain on palpation of the underlying deformed feet. There is calcaneal cuboid subluxation noted bilaterally, worse and more advanced on the left. This does correlate with the advanced imaging as well. No other open lesions are noted at this time. Constitutional: well nourished, + acute distress and + ill appearing Eyes: PERRL, conjunctivae normal, anicteric sclerae ENMT: external ear and nose normal, oropharynx normal Mouth: + poor dentition Neck: trachea midline, no thyromegaly Respiratory: normal respiratory effort; no respiratory distress Cardiovascular: Rate/Rhythm: regular rate and regular rhythm Vessels: normal peripheral pulses Extremities: normal capillary refill and + pedal edema Gastrointestinal (Abdomen): Inspection/Auscultation: abdomen normal to inspection Musculoskeletal: no cyanosis or clubbing, extremities motor strength 5/5 Head/Neck/Chest: normocephalic and head atraumatic Spine: + limited cervical ROM Extremities: + limited ROM of extremities and + foot abnormality Gait: + antalgic gait Skin: no rashes, warm and dry + erythema (with cellulitis diffusely to the bilateral lower extremity, L>R) and + fluctulance Trauma: no evidence of skin trauma Neurologic: moves all extremities; + abnormal sensation to monofilament Psychiatric: A+Ox3, euthymic affect Results & Data Diagnostic Findings plain film and CT exam revealed underlying Charcot deformity to the left foot. This is advanced and noted at the level of the talonavicular joint and midtarsal joint. There is diffuse fragmentation and dislocation of the affected joints. This does correlate clinically with his collapsing foot structure
[2023-09-22 16:00] LABS: Methadone, Ur Metabolite >10000 ng/mL (<100); Methadone, Ur Verification >10000 ng/mL (<100)
== END 2023-09-19 20:20 | disposition short-term general hospital (02) | DRG 872 ==
LOC: ED 14:22 → 4W 20:35
DX: Z86.19 Personal history of other infectious and parasitic diseases; Z87.891 Personal history of nicotine dependence; Z83.3 Family history of diabetes mellitus; E78.5 Hyperlipidemia, unspecified; Z94.83 Pancreas transplant status; E10.319 Type 1 diabetes mellitus with unspecified diabetic retinopathy without macular edema; Z94.0 Kidney transplant status; L03.116 Cellulitis of left lower limb; Z79.82 Long term (current) use of aspirin; I82.452 Acute embolism and thrombosis of left peroneal vein; L02.612 Cutaneous abscess of left foot; D84.9 Immunodeficiency, unspecified; Z99.3 Dependence on wheelchair; E10.51 Type 1 diabetes mellitus with diabetic peripheral angiopathy without gangrene; I82.402 Acute embolism and thrombosis of unspecified deep veins of left lower extremity; A41.9 Sepsis, unspecified organism; U07.0 Vaping-related disorder; N17.9 Acute kidney failure, unspecified; A52.16 Charcot's arthropathy (tabetic); G89.29 Other chronic pain; E10.21 Type 1 diabetes mellitus with diabetic nephropathy; R79.89 Other specified abnormal findings of blood chemistry; E10.610 Type 1 diabetes mellitus with diabetic neuropathic arthropathy; I10 Essential (primary) hypertension; Z88.2 Allergy status to sulfonamides; L89.899 Pressure ulcer of other site, unspecified stage

== ENCOUNTER 2024-01-27 20:25 | Observation (INO) ==
[2024-01-27 21:03] LABS: Basophils # (auto) 0.02 K/uL (0.00-0.20); Basophils % (auto) 0.2 %; Eosinophils # (auto) 0.15 K/uL (0.00-0.50); Eosinophils % (auto) 1.4 %; Hematocrit (blood only) 40.2 % (42.0-52.0); Hemoglobin 12.2 g/dl (14.0-18.0); Immature Granulocytes # (auto) 0.04 K/uL (0.01-0.20); Immature Granulocytes % (auto) 0.4 %; Lymphocytes # (auto) 0.92 K/uL (1.20-3.40); Lymphocytes % (auto) 8.5 %; Mean Corpuscular Hemoglobin 24.6 pg (25.0-34.0); Mean Corpuscular Hgb Conc 30.3 g/dL (32.0-36.0); Mean Platelet Volume 9.2 fL (9.4-12.4); Monocytes # (auto) 1.19 K/uL (0.11-0.59); Neutrophils # (auto) 8.48 K/uL (1.40-6.50); Neutrophils % (auto) 78.5 %; Platelet Count 145 K/uL (130-400); RDW Standard Deviation 46.9 fL (36.4-46.3); Red Blood Count 4.96 M/uL (4.70-6.10)
[2024-01-27 21:15] LABS: Alanine Aminotransferase 10 U/L (7-52); Albumin Globulin Ratio 1.2 (0.9-2); Alkaline Phosphatase 106 U/L (34-104); Anion Gap 6 (3-11); Aspartate Aminotransferase 16 U/L (13-39); BUN Creatinine Ratio 21.2 (10-20); Bilirubin,Total 0.6 mg/dl (0.2-1.0); Blood Urea Nitrogen 28 mg/dl (6-23); Calcium 9.4 mg/dl (8.6-10.3); Carbon Dioxide 23 mmol/L (21-32); Chloride 103 mmol/L (98-107); Est GFR (African American) 77.7 ml/min; Globulin 3.4 gm/dl (2.5-4.0); Glucose 130 mg/dl (70-99(Fasting)); Potassium 4.1 mmol/L (3.5-5.1); Sodium 132 mmol/L (136-145); Total Protein 7.4 gm/dl (6.0-8.3)
[2024-01-27] MEDS ORDERED: VANCOMYCIN HCL 1,700 MG in SODIUM CHLORIDE 0.9% 500 ML IV ONE (21:46)
[2024-01-27] MEDS ORDERED: VANCOMYCIN CONSULT ACTIVE PRN (21:46)
--- NOTE | 2024-01-27 22:23 | Emergency Department Note ---
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 Patient states is on the antibiotic but is not sure what. Patient denies chest pain, dyspnea, cough, congestion, flulike illness. Home Medications Medication Instructions Recorded Confirmed Type clonazepam 0.5 mg tablet 0.5 mg PO BID Anxiety 11/03/18 01/27/24 History mycophenolate mofetil 250 mg 750 mg PO BID 10/20/22 01/27/24 History capsule rosuvastatin 10 mg tablet 10 mg PO DAILY 10/20/22 01/27/24 History carvedilol 6.25 mg tablet (Coreg) 6.25 mg PO BID #20 tabs 12/08/22 01/27/24 Rx aspirin 325 mg tablet 325 mg PO DAILY 12/19/22 01/27/24 History tacrolimus 1 mg capsule, 1 mg PO QAM 06/05/23 01/27/24 History immediate-release clonidine HCl 0.1 mg tablet 0.2 mg PO BID 06/11/23 01/27/24 History zinc sulfate 50 mg zinc (220 mg) 220 mg (4.4 x 50 mg zinc (220 mg)) 06/12/23 01/27/24 Rx capsule (Orazinc) PO QAM #30 caps furosemide 20 mg tablet 20 mg PO QAM PRN NEEDED PER 09/18/23 01/27/24 History [facility] methadone 10 mg/5 mL oral solution 105 mg PO DAILY 09/18/23 01/27/24 History pregabalin 75 mg capsule 75 mg PO TID 09/18/23 01/27/24 History silver sulfadiazine 1 % topical 1 applic topical DAILY 09/18/23 01/27/24 History cream (Silvadene) tacrolimus 0.5 mg capsule, 0.5 mg PO QPM 01/27/24 01/27/24 History immediate-release Allergies Allergy/AdvReac Type Severity Reaction Status Date / Time sulfamethoxazole Allergy Intermediate Rash Verified 01/27/24 23:01 [From Bactrim] trimethoprim [From Bactrim] Allergy Intermediate Rash Verified 01/27/24 23:01 Past Med/Surg History Problem List (Updated 01/27/24 @ 23:54 by Bria Hancock PA-C) Cellulitis of foot, right (Acute) Foot abscess, left Acute deep vein thrombosis (DVT) of left lower extremity (Acute) Elevated procalcitonin (Acute) Cellulitis of left lower extremity (Acute) Sepsis (Acute) Charcot's joint of left foot Charcot arthropathy of midfoot Scrotal edema Pancreas transplant status Renal transplant recipient Skin rash Open leg wound Elevated procalcitonin (Acute) Cellulitis of left leg (Acute) Abnormal ankle brachial index (Acute) Chronic venous insufficiency (Chronic) Venous stasis ulcers (Acute) Uncontrolled hypertension Closed fracture of right wrist (Acute) Fall (Acute) Low back pain (Acute) Bilateral pain of leg and foot (Acute) Cellulitis (Acute) Elevated troponin (Acute) Hypomagnesemia (Acute) Skin tear of right upper extremity (Acute) Traumatic open wound of great toe with delayed healing (Acute) PAD (peripheral artery disease) (Chronic) Dog bite of right arm (Acute) Skin tear of left upper extremity (Acute) Type I diabetes mellitus (Chronic) Diabetic peripheral neuropathy (Chronic) Traumatic open wound of right lower leg (Acute) Traumatic open wound of left lower leg with delayed healing (Acute) Hyperglycemia Fever Long-term exposure involving bird droppings Acute hypoxemic respiratory failure Gram-positive cocci bacteremia Hypertension (Acute) Pneumonia (Acute) Hepatitis C Gastroparesis End stage renal disease on dialysis due to type 1 diabetes mellitus (Chronic) Diabetic retinopathy of both eyes (Chronic) Anxiety Anemia ESRD (end stage renal disease) Acute hyperkalemia (Acute) Hyponatremia (Acute) Acute hyperglycemia (Acute) Prolongation of QRS complex on electrocardiography Hyperkalemia DKA (diabetic ketoacidoses) Prolonged Q-T interval on ECG Medical History Leukocytosis Critical illness polyneuropathy Pulmonary edema Current vaping on some days Substance abuse History of seizure seizure-like activity 02/14/2019 in setting of severe hyperglycemia (patient states he missed dialysis/insulin dose), DKA, confusion- lifeflighted to [place]/intubated/placed on ventilator. DKA managed with insulin drip on admission. EEG with no seizure activity noted. Neurology consulted and initially started patient on prophylactic Keppra but suspected seizure was complication of hyperglycemia and recommended weaning off anticonvulsants/advised no further neurology workup needed. Per patient, medication/dialysis compliance since discharge with glucoses in the range on 100's-200's on self-checks. Peritonitis currently on intraperitoneal abx Withdrawal from opioids Nephrotic syndrome Diabetes mellitus type I Hypertension Surgical History H/O eye surgery Hx of tonsillectomy Hx of tooth extraction Hx of vitrectomy B/L; right vitrectomy: 05/26/18: LMA#5 at [facility] [place] Peritoneal dialysis catheter in place Family History Grandfather (Maternal) Diabetes Grandfather (Paternal) Diabetes Grandmother (Paternal) Diabetes Grandmother (Maternal) Diabetes Aunt Diabetes Uncle Diabetes Father Hypertension Brother Hypertension Social History Smoking Status: Former smoker Tobacco Type: Cigarettes Second Hand Exposure: No; Do You Dip or Chew Tobacco: Yes; Hx Alcohol Use: No Hx Substance Use: Yes Last Used Substance: Unknown Substance Use Type Other:: On Methadone Preferred Language: [place] Irish Communication Ability: Effective Communication Ability Comment: sedated, arouses easily Visual Impairment: Severely Limited Hearing Ability: Normal Cupola Patcher Required: No Beliefs That Will Affect Care: None Current Living Situation: Family Current Living Situation Comment: aide help throughout the week current occupational status: employed and unemployed Other Information That Helps Us Care for You: No Feels Safe at Home: Yes Safety Concerns: Feels Safe At This Time Childhood Exposure to Second-Hand Smoke: No Diet: regular Diet Comment: diabetic caffeine: Yes during the past year weight has: other Dental Care, Regularly: Yes Physical Activity Frequency: Daily Seatbelt Use: always Sunscreen Use: Yes Assistive Devices: Crutches Review of Systems A total of 10 systems reviewed and were otherwise negative Physical Exam Vital Signs Vital Signs - 24 hr 01/27/24 20:29 01/27/24 21:00 01/27/24 21:21 Temperature 36.6 C Temperature Source Temporal Artery Scan Pulse Rate 77 72 Pulse Rate [Apical] 71 Pulse Rhythm [Apical] Regular Pulse Strength [Apical] Normal Respiratory Rate 16 18 Respiratory Effort / Characteristics Non-Labored Spontaneous Non-Labored Spontaneous Respiratory Depth Normal Normal Respiratory Pattern Regular Blood Pressure 155/72 H Blood Pressure [Right Arm] 142/78 H Blood Pressure Mean 99 Blood Pressure Mean [Right Arm] 99 Blood Pressure Position Sitting Blood Pressure Position [Right Arm] Lying Pulse Oximetry 99 97 Oxygen Delivery Method Room Air Room Air Sepsis Recent Fever Within 48 Hours No Sepsis New/Unexplained Change in Mental Status N/A Sepsis Action Taken by Nursing No Action Required 01/27/24 23:26 01/28/24 00:59 01/28/24 01:15 Temperature 36.8 C Temperature Source Oral Pulse Rate Pulse Rate [Apical] 65 63 63 Pulse Rhythm [Apical] Regular Pulse Strength [Apical] Normal Respiratory Rate 18 16 12 Respiratory Effort / Characteristics Non-Labored Spontaneous Non-Labored Spontaneous Non-Labored Spontaneous Respiratory Depth Normal Normal Normal Respiratory Pattern Regular Regular Regular Blood Pressure Blood Pressure [Right Arm] 149/80 H 153/81 H 158/83 H Blood Pressure Mean Blood Pressure Mean [Right Arm] 103 105 108 Blood Pressure Position Blood Pressure Position [Right Arm] Lying Pulse Oximetry 97 96 98 Oxygen Delivery Method Room Air Room Air Room Air Sepsis Recent Fever Within 48 Hours Sepsis New/Unexplained Change in Mental Status Sepsis Action Taken by Nursing 01/28/24 01:18 Temperature Temperature Source Pulse Rate 63 Pulse Rate [Apical] Pulse Rhythm [Apical] Pulse Strength [Apical] Respiratory Rate Respiratory Effort / Characteristics Respiratory Depth Respiratory Pattern Blood Pressure Blood Pressure [Right Arm] Blood Pressure Mean Blood Pressure Mean [Right Arm] Blood Pressure Position Blood Pressure Position [Right Arm] Pulse Oximetry Oxygen Delivery Method Sepsis Recent Fever Within 48 Hours Sepsis New/Unexplained Change in Mental Status Sepsis Action Taken by Nursing VITALS: Vitals are noted on the nurse's note and reviewed by myself. Vital signs stable. GENERAL: Pleasant patient, in no acute distress, nondiaphoretic, well-developed well-nourished. SKIN: Capillary reflex less than 2 seconds. HEENT: Normocephalic. PERRLA. EOMI. Nares patent. Mucous membranes moist. Neck is supple without nuchal rigidity. HEART: Regular rate and rhythm LUNGS: Clear to auscultation bilaterally without wheezes, rales or rhonchi. No retractions or accessory muscle use. ABDOMEN: Positive bowel sounds x 4. Normal tympanic percussion. Soft, nontender, without masses or organomegaly. Palomino sign negative. No guarding or rebound tenderness. no CVA tenderness MUSCULOSKELETAL: No gross musculoskeletal defects. Right foot erythematous and edematous with open wound to the plantar aspect concerning for infection. Pedal pulses +2 equal present bilaterally. NEURO: Patient was alert and oriented to person place and time. No focal neurological deficits. Course Administered Medications Discontinued Medications Cefepime HCl (Maxipime) 2,000 mg in 20 mls @ 5 mls/min IV NOW STA; Protocol Stop: 01/27/24 21:49 Last Admin: 01/27/24 22:32 Dose: 5 mls/min Documented By: ALEXSANDER Vancomycin HCl 2,000 mg/ (Sodium Chloride) 540 mls @ 200 mls/hr IV NOW ONE Stop: 01/28/24 00:41 Last Admin: 01/27/24 22:38 Dose: 200 mls/hr Documented By: ALEXSANDER Medical Decision Making Medical Records Attestation: I reviewed the patient's medical records. Home Medications Current Medication List: was personally reviewed by me Laboratory Data Attestation: I reviewed the patient's lab results. 01/27/24 20:40 01/27/24 20:40 Lab Results 01/27/24 01/27/24 Range/Units 20:40 21:50 WBC 10.80 (4.8-10.8) K/ul RBC 4.96 (4.70-6.10) M/uL Hgb 12.2 L (14.0-18.0) g/dl Hct 40.2 L (42.0-52.0) % MCV 81.0 (80.0-100.0) fL MCH 24.6 L (25.0-34.0) pg MCHC 30.3 L (32.0-36.0) g/dL RDW Std Deviation 46.9 H (36.4-46.3) fL RDW Coeff of Rebecca 16.0 H (11.5-14.5) % Plt Count 145 (130-400) K/uL MPV 9.2 L (9.4-12.4) fL Immature Gran % (Auto) 0.4 % Neut % (Auto) 78.5 % Lymph % (Auto) 8.5 % [place] % (Auto) 11.0 % Eos % (Auto) 1.4 % Baso % (Auto) 0.2 % Neut # (Auto) 8.48 H (1.40-6.50) K/uL Lymph # (Auto) 0.92 L (1.20-3.40) K/uL [place] # (Auto) 1.19 H (0.11-0.59) K/uL Eos # (Auto) 0.15 (0.00-0.50) K/uL Baso # (Auto) 0.02 (0.00-0.20) K/uL Immature Gran # (Auto) 0.04 (0.01-0.20) K/uL Sodium 132 L (136-145) mmol/L Potassium 4.1 (3.5-5.1) mmol/L Chloride 103 (98-107) mmol/L Carbon Dioxide 23 (21-32) mmol/L Anion Gap 6 (3-11) BUN 28 H (6-23) mg/dl Creatinine 1.32 (0.6-1.4) mg/dl Est Cr Clr Drug Dosing Not Reportable Est GFR ( Amer) 77.7 ml/min Est GFR (Non-Af Amer) 67.0 ml/min BUN/Creatinine Ratio 21.2 H (10-20) Glucose 130 H (70-99(Fasting)) mg/dl Calcium 9.4 (8.6-10.3) mg/dl Total Bilirubin 0.6 (0.2-1.0) mg/dl AST 16 (13-39) U/L ALT 10 (7-52) U/L Alkaline Phosphatase 106 H (34-104) U/L Total Protein 7.4 (6.0-8.3) gm/dl Albumin 4.0 (3.4-5.0) gm/dl Globulin 3.4 (2.5-4.0) gm/dl Albumin/Globulin Ratio 1.2 (0.9-2) Procalcitonin 4.18 H (0-0.5) ng/ml Imaging Data Attestation: I personally reviewed and interpreted this imaging study as follows: Radiologist's Impression: Foot CT 01/27/24 22:22 Exam(s): CT RIGHT FOOT Without Contrast EXAM: CT Right Lower Extremity Without Intravenous Contrast, Foot CLINICAL HISTORY: Reason for exam: ? abscess. TECHNIQUE: Axial computed tomography images of the right foot without intravenous contrast. Automated exposure control was utilized for the study. A dose lowering technique was utilized adhering to the principles of ALARA. COMPARISON: X-ray right ankle: 01/27/2024 FINDINGS: Diagnostic sensitivity is reduced by the absence of IV contrast. Bones/joints: There is likely an end-stage neuropathic/Charcot-type arthropathy of the midfoot (talonavicular, calcaneocuboid, tarsometatarsal articulations) with dense bones, desquamation/destruction of the articular cartilages, bony fragmentation, loose bodies, deformity and dislocation. Soft tissues: Demonstrates diffuse inflammatory type soft tissue edema/swelling/cellulitis of the right foot. At the sole of the foot directly been of the cuboid bone is seen inflammatory soft tissue mass/phlegmon with associated increased density within the cuboid, representing an osteomyelitis (series 304 image 65). Other findings: . There is edema/swelling of the visualized right lower leg, and right ankle as well. IMPRESSION: Suboptimally evaluated due to absence of an IV contrast. There is likely an end-stage neuropathic/Charcot type arthropathy of the right midfoot. Diffuse inflammatory type soft tissue edema/swelling/cellulitis of the right foot noted. At the sole of the foot directly beneath the cuboid an inflammatory type soft tissue mass/phlegmon is seen with associated increased density within the cuboid bone, representing an osteomyelitis. Clinical correlation recommended. . Electronically signed by: Javier Kwok MD, ANAND 01/28/24 01:33 AM [facility] Narrative Prior records reviewed and summarized above. Triage Nursing notes reviewed. Additional history obtained from nursing The patient's history was concerning for swelling and pain in the leg. Differential diagnosis: Etiologies such as DVT, musculoskeletal, infection, joint effusion, trauma, lymphedema, idiopathic, CHF, as well as others were entertained.. Physical examination: The physical examination revealed no signs of infection. Neurovascularly intact. ER treatment provided: An order was placed for continuous cardiac monitoring. The monitor shows a rate of 60-100 with a sinus rhythm per my interpretation. Cefepime, vancomycin. Wound culture was taken and sent On reassessment the patient felt better. Diagnostics interpreted by me: The labs Independently Interpreted by myself revealed no worrisome leukocytosis, hyperglycemia without DKA Wound culture pending, blood cultures pending Imaging studies: Foot x-ray with soft tissue swelling without fracture or foreign body per my independent interpretation CT as above Ultrasound as above Consultation: A consultation was placed with the hospitalist. The case was discussed and diagnostics were reviewed. The patient was evaluated in the ER for further treatment. This appears to be consistent with right lower foot infection with concerns of osteomyelitis. This is chronic. Patient states his foot has gotten much more swollen over the past few days. Patient was given antibiotics. Prior wound cultures were reviewed. New wound culture was sent. Medicine was consulted and case is discussed. He will be evaluated for admission. By the evaluation outlined above emergent etiologies such as DVT, septic joint, trauma, CHF, as well as others were deemed relatively unlikely. The pt informed about the findings as listed above. All questions were answered and pleased with the treatment. The chart was completed utilizing [employer] Speech voice recognition software. Grammatical errors, random word insertions, pronoun errors, and incomplete sentences are an occassional consequence of this system due to software limitations, ambient noise, and hardware issues. Any formal questions or concerns about the content, text, or information contained within the body of this dictation should be directly addressed to the physician assistant speech language pathologist for clarification. Impression & Plan Cellulitis of foot, right Discharge Plan Visit Data Chief Complaint: Edema To Extremity Stated Complaint: BILATERAL LOWER EXTREMITY EDEMA ED Provider: Jean Garcia ED Midlevel Provider: Bria Hancock Discharge Problem: Cellulitis of foot, right Patient Disposition: Admitted As Inpatient Condition: Fair Forms Stand Alone Forms: [facility] [employer] Prescriptions Prescriptions: No Action aspirin 325 mg tablet 325 mg PO DAILY clonazepam 0.5 mg tablet 0.5 mg PO BID mycophenolate mofetil 250 mg capsule 750 mg PO BID Rx Instructions: 3 caps (250 each cap) BID rosuvastatin 10 mg tablet 10 mg PO DAILY Hold Instructions: Resume on 06/20/23. Hold until you are completed with your IV antibiotic therapy carvedilol [Coreg] 6.25 mg tablet 6.25 mg PO BID Qty: 20 2RF Rx Instructions: must administer with a meal/food tacrolimus 1 mg Capsule 1 mg PO QAM Hold Instructions: Resume on 07/10/23. Hold until directed by your transplant team clonidine HCl 0.1 mg tablet 0.2 mg PO BID Rx Instructions: This dose is per Patient zinc sulfate [Orazinc] 50 mg zinc (220 mg) Capsule 220 mg PO QAM Qty: 30 0RF silver sulfadiazine [Silvadene] 1 % Cream 1 applic TOPICAL DAILY Rx Instructions: apply a 1.5 mm thickness methadone 10 mg/5 mL Solution 105 mg PO DAILY furosemide 20 mg tablet 20 mg PO QAM PRN (Reason: NEEDED PER NATA) pregabalin 75 mg capsule 75 mg PO TID tacrolimus 0.5 mg capsule 0.5 mg PO QPM Rx Instructions: This dose is per patient. Referrals Referrals: Ryan Leyva MD [Primary Care Provider] -
[2024-01-27] MEDS: CEFEPIME 2,000 MG/20 ML VIAL IV STA (22:32)
[2024-01-27] MEDS: VANCOMYCIN HCL 2,000 MG in SODIUM CHLORIDE 0.9% 500 ML IV ONE (22:38)
--- NOTE | 2024-01-28 01:34 | CT Scan Report ---
Exam(s): CT RIGHT FOOT Without Contrast EXAM: CT Right Lower Extremity Without Intravenous Contrast, Foot CLINICAL HISTORY: Reason for exam: ? abscess. TECHNIQUE: Axial computed tomography images of the right foot without intravenous contrast. Automated exposure control was utilized for the study. A dose lowering technique was utilized adhering to the principles of ALARA. COMPARISON: X-ray right ankle: 01/27/2024 FINDINGS: Diagnostic sensitivity is reduced by the absence of IV contrast. Bones/joints: There is likely an end-stage neuropathic/Charcot-type arthropathy of the midfoot (talonavicular, calcaneocuboid, tarsometatarsal articulations) with dense bones, desquamation/destruction of the articular cartilages, bony fragmentation, loose bodies, deformity and dislocation. Soft tissues: Demonstrates diffuse inflammatory type soft tissue edema/swelling/cellulitis of the right foot. At the sole of the foot directly been of the cuboid bone is seen inflammatory soft tissue mass/phlegmon with associated increased density within the cuboid, representing an osteomyelitis (series 304 image 65). Other findings: . There is edema/swelling of the visualized right lower leg, and right ankle as well. IMPRESSION: Suboptimally evaluated due to absence of an IV contrast. There is likely an end-stage neuropathic/Charcot type arthropathy of the right midfoot. Diffuse inflammatory type soft tissue edema/swelling/cellulitis of the right foot noted. At the sole of the foot directly beneath the cuboid an inflammatory type soft tissue mass/phlegmon is seen with associated increased density within the cuboid bone, representing an osteomyelitis. Clinical correlation recommended. . Electronically signed by: Javier Kwok MD, ANAND 01/28/24 01:33 AM
--- NOTE | 2024-01-28 01:37 | Ultrasound Report ---
Exam(s): US VENOUS RIGHT LOWER EXTREMITY EXAM: US Duplex Right Lower Extremity Veins CLINICAL HISTORY: Reason for exam: swelling. TECHNIQUE: Real-time duplex ultrasound scan of the right lower extremity veins integrating B-mode two-dimensional vascular structure, Doppler spectral analysis, color flow Doppler imaging and compression. COMPARISON: None. FINDINGS: Deep veins: Unremarkable. No DVT in the visualized common femoral, femoral, proximal deep femoral or popliteal veins. The veins demonstrate normal color flow, are normally compressible, with normal phasic flow and/or augmentation response. Superficial veins: Unremarkable. No thrombus in the visualized great saphenous vein. Soft tissues: No acute findings. No popliteal cyst. Other findings: . Right groin: Enlarged lymph nodes/lymphadenopathy IMPRESSION: No sonographic evidence of DVT in the right lower extremity. Right inguinal/groin lymphadenopathy. . Electronically signed by: Javier Kwok MD, ANAND 01/28/24 01:36 AM
--- NOTE | 2024-01-28 02:27 | History & Physical Report ---
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 Patient was in the hospital in September with left lower extremity cellulitis and sepsis. Podiatry drained at bedside left foot blister. Because of his multiple medical problems patient was transferred to [facility]. Patient states at [facility] he was treated with antibiotics. Completed the course of antibiotics. During last admission was also found to have DVT in left lower extremity and patient states is no longer on anticoagulation. Patient having pain and swelling bilateral foot and was worried about infection and came to the hospital today. Denies any fevers. Ambulating with the crutches. Family helps him. Denies any headache. No dizziness. No runny nose or sore throat. No blurred visions. No cough. No difficulty swallowing. No chest marco n or shortness of breath. No nausea. No abdominal pain. Normal bowel and bladder movements. Hemodynamics are okay currently. Bilateral foot infections On dorsal aspect with swelling and open wounds History of Charcot's joint of left foot and cellulitis and left foot abscess Right foot CT shows cellulitis/phlegmon/osteomyelitis Will also get left foot CT IV Vanco and Zosyn Keep him n.p.o., IV fluids ID and podiatry consult in a.m. Recent left lower extremity DVT No longer anticoagulation Right lower extremity Doppler negative for DVT We also check a left lower extremity Doppler TRESSA History of renal/pancreatic transplant for diabetic nephropathy 2020 Immunocompromised On tacrolimus and mycophenolate Present with creatinine 1.3 Baseline creatinine 0.8 We will follow repeat labs If not improving will discuss with transplant team Mild elevation of alkaline phosphatase Follow repeat labs Chronic pain Continue home methadone Hyperlipidemia On statin Hypertension On Coreg and clonidine Will monitor Peripheral vascular disease On aspirin and statin DVT prophylaxis SCDs in anticipation of any procedure Disposition Med/telemetry Full code. 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 Patient was in the hospital in September with left lower extremity cellulitis and sepsis. Podiatry drained at bedside left foot blister. Because of his multiple medical problems patient was transferred to [facility]. Patient states at [facility] he was treated with antibiotics. Completed the course of antibiotics. During last admission was also found to have DVT in left lower extremity and patient states is no longer on anticoagulation. Patient having pain and swelling bilateral foot and was worried about infection and came to the hospital today. Denies any fevers. Ambulating with the crutches. Family helps him. Denies any headache. No dizziness. No runny nose or sore throat. No blurred visions. No cough. No difficulty swallowing. No chest pain or shortness of breath. No nausea. No abdominal pain. Normal bowel and bladder movements. Hemodynamics are okay currently. Past medical history. As mentioned above Past surgical history. HC reposition peritoneal dialysis catheter . S/p pancreas transplant. S/p kidney transplant. Partial removal of right eye fluid. Tonsillectomy. Surgical removal of erupted tooth. Social history. Snuff tobacco. No alcohol use. No drug use. Family history. Brother has hypertension. Father has hypertension. Lung cancer. Mother from urosepsis. Diabetes in the family. Allergies Allergy/AdvReac Type Severity Reaction Status Date / Time sulfamethoxazole Allergy Intermediate Rash Verified 01/27/24 23:01 [From Bactrim] trimethoprim [From Bactrim] Allergy Intermediate Rash Verified 01/27/24 23:01 Home Medications Medication Instructions Recorded Confirmed Type clonazepam 0.5 mg tablet 0.5 mg PO BID Anxiety 11/03/18 01/27/24 History mycophenolate mofetil 250 mg 750 mg PO BID 10/20/22 01/27/24 History capsule rosuvastatin 10 mg tablet 10 mg PO DAILY 10/20/22 01/27/24 History carvedilol 6.25 mg tablet (Coreg) 6.25 mg PO BID #20 tabs 12/08/22 01/27/24 Rx aspirin 325 mg tablet 325 mg PO DAILY 12/19/22 01/27/24 History tacrolimus 1 mg capsule, 1 mg PO QAM 06/05/23 01/27/24 History immediate-release clonidine HCl 0.1 mg tablet 0.2 mg PO BID 06/11/23 01/27/24 History zinc sulfate 50 mg zinc (220 mg) 220 mg (4.4 x 50 mg zinc (220 mg)) 06/12/23 01/27/24 Rx capsule (Orazinc) PO QAM #30 caps furosemide 20 mg tablet 20 mg PO QAM PRN NEEDED PER 09/18/23 01/27/24 History [facility] methadone 10 mg/5 mL oral solution 105 mg PO DAILY 09/18/23 01/27/24 History pregabalin 75 mg capsule 75 mg PO TID 09/18/23 01/27/24 History silver sulfadiazine 1 % topical 1 applic topical DAILY 09/18/23 01/27/24 History cream (Silvadene) tacrolimus 0.5 mg capsule, 0.5 mg PO QPM 01/27/24 01/27/24 History immediate-release Past Med/Surg History Problem List (Updated 01/28/24 @ 02:20 by Ruslan Lees MD) Wound of lower extremity Cellulitis of foot, right (Acute) Foot abscess, left Acute deep vein thrombosis (DVT) of left lower extremity (Acute) Elevated procalcitonin (Acute) Cellulitis of left lower extremity (Acute) Sepsis (Acute) Charcot's joint of left foot Charcot arthropathy of midfoot Scrotal edema Pancreas transplant status Renal transplant recipient Skin rash Open leg wound Elevated procalcitonin (Acute) Cellulitis of left leg (Acute) Abnormal ankle brachial index (Acute) Chronic venous insufficiency (Chronic) Venous stasis ulcers (Acute) Uncontrolled hypertension Closed fracture of right wrist (Acute) Fall (Acute) Low back pain (Acute) Bilateral pain of leg and foot (Acute) Cellulitis (Acute) Elevated troponin (Acute) Hypomagnesemia (Acute) Skin tear of right upper extremity (Acute) Traumatic open wound of great toe with delayed healing (Acute) PAD (peripheral artery disease) (Chronic) Dog bite of right arm (Acute) Skin tear of left upper extremity (Acute) Type I diabetes mellitus (Chronic) Diabetic peripheral neuropathy (Chronic) Traumatic open wound of right lower leg (Acute) Traumatic open wound of left lower leg with delayed healing (Acute) Hyperglycemia Fever Long-term exposure involving bird droppings Acute hypoxemic respiratory failure Gram-positive cocci bacteremia Hypertension (Acute) Pneumonia (Acute) Hepatitis C Gastroparesis End stage renal disease on dialysis due to type 1 diabetes mellitus (Chronic) Diabetic retinopathy of both eyes (Chronic) Anxiety Anemia ESRD (end stage renal disease) Acute hyperkalemia (Acute) Hyponatremia (Acute) Acute hyperglycemia (Acute) Prolongation of QRS complex on electrocardiography Hyperkalemia DKA (diabetic ketoacidoses) Prolonged Q-T interval on ECG Medical History Leukocytosis Critical illness polyneuropathy Pulmonary edema Current vaping on some days Substance abuse History of seizure seizure-like activity 02/14/2019 in setting of severe hyperglycemia (patient states he missed dialysis/insulin dose), DKA, confusion- lifeflighted to [place]/intubated/placed on ventilator. DKA managed with insulin drip on admission. EEG with no seizure activity noted. Neurology consulted and initially started patient on prophylactic Keppra but suspected seizure was complication of hyperglycemia and recommended weaning off anticonvulsants/advised no further neurology workup needed. Per patient, medication/dialysis compliance since discharge with glucoses in the range on 100's-200's on self-checks. Peritonitis currently on intraperitoneal abx Withdrawal from opioids Nephrotic syndrome Diabetes mellitus type I Hypertension Surgical History H/O eye surgery Hx of tonsillectomy Hx of tooth extraction Hx of vitrectomy B/L; [place]26[place] [facility] [facility] [place]itoneal dialysis catheter in place Family History Grandfather (Maternal) Diabetes Grandfather (Paternal) Diabetes Grandmother (Paternal) Diabetes Grandmother (Maternal) Diabetes Aunt Diabetes Uncle Diabetes Father Hypertension Brother Hypertension Social History Smoking Status: Former smoker Tobacco Type: Cigarettes Second Hand Exposure: No; Do You Dip or Chew Tobacco: No; Tobacco Cessation Education Requested by Patient: No Hx Alcohol Use: No Hx Substance Use: No Preferred Language: Grenadian Communication Ability: Effective Communication Ability Comment: sedated, arouses easily Visual Impairment: Severely Limited Hearing Ability: Normal Regional Liaison Required: No Beliefs That Will Affect Care: None Current Living Situation: Family Current Living Situation Comment: aide help throughout the week current occupational status: employed and unemployed Other Information That Helps Us Care for You: No Feels Safe at Home: Yes Safety Concerns: Feels Safe At This Time Childhood Exposure to Second-Hand Smoke: No Diet: regular Diet Comment: diabetic caffeine: Yes during the past year weight has: other Dental Care, Regularly: Yes Physical Activity Frequency: Daily Seatbelt Use: always Sunscreen Use: Yes Assistive Devices: Wheelchair Review of Systems Review of Systems: All systems reviewed & are unremarkable except as noted in HPI & below Physical Exam Physical Exam: General- Not in distress Head- atraumatic Eyes- PERRL. ENT- oropharynx clear Neck- supple, no JVD. Heart- regular rate and rhythm; no murmur, no gallop Abdomen- normal bowel sounds, soft, nontender, no distension. Extremities- bilateral dorsal aspect of foot swollen with open wounds seen. Neuro- alert, oriented PERRL, no facial palsy; no dysarthria; moves extremities Results & Data Results & Data Vital Signs (Past 12 Hours) Vital Signs Temp Pulse Pulse Resp BP BP Pulse Ox 01/28/24 01:18 63 01/28/24 01:15 63 12 158/83 H 98 01/28/24 00:59 36.8 C 63 16 153/81 H 96 01/27/24 23:26 65 18 149/80 H 97 01/27/24 21:21 72 01/27/24 21:00 71 18 142/78 H 97 01/27/24 20:29 36.6 C 77 16 155/72 H 99 O2 Del Method 01/28/24 01:18 01/28/24 01:15 Room Air 01/28/24 00:59 Room Air 01/27/24 23:26 Room Air 01/27/24 21:21 01/27/24 21:00 Room Air 01/27/24 20:29 Room Air Diagnostic Findings Laboratory Results WBC 10.80 K/ul (4.8-10.8) 01/27/24 20:40 RBC 4.96 M/uL (4.70-6.10) 01/27/24 20:40 Hgb 12.2 g/dl (14.0-18.0) L 01/27/24 20:40 Hct 40.2 % (42.0-52.0) L 01/27/24 20:40 MCV 81.0 fL (80.0-100.0) 01/27/24 20:40 MCH 24.6 pg (25.0-34.0) L 01/27/24 20:40 MCHC 30.3 g/dL (32.0-36.0) L 01/27/24 20:40 RDW Std Deviation 46.9 fL (36.4-46.3) H 01/27/24 20:40 RDW Coeff of Rebecca 16.0 % (11.5-14.5) H 01/27/24 20:40 Plt Count 145 K/uL (130-400) 01/27/24 20:40 MPV 9.2 fL (9.4-12.4) L 01/27/24 20:40 Immature Gran % (Auto) 0.4 % 01/27/24 20:40 Neut % (Auto) 78.5 % 01/27/24 20:40 Lymph % (Auto) 8.5 % 01/27/24 20:40 [place] % (Auto) 11.0 % 01/27/24 20:40 Eos % (Auto) 1.4 % 01/27/24 20:40 Baso % (Auto) 0.2 % 01/27/24 20:40 Neut # (Auto) 8.48 K/uL (1.40-6.50) H 01/27/24 20:40 Lymph # (Auto) 0.92 K/uL (1.20-3.40) L 01/27/24 20:40 [place] # (Auto) 1.19 K/uL (0.11-0.59) H 01/27/24 20:40 Eos # (Auto) 0.15 K/uL (0.00-0.50) 01/27/24 20:40 Baso # (Auto) 0.02 K/uL (0.00-0.20) 01/27/24 20:40 Immature Gran # (Auto) 0.04 K/uL (0.01-0.20) 01/27/24 20:40 Sodium 132 mmol/L (136-145) L 01/27/24 20:40 Potassium 4.1 mmol/L (3.5-5.1) 01/27/24 20:40 Chloride 103 mmol/L (98-107) 01/27/24 20:40 Carbon Dioxide 23 mmol/L (21-32) 01/27/24 20:40 Anion Gap 6 (3-11) 01/27/24 20:40 BUN 28 mg/dl (6-23) H 01/27/24 20:40 Creatinine 1.32 mg/dl (0.6-1.4) 01/27/24 20:40 Est Cr Clr Drug Dosing Not Reportable 01/27/24 20:40 Est GFR ( Amer) 77.7 ml/min 01/27/24 20:40 Est GFR (Non-Af Amer) 67.0 ml/min 01/27/24 20:40 BUN/Creatinine Ratio 21.2 (10-20) H 01/27/24 20:40 Glucose 130 mg/dl (70-99(Fasting)) H 01/27/24 20:40 Calcium 9.4 mg/dl (8.6-10.3) 01/27/24 20:40 Total Bilirubin 0.6 mg/dl (0.2-1.0) 01/27/24 20:40 AST 16 U/L (13-39) 01/27/24 20:40 ALT 10 U/L (7-52) 01/27/24 20:40 Alkaline Phosphatase 106 U/L (34-104) H 01/27/24 20:40 Total Protein 7.4 gm/dl (6.0-8.3) 01/27/24 20:40 Albumin 4.0 gm/dl (3.4-5.0) 01/27/24 20:40 Globulin 3.4 gm/dl (2.5-4.0) 01/27/24 20:40 Albumin/Globulin Ratio 1.2 (0.9-2) 01/27/24 20:40 Procalcitonin 4.18 ng/ml (0-0.5) H 01/27/24 21:50 Impressions Venous Doppler Study 01/27/24 21:43 Exam(s): US VENOUS RIGHT LOWER EXTREMITY EXAM: US Duplex Right Lower Extremity Veins CLINICAL HISTORY: Reason for exam: swelling. TECHNIQUE: Real-time duplex ultrasound scan of the right lower extremity veins integrating B-mode two-dimensional vascular structure, Doppler spectral analysis, color flow Doppler imaging and compression. COMPARISON: None. FINDINGS: Deep veins: Unremarkable. No DVT in the visualized common femoral, femoral, proximal deep femoral or popliteal veins. The veins demonstrate normal color flow, are normally compressible, with normal phasic flow and/or augmentation response. Superficial veins: Unremarkable. No thrombus in the visualized great saphenous vein. Soft tissues: No acute findings. No popliteal cyst. Other findings: . Right groin: Enlarged lymph nodes/lymphadenopathy IMPRESSION: No sonographic evidence of DVT in the right lower extremity. Right inguinal/groin lymphadenopathy. . Electronically signed by: Javier Kwok MD, DABR 01/28/24 01:[address] 01/27/24 22:22 Exam(s): CT RIGHT FOOT Without Contrast EXAM: CT Right Lower Extremity Without Intravenous Contrast, Foot CLINICAL HISTORY: Reason for exam: ? abscess. TECHNIQUE: Axial computed tomography images of the right foot without intravenous contrast. Automated exposure control was utilized for the study. A dose lowering technique was utilized adhering to the principles of ALARA. COMPARISON: X-ray right ankle: 01/27/2024 FINDINGS: Diagnostic sensitivity is reduced by the absence of IV contrast. Bones/joints: There is likely an end-stage neuropathic/Charcot-type arthropathy of the midfoot (talonavicular, calcaneocuboid, tarsometatarsal articulations) with dense bones, desquamation/destruction of the articular cartilages, bony fragmentation, loose bodies, deformity and dislocation. Soft tissues: Demonstrates diffuse inflammatory type soft tissue edema/swelling/cellulitis of the right foot. At the sole of the foot directly been of the cuboid bone is seen inflammatory soft tissue mass/phlegmon with associated increased density within the cuboid, representing an osteomyelitis (series 304 image 65). Other findings: . There is edema/swelling of the visualized right lower leg, and right ankle as well. IMPRESSION: Suboptimally evaluated due to absence of an IV contrast. There is likely an end-stage neuropathic/Charcot type arthropathy of the right midfoot. Diffuse inflammatory type soft tissue edema/swelling/cellulitis of the right foot noted. At the sole of the foot directly beneath the cuboid an inflammatory type soft tissue mass/phlegmon is seen with associated increased density within the cuboid bone, representing an osteomyelitis. Clinical correlation recommended. . Electronically signed by: Javier Kwok MD, ANAND 01/28/24 01:33 AM Code Status & VTE Plan VTE Prophylaxis Plan VTE Prophylaxis will be ordered: Yes
--- OUTSIDE RECORDS SUMMARY | 2024-01-28 02:41 | External Medical Summary | Summary of Care ---
Author Name Unknown Organization [facility] Address [address] [place] [address] Phone [phone] Care Team Providers Care Director Of Payroll Name Role Phone Ryan Leyva MD Primary Care Provider [phone] Encounter Details Date Type Department Care Team ([facility] st Contact Info) Description 01/13/2024 Orders Only PATIENT PORTAL DO NOT DELETE THIS DEPT USED BY EVIN [place] [id number] Allergies Active Allergy Reactions Criticality Noted Date Comments Sulfamethoxazole Rash 06/05/2023 Trimethoprim Rash 06/05/2023 documented as of this encounter (statuses as of 01/13/2024) Medications Medication Sig Dispensed Refills Start Date End Date Status Mycophenolate Mofetil 250 MG Oral Capsule (Cellcept) Take 3 Capsules by mouth in the morning and 3 Capsules before bedtime. 07/05/2021 Active Tacrolimus 1 MG Oral Capsule (Prograf) 2 times a day. 2 mg in AM and 1 mg at bedtime 09/14/2021 Active Aspirin 325 MG Oral Tablet Take 1 Tablet by mouth in the morning. Active Methadone HCl 10 MG/5ML Oral SolutionIndications: pt current dose 105mg Take 50 mL by mouth daily. Active Santyl 250 UNIT/GM External Ointment 05/17/2023 Active Triamcinolone Acetonide 0.1 % External Cream (Aristocort)Indicati ons:Rash and nonspecific skin eruption,Scald burn Apply topically to affected area 2 times a day. On left forearm and Rt thigh till better 45 g 1 05/21/2023 Active Clotrimazole-Betamet hasone 1-0.05 % External Cream (Lotrisone) 05/25/2023 Active Silvadene 1 % External Cream Apply topically to affected area daily. 50 g 2 05/31/2023 Active Zinc 220 (50 Zn) MG Oral Capsule Take 220 mg by mouth every morning. 06/13/2023 Active Tamsulosin HCl 0.4 MG Oral Capsule (Flomax) Take 1 Capsule by mouth in the morning. 09/26/2023 Active Zinc 25 MG Oral Tablet Take 3 Tablets by mouth in the morning and 3 Tablets before bedtime. Active Cefadroxil 1 GM Oral Tablet Take 1 Tablet by mouth in the morning and 1 Tablet before bedtime. 12/20/2023 Active Cefadroxil 1 GM Oral Tablet Take 1 g by mouth in the morning and 1 g before bedtime. 20 Tablet 01/01/2024 Active Pregabalin 75 MG Oral Capsule (Lyrica)Indications: Venous stasis of both lower extremities Take 1 Capsule by mouth in the morning and 1 Capsule at noon and 1 Capsule in the evening. 90 Capsule 1 01/07/2024 Active clonazePAM 0.5 MG Oral Tablet (KlonoPIN)Indication s:JOB (generalized anxiety disorder) Take 1 Tablet by mouth 2 times a day as needed for Anxiety. 60 Tablet 01/07/2024 Active Furosemide 20 MG Oral Tablet (Lasix) Take 1 Tablet by mouth daily as needed (fluid). take 1 tab by mouth daily as needed 30 Tablet 1 01/07/2024 Active Carvedilol 6.25 MG Oral Tablet (Coreg) Take 1 Tablet by mouth in the morning and 1 Tablet before bedtime. 180 Tablet 3 01/07/2024 Active Rosuvastatin Calcium 10 MG Oral Tablet (Crestor)Indications :Type 1 diabetes mellitus with hemoglobin A1c goal of less than 7.0% (HCC) Take 1 Tablet by mouth in the morning. In the morning.. 90 Tablet 01/07/2024 Active cloNIDine HCl 0.1 MG Oral Tablet (Catapres)Indication s:pt taking 2 tablets in morning and 2 tablets at night Take 1 Tablet by mouth in the morning and 1 Tablet in the evening. 180 Tablet 3 01/10/2024 Active Hospital, Clinic, or Other Facility Administered Medication Ordered Dose Route Frequency Start Date End Date Status bevaCIZumab (Avastin) inj 1.25 mgIndications:Prolifer ative diabetic retinopathy of both eyes associated with type 1 diabetes mellitus, unspecified proliferative retinopathy type (HCC) 1.25 mg IZ PRN 10/03/2023 10/02/2024 Ac tive ROPivacaine (Naropin) inj 1.5 mgIndications:Prolifer ative diabetic retinopathy of both eyes associated with type 1 diabetes mellitus, unspecified proliferative retinopathy type (HCC) 1.5 mg PERINEURAL PRN 10/03/2023 10/02/2024 Ac tive documented as of this encounter (statuses as of 01/13/2024) Active Problems Problem Noted Date Diagnosed Date [...] as of this encounter (statuses as of 01/13/2024) Resolved Problems Problem Noted Date Diagnosed Date [...] as of this encounter (statuses as of 01/13/2024) Immunizations Name Administration Dates Next Due COVID-19 mRNA, LNP-s, No Pre serve, 2-Dose Series (Moderna) 08/09/2020,07/12/2020 Seasonal Influenza Virus Vac cine, Unspecified Formulation 05/10/2018,07/15/2017 Seasonal Influenza, PF, 6 M & above, IM , (FluLaval or Fluzone) 03/07/2020,03/18/2019 Seasonal Influenza, Quadriva lent,with Preserve, 3 yr & above, IM 07/15/2017 Seasonal Influenza, Split, I IV3, With Preserve, Inj 03/07/2020,03/18/2019,05/10/2018,2017 TDAP, Age 7 and older, IM (Adacel) 06/21/2018, documented as of this encounter Social History Tobacco Use Types Packs/Day Years Used Date Smoking Tobacco: Former Vaporizer Smokeless Tobacco: Current Snuff Comments:12/07/19-quit 2 yrs ago Alcohol Use Standard Drinks/Week Comments No 0 (1 standard drink = 0.6 oz pur e alcohol) Utilities Answer Date Recorded Do you have trouble paying y our heating, water, or electric bill? (Adult - for ages 18 years and over) Not on file 11/26/2023 Is your family able to pay t he heat, water, or electric bill? (Household - for ages 0-17 years) Not on file 11/26/2023 Does your family have access to good internet? (Household - for ages 0-17 years) Not on file 11/26/2023 Social Connections Answer Date Recorded How often do you feel lonely or isolated from those around you? (Adult - for ages 18 years and over) Not on file 11/26/2023 Sex and Gender Information Value Date Recorded [...] 09/30/2001 Diabetic Foot Exam 09/30/2001 Hepatitis B Vaccine (1 of 3 - 19+ 3-dose series) 09/30/2002 COVID-19 Vaccine (3 - Moderna risk series) 09/06/2020 08/09/2020, 07/12/2020 Diabetic Eye Exam 12/18/2023 12/17/2022, , 09/15/2021, Additional history exists Influenza Vaccine (FLU shot) (#1) 2024 03/07/2020, 03/07/2020, 03/18/2019, Additional history exists HbA1c 05/01/2024 10/30/2023, 10/2023, 04/04/2023, Additional history exists Lipid Panel 12/06/2024 12/07/2019, 10/28/2018 GFR 12/14/2024 12/15/2023, 10/09, 10/28/2023, Additional history exists DTaP,Tdap,and Td Vaccines (3 - Td or Tdap) 06/21/2028 06/21/2018, 12/05/2011 HPV (Gardasil) Vaccine Aged Out No lo nger eligible based on patient's age to complete this topic MENINGOCOCCAL (MENACTRA/MENVEO) Aged Out No longer eligible based on patient's age to complete this topic documented as of this encounter Medical Devices Not on filedocumented as of this encounter Advance Directives * Full Code (Latest Code Status on File) Date Activated Date Inactivated Comments 02/14/2019 10:34 PM 02/20/2019 3:48 PM This order r eflects the patients wishes and were consensually agreed upon. Question Answer Comments Discussion of Advance Directives occurred with: Not Discussed Care Teams Director Of Payroll Relationship Specialty Start Date End Date Ryan Leyva MD [address] [place] [id number] PCP - General Family Medicine 07/17/22 documented as of this encounter
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
--- OUTSIDE RECORDS SUMMARY | 2024-01-28 02:42 | External Medical Summary | Summary of Care ---
Author Name Unknown Organization [facility] Address [address] [place] [address] Phone [phone] Care Team Providers Care Musical Engineer Name Role Phone Ryan Leyva MD Primary Care Provider [phone] Reason for Visit * Reason Onset Date Comments Medication Refill 01/10/2024 Encounter Details Date Type Department Care Team (Late st Contact Info) Description 01/10/[address] [facility] [address] [place] [address] Ryan Leyva MD [address] [place] [id number] Allergies Active Allergy Reactions Criticality Noted Date Comments Sulfamethoxazole Rash 06/05/2023 Trimethoprim Rash 06/05/2023 documented as of this encounter (statuses as of 01/10/2024) Medications Medication Sig Dispensed Refills Start Date [...] 01/01/2024 Active Pregabalin 75 MG Oral Capsule (Lyrica)Indicatio [...] the evening. 180 Tablet 3 01/10/2024 Active cloNIDine HCl 0.1 MG Oral Tablet (Catapres) Take 1 Tablet by mouth in the morning and 1 Tablet in the evening. 180 Tablet 3 10/08/2022 01/10/2024 Discontinue d(Refill) Hospital, Clinic, or Other Facility [...] as of this encounter (statuses as of 01/10/2024) Active Problems Problem Noted Date Diagnosed Date [...] as of this encounter (statuses as of 01/10/2024) Resolved Problems Problem Noted Date Diagnosed Date [...] as of this encounter (statuses as of 01/10/2024) Immunizations Name Administration Dates Next Due COVID-19 [...] encounter Miscellaneous Notes * Telephone Encounter - Charisse Avalos CRNP - 01/10/2024 3:13 PM EDTSigned Prescriptions: Disp Refills cloNIDine HCl 0.1 MG Oral Tablet (Catapres)180 Ta*3 Sig: Take 1 Tablet by mouth in the morning and 1 Tablet in the evening.Authorizing Provider: CHARISSE AVALOS--- * Telephone Encounter - Zaida Rea [facility] - 01/10/2024 11:10 AM EDTPending Prescriptions: Disp Refills cloNIDine HCl 0.1 MG Oral Tablet (Catapres)180 Ta*3 Sig: Take 1 Tablet by mouth in the morning and 1 Tablet in the evening. * Telephone Encounter - Zaida Rea [facility] - 01/10/2024 11:10 AM EDT [facility] is currently not authorized to approve refills for the pended medication(s) per refill protocol. Please approve if appropriate. Did you pend patient's preferred pharmacy and medication before forwarding?yes Pharmacy: [id number] [address] [facility] Pending Prescriptions: Disp Refills cloNIDine HCl 0.1 MG Oral Tablet (Catapres)180 Ta*3 Sig: Take 1 Tablet by mouth in the morning and 1 Tablet in the evening. Last Visit: 01/01/2024 (in office), 12/10/2023 (telemedicine) Next Visit: Visit date not found If no future appointments scheduled, and last appointment is greater than a year ago, please schedule patient for a follow-up appointment Last date the medication was ordered: 10/08/22 Is this request for a controlled substance?No Urine Drug Screen: Results for orders placed or performed during [...] TESTING IS AVAILABLE UPON REQUEST. Cutoff Concentration Patient Phone Numbers [facility] [phone] Labs: Lab Results Component Value Date/Time CREAT 2.50 (A) 12/15/2023 12:00 AM CREAT 1.07 11/01/2021 10:22 AM CREAT 7.4 (H) 12/07/2019 12:02 PM POTASSIUM 4.3 12/15/2023 12:00 AM POTASSIUM 4.6 11/01/2021 10:22 AM POTASSIUM 4.4 12/07/2019 12:02 PM TSH 1.53 07/01/1998 12:34 PM LDLCALC 126 12/07/2019 12:02 PM ALT 20 12/07/2019 12:02 PM HGBA1C 5.3 10/30/2023 09:27 AM HGBA1C 5.2 06/14/2023 12:00 AM HGBA1C 5.2 11/01/2021 10:22 AM HGBA1C 8.0 (H) 12/07/2019 12:02 PM Thank you, Zaida Rea PharmD Clinical Pharmacist [facility] 01/10/24 11:10 AM [phone] * Telephone Encounter - Racheal Ford PHARM Tech - 01/10/2024 10:58 AM EDT Patient is out of med. Did you pend patient's preferred pharmacy and medication before forwarding?yes Pharmacy: [id number] [address] [facility] Pending Prescriptions: Disp Refills cloNIDine HCl 0.1 MG Oral Tablet (Catapre* Sig: Take 1 Tablet by mouth in the morning and 1 Tablet in the evening. Last Visit: 01/01/2024 (in office), 12/10/2023 (telemedicine) Next Visit: Visit date not found If no future appointments scheduled, and last appointment is greater than a year ago, please schedule patient for a follow-up appointment Last date the medication was ordered: 10/08/2022 Is this request for a controlled substance?No Urine Drug Screen: Results for orders placed or performed during [...] TESTING IS AVAILABLE UPON REQUEST. Cutoff Concentration Patient Phone Numbers Labs: Lab Results Component Value Date/Time CREAT 2.50 (A) 12/15/2023 12:00 AM CREAT 1.07 11/01/2021 10:22 AM CREAT 7.4 (H) 12/07/2019 12:02 PM POTASSIUM 4.3 12/15/2023 12:00 AM POTASSIUM 4.6 11/01/2021 10:22 AM POTASSIUM 4.4 12/07/2019 12:02 PM TSH 1.53 07/01/1998 12:34 PM LDLCALC 126 12/07/2019 12:02 PM ALT 20 12/07/2019 12:02 PM HGBA1C 5.3 10/30/2023 09:27 AM HGBA1C 5.2 06/14/2023 12:00 AM HGBA1C 5.2 11/01/2021 10:22 AM [...] 03/18/2019, Additional history exists HbA1c 05/01/2024 10/30/2023, 01/0 10/2023, 04/04/2023, Additional history exists Lipid Panel [...] Directives occurred with: Not Discussed Care Teams Musical Engineer Relationship Specialty Start Date End Date Ryan Leyva MD [address] [place] [address] PCP - General Family Medicine 07/17/22 documented as of this encounter
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
--- OUTSIDE RECORDS SUMMARY | 2024-01-28 02:42 | External Medical Summary | Summary of Care ---
Author Name Unknown Organization [facility] Address [address] [place] [address] Phone [phone] Care Team Providers Care Shaft Repairer Name Role Phone Ryan Leyva MD Primary Care Provider [phone] Reason for Visit * Reason Onset Date Comments Hospital Follow-Up Pt here for h ospital follow up, states he is having ongoing L leg swelling and redness. Pt states he has been treated for cellulitis and is not improving Hospital Follow-Up 01/02/2024 Encounter Details Date Type Department Care Team (Late st Contact Info) Description 01/01/2024 11:00 AM EDT Office Visit [facility] [address] [facility] [place] [address] Ryan Leyva MD [address] [facility] [place] [address] Hospital discharge follow-up*; Cellulitis of left lower extremity; 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 ([facility]) Allergies Active Allergy Reactions Criticality Noted Date Comments Sulfamethoxazole Rash 06/05/2023 Trimethoprim Rash 06/05/2023 documented as of this encounter (statuses as of 01/02/2024) Medications Medication Sig Dispensed Refills Start Date [...] the evening. 180 Tablet 3 10/08/2022 Active Additional Information Patient taking differently:100 mcg Oral BID (0700,1900),Indications: pt taking 2 tablets in morning and 2 tablets at night, Informant: Patient, Reported on 01/01/2024 Methadone HCl 10 MG/5ML Oral SolutionIndicati ons:pt current dose 105mg Take 50 mL by [...] Clotrimazole-Bet amethasone 1-0.05 % External Cream (Lotrisone) 05/25/2023 Active Silvadene 1 % External Cream Apply topically to affected area daily. 50 g 2 05/31/2023 Active Zinc 220 (50 Zn) MG Oral Capsule Take 220 mg by mouth every morning. 06/13/2023 Active Furosemide 20 MG Oral Tablet (Lasix) take 1 tab by mouth daily as needed 30 Tablet 09/16/2023 Active Pregabalin 75 MG Oral Capsule (Lyrica)Indicati ons:Venous stasis of both lower extremities Take 1 Capsule by mouth in the morning and 1 Capsule at noon and 1 Capsule in the evening. 90 Capsule 1 09/30/2023 Active Tamsulosin HCl 0.4 MG Oral Capsule (Flomax) Take 1 Capsule by mouth in the morning. 09/26/2023 Active Rosuvastatin Calcium 10 MG Oral Tablet [...] and 1 Tablet before bedtime. 12/20/2023 Active clonazePAM 0.5 MG Oral Tablet (KlonoPIN)Indica tions:JOB (generalized anxiety disorder) TAKE ONE TABLET BY MOUTH TWICE DAILY NEEDED for anxiety 60 Tablet 12/30/2023 Active Cefadroxil 1 GM Oral Tablet Take 1 g by mouth in the morning and 1 g before bedtime. 20 Tablet 01/01/2024 Active Cyclobenzaprine HCl 10 MG Oral Tablet (Flexeril) 4 Discontinued oxyCODONE HCl 10 MG Oral Tablet (Roxicodone) Take 1 Tablet by mouth 2 times a day as needed. 09/26/2023 4 Discontinued Eliquis 5 MG Oral TabletIndication s:Deep venous thrombosis (DVT) of left peroneal vein, unspecified chronicity (HCC) Take 1 Tablet by mouth in the morning and 1 Tablet before bedtime. 60 Tablet 12/30/2023 4 Discontinued Hospital, Clinic, or Other Facility Administered [...] as of this encounter (statuses as of 01/02/2024) Active Problems Problem Noted Date Diagnosed Date [...] as of this encounter (statuses as of 01/02/2024) Resolved Problems Problem Noted Date Diagnosed Date [...] as of this encounter (statuses as of 01/02/2024) Immunizations Name Administration Dates Next Due COVID-19 [...] Sign Reading Time Taken Comments Blood Pressure 134/64 01/01/2024 10:46 AM EDT Pulse 76 01/01/2024 10:46 AM EDT Temperature 36.4 C (97.5 F) 01/01/2024 10:46 AM E DT Respiratory Rate 18 01/01/2024 10:46 AM EDT Oxygen Saturation - - Inhaled Oxygen Concentration - - Weight - - Height - - Body Mass Index - - documented in this encounter Functional Status Functional Status Response Date of Assess ment Does this person have seriou s difficulty walking or climbing stairs? Yes 10/28/2018 documented as of this encounter Progress Notes * Ryan Leyva MD - 01/02/2024 1:54 PM EDT SUBJECTIVE: Bernard Jones is a 38 year old male. Chief Complaint Patient presents with Hospital Follow-Up Pt here for hospital follow up, states he is having ongoing L leg swelling and redness. Pt states he has been treated for cellulitis and is not improving Hospital Follow-Up Recent Admission: Patient was recently admitted to [facility]. The date of discharge was unknown. Discharge report received and reviewed. HPI: Patient was sent from [facility] to another [facility] in [place]. I have no records and patient does not recall what hospital he was in. He was treated for cellulitis and discharged with oral antibiotics which he has finished. He still has some redness and swelling of the left leg. Of note he has a very guarded prognosis in general due to multiple medical comorbidities as well as psychosocial barriers to care. He presents today in a motorized wheelchair. Of note, his insurance will no longer pay for him to see me as his PCP. He is aware of this. Patient Active Problem List Diagnosis Stable proliferative diabetic retinopathy of both eyes associated with type 1 diabetes mellitus (HCC) HTN, goal below 130/80 Seizure disorder (HCC) Hepatitis C virus infection cured after antiviral drug therapy Kidney replaced by transplant 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 (HCC) JOB (generalized anxiety disorder) History of drug abuse (HCC) Overweight (BMI 25.0-29.9) Venous stasis of both lower extremities 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HCC) History of type 1 diabetes mellitus Diabetic Charcot foot (HCC) Necrolytic acral erythema Current Outpatient Medications Medication Sig Dispense Refill Tacrolimus 1 MG Oral Capsule (Prograf) 2 times a day. 2 mg in AM and 1 mg at bedtime Aspirin 325 MG Oral Tablet Take 1 Tablet by mouth in the morning. cloNIDine HCl 0.1 MG Oral Tablet (Catapres) Take 1 Tablet by mouth in the morning and 1 Tablet in the evening. (Patient taking differently: Take 1 Tablet by mouth in the morning and 1 Tablet in the evening.) 180 Tablet 3 Methadone HCl 10 MG/5ML Oral Solution Take 50 mL by mouth daily. Carvedilol 6.25 MG Oral Tablet (Coreg) Take 1 Tablet by mouth in the morning and 1 Tablet before bedtime. 180 Tablet 3 Santyl 250 UNIT/GM External Ointment Triamcinolone Acetonide [...] Take 220 mg by mouth every morning. Furosemide 20 MG Oral Tablet (Lasix) take 1 tab by mouth daily as needed 30 Tablet 0 Pregabalin 75 MG Oral Capsule (Lyrica) Take 1 Capsule by mouth in the morning and 1 Capsule at noonand 1 Capsule in the evening. 90 Capsule 1 Tamsulosin HCl 0.4 MG Oral Capsule (Flomax) Take 1 Capsule by mouth in the morning. Rosuvastatin Calcium 10 MG Oral Tablet (Crestor) TAKE ONE TABLET BY MOUTH IN THE MORNING 90 Tablet 0 clonazePAM 0.5 MG Oral Tablet (KlonoPIN) TAKE ONE TABLET BY MOUTH TWICE DAILY NEEDED for irtfill25 Tablet 0 Cefadroxil 1 GM Oral Tablet Take 1 g by mouth in the morning and 1 g before bedtime. 20 Tablet 0 Mycophenolate Mofetil 250 MG Oral Capsule (Cellcept) Take 3 Capsules by mouth in the morning and 3 Capsules before bedtime. Zinc 25 MG Oral Tablet Take 3 Tablets by mouth in the morning and 3 Tablets before bedtime. Cefadroxil 1 GM Oral Tablet Take 1 Tablet by mouth in the morning and 1 Tablet before bedtime. Current Facility-Administered Medications Medication Dose Route Frequency Provider Last Rate Last Admin bevaCIZumab (Avastin) inj 1.25 mg 1.25 mg Intravitreal PRN Burton Schroeder, DO 1.25 mg at 12/27/23 1020 ROPivacaine (Naropin) inj 1.5 mg 1.5 mg Perineural PRN Bruton Schroeder T, DO 1.5 mg at 020 Current and discharge medications have been reconciled. Review of patient's allergies indicates: Allergen Reactions Sulfamethoxazole Rash Trimethoprim Rash OBJECTIVE: BP 134/64 | Pulse 76 | Temp 36.4 C (97.5 F) (Tympanic) | Resp 18 PHYSICAL EXAM: Gen: nad HEENT: edentulous Lungs: ctab Heart: rrr, no mrg Skin: cellulitis of left lower leg noted; no open sores; multiple skin lesions all over his entire body ASSESSMENT: Hospital discharge follow-up (Primary) - DISCH MED RECON CUR MED LIS Cellulitis of left lower extremity -unresolved; will treat with 10 more days of Cefadroxil per ID recommendations 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 (HCC) PLAN: Continue present medication(s): Follow up as needed. I spent a total of 40-54 minutes (exact time 53 mins) minutes on the date of service in preparation, delivery, and documentation of the care provided to Bernard Jones excluding any time spent in performance of separately billed services. Ryan Leyva MD documented in this encounter Nursing Notes * Tonie Rodriguez LPN - 01/01/2024 10:46 AM EDT The patient has been properly identified by confirmation of name and date of . Chief Complaint Patient presents with Hospital Follow-Up Pt here for hospital follow up, states he is having ongoing L leg swelling and redness. Pt states he has been treated for cellulitis and is not improving documented in this encounter Plan of Treatment [...] Hospital discharge follow-up- Primary Other follow-up examination Cellulitis of left lower extremity Cellulitis and abscess of leg, except foot 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 (HCC) 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 documented in this encounter Advance Directives * Full Code (Latest Code Status on File) Date Activated Date Inactivated Comments 02/14/2019 10:34 PM 02/20/2019 3:48 PM This order r eflects the patients wishes and were consensually agreed upon. Question Answer Comments Discussion of Advance Directives occurred with: Not Discussed Care Teams Shaft Repairer Relationship Specialty Start Date End Date Ryan Leyva MD [address] [place] [address] PCP - General Family Medicine 07/17/22 documented as of this encounter"
--- OUTSIDE RECORDS SUMMARY | 2024-01-28 02:42 | External Medical Summary | Summary of Care ---
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, bilateral (HCC) Procedures ID BEVACIZUMAB INJECTION ID INTRAVITREAL NJX PHARMACOLOGIC AGT SPX Burton Schroeder DO [address] [place] [address] Ophthalmology [facility] [address] [facility] [place] [address] Referral ID Status Reason Start Date Expiration Date V isits Requested Visits Authorized [id number] Authorized Precert 12/26/2023 12/25/2024 [id number] Encounter Details Date Type Department Care Team (Late st Contact Info) Description 12/27/2023 9:30 AM EDT Office [facility], [facility] [place] [address] Burton Schroeder DO [address] [place] [address] Proliferative diabetic retinopathy of both eyes associated with type 1 diabetes mellitus, unspecified proliferative retinopathy type (HCC)* Allergies Active Allergy Reactions Criticality Noted Date Comments Sulfamethoxazole Rash 06/05/2023 Trimethoprim Rash 06/05/2023 documented as of this encounter (statuses as of 12/27/2023) Medications Medication Sig Dispensed Refills Start Date [...] 09/16/2023 Active Pregabalin 75 MG Oral Capsule (Lyrica)Indicatio [...] bedtime. Active clonazePAM 0.5 MG Oral Tablet (KlonoPIN)Indicat ions:JOB (generalized anxiety disorder) TAKE ONE TABLET BY MOUTH TWICE DAILY NEEDED FOR ANXIETY 60 Tablet 11/25/2023 Active Eliquis 5 MG Oral TabletIndications :Deep venous thrombosis (DVT) of left peroneal vein, unspecified chronicity (HCC) Take 1 Tablet by mouth in the morning and 1 Tablet before bedtime. 60 Tablet 12/05/2023 Active Cefadroxil 1 GM Oral Tablet Take 1 Tablet by mouth in the morning and 1 Tablet before bedtime. 12/20/2023 Active ceFAZolin IV IV (AMBULATORY) Administer intravenously. Through IV Pump Discontinue d(Medicatio n List Clean Up) Hospital, Clinic, or Other [...] as of this encounter (statuses as of 12/27/2023) Active Problems Problem Noted Date Diagnosed Date [...] as of this encounter (statuses as of 12/27/2023) Resolved Problems Problem Noted Date Diagnosed Date [...] as of this encounter (statuses as of 12/27/2023) Immunizations Name Administration Dates Next Due COVID-19 [...] of this encounter Progress Notes * Burton Schroeder, - 12/27/2023 9:30 AM EDT new VH OD started this week TIMEOUT PROCEDURE: correct patient identity-YES correct procedure [...] Nursing Notes * Lucille Loo RN - 12/27/2023 10:17 AM EDT Bernard Jones to receive 15 Avastin 1.25mg Injection of the Right eye. Correct eye confirmed with patient and marked by Burton Schroeder, Avastin 1.25mg lot # [id number] Exp. Date: 02/09/2024 * Lucille Loo RN - 12/27/2023 10:01 AM EDT Bernard Jones is a 38 year old year old male who presents for PDR OU. Last Office Visit: 10/31/2023 (in office), Visit date not found (telemedicine) Patient currently states "bleed right eye started 2 nights ago-woke up and completely bloody" Are you diabetic? Yes. Do you check your blood sugars daily? YES. Fasting BS this mornin mg/dl. Last Hemoglobin A1C: Lab Results Component Value Date/Time HGBA1C 5.3 10/30/2023 09:27 AM HGBA1C 5.2 06/14/2023 12:00 AM HGBA1C 5.1 04/04/2023 12:00 AM HGBA1C 4.9 12/03/2022 12:00 AM HGBA1C 5.2 11/01/2021 10:22 AM HGBA1C 5.3 09/14/2021 09:15 AM HGBA1C 5.2 09/08/2021 09:12 AM HGBA1C 8.0 (H) 12/07/2019 12:02 PM HGBA1C 13.8 (H) 02/14/2019 02:56 PM HGBA1C 14.0 (H) 10/28/2018 02:[address]? no OCT image(s) of right eye acquired and filed/scanned into chart. documented in this encounter Plan of Treatment Upcoming Encounters Date Type Department Care Team (Late st Contact Info) Description 01/01/2024 11:00 AM EDT Office Visit Family [facility] [address] [place] [address] Ryan Leyva MD [address] [place] [address] Scheduled Orders Name Type Priority Associated Diagnoses Orde r Schedule RETINA SCAN DIAGNOSTIC IMAGE, POSTERIOR Procedures Routine Proliferative diabetic retinopathy of both eyes associated with type 1 diabetes mellitus, unspecified proliferative retinopathy type (HCC) Ordered: 12/27/2023 Health Maintenance Due Date Last Done Comments [...] 03/18/2019, Additional history exists HbA1c 05/01/2024 10/30/2023, /0 10/2023, 04/04/2023, Additional history exists Lipid Panel [...] 1.25 mg, Intravitreal, PRN Other, Starting on Rosa Isela 10/03/23 at 0924, Until Sat10/02/24 at 0923, For 365 days Given 12/27/2023 10:20 AM EDT 1.25 mg Eye Right Given 10/31/2023 9:14 AM EDT 1.25 mg Ey e Left Given 10/03/2023 12:08 PM EDT 1.25 mg E ye Right ROPivacaine (Naropin) inj 1.5 mg 1.5 mg, Perineural, PRN Other, Starting on Rosa Isela 10/03/23 at 0924, Until Sat10/02/24 at 0923, For 365 days Given 12/27/2023 10:20 AM EDT 1.5 mg Eye Right Given 10/31/2023 9:13 AM EDT 1.5 mg Ey e Left Given 10/03/2023 12:08 PM EDT 1.5 mg E ye Right documented in this encounter Advance Directives * Full Code (Latest Code Status on File) Date Activated Date Inactivated Comments 02/14/2019 10:34 PM 02/20/2019 3:48 PM This order r eflects the patients wishes and were consensually agreed upon. Question Answer Comments Discussion of Advance Directives occurred with: Not Discussed Care Teams [employer] Air[employer] Officer Relationship Specialty Start Date End Date Ryan Leyva MD [address] [address] PCP - General Family Medicine 07/17/22 documented as of this encounter
--- OUTSIDE RECORDS SUMMARY | 2024-01-28 02:42 | External Medical Summary | Summary of Care ---
Author Name Unknown Organization [facility] Address [address] [place] [address] Phone [phone] Care Team Providers Care Cable Machine Operator Name Role Phone Farida Do MD Primary Care Provider [phone] [phone] Reason for Visit * Reason Comments eRx-Medication Refill Encounter Details Date Type Department Care Team (Late st Contact Info) Description 12/30/2023 Refill Family Practice [facility] [address] [place] [address] Farida Do MD [address] [place] [address] Deep venous thrombosis (DVT) of left peroneal vein, unspecified chronicity (HCC); JOB (generalized anxiety disorder) Allergies Active Allergy Reactions Criticality Noted Date Comments Sulfamethoxazole Rash 06/05/2023 Trimethoprim Rash 06/05/2023 documented as of this encounter (statuses as of 12/30/2023) Medications Medication Sig Dispensed Refills Start Date [...] and 1 Tablet before bedtime. 12/20/2023 Active Eliquis 5 MG Oral TabletIndications :Deep venous thrombosis (DVT) of left peroneal vein, unspecified chronicity (HCC) Take 1 Tablet by mouth in the morning and 1 Tablet before bedtime. 60 Tablet 12/30/2023 Active clonazePAM 0.5 MG Oral Tablet (KlonoPIN)Indicat ions:JOB (generalized anxiety disorder) TAKE ONE TABLET BY MOUTH TWICE DAILY NEEDED for anxiety 60 Tablet 12/30/2023 Active clonazePAM 0.5 MG Oral Tablet (KlonoPIN)Indicat ions:JOB (generalized anxiety disorder) TAKE ONE TABLET BY MOUTH TWICE DAILY NEEDED FOR ANXIETY 60 Tablet 11/25/2023 4 Discontinued Eliquis 5 MG Oral TabletIndications :Deep venous thrombosis (DVT) of left peroneal vein, unspecified chronicity (HCC) Take 1 Tablet by mouth in the morning and 1 Tablet before bedtime. 60 Tablet 12/05/2023 4 Discontinued Hospital, Clinic, or Other Facility [...] as of this encounter (statuses as of 12/30/2023) Active Problems Problem Noted Date Diagnosed Date [...] as of this encounter (statuses as of 12/30/2023) Resolved Problems Problem Noted Date Diagnosed Date [...] as of this encounter (statuses as of 12/30/2023) Immunizations Name Administration Dates Next Due COVID-19 [...] Telephone Encounter - Farida Do MD - 12/30/2023 1:17 PM EDTSigned Prescriptions: Disp Refills Eliquis 5 MG Oral Tablet 60 Tab*0 Sig: Take 1 Tablet by mouth in the morning and 1 Tablet before bedtime. Authorizing Provider: FARIDA DO clonazePAM 0.5 MG Oral Tablet (KlonoPIN) 60 Tab*0 Sig: TAKE ONE TABLET BY MOUTH TWICE DAILY NEEDED for anxiety Authorizing Provider: FARIDA DO * Telephone Encounter - Silvestre Nugent [facility] - 12/30/2023 1:15 PM EDT Pending Prescriptions: Disp Refills Eliquis 5 MG Oral Tablet [Pharmacy Med Nam*60 Tab*0 Sig: Take 1 Tablet by mouth in the morning and 1 Tablet before bedtime. clonazePAM 0.5 MG Oral Tablet [Pharmacy Me*60 Tab*0 Sig: TAKE ONE TABLET BY MOUTH TWICE DAILY NEEDED FOR ANXIETY * Telephone Encounter - Silvestre Nugnet [facility] - 12/30/2023 1:13 PM EDT I have reviewed the patients controlled substance dispensing history in the Prescription Drug Monitoring Program in compliance with the [facility] regulations before prescribing a controlled substance. PDMP checked on 12/30/2023. Pending Prescriptions: Disp Refills Eliquis 5 MG Oral Tablet [Pharmacy Med Na*60 Tab*0 Sig: Take 1 Tablet by mouth in the morning and 1 Tablet before bedtime. clonazePAM 0.5 MG Oral Tablet (KlonoPIN) *60 Tab*0 Sig: TAKE ONE TABLET BY MOUTH TWICE DAILY NEEDED for anxiety Last Visit: 10/30/2023 (in office), 12/10/2023 (telemedicine) Next Visit: 01/01/2024 Date medication was last filled: 11/26/2023 Date medication is due for refill: 12/24/2023 Pharmacy: [id number] Is this request for a controlled [...] Concentration Please approve if appropriate. Thank You, Silvestre Nugent, Pharm-D Clinical Pharmacist [facility] ([facility]) [phone] 12/30/2023, 1:14 PM documented in this encounter Plan of Treatment Upcoming Encounters Date Type Department Care Team (Late st Contact Info) Description 01/01/2024 11:00 AM EDT Office Visit [facility] [address] [place] [address] Farida Do MD [address] [place] [address] Health Maintenance Due Date Last Done Comments [...] 03/18/2019, Additional history exists HbA1c 05/01/2024 10/30/2023, 010 10/2023, 04/04/2023, Additional history exists Lipid Panel [...] as of this encounter Visit Diagnoses Diagnosis Deep venous thrombosis (DVT) of left peroneal vein, unspecified chronicity (HCC) JOB (generalized anxiety disorder) Generalized anxiety disorder documented in this encounter Advance Directives * Full Code (Latest Code Status on File) Date Activated Date Inactivated Comments 02/14/2019 10:34 PM 02/20/2019 3:48 PM This order r eflects the patients wishes and were consensually agreed upon. Question Answer Comments Discussion of Advance Directives occurred with: Not Discussed Care Teams Cable Machine Operator Relationship Specialty Start Date End Date Farida Do MD [address] [facility] [place] [address] PCP - General Family Medicine 07/17/22 documented as of this encounter
--- OUTSIDE RECORDS SUMMARY | 2024-01-28 02:42 | External Medical Summary | Summary of Care ---
Author Name Unknown Organization [facility] Address [address] [place] [address] Phone [phone] Care Team Providers Care Service Correspondent Name Role Phone Ryan Leyva MD Primary Care Provider [phone] Reason for Visit * Reason Onset Date Comments Medication Refill 01/07/2024 Encounter Details Date Type Department Care Team (Late st Contact Info) Description 01/07/2024 Refill Family Practice [facility] [address] [facility] [place] [address] Ryan Leyva MD [address] [place] [id number] Type 1 diabetes mellitus with hemoglobin A1c goal of less than 7.0% ([facility]) Allergies Active Allergy Reactions Criticality Noted Date Comments Sulfamethoxazole Rash 06/05/2023 Trimethoprim Rash 06/05/2023 documented as of this encounter (statuses as of 01/07/2024) Medications Medication Sig Dispensed Refills Start Date [...] on 01/01/2024 Methadone HCl 10 MG/5ML Oral SolutionIndicatio ns:pt [...] g before bedtime. 20 Tablet 01/01/2024 Active Furosemide 20 MG Oral Tablet (Lasix) [...] In the morning.. 90 Tablet 01/07/2024 Active Carvedilol 6.25 MG Oral Tablet (Coreg) Take 1 Tablet by mouth in the morning and 1 Tablet before bedtime. 180 Tablet 3 01/14/2023 4 Discontinue d(Refill) Furosemide 20 MG Oral Tablet (Lasix) take 1 tab by mouth daily as needed 30 Tablet 09/16/2023 4 Discontinue d(Refill) Pregabalin 75 MG Oral Capsule (Lyrica)Indicatio ns:Venous stasis of both lower extremities Take 1 Capsule by mouth in the morning and 1 Capsule at noon and 1 Capsule in the evening. 90 Capsule 1 09/30/2023 4 Discontinue d(Refill) Rosuvastatin Calcium 10 MG Oral Tablet (Crestor)Indicati ons:Type 1 diabetes mellitus with hemoglobin A1c goal of less than 7.0% (HCC) TAKE ONE TABLET BY MOUTH IN THE MORNING 90 Tablet 10/24/2023 4 Discontinue d(Refill) clonazePAM 0.5 MG Oral Tablet (KlonoPIN)Indicat ions:JOB (generalized anxiety disorder) TAKE ONE TABLET BY MOUTH TWICE DAILY NEEDED for anxiety 60 Tablet 12/30/2023 4 Discontinue d(Refill) Hospital, Clinic, or Other Facility [...] as of this encounter (statuses as of 01/07/2024) Active Problems Problem Noted Date Diagnosed Date [...] as of this encounter (statuses as of 01/07/2024) Resolved Problems Problem Noted Date Diagnosed Date [...] as of this encounter (statuses as of 01/07/2024) Immunizations Name Administration Dates Next Due COVID-19 [...] encounter Miscellaneous Notes * Telephone Encounter - Rafiq Priest CPhT - 01/07/2024 11:35 AM EDT Pharmacy requesting high priority as pt is due for medication soon and they will have to ship the medication to the pt. Did you pend patient's preferred pharmacy and medication before forwarding?yes Pharmacy: [facility] [id number] [place] [address] Pending Prescriptions: Disp Refills Furosemide 20 MG Oral Tablet (Lasix) 30 Tab*0 Sig: take 1 tab by mouth daily as needed Carvedilol 6.25 MG Oral Tablet (Coreg) 180 Ta*3 Sig: Take 1 Tablet by mouth in the morning and 1 Tablet before bedtime. Rosuvastatin Calcium 10 MG Oral Tablet (C*90 Tab*0 Sig: Take 1 Tablet by mouth in the morning. In the morning.. Last Visit: 01/01/2024 (in office), 12/10/2023 (telemedicine) Next Visit: Visit date not found If no future appointments scheduled, and last appointment is greater than a year ago, please schedule patient for a follow-up appointment Last date the medication was ordered: 09/16/2023, 01/14/2023, 10/24/2023 Is this request for a controlled substance?No [...] UPON REQUEST. Cutoff Concentration Patient Phone Numbers [facility] [phone] Labs: Lab Results Component Value Date/Time CREAT [...] documented in this encounter Plan of Treatment Scheduled Orders Name Type Priority Associated Diagnoses Orde r Schedule LIPID PANEL WITH DIRECT LDL IF TG IS HIGH Lab Routine Type 1 diabetes mellitus with hemoglobin A1c goal of less than 7.0% (HCC) Expected: 01/14/2024 (Approximate), Expires: 01/06/2025 Health Maintenance Due Date Last Done Comments [...] 06/21/2028 06/21/2018, 12/05/2011 Hepatitis C Screening Completed 06/14/2023 , 06/07/2023, 04/04/2023, Additional history exists HPV (Gardasil) Vaccine Aged Out No lo [...] (HCC) documented in this encounter Advance Directives * Full Code (Latest Code Status on File) Date Activated Date Inactivated Comments 02/14/2019 10:34 PM 02/20/2019 3:48 PM This order r eflects the patients wishes and were consensually agreed upon. Question Answer Comments Discussion of Advance Directives occurred with: Not Discussed Care Teams Service Correspondent Relationship Specialty Start Date End Date Ryan Leyva MD [address] [place] [address] PCP - General Family Medicine 07/17/22 documented as of this encounter
--- OUTSIDE RECORDS SUMMARY | 2024-01-28 02:42 | External Medical Summary | Summary of Care ---
Author Name Unknown Organization [facility] Address [address] [place] [address] Phone [phone] Care Team Providers Care Transcript Evaluator Name Role Phone Ryan Leyva MD Primary Care Provider [phone] Reason for Visit * Reason Comments eRx-Medication Refill Encounter Details Date Type Department Care Team (Late st Contact Info) Description 12/24/2023 Refill Family Practice [facility] [address] [place] [address] Ryan Leyva MD [address] [facility] [place] [address] Type 1 diabetes mellitus with hemoglobin A1c goal of less than 7.0% ([facility]) Allergies Active Allergy Reactions Criticality Noted Date Comments Sulfamethoxazole Rash 06/05/2023 Trimethoprim Rash 06/05/2023 documented as of this encounter (statuses as of 12/25/2023) Medications Medication Sig Dispensed Refills Start Date [...] A1c goal of less than 7.0% ([facility]) TAKE ONE TABLET BY MOUTH IN THE [...] as of this encounter (statuses as of 12/25/2023) Active Problems Problem Noted Date Diagnosed Date [...] as of this encounter (statuses as of 12/25/2023) Resolved Problems Problem Noted Date Diagnosed Date [...] as of this encounter (statuses as of 12/25/2023) Immunizations Name Administration Dates Next Due COVID-19 [...] encounter Miscellaneous Notes * Telephone Encounter - Haydee Liu RPh - 12/25/2023 10:40 AM EDT Refused Prescriptions: Disp Refills Rosuvastatin Calcium 10 MG Oral Tablet (Cr*90 Tab*0 Sig: TAKE ONE TABLET BY MOUTH IN THE MORNINGRefused By: HAYDEE LIU for Refusal: Too soon-------- Electronically signed by Haydee Liu [facility] at 12/25/2023 10:40 AM EDT documented in this encounter Plan of Treatment [...] 03/18/2019, Additional history exists HbA1c 05/01/2024 10/30/2023, 0 10/2023, 04/04/2023, Additional history exists Lipid Panel [...] Directives occurred with: Not Discussed Care Teams Transcript Evaluator Relationship Specialty Start Date End Date Ryan Leyva MD [address] [place] [address] PCP - General Family Medicine 07/17/22 documented as of this encounter
--- OUTSIDE RECORDS SUMMARY | 2024-01-28 02:42 | External Medical Summary | Summary of Care ---
Author Name Unknown Organization [facility] Address [address] [place] [address] Phone [phone] Care Team Providers Care Director Supplier Quality Name Role Phone Ryan Leyva MD Primary Care Provider [phone] Reason for Visit * Reason Onset Date Comments Insurance 12/30/2023 Encounter Details Date Type Department Care Team (Late st Contact Info) Description 12/30/2023 Telephone Family Practice [facility] [place] [address] Ryan Leyva MD [address] [facility] [place] [address] Insurance Allergies Active Allergy Reactions Criticality Noted Date [...] 09/16/2023 Active Pregabalin 75 MG Oral Capsule (Lyrica)Indications: [...] bedtime. 12/20/2023 Active Eliquis 5 MG Oral TabletIndications:De ep venous thrombosis (DVT) of left peroneal vein, unspecified chronicity (HCC) Take 1 Tablet by mouth in the morning and 1 Tablet before bedtime. 60 Tablet 12/30/2023 Active clonazePAM 0.5 MG Oral Tablet (KlonoPIN)Indication s:JOB (generalized anxiety disorder) TAKE ONE TABLET BY MOUTH TWICE DAILY NEEDED for anxiety 60 Tablet 12/30/2023 Active Hospital, Clinic, or Other Facility Administered [...] encounter Miscellaneous Notes * Telephone Encounter - Shelby Fernandez OSA - 12/30/2023 3:30 PM EDT Delfina, This patient's insurance requires them to establish care with a PCP that is contracted with their plan. You are not a contracted provider with [facility] [employer] HMO insurance plan. Contracted PCPs are responsible to coordinate all care within the plans network. Because you are not contracted with the patient's insurance plan, your referral would not be valid. If you continue to provide services for Mr. Jones, compensation will not be received from the patient's insurance plan. Please recommend that Mr. Jones coordinate care with the PCP contracted with [facility] insurance network. Please let me know if you have any questions. Thank you, Shelby ESCALANTE Patient Liaison, [facility] [phone] documented in this encounter Plan of Treatment Upcoming Encounters Date Type Department Care Team (Late st Contact Info) Description 01/01/2024 11:00 AM EDT Office Visit Family Practice [facility] [address] [place] [address] Ryan Leyva MD [address] [place] [address] Health Maintenance Due Date Last Done Comments [...] occurred with: Not Discussed Care Teams Director Supplier Quality Relationship Specialty Start Date End Date Ryan Leyva MD [address] [place] [address] PCP - General Family Medicine 07/17/22 documented as of this encounter
--- OUTSIDE RECORDS SUMMARY | 2024-01-28 02:42 | External Medical Summary | Summary of Care ---
Author Name Unknown Organization [facility] Address [address] [place] [address] Phone [phone] Care Team Providers Care Full Stack Developer Name Role Phone Ryan Leyva MD Primary Care Provider [phone] Reason for Visit * Reason Onset Date Comments TRIAGE 09/27/2023 Encounter Details Date Type Department Care Team ([facility] st Contact Info) Description 09/27/2023 Telephone Ophthalmology, [address] [address] Services, Scheduling [address] [place] [address] TRIAGE Allergies Active Allergy Reactions Criticality Noted Date [...] daily as needed 30 Tablet 09/16/2023 Active documented as of this encounter [...] encounter Miscellaneous Notes * Telephone Encounter - Sara aGlan OSA - 09/27/2023 4:37 PM EDT Images from the original note were not included. Who is calling? Patient Best way to reach patient or person calling, if call back needed by nurse or physician: [phone] Patient complaint/concern: Infection in leg- vomitting- admitted- made eye complete blurry Location: Right eye How long has it been going on: 8 days Timing: constant Associated symptoms: floaters [place] ONLY: *Person filling out this form: Once form completed, please route to p [phone] (triage nurse pool) after 4:00 pm route to Resident Pool P [phone]. Please let patient know you have sent symptoms for triageand someone will reach out to patient with further instruction. Physician or nurse will triage & reply with instruction to appropriate pools as listed below. Thank you! *Physicians triaging patient, please reply to: -If only instructions needed- NO appointment scheduling needed, please route to p [phone] (triage nurse pool). -If instructions AND appointment needed, please route to p [phone] (triage nurse pool) and p [phone] (clinical research nurse coordinator pool). [place] ONLY: Route all messages to P [phone] [facility] Ophthalmology triage pool [facility]: documented in this encounter Plan of Treatment Upcoming Encounters Date Type Department Care Team (Late st Contact Info) Description 01/01/2024 11:00 AM EDT Office Visit Family [facility] [address] [place] [address] Ryan Leyva MD [address] [place] [address] Health Maintenance Due Date Last Done Comments [...] 03/18/2019, Additional history exists HbA1c 05/01/2024 10/30/2023, 0110/2023, 04/04/2023, Additional history exists Lipid Panel 12/06/2024 [...] Directives occurred with: Not Discussed Care Teams Full Stack Developer Relationship Specialty Start Date End Date Ryan Leyva MD [address] [place] [address] PCP - General Family Medicine 07/17/22 documented as of this encounter
--- OUTSIDE RECORDS SUMMARY | 2024-01-28 02:42 | External Medical Summary | Summary of Care ---
Author Name Unknown Organization [facility] Address [address] [place] [address] Phone [phone] Care Team Providers Care Blending Machine Feeder Name Role Phone Farida Do MD Primary Care Provider [phone] [phone] Reason for Visit * Reason Comments eRx-Medication Refill Encounter Details Date Type Department Care Team (Late st Contact Info) Description 12/30/2023 Refill Family Practice [facility] [address] [place] [address] Farida Do MD [address] [place] [address] Deep venous thrombosis (DVT) of left peroneal vein, unspecified chronicity (HCC); JOB (generalized anxiety disorder) Allergies Active Allergy Reactions Criticality Noted Date Comments Sulfamethoxazole Rash 06/05/2023 Trimethoprim Rash 06/05/2023 documented as of this encounter (statuses as of 12/31/2023) Medications Medication Sig Dispensed Refills Start Date [...] as of this encounter (statuses as of 12/31/2023) Active Problems Problem Noted Date Diagnosed Date [...] as of this encounter (statuses as of 12/31/2023) Resolved Problems Problem Noted Date Diagnosed Date [...] as of this encounter (statuses as of 12/31/2023) Immunizations Name Administration Dates Next Due COVID-19 [...] Miscellaneous Notes * Telephone Encounter - Sara Sorto PHARM Tech - 12/31/2023 10:42 AM EDT Pt calling to request Clonazapam. Informed pt that RX is available at their pharmacy. Pt verbalizedunderstanding and stated they will check with their pharmacy regarding this medication. Thank you, Sara Sorto Ethylbenzene Converter Helper I [facility] ([facility]) 12/31/2023,10:42 AM * Telephone Encounter - Farida Do MD [...] FARIDA DO * Telephone Encounter - Silvestre Nugent, [facility] - 12/30/2023 1:15 PM EDT Pending Prescriptions: Disp Refills Eliquis 5 MG Oral Tablet [Pharmacy Med Nam*60 Tab*0 Sig: Take 1 Tablet by mouth in the morning and 1 Tablet before bedtime. clonazePAM 0.5 MG Oral Tablet [Pharmacy Me*60 Tab*0 Sig: TAKE ONE TABLET BY MOUTH TWICE DAILY NEEDED FOR ANXIETY * Telephone Encounter - Silvestre Nugent, [facility] - 12/30/2023 1:13 PM EDT I have reviewed the patients controlled substance dispensing history in the Prescription Drug Monitoring Program in compliance with the [facility] regulations before prescribing a controlled substance. PDMP [...] medication is due for refill: 12/24/2023 Pharmacy: [id number] [address] [facility] Is this request for a controlled [...] Clinical Pharmacist [facility] Services ([facility]) [phone] 12/30/2023, 1:14 PM documented in this encounter Plan of Treatment Upcoming Encounters Date Type Department Care Team (Late st Contact Info) Description 01/01/2024 11:00 AM EDT Office Visit Family [facility] [address] [facility] [place] [address] Farida Do MD [address] [place] [address] Health Maintenance Due Date Last Done Comments [...] Directives occurred with: Not Discussed Care Teams Blending Machine Feeder Relationship Specialty Start Date End Date Farida Do MD [address] [place] [address] PCP - General Family Medicine 07/17/22 documented as of this encounter
--- OUTSIDE RECORDS SUMMARY | 2024-01-28 02:42 | External Medical Summary | Summary of Care ---
Author Name Unknown Organization [facility] Address [address] [place] [address] Phone [phone] Care Team Providers Care Patternmaker Wood Name Role Phone Farida Do MD Primary Care Provider [phone] [phone] Reason for Visit * Reason Onset Date Comments Medication Refill 01/07/2024 Encounter Details Date Type Department Care Team (Late st Contact Info) Description 01/07/2024 Refill Family Practice [facility] [address] [place] [address] Farida Do MD [address] [facility] [place] [id number] Venous stasis of both lower extremities; JOB (generalized anxiety disorder) Allergies Active Allergy [...] In the morning.. 90 Tablet 01/07/2024 Active Pregabalin 75 MG Oral Capsule (Lyrica)Indicatio ns:Venous stasis of both lower extremities Take 1 Capsule by mouth in the morning and 1 Capsule at noon and 1 Capsule in the evening. 90 Capsule 1 09/30/2023 4 Discontinue d(Refill) clonazePAM 0.5 MG Oral [...] Telephone Encounter - Farida Do MD - 01/07/2024 12:14 PM EDTSigned Prescriptions: Disp Refills Pregabalin 75 MG Oral Capsule (Lyrica) 90 Cap*1 Sig: Take 1 Capsule by mouth in the morning and 1 Capsule at noon and 1 Capsule in the evening. Authorizing Provider: FARIDA DO clonazePAM 0.5 MG Oral Tablet (KlonoPIN) 60 Tab*0 Sig: Take 1 Tablet by mouth 2 times a day as needed for Anxiety. Authorizing Pr ovider: FARIDA DO * Telephone Encounter - Consuelo Tipton [facility] - 01/07/2024 12:02 PM EDT Pending Prescriptions: Disp Refills Pregabalin 75 MG Oral Capsule (Lyrica) 90 Cap*1 Sig: Take 1 Capsule by mouth in the morning and 1 Capsule at noon and 1 Capsule in the evening. clonazePAM 0.5 MG Oral Tablet (KlonoPIN) 60 Tab*0 Sig: Take 1 Tablet by mouth 2 times a day as needed. * Telephone Encounter - Consuelo Tipton [facility] - 01/07/2024 12:01 PM EDT I have reviewed the patients controlled substance dispensing history in the Prescription Drug Monitoring Program in compliance with the [facility] regulations before prescribing a controlled substance. PDMP checked on 01/07/2024. Pending Prescriptions: Disp Refills Pregabalin 75 MG Oral Capsule (Lyrica) 90 Cap*1 Sig: Take 1 Capsule by mouth in the morning and 1 Capsule at noon and 1 Capsule in the evening. clonazePAM 0.5 MG Oral Tablet (KlonoPIN) 60 Tab*0 Sig: Take 1 Tablet by mouth 2 times a day as needed. Last Visit: 01/01/2024 (in office), 12/10/2023 (telemedicine) Next Visit: Visit date not found Date medication was last filled: pregabalin 12/05/23, clonazepam 12/30/23 Date medication is due for refill: pregabalin 01/02/24, clonazepam 01/28/24 Pharmacy: [facility] [place] [id number] [place] [address] Is this request for a controlled substance? [...] Cutoff Concentration Please approve if appropriate. Thanks, Consuelo Tipton [facility] Clinical Pharmacist Centralized Clinical Pharmacy Services ([facility]) [phone] * Telephone Encounter - Rafiq Priest CPhT - 01/07/2024 11:30 AM EDT Pharmacy is requesting high priority as it appears pt might be due for a refill on Pregabalin. Pharmacy is aware that pt is not due for Clonazepam, but would like an Rx on file given they are a new pharmacy for the pt and will need to ship the medication to the pt. Did you pend patient's preferred pharmacy and medication before forwarding?yes Pharmacy: [facility] [id number] [facility] Pending Prescriptions: Disp Refills Pregabalin 75 MG Oral Capsule (Lyrica) 90 Cap*1 Sig: Take 1 Capsule by mouth in the morning and 1 Capsule at noon and 1 Capsule in the evening. clonazePAM 0.5 MG Oral Tablet (KlonoPIN) 60 Tab*0 Sig: Take 1 Tablet by mouth 2 times a day as needed. Last Visit: 01/01/2024 (in office), 12/10/2023 (telemedicine) Next Visit: Visit date not found If no future appointments scheduled, and last appointment is greater than a year ago, please schedule patient for a follow-up appointment Last date the medication was ordered: 09/30/2023, 12/30/2023 Is this request for a controlled substance?Yes, What was the last refill date 09/30/2023, 12/30/2023 w/ quantity 90, 60 and dosage 75 mg, 0.5 mg and Urine Drug Screen was completed Urine Drug Screen: Results for orders placed [...] UPON REQUEST. Cutoff Concentration Patient Phone Numbers [employer] [phone] Labs: Lab Results Component Value Date/Time CREAT [...] as of this encounter Visit Diagnoses Diagnosis Venous stasis of both lower extremities JOB (generalized anxiety disorder) Generalized anxiety disorder documented in this encounter Advance Directives * Full Code (Latest Code Status on File) Date Activated Date Inactivated Comments 02/14/2019 10:34 PM 02/20/2019 3:48 PM This order r eflects the patients wishes and were consensually agreed upon. Question Answer Comments Discussion of Advance Directives occurred with: Not Discussed Care Teams Patternmaker Wood Relationship Specialty Start Date End Date Farida Do MD [address] [facility] [place] [address] PCP - General Family Medicine 07/17/22 documented as of this encounter
--- OUTSIDE RECORDS SUMMARY | 2024-01-28 02:43 | External Medical Summary | Summary of Care ---
Author Name Unknown Organization [facility] Address [address] [place] [address] Phone [phone] Care Team Providers Care Television Presenter Name Role Phone Ryan Leyva MD Primary Care Provider [phone] [phone] Encounter Details Date Type Department Care Team (Late st Contact Info) Description 12/17/2023 Orders Only Family [facility] [address] [place] [address] Ryan Leyva MD [address] [place] [address] Allergies Active Allergy Reactions Criticality Noted Date Comments Sulfamethoxazole Rash 06/05/2023 Trimethoprim Rash 06/05/2023 documented as of this encounter (statuses as of 12/17/2023) Medications Medication Sig Dispensed Refills Start Date [...] Active Triamcinolone Acetonide 0.1 % External Cream (Aristocort)Indica tions:Rash and nonspecific skin eruption,Scald burn Apply topically to affected area 2 times a day. On left forearm and Rt thigh till better 45 g 1 05/21/2023 Active Clotrimazole-Betam ethasone 1-0.05 % External Cream (Lotrisone) 05/25/2023 Active Silvadene 1 % External Cream Apply topically to affected area daily. 50 g 2 05/31/2023 Active Zinc 220 (50 Zn) MG Oral Capsule Take 220 mg by mouth every morning. 06/13/2023 Active Furosemide 20 MG Oral Tablet (Lasix) take 1 tab by mouth daily as needed 30 Tablet 09/16/2023 Active Pregabalin 75 MG Oral Capsule (Lyrica)Indication s:Venous stasis of both lower extremities Take 1 [...] Active Rosuvastatin Calcium 10 MG Oral Tablet (Crestor)Indicatio ns:Type 1 diabetes mellitus with hemoglobin A1c goal of less than 7.0% ([facility]) TAKE ONE TABLET BY MOUTH IN THE MORNING 90 Tablet 10/24/2023 Active Zinc 25 MG Oral Tablet Take 3 Tablets by mouth in the morning and 3 Tablets before bedtime. Active clonazePAM 0.5 MG Oral Tablet (KlonoPIN)Indicati ons:JOB (generalized anxiety disorder) TAKE ONE TABLET BY MOUTH TWICE DAILY NEEDED FOR ANXIETY 60 Tablet 11/25/2023 Active Eliquis 5 MG Oral TabletIndications: Deep venous thrombosis (DVT) of left peroneal vein, unspecified chronicity (HCC) Take 1 Tablet by mouth in the morning and 1 Tablet before bedtime. 60 Tablet 12/05/2023 Active Amoxicillin-Pot Clavulanate 500-125 MG Oral Tablet (Augmentin) Take 1 Tablet by mouth in the morning and 1 Tablet before bedtime. Do all this for 7 days. 14 Tablet 12/10/2023 12/17/2023 Active Hospital, Clinic, or Other Facility Administered [...] as of this encounter (statuses as of 12/17/2023) Active Problems Problem Noted Date Diagnosed Date [...] as of this encounter (statuses as of 12/17/2023) Resolved Problems Problem Noted Date Diagnosed Date [...] as of this encounter (statuses as of 12/17/2023) Immunizations Name Administration Dates Next Due COVID-19 [...] 10/30/2023, 010 10/2023, 04/04/2023, Additional history exists GFR 11/04/2024 12/15/2023, 10/09, 10/28/2023, Additional history exists Lipid Panel 12/06/2024 12/07/2019, 10/28/2018 DTaP,Tdap,and Td Vaccines (3 - Td or [...] Priority Date/Time Associated Diagnosis Comments CHEMISTRY-OUTSIDE Routine 12/15/2023 documented in this encounter Results * (ABNORMAL) CHEMISTRY-OUTSIDE (12/15/2023) Not all results display below - see scan for full detail OUTSIDE LAB (SEE SCANNED REPORT) Comment:[facility] ED-GFR ,CMP,CBCD CREATININE-OUTSID E LAB 2.50(A) 0.70 - 1.30 MG/DL OUTSIDE LAB (SEE SCANNED REPORT) EGFR-OUTSIDE LAB 32(A) 60 ML/MIN OUT SIDE LAB (SEE SCANNED REPORT) POTASSIUM-OUTSIDE LAB 4.3 3.5 - 5.1 MMOL OUTSIDE LAB (SEE SCANNED REPORT) GLUCOSE-OUTSIDE LAB 107 70 - 110 MG/DL OUTSIDE LAB (SEE [...] LAB OUTSIDE LAB (SEE SCANNED REPORT) HEMOGLOBIN, [id number] LAB OUTSIDE LAB (SEE SCANNED REPORT) PHOSPHORUS-OUTSID E LAB OUTSIDE LAB (SEE SCANNED REPORT) PTH-OUTSIDE LAB OUTS ANÍBAL LAB (SEE SCANNED REPORT) MICROALBUMIN RATIO-OUTSIDE LAB OUTSIDE LA B (SEE SCANNED REPORT) PROTEIN, UA-OUTSIDE LAB OUTSIDE LAB (SEE SCANNED REPORT) HGB 11.9(A) 13.5 - 18 GM/DL OUTSIDE LAB (SEE SCANNED REPORT) 12/15/2023 History Per Patient LABORATORY OUTSIDE LAB (SEE SCANNED REPORT) documented in this encounter Advance Directives * Full Code (Latest Code Status on File) Date Activated Date Inactivated Comments 02/14/2019 10:34 PM 02/20/2019 3:48 PM This order r eflects the patients wishes and were consensually agreed upon. Question Answer Comments Discussion of Advance Directives occurred with: Not Discussed Care Teams Television Presenter Relationship Specialty Start Date End Date Ryan Leyva MD [address] [place] [address] PCP - General Family Medicine 07/17/22 documented as of this encounter
--- OUTSIDE RECORDS SUMMARY | 2024-01-28 02:43 | External Medical Summary | Summary of Care ---
Author Name Unknown Organization [facility] Address [address] [place] [address] Phone [phone] Care Team Providers Care Assembly Technician Name Role Phone Farida Do MD Primary Care Provider +1 [phone] Reason for Visit * Reason Comments eRx-Medication Refill Encounter Details Date Type Department Care Team (Late st Contact Info) Description 11/24/2023 Refill Family Practice [facility] [address] [place] [address] Farida Do MD [address] [place] [address] JOB (generalized anxiety disorder) Allergies Active Allergy Reactions Criticality Noted Date Comments Sulfamethoxazole Rash 06/05/2023 Trimethoprim Rash 06/05/2023 documented as of this encounter (statuses as of 11/25/2023) Medications Medication Sig Dispensed Refills Start Date [...] morning and 3 Tablets before bedtime. Active Eliquis 5 MG Oral TabletIndications :Deep venous thrombosis (DVT) of left peroneal vein, unspecified chronicity (HCC) Take 1 Tablet by mouth in the morning and 1 Tablet before bedtime. 60 Tablet 10/30/2023 4 Active clonazePAM 0.5 MG Oral Tablet (KlonoPIN)Indicat ions:JOB (generalized anxiety disorder) TAKE ONE TABLET BY MOUTH TWICE DAILY NEEDED FOR ANXIETY 60 Tablet 11/25/2023 Active clonazePAM 0.5 MG Oral Tablet (KlonoPIN)Indicat ions:JOB (generalized anxiety disorder) TAKE ONE TABLET BY MOUTH TWICE DAILY NEEDED FOR ANXIETY 60 Tablet 10/30/2023 4 Discontinued Hospital, Clinic, or Other Facility [...] as of this encounter (statuses as of 11/25/2023) Active Problems Problem Noted Date Diagnosed Date [...] as of this encounter (statuses as of 11/25/2023) Resolved Problems Problem Noted Date Diagnosed Date [...] as of this encounter (statuses as of 11/25/2023) Immunizations Name Administration Dates Next Due COVID-19 [...] Telephone Encounter - Farida Do MD - 11/25/2023 2:08 PM EDTSigned Prescriptions: Disp Refills clonazePAM 0.5 MG Oral Tablet (KlonoPIN) 60 Tab*0 Sig: TAKE ONE TABLET BY MOUTH TWICE DAILY NEEDED FOR ANXIETY Authorizing Provider: FARIDA DO * Telephone Encounter - Suzanne Duncan [facility] - 11/25/2023 1:40 PM EDTPending Prescriptions: Disp Refills clonazePAM 0.5 MG Oral Tablet [Pharmacy Me*60 Tab*0 Sig: TAKE ONE TABLET BY MOUTH TWICE DAILY NEEDED FOR ANXIETY * Telephone Encounter - Suzanne Duncan [facility] - 11/25/2023 1:39 PM EDT I have reviewed the patients controlled substance dispensing history in the Prescription Drug Monitoring Program in compliance with the [facility] regulations before prescribing a controlled substance. PDMP checked on 11/25/2023. Pending Prescriptions: Disp Refills clonazePAM 0.5 MG Oral Tablet (KlonoPIN) *60 Tab*0 Sig: TAKE ONE TABLET BY MOUTH TWICE DAILY NEEDED FOR ANXIETY Last Visit: 10/30/2023 (in office), 08/27/2023 (telemedicine) Next Visit: Visit date not found Date medication was last filled: 10/30/23 Date medication is due for refill: 11/28/23 Pharmacy: [id number] [address] [facility] Is this request for a controlled [...] REQUEST. Cutoff Concentration Please approve if appropriate. Suzanne Wilde Clinical Pharmacist [facility] ([facility]) [phone] 11/25/2023, 1:39 PM documented in this encounter Plan of [...] 10/30/2023, 01/0 10/2023, 04/04/2023, Additional history exists GFR 11/04/2024 11/05/2023, 10/09, 10/21/2023, Additional history exists Lipid Panel 12/06/2024 12/07/2019, [...] Directives occurred with: Not Discussed Care Teams Assembly Technician Relationship Specialty Start Date End Date Farida Do MD [address] [facility] [place] [address] PCP - General Family Medicine 07/17/22 documented as of this encounter
--- OUTSIDE RECORDS SUMMARY | 2024-01-28 02:43 | External Medical Summary | Summary of Care ---
Author Name Unknown Organization [facility] Address [address] [place] [address] Phone [phone] Care Team Providers Care Research Scientist Name Role Phone Ryan Leyva MD Primary Care Provider [phone] [phone] Encounter Details Date Type Department Care Team ([facility] st Contact Info) Description 11/05/2023 Result Scan Unspecified Department <No scans attached> Allergies Active Allergy Reactions Criticality Noted Date Comments Sulfamethoxazole Rash 06/05/2023 Trimethoprim Rash 06/05/2023 documented as of this encounter (statuses as of 11/12/2023) Medications Medication Sig Dispensed Refills Start Date [...] IN THE MORNING 90 Tablet 10/24/2023 Active clonazePAM 0.5 MG Oral Tablet (KlonoPIN)Indicati ons:JOB (generalized anxiety disorder) TAKE ONE TABLET BY MOUTH TWICE DAILY NEEDED FOR ANXIETY 60 Tablet 10/30/2023 Active Zinc 25 MG Oral Tablet Take 3 Tablets by mouth in the morning and 3 Tablets before bedtime. Active Eliquis 5 MG Oral TabletIndications: Deep venous thrombosis (DVT) of left peroneal vein, unspecified chronicity (HCC) Take 1 Tablet by mouth in the morning and 1 Tablet before bedtime. 60 Tablet 10/30/2023 11/29/2023 Active Hospital, Clinic, or Other Facility Administered [...] as of this encounter (statuses as of 11/12/2023) Active Problems Problem Noted Date Diagnosed Date [...] as of this encounter (statuses as of 11/12/2023) Resolved Problems Problem Noted Date Diagnosed Date [...] as of this encounter (statuses as of 11/12/2023) Immunizations Name Administration Dates Next Due COVID-19 [...] 05/01/2024 10/30/2023, 10/2023, 04/04/2023, Additional history exists GFR 11/04/2024 [...] Date/Time Associated Diagnosis Comments OUTSIDE LAB RESULTS 11/05/2023 documented in this encounter Results * OUTSIDE LAB RESULTS (11/05/2023) 11/05/2023 No Physician Data Unknown LABORATORY documented in this encounter Advance Directives * Full Code (Latest Code Status on File) Date Activated Date Inactivated Comments 02/14/2019 10:34 PM 02/20/2019 3:48 PM This order r eflects the patients wishes and were consensually agreed upon. Question Answer Comments Discussion of Advance Directives occurred with: Not Discussed Care Teams Research Scientist Relationship Specialty Start Date End Date Ryan Leyva MD [address] [place] [address] PCP - General Family Medicine 07/17/22 documented as of this encounter
--- OUTSIDE RECORDS SUMMARY | 2024-01-28 02:43 | External Medical Summary | Summary of Care ---
Author Name Unknown Organization [facility] Address [address] [place] [address] Phone [phone] Care Team Providers Care Scale Clerk Name Role Phone Ryan Leyva MD Primary Care Provider [phone] [phone] Reason for Visit * Reason Onset Date Comments Medication Refill 12/05/2023 Encounter Details Date Type Department Care Team (Late st Contact Info) Description 12/05/2023 Refill Family Practice [facility] [address] [place] [address] Audelia Steiner CRNP [address] [place] [address] Deep venous thrombosis (DVT) of left peroneal vein, unspecified chronicity (HCC) Allergies Active Allergy Reactions Criticality Noted Date Comments Sulfamethoxazole Rash 06/05/2023 Trimethoprim Rash 06/05/2023 documented as of this encounter (statuses as of 12/05/2023) Medications Medication Sig Dispensed Refills Start Date [...] A1c goal of less than 7.0% ([facility]) TAKE ONE TABLET BY MOUTH IN THE MORNING 90 Tablet 10/24/2023 Active Zinc 25 MG Oral Tablet Take 3 Tablets by mouth in the morning and 3 Tablets before bedtime. Active clonazePAM 0.5 MG Oral Tablet (KlonoPIN)Indicatio ns:JOB (generalized anxiety disorder) TAKE ONE TABLET BY MOUTH TWICE DAILY NEEDED FOR ANXIETY 60 Tablet 11/25/2023 Active Hospital, Clinic, or Other Facility Administered [...] as of this encounter (statuses as of 12/05/2023) Active Problems Problem Noted Date Diagnosed Date [...] as of this encounter (statuses as of 12/05/2023) Resolved Problems Problem Noted Date Diagnosed Date [...] as of this encounter (statuses as of 12/05/2023) Immunizations Name Administration Dates Next Due COVID-19 [...] encounter Miscellaneous Notes * Addendum Note - Inocencia Aponte MED ASSIST - 12/05/2023 10:19 AM EDTAddended by: INOCENCIA APONTE on: 12/05/2023 10:19 AM Modules accepted: Orders * Telephone Encounter - Inocencia Aponte MED ASSIST - 12/05/2023 10:19 AM EDT Pending Prescriptions: Disp Refills Eliquis 5 MG Oral Tablet 60 Tab*0 Sig: Take 1 Tablet by mouth in the morning and 1 Tablet before bedtime. Last Visit: 10/30/2023 (in office), 11/26/2023 (telemedicine) Next Visit: Visit date not found Last date the medication was ordered: Patient Active Problem List Diagnosis Stable proliferative [...] Diabetic Charcot foot (HCC) Necrolytic acral erythema Labs: Lab Results Component Value Date/Time CREATININE - [facility] 6.8 (H) 11/09/2020 07:42 AM CREATININE - [facility] 7.4 (H) 12/07/2019 12:02 PM CREATININE, RANDOM URINE - [facility] 41 12/07/2019 11:47 AM CREATININE-OUTSIDE LAB 0.89 11/05/2023 12:00 AM CREATININE-OUTSIDE LAB 1.07 11/01/2021 10:22 AM Lab Results Component Value Date/Time POTASSIUM - [facility] 4.0 11/09/2020 07:42 AM POTASSIUM - [facility] 4.4 12/07/2019 12:02 PM POTASSIUM-OUTSIDE LAB 5.5 (A) 11/05/2023 12:00 AM POTASSIUM-OUTSIDE LAB 4.6 11/01/2021 10:22 [...] Component Value Date/Time HEMOGLOBIN A1C - [facility] 5.3 10/30/2023 09:27 AM HEMOGLOBIN A1C - [facility] 7.1 (H) 11/09/2020 07:43 AM HEMOGLOBIN A1C - [facility] 8.0 (H) 12/07/2019 12:02 PM HEMOGLOBIN A1C - [facility] 13.8 (H) 02/14/2019 02:56 PM HEMOGLOBIN A1C - [facility] 14.0 (H) 10/28/2018 02:56 PM * Telephone Encounter - Salina Starr PHARM Tech - 12/05/2023 10:14 AM EDT Pharmacy requesting refills for Eliquis 5mg. Upon chart review, medication is listed as as of 11/29/23 . Please advise if you wish to continue this therapy for the patient. Thank you, Salina Starr, Insulation Machine Operator [facility] Services ([facility]) 12/05/2023,10:15 AM documented in this encounter Plan of [...] 10/30/2023, 0 10/2023, 04/04/2023, Additional history exists GFR 11/04/2024 11/05/2023, 05/2 , 10/21/2023, Additional history exists Lipid Panel 12/06/2024 [...] of left peroneal vein, unspecified chronicity (HCC) documented in this encounter Advance Directives * Full Code (Latest Code Status on File) Date Activated Date Inactivated Comments 02/14/2019 10:34 PM 02/20/2019 3:48 PM This order r eflects the patients wishes and were consensually agreed upon. Question Answer Comments Discussion of Advance Directives occurred with: Not Discussed Care Teams Scale Clerk Relationship Specialty Start Date End Date Ryan Leyva MD [address] [place] [address] PCP - General Family Medicine 07/17/22 documented as of this encounter
--- OUTSIDE RECORDS SUMMARY | 2024-01-28 02:43 | External Medical Summary | Summary of Care ---
Author Name Unknown Organization [facility] Address [address] [place] [address] Phone [phone] Care Team Providers Care Commercial Loan Reviewer Name Role Phone Ryan Leyva MD Primary Care Provider [phone] [phone] Reason for Visit * Reason Onset Date Comments Advice 11/26/2023 Encounter Details Date Type Department Care Team ([facility] st Contact Info) Description 11/26/2023 Telephone Family Practice [facility] [email or web address] [facility] [place] [address] Ryan Leyva MD [email or web address] [facility] [place] [address] Advice Allergies Active Allergy Reactions Criticality Noted Date Comments Sulfamethoxazole Rash 06/05/2023 Trimethoprim Rash 06/05/2023 documented as of this encounter (statuses as of 11/26/2023) Medications Medication Sig Dispensed Refills Start Date [...] before bedtime. 60 Tablet 10/30/2023 11/29/2023 Active clonazePAM 0.5 MG Oral Tablet (KlonoPIN)Indicati [...] as of this encounter (statuses as of 11/26/2023) Active Problems Problem Noted Date Diagnosed Date [...] as of this encounter (statuses as of 11/26/2023) Resolved Problems Problem Noted Date Diagnosed Date [...] as of this encounter (statuses as of 11/26/2023) Immunizations Name Administration Dates Next Due COVID-19 [...] Telephone Encounter - Tonie Rodriguez LPN - 11/26/2023 11:59 AM EDT Pt had video appt today with Dr. Liu to address * Telephone Encounter - Kathy Avila LPN - 11/26/2023 10:04 AM EDT See MyG message from today 11/26/23 * Telephone Encounter - Nadja More OSA - 11/26/2023 10:01 AM EDT Reason for patient's call: was asking to speak to a nurse Caller was transferred to Kathy at the nurse line. documented in this [...] Directives occurred with: Not Discussed Care Teams Commercial Loan Reviewer Relationship Specialty Start Date End Date Ryan Leyva MD [address] [place] [address] PCP - General Family Medicine 07/17/22 documented as of this encounter
--- OUTSIDE RECORDS SUMMARY | 2024-01-28 02:43 | External Medical Summary | Summary of Care ---
Author Name Unknown Organization [facility] Address [address] [place] [address] Phone [phone] Care Team Providers Care Slitter And Cutter Operator Name Role Phone Ryan Leyva MD Primary Care Provider [phone] [phone] Reason for Visit * Reason Comments Acute Encounter Details Date Type Department Care Team (Late st Contact Info) Description 12/10/2023 2:20 PM EDT Telemedicine Family Practice [facility] [address] [place] [address] Oneal Verdin MD [address] [place] [address] Upper respiratory tract infection, unspecified type* Allergies Active Allergy Reactions Criticality Noted Date Comments Sulfamethoxazole Rash 06/05/2023 Trimethoprim Rash 06/05/2023 documented as of this encounter (statuses as of 12/10/2023) Medications Medication Sig Dispensed Refills Start Date [...] of less than 7.0% ([facility]) TAKE ONE TABLET BY MOUTH IN THE [...] as of this encounter (statuses as of 12/10/2023) Active Problems Problem Noted Date Diagnosed Date [...] as of this encounter (statuses as of 12/10/2023) Resolved Problems Problem Noted Date Diagnosed Date [...] as of this encounter (statuses as of 12/10/2023) Immunizations Name Administration Dates Next Due COVID-19 [...] as of this encounter Progress Notes * Oneal Verdin MD - 12/10/2023 2:38 PM EDT Images from the original note were not included. History of Present Illness Bernard Jones is a 38 year old male that presents for telemedicine visit for complaints of persistent URI sx and sinus pressure. Trouble breathing out of both nostrils. Took a zpak and steroids and felt better while on them but worse again after done. Consents to TM visit. Having some internet connection issues. Physical Exam There were no vitals taken for this visit. TM I have reviewed most recent labs None Assessment and Plan Upper respiratory tract infection, unspecified type - augmentin 500-125mg BID x 7 days. Sinus rinse, nasal saline. If no better needs to be seen in office as he is high risk as transplant patient/immunosuppresed. He voiced understanding. All questionsanswered. Wrap-Up prn Time: I spent a total of 10-19 minutes (exact time 14 mins) on the date of service in preparation, delivery, and documentation of the care provided to Bernard Jones excluding any time spent in the performance of separately billed services. documented in this encounter Plan of Treatment [...] as of this encounter Visit Diagnoses Diagnosis Upper respiratory tract infection, unspecified type- Primary documented in this encounter Advance Directives * Full Code (Latest Code Status on File) Date Activated Date Inactivated Comments 02/14/2019 10:34 PM 02/20/2019 3:48 PM This order r eflects the patients wishes and were consensually agreed upon. Question Answer Comments Discussion of Advance Directives occurred with: Not Discussed Care Teams Slitter And Cutter Operator Relationship Specialty Start Date End Date Ryan Leyva MD [address] [address] PCP - General Family Medicine 07/17/22 documented as of this encounter
--- OUTSIDE RECORDS SUMMARY | 2024-01-28 02:43 | External Medical Summary | Summary of Care ---
Author Name Unknown Organization [facility] Address [address] [place] [address] Phone [phone] Care Team Providers Care Gasoline Service Attendant Name Role Phone Ryan Leyva MD Primary Care Provider [phone] [phone] Reason for Visit * Reason Comments Acute Encounter Details Date Type Department Care Team (Late st Contact Info) Description 11/26/2023 11:20 AM EDT Telemedicine Family Practice [facility] [address] [place] [address] Su Panda, [address] [place] [address] URI with cough and congestion* Allergies Active Allergy Reactions Criticality Noted Date [...] NEEDED FOR ANXIETY 60 Tablet 11/25/2023 Active Azithromycin 250 MG Oral Tablet (Zithromax)Indicat ions:URI with cough and congestion Take 2 tabs by mouth on the first day, then 1 tab daily on days two through five 6 Tablet 11/26/2023 12/01/2023 Active predniSONE 20 MG Oral Tablet (Deltasone)Indicat ions:URI with cough and congestion Take 1 Tablet by mouth in the morning for 5 days. 5 Tablet 11/26/2023 12/01/2023 Active Hospital, Clinic, or Other Facility Administered [...] as of this encounter Progress Notes * Su Panda, - 11/26/2023 11:19 AM EDT Subjective: Bernard Jones is a 38 year old male. Chief Complaint Patient presents with Acute There are no exam notes on file for this visit. HPI: This is a 38 year old male with PMHx as below presents for televideo phone visit. After connecting through televideo, patient was verified with two unique identifiers. Patient (or authorized legal insurance service representative) was then informed that this was a Telemedicine visit and that the exam was being conducted confidentially over secure lines. My office door was closed. No one else was in the room with me. Patient acknowledged consent and understanding of privacy and security of the Telemedicine visit, and gave permission to have a telemedicine presenter stay in the room in order toassist with the history and to conduct the exam as needed. I informed the patient that I have reviewed their record in [employer] and presented the opportunity for them to ask any questions regarding the visit today. The patient agreed to participate. Patient location: HOME. I was in a hospital or clinic location. After connecting through [employer],patient was verified with two unique identifiers. Patient (or authorized legal insurance service representative) was then informed that this was a Telemedicine visit and being conducted confidentially over secure lines. Methods to assure confidentiality were taken. Patient acknowledged consent and understanding of pr ivacy and security of the Telemedicine visit. The patient agreed to participate. Chest cold Nasal congestion Sx 2 days No fevers Plan: advised on sx tx - pt declined and states he needs zpack and steroid. Meds sent. Advised to contact pcp if sx do not improve. Health Maintenance Due Topic Date Due Pneumococcal Vaccine: Pediatrics (0 to 5 Years) and At-Risk Patients (6 to 64 Years) (1 of 2 - PCV)Never done Depression Screening Never done Albumin/Creatinine Ratio Never done Diabetic Foot Exam Never done Hepatitis B (1 of 3 - 19+ 3-dose series) Never done COVID-19 Vaccine (3 - Moderna risk series) 09/06/2020 Diabetic Eye Exam 12/18/2023 Patient Active Problem List Diagnosis Stable proliferative [...] bedtime. Tacrolimus 1 MG Oral Capsule (Prograf) 2 [...] Capsule in the evening. 90 Capsule 1 oxyCODONE HCl 10 MG Oral Tablet (Roxicodone) Take 1 Tablet by mouth 2 times a day as needed. Tamsulosin HCl 0.4 MG Oral Capsule (Flomax) Take 1 Capsule by mouth in the morning. ceFAZolin IV IV (AMBULATORY) Administer intravenously. Through IV Pump Rosuvastatin Calcium 10 MG Oral Tablet (Crestor) TAKE ONE TABLET BY MOUTH IN THE MORNING 90 Tablet 0 Zinc 25 MG Oral Tablet Take 3 Tablets by mouth in the morning and 3 Tablets before bedtime. Eliquis 5 MG Oral Tablet Take 1 Tablet by mouth in the morning and 1 Tablet before bedtime. 60 Tablet 0 clonazePAM 0.5 MG Oral Tablet (KlonoPIN) TAKE ONE TABLET BY MOUTH TWICE DAILY NEEDED FOR [id number] Tablet 0 Current Facility-Administered Medications Medication Dose Route Frequency Provider Last Rate Last Admin bevaCIZumab (Avastin) inj 1.25 mg 1.25 mg Intravitreal PRN Burton Nayak, DO 1.25 mg at 10/31/23 0914 ROPivacaine (Naropin) inj 1.5 mg 1.5 mg Perineural PRN Burton Nayak, DO 1.5 mg at 913 Past Medical History: Diagnosis Date Diabetic Charcot foot (HCC) 04/19/2023 ESRD (end stage renal disease) (HCC) 12/16/2017 JOB (generalized anxiety disorder) 10/28/2022 Hepatitis C 2016 unknown if treated History of drug abuse (HCC) 10/30/2022 IVDA History of type 1 diabetes mellitus 01/14/2023 Hypertension Kidney replaced by transplant 07/16/2022 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 NPDR (nonproliferative diabetic retinopathy) (HCC) 09/05/2016 Dr Nayak Overweight (BMI 25.0-29.9) 01/12/2023 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 ([facility]) 07/16/2022 Type 1 diabetes mellitus ([facility]) 1991 Venous stasis of both lower extremities 01/14/2023 Past Surgical History: Procedure Laterality Date HC REPOSITION PERITONEAL DIALYSIS CATH INJECTION OF EYE DRUG Left 07/24/2016 # 1 Avastin OS, INJECTION OF EYE DRUG Right 08/17/2016 # 1 Avastin OD, INJECTION OF EYE DRUG Left 09/05/2016 # 2 Avastin OS, Dr Nayak INJECTION OF EYE DRUG Right 11/22/2016 # 2 Avastin OD, Dr Nayak INJECTION OF EYE DRUG Left 02/21/2017 # 3 Avastin OS, INJECTION OF EYE DRUG Right 04/19/2017 # 3 Avastin OD, INJECTION OF EYE DRUG Right 08/08/2017 # 4 Avastin OD, Dr. Nayak INJECTION OF EYE DRUG Right 12/05/2017 # 5 Avastin OD, INJECTION OF EYE DRUG Right 05/22/2018 # 6 Avastin OD, Dr. Nayak INJECTION OF EYE DRUG Left 07/08/2018 # 4 Avastin OS, Dr. Nayak INJECTION OF EYE DRUG Right 10/09/2018 # 7 Avastin OD, INJECTION OF EYE DRUG Left 03/18/2019 # 5 Avastin OS, INJECTION OF EYE DRUG Right 03/31/2019 # 8 Avastin OD, Dr. Nayak INJECTION OF EYE DRUG Left 06/02/2019 # 6 Avastin OS, Dr. Nayak INJECTION OF EYE DRUG Left 08/07/2019 # 7 Avastin OS, Dr. Blunt INJECTION OF EYE DRUG Right 12/15/2019 # 9 Avastin OD, Dr. Nayak INJECTION OF EYE DRUG Left 03/16/2020 # 8 Avastin OS, Dr. Nayak INJECTION OF EYE DRUG Right 07/01/2020 # 10 Avastin OD, Dr. Blunt INJECTION OF EYE DRUG Left 06/29/2022 #9 Avatin OS Elda INJECTION OF EYE DRUG Left 08/10/2022 # 10 Avastin OS, Dr. Nayak INJECTION OF EYE DRUG Right 08/23/2022 # 11 Avastin OD; Dr Nayak INJECTION OF EYE DRUG Right 12/17/2022 # 12 Avastin OD, Dr. Nayak INJECTION OF EYE DRUG Left 04/09/2023 # 11 Avastin OS, Dr. Nayak INJECTION OF EYE DRUG Right 06/21/2023 # 13 Avastin OD, Dr. Nayak INJECTION OF EYE DRUG Right 10/03/2023 # 14 Avastin OD, Dr. Nayak INJECTION OF EYE DRUG Left 10/31/2023 # [address] Nayak LASER TRABECULOPLASTY Right 09/10/2016 PRP of the [...] ([facility] ONLY) ACT 112 SIGNED 08/07/2019, DR. BLUNT MISCELLANEOUS ORDER ([facility] ONLY) Bilateral 12/15/2019-12/14/2020 AVASTIN OU CONSENT SIGNED, DR. NAYAK OTHER (INFORMATION) Bilateral AVASTIN OU CONSENT DR. NUÑEZ EXP. 02/02/22 OTHER (INFORMATION) AVASTIN OU CONSENT SIGNED Dr. Nayak/Jose Raul (exp 06-29-23) OTHER (INFORMATION) Bilateral AVASTIN OU CONSENT DR. NAYAK/JOSE RAUL EXP. 06/21/24 PANCREAS SURGERY PROCEDURE NEC 2020 Pancreatic Transplant PARTIAL REMOVAL OF EYE FLUID Right 05/26/2018 S/P 23G PPV/MP/seg/EL for PDR/TRD/VH/ERM OD REMOVAL OF TONSILS, UNDER AGE 12 SURGICAL REMOVAL, ERUPTED TOOTH AND BONE SURGICAL REMOVAL, ERUPTED TOOTH AND BONE 01/2017 Review of patient's allergies indicates: Allergen Reactions Sulfamethoxazole Rash Trimethoprim Rash Family History Problem Relation Name Age of Onset Hypertension Father Lung cancer Father Hypertension Brother Maxi Diabetes Grandmother (Maternal) Diabetes Grandfather (Maternal) Diabetes Grandmother (Paternal) Diabetes Grandfather (Paternal) Cancer None Eye Problems None Denies family fx of AMD, RD, glaucoma, or blindness Heart Disorder None Stroke None Thyroid Disorder None Other (Other- from urosepsis) Mother No Known Problems Sister No Known Problems Brother Sergio Family Status Relation Status Fa Alive Bro Alive MGMA MGFA PGMA PGFA NONE (Not Specified) Mo Sis Alive Bro Alive Social History Socioeconomic History Marital status: Single Spouse name: Not on file Number of children: 1 Years of education: Not on file Highest education level: Not on file Occupational History Occupation: disability Tobacco Use Smoking status: Former Types: Vaporizer Smokeless tobacco: Current Types: Snuff Tobacco comments: 12/07/19-quit 2 yrs ago Vaping Use Vaping status: Never Used Substance and Sexual Activity Alcohol use: No Drug use: No Sexual activity: Not Currently Partners: Female Other Topics Concern Not on file Social History Narrative Not on file Social Determinants of Health Financial Resource Strain: Not on file Food Insecurity: Not on file Transportation Needs: Not on file Social Connections: Unknown (11/26/2023) Social Connections How often do you feel lonely or isolated from those around you? (Adult - for ages 18 years and over): Not on file Housing Stability: Not on file Review of Systems: As per HPI all other ROS negative. Wt Readings from Last 3 Encounters: 10/30/22 91.5 kg (201 lb 11.2 oz) 07/17/22 88.1 kg (194 lb 2 oz) 01/10/21 79.2 kg (174 lb 11.2 oz) Results for orders placed or performed in visit on 11/08/23 CHEMISTRY-OUTSIDE Result Value Ref Range Not all results display below - see scan for full detail CREATININE-OUTSIDE LAB 0.89 0.70 - 1.30 MG/DL EGFR-OUTSIDE LAB >90 >=60 ML/MIN/1.73M2 POTASSIUM-OUTSIDE LAB 5.5 (A) 3.5 - 5.1 MMOL/L GLUCOSE-OUTSIDE LAB 82 70 - 110 MG/DL HOURS FASTING TRIGLYCERIDES-OUTSIDE LAB CHOLESTEROL-OUTSIDE LAB HDL-OUTSIDE LAB CHOL/HDL RATIO-OUTSIDE LAB LDL (CALCULATED)-OUTSIDE LAB LDL (DIRECT MEASURE)-OUTSIDE LAB HEMOGLOBIN, [id number] LAB PHOSPHORUS-OUTSIDE LAB 4.4 2.5 - 4.9 MG/DL PTH-OUTSIDE LAB MICROALBUMIN RATIO-OUTSIDE LAB PROTEIN, UA-OUTSIDE LAB HGB 12.4 (A) 13.5 - 18.0 GM/DL OBJECTIVE: Physical Exam: Not done There are no diagnoses linked to this encounter. Follow Up: Return if symptoms worsen or fail to improve. Su Panda DO documented in this encounter Plan of Treatment [...] as of this encounter Visit Diagnoses Diagnosis URI with cough and congestion- Primary documented in this encounter Advance Directives * Full Code (Latest Code Status on File) Date Activated Date Inactivated Comments 02/14/2019 10:34 PM 02/20/2019 3:48 PM This order r eflects the patients wishes and were consensually agreed upon. Question Answer Comments Discussion of Advance Directives occurred with: Not Discussed Care Teams Gasoline Service Attendant Relationship Specialty Start Date End Date Ryan Leyva MD [address] [facility] [place] [address] PCP - General Family Medicine 07/17/22 documented as of this encounter
--- OUTSIDE RECORDS SUMMARY | 2024-01-28 02:43 | External Medical Summary | Summary of Care ---
Author Name Unknown Organization [facility] Address [address] [place] [address] Phone [phone] Care Team Providers Care Car Hopper Name Role Phone Ryan Leyva MD Primary Care Provider [phone] [phone] Reason for Visit * Reason Onset Date Comments Medication Refill 12/05/2023 Encounter Details Date Type Department Care Team (Late st Contact Info) Description 12/05/2023 Refill Family Practice [facility] [address] [place] [address] Audelia Steiner CRNP [address] [place] [address] Deep venous thrombosis (DVT) of left peroneal [...] hemoglobin A1c goal of less than 7.0% ([facility]) TAKE ONE TABLET BY MOUTH [...] for the patient. Thank you, Salina Starr, Travel Ticketing Reviewer [facility] 12/05/2023,10:15 AM [...] Directives occurred with: Not Discussed Care Teams Car Hopper Relationship Specialty Start Date End Date Ryan Leyva MD [address] [place] [address] PCP - General Family Medicine 07/17/22 documented as of this encounter
--- OUTSIDE RECORDS SUMMARY | 2024-01-28 02:43 | External Medical Summary | Summary of Care ---
Author Name Unknown Organization [facility] Address [address] [place] [address] Phone [phone] Care Team Providers Care Biodiesel Plant Superintendent Name Role Phone Ryan Leyva MD Primary Care Provider +1 -[phone] Reason for Visit * Reason Onset Date Comments Information 11/12/2023 Encounter Details Date Type Department Care Team (Late st Contact Info) Description 11/12/2023 Telephone Family Practice [facility] [address] [facility] [address] Ryan Leyva MD [address] [place] [address] Information Allergies Active Allergy Reactions Criticality Noted Date [...] encounter Miscellaneous Notes * Telephone Encounter - Douglas Rich RN - 11/12/2023 8:02 AM EDT Received fax from [facility] stating that they received signed forms for power wheelchair, but need last [id number] office notes. Office note from 10/30/2023 faxed to [facility] at [phone] with confirmation. documented in this encounter Plan of Treatment [...] 04/04/2023, Additional history exists GFR 11/04/2024 11/05/2023, 052 , 10/21/2023, Additional history exists Lipid Panel [...] Directives occurred with: Not Discussed Care Teams Biodiesel Plant Superintendent Relationship Specialty Start Date End Date Ryan Leyva MD [address] [place] [address] PCP - General Family Medicine 07/17/22 documented as of this encounter
--- OUTSIDE RECORDS SUMMARY | 2024-01-28 02:43 | External Medical Summary | Summary of Care ---
Author Name Unknown Organization [facility] Address [address] [place] [address] Phone [phone] Care Team Providers Care Rehabilitation Case Coordinator Name Role Phone Ryan Leyva MD Primary Care Provider +1 -[phone] Reason for Visit * Reason Onset Date Comments Advice 11/26/2023 Encounter Details Date Type Department Care Team ([facility] st Contact Info) Description 11/26/2023 Telephone Family Practice [facility] [address] [facility] [place] [address] Ryan Leyva MD [address] [facility] [place] [address] Advice Allergies Active Allergy Reactions Criticality Noted [...] encounter Miscellaneous Notes * Telephone Encounter - Kathy Avila LPN - 11/26/2023 10:04 AM EDT See MyG message from today 11/26/23 * Telephone Encounter - Nadja More OSA - 11/26/2023 10:01 AM EDT Reason for patient's call: was asking to speak to a nurse Caller was transferred to Kahty at the nurse line. documented in this encounter Plan of Treatment Upcoming Encounters Date Type Department Care Team (Late st Contact Info) Description 11/26/2023 11:20 AM EDT Telemedicine Family Practice [facility] [address] [place] [address] Su Liu DO [address] [place] [address] Health Maintenance Due Date Last Done Comments [...] Directives occurred with: Not Discussed Care Teams Rehabilitation Case Coordinator Relationship Specialty Start Date End Date Ryan Leyva MD [address] [facility] [place] [address] PCP - General Family Medicine 07/17/22 documented as of this encounter
--- OUTSIDE RECORDS SUMMARY | 2024-01-28 02:43 | External Medical Summary | Summary of Care ---
Author Name Unknown Organization [facility] Address [address] [place] [address] Phone [phone] Care Team Providers Care Retail Pharmacy Merchandiser Name Role Phone Ryan Leyva MD Primary Care Provider +1 -[phone] Encounter Details Date Type Department Care Team (Late st Contact Info) Description 11/08/2023 Orders Only Family [facility] [address] [place] [address] Ryan Leyva MD [address] [place] [address] Allergies Active Allergy Reactions Criticality Noted Date Comments Sulfamethoxazole Rash 06/05/2023 Trimethoprim Rash 06/05/2023 documented as of this encounter (statuses as of 11/08/2023) Medications Medication Sig Dispensed Refills Start Date [...] as of this encounter (statuses as of 11/08/2023) Active Problems Problem Noted Date Diagnosed Date [...] as of this encounter (statuses as of 11/08/2023) Resolved Problems Problem Noted Date Diagnosed Date [...] as of this encounter (statuses as of 11/08/2023) Immunizations Name Administration Dates Next Due COVID-19 [...] 10/30/2023, 10/2023, 04/04/2023, Additional history exists GFR 10/27/2024 11/05/2023, 05/, 10/21/2023, Additional history exists Lipid Panel 12/06/2024 [...] Priority Date/Time Associated Diagnosis Comments CHEMISTRY-OUTSIDE Routine 11/05/2023 documented in this encounter Results * (ABNORMAL) CHEMISTRY-OUTSIDE (11/05/2023) Not all results display below - see scan for full detail OUTSIDE LAB (SEE SCANNED REPORT) Comment:SCAN INCLUDES: CBCD, EGFR, AMYLASE LVL, LIPASE LVL, MG, RENAL FUNCTION, TACROLIMUS LVL CREATININE-OUTSID E LAB 0.89 0.70 - 1.30 MG/DL OUTSIDE LAB (SEE SCANNED REPORT) EGFR-OUTSIDE LAB >90 >=60 ML/MIN/1.7 3M2 OUTSIDE LAB (SEE SCANNED REPORT) POTASSIUM-OUTSIDE LAB 5.5(A) 3.5 - 5.1 MMOL/L OUTSIDE LAB (SEE SCANNED REPORT) GLUCOSE-OUTSIDE LAB 82 70 - 110 MG/DL OUTSIDE LAB (SEE [...] LAB OUTSIDE LAB (SEE SCANNED REPORT) HEMOGLOBIN, [id number] LAB OUTSIDE LAB (SEE SCANNED REPORT) PHOSPHORUS-OUTSID E LAB 4.4 2.5 - 4.9 MG/DL OUTSIDE LAB (SEE SCANNED REPORT) PTH-OUTSIDE LAB OUTS ANÍBAL LAB (SEE SCANNED REPORT) MICROALBUMIN RATIO-OUTSIDE LAB OUTSIDE LA B (SEE SCANNED REPORT) PROTEIN, UA-OUTSIDE LAB OUTSIDE LAB (SEE SCANNED REPORT) HGB 12.4(A) 13.5 - 18.0 GM/DL OUTSIDE LAB (SEE SCANNED REPORT) 11/05/2023 History Per Patient LABORATORY OUTSIDE LAB (SEE SCANNED REPORT) documented in this encounter Advance Directives * Full Code (Latest Code Status on File) Date Activated Date Inactivated Comments 02/14/2019 10:34 PM 02/20/2019 3:48 PM This order r eflects the patients wishes and were consensually agreed upon. Question Answer Comments Discussion of Advance Directives occurred with: Not Discussed Care Teams Retail Pharmacy Merchandiser Relationship Specialty Start Date End Date Ryan Leyva MD [address] [place] [address] PCP - General Family Medicine 07/17/22 documented as of this encounter
--- OUTSIDE RECORDS SUMMARY | 2024-01-28 02:43 | External Medical Summary | Summary of Care ---
Author Name Unknown Organization [facility] Address [address] [place] [address] Phone [phone] Care Team Providers Care Equine Manager Name Role Phone Ryan Leyva MD Primary Care Provider [phone] Encounter Details Date Type Department Care Team ([facility] st Contact Info) Description 12/15/2023 Result Scan Unspecified Department <No scans attached> Allergies Active Allergy Reactions Criticality Noted Date Comments Sulfamethoxazole Rash 06/05/2023 Trimethoprim Rash 06/05/2023 documented as of this encounter (statuses as of 12/16/2023) Medications Medication Sig Dispensed Refills Start Date [...] as of this encounter (statuses as of 12/16/2023) Active Problems Problem Noted Date Diagnosed Date [...] as of this encounter (statuses as of 12/16/2023) Resolved Problems Problem Noted Date Diagnosed Date [...] as of this encounter (statuses as of 12/16/2023) Immunizations Name Administration Dates Next Due COVID-19 [...] 04/04/2023, Additional history exists GFR 11/04/2024 11/05/2023, 05, 10/21/2023, Additional history exists Lipid Panel 12/06/2024 [...] Date/Time Associated Diagnosis Comments RADIOLOGY SCANNED RESULT 12/15/2023 documented in this encounter Results * RADIOLOGY SCANNED RESULT (12/15/2023) 12/15/2023 No Physician Data Unknown DIAGNOSTIC RAD IOLOGY SERVICES documented in this encounter Advance Directives * [...] Date Ryan Leyva MD [address] [facility] [place] [address] PCP - General Family Medicine 07/17/22 documented as of this encounter
--- OUTSIDE RECORDS SUMMARY | 2024-01-28 02:44 | External Medical Summary | Summary of Care ---
Author Name Unknown Organization [facility] Address [address] [place] [address] Phone [phone] Care Team Providers Care Upstream Biomanufacturing Technician Name Role Phone Ryan Leyva MD Primary Care Provider [phone] [phone] Reason for Visit * Reason Comments Hospital Follow-Up Cellulitis of left f oot Encounter Details Date Type Department Care Team ([facility] st Contact Info) Description 10/30/2023 8:40 AM EDT Office Visit [facility] [address] [place] [address] Audelia Steiner CRNP [address] [place] [address] Type 1 diabetes mellitus with hemoglobin A1c goal of less than 7.0% ([facility])*; Diabetic Charcot foot ([facility]); 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 ([facility]); Cellulitis of left lower extremity; Kidney replaced by transplant; Deep venous thrombosis (DVT) of left peroneal vein, unspecified chronicity ([facility]); History of drug abuse ([facility]); 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[facility]); JOB (generalized anxiety disorder) Allergies Active Allergy Reactions Criticality Noted Date Comments Sulfamethoxazole Rash 06/05/2023 Trimethoprim Rash 06/05/2023 documented as of this encounter (statuses as of 10/30/2023) Medications Medication Sig Dispensed Refills Start Date [...] till better 45 g 1 05/21/2023 Active Additional Information Patient not taking.Reported on 10/30/2023 Clotrimazole-Beta methasone 1-0.05 % External Cream (Lotrisone) 05/25/2023 Active Silvadene 1 % External Cream Apply topically to affected area daily. 50 g 2 05/31/2023 Active Additional Information Patient not taking.Reported on 10/30/2023 Zinc 220 (50 Zn) MG Oral Capsule [...] 10/24/2023 Active clonazePAM 0.5 MG Oral Tablet (KlonoPIN)Indicat [...] before bedtime. 60 Tablet 10/30/2023 4 Active Eliquis 5 MG Oral Tablet Take 1 Tablet by mouth in the morning and 1 Tablet before bedtime. 09/26/2023 Discontinue d(Refill) Hospital, Clinic, or Other Facility [...] as of this encounter (statuses as of 10/30/2023) Active Problems Problem Noted Date Diagnosed Date [...] as of this encounter (statuses as of 10/30/2023) Resolved Problems Problem Noted Date Diagnosed Date [...] as of this encounter (statuses as of 10/30/2023) Immunizations Name Administration Dates Next Due COVID-19 [...] Tobacco: Former Vaporizer Smokeless Tobacco: Current Snuff Tobacco Cessation:Ready to Q uit: Yes; Counseling Given: No Comments:12/07/19-quit 2 yrs ago Alcohol Use Standard [...] Sign Reading Time Taken Comments Blood Pressure 114/52 10/30/2023 8:35 AM EDT Pulse 80 10/30/2023 8:35 AM EDT Temperature 37.3 C (99.1 F) 10/30/2023 8:35 AM ED T Respiratory Rate 16 10/30/2023 8:35 AM EDT Oxygen Saturation - - Inhaled Oxygen Concentration - - Weight - - Height - - Body Mass Index - - documented in this encounter Functional Status Functional Status Response Date of Assess ment Does this person have seriou s difficulty walking or climbing stairs? Yes 10/28/2018 documented as of this encounter Progress Notes * Audelia Steiner CRNP - 10/30/2023 8:43 AM EDT Images from the original note were not included. Follow up Family Medicine Visit History of Present Illness Bernard Jones is a 38 year old male with complex PMH of type 1 DM s/p pancreas transplant, s/p kidney transplant, hep C infection, hx of drug abuse on methadone listed below presenting with recheck A1C. Scheduled for 20 min recheck only, hasn't had hospital f/u since beginning of September 2023. Left foot cellulitis currently on cefazolin IV pump, getting it out next week. F/u wound care, Homehealth nurse comes in once a week. Home health nurse called in for DM -- per pt, his sugar levels are well controlled, less than 100. [facility] 09/18/23-09/19/23 left lower cellulitis and DVT Was to told to be on Eliquis for 3 months, managed by nephrology. Requesting another month of supply. 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 cShroeder INJECTION OF EYE DRUG Left 06/02/2019 # 6 Avastin OS, Dr. Schroeder INJECTION OF EYE DRUG Left 08/07/2019 # 7 Avastin OS, Dr. Dorsey INJECTION OF EYE DRUG Right 12/15/2019 # 9 Avastin OD, Dr. Schroeder INJECTION OF EYE DRUG Left 03/16/2020 # 8 Avastin OS, Dr. Schroeder INJECTION OF EYE DRUG Right 07/01/2020 # 10 Avastin OD, Dr. Dorsye INJECTION OF EYE DRUG Left 06/29/2022 #9 Avatin OS Elda INJECTION OF EYE DRUG Left 08/10/2022 # 10 Avastin OS, Dr. Schroeder INJECTION OF EYE DRUG Right 08/23/2022 # 11 Avastin OD; Dr Schroeder INJECTION OF EYE DRUG Right 12/17/2022 # 12 Avastin OD, Dr. Schroeder INJECTION OF EYE DRUG Left 04/09/2023 # 10 Avastin OS, Dr. Schroeder INJECTION OF EYE DRUG Right 06/21/2023 # 13 Avastin OD, Dr. Schroeder INJECTION OF EYE DRUG Right 10/03/2023 # 14 Avastin OD, Dr. Schroeder LASER TRABECULOPLASTY Right [...] Bilateral 08/07/2019-08/07/2020 AVASTIN OU CONSENT SIGNED, DR. JOSE RAUL CHOWDARY ORDER ([facility] ONLY) ACT 112 SIGNED 08/07/2019, DR. JOSE RAUL CASTROCELLANEOUS ORDER ([facility] ONLY) Bilateral 12/15/2019-12/14/2020 AVASTIN OU CONSENT SIGNED, DR. SCHROEDER OTHER (INFORMATION) Bilateral AVASTIN OU CONSENT DR. NUÑEZ EXP. 02/02/22 OTHER (INFORMATION) AVASTIN OU CONSENT SIGNED Dr. Schroeder/Jose Raul (exp 06-29-23) OTHER (INFORMATION) Bilateral AVASTIN OU CONSENT DR. SCHROEDER/JOSE RAUL EXP. 06/21/24 PANCREAS SURGERY PROCEDURE NEC 2020 Pancreatic Transplant PARTIAL REMOVAL OF EYE FLUID Right 05/26/2018 S/P 23G PPV/MP/seg/EL for PDR/TRD/VH/ERM OD REMOVAL OF TONSILS, UNDER AGE 12 SURGICAL REMOVAL, ERUPTED TOOTH AND BONE SURGICAL REMOVAL, ERUPTED TOOTH AND BONE 01/2017 Current Outpatient Medications Medication Sig Dispense Refill clonazePAM 0.5 MG Oral Tablet (KlonoPIN) TAKE ONE TABLET BY MOUTH TWICE DAILY NEEDED FOR [id number] Tablet 0 Zinc 25 MG Oral Tablet Take 3 Tablets by mouth in the morning and 3 Tablets before bedtime. Rosuvastatin Calcium 10 MG Oral Tablet (Crestor) TAKE ONE TABLET BY MOUTH IN THE MORNING 90 Tablet 0 ceFAZolin IV IV (AMBULATORY) Administer intravenously. Through IV Pump Eliquis 5 MG Oral Tablet Take 1 Tablet by mouth in the morning and 1 Tablet before bedtime. Tamsulosin HCl 0.4 MG Oral Capsule (Flomax) Take 1 Capsule by mouth in the morning. Pregabalin 75 MG Oral Capsule (Lyrica) Take 1 Capsule by mouth in the morning and 1 Capsule at noonand 1 Capsule in the evening. 90 Capsule 1 Furosemide 20 MG Oral Tablet (Lasix) take 1 tab by mouth daily as needed 30 Tablet 0 Carvedilol 6.25 MG Oral Tablet (Coreg) Take 1 Tablet by mouth in the morning and 1 Tablet before bedtime. 180 Tablet 3 Methadone HCl 10 MG/5ML Oral Solution Take 50 mL by mouth daily. cloNIDine HCl 0.1 MG Oral Tablet (Catapres) Take 1 Tablet by mouth in the morning and 1 Tablet in the evening. 180 Tablet 3 Aspirin 325 MG Oral Tablet Take 1 Tablet by mouth in the morning. Mycophenolate Mofetil 250 MG Oral Capsule (Cellcept) Take 3 Capsules by mouth in the morning and 3 Capsules before bedtime. Tacrolimus 1 MG Oral Capsule (Prograf) 2 times a day. 2 mg in AM and 1 mg at bedtime oxyCODONE HCl 10 MG Oral Tablet (Roxicodone) Take 1 Tablet by mouth 2 times a day as needed. (Patient not taking: Reported on 10/30/2023) Zinc 220 (50 Zn) MG Oral Capsule Take 220 mg by mouth every morning. (Patient not taking: Reported on 10/30/2023) Clotrimazole-Betamethasone 1-0.05 % External Cream (Lotrisone) (Patient not taking: Reported on 10/30/2023) Silvadene 1 % External Cream Apply topically to affected area daily. (Patient not taking: Reported on 10/30/2023) 50 g 2 Cyclobenzaprine HCl 10 MG Oral Tablet (Flexeril) (Patient not taking: Reported on 10/30/2023) Santyl 250 UNIT/GM External Ointment (Patient not taking: Reported on 10/30/2023) Triamcinolone Acetonide 0.1 % External Cream (Aristocort) Apply topically to affected area 2 times a day. On left forearm and Rt thigh till better (Patient not taking: Reported on 10/30/2023) 45 g 1 Current Facility-Administered Medications Medication Dose Route Frequency Provider Last Rate Last Admin bevaCIZumab (Avastin) inj 1.25 mg 1.25 mg Intravitreal PRN Burton Schroeder, DO 1.25 mg at 10/03/23 1208 ROPivacaine (Naropin) inj 1.5 mg 1.5 mg Perineural PRN Burton Schroeder, DO 1.5 mg at 208 Review of patient's allergies indicates: Allergen Reactions Sulfamethoxazole Rash Trimethoprim Rash Most Recent Immunizations Administered Date(s) Administered COVID-19 mRNA, LNP-s, No Preserve, 2-Dose Series (Moderna) 08/09/2020 Seasonal Influenza Virus Vaccine, Unspecified Formulation 05/10/2018 Seasonal Influenza, PF, 6 M & above, IM , (FluLaval or Fluzone) 03/07/2020 Seasonal Influenza, Quadrivalent,with Preserve, 3 yr & above, IM 07/15/2017 Seasonal Influenza, Split, IIV3, With Preserve, Inj 03/07/2020 TDAP (age 11 and older)(Adacel) 06/21/2018 Review of Systems: Physical Exam BP 114/52 (BP Site: Right Arm, BP Position: Sitting, BP Cuff Size: Large) | Pulse 80 | Temp 37.3 C (99.1 F) (Tympanic) | Resp 16 Physical Exam Constitutional: Appearance: Normal appearance. HENT: Head: Normocephalic. Cardiovascular: Rate and Rhythm: Normal rate and regular rhythm. Pulmonary: Effort: Pulmonary effort is normal. Breath sounds: Normal breath sounds. Chest: Comments: Picc line dressing in L chest intact Abdominal: General: Bowel sounds are normal. Musculoskeletal: Cervical back: Neck supple. Comments: In motorized WC, Dressings in left foot intact, Skin: General: Skin is warm. Neurological: Mental Status: He is alert and oriented to person, place, and time. Psychiatric: Mood and Affect: Mood normal. Assessment and Plan 1. Type 1 diabetes mellitus with hemoglobin A1c goal of less than 7.0% ([facility]) - HEMOGLOBIN A1C; Future 2. 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 Diabetic Charcot foot ([facility]) Requested new WC form to be filled out by pcp -- gave form to Dr. Leyva 4. Cellulitis of left lower extremity Cont IV cefazolin 5. Kidney replaced by transplant F/u nephrology 6. Deep venous thrombosis (DVT) of left peroneal vein, unspecified chronicity ([facility]) Will send 30 days supply, rec f/u ordering provider - Eliquis 5 MG Oral Tablet; Take 1 Tablet by mouth in the morning and 1 Tablet before bedtime. Dispense: 60 Tablet; Refill: 0 7. History of drug abuse (HCC) 8. 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HCC) 9. JOB (generalized anxiety disorder) Wrap-Up I have advised the patient to call our office with any worsening or new symptoms. I spent a total of 40-54 minutes (exact time 45 mins) on the date of service in preparation, delivery, and documentation of the care provided to Bernard Jones excluding any time spent in the performance of separately billed services. Audelia Steiner, MSN, [employer] [facility] documented in this encounter Nursing Notes * Douglas Rich RN - 10/30/2023 8:38 AM EDT Chief Complaint Patient presents with Hospital Follow-Up Cellulitis of left foot documented in this encounter Plan of Treatment Upcoming Encounters Date Type Department Care Team (Late st Contact Info) Description 10/31/2023 8:30 AM EDT Office Visit [facility] [address] [place] [address] Burton Schroeder DO [address] [place] [address] Pending Results Name Type Priority Associated Diagnoses Date /Time HEMOGLOBIN A1C Lab Routine Type 1 diabetes mellitus with hemoglobin A1c goal of less than 7.0% (HCC) 10/30/2023 9:27 AM EDT Scheduled Orders Name Type Priority Associated Diagnoses Orde r Schedule HEMOGLOBIN A1C Lab Routine Type 1 diabetes mellitus with hemoglobin A1c goal of less than 7.0% (HCC) Expected: 10/30/2023 (Approximate), Expires: 10/29/2024 Health Maintenance Due Date Last Done Comments [...] 03/07/2020, 03/07/2020, 03/18/2019, Additional history exists GFR 10/27/2024 10/28/2023, 10/08, 10/15/2023, Additional history exists Lipid Panel 12/06/2024 12/07/2019, [...] goal of less than 7.0% (HCC)- Primary Diabetic Charcot foot (HCC) Type II or unspecified type diabetes mellitus with neurological manifestations, not stated as uncontrolled 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 (HCC) 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 Cellulitis of left lower extremity Cellulitis and abscess of leg, except foot Kidney replaced by transplant Deep venous thrombosis (DVT) of left peroneal vein, unspecified chronicity (HCC) History of drug abuse (HCC) Other, mixed, or unspecified nondependent drug abuse, in remission 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HCC) Opioid type dependence, unspecified JOB (generalized anxiety disorder) Generalized anxiety disorder documented in this encounter Advance Directives * Full Code (Latest Code Status on File) Date Activated Date Inactivated Comments 02/14/2019 10:34 PM 02/20/2019 3:48 PM This order r eflects the patients wishes and were consensually agreed upon. Question Answer Comments Discussion of Advance Directives occurred with: Not Discussed Care Teams Upstream Biomanufacturing Technician Relationship Specialty Start Date End Date Ryan Leyva MD [address] [place] [address] PCP - General Family Medicine 07/17/22 documented as of this encounter"
--- OUTSIDE RECORDS SUMMARY | 2024-01-28 02:44 | External Medical Summary | Summary of Care ---
Author Name Unknown Organization [facility] Address [address] [place] [address] Phone [phone] Care Team Providers Care Sheet Tester Name Role Phone Ryan Leyva MD Primary Care Provider [phone] Encounter Details Date Type Department Care Team (Late st Contact Info) Description 10/28/2023 Result Scan Unspecified Department Ryan Leyva MD [address] [place] [address] <No scans attached> Allergies Active Allergy Reactions Criticality Noted Date Comments Sulfamethoxazole Rash 06/05/2023 Trimethoprim Rash 06/05/2023 documented as of this encounter (statuses as of 11/01/2023) Medications Medication Sig Dispensed Refills Start Date [...] 10/24/2023 Active clonazePAM 0.5 MG Oral Tablet (KlonoPIN)Indicatio ns:JOB (generalized anxiety disorder) TAKE ONE TABLET BY MOUTH TWICE DAILY NEEDED FOR ANXIETY 60 Tablet 10/30/2023 Active Hospital, Clinic, or Other Facility Administered [...] as of this encounter (statuses as of 11/01/2023) Active Problems Problem Noted Date Diagnosed Date [...] as of this encounter (statuses as of 11/01/2023) Resolved Problems Problem Noted Date Diagnosed Date [...] as of this encounter (statuses as of 11/01/2023) Immunizations Name Administration Dates Next Due COVID-19 [...] 10/2023, 04/04/2023, Additional history exists GFR 10/27/2024 10/28/2023, 10/08, [...] Date/Time Associated Diagnosis Comments OUTSIDE LAB RESULTS 10/28/2023 documented in this encounter Results * OUTSIDE LAB RESULTS (10/28/2023) 10/28/2023 Ryan Leyva MD LABORATORY documented in this encounter Advance Directives * Full Code (Latest Code Status on File) Date Activated Date Inactivated Comments 02/14/2019 10:34 PM 02/20/2019 3:48 PM This order r eflects the patients wishes and were consensually agreed upon. Question Answer Comments Discussion of Advance Directives occurred with: Not Discussed Care Teams Sheet Tester Relationship Specialty Start Date End Date Ryan Leyva MD [address] [facility] [place] [address] PCP - General Family Medicine 07/17/22 documented as of this encounter
--- OUTSIDE RECORDS SUMMARY | 2024-01-28 02:44 | External Medical Summary | Summary of Care ---
Author Name Unknown Organization [facility] Address [address] [place] [address] Phone [phone] Care Team Providers Care Salesperson Hearing Aids Name Role Phone Ryan Leyva MD Primary Care Provider [phone] Reason for Visit * Reason Onset Date Comments MyCode Nonconsent - Not interested at this time 10/30/2023 Encounter Details Date Type Department Care Team (Late st Contact Info) Description 10/30/2023 Orders Only Outcomes Research Department [address] [place] [address] Melania Villarreal CHRA MyCode Nonconsent Documentation Allergies Active Allergy Reactions Criticality Noted Date [...] the evening. 90 Capsule 1 09/30/2023 Active Eliquis 5 MG Oral Tablet Take 1 Tablet by mouth in the morning and 1 Tablet before bedtime. 09/26/2023 Active oxyCODONE HCl 10 MG Oral Tablet [...] as of this encounter Progress Notes * Melania Villarreal CHRA - 10/30/2023 8:22 AM EDT MyCode Nonconsent Documentation Bernard Jones was approached in the clinic regarding participation in the My[employer] Project and did not consent. documented in this encounter Plan of Treatment Upcoming Encounters Date Type Department Care Team (Late st Contact Info) Description 10/30/2023 8:40 AM EDT Office Visit Family Practice [facility] [address] [place] [address] Audelia Steiner CRNP [address] [place] [address] JOB (generalized anxiety disorder) 10/31/2023 8:30 AM EDT Office Visit Ophthalmology, [facility] [address] [place] [address] Burton Schroeder DO [address] [place] [address] Health Maintenance Due Date Last Done Comments [...] 03/07/2020, 03/07/2020, 03/18/2019, Additional history exists GFR 10/20/2024 10/21/2023, 05/0 12/2023, 10/08/2023, Additional history exists Lipid Panel 12/06/2024 12/07/2019, [...] Directives occurred with: Not Discussed Care Teams Salesperson Hearing Aids Relationship Specialty Start Date End Date Ryan Leyva MD [address] [facility] [place] [address] PCP - General Family Medicine 07/17/22 documented as of this encounter
--- OUTSIDE RECORDS SUMMARY | 2024-01-28 02:44 | External Medical Summary | Summary of Care ---
Author Name Unknown Organization [facility] Address [address] [place] [address] Phone [phone] Care Team Providers Care Hotel Director Name Role Phone Ryan Leyva MD Primary Care Provider [phone] Reason for Visit * Reason Comments Outpatient Testing Encounter Details Date Type Department Care Team (Late st Contact Info) Description 10/30/2023 9:40 AM EDT Laboratory Laboratory, [facility] [address] [place] [id number] [facility] [address] [place] [address] Type 1 diabetes mellitus with hemoglobin A1c goal of less than 7.0% ([facility]) Allergies Active Allergy Reactions Criticality Noted [...] Additional Information Patient not taking.Reported on 10/30/2023 Clotrimazole-Betame thasone 1-0.05 % External Cream (Lotrisone) [...] morning and 3 Tablets before bedtime. Active Hospital, Clinic, or Other Facility Administered [...] 10/31/2023 8:30 AM EDT Office Visit Ophthalmology, [facility] [address] [place] [address] Burton Schroeder DO [address] [place] [address] Pending Results Name Type Priority Associated Diagnoses Date /Time HEMOGLOBIN A1C Lab Routine Type 1 diabetes mellitus with hemoglobin A1c goal of less than 7.0% ([facility]) 10/30/2023 9:27 AM EDT Health Maintenance Due Date Last Done [...] Directives occurred with: Not Discussed Care Teams Hotel Director Relationship Specialty Start Date End Date Ryan Leyva MD [address] [place] [address] PCP - General Family Medicine 07/17/22 documented as of this encounter
--- OUTSIDE RECORDS SUMMARY | 2024-01-28 02:44 | External Medical Summary | Summary of Care ---
Author Name Unknown Organization [facility] Address [address] [place] [address] Phone [phone] Care Team Providers Care Law Professor Name Role Phone Farida Do MD Primary Care Provider [phone] [phone] Reason for Visit * Reason Comments eRx-Medication Refill Encounter Details Date Type Department Care Team (Late st Contact Info) Description 10/28/2023 Refill Family Practice [facility] [address] [place] [address] Farida Do MD [address] [place] [address] JOB (generalized anxiety disorder) Allergies Active Allergy [...] the morning and 1 Capsule before bedtime. 09/14/2021 Active Aspirin 325 MG Oral Tablet [...] NEEDED FOR ANXIETY 60 Tablet 10/30/2023 Active clonazePAM 0.5 MG Oral Tablet (KlonoPIN)Indicat ions:JOB (generalized anxiety disorder) Take 1 Tablet by mouth 2 times a day as needed for Anxiety. 60 Tablet 09/29/2023 Discontinued Hospital, Clinic, or Other Facility Administered [...] Telephone Encounter - Farida Do MD - 10/30/2023 7:57 AM EDTSigned Prescriptions: Disp Refills clonazePAM 0.5 MG Oral Tablet (KlonoPIN) 60 Tab*0 Sig: TAKE ONE TABLET BY MOUTH TWICE DAILY NEEDED FOR ANXIETY Authorizing Provider: FARIDA DO * Telephone Encounter - Suzanne Duncan [facility] - 10/30/2023 6:47 AM EDTPending Prescriptions: Disp Refills clonazePAM 0.5 MG Oral Tablet [Pharmacy Me*60 Tab*0 Sig: TAKE ONE TABLET BY MOUTH TWICE DAILY NEEDED FOR ANXIETY * Telephone Encounter - Suzanne Duncan [facility] - 10/30/2023 6:46 AM EDT I have reviewed the patients controlled substance dispensing history in the Prescription Drug Monitoring Program in compliance with the [place] regulations before prescribing a controlled substance. PDMP checked on 10/30/2023. Pending Prescriptions: Disp Refills clonazePAM 0.5 MG Oral Tablet (KlonoPIN) *60 Tab*0 Sig: TAKE ONE TABLET BY MOUTH TWICE DAILY NEEDED FOR ANXIETY Last Visit: 07/01/2023 (in office), 08/27/2023 (telemedicine) Next Visit: 10/30/2023 Date medication was last filled: 09/29/23 Date medication is due for refill: 10/28/23 Pharmacy: [id number] [facility] Is this request for a controlled substance? [...] Cutoff Concentration Please approve if appropriate. Thanks, Suzanne Duncan Clinical Pharmacist Centralized Clinical Pharmacy Services (CCPS) (Formerly Telepharmacy) [phone] 10/30/2023, 6:46 AM documented in this encounter Plan of Treatment Upcoming Encounters Date Type Department Care Team (Late st Contact Info) Description 10/30/2023 8:40 AM EDT Office Visit Family Practice [facility] [address] [place] [address] Audelia Steiner CRNP [address] [place] [address] 10/31/2023 8:30 AM EDT Office Visit Ophthalmology, [facility] [address] [place] [address] Burton Schroeder DO [address] [place] [address] Health Maintenance Due Date Last Done Comments [...] Directives occurred with: Not Discussed Care Teams Law Professor Relationship Specialty Start Date End Date Farida Do MD [address] [place] [address] PCP - General Family Medicine 07/17/22 documented as of this encounter
--- OUTSIDE RECORDS SUMMARY | 2024-01-28 02:44 | External Medical Summary | Summary of Care ---
Author Name Unknown Organization [facility] Address [address] [place] [address] Phone [phone] Care Team Providers Care Setter Molding And Coremaking Machines Name Role Phone Ryan Leyva MD Primary Care Provider [phone] Reason for Visit * Reason Comments Follow Up Encounter Details Date Type Department Care Team (Late st Contact Info) Description 10/31/2023 8:30 AM EDT Office Visit Ophthalmology, [facility] [address] [place] [address] Burton Schroeder, DO [address] [place] [address] Proliferative diabetic retinopathy of both eyes associated with type 1 diabetes mellitus, unspecified proliferative retinopathy type (HCC)* Allergies Active Allergy Reactions Criticality Noted Date Comments Sulfamethoxazole Rash 06/05/2023 Trimethoprim Rash 06/05/2023 documented as of this encounter (statuses as of 10/31/2023) Medications Medication Sig Dispensed Refills Start Date [...] as of this encounter (statuses as of 10/31/2023) Active Problems Problem Noted Date Diagnosed Date [...] as of this encounter (statuses as of 10/31/2023) Resolved Problems Problem Noted Date Diagnosed Date [...] as of this encounter (statuses as of 10/31/2023) Immunizations Name Administration Dates Next Due COVID-19 [...] this encounter Progress Notes * Burton Schroeder Eligio, - 10/31/2023 8:30 AM EDT new VH OS started 2 weeks ago TIMEOUT PROCEDURE: correct patient identity-YES correct procedure [...] documented in this encounter Nursing Notes * Nadja Bazzi LPN - 10/31/2023 9:10 AM EDT Bernard Jones to receive 12 Avastin 1.25mg Injection of the Left eye. Correct eye confirmed with patient and marked by Burton Schroeder DO Avastin 1.25mg lot # [id number] Exp. Date: 01/05/2024 * Nadja Bazzi LPN - 10/31/2023 8:41 AM EDT Bernard Jones is a 38 year old year old male who presents for PDR OU. Last Office Visit: 10/03/2023 (in office), Visit date not found (telemedicine) Patient currently states "I did regain some vision in right eye since shot and decreased vision in left eye" Are you diabetic? Yes. Do you check your blood sugars daily? NO. Last Hemoglobin A1C: Lab Results Component Value [...] mellitus, unspecified proliferative retinopathy type (HCC) Ordered: 10/31/2023 Health Maintenance Due Date Last Done Comments [...] 010 10/2023, 04/04/2023, Additional history exists GFR 10/27/2024 [...] Sat10/02/24 at 0923, For 365 days Given 10/31/2023 9:14 AM EDT 1.25 mg Eye Left Given 10/03/2023 12:08 PM EDT 1.25 mg E ye Right ROPivacaine (Naropin) inj 1.5 mg 1.5 mg, Perineural, PRN Other, Starting on Rosa Isela 10/03/23 at 0924, Until Sat10/02/24 at 0923, For 365 days Given 10/31/2023 9:13 AM EDT 1.5 mg Eye Left Given 10/03/2023 12:08 PM EDT 1.5 mg E ye Right documented in this encounter Advance Directives * Full Code (Latest Code Status on File) Date Activated Date Inactivated Comments 02/14/2019 10:34 PM 02/20/2019 3:48 PM This order r eflects the patients wishes and were consensually agreed upon. Question Answer Comments Discussion of Advance Directives occurred with: Not Discussed Care Teams Setter Molding And Coremaking Machines Relationship Specialty Start Date End Date Ryan Leyva MD [address] [place] [address] PCP - General Family Medicine 07/17/22 documented as of this encounter
--- OUTSIDE RECORDS SUMMARY | 2024-01-28 02:44 | External Medical Summary | Summary of Care ---
Author Name Unknown Organization [facility] Address [address] [place] [address] Phone [phone] Care Team Providers Care Director Of Sustainable Design Name Role Phone Ryan Leyva MD Primary Care Provider [phone] Reason for Visit * Reason Comments Follow Up Encounter Details Date Type Department Care Team (Late st Contact Info) Description 10/31/2023 8:30 AM EDT Office Visit Ophthalmology, [facility] [address] [place] [address] Burton Schroeder, DO [address] [place] [address] Proliferative diabetic retinopathy of both eyes associated [...] Burton Schroeder DO Avastin 1.25mg lot # [id number] Exp. Date: 01/05/2024 * Nadja Bazzi LPN [...] with: Not Discussed Care Teams Director Of Sustainable Design Relationship Specialty Start Date End Date Ryan Leyva MD [address] [place] [address] PCP - General Family Medicine 07/17/22 documented as of this encounter
--- OUTSIDE RECORDS SUMMARY | 2024-01-28 02:44 | External Medical Summary | Summary of Care ---
Author Name Unknown Organization [facility] Address [address] [place] [address] Phone [phone] Care Team Providers Care Acting Professor Name Role Phone Farida Do MD Primary Care Provider [phone] [phone] Reason for Visit * Reason Comments eRx-Medication Refill Encounter Details Date Type Department Care Team (Late st Contact Info) Description 10/23/[address] [facility] [address] [place] [address] Farida Do MD [address] [facility] [place] [address] Type 1 diabetes mellitus with hemoglobin A1c goal of less than 7.0% ([facility]) Allergies Active Allergy Reactions Criticality Noted Date Comments Sulfamethoxazole Rash 06/05/2023 Trimethoprim Rash 06/05/2023 documented as of this encounter (statuses as of 10/24/2023) Medications Medication Sig Dispensed Refills Start Date [...] by mouth every morning. 0 06/13/2023 Active Furosemide 20 MG Oral Tablet (Lasix) take 1 tab by mouth daily as needed 30 Tablet 0 09/16/2023 Active clonazePAM 0.5 MG Oral Tablet (KlonoPIN)Indicat ions:JOB (generalized anxiety disorder) Take 1 Tablet by mouth 2 times a day as needed for Anxiety. 60 Tablet 0 09/29/2023 Active Pregabalin 75 MG Oral Capsule (Lyrica)Indicatio ns:Venous stasis of both lower extremities Take 1 Capsule by mouth in the morning and 1 Capsule at noon and 1 Capsule in the evening. 90 Capsule 1 09/30/2023 Active Eliquis 5 MG Oral Tablet Take 1 Tablet by mouth in the morning and 1 Tablet before bedtime. 0 09/26/2023 Active oxyCODONE HCl 10 MG Oral Tablet (Roxicodone) Take 1 Tablet by mouth 2 times a day as needed. 0 09/26/2023 Active Tamsulosin HCl 0.4 MG Oral Capsule (Flomax) Take 1 Capsule by mouth in the morning. 0 09/26/2023 Active ceFAZolin IV IV (AMBULATORY) Administer intravenously. Through IV Pump 0 Active Rosuvastatin Calcium 10 MG Oral Tablet (Crestor)Indicati ons:Type 1 diabetes mellitus with hemoglobin A1c goal of less than 7.0% (HCC) TAKE ONE TABLET BY MOUTH IN THE MORNING 90 Tablet 0 10/24/2023 Active Rosuvastatin Calcium 10 MG Oral Tablet (Crestor)Indicati ons:Type 1 diabetes mellitus with hemoglobin A1c goal of less than 7.0% (HCC) TAKE ONE TABLET BY MOUTH IN THE MORNING 90 Tablet 0 07/23/2023 4 Discontinued Hospital, Clinic, or Other Facility [...] as of this encounter (statuses as of 10/24/2023) Active Problems Problem Noted Date Diagnosed Date [...] as of this encounter (statuses as of 10/24/2023) Resolved Problems Problem Noted Date Diagnosed Date [...] as of this encounter (statuses as of 10/24/2023) Immunizations Name Administration Dates Next Due COVID-19 [...] Telephone Encounter - Farida Do MD - 10/24/2023 12:07 PM EDTSigned Prescriptions: Disp Refills Rosuvastatin Calcium 10 MG Oral Tablet (Cr*90 Tab*0 Sig: TAKE ONE TABLET BY MOUTH IN THE MORNING Authorizing Provider: FARIDA DO * Telephone Encounter - Douglas Hernandez [facility] - 10/24/2023 11:40 AM EDT Pending Prescriptions: Disp Refills Rosuvastatin Calcium 10 MG Oral Tablet [Ph*90 Tab*0 Sig: TAKE ONE TABLET BY MOUTH IN THE MORNING * Telephone Encounter - Douglas Hernandez [facility] - 10/24/2023 11:38 AM EDT Unable to authorize medication refills for pended medication(s) at this time. Part of the protocol criteria used for refill authorization was not satisfied. Patient needs LIPID PANEL on file within the last year. Last lipid panel on file from 12/30/2020 Please approve if appropriate. Thanks, Douglas Hernandez, PharmD Clinical Pharmacist Centralized Clinical Pharmacy Services (CCPS) (formerly Telepharmacy) [phone] 10/24/2023, 11:39 AM documented in this encounter Plan of Treatment Upcoming Encounters Date Type Department Care Team (Late st Contact Info) Description 10/30/2023 8:40 AM EDT Office Visit [facility] [address] [place] [address] Audelia Steiner CRNP [address] [place] [address] Health Maintenance Due Date Last Done Comments [...] 03/18/2019, Additional history exists GFR 10/20/2024 10/21/2023, 12/2023, 10/08/2023, Additional history exists Lipid Panel [...] Directives occurred with: Not Discussed Care Teams Acting Professor Relationship Specialty Start Date End Date Farida Do MD [address] [facility] [place] [address] PCP - General Family Medicine 07/17/22 documented as of this encounter
--- OUTSIDE RECORDS SUMMARY | 2024-01-28 02:44 | External Medical Summary ---
Author Name Unknown Address Unknown Organization K01:[facility] - [address] [place] [address] Laboratory Report Ordering Provider Test Date Status TESSA GAVIN 10/30/2023 09:27:15 Final Observation Date Value Abnormality Reference (Units ) Status HbA1C 10/30/2023 09:27:15 5.3 4.0-5.6 (% ) Final The use of HbA1c to monitor glycemic status is based on normal hemoglobin and HbA composition. This test should not be used in patients with abnormal hemoglobin that affects the half life of the red blood cell or the in vivo glycation rates. Glucose, estimated average 10/30/2023 09:27:15 105 <126 (mg/dL) Final Performing Location [facility] - [address] [place] [address]
--- OUTSIDE RECORDS SUMMARY | 2024-01-28 02:44 | External Medical Summary | Summary of Care ---
Author Name Unknown Organization [facility] Address [address] [place] [address] Phone [phone] Care Team Providers Care Public Employment Mediator Name Role Phone Ryan Leyva MD Primary Care Provider [phone] [phone] Encounter Details Date Type Department Care Team (Late st Contact Info) Description 10/30/2023 Orders Only Family [facility] [address] [place] [address] Ryan Leyva MD [address] [place] [address] Allergies Active Allergy Reactions Criticality Noted Date [...] 10/31/2023 8:30 AM EDT Office Visit Ophthalmology, [facility] [address] [place] [address] Deepak Schroedermirandalesley Del Valle DO [address] [place] [address] Health Maintenance Due Date Last Done Comments [...] Priority Date/Time Associated Diagnosis Comments CHEMISTRY-OUTSIDE Routine 10/28/2023 documented in this encounter Results * (ABNORMAL) CHEMISTRY-OUTSIDE (10/28/2023) Not all results display below - see scan for full detail OUTSIDE LAB (SEE SCANNED REPORT) Comment:SCAN INCLUDES: CBCD, AMYLASE, LIPASE, MG, RENAL FUNCTION PANEL CREATININE-OUTSID E LAB 0.98 0.70 - 1.30 MG/DL OUTSIDE LAB (SEE SCANNED REPORT) EGFR-OUTSIDE LAB >90 >=60 ML/MIN OUTSIDE LAB (SEE SCANNED REPORT) POTASSIUM-OUTSIDE LAB 4.7 3.5 - 5.1 MMOL/L OUTSIDE LAB (SEE SCANNED REPORT) GLUCOSE-OUTSIDE LAB 102 70 - 110 MG/DL OUTSIDE LAB (SEE [...] LAB OUTSIDE LAB (SEE SCANNED REPORT) HEMOGLOBIN, [id number] LAB OUTSIDE LAB (SEE SCANNED REPORT) PHOSPHORUS-OUTSID E LAB 4.0 2.5 - 4.9 MG/DL OUTSIDE LAB (SEE SCANNED REPORT) PTH-OUTSIDE LAB OUTS ANÍBAL LAB (SEE SCANNED REPORT) MICROALBUMIN RATIO-OUTSIDE LAB OUTSIDE LA B (SEE SCANNED REPORT) PROTEIN, UA-OUTSIDE LAB OUTSIDE LAB (SEE SCANNED REPORT) HGB 12.7(A) 13.5 - 18.0 GM/DL OUTSIDE LAB (SEE SCANNED REPORT) 10/28/2023 Ryan Leyva MD LABORATORY OUTSIDE LAB (SEE SCANNED REPORT) documented in this encounter Advance Directives * Full Code (Latest Code Status on File) Date Activated Date Inactivated Comments 02/14/2019 10:34 PM 02/20/2019 3:48 PM This order r eflects the patients wishes and were consensually agreed upon. Question Answer Comments Discussion of Advance Directives occurred with: Not Discussed Care Teams Public Employment Mediator Relationship Specialty Start Date End Date Ryan Leyva MD [address] [place] [address] PCP - General Family Medicine 07/17/22 documented as of this encounter
--- OUTSIDE RECORDS SUMMARY | 2024-01-28 02:44 | External Medical Summary | Summary of Care ---
Author Name Unknown Organization [facility] Address [address] [place] [address] Phone [phone] Care Team Providers Care Laborer Pole Crew Name Role Phone Ryan Leyva MD Primary Care Provider [phone] Reason for Visit * Reason Comments Follow [...] DRUG Burton Schroeder DO [address] [place] [address] Ophthalmology [facility] [address] [facility] [place] [address] Referral ID Status Reason Start Date Expiration Date V isits Requested Visits Authorized [id number] Authorized Precert 05/31/2022 06/09/2099 [id number] Encounter Details Date Type Department Care Team (Late st Contact Info) Description 04/09/2023 9:45 AM EDT Office Visit Ophthalmology, [facility] [address] [place] [address] Burton Schroeder DO [address] [place] [address] Vitreous hemorrhage of left eye (HCC)*; Proliferative diabetic retinopathy of both eyes associated with type 1 diabetes mellitus, unspecified proliferative retinopathy type ([facility]) Allergies Active Allergy Reactions Criticality Noted [...] before bedtime. 180 Tablet 3 01/14/2023 Active Sulfamethoxazol e-Trimethoprim 400-80 MG Oral Tablet (Bactrim) Take 1 Tablet by mouth in the morning. Take three times a week. 07/17/2022 05/31/20 23 Discontinued(End of Procedure) Rosuvastatin Calcium 10 MG Oral Tablet (Crestor)Indica tions:Type 1 diabetes mellitus with hemoglobin A1c goal of less than 7.0% ([facility]) TAKE 1 TABLET BY MOUTH EVERY MORNING 90 Tablet 01/26/2023 07/23/19 24 Discontinued methylPREDNISol one 4 MG Oral Tablet Therapy Pack (Medrol Dosepack) follow package directions 21 Tablet 03/18/2023 04/19/20 23 Discontinued Pregabalin 50 MG Oral Capsule (Lyrica)Indicat ions:History of drug abuse (HCC) TAKE 1 CAPSULE BY MOUTH IN THE MORNING, 1 CAPSULE AT NOON AND 1 CAPSULE BEFORE BEDTIME. 90 Capsule 03/20/2023 04/22/20 23 Discontinued clonazePAM 0.5 MG Oral Tablet (KlonoPIN)Indic ations:JOB (generalized anxiety disorder) Take 1 Tablet by mouth 2 times a day as needed for Anxiety. 60 Tablet 1 03/29/2023 05/20/20 Discontinued(Ref ill) predniSONE 20 MG Oral Tablet (Deltasone) Take 4 tabs daily for 2 days, 3 tabs daily for 2 days, 2 tabs daily for 2 days, 1 tab daily for 2 days 20 Tablet 04/04/2023 04/19/20 Discontinued Hospital, Clinic, or Other Facility Administered [...] - 04/09/2023 9:45 AM EDT [facility] [place] Nursing notes reviewed. 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 Dry eye -recommend OTC preservative-free artificial tears 4-6/day and prn. F/u 6-8 wks - dilate and OCT OU Burton Schroeder, DO [address] CC: Aris Ram, OD PCP: Douglas Dennison DO TIMEOUT PROCEDURE: correct patient identity-YES correct [...] 10:42 AM EDT Bernard Jones to receive 11 Avastin 1.25mg Injection of the Left eye. Correct eye confirmed with patient and marked by Burton Schroeder DO Avastin 1.25mg lot # [id number] Exp. Date: 04/16/2023 * Edin Luna COA [...] (HCC) documented in this encounter Administered Medications Inactive Administered Medications - up to 3 most recent administrations Medication Order MAR Action Action Date Dose Rate Site bevaCIZumab (Avastin) inj 1.25 mg 1.25 mg, Intravitreal, PRN Other, Starting on 06/29/22 at 1339, Until 06/29/23 at 1338, For 365 days Given 06/21/2023 11:59 AM EST 1.25 mg Eye Right Given 04/09/2023 10:45 AM EDT 1.25 mg E ye Left Given 12/17/2022 1:27 PM EDT 1.25 mg Ey e Right ROPivacaine (Naropin) inj 1.5 mg 1.5 mg, Perineural, PRN Other, Starting on 06/29/22 at 1339, Until 06/29/23 at 1338, For [...] Directives occurred with: Not Discussed Care Teams Laborer Pole Crew Relationship Specialty Start Date End Date Ryan Leyva MD [address] [place] [address] PCP - General Family Medicine 07/17/22 documented as of this encounter
--- OUTSIDE RECORDS SUMMARY | 2024-01-28 02:45 | External Medical Summary | Summary of Care ---
Author Name Unknown Organization [facility] Address [address] [place] [address] Phone [phone] Care Team Providers Care Mis Manager Name Role Phone Ryan Leyva MD Primary Care Provider [phone] Reason for Visit * Reason Onset Date Comments Home Health 10/08/2023 Encounter Details Date Type Department Care Team (Late st Contact Info) Description 10/08/2023 Telephone Family Practice [facility] [address] [facility] [place] [address] Ryan Leyva MD [address] [facility] [place] [id number] Home Health Allergies Active Allergy Reactions Criticality Noted Date Comments Sulfamethoxazole Rash 06/05/2023 Trimethoprim Rash 06/05/2023 documented as of this encounter (statuses as of 10/09/2023) Medications Medication Sig Dispensed Refills Start Date [...] THE MORNING 90 Tablet 0 07/23/2023 Active Furosemide 20 MG Oral Tablet (Lasix) take 1 tab by mouth daily as needed 30 Tablet 0 09/16/2023 Active clonazePAM 0.5 MG Oral Tablet (KlonoPIN)Indicatio ns:JOB (generalized anxiety disorder) Take 1 Tablet by mouth 2 times a day as needed for Anxiety. 60 Tablet 0 09/29/2023 Active Pregabalin 75 MG Oral Capsule (Lyrica)Indications [...] Administer intravenously. Through IV Pump 0 Active Hospital, Clinic, or Other Facility Administered [...] as of this encounter (statuses as of 10/09/2023) Active Problems Problem Noted Date Diagnosed Date [...] as of this encounter (statuses as of 10/09/2023) Resolved Problems Problem Noted Date Diagnosed Date [...] as of this encounter (statuses as of 10/09/2023) Immunizations Name Administration Dates Next Due COVID-19 [...] encounter Miscellaneous Notes * Telephone Encounter - Karen Lloyd LPN - 10/09/2023 1:32 PM EDT Jean calling from [facility], PT. Asking if the patient has made a follow up visit. Informed there are no future appointments at this time. Verbalized understanding. Will check with the patient. Called patient. No answer. Rang and disconnected. * Telephone Encounter - Tamara De La O LPN - 10/08/2023 3:56 PM EDT Jean [facility] PT spoke with patient and he has received his new orthotics and is agreeable to a PT eval now Jean would like to see patient tomorrow Last office visit: 07/01/2023 Last TeleMed appt: 08/27/2023 Next office visit: Visit date not found Patient has not scheduled a hospital discharge appt yet Advised Jean that patient needs to get scheduled before we will be able to give any orders Jean will reach out to patient and advise him to call to schedule He will call back to follow up on orders then documented in this encounter Plan of Treatment [...] 03/07/2020, 03/07/2020, 03/18/2019, Additional history exists GFR 10/07/2024 10/08/2023, 09/09, 09/16/2023, Additional history exists Lipid Panel 12/06/2024 12/07/2019, [...] Directives occurred with: Not Discussed Care Teams Mis Manager Relationship Specialty Start Date End Date Ryan Leyva MD [address] [place] [address] PCP - General Family Medicine 07/17/22 documented as of this encounter
--- OUTSIDE RECORDS SUMMARY | 2024-01-28 02:45 | External Medical Summary | Summary of Care ---
Author Name Unknown Organization [facility] Address [address] [place] [address] Phone [phone] Care Team Providers Care Game Warden Name Role Phone Ryan Leyva MD Primary Care Provider [phone] Reason for Visit * Reason Onset Date Comments Home Health 10/08/2023 Encounter Details Date Type Department Care Team (Late st Contact Info) Description 10/08/2023 Telephone Family Practice [facility] [address] [facility] [place] [address] Ryan Leyva MD [address] [facility] [place] [id number] Home Health Allergies Active Allergy Reactions Criticality Noted Date Comments Sulfamethoxazole Rash 06/05/2023 Trimethoprim Rash 06/05/2023 documented as of this encounter (statuses as of 10/08/2023) Medications Medication Sig Dispensed Refills Start Date [...] as of this encounter (statuses as of 10/08/2023) Active Problems Problem Noted Date Diagnosed Date [...] as of this encounter (statuses as of 10/08/2023) Resolved Problems Problem Noted Date Diagnosed Date [...] as of this encounter (statuses as of 10/08/2023) Immunizations Name Administration Dates Next Due COVID-19 [...] encounter Miscellaneous Notes * Telephone Encounter - Tamara De La O LPN - 10/08/2023 3:56 PM EDT [facility] PT spoke with patient and he has [...] 03/07/2020, 03/07/2020, 03/18/2019, Additional history exists GFR 09/30/2024 2023, 01/2024, 06/17/2023, Additional history exists Lipid Panel 12/06/2024 12/07/2019, [...] Directives occurred with: Not Discussed Care Teams Game Warden Relationship Specialty Start Date End Date Ryan Leyva MD [address] [facility] [place] [address] PCP - General Family Medicine 07/17/22 documented as of this encounter
--- OUTSIDE RECORDS SUMMARY | 2024-01-28 02:45 | External Medical Summary | Summary of Care ---
Author Name Unknown Organization [facility] Address [address] [place] [address] Phone [phone] Care Team Providers Care Milieu Therapist Name Role Phone Ryan Leyva MD Primary Care Provider [phone] Encounter Details Date Type Department Care Team ([facility] st Contact Info) Description 10/15/2023 Result Scan Unspecified Department <No scans attached> Allergies Active Allergy Reactions Criticality Noted Date Comments Sulfamethoxazole Rash 06/05/2023 Trimethoprim Rash 06/05/2023 documented as of this encounter (statuses as of 10/21/2023) Medications Medication Sig Dispensed Refills Start Date [...] as of this encounter (statuses as of 10/21/2023) Active Problems Problem Noted Date Diagnosed Date [...] as of this encounter (statuses as of 10/21/2023) Resolved Problems Problem Noted Date Diagnosed Date [...] as of this encounter (statuses as of 10/21/2023) Immunizations Name Administration Dates Next Due COVID-19 [...] 10/30/2023 8:40 AM EDT Office Visit Family [facility] [address] [place] [address] Audelia Steiner CRNP [address] [place] [address] Health Maintenance Due Date Last Done Comments [...] 03/07/2020, 03/07/2020, 03/18/2019, Additional history exists GFR 10/14/2024 10/15/2023, 09/10, 2023, Additional history exists Lipid Panel 12/06/2024 12/07/2019, [...] Date/Time Associated Diagnosis Comments OUTSIDE LAB RESULTS 10/15/2023 documented in this encounter Results * OUTSIDE LAB RESULTS (10/15/2023) 10/15/2023 No Physician Data Unknown LABORATORY documented in this encounter Advance Directives Latest Code Status on File Code Status Date Activated Date Inactivated Comments Full Code 02/14/2019:34 PM 02/20/2019 3:48 PM This order reflects the patients wishes and were consensually agreed upon. Question Answer Comments Discussion of Advance Directives occurred with: Not Discussed Care Teams Milieu Therapist Relationship Specialty Start Date End Date Ryan Leyva MD [address] [place] [address] PCP - General Family Medicine 07/17/22 documented as of this encounter
--- OUTSIDE RECORDS SUMMARY | 2024-01-28 02:45 | External Medical Summary | Summary of Care ---
Author Name Unknown Organization [facility] Address [address] [place] [address] Phone [phone] Care Team Providers Care Contact Center Associate Name Role Phone Ryan Leyva MD Primary Care Provider [phone] Reason for Visit * Reason Onset Date Comments Advice 10/16/2023 FYI 10/16/2023 Encounter Details Date Type Department Care Team ([facility] st Contact Info) Description 10/16/2023 Telephone Family Practice [facility] [address] [place] [address] Ryan Leyva MD [address] [place] [address] Advice; I Allergies Active Allergy Reactions Criticality Noted Date [...] encounter Miscellaneous Notes * Telephone Encounter - Jacquie Santos LPN - 10/17/2023 2:18 PM EDT Juhi calling back, aware of Ryan Leyva MD message. Advised that patient is aware as well and a Ov is scheduled for 10/29 with PIPER Galvan. * Telephone Encounter - Sarath Meeks OSA - 10/17/2023 2:00 PM EDT Called and spoke to pt, scheduled OV with Audelia Steiner soon to discuss * Telephone Encounter - Douglas Rich RN - 10/17/2023 1:14 PM EDT Called, left message for nurse Juhi from [facility] to return call to the dedicated nurse call center. Please inform her of Dr. Leyva's previous message. Called patient and informed him Dr. Leyva would like to see him for office visit for follow up and to go over everything. Patient verbalized understanding and is agreeable. Scheduling: Please schedule patient for appointment with Dr. Leyva per his previous message. * Telephone Encounter - Ryan Leyva MD - 10/16/2023 11:29 AM EDT Needs OV to go over everything. He had type 2 diabetes that resolved after his transplant but mightneed to be rechecked. * Telephone Encounter - Douglas Rich RN - 10/16/2023 10:41 AM EDT Received call from Juhi [facility] nurse from [facility]. She said the patient is now being followed and managed by them and is no longer [facility]. Juhi said they discovered a potentially severe drug to drug interaction between Eliquis and Aspirin and wanted Dr. Leyva to be aware. She also said the patient is Type 1 diabetic and that he is not on any medication for diabetes. Shewanted to make Dr. Leyva aware and asked if the patient should be on any medication? Please advise. Juhi also said the patient was hospitalized in September 2023, and recommended he have a hospital follow up with his PCP. Please advise. Juhi can be reached at [phone] documented in this encounter Plan of Treatment Upcoming Encounters Date Type Department Care Team (Late st Contact Info) Description 10/30/2023 8:40 AM EDT Office Visit Family [facility] [address] [place] [address] Audelia Steiner CRNP [address] [place] [address] Health Maintenance Due Date Last Done Comments [...] Directives occurred with: Not Discussed Care Teams Contact Center Associate Relationship Specialty Start Date End Date Ryan Leyva MD [address] [facility] [place] [address] PCP - General Family Medicine 07/17/22 documented as of this encounter
--- OUTSIDE RECORDS SUMMARY | 2024-01-28 02:45 | External Medical Summary | Summary of Care ---
Author Name Unknown Organization [facility] Address [address] [place] [address] Phone [phone] Care Team Providers Care Corncob Pipe Manufacturing Supervisor Name Role Phone Ryan Leyva MD Primary Care Provider [phone] Encounter Details Date Type Department Care Team (Late st Contact Info) Description 10/09/2023 Orders Only Family [facility] [address] [place] [address] Ryan Leyva MD [address] [place] [address] Allergies Active Allergy Reactions Criticality Noted Date [...] 03/07/2020, 03/18/2019, Additional history exists GFR 09/30/2024 10/08/2023, 09/09, 09/16/2023, Additional history exists Lipid [...] Priority Date/Time Associated Diagnosis Comments CHEMISTRY-OUTSIDE Routine 10/08/2023 documented in this encounter Results * (ABNORMAL) CHEMISTRY-OUTSIDE (10/08/2023) Not all results display below - see scan for full detail OUTSIDE LAB (SEE SCANNED REPORT) Comment:SCAN INCLUDES - LYTE S, BUN, CREATININE, CBCD CREATININE-OUTSID E LAB 0.81 0.6 - 1.4 MG/DL OUTSIDE LAB (SEE SCANNED REPORT) EGFR-OUTSIDE LAB 111.2 ML/MIN OUT SIDE LAB (SEE SCANNED REPORT) POTASSIUM-OUTSIDE LAB 4.4 3.5 - 5.1 MMOL/L OUTSIDE LAB (SEE [...] LAB OUTSIDE LAB (SEE SCANNED REPORT) HEMOGLOBIN, [id number] LAB OUTSIDE LAB (SEE SCANNED REPORT) PHOSPHORUS-OUTSID E LAB OUTSIDE LAB (SEE SCANNED REPORT) PTH-OUTSIDE LAB OUTS ANÍBAL LAB (SEE SCANNED REPORT) MICROALBUMIN RATIO-OUTSIDE LAB OUTSIDE LA B (SEE SCANNED REPORT) PROTEIN, UA-OUTSIDE LAB OUTSIDE LAB (SEE SCANNED REPORT) HGB 12.3(A) 14.0 - 18.0 G/DL OUTSIDE LAB (SEE SCANNED REPORT) 10/08/2023 Ryan Leyva MD LABORATORY OUTSIDE LAB (SEE SCANNED REPORT) documented in this encounter Advance Directives Latest Code Status on File Code Status Date Activated Date Inactivated Comments Full Code 02/14/2019 10:34 PM 02/20/2019 3:48 PM This order reflects the patients wishes and were consensually agreed upon. Question Answer Comments Discussion of Advance Directives occurred with: Not Discussed Care Teams Corncob Pipe Manufacturing Supervisor Relationship Specialty Start Date End Date Ryan Leyva MD [address] [facility] [place] [address] PCP - General Family Medicine 07/17/22 documented as of this encounter
--- OUTSIDE RECORDS SUMMARY | 2024-01-28 02:45 | External Medical Summary | Summary of Care ---
Author Name Unknown Organization [facility] Address [address] [place] [address] Phone [phone] Care Team Providers Care Assessment Nurse Name Role Phone Ryan Leyva MD Primary Care Provider [phone] [phone] Encounter Details Date Type Department Care Team (Late st Contact Info) Description 10/22/2023 Orders Only Family [facility] [address] [place] [address] Ryan Leyva MD [address] [place] [address] Allergies Active Allergy Reactions Criticality Noted Date Comments Sulfamethoxazole Rash 06/05/2023 Trimethoprim Rash 06/05/2023 documented as of this encounter (statuses as of 10/22/2023) Medications Medication Sig Dispensed Refills Start Date [...] as of this encounter (statuses as of 10/22/2023) Active Problems Problem Noted Date Diagnosed Date [...] as of this encounter (statuses as of 10/22/2023) Resolved Problems Problem Noted Date Diagnosed Date [...] as of this encounter (statuses as of 10/22/2023) Immunizations Name Administration Dates Next Due COVID-19 [...] 8:40 AM EDT Office Visit Family Practice [facility] [address] [place] [address] Audelia Steiner CRNP [address] [place] [address] Pending Results Name Type Priority Associated Diagnoses Date /Time CHEMISTRY-OUTSIDE Lab Routine 024 Health Maintenance Due Date Last Done Comments [...] Directives occurred with: Not Discussed Care Teams Assessment Nurse Relationship Specialty Start Date End Date Ryan Leyva MD [address] [place] [address] PCP - General Family Medicine 07/17/22 documented as of this encounter
--- OUTSIDE RECORDS SUMMARY | 2024-01-28 02:45 | External Medical Summary | Summary of Care ---
Author Name Unknown Organization [facility] Address [address] [place] [address] Phone [phone] Care Team Providers Care Used Car Salesperson Name Role Phone Ryan Leyva MD Primary Care Provider [phone] [phone] Encounter Details Date Type Department Care Team (Late st Contact Info) Description 10/17/2023 Orders Only Family [facility] [address] [place] [address] Ryan Leyva MD [address] [place] [address] Allergies Active Allergy Reactions Criticality Noted Date Comments Sulfamethoxazole Rash 06/05/2023 Trimethoprim Rash 06/05/2023 documented as of this encounter (statuses as of 10/17/2023) Medications Medication Sig Dispensed Refills Start Date [...] as of this encounter (statuses as of 10/17/2023) Active Problems Problem Noted Date Diagnosed Date [...] as of this encounter (statuses as of 10/17/2023) Resolved Problems Problem Noted Date Diagnosed Date [...] as of this encounter (statuses as of 10/17/2023) Immunizations Name Administration Dates Next Due COVID-19 [...] 03/07/2020, 03/18/2019, Additional history exists GFR 10/07/2024 10/15/2023, 09/10, 2023, Additional history exists Lipid [...] Priority Date/Time Associated Diagnosis Comments CHEMISTRY-OUTSIDE Routine 10/15/2023 documented in this encounter Results * (ABNORMAL) CHEMISTRY-OUTSIDE (10/15/2023) Not all results display below - see scan for full detail OUTSIDE LAB (SEE SCANNED REPORT) Comment:SCAN INCLUDES - CBCD , AMYLASE, LIPASE, RENAL FUNCTION PANEL CREATININE-OUTSID E LAB 0.96 0.70 - 1.30 MG/DL OUTSIDE LAB (SEE SCANNED REPORT) EGFR-OUTSIDE LAB >90 >=60 ML/MIN/1.7 3M2 OUTSIDE LAB (SEE SCANNED REPORT) POTASSIUM-OUTSIDE LAB 4.2 [...] LAB OUTSIDE LAB (SEE SCANNED REPORT) HEMOGLOBIN, [id number] LAB OUTSIDE LAB (SEE SCANNED REPORT) PHOSPHORUS-OUTSID E LAB 4.2 2.5 - 4.9 MG/DL OUTSIDE LAB (SEE SCANNED REPORT) PTH-OUTSIDE LAB OUTS ANÍBAL LAB (SEE SCANNED REPORT) MICROALBUMIN RATIO-OUTSIDE LAB OUTSIDE LA B (SEE SCANNED REPORT) PROTEIN, UA-OUTSIDE LAB OUTSIDE LAB (SEE SCANNED REPORT) HGB 12.9(A) 13.5 - 18.0 GM/DL OUTSIDE LAB (SEE SCANNED REPORT) 10/15/2023 Star Schmidt MD LABORATORY OUTSIDE LAB (SEE SCANNED REPORT) documented in this encounter Advance Directives Latest Code Status on File Code Status Date Activated Date Inactivated Comments Full Code 02/14/2019 10:34 PM 02/20/2019 3:48 PM This order reflects the patients wishes and were consensually agreed upon. Question Answer Comments Discussion of Advance Directives occurred with: Not Discussed Care Teams Used Car Salesperson Relationship Specialty Start Date End Date Ryan Leyva MD [address] [place] [address] PCP - General Family Medicine 07/17/22 documented as of this encounter
[2024-01-28] MEDS ORDERED: POLYETHYLENE (MIRALAX) 17 GM PACK PO PRN (03:16)
[2024-01-28] MEDS ORDERED: NITROGLYCERIN SL 0.4 MG/TAB TAB SL PRN (03:16)
[2024-01-28] MEDS ORDERED: HYDROmorphone INJ 0.5 MG/0.5 ML SYR IV PRN (03:16)
[2024-01-28] MEDS ORDERED: FUROSEMIDE 20 MG TAB PO PRN (03:16)
[2024-01-28] MEDS ORDERED: ACETAMINOPHEN 325 MG TAB PO PRN (03:16)
[2024-01-28] MEDS: SODIUM CHLORIDE 0.9% 1,000 ML IV SCH (04:10)
[2024-01-28] MEDS: PIPERACILLIN/TAZOBACTAM 4.5 GM/100 ML BAG IV ONE (04:10)
[2024-01-28] MEDS: VANCOMYCIN HCL 1,250 MG in SODIUM CHLORIDE 0.9% 250 ML IV SCH (05:27)
[2024-01-28] MEDS: PIPERACILLIN/TAZOBACTAM 4.5 GM/100 ML BAG IV SCH (07:44)
--- NOTE | 2024-01-28 08:14 | Communication Note ---
Date of Service: January 28, 2024 Upon review of patient's outpatient [facility] chart, he has had a recent change in insurance to [facility] for Life HMO. [facility] provider's are not in network for this plan. The [facility] Hospitalist team at [facility] follows the same insurance structure as the outpatient clinics. Case was discussed with Dr. Ames with [facility] who has accepted the patient in transfer to his service. PIPER Seymour
--- NOTE | 2024-01-28 08:19 | CT Scan Report ---
Exam(s): CT LEFT FOOT Without Contrast EXAM: CT Left Lower Extremity Without Intravenous Contrast, Foot CLINICAL HISTORY: Reason for exam: left foot chronic wound in doral aspect. TECHNIQUE: Axial computed tomography images of the left foot without intravenous contrast. CTDI is 24.91 mGy and DLP is 388.76 mGy-cm. Automated exposure control was utilized for the study. A dose lowering technique was utilized adhering to the principles of ALARA. COMPARISON: No relevant prior studies available. FINDINGS: Limited examination given shows a modality and lack of contrast. Findings consistent with Charcot neuropathy with advanced degenerative changes in the mid foot. Associated with this is diffuse soft tissue swelling with indistinctness of the subcutaneous fat overlying the residual navicular and cuboid. Findings may relate to ulcer. Underlying osteomyelitis is not excluded. MRI may be helpful in this situation. However, given advanced Charcot neuropathy changes, findings will likely relate to superimposed and overlapping imaging pathologies. Please note that osteomyelitis is not excluded. IMPRESSION: Limited examination given shows a modality and lack of contrast. Findings consistent with Charcot neuropathy with advanced degenerative changes in the mid foot. Associated with this is diffuse soft tissue swelling with indistinctness of the subcutaneous fat overlying the residual navicular and cuboid. Findings may relate to ulcer. Underlying osteomyelitis is not excluded. MRI may be helpful in this situation. However, given advanced Charcot neuropathy changes, findings will likely relate to superimposed and overlapping imaging pathologies. Please note that osteomyelitis is not excluded. Electronically signed by: Dion Maza MD 01/28/24 08:18 AM
--- NOTE | 2024-01-28 08:47 | XRay Report ---
RIGHT FOOT 3 VIEWS CLINICAL HISTORY: Right foot pain and swelling. FINDINGS: 3 views of the right foot are compared to study dated 10/19/[address] scan of the right foot performed the same day 01/27/2024. The skeletal structures are heterogeneously oste openic. No acute fracture is seen. There is severe arthritic change with bony sclerosis, erosions, an cortical collapse seen in the midfoot. Pes planus is observed. There is diffuse soft tissue edema. A therosclerotic calcification is observed in the regional arteries. IMPRESSION: 1. Soft tissue swelling with no acute fracture identified. 2. Severe arthritic change in the midfoot as detailed above, most typical for a Charcot foot. This campos s significantly progressed as compared to 10/19/2022. In the appropriate clinical setting underlying i nfection would be impossible to exclude. Clinical correlation will be essential. Electronically signed by: Jorge Simms M.D. 01/28/2024 8:45 AM
[2024-01-28 09:19] LABS: Basophils # (auto) 0.02 K/uL (0.00-0.20); Basophils % (auto) 0.3 %; Eosinophils % (auto) 4.3 %; Hematocrit (blood only) 38.2 % (42.0-52.0); Hemoglobin 11.7 g/dl (14.0-18.0); Immature Granulocytes # (auto) 0.01 K/uL (0.01-0.20); Immature Granulocytes % (auto) 0.1 %; Lymphocytes # (auto) 0.94 K/uL (1.20-3.40); Lymphocytes % (auto) 13.6 %; Mean Corpuscular Hemoglobin 24.7 pg (25.0-34.0); Mean Corpuscular Hgb Conc 30.6 g/dL (32.0-36.0); Mean Corpuscular Volume 80.8 fL (80.0-100.0); Mean Platelet Volume 9.4 fL (9.4-12.4); Monocytes # (auto) 1.15 K/uL (0.11-0.59); Monocytes % (auto) 16.7 %; Neutrophils # (auto) 4.48 K/uL (1.40-6.50); Platelet Count 121 K/uL (130-400); RDW Coefficient of Variation 15.9 % (11.5-14.5); RDW Standard Deviation 46.5 fL (36.4-46.3); Red Blood Count 4.73 M/uL (4.70-6.10)
[2024-01-28 09:32] LABS: BUN Creatinine Ratio 19.8 (10-20); Creatinine Clr Calc Pharmacy 101.9 ml/min; Est GFR (African American) 95.8 ml/min; Est GFR (Non-African American) 82.6 ml/min; Magnesium 1.8 mg/dl (1.7-2.4); Potassium 4.4 mmol/L (3.5-5.1)
--- NOTE | 2024-01-28 09:40 | Ultrasound Report ---
LEFT LOWER EXTREMITY VENOUS DOPPLER HISTORY: left lower ext swelling. dvt? COMPARISON STUDY: None. FINDINGS: There is normal compressibility, flow, and augmentation within the left lower extremity william p venous system. Mild left inguinal lymphadenopathy. IMPRESSION: No DVT within the left lower extremity. Mild left inguinal lymphadenopathy. ACT 112: Negative or not required by law. Electronically signed by: Mookie Velazquez M.D. 01/28/2024 9:39 AM
[2024-01-28] MEDS: ASPIRIN 325 MG ECTAB PO SCH (10:25)
[2024-01-28] MEDS: cloNIDine HCL 0.1 MG TAB PO SCH (10:25)
[2024-01-28] MEDS: carvediloL 6.25 MG TAB PO SCH (10:25)
[2024-01-28] MEDS: MYCOPHENOLATE MOFETIL 250 MG CAP PO SCH (10:26)
[2024-01-28] MEDS: ZINC SULFATE 220 MG CAPSULE PO SCH (10:26)
[2024-01-28] MEDS: TACROLIMUS 1 MG CAP PO SCH (10:26)
[2024-01-28] MEDS: ROSUVASTATIN CALCIUM 10 MG TAB PO SCH (10:26)
--- NOTE | 2024-01-28 10:43 | Pharmacy Report ---
Pharmacy PK ABX Note - Date of Service January 28, 2024 - Assessment and Plan Assessment 38 year old M receiving Vancomycin for treatment of bilateral foot infections. Blood and foot wound cultures pending. Patient has history of IV drug abuse and renal transplant. Currently on im munosuppressants. Also on Zosyn. Today is day 2 of antimicrobial therapy. Plan Vancomycin * Loading dose: 2000 mg IV x 1 given in ED last night. * Maintenance dose: 1250 mg IV every 12 hours * Regimen is predicted to achieve target AUC/TU of 400-600 mg/L.hr * Trough level ordered for: 01/28 with AM labs prior to dose at 6 am. Pharmacy will continue to follow and will adjust dose/frequency as necessary. Thank you. Pharmacy has transitioned to AUC monitoring for vancomycin. AUC/TU is the preferred PK/PD target and is associated with decreased risk of nephrotoxicity compared to traditional trough targets.
[2024-01-28] MEDS: PREGABALIN 75 MG CAP PO SCH (10:47)
[2024-01-28] MEDS: clonazePAM 0.5 MG TAB PO SCH (10:47)
[2024-01-28] MEDS: METHADONE ORAL SOLN 2 MG/ML PO SCH (10:47)
[2024-01-28] MEDS: PATIENT'S OWN CONTROLLED MED 1 PO SCH (10:48)
--- NOTE | 2024-01-28 13:11 | Hospitalist Progress Note ---
Date of Service January 28, 2024 Assessment & Plan (1) Cellulitis of foot, right: Plan: Previous cultures have grown MSSA. He is currently on vancomycin and Zosyn, day 1. Podiatry consultation is pending. (2) Osteomyelitis of ankle: Plan: Abnormal CT results involving right ankle. Infectious disease consultation requested. Currently on vancomycin and Zosyn, day 1 (3) Charcot arthropathy: Plan: Bilateral feet foot deformities. Podiatry consultation requested (4) Pancreas transplant status: Plan: He no longer suffers from type 1 diabetes and is not taking any medications at this time (5) Renal transplant recipient: Plan: Previous end-stage renal disease on peritoneal dialysis and hemodialysis. Creatinine is currently normal (6) Type I diabetes mellitus: Plan: Treated with pancreatic transplantation. He no longer takes any diabetic medications (7) End stage renal disease: Plan: Renal transplant recipient. 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 Continue current medical management Plan To be determined Admission and Anticipated Discharge Date Admission Date: January 28, 2024 Subjective Alert and oriented. No distress. Venous Doppler of the left leg negative for DVT. Right leg venous Doppler is pending. Podiatry consultation and infectious disease consultation pending. CT scan does reveal evidence of osteomyelitis involving the right ankle. Previous foot cultures grew MSSA. He is currently on vancomycin and Zosyn, day 1. He is status post renal transplant and now has a normal creatinine level and no longer is on any diabetic medication. Review of Systems 2 Review of Systems: Constitutionalno fever or chills ENTno blurred vision, no double vision, no epistaxis, no sore throat Respiratoryno cough, no wheezing, no shortness of breath Cardiacno palpitations, no chest pain, no syncope Elisabeth nausea, vomiting, diarrhea, melena, hematochezia GUno urinary retention, no urinary incontinence, no dysuria, no hematuria Musculoskeletalchronic bilateral foot pain. Ulceration with swelling noted on plantar surface of the right foot. Bilateral Charcot foot deformities Skinno bruising, no rashes, no pruritus Neurono isolated weakness, no paresthesia Psychno depression, no anxiety Physical Exam 2 Physical Exam: General-alert and oriented x3, no fever, no chills HEENT-head atraumatic and normocephalic, pupils equal and reactive to light, extraocular muscles intact Neck-no lymphadenopathy or thyromegaly, trachea midline Chest-clear to auscultation. No rales, wheezing or rhonchi Cardiac-regular rate and rhythm, normal S1 and S2 Abdomen-normal bowel sounds, no hepatosplenomegaly Extremities-bilateral Charcot foot deformities. Superficial ulceration on the plantar surface of the right foot with underlying erythema and edema Neuro-cranial nerves II through XII intact, motor and sensory function within normal limits, strength symmetrical, no focal deficits Psych-normal affect, normal mood Results & Data Results & Data Vital Signs (Past 12 Hours) Vital Signs Temp Pulse Pulse Resp BP Pulse Ox O2 Del Method 01/28/24 11:37 36.6 C 69 18 161/81 H 96 Room Air 01/28/24 07:52 36.7 C 66 18 162/85 H 95 Room Air 01/28/24 03:29 36.5 C 66 16 155/89 H 99 Room Air 01/28/24 01:18 63 01/28/24 01:15 63 12 158/83 H 98 Room Air Laboratory Results 01/28/24 08:49 01/28/24 08:49 PG Care Time/CCT Total # of Minutes Spent Total Time Spent with Patient: Total time spent is greater than 50% in coordination of care (as documented) at patient's floor/unit and/or counseling patient: Coding Level of Care Code 42980 SUB INP/OBS CARE 3/50MIN Diagnoses Cellulitis of foot, right L03.115 Osteomyelitis of ankle M86.9 Charcot arthropathy M14.60 Pancreas transplant status Z94.83 Renal transplant recipient Z94.0 Type I diabetes mellitus E10.9 End stage renal disease N18.6 Immunosuppression due to drug therapy D84.821; Z79.899
--- NOTE | 2024-01-28 14:19 | Infectious Disease Consult ---
Date of Service January 28, 2024 Telehealth Information I performed this visit using a real-time telehealth connection between my location and the patients location ([facility]). After connecting through interactive tele-video, patient was identified by name and date of and/or wristband check.Patient (or authorized healthcare service center representative) was informed that this was a telemedicine visit and it was being conducted confidentially over secure lines. My office door was closed and no o ne else was present in the room with me.Patient (or authorized healthcare service center representative) provided consent to proceed with the visit, expressed an understanding of privacy and security of the telemedicine visit, and gave permission to have a hospital service center representative in the room in order to assist with the visit and to conduct portions of the visit, as needed. I informed the patient (or authorized healthcare service center representative) that I reviewed their record and presented the opportunity for them to ask any questions regarding the visit today. The patient agreed to participate. Assessment & Plan (1) Cellulitis of foot, right: Plan: At a minimum, the patient seems to have cellulitis of the R foot. There may be contralateral infection as well. Consider MRI (await Podiatry impression). Please order a MRSA screen. If the MRSA screen is negative (and the patient is not septic/bacteremic), consider holding vancomycin. Final plan to be determined after Podiatry consultation. History of Present Illness History of Present Illness The patient is s/p KP transplant and has a history of LE infections (last required transfer to [facility] [place] in [place]). He presents with foot swelling around the site of known foot wound. Podiatry consultation is pending. Allergies Allergy/AdvReac Type Severity Reaction Status Date / Time sulfamethoxazole Allergy Intermediate Rash Verified 01/27/24 23:01 [From Bactrim] trimethoprim [From Bactrim] Allergy Intermediate Rash Verified 01/27/24 23:01 Home Medications Medication Instructions Recorded Confirmed Type clonazepam 0.5 mg tablet 0.5 mg PO BID Anxiety 11/03/18 01/27/24 History mycophenolate mofetil 250 mg 750 mg PO BID 10/20/22 01/27/24 History capsule rosuvastatin 10 mg tablet 10 mg PO DAILY 10/20/22 01/27/24 History carvedilol 6.25 mg tablet (Coreg) 6.25 mg PO BID #20 tabs 12/08/22 01/27/24 Rx aspirin 325 mg tablet 325 mg PO DAILY 12/19/22 01/27/24 History tacrolimus 1 mg capsule, 1 mg PO QAM 06/05/23 01/27/24 History immediate-release clonidine HCl 0.1 mg tablet 0.2 mg PO BID 06/11/23 01/27/24 History zinc sulfate 50 mg zinc (220 mg) 220 mg (4.4 x 50 mg zinc (220 mg)) 06/12/23 01/27/24 Rx capsule (Orazinc) PO QAM #30 caps furosemide 20 mg tablet 20 mg PO QAM PRN NEEDED PER 09/18/23 01/27/24 History [facility] methadone 10 mg/5 mL oral solution 105 mg PO DAILY 09/18/23 01/27/24 History pregabalin 75 mg capsule 75 mg PO TID 09/18/23 01/27/24 History silver sulfadiazine 1 % topical 1 applic topical DAILY 09/18/23 01/27/24 History cream (Silvadene) tacrolimus 0.5 mg capsule, 0.5 mg PO QPM 01/27/24 01/27/24 History immediate-release Patient History Medical History Leukocytosis Critical illness polyneuropathy Pulmonary edema Current vaping on some days Substance abuse History of seizure seizure-like activity 02/14/2019 in setting of severe hyperglycemia (patient states he missed dialysis/insulin dose), DKA, confusion- lifeflighted to [place]/intubated/placed on ventilator. DKA managed with insulin drip on admission. EEG with no seizure activity noted. Neurology consulted and initially started patient on prophylactic Keppra but suspected seizure was complication of hyperglycemia and recommended weaning off anticonvulsants/advised no further neurology workup needed. Per patient, medication/dialysis compliance since discharge with glucoses in the range on 100's-200's on self-checks. Peritonitis currently on intraperitoneal abx Withdrawal from opioids Nephrotic syndrome Diabetes mellitus type I Hypertension Surgical History H/O eye surgery Hx of tonsillectomy Hx of tooth extraction Hx of vitrectomy B/L; right vitrectomy: 05/26/18: LMA#5 at [facility] [place] Peritoneal dialysis catheter in place Family History Grandfather (Maternal) Diabetes Grandfather (Paternal) Diabetes Grandmother (Paternal) Diabetes Grandmother (Maternal) Diabetes Aunt Diabetes Uncle Diabetes Father Hypertension Brother Hypertension Social History Smoking Status: Former smoker Tobacco Type: Cigarettes Second Hand Exposure: No; Do You Dip or Chew Tobacco: No; Tobacco Cessation Education Requested by Patient: No Hx Alcohol Use: No Hx Substance Use: No Preferred Language: Azerbaijani Communication Ability: Effective Communication Ability Comment: sedated, arouses easily Visual Impairment: Severely Limited Hearing Ability: Normal Executive Personal Assistant Required: No Beliefs That Will Affect Care: None Current Living Situation: Family Current Living Situation Comment: aide help throughout the week current occupational status: employed and unemployed Other Information That Helps Us Care for You: No Feels Safe at Home: Yes Safety Concerns: Feels Safe At This Time Childhood Exposure to Second-Hand Smoke: No Diet: regular Diet Comment: diabetic caffeine: Yes during the past year weight has: other Dental Care, Regularly: Yes Physical Activity Frequency: Daily Seatbelt Use: always Sunscreen Use: Yes Assistive Devices: Wheelchair Review of Systems As reviewed in HPI; a complete ROS was otherwise negative Physical Exam Vitals: see EMR Exam limited due to constraints of telemedicine Gen/Constitutional: appears at stated age, NAD, nontoxic Head: AT, NC Eyes: sclera anicteric, no conjunctival injection ENT: MMM, trachea midline Card: appears to be well-perfused Resp: not tachypneic, nml effort, symmetric chest rise, no accessory muscle use Derm: no visible diaphoresis, no visible rash, no visible jaundice Results & Data Vital Signs (Past 12 Hours) Vital Signs Temp Pulse Resp BP Pulse Ox O2 Del Method 01/28/24 11:37 36.6 C 69 18 161/81 H 96 Room Air 01/28/24 07:52 36.7 C 66 18 162/85 H 95 Room Air 01/28/24 03:29 36.5 C 66 16 155/89 H 99 Room Air Laboratory Results SEE EMR Diagnostic Findings SEE EMR
[2024-01-28] MEDS: TAMSULOSIN HCL 0.4 MG CAP PO SCH (14:40)
--- NOTE | 2024-01-28 16:14 | Podiatry Consultation ---
Date of Consultation January 28, 2024 Assessment & Plan (1) Charcot arthropathy: (2) Wound of lower extremity: Encounter type: initial encounter Laterality: right Qualified Code(s): S81.801A - Unspecified open wound, right lower leg, initial encounter (3) Cellulitis of foot, right: (4) Foot abscess, left: (5) Charcot's joint of left foot: (6) Chronic ulcer of right foot with fat layer exposed: Plan patient was examined and evaluated. We discussed at length etiology and treatment of his bilateral ulcerations and Charcot deformities. This right foot is now more concerning on the left, though the CT without contrast is not sufficiently helpful to rule out an abscess underlying the ulcer. There is some palpable fluctuance though this is hard to say if this is his baseline or a new change. An MRI would be helpful in establishing if there is a drainable abscess that requires surgical or vegan. Otherwise, he may need 2 weeks of oral or IV antibiotics empirically for treatment of the cellulitis. Long-term, he would either require planing of the cuboid, which is more simple though temporary in nature versus a foot reconstruction for the underlying Charcot deformity. Either way, evidence of worsening arterial blood flow, he may not be able to heal either and may benefit more from a more proximally be Tatian with this history of concerns. In MRI and ultrasound were ordered today to evaluate these further. These will help further surgical decision making. We will continue to follow. History of Present Illness Reason for Consultation: Right foot abscess/cellulitis; B/L Charcot Attending Physician: Craig Ames MD History of Present Illness patient seen at bedside. He was admitted recently for worsening right lower extremity cellulitis and a large abscess formation. He does have a long history of bilateral lower extremity concerns. This mostly started around one year ago when he noticed changes in the shape of his left foot. He was treated for potential infection and Charcot deformity around the first of this year. after his last hospitalization, he was sent to [facility] where he was going to seek more definitive care which she had lined up, though he states he has been walking in custom boots without any further surgical planning. At some point, he has also seen Dr. Beto Mendez here locally, who used to provide care at the hospital but is no longer on staff. Since that time, his right foot has developed increasing pain underneath its ulceration. The left ulcer is still present as well, which the patient states his regular foot doctor states is "working its way out". He believes that both ulcerations have been improving, though are still present and now he presented with worsening symptoms of infection overall. Specifically, disc and certainly, he has developed increasing pain when he has been mostly neuropathic. He denies any recent medical history change. Allergies Allergy/AdvReac Type Severity Reaction Status Date / Time sulfamethoxazole Allergy Intermediate Rash Verified 01/27/24 23:01 [From Bactrim] trimethoprim [From Bactrim] Allergy Intermediate Rash Verified 01/27/24 23:01 Home Medications Medication Instructions Recorded Confirmed Type clonazepam 0.5 mg tablet 0.5 mg PO BID Anxiety 11/03/18 01/27/24 History mycophenolate mofetil 250 mg 750 mg PO BID 10/20/22 01/27/24 History capsule rosuvastatin 10 mg tablet 10 mg PO DAILY 10/20/22 01/27/24 History carvedilol 6.25 mg tablet (Coreg) 6.25 mg PO BID #20 tabs 12/08/22 01/27/24 Rx aspirin 325 mg tablet 325 mg PO DAILY 12/19/22 01/27/24 History tacrolimus 1 mg capsule, 1 mg PO QAM 06/05/23 01/27/24 History immediate-release clonidine HCl 0.1 mg tablet 0.2 mg PO BID 06/11/23 01/27/24 History zinc sulfate 50 mg zinc (220 mg) 220 mg (4.4 x 50 mg zinc (220 mg)) 06/12/23 01/27/24 Rx capsule (Orazinc) PO QAM #30 caps furosemide 20 mg tablet 20 mg PO QAM PRN NEEDED PER 09/18/23 01/27/24 History [facility] methadone 10 mg/5 mL oral solution 105 mg PO DAILY 09/18/23 01/27/24 History pregabalin 75 mg capsule 75 mg PO TID 09/18/23 01/27/24 History silver sulfadiazine 1 % topical 1 applic topical DAILY 09/18/23 01/27/24 History cream (Silvadene) tacrolimus 0.5 mg capsule, 0.5 mg PO QPM 01/27/24 01/27/24 History immediate-release Patient History Medical History Leukocytosis Critical illness polyneuropathy Pulmonary edema Current vaping on some days Substance abuse History of seizure seizure-like activity 02/14/2019 in setting of severe hyperglycemia (patient states he missed dialysis/insulin dose), DKA, confusion- lifeflighted to [place]/intubated/placed on ventilator. DKA managed with insulin drip on admission. EEG with no seizure activity noted. Neurology consulted and initially started patient on prophylactic Keppra but suspected seizure was complication of hyperglycemia and recommended weaning off anticonvulsants/advised no further neurology workup needed. Per patient, medication/dialysis compliance since discharge with glucoses in the range on 100's-200's on self-checks. Peritonitis currently on intraperitoneal abx Withdrawal from opioids Nephrotic syndrome Diabetes mellitus type I Hypertension Surgical History H/O eye surgery Hx of tonsillectomy Hx of tooth extraction Hx of vitrectomy B/L; right vitrectomy: 05/26/18: LMA#5 at [facility] [place] Peritoneal dialysis catheter in place Family History Grandfather (Maternal) Diabetes Grandfather (Paternal) Diabetes Grandmother (Paternal) Diabetes Grandmother (Maternal) Diabetes Aunt Diabetes Uncle Diabetes Father Hypertension Brother Hypertension Social History Smoking Status: Former smoker Tobacco Type: Cigarettes Second Hand Exposure: No; Do You Dip or Chew Tobacco: No; Tobacco Cessation Education Requested by Patient: No Hx Alcohol Use: No Hx Substance Use: No Preferred Language: Estonian Communication Ability: Effective Communication Ability Comment: sedated, arouses easily Visual Impairment: Severely Limited Hearing Ability: Normal Rod Buster Helper Required: No Beliefs That Will Affect Care: None Current Living Situation: Family Current Living Situation Comment: aide help throughout the week current occupational status: employed and unemployed Other Information That Helps Us Care for You: No Feels Safe at Home: Yes Safety Concerns: Feels Safe At This Time Childhood Exposure to Second-Hand Smoke: No Diet: regular Diet Comment: diabetic caffeine: Yes during the past year weight has: other Dental Care, Regularly: Yes Physical Activity Frequency: Daily Seatbelt Use: always Sunscreen Use: Yes Assistive Devices: Wheelchair Review of Systems Review of Systems: All systems reviewed & are unremarkable except as noted in HPI & below Constitutional: + fever, + fatigue and + weakness Eyes: no problem reported Ear, Nose, Mouth, Throat: no problem reported Respiratory: no problem reported Cardiovascular: + edema, + calf pain and + claudication Gastrointestinal: no problem reported Genitourinary: no problem reported Musculoskeletal: + deformity, + swelling, + muscle weakne ss and + problem reported Integumentary: + non-healing lesions, + skin ulcer and + erythema Neurologic: + generalized weakness and + numbness Psychiatric: no behavioral changes and no problem reported Endocrine: no problem reported Results & Data Vital Signs (Past 12 Hours) Vital Signs Temp Pulse Resp BP Pulse Ox O2 Del Method 01/28/24 11:37 36.6 C 69 18 161/81 H 96 Room Air 01/28/24 07:52 36.7 C 66 18 162/85 H 95 Room Air
--- NOTE | 2024-01-28 19:28 | Magnetic Resonance Report ---
MR foot RT w/o con CLINICAL HISTORY: Right foot abscess? TECHNIQUE: Multiplanar multisequence MR images of the right foot were obtained. Comparison: Comparison is made to right foot CT 01/27/2024 FINDINGS: Bones: Prominent bony edema is seen in the midfoot and first distal metatarsal. Tendons: Unremarkable Soft tissue: Prominent soft tissue edema is seen without evidence of drainable fluid collection. Ther e is an ill-defined T2 hyperintensity in the plantar foot at the level of the cuboid. IMPRESSION: 1. No evidence of abscess. Possible small developing phlegmon in the plantar foot. 2. Edema in the bones of the midfoot likely represents Charcot arthropathy with or without superimpo sed osteomyelitis. ACT 112: Negative or not required by law. Electronically signed by: Greg Barrera M.D. 01/28/2024 7:26 PM
--- NOTE | 2024-01-28 19:48 | Ultrasound Report ---
US arterial duplex LE RT CLINICAL HISTORY: B/L non healing wounds TECHNIQUE: Real-time grayscale and color and spectral Doppler ultrasound imaging of the right lower e xtremity arteries was performed. calculated based on NASCET criteria. COMPARISON: None available at the time of this dictation. FINDINGS: RIGHT: Common femoral artery: Triphasic waveforms. Peak systolic velocity (PSV) 118 cm/s. Deep femoral artery: Triphasic waveforms. PSV 83 cm/s. Superficial femoral artery: Triphasic waveforms. PSV 237 cm/s. Popliteal artery: Monophasic waveforms. PSV 150 cm/s. Anterior tibial artery: Monophasic waveforms. PSV 197 cm/s. Posterior tibial artery: Monophasic waveforms. PSV 171 cm/s. Peroneal artery: Monophasic waveforms. PSV 207 cm/s. Dorsalis pedis: Monophasic waveforms. PSV 250 cm/s. ANKLE/BRACHIAL INDEX (CARLOS ABLERTO): Brachial: Right: 153 mmHg. Left: Not measured. Ankle (dorsalis pedis): Right: 188 mmHg. Left: 187 mmHg. Ankle (posterior tibial): Right: not measured. Left: 183 mmHg. Ankle/brachial index: Right: 1.23, Left: 1.22. Reference ranges: Normal Ankle/Brachial Index (CARLOS ALBERTO) 1.0-1.4; 0.91-0.99 borderline; < or = 0.9 abnormal (0.7-0.89 mild, 0.51-0.69 moderate, < or = 0.5 severe peripheral arterial disease). Normal Toe/Brachial Index (TBI) > or = 0.6; < 0.6 abnormal (0.34-0.59 mild, 0.12-0.34 moderate, < or = 0.11 severe peripheral arterial disease). IMPRESSION: 1. Elevated velocities an monophasic waveforms are seen in the right lower extremity compatible with performed artery disease. 2. Normal ankle-brachial indices. ACT 112: Negative or not required by law. Electronically signed by: Greg Barrera M.D. 01/28/2024 7:46 PM
[2024-01-28] MEDS: TACROLIMUS 0.5 MG CAP PO SCH (20:35)
[2024-01-28] MEDS ORDERED: Nursing to Pharmacy Communication SCH (21:15)
[2024-01-29 05:45] LABS: Basophils # (auto) 0.02 K/uL (0.00-0.20); Basophils % (auto) 0.3 %; Eosinophils # (auto) 0.39 K/uL (0.00-0.50); Eosinophils % (auto) 6.5 %; Hemoglobin 12.1 g/dl (14.0-18.0); Immature Granulocytes # (auto) 0.01 K/uL (0.01-0.20); Immature Granulocytes % (auto) 0.2 %; Lymphocytes # (auto) 1.31 K/uL (1.20-3.40); Lymphocytes % (auto) 21.9 %; Mean Corpuscular Hemoglobin 24.5 pg (25.0-34.0); Mean Corpuscular Volume 79.1 fL (80.0-100.0); Mean Platelet Volume 9.1 fL (9.4-12.4); Monocytes # (auto) 0.98 K/uL (0.11-0.59); Monocytes % (auto) 16.4 %; Neutrophils # (auto) 3.28 K/uL (1.40-6.50); Neutrophils % (auto) 54.7 %; Platelet Count 140 K/uL (130-400); RDW Coefficient of Variation 15.9 % (11.5-14.5); RDW Standard Deviation 45.5 fL (36.4-46.3); Red Blood Count 4.93 M/uL (4.70-6.10); White Blood Count 5.99 K/ul (4.8-10.8)
[2024-01-29 05:56] LABS: BUN Creatinine Ratio 16.3 (10-20); Calcium 9.1 mg/dl (8.6-10.3); Creatinine Clr Calc Pharmacy 83.7 ml/min; Est GFR (African American) 75.6 ml/min; Est GFR (Non-African American) 65.2 ml/min; Potassium 4.4 mmol/L (3.5-5.1)
[2024-01-29] MEDS: VANCOMYCIN LEVEL SCH (06:04)
--- NOTE | 2024-01-29 07:56 | Pharmacy Report ---
Pharmacy PK ABX Note - Date of Service January 29, 2024 - Assessment and Plan Assessment 01/28: Day 3 of vancomycin + pip/tazo Staph species growing in prelim foot culture, positive MRSA nasal swab Podiatry/ID recommending MRI to rule out drainable abscess Vanc level this AM resulted at 18.8 mcg/mL. Predicted to exceed target AUC/TU at steady state. Will decrease vanco dose starting this evening. 01/27: 38 year old M receiving Vancomycin for treatment of bilateral foot infections. Blood and foot wound cultures pending. Patient has history of IV drug abuse and renal transplant. Currently on immunosuppressants. Also on Zosyn. Today is day 2 of antimicrobial therapy. Plan Vancomycin * Change to 1000 mg IV q12h * This dose is predicted to achieve target AUC/TU of 400-600 mg/L.hr * Predicted AUC at steady state: 576 mg/L.hr * Will repeat level in the next 48-72 hours if therapy is continued and/or change in patient clinical status Pip-tazo * 4.5 g IV q8h (ext infusion) Pharmacy will continue to follow and will adjust dose/frequency as necessary. Thank you.
[2024-01-29 07:57] VITALS: RESP 16; TEMP 97.9
[2024-01-29 11:54] VITALS: BP 160/87; O2SAT 96
--- NOTE | 2024-01-29 12:38 | Discharge Summary ---
Discharge Summary Date of Service January 29, 2024 Principal Dx & Hospital Course #1 = Principal Diagnosis (1) Cellulitis of foot, right: MRSA isolated. No evidence of abscess. Treated while hospitalized with vancomycin and Zosyn. He is allergic to Bactrim. He will be discharged on linezolid 600 mg twice daily. Podiatry consultation appreciated. (2) Osteomyelitis of ankle: Abnormal CT results involving right ankle. Infectious disease consultation appreciated. Treated while hospitalized with vancomycin and Zosyn. He will be discharged on oral linezolid since he is allergic to Bactrim for the MRSA infection (3) Charcot arthropathy: Bilateral feet foot deformities. Podiatry consultation appreciated. (4) Pancreas transplant status: He no longer suffers from type 1 diabetes and is not taking any medications at this time (5) Renal transplant recipient: Previous end-stage renal disease on peritoneal dialysis and hemodialysis. Creatinine is currently normal (6) Type I diabetes mellitus: Treated with pancreatic transplantation. He no longer takes any diabetic medications (7) End stage renal disease: Renal transplant recipient. He no longer requires dialysis (8) Immunosuppression due to drug therapy: Due to history of pancreatic transplant and renal transplant. Continue current medical management Plan Home today, January 28, on oral linezolid therapy. He will follow-up with his primary care provider as soon as possible and also with podiatry. Admission HPI Per Admitting Provider 38-year-old male diabetic Charcot foot, patient is supposed to be on wheelchair but currently using crutches to walk short distances, hypertension history of type 1 diabetes status post pancreas transplant, s/p kidney transplant, hepatitis C virus infection cured after anti viral drug therapy, generalized anxiety disorder, history of drug abuse, on methadone lives alone comes because of bilateral foot infection. Patient was in the hospital in September with left lower extremity cellulitis and sepsis. Podiatry drained at bedside left foot blister. Because of his multiple medical problems patient was transferred to [facility]. Patient states at [facility] he was treated with antibiotics. Completed the course of antibiotics. During last admission was also found to have DVT in left lower extremity and patient states is no longer on anticoagulation. Patient having pain and swelling bilateral foot and was worried about infection and came to the hospital today. Denies any fevers. Ambulating with the crutches. Family helps him. Denies any headache. No dizziness. No runny nose or sore throat. No blurred visions. No cough. No difficulty swallowing. No chest pain or shortness of breath. No nausea. No abdominal pain. Normal bowel and bladder movements. Hemodynamics are okay currently. Past medical history. As mentioned above Past surgical history. HC reposition peritoneal dialysis catheter . S/p pancreas transplant. S/p kidney transplant. Partial removal of right eye fluid. Tonsillectomy. Surgical removal of erupted tooth. Social history. Snuff tobacco. No alcohol use. No drug use. Family history. Brother has hypertension. Father has hypertension. Lung cancer. Mother from urosepsis. Diabetes in the family. Discharge Exam General-alert and oriented x3, no fever, no chills HEENT-head atraumatic and normocephalic, pupils equal and reactive to light, extraocular muscles intact Neck-no lymphadenopathy or thyromegaly, trachea midline Chest-clear to auscultation. No rales, wheezing or rhonchi Cardiac-regular rate and rhythm, normal S1 and S2 Abdomen-normal bowel sounds, no hepatosplenomegaly Extremities-bilateral Charcot foot deformities. Superficial ulceration on the plantar surface of the right foot with underlying erythema and edema Neuro-cranial nerves II through XII intact, motor and sensory function within normal limits, strength symmetrical, no focal deficits Psych-normal affect, normal mood Discharge Plan Discharge Items Patient Disposition: Home - Self-Care Reason For Visit: B/L FOOT INFECTION Discharge Diagnosis: Bilateral foot cellulitis, MRSA infection Condition on Discharge: Good Activity: Resume your previous activity Non-emergency contact: Primary Care Provider Call non-emergency contact if: your symptoms worsen Follow-up/Referrals: Ryan Leyva MD [Primary Care Provider] - Diet: Regular Addtl Attending Provider Instructions: Take linezolid antibiotic twice daily until further notice. See primary care provider soon as possible. Pending Studies at Discharge: No Stand-Alone Forms: My [employer] ([facility]), Smoking Cessation Medications and DC Order Prescriptions: New linezolid 600 mg tablet 600 mg PO BID 10 Days Qty: 20 0RF tamsulosin 0.4 mg Capsule 0.4 mg PO QAM Qty: 0 0RF Continued aspirin 325 mg tablet 325 mg PO DAILY clonazepam 0.5 mg tablet 0.5 mg PO BID mycophenolate mofetil 250 mg capsule 750 mg PO BID Rx Instructions: 3 caps (250 each cap) BID rosuvastatin 10 mg tablet 10 mg PO DAILY Hold Instructions: Resume on 06/20/23. Hold until you are completed with your IV antibiotic therapy carvedilol [Coreg] 6.25 mg tablet 6.25 mg PO BID Qty: 20 2RF Rx Instructions: must administer with a meal/food tacrolimus 1 mg Capsule 1 mg PO QAM Hold Instructions: Resume on 07/10/23. Hold until directed by your transplant team clonidine HCl 0.1 mg tablet 0.2 mg PO BID Rx Instructions: This dose is per Patient zinc sulfate [Orazinc] 50 mg zinc (220 mg) Capsule 220 mg PO QAM Qty: 30 0RF silver sulfadiazine [Silvadene] 1 % Cream 1 applic TOPICAL DAILY Rx Instructions: apply a 1.5 mm thickness methadone 10 mg/5 mL Solution 105 mg PO DAILY furosemide 20 mg tablet 20 mg PO QAM PRN (Reason: NEEDED PER [facility]) pregabalin 75 mg capsule 75 mg PO TID tacrolimus 0.5 mg capsule 0.5 mg PO QPM Rx Instructions: This dose is per patient. Discharge Orders: Discharge Order (Routine); Ordered 01/29/24 Ordered By: Craig Ames Admission Data Admit Date/Time: 01/28/24 02:04 Attending Provider: Craig Ames Admit Provider: Ruslan Lees Primary Care Provider: Ryan Leyva Other Providers: Ruslan Lees; Angel Martino; Johnny Alicea; Skye Samson; Gio Multani I.; Palomo Mccoy II; Radha Boyd; Zi Elias; Craig Jenkins; Naeem Lou Hospital Stay Data Consultations 01/27/24 23:53 ED Decision to Admit Stat 01/28/24 08:20 Consult Podiatry Routine 01/28/24 09:00 Consult Infectious Diseases Routine Diagnostic Imagining Performed 01/27/24 21:43 US venous doppler LE RT Stat 01/27/24 22:22 CT foot RT wo con Stat 01/28/24 03:16 CT foot LT wo con Routine US venous doppler LE LT Routine 01/28/24 13:15 MRI Foot [MR foot RT w/o con] Routine 01/28/24 13:16 US arterial duplex LE RT Routine Pending Results Patient Have Any Pending Studies at Discharge: No Discharge Instructions Given to Patient (Per Discharging Provider) Take linezolid antibiotic twice daily until further notice. See primary care provider soon as possible. Total Time Total Time Spent Total Time Spent (In Minutes): 50 minutes Coding Level of Care Code 20145 INP/OBS DISCH >30 MIN Diagnoses Cellulitis of foot, right L03.115 Osteomyelitis of ankle M86.9 Charcot arthropathy M14.60 Pancreas transplant status Z94.83 Renal transplant recipient Z94.0 Type I diabetes mellitus E10.9 End stage renal disease N18.6 Immunosuppression due to drug therapy D84.821; Z79.899
[2024-01-29 14:08] VITALS: PULSE 70
[2024-01-29] MEDS ORDERED: MUPIROCIN 2% OINT 22 GM TUBE EXT SCH (21:00)
[2024-01-29] MEDS ORDERED: VANCOMYCIN HCL 1,000 MG in SODIUM CHLORIDE 0.9% 250 ML IV SCH (22:00)
== END 2024-01-29 14:31 | disposition home or self-care (01) ==
LOC: ED 20:25 → 2N 01-28 02:04 → INTOOBSV 01-28 02:04 → SUATTDRO 01-28 02:04 → 2N 01-28 02:50

== ENCOUNTER 2024-08-20 15:25 | Inpatient (IN) ==
--- NOTE | 2024-08-20 16:30 | Emergency Department Note ---
Impression & Plan Neutropenia ED Provider Note Diagnosis: Neutropenic, left foot osteomyelitis Disposition: Admission CHIEF COMPLAINT: Abnormal outpatient blood work HPI: Patient is a 38-year-old male presenting with complaint of reported abnormal CBC as an outpatient. Patient states that he feels his normal self and has not noticed any changes. Patient states if he was not told that his blood work was abnormal he would not of seek medical attention today. Patient denies any fevers or chills. Patient states he is currently on Zosyn for a wound to his left foot and osteomyelitis. Patient follows with the wound clinic. Patient states he has not noticed any drainage from the wound. PAST MEDICAL HISTORY: See Below PAST SURGICAL HISTORY: See Below SOCIAL HISTORY: See Below HOME MEDICATIONS: See Below ALLERGIES: See Below VITALS: See Below PHYSICAL EXAMINATION: GENERAL: Well appearing, well nourished, NAD, non-toxic. EYE EXAM: Normal conjunctiva. OROPHARYNX: Moist mucus membranes. Grossly normal dentition. NECK: Supple, LUNGS: Clear to auscultation. Normal chest wall mechanics. HEART: NSR ABDOMEN: Abdomen soft, non-tender, normo-active bowel sounds, no masses, no rebound or guarding BACK: No CVA TTP. SKIN: No rashes and no bruising. UPPER EXTREMITIES: Upper extremities are grossly normal LOWER EXTREMITIES: Left foot, small breakage of skin no surrounding cellulitis no discharge present NEURO EXAM: A&O x3,, normal speech, moves all 4 extremities PSYCH: Cooperative MEDICAL DECISION MAKING: History obtained from: Patient ER Course: Patient is a 38-year-old male presenting with complaint of abnormal outpatient blood work. Patient currently being treated with IV Zosyn for left foot osteomyelitis. Patient states that it has been doing well and has not noticed any increased redness or drainage from the left foot. Patient on bloodwork today shows leukopenia and neutropenia. Patient upon review of prior blood work has not had neutropenia previously. Patient not on any reported chemotherapy. Patient will be admitted for further treatment evaluation with the hospital service. Labs (independently interpreted) are significant for: Neutropenic Consultants: Hospitalist Chronic conditions affecting care: Left foot osteomyelitis on PICC line IV antibiotics Triage Nursing notes reviewed and agree them. Vital Signs: reviewed and remarkable for: no significant abnormalities Past Med/Surg History Problem List (Updated 08/20/24 @ 22:24 by Jean Garcia DO) Neutropenia (Acute) Hyperlipidemia Ulcer of right foot Thrombocytopenia History of substance abuse History of simultaneous kidney and pancreas transplant Immunosuppressed status Cardiac murmur Neutropenia Osteomyelitis of left foot History of renal transplant Wound of lower extremity Charcot arthropathy of midfoot Chronic venous insufficiency (Chronic) Venous stasis ulcers (Acute) Uncontrolled hypertension Cellulitis (Acute) PAD (peripheral artery disease) (Chronic) Diabetic peripheral neuropathy (Chronic) Anxiety Anemia Prolonged Q-T interval on ECG ESRD (end stage renal disease) Hepatitis C Gastroparesis Diabetic retinopathy of both eyes (Chronic) Medical History Wound of lower extremity Venous stasis ulcers hx DKA (diabetic ketoacidosis) (~2019) hx, 2019 Diabetic retinopathy of both eyes Diabetic peripheral neuropathy Chronic venous insufficiency Cellulitis hx in right foot/leg and left foot/leg per pt Acute hypoxemic respiratory failure (~2019) hx, 2019, w/pneumonia; no current breathing issues per pt. Hx of deep venous thrombosis (~09/2023) 09/18/23, previously on eliquis History of anemia no recent issues Anxiety Gastroparesis hx, no recent issues Hx of hepatitis C sometime prior 2020, had tx and "cured" PAD (peripheral artery disease) History of pneumonia (~2019) 2019, no recent issues Hx of sepsis (~09/2023) 09/2023, hospitalized [facility]; no current issues AV (arteriovenous fistula) left fistula Limb alert care status left arm Chronic ulcer of right foot with fat layer exposed Immunosuppression due to drug therapy End stage renal disease (~2020) hx, kidney transplant 2020; previously on dialysis for 4 years prior to transplant per pt Charcot arthropathy Charcot's joint of left foot Leukocytosis hx Critical illness polyneuropathy Pulmonary edema hx Substance abuse pt denies History of seizure (~2018) seizure-like activity 02/14/2019 in setting of severe hyperglycemia (patient states he missed dialysis/insulin dose), DKA, confusion- lifeflighted to [place]/intubated/placed on ventilator. DKA managed with insulin drip on admission. EEG with no seizure activity noted. Neurology consulted and initially started patient on prophylactic Keppra but suspected seizure was complication of hyperglycemia and recommended weaning off anticonvulsants/advised no further neurology workup needed. Per patient, medication/dialysis compliance since discharge with glucoses in the range on 100's-200's on self-checks. most recent 2019 or 2020 Peritonitis (~2019) hx, 2019 Withdrawal from opioids pt denies Nephrotic syndrome hx Diabetes mellitus type I no meds currently Hypertension Surgical History S/P dialysis catheter insertion currently removed History of esophagogastroduodenoscopy (EGD) Hx of foot surgery 09/2023, transferred from [place] to [place], I&D left foot S/P arteriovenous (AV) fistula creation left arm Pancreas transplant status 2020, [facility] Renal transplant recipient 04/2021, [facility]; removed appendix at same time Hx of tonsillectomy Hx of tooth extraction Hx of vitrectomy B/L; right vitrectomy: 05/26/18: LMA#5 at [facility] [place] Family History Grandfather (Maternal) Diabetes Grandfather (Paternal) Diabetes Grandmother (Paternal) Diabetes Grandmother (Maternal) Diabetes Aunt Diabetes Uncle Diabetes Father Hypertension Brother Hypertension Social History Smoking Status: Former smoker Tobacco Type: Cigarettes Second Hand Exposure: No; Do You Dip or Chew Tobacco: Yes (occasional); Hx Alcohol Use: Yes (none for a long time, prior to transplant) Hx Substance Use: No Preferred Language: Portuguese Communication Ability: Effective Communication Ability Comment: sedated, arouses easily Visual Impairment: Severely Limited Hearing Ability: Normal Juvenile Counselor Required: No Beliefs That Will Affect Care: None Current Living Situation: Other Current Living Situation Comment: has managed care specialist and son stays with him often current occupational status: employed and unemployed Feels Safe at Home: Yes Childhood Exposure to Second-Hand Smoke: No Diet: regular Diet Comment: diabetic caffeine: Yes during the past year weight has: other Dental Care, Regularly: Yes Physical Activity Frequency: Daily Seatbelt Use: always Sunscreen Use: Yes Assistive Devices: Crutches, Denture - Upper, Denture - Lower and Wheelchair Allergies Allergies Allergy/AdvReac Type Severity Reaction Status Date / Time sulfamethoxazole Allergy Intermediate Rash Verified 07/23/24 08:59 [From Bactrim] trimethoprim [From Bactrim] Allergy Intermediate Rash Verified 07/23/24 08:59 Home Meds Home Medications Medication Instructions Recorded Confirmed clonazepam 0.5 mg tablet 1 mg PO TID Anxiety 11/03/18 08/20/24 mycophenolate mofetil 250 mg 750 mg PO BID 10/20/22 08/20/24 capsule rosuvastatin 10 mg tablet 10 mg PO QAM 10/20/22 08/20/24 aspirin 325 mg tablet 325 mg PO QAM 12/19/22 08/20/24 tacrolimus 1 mg capsule, 1 mg PO QAM 06/05/23 08/20/24 immediate-release furosemide 20 mg tablet 20 mg PO QAM PRN NEEDED PER 09/18/23 08/20/24 [facility] methadone 10 mg/5 mL oral solution 105 mg PO QAM 09/18/23 08/20/24 pregabalin 75 mg capsule 75 mg PO TID 09/18/23 08/20/24 tacrolimus 0.5 mg capsule, 0.5 mg PO QPM 01/27/24 08/20/24 immediate-release amlodipine 5 mg tablet 5 mg PO QAM 08/20/24 08/20/24 piperacillin-tazobactam 40.5 gram 40.5 g IV UD 08/20/24 08/20/24 intravenous solution Previous Rx's Medication Instructions Recorded carvedilol 6.25 mg tablet (Coreg) 6.25 mg PO BID #20 tabs 12/08/22 zinc sulfate 50 mg zinc (220 mg) 220 mg (4.4 x 50 mg zinc (220 mg)) 06/12/23 capsule (Orazinc) PO QAM #30 caps tamsulosin 0.4 mg capsule 0.4 mg PO QAM #0 caps 01/29/24 Results & Data (ED) Vital Signs Vital Signs - 24 hr 08/20/24 15:13 08/20/24 15:13 08/20/24 15:37 Temperature 36.6 C Temperature Source Oral Pulse Rate 70 68 Pulse Rate [Apical] 70 Pulse Rhythm Regular Pulse Rhythm [Apical] Regular Pulse Strength Normal Pulse Strength [Apical] Normal Respiratory Rate 16 16 Respiratory Effort / Characteristics Non-Labored Spontaneous Non-Labored Spontaneous Respiratory Depth Normal Normal Respiratory Pattern Regular Regular Blood Pressure 160/86 H Blood Pressure [Right Arm] 160/86 H Blood Pressure Mean 110 Blood Pressure Mean [Right Arm] 110 Blood Pressure Position Lying Blood Pressure Position [Right Arm] Lying Pulse Oximetry 98 98 Oxygen Delivery Method Room Air Room Air Sepsis Recent Fever Within 48 Hours No Sepsis New/Unexplained Change in Mental Status N/A Sepsis Action Taken by Nursing No Action Required 08/20/24 17:59 08/20/24 19:00 08/20/24 22:01 Temperature Temperature Source Pulse Rate 67 Pulse Rate [Apical] 66 71 Pulse Rhythm Pulse Rhythm [Apical] Regular Pulse Strength Pulse Strength [Apical] Normal Respiratory Rate 18 16 18 Respiratory Effort / Characteristics Non-Labored Spontaneous Respiratory Depth Normal Respiratory Pattern Regular Blood Pressure Blood Pressure [Right Arm] 144/88 H 169/97 H Blood Pressure Mean Blood Pressure Mean [Right Arm] 106 121 Blood Pressure Position Blood Pressure Position [Right Arm] Lying Pulse Oximetry 96 98 98 Oxygen Delivery Method Room Air Room Air Room Air Sepsis Recent Fever Within 48 Hours Sepsis New/Unexplained Change in Mental Status Sepsis Action Taken by Nursing Laboratory Data 08/20/24 15:30 08/20/24 15:30 Lab Results 08/20/24 Range/Units 15:30 WBC 2.31 L (4.8-10.8) K/ul RBC 5.39 (4.70-6.10) M/uL Hgb 12.2 L (14.0-18.0) g/dl Hct 40.3 L (42.0-52.0) % MCV 74.8 L (80.0-100.0) fL MCH 22.6 L (25.0-34.0) pg MCHC 30.3 L (32.0-36.0) g/dL RDW Std Deviation 50.9 H (36.4-46.3) fL RDW Coeff of Rebecca 19.5 H (11.5-14.5) % Plt Count 85 L (130-400) K/uL MPV 9.0 L (9.4-12.4) fL Immature Gran % (Auto) 0.0 % Neut % (Auto) 20.8 % Lymph % (Auto) 66.2 % Davie % (Auto) 10.4 % Eos % (Auto) 2.2 % Baso % (Auto) 0.4 % Neut # (Auto) 0.48 L* (1.40-6.50) K/uL Lymph # (Auto) 1.53 (1.20-3.40) K/uL Davie # (Auto) 0.24 (0.11-0.59) K/uL Eos # (Auto) 0.05 (0.00-0.50) K/uL Baso # (Auto) 0.01 (0.00-0.20) K/uL Immature Gran # (Auto) 0.00 L (0.01-0.20) K/uL ESR 37 H (0-15) mm/hr PT 12.1 H (9.0-12.0) Seconds INR 1.1 (0.9-1.1) APTT 28 (21-31) Seconds PTT Ratio 1.0 Sodium 137 (136-145) mmol/L Potassium 4.2 (3.5-5.1) mmol/L Chloride 106 (98-107) mmol/L Carbon Dioxide 26 (21-32) mmol/L Anion Gap 5 (3-11) BUN 19 (6-23) mg/dl Creatinine 0.91 (0.6-1.4) mg/dl Est Cr Clr Drug Dosing 126.1 ml/min eGFR 109.27 BUN/Creatinine Ratio 20.9 H (10-20) Glucose 111 H (70-99(Fasting)) mg/dl Calcium 9.4 (8.6-10.3) mg/dl Total Bilirubin 0.5 (0.2-1.0) mg/dl AST 35 (13-39) U/L ALT 11 (7-52) U/L Alkaline Phosphatase 98 (34-104) U/L C-Reactive Protein 3.49 H (0-0.5) mg/dl Total Protein 7.3 (6.0-8.3) gm/dl Albumin 3.9 (3.4-5.0) gm/dl Globulin 3.4 (2.5-4.0) gm/dl Albumin/Globulin Ratio 1.1 (0.9-2) Procalcitonin 0.43 (0-0.5) ng/ml Discharge Plan Visit Data Chief Complaint: Abnormal Labs/Diagnostic Testing Stated Complaint: ABNORMAL LABS ED Provider: Jean Garcia Discharge Problem: Neutropenia Patient Disposition: Admitted As Inpatient Discharge Instructions Interventions: ED Discharge Assessment Last Done: 08/20/24 22:01 Forms Stand Alone Forms: My [facility] Prescriptions Prescriptions: No Action aspirin 325 mg tablet 325 mg PO QAM clonazepam 0.5 mg tablet 1 mg PO TID mycophenolate mofetil 250 mg capsule 750 mg PO BID Rx Instructions: 3 caps (250 each cap) BID rosuvastatin 10 mg tablet 10 mg PO QAM Hold Instructions: Resume on 06/20/23. Hold until you are completed with your IV antibiotic therapy carvedilol [Coreg] 6.25 mg tablet 6.25 mg PO BID Qty: 20 2RF Rx Instructions: must administer with a meal/food tacrolimus 1 mg Capsule 1 mg PO QAM Hold Instructions: Resume on 07/10/23. Hold until directed by your transplant team zinc sulfate [Orazinc] 50 mg zinc (220 mg) Capsule 220 mg PO QAM Qty: 30 0RF methadone 10 mg/5 mL Solution 105 mg PO QAM furosemide 20 mg tablet 20 mg PO QAM PRN (Reason: NEEDED PER [facility]) pregabalin 75 mg capsule 75 mg PO TID piperacillin-tazobactam 40.5 gram recon soln 40.5 g IV UD Rx Instructions: per pt, medication is on hold amlodipine 5 mg tablet 5 mg PO QAM tacrolimus 0.5 mg capsule 0.5 mg PO QPM Rx Instructions: This dose is per patient. tamsulosin 0.4 mg Capsule 0.4 mg PO QAM Qty: 0 0RF Referrals Referrals: Ryan Leyva MD [Primary Care Provider] -
[2024-08-20 17:02] LABS: Albumin Globulin Ratio 1.1 (0.9-2); Albumin Level 3.9 gm/dl (3.4-5.0); BUN Creatinine Ratio 20.9 (10-20); Bilirubin,Total 0.5 mg/dl (0.2-1.0); Calcium 9.4 mg/dl (8.6-10.3); Creatinine Clr Calc Pharmacy 126.1 ml/min; Globulin 3.4 gm/dl (2.5-4.0); INR 1.1 (0.9-1.1); Partial Thromboplastin Time 28 Seconds (21-31); Potassium 4.2 mmol/L (3.5-5.1); Prothrombin Time 12.1 Seconds (9.0-12.0); Total Protein 7.3 gm/dl (6.0-8.3)
[2024-08-20 17:34] LABS: Basophils # (auto) 0.01 K/uL (0.00-0.20); Basophils % (auto) 0.4 %; Eosinophils # (auto) 0.05 K/uL (0.00-0.50); Eosinophils % (auto) 2.2 %; Hematocrit (blood only) 40.3 % (42.0-52.0); Hemoglobin 12.2 g/dl (14.0-18.0); Lymphocytes # (auto) 1.53 K/uL (1.20-3.40); Lymphocytes % (auto) 66.2 %; Mean Corpuscular Hemoglobin 22.6 pg (25.0-34.0); Mean Corpuscular Hgb Conc 30.3 g/dL (32.0-36.0); Mean Corpuscular Volume 74.8 fL (80.0-100.0); Monocytes # (auto) 0.24 K/uL (0.11-0.59); Monocytes % (auto) 10.4 %; Neutrophils # (auto) 0.48 K/uL (1.40-6.50); Neutrophils % (auto) 20.8 %; Platelet Count 85 K/uL (130-400); RDW Coefficient of Variation 19.5 % (11.5-14.5); RDW Standard Deviation 50.9 fL (36.4-46.3); Red Blood Count 5.39 M/uL (4.70-6.10); White Blood Count 2.31 K/ul (4.8-10.8)
--- NOTE | 2024-08-20 18:18 | History & Physical Report ---
Date of Service August 20, 2024 Assessment & Plan (1) Neutropenia: Plan: Bernard Jones is a medically complex but stable 38y/o M with PMHx significant for osteomyelitis of the left foot, simultaneous pancreas-kidney transplant in 2020 due to ESRD in the setting of underlying type 1 DM on chronic immunosuppression therapy, necrolytic acral erythema, stable proliferative diabetic retinopathy of both eyes associated with type 1 DM, Charcot neuroarthropathy of both feet, HTN, HLD, venous stasis of both lower extremities, seizure disorder, history of drug abuse on chronic methadone therapy, history of hepatitis C virus infection cured after antiviral drug therapy and JOB who presented to the ED from home via recommendation by his PCP after routine outpatient lab work revealed new-onset neutropenia. WBC count 2.31k and Neutrophil count 0.48; ? Possible if Zosyn is causing neutropenia as per below. LFTs WNL. Check peripheral smear. Obtain blood cultures (2 from periphery and 1 from PICC line site) to check for bacteremia. (2) Cardiac murmur: Plan: 2-3/6 holosystolic murmur best heard in the RUSB. Patient with no prior history of cardiac murmur. Given immunocompromised state and new-onset neutropenia, will obtain TTE to assess for valvular disease/vegetations. (3) Charcot arthropathy: Plan: He wears orthotic boots on both of his feet on a daily basis for ambulation given his history of Charcot neuroarthropathy of both feet. Continue Lyrica. His right orthotic boot is starting to break down and is being held together with duct tape - will need to see if this can be replaced somehow with CM. (4) Ulcer of right foot: Plan: Pictured in physical exam portion of this note. Ulceration on plantar aspect of right foot. No visible drainage. Will obtain MRI of right foot to check for underlying osteomyelitis. May be beneficial to check CARLOS ALBERTO if not yet already recently done. (5) Thrombocytopenia: Plan: Platelet count 85k on admission. Platelet count was around 121k back in January 2024 but has since been WNL. Check peripheral smear as per above. Known prior history of hepatitis C which was appropriately treated with antiviral therapy. LFTs WNL. Additional testing pending results of peripheral smear. Monitor platelet count and LFTs. (6) Osteomyelitis of left foot: Plan: Had non-healing ulcer of left foot. Underwent bone resection with bone biopsy performed by Dr. Martino on 05/20/25. Bone biopsy revealed acute osteomyelitis. Bone culture grew few Proteus mirabilis, few Pseudomonas aeruginosa, moderate Clostridium perfringens and moderate Finegoldia magna. Follows with [facility] here in [place]. Primary infectious disease physician is Dr. Caridad Villa. Had right upper extremity PICC line placed on 07/23/24 here at [facility]. Currently on IV Zosyn 3.375gm Q6H for a total of 6 weeks. First dose of IV Zosyn was on 07/23/24, therefore EOT should be on or around 09/03/24. He reports being told to stop taking the IV Zosyn yesterday after his routine weekly outpatient lab work revealed a new-onset neutropenia as per above. States his most recent dose of Zosyn was yesterday morning, 08/19/24. Mentions he has weekly home health visits which were arranged through [facility]; unsure of which agency. Mentions he sees wound care every 2 weeks at [facility]. He wears orthotic boots on both of his feet on a daily basis for ambulation given his history of Charcot neuroarthropathy of both feet. States the ulceration on his left foot is healing nicely. No drainage or erythema surrounding his incision site. Mentions he has an ulceration on the bottom of his right foot as well but denies any drainage from it. States that he keeps bandaging over both ulcerations at all times as advised by the wound clinic. ? Possible if Zosyn is causing neutropenia. Appreciate ID consult to determine best course for ABX coverage given possible adverse effect of Zosyn. Will cover with IV meropenem for now given its pseudomonas coverage pending further recommendations and input from ID to determine best course of action. (7) Immunosuppressed status: (8) History of simultaneous kidney and pancreas transplant: Plan: Underwent simultaneous pancreas-kidney transplant in 2020 due to ESRD in the setting of underlying type 1 DM at [facility]. He is on CellCept 750mg BID and Prograf 1mg QAM/0.5mg QPM. Prograf goal level of 6-9ng/mL. Will check Prograf level and mycophenolic acid level. Now following with Dr. Rosie Merrill of [facility] in [place] (recently saw her on 08/13/24). (9) History of substance abuse: Plan: Former narcotic abuse. On chronic methadone therapy. Follows with outpatient methadone clinic for this. (10) Hypertension: Plan: Continue amlodipine and carvedilol with hold parameters. Hold home PRN Lasix for now. Routine BP monitoring on board. (11) Hyperlipidemia: Plan: Will check fasting lipid panel in AM. Continue rosuvastatin. Hold home ASA ISO thrombocytopenia as per above. DVT Prophylaxis: SCDs/TEDs for now ISO thrombocytopenia. Code Status: FULL CODE PCP: Ryan Leyva MD Disposition: Admit to med/telemetry for further inpatient evaluation and management. Patient seen in collaboration with Dr. Yousif Please see addendum. I spent a total of 75 minutes coordinating, documenting, and providing care for this patient excluding time spent in the performance of separately billed services or time spent by another provider/QHP. This included personally reviewing all current laboratories and imaging studies, medical reconciliation, outpatient chart review and discussion with specialists. This chart was completed in part utilizing Speech Voice Recognition Software. Grammatical errors, random word insertions, pronoun errors, and incomplete sentences are an occasional consequence of this system due to software limitations, ambient noise, and hardware issues. Any formal questions or concerns about the content, text, or information contained within the body of this dictation should be directly addressed to the provider for clarification. History of Present Illness Chief Complaint: Abnormal outpatient CBC results Primary Care Provider: Ryan Leyva MD Bernard Jones is a medically complex but stable 38y/o M with PMHx significant for osteomyelitis of the left foot, simultaneous pancreas-kidney transplant in 2020 due to ESRD in the setting of underlying type 1 DM on chronic immunosuppression therapy, necrolytic acral erythema, stable proliferative diabetic retinopathy of both eyes associated with type 1 DM, Charcot neuroarthropathy of both feet, HTN, HLD, venous stasis of both lower extremities, seizure disorder, history of drug abuse on chronic methadone therapy, history of hepatitis C virus infection cured after antiviral drug therapy and JOB who presented to the ED from home via recommendation by his PCP after routine outpatient lab work revealed new-onset neutropenia. History obtained from the patient, discussion with ED provider and extensive chart review. Patient seen at bedside with Dr. Yousif. Had non-healing ulcer of left foot. Underwent bone resection with bone biopsy performed by Dr. Martino on 05/20/25. Bone biopsy revealed acute osteomyelitis. Bone culture grew few Proteus mirabilis, few Pseudomonas aeruginosa, moderate Clostridium perfringens and moderate Finegoldia magna. Follows with [facility] here in [place]. Primary infectious disease physician is Dr. Caridad Villa. Had right upper extremity PICC line placed on 07/23/24 here at [facility]. Currently on IV Zosyn 3.375gm Q6H for a total of 6 weeks. First dose of IV Zosyn was on 07/23/24, therefore EOT should be on or around 09/03/24. Patient reports being told to stop taking the IV Zosyn yesterday after his routine weekly outpatient lab work, which is conducted while on the antibiotic, revealed a new-onset neutropenia. States his most recent dose of Zosyn was yesterday morning, 08/19/24. Mentions he has weekly home health visits which were arranged through [facility]; unsure of which agency. He was ultimately referred to the ED for further evaluation of his neutropenia. Offers no overt complaints. Denies any SOB, chest pain, congestion, abdominal pain, diarrhea, dysuria, hematuria, hematochezia/melena, fevers, chills or body aches. Mentions he sees wound care every 2 weeks at [facility]. He wears orthotic boots on both of his feet on a daily basis for ambulation given his history of Charcot neuroarthropathy of both feet. States the ulceration on his left foot is healing nicely. No drainage or erythema surrounding his incision site. Mentions he has an ulceration on the bottom of his right foot as well but denies any drainage from it. States that he keeps bandaging over both ulcerations at all times as advised by the wound clinic. No alcohol abuse. Does use chewing tobacco on a daily basis. No recreational drug use such as marijuana. No recent changes in appetite. Former narcotic abuse. On chronic methadone therapy. Follows with outpatient methadone clinic for this. He is on CellCept 750mg BID and Prograf 1mg QAM/0.5mg QPM. Prograf goal level of 6-9ng/mL. Now following with Dr. Rosie Merrill of [facility] in [place]. Recently saw her on 08/13/24. Allergies Allergy/AdvReac Type Severity Reaction Status Date / Time sulfamethoxazole Allergy Intermediate Rash Verified 07/23/24 08:59 [From Bactrim] trimethoprim [From Bactrim] Allergy Intermediate Rash Verified 07/23/24 08:59 Home Medications Medication Instructions Recorded Confirmed Type clonazepam 0.5 mg tablet 1 mg PO TID Anxiety 11/03/18 08/20/24 History mycophenolate mofetil 250 mg 750 mg PO BID 10/20/22 08/20/24 History capsule rosuvastatin 10 mg tablet 10 mg PO QAM 10/20/22 08/20/24 History carvedilol 6.25 mg tablet (Coreg) 6.25 mg PO BID #20 tabs 12/08/22 08/20/24 Rx aspirin 325 mg tablet 325 mg PO QAM 12/19/22 08/20/24 History tacrolimus 1 mg capsule, 1 mg PO QAM 06/05/23 08/20/24 History immediate-release zinc sulfate 50 mg zinc (220 mg) 220 mg (4.4 x 50 mg zinc (220 mg)) 06/12/23 08/20/24 Rx capsule (Orazinc) PO QAM #30 caps furosemide 20 mg tablet 20 mg PO QAM PRN NEEDED PER 09/18/23 08/20/24 History [facility] methadone 10 mg/5 mL oral solution 105 mg PO QAM 09/18/23 08/20/24 History pregabalin 75 mg capsule 75 mg PO TID 09/18/23 08/20/24 History tacrolimus 0.5 mg capsule, 0.5 mg PO QPM 01/27/24 08/20/24 History immediate-release tamsulosin 0.4 mg capsule 0.4 mg PO QAM #0 caps 01/29/24 08/20/24 Rx amlodipine 5 mg tablet 5 mg PO QAM 08/20/24 08/20/24 History piperacillin-tazobactam 40.5 gram 40.5 g IV UD 08/20/24 08/20/24 History intravenous solution Past Med/Surg History Problem List (Updated 08/20/24 @ 21:49 by Saira Vigil PA-C) Hyperlipidemia Ulcer of right foot Thrombocytopenia History of substance abuse History of simultaneous kidney and pancreas transplant Immunosuppressed status Cardiac murmur Neutropenia Osteomyelitis of left foot History of renal transplant Wound of lower extremity Charcot arthropathy of midfoot Chronic venous insufficiency (Chronic) Venous stasis ulcers (Acute) Uncontrolled hypertension Cellulitis (Acute) PAD (peripheral artery disease) (Chronic) Diabetic peripheral neuropathy (Chronic) Anxiety Anemia Prolonged Q-T interval on ECG ESRD (end stage renal disease) Hepatitis C Gastroparesis Diabetic retinopathy of both eyes (Chronic) Medical History Wound of lower extremity Venous stasis ulcers hx DKA (diabetic ketoacidosis) (~2019) hx, 2019 Diabetic retinopathy of both eyes Diabetic peripheral neuropathy Chronic venous insufficiency Cellulitis hx in right foot/leg and left foot/leg per pt Acute hypoxemic respiratory failure (~2019) hx, 2019, w/pneumonia; no current breathing issues per pt. Hx of deep venous thrombosis (~09/2023) 09/18/23, previously on eliquis History of anemia no recent issues Anxiety Gastroparesis hx, no recent issues Hx of hepatitis C sometime prior 2020, had tx and "cured" PAD (peripheral artery disease) History of pneumonia (~2019) 2019, no recent issues Hx of sepsis (~09/2023) 09/2023, hospitalized [facility]; no current issues AV (arteriovenous fistula) left fistula Limb alert care status left arm Chronic ulcer of right foot with fat layer exposed Immunosuppression due to drug therapy End stage renal disease (~2020) hx, kidney transplant 2020; previously on dialysis for 4 years prior to transplant per pt Charcot arthropathy Charcot's joint of left foot Leukocytosis hx Critical illness polyneuropathy Pulmonary edema hx Substance abuse pt denies History of seizure (~2018) seizure-like activity 02/14/2019 in setting of severe hyperglycemia (patient states he missed dialysis/insulin dose), DKA, confusion- lifeflighted to [place]/intubated/placed on ventilator. DKA managed with insulin drip on admission. EEG with no seizure activity noted. Neurology consulted and initially started patient on prophylactic Keppra but suspected seizure was complication of hyperglycemia and recommended weaning off anticonvulsants/advised no further neurology workup needed. Per patient, medication/dialysis compliance since discharge with glucoses in the range on 100's-200's on self-checks. most recent 2019 or 2020 Peritonitis (~2019) hx, 2019 Withdrawal from opioids pt denies Nephrotic syndrome hx Diabetes mellitus type I no meds currently Hypertension Surgical History S/P dialysis catheter insertion currently removed History of esophagogastroduodenoscopy (EGD) Hx of foot surgery 09/2023, transferred from [place] to [place], I&D left foot S/P arteriovenous (AV) fistula creation left arm Pancreas transplant status 2020, [facility] Renal transplant recipient 04/2021, [facility]; removed appendix at same time Hx of tonsillectomy Hx of tooth extraction Hx of vitrectomy B/L; right vitrectomy: 05/26/18: LMA#[address] [facility] Family History Grandfather (Maternal) Diabetes Grandfather (Paternal) Diabetes Grandmother (Paternal) Diabetes Grandmother (Maternal) Diabetes Aunt Diabetes Uncle Diabetes Father Hypertension Brother Hypertension Social History Smoking Status: Former smoker Tobacco Type: Cigarettes Second Hand Exposure: No; Do You Dip or Chew Tobacco: Yes (occasional); Hx Alcohol Use: Yes (none for a long time, prior to transplant) Hx Substance Use: No Preferred Language: Somali Communication Ability: Effective Communication Ability Comment: sedated, arouses easily Visual Impairment: Severely Limited Hearing Ability: Normal [employer] Required: No Beliefs That Will Affect Care: None Current Living Situation: Other Current Living Situation Comment: has direct care specialist and son stays with him often current occupational status: employed and unemployed Feels Safe at Home: Yes Childhood Exposure to Second-Hand Smoke: No Diet: regular Diet Comment: diabetic caffeine: Yes during the past year weight has: other Dental Care, Regularly: Yes Physical Activity Frequency: Daily Seatbelt Use: always Sunscreen Use: Yes Assistive Devices: Crutches, Denture - Upper, Denture - Lower and Wheelchair Review of Systems 2 Review of Systems: At least ten systems reviewed and negative, except as noted in the HPI. Physical Exam 2 Physical Exam: Please refer to Dr. Yousif's addendum for further physical examination findings. General: Chronically ill-appearing M, NAD, sitting up in bed, pleasant but somewhat flat affect. A+Ox3. Cardiovascular: Regular rate, regular rhythm. +2-3/6 holosystolic murmur heard best in RUSB. BLE venous stasis changes. Abdomen/GI: Normoactive bowel sounds, soft, nondistended, nontender to palpation in all quadrants. MSK/Extremities: Pictures as per below. Former LUE fistula for prior dialysis visualized and without erythema/tenderness to palpation. RIGHT foot with open ulceration: LEFT foot with healing ulceration: Results & Data Results & Data Vital Signs (Past 12 Hours) Vital Signs Temp Pulse Pulse Resp BP BP Pulse Ox 08/20/24 17:59 66 18 144/88 H 96 08/20/24 15:37 68 08/20/24 15:13 70 16 160/86 H 98 08/20/24 15:13 36.6 C 70 16 160/86 H 98 O2 Del Method 08/20/24 17:59 Room Air 08/20/24 15:37 08/20/24 15:13 Room Air 08/20/24 15:13 Room Air Laboratory Results Short CBC 08/20/24 Range/Units 15:30 WBC 2.31 L (4.8-10.8) K/ul Hgb 12.2 L (14.0-18.0) g/dl Hct 40.3 L (42.0-52.0) % Plt Count 85 L (130-400) K/uL BMP 08/20/24 15:30 Sodium 137 Potassium 4.2 Chloride 106 Carbon Dioxide 26 BUN 19 Creatinine 0.91 Glucose 111 H Calcium 9.4 Liver Function 08/20/24 Range/Units 15:30 Total Bilirubin 0.5 (0.2-1.0) mg/dl AST 35 (13-39) U/L ALT 11 (7-52) U/L Alkaline Phosphatase 98 (34-104) U/L Albumin 3.9 (3.4-5.0) gm/dl Code Status & VTE Plan Code Status FULL CODE Supervising Physician Co-Signing Physician Notes Patient seen and examined at bedside. Complex medical history and case, significant immunosuppression in setting of 2 prior solid organ transplants. Neutropenia to below 0.5. Patient sent in by ID for workup of neutropenia. Patient is asymptomatic at this time. Does have chronic methadone and clonazepam use, in remission from substance use disorder. Bacteremia and infections in immunocompromised patients can present with neutropenia, warranting a thorough physical exam and source workup. On exam, noted right foot ulceration that appears potentially infected, and systolic murmur noted on physical exam (no prior hx of murmurs, echo not suggestive of prior pathologies). No fever noted, either at home or here. Thrombocytopenia also noted, making concern for infection in immunocompromised slightly higher. Will check coags, fibrinogen, haptoglobin, LDH for completion of workup, although concern for these etiologies are low. Differential of neutropenia is broad: infection/sepsis viral vs. bacterial (very possible), zosyn use (very possible), less likely hypersplenism, immune destruction, HIV. Workup is involved and will involve source rule out. Check MRI right foot with concern for osteomyelitis, echocardiogram given systolic murmur (may need ALEXIA if negative). Will cover empirically with vancomycin/meropenem given right foot wound and stop zosyn given neutropenia. Check HIV, biofire for viral illnesses. Will need to check PICC line culture and peripheral cultures, may need to remove PICC line. Agree with infectious disease consult given complexity of case. I have seen and discussed the case with the collaborating advanced practitioner. I agree with the above H&P. I have reviewed and confirmed the patients medical history, the findings on physical examination, and the patients diagnosis and treatment plan with Musa MENDOZA and agree with the information documented. I spent a total of 40 minutes coordinating, documenting, and providing care for this patient excluding time spent in the performance of separately billed services. All of the aforementioned completed outside of collaborating with the assigned advanced practitioner for a full treatment plan. I have reviewed the advanced practitioner's documentation, and I agree with, and take responsibility for the plan of care (1) Neutropenia Neutropenia type: unspecified Qualified Code(s): D70.9 - Neutropenia, unspecified (4) Ulcer of right foot Non-pressure ulcer stage: unspecified non-pressure ulcer stage Qualified Code(s): L97.519 - Non-pressure chronic ulcer of other part of right foot with unspecified severity (6) Osteomyelitis of left foot Osteomyelitis type: unspecified type Qualified Code(s): M86.9 - Osteomyelitis, unspecified (10) Hypertension Hypertension type: essential hypertension Qualified Code(s): I10 - Essential (primary) hypertension (11) Hyperlipidemia Hyperlipidemia type: unspecified Qualified Code(s): E78.5 - Hyperlipidemia, unspecified
[2024-08-20 18:19] LABS: C Reactive Protein 3.49 mg/dl (0-0.5)
[2024-08-20] MEDS ORDERED: MEROPENEM 500 MG VIAL IV SCH (21:45)
[2024-08-20] MEDS ORDERED: MAGNESIUM HYDROXIDE SUSP 30 ML UDC PO PRN (22:57)
[2024-08-20] MEDS ORDERED: POLYETHYLENE (MIRALAX) 17 GM PACK PO PRN (22:57)
[2024-08-20] MEDS ORDERED: ONDANSETRON INJ 2 MG/ML 2 ML VIAL IV PRN (22:57)
[2024-08-20] MEDS: clonazePAM 1 MG TAB PO SCH (23:03)
--- NOTE | 2024-08-20 23:03 | Magnetic Resonance Report ---
Exam(s): MRI RIGHT FOOT Without Contrast EXAM: MR Right Lower Extremity Without Intravenous Contrast, Foot CLINICAL HISTORY: Reason for exam: Foot ulcer, r/o osteomyelitis. TECHNIQUE: Multiplanar magnetic resonance images of the right foot without intravenous contrast. COMPARISON: MRI right foot January 28, 2024. FINDINGS: Severe diffuse chronic arthropathy in the hindfoot and midfoot consistent with Charcot arthropathy. There is a small fracture fragment along the medial aspect of the midfoot which is not acute. Extensive patchy bone marrow edema is seen within the calcaneus, talus, cuneiforms and cuboid. These are likely secondary to repetitive and chronic trauma and arthropathy. This appears mildly less severe than on the prior study. There is diffuse edema in the soft tissues. No large soft tissue wound is evident. Major tendons in the region of the midfoot and forefoot are within normal limits. IMPRESSION: Extensive patchy edema and numerous bones of the midfoot and hindfoot most consistent with chronic neuropathic arthropathy. No clear evidence of osteomyelitis. Electronically signed by: Craig Matute MD 08/20/24 23:01 PM
[2024-08-20] MEDS: MYCOPHENOLATE MOFETIL 250 MG CAP PO SCH (23:04)
[2024-08-20] MEDS: carvediloL 6.25 MG TAB PO SCH (23:04)
[2024-08-20] MEDS: TACROLIMUS 0.5 MG CAP PO SCH (23:06)
[2024-08-20] MEDS: PREGABALIN 75 MG CAP PO SCH (23:09)
[2024-08-20] MEDS: MEROPENEM 500 MG in SYRINGE 0 ML IV SCH (23:15)
[2024-08-21 00:19] LABS: Adenovirus PCR Not Detected (NotDetected); Bordetella parapertussis PCR Not Detected (NotDetected); Bordetella pertussis PCR Not Detected (NotDetected); Chlamydia pneumoniae PCR Not Detected (NotDetected); Coronavirus 229E PCR Not Detected (NotDetected); Coronavirus CoV-2 (COVID19)PCR Not Detected (NotDetected); Coronavirus HKU1 PCR Not Detected (NotDetected); Coronavirus NL63 PCR Not Detected (NotDetected); Coronavirus OC43PCR Not Detected (NotDetected); Human Metapneumovirus PCR Not Detected (NotDetected); Influenza A PCR Not Detected (NotDetected); Influenza B PCR Not Detected (NotDetected); Mycoplasma pneumoniae PCR Not Detected (NotDetected); Parainfluenza Virus 1 PCR Not Detected (NotDetected); Parainfluenza Virus 2 PCR Not Detected (NotDetected); Parainfluenza Virus 3 PCR Not Detected (NotDetected); Parainfluenza Virus 4 PCR Not Detected (NotDetected); Respiratory Syncytial VirusPCR Not Detected (NotDetected); Rhinovirus/Enterovirus PCR Not Detected (NotDetected)
[2024-08-21 00:38] LABS: Fibrinogen 312 mg/dl (184-400)
[2024-08-21 01:12] LABS: D Dimer 2330 ug/L FEU (0-500)
[2024-08-21] MEDS: SODIUM CHLORIDE 0.9% 1,000 ML IV SCH (02:47)
--- NOTE | 2024-08-21 03:25 | Ultrasound Report ---
EXAM: US venous doppler LE BI CLINICAL HISTORY: elevated D-dimer. dvt? TECHNIQUE: Ultrasound examination of bilateral lower extremity veins was performed in real time and duplex. One or more of the following were performed: spectral analysis, resistive index, waveform analysis, and pulsed Doppler. COMPARISON: 01/27/2024, 01/28/2024 FINDINGS: Normal phasic, non-pulsatile and spontaneous flow is noted in bilateral common femoral, proximal great saphenous, superficial femoral, deep femoral, popliteal, posterior tibial, anterior tibial and peroneal veins. Visualized veins of both lower extremities demonstrate normal compressibility. No sonographic evidence of acute deep vein thrombosis (DVT) is detected in the visualized veins of both lower extremities. Compression and Augmentation: All evaluated veins compress fully with applied transducer pressure. Augmentation of venous flow is noted with distal compression. Additional Findings: No evidence of intraluminal thrombus. Few benign looking bilateral inguinal lymph nodes are identified. on the right side measures 1.3 x 1.9 x 0.7 cm, On left side measures 2.27x 3.3 x 0.9 cm IMPRESSION: 1. No sonographic evidence of acute DVT detected in bilateral common femoral, proximal great saphenous, superficial femoral, deep femoral, popliteal, posterior tibial, anterior tibial and peroneal veins, at the time of examination. 2. Redemonstration of a few benign looking prominent bilateral inguinal lymph nodes is identified. 3. No interval changes are seen. Disclaimer: DVT could be missed early in the disease when clot burden is minimal. For patients with moderate and high pretest probability of DVT and negative ultrasound, the [employer] clinical guidelines recommend testing with a D-dimer assay or repeat ultrasound in 5-7 days. If symptoms worsen, the Society of Radiologists in Ultrasound recommends repeating ultrasound even earlier. Electronically signed by Rigoberto Valdez 08-21-2024 03:25 AM
--- OUTSIDE RECORDS SUMMARY | 2024-08-21 04:39 | External Medical Summary | Summary of Care ---
Author Name Unknown Organization [facility] Address [address] [place] [address] Phone [phone] Care Team Providers Care Programming Manager Name Role Phone Ryan Leyva MD Primary Care Provider [phone] Reason for Visit * Reason Onset Date Comments Appointment 08/17/2024 Encounter Details Date Type Department Care Team ([facility] st Contact Info) Description 08/17/2024 Telephone Care at Home [address], [place] [id number] Cornelia Stewart, ZEINA [address], [place] [id number] Appointment Allergies Active Allergy Reactions Criticality Noted Date Comments Iodinated Contrast Media 07/22/2024 H/O Kidney transplant Sulfamethoxazole Rash 06/05/2023 Trimethoprim Rash 06/05/2023 documented as of this encounter (statuses as of 08/17/2024) Medications Aspirin 325 MG Oral Tablet Take 1 Tablet by mouth in the morning. Active Methadone HCl 10 MG/5ML Oral SolutionIndication s:pt current dose 105mg Take 50 mL by mouth daily. Active Santyl 250 UNIT/GM External Ointment 3 Active Triamcinolone Acetonide 0.1 % External Cream (Aristocort)Indica tions:Rash and nonspecific skin eruption,Scald burn Apply topically to affected area 2 times a day. On left forearm and Rt thigh till better 45 g 1 3 Active Clotrimazole-Betam ethasone 1-0.05 % External Cream (Lotrisone) 3 Active Silvadene 1 % External Cream Apply topically to affected area daily. 50 g 2 3 Active Zinc 220 (50 Zn) MG Oral Capsule Take 220 mg by mouth every morning. 4 Active Tamsulosin HCl 0.4 MG Oral Capsule (Flomax) Take 1 Capsule by mouth in the morning. 4 Active Zinc 25 MG Oral Tablet Take 3 Tablets by mouth in the morning and 3 Tablets before bedtime. Active Furosemide 20 MG Oral Tablet (Lasix) Take 1 Tablet by mouth daily as needed (fluid). take 1 tab by mouth daily as needed 30 Tablet 1 4 Active Carvedilol 6.25 MG Oral Tablet (Coreg) Take 1 Tablet by mouth in the morning and 1 Tablet before bedtime. 180 Tablet 3 4 Active Cefadroxil 1 GM Oral Tablet Take 1 g by mouth in the morning and 1 g before bedtime. 20 Tablet 4 Active Rosuvastatin Calcium 10 MG Oral Tablet (Crestor)Indicatio ns:Type 1 diabetes mellitus with hemoglobin A1c goal of less than 7.0% ([facility]) Take 1 Tablet by mouth in the morning. In the morning.. 90 Tablet 4 Active Pregabalin 75 MG Oral Capsule (Lyrica)Indication s:Venous stasis of both lower extremities Take 1 Capsule by mouth in the morning and 1 Capsule at noon and 1 Capsule in the evening. 90 Capsule 1 5 Active clonazePAM 1 MG Oral Tablet (KlonoPIN)Indicati ons:JOB (generalized anxiety disorder) Take 1 Tablet by mouth every 8 hours as needed for Anxiety. 90 Tablet 5 Active Piperacillin Sod-Tazobactam So 40.5 (36-4.5) GM Intravenous Solution Reconstituted (Zosyn) 5 Active Tacrolimus 0.5 MG Oral Capsule (Prograf) Take 2 Capsules by mouth daily AND 1 Capsule at bedtime. 180 Capsule 3 5 Active Mycophenolate Mofetil 250 MG Oral Capsule (Cellcept) Take 3 Capsules by mouth in the morning and 3 Capsules before bedtime. 180 Capsule 3 5 Active amLODIPine Besylate 5 MG Oral Tablet (Norvasc) Take 1 Tablet by mouth in the morning. 60 Tablet 2 Active cloNIDine HCl 0.1 MG Oral Tablet (Catapres)Indicati ons:pt taking 2 tablets in morning and 2 tablets at night Take 0.1mg Tablet by mouth in the morning and 0.1mg Tablet in the evening for 3 days, and then 0.1 mg for 3 days and then stop 180 Tablet 3 5 Active Hospital, Clinic, or Other Facility Administered [...] as of this encounter (statuses as of 08/17/2024) Active Problems Problem Noted Date Diagnosed Date Non-pressure chronic ulcer o f other part of right foot with fat layer exposed 05/26/2024 Necrolytic acral erythema 06/30/2023 Diabetic Charcot foot 04/19/2023 Overview (05/25/2024): Chronic non-healing ulcer s/p bone resection Venous stasis of both lower extremities 01/15/20 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 History of type 1 diabetes mellitus 01/14/2023 Overview (01/14/2023): 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 Overweight (BMI 25.0-29.9) 01/12/2023 History of drug abuse 10/30/2022 Overview (10/30/2022): IVDA JOB (generalized anxiety disorder) 10/28/2022 Kidney replaced by transplant 07/16/2022 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 07/16/2022 Hepatitis C virus infection cured after antiviral drug therapy 04/26/2020 Overview (04/26/2020): HCV treated; SVR confirmed 04/18/2020 Seizure disorder 02/14/2019 HTN, goal below 130/80 10/18/2016 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 07/24/2016 documented as of this encounter (statuses as of 08/17/2024) Resolved Problems Problem Noted Date Diagnosed Date Resolved Date Food insecurity 03/23/2024 05/25/2024 Overview: Per [facility] Protocol DKA (diabetic ketoacidoses) 02/20/2019 07/16/2022 Acute respiratory [...] with type 1 diabetes mellitus 07/24/2016 07/17/2022 Overview (03/12/2018): ICD-10 update of inactive term Hepatitis C 06/10/2016 04/26/2020 Overview (04/26/2020): HCV treated; SVR confirmed 04/18/2020 documented as of this encounter (statuses as of 08/17/2024) Immunizations Name Administration Dates Next Due COVID-19 mRNA, LNP-s, No Pre serve, 2-Dose Series (Moderna) 08/09/2020,07/12/2020 Seasonal Influenza Vac., MDV , IM, 0.5 mL (Fluzone) 03/07/2020,03/18/2019,05/10/2018,2017 Seasonal Influenza Virus Vac cine, Unspecified Formulation 05/10/2018,07/15/2017 Seasonal Influenza, PF, 6 M & above, IM , (FluLaval or Fluzone) 03/07/2020,03/18/2019 Seasonal Influenza, Quadriva lent,with Preserve, 3 yr & above, IM 07/15/2017 TDAP, Age 7 and older, IM (Adacel) 06/21/2018, documented as of this encounter Social History Tobacco Use Types Packs/Day Years Used Date Smoking Tobacco: Former Vaporizer Smokeless Tobacco: Current Snuff Comments:12/07/19-quit 2 yrs ago Alcohol Use Standard Drinks/Week Comments No 0 (1 standard drink = 0.6 oz pur e alcohol) PHQ-2 Answer Date Recorded PHQ Adult Total Score 0 03/03/2024 Hunger Vital Sign Answer Date Recorded Within the past 12 months, y ou worried that your food would run out before you got the money to buy more. Sometimes true Within the past 12 months, t he food you bought just didn't last and you didn't have money to get more. Never true Childcare Answer Date Recorded Do you feel overwhelmed with taking care of a child, family member or friend? No 03/03/2024 Does your family need help f inding childcare? (Household - for ages 0-17 years) Not on file 03/03/2024 Clothing Answer Date Recorded Have you been unable to get clothing when it was really needed? No 03/03/2024 Is your family able to get c lothes or diapers when needed? (Household - for ages 0-17 years) Not on file 03/03/2024 Personal Safety Answer Date Recorded Do you feel unsafe or have concerns for your saf ety? No 03/03/2024 Do you have concerns for you r family's safety? (Household - for ages 0-17 years) Not on file 03/03/2024 Utilities Answer Date Recorded Do you have trouble paying y our heating, water, or electric bill? No 03/03/2024 Is your family able to pay t he heat, water, or electric bill? (Household - for ages 0-17 years) Not on file 03/03/2024 Does your family have access to good internet? (Household - for ages 0-17 years) Not on file 03/03/2024 Employment Status Answer Date Recorded Are you unemployed or without regular income? No 03/03/2024 Does the household have a re gular source of income? (Household - for ages 0-17 years) Not on file 03/03/2024 Social Connections Answer Date Recorded How often do you feel lonely or isolated from those around you? Sometimes 03/03/2024 Financial Resource Strain Answer Date R ecorded Do you have any trouble payi ng for your medications, or do you think you might in the future? No 03/03/2024 Does your family have troubl e paying for medicine? (Household - for ages 0-17 years) Not on file 03/03/2024 Transportation Needs Answer Date Record ed Do you have trouble getting a ride to medical visits or work? (Adult - for ages 18 years and over) Not on file 03/03/2024 Does your family have a hard time getting a ride to doctors visits? (Household - for ages 0-17 years) Not on file 03/03/2024 Has lack of transportation k ept you from medical appointments, meetings, work, or from getting things needed for daily living? Check all that apply. No 03/03/2024 Do you (or your family) have trouble finding or paying for a ride (transportation)? (Household - for ages 0-17 years) Not on file 03/03/2024 Housing Stability Answer Date Recorded Do you currently live in a s helter or have no steady place to sleep at night? No 03/03/2024 Do you think you are at risk of becoming homeless? (Adult - for ages 18 years and over) Not on file 03/03/2024 Does your family worry about paying for your home or becoming homeless? (Household - for ages 0-17 years) Not on file 0 03/03/2024 Are you homeless or worried that you might be in the future? No 03/03/2024 Are you (or your family) ann marie eless or worried that you might be in the future? (Household - for ages 0-17 years) Not on file Food Insecurity Answer Date Recorded Do you need food for this week? No 03/03/2024 Are you able to get enough f ood for your family? (Household - for ages 0-17 years) Not on file 03/03/2024 Does your family need food t his week? (Household - for ages 0-17 years) Not on file 03/03/2024 Do you always have enough fo od for your family? (Household - for ages 0-17 years) Not on file 03/03/2024 Food Insecurity Answer Date Recorded Within the past 12 months, y ou worried that your food would run out before you got the money to buy more. Sometimes true Within the past 12 months, t he food you bought just didn't last and you didn't have money to get more. Never true Do you need food for this week? No 03/03/2024 Sex and Gender Information Value Date Recorded Sex Assigned at Not on file Legal Sex Male 7:10 AM EST Gender Identity Not on file Sexual Orientation Not on file Occupation Industry Job Start Date Job End Date disability Not on file Not on file Not on file documented as of this encounter Functional Status * Does this person have serious difficulty walking or climbing stairs? Answer Date of Assessment Author Yes 10/28/2018 12:25 PM EDT documented as of this encounter Miscellaneous Notes * Telephone Encounter - Cornelia Stewart OSA - 08/17/2024 2:15 PM EDT Care At Home Outreach Call attempt: 1st Call Call result: Call Successful - Patient enrolled and agreed to visit. Appointment with: Forrest SALDAÑA Visit Date: 08/24/24 Visit Time: 1030am by video ZEINA Vázquez documented in this encounter Plan of Treatment Upcoming Encounters Date Type Department Care Team (Late st Contact Info) Description 08/24/2024 10:30 AM EDT Telemedicine Care at Home [address] [place] [address] Pushpa Watson CRNP [address] [place] [address] 10/07/2024 10:00 AM EDT Office Visit Ophthalmology, [address] [place] [address] Burton Schroeder DO [address] [place] [address] 11/05/2024 10:00 AM EDT Office Visit Nephrology, [place] [address] [place] [address] Rosie Merrill MD [address] [place] [address] 12/04/2024 1:20 PM EDT Office Visit Family Practice [facility] [address] [place] [address] Ryan Leyva MD [address] [place] [address] Health Maintenance Due Date Last Done Comments Albumin/Creatinine Ratio 09/30/2001 Diabetic Foot Exam 09/30/2001 Hepatitis B Vaccine (1 of 3 - 19+ 3-dose series) 09/30/2002 Pneumococcal Vaccine: Pediatrics (0 to 5 Years) and At-Risk Patients (6 to 18 Years and 19+ Years) (1 of 2 - PCV) 09/30/2002 COVID-19 Vaccine (3 - Moderna risk series) 09/06/2020 08/09/2020, 07/12/2020 Diabetic Eye Exam 12/18/2023 12/17/2022, , 09/15/2021, Additional history exists Influenza Vaccine (FLU shot) (#1) 2024 03/07/2020, 03/07/2020, 03/18/2019, Additional history exists HbA1c 05/01/2024 10/30/2023, 010 10/2023, 04/04/2023, Additional history exists Lipid Panel 12/06/2024 12/07/2019, 10/28/2018 Depression Screening 03/03/2025 03/03/2024 GFR 08/13/2025 08/13/2024, 07/12, 07/31/2024, Additional history exists DTap/Tdap Vaccines (3 - Td or Tdap) 06/21/2028 06/21/2018, 12/05/2011 HPV (Gardasil) Vaccine Aged Out No lo nger eligible based on patient's age to complete this topic MENINGOCOCCAL (MENACTRA/MENVEO) Aged Out No longer eligible based on patient's age to complete this topic Meningitis B Vaccine (Bexsero/Trumemba) Aged Out No longer eligible based on [...] Directives occurred with: Not Discussed Care Teams Programming Manager Relationship Specialty Start Date End Date Ryan Leyva MD [address] [place] [address] PCP - General Family Medicine 07/17/22 documented as of this encounter
--- OUTSIDE RECORDS SUMMARY | 2024-08-21 04:40 | External Medical Summary | Summary of Care ---
Author Name Unknown Organization [facility] Address [address] [place] [address] Phone [phone] Care Team Providers Care Transportation Director Name Role Phone Ryan Leyva MD Primary Care Provider [phone] Reason for Visit * Reason Onset Date Comments Fax 08/06/2024 Encounter Details Date Type Department Care Team ([facility] st Contact Info) Description 08/06/2024 Telephone Access Center, [facility] [address] [facility] *DO NOT REMOVE THIS DEPARTMENT* [place] [address] Services, Scheduling [address] [place] [address] Fax Allergies Active Allergy Reactions Criticality Noted Date Comments Iodinated Contrast Media 07/22/2024 H/O Kidney transplant Sulfamethoxazole Rash 06/05/2023 Trimethoprim Rash 06/05/2023 documented as of this encounter (statuses as of 08/07/2024) Medications Mycophenolate Mofetil 250 MG Oral Capsule (Cellcept) Take 3 Capsules by mouth in the morning and 3 Capsules before bedtime. 2 Active Tacrolimus 1 MG Oral Capsule (Prograf) 2 times a day. 2 mg in AM and 1 mg at bedtime 2 Active Aspirin 325 MG Oral Tablet Take 1 Tablet by mouth in the morning. Active Methadone HCl 10 MG/5ML Oral SolutionIndicati ons:pt current dose 105mg Take 50 mL by mouth daily. Active Santyl 250 UNIT/GM External Ointment 3 Active Triamcinolone Acetonide 0.1 % External Cream (Aristocort)Aida cations:Rash and nonspecific skin eruption,Scald burn Apply topically to affected area 2 times a day. On left forearm and Rt thigh till better 45 g 1 3 Active Additional Information Patient not taking.Reported on 08/04/2024 Clotrimazole-Bet amethasone 1-0.05 % External Cream (Lotrisone) 3 Active Silvadene 1 % External Cream Apply topically to affected area daily. 50 g 2 3 Active Additional Information Patient not taking.Reported on 08/04/2024 Zinc 220 (50 Zn) MG Oral Capsule [...] before bedtime. 180 Tablet 3 4 Active cloNIDine HCl 0.1 MG Oral Tablet (Catapres)Indica tions:pt taking 2 tablets in morning and 2 tablets at night Take 1 Tablet by mouth in the morning and 1 Tablet in the evening. 180 Tablet 3 4 Active Additional Information Patient taking differently: Take 1 Tablet by mouth in the morning and 1 Tablet in the evening.Pt takes 2 in the AM, Indications: pt taking 2 tablets in morning and 2 tablets at night, Reported on 07/22/2024 Cefadroxil 1 GM Oral Tablet Take 1 g by mouth in the morning and 1 g before bedtime. 20 Tablet 4 Active Rosuvastatin Calcium 10 MG Oral Tablet (Crestor)Indicat ions:Type 1 diabetes mellitus with hemoglobin A1c goal of less than 7.0% ([facility]) Take 1 Tablet by mouth in the morning. In the morning.. 90 Tablet 4 Active predniSONE 20 MG Oral Tablet (Deltasone) Take 4 tabs daily for 2 days, 3 tabs daily for 2 days, 2 tabs daily for 2 days, 1 tab daily for 2 days 20 Tablet 4 Active Additional Information Patient not taking.Reported on 08/04/2024 Pregabalin 75 MG Oral Capsule (Lyrica)Indicati ons:Venous stasis of both lower extremities Take 1 Capsule by mouth in the morning and 1 Capsule at noon and 1 Capsule in the evening. 90 Capsule 1 5 Active clonazePAM 1 MG Oral Tablet (KlonoPIN)Indica tions:JOB (generalized anxiety disorder) Take 1 Tablet by mouth every 8 hours as needed for Anxiety. 90 Tablet Active Hospital, Clinic, or Other Facility Administered [...] as of this encounter (statuses as of 08/07/2024) Active Problems Problem Noted Date Diagnosed Date [...] as of this encounter (statuses as of 08/07/2024) Resolved Problems Problem Noted Date Diagnosed Date [...] as of this encounter (statuses as of 08/07/2024) Immunizations Name Administration Dates Next Due COVID-19 [...] encounter Miscellaneous Notes * Telephone Encounter - Arlene Lewis OSA - 08/06/2024 4:10 PM EST Patient called in stating he needs a letter sent to [facility] with his appointment information fo 08/13 in order for them to take him. Please fax information. F: documented in this encounter Plan of Treatment Upcoming Encounters Date Type Department Care Team (Late st Contact Info) Description 08/13/2024 9:20 AM EST Office [facility] [address] [place] [facility] [place] [address] Rosie Merrill MD [address] [place] [facility] [place] [address] 10/07/2024 10:00 AM EDT Office Visit Ophthalmology, [facility] [address] [place] [address] Burton Schroeder DO [address] [place] [address] 12/04/2024 1:20 PM EDT Office Visit Family Practice [facility] [address] [place] [address] Ryan Leyva MD [address] [place] [address] Health Maintenance Due Date Last Done Comments [...] 12/07/2019, 10/28/2018 Depression Screening 03/03/2025 03/03/2024 GFR 07/31/2025 07/31/2024, 04/11, 03/26/2024, Additional history exists DTap/Tdap Vaccines (3 - [...] Directives occurred with: Not Discussed Care Teams Transportation Director Relationship Specialty Start Date End Date Ryan Leyva MD [address] [place] [address] PCP - General Family Medicine 07/17/22 documented as of this encounter
--- OUTSIDE RECORDS SUMMARY | 2024-08-21 04:40 | External Medical Summary ---
Author Name Unknown Address Unknown Organization K01:[facility] [place] [address] [address] [facility] [address] Laboratory Report Ordering Provider Test Date Status ERNESTINA IQBAL 08/04/2024 09:48:01 Final Cutoff Concentrations:
Drug Level
Amphetamines 500 ng/mL
Benzodiazepines 100 ng/mL
Cannabinoids 50 ng/mL
Cocaine Metabolite 150 ng/mL
Fentanyl 1 ng/mL
Hydrocodone / Hydromorphone 300 ng/mL
Methadone Metabolite 100 ng/mL
Morphine / Codeine 300 ng/mL
Oxycodone / Oxymorphone 100 ng/mL

Screening results are presumptive and can only be used for medical purposes. Positive screening results are reflexed to confirmatory testing. Observation Date Value Abnormality Reference (Units ) Status Amphetamines, Urine screen 08/04/2024 09:48:01 Negative Negative Final Benzodiazepines, Urine screen 08/04/2024 09:48:01 Positive Abnormal Negative Final Cannabinoids, Urine screen 08/04/2024 09:48:01 Negative Negative Final Cocaine Metabolite, Urine screen 08/04/2024 09:48:01 Negative Negative Final fentaNYL [Presence] in Urine by Screen method 08/04/2024 09:48:01 Negative Negative Final HYDROcodone [Presence] in Urine by Screen method 08/04/2024 09:48:01 Negative Negative Final 5-Diradmuysl-8,5-Dimeth yl-3,3-Diphenylpyrrolid ine (EDDP) [Presence] in Urine 08/04/2024 09:48:01 Positive Abnormal Negative Final Opiates, Urine screen 08/04/2024 09:48:01 Negative Negative Final oxyCODONE [Presence] in Urine by Screen method 08/04/2024 09:48:01 Negative Negative Final Performing Location LABORATORY C - [address] [facility] [address]
--- OUTSIDE RECORDS SUMMARY | 2024-08-21 04:40 | External Medical Summary | Summary of Care ---
Author Name Unknown Organization [facility] Address [address] [place] [address] Phone [phone] Care Team Providers Care Hand Box Coverer Name Role Phone Ryan Leyva MD Primary Care Provider [phone] Encounter Details Date Type Department Care Team (Late st Contact Info) Description 08/11/2024 Orders Only Family Practice [facility] [address] [place] [address] Ryan Leyva MD [address] [place] [address] Allergies Active Allergy Reactions Criticality Noted Date Comments Iodinated Contrast Media 07/22/2024 H/O Kidney transplant Sulfamethoxazole Rash 06/05/2023 Trimethoprim Rash 06/05/2023 documented as of this encounter (statuses as of 08/11/2024) Medications Mycophenolate Mofetil 250 MG Oral Capsule [...] as of this encounter (statuses as of 08/11/2024) Active Problems Problem Noted Date Diagnosed Date [...] as of this encounter (statuses as of 08/11/2024) Resolved Problems Problem Noted Date Diagnosed Date [...] as of this encounter (statuses as of 08/11/2024) Immunizations Name Administration Dates Next Due COVID-19 [...] PM EDT documented as of this encounter Plan of Treatment Upcoming Encounters Date Type Department Care Team (Late st Contact Info) Description 08/13/2024 9:20 AM EST Office Visit Nephrology, [place] [address] [place] [address] Rosie Merrill MD [address] [place] [address] 10/07/2024 10:00 AM EDT Office Visit Ophthalmology, [facility] [address] [place] [address] Burton Schroeder DO [address] [place] [address] 12/04/2024 1:20 PM EDT Office Visit Family Practice [facility] [address] [place] [address] Ryan Leyva MD [address] [place] [address] Health Maintenance Due Date Last Done Comments [...] 12/07/2019, 10/28/2018 Depression Screening 03/03/2025 03/03/2024 GFR 08/07/2025 08/07/2024, 07/12, 05/06/2024, Additional history exists DTap/Tdap Vaccines (3 - [...] Priority Date/Time Associated Diagnosis Comments CHEMISTRY-OUTSIDE Routine 08/07/2024 documented in this encounter Results * (ABNORMAL) CHEMISTRY-OUTSIDE (08/07/2024) Not all results display below - see scan for full detail SCAN INCLUDES: CMP, BILI DIRECT, ALT, CRP, CBC, SED RATE OUTSIDE LAB (SEE SCANNED REPORT) CREATININE 1.22 0.70 - 1.30 MG/DL OUTSIDE LAB (SEE SCANNED REPORT) EGFR 77 >60 ML/MIN OUTSIDE LAB (SEE SCANNED REPORT) POTASSIUM 4.6 3.5 - 5.1 MMOL/L OUTSIDE LAB (SEE SCANNED REPORT) GLUCOSE 97 70 - 110 MG/DL OUTSIDE LAB (SEE [...] LAB OUTSIDE LAB (SEE SCANNED REPORT) HEMOGLOBIN, [id number] LAB OUTSIDE LAB (SEE SCANNED REPORT) PHOSPHORUS-OUTSID E LAB OUTSIDE LAB (SEE SCANNED REPORT) PTH-OUTSIDE LAB OUTS ANÍBAL LAB (SEE SCANNED REPORT) MICROALBUMIN RATIO-OUTSIDE LAB OUTSIDE LA B (SEE SCANNED REPORT) PROTEIN, UA-OUTSIDE LAB OUTSIDE LAB (SEE SCANNED REPORT) HGB 12.1(A) 13.5 - 18.0 GM/DL OUTSIDE LAB (SEE SCANNED REPORT) 08/07/2024 [facility] Final Result OUTSIDE LAB (SEE SCANNED REPORT) documented in this encounter Advance Directives * Full Code (Latest Code Status on File) Date Activated Date Inactivated Comments 02/14/2019 10:34 PM 02/20/2019 3:48 PM This order r eflects the patients wishes and were consensually agreed upon. Question Answer Comments Discussion of Advance Directives occurred with: Not Discussed Care Teams Hand Box Coverer Relationship Specialty Start Date End Date Ryan Leyva MD [address] [facility] [place] [address] PCP - General Family Medicine 07/17/22 documented as of this encounter
--- OUTSIDE RECORDS SUMMARY | 2024-08-21 04:40 | External Medical Summary ---
Author Name Unknown Address Unknown Organization [id number]:[facility] - [address] [facility] [address] Laboratory Report Ordering Provider Test Date Status FARIDAERNESTINA 08/04/2024 09:48:01 Final Cutoff Concentrations:
D rug Level
Alpha-Hydroxyalprazolam 10 ng/mL
7-Aminoclonazepam 20 ng/mL
Nordiazepam 20 ng/mL
Oxazepam 20 ng/mL
Temazepam 20 ng/mL
Lorazepam 10 ng/mL

This test was developed and its performance characteristics determined by [employer]. It has not been cleared or approved by the [place] Food and Drug Administration. Observation Date Value Abnormality Reference (Units) Status METHODOLOGY 08/04/2024 09:48:01 LC-MS/MS Final Alpha hydroxyalprazolam cutoff [Mass/volume] in Urine for Confirmatory method 08/04/2024 09:48:01 Negative Negative Final 7-Aminoclonazepam [Mass/volume] in Urine by Confirmatory method 08/04/2024 09:48:01 >20 Above high normal Negative (ng/mL) Final Nordiazepam cutoff [Mass/volume] in Urine for Confirmatory method 08/04/2024 09:48:01 Negative Negative Final Oxazepam cutoff [Mass/volume] in Urine for Confirmatory method 08/04/2024 09:48:01 Negative Negative Final Temazepam cutoff [Mass/volume] in Urine for Confirmatory method 08/04/2024 09:48:01 Negative Negative Final LORazepam cutoff [Mass/volume] in Urine for Confirmatory method 08/04/2024 09:48:01 Negative Negative Final Performing Location [facility] - [facility] [address] [place] [address]
--- OUTSIDE RECORDS SUMMARY | 2024-08-21 04:40 | External Medical Summary | Summary of Care ---
Author Name Unknown Organization [facility] Address [address] [place] [address] Phone [phone] Care Team Providers Care Career Information Specialist Name Role Phone Ryan Leyva MD Primary Care Provider [phone] Reason for Visit * Reason Onset Date Comments Fax 08/06/2024 Encounter Details Date Type Department Care Team ([facility] st Contact Info) Description 08/06/2024 Telephone Access Center, [facility] [address] *DO NOT REMOVE THIS DEPARTMENT* [place] [address] Services, Scheduling [address] [place] [address] Fax Allergies Active Allergy Reactions Criticality Noted [...] hemoglobin A1c goal of less than 7.0% ([facility]) Take 1 Tablet by mouth [...] Miscellaneous Notes * Telephone Encounter - Charisse Ramos OSA - 08/07/2024 10:37 AM EST Appointment information faxed. * Telephone Encounter - Arlene Lewis OSA - 08/06/2024 4:10 PM EST Patient called in stating he needs a letter sent to [facility] with his appointment information fo 08/13 in order for them to take him. Please fax information. F: documented in this encounter Plan of Treatment Upcoming Encounters Date Type Department Care Team (Late st Contact Info) Description 08/13/2024 9:20 AM EST [facility] [place] [address] Rosie Merrill MD [address] [place] [address] 10/07/2024 10:00 AM EDT Office Visit Ophthalmology, [facility] [address] [place] [address] Burton Schroeder DO [address] [place] [address] 12/04/2024 1:20 PM EDT Office Visit Family Practice [facility] [address] [place] [address] Ryan Leyva MD [address] [place] [address] Health Maintenance Due Date Last Done Comments [...] Depression Screening 03/03/2025 03/03/2024 GFR 07/31/2025 07/31/2024, 11/2 12/2023, 03/26/2024, Additional history exists DTap/Tdap Vaccines (3 [...] Directives occurred with: Not Discussed Care Teams Career Information Specialist Relationship Specialty Start Date End Date Ryan Leyva MD [address] [facility] [place] [address] PCP - General Family Medicine 07/17/22 documented as of this encounter
--- OUTSIDE RECORDS SUMMARY | 2024-08-21 04:40 | External Medical Summary | Summary of Care ---
Author Name Unknown Organization [facility] Address [address] [place] [address] Phone [phone] Care Team Providers Care [facility] Name Role Phone Ryan Leyva MD Primary Care Provider [phone] Reason for Visit * Reason Comments Transplant Follow-Up * Evaluate & Treat - Unlimited Visits (Within 30 days (routine)) - Authorized Specialty Diagnoses / Procedures Referred By Contac t Referred To Contact Nephrology Diagnoses Kidney replaced by transplant Ryan Leyva MD [address] [place] [address] Phone: tel: fax: Referral ID Status Reason Start Date Expiration Date Visits Requested Visits Authorized [id number] Authorized Specialty Services Required 07/31/2024 [id number] Encounter Details Date Type Department Care Team ([facility] Contact Info) Description 08/13/2024 9:20 AM EST [facility] [address] [place] [address] Rosie Merrill MD [address] [place] [address] Kidney replaced by transplant*; Pancreas transplant status (HCC) Allergies Active Allergy Reactions Criticality Noted [...] daily. Active Santyl 250 UNIT/GM External Ointment 05/17/20 23 Active Triamcinolone Acetonide 0.1 % External Cream (Aristocort)Aida cations:Rash and nonspecific skin eruption,Scald burn Apply topically to affected area 2 times a day. On left forearm and Rt thigh till better 45 g 1 05/21/20 23 Active Clotrimazole-Bet amethasone 1-0.05 % External Cream (Lotrisone) 05/25/20 23 Active Silvadene 1 % External Cream Apply topically to affected area daily. 50 g 2 05/31/20 23 Active Zinc 220 (50 Zn) MG Oral Capsule Take 220 mg by mouth every morning. 06/13/19 24 Active Tamsulosin HCl 0.4 MG Oral Capsule (Flomax) Take 1 Capsule by mouth in the morning. 09/26/19 24 Active Zinc 25 MG Oral Tablet Take 3 Tablets by mouth in the morning and 3 Tablets before bedtime. Active Furosemide 20 MG Oral Tablet (Lasix) Take 1 Tablet by mouth daily as needed (fluid). take 1 tab by mouth daily as needed 30 Tablet 1 01/07/20 24 Active Carvedilol 6.25 MG Oral Tablet (Coreg) Take 1 Tablet by mouth in the morning and 1 Tablet before bedtime. 180 Tablet 3 01/07/20 24 Active Cefadroxil 1 GM Oral Tablet Take 1 g by mouth in the morning and 1 g before bedtime. 20 Tablet 01/14/20 24 Active Rosuvastatin Calcium 10 MG Oral Tablet (Crestor)Indicat ions:Type 1 diabetes mellitus with hemoglobin A1c goal of less than 7.0% ([facility]) Take 1 Tablet by mouth in the morning. In the morning.. 90 Tablet 04/10/20 24 Active Pregabalin 75 MG Oral Capsule (Lyrica)Indicati ons:Venous stasis of both lower extremities Take 1 Capsule by mouth in the morning and 1 Capsule at noon and 1 Capsule in the evening. 90 Capsule 1 07/09/19 25 Active clonazePAM 1 MG Oral Tablet (KlonoPIN)Indica tions:JOB (generalized anxiety disorder) Take 1 Tablet by mouth every 8 hours as needed for Anxiety. 90 Tablet 08/02/19 25 Active Piperacillin Sod-Tazobactam So 40.5 (36-4.5) GM Intravenous Solution Reconstituted (Zosyn) 08/05/19 25 Active Tacrolimus 0.5 MG Oral Capsule (Prograf) Take 2 Capsules by mouth daily AND 1 Capsule at bedtime. 180 Capsule 3 08/14/19 25 Active Mycophenolate Mofetil 250 MG Oral Capsule (Cellcept) Take 3 Capsules by mouth in the morning and 3 Capsules before bedtime. 180 Capsule 3 08/14/19 25 Active amLODIPine Besylate 5 MG Oral Tablet (Norvasc) Take 1 Tablet by mouth in the morning. 60 Tablet 2 08/14/19 25 Active cloNIDine HCl 0.1 MG Oral Tablet (Catapres)Indica tions:pt taking 2 tablets in morning and 2 tablets at night Take 0.1mg Tablet by mouth in the morning and 0.1mg Tablet in the evening for 3 days, and then 0.1 mg for 3 days and then stop 180 Tablet 3 08/14/19 25 Active Mycophenolate Mofetil 250 MG Oral Capsule (Cellcept) Take 3 Capsules by mouth in the morning and 3 Capsules before bedtime. 07/05/19 22 025 Discontinued(R efill) Tacrolimus 1 MG Oral Capsule (Prograf) 2 times a day. 2 mg in AM and 1 mg at bedtime 09/15/19 22 025 Discontinued cloNIDine HCl 0.1 MG Oral Tablet (Catapres)Indica tions:pt taking 2 tablets in morning and 2 tablets at night Take 1 Tablet by mouth in the morning and 1 Tablet in the evening. 180 Tablet 3 01/10/20 24 025 Discontinued predniSONE 20 MG Oral Tablet (Deltasone) Take 4 tabs daily for 2 days, 3 tabs daily for 2 days, 2 tabs daily for 2 days, 1 tab daily for 2 days 20 Tablet 05/05/20 24 025 Discontinued(M edication List Clean Up) Hospital, Clinic, or Other [...] Current Snuff Tobacco Cessation:Ready to Q uit: Not Asked; Counseling Given: Not Answered Comments:12/07/19-quit 2 yrs ago Alcohol Use Standard [...] Sign Reading Time Taken Comments Blood Pressure - - Pulse - - Temperature 36.5 C (97.7 F) 08/13/2024 9:36 AM ES T Respiratory Rate - - Oxygen Saturation - - Inhaled Oxygen Concentration - - Weight 96.8 kg (213 lb 6.4 oz) 08/13/2024 9:36 A M EST Height 177.8 cm (5' 10") 08/13/2024 9:36 AM EST Body Mass Index 30.62 08/13/2024 9:36 AM EST documented in this encounter Functional Status * Does this person have serious difficulty walking or climbing stairs? Answer Date of Assessment Author Yes 10/28/2018 12:25 PM EDT documented as of this encounter Progress Notes * Rosie Merrill MD - 08/13/2024 9:37 AM EST Images from the original note were not included. New patient Simultaneous Kidney and Pancreas Transplant Follow up Chief Complaint: SPK since 2020 History of Present Illness: This is a 38 year old male who presents for follow up of a Kidney transplant. Date of Transplant: 1 Transplant number: SPK April 2021 Donor kidney age/gender: 18 year old age, KDPI 9 % Original Disease: Type 1 DM CMV status: -/+ EBV status: ++ Induction therapy: Kael is his co-ordinator at [facility], [place], operated by [facility]--[phone] Called and got all the information. Patient was followed at [facility] until Jul 2022, was asked to come back in 8 weeks, and never showed up until mid next year 2023,he was basically lost to up. 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 Schroeder INJECTION OF EYE DRUG Right 06/21/2023 # 13 Avastin OD, Dr. Schroeder INJECTION OF EYE DRUG Right 10/03/2023 # 14 Avastin OD, Dr. Schroeder INJECTION OF EYE DRUG Left 10/31/2023 # [address] Schroeder INJECTION OF EYE DRUG Right 12/27/2023 # 15 Avastin OD, Dr. Schroeder INJECTION OF EYE DRUG Left 08/04/2024 #13 Avastin OS, Dr. Schroeder LASER TRABECULOPLASTY Right 09/10/2016 PRP [...] OU CONSENT DR. SCHROEDER/JOSE RAUL EXP. 06/21/24 OTHER (INFORMATION) Avastin Consent EXP 08/04/2025 - Dr. Schroeder PANCREAS SURGERY PROCEDURE NEC 2020 Pancreatic Transplant PARTIAL REMOVAL OF EYE FLUID Right 05/26/2018 S/P 23G PPV/MP/seg/EL for PDR/TRD/VH/ERM OD REMOVAL OF TONSILS, UNDER AGE 10 SURGICAL REMOVAL, ERUPTED TOOTH AND BONE SURGICAL REMOVAL, ERUPTED TOOTH AND BONE 01/2017 Social History Socioeconomic History Marital status: Single [...] Activity Alcohol use: No Drug use: No Comment: methadone since 2017 Sexual activity: Not Currently Partners: Female Other Topics Concern Not on file Social History Narrative Not on file Social Needs Financial Resource Strain: Low Risk (03/03/2024) Financial Resource Strain Do you have any trouble paying for your medications, or do you think you might in the future? (Adult - for ages 18 years and over): No Does your family have trouble paying for medicine? (Household - for ages 0-17 years): Not on file Food Insecurity: Food Insecurity Present (03/03/2024) Food Insecurity Worried About Running Out of Food in the Last Year: Sometimes true Ran Out of Food in the Last Year: Never true Do you need food for this week? (Adult - for ages 18 years and over): No Transportation Needs: No Transportation Needs (03/03/2024) Transportation Needs Do you have trouble getting a ride to medical visits or work? (Adult - for ages 18 years and over):Not on file Does your family have a hard time getting a ride to doctors visits? (Household - for ages 0-17 years): Not on file Has lack of transportation kept you from medical appointments, meetings, work, or from getting things needed for daily living? Check all that apply. (Adult - for ages 18 years and over): No Do you (or your family) have trouble finding or paying for a ride (transportation)? (Household - for ages 0-17 years): Not on file Social Connections: Socially Integrated (03/03/2024) Social Connections How often do you feel lonely or isolated from those around you? (Adult - for ages 18 years and over): Sometimes Housing Stability: Low Risk (03/03/2024) Housing Stability Do you currently live in a retirement or have no steady place to sleep at night? (Adult - for ages 18 years and over): No Do you think you are at risk of becoming homeless? (Adult - for ages 18 years and over): Not on file Does your family worry about paying for your home or becoming homeless? (Household - for ages 0-17 years): Not on file Are you homeless or worried that you might be in the future? (Adult - for ages 18 years and over): No Are you (or your family) homeless or worried that you might be in the future? (Household - for ages0-17 years): Not on file Current Outpatient Medications Medication Sig Dispense Refill Mycophenolate Mofetil 250 MG Oral Capsule (Cellcept) Take 3 Capsules by mouth in the morning and 3 Capsules before bedtime. Tacrolimus 1 MG Oral Capsule (Prograf) 2 times a day. 2 mg in AM and 1 mg at bedtime Aspirin 325 MG Oral Tablet Take 1 Tablet by mouth in the morning. Methadone HCl 10 MG/5ML Oral Solution Take 50 mL by mouth daily. Santyl 250 UNIT/GM External Ointment (Patient not taking: Reported on 08/04/2024) Triamcinolone Acetonide 0.1 % External Cream (Aristocort) Apply topically to affected area 2 times a day. On left forearm and Rt thigh till better (Patient not taking: Reported on 08/04/2024) 45 g 1 Clotrimazole-Betamethasone 1-0.05 % External Cream (Lotrisone) (Patient not taking: Reported on 08/04/2024) Silvadene 1 % External Cream Apply topically to affected area daily. (Patient not taking: Reported on 08/04/2024) 50 g 2 Zinc 220 (50 Zn) MG Oral Capsule Take 220 mg by mouth every morning. Tamsulosin HCl 0.4 MG Oral Capsule (Flomax) Take 1 Capsule by mouth in the morning. Zinc 25 MG Oral Tablet Take 3 Tablets by mouth in the morning and 3 Tablets before bedtime. Furosemide 20 MG Oral Tablet (Lasix) Take 1 Tablet by mouth daily as needed (fluid). take 1 tab by mouth daily as needed 30 Tablet 1 Carvedilol 6.25 MG Oral Tablet (Coreg) Take 1 Tablet by mouth in the morning and 1 Tablet before bedtime. 180 Tablet 3 cloNIDine HCl 0.1 MG Oral Tablet (Catapres) Take 1 Tablet by mouth in the morning and 1 Tablet in the evening. (Patient taking differently: Take 1 Tablet by mouth in the morning and 1 Tablet in the evening. Pt takes 2 in the AM) 180 Tablet 3 Cefadroxil 1 GM Oral Tablet Take 1 g by mouth in the morning and 1 g before bedtime. 20 Tablet 0 Rosuvastatin Calcium 10 MG Oral Tablet (Crestor) Take 1 Tablet by mouth in the morning. In the morning.. 90 Tablet 0 predniSONE 20 MG Oral Tablet (Deltasone) Take 4 tabs daily for 2 days, 3 tabs daily for 2 days, 2 tabs daily for 2 days, 1 tab daily for 2 days (Patient not taking: Reported on 08/04/2024) 20 Tablet 0 Pregabalin 75 MG Oral Capsule (Lyrica) Take 1 Capsule by mouth in the morning and 1 Capsule at noonand 1 Capsule in the evening. 90 Capsule 1 clonazePAM 1 MG Oral Tablet (KlonoPIN) Take 1 Tablet by mouth every 8 hours as needed for Anxiety. 90 Tablet 0 Current Facility-Administered Medications Medication Dose Route Frequency Provider Last Rate Last Admin bevaCIZumab (Avastin) inj 1.25 mg 1.25 mg Intravitreal PRN Burton Schroeder, DO 1.25 mg at 08/04/24 1045 ROPivacaine (Naropin) inj 1.5 mg 1.5 mg Perineural PRN Burton Schroeder, DO 1.5 mg at 045 Interval Hx/ROS: Pulmonary: cough denies sputum clear wheezing denies dyspnea denies triggers none oxygen none conserving device (C-PAP / BiPAP) CV: Denies problems GI: Denies problems : Denies problems Neuro: Denies problems Vital signs: Temp 36.5 C (97.7 F) (Tympanic) | Ht 1.778 m (5' 10") | Wt 96.8 kg (213 lb 6.4 oz)| BMI 30.62 kg/m | BSA 2.19 m Physical Exam: Constitutional: (+) chronically ill HEENT: normal: normocephalic, atraumatic; no masses, tenderness, or adenopathy Eyes: sclera and conjunctiva normal Neck: supple, normal range of motion CV: normal rate and rhythm, no murmur, gallops or rub Chest: normal respiratory effort, lungs clear to auscultation and percussion Abdomen: normal: soft, bowel sounds normal, no masses, tenderness or organomegaly Extremities: no clubbing, cyanosis, or edema, otherwise grossly normal, warm, and dry Skin: warm, dry, intact: LABS Lab Results Component Value Date TACROLIMUS - OUTSIDE LAB 9.4 10/02/2021 TACROLIMUS - OUTSIDE LAB 13.7 08/07/2021 No results found for: "CYCLOSPORINE" No results found for: "SIROLIMUS" No results found for: "EVEROLIMUS" Lab Results Component Value Date WBC 5.37 11/09/2020 WBC 7.96 12/07/2019 WBC 6.43 02/20/2019 WBC, URINE - [facility] 0-2 12/07/2019 WBC, URINE - [facility] 6-9 (A) 02/14/2019 No components found for: "HBG" Lab Results Component Value Date PLT 123 (L) 11/09/2020 PLT 197 12/07/2019 PLT 252 02/20/2019 Lab Results Component Value Date SODIUM - [facility] 136 11/01/2021 SODIUM - [facility] 134 (L) 09/14/2021 SODIUM - [facility] 132 (L) 12/07/2019 SODIUM - [facility] 136 02/20/2019 Lab Results Component Value Date POTASSIUM - [facility] 4.6 08/07/2024 POTASSIUM - [facility] 4.3 07/31/2024 POTASSIUM - [facility] 4.6 11/01/2021 POTASSIUM - [facility] 4.6 09/14/2021 POTASSIUM - [facility] 4.4 12/07/2019 POTASSIUM - [facility] 4.3 02/20/2019 Lab Results Component Value Date CHLORIDE - [facility] 106 11/01/2021 CHLORIDE - [facility] 105 09/14/2021 CHLORIDE - [facility] 91 (L) 12/07/2019 CHLORIDE - [facility] 97 (L) 02/20/2019 Lab Results Component Value Date CO2 - [facility] 23 11/01/2021 CO2 - [facility] 21 (L) 09/14/2021 CO2 - [facility] 29 12/07/2019 CO2 - [facility] 22 02/20/2019 Lab Results Component Value Date GLUCOSE - [facility] 97 08/07/2024 GLUCOSE - [facility] 90 07/31/2024 GLUCOSE - [facility] 95 11/01/2021 GLUCOSE - [facility] 85 09/14/2021 GLUCOSE - [facility] 227 (H) 12/07/2019 GLUCOSE - [facility] 238 (H) 02/20/2019 GLUCOSE METER POCT - [facility] 217 (H) 02/20/2019 GLUCOSE METER POCT - [facility] 211 (H) 02/20/2019 GLUCOSE, URINE - [facility] 1,000 (A) 12/07/2019 GLUCOSE, URINE - [facility] >1,000 (A) 02/14/2019 Lab Results Component Value Date BUN - [facility] 14 11/01/2021 BUN - [facility] 13 09/14/2021 BUN - [facility] 31 (H) 12/07/2019 BUN - [facility] 61 (H) 02/20/2019 Lab Results Component Value Date CREATININE - [facility] 1.22 08/07/2024 CREATININE - [facility] 1.16 07/31/2024 CREATININE - [facility] 1.07 11/01/2021 CREATININE - [facility] 1.23 09/14/2021 CREATININE - [facility] 7.4 (H) 12/07/2019 CREATININE - [facility] 8.0 (H) 02/20/2019 CREATININE, RANDOM URINE - [facility] 41 12/07/2019 CREATININE, RANDOM URINE - [facility] 94 10/28/2018 Lab Results Component Value Date CALCIUM - [facility] 9.1 11/01/2021 CALCIUM - [facility] 9.1 09/14/2021 CALCIUM - [facility] 10.2 12/07/2019 CALCIUM - [facility] 8.1 (L) 02/20/2019 Lab Results Component Value Date MAGNESIUM - [facility] 2.0 02/20/2019 MAGNESIUM - [facility] 2.0 02/19/2019 MAGNESIUM-OUTSIDE LAB 1.5 (L) 11/01/2021 MAGNESIUM-OUTSIDE LAB 1.6 09/14/2021 Lab Results Component Value Date PHOSPHORUS - [facility] 4.1 12/07/2019 PHOSPHORUS - [facility] 7.5 (H) 02/20/2019 PHOSPHORUS-OUTSIDE LAB 4.4 11/05/2023 PHOSPHORUS-OUTSIDE LAB 4.0 10/28/2023 PHOSPHORUS-OUTSIDE LAB 3.7 11/01/2021 PHOSPHORUS-OUTSIDE LAB 3.2 09/14/2021 No results found for: "HGBA1C" Latest Reference Range & Units 08/04/24 09:48 Amphetamine Screen, U Negative Negative Benzodiazepines Screen, U Negative Positive ! Cannabinoids Screen, U Negative Negative Cocaine Metabolite Screen, U Negative Negative Fentanyl Screen, U Negative Negative Hydrocodone Screen, U Negative Negative Methadone Metabolite Screen, U Negative Positive ! Morphine/Codeine Screen, U Negative Negative Oxycodone Screen, U Negative Negative Methadone Confirmation, U Negative ng/mL >4,000 (H) EDDP Confirmation, U Negative ng/mL >4,000 (H) 7-Aminoclonazepam Confirmation, U Negative ng/mL >20 (H) Alpha-Hydroxyalprazolam Confirmation, U Negative Negative Lorazepam Confirmation, U Negative Negative Nordiazepam Confirmation, U Negative Negative Temazepam Confirmation, U Negative Negative Oxazepam Confirmation, U Negative Negative !: Data is abnormal (H): Data is abnormally high Impression: 38 year old male status post renal transplant. The significant issues today are: 1. Kidney function: Kidney function appears to be stable No Amylase or Lipase seen, No [id number]--[id number] placed Lab Results Component Value Date CREATININE - [facility] 1.22 08/07/2024 CREATININE - [facility] 1.16 07/31/2024 CREATININE - [facility] 0.84 05/06/2024 CREATININE - [facility] 1.07 11/01/2021 CREATININE - [facility] 1.23 09/14/2021 CREATININE - [facility] 1.45 09/08/2021 CREATININE - [facility] 7.4 (H) 12/07/2019 CREATININE - [facility] 8.0 (H) 02/20/2019 CREATININE - [facility] 8.4 (H) 02/19/2019 CREATININE, RANDOM URINE - [facility] 41 12/07/2019 CREATININE, RANDOM URINE - [facility] 94 10/28/2018 CREATININE, RANDOM URINE - [facility] 155 10/18/2016 2. Immunosuppression: FK 1mg /0.5 , MMF 759 mg BID FK goal: 6-9 ng/ml 3. Blood pressure: BP Readings from Last 3 Encounters: 02/04/24 134/78 01/01/24 134/64 10/30/23 114/52 4. Diabetes: no Latest Reference Range & Units 10/30/23 09:27 Hemoglobin A1C 4.0 - 5.6 % 5.3 5. Lipids/CV risk: no 6. Wound: Healed: no 7. Viral screening: CMV:no Copies: will check BKV: no Copies: will check 8. Anemia: yes 12.5 FREDDY: no Leukopenia:no on: 08/13/2024 9. Bone health and Health Maintenance: will check Pth and vitamin D PTH last seen was 188 Answered all questions Patient is to repeat labs one month and return to clinic in 3 months. [place] from his last clinic visit at [facility] Orders placed this visit: Cbc with wbc differential Basic metabolic panel Tacrolimus level Urinalysis, reflex to urine albumin-creatinine ratio Hemoglobin a1c Amylase Lipase Cytomegalovirus dna, quantitative real-time pcr Bk virus dna, quantitative real-time pcr, blood Pth 25-hydroxy vitamin d C peptide Nephrology follow up appt (department use only) I spent a total of Greater than 55 mins (exact time 60 mins) on the date of service in preparation,delivery, and documentation( as well as reaching out to [facility] transplant coordinators, and review of previous charts on care everywhere) of the care provided to Bernard Jones excluding any time spent in the performance of separately billed services or time spent by another provider/QHP. Rosie Merrill MD, FRACP Transplant Nephrology [facility] 08/13/2024 9:37 AM documented in this encounter Miscellaneous Notes * Addendum Note - Rosie Merrill MD - 08/17/2024 11:14 AM EDTAddended by: ROSIE MERRILL on: 08/17/2024 11:14 AM Modules accepted: Orders documented in this encounter Plan of Treatment Upcoming Encounters Date Type Department Care Team (Late st Contact Info) Description 08/24/2024 10:30 AM EDT Telemedicine Care at Home [address] [place] [address] Pushpa Watson CRNP [address] [place] [address] 10/07/2024 10:00 AM EDT [facility] [address] [facility] [place] [address] [facility] [place] [address] 11/05/2024 10:00 AM EDT Office Visit Nephrology, [place] [address] [place] [address] Rosie Merrill MD [address] [place] [address] 12/04/2024 1:20 PM EDT Office Visit Family Practice [facility] [address] [place] [address] Ryan Leyva MD [address] [facility] [place] [address] Scheduled Orders Name Type Priority Associated Diagnoses Orde r Schedule CBC WITH WBC DIFFERENTIAL Lab Routine Kidney replaced by transplant Every 3 Months for 4 Occurrences starting 08/13/2024 until 08/13/2025 BASIC METABOLIC PANEL Lab Routine Kidney replaced by transplant Every 3 Months for 4 Occurrences starting 08/13/2024 until 08/13/2025 TACROLIMUS LEVEL Lab Routine Kidney replaced by transplant Every 3 Months for 4 Occurrences starting 08/13/2024 until 08/13/2025 URINALYSIS, REFLEX TO URINE ALBUMIN-CREATININE RATIO Lab STAT Kidney replaced by transplant Every 3 Months for 4 Occurrences starting 08/13/2024 until 08/13/2025 HEMOGLOBIN A1C Lab Routine Kidney replaced by transplant Pancreas transplant status (HCC) Every 3 Months for 4 Occurrences starting 08/13/2024 until 08/13/2025 AMYLASE Lab Routine Kidney replaced by transplant Pancreas transplant status (HCC) Expected: 08/13/2024, Expires: 08/13/2025 LIPASE Lab Routine Kidney replaced by transplant Pancreas transplant status (HCC) Every 3 Months for 4 Occurrences starting 08/13/2024 until 08/13/2025 CYTOMEGALOVIRUS DNA, QUANTITATIVE REAL-TIME PCR Lab Routine Kidney replaced by transplant Pancreas transplant status ([facility]) Every 3 Months for 4 Occurrences starting 08/14/2024 until 08/14/2025 BK VIRUS DNA, QUANTITATIVE REAL-TIME PCR, BLOOD Lab Routine Kidney replaced by transplant Pancreas transplant status ([facility]) Every 3 Months for 4 Occurrences starting 08/14/2024 until 08/14/2025 PTH Lab Routine Kidney replaced by transplant Pancreas transplant status ([facility]) Expected: 09/14/2024, Expires: 08/14/2025 25-HYDROXY VITAMIN D Lab Routine Kidney replaced by transplant Pancreas transplant status ([facility]) Expected: 08/28/2024, Expires: 08/14/2025 C-PEPTIDE Lab Routine Pancreas transplant status ([facility]) Expected: 08/17/2024, Expires: 08/17/2025 Health Maintenance Due Date Last Done Comments [...] as of this encounter Visit Diagnoses Diagnosis Kidney replaced by transplant- Primary Pancreas transplant status (HCC) documented in this encounter Advance Directives * Full Code (Latest Code Status on File) Date Activated Date Inactivated Comments 02/14/2019 10:34 PM 02/20/2019 3:48 PM This order reflects the patients wishes and were consensually agreed upon. Question Answer Comments Discussion of Advance Directives occurred with: Not Discussed Care Teams Regional Cra Relationship Specialty Start Date End Date Ryan Leyva MD [address] [place] [address] PCP - General Family Medicine 07/17/22 documented as of this encounter
--- OUTSIDE RECORDS SUMMARY | 2024-08-21 04:40 | External Medical Summary | Summary of Care ---
Author Name Unknown Organization [facility] Address [address] [place] [address] Phone [phone] Care Team Providers Care Human Resource Internship Name Role Phone Ryan Leyva MD Primary Care Provider [phone] [phone] Encounter Details Date Type Department Care Team (Late st Contact Info) Description 08/04/2024 Orders Only Family Practice [facility] [address] [place] [address] Ryan Leyva MD [address] [place] [address] Allergies Active Allergy Reactions Criticality Noted Date Comments Iodinated Contrast Media 07/22/2024 H/O Kidney transplant Sulfamethoxazole Rash 06/05/2023 Trimethoprim Rash 06/05/2023 documented as of this encounter (statuses as of 08/04/2024) Medications Mycophenolate Mofetil 250 MG Oral Capsule [...] till better 45 g 1 3 Active Clotrimazole-Bet amethasone 1-0.05 % External Cream [...] than 7.0% ([facility]) Take 1 Tablet by mouth in the morning. In the morning.. 90 Tablet 4 Active predniSONE 20 MG Oral Tablet (Deltasone) Take 4 tabs daily for 2 days, 3 tabs daily for 2 days, 2 tabs daily for 2 days, 1 tab daily for 2 days 20 Tablet 4 Active Pregabalin 75 MG Oral Capsule (Lyrica)Indicati ons:Venous stasis of both lower extremities Take 1 Capsule by mouth in the morning and 1 Capsule at noon and 1 Capsule in the evening. 90 Capsule 1 5 Active clonazePAM 1 MG Oral Tablet (KlonoPIN)Indica tions:JOB (generalized anxiety disorder) Take 1 Tablet by mouth every 8 hours as needed for Anxiety. 90 Tablet 5 Active Hospital, Clinic, or Other Facility [...] as of this encounter (statuses as of 08/04/2024) Active Problems Problem Noted Date Diagnosed Date [...] as of this encounter (statuses as of 08/04/2024) Resolved Problems Problem Noted Date Diagnosed Date [...] as of this encounter (statuses as of 08/04/2024) Immunizations Name Administration Dates Next Due COVID-19 [...] Care Team (Late st Contact Info) Description 08/04/2024 10:30 AM EST Office Visit Ophthalmology, [facility] [address] [place] [address] Burton Schroeder DO [address] [place] [address] 08/13/2024 9:20 AM EST Office Visit Nephrology, [place] [address] [place] [address] Rosie Merrill MD [address] [place] [address] 08/25/2024 5:40 PM EDT Office Visit Family Practice [facility] [address] [place] [address] Ryan Leyva MD [address] [place] [address] 10/07/2024 10:00 AM EDT Office Visit Ophthalmology, [facility] [address] [place] [address] Burton Schroeder DO [address] [place] [address] Health Maintenance Due Date Last Done Comments [...] 12/07/2019, 10/28/2018 Depression Screening 03/03/2025 03/03/2024 GFR 05/06/2025 07/31/2024, 04/11, 03/26/2024, Additional history exists DTap/Tdap [...] Priority Date/Time Associated Diagnosis Comments CHEMISTRY-OUTSIDE Routine 07/31/2024 documented in this encounter Results * (ABNORMAL) CHEMISTRY-OUTSIDE (07/31/2024) Not all results display below - see scan for full detail OUTSIDE LAB (SEE SCANNED REPORT) Comment:SEE SCAN - CBC, CMP, CRP CREATININE 1.16 0.70 - 1.30 MG/DL OUTSIDE LAB (SEE SCANNED REPORT) EGFR 82 ML/MIN OUTSIDE LA B (SEE SCANNED REPORT) POTASSIUM 4.3 3.5 - 5.1 MMOL/L OUTSIDE LAB (SEE SCANNED REPORT) GLUCOSE 90 70 - 110 MG/DL OUTSIDE LAB (SEE [...] LAB OUTSIDE LAB (SEE SCANNED REPORT) HEMOGLOBIN, A2W-JMXEFDA LAB OUTSIDE LAB (SEE SCANNED REPORT) PHOSPHORUS-OUTSID E LAB OUTSIDE LAB (SEE SCANNED REPORT) PTH-OUTSIDE LAB OUTS ANÍBAL LAB (SEE SCANNED REPORT) MICROALBUMIN RATIO-OUTSIDE LAB OUTSIDE LA B (SEE SCANNED REPORT) PROTEIN, UA-OUTSIDE LAB OUTSIDE LAB (SEE SCANNED REPORT) HGB 11.7(A) 13.5 - 18.0 G/DL OUTSIDE LAB (SEE SCANNED REPORT) 07/31/2024 us History Per Patient LABORATORY Final Result OUTSIDE LAB (SEE SCANNED REPORT) documented in this encounter Advance Directives * Full Code (Latest Code Status on File) Date Activated Date Inactivated Comments 02/14/2019 10:34 PM 02/20/2019 3:48 PM This order r eflects the patients wishes and were consensually agreed upon. Question Answer Comments Discussion of Advance Directives occurred with: Not Discussed Care Teams Human Resource Internship Relationship Specialty Start Date End Date Ryan Leyva MD [address] [place] [address] PCP - General Family Medicine 07/17/22 documented as of this encounter
--- OUTSIDE RECORDS SUMMARY | 2024-08-21 04:40 | External Medical Summary | Summary of Care ---
Author Name Unknown Organization [facility] Address [address] [place] [address] Phone [phone] Care Team Providers Care Tying Machine Operator Name Role Phone Ryan Leyva MD Primary Care Provider [phone] [phone] Encounter Details Date Type Department Care Team (Late st Contact Info) Description 08/13/2024 Result Scan Unspecified Department <No scans attached> [...] Take 220 mg by mouth every morning. 01/04/202 4 Active Tamsulosin HCl 0.4 MG Oral [...] mouth in the morning. 60 Tablet 2 5 Active cloNIDine HCl 0.1 MG Oral Tablet (Catapres)Indicati ons:pt taking 2 tablets in morning and 2 tablets at night Take 0.1mg Tablet by mouth in the morning and 0.1mg Tablet in the evening for 3 days, and then 0.1 mg for 3 days and then stop 180 Tablet 3 Active Hospital, Clinic, or Other Facility Administered [...] EDT Telemedicine Care at Home [address] [place] [address] Pushpa Watson CRNP [address] [place] [address] 10/07/2024 10:00 AM EDT Office Visit Ophthalmology, [facility] [address] [place] [address] Burton Schroeder DO 132 [place] [address] 11/05/2024 10:00 AM EDT Office Visit Nephrology, [place] [address] [place] [address] Rosie Merrill MD [address] [place] [address] 12/04/2024 1:20 PM EDT Office Visit Family Practice [facility] [place] [address] Ryan Leyva MD 132 [facility] [place] [address] Health Maintenance Due Date Last Done Comments [...] Date/Time Associated Diagnosis Comments OUTSIDE LAB RESULTS 08/13/2024 documented in this encounter Results * OUTSIDE LAB RESULTS (08/13/2024) 08/13/2024 us No Physician Data Unknown LABORATORY Final Result documented in this encounter Advance Directives * Full Code (Latest Code Status on File) Date Activated Date Inactivated Comments 02/14/2019 10:34 PM 02/20/2019 3:48 PM This order r eflects the patients wishes and were consensually agreed upon. Question Answer Comments Discussion of Advance Directives occurred with: Not Discussed Care Teams Tying Machine Operator Relationship Specialty Start Date End Date Ryan Leyva MD [address] [place] [address] PCP - General Family Medicine 07/17/22 documented as of this encounter
--- OUTSIDE RECORDS SUMMARY | 2024-08-21 04:40 | External Medical Summary ---
Author Name Unknown Address Unknown Organization [id number]:[facility] - [address] [facility] [address] Laboratory Report Ordering Provider Test Date Status ERNESTINA IQBAL 08/04/2024 09:48:01 Final Cutoff Concentrations:
D rug Level
Methadone 50 ng/mL
EDDP 50 ng/mL

This test was developed and its performance characteristics determined by [facility]. It has not been cleared or approved by the [place] Food and Drug Administration. Observation Date Value Abnormality Reference (Units ) Status METHODOLOGY 08/04/2024 09:48:01 LC-MS/MS Final Methadone, Urine confirmatory 08/04/2024 09:48:01 >4000 Above high normal Negative (ng/mL) Final 8-Jjiciktkre-1,5-Dime thyl-3,3-Diphenylpyrr olidine (EDDP) [Mass/volume] in Urine by Confirmatory method 08/04/2024 09:48:01 >4000 Above high normal Negative (ng/mL) Final Performing Location [facility] - [facility] [place] [address]
--- OUTSIDE RECORDS SUMMARY | 2024-08-21 04:40 | External Medical Summary | Summary of Care ---
Author Name Unknown Organization [facility] Address [address] [place] [address] Phone [phone] Care Team Providers Care Spiral Gear Generator Name Role Phone Ryan Leyva MD Primary Care Provider [phone] [phone] Reason for Visit * Reason Comments Outpatient Testing Encounter Details Date Type Department Care Team (Late st Contact Info) Description 08/04/2024 9:50 AM EST Laboratory Laboratory, [facility] [address] [place] [address] [facility] [address] [place] [address] JOB (generalized anxiety disorder) Allergies Active Allergy [...] A1c goal of less than 7.0% ([facility]) Take 1 Tablet by mouth in [...] 08/13/2024 9:20 AM EST Office Visit Nephrology, [place] [address] [place] [address] Rosie Merrill MD [address] [place] [address] 10/07/2024 10:00 AM EDT Office Visit Ophthalmology, [facility] [address] [place] [address] Burton Schroeder DO [address] [place] [address] 12/04/2024 1:20 PM EDT Office Visit Family Practice [facility] [address] [place] [address] Ryan Leyva MD [address] [place] [address] Pending Results Name Type Priority Associated Diagnoses Date /Time TOXICOLOGY, URINESCREEN W/ CONFIRMATION Lab Routine JOB (generalized anxiety disorder) 08/04/2024 9:48 AM EST EXTRA URINE ALIQUOT Lab Routine JOB (generalized anxiety disorder) 08/04/2024 9:48 AM EST Health Maintenance Due Date Last [...] Depression Screening 03/03/2025 03/03/2024 GFR 07/31/2025 07/31/2024, 1112/2023, 03/26/2024, Additional history exists DTap/Tdap Vaccines (3 [...] Directives occurred with: Not Discussed Care Teams Spiral Gear Generator Relationship Specialty Start Date End Date Ryan Leyva MD [address] [place] [address] PCP - General Family Medicine 07/17/22 documented as of this encounter
--- OUTSIDE RECORDS SUMMARY | 2024-08-21 04:40 | External Medical Summary | Summary of Care ---
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, bilateral (HCC) Procedures OK BEVACIZUMAB INJECTION OK INTRAVITREAL NJX PHARMACOLOGIC AGT SPX Burton Schroeder DO [facility] [place] [address] Phone: tel: fax: Ophthalmology, [facility] 132 [place] [address] Phone: tel: fax: Referral ID Status Reason Start Date Expiration Date V isits Requested Visits Authorized [id number] Authorized Precert 03/25/2024 06/09/2099 [id number] Encounter Details Date Type Department Care Team (Late st Contact Info) Description 08/04/2024 10:30 AM EST Office Visit Ophthalmology, [facility] 132 [facility] [place] [address] Burton Schroeder DO [facility] [place] [address] Proliferative diabetic retinopathy of both eyes associated with type 1 diabetes mellitus, unspecified proliferative retinopathy type (HCC)*; Vitreous hemorrhage of left eye (HCC) Allergies Active Allergy Reactions Criticality Noted [...] this encounter Progress Notes * Burton Schroeder, DO - 08/04/2024 10:30 AM EST [facility] [place] Nursing Notes: Nadja Bazzi LPN 08/04/24 1008 Signed Bernard Jones is a 38 year old year old male who presents for PDR OU. Last Office Visit: 07/22/2024 (in office), Visit date not found (telemedicine) Patient currently c/o both eye got blurry for a couple days. Over the weekend the right eye got better but the left eye is still blurry Are you diabetic? Yes. Do you check [...] left eye acquired and filed/scanned into chart. Base Eye Exam Visual Acuity (Snellen - Linear) Right Left Dist sc 20/40 -2 20/70 -1 Dist ph sc NI NI Tonometry (Tonopen, 10:07 AM) Right Left Pressure 19 15 Pupils Pupils APD Right PERRL None Left PERRL None Visual Rowe (Counting fingers) Right Left Full Restrictions Partial outer inferior temporal deficiency Extraocular Movement Right Left Full, Ortho Full, Ortho Neuro/Psych Oriented x3: Yes Dilation Both eyes: 0.5% Proparacaine @ 10:07 AM Dilation #2 Left eye: 1.0% Mydriacyl, 2.5% Phenylephrine @ 10:07 AM Dilation Comments Patient cautioned that effects of dilation may last 2-7 hours dependant upon individual reaction. It was discussed that driving while dilated is not recommended. EXTERNAL: The ocular adnexae are unremarkable. SLE: Lids/Lashes: wnl OU Conjunctiva/Sclera: quiet OU Cornea: clear OU Anterior Chamber: deep and quiet OU Iris: normal OU; no NVI OU Lens: +nsc OU Dilated fundus exam OD: vitreous: VH--improved optic nerve: 0.3, regressed NVD; no edema/pallor macula: +peer counselor vessels: ischemic midperiphery: +PRP, segmented membranes periphery: +peer counselor, +PRP, no RT/RD Dilated fundus exam OS: vitreous: VH-WORSE optic nerve: 0.3, +segmented fibrovascular tuft, no edema/pallor/NVD macula: +peer counselor vessels: ischemic midperiphery: +PRP, segmented membranes periphery: +peer counselor, +PRP, segmented fibrovascular membranes, no RT/RD OCT Interpretation: OD: thinning, +ERM - stable OS: thinning, [...] under anesthesia for PPV OS -s/p Avastin (12/27/23, 06/21/23, 12/17/22, 08/23/22, 07-01-20-Dr. Dorsey, 12-15-19, 03-31-19 for [facility], 10-09-18, 05-22-18, 12-05-17, 08-08-2017, 04-19-17, 11-22-16, 08-17-16) -7 months, has went 6 months OS: -PDR w/ dme on presentation -s/p 23G PPV/EL/segmentation OS for PDR OS -surgery date: 09/10/2016 -s/p Avastin OS (08/10/22, 06/29/22--[facility], 03-16-20, 08-07-19-Sunita, 06-02-20, 03-18-19, 07-08-18, 02-21-17, 09/05/16, 07/24/16) -VH 04/09/2023 -Avastin OS 10/31/23, 04/09/23 -9 months 08/04/2024 VH, Avastin 08/04/2024 -had pancreas/kidney transplant 04/30 [facility] 2. Dry eye -recommend OTC preservative-free artificial tears 4-6/day and prn. F/u 8-10 wks - dilate and OCT OU Burton Schroeder DO CC: Aris Ram, OD PCP: Douglas Dennison, [...] documented in this encounter Nursing Notes * Bria Chuadhry TECH - 08/04/2024 10:41 AM EST Bernard Mary SorianoRobert to receive 13 Avastin 2.75 mg Injection of the Left eye. Correct eye confirmed with patient and marked by Burton Schroeder DO Avastin 2.75 mg lot # [id number] Exp. Date: 09/29/2024 * Nadja Bazzi LPN - 08/04/2024 9:53 AM EST Bernard Jones is a 38 year old year old male who presents for PDR OU. Last Office Visit: 07/22/2024 (in office), Visit date not found (telemedicine) Patient currently c/o both eye got blurry for a couple days. Over the weekend the right eye got better but the left eye is still blurry Are you diabetic? Yes. Do you check [...] 08/13/2024 9:20 AM EST Office Visit Nephrology, [place] [address] [facility] [place] [address] Rosie Merrill MD [address] [facility] [place] [address] 10/07/2024 10:00 AM EDT Office Visit Ophthalmology, [facility] [address] [place] [address] Burton Schroeder DO [address] [place] [address] 12/04/2024 1:20 PM EDT Office Visit Family Practice [facility] [address] [place] [address] Ryan Leyva MD [address] [place] [address] Scheduled Orders Name Type Priority Associated Diagnoses Orde r Schedule RETINA SCAN DIAGNOSTIC IMAGE, POSTERIOR Procedures Routine Proliferative diabetic retinopathy of both eyes associated with type 1 diabetes mellitus, unspecified proliferative retinopathy type (HCC) Ordered: 08/04/2024 Health Maintenance Due Date Last Done Comments [...] mellitus, unspecified proliferative retinopathy type (HCC)- Primary Vitreous hemorrhage of left eye (HCC) Vitreous hemorrhage documented in this encounter Administered Medications Active Administered Medications - up to 3 most recent administrations Medication Order MAR Action Action Date Dose Rate Site bevaCIZumab (Avastin) inj 1.25 mg 1.25 mg, Intravitreal, PRN Other, Starting on Sat10/03/23 at 0924, Until Sat10/02/24 at 0923, For 365 daysIndications:Proliferative diabetic retinopathy of both eyes associated with type 1 diabetes mellitus, unspecified proliferative retinopathy type (HCC) Given 08/04/2024 10:45 AM EST 1.25 mg Eye Left Given 12/27/2023 10:20 AM EDT 1.25 mg E ye Right Given 10/31/2023 9:14 AM EDT 1.25 mg Ey e Left ROPivacaine (Naropin) inj 1.5 mg 1.5 mg, Perineural, PRN Other, Starting on Sat10/03/23 at 0924, Until Sat10/02/24 at 0923, For 365 daysIndications:Proliferative diabetic retinopathy of both eyes associated with type 1 diabetes mellitus, unspecified proliferative retinopathy type (HCC) Given 08/04/2024 10:45 AM EST 1.5 mg Eye Left Given 12/27/2023 10:20 AM EDT 1.5 mg E ye Right Given 10/31/2023 9:13 AM EDT 1.5 mg Ey e Left documented in this encounter Advance Directives * Full Code (Latest Code Status on File) Date Activated Date Inactivated Comments 02/14/2019 10:34 PM 02/20/2019 3:48 PM This order r eflects the patients wishes and were consensually agreed upon. Question Answer Comments Discussion of Advance Directives occurred with: Not Discussed Care Teams Hair Cutter Relationship Specialty Start Date End Date Ryan Leyva MD [address] [place] [address] PCP - General Family Medicine 07/17/22 documented as of this encounter
--- OUTSIDE RECORDS SUMMARY | 2024-08-21 04:40 | External Medical Summary | Summary of Care ---
Author Name Unknown Organization [facility] Address [address] [place] [address] Phone [phone] Care Team Providers Care Leather Carver Name Role Phone Ryan Leyva MD Primary Care Provider [phone] [phone] Reason for Visit * Reason Comments Transplant Follow-Up * Evaluate & Treat - Unlimited Visits (Within 30 days (routine)) - Authorized Specialty Diagnoses / Procedures Referred By Contac t Referred To Contact Nephrology Diagnoses Kidney replaced by transplant Ryan Leyva MD [address] [place] [address] Phone: tel: fax: Referral ID Status Reason Start Date Expiration Date Visits Requested Visits Authorized [id number] Authorized Specialty Services Required 07/31/[phone] Encounter Details Date Type Department Care Team ([facility] Contact Info) Description 08/13/2024 9:20 AM EST [place] [address] [place] [address] Rosie Merrill MD [address] [place] [address] Kidney replaced by transplant*; Pancreas transplant status (HCC) Allergies Active Allergy Reactions Criticality Noted Date Comments Iodinated Contrast Media 07/22/2024 H/O Kidney transplant Sulfamethoxazole Rash 06/05/2023 Trimethoprim Rash 06/05/2023 documented as of this encounter (statuses as of 08/14/2024) Medications Aspirin 325 MG Oral Tablet Take [...] less than 7.0% ([facility]) Take 1 Tablet by mouth [...] as of this encounter (statuses as of 08/14/2024) Active Problems Problem Noted Date Diagnosed Date [...] as of this encounter (statuses as of 08/14/2024) Resolved Problems Problem Noted Date Diagnosed Date [...] as of this encounter (statuses as of 08/14/2024) Immunizations Name Administration Dates Next Due COVID-19 [...] Merrill MD - 08/13/2024 9:37 AM EST New patient Simultaneous Kidney and Pancreas Transplant [...] Induction therapy: Kael is his co-ordinator at [facility]--[phone] Called and got all the information. Patient was followed at [facility] until Jul 2022, was asked to [...] has 3 weeks to go. [place] in [place] --ID , Dr Simona Mata is the ID physician Has retinopathy in both eyes, last week had Avastin , once in 2 months No chest pain or dyspnea BP at home 120/70 Major events since transplantation: Right foot cellulitis , admitted [facility] , [place] Treated with Vanc + Zosyn , [...] Right 07/01/2020 # 10 Avastin OD, Dr. Dorsey INJECTION OF EYE DRUG Left 06/29/2022 #9 [...] AVASTIN OU CONSENT SIGNED, DR. JOSE RAUL CASTROCELLANEOUS ORDER ([facility] ONLY) ACT 112 SIGNED 08/07/2019, DR. JOSE RAUL CASTROCELLANEOUS ORDER ([facility] ONLY) Bilateral 12/15/2019-12/14/2020 AVASTIN OU CONSENT SIGNED, DR. SCHROEDER OTHER (INFORMATION) Bilateral AVASTIN OU CONSENT DR. NUÑEZ EXP. 02/02/22 OTHER (INFORMATION) AVASTIN OU CONSENT SIGNED Dr. Schroeder/Jose Raul (exp 06-29-) OTHER (INFORMATION) Bilateral AVASTIN OU CONSENT DR. [...] Stability Do you currently live in a longterm or have no steady place to sleep [...] stable No Amylase or Lipase seen, No VpJ9d--hmmtbj placed Lab Results Component Value Date CREATININE [...] - [facility] 155 10/18/2016 2. Immunosuppression: FK , MMF FK goal: 6-8 ng/ml 3. Blood pressure: BP Readings from [...] and return to clinic in 3 months. Orders placed this visit: Cbc with wbc differential Basic metabolic panel Tacrolimus level Urinalysis, reflex to urine albumin-creatinine ratio Hemoglobin a1c Amylase Lipase Cytomegalovirus dna, quantitative real-time pcr Bk virus dna, quantitative real-time pcr, blood Pth 25-hydroxy vitamin d Nephrology follow up appt (department use only) I spent a total of Greater than 55 mins (exact time 60 mins) on the date of service in preparation,delivery, and documentation( as well as reaching out to [facility] transplant coordinators, and review of previous charts on care everywhere) of the care provided to Bernard Jones excluding any time spent in the performance of separately billed services or time spent by another provider/QHP. Rosie Merrill MD, FRACP Transplant Nephrology [facility] 08/13/2024 9:37 AM documented in this encounter Plan of Treatment Upcoming Encounters Date Type Department Care Team (Late st Contact Info) Description 10/07/2024 10:00 AM EDT Office Visit Ophthalmology, [facility] [address] [place] [address] Burton Schroeder DO [address] [place] [address] 11/05/2024 10:00 AM EDT [facility] [address] [place] [address] Rosie Merrill MD [address] [facility] [place] [address] 12/04/2024 1:20 PM EDT Office Visit Family Practice [facility] [address] [place] [address] Ryan Leyva MD [address] [place] [address] Scheduled Orders Name Type Priority Associated Diagnoses [...] Kidney replaced by transplant Pancreas transplant status ([facility]) Every 3 Months for 4 Occurrences starting 08/13/2024 until 08/13/2025 AMYLASE Lab Routine Kidney replaced by transplant Pancreas transplant status ([facility]) Expected: 08/13/2024, Expires: 08/13/2025 LIPASE Lab Routine Kidney replaced by transplant Pancreas transplant status ([facility]) Every 3 Months for 4 Occurrences starting 08/13/2024 until 08/13/2025 CYTOMEGALOVIRUS DNA, QUANTITATIVE REAL-TIME PCR Lab Routine Kidney replaced by transplant Pancreas transplant status ([facility]) Every 3 Months for 4 Occurrences starting 08/14/2024 until 08/14/2025 BK VIRUS DNA, QUANTITATIVE REAL-TIME PCR, BLOOD Lab Routine Kidney replaced by transplant Pancreas transplant status ([facility]) Every 3 Months for 4 Occurrences starting 08/14/2024 until 08/14/2025 PTH Lab Routine Kidney replaced by transplant Pancreas transplant status ([facility]) Expected: 09/14/2024, Expires: 08/14/2025 25-HYDROXY VITAMIN D Lab Routine Kidney replaced by transplant Pancreas transplant status ([facility]) Expected: 08/28/2024, Expires: 08/14/2025 Health Maintenance Due Date Last Done Comments [...] Directives occurred with: Not Discussed Care Teams Leather Carver Relationship Specialty Start Date End Date Ryan Leyva MD [address] [place] [address] PCP - General Family Medicine 07/17/22 documented as of this encounter
--- OUTSIDE RECORDS SUMMARY | 2024-08-21 04:40 | External Medical Summary | Summary of Care ---
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 [address] Phone: tel: fax: Referral ID Status Reason Start Date Expiration Date V isits Requested Visits Authorized [id number] Authorized Precert 03/25/2024 06/09/2099 [id number] Encounter Details Date Type Department Care Team (Late st Contact Info) Description 08/04/2024 10:30 AM EST Office Visit Ophthalmology, [facility] [address] [facility] [place] [address] Burton Schroeder DO [address] [facility] [place] [address] Proliferative diabetic retinopathy of both eyes associated [...] DO - 08/04/2024 10:30 AM EST [facility] [place] Nursing Notes: Nadja [...] nerve: 0.3, regressed NVD; no edema/pallor macula: +collet driller vessels: ischemic midperiphery: +PRP, segmented membranes periphery: +collet driller, +PRP, no RT/RD Dilated fundus exam OS: vitreous: VH-WORSE optic nerve: 0.3, +segmented fibrovascular tuft, no edema/pallor/NVD macula: +collet driller vessels: ischemic midperiphery: +PRP, segmented membranes periphery: +collet driller, +PRP, segmented fibrovascular membranes, no RT/RD OCT [...] VH, Avastin 08/04/2024 -had pancreas/kidney transplant 04/30 [facility] 2. Dry eye -recommend OTC preservative-free [...] in this encounter Nursing Notes * Bria Chaudhry TECH - 08/04/2024 10:41 AM EST Bernard Mary SorianoRobert to receive 13 Avastin 2.75 mg Injection of the Left eye. Correct eye confirmed with patient and marked by Burton Schroeder DO Avastin 2.75 mg lot # [id number] Exp. Date: 09/29/2024 * Nadja Bazzi LPN [...] 08/13/2024 9:20 AM EST Office Visit Nephrology, [place] [address] [facility] [place] [address] Rosie Merrill MD [address] [facility] [place] [address] 10/07/2024 10:00 AM EDT Office Visit Ophthalmology, [facility] [address] [place] [address] Burton Schroeder DO [address] [place] [address] 12/04/2024 1:20 PM EDT Office Visit Family Practice [facility] [address] [place] [address] Ryan Leyva MD [address] [place] [address] Scheduled Orders Name Type Priority Associated Diagnoses [...] Directives occurred with: Not Discussed Care Teams Student Development Coordinator Relationship Specialty Start Date End Date Ryan Leyva MD [address] [place] [address] PCP - General Family Medicine 07/17/22 documented as of this encounter
--- OUTSIDE RECORDS SUMMARY | 2024-08-21 04:41 | External Medical Summary | Summary of Care ---
Author Name Unknown Organization [facility] Address [address] [place] [address] Phone [phone] Care Team Providers Care Rope Cleaner Name Role Phone Ryan Leyva MD Primary Care Provider [phone] Encounter Details Date Type Department Care Team (Late st Contact Info) Description 07/29/2024 Result Scan Unspecified Department <No scans attached> Allergies Active Allergy Reactions Criticality Noted Date Comments Iodinated Contrast Media 07/22/2024 H/O Kidney transplant Sulfamethoxazole Rash 06/05/2023 Trimethoprim Rash 06/05/2023 documented as of this encounter (statuses as of 08/03/2024) Medications Mycophenolate Mofetil 250 MG Oral Capsule [...] than 7.0% (FORMERLY [facility]) Take 1 Tablet by mouth in the [...] Capsule in the evening. 90 Capsule 1 01/30/202 5 Active Hospital, Clinic, or Other Facility [...] as of this encounter (statuses as of 08/03/2024) Active Problems Problem Noted Date Diagnosed Date [...] as of this encounter (statuses as of 08/03/2024) Resolved Problems Problem Noted Date Diagnosed Date [...] as of this encounter (statuses as of 08/03/2024) Immunizations Name Administration Dates Next Due COVID-19 [...] 08/04/2024 10:30 AM EST Office Visit Ophthalmology, [facility] [address] [place] [address] Burton Schroeder, [address] [place] [address] 08/13/2024 9:20 AM EST Office Visit [facility] [address] [place] [address] Rosie Merrill MD [address] [place] [address] 08/25/2024 5:40 PM EDT Office Visit Family Practice [facility] [address] [place] [address] Ryan Leyva MD [address] [place] [address] 10/07/2024 10:00 AM EDT Office Visit Ophthalmology, [facility] [address] [place] [address] Burton Schroeder DO [address] [place] [address] Health Maintenance Due Date Last Done Comments [...] 10/28/2018 Depression Screening 03/03/2025 03/03/2024 GFR 05/06/2025 05/06/2024, 03/10, 12/15/2023, Additional history exists DTap/Tdap Vaccines (3 - [...] Date/Time Associated Diagnosis Comments OUTSIDE LAB RESULTS 07/29/2024 documented in this encounter Results * OUTSIDE LAB RESULTS (07/29/2024) 07/29/2024 us No Physician Data Unknown LABORATORY Final Result documented in this encounter Advance Directives * Full Code (Latest Code Status on File) Date Activated Date Inactivated Comments 02/14/2019 10:34 PM 02/20/2019 3:48 PM This order r eflects the patients wishes and were consensually agreed upon. Question Answer Comments Discussion of Advance Directives occurred with: Not Discussed Care Teams Rope Cleaner Relationship Specialty Start Date End Date Ryan Leyva MD [address] [place] [address] PCP - General Family Medicine 07/17/22 documented as of this encounter
--- OUTSIDE RECORDS SUMMARY | 2024-08-21 04:41 | External Medical Summary | Summary of Care ---
Author Name Unknown Organization [facility] Address [address] [place] [address] Phone [phone] Care Team Providers Care Air Intelligence Officer Name Role Phone Ryan Leyva MD Primary Care Provider [phone] Reason for Visit * Reason Onset Date Comments Medication Refill 07/28/2024 Encounter Details Date Type Department Care Team (Late st Contact Info) Description 07/28/2024 Refill Family Practice [facility] [address] [place] [address] Ryan Leyva MD [address] [place] [address] JOB (generalized anxiety disorder) Allergies Active Allergy Reactions Criticality Noted Date Comments Iodinated Contrast Media 07/22/2024 H/O Kidney transplant Sulfamethoxazole Rash 06/05/2023 Trimethoprim Rash 06/05/2023 documented as of this encounter (statuses as of 08/03/2024) Medications Mycophenolate Mofetil 250 MG Oral Capsule (Cellcept) Take 3 Capsules by mouth in the morning and 3 Capsules before bedtime. 07/05/19 22 Active Tacrolimus 1 MG Oral Capsule (Prograf) 2 times a day. 2 mg in AM and 1 mg at bedtime 09/15/19 22 Active Aspirin 325 MG Oral Tablet Take 1 Tablet by mouth in the morning. Active Methadone HCl 10 MG/5ML Oral SolutionIndicat ions:pt current dose 105mg Take 50 mL by mouth daily. Active Santyl 250 UNIT/GM External Ointment 05/17/20 Active Triamcinolone Acetonide 0.1 % External Cream (Aristocort)Ind ications:Rash and nonspecific skin eruption,Scald burn Apply topically to affected area 2 times a day. On left forearm and Rt thigh till better 45 g 1 05/21/20 Active Clotrimazole-Be tamethasone 1-0.05 % External Cream (Lotrisone) 05/25/20 Active Silvadene 1 % External Cream Apply [...] bedtime. 180 Tablet 3 01/07/20 24 Active cloNIDine HCl 0.1 MG Oral Tablet (Catapres)Indic ations:pt taking 2 tablets in morning and 2 tablets at night Take 1 Tablet by mouth in the morning and 1 Tablet in the evening. 180 Tablet 3 01/10/20 24 Active Additional Information Patient taking differently: Take [...] the morning.. 90 Tablet 04/10/20 24 Active predniSONE 20 MG Oral Tablet (Deltasone) Take 4 tabs daily for 2 days, 3 tabs daily for 2 days, 2 tabs daily for 2 days, 1 tab daily for 2 days 20 Tablet 05/05/20 24 Active Pregabalin 75 MG Oral Capsule (Lyrica)Indicat ions:Venous stasis of both lower extremities Take 1 Capsule by mouth in the morning and 1 Capsule at noon and 1 Capsule in the evening. 90 Capsule 1 07/09/19 25 Active clonazePAM 1 MG Oral Tablet (KlonoPIN)Indic ations:JOB (generalized anxiety disorder) Take 1 Tablet by mouth every 8 hours as needed for Anxiety. 90 Tablet 06/11/19 25 025 Discontinued Hospital, Clinic, or Other Facility Administered [...] encounter Miscellaneous Notes * Addendum Note - Adair Lloyd LPN - 08/03/2024 9:00 AM ESTAddended by: ADAIR LLOYD on: 08/03/2024 09:00 AM Modules accepted: Orders * Telephone Encounter - Adair Lloyd LPN - 08/03/2024 8:52 AM EST Called and spoke with pt. Pt states that he has an appointment in the building tomorrow and will have the urine tox done when in. Med use printed and placed in Autumn's folder for pt to sign. Order needs sent to provider once above completed. * Telephone Encounter - Racheal Ford nurse first assist - 08/01/2024 11:45 AM EST Patient is out of med. Racheal Devries Head Rose Grower II [facility] 08/01/2024 11:46 AM * Telephone Encounter - Noemi Rubio CRNP - 07/30/2024 8:25 AM EST Inboxologist note: This prescription can not be addressed by the Inboxology team due to: Needs up to date KAMINI and uds No refill can be given This prescription will remain in the PCP inbox to be addressed by the PCP upon their return, or a covering provider in that clinic. * Telephone Encounter - Burton Elizondo [facility] - 07/29/2024 3:05 PM EST Pending Prescriptions: Disp Refills clonazePAM 1 MG Oral Tablet (KlonoPIN) 90 Tab*0 Sig: Take 1 Tablet by mouth every 8 hours as needed for Anxiety. * Telephone Encounter - Burton Elizondo [facility] - 07/29/2024 3:04 PM EST I have reviewed the patients controlled substance dispensing history in the Prescription Drug Monitoring Program in compliance with the [place] regulations before prescribing a controlled substance. PDMP checked on 07/29/2024. Pending Prescriptions: Disp Refills clonazePAM 1 MG Oral Tablet (KlonoPIN) 90 Tab*0 Sig: Take 1 Tablet by mouth every 8 hours as needed for Anxiety. Last Visit: 02/04/2024 (in office), 05/26/2024 (telemedicine) Next Visit: 08/25/2024 Date medication was last filled: 06/11/2024 Date medication is due for refill: 07/11/2024 Pharmacy: [id number] [facility] Is this request for a controlled substance? Yes and Urine Drug Screen Not completed Toxicology results: Results for orders placed or performed during the hospital encounter of 02/14/19 TOX SCREEN, URINE, W/O CONFIRMATION Result Value Amphetamine NEGATIVE Benzodiazepines POSITIVE (A) THC-COOH Confirmation, U NEGATIVE Cocaine Metabolite NEGATIVE HYDROCODONE NEGATIVE Morphine / Codeine NEGATIVE OXYCODONE NEGATIVE METHADONE METABOLITE POSITIVE (A) NOTE: THE ABOVE SCREENING RESULTS ARE PRESUMPTIVE AND CAN ONLY BE USED FOR MEDICAL PURPOSES. CONFIRMATORY TESTING IS AVAILABLE UPON REQUEST. Cutoff Concentration Please approve if appropriate. Thank you, Shaw Elizondo, PharmD Clinical Pharmacist [facility] ([facility]) 07/29/24 3:04 PM [phone] * Telephone Encounter - Mariela Morejon, nurse first assist - 07/28/2024 3:42 PM EST Did you pend patient's preferred pharmacy and medication before forwarding?yes Pharmacy: [id number] Pending Prescriptions: Disp Refills clonazePAM 1 MG Oral Tablet (KlonoPIN) 90 Tab*0 Sig: Take 1 Tablet by mouth every 8 hours as needed for Anxiety. Last Visit: 02/04/2024 (in office), 05/26/2024 (telemedicine) Next Visit: 08/25/2024 If no future appointments scheduled, and last appointment is greater than a year ago, please schedule patient for a follow-up appointment Last date the medication was ordered: 06/11/2024 Is this request for a controlled substance?Yes, What was the last refill date 07/04/2024 w/ [id number] and dosage 1 mg and Urine Drug Screen Not completed Urine Drug Screen: Results for orders placed or performed during the hospital encounter of 02/14/19 TOX SCREEN, URINE, W/O CONFIRMATION Result Value Amphetamine NEGATIVE Benzodiazepines POSITIVE (A) THC-COOH Confirmation, U NEGATIVE Cocaine Metabolite NEGATIVE HYDROCODONE NEGATIVE Morphine / Codeine NEGATIVE OXYCODONE NEGATIVE METHADONE METABOLITE POSITIVE (A) NOTE: THE ABOVE SCREENING RESULTS ARE PRESUMPTIVE AND CAN ONLY BE USED FOR MEDICAL PURPOSES. CONFIRMATORY TESTING IS AVAILABLE UPON REQUEST. Cutoff Concentration Patient Phone Numbers Labs: Lab Results Component Value Date/Time CREAT 0.84 05/06/2024 12:00 AM CREAT 1.07 11/01/2021 10:22 AM CREAT 7.4 (H) 12/07/2019 12:02 PM POTASSIUM 4.5 05/06/2024 12:00 AM POTASSIUM 4.6 11/01/2021 10:22 AM POTASSIUM 4.4 12/07/2019 12:02 PM TSH 1.53 07/01/1998 12:34 PM LDL 126 12/07/2019 12:02 PM ALT 20 12/07/2019 12:02 PM HGBA1C 5.3 10/30/2023 09:27 AM HGBA1C 5.2 06/14/2023 12:00 AM HGBA1C 5.2 11/01/2021 10:22 AM HGBA1C 8.0 (H) 12/07/2019 12:02 PM documented in this encounter Plan of Treatment Upcoming Encounters Date Type Department Care Team (Late st Contact Info) Description 08/04/2024 10:30 AM EST Office Visit Ophthalmology, [facility] 132 [facility] [place] [address] Burton Schroeder, 132 [facility] [place] [address] 08/13/2024 9:20 AM EST Office Visit Nephrology, [place] [address] [facility] [place] [address] Rosie Merrill MD [address] [facility] [place] [address] 08/25/2024 5:40 PM EDT Office Visit Family Practice [facility] [address] [facility] [place] [address] Ryan Leyva MD [address] [place] [address] 10/07/2024 10:00 AM EDT Office Visit Ophthalmology, [facility] [address] [place] [address] Burton Schroeder DO [address] [place] [address] Scheduled Orders Name Type Priority Associated Diagnoses Orde r Schedule TOXICOLOGY, URINESCREEN W/ CONFIRMATION Lab Routine JOB (generalized anxiety disorder) Expected: 07/30/2024, Expires: 07/30/2025 Health Maintenance Due Date Last Done Comments [...] Directives occurred with: Not Discussed Care Teams Air Intelligence Officer Relationship Specialty Start Date End Date Ryan Leyva MD [address] [place] [address] PCP - General Family Medicine 07/17/22 documented as of this encounter
--- OUTSIDE RECORDS SUMMARY | 2024-08-21 04:41 | External Medical Summary | Summary of Care ---
Author Name Unknown Organization [facility] Address [address] [place] [address] Phone [phone] Care Team Providers Care Concrete Inspector Name Role Phone Ryan Leyva MD Primary Care Provider [phone] Reason for Referral * Evaluate & Treat - Unlimited Visits (Within 30 days (routine)) - Authorized Specialty Diagnoses / Procedures Referred By Contac t Referred To Contact Nephrology Diagnoses Kidney replaced by transplant Ryan Leyva MD [address] [place] [address] Phone: tel: fax: Referral ID Status Reason Start Date Expiration Date Visits Requested Visits Authorized [id number] Authorized Specialty Services Required 07/31/[phone] Question Answer Referral Priority Within 30 days (routine) Where should this appointment be scheduled? [facility] What condition is this patient being seen for? History of kidney transplant Reason for Visit * Reason Onset Date Comments Advice 07/29/2024 Encounter Details Date Type Department Care Team (Late st Contact Info) Description 07/29/2024 Telephone Family Practice [facility] [address] [place] [address] Ryan Leyva MD [address] [place] [address] Advice Allergies Active Allergy Reactions Criticality Noted Date Comments Iodinated Contrast Media 07/22/2024 H/O Kidney transplant Sulfamethoxazole Rash 06/05/2023 Trimethoprim Rash 06/05/2023 documented as of this encounter (statuses as of 07/31/2024) Medications Mycophenolate Mofetil 250 MG Oral Capsule [...] for 2 days 20 Tablet 4 Active clonazePAM 1 MG Oral Tablet (KlonoPIN)Indica tions:JOB (generalized anxiety disorder) Take 1 Tablet by mouth every 8 hours as needed for Anxiety. 90 Tablet 5 Active Pregabalin 75 MG Oral Capsule (Lyrica)Indicati ons:Venous stasis of both lower extremities Take 1 Capsule by mouth in the morning and 1 Capsule at noon and 1 Capsule in the evening. 90 Capsule 1 5 Active Hospital, Clinic, or Other Facility [...] as of this encounter (statuses as of 07/31/2024) Active Problems Problem Noted Date Diagnosed Date [...] as of this encounter (statuses as of 07/31/2024) Resolved Problems Problem Noted Date Diagnosed Date [...] as of this encounter (statuses as of 07/31/2024) Immunizations Name Administration Dates Next Due COVID-19 [...] encounter Miscellaneous Notes * Telephone Encounter - Belkis Miller OSA - 07/31/2024 3:15 PM EST Spoke w/ pt made appt in [place] for 08/13 * Telephone Encounter - Noemi Rubio CRNP - 07/31/2024 3:09 PM EST Inboxologist Note: Inboxologist Covering Provider PLEASE SCHEDULE All replies or additional communication must be routed to the PCP * Telephone Encounter - Puja Tompkins OSA - 07/29/2024 4:14 PM EST Pt needs a transplant team within the next 2 weeks. Pt used to go with [facility] now he has [facility] insurance and will need a team with [facility]. Pls call pt. documented in this encounter Plan of Treatment Upcoming Encounters Date Type Department Care Team (Late st Contact Info) Description 08/04/2024 10:30 AM EST Office Visit Ophthalmology, [facility] [address] [place] [address] Burton Schroeder DO [address] [place] [address] 08/13/2024 9:20 AM EST Office Visit Nephrology, [place] [address] [place] [address] Rosie Merrill MD [address] [place] [address] 08/25/2024 5:40 PM EDT Office Visit Family Practice [facility] [address] [place] [address] Ryan Leyva MD [address] [place] [address] 10/07/2024 10:00 AM EDT Office Visit Ophthalmology, [facility] [address] [place] [address] Burton Schroeder Eligio, DO [address] [place] [address] Scheduled Referrals Name Type Priority Associated Diagnoses Orde r Schedule NEPHROLOGY REFERRAL OP Referral Within 30 days (routine) Kidney replaced by transplant Ordered: 07/31/2024 Health Maintenance Due Date Last Done Comments [...] Diagnoses Diagnosis Kidney replaced by transplant- Primary documented in this encounter Advance Directives * Full Code (Latest Code Status on File) Date Activated Date Inactivated Comments 02/14/2019 10:34 PM 02/20/2019 3:48 PM This order r eflects the patients wishes and were consensually agreed upon. Question Answer Comments Discussion of Advance Directives occurred with: Not Discussed Care Teams Concrete Inspector Relationship Specialty Start Date End Date Ryan Leyva MD 132 [facility] [place] [address] PCP - General Family Medicine 07/17/22 documented as of this encounter
--- OUTSIDE RECORDS SUMMARY | 2024-08-21 04:41 | External Medical Summary | Summary of Care ---
Author Name Unknown Organization [facility] Address [address] [place] [address] Phone [phone] Care Team Providers Care Lockstitcher Name Role Phone Ryan Leyva MD Primary Care Provider [phone] Reason for Visit * Reason Onset Date Comments Medication Refill 07/28/2024 Encounter Details Date Type Department Care Team (Late st Contact Info) Description 07/28/2024 Refill Family Practice [facility] [address] [place] [address] Ryan Leyva MD [address] [place] [address] JOB (generalized anxiety disorder) Allergies Active Allergy [...] completed. * Telephone Encounter - Racheal Ford blindstitch machine operator - 08/01/2024 11:45 AM EST Patient is out of med. Racheal Devries Finance Consultant II [facility] Pharmacy Services 08/01/2024 11:46 [...] Encounter - Burton Elizondo [facility] - 07/29/2024 3:05 PM EST Pending Prescriptions: Disp Refills clonazePAM 1 MG Oral Tablet (KlonoPIN) 90 Tab*0 Sig: Take 1 Tablet by mouth every 8 hours as needed for Anxiety. * Telephone Encounter - Burton Elizondo [facility] - 07/29/2024 3:04 PM EST I [...] medication is due for refill: 07/11/2024 Pharmacy: [id number] [facility] Is this request for a [...] Clinical Pharmacy Services ([facility]) 07/29/24 3:04 PM [phone] * Telephone Encounter - Mariela Morejon, blindstitch machine operator - 07/28/2024 3:42 PM EST Did you pend patient's preferred pharmacy and medication before forwarding?yes Pharmacy: [id number] Pending Prescriptions: Disp Refills clonazePAM 1 [...] was the last refill date 07/04/2024 w/ [id number] and dosage 1 mg and Urine Drug [...] 08/04/2024 10:30 AM EST Office Visit Ophthalmology, [facility] 132 [facility] [place] [address] Burton Schroeder, 132 [facility] [place] [address] 08/13/2024 9:20 AM EST Office Visit Nephrology, [place] [address] [facility] [place] [address] Rosie [facility]ill [facility] [address] [facility] [place] [address] 08/25/2024 5:40 PM EDT Office Visit Family Practice [facility] [address] [facility] [place] [address] Ryan Leyva MD [address] [place] [address] 10/07/2024 10:00 AM EDT Office Visit Ophthalmology, [facility] [address] [place] [address] Burton Schroeder DO [address] [place] [address] Scheduled Orders Name Type Priority Associated Diagnoses [...] Directives occurred with: Not Discussed Care Teams Lockstitcher Relationship Specialty Start Date End Date Ryan Leyva MD [address] [place] [address] PCP - General Family Medicine 07/17/22 documented as of this encounter
--- OUTSIDE RECORDS SUMMARY | 2024-08-21 04:41 | External Medical Summary | Summary of Care ---
Author Name Unknown Organization [facility] Address [address] [place] [address] Phone [phone] Care Team Providers Care Mosaic Layer Name Role Phone Farida Do MD Primary Care Provider [phone] [phone] Reason for Visit * Reason Comments eRx-Medication Refill Encounter Details Date Type Department Care Team (Late st Contact Info) Description 07/31/2024 Refill Family Practice [facility] [address] [place] [address] Farida Do MD [address] [place] [address] JOB (generalized anxiety disorder) Allergies Active Allergy Reactions Criticality Noted Date Comments Iodinated Contrast Media 07/22/2024 H/O Kidney transplant Sulfamethoxazole Rash 06/05/2023 Trimethoprim Rash 06/05/2023 documented as of this encounter (statuses as of 08/02/2024) Medications Mycophenolate Mofetil 250 MG Oral Capsule [...] for Anxiety. 90 Tablet 08/02/19 25 Active clonazePAM 1 MG Oral Tablet [...] as of this encounter (statuses as of 08/02/2024) Active Problems Problem Noted Date Diagnosed Date [...] as of this encounter (statuses as of 08/02/2024) Resolved Problems Problem Noted Date Diagnosed Date [...] as of this encounter (statuses as of 08/02/2024) Immunizations Name Administration Dates Next Due COVID-19 [...] Telephone Encounter - Farida Do MD - 08/02/2024 1:57 PM ESTSigned Prescriptions: Disp Refills clonazePAM 1 MG Oral Tablet (KlonoPIN) 90 Tab*0 Sig: Take 1 Tablet by mouth every 8 hours as needed for Anxiety. Authorizing Provider: FARIDA DO * Telephone Encounter - Interface, [facility] - 08/02/2024 10:29 AM EST Pending Prescriptions: Disp Refills clonazePAM 1 MG Oral Tablet [Pharmacy Med *90 Tab*0 Sig: Take 1 Tablet by mouth every 8 hours as needed for Anxiety. * Telephone Encounter - Consuelo Tipton [facility] - 08/01/2024 1:18 PM EST Pending Prescriptions: Disp Refills clonazePAM 1 MG Oral Tablet [Pharmacy Med *90 Tab*0 Sig: Take 1 Tablet by mouth every 8 hours as needed for Anxiety. * Telephone Encounter - Consuelo Tipton [facility] - 08/01/2024 1:17 PM EST I have reviewed the patients controlled substance dispensing history in the Prescription Drug Monitoring Program in compliance with the [facility] regulations before prescribing a controlled substance. PDMP checked on 08/01/2024. Pending Prescriptions: Disp Refills clonazePAM 1 MG Oral Tablet (KlonoPIN) [P*90 Tab*0 Sig: Take 1 Tablet by mouth every 8 hours as needed for Anxiety. Last Visit: 02/04/2024 (in office), 05/26/2024 (telemedicine) Next Visit: 08/25/2024 Date medication was last filled: 06/11/24 Date medication is due for refill: 07/10/24 Pharmacy: [id number] Is this request for a controlled substance? Yes and Urine Drug Screen Not completed Toxicology results: Results for orders placed or performed during the hospital encounter of 02/14/19 TOX SCREEN, URINE, W/O CONFIRMATION Result Value Amphetamine Screen, U NEGATIVE Benzodiazepines Screen, U POSITIVE (A) Cannabinoids Screen, U NEGATIVE Cocaine Metabolite Screen, U NEGATIVE HYDROCODONE NEGATIVE Morphine/Codeine Screen, U NEGATIVE Oxycodone Screen, U NEGATIVE Methadone Metabolite Screen, U POSITIVE (A) NOTE: THE ABOVE SCREENING RESULTS ARE PRESUMPTIVE AND CAN ONLY BE USED FOR MEDICAL PURPOSES. CONFIRMATORY TESTING IS AVAILABLE UPON REQUEST. Cutoff Concentration Please approve if appropriate. Consuelo Wilde [facility] Clinical Pharmacist [facility] ([facility]) [phone] documented in this encounter Plan of Treatment Upcoming Encounters Date Type Department Care Team (Late st Contact Info) Description 08/04/2024 10:30 AM EST Office Visit Ophthalmology, [facility] [address] [place] [address] Burton Schroeder, [address] [place] [address] 08/13/2024 9:20 AM EST Office Visit Nephrology, [place] [address] [place] [address] Rosie Merrill MD [address] [place] [address] 08/25/2024 5:40 PM EDT Office Visit Family Practice [facility] [address] [place] [address] Farida oD MD [address] [place] [address] 10/07/2024 10:00 AM EDT Office Visit Ophthalmology, [facility] [address] [address] Burton Schroeder DO [address] [place] [address] Health Maintenance Due Date Last Done Comments [...] Directives occurred with: Not Discussed Care Teams Mosaic Layer Relationship Specialty Start Date End Date Farida Do MD [address] [place] [address] PCP - General Family Medicine 07/17/22 documented as of this encounter
--- OUTSIDE RECORDS SUMMARY | 2024-08-21 04:42 | External Medical Summary | Summary of Care ---
Author Name Unknown Organization [facility] Address [address] [place] [address] Phone [phone] Care Team Providers Care Guest Services Coordinator Name Role Phone Ryan Leyva MD Primary Care Provider [phone] [phone] Reason for Visit * Reason Onset Date Comments FYI 07/28/2024 Encounter Details Date Type Department Care Team (Late st Contact Info) Description 07/28/2024 Telephone Family Practice [facility] [address] [place] [address] Ryan Leyva MD [address] [place] [address] FYI Allergies Active Allergy Reactions Criticality Noted Date [...] hemoglobin A1c goal of less than 7.0% ([facility]) Take 1 Tablet by mouth [...] encounter Miscellaneous Notes * Telephone Encounter - Amy Ramirez LPN - 07/31/2024 2:19 PM EST Noted. [facility] removed from list * Telephone Encounter - Mariela Morejon auto glass worker - 07/28/2024 3:45 PM EST Patient calling stating that he will no longer be getting his medications through [facility], states his medication will be sent to [facility] in [place] Thank you, Mariela Morejon Diamond Setter I [facility] ([facility]) 07/28/2024,3:47 PM documented in this encounter Plan of Treatment Upcoming Encounters Date Type Department Care Team (Late st Contact Info) Description 08/04/2024 10:30 AM EST Office Visit Ophthalmology, [facility] [address] [address] Burton Schroeder DO [address] [place] [address] 08/13/2024 9:20 AM EST Office Visit Nephrology, [place] [address] [place] [address] Rosie Merrill MD [address] [place] [address] 08/25/2024 5:40 PM EDT Office Visit Family Practice [facility] [address] [address] Ryan Leyva MD [address] [place] [address] 10/07/2024 10:00 AM EDT Office Visit Ophthalmology, [facility] [address] [place] [address] Burton Schroeder DO [address] [place] [address] Health Maintenance Due Date Last Done Comments [...] Directives occurred with: Not Discussed Care Teams Guest Services Coordinator Relationship Specialty Start Date End Date Ryan Leyva MD [address] [place] [address] PCP - General Family Medicine 07/17/22 documented as of this encounter
--- OUTSIDE RECORDS SUMMARY | 2024-08-21 04:42 | External Medical Summary | Summary of Care ---
Author Name Unknown Organization [facility] Address [address] [place] [address] Phone [phone] Care Team Providers Care Bracelet And Brooch Maker Name Role Phone Ryan Leyva MD Primary Care Provider [phone] Reason for Visit * Reason Onset Date Comments Referral 07/09/2024 Encounter Details Date Type Department Care Team ([facility] st Contact Info) Description 07/09/2024 Telephone Family Practice [facility] [address] [facility] [place] [address] Ryan Leyva MD [address] [facility] [place] [address] Referral Allergies Active Allergy Reactions Criticality Noted Date Comments Sulfamethoxazole Rash 06/05/2023 Trimethoprim Rash 06/05/2023 documented as of this encounter (statuses as of 07/09/2024) Medications Mycophenolate Mofetil 250 MG Oral Capsule [...] Active Additional Information Patient not taking.Reported on 05/26/2024 Clotrimazole-Bet amethasone 1-0.05 % External Cream (Lotrisone) 3 Active Silvadene 1 % External Cream Apply topically to affected area daily. 50 g 2 3 Active Additional Information Patient not taking.Reported on 05/26/2024 Zinc 220 (50 Zn) MG Oral Capsule [...] and 2 tablets at night, Reported on 05/26/2024 Cefadroxil 1 GM Oral Tablet Take 1 g by mouth in the morning and 1 g before bedtime. 20 Tablet 4 Active Additional Information Patient not taking.Reported on 05/26/2024 Linezolid 600 MG Oral Tablet (Zyvox) 4 Active Rosuvastatin Calcium 10 MG Oral Tablet (Crestor)Indicat ions:Type 1 diabetes mellitus with hemoglobin A1c goal of less than 7.0% ([facility]) Take 1 Tablet by mouth in the morning. In the morning.. 90 Tablet 4 Active predniSONE 20 MG Oral Tablet (Deltasone) Take 4 tabs daily for 2 days, 3 tabs daily for 2 days, 2 tabs daily for 2 days, 1 tab daily for 2 days 20 Tablet 4 Active Additional Information Patient not taking.Reported on 05/26/2024 Doxycycline Hyclate 100 MG Oral Tablet Delayed Release Take 1 Tablet by mouth in the morning and 1 Tablet before bedtime. Active clonazePAM 1 MG Oral Tablet (KlonoPIN)Indica [...] as of this encounter (statuses as of 07/09/2024) Active Problems Problem Noted Date Diagnosed Date [...] as of this encounter (statuses as of 07/09/2024) Resolved Problems Problem Noted Date Diagnosed Date [...] as of this encounter (statuses as of 07/09/2024) Immunizations Name Administration Dates Next Due COVID-19 [...] 03/03/2024 Does the household have a re lar source of income? (Household - for ages [...] ages 0-17 years) Not on file 03/03/2024 Sex and Gender Information Value Date [...] encounter Miscellaneous Notes * Telephone Encounter - Mariluz Ospina OSA - 07/09/2024 1:37 PM EST Working order from [facility]. * Telephone Encounter - Belkis Miller OSA - 07/09/2024 1:30 PM EST This ID referral is coming up a hospital discharge but it will not let me schedule please assist ifpt needs ID appt in [place] thank you documented in this encounter Plan of Treatment Upcoming Encounters Date Type Department Care Team (Late st Contact Info) Description 08/25/2024 5:40 PM EDT Office Visit Family Practice [facility] [address] [place] [address] Ryan Leyva MD [address] [place] [address] Health Maintenance Due Date Last Done Comments [...] Directives occurred with: Not Discussed Care Teams Bracelet And Brooch Maker Relationship Specialty Start Date End Date Ryan Leyva MD [address] [place] [address] PCP - General Family Medicine 07/17/22 documented as of this encounter
--- OUTSIDE RECORDS SUMMARY | 2024-08-21 04:42 | External Medical Summary | Summary of Care ---
Author Name Unknown Organization [facility] Address [address] [place] [address] Phone [phone] Care Team Providers Care Cashier Or Checker Stock Clerk Name Role Phone Ryan Leyva MD Primary Care Provider [phone] Reason for Visit * Reason Onset Date Comments Referral 07/09/2024 Encounter Details Date Type Department Care Team ([facility] st Contact Info) Description 07/09/2024 Telephone Family Practice [facility] [address] [facility] [place] [address] Ryan Leyva MD [address] [facility] [place] [address] Referral Allergies Active Allergy Reactions Criticality Noted [...] 7.0% ([facility]) Take 1 Tablet by mouth in the [...] 07/09/2024 1:37 PM EST Working order from [facility]. * Telephone Encounter - Belkis Miller OSA - 07/09/2024 1:30 PM EST This ID referral is coming up a hospital discharge but it will not let me schedule please assist ifpt needs ID appt in [place] thank you documented in this encounter Plan of Treatment Upcoming Encounters Date Type Department Care Team (Late st Contact Info) Description 08/25/2024 5:40 PM EDT Office Visit Family Practice [facility] [address] [place] [address] Ryan Leyva MD [address] [place] [address] Health Maintenance Due Date Last Done Comments [...] Directives occurred with: Not Discussed Care Teams Cashier Or Checker Stock Clerk Relationship Specialty Start Date End Date Ryan Leyva MD [address] [place] [address] PCP - General Family Medicine 07/17/22 documented as of this encounter
--- OUTSIDE RECORDS SUMMARY | 2024-08-21 04:42 | External Medical Summary | Summary of Care ---
Author Name Unknown Organization [facility] Address [address] [place] [address] Phone [phone] Care Team Providers Care Custom Miller Name Role Phone Ryan Leyva MD Primary Care Provider [phone] Reason for Visit * Reason Onset Date Comments Advice 05/28/2024 Encounter Details Date Type Department Care Team ([facility] st Contact Info) Description 05/28/2024 Telephone Family Practice [facility] [address] [facility] [place] [address] Ryan Leyva MD [address] [facility] [place] [address] Advice Allergies Active Allergy Reactions Criticality Noted Date Comments Sulfamethoxazole Rash 06/05/2023 Trimethoprim Rash 06/05/2023 documented as of this encounter (statuses as of 05/28/2024) Medications Mycophenolate Mofetil 250 MG Oral Capsule [...] hemoglobin A1c goal of less than 7.0% ([facility]) Take 1 Tablet by mouth in the morning. In the morning.. 90 Tablet 4 Active predniSONE 20 MG Oral Tablet (Deltasone) Take 4 tabs daily for 2 days, 3 tabs daily for 2 days, 2 tabs daily for 2 days, 1 tab daily for 2 days 20 Tablet 4 Active Additional Information Patient not taking.Reported on 05/26/2024 Pregabalin 75 MG Oral Capsule (Lyrica)Indicati ons:Venous stasis of both lower extremities Take 1 Capsule by mouth in the morning and 1 Capsule at noon and 1 Capsule in the evening. 90 Capsule 1 4 Active clonazePAM 1 MG Oral Tablet (KlonoPIN)Indica tions:JOB (generalized anxiety disorder) Take 1 Tablet by mouth every 8 hours as needed for Anxiety. 90 Tablet 4 Active Clotrimazole 10 MG Mouth/Throat Jordan (Mycelex Jordan)Indicatio ns:Thrush Take 1 Lozenge by mouth 5 times a day for 14 days. 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 Warm transfer to office Thank you, Mariela Morejon Restaurant Team Member I [facility] ([facility]) 05/28/2024,3:26 PM documented in this encounter Plan of Treatment Upcoming Encounters Date Type Department Care Team (Late st Contact Info) Description 08/25/2024 5:40 PM EDT Office Visit Family [facility] [address] [place] [address] Ryan Leyva MD [address] [place] [address] Health Maintenance Due Date Last Done Comments Pneumococcal Vaccine: Pediatrics (0 to 5 Years) and At-Risk Patients (6 to 64 Years) (1 of 2 - PCV) 09/30/1989 Albumin/Creatinine Ratio 09/30/2001 Diabetic Foot Exam 09/30/2001 [...] Directives occurred with: Not Discussed Care Teams Custom Miller Relationship Specialty Start Date End Date Ryan Leyva MD [address] [place] [address] PCP - General Family Medicine 07/17/22 documented as of this encounter
--- OUTSIDE RECORDS SUMMARY | 2024-08-21 04:42 | External Medical Summary | Summary of Care ---
Author Name Unknown Organization [facility] Address [address] [place] [address] Phone [phone] Care Team Providers Care Agricultural Economics Professor Name Role Phone Ryan Leyva MD Primary Care Provider [phone] [phone] Encounter Details Date Type Department Care Team (Late st Contact Info) Description 06/29/2024 Population Health External Data Unspecified Department Allergies Active Allergy Reactions Criticality Noted Date Comments Sulfamethoxazole Rash 06/05/2023 Trimethoprim Rash 06/05/2023 documented as of this encounter (statuses as of 06/29/2024) Medications Mycophenolate Mofetil 250 MG Oral Capsule [...] of less than 7.0% ([facility]) Take 1 Tablet by mouth in [...] the evening. 90 Capsule 1 4 Active Doxycycline Hyclate 100 MG Oral Tablet Delayed [...] as of this encounter (statuses as of 06/29/2024) Active Problems Problem Noted Date Diagnosed Date [...] as of this encounter (statuses as of 06/29/2024) Resolved Problems Problem Noted Date Diagnosed Date [...] as of this encounter (statuses as of 06/29/2024) Immunizations Name Administration Dates Next Due COVID-19 [...] 5:40 PM EDT Office Visit Family Practice [facility] [address] [place] [address] Ryan Leyva MD [address] [place] [address] Health Maintenance Due Date Last Done Comments [...] Directives occurred with: Not Discussed Care Teams Agricultural Economics Professor Relationship Specialty Start Date End Date Ryan Leyva MD [address] [place] [address] PCP - General Family Medicine 07/17/22 documented as of this encounter
--- OUTSIDE RECORDS SUMMARY | 2024-08-21 04:42 | External Medical Summary | Summary of Care ---
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, bilateral (HCC) Procedures FL BEVACIZUMAB INJECTION FL INTRAVITREAL NJX PHARMACOLOGIC AGT SPX Burton Schroeder DO [facility] [place] [address] Phone: tel: fax: Ophthalmology, [facility] 132 [place] [address] Phone: tel: fax: Referral ID Status Reason Start Date Expiration Date V isits Requested Visits Authorized [id number] Authorized Precert 03/25/2024 06/09/2099 [id number] Encounter Details Date Type Department Care Team (Late st Contact Info) Description 07/22/2024 11:45 AM EST Office Visit Ophthalmology, [facility] [address] [facility] [place] [address] Burton Schroeder DO [address] [place] [address] Proliferative diabetic retinopathy of both eyes associated with type 1 diabetes mellitus, unspecified proliferative retinopathy type (HCC)* Allergies Active Allergy Reactions Criticality Noted Date Comments Iodinated Contrast Media 07/22/2024 H/O Kidney transplant Sulfamethoxazole Rash 06/05/2023 Trimethoprim Rash 06/05/2023 documented as of this encounter (statuses as of 07/22/2024) Medications Mycophenolate Mofetil 250 MG Oral Capsule [...] till better 45 g 1 3 Active Clotrimazole-Be tamethasone 1-0.05 % External Cream (Lotrisone) 3 Active [...] 4 Active clonazePAM 1 MG Oral Tablet (KlonoPIN)Indic ations:JOB (generalized anxiety disorder) Take 1 Tablet by mouth every 8 hours as needed for Anxiety. 90 Tablet 5 Active Pregabalin 75 MG Oral Capsule (Lyrica)Indicat ions:Venous stasis of both lower extremities Take 1 Capsule by mouth in the morning and 1 Capsule at noon and 1 Capsule in the evening. 90 Capsule 1 5 Active Linezolid 600 MG Oral Tablet (Zyvox) 4 025 Discontin ued(Medic ation List Clean Up) Doxycycline Hyclate 100 MG Oral Tablet Delayed Release Take 1 Tablet by mouth in the morning and 1 Tablet before bedtime. 025 Discontin ued(Medic ation List Clean Up) Hospital, Clinic, or Other [...] as of this encounter (statuses as of 07/22/2024) Active Problems Problem Noted Date Diagnosed Date [...] as of this encounter (statuses as of 07/22/2024) Resolved Problems Problem Noted Date Diagnosed Date [...] as of this encounter (statuses as of 07/22/2024) Immunizations Name Administration Dates Next Due COVID-19 [...] encounter Progress Notes * Burton Schroeder, - 07/22/2024 11:45 AM EST [facility] [place] Nursing Notes: Lucille Loo RN 07/22/24 1100 Signed Bernard Jones is a 38 year old year old male who presents for PDR OU. Last Office Visit: 04/06/2024 (in office), Visit date not found (telemedicine) Patient currently states "right eye with lines and blurry-kind of came and went when was sick and now for the most part clear" Are you diabetic? Yes. Do you check [...] both eyes acquired and filed/scanned into chart. Base Eye Exam Visual Acuity (Snellen - Linear) Right Left Dist sc 20/30 -1 20/40 Dist ph sc NI Tonometry (Tonopen, 10:59 AM) Right Left Pressure 13 11 Pupils Pupils APD Right PERRL None Left PERRL None Visual Rowe (Counting fingers) Right Left Full Full Extraocular Movement Right Left Full, Ortho Full, Ortho Neuro/Psych Oriented x3: Yes Mood/Affect: Normal Dilation Both eyes: 0.5% Proparacaine @ 10:58 AM Dilation #2 Right eye: 1.0% Mydriacyl, 2.5% Phenylephrine @ 10:58 AM Dilation #3 Right eye: 1.0% Mydriacyl, 2.5% Phenylephrine @ 11:00 AM Dilation Comments Patient cautioned that effects [...] nerve: 0.3, regressed NVD; no edema/pallor macula: +master printer vessels: ischemic midperiphery: +PRP, segmented membranes periphery: +master printer, +PRP, no RT/RD Dilated fundus exam OS: vitreous: VH-resolved optic nerve: 0.3, +segmented fibrovascular tuft, no edema/pallor/NVD macula: +master printer vessels: ischemic midperiphery: +PRP, segmented membranes periphery: +master printer, +PRP, segmented fibrovascular membranes, no RT/RD OCT [...] 04/09/2023 -Avastin OS 10/31/23, 04/09/23 -9 months -had pancreas/kidney transplant 04/30 [facility] 2. Dry eye -recommend OTC preservative-free artificial tears 4-6/day and prn. F/u 8-10 wks - dilate and OCT OU Burton Schroeder DO CC: Aris Ram, LEILA PCP: Douglas Dennison DO documented in this encounter Nursing Notes * Lucille Loo RN - 07/22/2024 10:50 AM EST Bernard Jones is a 38 year old year old male who presents for PDR OU. Last Office Visit: 04/06/2024 (in office), Visit date not found (telemedicine) Patient currently states "right eye with lines and blurry-kind of came and went when was sick and now for the most part clear" Are you diabetic? Yes. Do you check [...] 5:40 PM EDT Office Visit Family Practice [facility] [address] [place] [address] Ryan Leyva MD [address] [place] [address] 10/07/2024 10:00 AM EDT Office Visit Ophthalmology, [facility] [address] [place] [address] Burton Schroeder, DO [address] [place] [address] Scheduled Orders Name Type Priority Associated Diagnoses Orde r Schedule RETINA SCAN DIAGNOSTIC IMAGE, POSTERIOR Procedures Routine Proliferative diabetic retinopathy of both eyes associated with type 1 diabetes mellitus, unspecified proliferative retinopathy type (HCC) Ordered: 07/22/2024 Health Maintenance Due Date Last Done Comments [...] Directives occurred with: Not Discussed Care Teams Lung Splitter Relationship Specialty Start Date End Date Ryan Leyva MD [address] [place] [address] PCP - General Family Medicine 07/17/22 documented as of this encounter
--- OUTSIDE RECORDS SUMMARY | 2024-08-21 04:42 | External Medical Summary | Summary of Care ---
Author Name Unknown Organization [facility] Address [address] [place] [address] Phone [phone] Care Team Providers Care Fitter Up Name Role Phone Farida Do MD Primary Care Provider [phone] Reason for Visit * Reason Onset Date Comments Medication Refill 07/08/2024 Encounter Details Date Type Department Care Team (Late st Contact Info) Description 07/08/2024 Refill [facility] Practice [facility] [address] [facility] [address] Farida Do MD [address] [place], [place] [id number] Venous stasis of both lower extremities Allergies Active Allergy Reactions Criticality Noted Date [...] daily. Active Santyl 250 UNIT/GM External Ointment 12/08/202 3 Active Triamcinolone Acetonide 0.1 % External Cream (Aristocort)Ind ications:Rash and nonspecific skin eruption,Scald burn Apply topically to affected area 2 times a day. On left forearm and Rt thigh till better 45 g 1 3 Active Additional Information Patient not taking.Reported on 05/26/2024 Clotrimazole-Be tamethasone 1-0.05 % External Cream (Lotrisone) [...] than 7.0% ([facility]) Take 1 Tablet by mouth in [...] bedtime. Active clonazePAM 1 MG Oral Tablet (KlonoPIN)Indic ations:JOB (generalized anxiety disorder) Take 1 Tablet by mouth every 8 hours as needed for Anxiety. 90 Tablet 5 Active Pregabalin 75 MG Oral Capsule (Lyrica)Indicat ions:Venous stasis of both lower extremities Take 1 Capsule by mouth in the morning and 1 Capsule at noon and 1 Capsule in the evening. 90 Capsule 1 5 Active Pregabalin 75 MG Oral Capsule (Lyrica)Indicat ions:Venous stasis of both lower extremities Take 1 Capsule by mouth in the morning and 1 Capsule at noon and 1 Capsule in the evening. 90 Capsule 1 4 025 Discontin ued(Refil l) Hospital, Clinic, or Other Facility Administered Medication [...] Telephone Encounter - Farida Do MD - 07/09/2024 10:13 AM ESTSigned Prescriptions: Disp Refills Pregabalin 75 MG Oral Capsule (Lyrica) 90 Cap*1 Sig: Take 1 Capsule by mouth in the morning and 1 Capsule at noon and 1 Capsule in the evening. Authorizing Provider: FRAIDA DO * Telephone Encounter - Dion Cordova RP - 07/09/2024 9:44 AM ESTPending Prescriptions: Disp Refills Pregabalin 75 MG Oral Capsule (Lyrica) 90 Cap*1 Sig: Take 1 Capsule by mouth in the morning and 1 Capsule at noon and 1 Capsule in the evening. * Telephone Encounter - Dion Cordova RPh - 07/09/2024 9:42 AM EST I have reviewed the patients controlled substance dispensing history in the Prescription Drug Monitoring Program in compliance with the [facility] regulations before prescribing a controlled substance. PDMP checked on 07/09/2024. Pending Prescriptions: Disp Refills Pregabalin 75 MG Oral Capsule (Lyrica) 90 Cap*1 Sig: Take 1 Capsule by mouth in the morning and 1 Capsule at noon and 1 Capsule in the evening. Last Visit: 02/04/2024 (in office), 05/26/2024 (telemedicine) Next Visit: 08/25/2024 Date medication was last filled:06/08/24 Date medication is due for refill: 07/07/24 [facility] [id number] [place] [address] Is this request for a controlled substance? [...] Cutoff Concentration Please approve if appropriate. Thanks, Dion Cordova Rp, Pharm D. Clinical Pharmacist [facility] Services/[facility] [phone] 07/09/2024,9:42 AM * Telephone Encounter - Su Soares PHARM Tech - 07/08/2024 9:10 AM EST Did you pend patient's preferred pharmacy and medication before forwarding?yes Pharmacy: [facility] [id number] [place] [address] Pending Prescriptions: Disp Refills Pregabalin 75 MG Oral Capsule (Lyrica) 90 Cap*1 Sig: Take 1 Capsule by mouth in the morning and 1 Capsule at noon and 1 Capsule in the evening. Last Visit: 02/04/2024 (in office), 05/26/2024 (telemedicine) Next Visit: 08/25/2024 If no future appointments scheduled, and last appointment is greater than a year ago, please schedule patient for a follow-up appointment Last date the medication was ordered: 05/08/2024 Is this request for a controlled substance?Yes, What was the last refill date 05/08/2024 w/ quantity 90 and dosage 75mg and Urine Drug Screen was completed Urine [...] UPON REQUEST. Cutoff Concentration Patient Phone Numbers 91 [employer] [phone] Labs: Lab Results Component Value Date/Time CREAT [...] 8.0 (H) 12/07/2019 12:02 PM Thank you, Su Soares School Transportation Supervisor I [facility] ([facility]) 07/08/2024,9:12 AM documented in this encounter Plan of Treatment Upcoming Encounters Date Type Department Care Team (Late st Contact Info) Description 08/25/2024 5:40 PM EDT Office Visit [facility] [address] [place] [address] Farida Do MD [address] [place] [address] Health Maintenance Due Date Last Done Comments [...] Diagnosis Venous stasis of both lower extremities documented in this encounter Advance Directives * Full Code (Latest Code Status on File) Date Activated Date Inactivated Comments 02/14/2019 10:34 PM 02/20/2019 3:48 PM This order r eflects the patients wishes and were consensually agreed upon. Question Answer Comments Discussion of Advance Directives occurred with: Not Discussed Care Teams Fitter Up Relationship Specialty Start Date End Date Farida Do MD [address] [facility] [place] [address] PCP - General Family Medicine 07/17/22 documented as of this encounter
--- OUTSIDE RECORDS SUMMARY | 2024-08-21 04:42 | External Medical Summary | Summary of Care ---
Author Name Unknown Organization [facility] Address [address] [place] [address] Phone [phone] Care Team Providers Care Student Life Dean Name Role Phone Farida Do MD Primary Care Provider [phone] Reason for Visit * Reason Comments eRx-Medication Refill Encounter Details Date Type Department Care Team (Late st Contact Info) Description 06/09/2024 Refill Family Practice [facility] [address] [place] [address] Farida Do MD [address] [place] [address] JOB (generalized anxiety disorder) Allergies Active Allergy Reactions Criticality Noted Date Comments Sulfamethoxazole Rash 06/05/2023 Trimethoprim Rash 06/05/2023 documented as of this encounter (statuses as of 06/11/2024) Medications Mycophenolate Mofetil 250 MG Oral Capsule [...] till better 45 g 1 05/21/20 Active Additional Information Patient not taking.Reported on 05/26/2024 Clotrimazole-Be tamethasone 1-0.05 % External Cream (Lotrisone) 05/25/20 Active Silvadene 1 % External Cream Apply topically to affected area daily. 50 g 2 05/31/20 Active Additional Information Patient not taking.Reported on 05/26/2024 Zinc 220 (50 Zn) MG Oral Capsule Take 220 mg by mouth every morning. 06/13/19 Active Tamsulosin HCl 0.4 MG Oral Capsule (Flomax) Take 1 Capsule by mouth in the morning. 09/26/19 Active Zinc 25 MG Oral Tablet Take 3 Tablets by mouth in the morning and 3 Tablets before bedtime. Active Furosemide 20 MG Oral Tablet (Lasix) Take 1 Tablet by mouth daily as needed (fluid). take 1 tab by mouth daily as needed 30 Tablet 1 01/07/20 Active Carvedilol 6.25 MG Oral Tablet (Coreg) [...] before bedtime. 20 Tablet 01/14/20 24 Active Additional Information Patient not taking.Reported on 05/26/2024 Linezolid 600 MG Oral Tablet (Zyvox) 01/30/20 Active Rosuvastatin Calcium 10 MG Oral Tablet [...] 2 days 20 Tablet 05/05/20 24 Active Additional Information Patient not taking.Reported on 05/26/2024 Pregabalin 75 MG Oral Capsule (Lyrica)Indicat ions:Venous stasis of both lower extremities Take 1 Capsule by mouth in the morning and 1 Capsule at noon and 1 Capsule in the evening. 90 Capsule 1 05/08/20 24 Active Doxycycline Hyclate 100 MG Oral Tablet Delayed Release Take 1 Tablet by mouth in the morning and 1 Tablet before bedtime. Active clonazePAM 1 MG Oral Tablet (KlonoPIN)Indic ations:JOB (generalized anxiety disorder) Take 1 Tablet by mouth every 8 hours as needed for Anxiety. 90 Tablet 06/11/19 25 Active clonazePAM 1 MG Oral Tablet (KlonoPIN)Indic ations:JOB (generalized anxiety disorder) Take 1 Tablet by mouth every 8 hours as needed for Anxiety. 90 Tablet 05/12/20 24 025 Discontinued Hospital, Clinic, or Other Facility [...] as of this encounter (statuses as of 06/11/2024) Active Problems Problem Noted Date Diagnosed Date [...] as of this encounter (statuses as of 06/11/2024) Resolved Problems Problem Noted Date Diagnosed Date [...] as of this encounter (statuses as of 06/11/2024) Immunizations Name Administration Dates Next Due COVID-19 [...] Telephone Encounter - Farida Do MD - 06/11/2024 4:29 PM ESTSigned Prescriptions: Disp Refills clonazePAM 1 MG Oral Tablet (KlonoPIN) 90 Tab*0 Sig: Take 1 Tablet by mouth every 8 hours as needed for Anxiety. Authorizing Provider: FARIDA DO * Telephone Encounter - Hugo Jansen [facility] - 06/11/2024 1:58 PM ESTPending Prescriptions: Disp Refills clonazePAM 1 MG Oral Tablet [Pharmacy Med *90 Tab*0 Sig: Take 1 Tablet by mouth every 8 hours as needed for Anxiety. * Telephone Encounter - Hugo Jansen [facility] - 06/11/2024 1:58 PM ESTPending Prescriptions: Disp Refills clonazePAM 1 MG Oral Tablet [Pharmacy Med *90 Tab*0 Sig: Take 1 Tablet by mouth every 8 hours as needed for Anxiety. * Telephone Encounter - Hugo Jansen [facility] - 06/11/2024 1:57 PM EST I have reviewed the patients controlled substance dispensing history in the Prescription Drug Monitoring Program in compliance with the [facility] regulations before prescribing a controlled substance. PDMP checked on 06/11/2024. Pending Prescriptions: Disp Refills clonazePAM 1 MG Oral Tablet (KlonoPIN) [P*90 Tab*0 Sig: Take 1 Tablet by mouth every 8 hours as needed for Anxiety. Last Visit: 02/04/2024 (in office), 05/26/2024 (telemedicine) Next Visit: 08/25/2024 Date medication was last filled: 05-12-24 Date medication is due for refill: 06-10-24 Pharmacy: [id number] Is this request for a controlled [...] REQUEST. Cutoff Concentration Please approve if appropriate. Billie Anderson.Ph. Clinical Pharmacist [facility] ([facility]) [address] [place] [address], [address]: [id number] 06/11/2024,1:57 PM * Telephone Encounter - Interface, [facility] - 06/11/2024 10:35 AM EST Pending Prescriptions: Disp Refills clonazePAM 1 MG Oral Tablet [Pharmacy Med *90 Tab*0 Sig: Take 1 Tablet by mouth every 8 hours as needed for Anxiety. * Telephone Encounter - Dari Wlash, [facility] - 06/09/2024 10:41 AM EST Did you pend patient's preferred pharmacy and medication before forwarding?yes Pharmacy: [id number] [facility] Pending Prescriptions: Disp Refills clonazePAM 1 MG Oral Tablet (KlonoPIN) [P*90 Tab*0 Sig: Take 1 Tablet by mouth every 8 hours as needed for Anxiety. Last Visit: 02/04/2024 (in office), 05/26/2024 (telemedicine) Next Visit: 08/25/2024 If no future appointments scheduled, and last appointment is greater than a year ago, please schedule patient for a follow-up appointment Last date the medication was ordered: [id number] Is this request for a controlled substance?Yes, What was the last refill date [id number] w/ quantity 90 and dosage 1mg and Urine Drug Screen Not completed Urine [...] UPON REQUEST. Cutoff Concentration Patient Phone Numbers [employer] [phone] Labs: Lab Results Component Value Date/Time CREAT [...] Description 08/25/2024 5:40 PM EDT Office Visit [facility] [address] [address] Farida Do MD [address] [place] [address] Health Maintenance Due Date Last Done Comments [...] occurred with: Not Discussed Care Teams Student Life Dean Relationship Specialty Start Date End Date Farida Do MD [address] [place] [address] PCP - General Family Medicine 07/17/22 documented as of this encounter
--- OUTSIDE RECORDS SUMMARY | 2024-08-21 04:42 | External Medical Summary | Summary of Care ---
Author Name Unknown Organization [facility] Address [address] [place] [address] Phone [phone] Care Team Providers Care Table Worker Packager Name Role Phone Ryan Leyva MD Primary Care Provider [phone] Reason for Visit * Reason Comments eRx-Medication Refill Encounter Details Date Type Department Care Team (Late st Contact Info) Description 06/10/2024 Refill Family Practice [facility] [address] [employer] [facility] [place] [address] Ryan Leyva MD [address] [facility] [place] [address] Venous stasis of both lower extremities; Diabetic Charcot foot (HCC) Allergies Active Allergy Reactions Criticality Noted Date Comments Sulfamethoxazole Rash 06/05/2023 Trimethoprim Rash 06/05/2023 documented as of this encounter (statuses as of 06/12/2024) Medications Mycophenolate Mofetil 250 MG Oral Capsule [...] as of this encounter (statuses as of 06/12/2024) Active Problems Problem Noted Date Diagnosed Date [...] as of this encounter (statuses as of 06/12/2024) Resolved Problems Problem Noted Date Diagnosed Date [...] as of this encounter (statuses as of 06/12/2024) Immunizations Name Administration Dates Next Due COVID-19 [...] Telephone Encounter - Cody Wylie RPh - 06/12/2024 7:38 AM EST Refused Prescriptions: Disp Refills Pregabalin 75 MG Oral Capsule (Lyrica) 90 Cap*4 Sig: TAKE 1 CAPSULE BY MOUTH THREE TIMES A DAY IN THE MORNING, AT NOON, AND IN THE EVENINGRefused By: CODY WYLIE for Refusal: Too soon documented in this encounter Plan of Treatment Upcoming Encounters Date Type Department Care Team (Late st Contact Info) Description 08/25/2024 5:40 PM EDT Office Visit Family Practice [facility] [address] [place] [address] Ryan Leyva MD [address] [place] [address] Scheduled Orders Name Type Priority Associated Diagnoses Orde r Schedule HEMOGLOBIN A1C Lab Routine Diabetic Charcot foot (HCC) Expected: 06/12/2024 (Approximate), Expires: 07/13/2025 Health Maintenance Due Date Last Done Comments [...] Diagnosis Venous stasis of both lower extremities Diabetic Charcot foot (HCC) Type II or unspecified type diabetes mellitus with neurological manifestations, not stated as uncontrolled documented in this encounter Advance Directives * Full Code (Latest Code Status on File) Date Activated Date Inactivated Comments 02/14/2019 10:34 PM 02/20/2019 3:48 PM This order r eflects the patients wishes and were consensually agreed upon. Question Answer Comments Discussion of Advance Directives occurred with: Not Discussed Care Teams Table Worker Packager Relationship Specialty Start Date End Date Ryan Leyva MD [address] [facility] [place] [address] PCP - General Family Medicine 07/17/22 documented as of this encounter
--- OUTSIDE RECORDS SUMMARY | 2024-08-21 04:42 | External Medical Summary | Summary of Care ---
Author Name Unknown Organization [facility] Address [address] [place] [address] Phone [phone] Care Team Providers Care Manager New Product Name Role Phone Ryan Leyva MD Primary Care Provider [phone] Reason for Visit * Reason Onset Date Comments TRIAGE 03/25/2024 Encounter Details Date Type Department Care Team ([facility] st Contact Info) Description 03/25/2024 Telephone Ophthalmology, [facility] [address] [place] [address] Burton Schroeder, [address] [place] [address] TRIAGE Allergies Active Allergy Reactions Criticality Noted Date Comments Sulfamethoxazole Rash 06/05/2023 Trimethoprim Rash 06/05/2023 documented as of this encounter (statuses as of 06/24/2024) Medications Mycophenolate Mofetil 250 MG Oral Capsule [...] 600 MG Oral Tablet (Zyvox) 4 Active Hospital, Clinic, or Other Facility Administered [...] as of this encounter (statuses as of 06/24/2024) Active Problems Problem Noted Date Diagnosed Date [...] as of this encounter (statuses as of 06/24/2024) Resolved Problems Problem Noted Date Diagnosed Date [...] as of this encounter (statuses as of 06/24/2024) Immunizations Name Administration Dates Next Due COVID-19 [...] Miscellaneous Notes * Telephone Encounter - Sara Galan OSA - 03/25/2024 2:21 PM EDT Images from the original note were not included. Who is calling? Patient Best way to reach patient or person calling, if call back needed by nurse or physician: [phone] Patient complaint/concern: Pt was due 6-8 weeks which is now, never scheduled. He's finding his eyes itchy,? stye light sensitive, ? cataracts Location: Right eye , both were burning, watering How long has it been going on: 1 weeks Timing: constant Associated symptoms: floaters If having pain, have patient rate pain on a scale from 0 to 10 (10 being the worst pain ever) Yes Characterization- / Scale- If patient needs Automatic add to Urgent Care (Acute clinic) appointment and declined what is the reason: [place] ONLY: NOTIFY PATIENT: PLEASE ALLOW US UP TO 48 HOURS FOR A RESPONSE *Person filling out this form: Once form completed, please route to p [phone] (triage nurse pool) . Please let patient know you have sent symptoms for triage and someone will reach out to patient with further instruction. Physician or nurse will triage & reply with instruction to appropriate pools as listed below. Thank you! *Physicians triaging patient, please reply to: -If only instructions needed- NO appointment scheduling needed, please route to p [phone] (triage nurse pool). -If instructions AND appointment needed, please route to p [phone] (triage nurse pool) and p [phone] (information receptionist pool). [place] ONLY: Route all messages to P [phone] [facility] Ophthalmology triage pool NOTIFY PATIENT: PLEASE ALLOW US UP TO 48 HOURS FOR A RESPONSE [place]: NOTIFY PATIENT: PLEASE ALLOW US UP TO 48 HOURS FOR A RESPONSE documented in this encounter Plan of Treatment Upcoming Encounters Date Type Department Care Team (Late st Contact Info) Description 08/25/2024 5:40 PM EDT Office Visit Family [facility] [address] [place] [address] Ryan Leyva MD [address] [place] [address] Health Maintenance Due Date Last Done Comments [...] occurred with: Not Discussed Care Teams Manager New Product Relationship Specialty Start Date End Date Ryan Leyva MD [address] [place] [address] PCP - General Family Medicine 07/17/22 documented as of this encounter
--- OUTSIDE RECORDS SUMMARY | 2024-08-21 04:42 | External Medical Summary | Summary of Care ---
Author Name Unknown Organization [facility] Address [address] [place] [address] Phone [phone] Care Team Providers Care Set Illustrator Name Role Phone Ryan Leyva MD Primary Care Provider [phone] Encounter Details Date Type Department Care Team (Late st Contact Info) Description 06/16/2024 Orders Only PATIENT PORTAL DO NOT DELETE THIS DEPT USED BY EVIN BUTLER [place] [id number] Allergies Active Allergy Reactions Criticality Noted Date Comments Sulfamethoxazole Rash 06/05/2023 Trimethoprim Rash 06/05/2023 documented as of this encounter (statuses as of 06/16/2024) Medications Mycophenolate Mofetil 250 MG Oral Capsule [...] than 7.0% ([facility]) Take 1 Tablet by mouth [...] as of this encounter (statuses as of 06/16/2024) Active Problems Problem Noted Date Diagnosed Date [...] as of this encounter (statuses as of 06/16/2024) Resolved Problems Problem Noted Date Diagnosed Date [...] as of this encounter (statuses as of 06/16/2024) Immunizations Name Administration Dates Next Due COVID-19 [...] for ages 0-17 years) Not on file 09 / Food Insecurity Answer Date Recorded Do you [...] 5:40 PM EDT Office Visit Family Practice [facility] [address] [place] [address] Ryan Leyva MD [address] [place] [address] Health Maintenance Due Date Last Done Comments [...] Directives occurred with: Not Discussed Care Teams Set Illustrator Relationship Specialty Start Date End Date Ryan Leyva MD [address] [place] [address] PCP - General Family Medicine 07/17/22 documented as of this encounter
--- OUTSIDE RECORDS SUMMARY | 2024-08-21 04:42 | External Medical Summary | Summary of Care ---
Author Name Unknown Organization [facility] Address [address] [place] [address] Phone [phone] Care Team Providers Care Truck Bracer Name Role Phone Ryan Leyva MD Primary Care Provider [phone] Reason for Visit * Reason Onset Date Comments Advice 05/28/2024 Encounter Details Date Type Department Care Team ([facility] st Contact Info) Description 05/28/2024 Telephone Family Practice [facility] [address] [facility] [place] [address] Ryan Leyva MD [address] [facility] [place] [address] Advice Allergies Active Allergy Reactions Criticality Noted [...] less than 7.0% ([facility]) Take 1 Tablet by mouth in the [...] encounter Miscellaneous Notes * Telephone Encounter - Makayla Casas LPN - 05/28/2024 4:05 PM EST Attempted to call patient, there was no answer, left voicemail. When patient returns call, ok for ZEINA to relay message, please refer to below documentation. If needed, can transfer to dedicated nurse line. Please re-iterate below information as per [facility]. * Telephone Encounter - Makayla Casas LPN - 05/28/2024 3:59 PM EST Receiving incoming phone call from [facility] as their Provider just sent 2 wk course of Doxycycline for pt. Their office will contact pt to notify. Advised if worsening foot swelling or symptoms 1-2 days after abx, pt needs to be referred to ER. * Telephone Encounter - Makayla Casas LPN - 05/28/2024 3:47 PM EST Pt transferred from [facility]. Pt seen by Dr. Angel Wolfe 05/26/2024 due to Osteomyletis of L foot as he was seen for Post op surgery. As per notes from [facility] notes from 05/26/24, pt was to be placed on 2 weeks of antibiotics. Pt states antibiotics were never sent to [facility] in [place]. I contacted [facility] in [place] who states abx were not sent. [facility] contacted and noted that abx were not sent as stated. Nurse states she is trying to contact Dr. Martino but cannot reach him for abx. Private nurse line given to [facility]. Will refer to ER due to worsening symptoms, if no call received within next 30 to 60 minutes as noted as well by Raegan Giles who saw pt on 05/26/24 for Telemed visit. * Telephone Encounter - Mariela Morejon microfilm mounter - 05/28/2024 3:24 PM EST Patient calling stating that he needs a referral for infectious disease. Warm transfer to office Thank you, Mariela Morejon Cartridge Gauger I [facility] ([facility]) 05/28/2024,3:26 PM documented in this encounter Plan of Treatment Upcoming Encounters Date Type Department Care Team (Late st Contact Info) Description 08/25/2024 5:40 PM EDT Office Visit [facility] [address] [place] [address] Ryan Leyva MD [address] [place] [address] Health Maintenance Due Date Last Done Comments [...] Directives occurred with: Not Discussed Care Teams Truck Bracer Relationship Specialty Start Date End Date Ryan Leyva MD [address] [place] [address] PCP - General Family Medicine 07/17/22 documented as of this encounter
--- OUTSIDE RECORDS SUMMARY | 2024-08-21 04:43 | External Medical Summary | Summary of Care ---
Author Name Unknown Organization [facility] Address [address] [place] [address] Phone [phone] Care Team Providers Care Licensed Prosthetist/Orthotist Name Role Phone Ryan Leyva MD Primary Care Provider [phone] Reason for Visit * Reason Comments Return Visit Per OV 12/31-- Had beck rgery on his foot 05/20/2024[place] foot and ankle-- has appt today to malini. Dr. 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 Active Tacrolimus 1 MG Oral Capsule (Prograf) [...] hemoglobin A1c goal of less than 7.0% ([facility]) Take 1 Tablet by mouth in the [...] as of this encounter (statuses as of 05/26/2024) Active Problems Problem Noted Date Diagnosed Date [...] as of this encounter (statuses as of 05/26/2024) Resolved Problems Problem Noted Date Diagnosed Date [...] as of this encounter (statuses as of 05/26/2024) Immunizations Name Administration Dates Next Due COVID-19 [...] 03/03/2024 Does the household have a re [facility] source of income? (Household - for ages [...] as of this encounter Progress Notes * Charisse Giles CRNP - 05/26/2024 8:59 AM EST Images from the original note were not included. History of Present Illness Bernard Jones is a 38 year old male that presents for Return Visit (Per OV 12/31-- Had surgery on his foot 05/20/2024/Nicolás Brennan foot and ankle-- has appt today to malini. Dr. Angel Last ) HPI Here via video visit - he no showed his in person visit with his PCP yesterday. Had a foot surgery 6 days ago for foot ulceration as above - says there was some concern for osteomyelitis and has his first post op follow up with surgeon later today to discuss this. There will likely need to be second surgery at some point in next few weeks. Believes he has thrush now from antibiotics used for surgery - lips and gums feel "raw". No fevers,chills. Current Outpatient Medications Medication Sig Dispense Refill Clotrimazole 10 MG Mouth/Throat Jordan (Mycelex Jordan) Take 1 Lozenge by mouth 5 times a day for 14 days. Allow tablet to slowly dissolve in your mouth 70 Jordan 0 clonazePAM 1 MG Oral Tablet (KlonoPIN) Take 1 Tablet by mouth every 8 hours as needed for Anxiety. 90 Tablet 0 Rosuvastatin Calcium 10 MG Oral Tablet (Crestor) Take 1 Tablet by mouth in the morning. In the morning.. 90 Tablet 0 cloNIDine HCl 0.1 MG Oral Tablet (Catapres) Take 1 Tablet by mouth in the morning and 1 Tablet in the evening. (Patient taking differently: Take 1 Tablet by mouth in the morning and 1 Tablet in the evening. Pt takes 2 in the AM) 180 Tablet 3 Carvedilol 6.25 MG Oral Tablet (Coreg) Take 1 Tablet by mouth in the morning and 1 Tablet before bedtime. 180 Tablet 3 Furosemide 20 MG Oral Tablet (Lasix) Take 1 Tablet by mouth daily as needed (fluid). take 1 tab by mouth daily as needed 30 Tablet 1 Tamsulosin HCl 0.4 MG Oral Capsule (Flomax) Take 1 Capsule by mouth in the morning. Methadone HCl 10 MG/5ML Oral Solution Take 50 mL by mouth daily. Aspirin 325 MG Oral Tablet Take 1 Tablet by mouth in the morning. Mycophenolate Mofetil 250 MG Oral Capsule (Cellcept) Take 3 Capsules by mouth in the morning and 3 Capsules before bedtime. Tacrolimus 1 MG Oral Capsule (Prograf) 2 times a day. 2 mg in AM and 1 mg at bedtime Pregabalin 75 MG Oral Capsule (Lyrica) Take 1 Capsule by mouth in the morning and 1 Capsule at noonand 1 Capsule in the evening. 90 Capsule 1 predniSONE 20 MG Oral Tablet (Deltasone) Take 4 tabs daily for 2 days, 3 tabs daily for 2 days, 2 tabs daily for 2 days, 1 tab daily for 2 days (Patient not taking: Reported on 05/26/2024) 20 Tablet 0 Linezolid 600 MG Oral Tablet (Zyvox) (Patient not taking: Reported on 05/26/2024) Cefadroxil 1 GM Oral Tablet Take 1 g by mouth in the morning and 1 g before bedtime. (Patient not taking: Reported on 05/26/2024) 20 Tablet 0 Zinc 25 MG Oral Tablet Take 3 Tablets by mouth in the morning and 3 Tablets before bedtime. (Patient not taking: Reported on 05/26/2024) Zinc 220 (50 Zn) MG Oral Capsule Take 220 mg by mouth every morning. (Patient not taking: Reported on 05/26/2024) Clotrimazole-Betamethasone 1-0.05 % External Cream (Lotrisone) (Patient not taking: Reported on 05/26/2024) Silvadene 1 % External Cream Apply topically to affected area daily. (Patient not taking: Reported on 05/26/2024) 50 g 2 Santyl 250 UNIT/GM External Ointment (Patient not taking: Reported on 05/26/2024) Triamcinolone Acetonide 0.1 % External Cream (Aristocort) Apply topically to affected area 2 times a day. On left forearm and Rt thigh till better (Patient not taking: Reported on 05/26/2024) 45 g 1 Current Facility-Administered Medications Medication Dose Route Frequency Provider Last Rate Last Admin bevaCIZumab (Avastin) inj 1.25 mg 1.25 mg Intravitreal PRN Burton Schroeder T, DO 1.25 mg at 12/27/23 102 ROPivacaine (Naropin) inj 1.5 mg 1.5 mg Perineural PRN Burton Schroeder T, DO 1.5 mg at 020 Physical Exam There were no vitals filed for this visit. Physical Exam Constitutional: General: He is not in acute distress. Neurological: Mental Status: He is alert and oriented to person, place, and time. Psychiatric: Behavior: Behavior normal. Thought Content: Thought content normal. Assessment and Plan Thrush Follow up if no improvement - Clotrimazole 10 MG Mouth/Throat Jordan (Mycelex Jordan); Take 1 Lozenge by mouth 5 times a day for 14 days. 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 | Check-out note: Please schedule next avail routine follow up pcp Time: I spent a total of 20-29 minutes (exact time 20 mins) on the date of service in preparation, delivery, and documentation of the care provided to Bernard Jones excluding any time spent in the performance of separately billed services. Telemedicine: Patient location: HOME. I was in a hospital or clinic location. After connecting through appEatITo,patient was verified with two unique identifiers. Patient (or authorized legal telecommunications sales representative) was then informed that this was a Telemedicine visit and being conducted confidentially over secure lines. Methods to assure confidentiality were taken. Patient acknowledged consent and understanding of pr ivacy and security of the Telemedicine visit. The patient agreed to participate. documented in this encounter Nursing Notes * Francia Vargas LPN - 05/26/2024 8:39 AM EST The patient has been properly identified by confirmation of name and date of . Chief Complaint Patient presents with Return Visit Per OV 12/31-- Had surgery on his foot 05/20/2024 Nicolás Brennan foot and ankle-- has appt today to malini. Dr. Angel Last Pt had prophylactic abx-- gave him thrush. Pt still having sores in his mouth, red lips. 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 Question Answer Comments Discussion of Advance Directives occurred with: Not Discussed Care Teams Licensed Prosthetist/Orthotist Relationship Specialty Start Date End Date Ryan Leyva MD [address] [place] [address] PCP - General Family Medicine 07/17/22 documented as of this encounter
[2024-08-21 06:51] LABS: Hematocrit (blood only) 43.2 % (42.0-52.0); Hemoglobin 12.8 g/dl (14.0-18.0); Mean Corpuscular Hemoglobin 22.4 pg (25.0-34.0); Mean Corpuscular Hgb Conc 29.6 g/dL (32.0-36.0); Mean Corpuscular Volume 75.5 fL (80.0-100.0); Mean Platelet Volume 8.3 fL (9.4-12.4); Platelet Count 80 K/uL (130-400); RDW Coefficient of Variation 20.2 % (11.5-14.5); RDW Standard Deviation 51.8 fL (36.4-46.3); Red Blood Count 5.72 M/uL (4.70-6.10)
[2024-08-21 06:55] LABS: Anisocytosis Present
[2024-08-21 06:56] LABS: Ovalocytes 1+; Stomatocytes 1+
[2024-08-21 07:11] LABS: Albumin Globulin Ratio 1.1 (0.9-2); Albumin Level 3.8 gm/dl (3.4-5.0); BUN Creatinine Ratio 17.6 (10-20); Bilirubin,Total 0.6 mg/dl (0.2-1.0); Calcium 9.3 mg/dl (8.6-10.3); Chol HDL Ratio 8.2 (0-5); Creatinine Clr Calc Pharmacy 130.5 ml/min; Globulin 3.5 gm/dl (2.5-4.0); Magnesium 1.6 mg/dl (1.7-2.4); Potassium 4.1 mmol/L (3.5-5.1); Total Protein 7.3 gm/dl (6.0-8.3)
[2024-08-21 07:34] LABS: Anisocytosis Present; Hypochromasia Present; Platelet Estimate Decreased (Normal); Polychromasia 1+; Tear Drop Cells 1+
[2024-08-21 07:36] LABS: Basophils # (auto) 0.01 K/uL (0.00-0.20); Basophils % (auto) 0.4 %; Eosinophils # (auto) 0.07 K/uL (0.00-0.50); Eosinophils % (auto) 2.9 %; Immature Granulocytes # (auto) 0.02 K/uL (0.01-0.20); Immature Granulocytes % (auto) 0.8 %; Lymphocytes # (auto) 1.61 K/uL (1.20-3.40); Lymphocytes % (auto) 67.1 %; Monocytes # (auto) 0.31 K/uL (0.11-0.59); Monocytes % (auto) 12.9 %; Neutrophils # (auto) 0.38 K/uL (1.40-6.50); Neutrophils % (auto) 15.9 %
--- NOTE | 2024-08-21 10:20 | Nuclear Medicine Report ---
NUCLEAR MEDICINE PERFUSION STUDY CLINICAL HISTORY: elevated dimer. PE? COMPARISON STUDY: Chest radiograph September 18, 2023. TECHNIQUE: Nuclear medicine perfusion study was performed following intravenous injection of 5.2 mCi of technetium 99m MAA. Injection was performed at 10:02 AM on August 21, 2024 and imaging of the chest was performed in multiple projections. No ventilation imaging was performed given ventilation precau tions. FINDINGS: Homogeneous perfusion to both lungs is noted. No perfusion defects are identified. There ar e no areas of abnormal radiotracer uptake. This study is low probability for pulmonary embolus. IMPRESSION: Low probability for pulmonary embolus. ACT 112: Negative or not required by law. Electronically signed by: Yves Kilgore M.D. 08/21/2024 10:19 AM
[2024-08-21] MEDS: amLODIPine BESYLATE 5 MG TAB PO SCH (10:49)
[2024-08-21] MEDS: TACROLIMUS 1 MG CAP PO SCH (10:49)
[2024-08-21] MEDS: ROSUVASTATIN CALCIUM 10 MG TAB PO SCH (10:49)
[2024-08-21] MEDS: PATIENT'S OWN CONTROLLED MED 1 PO SCH (10:49)
[2024-08-21] MEDS: METHADONE ORAL SOLN 2 MG/ML PO SCH (10:49)
[2024-08-21] MEDS: ZINC SULFATE 220 MG CAPSULE PO SCH (10:50)
[2024-08-21] MEDS: TAMSULOSIN HCL 0.4 MG CAP PO SCH (10:50)
--- NOTE | 2024-08-21 14:06 | Infectious Disease Consult ---
Date of Service August 21, 2024 Telehealth Information I performed this visit using a real-time telehealth connection between my location and the patients location ([facility]). After connecting through interactive tele-video, patient was identified by name and date of and/or wristband check.Patient (or authorized healthcare education courses sales representative) was informed that this was a telemedicine visit and it was being conducted confidentially over secure lines. My office door was closed and no on e else was present in the room with me.Patient (or authorized healthcare education courses sales representative) provided consent to proceed with the visit, expressed an understanding of privacy and security of the telemedicine visit, and gave permission to have a hospital education courses sales representative in the room in order to assist with the visit and to conduct portions of the visit, as needed. I informed the patient (or authorized healthcare education courses sales representative) that I reviewed their record and presented the opportunity for them to ask any questions regarding the visit today. The patient agreed to participate. Assessment & Plan (1) Neutropenia: (2) Neutropenia: (3) Osteomyelitis of left foot: Plan 38-year-old male with known left foot osteomyelitis on Zosyn, neutropenia is likely secondary to the antibiotics Zosyn as it is well known to have this side effect, in conjunction with other beta lactams. it does seem like there is difficulty with the patient following up as he did not initiate antibiotics after debridement for 2 months, per primary team wound is healing well, patient is asymptomatic without fevers, significant pain. He still has the PICC line in place however at this point in his reasonable to transitioned to oral therapy. He does not have any significant fevers, this is not febrile neutropenia. - Ciprofloxacin p.o. 750 q.12 hours for a total of 3 weeks from today - metronidazole 500 mg Q 8 hours for a total of 3 weeks from today Appreciate consultation, please do not hesitate to reach out for any further questions or concerns. Adrian Hernandez MD PGY5 Infectious Disease History of Present Illness History of Present Illness 38-year-old male with an extensive past medical history of pancreas/ kidney transplant in 2020 secondary to ESRD 2 diabetes mellitus type 1. 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 Patient has known left foot osteomyelitis with culture growth of Proteus, Pseudomonas, Clostridium, Finegoldia however after debridement patient seemingly did not have appropriate antibiotic therapy until 2 months later, he was initiated on Zosyn approximately 07/25, he returns at this time as routine blood work revealed him being neutropenic. He denies any fevers, chills. Overall feels well. His largely completed 3 weeks of appropriate antibiotic therapy. Renal function with a normal limits. Allergies Allergy/AdvReac Type Severity Reaction Status Date / Time sulfamethoxazole Allergy Intermediate Rash Verified 07/23/24 08:59 [From Bactrim] trimethoprim [From Bactrim] Allergy Intermediate Rash Verified 07/23/24 08:59 Home Medications Medication Instructions Recorded Confirmed Type clonazepam 0.5 mg tablet 1 mg PO TID Anxiety 11/03/18 08/20/24 History mycophenolate mofetil 250 mg 750 mg PO BID 10/20/22 08/20/24 History capsule rosuvastatin 10 mg tablet 10 mg PO QAM 10/20/22 08/20/24 History carvedilol 6.25 mg tablet (Coreg) 6.25 mg PO BID #20 tabs 12/08/22 08/20/24 Rx aspirin 325 mg tablet 325 mg PO QAM 12/19/22 08/20/24 History tacrolimus 1 mg capsule, 1 mg PO QAM 06/05/23 08/20/24 History immediate-release zinc sulfate 50 mg zinc (220 mg) 220 mg (4.4 x 50 mg zinc (220 mg)) 06/12/23 08/20/24 Rx capsule (Orazinc) PO QAM #30 caps furosemide 20 mg tablet 20 mg PO QAM PRN NEEDED PER 09/18/23 08/20/24 History [facility] methadone 10 mg/5 mL oral solution 105 mg PO QAM 09/18/23 08/20/24 History pregabalin 75 mg capsule 75 mg PO TID 09/18/23 08/20/24 History tacrolimus 0.5 mg capsule, 0.5 mg PO QPM 01/27/24 08/20/24 History immediate-release tamsulosin 0.4 mg capsule 0.4 mg PO QAM #0 caps 01/29/24 08/20/24 Rx amlodipine 5 mg tablet 5 mg PO QAM 08/20/24 08/20/24 History piperacillin-tazobactam 40.5 gram 40.5 g IV UD 08/20/24 08/20/24 History intravenous solution Patient History Medical History Wound of lower extremity Venous stasis ulcers hx DKA (diabetic ketoacidosis) (~2019) hx, 2019 Diabetic retinopathy of both eyes Diabetic peripheral neuropathy Chronic venous insufficiency Cellulitis hx in right foot/leg and left foot/leg per pt Acute hypoxemic respiratory failure (~2019) hx, 2019, w/pneumonia; no current breathing issues per pt. Hx of deep venous thrombosis (~09/2023) 09/18/23, previously on eliquis History of anemia no recent issues Anxiety Gastroparesis hx, no recent issues Hx of hepatitis C sometime prior 2020, had tx and "cured" PAD (peripheral artery disease) History of pneumonia (~2019) 2019, no recent issues Hx of sepsis (~09/2023) 09/2023, hospitalized [facility]; no current issues AV (arteriovenous fistula) left fistula Limb alert care status left arm Chronic ulcer of right foot with fat layer exposed Immunosuppression due to drug therapy End stage renal disease (~2020) hx, kidney transplant 2020; previously on dialysis for 4 years prior to transplant per pt Charcot arthropathy Charcot's joint of left foot Leukocytosis hx Critical illness polyneuropathy Pulmonary edema hx Substance abuse pt denies History of seizure (~2018) seizure-like activity 02/14/2019 in setting of severe hyperglycemia (patient states he missed dialysis/insulin dose), DKA, confusion- lifeflighted to [facility]/intubated/placed on ventilator. DKA managed with insulin drip on admission. EEG with no seizure activity noted. Neurology consulted and initially started patient on prophylactic Keppra but suspected seizure was complication of hyperglycemia and recommended weaning off anticonvulsants/advised no further neurology workup needed. Per patient, medication/dialysis compliance since discharge with glucoses in the range on 100's-200's on self-checks. most recent 2019 or 2020 Peritonitis (~2018) hx, 2019 Withdrawal from opioids pt denies Nephrotic syndrome hx Diabetes mellitus type I no meds currently Hypertension Surgical History S/P dialysis catheter insertion currently removed History of esophagogastroduodenoscopy (EGD) Hx of foot surgery 09/2023, transferred from [place] to [place], I&D left foot S/P arteriovenous (AV) fistula creation left arm Pancreas transplant status 2020, [facility] Renal transplant recipient 04/2021, [facility]; removed appendix at same time Hx of tonsillectomy Hx of tooth extraction Hx of vitrectomy B/L; right vitrectomy: 05/26/18: LMA#5 at [facility] Family History Grandfather (Maternal) Diabetes Grandfather (Paternal) Diabetes Grandmother (Paternal) Diabetes Grandmother (Maternal) Diabetes Aunt Diabetes Uncle Diabetes Father Hypertension Brother Hypertension Social History Smoking Status: Former smoker Tobacco Type: Cigarettes Second Hand Exposure: No; Do You Dip or Chew Tobacco: No; Tobacco Cessation Education Requested by Patient: No Hx Alcohol Use: No Hx Substance Use: No Preferred Language: Vincentian Communication Ability: Effective Communication Ability Comment: sedated, arouses easily Visual Impairment: Severely Limited Hearing Ability: Normal Poultry Farm Supervisor Required: No Beliefs That Will Affect Care: None Current Living Situation: Alone Current Living Situation Comment: Pt lives alone, has help with things around the house current occupational status: employed and unemployed Other Information That Helps Us Care for You: No Feels Safe at Home: Yes Safety Concerns: Feels Safe At This Time Childhood Exposure to Second-Hand Smoke: No Diet: regular Diet Comment: diabetic caffeine: Yes during the past year weight has: other Dental Care, Regularly: Yes Physical Activity Frequency: Daily Seatbelt Use: always Sunscreen Use: Yes Assistive Devices: Crutches and Wheelchair Assistive Devices Comment: b/l diabetic shoes/boots Review of Systems CONSTITUTIONAL: Denies weight loss, fever and chills. HEENT: Denies changes in vision and hearing. RESPIRATORY: Denies SOB and cough. CV: Denies palpitations and CP. GI: Denies abdominal pain, nausea, vomiting and diarrhea. : Denies dysuria and urinary frequency. MSK: Denies myalgia and joint pain. SKIN: Denies rash and pruritus. NEUROLOGICAL: Denies headache and syncope PSYCHIATRIC: Denies recent changes in mood. Denies anxiety and depression. Physical Exam GENERAL: Appears as stated age. No acute distress. SKIN: Bandages overlying, not taken down, examined deferred due to telehealth. NEUROLOGIC: No focal neurological deficits. Cranial nerves grossly intact. Results & Data Vital Signs (Past 12 Hours) Vital Signs Temp Pulse Pulse Pulse Resp BP Pulse Ox 08/21/24 12:31 178/96 H 08/21/24 11:30 36.4 C L 72 14 180/101 H 98 08/21/24 08:15 08/21/24 08:00 68 08/21/24 08:00 36.5 C 70 12 162/96 H 95 08/21/24 03:51 36.5 C 70 16 138/85 94 O2 Del Method 08/21/24 12:31 08/21/24 11:30 Room Air 08/21/24 08:15 Room Air 08/21/24 08:00 08/21/24 08:00 Room Air 08/21/24 03:51 Room Air Laboratory Results Abnormal Lab Results 08/20/24 08/20/24 08/20/24 15:30 17:51 23:54 WBC 2.31 L RBC 5.39 Hgb 12.2 L Hct 40.3 L MCV 74.8 L MCH 22.6 L MCHC 30.3 L RDW Std Deviation 50.9 H RDW Coeff of Rebecca 19.5 H Plt Count 85 L MPV 9.0 L Immature Gran % (Auto) 0.0 Neut % (Auto) 20.8 Lymph % (Auto) 66.2 [place] % (Auto) 10.4 Eos % (Auto) 2.2 Baso % (Auto) 0.4 Neut # (Auto) 0.48 L* Lymph # (Auto) 1.53 [place] # (Auto) 0.24 Eos # (Auto) 0.05 Baso # (Auto) 0.01 Immature Gran # (Auto) 0.00 L Platelet Estimate Polychromasia Hypochromasia Present Anisocytosis Present Tear Drop Cells Ovalocytes 1+ Stomatocytes 1+ Peripher Smr Path Cons ESR 37 H PT 12.1 H INR 1.1 APTT 28 PTT Ratio 1.0 Fibrinogen 312 D-Dimer 2330 H* Sodium 137 Potassium 4.2 Chloride 106 Carbon Dioxide 26 Anion Gap 5 BUN 19 Creatinine 0.91 Est Cr Clr Drug Dosing 126.1 eGFR 109.27 BUN/Creatinine Ratio 20.9 H Glucose 111 H Calcium 9.4 Magnesium Total Bilirubin 0.5 AST 35 ALT 11 Alkaline Phosphatase 98 Lactate Dehydrogenase 369 H C-Reactive Protein 3.49 H Total Protein 7.3 Albumin 3.9 Globulin 3.4 Albumin/Globulin Ratio 1.1 Triglycerides Cholesterol LDL Cholesterol, Calc VLDL Cholesterol, Calc HDL Cholesterol Cholesterol/HDL Ratio Procalcitonin 0.43 Adenovirus (PCR) B. pertussis DNA (PCR) B.parapertussis DNA PCR C. pneumoniae DNA (PCR) Coronavirus OC43 (PCR) Coronavirus HKU1 (PCR) Coronavirus 229E (PCR) SARS-CoV-2 (PCR) Coronavirus NL63 (PCR) HIV 1&2 Ab/P24 Ag 4thGn Negative Human Metapneumovir PCR Influenza Type A (PCR) Influenza Type B (PCR) M. pneumoniae (PCR) Parainfluenza 1 (PCR) Parainfluenza 2 (PCR) Parainfluenza 3 (PCR) Parainfluenza 4 (PCR) RSV (PCR) Entero/Rhino (PCR) 08/20/24 08/21/24 08/21/24 Unknown 06:19 10:55 WBC 2.40 L RBC 5.72 Hgb 12.8 L Hct 43.2 MCV 75.5 L MCH 22.4 L MCHC 29.6 L RDW Std Deviation 51.8 H RDW Coeff of Rebecca 20.2 H Plt Count 80 L MPV 8.3 L Immature Gran % (Auto) 0.8 Neut % (Auto) 15.9 Lymph % (Auto) 67.1 [place] % (Auto) 12.9 Eos % (Auto) 2.9 Baso % (Auto) 0.4 Neut # (Auto) 0.38 L* Lymph # (Auto) 1.61 [place] # (Auto) 0.31 Eos # (Auto) 0.07 Baso # (Auto) 0.01 Immature Gran # (Auto) 0.02 Platelet Estimate Decreased L Polychromasia 1+ Hypochromasia Present Anisocytosis Present Tear Drop Cells 1+ Ovalocytes Stomatocytes Peripher Smr Path Cons ESR PT INR APTT PTT Ratio Fibrinogen D-Dimer Sodium 140 Potassium 4.1 Chloride 107 Carbon Dioxide 29 Anion Gap 4 BUN 15 Creatinine 0.85 Est Cr Clr Drug Dosing 130.5 eGFR 112.65 BUN/Creatinine Ratio 17.6 Glucose 94 Calcium 9.3 Magnesium 1.6 L Total Bilirubin 0.6 AST 30 ALT 12 Alkaline Phosphatase 99 Lactate Dehydrogenase C-Reactive Protein Total Protein 7.3 Albumin 3.8 Globulin 3.5 Albumin/Globulin Ratio 1.1 Triglycerides 163 H Cholesterol 106 LDL Cholesterol, Calc 60 VLDL Cholesterol, Calc 33 H HDL Cholesterol 13 Cholesterol/HDL Ratio 8.2 H Procalcitonin 0.24 Adenovirus (PCR) Not Detected B. pertussis DNA (PCR) Not Detected B.parapertussis DNA PCR Not Detected C. pneumoniae DNA (PCR) Not Detected Coronavirus OC43 (PCR) Not Detected Coronavirus HKU1 (PCR) Not Detected Coronavirus 229E (PCR) Not Detected SARS-CoV-2 (PCR) Not Detected Coronavirus NL63 (PCR) Not Detected HIV 1&2 Ab/P24 Ag 4thGn Human Metapneumovir PCR Not Detected Influenza Type A (PCR) Not Detected Influenza Type B (PCR) Not Detected M. pneumoniae (PCR) Not Detected Parainfluenza 1 (PCR) Not Detected Parainfluenza 2 (PCR) Not Detected Parainfluenza 3 (PCR) Not Detected Parainfluenza 4 (PCR) Not Detected RSV (PCR) Not Detected Entero/Rhino (PCR) Not Detected Diagnostic Findings n/a (2) Osteomyelitis of left foot Osteomyelitis type: unspecified type Qualified Code(s): M86.9 - Osteomyelitis, unspecified
--- NOTE | 2024-08-21 15:31 | Hospitalist Progress Note ---
Date of Service August 21, 2024 Assessment & Plan (1) Neutropenia: (2) Charcot arthropathy: (3) Ulcer of right foot: (4) Thrombocytopenia: (5) Osteomyelitis of left foot: Plan: Had non-healing ulcer of left foot. Underwent bone resection with bone biopsy performed by Dr. Martino on 05/20/25. Bone biopsy revealed acute osteomyelitis. Bone culture grew few Proteus mirabilis, few Pseudomonas aeruginosa, moderate Clostridium perfringens and moderate Finegoldia magna. Follows with [facility] here in [place]. Primary infectious disease physician is Dr. Caridad Villa. Had right upper extremity PICC line placed on 07/23/24 here at [facility]. Currently on IV Zosyn 3.375gm Q6H for a total of 6 weeks. First dose of IV Zosyn was on 07/23/24, therefore EOT should be on or around 09/03/24. He reports being told to stop taking the IV Zosyn yesterday after his routine weekly outpatient lab work revealed a new-onset neutropenia and thrombocytopenia. Neutropenia, thrombocytopenia likely secondary to Zosyn. I discussed his case with his soybean grower Dr. Grimm as well as Dr. Villa from infectious disease. Both mentioned that patient has not followed up and has been noncompliant. As per Dr. Villa, recommendation was made to stop IV antibiotic and have him follow-up as outpatient. Also recommended removing PICC line. MRI of the foot did not show any acute osteomyelitis. Discussed with [facility] infectious disease; given patient's history of noncompliance and given that the wound has healed well- plan to change to p.o. ciprofloxacin and Flagyl. Plan to remove PICC line. (6) Immunosuppressed status: (7) History of simultaneous kidney and pancreas transplant: Plan: Underwent simultaneous pancreas-kidney transplant in 2020 due to ESRD in the setting of underlying type 1 DM at [facility]. He is on CellCept 750mg BID and Prograf 1mg QAM/0.5mg QPM. Prograf goal level of 6-9ng/mL. Now following with Dr. Rosie Merrill of [facility] in [place] (recently saw her on 08/13/24). (8) History of substance abuse: Plan: Former narcotic abuse. On chronic methadone therapy. Follows with outpatient methadone clinic for this. (9) Hypertension: Plan: Continue amlodipine and carvedilol with hold parameters. Hold home PRN Lasix for now. Routine BP monitoring on board. (10) Hyperlipidemia: Plan: Continue rosuvastatin. Hold home ASA ISO thrombocytopenia as per above. DVT Prophylaxis: SCDs/TEDs for now ISO thrombocytopenia. Code Status: FULL CODE PCP: Ryan Leyva MD Disposition: possible DC in a.m. Time spent evaluating patient, direct bedside care, chart review, placing orde rs, interpretation of diagnostic studies, discussion with consultants, patient, and family members, as well as other required patient management activities is 75 minutes Please note the above document was generated using voice recognition software. It may contain grammatical, syntax or spelling errors. Any formal questions or concerns about the content, text or information contained within the body of this dictation should be directly addressed to the provider for clarification Admission and Anticipated Discharge Date Admission Date: August 20, 2024 Subjective Patient seen and examined at bedside. He appears comfortable; not in distress. He denies any fever, chills, chest pain, abdominal pain or palpitation No significant events overnight Review of Systems Review of Systems: All systems reviewed & are unremarkable except as noted in Subjective Physical Exam Physical Exam: Constitutional: WD/WN, vitals as above, NAD, sitting up in bed, pleasant, conversing easily Respiratory: normal respiratory effort, lungs clear to auscultation, no wheeze, rales, rhonchi. Normal insp/exp effort, no accessory muscle use Cardiovascular: RRR, no murmur, no edema Vessels: no JVD or carotid bruit Chest: normal inspection of chest Abdomen: normal bowel sounds, soft, nontender, no hepatosplenomegaly Musculoskeletal: Healing ulcer in dorsal aspect of bilateral lower extremity. Neurologic: PERRL, EOMI, accommodation nl, no face palsy, no dysarthria CN's II- XI intact bilaterally and moves all extremities Psychiatric: A+Ox3, euthymic affect Results & Data Results & Data Vital Signs (Past 12 Hours) Vital Signs Temp Pulse Pulse Pulse Resp BP Pulse Ox 08/21/24 15:13 36.5 C 72 18 178/93 H 95 08/21/24 12:31 178/96 H 08/21/24 11:30 36.4 C L 72 14 180/101 H 98 08/21/24 08:15 08/21/24 08:00 68 08/21/24 08:00 36.5 C 70 12 162/96 H 95 08/21/24 03:51 36.5 C 70 16 138/85 94 O2 Del Method 08/21/24 15:13 Room Air 08/21/24 12:31 08/21/24 11:30 Room Air 08/21/24 08:15 Room Air 08/21/24 08:00 08/21/24 08:00 Room Air 08/21/24 03:51 Room Air (1) Neutropenia Neutropenia type: unspecified Qualified Code(s): D70.9 - Neutropenia, unspecified (3) Ulcer of right foot Non-pressure ulcer stage: unspecified non-pressure ulcer stage Qualified Code(s): L97.519 - Non-pressure chronic ulcer of other part of right foot with unspecified severity (5) Osteomyelitis of left foot Osteomyelitis type: unspecified type Qualified Code(s): M86.9 - Osteomyelitis, unspecified (9) Hypertension Hypertension type: essential hypertension Qualified Code(s): I10 - Essential (primary) hypertension (10) Hyperlipidemia Hyperlipidemia type: unspecified Qualified Code(s): E78.5 - Hyperlipidemia, unspecified
[2024-08-21] MEDS: ACETAMINOPHEN 325 MG TAB PO PRN (16:55)
[2024-08-21] MEDS: CIPROFLOXACIN 250 MG TAB PO SCH (16:55)
[2024-08-21] MEDS: metroNIDAZOLE 500 MG TAB PO SCH (16:55)
--- NOTE | 2024-08-21 19:16 | Electrocardiogram Report ---
Test Reason : Blood Pressure : */* mmHG Vent. Rate : 72 BPM Atrial Rate : 72 BPM P-R Int : 142 ms QRS Dur : 96 ms QT Int : 430 ms P-R-T Axes : 6 6 33 degrees QTcB Int : 470 ms Normal sinus rhythm Normal ECG When compared with ECG of 18-Sep-2023 15:11, No significant change was found Confirmed by Jame Beavers ([id number]) on 08/21/2024 7:16:25 PM Referred By: Ryan Leyva Confirmed By: Jame Beavers
--- NOTE | 2024-08-21 21:04 | Podiatry Consultation ---
Date of Consultation August 21, 2024 Assessment & Plan (1) Neutropenia: Neutropenia type: other drug-induced Qualified Code(s): D70.2 - Other drug-induced agranulocytosis (2) Ulcer of right foot: Non-pressure ulcer stage: unspecified non-pressure ulcer stage Qualified Code(s): L97.519 - Non-pressure chronic ulcer of other part of right foot with unspecified severity (3) Osteomyelitis of left foot: Osteomyelitis type: unspecified type Qualified Code(s): M86.9 - Osteomyelitis, unspecified (4) Wound of lower extremity: Encounter type: initial encounter Laterality: right Qualified Code(s): S81.801A - Unspecified open wound, right lower leg, initial encounter (5) Charcot arthropathy of midfoot: Plan Patient examined and evaluated. Wounds cleaned and redressed with optifoam and Aquacel. He is doing quite well from a foot and ankle standpoint, though the advanced imaging obtained so far has been for his right foot. His left had the more recent history of acute concerns, including osteomyelitis. To help visualize any changes, a new left foot MRI was ordered. This will likely be inconclusive, given his known Charcot and known OM, but could show progression or improvement of the infectious concerns. Otherwise, his feet are doing well and have no concern for keeping him hospitalized. He states he already discussed changing his antibiotic regimen with ID consult on this hospitalization, so ideally he can finish the 8 week course without further side effects. Can d/c home with continued home wound care and try to follow-up with us again in the next week or two. Thanks for the consult. History of Present Illness Reason for Consultation: B/L Charcot collapse, Left foot osteomyelitis, Now neutropenic Attending Physician: Bryant Almendarez MD History of Present Illness Patient seen at bedside at lunch, known to our service from multiple hospitalizations and outpatient follow-up/surgical intervention. He has been lost to care for a few months, but has remained in care with ID and wound care, who have been pleased with his improvement. On our end, he has had difficulty getting rides to our office and missed his last 3 appointments. Now, after routine labs for his antibiotics, he was noted to have developed critical neutropenia and was sent to the ED for admission. He states he feels fine, is happy with his feet currently, and denies any outward concerns. Allergies Allergy/AdvReac Type Severity Reaction Status Date / Time sulfamethoxazole Allergy Intermediate Rash Verified 07/23/24 08:59 [From Bactrim] trimethoprim [From Bactrim] Allergy Intermediate Rash Verified 07/23/24 08:59 Home Medications Medication Instructions Recorded Confirmed Type clonazepam 0.5 mg tablet 1 mg PO TID Anxiety 11/03/18 08/20/24 History mycophenolate mofetil 250 mg 750 mg PO BID 10/20/22 08/20/24 History capsule rosuvastatin 10 mg tablet 10 mg PO QAM 10/20/22 08/20/24 History carvedilol 6.25 mg tablet (Coreg) 6.25 mg PO BID #20 tabs 12/08/22 08/20/24 Rx aspirin 325 mg tablet 325 mg PO QAM 12/19/22 08/20/24 History tacrolimus 1 mg capsule, 1 mg PO QAM 06/05/23 08/20/24 History immediate-release zinc sulfate 50 mg zinc (220 mg) 220 mg (4.4 x 50 mg zinc (220 mg)) 06/12/23 08/20/24 Rx capsule (Orazinc) PO QAM #30 caps furosemide 20 mg tablet 20 mg PO QAM PRN NEEDED PER 09/18/23 08/20/24 History [facility] methadone 10 mg/5 mL oral solution 105 mg PO QAM 09/18/23 08/20/24 History pregabalin 75 mg capsule 75 mg PO TID 09/18/23 08/20/24 History tacrolimus 0.5 mg capsule, 0.5 mg PO QPM 01/27/24 08/20/24 History immediate-release tamsulosin 0.4 mg capsule 0.4 mg PO QAM #0 caps 01/29/24 08/20/24 Rx amlodipine 5 mg tablet 5 mg PO QAM 08/20/24 08/20/24 History piperacillin-tazobactam 40.5 gram 40.5 g IV UD 08/20/24 08/20/24 History intravenous solution Patient History Medical History Wound of lower extremity Venous stasis ulcers hx DKA (diabetic ketoacidosis) (~2019) hx, 2019 Diabetic retinopathy of both eyes Diabetic peripheral neuropathy Chronic venous insufficiency Cellulitis hx in right foot/leg and left foot/leg per pt Acute hypoxemic respiratory failure (~2019) hx, 2020, w/pneumonia; no current breathing issues per pt. Hx of deep venous thrombosis (~09/2023) 09/18/23, previously on eliquis History of anemia no recent issues Anxiety Gastroparesis hx, no recent issues Hx of hepatitis C sometime prior 2020, had tx and "cured" PAD (peripheral artery disease) History of pneumonia (~2019) 2019, no recent issues Hx of sepsis (~09/2023) 09/2023, hospitalized [facility]; no current issues AV (arteriovenous fistula) left fistula Limb alert care status left arm Chronic ulcer of right foot with fat layer exposed Immunosuppression due to drug therapy End stage renal disease (~2020) hx, kidney transplant 2020; previously on dialysis for 4 years prior to transplant per pt Charcot arthropathy Charcot's joint of left foot Leukocytosis hx Critical illness polyneuropathy Pulmonary edema hx Substance abuse pt denies History of seizure (~2018) seizure-like activity 02/14/2019 in setting of severe hyperglycemia (patient states he missed dialysis/insulin dose), DKA, confusion- lifeflighted to [place]/intubated/placed on ventilator. DKA managed with insulin drip on admission. EEG with no seizure activity noted. Neurology consulted and initially started patient on prophylactic Keppra but suspected seizure was complication of hyperglycemia and recommended weaning off anticonvulsants/advised no further neurology workup needed. Per patient, medication/dialysis compliance since discharge with glucoses in the range on 100's-200's on self-checks. most recent 2019 or 2020 Peritonitis (~2018) hx, 2019 Withdrawal from opioids pt denies Nephrotic syndrome hx Diabetes mellitus type I no meds currently Hypertension Surgical History S/P dialysis catheter insertion currently removed History of esophagogastroduodenoscopy (EGD) Hx of foot surgery 09/2023, transferred from [place] to [place], I&D left foot S/P arteriovenous (AV) fistula creation left arm Pancreas transplant status 2020, [facility], [place], operated by [facility] Renal transplant recipient 04/2021, [facility], [place], operated by [facility]; removed appendix at same time Hx of tonsillectomy Hx of tooth extraction Hx of vitrectomy B/L; right vitrectomy: 05/26/18: LMA#5 at [facility] Family History Grandfather (Maternal) Diabetes Grandfather (Paternal) Diabetes Grandmother (Paternal) Diabetes Grandmother (Maternal) Diabetes Aunt Diabetes Uncle Diabetes Father Hypertension Brother Hypertension Social History Smoking Status: Former smoker Tobacco Type: Cigarettes Second Hand Exposure: No; Do You Dip or Chew Tobacco: No; Tobacco Cessation Education Requested by Patient: No Hx Alcohol Use: No Hx Substance Use: No Preferred Language: [place] Communication Ability: Effective Communication Ability Comment: sedated, arouses easily Visual Impairment: Severely Limited Hearing Ability: Normal Podiatric Foot And Ankle Specialist Required: No Beliefs That Will Affect Care: None Current Living Situation: Alone Current Living Situation Comment: Pt lives alone, has help with things around the house current occupational status: employed and unemployed Other Information That Helps Us Care for You: No Feels Safe at Home: Yes Safety Concerns: Feels Safe At This Time Childhood Exposure to Second-Hand Smoke: No Diet: regular Diet Comment: diabetic caffeine: Yes during the past year weight has: other Dental Care, Regularly: Yes Physical Activity Frequency: Daily Seatbelt Use: always Sunscreen Use: Yes Assistive Devices: Crutches and Wheelchair Assistive Devices Comment: b/l diabetic shoes/boots Review of Systems Review of Systems: All systems reviewed & are unremarkable except as noted in HPI & below Constitutional: no fever, no chills, no fatigue and no weakness Eyes: no problem reported Ear, Nose, Mouth, Throat: no problem reported Respiratory: no problem reported Cardiovascular: + edema; no calf pain and no problem rep orted Gastrointestinal: no nausea, no vomiting and no problem reported Musculoskeletal: + deformity and + limited range of motio n; no muscle atrophy and no problem reported Integumentary: + skin ulcer and + wounds; no new lesion s and no erythema Neurologic: + loss of sensation, + numbness and + pa resthesia; no generalized weakness Local pain to Charcot joints Psychiatric: no problem reported Physical Exam Physical Exam: Bilateral lower extremity focused exam: DP/PT pulses 2/4 bilaterally. CFT is brisk to the digits. Atrophic changes are noted to the skin overall with absent hair growth noted. There is no distal cooling noted, however. Protective sensation is absent to the foot though subjective pain noted on palpation of the left midfoot joint and plantar ulcer. There is diffuse numbness noted to the bilateral lower extremity with no pain on palpation of the right foot. There is calcaneal cuboid subluxation noted bilaterally, worse and more advanced on the left. This does correlate with the advanced imaging as well. Left foot ulceration is essentially healed at this point with only pinpoint serous drainage noted to a small area of immature skin at the medial aspect of the ulcer. Right foot ulcer measures 0.5 x 1.0 cm with 100% granular base, scant serous drainage, and no local evidence of infection. Overall, remarkably improved from prior visit with us. Constitutional: well nourished, + acute distress, + ill appearing and + obese Eyes: PERRL, conjunctivae normal, anicteric sclerae ENMT: external ear and nose normal, oropharynx normal Mouth: + poor dentition Neck: trachea midline, no thyromegaly Respiratory: normal respiratory effort; no respiratory distress Cardiovascular: Rate/Rhythm: regular rate and regular rhythm Vessels: normal peripheral pulses, posterior tibial pulses present and dorsalis pedis pulses present Extremities: normal capillary refill and + pedal edema Gastrointestinal (Abdomen): Inspection/Auscultation: abdomen normal to inspection Musculoskeletal: no cyanosis or clubbing, extremities motor strength 5/5 Head/Neck/Chest: normocephalic and head atraumatic Spine: + limited cervical ROM Extremities: + limited ROM of extremities and + foot abnormality Gait: + antalgic gait Ankle: + deformity and + limited ROM of ankle Skin: no rashes, warm and dry + ulcer (Significantly improved in size, quality over last two months) and + wound; no erythema and no fluctulance Trauma: no evidence of skin trauma Neurologic: moves all extremities; + abnormal sensation to monofilament Psychiatric: A+Ox3, euthymic affect Results & Data Vital Signs (Past 12 Hours) Vital Signs Temp Pulse Pulse Pulse Resp BP Pulse Ox 08/21/24 16:54 69 168/91 H 96 08/21/24 16:00 74 08/21/24 15:13 36.5 C 72 18 178/93 H 95 08/21/24 12:31 178/96 H 08/21/24 11:30 36.4 C L 72 14 180/101 H 98 O2 Del Method 08/21/24 16:54 Room Air 08/21/24 16:00 08/21/24 15:13 Room Air 08/21/24 12:31 08/21/24 11:30 Room Air
--- NOTE | 2024-08-22 00:31 | Magnetic Resonance Report ---
Exam(s): MRI LEFT FOOT Without Contrast EXAM: MR Left Lower Extremity Without Intravenous Contrast, Foot CLINICAL HISTORY: Reason for exam: OM vs charcot. TECHNIQUE: Multiplanar magnetic resonance images of the left foot without intravenous contrast. COMPARISON: No relevant prior studies available. FINDINGS: There is advanced arthropathy involving the hindfoot and midfoot articulations with multifocal erosions involving the tarsal bones, malalignment of the midfoot articulations, and polyostotic bone marrow signal abnormality, greatest in the navicular, talus, calcaneus, cuboid, and cuneiforms, but with additional signal abnormality extending into metatarsal bases 2-5 as well as the distal tibia and fibula. There are multicompartment joint effusions. Altogether findings are most suggestive of Charcot arthropathy. It is difficult to completely exclude septic arthritis in this setting and clinical correlation is necessary. Distal metatarsal bones and the phalanges demonstrate normal signal intensity, without evidence of osteomyelitis, fracture, or dislocation. IMPRESSION: Advanced arthropathy of the hindfoot and midfoot articulations with marrow signal changes, joint effusions, osseous fragmentation, and polyarticular malalignment. Appearance is most suggestive of Charcot arthropathy. Is difficult to completely exclude superimposed septic joint. Electronically signed by: Greg Varela M.D. 08/22/24 00:30 AM
[2024-08-22 06:28] LABS: Hematocrit (blood only) 41.6 % (42.0-52.0); Hemoglobin 12.3 g/dl (14.0-18.0); Mean Corpuscular Hemoglobin 22.3 pg (25.0-34.0); Mean Corpuscular Hgb Conc 29.6 g/dL (32.0-36.0); Mean Corpuscular Volume 75.5 fL (80.0-100.0); Mean Platelet Volume 8.4 fL (9.4-12.4); Platelet Count 86 K/uL (130-400); RDW Coefficient of Variation 19.9 % (11.5-14.5); RDW Standard Deviation 51.7 fL (36.4-46.3); Red Blood Count 5.51 M/uL (4.70-6.10); White Blood Count 3.39 K/ul (4.8-10.8)
[2024-08-22 06:49] LABS: Albumin Globulin Ratio 1.1 (0.9-2); Albumin Level 3.5 gm/dl (3.4-5.0); BUN Creatinine Ratio 15.8 (10-20); Bilirubin,Total 0.5 mg/dl (0.2-1.0); Calcium 9.1 mg/dl (8.6-10.3); Creatinine Clr Calc Pharmacy 109.8 ml/min; Globulin 3.1 gm/dl (2.5-4.0); Magnesium 1.4 mg/dl (1.7-2.4); Potassium 4.2 mmol/L (3.5-5.1); Total Protein 6.6 gm/dl (6.0-8.3)
[2024-08-22 07:34] VITALS: BP 150/91; RESP 18; TEMP 97.9; O2SAT 96
[2024-08-22 09:54] VITALS: PULSE 72
[2024-08-22 10:00] LABS: Ovalocytes 1+; Polychromasia 1+; Tear Drop Cells 1+
[2024-08-22 10:02] LABS: Basophils # (auto) 0.01 K/uL (0.00-0.20); Basophils % (auto) 0.3 %; Eosinophils # (auto) 0.07 K/uL (0.00-0.50); Eosinophils % (auto) 2.1 %; Immature Granulocytes # (auto) 0.02 K/uL (0.01-0.20); Immature Granulocytes % (auto) 0.6 %; Lymphocytes % (auto) 53.1 %; Monocytes # (auto) 0.52 K/uL (0.11-0.59); Monocytes % (auto) 15.3 %; Neutrophils # (auto) 0.97 K/uL (1.40-6.50); Neutrophils % (auto) 28.6 %
--- NOTE | 2024-08-22 11:28 | Discharge Summary ---
Date of Service August 22, 2024 Admission HPI Per Admitting Provider Bernard Jones is a medically complex but stable 38y/o M with PMHx significant for osteomyelitis of the left foot, simultaneous pancreas-kidney transplant in 2020 due to ESRD in the setting of underlying type 1 DM on chronic immunosuppression therapy, necrolytic acral erythema, stable proliferative diabetic retinopathy of both eyes associated with type 1 DM, Charcot neuroarthropathy of both feet, HTN, HLD, venous stasis of both lower extremities, seizure disorder, history of drug abuse on chronic methadone therapy, history of hepatitis C virus infection cured after antiviral drug therapy and JOB who presented to the ED from home via recommendation by his PCP after routine outpatient lab work revealed new-onset neutropenia. History obtained from the patient, discussion with ED provider and extensive chart review. Patient seen at bedside with Dr. Yousif. Had non-healing ulcer of left foot. Underwent bone resection with bone biopsy performed by Dr. Martino on 05/20/25. Bone biopsy revealed acute osteomyelitis. Bone culture grew few Proteus mirabilis, few Pseudomonas aeruginosa, moderate Clostridium perfringens and moderate Finegoldia magna. Follows with [facility] here in [place]. Primary infectious disease physician is Dr. Caridad Villa. Had right upper extremity PICC line placed on 07/23/24 here at [facility]. Currently on IV Zosyn 3.375gm Q6H for a total of 6 weeks. First dose of IV Zosyn was on 07/23/24, therefore EOT should be on or around 09/03/24. Patient reports being told to stop taking the IV Zosyn yesterday after his routine weekly outpatient lab work, which is conducted while on the antibiotic, revealed a new-onset neutropenia. States his most recent dose of Zosyn was yesterday morning, 08/19/24. Mentions he has weekly home health visits which were arranged through [facility]; unsure of which agency. He was ultimately referred to the ED for further evaluation of his neutropenia. Offers no overt complaints. Denies any SOB, chest pain, congestion, abdominal pain, diarrhea, dysuria, hematuria, hematochezia/melena, fevers, chills or body aches. Mentions he sees wound care every 2 weeks at [facility]. He wears orthotic boots on both of his feet on a daily basis for ambulation given his history of Charcot neuroarthropathy of both feet. States the ulcera tion on his left foot is healing nicely. No drainage or erythema surrounding his incision site. Mentions he has an ulceration on the bottom of his right foot as well but denies any drainage from it. States that he keeps bandaging over both ulcerations at all times as advised by the wound clinic. No alcohol abuse. Does use chewing tobacco on a daily basis. No recreational drug use such as marijuana. No recent changes in appetite. Former narcotic abuse. On chronic methadone therapy. Follows with outpatient methadone clinic for this. He is on CellCept 750mg BID and Prograf 1mg QAM/0.5mg QPM. Prograf goal level of 6-9ng/mL. Now following with Dr. Rosie Merrill of [facility] in [place]. Recently saw her on 08/13/24. Admission Exam Per Admitting Provider General: Chronically ill-appearing M, NAD, sitting up in bed, pleasant but somewhat flat affect. A+Ox3. Cardiovascular: Regular rate, regular rhythm. +2-3/6 holosystolic murmur heard best in RUSB. BLE venous stasis changes. Abdomen/GI: Normoactive bowel sounds, soft, nondistended, nontender to palpation in all quadrants. MSK/Extremities: Pictures as per below. Former LUE fistula for prior dialysis visualized and without erythema/tenderness to palpation. Principal Diagnosis (1) Neutropenia: (2) Charcot arthropathy: (3) Ulcer of right foot: (4) Thrombocytopenia: (5) Osteomyelitis of left foot: Discharge Exam Constitutional: WD/WN, vitals as above, NAD, sitting up in bed, pleasant, conversing easily Respiratory: normal respiratory effort, lungs clear to auscultation, no wheeze, rales, rhonchi. Normal insp/exp effort, no accessory muscle use Cardiovascular: RRR, no murmur, no edema Vessels: no JVD or carotid bruit Chest: normal inspection of chest Abdomen: normal bowel sounds, soft, nontender, no hepatosplenomegaly Musculoskeletal: Healing ulcer in dorsal aspect of bilateral lower extremity. Neurologic: PERRL, EOMI, accommodation nl, no face palsy, no dysarthria CN's II- XI intact bilaterally and moves all extremities Psychiatric: A+Ox3, euthymic affect Discharge Data Allergies Allergy/AdvReac Type Severity Reaction Status Date / Time sulfamethoxazole Allergy Intermediate Rash Verified 07/23/24 08:59 [From Bactrim] trimethoprim [From Bactrim] Allergy Intermediate Rash Verified 07/23/24 08:59 Consultations 08/20/24 18:10 ED Decision to Admit Stat 08/20/24 21:03 Consult Infectious Diseases Routine 08/21/24 08:03 Consult Podiatry Routine Ordered Studies 08/20/24 19:56 MRI Foot [MR foot RT w/o con] Stat 08/21/24 01:19 US venous doppler LE BI Urgent 08/21/24 15:35 MR foot LT w/o con Routine Hospital Course (1) Neutropenia: (2) Charcot arthropathy: (3) Ulcer of right foot: (4) Thrombocytopenia: (5) Osteomyelitis of left foot: (6) Immunosuppressed status: (7) History of simultaneous kidney and pancreas transplant: (8) History of substance abuse: (9) Hypertension: (10) Hyperlipidemia: Plan Patient with hx of Charcot foot, had non-healing ulcer of left foot. Underwent bone resection with bone biopsy performed by Dr. Martino on 05/20/25. Bone biopsy revealed acute osteomyelitis. Bone culture grew few Proteus mirabilis, few Pseudomonas aeruginosa, moderate Clostridium perfringens and moderate Finegoldia magna. Follows with [facility] here in [place]. Primary infectious disease physician is Dr. Caridad Villa. Had right upper extremity PICC line placed on 07/23/24 here at [facility]. Currently on IV Zosyn 3.375gm Q6H for a total of 6 weeks. First dose of IV Zosyn was on 07/23/24, therefore EOT should be on or around 09/03/24. He reports being told to stop taking the IV Zosyn yesterday after his routine weekly outpatient lab work revealed a new-onset neutropenia and thrombocytopen ia. Neutropenia, thrombocytopenia likely secondary to Zosyn. I discussed his case with his cell room operator Dr. Grimm as well as Dr. Villa from infectious disease. Both mentioned that patient has not followed up and has been noncompliant. As per Dr. Villa, recommendation was made to stop IV antibiotic and have him follow-up as outpatient. Also recommended removing PICC line. MRI of the foot did not show any acute osteomyelitis. Discussed with Stephen infectious disease; given patient's history of noncompliance and given that the wound has healed well- plan to change to p.o. ciprofloxacin and Flagyl. PICC line was removed. I discussed with patient regarding possible side effects/adverse reaction associated with the oral antibiotics. I reiterated importance of following up with his PCP and repeating CBC. He will need to repeat CBC, BMP, CRP and ESR for next 3 weeks while he is on antibiotics. He will also need referral to hematology if the neutropenia and thrombocytopenia persist. Also discussed risks of neutropenia and the risks of life-threatening illness that could result from it. I discussed that he needs to seek medical attention immediately if you start to experience fatigue, weakness, fever, cough, shortness of breath, abdomen pain or urinary symptoms. Please note the above document was generated using voice recognition software. It may contain grammatical, syntax or spelling errors. Any formal questions or concerns about the content, text or information contained within the body of this dictation should be directly addressed to the provider for clarification Total Time Total Time Spent Total Time Spent (In Minutes): 45 Total Time Includes: Examination of the Patient, Discharge Planning, Medication Reconciliation, Communication With Other Providers and Other Discharge Plan Discharge Items Patient Disposition: Home - Self-Care Reason For Visit: NEUTROPENIA, L FOOT OSTEOMYELITIS Discharge Diagnosis: Neutropenia Thrombocytopenia Left foot osteomyelitis Activity: Resume your previous activity Non-emergency contact: Primary Care Provider Call non-emergency contact if: you have any medication questions and your symptoms worsen Follow-up/Referrals: Ryan Leyva MD [Primary Care Provider] - (Date & Time 08/26/2024 11:00 AM Provider: Ryan Leyva MD [facility] ) Diet: Regular Addtl Attending Provider Instructions: You were admitted to the hospital with low blood count (WBC and platelet). The likely cause was thought secondary to the IV antibiotic. Infectious disease evaluated you and recommended following medication; Ciprofloxacin 750 mg every 12 hours for 20 days Flagyl 500 mg every 8 hours for 20 days While you are on antibiotic, you will need weekly CBC, BMP every Saturday which should be reviewed by your primary care doctor. If your blood counts are still low; will need referral to hematology for further evaluation. Pending Studies at Discharge: No Stand-Alone Forms: My [facility], Smoking Cessation Medications and DC Order Prescriptions: New metronidazole 500 mg Tablet 500 mg PO TID 20 Days Qty: 60 0RF ciprofloxacin HCl 750 mg tablet 750 mg PO BID 20 Days Qty: 40 0RF Continued clonazepam 0.5 mg tablet 1 mg PO TID mycophenolate mofetil 250 mg capsule 750 mg PO BID Rx Instructions: 3 caps (250 each cap) BID rosuvastatin 10 mg tablet 10 mg PO QAM Hold Instructions: Resume on 06/20/23. Hold until you are completed with your IV antibiotic therapy carvedilol [Coreg] 6.25 mg tablet 6.25 mg PO BID Qty: 20 2RF Rx Instructions: must administer with a meal/food tacrolimus 1 mg Capsule 1 mg PO QAM Hold Instructions: Resume on 07/10/23. Hold until directed by your transplant team zinc sulfate [Orazinc] 50 mg zinc (220 mg) Capsule 220 mg PO QAM Qty: 30 0RF methadone 10 mg/5 mL Solution 105 mg PO QAM furosemide 20 mg tablet 20 mg PO QAM PRN (Reason: NEEDED PER MARIAHER) pregabalin 75 mg capsule 75 mg PO TID amlodipine 5 mg tablet 5 mg PO QAM tacrolimus 0.5 mg capsule 0.5 mg PO QPM Rx Instructions: This dose is per patient. tamsulosin 0.4 mg Capsule 0.4 mg PO QAM Qty: 0 0RF Held aspirin 325 mg tablet 325 mg PO QAM Hold Instructions: Resume on 08/28/24. Hold till you see your primary care doctor and repeat blood count Discontinued piperacillin-tazobactam 40.5 gram recon soln 40.5 g IV UD Rx Instructions: per pt, medication is on hold Discharge Orders: Discharge Order (Routine); Ordered 08/22/24 Ordered By: Bryant Pandya/Other Patient Handouts: Nutrition for Wound Healing, Special Foot Care for Diabetes Admission Data Admit Date/Time: 08/20/24 20:20 Attending Provider: Bryant Almendarez Admit Provider: Rober Yousif Primary Care Provider: Ryan Leyva Other Providers: Rober Yousif; Johnny Alicea; Skye Samson; Gio Multani I.; Palomo Mccoy II; Radha Boyd; Zi Elias; Craig Jenkins; Naeem Lou; Adrian Hernandez; Angel Martino; Cameron Cadet Other Interventions: Discharge Summary Assessment (RN) Last Done: 08/22/24 09:54
[2024-08-24 08:18] LABS: Hypochromasia Present; Microcytosis Present
[2024-08-24 15:56] LABS: MPA Glucuronide 60.2 mcg/mL (35.0-100.0); Mycophenolic Acid 0.8 mcg/mL (1.0-3.5)
== END 2024-08-22 10:51 | disposition home health service (06) | DRG 809 ==
LOC: ED 15:25 → SUATTDRO 20:20 → 2W 20:20